=== PATIENT | female | born 1995 | race Caucasian/White ===

== ENCOUNTER 2017-01-09 19:35 | Emergency (ER) | payer OTHER ==
[~2017-01-09] VITALS: Ht 157.5 cm; Wt 52.3 kg
[2017-01-09] MEDS ORDERED: KETOROLAC 30 MG/ML VIAL (J1885) IV ONE (21:15)
[2017-01-09] MEDS ORDERED: NS 1,000 ML IV ONE (21:15)
[2017-01-09] MEDS ORDERED: ONDANSETRON 4MG/2ML VIAL (J2405) IV ONE (21:15)
[2017-01-09] MEDS ORDERED: PANTOPRAZOLE 40MG INJ (PROTONIX) (C9113) IV ONE (21:15)
[2017-01-09 21:48] LABS: BASO % 0.1 % (0.0-1.0); EOS # 0.1 K/mm3 (0.0-0.50); EOS % 0.4 % (0.0-3.0); LARGE UNSTAINED CELL # 0.1 K/mm3 (0.0-0.4); LARGE UNSTAINED CELL % 0.7 % (0.0-4.0); LYMPH # 1.1 K/mm3 (1.5-6.5); LYMPH % 5.5 % (24.0-44.0); MEAN CORPUSCULAR HEMOGLOBIN 31.4 pg (27.0-33.0); MEAN CORPUSCULAR HGB CONC 34.8 g/dl (32.0-36.5); MEAN CORPUSCULAR VOLUME 90.1 fl (80.0-96.0); MONO # 0.9 K/mm3 (0.0-0.8); NEUTROPHILS # 15.7 K/mm3 (1.8-7.7); NEUTROPHILS % 88.3 % (36.0-66.0); PLATELET COUNT, AUTOMATED 314 k/mm3 (150-450); RED CELL DISTRIBUTION WIDTH 12.6 % (11.5-14.5); WHITE BLOOD COUNT 17.8 K/mm3 (4.0-10.0)
[2017-01-09 21:55] LABS: CONTROL LINE HCG INT CTR LINE PRESENT
[2017-01-09 22:03] LABS: ALBUMIN 5.3 GM/DL (3.2-5.2); ALBUMIN/GLOBULIN RATIO 1.36 (1.00-1.93); ALKALINE PHOSPHATASE 74 U/L (45-117); ALT/SGPT 35 U/L (12-78); AMYLASE 102 U/L (25-115); ANION GAP 22 MEQ/L (8-16); AST/SGOT 27 U/L (15-37); BILIRUBIN,DIRECT 0.4 MG/DL (0.0-0.2); BILIRUBIN,TOTAL 1.5 MG/DL (0.2-1.0); BLOOD UREA NITROGEN 31 MG/DL (7-18); CALCIUM LEVEL 9.9 MG/DL (8.5-10.1); CARBON DIOXIDE LEVEL 21 MEQ/L (21-32); CHLORIDE LEVEL 96 MEQ/L (98-107); CREATININE FOR GFR 1.45 MG/DL (0.55-1.02); GLOMERULAR FILTRATION RATE 48.5 (>60); GLUCOSE, FASTING 119 MG/DL (70-105); POTASSIUM SERUM 4.1 MEQ/L (3.5-5.1); SODIUM LEVEL 139 MEQ/L (136-145); TOTAL PROTEIN 9.2 GM/DL (6.4-8.2)
[2017-01-09 23:22] LABS: METHADONE URINE NEGATIVE (NEGATIVE)
[2017-01-09] MEDS ORDERED: ZOFR4TAB3 PO (23:25)
[2017-01-09 23:29] VITALS: BP 122/68
--- NOTE | 2017-01-10 08:08 | REP ---
ABDOMEN, FLAT AND UPRIGHT; PA CHEST, TWO VIEWS: HISTORY: Abdominal pain. A small amount of air is present in small and large intestine. There are no air fluid levels or dilated loops of intestine. There is no pneumoperitoneum. The lungs are clear. IMPRESSION: Nonspecific bowel gas pattern. Signed by Gianni Looney MD 01/10/2017 08:23 A
[2017-01-10] MEDS ORDERED: ONDA4TAB6 PO (15:55)
[2017-01-10] MEDS ORDERED: ALEV220T26 PO (15:55)
== END 2017-01-09 23:31 | disposition home or self-care (01) ==
LOC: M ED 19:35
DX: K29.70 Gastritis, unspecified, without bleeding (principal); E86.0 Dehydration; R11.2 Nausea with vomiting, unspecified; E73.9 Lactose intolerance, unspecified
CPT/HCPCS: 74022; 80048; 80076; 80307; 80320; 81001; 82150; 83690; 84703; 85025; 87088; 96361; 96374; 96375; 99283; C9113; J1885; J2405

== ENCOUNTER 2017-01-10 12:24 | Observation (INO) | payer OTHER ==
[~2017-01-10] VITALS: Ht 157.5 cm; Wt 54.1 kg
[~2017-01-10 12:24] MED LIST: ZOFR4TAB3 PO
[2017-01-10] MEDS ORDERED: NS 1,000 ML IV ONE ×3 (13:45→17:45)
[2017-01-10] MEDS ORDERED: ONDANSETRON 4MG/2ML VIAL (J2405) IV ONE (13:45)
[2017-01-10] MEDS ORDERED: KETOROLAC 30 MG/ML VIAL (J1885) IV ONE (14:00)
[2017-01-10 14:11] LABS: BASO % 0.2 % (0.0-1.0); EOS % 0.2 % (0.0-3.0); LARGE UNSTAINED CELL # 0.2 K/mm3 (0.0-0.4); LARGE UNSTAINED CELL % 0.9 % (0.0-4.0); LYMPH # 1.3 K/mm3 (1.5-6.5); LYMPH % 6.1 % (24.0-44.0); MEAN CORPUSCULAR HEMOGLOBIN 31.3 pg (27.0-33.0); MEAN CORPUSCULAR HGB CONC 34.7 g/dl (32.0-36.5); MEAN CORPUSCULAR VOLUME 90.2 fl (80.0-96.0); MONO # 0.9 K/mm3 (0.0-0.8); MONO % 4.6 % (0.0-5.0); NEUTROPHILS # 16.3 K/mm3 (1.8-7.7); PLATELET COUNT, AUTOMATED 287 k/mm3 (150-450); RED CELL DISTRIBUTION WIDTH 12.6 % (11.5-14.5); WHITE BLOOD COUNT 18.5 K/mm3 (4.0-10.0)
[2017-01-10 14:58] LABS: ALBUMIN 4.8 GM/DL (3.2-5.2); ALBUMIN/GLOBULIN RATIO 1.26 (1.00-1.93); ALKALINE PHOSPHATASE 63 U/L (45-117); ALT/SGPT 34 U/L (12-78); AMYLASE 67 U/L (25-115); ANION GAP 20 MEQ/L (8-16); AST/SGOT 28 U/L (15-37); BILIRUBIN,DIRECT 0.4 MG/DL (0.0-0.2); BILIRUBIN,TOTAL 1.7 MG/DL (0.2-1.0); BLOOD UREA NITROGEN 22 MG/DL (7-18); CALCIUM LEVEL 9.5 MG/DL (8.5-10.1); CARBON DIOXIDE LEVEL 18 MEQ/L (21-32); CHLORIDE LEVEL 104 MEQ/L (98-107); GLOMERULAR FILTRATION RATE > 60.0 (>60); GLUCOSE, FASTING 86 MG/DL (70-105); POTASSIUM SERUM 3.5 MEQ/L (3.5-5.1); SODIUM LEVEL 142 MEQ/L (136-145); TOTAL PROTEIN 8.6 GM/DL (6.4-8.2)
[2017-01-10] MEDS ORDERED: ONDA4TAB6 PO (15:55)
[2017-01-10] MEDS ORDERED: ALEV220T26 PO (15:55)
[2017-01-10] MEDS ORDERED: PERCOCET 5MG/325MG TAB PO PRN (17:15)
[2017-01-10] MEDS ORDERED: GI COCKTAIL 50ML BTL(HYOSCYAMINE/MAALOX/LIDOCAINE VISCOUS)(1:3:1) PO ONE (17:45)
[2017-01-10] MEDS ORDERED: SUCRALFATE 1 GM TAB PO ONE (17:45)
[2017-01-10] MEDS ORDERED: NS 1,000 ML IV SCH (19:00)
[2017-01-10 19:06] VITALS: BP 121/76
[2017-01-10 20:00] VITALS: BP 127/77
[2017-01-10] MEDS ORDERED: MULTIVITAMIN -ADULT INJECTION 10 ML, THIAMINE INJection 100 MG, FOLIC ACID 1 MG in NS 1... IV ONE (20:00)
--- NOTE | 2017-01-10 20:01 | HPEPDOC ---
General Date of Admission Jan 10, 2017 at 17:42 Other Providers PCP: Unknown Attending Physician: ALEJANDRO MCGINNIS Chief Complaint The patient is a 21-year-old female admitted with a reason for visit of Increased Anion Gap Metabolic Acidosis. History of Present Illness Patient is a 21-year-old female with past medical history significant for lactose intolerance presents to the ER today with nausea vomiting and abdominal pain. Patient's symptoms all started on in the morning approximate 10 AM. Patient states she denied eating any unusual or do anything unusual at that time. She started vomiting with oral intake. Patient tried sipping liquids or even ice chips and nothing was able to stay down. Patient stated that the doubt patient also started occurring around same time. Pain is all over and feels pokey. It makes her want to cry. Patient describes that with vomiting she has burning from her abdomen up to the chest. Denies any pleuritic chest pain. Patient visited to seeing blood in her vomit once when she was in the ER last night. Stated only happened that one time. Did not happen since leaving the ER yesterday. Patient was given IV fluids and Zofran while in the emergency room. She was sent home on Zofran. Today patient stated that she vomited 8 times at home. Still can't keep anything down. Feels that burning in her chest and is hard to swallow. Hard to keep anything down due to the vomiting. The Zofran did not help. Patient reports also not having pooped in 3 days. Patient denies diarrhea. Patient is a tried anything for the abdominal pain. Patient only takes Aleve with monthly, for cramps. Home Medications Scheduled Pantoprazole Sodium Sesquihydr (Protonix) 40 Mg Tab, 40 MG PO DAILY Scheduled PRN (Naproxen Sodium) 220 Mg Cap, 220 MG PO Q12HP PRN for pain Ondansetron (Ondansetron Odt) 4 Mg Tab, 4 MG PO Q4H PRN for NAUSEA, (Reported) Allergies Coded Allergies: No Known Drug Allergy (Verified Allergy, Unknown, 01/09/17) Lactose Intolerance (GI) (Verified Adverse Reaction, Intermediate, 01/10/17 ) Past Medical History Medical History lactose intolerance Surgical History Tympanostomy Tubes Adenoidectomy Family History Mother: Alive Father: Alive Social History * Smoker: Denies Alcohol: occationally (patient is to drinking 5-6 beers on Thursday. Admits to drinking every couple weeks. Denies drinking more than that.) Drugs: denies (denies illicit drugs. Denies marijuana use. (parents are in the room)) Recent Travel/Sick Contacts: Denies: Recent travel, Recent sick contacts No other food allergies. No travel outside and states. Review of Symptoms Constitutional: Denies: Chills, Fever Eyes: Denies: Vision change ENT: Denies: Head Aches, Ear Pain Skin: Denies: Lesions, Jaundice Pulmonary: Denies: Dyspnea, Cough, Pleuritic Chest Pain Cardiovascular: Reports: Other Symptoms (burning pain from the abdomen through chest.) Gastrointestinal: Reports: Nausea, Vomiting, Abdominal Pain (diffuse all over. Per HPI.), Constipation (constipated for 3 days.), Denies: Diarrhea Genitourinary: Denies: Dysuria, Frequency Hematologic: Denies: Bruising, Bleeding Excessively Musculoskeletal: Denies: Neck Pain, Back Pain Neurological: Denies: Weakness, Numbness Psych: Reports: Mood Normal Physical Examination General Exam: Positive: Alert, Cooperative, Mild Distress Eye Exam: Positive: PERRLA, Conjunctiva & lids normal, EOMI, Negative: Sclera icteric, Ptosis ENT Exam: Positive: Atraumatic, Pharynx Normal, Tongue Midline, Nares Patent, Other ENT (No tonsilar exudates, some erythema. ) Neck Exam: Positive: Supple, Negative: JVD, thyromegaly Chest Exam: Positive: Clear to auscultation, Normal air movement Heart Exam: Positive: Rate Normal, Normal S1, Normal S2, Negative: Murmurs, Rubs Telemetry: Positive: No significant arrhythmia Abdomen Exam: Positive: Normal bowel sounds, Soft, Negative: Tenderness, Hepatospenomegaly Extremity Exam: Positive: Normal pulses (Radial pulse 2/4 bilaterally. ), Negative: Clubbing, Cyanosis, Edema Skin Exam: Positive: Nl turgor and temperature, Negative: Rash, Breakdown Neuro Exam: Positive: Normal Gait, Normal Speech Psych Exam: Positive: Mental status NL, Mood NL, Oriented x 3 Vital Signs Vital Signs Date Time Temp Pulse Resp B/P (MAP) Pulse Ox O2 Delivery O2 Flow Rate FiO2 01/10/17 19:06 99.0 53 16 121/76 (91) 100 Room Air Height (in): 62 Weight (kg): 52.73 BMI (kg): 21.3 Laboratory Data Labs 24H Laboratory Tests 2 01/10/17 13:38: White Blood Count 18.5H, Red Blood Count 5.08, Hemoglobin 15.9, Hematocrit 45.8 , Mean Corpuscular Volume 90.2, Mean Corpuscular Hemoglobin 31.3, Mean Corpuscular Hemoglobin Concent 34.7, Red Cell Distribution Width 12.6, Platelet Count 287, Neutrophils (%) (Auto) 88.0H, Lymphocytes (%) (Auto) 6.1L, Monocytes (%) (Auto) 4.6, Eosinophils (%) (Auto) 0.2, Basophils (%) (Auto) 0.2, Neutrophils # (Auto) 16.3H, Lymphocytes # (Auto) 1.3L, Monocytes # (Auto) 0.9H, Eosinophils # (Auto) 0.0, Basophils # (Auto) 0.0, Large Unclassified Cells % 0.9 , Large Unclassified Cells # 0.2, Anion Gap 20H, Glomerular Filtration Rate > 60.0, Calcium Level 9.5, Aspartate Amino Transf (AST/SGOT) 28, Alanine Aminotransferase (ALT/SGPT) 34, Alkaline Phosphatase 63, Total Bilirubin 1.7H, Direct Bilirubin 0.4H, Total Protein 8.6H, Albumin 4.8, Albumin/Globulin Ratio 1.26, Amylase Level 67, Lipase 210, Salicylates Level < 1.7L 01/10/17 14:07: Urine Appearance HAZY, Urine Color YELLOW, Urine pH 5.0, Urine Specific Sup[place] 1.031, Urine Protein 1+H, Urine Glucose (UA) NEGATIVE, Urine Ketones 2+H, Urine Urobilinogen 0.2, Urine Bilirubin NEGATIVE, Urine Leukocyte Esterase NEGATIVE, Urine Blood 1+H, Urine Nitrite NEGATIVE, Urine WBC (Auto) 3, Urine RBC (Auto) 1 , Urine Hyaline Casts (Auto) 0, Urine Bacteria (Auto) NEGATIVE, Urine Squamous Epithelial Cells 6, Urine Mucus (Auto) SMALL, Urine Sperm (Auto) 01/10/17 15:47: Lactic Acid Level 0.9 CBC/BMP Laboratory Tests 01/10/17 13:38 Red Blood Count 5.08, Mean Corpuscular Volume 90.2, Mean Corpuscular Hemoglobin 31.3, Mean Corpuscular Hemoglobin Concent 34.7, Red Cell Distribution Width 12.6 , Neutrophils (%) (Auto) 88.0 H, Lymphocytes (%) (Auto) 6.1 L, Monocytes (%) ( Auto) 4.6, Eosinophils (%) (Auto) 0.2, Basophils (%) (Auto) 0.2, Neutrophils # ( Auto) 16.3 H, Lymphocytes # (Auto) 1.3 L, Monocytes # (Auto) 0.9 H, Eosinophils # (Auto) 0.0, Basophils # (Auto) 0.0 Microbiology Microbiology 01/10/17 Group A Streptococcus Screen (MOHAMUD), Received Pending 01/10/17 Urine Culture, Received Pending Assessment/Plan 1. Abdominal pain/ nausea/ vomiting: Patient has normal lactic acid level. Unable to maintain oral intake at home. CT scan abdomen NAD. Starting patient on IV Zofran, Carafate and one time GI cocktail, to help with nausea, burning with vomiting. Starting patient on clear liquid diet. Starting patient on Percocet q6h for pain. Possible causes include gastritis, binge drinking, marijuana use, liver/GB pathology. 2. Metabolic acidosis with high anion gap Patient has elevated anion gap with ketones in her urine. BUN elevated. May be secondary to patient hypovolemia due to vomiting and decrease oral intake causing elevated BUN. Patient on IV NS at this time. Rechecking CMP in the morning. Monitor patient's volume status. May also be due to aspirin toxicity, checking patient's salicylate level. 3. Binge drinking Patient admitted to drinking 5-6 beers on Thursday evening. Administering patient banana bag for patient to receive some thiamine. 4. Elevated bilirubin Patient has elevated total bilirubin on labs. Ordering right upper quadrant ultrasound to rule out potential causes of her abdominal pain. 5. Leukocytosis Elevated WBC on labs. May be secondary to nausea and vomiting. Patient is afebrile. Repeat CBC in morning. Monitor clinically. 6. Marijuanna positive drug screen Cannabinoids positive on urine drug screen from previous ER visit. Patient denies use. May be contributing to patient's nausea and vomiting. Potential cyclic vomiting. May consider obtaining history of marijuana use without parents in room. Plan / VTE VTE Prophylaxis Ordered?: Yes (sequentials) GME ATTESTATION GME ATTESTATION My preceptor for this patient encounter was physically present in the building during the encounter and was fully available. As needed, all aspects of the patient interview, examination, medical decision making process, and medical care plan development were reviewed and approved by the preceptor. Preceptor is aware and concurs with the plan as stated in the body of this note and will attest to such by his/her co-signature. ATTENDING NOTE I have seen and examined the above patient and agree with the assessment and plan as documented above. LORE KING DO Jan 10, 2017 19:41 ALEJANDRO MCGINNIS Jan 23, 2017 10:52
[2017-01-10] MEDS: ONDANSETRON 4MG/2ML VIAL (J2405) IV PRN ×2 (20:10→23:59)
[2017-01-10 23:45] VITALS: BP 156/79
[2017-01-11] VITALS: BP 132/72
[2017-01-11] MEDS: SUCRALFATE 1 GM TAB PO SCH ×5 (01:34→23:23)
[2017-01-11] MEDS ORDERED: METOCLOPRAMIDE INJ 10MG/2ML VIAL (J2765) IV ONE (01:45)
[2017-01-11 04:00] VITALS: BP 149/84
[2017-01-11] MEDS: ONDANSETRON 4MG/2ML VIAL (J2405) IV PRN (04:06)
[2017-01-11] MEDS ORDERED: NS 1,000 ML IV SCH (06:00)
--- NOTE | 2017-01-11 07:41 | REP ---
CT ABDOMEN AND PELVIS WITHOUT CONTRAST: HISTORY: Abdominal pain. The liver, gallbladder, pancreas, spleen, adrenal glands and kidneys are normal in appearance. There is no mass, adenopathy or free fluid. The visualized lungs are clear. The urinary bladder and uterus are normal in appearance. There is no free fluid in the pelvis. IMPRESSION: Normal CT abdomen and pelvis. Signed by Gianni Looney MD 01/11/2017 08:11 A
[2017-01-11 08:00] VITALS: BP 134/86
[2017-01-11 08:34] LABS: MEAN CORPUSCULAR HEMOGLOBIN 32.3 pg (27.0-33.0); MEAN CORPUSCULAR HGB CONC 34.5 g/dl (32.0-36.5); MEAN CORPUSCULAR VOLUME 93.6 fl (80.0-96.0); RED CELL DISTRIBUTION WIDTH 12.6 % (11.5-14.5); WHITE BLOOD COUNT 9.6 K/mm3 (4.0-10.0)
--- NOTE | 2017-01-11 08:50 | REP ---
Chest one-view HISTORY: Infiltrate Comparison: 01/09/2017 The lungs are clear. The heart is normal in size. The pulmonary vasculature is normal in appearance. Impression: No acute disease. Signed by Gianni Looney MD 01/11/2017 08:41 A
[2017-01-11 08:52] LABS: ALBUMIN 3.4 GM/DL (3.2-5.2); ALBUMIN/GLOBULIN RATIO 1.21 (1.00-1.93); ALKALINE PHOSPHATASE 42 U/L (45-117); ALT/SGPT 25 U/L (12-78); ANION GAP 13 MEQ/L (8-16); AST/SGOT 17 U/L (15-37); BILIRUBIN,TOTAL 1.1 MG/DL (0.2-1.0); BLOOD UREA NITROGEN 12 MG/DL (7-18); CARBON DIOXIDE LEVEL 22 MEQ/L (21-32); CHLORIDE LEVEL 113 MEQ/L (98-107); CREATININE FOR GFR 0.48 MG/DL (0.55-1.02); GLOMERULAR FILTRATION RATE > 60.0 (>60); GLUCOSE, FASTING 76 MG/DL (70-105); MAGNESIUM LEVEL 2.2 MG/DL (1.8-2.4); SODIUM LEVEL 148 MEQ/L (136-145); TOTAL PROTEIN 6.2 GM/DL (6.4-8.2)
[2017-01-11 09:13] LABS: CALCIUM LEVEL 7.7 MG/DL (8.5-10.1)
--- NOTE | 2017-01-11 09:18 | REP ---
LIMITED ABDOMEN ULTRASOUND: HISTORY: Abdominal pain. There are no filling defects in the gallbladder. The gallbladder wall measures 2.7 mm. The common bile duct measures 2.3 mm. The liver and pancreas are normal in echogenicity. The right kidney measures 5.8 cm in transverse by 3.8 cm in AP by 10.3 cm in cephalocaudal dimensions. There is no hydronephrosis or mass. IMPRESSION: Normal abdominal ultrasound. Signed by Gianni Looney MD 01/11/2017 09:30 A
[2017-01-11] MEDS ORDERED: D5W/0.45% SODIUM CHLORIDE 1,000 ML IV SCH (11:00)
[2017-01-11] MEDS ORDERED: POTASSIUM CHLORIDE 10 MEQ SR TABLET PO ONE ×2 (11:00→12:30)
[2017-01-11] MEDS ORDERED: CALCIUM GLUCONATE 1,000 MG in D5W MINI-BAG PLUS 100 ML IV ONE (12:00)
--- NOTE | 2017-01-11 14:12 | IPNPDOC ---
Text Note Date of Service The patient was seen on 01/11/17. NOTE Subjective: Patient states nausea/vomiting/abdominal pain has resolved. Objective: Vitals: (see below) General: No acute distress, laying comfortably in bed. HEENT: Moist mucous membranes. Neck: No JVD or lymphadenopathy Cardiac: RRR, No murmurs Pulm: Clear to auscultation b/l. No wheezing, rhonchi Abd: NT/ND + BS Ext: No edema or cyanosis Labs (see below) Images: CT Abd/pelvis 01/11/17 IMPRESSION:Normal CT abdomen and pelvis. Abdominal ultrasound 01/11/17 IMPRESSION: Normal abdominal ultrasound. Chest x-ray 01/11/17 Impression: No acute disease. Assessment/Plan 1. Intractable abdominal pain/nausea/vomiting- likely secondary to alcohol use as well as marijuana use. Resolved. Patient tolerating clears and will advance diet as tolerated. If abdominal pain persists or recurs, we will need to address possible endoscopy. 2. Metabolic acidosis with anion gap - resolved. Likely secondary to alcohol intake. Continue IV fluids. 3. Leukocytosis- resolved. Likely secondary to the above. 4. Elevated bilirubin- resolved likely secondary to the above. Abdominal ultrasound negative for acute findings. 5. Marijuana/alcohol intake- cessation counseling 6. Electrolyte abnormalities- replaced. We'll continue to monitor. Continue IV fluids. DVT prophy: Out of bed and ambulate Plan to discharge in the next 24 hours if continues to improve and tolerate a regular diet. VS,Fishbone, I+O VS, Fishbone, I+O Laboratory Tests 01/11/17 06:38 Red Blood Count 3.96 L, Mean Corpuscular Volume 93.6, Mean Corpuscular Hemoglobin 32.3, Mean Corpuscular Hemoglobin Concent 34.5, Red Cell Distribution Width 12.6, Calcium Level 7.7 #L, Aspartate Amino Transf (AST/SGOT ) 17, Alanine Aminotransferase (ALT/SGPT) 25, Alkaline Phosphatase 42 L, Total Bilirubin 1.1 H, Total Protein 6.2 #L, Albumin 3.4 # Vital Signs Date Time Temp Pulse Resp B/P (MAP) Pulse Ox O2 Delivery O2 Flow Rate FiO2 01/11/17 08:00 99.4 64 18 134/86 (102) 100 Room Air I&O- Last 24 Hours up to 6 AM 01/11/17 05:59 Intake Total 3210 ml Output Total 350 ml Balance 2860 ml WILBUR OSPINA MD Jan 11, 2017 14:12
[2017-01-11 16:00] VITALS: BP 144/85
[2017-01-11 20:15] VITALS: BP 149/86
[2017-01-12 00:14] VITALS: BP 129/75
[2017-01-12] MEDS: ONDANSETRON 4MG/2ML VIAL (J2405) IV PRN (01:59)
[2017-01-12 06:53] LABS: MEAN CORPUSCULAR HEMOGLOBIN 31.6 pg (27.0-33.0); MEAN CORPUSCULAR HGB CONC 35.2 g/dl (32.0-36.5); MEAN CORPUSCULAR VOLUME 89.6 fl (80.0-96.0); RED CELL DISTRIBUTION WIDTH 11.9 % (11.5-14.5); WHITE BLOOD COUNT 7.3 K/mm3 (4.0-10.0)
[2017-01-12] MEDS: SUCRALFATE 1 GM TAB PO SCH (06:54)
[2017-01-12 07:11] LABS: ALBUMIN 3.4 GM/DL (3.2-5.2); ALBUMIN/GLOBULIN RATIO 1.13 (1.00-1.93); ALKALINE PHOSPHATASE 48 U/L (45-117); ALT/SGPT 114 U/L (12-78); ANION GAP 7 MEQ/L (8-16); AST/SGOT 80 U/L (15-37); BILIRUBIN,TOTAL 1.4 MG/DL (0.2-1.0); BLOOD UREA NITROGEN 6 MG/DL (7-18); CALCIUM LEVEL 8.4 MG/DL (8.5-10.1); CARBON DIOXIDE LEVEL 26 MEQ/L (21-32); CHLORIDE LEVEL 106 MEQ/L (98-107); CREATININE FOR GFR 0.43 MG/DL (0.55-1.02); GLOMERULAR FILTRATION RATE > 60.0 (>60); GLUCOSE, FASTING 87 MG/DL (70-105); MAGNESIUM LEVEL 1.8 MG/DL (1.8-2.4); POTASSIUM SERUM 3.2 MEQ/L (3.5-5.1); SODIUM LEVEL 139 MEQ/L (136-145); TOTAL PROTEIN 6.4 GM/DL (6.4-8.2)
[2017-01-12] MEDS ORDERED: POTASSIUM CHLORIDE 10 MEQ SR TABLET PO ONE (07:30)
[2017-01-12 08:00] VITALS: BP 112/71
[2017-01-12] MEDS ORDERED: PROT1TAB2 PO (09:05)
[2017-01-12 09:33] LABS: INR 1.06
[2017-01-12 12:04] LABS: HEPATITIS B SURFACE ANTIBODY NEGATIVE (POSITIVE)
--- NOTE | 2017-01-12 15:52 | DS.PDOC ---
Discharge Summary General Date of Admission Jan 10, 2017 at 17:42 Date of Discharge 01/12/17 Attending Physician: WILBUR OSPINA MD Discharge Summary PROCEDURES PERFORMED DURING STAY: None. ADMITTING/DISCHARGE DIAGNOSES: 1. Intractable nausea and vomiting/abdominal pain 2. Metabolic acidosis with anion gap resolved 3. leukocytosis resolved 4. Elevated LFT/bilirubin 5. Marijuana/alcohol intake 6. Electrolyte abnormalities COMPLICATIONS/CHIEF COMPLAINT: Nausea/vomiting/abdominal pain HISTORY OF PRESENT ILLNESS/HOSPITAL COURSE: This is a 21-year-old female past medical history of marijuana/alcohol use who presents complaining of nausea/vomiting/abdominal pain. Patient had recently used marijuana as well as drank more alcohol than she used to, 6 beers, after which she started to have intractable nausea/vomiting/ abdominal pain. The patient was also severely dehydrated with metabolic acidosis, leukocytosis, which have resolved with hydration. Patient's symptoms have completely resolved. She is ready to be discharged home. It was noted that she patient also had elevations of her LFTs/bilirubin with a normal ultrasound of the abdomen/CAT scan of the abdomen and pelvis. Patient was given a prescription for follow-up of these levels with results to be sent to PCP. Patient was also advised to avoid alcohol and marijuana. . DISCHARGE MEDICATIONS: Please see below. ALLERGIES: Please see below. PHYSICAL EXAMINATION ON DISCHARGE: Vitals: (see below) General: No acute distress, laying comfortably in bed. HEENT: Moist mucous membranes. Neck: No JVD or lymphadenopathy Cardiac: RRR, No murmurs Pulm: Clear to auscultation b/l. No wheezing, rhonchi Abd: NT/ND + BS Ext: No edema or cyanosis LABORATORY DATA: Please see below. IMAGING: CT Abd/pelvis 01/11/17 IMPRESSION:Normal CT abdomen and pelvis. Abdominal ultrasound 01/11/17 IMPRESSION: Normal abdominal ultrasound. Chest x-ray 01/11/17 Impression: No acute disease. PROGNOSIS: Good ACTIVITY: As tolerated. DIET: As tolerated DISCHARGE PLAN/DISPOSITION: Home DISCHARGE INSTRUCTIONS: 1. Follow-up with PCP in 1-2 weeks. CMP/PTT/INR/PTT prescription given to patient with results to be sent to PCP. Return to ED if symptoms worsen. DISCHARGE CONDITION: Stable. TIME SPENT ON DISCHARGE: Greater than 30 minutes. Vital Signs/I&Os Vital Signs Date Time Temp Pulse Resp B/P (MAP) Pulse Ox O2 Delivery O2 Flow Rate FiO2 01/12/17 08:00 97.7 68 18 112/71 (85) 100 Room Air I&O- Last 24 Hours up to 6 AM 01/12/17 06:00 Intake Total 2020 ml Output Total 450 ml Balance 1570 ml Laboratory Data Labs 24H Laboratory Tests 2 01/12/17 06:23: Anion Gap 7L, Glomerular Filtration Rate > 60.0, Blood Urea Nitrogen 6L, Creatinine 0.43L, Sodium Level 139#, Potassium Level 3.2L, Chloride Level 106, Carbon Dioxide Level 26, Calcium Level 8.4L, Aspartate Amino Transf (AST/SGOT) 80H, Alanine Aminotransferase (ALT/SGPT) 114H, Alkaline Phosphatase 48, Total Bilirubin 1.4H, Total Protein 6.4, Albumin 3.4, Magnesium Level 1.8, Albumin/ Globulin Ratio 1.13 01/12/17 08:12: Prothrombin Time 13.9, Prothromb Time International Ratio 1.06, Activated Partial Thromboplast Time 26.6L, Hepatitis A IgM Antibody NEGATIVE, Hepatitis B Surface Antigen NEGATIVE, Hepatitis B Surface Antibody NEGATIVE, Hepatitis B Core IgM Antibody NEGATIVE CBC/BMP Laboratory Tests 01/12/17 06:23 Red Blood Count 4.25, Mean Corpuscular Volume 89.6, Mean Corpuscular Hemoglobin 31.6, Mean Corpuscular Hemoglobin Concent 35.2, Red Cell Distribution Width 11.9 , Calcium Level 8.4 L, Aspartate Amino Transf (AST/SGOT) 80 H, Alanine Aminotransferase (ALT/SGPT) 114 H, Alkaline Phosphatase 48, Total Bilirubin 1.4 H, Total Protein 6.4, Albumin 3.4 Microbiology Microbiology 01/10/17 Group A Streptococcus Screen (MOHAMUD) - Final, Complete 01/10/17 Urine Culture - Final, Complete Discharge Medications Scheduled Pantoprazole Sodium Sesquihydr (Protonix) 40 Mg Tab, 40 MG PO DAILY Scheduled PRN Naproxen Sodium (Aleve) 220 Mg Tab, 220 MG PO for PAIN, (Reported) Ondansetron (Ondansetron Odt) 4 Mg Tab, 4 MG PO Q4H PRN for NAUSEA, (Reported) Allergies Coded Allergies: No Known Drug Allergy (Verified Allergy, Unknown, 01/09/17) Lactose Intolerance (GI) (Verified Adverse Reaction, Intermediate, 01/10/17 ) WILBUR OSPINA MD Jan 12, 2017 15:52
[2017-01-12] MEDS ORDERED: NAPR220C PO (18:33)
[2017-01-14 10:12] LABS: HEPATITIS C QUANTITATION HCV Not Detected IU/mL (.)
== END 2017-01-12 13:00 | disposition home or self-care (01) ==
LOC: M ED 12:24 → M ED INP 17:42 → M PED 19:19
PROVIDERS: ADMIT Hospitalist; ATTEND Internal Medicine
DX: E87.2 Acidosis (principal); D72.829 Elevated white blood cell count, unspecified; E80.7 Disorder of bilirubin metabolism, unspecified; R11.2 Nausea with vomiting, unspecified; R10.9 Unspecified abdominal pain; F12.90 Cannabis use, unspecified, uncomplicated; Z72.89 Other problems related to lifestyle; E87.8 Other disorders of electrolyte and fluid balance, not elsewhere classified; E86.0 Dehydration; Z91.011 Allergy to milk products; Z79.899 Other long term (current) drug therapy
CPT/HCPCS: 36415; 71010; 74176; 76705; 80048; 80053; 80076; 80329; 81001; 82150; 83605; 83690; 83735; 83930; 83935; 85025; 85027; 85610; 85730; 86704; 86705; 86706; 86709; 87086; 87340; 87522; 87880; 96361; 96374; 96375; 96376; 99284; J0610; J1885; J2405; J2765; J3411

== ENCOUNTER 2017-12-26 21:29 | Emergency (ER) | payer OTHER ==
[2017-12-26] MEDS: NS 1,000 ML IV (22:45)
[2017-12-26 22:52] LABS: BASO % 0.2 % (0.0-1.0); HEMATOCRIT 46.6 % (36.0-47.0); HEMOGLOBIN 15.9 g/dl (12.0-15.5); IMMATURE GRANULOCYTE % 0.6 % (0-3.0); LYMPH # 0.9 10^3/uL (1.5-6.5); LYMPH % 5.1 % (24.0-44.0); MEAN CORPUSCULAR HEMOGLOBIN 31.2 pg (27.0-33.0); MEAN CORPUSCULAR HGB CONC 34.1 g/dl (32.0-36.5); MEAN CORPUSCULAR VOLUME 91.6 fl (80.0-96.0); MONO # 0.5 10^3/uL (0.0-0.8); MONO % 2.5 % (0.0-5.0); NEUTROPHILS # 16.8 10^3/uL (1.8-7.7); NEUTROPHILS % 91.6 % (36.0-66.0); PLATELET COUNT, AUTOMATED 317 10^3/uL (150-450); RED BLOOD COUNT 5.09 10^6/uL (4.00-5.40); RED CELL DISTRIBUTION WIDTH 12.5 % (11.5-14.5); WHITE BLOOD COUNT 18.3 10^3/uL (4.0-10.0)
[2017-12-26] MEDS: ONDANSETRON 4MG/2ML VIAL (J2405) IV (23:00)
[2017-12-26 23:07] LABS: CONTROL LINE HCG INT CTR LINE PRESENT; HCG, SERUM QUALITATIVE NEGATIVE (NEGATIVE)
[2017-12-26 23:13] LABS: AMPHETAMINES LEVEL URINE NEGATIVE (NEGATIVE); BARBITURATES URINE NEGATIVE (NEGATIVE); BENZODIAZEPINES URINE NEGATIVE (NEGATIVE); CANNABINOIDS URINE POSITIVE (NEGATIVE); COCAINE METABOLITE URINE NEGATIVE (NEGATIVE); METHADONE URINE NEGATIVE (NEGATIVE); OPIATES URINE NEGATIVE (NEGATIVE); PHENCYCLIDINE URINE NEGATIVE (NEGATIVE)
[2017-12-26 23:15] LABS: ALBUMIN 4.9 GM/DL (3.2-5.2); ALBUMIN/GLOBULIN RATIO 1.26 (1.00-1.93); ALKALINE PHOSPHATASE 88 U/L (45-117); ALT/SGPT 55 U/L (12-78); AMYLASE 49 U/L (25-115); ANION GAP 17 MEQ/L (8-16); AST/SGOT 31 U/L (7-37); BILIRUBIN,DIRECT 0.3 MG/DL (0.0-0.2); BILIRUBIN,TOTAL 1.4 MG/DL (0.2-1.0); BLOOD UREA NITROGEN 20 MG/DL (7-18); CALCIUM LEVEL 9.7 MG/DL (8.5-10.1); CARBON DIOXIDE LEVEL 23 MEQ/L (21-32); CHLORIDE LEVEL 102 MEQ/L (98-107); CREATININE FOR GFR 1.28 MG/DL (0.55-1.30); GLOMERULAR FILTRATION RATE 55.5 (>60); GLUCOSE, FASTING 134 MG/DL (70-100); LIPASE 45 U/L (73-393); POTASSIUM SERUM 3.6 MEQ/L (3.5-5.1); SODIUM LEVEL 142 MEQ/L (136-145); TOTAL PROTEIN 8.8 GM/DL (6.4-8.2)
[2017-12-26] MEDS: METOCLOPRAMIDE INJ 10MG/2ML VIAL (J2765) IV (23:40)
[2017-12-27] MEDS ORDERED: ISOVUE-370 76% 100ML VIAL (Q9967) As Ordered (00:04)
[2017-12-27 00:50] LABS: KETONE, URINE AUTO RFX 2+ mg/dL (NEGATIVE); LEUKOCYTE ESTERASE UR AUTO RFX NEGATIVE (NEGATIVE); MUCUS, URINE RFX SMALL (NEGATIVE); NITRITE, URINE AUTO RFX NEGATIVE (NEGATIVE); RBC, URINE AUTO RFX 2 /HPF (0-3); SQUAM EPITHELIAL CELL UR AURFX 3 /HPF (0-6); TRANSITIONAL EPITHELIAL AU RFX <1 /HPF; WBC, URINE AUTO RFX 2 /HPF (0-3)
== END 2017-12-27 01:32 | disposition home or self-care (01) ==
LOC: M ED 12-27 01:32
DX: R11.2 Nausea with vomiting, unspecified (principal); R10.9 Unspecified abdominal pain; K21.9 Gastro-esophageal reflux disease without esophagitis; E87.2 Acidosis; Z87.19 Personal history of other diseases of the digestive system; Z87.440 Personal history of urinary (tract) infections; E73.9 Lactose intolerance, unspecified
CPT/HCPCS: J2405

== ENCOUNTER 2018-10-30 23:29 | Emergency (ER) | payer OTHER ==
[~2018-10-30] VITALS: Ht 157.5 cm; Wt 59.1 kg
[~2018-10-30 23:29] MED LIST changes: +ALEV220T26 PO; +NAPR220C PO; +ONDA4TAB6 PO; +PROT1TAB2 PO; +ZOFR4TAB14 PO; -ZOFR4TAB3 PO
[2018-10-31] MEDS ORDERED: NS 1,000 ML IV ONE (01:00)
[2018-10-31] MEDS ORDERED: KETOROLAC 30 MG/ML VIAL (J1885) IV ONE (01:00)
[2018-10-31] MEDS ORDERED: ONDANSETRON 4MG/2ML VIAL (J2405) IV ONE (01:00)
[2018-10-31 01:28] LABS: BASO % 0.2 % (0.0-1.0); HEMATOCRIT 44.4 % (36.0-47.0); HEMOGLOBIN 15.2 g/dl (12.0-15.5); LYMPH # 1.1 10^3/uL (1.5-6.5); LYMPH % 8.6 % (24.0-44.0); MEAN CORPUSCULAR HEMOGLOBIN 31.6 pg (27.0-33.0); MEAN CORPUSCULAR HGB CONC 34.2 g/dl (32.0-36.5); MEAN CORPUSCULAR VOLUME 92.3 fl (80.0-96.0); MONO # 0.4 10^3/uL (0.0-0.8); MONO % 3.2 % (0.0-5.0); NEUTROPHILS # 10.7 10^3/uL (1.8-7.7); NEUTROPHILS % 87.8 % (36.0-66.0); PLATELET COUNT, AUTOMATED 277 10^3/uL (150-450); RED BLOOD COUNT 4.81 10^6/uL (4.00-5.40); WHITE BLOOD COUNT 12.2 10^3/uL (4.0-10.0)
[2018-10-31 01:52] LABS: ALBUMIN 4.3 GM/DL (3.2-5.2); ALT/SGPT 33 U/L (12-78); BILIRUBIN,DIRECT 0.3 MG/DL (0.0-0.2); BILIRUBIN,TOTAL 1.1 MG/DL (0.2-1.0); BLOOD UREA NITROGEN 15 MG/DL (7-18); CALCIUM LEVEL 9.1 MG/DL (8.5-10.1); CARBON DIOXIDE LEVEL 25 MEQ/L (21-32); CHLORIDE LEVEL 106 MEQ/L (98-107); CREATININE FOR GFR 0.84 MG/DL (0.55-1.30); GLOMERULAR FILTRATION RATE > 60.0 (>60); GLUCOSE, FASTING 117 MG/DL (70-100); LIPASE 54 U/L (73-393); POTASSIUM SERUM 3.5 MEQ/L (3.5-5.1); SODIUM LEVEL 142 MEQ/L (136-145)
[2018-10-31] MEDS ORDERED: METAL LOCK LOOP XX ONE (02:01)
[2018-10-31] MEDS ORDERED: ZOFR4TAB16 PO (02:53)
[2018-10-31] MEDS ORDERED: ONDANSETRON 4 MG ORAL DISINTEGRATING TAB (Q0162 PER 1MG) PO ONE (03:00)
[2018-10-31 03:02] VITALS: BP 116/60
--- NOTE | 2018-10-31 03:46 | REPVR ---
EXAM: US Abdomen Limited, Right Upper Quadrant EXAM DATE/TIME: 10/31/2018 2:31 AM CLINICAL HISTORY: 23 years old, female; Signs and symptoms; Vomiting; Additional info: Vomiting/elevtaed bilirubin TECHNIQUE: Imaging protocol: Real-time ultrasound of the abdomen with image documentation. Examination was focused on the right upper quadrant. COMPARISON: Abdomen, limited US 01/10/2017 5:49 PM FINDINGS: Liver: Normal. No masses. Gallbladder: Normal. No gallstones. There is no gallbladder wall thickening. Common bile duct: Normal. No stones. No dilation. Pancreas: Visualized pancreas is unremarkable. Right kidney: Normal. No mass. No hydronephrosis. IMPRESSION: No acute findings. Electronically signed by: Tracy Jonas On 10/31/2018 03:45:58 AM
[2018-11-01] MEDS ORDERED: ZOFR4TAB16 PO (11:53)
== END 2018-10-31 03:00 | disposition home or self-care (01) ==
LOC: M ED 23:29
DX: R11.2 Nausea with vomiting, unspecified (principal); K21.9 Gastro-esophageal reflux disease without esophagitis; Z87.19 Personal history of other diseases of the digestive system
CPT/HCPCS: 36415; 76705; 80048; 80076; 81001; 83690; 84702; 85025; 96361; 96374; 96375; 99284; J1885; J2405; Q0162

== ENCOUNTER 2018-11-01 06:46 | Observation (INO) | payer OTHER ==
[~2018-11-01] VITALS: Ht 157.5 cm; Wt 61.9 kg
[~2018-11-01 06:46] MED LIST changes: +ZOFR4TAB16 PO
[2018-11-01 07:20] LABS: BASO # 0.1 10^3/uL (0.0-0.2); BASO % 0.5 % (0.0-1.0); EOS # 0.1 10^3/uL (0.0-0.50); EOS % 0.5 % (0.0-3.0); HEMATOCRIT 43.3 % (36.0-47.0); HEMOGLOBIN 14.9 g/dl (12.0-15.5); LYMPH # 2.6 10^3/uL (1.5-6.5); LYMPH % 20.3 % (24.0-44.0); MEAN CORPUSCULAR HEMOGLOBIN 31.8 pg (27.0-33.0); MEAN CORPUSCULAR HGB CONC 34.4 g/dl (32.0-36.5); MEAN CORPUSCULAR VOLUME 92.5 fl (80.0-96.0); MONO # 0.9 10^3/uL (0.0-0.8); MONO % 6.9 % (0.0-5.0); NEUTROPHILS % 71.4 % (36.0-66.0); PLATELET COUNT, AUTOMATED 235 10^3/uL (150-450); RED BLOOD COUNT 4.68 10^6/uL (4.00-5.40); WHITE BLOOD COUNT 12.6 10^3/uL (4.0-10.0)
[2018-11-01 07:53] LABS: HCG, SERUM QUALITATIVE NEGATIVE (NEGATIVE)
[2018-11-01 08:23] LABS: ALBUMIN 4.2 GM/DL (3.2-5.2); ALT/SGPT 34 U/L (12-78); BILIRUBIN,DIRECT 0.4 MG/DL (0.0-0.2); BILIRUBIN,TOTAL 1.4 MG/DL (0.2-1.0); BLOOD UREA NITROGEN 11 MG/DL (7-18); CALCIUM LEVEL 9.5 MG/DL (8.5-10.1); CARBON DIOXIDE LEVEL 28 MEQ/L (21-32); CHLORIDE LEVEL 105 MEQ/L (98-107); CREATININE FOR GFR 0.76 MG/DL (0.55-1.30); GLOMERULAR FILTRATION RATE > 60.0 (>60); GLUCOSE, FASTING 102 MG/DL (70-100); LIPASE 59 U/L (73-393); POTASSIUM SERUM 2.9 MEQ/L (3.5-5.1); SODIUM LEVEL 141 MEQ/L (136-145); TOTAL PROTEIN 7.5 GM/DL (6.4-8.2)
[2018-11-01] MEDS ORDERED: POTASSIUM CHLORIDE 10 MEQ SR TABLET PO ONE (08:45)
[2018-11-01] MEDS ORDERED: ONDANSETRON 4MG/2ML VIAL (J2405) IV ONE (08:45)
[2018-11-01] MEDS ORDERED: NS 1,000 ML IV ONE (08:45)
[2018-11-01] MEDS ORDERED: METOCLOPRAMIDE INJ 10MG/2ML VIAL (J2765) IV ONE (11:45)
[2018-11-01] MEDS ORDERED: ZOFR4TAB16 PO (11:53)
[2018-11-01] MEDS ORDERED: ACETAMINOPHEN TAB 650MG DOSE (2X325MG) PO PRN (13:00)
--- NOTE | 2018-11-01 13:04 | HPEPDOC ---
[facility] Medical History & Physical Date of Admission Nov 01, 2018 Date of Service: Nov 01, 2018 History and Physical CHIEF COMPLAINT: Nausea HISTORY OF PRESENT ILLNESS: Patient is a 23-year-old female with no significant past medical history presented to ER with complaints of nausea and vomiting for the past several days. Patient stated that she started feeling sick on Thursday and vomited all day leading her to go into the ER. Her symptoms improved with Zofran initially and was doing fine after discharge until she started having nausea again. In ER, she was found to be hypokalemic. She was resuscitate with IVF and IV Zofran with improvement. Denies any fever, chills, diarrhea, or any other complaints apart from abdomen being sore from vomiting. She ate slovenian food thursday night, unsure if that is a contributing factor. No sick contacts. PAST MEDICAL HISTORY: Refer to [facility] PAST SURGICAL HISTORY: ENT surgery for b/l ear as a child SOCIAL HISTORY: Denies tobacco, alcohol or illicit drug use. FAMILY HISTORY: None she knows about ALLERGIES: Please see below. REVIEW OF SYSTEMS: 10 point review of system negative except as stated in [facility] HOME MEDICATIONS: Please see below. PHYSICAL EXAMINATION: General: No acute distress, Alert Eyes: Normal sclera, EOMI, RIKKI HENT: Atraumatic, neck supple, moist mucous membranes Cardiovascular: Normal rate, normal rhythm. No murmurs appreciated. Pulmonary: Clear to auscultation b/l, no wheezing GI: Soft, nontender (mildly sore but not worse with palpation), nondistended Skin: Warm and dry Neuro: CN grossly intact. No focal deficits. Strengths equal b/l. Psych: oriented x 3 LABORATORY DATA: See below. MICROBIOLOGY: Please see below. ASSESSMENT AND PLAN: 1. Gastritis - Likely viral, possibly from sl[place]ian fast food? - No diarrhea however. Normal BM, no blood in stool. - IVF support. IV Zofran. DVT ppx: SCD Code status: Full code Vital Signs Vital Signs Date Time Temp Pulse Resp B/P (MAP) Pulse Ox O2 Delivery O2 Flow Rate FiO2 11/01/18 11:51 11/01/18 11:46 48 99 11/01/18 06:46 97.6 16 Room Air Laboratory Data Labs 24H Laboratory Tests 2 11/01/18 06:57: Immature Granulocyte % (Auto) 0.4, White Blood Count 12.6H, Red Blood Count 4.68, Hemoglobin 14.9, Hematocrit 43.3, Mean Corpuscular Volume 92.5, Mean Corpuscular Hemoglobin 31.8, Mean Corpuscular Hemoglobin Concent 34.4, Red Cell Distribution Width 12.9, Platelet Count 235, Neutrophils (%) (Auto) 71.4H, Lymphocytes (%) (Auto) 20.3L, Monocytes (%) (Auto) 6.9H, Eosinophils (%) (Auto) 0.5, Basophils (%) (Auto) 0.5, Neutrophils # (Auto) 9.0H, Lymphocytes # (Auto) 2.6, Monocytes # (Auto) 0.9H, Eosinophils # (Auto) 0.1, Basophils # (Auto) 0.1, Nucleated Red Blood Cells % (auto) 0.0, Anion Gap 8, Glomerular Filtration Rate > 60.0, Calcium Level 9.5, Aspartate Amino Transf (AST/SGOT) 26, Alanine Aminotransferase (ALT/SGPT) 34, Alkaline Phosphatase 71, Total Bilirubin 1.4H, Direct Bilirubin 0.4H, Total Protein 7.5, Albumin 4.2, Albumin/Globulin Ratio 1.27, Lipase 59L, Human Chorionic Gonadotropin, Qual NEGATIVE 11/01/18 07:18: Urine Color VIKTORIYA, Urine Appearance HAZY, Urine pH 5.0, Urine Specific Many 1.033, Urine Protein 1+H, Urine Glucose (UA) NEGATIVE, Urine Ketones 2+H, Urine Blood NEGATIVE, Urine Nitrite NEGATIVE, Urine Bilirubin NEGATIVE, Urine Urobilinogen 2.0H, Urine Leukocyte Esterase NEGATIVE, Urine WBC (Auto) 4H, Urine RBC (Auto) 3, Urine Hyaline Casts (Auto) 0, Urine Bacteria (Auto) NEGATIVE, Urine Squamous Epithelial Cells 8, Urine Mucus (Auto) SMALL, Urine Sperm (Auto) CBC/BMP Laboratory Tests 11/01/18 06:57 Red Blood Count 4.68, Mean Corpuscular Volume 92.5, Mean Corpuscular Hemoglobin 31.8, Mean Corpuscular Hemoglobin Concent 34.4, Red Cell Distribution Width 12.9, Neutrophils (%) (Auto) 71.4 H, Lymphocytes (%) (Auto) 20.3 L, Monocytes (%) (Auto) 6.9 H, Eosinophils (%) (Auto) 0.5, Basophils (%) (Auto) 0.5, Neutrophils # (Auto) 9.0 H, Lymphocytes # (Auto) 2.6, Monocytes # (Auto) 0.9 H, Eosinophils # (Auto) 0.1, Basophils # (Auto) 0.1 11/01/18 10:23 Home Medications Scheduled PRN Ondansetron HCl (Zofran) 4 Mg Tablet, 4 MG PO Q6H PRN for NAUSEA OR VOMITING Allergies Coded Allergies: lactose (Verified Allergy, Unknown, 11/01/18) A-FIB/CHADSVASC A-FIB History Current/History of A-Fib/PAF?: No FARIDA MANNING MD Nov 01, 2018 13:04
[2018-11-01 14:50] VITALS: BP 153/83
[2018-11-01] MEDS: ONDANSETRON 4MG/2ML VIAL (J2405) IV PRN (15:27)
[2018-11-01 16:00] VITALS: BP 131/71
[2018-11-01] MEDS: NS 1,000 ML IV SCH (16:19)
[2018-11-01 20:00] VITALS: BP 130/88
[2018-11-01] MEDS ORDERED: PROMETHAZINE INJ 25 MG/ML VIAL (J2550) IV ONE (20:30)
[2018-11-02] VITALS: BP 124/80
[2018-11-02] MEDS: NS 1,000 ML IV SCH ×3 (01:30→20:00)
[2018-11-02] MEDS: ONDANSETRON 4MG/2ML VIAL (J2405) IV PRN ×4 (01:31→20:00)
--- NOTE | 2018-11-02 05:44 | ECGEPIP ---
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
[2018-11-02 07:01] LABS: HEMATOCRIT 36.6 % (36.0-47.0); MEAN CORPUSCULAR HEMOGLOBIN 31.8 pg (27.0-33.0); MEAN CORPUSCULAR HGB CONC 33.6 g/dl (32.0-36.5); MEAN CORPUSCULAR VOLUME 94.6 fl (80.0-96.0); PLATELET COUNT, AUTOMATED 159 10^3/uL (150-450); RED BLOOD COUNT 3.87 10^6/uL (4.00-5.40); WHITE BLOOD COUNT 7.4 10^3/uL (4.0-10.0)
[2018-11-02 07:03] LABS: HEMOGLOBIN 12.3 g/dl (12.0-15.5)
[2018-11-02 07:31] LABS: BLOOD UREA NITROGEN 10 MG/DL (7-18); CALCIUM LEVEL 8.1 MG/DL (8.5-10.1); CARBON DIOXIDE LEVEL 25 MEQ/L (21-32); CHLORIDE LEVEL 112 MEQ/L (98-107); GLOMERULAR FILTRATION RATE > 60.0 (>60); GLUCOSE, FASTING 80 MG/DL (70-100); POTASSIUM SERUM 2.9 MEQ/L (3.5-5.1); SODIUM LEVEL 145 MEQ/L (136-145)
[2018-11-02 08:00] VITALS: BP 139/83
[2018-11-02] MEDS: POTASSIUM CHLORIDE 10 MEQ SR TABLET PO SCH (09:21)
[2018-11-02 12:00] VITALS: BP 139/83
[2018-11-02] MEDS ORDERED: POTASSIUM CHLORIDE 10 MEQ SR TABLET PO ONE (12:00)
[2018-11-02 16:00] VITALS: BP 141/86
--- NOTE | 2018-11-02 17:30 | IPNPDOC ---
Date Seen The patient was seen on 11/02/18. Progress Note SUBJECTIVE: Patient reported feeling better today but still weak. Has been tolerating diet. Patient was caught pouring water into her emesis bag overnight? Unsure why patient may be feigning symptoms but did not mention that this morning. Hx of Bulemia noted from staff. OBJECTIVE PHYSICAL EXAMINATION: VITAL SIGNS: Please see below. General: No acute distress, Alert Eyes: Normal sclera, EOMI, RIKKI HENT: Atraumatic, neck supple, moist mucous membranes Cardiovascular: Normal rate, normal rhythm. No murmurs appreciated. Pulmonary: Clear to auscultation b/l, no wheezing GI: Soft, nontender (mildly sore but not worse with palpation), nondistended Skin: Warm and dry Neuro: CN grossly intact. No focal deficits. Strengths equal b/l. Psych: oriented x 3 LABORATORY DATA, IMAGING STUDIES, MICROBIOLOGY: Please see below. ASSESSMENT AND PLAN: 1. Gastritis vs induce vomiting - Likely viral, possibly from [place] fast food? vs. Induced vomiting. - Noted to have history of bulimia? - No diarrhea however. Normal BM, no blood in stool. - IVF support. IV Zofran. - Advance diet with plan to d/c tomorrow. 2. Hypokalemia - From vomiting. - Monitor daily and replete. DVT ppx: SCD Code status: Full code VS, I&O, 24H, Fishbone Vital Signs/I&O Vital Signs Date Time Temp Pulse Resp B/P (MAP) Pulse Ox O2 Delivery O2 Flow Rate FiO2 11/02/18 16:00 98.2 67 18 141/86 (104) 100 11/01/18 06:46 Room Air I&O- Last 24 Hours up to 6 AM 11/02/18 06:00 Intake Total 3320 ml Output Total 2700 ml Balance 620 ml Laboratory Data 24H LABS Laboratory Tests 2 11/02/18 06:36: Nucleated Red Blood Cells % (auto) 0.0, Anion Gap 8, Glomerular Filtration Rate > 60.0, Blood Urea Nitrogen 10, Creatinine 0.50L, Sodium Level 145, Potassium Level 2.9*L, Chloride Level 112H, Carbon Dioxide Level 25, Calcium Level 8.1L CBC/BMP Laboratory Tests 11/02/18 06:36 Red Blood Count 3.87 L, Mean Corpuscular Volume 94.6, Mean Corpuscular Hemoglobin 31.8, Mean Corpuscular Hemoglobin Concent 33.6, Red Cell Distribution Width 12.6, Calcium Level 8.1 L FARIDA MANNING MD Nov 02, 2018 17:30
[2018-11-03] MEDS: ONDANSETRON 4MG/2ML VIAL (J2405) IV PRN ×2 (01:08→08:15)
[2018-11-03] MEDS: NS 1,000 ML IV SCH ×2 (01:22→09:02)
[2018-11-03 07:50] VITALS: BP 148/84
[2018-11-03 07:57] LABS: HEMATOCRIT 35.7 % (36.0-47.0); MEAN CORPUSCULAR HEMOGLOBIN 31.1 pg (27.0-33.0); MEAN CORPUSCULAR HGB CONC 33.6 g/dl (32.0-36.5); MEAN CORPUSCULAR VOLUME 92.5 fl (80.0-96.0); PLATELET COUNT, AUTOMATED 155 10^3/uL (150-450); RED BLOOD COUNT 3.86 10^6/uL (4.00-5.40); WHITE BLOOD COUNT 8.3 10^3/uL (4.0-10.0)
[2018-11-03 08:20] LABS: BLOOD UREA NITROGEN 9 MG/DL (7-18); CARBON DIOXIDE LEVEL 24 MEQ/L (21-32); CHLORIDE LEVEL 110 MEQ/L (98-107); CREATININE FOR GFR 0.46 MG/DL (0.55-1.30); GLOMERULAR FILTRATION RATE > 60.0 (>60); GLUCOSE, FASTING 72 MG/DL (70-100); POTASSIUM SERUM 3.5 MEQ/L (3.5-5.1); SODIUM LEVEL 142 MEQ/L (136-145)
[2018-11-03] MEDS: POTASSIUM CHLORIDE 10 MEQ SR TABLET PO SCH (09:02)
[2018-11-03 12:15] VITALS: BP 141/74
--- NOTE | 2018-11-03 13:41 | DS.PDOC ---
Discharge Summary General Date of Admission Nov 01, 2018 at 12:58 Date of Discharge 11/03/18 Discharge Summary PROCEDURES PERFORMED DURING STAY: [None]. ADMITTING DIAGNOSES: 1. Intractable N/V. 2. Suspected gastritis DISCHARGE DIAGNOSES: 1. Intractable N/V 2/2 gastritis vs. self induced 2. Suspected gastritis COMPLICATIONS/CHIEF COMPLAINT: Hypokalemia Nausea Vomiting. HISTORY OF PRESENT ILLNESS: "Patient is a 23-year-old female with no significant past medical history presented to ER with complaints of nausea and vomiting for the past several days. Patient stated that she started feeling sick on Thursday and vomited all day leading her to go into the ER. Her symptoms improved with Zofran initially and was doing fine after discharge until she started having nausea again. In ER, she was found to be hypokalemic. She was resuscitate with IVF and IV Zofran with improvement. Denies any fever, chills, diarrhea, or any other complaints apart from abdomen being sore from vomiting. She ate [place] food thursday night, unsure if that is a contributing factor. No sick contacts. " HOSPITAL COURSE: Patient admitted for IVF and supportive care. Hypokalemia from vomiting and K was repleted. Symptoms improve with IV Zofran and reported eating well this morning and nausea had resolved. There was concern for self induced symptoms by nursing staff as patient was found to be pouring water into emesis bag. Regardless, she reportedly feeling better now and feel that she is ready to go home. Will discharge patient home to f/u with PMD. DISCHARGE MEDICATIONS: Please see below. ALLERGIES: Please see below. PHYSICAL EXAMINATION ON DISCHARGE: VITAL SIGNS: Please see below. General: No acute distress, Alert Eyes: Normal sclera, EOMI, RIKKI HENT: Atraumatic, neck supple, moist mucous membranes Cardiovascular: Normal rate, normal rhythm. No murmurs appreciated. Pulmonary: Clear to auscultation b/l, no wheezing GI: Soft, nontender, nondistended Skin: Warm and dry Neuro: CN grossly intact. No focal deficits. Strengths equal b/l. Psych: oriented x 3 LABORATORY DATA: Please see below. IMAGING: None PROGNOSIS: Good ACTIVITY: [As tolerated]. DIET: Regular diet DISCHARGE PLAN: f/u PMD within 1 week DISPOSITION: Home. DISCHARGE INSTRUCTIONS: f/u with PMD within 1 week ITEMS TO FOLLOWUP ON ON OUTPATIENT: None DISCHARGE CONDITION: [Stable]. TIME SPENT ON DISCHARGE: 30 minutes. Vital Signs/I&Os Vital Signs Date Time Temp Pulse Resp B/P (MAP) Pulse Ox O2 Delivery O2 Flow Rate FiO2 11/03/18 12:15 98.1 57 16 141/74 (96) 100 11/01/18 06:46 Room Air I&O- Last 24 Hours up to 6 AM 11/03/18 06:00 Intake Total 3360 ml Output Total 1900 ml Balance 1460 ml Laboratory Data Labs 24H Laboratory Tests 2 11/03/18 07:17: Nucleated Red Blood Cells % (auto) 0.0, Anion Gap 8, Glomerular Filtration Rate > 60.0, Blood Urea Nitrogen 9, Creatinine 0.46L, Sodium Level 142, Potassium Level 3.5#, Chloride Level 110H, Carbon Dioxide Level 24, Calcium Level 8.0L CBC/BMP Laboratory Tests 11/03/18 07:17 Red Blood Count 3.86 L, Mean Corpuscular Volume 92.5, Mean Corpuscular Hemoglobin 31.1, Mean Corpuscular Hemoglobin Concent 33.6, Red Cell Distribution Width 12.6, Calcium Level 8.0 L Discharge Medications Scheduled PRN Ondansetron HCl (Zofran) 4 Mg Tablet, 4 MG PO Q6H PRN for NAUSEA OR VOMITING, (Reported) Allergies Coded Allergies: lactose (Verified Allergy, Unknown, 11/01/18) FARIAD MANNING MD Nov 03, 2018 13:41
== END 2018-11-03 14:32 | disposition home or self-care (01) ==
LOC: M ED 06:46 → M ED INP 12:58 → M PED 14:48
PROVIDERS: ADMIT Student in an Organized Health Care Education/Training Program; ATTEND Student in an Organized Health Care Education/Training Program
DX: R11.2 Nausea with vomiting, unspecified (principal); E87.6 Hypokalemia; Z91.011 Allergy to milk products
CPT/HCPCS: 36415; 80048; 80076; 81001; 83690; 84703; 85025; 85027; 93005; 96361; 96374; 96375; 96376; 99285; J2405; J2765

== ENCOUNTER 2019-05-08 19:47 | Emergency (ER) | payer OTHER ==
[~2019-05-08] VITALS: Ht 157.5 cm; Wt 59.1 kg
[2019-05-08] MEDS ORDERED: ONDANSETRON 4 MG ORAL DISINTEGRATING TAB (Q0162 PER 1MG) PO ONE (20:15)
[2019-05-08] MEDS ORDERED: SUCRALFATE 1 GM TAB PO ONE (20:30)
[2019-05-08] MEDS ORDERED: PANTOPRAZOLE 40MG TAB (PROTONIX) PO ONE (20:30)
[2019-05-08 20:57] LABS: BASO % 0.2 % (0.0-1.0); HEMATOCRIT 46.7 % (36.0-47.0); HEMOGLOBIN 15.7 g/dl (12.0-15.5); LYMPH # 0.8 10^3/uL (1.5-5.0); LYMPH % 4.8 % (24.0-44.0); MEAN CORPUSCULAR HEMOGLOBIN 31.3 pg (27.0-33.0); MEAN CORPUSCULAR HGB CONC 33.6 g/dl (32.0-36.5); MONO # 0.3 10^3/uL (0.0-0.8); MONO % 1.7 % (0.0-5.0); NEUTROPHILS # 16.4 10^3/uL (1.5-8.5); PLATELET COUNT, AUTOMATED 286 10^3/uL (150-450); RED BLOOD COUNT 5.02 10^6/uL (4.00-5.40); WHITE BLOOD COUNT 17.6 10^3/uL (4.0-10.0)
[2019-05-08 21:16] LABS: ALBUMIN 4.9 GM/DL (3.2-5.2); BILIRUBIN,DIRECT 0.3 MG/DL (0.0-0.2); BILIRUBIN,TOTAL 1.1 MG/DL (0.2-1.0); TOTAL PROTEIN 8.6 GM/DL (6.4-8.2)
[2019-05-08] MEDS ORDERED: ONDA4TAB6 PO (21:30)
[2019-05-08 21:37] VITALS: BP 126/70
[2019-05-08] MEDS ORDERED: METOCLOPRAMIDE 10 MG TAB PO ONE (21:45)
[2019-05-09] MEDS ORDERED: OMEP40CA97 PO (23:15)
== END 2019-05-08 22:39 | disposition home or self-care (01) ==
LOC: M ED 19:47
DX: R10.13 Epigastric pain (principal); R11.2 Nausea with vomiting, unspecified; R51 Headache; K21.9 Gastro-esophageal reflux disease without esophagitis; Z91.011 Allergy to milk products; Z79.899 Other long term (current) drug therapy
CPT/HCPCS: 36415; 80047; 80076; 83690; 84702; 85025; 99283; Q0162

== ENCOUNTER 2019-05-09 18:04 | Emergency (ER) | payer OTHER ==
[~2019-05-09] VITALS: Ht 157.5 cm; Wt 57.2 kg
[2019-05-09] MEDS ORDERED: NS 1,000 ML IV ONE (18:45)
[2019-05-09 19:02] LABS: BASO % 0.2 % (0.0-1.0); HEMOGLOBIN 15.6 g/dl (12.0-15.5); LYMPH # 2.3 10^3/uL (1.5-5.0); MEAN CORPUSCULAR HEMOGLOBIN 31.1 pg (27.0-33.0); MEAN CORPUSCULAR HGB CONC 34.7 g/dl (32.0-36.5); MEAN CORPUSCULAR VOLUME 89.8 fl (80.0-96.0); MONO # 1.4 10^3/uL (0.0-0.8); MONO % 7.8 % (0.0-5.0); NEUTROPHILS # 13.7 10^3/uL (1.5-8.5); NEUTROPHILS % 78.5 % (36.0-66.0); PLATELET COUNT, AUTOMATED 322 10^3/uL (150-450); RED BLOOD COUNT 5.01 10^6/uL (4.00-5.40); WHITE BLOOD COUNT 17.4 10^3/uL (4.0-10.0)
[2019-05-09 19:11] LABS: ALBUMIN 5.1 GM/DL (3.2-5.2); ALT/SGPT 44 U/L (12-78); BILIRUBIN,DIRECT 0.3 MG/DL (0.0-0.2); BILIRUBIN,TOTAL 1.4 MG/DL (0.2-1.0); CK-MB VALUE MASS 2.2 NG/ML (<3.6); CPK CREATINE PHOSPHOKINASE 331 U/L (26-192); LIPASE 54 U/L (73-393); MB/CK RELATIVE INDEX 0.66 (< OR =4); TOTAL PROTEIN 8.5 GM/DL (6.4-8.2); TROPONIN I < 0.02 NG/ML (< 0.10)
--- NOTE | 2019-05-09 20:12 | ECGEPIP ---
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
[2019-05-09 20:53] LABS: HCG, SERUM QUANTITATIVE < 1.0 MIU/ML
[2019-05-09 21:06] LABS: MAGNESIUM LEVEL 1.9 MG/DL (1.8-2.4)
[2019-05-09] MEDS ORDERED: NS 500 ML IV ONE (21:30)
--- NOTE | 2019-05-09 21:32 | REPVR ---
PROCEDURE INFORMATION: Exam: US Abdomen Limited, Right Upper Quadrant Exam date and time: 05/09/19 (8:27pm) Age: 23 years old Clinical indication: Acute abdominal pain. Epigastric tenderness. Elevated bilirubin. TECHNIQUE: Imaging protocol: Real-time ultrasound of the abdomen with image documentation. Examination was focused on the right upper quadrant. COMPARISON: US GALLBLADDER of 10/31/18 FINDINGS: The liver is visually normal in size and texture. The gallbladder has normal wall thickness (1.9 mm), with no stones nor sludge seen. No pericholecystic fluid is appreciated. The CBD is not dilated (4.2 mm diameter). The pancreas appears unremarkable. The right kidney measures 10.8 cm in length, with no hydronephrosis appreciated. No ascites is seen. IMPRESSION: Essentially unremarkable sonography of the RUQ area. No gallstones are appreciated. No biliary dilatation is evident. No abnormal fluid collections are evident. An unremarkable RUQ ultrasound was also obtained in October 2018. Electronically signed by: Crys Osborn On 05/09/2019 21:32:06 PM
[2019-05-09 22:13] LABS: AMPHETAMINES LEVEL URINE NEGATIVE (NEGATIVE); BARBITURATES URINE NEGATIVE (NEGATIVE); BENZODIAZEPINES URINE NEGATIVE (NEGATIVE); CANNABINOIDS URINE POSITIVE (NEGATIVE); COCAINE METABOLITE URINE NEGATIVE (NEGATIVE); METHADONE URINE NEGATIVE (NEGATIVE); OPIATES URINE NEGATIVE (NEGATIVE); PHENCYCLIDINE URINE NEGATIVE (NEGATIVE)
[2019-05-09] MEDS ORDERED: GI COCKTAIL 50ML BTL(HYOSCYAMINE/MAALOX/LIDOCAINE VISCOUS)(1:3:1) PO ONE (22:45)
[2019-05-09] MEDS ORDERED: OMEP40CA97 PO (23:15)
[2019-05-09] MEDS ORDERED: PROMETHAZINE INJ 25 MG/ML VIAL (J2550) IV ONE (23:30)
[2019-05-10 00:34] VITALS: BP 113/69
--- NOTE | 2019-05-10 08:06 | REP ---
Clinical: Chest and abdominal pain . Comparison: 01/11/2017 . Technique: PA and lateral. Findings: The mediastinum and cardiac silhouette are normal. The lung lacey are clear and without acute consolidation, effusion, or pneumothorax. The skeletal structures are intact and normal. Impression: 1. No acute cardiopulmonary process. Electronically Signed by Bill Tyson MD 05/10/2019 07:57 A
== END 2019-05-10 00:35 | disposition home or self-care (01) ==
LOC: M ED 18:04
DX: K29.70 Gastritis, unspecified, without bleeding (principal); D72.829 Elevated white blood cell count, unspecified; I45.10 Unspecified right bundle-branch block; F43.0 Acute stress reaction; F10.10 Alcohol abuse, uncomplicated; R94.31 Abnormal electrocardiogram [ECG] [EKG]; Z79.899 Other long term (current) drug therapy; Z91.011 Allergy to milk products

== ENCOUNTER 2019-09-04 15:13 | Emergency (ER) | payer OTHER ==
[~2019-09-04] VITALS: Ht 157.5 cm; Wt 96.6 kg
[~2019-09-04 15:13] MED LIST changes: +OMEP40CA97 PO
[2019-09-04] MEDS ORDERED: ONDANSETRON 4MG/2ML VIAL IV ONE (15:45)
[2019-09-04] MEDS ORDERED: NS 1,000 ML IV ONE (15:45)
[2019-09-04 16:18] LABS: BASO # 0.1 10^3/uL (0.0-0.2); BASO % 0.4 % (0.0-1.0); HEMATOCRIT 47.4 % (36.0-47.0); HEMOGLOBIN 16.3 g/dl (12.0-15.5); LYMPH # 0.7 10^3/uL (1.5-5.0); LYMPH % 6.1 % (24.0-44.0); MEAN CORPUSCULAR HEMOGLOBIN 31.7 pg (27.0-33.0); MEAN CORPUSCULAR HGB CONC 34.4 g/dl (32.0-36.5); MEAN CORPUSCULAR VOLUME 92.2 fl (80.0-96.0); MONO # 0.5 10^3/uL (0.0-0.8); MONO % 4.2 % (0.0-5.0); NEUTROPHILS # 10.5 10^3/uL (1.5-8.5); PLATELET COUNT, AUTOMATED 256 10^3/uL (150-450); RED BLOOD COUNT 5.14 10^6/uL (4.00-5.40); WHITE BLOOD COUNT 11.8 10^3/uL (4.0-10.0)
[2019-09-04 16:34] LABS: HCG, SERUM QUALITATIVE NEGATIVE (NEGATIVE)
[2019-09-04 16:37] LABS: ALBUMIN 4.8 GM/DL (3.2-5.2); ALT/SGPT 49 U/L (12-78); AMYLASE 39 U/L (25-115); BILIRUBIN,DIRECT 0.6 MG/DL (0.0-0.2); BILIRUBIN,TOTAL 2.6 MG/DL (0.2-1.0); BLOOD UREA NITROGEN 16 MG/DL (7-18); CALCIUM LEVEL 10.7 MG/DL (8.5-10.1); CARBON DIOXIDE LEVEL 19 MEQ/L (21-32); CHLORIDE LEVEL 102 MEQ/L (98-107); CREATININE FOR GFR 0.89 MG/DL (0.55-1.30); GLOMERULAR FILTRATION RATE > 60.0 (>60); GLUCOSE, FASTING 145 MG/DL (70-100); LIPASE 41 U/L (73-393); POTASSIUM SERUM 3.6 MEQ/L (3.5-5.1); SODIUM LEVEL 138 MEQ/L (136-145); TOTAL PROTEIN 8.6 GM/DL (6.4-8.2)
[2019-09-04] MEDS ORDERED: METOCLOPRAMIDE INJ 10MG/2ML VIAL (J2765 PER 1) IV ONE (16:45)
[2019-09-04 16:46] LABS: AMPHETAMINES LEVEL URINE NEGATIVE (NEGATIVE); BARBITURATES URINE NEGATIVE (NEGATIVE); BENZODIAZEPINES URINE NEGATIVE (NEGATIVE); CANNABINOIDS URINE POSITIVE (NEGATIVE); COCAINE METABOLITE URINE POSITIVE (NEGATIVE); METHADONE URINE NEGATIVE (NEGATIVE); OPIATES URINE NEGATIVE (NEGATIVE); PHENCYCLIDINE URINE NEGATIVE (NEGATIVE)
--- NOTE | 2019-09-04 17:16 | REP ---
KUB: Single view. History: Abdomen pain, nausea and vomiting. Comparison study: January 09, 2017. Findings: Umbilical jewelry is again noted. The bowel gas pattern is normal. There are phleboliths in the pelvis bilaterally. There is partial sacralization of the transverse process on the right at L5. Psoas margins and flank stripes are intact. No mass, organomegaly, or pathologic calcification is seen. Impression: Unremarkable KUB. Electronically Signed by Collin Morel MD 09/04/2019 05:09 P
[2019-09-04] MEDS ORDERED: KETOROLAC 30 MG/ML 1ML VIAL IV ONE (17:30)
--- NOTE | 2019-09-04 17:32 | REPVR ---
PROCEDURE INFORMATION: Exam: US Abdomen Limited, Right Upper Quadrant Exam date and time: 09/04/2019 5:22 PM Age: 24 years old Clinical indication: Pain and abnormal findings; Abnormal lab test; Other: Elevated bilirubin; Abdominal pain; Additional info: Elevated bilirubin, diffuse abd pain, n/v TECHNIQUE: Imaging protocol: Real-time ultrasound of the abdomen with image documentation. Examination was focused on the right upper quadrant. COMPARISON: GALLBLADDER US 05/09/2019 8:26 PM FINDINGS: Liver: Unremarkable. Gallbladder: No gallstones. No gallbladder wall thickening or pericholecystic fluid. Common bile duct: No stones. No ductal dilatation. Pancreas: Unremarkable as visualized. Right kidney: No mass. No definite stones. No hydronephrosis. IMPRESSION: No acute sonographic findings. Electronically signed by: Humberto Mcdonough On 09/04/2019 17:32:02 PM
[2019-09-04] MEDS ORDERED: ISOVUE-370 76% 100ML VIAL As Ordered ONE (17:48)
--- NOTE | 2019-09-04 18:10 | REPVR ---
PROCEDURE INFORMATION: Exam: CT Abdomen And Pelvis With Contrast Exam date and time: 09/04/2019 5:45 PM Age: 24 years old Clinical indication: Pain and abnormal findings; Abnormal lab test; Elevated liver enzymes; Abdominal pain; Additional info: Abd pain, elevated bilirubin, nausea/vomiting, leukocytosis TECHNIQUE: Imaging protocol: Computed tomography of the abdomen and pelvis with intravenous contrast. Axial, coronal and sagittal reformatted images were created and reviewed. Radiation optimization: All CT scans at this facility use at least one of these dose optimization techniques: automated exposure control; mA and/or kV adjustment per patient size (includes targeted exams where dose is matched to clinical indication); or iterative reconstruction. Contrast material: ISOVUE 370; Contrast volume: 100 ml; Contrast route: IV; COMPARISON: CT ABD/PEL W/IV CONTRAST ONLY 12/27/2017 12:22 AM FINDINGS: Liver: Diffuse hepatic steatosis. Gallbladder and bile ducts: No radiodense gallstones. No biliary ductal dilatation. Pancreas: Unremarkable. Spleen: Unremarkable. Adrenals: Unremarkable. Kidneys and ureters: No mass. No radiodense calculi. No hydronephrosis. Stomach and bowel: No bowel wall thickening. No obstruction. No pneumatosis. Appendix: Normal. Intraperitoneal space: No free fluid. No organized fluid collection. No free air. Vasculature: Unremarkable. No aneurysm. Lymph nodes: No pathologically enlarged lymph nodes. Bladder: Unremarkable. Reproductive: Probable involuting right ovarian corpus luteal cyst. Bones/joints: No acute osseous abnormality. Soft tissues: Unremarkable. IMPRESSION: 1. No CT evidence of acute intra-abdominal or pelvic pathology. 2. Additional findings, as above. Electronically signed by: Humberto Mcdonough On 09/04/2019 18:09:13 PM
[2019-09-04] MEDS ORDERED: ONDA4TAB6 PO (18:21)
[2019-09-04 18:31] VITALS: BP 129/76
== END 2019-09-04 18:34 | disposition home or self-care (01) ==
LOC: M ED 15:13
DX: N83.291 Other ovarian cyst, right side (principal); F12.188 Cannabis abuse with other cannabis-induced disorder; F14.90 Cocaine use, unspecified, uncomplicated; K76.0 Fatty (change of) liver, not elsewhere classified; E80.7 Disorder of bilirubin metabolism, unspecified; R11.2 Nausea with vomiting, unspecified; E73.9 Lactose intolerance, unspecified
CPT/HCPCS: 74018; 74177; 76705; 80048; 80076; 80307; 81001; 82150; 83690; 84703; 85025; 96361; 96374; 96375; 99284; J1885; J2405; J2765; Q9967

== ENCOUNTER 2019-09-06 01:22 | Emergency (ER) | payer OTHER ==
[~2019-09-06] VITALS: Ht 157.5 cm; Wt 55.4 kg
[2019-09-06] MEDS ORDERED: METOCLOPRAMIDE INJ 10MG/2ML VIAL (J2765 PER 1) IV ONE (01:45)
[2019-09-06] MEDS ORDERED: NS 1,000 ML IV ONE (01:45)
[2019-09-06 01:58] LABS: BASO % 0.1 % (0.0-1.0); HEMATOCRIT 44.8 % (36.0-47.0); HEMOGLOBIN 15.5 g/dl (12.0-15.5); LYMPH # 1.5 10^3/uL (1.5-5.0); LYMPH % 10.7 % (24.0-44.0); MEAN CORPUSCULAR HEMOGLOBIN 31.2 pg (27.0-33.0); MEAN CORPUSCULAR HGB CONC 34.6 g/dl (32.0-36.5); MEAN CORPUSCULAR VOLUME 90.1 fl (80.0-96.0); MONO # 1.2 10^3/uL (0.0-0.8); MONO % 8.1 % (0.0-5.0); NEUTROPHILS # 11.6 10^3/uL (1.5-8.5); NEUTROPHILS % 80.7 % (36.0-66.0); PLATELET COUNT, AUTOMATED 306 10^3/uL (150-450); RED BLOOD COUNT 4.97 10^6/uL (4.00-5.40); WHITE BLOOD COUNT 14.4 10^3/uL (4.0-10.0)
[2019-09-06] MEDS ORDERED: CAPSAICIN 0.025% CR 60 GM TOP ONE (02:00)
[2019-09-06 02:26] LABS: ALT/SGPT 43 U/L (12-78); BILIRUBIN,DIRECT 0.6 MG/DL (0.0-0.2); BILIRUBIN,TOTAL 2.1 MG/DL (0.2-1.0); BLOOD UREA NITROGEN 16 MG/DL (7-18); CALCIUM LEVEL 10.2 MG/DL (8.5-10.1); CARBON DIOXIDE LEVEL 25 MEQ/L (21-32); CHLORIDE LEVEL 98 MEQ/L (98-107); CREATININE FOR GFR 0.85 MG/DL (0.55-1.30); GLOMERULAR FILTRATION RATE > 60.0 (>60); GLUCOSE, FASTING 102 MG/DL (70-100); LIPASE 47 U/L (73-393); POTASSIUM SERUM 3.1 MEQ/L (3.5-5.1); SODIUM LEVEL 137 MEQ/L (136-145); TOTAL PROTEIN 8.7 GM/DL (6.4-8.2)
[2019-09-06 02:45] VITALS: BP 133/79
[2019-09-06] MEDS ORDERED: POTASSIUM CHLORIDE 10 MEQ SR TABLET PO ONE (02:45)
[2019-09-07] MEDS ORDERED: ZOFR4TAB16 PO (08:54)
== END 2019-09-06 02:47 | disposition home or self-care (01) ==
LOC: M ED 01:22
DX: F12.188 Cannabis abuse with other cannabis-induced disorder (principal); E87.6 Hypokalemia; E73.9 Lactose intolerance, unspecified
CPT/HCPCS: 80048; 80076; 83690; 85025; 96361; 96374; 99284; J2765

== ENCOUNTER 2019-09-06 17:51 | Observation (INO) | payer OTHER ==
[~2019-09-06] VITALS: Ht 157.5 cm; Wt 59.1 kg
[2019-09-06] MEDS ORDERED: KETOROLAC 30 MG/ML 1ML VIAL IV ONE (18:15)
[2019-09-06] MEDS ORDERED: PANTOPRAZOLE 40MG VIAL (C9113 PER 1) IV ONE (18:15)
[2019-09-06] MEDS ORDERED: ONDANSETRON 4MG/2ML VIAL IV ONE (18:15)
[2019-09-06] MEDS ORDERED: NS 1,000 ML IV ONE ×2 (18:15→19:30)
[2019-09-06 18:37] LABS: BASO % 0.2 % (0.0-1.0); HEMATOCRIT 45.3 % (36.0-47.0); HEMOGLOBIN 15.4 g/dl (12.0-15.5); LYMPH # 1.6 10^3/uL (1.5-5.0); LYMPH % 12.4 % (24.0-44.0); MEAN CORPUSCULAR HEMOGLOBIN 30.8 pg (27.0-33.0); MEAN CORPUSCULAR VOLUME 90.6 fl (80.0-96.0); NEUTROPHILS % 79.2 % (36.0-66.0); PLATELET COUNT, AUTOMATED 284 10^3/uL (150-450); WHITE BLOOD COUNT 12.6 10^3/uL (4.0-10.0)
[2019-09-06 19:15] LABS: ALBUMIN 4.7 GM/DL (3.2-5.2); ALT/SGPT 41 U/L (12-78); BILIRUBIN,DIRECT 0.7 MG/DL (0.0-0.2); BILIRUBIN,TOTAL 2.3 MG/DL (0.2-1.0); BLOOD UREA NITROGEN 13 MG/DL (7-18); CALCIUM LEVEL 10.2 MG/DL (8.5-10.1); CARBON DIOXIDE LEVEL 29 MEQ/L (21-32); CHLORIDE LEVEL 94 MEQ/L (98-107); CREATININE FOR GFR 0.82 MG/DL (0.55-1.30); GLOMERULAR FILTRATION RATE > 60.0 (>60); GLUCOSE, FASTING 88 MG/DL (70-100); LIPASE 62 U/L (73-393); POTASSIUM SERUM 2.6 MEQ/L (3.5-5.1); SODIUM LEVEL 134 MEQ/L (136-145); TOTAL PROTEIN 8.4 GM/DL (6.4-8.2)
[2019-09-06 19:21] LABS: HCG, SERUM QUALITATIVE NEGATIVE (NEGATIVE)
[2019-09-06] MEDS ORDERED: KCL 10MEQ/100ML SWI (KRUN) 10 MEQ in IV 1 EA IV ONE ×5 (19:30→20:30)
[2019-09-06] MEDS ORDERED: ONDANSETRON 4MG/2ML VIAL IV PRN (20:30)
[2019-09-06] MEDS ORDERED: ACETAMINOPHEN TAB 650MG DOSE (2X325MG) PO PRN (20:30)
--- NOTE | 2019-09-06 20:59 | HPEPDOC ---
General Date of Admission Sep 06, 2019 at 20:17 Date of Service: Sep 06, 2019 Chief Complaint The patient is a 24-year-old female who presented to the hospital with complaints of vomiting for 4 days History of Present Illness Patient is a 24-year-old female with no significant past medical history who presented to the hospital with complaints of vomiting for 4 days duration. Patient reported that over the last 4 days shes been vomiting at least 5-10 times per day without any evidence of blood. Patient described the vomitus as yellow and watery. Patient has noted that her nausea and vomiting awakens her from her sleep. She is unable to keep down any food. Patient presented to the hospital on 09/04/2019 with similar symptoms that have failed to resolve. During that ER visit, patient had a CT scan of her abdomen/pelvis and ultrasound of her abdomen completed which were unrevealing. Patient denies any abdominal pain, and reports her last bowel movement was 4 days ago. Patient reports associated chills without any fevers. She denies any diarrhea. Patient denies any prior history of his type of abdominal discomfort. Patient denies any urinary discomfort. Patient has not reported any significant changes in her weight, but does report a poor appetite over the last 4 days. Patient denies any chest pain, shortness of breath, palpitations or cough. 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 Review of Systems Other systems 10 point review of systems complete, all negative otherwise stated in HPI Vital Signs - Vitals: BP 136/82, HR 60, RR 17, Sat 100%RA, Temp 98.5F - General: Lying in bed, Speaking in full sentences, AAOx3 - HEENT: NC, AT, PERRLA, EOMI - CVS: RRR, +S1S2 - Lungs: Fair air entry bilaterally, No appreciable wheezing / rales / rhonchi - Abdomen: Soft, Non-distended, Non-tender - Extremities: No lower extremity edema, No calf tenderness - Neuro: No focal motor or sensory deficit - Skin: No visible rashes Laboratory Data Labs 24H Laboratory Tests 2 09/06/19 18:22: Urine Color VIKTORIYA, Urine Appearance HAZY, Urine pH 7.0, Urine Specific [place] 1.032, Urine Protein 2+H, Urine Glucose (UA) 1+H, Urine Ketones 2+H, Urine Blood NEGATIVE, Urine Nitrite NEGATIVE, Urine Bilirubin 1+H, Urine Urobilinogen 4.0H, Urine Leukocyte Esterase NEGATIVE, Urine WBC (Auto) 2, Urine RBC (Auto) 1, Urine Hyaline Casts (Auto) 0, Urine Bacteria (Auto) NEGATIVE, Urine Squamous Epithelial Cells 14, Urine Mucus (Auto) SMALL, Urine Sperm (Auto) 09/06/19 18:27: Immature Granulocyte % (Auto) 0.2, Neutrophils (%) (Auto) 79.2H, Lymphocytes (%) (Auto) 12.4L, Monocytes (%) (Auto) 8.0H, Eosinophils (%) (Auto) 0.0, Basophils (%) (Auto) 0.2, Neutrophils # (Auto) 10.0H, Lymphocytes # (Auto) 1.6, Monocytes # (Auto) 1.0H, Eosinophils # (Auto) 0.0, Basophils # (Auto) 0.0, Nucleated Red Blood Cells % (auto) 0.0, Anion Gap 11, Glomerular Filtration Rate > 60.0, Calcium Level 10.2H, Total Bilirubin 2.3H, Direct Bilirubin 0.7H, Aspartate Amino Transf (AST/SGOT) 30, Alanine Aminotransferase (ALT/SGPT) 41, Alkaline Phosphatase 76, Total Protein 8.4H, Albumin 4.7, Albumin/Globulin Ratio 1.27, Lipase 62L, Human Chorionic Gonadotropin, Qual NEGATIVE CBC/BMP Laboratory Tests 09/06/19 18:27 Plan / VTE VTE Prophylaxis Ordered?: Yes Plan Plan Intractable nausea and vomiting - Presented to the hospital with complaint of vomiting for 4 days duration - Physical without any abdominal tenderness noted - Hemodynamically stable and afebrile - Mild leukocytosis - UDS positive for Marijuana and Cocaine - Lipase negative - XR Abdomen 09/03: Unremarkable KUB. - US abdomen 09/03: No acute sonographic findings. - CT abdomen / pelvis 4/19: 1. No CT evidence of acute intra-abdominal or pelvic pathology. 2. Additional findings, as above. - Has received 2 liters of IV fluid hydration in the ER - Will check H. pylori antibodies - Will continue with symptomatic control with Zofran Hypokalemia - possibly 2/2 vomiting - Has been supplemented by K run 2 IV - Will provide potassium supplementation through oral routes - Will continue with telemetry monitoring Hyponatremia - Mild - s/p IV fluid hydration Hypercalcemia - s/p IV fluid hydration Gastrointestinal prophylaxis - Will start Protonix DVT prophylaxis - Will start Heparin / TEDs and Sequentials YAEL MULLER MD Sep 06, 2019 20:59
[2019-09-06] MEDS ORDERED: POTASSIUM CHLORIDE 10 MEQ SR TABLET PO ONE (21:00)
[2019-09-06 21:03] LABS: H PYLORI QUALITATIVE IgG DETECTED (NEGATIVE)
[2019-09-06 21:06] VITALS: BP 130/77
--- NOTE | 2019-09-06 22:46 | REP ---
REASON: Abdominal pain. ABDOMINAL SERIES WITH FRONTAL VIEW OF THE CHEST: FINDINGS: Supine and upright views of the abdomen show the intestinal gas pattern to be nonspecific. Gas and stool is seen throughout the colon within the rectosigmoid region. The organ silhouettes insofar as delineated appear unremarkable. No abdominal calcific densities are seen within the abdomen or pelvis. The accompanying single frontal view of the chest shows no free subdiaphragmatic air, cardiomegaly, infiltrates, or effusions. IMPRESSION: Nonspecific intestinal gas pattern. Electronically Signed by Raji Sanders DO 09/07/2019 08:35 A
[2019-09-06] MEDS: METOCLOPRAMIDE INJ 10MG/2ML VIAL (J2765 PER 1) IV PRN (23:37)
[2019-09-07 03:18] LABS: BASO % 0.2 % (0.0-1.0); EOS % 0.3 % (0.0-3.0); HEMATOCRIT 35.7 % (36.0-47.0); LYMPH # 2.6 10^3/uL (1.5-5.0); LYMPH % 28.5 % (24.0-44.0); MEAN CORPUSCULAR HEMOGLOBIN 31.3 pg (27.0-33.0); MEAN CORPUSCULAR HGB CONC 34.2 g/dl (32.0-36.5); MEAN CORPUSCULAR VOLUME 91.5 fl (80.0-96.0); MONO # 0.8 10^3/uL (0.0-0.8); MONO % 8.9 % (0.0-5.0); NEUTROPHILS # 5.6 10^3/uL (1.5-8.5); NEUTROPHILS % 61.8 % (36.0-66.0)
[2019-09-07 03:30] LABS: HEMOGLOBIN 12.2 g/dl (12.0-15.5)
[2019-09-07 03:31] LABS: PLATELET COUNT, AUTOMATED 177 10^3/uL (150-450)
--- NOTE | 2019-09-07 03:48 | ECGEPIP ---
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
[2019-09-07 04:08] LABS: BLOOD UREA NITROGEN 12 MG/DL (7-18); CALCIUM LEVEL 8.2 MG/DL (8.5-10.1); CARBON DIOXIDE LEVEL 25 MEQ/L (21-32); CHLORIDE LEVEL 106 MEQ/L (98-107); CREATININE FOR GFR 0.55 MG/DL (0.55-1.30); GLOMERULAR FILTRATION RATE > 60.0 (>60); GLUCOSE, FASTING 81 MG/DL (70-100); POTASSIUM SERUM 2.9 MEQ/L (3.5-5.1); SODIUM LEVEL 139 MEQ/L (136-145)
[2019-09-07] MEDS: KCL 10MEQ/100ML SWI (KRUN) 10 MEQ in IV 1 EA IV SCH ×3 (04:51→07:49)
[2019-09-07 06:00] VITALS: BP 132/88
[2019-09-07] MEDS ORDERED: HEPARIN SOD (PORCINE) 5000UNITS/ML VIAL (J1644 PER 1000UNITS) SC SCH (06:00)
[2019-09-07 06:35] LABS: BLOOD UREA NITROGEN 11 MG/DL (7-18); CALCIUM LEVEL 8.9 MG/DL (8.5-10.1); CARBON DIOXIDE LEVEL 26 MEQ/L (21-32); CHLORIDE LEVEL 104 MEQ/L (98-107); CREATININE FOR GFR 0.66 MG/DL (0.55-1.30); GLOMERULAR FILTRATION RATE > 60.0 (>60); GLUCOSE, FASTING 71 MG/DL (70-100); MAGNESIUM LEVEL 1.7 MG/DL (1.8-2.4); POTASSIUM SERUM 3.2 MEQ/L (3.5-5.1); SODIUM LEVEL 139 MEQ/L (136-145)
[2019-09-07] MEDS: METOCLOPRAMIDE INJ 10MG/2ML VIAL (J2765 PER 1) IV PRN (06:38)
[2019-09-07] MEDS ORDERED: ZOFR4TAB16 PO (08:54)
--- NOTE | 2019-09-07 08:55 | DS.PDOC ---
Discharge Summary General Date of Admission Sep 06, 2019 at 20:17 Date of Discharge 09/07/2019 Discharge Summary PROCEDURES PERFORMED DURING STAY: None. ADMITTING DIAGNOSES: 1. Intractable nausea and vomiting. DISCHARGE DIAGNOSES: 1. Intractable nausea and vomiting. COMPLICATIONS/CHIEF COMPLAINT: Hypokalemia,Nausea And Vomiting. HISTORY OF PRESENT ILLNESS: Patient is a 24-year-old female with no significant past medical history who presented to the hospital with complaints of vomiting for 4 days duration. Patient reported that over the last 4 days shes been vomiting at least 5-10 times per day without any evidence of blood. Patient described the vomitus as yellow and watery. Patient has noted that her nausea and vomiting awakens her from her sleep. She is unable to keep down any food. Patient presented to the hospital on 09/04/2019 with similar symptoms that have failed to resolve. During that ER visit, patient had a CT scan of her abdomen/pelvis and ultrasound of her abdomen completed which were unrevealing. Patient denies any abdominal pain, and reports her last bowel movement was 4 days ago. Patient reports associated chills without any fevers. She denies any diarrhea. Patient denies any prior history of his type of abdominal discomfort. Patient denies any urinary discomfort. Patient has not reported any significant changes in her weight, but does report a poor appetite over the last 4 days. Patient denies any chest pain, shortness of breath, palpitations or cough. HOSPITAL COURSE: Patient was admitted to the medical floor for further observation. She was found to be hypokalemic and was repleted area her symptoms are well controlled with Zofran and Reglan. She was able to tolerate a by mouth diet this morning and is now requesting to go home. Given her normal laboratory work as well as improvement in symptoms, she is mentally stable for discharge at this time. Patient was instructed to stop smoking marijuana given there could be a component of cannabis induced vomiting syndrome that may be causing her symptoms. DISCHARGE MEDICATIONS: Please see below. ALLERGIES: Please see below. PHYSICAL EXAMINATION ON DISCHARGE: VITAL SIGNS: Please see below. GENERAL: Well-appearing, no acute distress. HEENT: Normocephalic, atraumatic. Oral mucosa appears to be moist. No palpable lymphadenopathy appreciated. NECK: No JVD. Neck is supple CARDIOVASCULAR EXAMINATION: Regular rate and regular rhythm. No audible murmurs, rubs, gallops RESPIRATORY EXAMINATION: Clear to auscultation bilaterally ABDOMINAL EXAMINATION: Soft, nontender, nondistended, normal bowel sounds EXTREMITIES: No gross deformities, within normal limits SKIN: No jaundice, rashes, breakdowns NEUROLOGICAL EXAMINATION: Cranial nerves II through XII grossly intact PSYCHIATRIC EXAMINATION: Mood appears to be normal LABORATORY DATA: Please see below. IMAGING: Negative PROGNOSIS: Good ACTIVITY: As tolerated. DIET: And advance as tolerated with no restrictions DISPOSITION: Home services needed DISCHARGE INSTRUCTIONS: 1. Please follow up with her PCP within 5-7 days of discharge. ITEMS TO FOLLOWUP ON ON OUTPATIENT: 1. Hypokalemia. DISCHARGE CONDITION: Medically stable for discharge. TIME SPENT ON DISCHARGE: 20 minutes Vital Signs/I&Os Vital Signs Date Time Temp Pulse Resp B/P (MAP) Pulse Ox O2 Delivery O2 Flow Rate FiO2 09/07/19 06:00 98.3 60 18 132/88 (103) 98 Room Air I&O- Last 24 Hours up to 6 AM 09/07/19 06:00 Intake Total 1490 ml Output Total 425 ml Balance 1065 ml Laboratory Data Labs 24H Laboratory Tests 2 09/06/19 18:22: Urine Color VIKTORIYA, Urine Appearance HAZY, Urine pH 7.0, Urine Specific [place] 1.032, Urine Protein 2+H, Urine Glucose (UA) 1+H, Urine Ketones 2+H, Urine Blood NEGATIVE, Urine Nitrite NEGATIVE, Urine Bilirubin 1+H, Urine Urobilinogen 4.0H, Urine Leukocyte Esterase NEGATIVE, Urine WBC (Auto) 2, Urine RBC (Auto) 1, Urine Hyaline Casts (Auto) 0, Urine Bacteria (Auto) NEGATIVE, Urine Squamous Epithelial Cells 14, Urine Mucus (Auto) SMALL, Urine Sperm (Auto) 09/06/19 18:27: Immature Granulocyte % (Auto) 0.2, Neutrophils (%) (Auto) 79.2H, Lymphocytes (%) (Auto) 12.4L, Monocytes (%) (Auto) 8.0H, Eosinophils (%) (Auto) 0.0, Basophils (%) (Auto) 0.2, Neutrophils # (Auto) 10.0H, Lymphocytes # (Auto) 1.6, Monocytes # (Auto) 1.0H, Eosinophils # (Auto) 0.0, Basophils # (Auto) 0.0, Nucleated Red Blood Cells % (auto) 0.0, Anion Gap 11, Glomerular Filtration Rate > 60.0, Calcium Level 10.2H, Total Bilirubin 2.3H, Direct Bilirubin 0.7H, Aspartate Amino Transf (AST/SGOT) 30, Alanine Aminotransferase (ALT/SGPT) 41, Alkaline Phosphatase 76, Total Protein 8.4H, Albumin 4.7, Albumin/Globulin Ratio 1.27, Lipase 62L, Human Chorionic Gonadotropin, Qual NEGATIVE, Helicobacter pylori IgG Antibody DETECTEDA 09/07/19 03:02: Immature Granulocyte % (Auto) 0.3, Neutrophils (%) (Auto) 61.8, Lymphocytes (%) (Auto) 28.5, Monocytes (%) (Auto) 8.9H, Eosinophils (%) (Auto) 0.3, Basophils (%) (Auto) 0.2, Neutrophils # (Auto) 5.6, Lymphocytes # (Auto) 2.6, Monocytes # (Auto) 0.8, Eosinophils # (Auto) 0.0, Basophils # (Auto) 0.0, Nucleated Red Blood Cells % (auto) 0.0, Anion Gap 8, Glomerular Filtration Rate > 60.0, Calcium Level 8.2#L 09/07/19 05:26: Anion Gap 9, Glomerular Filtration Rate > 60.0, Calcium Level 8.9, Magnesium Level 1.7L CBC/BMP Laboratory Tests 09/06/19 18:27 09/07/19 03:02 09/07/19 05:26 Discharge Medications Scheduled Ondansetron HCl (Zofran) 4 Mg Tablet, 4 MG PO TID Allergies Coded Allergies: lactose (Verified Allergy, Unknown, 05/08/19) MADINA MCARTHUR MD Sep 07, 2019 08:55
[2019-09-07] MEDS ORDERED: POTASSIUM CHLORIDE 10 MEQ SR TABLET PO SCH (09:00)
[2019-09-07] MEDS ORDERED: PANTOPRAZOLE 40MG VIAL (C9113 PER 1) IV SCH (09:00)
== END 2019-09-07 12:15 | disposition home or self-care (01) ==
LOC: M ED 17:51 → M ED INP 20:17 → ENRESERVDT 20:36 → ENRESERVTM 20:36 → M MSPAV 21:06
PROVIDERS: ADMIT Internal Medicine; ATTEND Internal Medicine
DX: R11.2 Nausea with vomiting, unspecified (principal); E87.6 Hypokalemia; E87.1 Hypo-osmolality and hyponatremia; E83.51 Hypocalcemia; E86.0 Dehydration; Z79.899 Other long term (current) drug therapy; Z91.011 Allergy to milk products; F12.10 Cannabis abuse, uncomplicated
CPT/HCPCS: 36415; 74021; 80048; 80076; 81001; 83690; 83735; 84703; 85025; 86677; 93005; 96365; 96372; 96375; 96376; 99285; C9113; J1644; J1885; J2405; J2765

== ENCOUNTER 2019-09-28 00:30 | Emergency (ER) | payer OTHER ==
[~2019-09-28] VITALS: Ht 157.5 cm; Wt 57.6 kg
[2019-09-28] MEDS ORDERED: HALOPERIDOL 5MG/ML VIAL (J1630 PER 1) IV ONE (01:00)
[2019-09-28] MEDS ORDERED: CAPSAICIN 0.025% CR 60 GM TOP ONE (01:00)
[2019-09-28] MEDS ORDERED: ONDANSETRON 4MG/2ML VIAL IV ONE (01:00)
[2019-09-28] MEDS ORDERED: ISOVUE-370 76% 100ML VIAL As Ordered ONE (01:05)
[2019-09-28 01:14] LABS: BASO % 0.3 % (0.0-1.0); HEMOGLOBIN 15.9 g/dl (12.0-15.5); LYMPH # 0.9 10^3/uL (1.5-5.0); LYMPH % 6.5 % (24.0-44.0); MEAN CORPUSCULAR HEMOGLOBIN 31.1 pg (27.0-33.0); MEAN CORPUSCULAR HGB CONC 33.8 g/dl (32.0-36.5); MONO # 0.3 10^3/uL (0.0-0.8); MONO % 2.2 % (0.0-5.0); NEUTROPHILS # 12.8 10^3/uL (1.5-8.5); NEUTROPHILS % 90.6 % (36.0-66.0); PLATELET COUNT, AUTOMATED 313 10^3/uL (150-450); RED BLOOD COUNT 5.11 10^6/uL (4.00-5.40); WHITE BLOOD COUNT 14.1 10^3/uL (4.0-10.0)
[2019-09-28] MEDS ORDERED: NS 1,000 ML IV ONE (01:30)
--- NOTE | 2019-09-28 01:50 | REPVR ---
PROCEDURE INFORMATION: Exam: CT Abdomen And Pelvis With Contrast Exam date and time: 09/28/2019 12:58 AM Age: 24 years old Clinical indication: Abdominal pain; Generalized; Additional info: Abd pain with n/v R/O infectious process TECHNIQUE: Imaging protocol: Computed tomography of the abdomen and pelvis with intravenous contrast. Axial, coronal and sagittal reformatted images were created and reviewed. Radiation optimization: All CT scans at this facility use at least one of these dose optimization techniques: automated exposure control; mA and/or kV adjustment per patient size (includes targeted exams where dose is matched to clinical indication); or iterative reconstruction. Contrast material: ISO; Contrast volume: 100 ml; Contrast route: AC; COMPARISON: CT ABD/PEL W/IV CONTRAST ONLY 09/04/2019 5:50 PM FINDINGS: Liver: Unremarkable. Gallbladder and bile ducts: No radiodense gallstones. No biliary ductal dilatation. Pancreas: Unremarkable. Spleen: Unremarkable. Adrenals: Unremarkable. Kidneys and ureters: No mass. No radiodense calculi. No hydronephrosis. Stomach and bowel: No bowel wall thickening. No obstruction. No pneumatosis. Appendix: Normal. Intraperitoneal space: No free fluid. No organized fluid collection. No free air. Vasculature: Unremarkable. No aneurysm. Lymph nodes: No pathologically enlarged lymph nodes. Bladder: Unremarkable. Reproductive: Small involuting right ovarian corpus luteal cyst with an adjacent follicle. Bones/joints: No acute osseous abnormality. Soft tissues: Unremarkable. IMPRESSION: 1. No CT evidence of acute intra-abdominal or pelvic pathology. 2. Additional findings, as above. Electronically signed by: Humberto Mcdonough On 09/28/2019 01:50:07 AM
[2019-09-28 01:56] LABS: ALBUMIN 4.6 GM/DL (3.2-5.2); BILIRUBIN,DIRECT 0.3 MG/DL (0.0-0.2); BILIRUBIN,TOTAL 1.2 MG/DL (0.2-1.0); TOTAL PROTEIN 8.5 GM/DL (6.4-8.2)
[2019-09-28] MEDS ORDERED: ONDA4TAB6 PO (01:56)
[2019-09-28 02:06] LABS: AMPHETAMINES LEVEL URINE NEGATIVE (NEGATIVE); BARBITURATES URINE NEGATIVE (NEGATIVE); BENZODIAZEPINES URINE NEGATIVE (NEGATIVE); CANNABINOIDS URINE POSITIVE (NEGATIVE); COCAINE METABOLITE URINE NEGATIVE (NEGATIVE); METHADONE URINE NEGATIVE (NEGATIVE); OPIATES URINE NEGATIVE (NEGATIVE); PHENCYCLIDINE URINE NEGATIVE (NEGATIVE)
[2019-09-28 02:40] VITALS: BP 123/77
== END 2019-09-28 02:41 | disposition home or self-care (01) ==
LOC: M ED 00:30
DX: F12.288 Cannabis dependence with other cannabis-induced disorder (principal)
CPT/HCPCS: 74177; 80047; 80076; 80307; 81001; 83690; 84702; 85025; 96374; 99284; J1630; J2405; Q9967

== ENCOUNTER 2019-10-14 01:39 | Emergency (ER) | payer OTHER ==
[~2019-10-14] VITALS: Ht 157.5 cm; Wt 59.1 kg
[2019-10-14] MEDS ORDERED: KETOROLAC 30 MG/ML 1ML VIAL IV ONE (02:00)
[2019-10-14] MEDS ORDERED: HALOPERIDOL 5MG/ML VIAL (J1630 PER 1) IV ONE (02:00)
[2019-10-14] MEDS ORDERED: NS 1,000 ML IV ONE (02:15)
[2019-10-14] MEDS ORDERED: PROC25SU24 PR (03:56)
[2019-10-14 04:00] VITALS: BP 112/65
== END 2019-10-14 04:01 | disposition home or self-care (01) ==
LOC: M ED 01:39
DX: F12.188 Cannabis abuse with other cannabis-induced disorder (principal); E73.9 Lactose intolerance, unspecified; F17.210 Nicotine dependence, cigarettes, uncomplicated
CPT/HCPCS: 80047; 84702; 96361; 96374; 96375; 99284; J1630; J1885

== ENCOUNTER 2019-10-15 06:06 | Emergency (ER) | payer OTHER ==
[~2019-10-15] VITALS: Ht 157.5 cm; Wt 58.8 kg
[~2019-10-15 06:06] MED LIST changes: +PROC25SU24 PR
[2019-10-15] MEDS ORDERED: NS 1,000 ML IV ONE (06:45)
[2019-10-15] MEDS ORDERED: ONDANSETRON 4MG/2ML VIAL IV ONE (06:45)
[2019-10-15 07:10] LABS: BASO % 0.3 % (0.0-1.0); EOS % 0.1 % (0.0-3.0); HEMATOCRIT 43.4 % (36.0-47.0); HEMOGLOBIN 14.7 g/dl (12.0-15.5); LYMPH # 1.7 10^3/uL (1.5-5.0); LYMPH % 19.2 % (24.0-44.0); MEAN CORPUSCULAR HEMOGLOBIN 31.1 pg (27.0-33.0); MEAN CORPUSCULAR HGB CONC 33.9 g/dl (32.0-36.5); MEAN CORPUSCULAR VOLUME 91.9 fl (80.0-96.0); MONO # 0.6 10^3/uL (0.0-0.8); MONO % 6.6 % (0.0-5.0); NEUTROPHILS # 6.4 10^3/uL (1.5-8.5); NEUTROPHILS % 73.3 % (36.0-66.0); PLATELET COUNT, AUTOMATED 262 10^3/uL (150-450); RED BLOOD COUNT 4.72 10^6/uL (4.00-5.40); WHITE BLOOD COUNT 8.8 10^3/uL (4.0-10.0)
[2019-10-15 07:31] LABS: ALT/SGPT 33 U/L (12-78); BILIRUBIN,DIRECT 0.3 MG/DL (0.0-0.2); BILIRUBIN,TOTAL 1.2 MG/DL (0.2-1.0); BLOOD UREA NITROGEN 10 MG/DL (7-18); CALCIUM LEVEL 9.4 MG/DL (8.5-10.1); CARBON DIOXIDE LEVEL 29 MEQ/L (21-32); CHLORIDE LEVEL 102 MEQ/L (98-107); CREATININE FOR GFR 0.68 MG/DL (0.55-1.30); GLOMERULAR FILTRATION RATE > 60.0 (>60); GLUCOSE, FASTING 97 MG/DL (70-100); LIPASE 38 U/L (73-393); POTASSIUM SERUM 3.1 MEQ/L (3.5-5.1); SODIUM LEVEL 140 MEQ/L (136-145); TOTAL PROTEIN 7.5 GM/DL (6.4-8.2)
[2019-10-15] MEDS ORDERED: METOCLOPRAMIDE INJ 10MG/2ML VIAL (J2765 PER 1) IV ONE (07:45)
[2019-10-15] MEDS ORDERED: POTASSIUM CHLORIDE 10 MEQ SR TABLET PO ONE (07:45)
[2019-10-15] MEDS ORDERED: KETOROLAC 30 MG/ML 1ML VIAL IV ONE (09:15)
[2019-10-15] MEDS ORDERED: HALOPERIDOL 5MG/ML VIAL (J1630 PER 1) IV ONE (09:15)
[2019-10-15 10:00] VITALS: BP 116/71
== END 2019-10-15 10:04 | disposition home or self-care (01) ==
LOC: M ED 06:06
DX: F12.188 Cannabis abuse with other cannabis-induced disorder (principal); R11.2 Nausea with vomiting, unspecified; E87.6 Hypokalemia; E80.6 Other disorders of bilirubin metabolism; Z91.011 Allergy to milk products
CPT/HCPCS: 80048; 80076; 83690; 85025; 96361; 96374; 96375; 99284; J1630; J1885; J2405; J2765

== ENCOUNTER 2019-10-22 08:18 | Emergency (ER) | payer OTHER ==
[~2019-10-22] VITALS: Ht 157.5 cm; Wt 59.0 kg
[2019-10-22] MEDS ORDERED: NS 1,000 ML IV ONE (08:45)
[2019-10-22 09:03] LABS: BASO % 0.2 % (0.0-1.0); HEMATOCRIT 44.6 % (36.0-47.0); HEMOGLOBIN 15.4 g/dl (12.0-15.5); LYMPH # 1.5 10^3/uL (1.5-5.0); LYMPH % 10.9 % (24.0-44.0); MEAN CORPUSCULAR HEMOGLOBIN 31.6 pg (27.0-33.0); MEAN CORPUSCULAR HGB CONC 34.5 g/dl (32.0-36.5); MEAN CORPUSCULAR VOLUME 91.4 fl (80.0-96.0); MONO # 0.7 10^3/uL (0.0-0.8); MONO % 5.4 % (0.0-5.0); NEUTROPHILS # 11.1 10^3/uL (1.5-8.5); PLATELET COUNT, AUTOMATED 319 10^3/uL (150-450); RED BLOOD COUNT 4.88 10^6/uL (4.00-5.40); WHITE BLOOD COUNT 13.4 10^3/uL (4.0-10.0)
[2019-10-22 09:34] LABS: AMPHETAMINES LEVEL URINE NEGATIVE (NEGATIVE); BARBITURATES URINE NEGATIVE (NEGATIVE); BENZODIAZEPINES URINE NEGATIVE (NEGATIVE); CANNABINOIDS URINE POSITIVE (NEGATIVE); COCAINE METABOLITE URINE NEGATIVE (NEGATIVE); METHADONE URINE NEGATIVE (NEGATIVE); OPIATES URINE NEGATIVE (NEGATIVE); PHENCYCLIDINE URINE NEGATIVE (NEGATIVE)
[2019-10-22 09:36] LABS: ALBUMIN 4.4 GM/DL (3.2-5.2); BILIRUBIN,DIRECT 0.4 MG/DL (0.0-0.2); BILIRUBIN,TOTAL 1.2 MG/DL (0.2-1.0); ETHYL ALCOHOL (ETHANOL) 0.004 % (0.000-0.010); MAGNESIUM LEVEL 1.3 MG/DL (1.8-2.4); TOTAL PROTEIN 7.8 GM/DL (6.4-8.2)
[2019-10-22] MEDS ORDERED: ISOVUE-370 76% 100ML VIAL As Ordered ONE (10:00)
[2019-10-22] MEDS ORDERED: HALOPERIDOL 5MG/ML VIAL (J1630 PER 1) IV ONE (10:00)
[2019-10-22 10:29] VITALS: BP 129/76
[2019-10-22] MEDS ORDERED: REGL10TA6 PO (11:01)
--- NOTE | 2019-10-24 14:21 | REP ---
REASON FOR EXAM: Abdominal pain. Preliminary report given by Dr. Tyson. Latest prior for comparison, 09/28/2019. CONTRAST: 100 mL Isovue-370. The lung bases are clear and unchanged. The liver, gallbladder, spleen, pancreas, adrenal glands, and kidneys are within normal limits. The abdominal aorta and para-aortic regions are within normal limits. The bowel loops and their mesenteries are within normal limits. There is no free fluid or free air. There is no intra-abdominal mass or adenopathy. CT PELVIS: The bowel loops and their mesenteries are within normal limits. There is no mass or adenopathy. There is no free fluid or free air. Bone window technique throughout the examination shows the osseous structures to be within normal limits. IMPRESSION: CT findings are within normal limits. There is a stable incidental left renal cyst. Electronically Signed by Raji Sanders DO 10/24/2019 03:19 P
== END 2019-10-22 11:05 | disposition home or self-care (01) ==
LOC: M ED 08:18
DX: R11.15 Cyclical vomiting syndrome unrelated to migraine (principal); F12.188 Cannabis abuse with other cannabis-induced disorder; N28.1 Cyst of kidney, acquired; F10.10 Alcohol abuse, uncomplicated; Z91.011 Allergy to milk products
CPT/HCPCS: 36415; 74177; 80047; 80076; 80307; 81001; 83690; 83735; 84702; 85025; 96361; 96374; 99284; G0480; J1630; Q9967

== ENCOUNTER 2019-11-06 09:35 | Emergency (ER) | payer OTHER ==
[~2019-11-06] VITALS: Ht 157.5 cm; Wt 60.4 kg
[~2019-11-06 09:35] MED LIST changes: +REGL10TA6 PO
[2019-11-06 09:36] VITALS: BP 124/84
[2019-11-06] MEDS ORDERED: HALOPERIDOL 5MG/ML VIAL (J1630 PER 1) IM STA (09:55)
[2019-11-06 10:22] LABS: BASO % 0.1 % (0.0-1.0); EOS % 0.1 % (0.0-3.0); HEMATOCRIT 44.6 % (36.0-47.0); HEMOGLOBIN 15.6 g/dl (12.0-15.5); LYMPH # 1.5 10^3/uL (1.5-5.0); LYMPH % 10.2 % (24.0-44.0); MEAN CORPUSCULAR HEMOGLOBIN 32.2 pg (27.0-33.0); MONO # 0.7 10^3/uL (0.0-0.8); MONO % 4.5 % (0.0-5.0); NEUTROPHILS # 12.6 10^3/uL (1.5-8.5); NEUTROPHILS % 84.7 % (36.0-66.0); PLATELET COUNT, AUTOMATED 341 10^3/uL (150-450); RED BLOOD COUNT 4.85 10^6/uL (4.00-5.40); WHITE BLOOD COUNT 14.9 10^3/uL (4.0-10.0)
[2019-11-06] MEDS ORDERED: NS 1,000 ML IV ONE (10:30)
[2019-11-06 10:50] LABS: ALBUMIN 4.4 GM/DL (3.2-5.2); ALT/SGPT 40 U/L (12-78); BILIRUBIN,DIRECT 0.4 MG/DL (0.0-0.2); BILIRUBIN,TOTAL 1.4 MG/DL (0.2-1.0); BLOOD UREA NITROGEN 10 MG/DL (7-18); CALCIUM LEVEL 9.6 MG/DL (8.5-10.1); CARBON DIOXIDE LEVEL 23 MEQ/L (21-32); CHLORIDE LEVEL 100 MEQ/L (98-107); CREATININE FOR GFR 0.93 MG/DL (0.55-1.30); GLOMERULAR FILTRATION RATE > 60.0 (>60); GLUCOSE, FASTING 115 MG/DL (70-100); LIPASE 51 U/L (73-393); POTASSIUM SERUM 3.3 MEQ/L (3.5-5.1); SODIUM LEVEL 138 MEQ/L (136-145); TOTAL PROTEIN 8.1 GM/DL (6.4-8.2)
== END 2019-11-06 12:10 | disposition home or self-care (01) ==
LOC: M ED 09:35
DX: R11.15 Cyclical vomiting syndrome unrelated to migraine (principal)
CPT/HCPCS: 80048; 80076; 83690; 85025; 96360; 96372; 99283; J1630

== ENCOUNTER 2019-11-21 01:44 | Emergency (ER) | payer OTHER ==
[~2019-11-21] VITALS: Ht 157.5 cm; Wt 59.1 kg
[2019-11-21] MEDS ORDERED: METOCLOPRAMIDE INJ 10MG/2ML VIAL (J2765 PER 1) IV ONE (02:00)
[2019-11-21] MEDS ORDERED: NS 1,000 ML IV ONE (02:00)
[2019-11-21 02:52] LABS: ALBUMIN 4.7 GM/DL (3.2-5.2); ALT/SGPT 47 U/L (12-78); BILIRUBIN,DIRECT 0.4 MG/DL (0.0-0.2); BILIRUBIN,TOTAL 1.6 MG/DL (0.2-1.0); BLOOD UREA NITROGEN 18 MG/DL (7-18); CALCIUM LEVEL 10.1 MG/DL (8.5-10.1); CARBON DIOXIDE LEVEL 27 MEQ/L (21-32); CHLORIDE LEVEL 91 MEQ/L (98-107); CREATININE FOR GFR 1.36 MG/DL (0.55-1.30); GLOMERULAR FILTRATION RATE 50.9 (>60); GLUCOSE, FASTING 114 MG/DL (70-100); LIPASE 51 U/L (73-393); POTASSIUM SERUM 3.1 MEQ/L (3.5-5.1); SODIUM LEVEL 131 MEQ/L (136-145); TOTAL PROTEIN 8.9 GM/DL (6.4-8.2)
[2019-11-21 03:03] LABS: HCG, SERUM QUALITATIVE NEGATIVE (NEGATIVE)
[2019-11-21] MEDS ORDERED: POTASSIUM CHLORIDE 10 MEQ SR TABLET PO ONE (03:15)
[2019-11-21 03:35] VITALS: BP 134/78
== END 2019-11-21 03:48 | disposition home or self-care (01) ==
LOC: M ED 01:44
DX: F12.988 Cannabis use, unspecified with other cannabis-induced disorder (principal); E87.6 Hypokalemia; R11.10 Vomiting, unspecified; R19.7 Diarrhea, unspecified; Z91.011 Allergy to milk products
CPT/HCPCS: 80048; 80076; 83690; 84703; 99284; J2765

== ENCOUNTER 2020-01-17 07:31 | Observation (INO) | payer OTHER ==
[~2020-01-17] VITALS: Ht 157.5 cm; Wt 63.8 kg
[2020-01-17] VITALS (9 sets, daily range): BP systolic 104–150; BP diastolic 63–78
[2020-01-17] MEDS ORDERED: NS 1,000 ML IV ONE ×3 (08:00→16:00)
[2020-01-17] MEDS ORDERED: ONDANSETRON 4MG/2ML VIAL IV ONE (08:00)
[2020-01-17 08:59] LABS: BASO % 0.2 % (0.0-1.0); HEMATOCRIT 40.3 % (36.0-47.0); LYMPH # 1.3 10^3/uL (1.5-5.0); LYMPH % 12.6 % (24.0-44.0); MEAN CORPUSCULAR HEMOGLOBIN 31.7 pg (27.0-33.0); MEAN CORPUSCULAR HGB CONC 34.7 g/dl (32.0-36.5); MEAN CORPUSCULAR VOLUME 91.4 fl (80.0-96.0); MONO # 0.5 10^3/uL (0.0-0.8); MONO % 5.1 % (0.0-5.0); NEUTROPHILS # 8.1 10^3/uL (1.5-8.5); NEUTROPHILS % 81.7 % (36.0-66.0); PLATELET COUNT, AUTOMATED 302 10^3/uL (150-450); RED BLOOD COUNT 4.41 10^6/uL (4.00-5.40); WHITE BLOOD COUNT 9.9 10^3/uL (4.0-10.0)
[2020-01-17] MEDS ORDERED: PANTOPRAZOLE 40MG VIAL (C9113 PER 1) IV ONE ×2 (09:00→16:15)
[2020-01-17 09:29] LABS: ALBUMIN 4.4 GM/DL (3.2-5.2); ALT/SGPT 23 U/L (12-78); BILIRUBIN,DIRECT 0.3 MG/DL (0.0-0.2); BILIRUBIN,TOTAL 1.2 MG/DL (0.2-1.0); BLOOD UREA NITROGEN 11 MG/DL (7-18); CALCIUM LEVEL 10.2 MG/DL (8.5-10.1); CARBON DIOXIDE LEVEL 26 MEQ/L (21-32); CHLORIDE LEVEL 104 MEQ/L (98-107); GLOMERULAR FILTRATION RATE > 60.0 (>60); GLUCOSE, FASTING 111 MG/DL (70-100); LIPASE 42 U/L (73-393); POTASSIUM SERUM 3.3 MEQ/L (3.5-5.1); SODIUM LEVEL 141 MEQ/L (136-145); TOTAL PROTEIN 7.4 GM/DL (6.4-8.2)
[2020-01-17 09:43] LABS: HCG, SERUM QUALITATIVE NEGATIVE (NEGATIVE)
[2020-01-17] MEDS ORDERED: ISOVUE-370 76% 100ML VIAL As Ordered ONE (09:47)
[2020-01-17] MEDS ORDERED: METOCLOPRAMIDE INJ 10MG/2ML VIAL (J2765 PER 1) IV ONE (10:00)
[2020-01-17 11:03] LABS: INR 1.02; PROTHROMBIN TIME 13.6 SECONDS (11.8-14.0)
[2020-01-17 11:04] LABS: PARTIAL THROMBOPLASTIN TIME 25.7 SECONDS (25.0-38.4)
[2020-01-17] MEDS ORDERED: ACETAMINOPHEN TAB 650MG DOSE (2X325MG) PO PRN (12:00)
[2020-01-17] MEDS: ONDANSETRON 4MG/2ML VIAL IV PRN ×2 (12:40→22:22)
[2020-01-17] MEDS ORDERED: fentaNYL 100 MCG/2 ML INJECTION (J3010) As Ordered ONE (16:33)
[2020-01-17] MEDS ORDERED: MIDAZOLAM INJ 2MG/2ML VIAL (J2250 PER 1MG) As Ordered ONE ×2 (16:33→17:06)
[2020-01-17] MEDS ORDERED: ONDANSETRON 4MG/2ML VIAL As Ordered ONE ×2 (16:33→17:39)
[2020-01-17] MEDS ORDERED: SUCCINYLCHOLINE 100 MG/5 ML SYRINGE (J0330) As Ordered ONE (16:33)
[2020-01-17] MEDS ORDERED: propofoL 200 MG/20 ML VIAL As Ordered ONE (16:33)
[2020-01-17] MEDS ORDERED: LIDOCAINE 2% 100MG/5ML SDV (FOR ANES.) As Ordered ONE (16:33)
[2020-01-17] MEDS ORDERED: ROCURONIUM BROMIDE 50 MG/5 ML VIAL As Ordered ONE (16:33)
[2020-01-17] MEDS ORDERED: dexameTHASONE 4 MG/ML 1ML VIAL (J1100 PER 1MG) As Ordered ONE (16:33)
[2020-01-17] MEDS ORDERED: PIPERACILLIN/TAZOBACTAM SOD 3.375 GM in D5W MINI-BAG PLUS 50 ML IV SCH (17:00)
[2020-01-17] MEDS ORDERED: SUGAMMADEX SODIUM 500 MG/5 ML VIAL (BRIDION) As Ordered ONE (17:04)
[2020-01-17] MEDS ORDERED: PHENYLephrine HCL 500 MCG/5 ML (100MCG/ML) SYRINGE (J2370) As Ordered ONE (17:07)
--- NOTE | 2020-01-17 17:12 | HPEPDOC ---
General Date of Admission Jan 17, 2020 at 07:32 Date of Service: Jan 17, 2020 Attending Physician: KAT RUSHING MD Chief Complaint The patient is a 24-year-old female admitted with a reason for visit of Cannabinoid Hyperemesis Syndrome Upper Gi Bleed. Source: Patient Exam Limitations: No limitations Timing/Duration: 4-6 hours Severity: Severe Associated Symptoms: Nausea, Vomiting History of Present Illness 24-year-old W with a history of marijuana associated cyclic vomiting and hyperemesis precipitatiing prior admissions, who continues to use marijuana daily for appetite stimualation who presented copious hyperemesis at least 5-10 times per day that turned blood tinged precipitating her presentation. In the ED, she was otherwise initially HDS, afebrile, breathing comfortably on room air, but was noted to drink massive amounts of water that would precipitate emesis and was encouraged to strop drinking the water and was given zofran, reglan and a dose of haldol per ED provider and was recommended for observation admission. A few hours into the admission, while in the ED, she had continued consumption of water and hyperemesis with wretching and was found down by nursing with pool of bloody watery emesis with fresh clots c/f Hellen Pagan tear, was notably briefly unresponsive and may have possibly seized per nursing observation, and r egained consciousness on their attempt to perform CPR. She was placed on 100% NRB, was tachycardic to 150s, otherwise SBP in 100s and was given rapid 2u of pRBCs for estimated loss of a few 100s cc blood mixed in with the water. Of note, initial Hgb was 14. On my evaluation, she was now responsive, was able to give her mother's phone number from memory, consented for blood transfusion and HR had improved to low 100s and BP 110s while still on NRB. Surgery was consulted and Dr. Taveras just informed me that he is taking her to the OR with suspicion of a Hellen Pagan tear. Of note, on initial evaluation prior to her decompensation, she had a CTA abdomen that was unrevealing, BMP that showed K 3.3 but otherwise wnl, WBC9.9, hgb 14, platelets 302, Cr 0.7, negative beta HGB, normal LFTs and lipase. She will be admitted to the ICU for close observation. Home Medications No Active Prescriptions or Reported Meds Allergies Coded Allergies: lactose (Verified Allergy, Unknown, 05/08/19) Past Medical History Medical History -Daily marijuana use with associated cyclic vomiting syndrome Surgical History Bilateral ear tube placement as a child Family History - Mother with no significant past medical history - Father with a history of scoliosis - No history of malignancies Social History * Smoker: Denies Alcohol: occationally Drugs: marijuana Recent Travel/Sick Contacts: Denies: Recent travel, Recent sick contacts Psychosocial History: No pertinent psych hx - Denies the use of tobacco; patient reports social alcohol use. Uses marijuana daily, most recent use was a few hours prior to arrival - Denies recent travel or sick contacts - Lives with fianc A-FIB/CHADSVASC A-FIB History Current/History of A-Fib/PAF?: No Current PO Anticoag Therapy: No Age/Risk Factor Scoring CHADSVASC: CHADSVASC Response (Comments) Value Age Risk Factor Age < 65 years old 0 Gender Risk Factor Female 1 Hx of CHF No 0 Hx of HTN No 0 Hx of Stroke/TIA/or VTE No 0 Hx of Diabetes No 0 Hx of Vascular Disease No 0 Total 1 Treatment Treatment ordered: NONE Reason Anticoagulant not given: Not indicated/[id number] Review of Systems Constitutional: Denies: Chills, Fever, Night Sweats Eyes: Denies: Pain, Vision change ENT: Denies: Head Aches, Ear Pain, Dysphagia Skin: Denies: Rash, Lesions, Breakdown Pulmonary: Denies: Dyspnea, Cough Cardiovascular: Denies: Chest Pain, Palpitations, Orthopnea, Paroxysmal Noc. Dyspnea, Lt Headedness Gastrointestinal: Reports: Nausea, Vomiting, Other Symptoms (hematemesis); Denies: Abdominal Pain, Diarrhea, Constipation, Melena, Hematochezia Genitourinary: Denies: Dysuria, Frequency, Incontinence, Retention Hematologic: Denies: Bruising, Bleeding Excessively Endocrine: Denies: Polydipsia, Polyphagia, Polyuria, Heat Intolerance, Cold Intolerance, Other Endocrine Sx Musculoskeletal: Denies: Neck Pain, Back Pain, Joint Pain, Muscle Pain, Spasms Neurological: Denies: Weakness, Numbness, Change in speech, Confusion Psych: Reports: Mood Normal; Denies: Depression, Memory Issues Physical Examination General Exam: Positive: Alert, No Acute Distress Eye Exam: Positive: PERRLA, Conjunctiva & lids normal, EOMI; Negative: Sclera icteric ENT Exam: Positive: Atraumatic, Mucous membr. moist/pink, Pharynx Normal, Tongue Midline, Other ENT (dry blood in mouth); Negative: Pharyngeal Edema Neck Exam: Positive: Supple; Negative: JVD, thyromegaly Chest Exam: Positive: Clear to auscultation, Normal air movement Heart Exam: Positive: Tachycardic, Regular Rhythm, Normal S1, Normal S2; Negative: Gallops, Murmurs, Rubs Telemetry: Positive: Sinus, Tachycardia Abdomen Exam: Positive: Normal bowel sounds, Soft; Negative: Tenderness, Hepatospenomegaly Extremity Exam: Positive: Normal pulses; Negative: Clubbing, Cyanosis, Edema Skin Exam: Positive: Nl turgor and temperature; Negative: Breakdown, Lesion Neuro Exam: Positive: Normal Gait, Normal Speech, Cranial Nerves 3-12 NL, Reflexes 2+ Psych Exam: Positive: Mental status NL, Mood NL, Oriented x 3 Vital Signs Vital Signs Date Time Temp Pulse Resp B/P (MAP) Pulse Ox O2 Delivery O2 Flow Rate FiO2 01/17/20 15:46 124 18 124/85 (98) 100 Room Air 01/17/20 12:34 96.4 Laboratory Data Labs 24H Laboratory Tests 2 01/17/20 08:20: Immature Granulocyte % (Auto) 0.4, Neutrophils (%) (Auto) 81.7H, Lymphocytes (%) (Auto) 12.6L, Monocytes (%) (Auto) 5.1H, Eosinophils (%) (Auto) 0.0, Basophils (%) (Auto) 0.2, Neutrophils # (Auto) 8.1, Lymphocytes # (Auto) 1.3L, Monocytes # (Auto) 0.5, Eosinophils # (Auto) 0.0, Basophils # (Auto) 0.0, Nucleated Red Blood Cells % (auto) 0.0, Anion Gap 11, Glomerular Filtration Rate > 60.0, Calcium Level 10.2H, Total Bilirubin 1.2H, Direct Bilirubin 0.3H, Aspartate Amino Transf (AST/SGOT) 16, Alanine Aminotransferase (ALT/SGPT) 23, Alkaline Phosphatase 72, Total Protein 7.4, Albumin 4.4, Albumin/Globulin Ratio 1.5, Lipase 42L, Human Chorionic Gonadotropin, Qual NEGATIVE 01/17/20 10:34: Prothrombin Time 13.6, Prothromb Time International Ratio 1.02, Activated Partial Thromboplast Time 25.7 CBC/BMP Laboratory Tests 01/17/20 08:20 Assessment/Plan 24 yo W with daily marijuana use with a history of cyclic vomiting associated with her marijuana use who presented with hyperemesis with blood tinged emesis that became shannon hematemesis in the ED c/f Ehllen Pagan tear now going to the OR. UGIB: Most likely 2/2 repeated shearing from hyperemesis -consulted surgery, going to OR -protonix BID IV -NPO -IVF -s/p 2u pRBC -repeat CBC at 6PM -AM CBC Intractable nausea and vomiting 2/2 marijuana use -No abdominal complaints with unrevealing imaging - Hemodynamically stable and afebrile - f/u urine tox screen - Lipase and LFTs wnl - continue IV fluid hydration - Will continue with symptomatic control with Zofran and reglan PRN Hypokalemia - possibly 2/2 vomiting - will give K run 4 IV - Will continue with telemetry monitoring Gastrointestinal prophylaxis - Will start Protonix DVT prophylaxis - TEDs and Sequentials Dispo: ICU for close monitoring, likely med/surg by tomorrow morning if stable and will maintain as obs status for now. Plan / VTE VTE Prophylaxis Ordered?: Yes KAT RUSHING MD Jan 17, 2020 17:12
[2020-01-17] MEDS: LR 1,000 ML IV SCH ×2 (17:24→18:40)
[2020-01-17] MEDS ORDERED: ONDANSETRON 4MG/2ML VIAL IV PRN (17:45)
[2020-01-17] MEDS ORDERED: fentaNYL 100 MCG/2 ML INJECTION (J3010) IV PRN (17:45)
[2020-01-17] MEDS: NS 1,000 ML IV SCH ×2 (18:36→22:09)
[2020-01-17] MEDS: KCL 10MEQ/100ML SWI (KRUN) 10 MEQ in IV 1 EA IV SCH ×4 (18:42→22:27)
[2020-01-17 19:48] LABS: HEMATOCRIT 30.8 % (36.0-47.0); MEAN CORPUSCULAR HEMOGLOBIN 31.6 pg (27.0-33.0); MEAN CORPUSCULAR HGB CONC 33.8 g/dl (32.0-36.5); MEAN CORPUSCULAR VOLUME 93.6 fl (80.0-96.0); PLATELET COUNT, AUTOMATED 176 10^3/uL (150-450); RED BLOOD COUNT 3.29 10^6/uL (4.00-5.40); WHITE BLOOD COUNT 10.7 10^3/uL (4.0-10.0)
[2020-01-17 20:02] LABS: HEMOGLOBIN 10.4 g/dl (12.0-15.5)
[2020-01-17 20:48] LABS: BLOOD UREA NITROGEN 19 MG/DL (7-18); CARBON DIOXIDE LEVEL 26 MEQ/L (21-32); CHLORIDE LEVEL 114 MEQ/L (98-107); CREATININE FOR GFR 0.48 MG/DL (0.55-1.30); GLOMERULAR FILTRATION RATE > 60.0 (>60); GLUCOSE, FASTING 109 MG/DL (70-100); MAGNESIUM LEVEL 1.5 MG/DL (1.8-2.4); POTASSIUM SERUM 3.8 MEQ/L (3.5-5.1); SODIUM LEVEL 143 MEQ/L (136-145)
[2020-01-17] MEDS ORDERED: MAG SULF 1GM/100ML (MAG RUN) 1 GM in IV 1 EA IV ONE (22:00)
[2020-01-17 22:41] LABS: NT-PRO BNP 123 PG/ML (<125); TROPONIN I < 0.02 NG/ML (< 0.10)
[2020-01-18] VITALS (11 sets, daily range): BP systolic 101–141; BP diastolic 55–91
--- NOTE | 2020-01-18 00:22 | REPVR ---
PROCEDURE INFORMATION: Exam: CT Head Without Contrast Exam date and time: 01/17/2020 4:15 PM Age: 24 years old Clinical indication: Possible seizure, altered mental status, unresponsive period TECHNIQUE: Imaging protocol: Computed tomography of the head without contrast. Radiation optimization: All CT scans at this facility use at least one of these dose optimization techniques: automated exposure control; mA and/or kV adjustment per patient size (includes targeted exams where dose is matched to clinical indication); or iterative reconstruction. COMPARISON: No relevant prior studies available. FINDINGS: Brain: There is no evidence for an acute large vessel territorial infarct, intracranial hemorrhage, mass, mass effect, midline shift, or herniation. The cortical gyration pattern, basal ganglia, thalami, and cerebellum are normal in appearance. Ventricles: Normal. No hydrocephalus. Bones/joints: The skull is intact. No suspicious osteolytic or osteoblastic lesion. Sinuses: The imaged portions of the sinuses are well-aerated. No air-fluid levels are noted in the sinuses. Mastoid air cells: Clear. Soft tissues: Unremarkable. No soft tissue fluid collection. IMPRESSION: No acute intracranial abnormality. Electronically signed by: Aguilar Friedman On 01/18/2020 00:22:13 AM
[2020-01-18] MEDS: ONDANSETRON 4MG/2ML VIAL IV PRN (02:47)
[2020-01-18 05:00] LABS: HEMATOCRIT 27.4 % (36.0-47.0); HEMOGLOBIN 9.2 g/dl (12.0-15.5); MEAN CORPUSCULAR HEMOGLOBIN 31.4 pg (27.0-33.0); MEAN CORPUSCULAR HGB CONC 33.6 g/dl (32.0-36.5); MEAN CORPUSCULAR VOLUME 93.5 fl (80.0-96.0); PLATELET COUNT, AUTOMATED 183 10^3/uL (150-450); RED BLOOD COUNT 2.93 10^6/uL (4.00-5.40); WHITE BLOOD COUNT 9.8 10^3/uL (4.0-10.0)
[2020-01-18 05:23] LABS: BLOOD UREA NITROGEN 11 MG/DL (7-18); CALCIUM LEVEL 7.3 MG/DL (8.5-10.1); CARBON DIOXIDE LEVEL 25 MEQ/L (21-32); CHLORIDE LEVEL 115 MEQ/L (98-107); CREATININE FOR GFR 0.43 MG/DL (0.55-1.30); GLOMERULAR FILTRATION RATE > 60.0 (>60); GLUCOSE, FASTING 98 MG/DL (70-100); MAGNESIUM LEVEL 1.9 MG/DL (1.8-2.4); POTASSIUM SERUM 3.4 MEQ/L (3.5-5.1); SODIUM LEVEL 146 MEQ/L (136-145)
[2020-01-18 06:56] LABS: AMPHETAMINES LEVEL URINE NEGATIVE (NEGATIVE); BARBITURATES URINE NEGATIVE (NEGATIVE); BENZODIAZEPINES URINE POSITIVE (NEGATIVE); CANNABINOIDS URINE POSITIVE (NEGATIVE); COCAINE METABOLITE URINE NEGATIVE (NEGATIVE); METHADONE URINE NEGATIVE (NEGATIVE); OPIATES URINE NEGATIVE (NEGATIVE); PHENCYCLIDINE URINE NEGATIVE (NEGATIVE)
[2020-01-18] MEDS ORDERED: METOCLOPRAMIDE INJ 10MG/2ML VIAL (J2765 PER 1) IV PRN (07:15)
[2020-01-18] MEDS: NS 1,000 ML IV SCH ×3 (08:00→20:23)
[2020-01-18] MEDS ORDERED: KCL 10MEQ/100ML SWI (KRUN) 10 MEQ in IV 1 EA IV SCH (08:00)
[2020-01-18] MEDS: PANTOPRAZOLE 40MG VIAL (C9113 PER 1) IV SCH ×2 (09:00→20:21)
--- NOTE | 2020-01-18 09:36 | IPNPDOC ---
Text Note Date of Service The patient was seen on 01/18/20. NOTE Patient with chronic intermittent hyperemesis presents yesterday with bloody v omiting and taken emergently to the OR when she was found hypotensive, passed out. She was found to have monik-clemente tear which was clipped. Stable post procedure VS still tachycardic Awake, alert, oriented abdomen, soft nontender, nondistended impression chronic intermittent hyperemesis postulated to be secondary to marijuana use spoke to patient about stopping this habit, not really that hopeful she will comply monik clemente tear s/p clipping advance to regular diet try round the clock zofran for the nausea. VS,Fishbone, I+O VS, Fishbone, I+O Laboratory Tests 01/17/20 19:33 01/18/20 04:42 Vital Signs Date Time Temp Pulse Resp B/P (MAP) Pulse Ox O2 Delivery O2 Flow Rate FiO2 01/18/20 08:00 97.7 77 18 107/80 (89) 99 Room Air 01/17/20 17:30 10 I&O- Last 24 Hours up to 6 AM 01/18/20 06:00 Intake Total 3740 ml Output Total 5450 ml Balance -1710 ml ARI AHN MD Jan 18, 2020 09:36
[2020-01-18] MEDS: ONDANSETRON 4MG/2ML VIAL IV SCH ×3 (11:48→23:43)
--- NOTE | 2020-01-18 12:34 | IPNPDOC ---
Text Note Date of Service The patient was seen on 01/18/20. NOTE Subjective: -Reportedly had episode of SVT with rate 160s overnight per nursing reports. Asymptomatic. EKG with sinus tachycardia, troponin negative, no report of chest pain -had Hellen Pagan tear repair by Dr. Taveras yesterday after copious marijuana associated hyperemesis with retching with eventual shannon hematemesis. -had 2u pRBCs yesterday -Mild nausea Objective: Vitals: HDS, afebrile, on room air General: NAD HEENT: NCAT, anicteric, PERRLA, EOMI, dry MM Neck: No adenopathy, thyromegaly, swelling or reported pain Pulm: CTAB, breathing comfortably on room air Cardiac: RRR, no mrg Abd: Normoactive sounds, soft, NTND Ext: WWP, no LE edema Neuro: AOx3, CN2-12 intact, 5/5 strength throughout Psych: Alert, awake, cooperative, normal affect Labs: WBC 9.8 hgb 9.2 platelets 183 na 146 K 3.4 Cr 0.43 mag 1.9 Ca 7.3 Imaging: CT head no contast - no acute intracranial abnormalities Assessment: 24 yo W with daily marijuana use with a history of cyclic vomiting associated with her marijuana use who presented with hyperemesis with blood tinged emesis that became shannon hematemesis in the ED now s/p Hellen Pagan tear repair. UGIB: 2/2 repeated shearing from hyperemesis now s/p Hellen Pagan tear repair -consulted surgery, s/p Hellen Pagan tear repair by Dr. Taveras -protonix BID -advanced to regular diet by Dr. Taveras -IVF, NS at 100cc/hr -s/p 2u pRBC Reported episodes of brief VT and sinus tachycardia: likely secondary to drug use with pending tox screen and/or electrolyte abnormalities -replete K and mag aggressively -telemetry -f/u tox screen -EKG was unrevealing with sinus tachycardia -troponin was negative -has no cardiac history and will defer echo etc for now in this young otherwise healthy young woman. Will monitor closely Intractable nausea and vomiting 2/2 marijuana use -No abdominal complaints with unrevealing imaging - Hemodynamically stable and afebrile - f/u urine tox screen, still pending - Lipase and LFTs wnl - continue IV fluid hydration - Will continue with symptomatic control with Zofran standing and reglan PRN Hypokalemia - 2/2 GI losses - will give K 40 PO - Will continue with telemetry monitoring Gastrointestinal prophylaxis - continue Protonix DVT prophylaxis - TEDs and Sequentials Dispo: transfer to med/surg with tele with likely discharge home tomorrow VS,Fishbone, I+O VS, Fishbone, I+O Laboratory Tests 01/17/20 08:20 01/17/20 19:33 01/18/20 04:42 Vital Signs Date Time Temp Pulse Resp B/P (MAP) Pulse Ox O2 Delivery O2 Flow Rate FiO2 01/18/20 06:00 102 16 118/74 (89) 98 Room Air 01/18/20 04:00 97.9 01/17/20 17:30 10 I&O- Last 24 Hours up to 6 AM 01/18/20 06:00 Intake Total 3740 ml Output Total 5450 ml Balance -1710 ml KAT RUSHING MD Jan 18, 2020 07:20
[2020-01-18] MEDS ORDERED: POTASSIUM CHLORIDE 10 MEQ SR TABLET PO ONE (12:45)
[2020-01-19] VITALS: BP 103/57
[2020-01-19] MEDS: ONDANSETRON 4MG/2ML VIAL IV SCH (05:12)
[2020-01-19] MEDS: NS 1,000 ML IV SCH (05:12)
[2020-01-19 08:00] VITALS: BP 108/72
[2020-01-19] MEDS ORDERED: PANT40TA29 PO (08:06)
[2020-01-19] MEDS ORDERED: ONDA-83 PO (08:09)
[2020-01-19] MEDS ORDERED: POTASSIUM CHLORIDE 10 MEQ SR TABLET PO ONE (08:15)
[2020-01-19] MEDS ORDERED: ONDANSETRON 4 MG TAB PO PRN (08:15)
[2020-01-19] MEDS ORDERED: PANTOPRAZOLE 40MG TAB (PROTONIX) PO SCH (09:00)
[2020-01-19 09:22] LABS: HEMATOCRIT 28.4 % (36.0-47.0); HEMOGLOBIN 9.3 g/dl (12.0-15.5); MEAN CORPUSCULAR HEMOGLOBIN 31.1 pg (27.0-33.0); MEAN CORPUSCULAR HGB CONC 32.7 g/dl (32.0-36.5); PLATELET COUNT, AUTOMATED 164 10^3/uL (150-450); RED BLOOD COUNT 2.99 10^6/uL (4.00-5.40); WHITE BLOOD COUNT 7.3 10^3/uL (4.0-10.0)
[2020-01-19 09:43] LABS: BLOOD UREA NITROGEN 2 MG/DL (7-18); CALCIUM LEVEL 8.1 MG/DL (8.5-10.1); CARBON DIOXIDE LEVEL 25 MEQ/L (21-32); CHLORIDE LEVEL 109 MEQ/L (98-107); GLOMERULAR FILTRATION RATE > 60.0 (>60); GLUCOSE, FASTING 108 MG/DL (70-100); POTASSIUM SERUM 3.4 MEQ/L (3.5-5.1); SODIUM LEVEL 141 MEQ/L (136-145)
--- NOTE | 2020-01-19 11:08 | DS.PDOC ---
Discharge Summary General Date of Admission Jan 17, 2020 at 07:32 Date of Discharge 01/19/2020 Attending Physician: KAT RUSHING MD Discharge Summary PROCEDURES PERFORMED DURING STAY: Monik Pagan tear repair on 01/17/2020 ADMITTING DIAGNOSES: 1. Cannabinoid Hyperemesis Syndrome 2. Upper Gi Bleed. DISCHARGE DIAGNOSES: 1. Cannabinoid Hyperemesis Syndrome 2. Upper Gi Bleed 2/2 monik pagan tear COMPLICATIONS/CHIEF COMPLAINT: Cannabinoid Hyperemesis Syndrome Upper Gi Bleed. HISTORY OF PRESENT ILLNESS: 24-year-old W with a history of marijuana associated cyclic vomiting and hyperemesis precipitating prior admissions, who continues to use marijuana daily for appetite stimulation who presented w/ copious hyperemesis at least 5-10 times per day that turned blood tinged precipitating her presentation. HOSPITAL COURSE: In the ED, she was otherwise initially HDS, afebrile, breathing comfortably on room air, but was noted to drink massive amounts of water that would precipitate emesis and was encouraged to strop drinking the water and was given zofran, reglan and a dose of haldol per ED provider and was recommended for observation admission. A few hours into the admission, while in the ED, she had continued consumption of large volumes of water and hyperemesis with retching and was found down by nursing with pool of bloody watery emesis with fresh clots c/f Monik Pagan tear, was notably briefly unresponsive and may have possibly seized per nursing observation, and regained consciousness on their attempt to perform CPR. She was briefly placed on 100% NRB, was tachycardic to 150s, otherwise SBP in 100s and was given rapid 2u of pRBCs for estimated loss of a few 100s cc blood mixed in with the water. Of note, initial Hgb was 14 (given she was dehydrated and likely hemoconcentrated). On my evaluation, she was now responsive, was able to give her mother's phone number from memory, consented for blood transfusion and HR had improved to low 100s and BP 110s while still on NRB. Surgery was consulted and Dr. Taveras performed Monik Pagan tear repair. Of note, on initial evaluation prior to her decompensation, she had a CTA abdomen that was unrevealing, BMP that showed K 3.3 but otherwise wnl, WBC9.9, hgb 14, platelets 302, Cr 0.7, negative beta HGB, normal LFTs and lipase. She was admitted to the ICU for close observation post Mallowry Pagan tear repair where she did well except for one episode of non-sustained supraventricular tachycardia and was later transferred to [facility]. She is now being discharged home on a regular diet, with PRN zofran and protonix 4mg PO daily. I have strongly urged her to please stop using marijuana and discuss other appetite stimulation strategies with her PCP as marijuana has been detrimental to her overall health. She expressed understanding. She will have a post surgical follow up visit with Dr. Taveras in 2 weeks and PCP follow up within 1 week. DISCHARGE MEDICATIONS: Please see below. ALLERGIES: Please see below. PHYSICAL EXAMINATION ON DISCHARGE: VITAL SIGNS: Please see below. General: NAD HEENT: NCAT, anicteric, PERRLA, EOMI, dry MM Neck: No adenopathy, thyromegaly, swelling or reported pain Pulm: CTAB, breathing comfortably on room air Cardiac: RRR, no mrg Abd: Normoactive sounds, soft, NTND Ext: WWP, no LE edema Neuro: AOx3, CN2-12 intact, 5/5 strength throughout Psych: Alert, awake, cooperative, normal affect LABORATORY DATA: Please see below. IMAGING: CT head no contast - no acute intracranial abnormalities PROGNOSIS: Good if she refrains from marijuana use ACTIVITY: As tolerated DIET: Regular DISCHARGE PLAN: Home with PRN zofran and daily protonix DISPOSITION: Home DISCHARGE INSTRUCTIONS: 1. Please refrain from consuming marijuana ITEMS TO FOLLOWUP ON ON OUTPATIENT: 1. Monik pagan tear repair follow up DISCHARGE CONDITION: Stable TIME SPENT ON DISCHARGE: 52 minutes. Vital Signs/I&Os Vital Signs Date Time Temp Pulse Resp B/P (MAP) Pulse Ox O2 Delivery O2 Flow Rate FiO2 01/19/20 00:00 98.5 69 16 103/57 (72) 100 Room Air 01/17/20 17:30 10 I&O- Last 24 Hours up to 6 AM 01/19/20 06:00 Intake Total 3880 ml Output Total 2320 ml Balance 1560 ml Discharge Medications Scheduled Pantoprazole Sodium (Pantoprazole Sodium) 40 Mg Tablet., 40 MG PO DAILY Scheduled PRN Ondansetron HCl (Ondansetron HCl) 4 Mg Tablet, 4 MG PO Q6HP PRN for NAUSEA OR VOMITING Allergies Coded Allergies: lactose (Verified Allergy, Unknown, 05/08/19) KAT RUSHING MD Jan 19, 2020 08:20
--- NOTE | 2020-01-25 11:26 | ROOR ---
Patient Name: Meagan Winston Procedure Date: 01/17/2020 5:12 PM Date of : 1995 Age: 24 Gender: Female Note Status: Finalized Procedure: Upper GI endoscopy Indications: Hematemesis, Active gastrointestinal bleeding Providers: Aren Taveras MD Referring MD: 2. Inpatient 2. Inpatient Requesting Provider: Medicines: General Anesthesia Complications: No immediate complications. Procedure: Pre-Anesthesia Assessment: - Prior to the procedure, a History and Physical was performed, and patient medications and allergies were reviewed. The patient is competent. The risks and benefits of the procedure and the sedation options and risks were discussed with the patient. All questions were answered and informed consent was obtained. Patient identification and proposed procedure were verified by the physician, the nurse and the anesthesiologist in the procedure room. Mental Status Examination: alert and oriented. Airway Examination: normal oropharyngeal airway and neck mobility. Respiratory Examination: clear to auscultation. CV Examination: tachycardia noted. Prophylactic Antibiotics: The patient does not require prophylactic antibiotics. Prior Anticoagulants: The patient has taken no previous anticoagulant or antiplatelet agents. ASA Grade Assessment: III - A patient with severe systemic disease. After reviewing the risks and benefits, the patient was deemed in satisfactory condition to undergo the procedure. The anesthesia plan was to use general anesthesia. Immediately prior to administration of medications, the patient was re-assessed for adequacy to receive sedatives. The heart rate, respiratory rate, oxygen saturations, blood pressure, adequacy of pulmonary ventilation, and response to care were monitored throughout the procedure. The physical status of the patient was re-assessed after the procedure. The Endoscope was introduced through the mouth, and advanced to the second part of duodenum. The upper GI endoscopy was technically difficult and complex due to excessive bleeding. The patient tolerated the procedure fairly well. Findings: LA Grade A (one or more mucosal breaks less than 5 mm, not extending between tops of 2 mucosal folds) esophagitis with no bleeding was found. ,clotted blood, exposed blood vessel, associated with monik clemente tear was found at the gastroesophageal junction. The entire examined stomach was normal. The ampulla, first portion of the duodenum and second portion of the duodenum were normal. A 5 mm non-bleeding Monik-Clemente tear with stigmata of recent bleeding was found. For hemostasis, three hemostatic clips were successfully placed (MR conditional). There was no bleeding at the end of the procedure. Impression: - LA Grade A erosive esophagitis. - ,clotted blood, exposed blood vessel, associated with monik clemente tear in the gastroesophageal junction. Clips (MR conditional) were placed. - Normal stomach. - Normal ampulla, first portion of the duodenum and second portion of the duodenum. - No specimens collected. Recommendation: - Admit the patient to hospital [facility] for observation. - NPO today. Aren Taveras MD Aren Taveras MD 01/17/2020 5:38:41 PM Electronically signed by Aren Taveras MD Number of Addenda: 0 Note Initiated On: 01/17/2020 5:12 PM Estimated Blood Loss: Estimated blood loss was minimal.
--- NOTE | 2020-01-30 11:07 | ECGEPIP ---
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
--- NOTE | 2020-02-07 12:08 | ECGEPIP ---
[facility] Test Date: 2020-01-17 Pat Name: NATALIYA BEASLEY Department: Room: [place] [address] Gender: Female Rn Dermatology: : 1995 Requested By: HUMBERTO ESPITIA Order Number: [id number] Reading MD: Osman Vázquez Measurements Intervals [place] Rate: 110 P: 50 KS: 99 QRS: 70 QRSD: 73 T: 0 QT: 329 QTc: 445 Interpretive Statements SINUS TACHYCARDIA WITH SHORT [place] INTERVAL NONSPECIFIC ST & T-WAVE ABNORMALITY ABNORMAL RHYTHM ECG SEE SCANNED DOWNTIME REPORT
--- NOTE | 2020-02-13 10:18 | REP ---
CONTRAST ENHANCED CT OF THE ABDOMEN CLINICAL: Pain and hematemesis. TECHNIQUE: Axial contrast enhanced images of the abdomen using angiographic technique with multiplanar reformations. 100 cc Isovue-370 intravenous contrast material administered without complication. FINDINGS: The aorta and branch vessels are normal. There is no evidence for aneurysm or dissection. Liver, spleen, pancreas, gallbladder, bilateral adrenal glands, and kidneys are normal. No ascites. Visualized small and large bowel is unremarkable. No free air. No adenopathy. No free fluid. Musculoskeletal structures are intact. IMPRESSION: * Normal aorta and vasculature without aneurysm or dissection. * No acute abdominal pathology appreciated. MTDD
--- NOTE | 2020-02-13 10:18 | REP ---
CONTRAST ENHANCED CHEST CT USING ANGIOGRAPHIC TECHNIQUE CLINICAL: Chest pain and hematemesis. TECHNIQUE: Axial contrast enhanced images from the thoracic inlet to the upper abdomen with multiplanar reformations using angiographic technique and 100 cc Isovue-370 intravenous contrast material. FINDINGS: Thoracic aorta is normal and without aneurysm or dissection. Pulmonary vasculature is normal and without evidence for filling defect to suggest thrombus. Heart and pericardium are normal. The bilateral lung lacey are well aerated, symmetric, and clear. No consolidation, effusion, or pneumothorax. No adenopathy. Skeletal structures are intact. IMPRESSION: Normal angiographic evaluation of the chest. Normal thoracic aorta and pulmonary vasculature. No acute mediastinal or pleuroparenchymal process. MTDD
--- NOTE | 2020-02-13 10:19 | REP ---
CHEST X-RAY: CLINICAL: Chest pain and hematemesis. TECHNIQUE: PA and lateral FINDINGS: Mediastinum and cardiac silhouette are normal. Lung lacey are clear. No focal consolidation, effusion or pneumothorax. Skeletal structures are intact. IMPRESSION: Normal chest x-ray. No acute cardiopulmonary process. MTDD
== END 2020-01-19 11:55 | disposition home health service (06) ==
LOC: M ED 07:31 → M ED INP 07:32 → ENRESERV 15:09 → M ICU 18:30
PROVIDERS: ADMIT Internal Medicine; ATTEND Internal Medicine
DX: K20.8 Other esophagitis (principal); K22.6 Gastro-esophageal laceration-hemorrhage syndrome; K92.2 Gastrointestinal hemorrhage, unspecified; T40.7X1A Poisoning by cannabis (derivatives), accidental (unintentional), initial encounter; X58.XXXA Exposure to other specified factors, initial encounter; Y92.89 Other specified places as the place of occurrence of the external cause; R55 Syncope and collapse; R56.9 Unspecified convulsions; I47.1 Supraventricular tachycardia; E87.6 Hypokalemia; Z91.011 Allergy to milk products
CPT/HCPCS: 36415; 36430; 43255; 70450; 71046; 71275; 74175; 80048; 80076; 80307; 82330; 82947; 83690; 83735; 83880; 84132; 84295; 84703; 85014; 85025; 85027; 85610; 85730; 86850; 86900; 86901; 86920; 93005; 93041; 96361; 96365; 96366; 96367; 96375; 96376; 99285; C9113; J0330; J1100; J2250; J2370; J2405; J2765; J3010; J3475; P9016; Q9967

== ENCOUNTER 2020-03-06 08:36 | Observation (INO) | payer OTHER ==
[~2020-03-06] VITALS: Ht 157.5 cm; Wt 63.3 kg
[~2020-03-06 08:36] MED LIST changes: +ONDA-83 PO; +PANT40TA29 PO
[2020-03-06 09:17] LABS: BASO % 0.3 % (0.0-1.0); HEMOGLOBIN 12.4 g/dl (12.0-15.5); LYMPH # 1.5 10^3/uL (1.5-5.0); LYMPH % 14.4 % (24.0-44.0); MEAN CORPUSCULAR HEMOGLOBIN 25.5 pg (27.0-33.0); MEAN CORPUSCULAR VOLUME 82.1 fl (80.0-96.0); MONO # 0.5 10^3/uL (0.0-0.8); MONO % 4.7 % (0.0-5.0); NEUTROPHILS # 8.3 10^3/uL (1.5-8.5); NEUTROPHILS % 80.3 % (36.0-66.0); PLATELET COUNT, AUTOMATED 438 10^3/uL (150-450); RED BLOOD COUNT 4.87 10^6/uL (4.00-5.40); WHITE BLOOD COUNT 10.3 10^3/uL (4.0-10.0)
[2020-03-06 09:42] LABS: ALBUMIN 4.3 GM/DL (3.2-5.2); ALT/SGPT 20 U/L (12-78); BILIRUBIN,DIRECT 0.2 MG/DL (0.0-0.2); BILIRUBIN,TOTAL 0.7 MG/DL (0.2-1.0); BLOOD UREA NITROGEN 15 MG/DL (7-18); CALCIUM LEVEL 10.4 MG/DL (8.5-10.1); CARBON DIOXIDE LEVEL 24 MEQ/L (21-32); CHLORIDE LEVEL 104 MEQ/L (98-107); CREATININE FOR GFR 0.87 MG/DL (0.55-1.30); GLOMERULAR FILTRATION RATE > 60.0 (>60); GLUCOSE, FASTING 113 MG/DL (70-100); LIPASE 54 U/L (73-393); POTASSIUM SERUM 3.7 MEQ/L (3.5-5.1); SODIUM LEVEL 140 MEQ/L (136-145); TOTAL PROTEIN 8.1 GM/DL (6.4-8.2)
[2020-03-06 09:48] LABS: HCG, SERUM QUALITATIVE NEGATIVE (NEGATIVE)
[2020-03-06] MEDS ORDERED: ISOVUE-370 76% 100ML VIAL As Ordered ONE (10:23)
[2020-03-06] MEDS ORDERED: ONDANSETRON 4MG/2ML VIAL IV ONE ×2 (10:30→12:00)
[2020-03-06] MEDS ORDERED: NS 1,000 ML IV ONE (10:30)
--- NOTE | 2020-03-06 11:10 | REPVR ---
PROCEDURE INFORMATION: Exam: CT Abdomen And Pelvis With Contrast Exam date and time: 03/06/2020 10:48 AM Age: 24 years old Clinical indication: Abdominal pain; Additional info: Abdominal pain, vomiting TECHNIQUE: Imaging protocol: Computed tomography of the abdomen and pelvis with intravenous contrast. Radiation optimization: All CT scans at this facility use at least one of these dose optimization techniques: automated exposure control; mA and/or kV adjustment per patient size (includes targeted exams where dose is matched to clinical indication); or iterative reconstruction. Contrast material: ISOVUE 370; Contrast volume: 100 ml; Contrast route: INTRAVENOUS (IV); COMPARISON: CT ABD/PEL W/IV CONTRAST ONLY 10/22/2019 10:00 AM FINDINGS: Liver: Normal. No mass. Gallbladder and bile ducts: Normal. No calcified stones. No ductal dilation. Pancreas: Normal. No ductal dilation. Spleen: Normal. No splenomegaly. Adrenals: Normal. No mass. Kidneys and ureters: 6.2 mm benign left renal cyst. No specific followup required/recommended. Stomach and bowel: Unremarkable. No obstruction. No mucosal thickening. Appendix: The vermiform appendix is not identified on this examination. There is, however, no pericecal abnormality to suggest appendicitis. Intraperitoneal space: Unremarkable. No free air. No significant fluid collection. Vasculature: Calcified phleboliths are present in the lower pelvis bilaterally. Lymph nodes: No enlarged lymph nodes. Urinary bladder: The urinary bladder is partially decompressed and somewhat difficult to assess. Reproductive: Unremarkable as visualized. Bones/joints: Unremarkable. No acute fracture. Soft tissues: Unremarkable. IMPRESSION: No acute abdominal or pelvic abnormality identified. COMMENTS: Consistent with the [employer]'s Incidental Findings Committee white paper (J Am Ana Radiol 2018): Any incidental renal lesion less than 1.0 cm or classified as too small to characterize, or any incidental cystic renal lesion characterized as simple-appearing, is likely benign. No follow-up imaging is recommended for these lesions per consensus recommendations based on imaging criteria. Electronically signed by: Imtiaz Aguero On 03/06/2020 11:10:32 AM
[2020-03-06] MEDS ORDERED: MOM 30ML SUSPENSION UDC PO PRN (12:00)
[2020-03-06] MEDS ORDERED: ACETAMINOPHEN TAB 650MG DOSE (2X325MG) PO PRN (12:00)
[2020-03-06] MEDS ORDERED: MAALOX 30 ML SUSP *UDC PO PRN (12:00)
[2020-03-06] MEDS ORDERED: ONDANSETRON 4MG/2ML VIAL IV PRN (12:00)
--- NOTE | 2020-03-06 12:27 | HPEPDOC ---
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 Tells me that starting on Thu day she had started to feel nauseous and was throwing up this worsened yesterday on Thursday and she was throwing up to 10 times daily with no blood. Today she was just feeling tired from all the nausea and vomiting and decided to come to the emergency department. She says this feels just like the previous episodes triggered by cannabis use. This episode was also triggered by cannabis use in conjunction with drinking alcohol this weekend. States her appetite has been decreased with all the nausea and vomiting and she can't keep any food down. She says she has a similar episode in January except that time she was also throwing up blood. She denies any blood in her vomit this time. 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 admitted for observation for an episode of cannabis hyperemesis. PAST MEDICAL HISTORY: Hellen-Pagan tear 01/2020 PAST SURGICAL HISTORY: Denies any SOCIAL HISTORY: Endorses alcohol use every 1-2 weeks with friends Denies tobacco use Denies illicit drug use other than daily cannabis use FAMILY HISTORY: Noncontributory ALLERGIES: Please see below. REVIEW OF SYSTEMS: Constitutional: No sweating or weight loss Eyes: No eye pain or acute blurred vision HENT: No complaints of headache or sore throat Cadiovascular: No Chest pain or palpitations Pulm: No SOB or cough Gastrointestinal: Per HPI Genitourinary: No dysuria or hematuria Musculoskeletal: No back pain or joint pain Skin: No rash or jaundice HOME MEDICATIONS: Please see below. PHYSICAL EXAMINATION: Constitutional: Awake and alert, in mild apparent distress ENT: Sclera are clear. Mucosa is moist. Respiratory: Lungs CTA bilaterally. No respiratory distress. No use of acces tamiko muscles. Cardiovascular: RRR S1 and S2 are normal, no murmur Gastrointestinal: Abdomen is soft, non distended, non tender, BS present. Musculoskeletal: No edema. No joint deformities. RUE 5/5, LUE 5/5, BLE 5/5 Neurologic: No focal neurological deficit. Mental Status: A&O x3, normal affect Skin: Warm, dry LABORATORY DATA: See below. IMAGING: MICROBIOLOGY: Please see below. ASSESSMENT/PLAN 24-year-old female with past medical history of Hellen-Pagan tears and recurrent cannabis hyperemesis syndrome episodes admitted for observation for an episode of cannabis hyperemesis. # Cannabis hyperemesis syndrome: Discussed at length with patient need to quit cannabis use. QTC 450 IV protoZofran when necessary and Reglan IV. Regular diet when tolerating by mouth. IV PPI. IVFs. # History of Hellen-Pagan tear: Monitor HH and any hematemesis. No bleeding this episode hemoglobin ok A Yousef Hospitalist Vital Signs Vital Signs Date Time Temp Pulse Resp B/P (MAP) Pulse Ox O2 Delivery O2 Flow Rate FiO2 03/06/20 10:06 03/06/20 08:36 97.2 91 18 99 Room Air Laboratory Data Labs 24H Laboratory Tests 2 03/06/20 08:50: Urine Color YELLOW, Urine Appearance CLOUDYH, Urine pH 5.0, Urine Specific [place] 1.033, Urine Protein 2+H, Urine Glucose (UA) 1+H, Urine Ketones 2+H, Urine Blood NEGATIVE, Urine Nitrite NEGATIVE, Urine Bilirubin NEGATIVE, Urine Urobilinogen 2.0H, Urine Leukocyte Esterase NEGATIVE, Urine WBC (Auto) 4H, Urine RBC (Auto) 1, Urine Hyaline Casts (Auto) 0, Urine Bacteria (Auto) NEGATIVE, Urine Squamous Epithelial Cells 11, Urine Mucus (Auto) LARGE, Urine Sperm (Auto) , Anion Gap 12, Glomerular Filtration Rate > 60.0, Calcium Level 10.4H, Total Bilirubin 0.7, Direct Bilirubin 0.2, Aspartate Amino Transf (AST/SGOT) 15, Alanine Aminotransferase (ALT/SGPT) 20, Alkaline Phosphatase 76, Total Protein 8.1, Albumin 4.3, Albumin/Globulin Ratio 1.1L, Lipase 54L, Human Chorionic Gonadotropin, Qual NEGATIVE 03/06/20 08:56: Immature Granulocyte % (Auto) 0.3, Neutrophils (%) (Auto) 80.3H, Lymphocytes (%) (Auto) 14.4L, Monocytes (%) (Auto) 4.7, Eosinophils (%) (Auto) 0.0, Basophils (%) (Auto) 0.3, Neutrophils # (Auto) 8.3, Lymphocytes # (Auto) 1.5, Monocytes # (Auto) 0.5, Eosinophils # (Auto) 0.0, Basophils # (Auto) 0.0, Nucleated Red Blood Cells % (auto) 0.0 CBC/BMP Laboratory Tests 03/06/20 08:50 03/06/20 08:56 Home Medications No Active Prescriptions or Reported Meds Allergies Coded Allergies: lactose (Verified Allergy, Unknown, 05/08/19) A-FIB/CHADSVASC A-FIB History Current/History of A-Fib/PAF?: No CISCO LAMBERT MD Mar 06, 2020 12:27
[2020-03-06] MEDS: PANTOPRAZOLE 40MG VIAL (C9113 PER 1) IV SCH (14:18)
[2020-03-06] MEDS: METOCLOPRAMIDE INJ 10MG/2ML VIAL (J2765 PER 1) IV SCH ×2 (14:18→19:35)
[2020-03-06] MEDS: D5W/0.9% SODIUM CHLORIDE 1,000 ML IV SCH ×2 (14:19→21:39)
[2020-03-06 18:00] VITALS: BP 120/69
[2020-03-06] MEDS: HEPARIN SOD (PORCINE) 5000UNITS/ML 1ML VIAL/SYRINGE SC SCH (21:39)
[2020-03-06 22:00] VITALS: BP 123/66
[2020-03-07] MEDS: METOCLOPRAMIDE INJ 10MG/2ML VIAL (J2765 PER 1) IV SCH ×2 (02:24→08:31)
--- NOTE | 2020-03-07 05:40 | ECGEPIP ---
[facility] - ED Test Date: 2020-03-06 Pat Name: NATALIYA BEASLEY Department: Room: [place] [address] Gender: Female Head Orthopedic Team Physician: crow : 1995 Requested By: Asim Castillo Order Number: [id number] Reading MD: Mike Rodriguez Measurements Intervals [place] Rate: 61 P: 34 ND: 92 QRS: 56 QRSD: 93 T: 36 QT: 450 QTc: 456 Interpretive Statements SINUS RHYTHM WITH SHORT ND INTERVAL SIMILAR TO 01/17/20 Electronically Signed on 03-07-2020 5:39:39 EDT by Mike Rodriguez
[2020-03-07 06:00] VITALS: BP 97/69
[2020-03-07 06:29] LABS: MAGNESIUM LEVEL 1.7 MG/DL (1.8-2.4)
[2020-03-07] MEDS ORDERED: MAG SULF 1GM/100ML (MAG RUN) 1 GM in IV 1 EA IV ONE (08:00)
[2020-03-07 08:14] LABS: BLOOD UREA NITROGEN 8 MG/DL (7-18); CALCIUM LEVEL 8.4 MG/DL (8.5-10.1); CARBON DIOXIDE LEVEL 26 MEQ/L (21-32); CHLORIDE LEVEL 111 MEQ/L (98-107); CREATININE FOR GFR 0.56 MG/DL (0.55-1.30); GLOMERULAR FILTRATION RATE > 60.0 (>60); GLUCOSE, FASTING 93 MG/DL (70-100); POTASSIUM SERUM 3.1 MEQ/L (3.5-5.1); SODIUM LEVEL 144 MEQ/L (136-145)
[2020-03-07] MEDS: HEPARIN SOD (PORCINE) 5000UNITS/ML 1ML VIAL/SYRINGE SC SCH (08:31)
[2020-03-07] MEDS: PANTOPRAZOLE 40MG VIAL (C9113 PER 1) IV SCH (08:31)
[2020-03-07] MEDS ORDERED: ZOFR4TAB16 PO (10:33)
--- NOTE | 2020-03-07 10:38 | IPNPDOC ---
Text Note Date of Service The patient was seen on 03/07/20. NOTE Subjective: Patient was seen and examined this morning at bedside. Patient tells me her nausea and vomiting has almost completely resolved now and she is able to tolerate her diet well. No overnight events. She feels well enough to go home now. Denies throwing up any blood since she's been admitted. Objective: Constitutional: Awake and alert, in no apparent distress ENT: Sclera are clear. Mucosa is moist. Respiratory: Lungs CTA bilaterally. No respiratory distress. No use of accessory muscles. Cardiovascular: RRR S1 and S2 are normal, no murmur Gastrointestinal: Abdomen is soft, non distended, non tender, BS present. Musculoskeletal: No edema. No joint deformities. RUE 5/5, LUE 5/5, BLE 5/5 Neurologic: No focal neurological deficit. Mental Status: A&O x3, normal affect Skin: Warm, dry 24-year-old female with past medical history of Hellen-Pagan tears and recurrent cannabis hyperemesis syndrome episodes admitted for observation for an episode of cannabis hyperemesis. # Cannabis hyperemesis syndrome: Discussed at length with patient need to quit cannabis use. QTC 450 IV Zofran when necessary and Reglan IV. Regular diet when tolerating by mouth. IV PPI. IVFs. Zofran by mouth when necessary upon discharge. # History of Hellen-Pagan tear:denies any hematemesis. No bleeding this episode hemoglobin ok # Hypokalemia: replace po liquid K A Lisa Hospitalist VS,Doc, I+O VS, Doc, I+O Laboratory Tests 03/07/20 05:42 Vital Signs Date Time Temp Pulse Resp B/P (MAP) Pulse Ox O2 Delivery O2 Flow Rate FiO2 03/07/20 06:00 97.8 63 18 97/69 (78) 98 Room Air I&O- Last 24 Hours up to 6 AM 03/07/20 06:00 Intake Total 500 ml Output Total 0 ml Balance 500 ml CISCO LAMBERT MD Mar 07, 2020 10:38
[2020-03-07] MEDS ORDERED: PROT20TA11 PO (10:39)
[2020-03-07] MEDS ORDERED: POTASSIUM CHLORIDE 10% LIQ 20 MEQ/15 ML UDC PO ONE (10:45)
== END 2020-03-07 12:47 | disposition home or self-care (01) ==
LOC: M ED 08:36 → M ED INP 11:55 → ENRESERV 16:58 → M MS5PR 17:45
PROVIDERS: ADMIT Family Medicine; ATTEND Family Medicine
DX: F12.288 Cannabis dependence with other cannabis-induced disorder (principal); T40.7X5A Adverse effect of cannabis (derivatives), initial encounter; E87.6 Hypokalemia; E73.9 Lactose intolerance, unspecified
CPT/HCPCS: 36415; 74177; 80048; 80076; 81001; 83690; 83735; 84703; 85025; 93005; 96361; 96372; 96374; 96375; 96376; 97161; 99285; C9113; J1644; J2405; J2765; J3475; Q9967

== ENCOUNTER 2020-04-02 23:01 | Emergency (ER) | payer OTHER ==
[~2020-04-02] VITALS: Ht 157.5 cm; Wt 60.8 kg
[~2020-04-02 23:01] MED LIST changes: +PROT20TA11 PO
[2020-04-03] MEDS ORDERED: HALOPERIDOL 5MG/ML VIAL (J1630 PER 1) IV ONE (00:15)
[2020-04-03] MEDS ORDERED: KETOROLAC 30 MG/ML 1ML VIAL IV ONE (00:15)
[2020-04-03 00:18] LABS: BASO % 0.2 % (0.0-1.0); HEMATOCRIT 39.3 % (36.0-47.0); LYMPH # 0.8 10^3/uL (1.5-5.0); MEAN CORPUSCULAR HEMOGLOBIN 23.8 pg (27.0-33.0); MEAN CORPUSCULAR HGB CONC 30.5 g/dl (32.0-36.5); MONO # 0.3 10^3/uL (0.0-0.8); MONO % 3.1 % (0.0-5.0); NEUTROPHILS # 8.4 10^3/uL (1.5-8.5); NEUTROPHILS % 88.3 % (36.0-66.0); PLATELET COUNT, AUTOMATED 330 10^3/uL (150-450); RED BLOOD COUNT 5.04 10^6/uL (4.00-5.40); WHITE BLOOD COUNT 9.6 10^3/uL (4.0-10.0)
[2020-04-03 00:34] LABS: ALBUMIN 4.4 GM/DL (3.2-5.2); BILIRUBIN,DIRECT 0.3 MG/DL (0.0-0.2); BILIRUBIN,TOTAL 0.9 MG/DL (0.2-1.0); TOTAL PROTEIN 8.2 GM/DL (6.4-8.2)
[2020-04-03] MEDS ORDERED: ISOVUE-370 76% 100ML VIAL As Ordered ONE (01:31)
[2020-04-03] MEDS ORDERED: NS 1,000 ML IV ONE (02:15)
--- NOTE | 2020-04-03 02:15 | REPVR ---
PROCEDURE INFORMATION: Exam: CT Abdomen and Pelvis with Contrast Exam date and time: 04/03/20 (1:34am) Age: 24 years old Clinical indication: Generalized abd pain, nausea and vomiting TECHNIQUE: Imaging protocol: Computed tomography of the abdomen and pelvis with intravenous contrast. Radiation optimization: All CT scans at this facility use at least one of these dose optimization techniques: automated exposure control; mA and/or kV adjustment per patient size (includes targeted exams where dose is matched to clinical indication); or iterative reconstruction. Contrast material: Isovue 370 Contrast volume: 100 ml Contrast route: IV COMPARISON: CT ABDOMEN PELVIS of 03/06/20 FINDINGS: Liver: Normal. No solid mass. Gallbladder and bile ducts: Normal. No calcified stones. No ductal dilatation. Pancreas: Normal. No ductal dilatation. Spleen: Prominent spleen (unchanged). Adrenal glands: Normal. No mass. Kidneys and ureters: Normal. No hydronephrosis. 2 small left renal cysts (each 5-6 mm size). Stomach and bowel: Unremarkable. No bowel obstruction. No mucosal thickening. Appendix: No evidence of appendicitis. Intraperitoneal space: Unremarkable. No free air. No significant fluid collection. Vasculature: Unremarkable. No abdominal aortic aneurysm. Lymph nodes: Unremarkable. No enlarged lymph nodes. Urinary bladder: Unremarkable as visualized. Reproductive: Unremarkable as visualized. Bones/joints: Unremarkable. No acute fracture. Soft tissues: Unremarkable. IMPRESSION: No acute findings. Prominent spleen (unchanged appearance). Electronically signed by: Crys Osborn On 04/03/2020 02:14:54 AM
[2020-04-03 02:45] VITALS: BP 107/59
[2020-04-03] MEDS ORDERED: ZOFR4TAB16 PO (02:47)
== END 2020-04-03 02:55 | disposition home or self-care (01) ==
LOC: M ED 23:01
DX: R11.15 Cyclical vomiting syndrome unrelated to migraine (principal); Z79.899 Other long term (current) drug therapy
CPT/HCPCS: 74177; 80047; 80076; 83690; 84702; 85025; 93041; 96361; 96374; 96375; 99284; J1630; J1885; Q9967

== ENCOUNTER 2020-05-13 05:32 | Emergency (ER) | payer OTHER ==
[~2020-05-13] VITALS: Ht 160 cm; Wt 59.1 kg
[2020-05-13] MEDS ORDERED: NS 1,000 ML IV ONE (06:30)
[2020-05-13] MEDS ORDERED: HALOPERIDOL 5MG/ML VIAL (J1630 PER 1) IV ONE (06:30)
[2020-05-13 07:20] LABS: BASO % 0.2 % (0.0-1.0); HEMATOCRIT 41.7 % (36.0-47.0); LYMPH # 1.3 10^3/uL (1.5-5.0); LYMPH % 11.1 % (24.0-44.0); MEAN CORPUSCULAR HEMOGLOBIN 23.6 pg (27.0-33.0); MEAN CORPUSCULAR HGB CONC 31.2 g/dl (32.0-36.5); MEAN CORPUSCULAR VOLUME 75.5 fl (80.0-96.0); MONO # 0.7 10^3/uL (0.0-0.8); MONO % 5.7 % (0.0-5.0); NEUTROPHILS % 82.8 % (36.0-66.0); PLATELET COUNT, AUTOMATED 322 10^3/uL (150-450); RED BLOOD COUNT 5.52 10^6/uL (4.00-5.40)
[2020-05-13 07:41] LABS: ALBUMIN 4.7 GM/DL (3.2-5.2); ALT/SGPT 36 U/L (12-78); BILIRUBIN,DIRECT 0.3 MG/DL (0.0-0.2); BILIRUBIN,TOTAL 1.1 MG/DL (0.2-1.0); BLOOD UREA NITROGEN 16 MG/DL (7-18); CALCIUM LEVEL 10.4 MG/DL (8.5-10.1); CARBON DIOXIDE LEVEL 23 MEQ/L (21-32); CHLORIDE LEVEL 105 MEQ/L (98-107); CREATININE FOR GFR 0.86 MG/DL (0.55-1.30); GLOMERULAR FILTRATION RATE > 60.0 (>60); GLUCOSE, FASTING 94 MG/DL (70-100); POTASSIUM SERUM 3.4 MEQ/L (3.5-5.1); SODIUM LEVEL 142 MEQ/L (136-145); TOTAL PROTEIN 8.5 GM/DL (6.4-8.2)
[2020-05-13] MEDS ORDERED: ZOFR4TAB16 PO (07:53)
[2020-05-13] MEDS ORDERED: CAPSAICIN 0.025% CR 60 GM TOP ONE (08:00)
[2020-05-13] MEDS ORDERED: CAPS42.54 TOP (08:02)
[2020-05-13 08:08] VITALS: BP 137/89
--- NOTE | 2020-05-13 08:28 | ECGEPIP ---
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
== END 2020-05-13 08:13 | disposition home or self-care (01) ==
LOC: M ED 05:32
DX: F12.188 Cannabis abuse with other cannabis-induced disorder (principal); K59.00 Constipation, unspecified; K22.6 Gastro-esophageal laceration-hemorrhage syndrome
CPT/HCPCS: 80048; 80076; 84702; 85025; 93005; 96361; 96374; 99284; J1630

== ENCOUNTER 2020-06-15 18:03 | Inpatient (IN) | payer OTHER ==
[~2020-06-15] VITALS: Ht 157.5 cm; Wt 65.6 kg
[~2020-06-15 18:03] MED LIST changes: +CAPS42.54 TOP
[2020-06-15 18:45] LABS: BASO % 0.1 % (0.0-1.0); HEMATOCRIT 49.5 % (36.0-47.0); LYMPH % 9.1 % (24.0-44.0); MEAN CORPUSCULAR HEMOGLOBIN 24.7 pg (27.0-33.0); MEAN CORPUSCULAR HGB CONC 32.3 g/dl (32.0-36.5); MEAN CORPUSCULAR VOLUME 76.5 fl (80.0-96.0); MONO # 1.3 10^3/uL (0.0-0.8); NEUTROPHILS # 18.3 10^3/uL (1.5-8.5); NEUTROPHILS % 84.1 % (36.0-66.0); PLATELET COUNT, AUTOMATED 366 10^3/uL (150-450); RED BLOOD COUNT 6.47 10^6/uL (4.00-5.40); WHITE BLOOD COUNT 21.8 10^3/uL (4.0-10.0)
--- OUTSIDE RECORDS SUMMARY | 2020-06-15 18:47 | CCD ---
Author Author [facility] Organization [facility] Address Unknown Phone Unavailable Care Team Providers Care Youth Development Professional Name Role Phone TURRIN, LEENA Unavailable Unavailable TURRIN, LEENA Unavailable Unavailable TURRIN, LEENA Unavailable Unavailable TURRIN, LEENA Unavailable Unavailable ParvinJuan A PA-C Unavailable Unavailable ParvinJuan A PA-C Unavailable Unavailable ParvinuJan A PA-C Unavailable Unavailable ParvinJuan A PA-C Unavailable Unavailable ParvinJuan A PA-C Unavailable Unavailable ParvinJuan A PA-C Unavailable Unavailable ParvinJuan A PA-C Unavailable Unavailable ParvinJuan A PA-C Unavailable Unavailable ParvinJuan A PA-C Unavailable Unavailable Parvin, Juan A Soria PA-C Unavailable Unavailable ParvinJuan A Yang PA-C Unavailable Unavailable Anton Falanga, A Sarah SWATCH CLERK Unavailable Unavailable Anton Falanga, A Sarah SWATCH CLERK Unavailable Unavailable Aurora Falanga, A Sarah SWATCH CLERK Unavailable Unavailable Anton Falanga, A Sarah SWATCH CLERK Unavailable Unavailable Aurora Falanga, A Sarah SWATCH CLERK Unavailable Unavailable Anton Falanga, A Sarah SWATCH CLERK Unavailable Unavailable Anton Falanga, A Sarah SWATCH CLERK Unavailable Unavailable Anton Falanga, A Sarah SWATCH CLERK Unavailable Unavailable Anton Falanga, A Sarah SWATCH CLERK Unavailable Unavailable Anton Falanga, A Sarah SWATCH CLERK Unavailable Unavailable Anton Falanga, A Sarah SWATCH CLERK Unavailable Unavailable Aurora Falanga, A Sarah SWATCH CLERK Unavailable Unavailable Aurora Falanga, A Sarah SWATCH CLERK Unavailable Unavailable Aurora Falanga, A Sarah SWATCH CLERK Unavailable Unavailable Aurora Falanga, A Sarah SWATCH CLERK Unavailable Unavailable Anton Falanga, A Sarah SWATCH CLERK Unavailable Unavailable Aurora Falanga, A Sarah SWATCH CLERK Unavailable Unavailable Anton Falanga, A Sarah SWATCH CLERK Unavailable Unavailable Anton Falanga, A Sarah SWATCH CLERK Unavailable Unavailable Anton Falanga, A Sarah SWATCH CLERK Unavailable Unavailable Aurora Falanga, A Sarah SWATCH CLERK Unavailable Unavailable Anton Falanga, A Sarah SWATCH CLERK Unavailable Unavailable Aurora Falanga, A Sarah SWATCH CLERK Unavailable Unavailable Anton Falanga, A Sarah SWATCH CLERK Unavailable Unavailable Anton Falanga, A Sarah SWATCH CLERK Unavailable Unavailable Aurora Falanga, A Sarah SWATCH CLERK Unavailable Unavailable Anton Falanga, A Sarah SWATCH CLERK Unavailable Unavailable Aurora Falanga, A Sarah SWATCH CLERK Unavailable Unavailable Aurora Falanga, A Sarah SWATCH CLERK Unavailable Unavailable Anton Falanga, A Sarah SWATCH CLERK Unavailable Unavailable ARIEL MILLER MD Unavailable Unavailable ARIEL MILLER MD Unavailable Unavailable ARIEL MILLER MD Unavailable Unavailable ARIEL MILLER MD Unavailable Unavailable ARIEL MILLER MD Unavailable Unavailable ARIEL MILLER MD Unavailable Unavailable ARIEL MILLER MD Unavailable Unavailable ARIEL MILLER MD Unavailable Unavailable ARIEL MILLER MD Unavailable Unavailable ARIEL MILLER MD Unavailable Unavailable ARIEL MILLER MD Unavailable Unavailable ARIEL MILLER MD Unavailable Unavailable Donna Collazo MD Unavailable Unavailable Donna Collazo MD Unavailable Unavailable Donna Collazo MD Unavailable Unavailable Donna Collazo MD Unavailable Unavailable Donna Collazo MD Unavailable Unavailable Donna Collazo MD Unavailable Unavailable Donna Collazo MD Unavailable Unavailable Donna Collazo MD Unavailable Unavailable Donna Collazo MD Unavailable Unavailable Donna Collazo MD Unavailable Unavailable Donna Collazo MD Unavailable Unavailable Donna Collazo MD Unavailable Unavailable Donna Collazo MD Unavailable Unavailable Donna Collazo MD Unavailable Unavailable Donna Collazo MD Unavailable Unavailable Donna Collazo MD Unavailable Unavailable Donna Collazo MD Unavailable Unavailable Donna Collazo MD Unavailable Unavailable Donna Collazo MD Unavailable Unavailable Donna Collazo MD Unavailable Unavailable Donna Collazo MD Unavailable Unavailable Donna Collazo MD Unavailable Unavailable Donna Collazo MD Unavailable Unavailable Donna Collazo MD Unavailable Unavailable Donna Collazo MD Unavailable Unavailable Donna Collazo MD Unavailable Unavailable Donna Collazo MD Unavailable Unavailable Donna Collazo MD Unavailable Unavailable Donna Collazo MD Unavailable Unavailable Donna Collazo MD Unavailable Unavailable Donna Collazo MD Unavailable Unavailable Donna Collazo MD Unavailable Unavailable Donna Collazo MD Unavailable Unavailable Donna Collazo MD Unavailable Unavailable Donna Collazo MD Unavailable Unavailable Donna Collazo MD Unavailable Unavailable Donna Collazo MD Unavailable Unavailable Donna Collazo MD Unavailable Unavailable Donna Collazo MD Unavailable Unavailable Donna Collazo MD Unavailable Unavailable Donna Collazo MD Unavailable Unavailable Donna Collazo MD Unavailable Unavailable Donna Collazo MD Unavailable Unavailable Donna Collazo MD Unavailable Unavailable Donna Collazo MD Unavailable Unavailable Donna Collazo MD Unavailable Unavailable Donna Collazo MD Unavailable Unavailable Donna Collazo MD Unavailable Unavailable Donna Collazo MD Unavailable Unavailable Donna Collazo MD Unavailable Unavailable Donna Collazo MD Unavailable Unavailable Donna Collazo MD Unavailable Unavailable Donna Collazo MD Unavailable Unavailable Donna Collazo MD Unavailable Unavailable Donna Collazo MD Unavailable Unavailable Donna Collazo MD Unavailable Unavailable Donna Collazo MD Unavailable Unavailable Donna Collazo MD Unavailable Unavailable Donna Collazo MD Unavailable Unavailable Donna Collazo MD Unavailable Unavailable Donna Collazo MD Unavailable Unavailable Donna Collazo MD Unavailable Unavailable Donna Collazo MD Unavailable Unavailable Donna Collazo MD Unavailable Unavailable Donna Collazo MD Unavailable Unavailable Donna Collazo MD Unavailable Unavailable Donna Collaoz MD Unavailable Unavailable Donna Collazo MD Unavailable Unavailable Donna Collazo MD Unavailable Unavailable Donna Collazo MD Unavailable Unavailable Donna Collazo MD Unavailable Unavailable Donna Collazo MD Unavailable Unavailable Donna Collazo MD Unavailable Unavailable Donna Collazo MD Unavailable Unavailable Donna Collazo MD Unavailable Unavailable Donna Collazo MD Unavailable Unavailable Donna Collazo MD Unavailable Unavailable Donna Collazo MD Unavailable Unavailable Donna Collazo MD Unavailable Unavailable Donna Collazo MD Unavailable Unavailable Donna Collazo MD Unavailable Unavailable Donna Collazo MD Unavailable Unavailable Donna Collazo MD Unavailable Unavailable Donna Collazo MD Unavailable Unavailable Donna Collazo MD Unavailable Unavailable Donna Collazo MD Unavailable Unavailable Donna Collazo MD Unavailable Unavailable CollazoDonna MD Unavailable Unavailable CollazoDonna MD Unavailable Unavailable MULLERSIMIN MD Unavailable Unavailable MULLERSIMIN MD Unavailable Unavailable MULLERSIMIN MD Unavailable Unavailable MULLERSIMIN MD Unavailable Unavailable MULLERSIMIN MD Unavailable Unavailable MULLERSIMIN MD Unavailable Unavailable MULLERSIMIN MD Unavailable Unavailable MULLERSIMIN VALDEZ MD Unavailable Unavailable MULLERSIMIN VALDEZ MD Unavailable Unavailable MULLERSIMIN MD Unavailable Unavailable MULLERSIMIN MD Unavailable Unavailable MULLERSIMIN MD Unavailable Unavailable MULLERSIMIN VALDEZ MD Unavailable Unavailable MULLERSIMIN VALDEZ MD Unavailable Unavailable MULLERSIMIN VALDEZ MD Unavailable Unavailable MULLERSIMIN VALDEZ MD Unavailable Unavailable MULLERSIMIN MD Unavailable Unavailable MULLERSIMIN MD Unavailable Unavailable MULLERSIMIN MD Unavailable Unavailable MULLERSIMIN MD Unavailable Unavailable MULLERSIMIN VALDEZ MD Unavailable Unavailable MULLERSIMIN VALDEZ MD Unavailable Unavailable MULLERSIMIN VALDEZ MD Unavailable Unavailable MULLERSIMIN VALDEZ MD Unavailable Unavailable MULLERSIMIN VALDEZ MD Unavailable Unavailable MULLERSIMIN VALDEZ MD Unavailable Unavailable MULLERSIMIN MD Unavailable Unavailable MULLERSIMIN MD Unavailable Unavailable MULLERSIMIN VALDEZ MD Unavailable Unavailable MULLERSIMIN VALDEZ MD Unavailable Unavailable MULLERSIMIN VALDEZ MD Unavailable Unavailable MULLERSIMIN VALDEZ MD Unavailable Unavailable MULLER SIMIN MD Unavailable Unavailable MULLERSIMIN MD Unavailable Unavailable MULLERSIMIN MD Unavailable Unavailable MULLERSIMIN MD Unavailable Unavailable MULLERSIMIN MD Unavailable Unavailable MULLER SIMIN MD Unavailable Unavailable MULLERSIMIN MD Unavailable Unavailable MULLERSIMIN VALDEZ MD Unavailable Unavailable MULLERSIMIN MD Unavailable Unavailable MULLER SIMIN MD Unavailable Unavailable MULLERSIMIN MD Unavailable Unavailable MULLER SIMIN MD Unavailable Unavailable MULLERSIMIN MD Unavailable Unavailable MULLERSIMIN MD Unavailable Unavailable MULLER SIMIN MD Unavailable Unavailable MULLERSIMIN MD Unavailable Unavailable MULLER SIMIN MD Unavailable Unavailable MULLER SIMIN MD Unavailable Unavailable MULLER SIMIN MD Unavailable Unavailable MULLER, SIMIN MD Unavailable Unavailable SIMIN MULLER MD Unavailable Unavailable SIMIN MULLER MD Unavailable Unavailable SIMIN MULLER MD Unavailable Unavailable SIMIN MULLER MD Unavailable Unavailable SIMIN MULLER MD Unavailable Unavailable SIMIN MULLER MD Unavailable Unavailable SIMIN MULLER MD Unavailable Unavailable SIMIN MULLER MD Unavailable Unavailable SIMIN MULLER MD Unavailable Unavailable SIMIN MULLER MD Unavailable Unavailable SIMIN MULLER MD Unavailable Unavailable SIMIN MULLER MD Unavailable Unavailable SIMIN MULLER MD Unavailable Unavailable SIMIN MULLER MD Unavailable Unavailable SIMIN MULLER MD Unavailable Unavailable SIMIN MULLER MD Unavailable Unavailable SIMIN MULLER MD Unavailable Unavailable YAQUELINGeorge HUTCHISON MD Unavailable Unavailable YAQUELINGeorge HUTCHISON MD Unavailable Unavailable YAQUELINGeorge HUTCHISON MD Unavailable Unavailable YAQUELINGeorge HUTCHISON MD Unavailable Unavailable YAQUELINGeorge HUTCHISON MD Unavailable Unavailable YAQUELINGeorge HUTCHISON MD Unavailable Unavailable YAQUELINGeorge HUTCHISON MD Unavailable Unavailable YAQUELINGeorge HUTCHISON MD Unavailable Unavailable YAQUELINGeorge HUTCHISON MD Unavailable Unavailable YAQUELINGeorge HUTCHISON MD Unavailable Unavailable YAQUELINGeorge HUTCHISON MD Unavailable Unavailable YAQUELINGeorge HUTCHISON MD Unavailable Unavailable YAQUELINGeorge HUTCHISON MD Unavailable Unavailable YAQUELINGeorge HUTCHISON MD Unavailable Unavailable YAQUELINGeorge HUTCHISON MD Unavailable Unavailable YAQUELINGeorge HUTCHISON MD Unavailable Unavailable YAQUELINGeorge HUTCHISNO MD Unavailable Unavailable YAQUELINGeorge HUTCHISON MD Unavailable Unavailable YAQUELINGeorge HUTCHISON MD Unavailable Unavailable YAQUELINGeorge HUTCHISON MD Unavailable Unavailable YAQUELINGeorge HUTCHISON MD Unavailable Unavailable YAQUELINGeorge HUTCHISON MD Unavailable Unavailable YAQUELINGeorge HUTCHISON MD Unavailable Unavailable Flori Dumontandra SWATCH CLERK SWATCH CLERK Unavailable Unavailable Juan A MCKEON MD Unavailable Unavailable Juan A MCKEON MD Unavailable Unavailable Juan A MCKEON MD Unavailable Unavailable Juan A MCKEON MD Unavailable Unavailable Juan A MCKEON MD Unavailable Unavailable Juan A MCKEON MD Unavailable Unavailable Juan A MCKEON MD Unavailable Unavailable Juan A MCKEON MD Unavailable Unavailable Juan A MCKEON MD Unavailable Unavailable Tim, A Ranjana SWATCH CLERK Unavailable Unavailable Tim, A Ranjana SWATCH CLERK Unavailable Unavailable Tim, A Ranjana SWATCH CLERK Unavailable Unavailable Tim, A Ranjana SWATCH CLERK Unavailable Unavailable Tim, A Ranjana SWATCH CLERK Unavailable Unavailable Tim, A Ranjana SWATCH CLERK Unavailable Unavailable Tim, A Ranjana SWATCH CLERK Unavailable Unavailable Tim, A Ranjana SWATCH CLERK Unavailable Unavailable Tim, A Ranjana SWATCH CLERK Unavailable Unavailable Tim, A Ranjana SWATCH CLERK Unavailable Unavailable Tim, A Ranjana SWATCH CLERK Unavailable Unavailable Tim, A Ranjana SWATCH CLERK Unavailable Unavailable Tim, A Ranjana SWATCH CLERK Unavailable Unavailable Tim, A Ranjana SWATCH CLERK Unavailable Unavailable Tim, A Ranjana SWATCH CLERK Unavailable Unavailable Tim, A Ranjana SWATCH CLERK Unavailable Unavailable Tim, A Ranjana SWATCH CLERK Unavailable Unavailable Tim, A Ranjana SWATCH CLERK Unavailable Unavailable Tim, A Ranjana SWATCH CLERK Unavailable Unavailable Tim, A Ranjana SWATCH CLERK Unavailable Unavailable Tim, A Ranjana SWATCH CLERK Unavailable Unavailable Tim, A Ranjana SWATCH CLERK Unavailable Unavailable Tim, A Ranjana SWATCH CLERK Unavailable Unavailable Tim, A Ranjana SWATCH CLERK Unavailable Unavailable Tim, A Ranjana SWATCH CLERK Unavailable Unavailable Tim, A Ranjana SWATCH CLERK Unavailable Unavailable Tim, A Ranjana SWATCH CLERK Unavailable Unavailable Tim, A Ranjana SWATCH CLERK Unavailable Unavailable Re-disclosure Warning The records that you are about to access may contain information from federally-assisted alcohol or drug abuse programs. If such information is present, then the following federally mandated warning applies: This information has been disclosed to you from records protected by federal confidentiality rules (42 CFR part 2). The federal rules prohibit you from making any further disclosure of this information unless further disclosure is expressly permitted by the written consent of the person to whom it pertains or as otherwise permitted by 42 CFR part 2. A general authorization for the release of medical or other information is NOT sufficient for this purpose. The Federal rules restrict any use of the information to criminally investigate or prosecute any alcohol or drug abuse patient.The records that you are about to access may contain highly sensitive health information, the redisclosure of which is protected by Article 27-F of the [facility] Public Health law. If you continue you may have access to information: Regarding HIV / AIDS; Provided by facilities licensed or operated by the [facility] Office of Mental Health; or Provided by the [facility] Office for People With Developmental Disabilities. If such information is present, then the following [facility] mandated warning applies: This information has been disclosed to you from confidential records which are protected by state law. State law prohibits you from making any further disclosure of this information without the specific written consent of the person to whom it pertains, or as otherwise permitted by law. Any unauthorized further disclosure in violation of state law may result in a fine or care home sentence or both. A general authorization for the release of medical or other information is NOT sufficient authorization for further disc losure. Allergies and Adverse Reactions Type Description Substance Reaction Status Data Source(s ) Food allergy LACTOSE LACTOSE [facility] CLASS SULFA (sulfonamide) SULFA (sulfonamide) HIVES [facility] No Known Drug Allergies No Known Drug Allergies [facility] Encounters Encounter Providers Location Date Indications Data Source(s ) Emergency Attender: Yang Melendrez PA-CConsultant: Miles Walls MD 04/03/2020 04:26:00 PM EST - 04/03/2020 09:15:00 PM [facility] Patient discharged. Outpatient Attender: JADEN Dumont [facility] 02/27/2020 12:19:00 P M EDT [facility] Outpatient Attender: Sarah moran FNPAttender: DAYLIN JAMISON MDConsultant: Miles Collazo MD 02/16/2020 04:43:00 PM ED T - 02/17/2020 12:40:00 PM T [facility] Patient discharged. Outpatient Attender: Ranjana Dumont [facility] 01/26/2020 02:5 0:00 PM EDT [facility] Outpatient Attender: JADEN Dumont [facility] 01/26/2020 02:46:01 P M EDT [facility] Outpatient Attender: JADEN [facility] 01/24/2020 05:19:01 P M EDT [facility] Outpatient Attender: Ranjana Dumont [facility] 01/22/2020 03:1 0:01 PM EDT [facility] Outpatient Attender: JADEN [facility] 01/22/2020 03:10:00 P M EDT [facility] Outpatient Attender: Ranjana Dumont [facility] 01/22/2020 03:0 9:02 PM EDT [facility] Outpatient Attender: JADEN [facility] 01/22/2020 03:09:01 P M EDT [facility] Outpatient Attender: JADEN [facility] 01/19/2020 09:13:00 A M EDT [facility] Outpatient Attender: JADEN [facility] 01/19/2020 09:07:00 A M EDT [facility] Outpatient Attender: Sarah moran FNPAttender: LEENA MARTÍNEZConsultant: Miles Collazo MD 12/26/2019 10:59:00 A M EDT - 12/27/2019 04:25:00 PM EDT [facility] Patient discharged. Outpatient Attender: SIMIN MULLER MDAtt akosua: FER MCKEON MDConsultant: Miles Collazo MD 12/09/2019 12:55:00 PM EDT - 12/11/2019 03:40:00 PM EDT [facility] Patient discharged. Emergency Attender: LEENA Poncesultant: Miles Collazo MD 12/07/2019 06:58:00 PM EDT - 12/07/2019 09:23:00 PM EDT [facility] Patient discharged. Outpatient Attender: Sarah moran FNPAttender: ARIEL MILLER MDConsultant: Miles Collazo MD 11/24/2019 05:12:00 PM ED T - 11/26/2019 01:05:00 PM EDT [facility] Patient discharged. Outpatient 11/04/2019 05:40:00 AM EDT [facility] Outpatient Attender: JADEN STAN[facility] 10/15/2019 12:14:17 A M EDT [facility] Outpatient 10/12/2019 05:16:00 AM EDT [facility] Outpatient 09/14/2019 05:58:00 AM EDT [facility] Outpatient Attender: JADEN STANLEY FP 09/09/2019 11:10:00 A M EDT [facility] Outpatient Attender: JADEN STANLEY [facility] 09/07/2019 09:02:00 A M EDT [facility] Outpatient 05/27/2019 06:22:00 AM EST [facility] Outpatient Attender: JADEN PRITCHETT 05/23/2019 09:01:06 P M EST [facility] Outpatient Attender: JADEN PRITCHETT 05/23/2019 12:54:00 P M EST [facility] Medications Medication Brand Name Start Date Product Form Dose Route Admi nistrative Instructions Pharmacy Instructions Status Indications Reaction Description Data Source(s) 4 mg 05/13/2020 12:00:00 AM EST tablet 5 TAKE ONE TABLET BY MOUTH EVERY 6-8 HOURS NEEDED FOR NAUSEA/VOMITING TAKE ONE TABLET BY MOUTH EVERY 6-8 HOURS NEEDED FOR NAUSEA/VOMITING SOLD: 05/13/2020 [facility] 100 mg 04/04/2020 12:00:00 AM EST capsule 14 TAKE ONE CAPSULE BY MOUTH TWICE A DAY TAKE ONE CAPSULE BY MOUTH TWICE A DAY SOLD: 04/04/2020 [facility] 4 mg 04/03/2020 12:00:00 AM EST tablet 5 TAKE ONE TABLET BY MOUTH EVERY 6-8 HOURS NEEDED FOR NAUSEA/VOMITING TAKE ONE TABLET BY MOUTH EVERY 6-8 HOURS NEEDED FOR NAUSEA/VOMITING SOLD: 04/04/2020 [facility] 20 mg 03/07/2020 12:00:00 AM EDT tablet,delayed release (DR/EC) 30 TAKE ONE TABLET BY MOUTH EVERY DAY TAKE ONE TABLET BY MOUTH EVERY DAY SOLD: 03/08/2020 [facility] 4 mg 03/07/2020 12:00:00 AM EDT tablet 5 TAKE 1 TABLET BY MOUTH EVERY 6-8 HOUR NEEDED FOR NAUSEA AND VOMITING TAKE 1 TABLET BY MOUTH EVERY 6-8 HOUR NEEDED FOR NAUSEA AND VOMITING SOLD: 03/08/2020 [facility] pantoprazole 40 MG Delayed Release Oral Tablet PANTOPRAZOLE SODIUM 01/19/2020 12:00:00 AM EDT tablet,delayed release (DR/EC) 30 T KELI ONE TABLET BY MOUTH EVERY DAY TAKE ONE TABLET BY MOUTH EVERY DAY SOLD: 01/22/2020 [facility] 4 mg 01/19/2020 12:00:00 AM EDT tablet 15 TAKE ONE TABLET BY MOUTH EVERY 6 HOURS NEEDED FOR NAUSEA AND VOMITING TAKE ONE TABLET BY MOUTH EVERY 6 HOURS NEEDED FOR NAUSEA AND VOMITING SOLD: 01/22/2020 [facility] 1 mg 12/27/2019 12:00:00 AM EDT tablet 90 TAKE ONE TABLET BY MOUTH EVERY DAY TAKE ONE TABLET BY MOUTH EVERY DAY SOLD: 12/29/2019 [facility] 400 mg (241.3 mg magnesium) 12/12/2019 12:00:00 AM EDT table t 30 TAKE ONE TABLET BY MOUTH EVERY DAY TAKE ONE TABLET BY MOUTH EVERY DAY SOLD: 12/14/2019 [facility] 20 mEq 12/12/2019 12:00:00 AM EDT tablet,ER particles/cry stals 30 TAKE ONE TABLET BY MOUTH EVERY DAY TAKE ONE TABLET BY MOUTH EVERY DAY SOLD: 12/14/2019 [facility] 4 mg 12/12/2019 12:00:00 AM EDT tablet 20 TAKE ONE TABLET BY MOUTH EVERY 6 HOURS NEEDED FOR NAUSEA TAKE ONE TABLET BY MOUTH EVERY 6 HOURS A S NEEDED FOR NAUSEA SOLD: 12/14/2019 [facility] 20 mg 12/08/2019 12:00:00 AM EDT tablet 14 TAKE ONE TABLET BY MOUTH TWICE A DAY TAKE ONE TABLET BY MOUTH TWICE A DAY SOLD: 12/08/2019 [facility] 12.5 mg 12/08/2019 12:00:00 AM EDT tablet 20 TAKE ONE TABLET BY MOUTH FOUR TIMES A DAY NEEDED TAKE ONE TABLET BY MOUTH FOUR TIMES A DAY NEEDED SO LD: 12/08/2019 [facility] 10 mEq 11/26/2019 12:00:00 AM EDT capsule, extended relea se 7 TAKE ONE CAPSULE BY MOUTH EVERY DAY TAKE ONE CAPSULE BY MOUTH EVERY DAY SOLD: 11/27/2019 [facility] 10 mg 10/22/2019 12:00:00 AM EDT tablet 28 TAKE ONE TABLET BY MOUTH FOUR TIMES A DAY BEFORE FOOD AND AT BEDTIME TAKE ONE TABLET BY MOUTH FOUR TIMES A DA Y BEFORE FOOD AND AT BEDTIME SOLD: 10/22/2019 [facility] 25 mg 10/14/2019 12:00:00 AM EDT suppository 6 INSERT ONE SUPPOSITORY RECTALLY EVERY 8 HOURS INSERT ONE SUPPOSITORY RECTALLY EVERY 8 HOURS SOLD: 10/14/2019 [facility] 4 mg 09/28/2019 12:00:00 AM EDT tablet,disintegrating 1 6 DISSOLVE ONE TABLET ON TONGUE EVERY 6 TO 8 HOURS NEEDED FOR NAUSEA AND VOMITING DISSOLVE ONE TABLET ON TONGUE EVERY 6 TO 8 HOURS NEEDED FOR NAUSEA AND VOMITING SOLD: 09/28/2019 [facility] 4 mg 09/07/2019 12:00:00 AM EDT tablet 10 TAKE ONE TABLET BY MOUTH THREE TIMES A DAY TAKE ONE TABLET BY MOUTH THREE TIMES A DAY SOLD: 09/07/2019 [facility] 4 mg 09/05/2019 12:00:00 AM EDT tablet,disintegrating 8 TAKE ONE TABLET BY MOUTH EVERY 6 TO 8 HOURS NEEDED FOR NAUSEA OR VOMITING TAKE ONE TABLET BY MOUTH EVERY 6 TO 8 HOURS NEEDED FOR NAUSEA OR VOMITING SOLD: 09/05/2019 [facility] 4 mg 05/09/2019 12:00:00 AM EST tablet,disintegrating 8 DISSOLVE ONE TABLET ON THE TONGUE EVERY 6-8 HOURS NEEDED FOR NAUSEA/VOMITING DISSOLVE ONE TABLET ON THE TONGUE EVERY 6-8 HOURS NEEDED FOR NAUSEA/VOMITING SOLD: 05/09/2019 [facility] Insurance Providers Payer name Policy type / Coverage type Policy ID Covered constitution party ID Covered constitution party's relationship to simons Policy Simons Plan Information [facility] [id number] SP [id number] [facility] O [id number] S [id number] [facility] XIX [id number] Medicaid S [id number] S [id number] Managed Care [facility] Community Plan P [id number] S [id number] Medicaid S [id number] S [id number] [facility] XIX [id number] UN AMERIC[employer] XIX HMO [id number] Managed Care [facility] Community Plan P [id number] S [id number] Self Pay P UNAVAILABLE S UNAVAILA BLE [facility] [id number] SP [id number] [facility]) O [id number] S [id number] Managed Care - Community Plan [facility] P [id number] S [id number] Medicaid S [id number] S [id number] [facility] [id number] SP [id number] [facility] [id number] 18 [id number] MEDICAID - CLINIC [id number] Problems, Conditions, and Diagnoses Code Display Name Description Problem Type Effective Dates Data Source(s) N3001 Acute cystitis with hematuria Acute cystitis with armani turia Diagnosis 04/03/2020 04:26:00 PM [facility] [id number] Generalized abdominal pain Generalized abdominal pain Diagnosis 04/03/2020 04:26:00 PM [facility] F1010 Alcohol abuse, uncomplicated Alcohol abuse, uncomplica parminder Diagnosis 02/16/2020 04:43:00 PM EDT [facility] [id number] Nicotine dependence, cigarettes, uncompl icated Nicotine dependence, cigarettes, uncomplicated Diagnosis 02/16/2020 04:43:00 PM EDT [facility] [id number] Cannabis dependence, uncomplicated Cannabis depe ndence, uncomplicated Diagnosis 02/16/2020 04:43:00 PM EDT [facility] E860 Dehydration Dehydration Diagnosis 02/16/2020 04:43:00 PM EDT [facility] R1110 Vomiting, unspecified Vomiting, unspecified Diagnosis 02/16/2020 04:43:00 PM EDT [facility] E876 Hypokalemia Hypokalemia Diagnosis 02/16/2020 04:43:00 PM EDT [facility] [id number] Hypomagnesemia Hypomagnesemia Diagnosis 02/16/2020 04:43: 00 PM EDT [facility] E871 Hypo-osmolality and hyponatremia Hypo-osmolality and hyponatremia Diagnosis 12/26/2019 10:59:00 AM EDT [facility] 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 : RITTER NATALIYA Martinez Acct Number.................. : [id number] ROOM. ................. : TR-03 Number ................... : [id number] Stay type ............. : E/R Discharge Date......... ... : Admit Date ......... : 1 06/03/19 Admit Phys .................... : PARVIN CHANTEL Date of ....... : 1995 Family Phys ................... : ZAY LÓPEZ Phone .................. : [phone] Age ................................ : 24 Film# .................. .:[id number] Sex ................................. : F Unsigned transcriptions are preliminary reports and do not represent a medical or legal document CT ABD & PELVIS W/ IV ONLY [id number] COMPLETE:04/03/20 17:49 43717 Reason(s): Abdominal Pain CT OF THE ABDOMEN AND PELVIS WITH CONTRAST: INDICATION: Abdominal pain. COMPARISON: 02/16/20 FINDINGS: The visualized lower lungs are clear. No enhancing liver lesion. The gallbladder, pancreas and spleen are unremarkable. The bilateral adrenal glands and kidneys are within normal limits. No renal stones or hydronephrosis. The ureters are unremarkable. No aneurysmal dilatation of the aorta. No retroperitoneal adenopathy. No bowel obstruction. Stool scattered in the colon. The appendix is not visualized. The uterus is unremarkable. No adnexal mass. The urinary bladder is within normal limits. No free air or free fluid. The osseous structures are unremarkable. IMPRESSION: No acute abdominal or pelvic findings. Bowels are unremarkable. Appendix not visualized. No free air or free fluid. While performing the above CT examination, radiation dose reduction was accomplished utilizing automated exposure control, adjusting of the mA and kV based on the patient's body size and/or the use of imperative reconstructive techniques. Page 1 of 2 [facility] [address] [place] [address] PHONE: [phone] FAX: [phone] Name .................. : RITTER NATALIYA Martinez Acct Number.................. : [id number] ROOM. ................. : TR-03 MR Number ................... : [id number] Stay type ............. : E/R Discharge Date......... ... : Admit Date ......... : 04/03/20 Admit Phys ... ................. : PARVIN CHANTEL Date of ....... : 1995 Family Phys ................... : [employer] Phone .................. : [phone] Age ................................ : 24 Film# .................. .:[id number] Sex ................................. : F Unsigned transcriptions are preliminary reports and do not represent a medical or legal document CT ABD & PELVIS W/ IV ONLY [id number] COMPLETE:04/03/20 17:49 53747 Reason(s): Abdominal Pain CT dose: 533 mGycm Contrast agent in mL: 75 Isovue 370 Method of administration: Intravenous Electronically Reviewed and Signed By Geraldo Rodriguez MD , 04/04/20 13:12, BUCK Transcribe Initials: DZ , Transcribe Date: 04/03/20 21:12, Dictation Date: Copy for: LADI PARDO via fax Copy for: PARVIN Velazco via fax Copy for: EMERGENCY DEPT via modem Copy for: 710 MED REC DISCHARGED Page 2 of 2 Name Value Range Interpretation Code Description Data Michelle rce(s) Supporting Document(s) ID Date Data Source [id number] 04/03/2020 04:26:00 PM EST [facility] 1 OrderSheet [facility] Emergency Department [address] [place] [address] Phone #: ext- [phone] 04/03/2020 16:19 [id number] Sex: F : 1995 Age: 24yWEIGHT:58.9 kg (S) HEIGHT:62 inches (S) BMI:23.8ALLERGIES: Lactose Intolerance (GI), No Known Drug AllergyCHIEF COMPLAINT: abdominal pain, vomiting, nausea, crampsDIAGNOSIS: Abdominal pain, CystitisLAB ORDERSOrder Description Priority Entered Acknowledged InitialedCBC w Diff STAT 16:59 04/03/2020 17:05 Imtiaz SheetsN. P.A.-C;CMP STAT 16:59 04/03/2020 17:05 Imtiaz SheetsN. P.A.-C;Lipase STAT 16:59 04/03/2020 17:05 Imtiaz SheetsN. P.A.-C;Urinalysis (Clean STAT 16:59 04/03/2020 17:08 Nakia Sheets) Imtiaz GallegosN. P.A.-C;Lactic Acid STAT 16:59 04/03/2020 17:05 Imtiaz SheetsN. P.A.-C;Beta-HCG, Qual STAT 16:59 04/03/2020 17:05 Sudeep,Serum Imtiaz Wiseman R.N. P.A.-C;Magnesium STAT 16:59 04/03/2020 17:05 Imtiaz Sheets R.N. P.A.-C;Culture, Urine STAT 17:48 04/03/2020 17:59 Sudeep,(Urine, Clean Imtiaz Wiseman R.N.Catch) P.A.-C;DIAGNOSTIC STUDY ORDERSOrder Description Priority Entered Acknowledged InitialedCT Abd PEL W/ IV STAT 17:49 04/03/2020 19:48 Sudeep,Contrast Only Imtiaz Wiseman R.N.(Oxygen?(No)) P.A.-C;(IV?(Yes)) 2 OrderSheet [facility] Emergency Department [address] [place] [address] Phone #: ext- [phone] 04/03/2020 16:19 Patient: NATALIYA BEASLEY Sex: F : 1995 Age: 24y Reason for Study: Abdominal Pain, Nausea, VomitingMEDICATION/IV/DRIP/FLUID ORDERSOrder Description Priority Entered Acknowledged InitialedNS IV : Bolus 1000 16:59 04/03/2020 17:15 Sudeep,mL, then 75 mL/hr Imtiaz Wiseman R.N. P.A.-C;Zofran IVP 8 mg 16:59 04/03/2020 17:15 Imtiaz Sheets R.N. P.A.-C;Protonix IVPB 40 16:59 04/03/2020 17:15 Sudeepmg with Dextrose Imtiaz GallegosNSveta100 ml spike bag P.A.-C;(D5W)Benadryl IVP 25 mg 16:59 04/03/2020 17:16 Imtiaz Sheets R.N. P.A.-C;Pepcid IVPB 20 16:59 04/03/2020 17:16 Sudeepmg/50mL (NOW x1, Imtiaz Wiseman R.N.Infuse over 30 P.A.-C;minutes.)Rocephin 20:23 04/03/2020 20:37 Melaragno,(1gm/50mL) IVPB Imtiaz Sigala R.N.1000 mg with P.A.-C;Dextrose 50 mlspike bag (D5W)GENERAL ORDERSOrder Description Priority Entered Acknowledged InitialedNPO 16:59 04/03/2020 17:05 Imtiaz Sheets R.N. P.A.-C;Saline Lock 16:59 04/03/2020 17:05 Imtiaz Sheets R.N. P.A.-C;[Electronically signed by Ivone Sheets R.N. (21:04 04/03/2020)][Electronically signed by Imtiaz España.A.-C (21:42 04/03/2020)][Electronically locked by Ivone Sheets R.N. (21:04 04/03/2020)] Name Value Range Interpretation Code Description Data Michelle rce(s) Supporting Document(s) ID Date Data Source [id number] 04/03/2020 04:26:00 PM EST [facility] 1 Medication Reconciliation Report [facility] Emergency Department [address] [place] [address] Phone #: ext- [phone] 04/03/2020 16:19 Patient: NATALIYA BEASLEY Sex: F : 1995 Age: 24yWeight: 58.9 kgHeight/Length: 62 in.BMI: 23.8ALLERGIES: Lactose Intolerance (GI), No Known Drug AllergyThe patient's Home Medications are listed below:NONE.The source(s) of the original Home Medication information:patientThe following Medications were given to the patient in the Emergency Department:NS [IV] IV Fluids bolus 1000 mL over 1 hour(s), administered: 04/03/2020 5:15:00 PMZofran [IVP] IVP 8 mg, administered: 04/03/2020 5:15:00 PMProtonix [IVPB] IVPB bolus 0, then 40 mg 200 mL/hr, administered: 04/03/2020 5:15:00 PMBenadryl [IVP] IVP 25 mg, administered: 04/03/2020 5:16:00 PMPepcid [IVP] IVP 20 mg, administered: 04/03/2020 5:16:00 PMNS [IV] IV Fluids bolus 0, then 75 mL/hr, administered: 04/03/2020 7:56:00 PMROCEPHIN (1GM/50ML) [IVPB] IVPB bolus 1 gm wide open, then 1 gm 100 mL/hr, administered:04/03/2020 8:36:00 PMThe following Medications were prescribed to the patient:Macrobid 100 mg capsule Take 1 capsule twice a day for 7 days -- Dispense 14 capsule. Refills: 0.Substitution permitted.Pharmacy - [address] [place] [address]. .Zofran 4 mg tablet Take 1 tablet three times a day for 4 days -- Dispense 12 tablet. Refills: 0.Substitution permitted. 2 Medication Reconciliation Report [facility] Emergency Department [address] [place] [address] Phone #: ext- [phone] 04/03/2020 16:19 Patient: NATALIYA BEASLEY Sex: F : 1995 Age: 24[address] [place] [address]. . -- Imtiaz España P.A.-C Name Value Range Interpretation Code Description Data Michelle rce(s) Supporting Document(s) ID Date Data Source [id number] 04/03/2020 04:26:00 PM EST [facility] 1 Medication Administration Record [facility] Emergency Department [address] [place] [address] Phone #: ext- [phone] 04/03/2020 16:19 Patient: NATALIYA BEASLEY Sex: F : 1995 Age: 24yWeight: 58.9 kgHeight/Length: 62 inBMI: 23.8ALLERGIES: Lactose Intolerance (GI), No Known Drug Allergy Date/Time Medication Administered Medication OrderedStart NS [IV] NS IV : Bolus 1000 mL, then 7517:15 04/03/2020 Dose: IV Fluids mL/Ivone Billy, R.NSveta Bolus: 1000 mL over 1 hour(s)---- Dispensed: 1000 mL bagStop Site: #1 left AC19:38 04/03/2020Ivone Sheets RSvetaNSvetaStart NS [IV] NS IV : Bolus 1000 mL, then 7519:56 04/03/2020 Dose: IV Fluids mL/hrZakiya Quiles, R.NSveta Rate: 75 mL/hr---- Dispensed: 1000 mL bagStop Site: #1 left AC20:54 04/03/2020Zakiya Quiles, R.NSvetaGiven ZOFRAN [IVP] (ONDANSETRON HCL) Zofran IVP 8 mg17:15 04/03/2020 Dose: 8 mg IVPIvone Sheets, R.N. Site: #1 left ACStart PROTONIX [IVPB] (PANTOPRAZOLE Protonix IVPB 40 mg with17:15 04/03/2020 SODIUM) Dextrose 100 ml spike bag (D5W)Ivone Sheets RPura Dose: 40 mg IVPB---- Rate: 200 mL/hr over 30 minute(s)Stop Dispensed: 100 mL bag19:38 04/03/2020 Site: #1 left AC Ivone Sheets R.N.Given BENADRYL [IVP] (DIPHENHYDRAMINE Benadryl IVP 25 mg17:16 04/03/2020 HCL)Ivone Sheets R.N. Dose: 25 mg IVP Site: #1 left ACGiven PEPCID [IVP] Pepcid IVPB 20 mg/50mL (NOW17:16 04/03/2020 Dose: 20 mg IVP x1, Infuse over 30 minutes.)Ivone Sheets R.N. Site: #1 left ACStart ROCEPHIN (1GM/50ML) [IVPB] Rocephin (1gm/50mL) IVPB 503842:36 04/03/2020 (CEFTRIAXONE SODIUM) mg with Dextrose 50 ml spike Zakiya Dougherty R.N. Dose: 1 gm IVPB (D5W)---- Rate: 100 mL/hr over 30 minute(s)Stop Bolus: 1 gm wide open20:54 04/03/2020 Dispensed: 50 mL Zakiya Dougherty RPura Site: #1 left AC Name Value Range Interpretation Code Description Data Michelle rce(s) Supporting Document(s) ID Date Data Source [id number] 04/03/2020 04:26:00 PM EST [facility] 1 General Instructions [facility] Emergency Department [address] [place] [address] Phone #: ext- [phone] 04/03/2020 16:19 Patient: NATALIYA BEASLEY Sex: F : 1995 Age: 24yAcute generalized abdominal pain of unknown cause.Acute cystitis with hematuria.INSTRUCTIONSTake Tylenol (Acetaminophen) or Motrin (Ibuprofen) as needed for fever control. Take medicationaccording to label instructions. Do not work for three days.Drink plenty of fluids. No dietary rest rictions.(Discussed of OTC Motrin and Tylenol to control inflammation and pain management. Informed to followdirections on bottle that are appropriate for age and/or weight.I have provided infomration on 2 seperate surgeons for you to choose whom you would like. [facility] and is aware of your conditions.).Warnings: Further evaluation is necessary.GENERAL WARNINGS: Return or contact your physician immediately if your condition worsens orchanges unexpectedly, if not improving as expected, or if other problems arise.Your Current Medications: .No home medication.Prescription Medications:Macrobid 100 mg capsule Take 1 capsule twice a day for 7 days -- Dispense 14 capsule. Refills: 0.Substitution permitted.[facility] [address] [place] [address]. .Zofran 4 mg tablet Take 1 tablet three times a day for 4 days -- Dispense 12 tablet. Refills: 0.Substitution permitted.[facility] [address] [place] [address]. .Follow-up:Return to the emergency department as needed. Follow up with your healthcare provider in about twodays if not better. Call for an appointment.Understanding of the discharge instructions verbalized by patient. 2 General Instructions [facility] Emergency Department [address] [place] [address] Phone #: ext- [phone] 04/03/2020 16:19 - Patient: NATALIYA BEASLEY Sex: F : 1995 Age: 24yFollow-up with: Shabbir Addison MD, Gastroenterology, [id number], [facility],[address], [address], [address] Follow up. Call for the next available appointment. Reason for referral: evaluation and treatment.Follow-up with: [facility], , , [address] [place] [address], [address] Follow up. Call for the next available appointment. Reason for referral: evaluation and treatment. ADDITIONAL INFORMATIONUnknown Causes of Abdominal Pain (Female)The exact cause of your belly (abdominal) pain is not clear. This does not mean that this is somethingto worry about. Everyone likes to know the exact cause of the problem. But sometimes with bellypain, there is no clear-cut cause, and this could be a good thing. The good news is that yoursymptoms can be treated, and you will feel better.Your condition does not seem serious now. But sometimes the signs of a serious problem may takemore time to appear. For this reason, it is important for you to watch for any new symptoms,problems, or worsening of your condition.Over the next few days, the abdominal pain may come and go. Or it may be constant. Other common 3 General Instructions [facility] Emergency Department [address] [place] [address] Phone #: ext- [phone] 04/03/2020 16:19 [facility]: [id number] Sex: F : 1995 Age: 24ysymptoms can include nausea and vomiting. Sometimes it can be difficult to tell if you feel nauseous.You may just feel bad and not connect that feeling to nausea. Constipation, diarrhea, and a fever maygo along with the pain.The pain may continue even if treated correctly over the following days. Depending on how things go,sometimes the cause can become clear and may need more or different treatment. Additionalevaluations, medicines, or tests may also be needed.Home careYour healthcare provider may prescribe medicine for pain, symptoms, or an infection. Follow thehealthcare provider's instructions for taking these medicines.General care Rest as much as you can until your next exam. No strenuous activities. Try to find positions that ease discomfort. A small pillow placed on the abdomen may help relieve pain. Something warm on your abdomen (such as a heating pad) may help, but be careful not to burn yourself.Diet Don't force yourself to eat, especially if having cramps, vomiting, or diarrhea. Water is important so you don't get dehydrated. Soup may also be good. Sports drinks may also help, especially if they are not too acidic. Don't drink sugary drinks as this can make things worse. Take liquids in small amounts. Don't guzzle them. Caffeine sometimes makes the pain and cramping worse. Don't take dairy products if you have vomiting or diarrhea. Don't eat large amounts at a time. Wait a few minutes between bites. Eat a diet low in fiber (called a low-residue diet). Foods allowed include refined breads, white rice, fruit and vegetable juices without pulp, tender meats. These foods will pass more easily through the intestine. Don't have whole-grain foods, whole fruits and vegetables, meats, seeds and nuts, fried or fatty foods, dairy, alcohol and spicy foods until your symptoms go away.Follow-up careFollow up with your healthcare provider, or as advised, if your pain does not begin to improve in the 4 General Instructions [facility] Emergency Department [address] [place] [address] Phone #: ext- [phone] 04/03/2020 16:19 Patient: NATALIYA BEASLEY Sex: F : 1995 Age: 24ynext 24 hours.Call [phone] if any of these occur: Trouble breathing Confusion Fainting or loss of consciousness Rapid heart rate SeizureWhen to seek medical adviceCall your healthcare provider right away if any of these occur: Pain gets worse or moves to the right lower abdomen New or worsening vomiting or diarrhea Swelling of the abdomen Unable to pass stool for more than 3 days Fever of 100.4F (38C) or higher, or as directed by your healthcare provider. Blood in vomit or bowel movements (dark red or black color) Yellow color of eyes and skin (jaundice) Weakness, dizziness Chest, arm, back, neck, or jaw pain Unexpected vaginal bleeding or missed period Can't keep down liquids or water and you are getting dehydrated [id number] [employer]. [address] [place] [address]. All rights reserved. This information is not intended as asubstitute for professional medical care. Always follow your healthcare professional's instructions.Bladder Infection, Female (Adult) 5 General Instructions [facility] Emergency Department [address] [place] [address] Phone #: ext- [phone] 04/03/2020 16:19 Patient: NATALIYA BEASLEY Sex: F : 1995 Age: 24yUrine is normally doesn't have any bacteria in it. But bacteria can get into the urinary tract from theskin around the rectum. Or they can travel in the blood from elsewhere in the body. Once they are inyour urinary tract, they can cause infection in the urethra (urethritis), the bladder (cystitis), or thekidneys (pyelonephritis).The most common place for an infection is in the bladder. This is called a bladder infection. This isone of the most common infections in women. Most bladder infections are easily treated. They arenot serious unless the infection spreads to the kidney.The phrases "bladder infection," "UTI," and "cystitis" are often used to describe the same thing. Butthey are not always the same. Cystitis is an inflammation of the bladder. The most common cause ofcystitis is an infection.SymptomsThe infection causes infl ammation in the urethra and bladder. This causes many of the symptoms.The most common symptoms of a bladder infection are: Pain or burning when urinating Having to urinate more often than usual Urgent need to urinate Only a small amount of urine comes out Blood in urine Abdominal discomfort. This is usually in the lower abdomen above the pubic bone. 6 General Instructions [facility] Emergency Department [address] [place] [address] Phone #: ext- [phone] 04/03/2020 16:19 Patient: NATALIYA BEASLEY Sex: F : 1995 Age: 24y Cloudy urine Strong- or bad-smelling urine Unable to urinate (urinary retention) Unable to hold urine in (urinary incontinence) Fever Loss of appetite Confusion (in older adults)CausesBladder infections are not contagious. You can't get one from someone else, from a toilet seat, orfrom sharing a bath.The most common cause of bladder infections is bacteria from the bowels. The bacteria get onto theskin around the opening of the urethra. From there, they can get into the urine and travel up to thebladder, causing inflammation and infection. This usually happens because of: Wiping improperly after urinating. Always wipe from front to back. Bowel incontinence Procedures such as having a catheter inserted Older age Not emptying your bladder. This can allow bacteria a chance to grow in your urine. Dehydration Constipation Sex Use of a diaphragm for controlTreatmentBladder infections are diagnosed by a urine test. They are treated with antibiotics and usually clear upquickly without complications. Treatment helps prevent a more serious kidney infection.Medicines 7 General Instructions [facility] Emergency Department [address] [place] [address] Phone #: ext- [phone] 04/03/2020 16:19 Patient: NATALIYA BEASLEY Sex: F : 1995 Age: 24yMedicines can help in the treatment of a bladder infection: Take antibiotics until they are used up, even if you feel better. It is important to finish them to make sure the infection has cleared. You can use acetaminophen or ibuprofen for pain, fever, or discomfort, unless another medicine was prescribed. If you have chronic liver or kidney disease, talk with your healthcare provider before using these medicines. Also talk with your provider if you've ever had a stomach ulcer or gastrointestinal bleeding, or are taking blood-thinner medicines. If you are given phenazopydridine to reduce burning with urination, it will cause your urine to become a bright orange color. This can stain clothing.Care and preventionThese self-care steps can help prevent future infections: Drink plenty of fluids to prevent dehydration and flush out your bladder. Do this unless you must restrict fluids for other health reasons, or your doctor told you not to. Proper cleaning after going to the bathroom is important. Wipe from front to back after using the toilet to prevent the spread of bacteria. Urinate more often. Don't try to hold urine in for a long time. Wear loose-fitting clothes and cotton underwear. Avoid tight-fitting pants. Improve your diet and prevent constipation. Eat more fresh fruit and vegetables, and fiber, and less junk and fatty foods. Avoid sex until your symptoms are gone. Avoid caffeine, alcohol, and spicy foods. These can irritate your bladder. Urinate right after intercourse to flush out your bladder. If you use control pills and have frequent bladder infections, discuss it with your doctor.Follow-up careCall your healthcare provider if all symptoms are not gone after 3 days of treatment. This is especiallyimportant if you have repeat infections.If a culture was done, you will be told if your treatment needs to be changed. If directed, you cancall to find out the results.If X-rays were done, you will be told if the results will affect your treatment. 8 General Instructions [facility] Emergency Department [address] [place] [address] Phone #: ext- [phone] 04/03/2020 16:19 Patient: NATALIYA BEASLEY Sex: F : 1995 Age: 24yCall 911Call 911 if any of the following occur: Trouble breathing Hard to wake up or confusion Fainting or loss of consciousness Rapid heart rateWhen to seek medical adviceCall your healt hcare provider right away if any of these occur: Fever of 100.4F (38.0C) or higher, or as directed by your healthcare provider Symptoms are not better by the third day of treatment Back or belly (abdominal) pain that gets worse Repeated vomiting, or unable to keep medicine down Weakness or dizziness Vaginal discharge Pain, redness, or swelling in the outer vaginal area (labia) [phone] [employer]. [address] [place] [address]. All rights reserved. This information is not intended as asubstitute for professional medical care. Always follow your healthcare professional's instructions.Blood in the Urine 9 General Instructions [facility] Emergency Department [address] [place] [address] Phone #: ext- [phone] 04/03/2020 16:19 Patient: NATALIYA BEASLEY Sex: F : 1995 Age: 24yBlood in the urine (hematuria) has many possible causes. If it occurs after an injury (such as a caraccident or fall), it is most often a sign of bruising to the kidney or bladder. Common causes of bloodin the urine include urinary tract infections, kidney stones, inflammation, tumors, or certain otherdiseases of the kidney or bladder. Menstruation can cause blood to appear in the urine sample,although it is not coming from the urinary tract.If only a trace amount of blood is present, it will show up on the urine test, even though the urine maybe yellow and not pink or red. This may occur with any of the above condition s, as well as heavyexercise or high fever. In this case, your doctor may want to repeat the urine test on another day. Thiswill show if the blood is still present. If it is, then other tests can be done to find out the cause.Home careFollow these home care guidelines: If your urine does not appear bloody (pink, brown or red) then you do not need to restrict your activity in any way. If you can see blood in your urine, rest and avoid heavy exertion until your next exam. Do not use aspirin, blood thinners, or anti-platelet or anti- inflammatory medicines. These include ibuprofen and naproxen. These thin the blood and may increase bleeding.Follow-up careFollow up with your healthcare provider, or as advised. If you were injured and had blood in your 10 General Instructions [facility] Emergency Department [address] [place] [address] Phone #: [phone]- [phone] 04/03/2020 16:19 Patient: NATALIYA BEASLEY Sex: F : 1995 Age: 24yurine, you should have a repeat urine test in 1 to 2 days. Contact your doctor for this test.A radiologist will review any X-rays that were taken. You will be told of any new findings that mayaffect your care.When to seek medical adviceCall your healthcare provider right away if any of these occur: Bright red blood or blood clots in the urine (if you did not have this before) Weakness, dizziness or fainting New groin, abdominal, or back pain Fever of 100.4F (38C) or higher, or as directed by your healthcare provider Repeated vomiting Bleeding from the nose or gums or easy bruising [id number] [employer]. [address] [place] [address], [place] [address]. All rights reserved. This information is not intended as asubstitute for professional medical care. Always follow your healthcare professional's instructions. You have been given the following additional information: Abdominal Pain, Unknown Cause, (Female) Bladder Infection, Female (Adult) Hematuria Do not work for three days.(Electronically signed by Imtiaz España P.A.-C 04/03/2020 21:42) Name Value Range Interpretation Code Description Data Michelle rce(s) Supporting Document(s) ID Date Data Source [id number] 04/03/2020 04:26:00 PM EST [facility] 1 Clinical Report - Nurses [facility] Emergency Department [address] [place] [address] Phone #: pyr- [phone] 04/03/2020 16:19 Patient: NATALIYA BEASLEY Sex: F : 1995 Age: 24yTRIAGEHistorian: patient. Unaccompanied.Triage time: 16:21 04/03/2020. Acuity: LEVEL 3.Chief Complaint: ABDOMINAL PAIN, NAUSEA and VOMITING.Alert. No acute distress.( Pt states non-stop vomiting x2 days. Reports diffuse abd pain and heartburn. Last BM yesterday.).--16:27 04/03/20 Misa Mariee6:21 04/03/20. BP: 124/74. MAP: 90. HR: 60. RR: 16. O2 saturation: 99% on room air. Temp: 99 F(oral). Pain level now: 01/25. --16:27 04/03/20 Chencho Mariee.Weight: 58.9 kg stated. Height/Length: 62 inches Per Patient. BMI: 23.8. --16:21 04/03/20 Chencho Mariee.MedicationsNone. --16:27 04/03/20 Chencho Mariee.AllergiesNo Known Drug Allergy. --16:27 04/03/20 Chencho MarieeLactose Intolerance (GI). --16:27 04/03/20 Chencho Mariee.Medication/allergy information source: the patient. --16:04/03/20 Chencho Mariee.HistoryPAST MEDICAL HX: Last normal menstrual period- Mar 27. Denies current .SOCIAL HX: Never smoker. History of drug use: marijuana. No alcohol use. The patient was offeredHIV testing but declined. Patient education was provided. The patient was offered hepatitis C testing butdeclined. Patient education was provided. The patient has not traveled outside the [place]Infectious disease exposure: No infectious disease exposure. The patient was not exposed to Coronavirus.Patient is not a known carrier of tuberculosis, hepatitis, HIV, MRSA or VRE. Patient is not a known carrierof CRE.SELF HARM ASSESSMENT: Self harm assessment was performed. The patient answered "no" to thequestion(s) "Do you have thoughts of harming or killing yourself?", "Do you have a plan for harming orkilling yourself?" and "Have you recently had thoughts about harming or killing others?".ABUSE ASSESSMENT: Abuse assessment. The patient had positive responses to the question(s) "Do youfeel safe in your home?". Abuse denied. No suspicion of abuse. No report of abuse.NUTRITIONAL RISK ASSESSMENT: The nutritional risk assessment revealed no deficiencies. 2 Clinical Report - Nurses [facility] Emergency Department [address] [place] [address] Phone #: ext- [phone] 04/03/2020 16:19 ----- Patient: NATALIYA BEASLEY Sex: F : 1995 Age: 24y FUNCTIONAL ASSESSMENT: Functional assessment: no impairments noted. LEARNING NEEDS ASSESSMENT: The learning needs assessment revealed no barriers. FALL RISK ASSESSMENT: Fall risk assessment completed. No risk factors identified. SKIN INTEGRITY ASSESSMENT: Skin integrity risk assessment completed. No skin integrity risk identified. --16:27 04/03/20 Chencho Mariee SOCIAL HX: Occasional alcohol use; consumes six beers occasionally. (states just drinks on the weekends.). --16:29 04/03/20 Chencho Mariee. Interventions Identification band on patient. To treatment room. Advanced care plan (full code). --16:27 04/03/20 Chencho Mariee.PHYSICAL ASSESSMENTAmbulatory to room.GENERAL / NEURO / PSYCH: Alert. Oriented X 4. Appears in pain.HEENT: Mucous membranes are pink.RESPIRAT ORY: Respirations not labored. Breath sounds within normal limits.CVS: Capillary refill less than 2 seconds.GI / : The patient has had nausea. Emesis noted. Has vomited numerous times. Abdominaltenderness diffusely. Bowel sounds within normal limits.SKIN: Skin is warm and dry. --16:33 04/03/20 Ivone Sheets R.N.NURSING PROGRESS NOTES16:50 04/03/2020 Site #1 started via IV in the left antecubital space with an 20g angiocath, with aseptictechnique and good blood return; one attempt. Blood drawn: rainbow set. Saline lock flushed with 10 mLsaline (Given to primary RN.). --16:50 04/03/20 Jaylene Chencho 17:15 04/03/2020 Started bag #1 1000 mL IV Fluids NS; bolus of 1000 mL over 1 hour(s) via site #1 via IV pump. Allergies verified and confirmed 5 rights. IV patency established. IV site checked: no pain, redness, or swelling. IV flushed thoroughly pre- and post-medication administration. Information reviewed with patient including reason for taking this medication. Verbalizes understanding. --17:15 04/03/20 Ivone Sheets R.N. 17:15 04/03/2020 Zofran (Ondansetron HCl) IVP 8 mg given over 3 minute(s) via site #1. Allergies verified and confirmed 5 rights. IV patency established. IV site checked: no pain, redness, or swelling. IV flushed thoroughly pre- and post-medication administration. IVP given by RN. Information reviewed with patient including reason for taking this medication. Verbalizes understanding. --17:15 04/03/20 Ivone Sheets R.N. 3 Clinical Report - Nurses [facility] Emergency Department [address] [place] [address] Phone #: ext- [phone] 04/03/2020 16:19 Patient: NATALIYA BEASLEY Sex: F : 1995 Age: 24y17:15 04/03/2020 Started 40 mg of Protonix (Pantoprazole Sodium) IVPB in bag #1 100 mL; at 200 mL/hrover 30 minute(s) via site #1. via IV pump. Allergies verified and confirmed 5 rights. IV patency established.IV site checked: no pain, redn ess, or swelling. IV flushed thoroughly pre- and post-medicationadministration. Information reviewed with patient including reason for taking this medication. Verbalizesunderstanding. --17:16 04/03/20 Ivone Sheets R.N.17:16 04/03/2020 Benadryl (diphenhydrAMINE HCl) IVP 25 mg given over 3 minute(s) via site #1. Allergiesverified and confirmed 5 rights. IV patency established. IV site checked: no pain, redness, or swelling. IVflushed thoroughly pre- and post- medication administration. IVP given by RN. Information reviewed withpatient including reason for taking this medication and sedative warning. Verbalizes understanding.--17:16 04/03/20 Ivone Sheets R.N.17:16 04/03/2020 Pepcid IVP 20 mg given over 30 minute(s) via site #1. Allergies verified and confirmed 5rights. IV patency established. IV site checked: no pain, redness, or swelling. IV flushed thoroughly pre-and post-medication administration. IVP given by RN. Information reviewed with patient including reasonfor taking this medication. Verbalizes understanding. --17:16 04/03/20 Ivone Sheets R.N.17:23 11/17/20. BP: 150/88. MAP: 108. HR: 58. RR: 18. O2 saturation: 100%. --17:24 04/03/20 Ivone Sheets R.N.Patient gowned. Reassurance given. Reassessment after medication administered. Nausea still presentbut improving. She is sleeping. --17:24 04/03/20 Ivone Sheets R.N.The patient is sleeping. Overall patient status- she states feels better. Patient waiting for CT results.--18:00 04/03/20 Ivone Sheets R.N.Reassessment after medication administered. Nausea still present but improving. Vomiting gone now.She is resting quietly. Overall patient status- she states feels better. --19:03 04/03/20 Ivone Sheets R.N.19:38 04/03/2020 Protonix IVPB via IV site #1 Discontinued: bag #1 completed upon arrival. Total amountinfused: 50 mL. IV patency established. IV site checked: no pain, redness, or swelling. IV flushedthoroughly. --19:38 04/03/20 Ivone Sheets R.N.19:38 04/03/2020 IV Fluids NS via IV site #1 Discontinued: bag #1 co mpleted upon arrival. Total amountinfused: 1000 mL. IV patency established. IV site checked: no pain, redness, or swelling. IV flushedthoroughly. --19:38 04/03/20 Ivone Sheets R.N.19:43 04/03/20. Patient transported to CT by wheelchair with mask and tech. --19:48 04/03/20 Ivone Sheets R.N.19:56 04/03/2020 Started bag #1 1000 mL IV Fluids NS; at 75 mL/hr via site #1 via IV pump. Allergiesverified and confirmed 5 rights. IV patency established. IV site checked: no pain, redness, or swelling. IVflushed thoroughly pre- and post- medication administration. Information reviewed with patient. Verbalizes 4 Clinical Report - Nurses [facility] Emergency Department [address] [place] [address] Phone #: ext- [phone] 04/03/2020 16:19 Patient: NATALIYA BEASLEY Sex: F : 1995 Age: 24y understanding. --19:56 04/03/20 Zakiya Quiles R.N. 19:56 04/03/20. BP: 137/72. MAP: 93. HR: 70. RR: 18. O2 saturation: 99% on room air. --19:57 04/03/20 Zakiya Quiles R.N. The patient is calm and resting quietly. Patient returned from CT by wheelchair with mask and veterinary laboratory technician. --19:57 04/03/20 Zakiya Quiles R.N. 20:36 04/03/2020 Started 1 gm of ROCEPHIN (1GM/50ML) (cefTRIAXone Sodium) IVPB in bag #1 50 mL; bolus of 1 gm wide open then at 100 mL/hr over 30 minute(s) via site #1. via IV pump. Allergies verified and confirmed 5 rights. IV patency established. IV site checked: no pain, redness, or swelling. IV flushed thoroughly pre- and post-medication administration. Information reviewed with patient. Verbalizes understanding. --20:37 04/03/20 Zakiya Quiles R.N. 20:54 04/03/2020 ROCEPHIN (1GM/50ML) IVPB via IV site #1 Discontinued: bag #1 completed. Total amount infused: 50 mL. IV patency established. IV site checked: no pain, redness, or swelling. IV flushed thoroughly. --20:54 04/03/20 Zakiya Quiles R.N. 20:54 04/03/2020 IV Fluids NS via IV site #1 Discontinued: bag #2 discontinued upon discharge. Total amount infused: 100 mL. IV patency established. IV site checked: no pain, redness, or swelling. IV flushed thoroughly. --20:54 04/03/20 Zakiya Quiles R.N.DISPOSITION / DISCHARGE 21:03 04/03/2020 Site #1 removed upon discharge. Catheter intact. Manual pressure and bandage applied. --21:03 04/03/20 Ivone Sheets R.N. Condition at departure: improved and stable. No learning barriers present. Discharge instructions provided and reviewed with the patient. Reviewed medication(s). Prescription(s) sent electronically to pharmacy. Reviewed referral to a surgeon and lead carpenter. Work note given. Patient verbalized understanding. Written instructions provided in American. The patient was discharged by the physician glass ribbon machine operator assistant. She was discharged home and accompanied by parent. She left ambulatory and via private vehicle. Parent driving. --21:04 04/03/20 Ivone Sheets R.N. 21:03 04/03/20. BP: 133/79. MAP: 97. HR: 66. RR: 18. O2 saturation: 100%. Temp: 98.1 F. Pain level now: 09/24. --21:04 04/03/20 Ivone Sheets R.N.Locked/Released at 04/03/2020 21:04 by Ivone Sheets R.N. Name Value Range Interpretation Code Description Data Michelle rce(s) Supporting Document(s) ID Date Data Source [id number] 04/03/2020 04:26:00 PM [facility] 1 Clinical Report - Physicians/Mid Levels [facility] Emergency Department [address] [place] [address] Phone #: ext- [phone] 04/03/2020 16:19 Patient: NATALIYA BEASLEY Sex: F : 1995 Age: 24y Time Seen: 16:35 04/03/2020; initial patient contact, initial documentation. Arrived- By private vehicle. Historian- patient. Note: Previous visits to this facility for similar complaints. Patient has a primary care physician. Disposition decision: 20:51 04/03/2020.HISTORY OF PRESENT ILLNESS Chief Complaint: ABDOMINAL PAIN and VOMITING, NAUSEA and CRAMPS. This started 2 days ago and is still present. It is described as well localized and it is described as generalized in location. At its maximum, severity described as moderate. When seen in the E.D., severity described as moderate. The patient has had nausea and vomiting. (Pt presents with c/o N/V and abd pain x 2 days. Pt has been seen for this similar s/s multiple times in this ER. Potassium is low and requires admission for eval. Pt sts s/s started like previous episodes and presented to ER. No othe rcomplaints. Unsure if potassium is off again.). Similar symptoms previously. Patient has had similar symptoms frequently. Recent medical care: Not recently seen/assessed.REVIEW OF SYSTEMSLast normal menstrual period was 1 week ago. No constipation, black stools, hematemesis, difficulty withurination or pain with urination. No urinary frequency, bloody stools, fever, headache or sore throat. Noblurred vision, chest pain, difficulty breathing, cough or joint pain. No skin rash, chills or back pain. Thepatient has not had weight loss. All other systems reviewed and are negative.PAST HISTORYSee nurses notes. Problems: Gastritis. Ear infection with tubes. Abnormal Test. Vomiting. Hyponatremia. Hypokalemia. Hypomagnesemia. Alcoholism. Lactose Intolerance. Additional Surgeries: Tube in ears. Tubes in ears. 2 Clinical Report - Physicians/Martha Messina [facility] Emergency Department [address] [place] [address] Phone #: ext- [phone] 04/03/2020 16:19 Patient: NATALIYA BEASLEY Sex: F : 1995 Age: 24y Tympanostomy Tubes. Medications: None. Allergies: Lactose Intolerance (GI). No Known Drug Allergy.SOCIAL HISTORYNever smoker. History of drug use: last use was about 2 days ago: marijuana. No alcohol use.ADDITIONAL NOTESThe nursing notes have been reviewed.PHYSICAL EXAMVital Signs: 04/03/2020 16:21 BP: 124/74. MAP: 90. HR: 60. RR: 16. O2 saturation: 99% on room air.Temp: 99 F. Pain level now: 01/25. Have been reviewed. Oxygen sat uration normal.Appearance: Alert. Oriented X3. No acute distress.Eyes: Eyelids appear normal to inspection. Conjunctivae and sclerae appear normal to inspection.Corneas appear normal to inspection. Pupils equal, round and reactive to light and light.Accommodation normal. EOMs intact. Periorbital areas appear normal to inspection. Anteriorchambers clear.ENT: Normal ENT inspection. Airway intact. TM's normal. Ears normal. Nose normal. Nares normal.Dry mucous membranes present. Voice normal.Neck: Normal inspection. Neck supple.CVS: Normal heart rate and rhythm. No JVD present. Pulses normal. Capillary refill normal. Strongperipheral pulses. Heart sounds normal. Pulses: right radial 2+; left radial 2+; right dorsalis pedis 2+; leftdorsalis pedis 2+; right posterior tibial 2+; left posterior tibial 2+.Respiratory: Chest normal on inspection. No respiratory distress. Unlabored respirations. Lungs clear.Good chest movement. Breath sounds normal and equal. Chest nontender.Abdomen: Soft. Moderate tendern ess diffusely. Bowel sounds normal. No distention.Skin: Skin warm and dry.Extremities: Extremities exhibit normal ROM. No lower extremity edema. No calf tenderness. No lowerextremity edema.Neuro: Awake. Alert. Mood/affect normal. Cranial nerves II through XII intact and normal (as tested).No motor deficit. Moves all extremities. No sensory deficit. Reflexes normal. Reflex exam: right triceps2+, left triceps 2+, right biceps 3+, left biceps 3+, right brachioradialis 3+ and left brachioradialis 3+.Psych: Cognition normal. Thought process and content normal. Insight and judgement normal.LABS, X-RAYS, AND EKGCT Abdomen - Pelvis: Michael brown Brian - 04/03/2020 8:13:24 PMNo acute abdominal or pelvic findings. Bowels unremarkable. Appendix not visualized. No free air or freefluid. The study was interpreted by the radiologist.Laboratory Tests: 3 Clinical Report - Physicia ns/Mid Levels [facility] Emergency Department [address] [place] [address] Phone #: ext- [phone] 04/03/2020 16:19 Patient: NATALIYA BEASLEY Sex: F : 1995 Age: 24yCBC w Diff: (ANGELY: 04/03/2020 16:45) ( MsgRcvd 04/03/2020 17:23) Final results Test Result Flag Units (Reference) CBC W/AUTOMATED DIFF COMPLETE BLOOD COUNT WBC 10.2 10/uL (4.2 - 11.0) RBC 4.79 10/uL (4.20 - 5.40) HEMOGLOBIN 11.7 L g/dL (12.0 - 16.0) HEMATOCRIT 36.9 L % (37.0 - 47.0) MCV 77.0 L fL (81.0 - 101) MCH 24.4 L pg (27.0 - 34.0) MCHC 31.7 g/dL (31.0 - 36.0) RDW 16.5 H % (11.5 - 14.5) PLATELETS 365 10/uL (150 - 450) MPV 11.2 H fL (7.4 - 10.4) NEUT 83.4 H % (37.0 - 80.0) LYMPH 10.4 L % (25.0 - 40.0) MONO 5.6 % (3.0 - 8.0) EOS 0.0 % (0.0 - 7.0) BASO 0.2 % (0.0 - 2.5) %IG 0.4 H % (0.0 - 0.0) %NRBC 0.0 % (0.0 - 0.0) #NEUT 8.50 H 10/uL (2.00 - 6.90) #LYMPH 1.06 10/uL (0.60 - 3.40) #MONO 0.57 10/uL (0.00 - 0.90) #EOS 0.00 10/uL (0.00 - 0.70) #BASO 0.02 10/uL (0.00 - 0.20) #IG 0.04 10/uL (0.00 - 0.10) #NRBC 0.00 10/uL (0.00 - 0.00) MANUAL DIFF NOT INDICATED RBC MORPH NOT INDICATEDCMP: (ANGELY: 04/03/2020 16:45) ( MsgRcvd 04/03/2020 17:36) Final results Test Result Flag Units (Reference) COMPREHENSIVE METABOLIC PANEL COMPREHENSIVE METABOLIC PANEL SODIUM 139 mEq/L (134 - 153) POTASSIUM 3.5 L mEq/L (3.6 - 5.0) CHLORIDE 100 mEq/L (98 - 107) CO2 29 MEQ/L (22 - 30) GLUCOSE 139 H MG/DL (65 - 110) BUN 11 MG/DL (7 - 21) CREATININE 0.5 L MG/DL (0.7 - 1.5) BUN/CREAT 22 (8 - 27) TOTAL PROTEIN 7.7 G/DL (6.3 - 8.2) ALBUMIN 4.9 G/DL (3.9 - 5.0) GLOBULIN 2.8 GM/DL (2.4 - 3.2) A/G RATIO 1.8 (0.8 - 2.0) CALCIUM 10.1 MG/DL (8.4 - 10.2) TOTAL BILI <0.7 MG/DL (0.2 - 1.3) ALKALINE PHOS 74 U/L (38 - 126) SGOT/AST 15 U/L (5 - 40) SGPT/ALT 15 U/L (7 - 56) ANION GAP 10.0 mmol/L (8.0 - 16.0) AGE 24 yrs NON-AA GFR >60 mL/min AFR AMER GFR >60 mL/min Male GFR Interprentation 20-49 yrs >60 mL/min Dngpqm11-53 yrs >56 mL/min Normal 60-69 yrs >49 mL/min Normal 70-79yrs 4 Clinical Report - Physicians/Mid Levels [facility] Emergency Department [address] [place] [address] Phone #: ext- [phone] 04/03/2020 16:19 Patient: NATALIYA BEASLEY Sex: F : 0 1995 Age: 24y >42 mL/min Normal 80 and above >35 mL/min Normal Female GFR Interpretation 20-39 yrs >60 mL/min Normal 40-49 yrs >58 mL/min Normal 50-59 yrs >51 mL/min Normal 60-69 yrs >45 mL/min Normal 70-79 yrs >39 mL/min Normal 80 and above >32 mL/min Normal Lipase: (ANGELY: 04/03/2020 16:45) ( MsgRcvd 04/03/2020 17:33) Final results Test Result Flag Units (Reference) LIPASE 15 U/L (13 - 60) Urinalysis: (ANGELY: 04/03/2020 17:20) ( MsgRcvd 04/03/2020 17:43) Final results Test Result Flag Units (Reference) URINALYSIS URINALYSIS SOURCE R COLOR yellow (NORMAL: Yello CLARITY hazy (NORMAL: Clear SPEC GRAVITY 1.020 (1.001 - 1.030 pH 6 (5 - 9) GLUCOSE NORM (NORMAL: Negat BILIRUBIN NEG (NORMAL: Negat KETONE 50 A (NORMAL: Negat PROTEIN 30 (NORMAL: Negat NITRITE NEG (NORMAL: Negat BLOOD 10 A (NORMAL: Negat LEUK EST NEG (NORMAL: Negat UROBILINOGEN 1 (less than 1.0 MICROSCOPIC See Below WBC 3 - 5 (NORMAL: NONE RBC 1 - 3 (NORMAL: NONE EPITHELIAL MODERATE A (NORMAL: NONE BACTERIA Trace (NORMAL: NONE MUCOUS 2+ A (NORMAL: NONE AMORPH SED 2+ (NORMAL: NONE Lactic Acid: (ANGELY: 04/03/2020 16:45) ( MsgRcvd 04/03/2020 17:23) Final results Test Result Flag Units (Reference) LACTIC ACID 1.6 MMOL/L (0.2 - 2.2) Beta-HCG, Qual Serum: (ANGELY: 04/03/2020 16:45) ( MsgRcvd 04/03/2020 17:27) Final results Test Result Flag Units (Reference) HCG SERUM QUAL NEGATIVE (NORMAL: NEGAT HCG SERUM QL REENTER NEGATIVE (NORMAL: NEGAT { KIT LOT # [id number] ){ KIT EXP DATE 02.20.21 ){ PROCEDURAL CONTROL VALID ) Magnesium: (ANGELY: 04/03/2020 16:45) ( MsgRcvd 04/03/2020 17:33) Final results Test Result Flag Units (Reference) MAGNESIUM 1.8 MG/DL (1.7 - 2.2). 5 Clinical Report - Physicians/Mid Levels [facility] Emergency Department [address] [place] [address] Phone #: ext- [phone] 04/03/2020 16:19 Patient: NATALIYA BEASLEY Sex: F : 1995 Age: 24yPROGRESS AND PROCEDURESCourse of Care: NAD, AOx3, interacting well and appropriately, no use of accessory muscle, able tospeak full sentences, stable, non-toxic looking. Enter room and pt lying peacefully in bed in NAD. Patient stable. Denies any new issues, concerns, or complaints. Pt seen in this ER for same s/s multiple times. Pt deneis any f/u with GI or her PCP when discharged; either from ER or admission. Pt has had significanlty low potassiums that resulted Pt immediatly inquires about admission. Inform will need results prior to anyting and pt exresses she understands and agrees. pending resutls. Reviewed results and noted slighlty decreased potassium, no elevated WBC, but PE demos generalized TTP of abd. Pt has had no appropriatle f/u as outpt. Will image for yuki lacey. pending results. Enter room and pt lying peacefully in bed in NAD. Explain results and request for imaigng and pt expresses she understands and agrees. Pending results. Reviewed results. Due to continued s/s, will consult surgeon. Enter room and patient lying peacefully in bed in NAD. Patient stable. Denies any new issues, concerns, or complaints. Will start abx. Penidng call back. Consulted with surgeon (Dr. Hannno). Sts that he can see pt as outpt. Fully agree based on todays resutls. Pendng completion of abx. Reviewed results. Discussed wiht attending. Pt has been here for approx 4 hrs and has not vomited here. Improved. Enter room and patient lying peacefully in bed in NAD. Patient stable. Denies any new issues, concerns, or complaints. Discussed results with pt. Discussed tx plan with pt. Discussed and counseled on stable condition. Discussed importance of a f/u with PCP. Discussed return to ER criteria. Answered their questions. Indicates and verbalizes that they understand, agree, and will comply with above. Denies any new questions or concerns. Patient has capacity to understand. Discharge decision based on the following: patient's condition is stable; patient's exam is stable; social support is adequate; transportation is available; follow-up is available. Discussed of OTC Motrin and Tylenol to control inflammation and pain management. Informed to follow directions on bottle that are appropriate for age and/or weight. 6 Clinical Report - Physicians/Mid Levels [facility] Emergency Department [address] [place] [address] Phone #: ext- [phone] 04/03/2020 16:19 Patient: NATALIYA BEASLEY Sex: F : 1995 Age: 24y Disposition: Discharged home in good and improved condition. Condition: good and stable.CLINICAL IMPRESSION Acute generalized abdominal pain of unknown cause. Acute cystitis with hematuria.INSTRUCTIONS Take Tylenol (Acetaminophen) or Motrin (Ibuprofen) as needed for fever control. Take medication according to label instructions. Do not work for three days. Drink plenty of fluids. No dietary restrictions. (Discussed of OTC Motrin and Tylenol to control inflammation and pain management. Informed to follow directions on bottle that are appropriate for age and/or weight. I have provided infomration on 2 [facility] surgeons for you to choose whom you would like. I did consult the surgeon at [facility] though and is aware of your conditions.). Warnings: Further evaluation is necessary. GENERAL WARNINGS: Return or contact your physician immediately if your condition worsens or changes unexpectedly, if not improving as expected, or if other problems arise. Your Current Medications: . No home medication. Prescription Medications: Macrobid 100 mg capsule Take 1 capsule twice a day for 7 days -- Dispense 14 capsule. Refills: 0. Substitution permitted. [facility] #83 - [address] [place] [address]. . Zofran 4 mg tablet Take 1 tablet three times a day for 4 days -- Dispense 12 tablet. Refills: 0. Substitution permitted. [facility] #61 - [address] [place] [address]. . Follow-up: Return to the emergency department as needed. Follow up with your healthcare provider in about two days if not better. Call for an appointment. Understanding of the discharge instructions verbalized by patient. 7 Clinical Report - Physicians/Mid Levels [facility] Emergency Department [address] [place] [address] Phone #: ext- [phone] 04/03/2020 16:19 Patient: NATALIYA BEASLEY [facility]#: [id number] Sex: F : 1995 Age: 24y Follow-up with: Shabbir Addison MD, Gastroenterology, [id number], [facility], [address] [place] [address], [address], [place], [address] Follow up. Call for the next available appointment. Reason for referral: evaluation and treatment. Follow-up with: [facility], , , [address] [place] [address], [id number] Follow up. Call for the next available appointment. Reason for referral: evaluation and treatment.(Electronically signed by Imtiaz España P.A.-C 04/03/2020 21:42) Name Value Range Interpretation Code Description Data Michelle rce(s) Supporting Document(s) ID Date Data Source [id number] 04/03/2020 05:43:00 PM EST [facility] Name Value Range Interpretation Code Description Data [facility] rce(s) Supporting Document(s) [facility] COL[facility] yellow NORMAL: Yellow [facility] CLARITY hazy NORMAL: Clear [facility] Specific gravity of Urine by Test strip 1.020 1.001 - 1.030 [facility] pH 6 5 - 9 [facility] Glucose [Mass/volume] in Urine by Test strip NORM NORMAL: Negat [facility] Bilirubin.total [Presence] in Urine by Test strip NEG NORMAL: Negative [facility] Ketones [Presence] in Urine by Test strip 50 NORMAL: Negative [facility] Protein [Mass/volume] in Urine by Test strip 30 NORMAL: Negat judy [facility] Nitrite [Presence] in Urine by Test strip NEG NORMAL: Negative [facility] BLOOD 10 NORMAL: Negative [facility] Leukocyte esterase [Presence] in Urine by Test strip NEG DAYLIN L: Negative [facility] Urobilinogen [Mass/volume] in Urine by Test strip 1 less tito n 1.0 mg/dL [facility] MICROSCOPIC See Below [facility] WBC 3 - 5 NORMAL: NONE SEEN [facility] Erythrocytes [#/volume] in Urine by Test strip 1 - 3 NORMAL: NON E SEEN [facility] EPITHELIAL MODERATE NORMAL: NONE SEEN A [facility] Bacteria [Presence] in Urine sediment by Light microscopy Tr laura NORMAL: NONE SEEN [facility] Mucus [Presence] in Urine sediment by Light microscopy 2+ NOR MAL: NONE SEEN A [facility] Amorphous sediment [Presence] in Urine sediment by Light chelsey roscopy 2+ NORMAL: NONE SEEN [facility] ID Date Data Source [id number] 04/07/2020 09:15:00 PM EST [facility] Name Value Range Interpretation Code Description Data Michelle rce(s) Supporting Document(s) CULTURE URINE [facility] _CULTURE URINE_$$[id number]$$[id number]$$[id number]$$[id number]$$[id number]$$[id number]$$[id number]$$666015$$[id number]$$ 820067$$405577$$030387$$324780$$532250$$335568$$114158$$172403$$422521$$618664$$ 743983$$056735$$908886$$421743$$871137$$215583$$[id number]$$[id number] -- Continued on next page --Patient: RITTER NATALIYA Martinez Order: Page 2Culture: CULTURE URINE Status: Final ==== -- Continued on next page --Patient: RITTER NATALIYA Martinez Order: Page 2Culture: CULTURE URINE Status: Prelim =====$$[id number]$$[id number] DATE/TIME: 04/07/2020 13:06Culture: CULTURE URINE Status: FinalUrine Culture,Comprehensive: P1No growth in 36 - 48 hours. Previous result entered on 04/06/2020 03:16 ET No growth after 18-24 hours.P1 Test performed by: [facility] CLIA #: [id number] [address] [id number] [facility] [address]Medical Director : Abhilash Hilario MD NPI #:Lab Di louis : 04/06/20.0654.XMT.SENT REF 04/07/20.2115.XMT.SENT REF ID Date Data Source [id number] 04/03/2020 05:36:00 PM EST [facility] Name Value Range Interpretation Code Description Data Michelle rce(s) Supporting Document(s) COMPREHENSIVE METABOLIC PANEL [facility] COMPREHENSIVE METABOLIC PANEL Sodium [Moles/volume] in Serum or Plasma 139 mEq/L 134 - 153 [facility] Potassium [Moles/volume] in Serum or Plasma 3.5 mEq/L 3.6 - 5.0 L [facility] Chloride [Moles/volume] in Serum or Plasma 100 mEq/L 98 - 107 [facility] Carbon dioxide, total [Moles/volume] in Serum or Plasma 29 MEQ/L 22 - 30 [facility] Glucose [Mass/volume] in Serum or Plasma 139 MG/DL 65 - 110 H [facility] BUN 11 MG/DL 7 - 21 [facility] Creatinine [Mass/volume] in Serum or Plasma 0.5 MG/DL 0.7 - 1.5 L [facility] BUN/CREAT 22 8 - 27 [facility] Protein [Mass/volume] in Serum or Plasma 7.7 G/DL 6.3 - 8.2 [facility] Albumin [Mass/volume] in Serum or Plasma 4.9 G/DL 3.9 - 5.0 [facility] Globulin [Mass/volume] in Serum by calculation 2.8 GM/DL 2.4 - 3.2 [facility] A/G RATIO 1.8 0.8 - 2.0 [facility] Calcium [Mass/volume] in Serum or Plasma 10.1 MG/DL 8.4 - 10.2 [facility] Bilirubin.total [Mass/volume] in Serum or Plasma <0.7 MG/DL 0.2 - 1.3 [facility] Alkaline phosphatase [Enzymatic activity/volume] in Serum or Plasma 74 U/L 38 - 126 [facility] Aspartate aminotransferase [Enzymatic activity/volume] in Serum or Plasma 15 U/L 5 - 40 [facility] Alanine aminotransferase [Enzymatic activity/volume] in Seru m or Plasma 15 U/L 7 - 56 [facility] Anion gap 3 in Serum or Plasma 10.0 mmol/L 8.0 - 16.0 [facility] AGE 24 yrs [facility] al NON-AA GFR >60 mL/min [facility] ital AFR AMER GFR >60 mL/min [facility] Male GFR In terprentation 20-49 yrs >60 mL/min Normal 50-59 yrs >56 mL/min Normal 60-69 yrs >49 mL/min Normal 70-79yrs >42 mL/min Normal 80 and above >35 mL/min Normal Female GFR Interpretation 20-39 yrs >60 mL/min Normal 40-49 yrs >58 mL/min Normal 50-59 yrs >51 mL/min Normal 60-69 yrs >45 mL/min Normal 70-79 yrs >39 mL/min Normal 80 and above >32 mL/min Normal ID Date Data Source [id number] 04/03/2020 05:33:00 PM [facility] Name Value Range Interpretation Code Description Data Michelle rce(s) Supporting Document(s) Magnesium [Mass/volume] in Serum or Plasma 1.8 MG/DL 1.7 - 2.2 [facility] ID Date Data Source [id number] 04/03/2020 05:33:00 PM [facility] Name Value Range Interpretation Code Description Data Michelle rce(s) Supporting Document(s) Lipase [Enzymatic activity/volume] in Serum or Plasma 15 U/L 13 - 60 [facility] ID Date Data Source [id number] 04/03/2020 05:27:00 PM EST [facility] Name Value Range Interpretation Code Description Data Michelle rce(s) Supporting Document(s) HCG SERUM QUAL NEGATIVE NORMAL: NEGATIVE [facility] HCG SERUM QL REENTER NEGATIVE NORMAL: NEGATIVE [facility] { KIT LOT # [id number] ){ KIT EXP DATE 02.20.21 ){ PROCEDURAL CONTROL VALID ) ID Date Data Source [id number] 04/03/2020 05:23:00 PM EST [facility] Name Value Range Interpretation Code Description Data Michelle rce(s) Supporting Document(s) CBC W/AUTOMATED DIFF [facility] COMPLETE BLOOD COUNT Leukocytes [#/volume] in Blood by Automated count 10.2 10^3/uL 4.2 - 11.0 [facility] Erythrocytes [#/volume] in Blood by Automated count 4.79 10^6/uL 4. 20 - 5.40 [facility] Hemoglobin [Mass/volume] in Blood 11.7 g/dL 12.0 - 16.0 L [facility] Hematocrit [Volume Fraction] of Blood by Automated count 36.9 % 3 7.0 - 47.0 L [facility] Erythrocyte mean corpuscular volume [Entitic volume] by Auto mated count 77.0 fL 81.0 - 101 L [facility] Erythrocyte mean corpuscular hemoglobin [Entitic mass] by Automated count 24.4 pg 27.0 - 34.0 L [facility] Erythrocyte mean corpuscular hemoglobin concentration [Mass/volume] by Automated count 31.7 g/dL 31.0 - 36.0 [facility] Erythrocyte distribution width [Ratio] by Automated count 16.5 % 11.5 - 14.5 H [facility] Platelets [#/volume] in Blood by Automated count 365 10^3/uL 150 - 45 0 [facility] Platelet mean volume [Entitic volume] in Blood by Automated count 11.2 fL 7.4 - 10.4 H [facility] Neutrophils/100 leukocytes in Blood by Automated count 83.4 % 37. 0 - 80.0 H [facility] Lymphocytes/100 leukocytes in Blood by Manual count 10.4 % 25.0 - 40.0 L [facility] Monocytes/100 leukocytes in Blood by Automated count 5.6 % 3.0 - 8.0 [facility] Eosinophils/100 leukocytes in Blood by Automated count 0.0 % 0.0 - 7.0 [facility] Basophils/100 leukocytes in Blood by Automated count 0.2 % 0.0 - 2.5 [facility] %IG 0.4 % 0.0 - 0.0 H [facility] %NRBC 0.0 % 0.0 - 0.0 [facility] Neutrophils [#/volume] in Blood by Automated count 8.50 10^3/uL 2.00 - 6.90 H [facility] Lymphocytes [#/volume] in Blood by Automated count 1.06 10^3/uL 0.60 - 3.40 [facility] Monocytes [#/volume] in Blood by Automated count 0.57 10^3/uL 0.00 - 0.90 [facility] Eosinophils [#/volume] in Blood by Automated count 0.00 10^3/uL 0.00 - 0.70 [facility] Basophils [#/volume] in Blood by Automated count 0.02 10^3/uL 0.00 - 0.20 [facility] #IG 0.04 10^3/uL 0.00 - 0.10 [facility] #NRBC 0.00 10^3/uL 0.00 - 0.00 [facility] MANUAL DIFF NOT INDICATED [facility] RBC MORPH NOT INDICATED [facility] ID Date Data Source [id number] 04/03/2020 05:23:00 PM EST [facility] Name Value Range Interpretation Code Description Data Michelle rce(s) Supporting Document(s) Lactate [Moles/volume] in Serum or Plasma 1.6 MMOL/L 0.2 - 2.2 [facility] ID Date Data Source [id number] 02/17/2020 01:07:00 PM EDT [facility] [address] [place] [address] PHONE: [phone] FAX: [phone] Name .................. : RITTER NATALIYA Martinez Acct Number.................. : [id number] ROOM. ................. : 117-1 MR Number ................... : [id number] Stay type ............. : O/P Discharge Date......... ... : Admit Date ......... : 02/16/20 Admit Phys .................... : ANTON-FALAN Date of ....... : 1995 Family Phys ................... : COLLAZO Sendmebox Phone .................. : [phone] Age ................................ : 24 Film# .................. .:[id number] Sex ................................. : F Unsigned transcriptions are preliminary reports and do not represent a medical or legal document CT ABD & PELVIS W/ IV ONLY [id number] COMPLETE:02/16/20 21:34 [id number] (REASON FOR ABDOMEN: ABDOMINAL PAIN CT OF THE ABDOMEN AND PELVIS WITH CONTRAST: INDICATION: Abdominal pain. FINDINGS: The chest space is clear. There is normal contrast-enhanced CT appearance of the liver, spleen, pancreas, adrenal glands and kidneys. No gallbladder wall thickening or biliary duct dilatation. The visualized bowel is normal in caliber. No bowel wall thickening. The appendix is not definitively visualized, but there are no right lower quadrant inflammatory changes. The bladder is minimally distended which limits evaluation. The pelvic organs appear normal. No acute osseous abnormality. No lymphadenopathy. IMPRESSION: No acute intra- abdominal process. While performing the above CT examination, radiation dose reduction was accomplished utilizing automated exposure control, adjusting of the mA and kV based on the patient's body size and/or the use of imperative reconstructive techniques. CT dose: 507.0 mGycm Page 1 of 2 [facility] [address] [facility] [place] [address] PHONE: [phone] FAX: [phone] Name .................. : RITTER NATALIYA Martinez Acct Number.................. : [id number] ROOM. ................. : 117-1 MR Number ................... : [id number] Stay type ............. : O/P Discharge Date......... ... : Admit Date ......... : 02/16/20 Admit Phys .................... : ANTON-JOCELYNN Date of ....... : 1995 Family Phys ................... : COLLAZO Send[employer] Phone .................. : [phone] Age ................................ : 24 Film# .................. .:[id number] Sex ................................. : F Unsigned transcriptions are preliminary reports and do not represent a medical or legal document CT ABD & PELVIS W/ IV ONLY [id number] COMPLETE:02/16/20 21:34 [id number] (REASON FOR ABDOMEN: ABDOMINAL PAIN Contrast agent in mL: 75 Isovue 370 Method of administration: Intravenous Electronically Reviewed and Signed By Genaro Lozoya M.D. , 02/17/20 13:07, COY Transcribe Initials: FAHAD , Transcribe Date: 02/17/20 02:00, Dictation Date: Copy for: DAVID ALCALA Niki via fax Copy for: EMERGENCY DEPT via modem Copy for: 710 MED REC Page 2 of 2 Name Value Range Interpretation Code Description Data Michelle rce(s) Supporting Document(s) ID Date Data Source [id number] 02/17/2020 07:03:00 AM EDT [facility] Name Value Range Interpretation Code Description Data Michelle rce(s) Supporting Document(s) Magnesium [Mass/volume] in Serum or Plasma 2.5 MG/DL 1.7 - 2.2 H [facility] ID Date Data Source [id number] 02/17/2020 07:03:00 AM EDT [facility] Name Value Range Interpretation Code Description Data Michelle rce(s) Supporting Document(s) COMPREHENSIVE METABOLIC PANEL [facility] COMPREHENSIVE METABOLIC PANEL Sodium [Moles/volume] in Serum or Plasma 146 mEq/L 134 - 153 [facility] Potassium [Moles/volume] in Serum or Plasma 3.4 mEq/L 3.6 - 5.0 L [facility] Chloride [Moles/volume] in Serum or Plasma 107 mEq/L 98 - 107 [facility] Carbon dioxide, total [Moles/volume] in Serum or Plasma 29 MEQ/L 22 - 30 [facility] Glucose [Mass/volume] in Serum or Plasma 89 MG/DL 65 - 110 [facility] BUN 12 MG/DL 7 - 21 [facility] Creatinine [Mass/volume] in Serum or Plasma 0.6 MG/DL 0.7 - 1.5 L [facility] BUN/CREAT 20 8 - 27 [facility] Protein [Mass/volume] in Serum or Plasma 6.1 G/DL 6.3 - 8.2 L [facility] Albumin [Mass/volume] in Serum or Plasma 4.1 G/DL 3.9 - 5.0 [facility] Globulin [Mass/volume] in Serum by calculation 2.0 GM/DL 2.4 - 3.2 L [facility] A/G RATIO 2.1 0.8 - 2.0 H [facility] Calcium [Mass/volume] in Serum or Plasma 9.0 MG/DL 8.4 - 10.2 [facility] Bilirubin.total [Mass/volume] in Serum or Plasma <0.7 MG/DL 0.2 - 1.3 [facility] Alkaline phosphatase [Enzymatic activity/volume] in Serum or Plasma 52 U/L 38 - 126 [facility] Aspartate aminotransferase [Enzymatic activity/volume] in Serum or Plasma 21 U/L 5 - 40 [facility] Alanine aminotransferase [Enzymatic activity/volume] in Seru m or Plasma 44 U/L 7 - 56 [facility] Anion gap 3 in Serum or Plasma 10.0 mmol/L 8.0 - 16.0 [facility] AGE 24 yrs [facility] al NON-AA GFR >60 mL/min [facility] ital AFR AMER GFR >60 mL/min [facility] Male GFR In terprentation 20-49 yrs >60 mL/min Normal 50-59 yrs >56 mL/min Normal 60-69 yrs >49 mL/min Normal 70-79yrs >42 mL/min Normal 80 and above >35 mL/min Normal Female GFR Interpretation 20-39 yrs >60 mL/min Normal 40-49 yrs >58 mL/min Normal 50-59 yrs >51 mL/min Normal 60-69 yrs >45 mL/min Normal 70-79 yrs >39 mL/min Normal 80 and above >32 mL/min Normal ID Date Data Source [id number] 02/17/2020 07:02:00 AM EDT [facility] Name Value Range Interpretation Code Description Data Michelle rce(s) Supporting Document(s) CBC W/AUTOMATED DIFF [facility] COMPLETE BLOOD COUNT Leukocytes [#/volume] in Blood by Automated count 8.4 10^3/uL 4.2 - 1 1.0 [facility] Erythrocytes [#/volume] in Blood by Automated count 3.93 10^6/uL 4. 20 - 5.40 L [facility] Hemoglobin [Mass/volume] in Blood 10.7 g/dL 12.0 - 16.0 L [facility] Hematocrit [Volume Fraction] of Blood by Automated count 33.8 % 3 7.0 - 47.0 L [facility] Erythrocyte mean corpuscular volume [Entitic volume] by Auto mated count 86.0 fL 81.0 - 101 [facility] Erythrocyte mean corpuscular hemoglobin [Entitic mass] by Automated count 27.2 pg 27.0 - 34.0 [facility] Erythrocyte mean corpuscular hemoglobin concentration [Mass/volume] by Automated count 31.7 g/dL 31.0 - 36.0 [facility] Erythrocyte distribution width [Ratio] by Automated count 14.2 % 11.5 - 14.5 [facility] Platelets [#/volume] in Blood by Automated count 267 10^3/uL 150 - 45 0 [facility] Platelet mean volume [Entitic volume] in Blood by Automated count 10.9 fL 7.4 - 10.4 H [facility] Neutrophils/100 leukocytes in Blood by Automated count 64.9 % 37. 0 - 80.0 [facility] Lymphocytes/100 leukocytes in Blood by Manual count 26.3 % 25.0 - 40.0 [facility] Monocytes/100 leukocytes in Blood by Automated count 7.8 % 3.0 - 8.0 [facility] Eosinophils/100 leukocytes in Blood by Automated count 0.2 % 0.0 - 7.0 [facility] Basophils/100 leukocytes in Blood by Automated count 0.4 % 0.0 - 2.5 [facility] %IG 0.4 % 0.0 - 0.0 [facility] %NRBC 0.0 % 0.0 - 0.0 [facility] al Neutrophils [#/volume] in Blood by Automated count 5.42 10^3/uL 2.00 - 6.90 [facility] Lymphocytes [#/volume] in Blood by Automated count 2.20 10^3/uL 0.60 - 3.40 [facility] Monocytes [#/volume] in Blood by Automated count 0.65 10^3/uL 0.00 - 0.90 [facility] Eosinophils [#/volume] in Blood by Automated count 0.02 10^3/uL 0.00 - 0.70 [facility] Basophils [#/volume] in Blood by Automated count 0.03 10^3/uL 0.00 - 0.20 [facility] #IG 0.03 10^3/uL 0.00 - 0.10 [facility] #NRBC 0.00 10^3/uL 0.00 - 0.00 [facility] MANUAL DIFF NOT INDICATED [facility] RBC MORPH NOT INDICATED [facility] spital ID Date Data Source [id number] 02/16/2020 04:43:00 PM EDT [facility] 1 OrderSheet [facility] Emergency Department [address] [place] [address] Phone #: ext- [phone] 02/16/2020 16:35 Patient: NATALIYA BEASLEY Sex: F : 1995 Age: 24yWEIGHT:61.2 kg HEIGHT:62 inches BMI:24.7ALLERGIES: No Known Drug AllergyCHIEF COMPLAINT: abdominal pain, vomiting, nausea, constipationDIAGNOSIS: ProblemLAB ORDERSOrder Description Priority Entered Acknowledged InitialedCBC w Diff STAT 17:02/16/2020 17:17 [facility] TechJc; [id number] STAT 17:05 02/16/2020 17:17 [facility] TechJc; [id number] STAT 17:02/16/2020 17:17 [facility] TechJc; [id number] (Clean STAT 17:05 02/16/2020 Ack'd: 17:26Catch) Nik [facility] TechEDUARDO; Jc KC [id number] STAT 17:05 02/16/2020 17:17 [facility] Tech, Jc ER PA; [id number] STAT 17:05 02/16/2020 17:17 [facility], Jc ER PA; [id number] (Clean STAT 20:52 02/16/2020 Ack'd: 21:11Catch) Mariano Starks R.N.;Beta- HCG, Qual STAT 20:52 02/16/2020 Ack'd: 21:12Urine Mariano Starks R.N. PA;DIAGNOSTIC STUDY ORDERSOrder Description Priority Entered Acknowledged InitialedMEDICATION/IV/DRIP/FLUID ORDERSOrder Description Priority Entered Acknowledged Initialed 2 OrderSheet [facility] Emergency Department [address] [place] [address] Phone #: ext- [phone] 02/16/2020 16:35 Patient: NATALIYA BEASLEY Sex: F : 1995 Age: 24yNS IV 1000 mL 17:05 02/16/2020 17:41 Jhaveri, TheaBolus: : Bolus 1000 Nik Swatsworth R.N.mL (X1) PA;Zofran IVP 8 mg 17:05 02/16/2020 17:42 Jhaveri, Maria De Jesus Nik Swatsworth R.N. PA;KCl IVPB 10 18:19 02/16/2020 20:01 Jhaveri, Theameq/100mL (NOW Nik Swatsworth R.N.x1) PA;KCl Liquid PO 40 18:19 02/16/2020 18:50 Jhaveri, Theameq Nik Swatsworth R.N. PA;Magnesium Sulfate 18:19 02/16/2020 18:49 Shakila, Thea2 g IVPB X1 dose: 2 Nik Swatsworth R.N.gm (HIGH ALERT PA;MEDICATION, X1)Protonix IVPB 40 20:55 02/16/2020 21:17 Jhaveri, Theamg with Dextrose Nik Swatsworth R.N.100 ml spike bag PA;(D5W)Zofran IVP 8 mg 20:55 02/16/2020 21:17 Maria De Jesus Jhaveri R.N.;GENERAL ORDERSOrder Description Priority Entered Acknowledged InitialedNPO 17:05 02/16/2020 17:06 Maria De Jesus Jhaveri R.N.;Saline Lock 17:05 02/16/2020 17:41 Maria De Jesus Jhaveri R.N.;[Electronically signed by Nik Paul (21:08 02/16/2020)][Electronically signed by Maria De Jesus Jhaveri R.N. (22:22 02/16/2020)][E lectronically locked by Maria De Jesus Jhaveri R.N. (:02/16/2020)] Name Value Range Interpretation Code Description Data Michelle rce(s) Supporting Document(s) ID Date Data Source [id number] 02/16/2020 04:43:00 PM EDT [facility] 1 Medication Reconciliation Report [facility] Emergency Department [address] [place] [address] Phone #: ext- [phone] 02/16/2020 16:35 Patient: NATALIYA BEASLEY Sex: F : 1995 Age: 24yWeight: 61.2 kgHeight/Length: 62 in.BMI: 24.7ALLERGIES: No Known Drug AllergyThe patient's Home Medications are listed below:NONE.The source(s) of the original Home Medication information:patientThe following Medications were given to the patient in the Emergency Department:IV NS w/ bolus IV Fluids bolus 0, then 1000 mL/hr, administered: 02/16/2020 5:41:00 PMZofran [IVP] IVP 8 mg, administered: 02/16/2020 5:42:00 PMMagnesium Sulfate [IVPB] IVPB bolus 0, then 2 gm 2 gm/hr, administered: 02/16/2020 6:49:00 PMKCL LIQUID PO PO 40 meq, administered: 02/16/2020 6:50:00 PMKCL [IVPB] IVPB bolus 0, then 10 meq 100 mL/hr, administered: 02/16/2020 7:56:00 PMProtonix [IVPB] IVPB bolus 0, then 40 mg 8 mg/hr, administered: 02/16/2020 9:12:00 PMZofran [IVP] IVP 8 mg, administered: 02/16/2020 9:12:00 PMThe following Medications were prescribed to the patient:None. Name Value Range Interpretation Code Description Data Michelle rce(s) Supporting Document(s) ID Date Data Source [id number] 02/16/2020 04:43:00 PM EDT [facility] 1 Medication Administration Record [facility] Emergency Department [address] [place] [address] Phone #: ext- [phone] 02/16/2020 16:35 Patient: NATALIYA BEASLEY Sex: F : 1995 Age: 24yWeight: 61.2 kgHeight/Length: 62 inBMI: 24.7ALLERGIES: No Known Drug Allergy Date/Time Medication Administered Medication OrderedStart IV NS W/ BOLUS NS IV 1000 mL Bolus: : Bolus [id number] 02/16/2020 Dose: IV Fluids mL (X1)Maria De Jesus Jhaveri, R.NSveta Rate: 1000 mL/hr over 1 hour(s)---- Dispensed: 1000 mL bagStop Site: #1 right :49 02/16/2020Maria De Jesus Jhaveri R.N.Given ZOFRAN [IVP] (ONDANSETRON HCL) Zofran IVP 8 mg17:42 02/16/2020 Dose: 8 mg IVMaria De Jesus Rodriguez, R.N. Site: #1 right forearmStart KCL [IVPB] KCl IVPB 10 meq/100mL (NOW x1)19:56 02/16/2020 Dose: 10 meq IVPBShakila Maria De Jesus, R.N. Rate: 100 mL/hr over 1 hour(s)---- Dispensed: 100 mL bagStop Site: #1 right asqcuaw58:56 02/16/2020Shakila Maria De Jesus, R.N.Given KCL LIQUID PO KCl Liquid PO 40 meq18:50 02/16/2020 Dose: 40 meq Syrup/Liquid POHale Maria De Jesus, R.N.Start MAGNESIUM SULFATE [IVPB] Magnesium Sulfate 2 g IVPB X118:49 02/16/2020 Dose: 2 gm IVPB dose: 2 gm (HIGH ALERTHale, Maria De Jesus, R.N. Rate: 2 gm/hr over 1 hour(s) MEDICATION, X1)---- Dispensed: 50 mL bagStop Site: #1 right pzmirzp42:51 02/16/2020Shakila Maria De Jesus, R.N.Start PROTONIX [IVPB] (PANTOPRAZOLE Protonix IVPB 40 mg with21:12 02/16/2020 SODIUM) Dextrose 100 ml spike bag (D5W)Maria De Jesus Jhaveri, R.N. Dose: 40 mg IVPB---- Rate: 8 mg/hr over 1 hour(s)Stop Dispensed: 100 mL bag21:45 02/16/2020 Site: #1 right forearmMaria De Jesus Jhaveri, R.N.Given ZOFRAN [IVP] (ONDANSETRON HCL) Zofran IVP 8 mg21:12 02/16/2020 Dose: 8 mg IVPHaljuan Maria De Jesus, R.N. Site: #1 right forearm Name Value Range Interpretation Code Description Data Michelle rce(s) Supporting Document(s) ID Date Data Source [id number] 02/16/2020 04:43:00 PM EDT [facility] 1 General Instructions [facility] Emergency Department [address] [place] [address] Phone #: ext- [phone] 02/16/2020 16:35 Patient: NATALIYA BEASLEY Sex: F : 1995 Age: 24yHypokalemia; hypomagnesemia.(Electronically signed by EDUARDO Moses 02/16/2020 21:08) Name Value Range Interpretation Code Description Data Michelle rce(s) Supporting Document(s) ID Date Data Source [id number] 02/16/2020 04:43:00 PM EDT [facility] 1 Clinical Report - Nurses [facility] Emergency Department [address] [place] [address] Phone #: ext- [phone] 02/16/2020 16:35 Patient: NATALIYA BEASLEY Sex: F : 1995 Age: 24yTRIAGEArrived by private vehicle. ( pt arrived to ED with her mother. pt reports she woke up Thursday and didnt"feel well" pt reports her generalized upset stomach has continued and gotten worse and she cant keepanything down. Pt reports she has felt shaky. Pt started to shake after making this statement to justowriter operator. ptmucous membranes do appear dry.).Triage time: 16:41 02/16/2020. Acuity: LEVEL 3.Chief Complaint: ABDOMINAL PAIN.Alert.Onset. (four days ago). ( pt states "i am a ten, i don't feel well" for her pain scale.). The patient has hadnausea and vomiting. 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 --16:46 02/16/20 Natividad Felix R.N.16:41 02/16/20. BP: 138/101. HR: 73. RR: 17. O2 saturation: 100%. Temp: 97.2 F. Pain level now 02/24.--16:46 02/16/20 Lessley, Natividad, R.N.Weight: 61.2 kg. Height/Length: 62 inches. BMI: 24.7. --16:39 02/16/20 Natividad Felix R.N.MedicationsNone. --16:43 02/16/20 Natividad Felix R.N.AllergiesNo Known Drug Allergy. --16:43 02/16/20 Natividad Felix R.N.Medication/allergy information source: the patient. --16:46 02/16/20 Natividad Felix R.N.ADDITIONAL SURGERIES:Tubes in ears. --16:44 02/16/20 Natividad Felix R.N.HistoryPAST MEDICAL HX: Last normal menstrual period- 1 weeks ago.SOCIAL HX: Never smoker. Occasional alcohol use. History of drug use: marijuana. (yesterday). Norecent travel. No known contact with a sick individual. The patient was offered HIV testing but declinedand hepatitis C testing but declined. The patient has not traveled outside the [place]Infectious disease exposure: No infectious disease exposure.SELF HARM ASSESSMENT: Self harm assessment was performed. The patient answered "no" to thequestion(s) "Have you recently felt down, depressed, or hopeless?", "Do you have thoughts of harming or 2 Clinical Report - Nurses [facility] Emergency Department [address] [place] [address] Phone #: ext- [phone] 02/16/2020 16:35 Patient: NATALIYA BEASLEY Sex: F : 1995 Age: 24y killing yourself?", "Do you have a plan for harming or killing yourself?", "Have you recently had thoughts about harming or killing others?", "Do you have any dangerous items in your possession?", "Have you noticed less interest or pleasure in doing things?", "Are you here because you tried to hurt yourself?" and "Have you ever tried to hurt yourself before today?". ABUSE ASSESSMENT: Abuse assessment. No suspicion of abuse. No report of abuse. NUTRITIONAL RISK ASSESSMENT: The nutritional risk assessment revealed no deficiencies. FUNCTIONAL ASSESSMENT: Functional assessment: no impairments noted. LEARNING NEEDS ASSESS MENT: The learning needs assessment revealed no barriers. FALL RISK ASSESSMENT: Fall risk assessment completed per protocol. SKIN INTEGRITY ASSESSMENT: Skin integrity risk assessment completed. No skin integrity risk identified. --16:46 02/16/20 Natividad Felix R.N.NURSING PROGRESS NOTESThe plan of care for this patient has been created. Patient gowned. Head of bed elevated.Reassurance given. Bed placed in lowest position. Brakes of bed on. Patient ready for evaluation.--16:47 02/16/20 Natividad Felix R.N. 17:35 02/16/2020 Site #1 started via IV in the right forearm with an 20g angiocath, with aseptic technique and good blood return; one attempt. Saline lock flushed with 10 mL saline. --17:39 02/16/20 Mandy Alvarez R.N. 17:41 02/16/2020 Started bag #1 1000 mL IV Fluids IV NS w/ bolus; at 1000 mL/hr over 1 hour(s) via site #1 via IV pump. Allergies verified and confirmed 5 rights. IV patency established. IV site checked: no pain, redness, or swelling. IV flushed thoroughly pre- and post-medication administration. Information reviewed with patient including reason for taking this medication and precautions. Verbalizes understanding. --17:41 02/16/20 Maria De Jesus Jhaveri R.N. 17:42 02/16/2020 Zofran (Ondansetron HCl) IVP 8 mg given over 2 minute(s) via site #1. Allergies verified and confirmed 5 rights. IV patency established. IV site checked: no pain, redness, or swelling. IV flushed thoroughly pre- and post-medication administration. IVP given by RN. Information reviewed with patient including reason for taking this medication, signs of allergic reaction and precautions. Verbalizes understanding. --17:42 02/16/20 Maria De Jesus Jhaveri R.N. Critical value relayed by Qi (18:03 02/16/2020). Critical value received by Lambert. K: 2.6. Critical value read back. Verified patient ID. ED physician notifed of critical value. --18:04 02/16/20 Natividad Felix R.N. Reassurance given. Call light placed in reach. Bed placed in lowest position. Brakes of bed on. ( Pt 3 Clinical Report - Nurses [facility] Emergency Department [address] [place] [address] Phone #: ext- [phone] 02/16/2020 16:35 Patient: NATALIYA BEASLEY Sex: F : 1995 Age: 24yresting, NAD, states nausea now improved. No active vomiting. Will continue to monitor.). --18:13 02/16/20Maria De Jesus Jhaveri R.N.18:49 02/16/2020 Started 2 gm of Magnesium Sulfate IVPB in bag #1 50 mL; at 2 gm/hr over 1 hour(s) viasite #1. via IV pump. Allergies verified and confirmed 5 rights. IV patency established. IV site checked: nopain, redness, or swelling. IV flushed thoroughly pre- and post-medication administration. Informationreviewed with patient including reason for taking this medication and precautions. Verbalizesunderstanding. --18:49 02/16/20 Maria De Jesus Jhaveri R.N.18:49 02/16/2020 IV Fluids IV NS w/ bolus via IV site #1 Discontinued: bag #1 completed. Total amountinfused: 1000 mL. IV patency established. IV site checked: no pain, redness, or swelling. IV flushedthoroughly. --18:49 02/16/20 Maria De Jesus Jhaveri R.N.18:50 02/16/2020 KCL LIQUID PO PO Syrup/Liquid 40 meq given. Allergies verified and confirmed 5rights. Information reviewed with patient including reason for taking this medication and precautions.Verbalizes understanding. --18:50 02/16/20 Maria De Jesus Jhaveri R.N.18:45 02/16/20. BP: 124/84. MAP: 97. HR: 68. RR: 18. O2 saturation: 99%. --19:13 02/16/20 Maria De Jesus Jhaveri R.N.19:51 02/16/2020 Magnesium Sulfate IVPB via IV site #1 Discontinued: bag #1 completed. Total amountinfused: 50 mL. IV patency established. IV site checked: no pain, redness, or swelling. IV flushedthoroughly. --20:01 02/16/20 Maria De Jesus Jhaveri R.N.19:56 02/16/2020 Started 10 meq of KCL IVPB in bag #1 100 mL; at 100 mL/hr over 1 hour(s) via site #1.via IV pump. Allergies verified and confirmed 5 rights. IV patency established. IV site checked: no pain,redness, or swelling. IV flushed thoroughly pre- and post- medication administration. Information reviewedwith patient including reason for taking this medication and precautions. Verbalizes understanding.--20:01 02/16/20 Maria De Jesus Jhaveri R.N.20:56 02/16/2020 KCL IVPB via IV site #1 Discontinued: bag #1 completed. Total amount infused: 100 mL.IV patency established. IV site checked: no pain, redness, or swelling. IV flushed thoroughly. --22: Maria De Jesus Jhaveri R.N.21:12 02/16/2020 Started 40 mg of Protonix (Pantoprazole Sodium) IVPB in bag #1 100 mL; at 8 mg/hrover 1 hour(s) via site #1. via IV pump. Allergies verified and confirmed 5 rights. IV patency established. IVsite checked: no pain, redness, or swelling. IV flushed thoroughly pre- and post- medication administration.Information reviewed with patient including reason for taking this medication, signs of allergic reaction andprecautions. Verbalizes understanding. --21:17 02/16/20 Maria De Jesus Jhaveri R.N.21:12 02/16/2020 Zofran (Ondansetron HCl) IVP 8 mg given over 2 minute(s) via site #1. Allergies verifiedand confirmed 5 rights. IV patency established. IV site checked: no pain, redness, or swelling. IV flushedthoroughly pre- and post-medication administration. IVP given by RN. Information reviewed with patientincluding reason for taking this medication, signs of allergic reaction and precautions. Verbalizes 4 Clinical Report - Nurses [facility] Emergency Department [address] [place] [address] Phone #: ext- [phone] 02/16/2020 16:35 Patient: NATALIYA BEASLEY Sex: F : 1995 Age: 24y understanding. --21:17 02/16/20 Maria De Jesus Jhaveri R.N. 21:21 02/16/20. Patient transported to CT by wheelchair with mask and veterinary laboratory technician. --21:26 02/16/20 Maria De Jesus Jhaveri R.N. Patient returned from CT by wheelchair with mask and veterinary laboratory technician. --21:34 02/16/20 Maria De Jesus Jhaveri R.N. 21:00 02/16/20. BP: 121/80. MAP: 93. HR: 74. RR: 16. O2 saturation: 99%. --21:50 02/16/20 Maria De Jesus Jhaveri R.N. The patient reports no complaints and she is calm and resting quietly. Care transferred and report given (Bambi MCCORMACK 2200). --22:00 02/16/20 Maria De Jesus Jhaveri R.N. 21:45 02/16/2020 Protonix IVPB via IV site #1 Discontinued: bag #1 completed. Total amount infused: 100 mL. IV patency established. IV site checked: no pain, redness, or swelling. IV flushed thoroughly. --22:19 02/16/20 Maria De Jesus Jhaveri R.N.DISPOSITION / DISCHARGE 22:11 02/16/20. Disposition: observation in the Acute Inpatient Unit. Transported via stretcher by nurse with monitor and mask. Patient's personal items include, personal items, shirt; items were placed in belongings bag and transported with the patient. --22:18 02/16/20 Maria De Jesus Jhaveri R.N. 22:11 02/16/20. BP: 121/80. MAP: 93. HR: 74. RR: 16. O2 saturation: 99%. Temp: deferred. Pain level now: 07/25. --22:18 02/16/20 Maria De Jesus Jhaveri R.N. Departure time: 22:11 02/16/2020. --22:22 02/16/20 Maria De Jesus Jhaveri R.N.Locked/Released at 02/16/2020 22:22 by Maria De Jesus Jhaveri R.N. Name Value Range Interpretation Code Description Data Michelle rce(s) Supporting Document(s) ID Date Data Source [id number] 02/16/2020 04:43:00 PM EDT [facility] 1 Clinical Report - Physicians/Mid Levels [facility] Emergency Department [address] [place] [address] Phone #: ext- [phone] 02/16/2020 16:35 Patient: NATALIYA BEASLEY Sex: F : 1995 Age: 24y Time Seen: 17:02 02/16/2020. Arrived- By private vehicle. Historian- patient.HISTORY OF PRESENT ILLNESS Chief Complaint: ABDOMINAL PAIN and VOMITING, CONSTIPATION and NAUSEA. This started 3 days ago; pt arrived to ED with her mother. pt reports she woke up Thursday and didnt "feel well" pt reports her generalized upset stomach has continued and gotten worse and she cant keep anything down. Pt reports she has felt shaky. Pt started to shake after making this statement to justowriter operator. pt mucous membranes do appear dry and is still present. It was abrupt in onset and has been constant. It is described as "pain" and it is described as generalized in location. At its maximum, severity described as severe. When seen in the E.D., severity described as severe. The patient has had nausea, loss of appetite and vomiting. No diarrhea. Similar symptoms previously. Patient has had similar symptoms several times. Recent medical care: The patient was seen recently at this facility in a clinic.REVIEW OF SYSTEMSLast normal menstrual period- 2 weeks ago. She has had constipation but not had weight loss. No blackstools, hematemesis, difficulty with urination, pain with urination or urinary frequency. No missed periods,abnormal bleeding, bloody stools, irregular periods or fever. No headache, sore throat, blurred vision,chest pain or difficulty breathing. No cough, joint pain, skin rash, chills or back pain.PAST HISTORYAdditional Surgeries:Tubes in ears. Medications: None. Allergies: No Known Drug Allergy.SOCIAL HISTORYNever smoker. Heavy alcohol use. History of occasional drug use: marijuana.PHYSICAL EXAMVital Signs: 02/16/2020 16:41 BP: 138/101. MAP: 113. HR: 73. RR: 17. O2 saturation: 100%. Temp: 97.2F. Have been reviewed as abnormal. Hypertensive. Oxygen saturation normal.Appearance: Alert. Oriented X3. No acute distress.Eyes: Pupils equal, rou nd and reactive to light. Eyes normal inspection.ENT: Ears normal. Nose normal. Pharynx normal. 2 Clinical Report - Physicians/Mid Levels [facility] Emergency Department [address] [place] [address] Phone #: ext- [phone] 02/16/2020 16:35 Patient: NATALIYA BEASLEY Sex: F : 1995 Age: 24y Neck: Normal inspection. Neck supple. CVS: Normal heart rate. Heart sounds normal. Respiratory: No respiratory distress. Breath sounds normal. Abdomen: Soft. Mild tenderness diffusely. Bowel sounds normal. No organomegaly. No mass. Back: No CVA tenderness. Skin: Skin warm and dry. Normal skin color. No rash. Normal skin turgor. Extremities: Extremities exhibit normal ROM. No lower extremity edema. Neuro: Oriented X 3.LABS, X-RAYS, AND EKGLaboratory Tests: Laboratory tests have been ordered, with results reviewed and considered in themedical decision making process. CBC w Diff: (ANGELY: 02/16/2020 17:22) ( MsgRcvd 02/16/2020 17:39) Final results Test Result Flag Units (Reference) CBC W/AUTOMATED DIFF COMPLETE BLOOD COUNT WBC 10.4 10/uL (4.2 - 11.0) RBC 4.60 10/uL (4.20 - 5.40) HEMOGLOBIN 12.6 g/dL (12.0 - 16.0) HEMATOCRIT 37.9 % (37.0 - 47.0) MCV 82.4 fL (81.0 - 101) MCH 27.4 pg (27.0 - 34.0) MCHC 33.2 g/dL (31.0 - 36.0) RDW 13.8 % (11.5 - 14.5) PLATELETS 360 10/uL (150 - 450) MPV 10.7 H fL (7.4 - 10.4) NEUT 77.0 % (37.0 - 80.0) LYMPH 14.3 L % (25.0 - 40.0) MONO 8.0 % (3.0 - 8.0) EOS 0.0 % (0.0 - 7.0) BASO 0.2 % (0.0 - 2.5) %IG 0.5 H % (0.0 - 0.0) %NRBC 0.0 % (0.0 - 0.0) #NEUT 7.98 H 10/uL (2.00 - 6.90) #LYMPH 1.48 10/uL (0.60 - 3.40) #MONO 0.83 10/uL (0.00 - 0.90) #EOS 0.00 10/uL (0.00 - 0.70) #BASO 0.02 10/uL (0.00 - 0.20) #IG 0.05 10/uL (0.00 - 0.10) #NRBC 0.00 10/uL (0.00 - 0.00) MANUAL DIFF NOT INDICATED RBC MORPH NOT INDICATED CMP: (AGNELY: 02/16/2020 17:22) ( MsgRcvd 02/16/2020 18:03) Final results Test Result Flag Units (Reference) COMPREHENSIVE METABOLIC PANEL COMPREHENSIVE METABOLIC PANEL SODIUM 141 mEq/L (134 - 153) POTASSIUM 2.6 LL mEq/L (3.6 - 5.0) CALL/ READ BACK BEN IN ER BY: CD DATE/TIME 02.16.201801 CHLORIDE 95 L mEq/L (98 - 107) 3 Clinical Report - Physicians/Mid Levels [facility] Emergency Department [address] [place] [address] Phone #: ext- [phone] 02/16/2020 16:35 Patient: NATALIYA BEASLEY Sex: F : 1995 Age: 24y CO2 28 MEQ/L (22 - 30) GLUCOSE 108 MG/DL (65 - 110) BUN 17 MG/DL (7 - 21) CREATININE 0.6 L MG/DL (0.7 - 1.5) BUN/CREAT 28 H (8 - 27) TOTAL PROTEIN 8.3 H G/DL (6.3 - 8.2) ALBUMIN 5.3 H G/DL (3.9 - 5.0) GLOBULIN 3.0 GM/DL (2.4 - 3.2) A/G RATIO 1.8 (0.8 - 2.0) CALCIUM 10.3 H MG/DL (8.4 - 10.2) TOTAL BILI 0.9 MG/DL (0.2 - 1.3) ALKALINE PHOS 71 U/L (38 - 126) SGOT/AST 36 U/L (5 - 40) SGPT/ALT 63 H U/L (7 - 56) ANION GAP 18.0 H mmol/L (8.0 - 16.0) AGE 24 yrs NON-AA GFR >60 mL/min AFR AMER GFR >60 mL/min Male GFR Interprentation 20-49 yrs >60 mL/min Normal 50-59 yrs >56 mL/min Normal 60- 69 yrs >49 mL/min Normal 70-79yrs >42 mL/min Normal 80 and above >35 mL/min Normal Female GFR Interpretation 20-39 yrs >60 mL/min Normal 40-49 yrs >58 mL/min Normal 50-59 yrs >51 mL/min Normal 60-69 yrs >45 mL/min Normal 70-79 yrs >39 mL/min Normal 80 and above >32 mL/min Normal Lipase: (ANGELY: 02/16/2020 17:22) ( [facility] 02/16/2020 18:04) Final results Test Result Flag Units (Reference) LIPASE 15 U/L (13 - 60) Magnesium: (ANGELY: 02/16/2020 17:22) ( [facility] 02/16/2020 18:04) Final results Test Result Flag Units (Reference) MAGNESIUM 1.6 L MG/DL (1.7 - 2.2) ETOH: (ANGELY: 02/16/2020 17:22) ( [facility] 02/16/2020 18:04) Final results Test Result Flag Units (Reference) ALCOHOL <10.0 MG/DL ALCOHOL % 0.00 % (0.00 - 0.01) *FOR MEDICAL PURPOSES ONLY*.PROGRESS AND PROCEDURESCourse of Care: 18:37 Feb. Evaluation after observation. (Discussed mag and potassium levelswith Sarah CASIANO RADIO ENGINEER and she will obs pt. Pt is agreeable with staying.). Critical care performed (30 minutes). Time is exclusive of separately billable procedures. Time includes: direct patient care, patient reassessment, coordination of patient care, interpretation of data (laboratory data and pulse oximetry), review of patient's medical records, medical consultation, family consultation regarding treatment decisions and documentation of patient care. Patient and mother counseled in person regarding the patient's stable condition, test results, diagnosis and 4 Clinical Report - Physicians/Mid Levels [facility] Emergency Department [address] [place] [address] Phone #: ext- [phone] 02/16/2020 16:35 Patient: NATALIYA BEASLEY Sex: F : 1995 Age: 24y need for admission. Patient and mother agrees with plan of care. 18:38 Feb 16 2020. Disposition: Observation in the Acute Inpatient Unit, Monitored. 18:38 Feb 16 2020 Sarah CASIANO RADIO ENGINEER. UTI (catheter associated) was not present prior to being placed in observation. Pressure ulcer was not present prior to being placed in observation. Vascular infection (catheter associated)n was not present prior to being placed in observation. Surgical site infection was not present prior to being placed in observation. An object left in surgery was not present prior to being placed in observation. Blood incompatibility was not present prior to being placed in observation. Air embolism was not present prior to being placed in observation.CLINICAL IMPRESSION Hypokalemia; hypomagnesemia.(Electronically signed by EDUARDO Moses 02/16/2020 21:08) Name Value Range Interpretation Code Description Data Michelle rce(s) Supporting Document(s) ID Date Data Source [id number] 02/20/2020 03:47:00 PM EDT [facility] Name Value Range Interpretation Code Description Data Michelle rce(s) Supporting Document(s) CULTURE URINE [facility] _CULTURE URINE_$$[id number]$$[id number]$$[id number]$$[id number]$$[id number]$$[id number]$$[id number]$$[id number]$$[id number]$$ [id number]$$288188$$[id number]$$[id number]$$154462$$184954$$501572$$697990$$964550$$906912$$ 730139$$757071$$[id number]$$480761$$448554$$[id number]$$[id number]$$[id number] -- Continued on next page --Patient: RITTER NATALIYA Martinez Order: [id number] Page 2Culture: CULTURE URINE Status: Final ==== -- Continued on next page --Patient: RITTER NATALIYA Martinez Order: [id number] Page 2Culture: CULTURE URINE Status: Prelim =====$$[id number] DATE/TIME: 02/20/2020 15:06Culture: CULTURE URINE Status: FinalUrine Culture,Comprehensive: [id number] urogenital flora10,000-25,000 colony forming units per mL Previous result entered on 02/19/2020 03:15 ET Specimen has been received and testing has been initiated.P1 Test performed by: [facility] #: [id number] [address] [place] [address] [id number] [facility] [id number] Director : Abhilash Hilario MD NPI #:Business Analysis Consultant : 02/20/20.0635.XMT.SENT REF 02/20/20.1548.XMT.SENT REF 02/20/20.1548.CM .to [facility] via fax ID Date Data Source [id number] 02/16/2020 09:26:00 PM EDT [facility] Name Value Range Interpretation Code Description Data Michelle rce(s) Supporting Document(s) [facility] UR[facility] SOURCE R [facility] COLOR yellow NORMAL: Yellow [facility] CLARITY clear NORMAL: Clear [facility] Specific gravity of Urine by Test strip 1.010 1.001 - 1.030 [facility] 7 5 - [facility] Gl[facility] [Mass/volume] in Urine by Test strip NORM NORMAL: Negat [facility] Bilirubin.total [Presence] in Urine by Test strip NEG NORMAL: Negative [facility] Ketones [Presence] in Urine by Test strip 150 NORMAL: Negative A [facility] Protein [Mass/volume] in Urine by Test strip 30 NORMAL: Negat [facility] Nitrite [Presence] in Urine by Test strip NEG NORMAL: Negative [facility] BLOOD NEG NORMAL: Negative [facility] Leukocyte esterase [Presence] in Urine by Test strip 25 DAYLIN L: Negative [facility] Urobilinogen [Mass/volume] in Urine by Test strip 4 less tito n 1.0 mg/dL [facility] MICROSCOPIC See Below [facility] ital WBC 0 - 1 NORMAL: NONE SEEN [facility] Erythrocytes [#/volume] in Urine by Test strip 0 - 1 NORMAL: NON E SEEN [facility] EPITHELIAL MANY NORMAL: NONE SEEN A [facility] Bacteria [Presence] in Urine sediment by Light microscopy 2+ MOD NORMAL: NONE SEEN A [facility] ID Date Data Source [id number] 02/16/2020 09:24:00 PM EDT [facility] Name Value Range Interpretation Code Description Data Michelle rce(s) Supporting Document(s) HCG URINE QUAL NEGATIVE NORMAL: NEGATIVE [facility] HCG URINE QL REENTER NEGATIVE NORMAL: NEGATIVE [facility] { KIT LOT # [id number] ){ KIT EXP DATE 02/20/21 ){ PROCEDURAL CONTROL VALID ) ID Date Data Source [id number] 02/16/2020 09:22:00 PM EDT [facility] Name Value Range Interpretation Code Description Data Michelle rce(s) Supporting Document(s) HCG SERUM QUAL NEGATIVE NORMAL: NEGATIVE [facility] HCG SERUM QL REENTER NEGATIVE NORMAL: NEGATIVE [facility] { KIT LOT # [id number] ){ KIT EXP DATE 02.20.21 ){ PROCEDURAL CONTROL VALID ) ID Date Data Source [id number] 02/16/2020 06:04:00 PM EDT [facility] Name Value Range Interpretation Code Description Data Michelle rce(s) Supporting Document(s) Ethanol [Moles/volume] in Blood <10.0 MG/DL [facility] ALCOHOL % 0.00 % 0.00 - 0.01 [facility] ital *FOR MEDICAL PURPOSES ONLY * ID Date Data Source [id number] 02/16/2020 06:04:00 PM EDT [facility] Name Value Range Interpretation Code Description Data Michelle rce(s) Supporting Document(s) Magnesium [Mass/volume] in Serum or Plasma 1.6 MG/DL 1.7 - 2.2 L [facility] ID Date Data Source [id number] 02/16/2020 06:04:00 PM T [facility] Name Value Range Interpretation Code Description Data Michelle rce(s) Supporting Document(s) Lipase [Enzymatic activity/volume] in Serum or Plasma 15 U/L 13 - 60 [facility] ID Date Data Source [id number] 02/16/2020 06:00:00 PM EDT [facility] Name Value Range Interpretation Code Description Data Michelle rce(s) Supporting Document(s) COMPREHENSIVE METABOLIC PANEL [facility] COMPREHENSIVE METABOLIC PANEL Sodium [Moles/volume] in Serum or Plasma 141 mEq/L 134 - 153 [facility] Potassium [Moles/volume] in Serum or Plasma 2.6 mEq/L 3.6 - 5.0 [facility] CALL/ READ BACK EBN IN ER [facility] BY: CD [facility] Hospit al DATE/TIME 02.16.201801 [facility] spital Chloride [Moles/volume] in Serum or Plasma 95 mEq/L 98 - 107 L [facility] Carbon dioxide, total [Moles/volume] in Serum or Plasma 28 MEQ/L 22 - 30 [facility] Glucose [Mass/volume] in Serum or Plasma 108 MG/DL 65 - 110 [facility] BUN 17 MG/DL 7 - [facility] Creatinine [Mass/volume] in Serum or Plasma 0.6 MG/DL 0.7 - 1.5 L [facility] BUN/CREAT 28 8 - 27 H [facility] al Protein [Mass/volume] in Serum or Plasma 8.3 G/DL 6.3 - 8.2 H [facility] Albumin [Mass/volume] in Serum or Plasma 5.3 G/DL 3.9 - 5.0 H [facility] Globulin [Mass/volume] in Serum by calculation 3.0 GM/DL 2.4 - 3.2 [facility] A/G RATIO 1.8 0.8 - 2.0 [facility] al Calcium [Mass/volume] in Serum or Plasma 10.3 MG/DL 8.4 - 10.2 H [facility] Bilirubin.total [Mass/volume] in Serum or Plasma 0.9 MG/DL 0.2 - 1.3 [facility] Alkaline phosphatase [Enzymatic activity/volume] in Serum or Plasma 71 U/L 38 - 126 [facility] Aspartate aminotransferase [Enzymatic activity/volume] in Serum or Plasma 36 U/L 5 - 40 [facility] Alanine aminotransferase [Enzymatic activity/volume] in Seru m or Plasma 63 U/L 7 - 56 H [facility] Anion gap 3 in Serum or Plasma 18.0 mmol/L 8.0 - 16.0 H [facility] AGE 24 yrs [facility] al NON-AA GFR >60 mL/min [facility] ital AFR AMER GFR >60 mL/min [facility] Ho spital Male GFR In terprentation 20-49 yrs >60 mL/min Normal 50-59 yrs >56 mL/min Normal 60-69 yrs >49 mL/min Normal 70-79yrs >42 mL/min Normal 80 and above >35 mL/min Normal Female GFR Interpretation 20-39 yrs >60 mL/min Normal 40-49 yrs >58 mL/min Normal 50-59 yrs >51 mL/min Normal 60-69 yrs >45 mL/min Normal 70-79 yrs >39 mL/min Normal 80 and above >32 mL/min Normal ID Date Data Source [id number] 02/16/2020 05:38:00 PM EDT [facility] Name Value Range Interpretation Code Description Data Michelle rce(s) Supporting Document(s) CBC W/AUTOMATED DIFF [facility] COMPLETE BLOOD COUNT Leukocytes [#/volume] in Blood by Automated count 10.4 10^3/uL 4.2 - 11.0 [facility] Erythrocytes [#/volume] in Blood by Automated count 4.60 10^6/uL 4. 20 - 5.40 [facility] Hemoglobin [Mass/volume] in Blood 12.6 g/dL 12.0 - 16.0 [facility] Hematocrit [Volume Fraction] of Blood by Automated count 37.9 % 3 7.0 - 47.0 [facility] Erythrocyte mean corpuscular volume [Entitic volume] by Auto mated count 82.4 fL 81.0 - 101 [facility] Erythrocyte mean corpuscular hemoglobin [Entitic mass] by Automated count 27.4 pg 27.0 - 34.0 [facility] Erythrocyte mean corpuscular hemoglobin concentration [Mass/volume] by Automated count 33.2 g/dL 31.0 - 36.0 [facility] Erythrocyte distribution width [Ratio] by Automated count 13.8 % 11.5 - 14.5 [facility] Platelets [#/volume] in Blood by Automated count 360 10^3/uL 150 - 45 0 [facility] Platelet mean volume [Entitic volume] in Blood by Automated count 10.7 fL 7.4 - 10.4 H [facility] Neutrophils/100 leukocytes in Blood by Automated count 77.0 % 37. 0 - 80.0 [facility] Lymphocytes/100 leukocytes in Blood by Manual count 14.3 % 25.0 - 40.0 L [facility] Monocytes/100 leukocytes in Blood by Automated count 8.0 % 3.0 - 8.0 [facility] Eosinophils/100 leukocytes in Blood by Automated count 0.0 % 0.0 - 7.0 [facility] Basophils/100 leukocytes in Blood by Automated count 0.2 % 0.0 - 2.5 [facility] %IG 0.5 % 0.0 - 0.0 [facility] %NRBC 0.0 % 0.0 - 0.0 [facility] al Neutrophils [#/volume] in Blood by Automated count 7.98 10^3/uL 2.00 - 6.90 H [facility] Lymphocytes [#/volume] in Blood by Automated count 1.48 10^3/uL 0.60 - 3.40 [facility] Monocytes [#/volume] in Blood by Automated count 0.83 10^3/uL 0.00 - 0.90 [facility] Eosinophils [#/volume] in Blood by Automated count 0.00 10^3/uL 0.00 - 0.70 [facility] Basophils [#/volume] in Blood by Automated count 0.02 10^3/uL 0.00 - 0.20 [facility] #IG 0.05 10^3/uL 0.00 - 0.10 [facility]spital #NRBC 0.00 10^3/uL 0.00 - 0.00 [facility] MANUAL DIFF NOT INDICATED [facility] RBC MORPH NOT INDICATED [facility] spital ID Date Data Source [id number] 01/19/2020 08:44:00 AM EDT [facility] Name Value Range Interpretation Code Description Data Michelle rce(s) Supporting Document(s) HCT 28.4 % 36.0-47.0 L [facility] HGB 9.3 g/dL 12.0-15.5 L [facility] MCH 32.7 G/DL pg 32.0-36.5 N [facility] MCHC 31.1 PG % 27.0-33.0 N [facility] PLATELETS 164 10 10*3/mm3 150-450 N [facility] RBC 2.99 10 10*6/mm3 4.00-5.40 L [facility] RDW 13.2 % 11.5-14.5 N [facility] WBC TOTAL 7.3 4.0-10.0 N [facility] ID Date Data Source [id number] 01/19/2020 08:44:00 AM EDT [facility] Name Value Range Interpretation Code Description Data Michelle rce(s) Supporting Document(s) BG FASTING 108 mg/dL 70-100 H [facility] ID Date Data Source [id number] 01/18/2020 04:42:00 AM EDT [facility] 27.49.233.6 G/DL31.4 PG183 102.93 1013.9 9.8 98 30.810.433.8 G/DL31.6 PG176 103.29 1013. 410.7 109 Name Value Range Interpretation Code Description Data Michelle rce(s) Supporting Document(s) ID Date Data Source [id number] 01/18/2020 04:42:00 AM EDT [facility] 27.49.233.6 G/DL31.4 PG183 102.93 1013.9 9.8 98 30.810.433.8 G/DL31.6 PG176 103.29 1013. 410.7 109 Name Value Range Interpretation Code Description Data Michelle rce(s) Supporting Document(s) ID Date Data Source [id number] 01/17/2020 07:33:00 PM EDT [facility] 27.49.233.6 G/DL31.4 PG183 102.93 1013.9 9.8 98 30.810.433.8 G/DL31.6 PG176 103.29 1013. 410.7 109 Name Value Range Interpretation Code Description Data Michelle rce(s) Supporting Document(s) ID Date Data Source [id number] 01/17/2020 07:33:00 PM EDT [facility] 27.49.233.6 G/DL31.4 PG183 102.93 1013.9 9.8 98 30.810.433.8 G/DL31.6 PG176 103.29 1013. 410.7 109 Name Value Range Interpretation Code Description Data Michelle rce(s) Supporting Document(s) ID Date Data Source [id number] 12/27/2019 03:38:00 PM EDT [facility] Name Value Range Interpretation Code Description Data Michelle rce(s) Supporting Document(s) Potassium [Moles/volume] in Serum or Plasma 3.6 mEq/L 3.6 - 5.0 [facility] ID Date Data Source [id number] 12/27/2019 07:03:00 AM EDT [facility] Name Value Range Interpretation Code Description Data [facility](s) Supporting Document(s) COMPREHENSIVE METABOLIC PANEL [facility] COMPREHENSIVE METABOLIC PANEL Sodium [Moles/volume] in Serum or Plasma 137 mEq/L 134 - 153 [facility] Potassium [Moles/volume] in Serum or Plasma 3.2 mEq/L 3.6 - 5.0 L [facility] Chloride [Moles/volume] in Serum or Plasma 101 mEq/L 98 - 107 [facility] Carbon dioxide, total [Moles/volume] in Serum or Plasma 27 MEQ/L 22 - 30 [facility] Glucose [Mass/volume] in Serum or Plasma 91 MG/DL 65 - 110 [facility] BUN 9 MG/DL 7 - 21 [facility] Creatinine [Mass/volume] in Serum or Plasma 0.5 MG/DL 0.7 - 1.5 L [facility] BUN/CREAT 18 8 - 27 [facility] al Protein [Mass/volume] in Serum or Plasma 6.0 G/DL 6.3 - 8.2 L [facility] Albumin [Mass/volume] in Serum or Plasma 3.9 G/DL 3.9 - 5.0 [facility] Globulin [Mass/volume] in Serum by calculation 2.1 GM/DL 2.4 - 3.2 L [facility] A/G RATIO 1.9 0.8 - 2.0 [facility] Calcium [Mass/volume] in Serum or Plasma 8.8 MG/DL 8.4 - 10.2 [facility] Bilirubin.total [Mass/volume] in Serum or Plasma 1.4 MG/DL 0.2 - 1.3 H [facility] Alkaline phosphatase [Enzymatic activity/volume] in Serum or Plasma 49 U/L 38 - 126 [facility] Aspartate aminotransferase [Enzymatic activity/volume] in Serum or Plasma 32 U/L 5 - 40 [facility] Alanine aminotransferase [Enzymatic activity/volume] in Seru m or Plasma 33 U/L 7 - 56 [facility] Anion gap 3 in Serum or Plasma 9.0 mmol/L 8.0 - 16.0 [facility] AGE 24 yrs [facility] al NON-AA GFR >60 mL/min [facility] ital AFR AMER GFR >60 mL/min [facility] Ho spital Male GFR In terprentation 20-49 yrs >60 mL/min Normal 50-59 yrs >56 mL/min Normal 60-69 yrs >49 mL/min Normal 70-79yrs >42 mL/min Normal 80 and above >35 mL/min Normal Female GFR Interpretation 20-39 yrs >60 mL/min Normal 40-49 yrs >58 mL/min Normal 50-59 yrs >51 mL/min Normal 60-69 yrs >45 mL/min Normal 70-79 yrs >39 mL/min Normal 80 and above >32 mL/min Normal ID Date Data Source [id number] 12/27/2019 06:51:00 AM EDT [facility] Name Value Range Interpretation Code Description Data Michelle rce(s) Supporting Document(s) Magnesium [Mass/volume] in Serum or Plasma 2.1 MG/DL 1.7 - 2.2 [facility] ID Date Data Source [id number] 12/27/2019 06:43:00 AM T [facility] Name Value Range Interpretation Code Description Data Michelle rce(s) Supporting Document(s) CBC W/AUTOMATED DIFF [facility] COMPLETE BLOOD COUNT Leukocytes [#/volume] in Blood by Automated count 8.3 10^3/uL 4.2 - 1 1.0 [facility] Erythrocytes [#/volume] in Blood by Automated count 4.06 10^6/uL 4. 20 - 5.40 L [facility] Hemoglobin [Mass/volume] in Blood 12.7 g/dL 12.0 - 16.0 [facility] Hematocrit [Volume Fraction] of Blood by Automated count 37.3 % 3 7.0 - 47.0 [facility] Erythrocyte mean corpuscular volume [Entitic volume] by Auto mated count 91.9 fL 81.0 - 101 [facility] Erythrocyte mean corpuscular hemoglobin [Entitic mass] by Automated count 31.3 pg 27.0 - 34.0 [facility] Erythrocyte mean corpuscular hemoglobin concentration [Mass/volume] by Automated count 34.0 g/dL 31.0 - 36.0 [facility] Erythrocyte distribution width [Ratio] by Automated count 12.5 % 11.5 - 14.5 [facility] Platelets [#/volume] in Blood by Automated count 231 10^3/uL 150 - 45 0 [facility] Platelet mean volume [Entitic volume] in Blood by Automated count 10.2 fL 7.4 - 10.4 [facility] Neutrophils/100 leukocytes in Blood by Automated count 65.2 % 37. 0 - 80.0 [facility] Lymphocytes/100 leukocytes in Blood by Manual count 25.2 % 25.0 - 40.0 [facility] Monocytes/100 leukocytes in Blood by Automated count 8.8 % 3.0 - 8.0 H [facility] Eosinophils/100 leukocytes in Blood by Automated count 0.2 % 0.0 - 7.0 [facility] Basophils/100 leukocytes in Blood by Automated count 0.2 % 0.0 - 2.5 [facility] %IG 0.4 % 0.0 - 0.0 H [facility] al %NRBC 0.0 % 0.0 - 0.0 [facility] al Neutrophils [#/volume] in Blood by Automated count 5.41 10^3/uL 2.00 - 6.90 [facility] Lymphocytes [#/volume] in Blood by Automated count 2.09 10^3/uL 0.60 - 3.40 [facility] Monocytes [#/volume] in Blood by Automated count 0.73 10^3/uL 0.00 - 0.90 [facility] Eosinophils [#/volume] in Blood by Automated count 0.02 10^3/uL 0.00 - 0.70 [facility] Basophils [#/volume] in Blood by Automated count 0.02 10^3/uL 0.00 - 0.20 [facility] #IG 0.03 10^3/uL 0.00 - 0.10 [facility]sp[facility] #NRBC 0.00 10^3/uL 0.00 - 0.00 [facility] MANUAL DIFF NOT INDICATED [facility] RBC MORPH NOT INDICATED [facility] spital ID Date Data Source [id number] 12/26/2019 10:41:00 [place] [address] RESPIRATORY CARE REPORT ==== ---------NAME------- NUMBER SEX AGE ADMIT DISC. XRAY# F/C TYPERITTER NATALIYA Martinez [id number] F 24 12/26/19 [id number] X6B O/P DATE OF : 1995 M/R# [id number] #: [phone] LOCATION: EMERGENCY DEPT EKG 18753 COMP LETE:12/26/19 14:18 EWW [id number] PHYSICIAN: CLAUDIO PAUL Name Value Range Interpretation Code Description Data Michelle rce(s) Supporting Document(s) ID Date Data Source [id number] 12/26/2019 10:59:00 AM EDT [facility] 1 OrderSheet [facility] Emergency Department [address] [place] [address] Phone #: ext- [phone] 12/26/2019 10:40 Patient: NATALIYA BEASLEY Sex: F : 1995 Age: 24yWEIGHT:58.9 kg (S) HEIGHT:64 inches (S) BMI:22.3ALLERGIES: Sulfa AntibioticsCHIEF COMPLAINT: abdominal painDIAGNOSIS: ProblemLAB ORDERSOrder Description Priority Entered Acknowledged InitialedCBC w Diff STAT 11:03 12/26/2019 11:22 Nik Quiles R.N.;CMP STAT 11:03 12/26/2019 11:22 Nik Quiles R.N. PA;Urinalysis (Clean STAT 11:03 12/26/2019 Ack'd: 11:22 13:38 Etta,Catch) Zakiya Campa R.N.; R.N.Beta-HCG, Qual STAT 11:03 12/26/2019 11:22 Etta,Urine Nik CLARK;Troponin-T STAT 11:03 12/26/2019 11:22 Nik Quiles R.N.;Magnesium STAT 11:03 12/26/2019 11:22 Nik Quiles R.N.;CMP STAT 13:29 12/26/2019 Ack'd: 13:30 13:35 Nik Quiles Laura Laura R.N. PA; R.N. NOTES: re-draw and repeat pleaseDIAGNOSTIC STUDY ORDERSOrder Description Priority Entered Acknowledged InitialedMEDICATION/IV/DRIP/FLUID ORDERSOrder Description Priority Entered Acknowledged InitialedLR IV : Bolus 1000 11:03 12/26/2019 11:22 Etta, 2 OrderSheet [facility] Emergency Department [address] [place] [address] Phone #: ext- [phone] 12/26/2019 10:40 Patient: NATALIYA BEASLEY Sex: F : 1995 Age: 24ymL, then 150 mL/hr Nik CLARK;KCl Liquid PO 40 12:06 12/26/2019 12:18 Melaragno,meq Nik CLARK;KCl IVPB 10 12:06 12/26/2019 12:18 Melaragno,meq/100mL Nik CLARK;Zofran ODT PO 8 12:09 12/26/2019 12:15 Kaylynno,mg Nik CLARK;Magnesium Sulfate 12:18 12/26/2019 12:29 Etta,2 g IVPB X1 dose: 2 Nik Sigala R.N.gm (HIGH ALERT PA;MEDICATION, X1)KCl Liquid PO 40 14:54 12/26/2019 15:05 Jenifferaragno,meq Nik CLARK;KCl IVPB 10 14:54 12/26/2019 15:06 Melaragno,meq/100mL Nik CLARK;Zofran IVP 8 mg 15:27 12/26/2019 15:36 Alexia Kemp R.N.;GENERAL ORDERSOrder Description Priority Entered Acknowledged InitialedEKG 11:03 12/26/2019 11:22 Nik Quiles R.N.;Saline Lock 11:03 12/26/2019 11:22 Nik Quiles R.N.;[Electronically signed by Zakiya Quiles R.N. (16:39 12/26/2019)][Electronically signed by Nik Paul (21:44 12/26/2019)][Electronically locked by Zakiya Quiles R.N. (16:39 12/26/2019)] Name Value Range Interpretation Code Description Data Michelle rce(s) Supporting Document(s) ID Date Data Source [id number] 12/26/2019 10:59:00 AM EDT [facility] 1 Medication Reconciliation Report [facility] Emergency Department [address] [place] [address] Phone #: ext- [phone] 12/26/2019 10:40 Patient: NATALIYA BEASLEY Sex: F : 1995 Age: 24yWeight: 58.9 kgHeight/Length: 64 in.BMI: 22.3ALLERGIES: Sulfa AntibioticsThe patient's Home Medications are listed below:THE FOLLOWING MEDICATIONS NEED TO BE RECONCILED: Pepcid Oral Promethazine HCl Oral (12.5 mg), prnThe source(s) of the original Home Medication information:Not obtained.The following Medications were given to the patient in the Emergency Department:LR [IV] IV Fluids bolus 1000 mL wide open, administered: 12/26/2019 11:22:00 AMZofran ODT [PO] PO 8 mg, administered: 12/26/2019 12:15:00 PMKCL [IVPB] IVPB bolus 0, then 10 meq 100 mL/hr, administered: 12/26/2019 12:15:00 PMKCL LIQUID PO PO 40 meq, administered: 12/26/2019 12:18:00 PMMagnesium Sulfate [IVPB] IVPB bolus 0, then 2 gm 50 mL/hr, administered: 12/26/2019 12:29:00 PMKCL LIQUID PO PO 40 meq, administered: 12/26/2019 3:05:00 PMKCL [IVPB] IVPB bolus 0, then 10 meq 100 mL/hr, administered: 12/26/2019 3:06:00 PMZofran [IVP] IVP 8 mg, administered: 12/26/2019 3:36:00 PMThe following Medications were prescribed to the patient:None. Name Value Range Interpretation Code Description Data Michelle rce(s) Supporting Document(s) ID Date Data Source [id number] 12/26/2019 10:59:00 AM EDT [facility] 1 Medication Administration Record [facility] Emergency Department [address] [place] [address] Phone #: ext- [phone] 12/26/2019 10:40 Patient: NATALIYA BEASLEY Sex: F : 1995 Age: 24yWeight: 58.9 kgHeight/Length: 64 inBMI: 22.3ALLERGIES: Sulfa Antibiotics Date/Time Medication Administered Medication OrderedStart LR [IV] LR IV : Bolus 1000 mL, then 09085:22 12/26/2019 Dose: IV Fluids mL/hrZakiya Quiles, R.NSveta Bolus: 1000 mL wide open---- Dispensed: 1000 mL bagStop Site: #1 left AC16:30 12/26/2019Zakiya Quiles R.NSvetaGiven KCL LIQUID PO KCl Liquid PO 40 meq12:18 12/26/2019 Dose: 40 meq Zakiya Mary R.NSvetaStart KCL [IVPB] KCl IVPB 10 meq/741aO45:15 12/26/2019 Dose: 10 meq IVPBZakiya Quiles, R.N. Rate: 100 mL/hr over 60 minute(s)---- Dispensed: 100 mL bagStop Site: #1 left AC13:54 12/26/2019Alexia Kemp RPuraGiven ZOFRAN ODT [PO] (ONDANSETRON Zofran ODT PO 8 mg12:15 12/26/2019 HCL)Zakiya Quiles RSvetaNSveta Dose: 8 mg POStart MAGNESIUM SULFATE [IVPB] Magnesium Sulfate 2 g IVPB X112:29 12/26/2019 Dose: 2 gm IVPB dose: 2 gm (HIGH ALERTZakiya Quiles, R.NSveta Rate: 50 mL/hr over 1 hour(s) MEDICATION, X1)---- Dispensed: 50 mL bagStop Site: #1 left AC13:54 12/26/2019Alexia Kemp R.N.Given KCL LIQUID PO KCl Liquid PO 40 meq15:05 12/26/2019 Dose: 40 meq Zakiya Mary R.N.Start KCL [IVPB] KCl IVPB 10 meq/598kT94:06 12/26/2019 Dose: 10 meq IVPBZakiya Quiles R.N. Rate: 100 mL/hr over 1 hour(s)---- Dispensed: 100 mL bagStop Site: #1 left AC16:11 12/26/2019Zakiya Quiles R.N.Given ZOFRAN [IVP] (ONDANSETRON HCL) Zofran IVP 8 mg15:36 12/26/2019 Dose: 8 mg Alexia Kelly R.N. Site: #1 left AC Name Value Range Interpretation Code Description Data Michelle rce(s) Supporting Document(s) ID Date Data Source [id number] 12/26/2019 10:59:00 AM EDT [facility] 1 General Instructions [facility] Emergency Department [address] [place] [address] Phone #: ext- [phone] 12/26/2019 10:40 Patient: NATALIYA BEASLEY Sex: F : 1995 Age: 24yHypokalemia.(Electronically signed by EDUARDO Moses 12/26/2019 21:44) Name Value Range Interpretation Code Description Data Michelle rce(s) Supporting Document(s) ID Date Data Source [id number] 12/26/2019 10:59:00 AM EDT [facility] 1 Clinical Report - Nurses [facility] Emergency Department [address] [place] [address] Phone #: ext- [phone] 12/26/2019 10:40 Patient: NATALIYA BEASLEY Sex: F : 1995 Age: 24yTRIAGEArrived by private vehicle. Historian: patient.Acuity: LEVEL 3.Chief Complaint: ABDOMINAL PAIN, NAUSEA and VOMITING.Onset. (3 days ago). ( Pt states she was seen here for the same thing about 2 weeks ago, abdominal painalong with n/v, she has had the same issues continue and voices much abdominal pain, pt also voicescramps in her hands).Treatment [employer]:None.SEPSIS SCREEN: SIRS Screen negative. Sepsis Screen negative. No suspected or confirmed signs ofinfection present.CONY COMA SCORE: 15- eyes open- spontaneous (4); best verbal response- oriented (5); bestmotor response- obeys commands (6). --10:53 12/26/19 Bernard Patel RN10:42 12/26/19. BP: 128/92. MAP: 104. HR: 73. RR: 16. O2 saturati on: 99% on room air. Temp: 97 F(oral). Pain level now: 01/25. --10:53 12/26/19 Bernard Patel RN.Weight: 58.9 kg stated. Height/Length: 64 inches Per Patient. BMI: 22.3. --10:41 12/26/19 Bernard Patel RN.MedicationsPepcid Oral. Promethazine HCl Oral (Tablet 12.5 mg), as needed. --11:30 12/26/19 Bernard Patel RN.AllergiesSulfa Antibiotics. --10:48 12/26/19 Bernard Patel RN.ADDITIONAL SURGERIES:Tympanostomy Tubes. --10:48 12/26/19 Bernard Patel RN.HistoryPAST MEDICAL HX: Immunizations: up-to-date. Last normal menstrual period- 2 weeks ago.SOCIAL HX: Never smoker. Occasional alcohol use; consumes liquor drinks. His tory of occasional druguse: marijuana. No recent travel. No known contact with a sick individual. She was offered HIV testingbut declined and hepatitis C testing but declined. She has not traveled outside the [place]Infectious disease exposure: No infectious disease exposure. The patient was not exposed to Coronavirus. 2 Clinical Report - Nurses [facility] Emergency Department [address] [place] [address] Phone #: ext- [phone] 12/26/2019 10:40 Patient: NATALIYA BEASLEY Sex: F : 1995 Age: 24y SELF HARM ASSESSMENT: Self harm assessment was performed. The patient answered "no" to the question(s) "Have you recently felt down, depressed, or hopeless?", "Do you have thoughts of harming or killing yourself?", "Do you have a plan for harming or killing yourself?", "Have you recently had thoughts about harming or killing others?", "Do you have any dangerous items in your possession?", "Have you noticed less interest or pleasure in doing things?", "Are you here because you tried to hurt yourself?" and "Have you ever tried to hurt yourself before today?". ABUSE ASSESSMENT: No report of abuse. NUTRITIONAL RISK ASSESSMENT: The nutritional risk assessment revealed no deficiencies. FUNCTIONAL ASSESSMENT: Functional assessment: no impairments noted. LEARNING NEEDS ASSESSMENT: The learning needs assessment revealed no barriers. FALL RISK ASSESSMENT: Fall risk assessment completed. No risk factors identified. SKIN INTEGRITY ASSESSMENT: Skin integrity risk assessment completed. No skin integrity risk identified. --10:53 12/26/19 Bernard Patel RN. Interventions To treatment room. --10:53 12/26/19 Bernard Patel RN.PHYSICAL ASSESSMENTAmbulatory to room. Patient gowned.GENERAL / NEURO / PSYCH: Alert. Oriented X 4. Appears in no acute distress. Appears anxious.HEENT: Mucous membranes are pink.RESPIRATORY: Respirations not labored. Breath sounds within normal limits.CVS: Normal sinus rhythm noted. Capillary refill less than 2 seconds.GI / : The patient has had nausea. Emesis noted. Abdomen soft and nontender. Bowel soundswithin normal limits. No abdominal distention.EXTREMITIES: ( cramping to bilateral hands).SKIN: Skin is warm and dry. --11:25 12/26/19 Zakiya Quiles R.N.NURSING PROGRESS NOTES11:12/26/2019 Site #1 started via IV in the left antecubital space with an 20g angiocath, with aseptictechnique; one attempt. Saline lock flushed with 10 mL saline. --11:12/26/19 Zakiya Quiles R.N. 11:12/26/2019 Started bag #1 1000 mL IV Fluids LR; bolus of 1000 mL wide open then at via site #1 via IV pump. Allergies verified and confirmed 5 rights. IV patency established. IV site checked: no pain, redness, or swelling. IV flushed thoroughly pre- and post-medication administration. Information reviewed with patient. Verbalizes understanding. --11:12/26/19 Zakiya Quiles R.N. 3 Clinical Report - Nurses [facility] Emergency Department [address] [place] [address] Phone #: ext- [phone] 12/26/2019 10:40 Patient: NATALIYA BEASLEY Sex: F : 1995 Age: 24yPatient gowned. Two patient identifiers checked. Call light placed in reach. Side rails up x 2. Bedplaced in lowest position. Brakes of bed on. --11:23 12/26/19 Zakiya Quiles R.N.The patient is calm and resting quietly. Overall patient status is the same- she states feels the same.--11:48 12/26/19 Zakiya Quiles R.N.Critical value relayed by Davida Velez (late entry - 12:03 12/26/2019). Critical value received by Farzad Branham (late entry - 12:03 12/26/2019). K: 2.9. Critical value read back. Verified lab result and patient ID.PA notifed of critical value (Amy CLARK). --12:05 12/26/19 Mandy Alvarez R.N.12:12/26/2019 Zofran ODT (Ondansetron HCl) PO 8 mg given. Allergies verified and confirmed 5 rights.Information reviewed with patient. Verbalizes understanding. --12:12/26/19 Zakiya Quiles R.N.12:12/26/2019 Started 10 meq of KCL IVPB in bag #1 100 mL; at 100 mL/hr over 60 minute(s) via site#1. via IV pump. Allergies verified and confirmed 5 rights. IV patency established. IV site checked: no pain,redness, or swelling. IV flushed thoroug hly pre- and post-medication administration. Information reviewedwith patient. Verbalizes understanding. --12:12/26/19 Zakiya Quiles R.N.12:12/26/2019 KCL LIQUID PO PO 40 meq given. Allergies verified and confirmed 5 rights. Informationreviewed with patient. Verbalizes understanding. --12:12/26/19 Zakiya Quiles R.N.The patient is calm and resting quietly. Overall patient status is the same- she states feels the same.--12:12/26/19 Zakiya Quiles R.N.12:19 12/26/19. BP: 116/80. MAP: 92. HR: 79. RR: 18. O2 saturation: 99% on room air. Temp: 97.9 F.--12:12/26/19 Zakiya Quiles R.N.12:12/26/2019 Started 2 gm of Magnesium Sulfate IVPB in bag #1 50 mL; at 50 mL/hr over 1 hour(s) viasite #1. via IV pump. Allergies verified and confirmed 5 rights. IV patency established. IV site checked: nopain, redness, or swelling. IV flushed thoroughly pre- and post-medication administration. Informationreviewed with patient. Verbalizes understanding. --12:29 12/26/19 Zakiya Quiles R.N.Patient ID band checked for patient name and birthdate: patient confirmed. Instructions provided to collectclean catch urine and patient verbalized understanding. Clean catch urine collected; sample sent to lab forurinalysis. Specimen labeled in the presence of the patient. --13:39 12/26/19 Zakiya Quiles R.N.13:54 12/26/2019 KCL IVPB via IV site #1 Discontinued: completed. Total amount infused: 100 mL. IVpatency established. IV site checked: no pain, redness, or swelling. IV flushed thoroughly. --13:54 12/26/19Alexia Kemp R.N.13:54 12/26/2019 Magnesium Sulfate IVPB via IV site #1 Discontinued: completed. Total amount infused:100 mL. --13:54 12/26/19 Alexia Kemp R.N.14:57 12/26/2019 IV Fluids LR via IV site #1 Bag Change: bag #1 infused. Total amount infused: 1000. 4 Clinical Report - Nurses [facility] Emergency Department [address] [place] [address] Phone #: ext- [phone] 12/26/2019 10:40 Patient: NATALIYA BEASLEY Sex: F : 1995 Age: 24y STARTED bag #2 (1000 mL) at 150 mL/hr via IV pump. Confirmed 5 rights. IV patency established. IV site checked: no pain, redness, or swelling. IV flushed thoroughly. --14:57 12/26/19 Alexia Kemp R.N. 15:05 12/26/2019 KCL LIQUID PO PO 40 meq given. Allergies verified and confirmed 5 rights. Information reviewed with patient. Verbalizes understanding. --15:05 12/26/19 Zakiya Quiles R.N. 15:06 12/26/2019 Started 10 meq of KCL IVPB in bag #1 100 mL; at 100 mL/hr over 1 hour(s) via site #1. via IV pump. Allergies verified and confirmed 5 rights. IV patency established. IV site checked: no pain, redness, or swelling. IV flushed thoroughly pre- and post-medication administration. Information reviewed with patient. Verbalizes understanding. --15:06 12/26/19 Zakiya Quiles R.N. The patient is calm and resting quietly. Overall patient status is the same- she states feels better. --15:07 12/26/19 Zakiya Quiles R.N. 15:06 12/26/19. BP: 124/92. MAP: 102. HR: 84. RR: 18. O2 saturation: 99%. Temp: 98.3 F. --15:07 12/26/19 Zakiya Quiles R.N. 15:36 12/26/2019 Zofran (Ondansetron HCl) IVP 8 mg given over 2 minute(s) via site #1. Allergies verified and confirmed 5 rights. IV patency established. IV site checked: no pain, redness, or swelling. IV flushed thoroughly pre- and post-medication administration. IVP given by RN. Information reviewed with patient including reason for taking this medication, signs of allergic reaction and precautions. Verbalizes understanding. --15:36 12/26/19 Alexia Kemp R.N. 16:11 12/26/2019 KCL IVPB via IV site #1 Discontinued: completed. Total amount infused: 100 mL. IV patency established. IV site checked: no pain, redness, or swelling. IV flushed thoroughly. --16:11 12/26/19 Zakiya Quiles R.N. 16:30 12/26/2019 IV Fluids LR via IV site #1 Discontinued: bag #2 upon admission. Total amount infused: 400 mL. IV patency established. IV site checked: no pain, redness, or swelling. IV flushed thoroughly. --16:39 12/26/19 Zakyia Quiles R.N.DISPOSITION / DISCHARGE Departure time: 16:31 12/26/2019. Admitted to the Acute Inpatient Unit, Monitored. Report was given to a nurse in person. Report included information regarding patient's care, treatment, allergies and condition including: recent changes, current vital signs and critical labs. Report included treatment information regarding medications given or pending; type and amount of IV fluids and medications infusing and total volume infused. No questions were asked. Report was acknowledged and care was transferred. Bed obtained and ready. --16:38 12/26/19 Zakiya Quiles R.N. 16:37 12/26/19. BP: 142/93. MAP: 109. HR: 75. RR: 17. O2 saturation: 100% on room air. Temp: 98.3 F. Pain level now: 07/25. --16:38 12/26/19 Zakiya Quiles R.N. 5 Clinical Report - Nurses [facility] Emergency Department [address] [place] [address] Phone #: ext- [phone] 12/26/2019 10:40 Patient: NATALIYA BEASLEY Sex: F : 1995 Age: 24yLocked/Released at 12/26/2019 16:39 by Zakiya Quiles R.N. Name Value Range Interpretation Code Description Data Michelle rce(s) Supporting Document(s) ID Date Data Source [id number] 12/26/2019 10:59:00 AM EDT [facility] 1 Clinical Report - Physicians/Mid Levels [facility] Emergency Department [address] [place] [address] Phone #: ext- [phone] 12/26/2019 10:40 Patient: NATALIYA BEASLEY Sex: F : 1995 Age: 24y Time Seen: 11:00 12/26/2019. Arrived- By private vehicle. Historian- patient.HISTORY OF PRESENT ILLNESS Chief Complaint: ABDOMINAL PAIN. This started 3 days ago; 24 year old female here with vomiting and stomach pain that has been occurring for the past 3 days. This occurred about 2 weeks ago and she was hypokalemic. Patient was admitted at this time. Patient currently thinks her potassium is low. Patient is having difficulty opening her hands. and is still present and worsening. It was gradual in onset and has been intermittent. It is described as "pain", sharp, stabbing and cramping. No radiation. It is described as located in the right lower quadrant and left lower quadrant and in the lower abdomen. The patient has had nausea, loss of appetite and vomiting. No diarrhea. No recent travel. Similar symptoms previously. Patient has had similar symptoms frequently. Recent medical care: Not recently seen/assessed.REVIEW OF SYSTEMSNo constipation, black stools, hematemesis, difficulty with urination or pain with urination. No urinaryfrequency, bloody stools, fever, headache or chills. She has not had weight loss. All other systemsreviewed and are negative.PAST HISTORYSee nurses notes. Problems: Ear infection with tubes. Gastritis. Alcoholism. Hypokalemia. Lactose Intolerance. Vomiting. Hypomagnesemia. Hyponatremia. Additional Surgeries: Tube in ears. Tympanostomy Tubes. Allergies: Sulfa Antibiotics. 2 Clinical Report - Physicians/Mid Levels [facility] Emergency Department [address] [place] [address] Phone #: ext- [phone] 12/26/2019 10:40 Patient: NATALIYA BEASLEY Sex: F : 1995 Age: 24ySOCIAL HISTORYNever smoker. Occasional alcohol use. History of drug use: marijuana. Recently used drugs yesterday.ADDITIONAL NOTESThe nursing notes have been reviewed.PHYSICAL EXAMVital Signs: 12/26/2019 10:42 BP: 128/92. MAP: 104. HR: 73. RR: 16. O2 saturation: 99% on room air.Temp: 97 F. Pain level now: 01/25. Have been reviewed and appear to be correct. Oxygen saturationnormal.Appearance: Alert. Oriented X3. No acute distress.Eyes: Pupils equal, round and reactive to light. Eyes normal inspection.ENT: Ears normal. Nose normal. Dry mucous membranes present.Neck: Normal inspection. Neck supple.CVS: Normal heart rate and rhythm. Heart sounds normal. Pulses normal.Respiratory: No respiratory distress. Painless inspiration. Breath sounds normal. Chest nontender.Abdomen: Soft. Mild tenderness diffusely. Bowel sounds normal. No organomegaly.Back: Normal inspection.Skin: Skin warm and dry.Extremities: Extremities exhibit normal ROM. No lower extremity edema. (contractures in bilateralhands.).Neuro: Oriented X 3. No motor deficit. No sensory deficit. Reflexes normal. Reflex exam: rightpatellar 2+, left patellar 2+, right Achilles 2+ and left Achilles 2+.LABS, X-RAYS, AND EKGLaboratory Tests: Laboratory tests have been ordered, with results reviewed and considered in themedical decision making process. CMP: (ANGELY: 12/26/2019 13:14) ( MsgRcvd 12/26/2019 14:26) Final results Test Result Flag Units (Reference) COMPREHENSIVE METABOLIC PANEL COMPREHENSIVE METABOLIC PANEL SODIUM 132 L mEq/L (134 - 153) POTASSIUM 2.9 LL mEq/L (3.6 - 5.0) CALL/ READ BACK NIK MCCORMACK ER BY: LINDA DATE/TIME [id number] CHLORIDE 86 L mEq/L (98 - 107) CO2 27 MEQ/L (22 - 30) GLUCOSE 118 H MG/DL (65 - 110) BUN 15 MG/DL (7 - 21) CREATININE 0.7 MG/DL (0.7 - 1.5) BUN/CREAT 21 (8 - 27) TOTAL PROTEIN 7.7 G/DL (6.3 - 8.2) ALBUMIN 5.0 G/DL (3.9 - 5.0) GLOBULIN 2.7 GM/DL (2.4 - 3.2) A/G RATIO 1.9 (0.8 - 2.0) CALCIUM 10.2 MG/DL (8.4 - 10.2) TOTAL BILI 1.4 H MG/DL (0.2 - 1.3) 3 Clinical Report - Physicians/Mid Levels [facility] Emergency Department [address] [place] [address] Phone #: ext- [phone] 12/26/2019 10:40 Patient: NATALIYA BEASLEY Sex: F : 1995 Age: 24y ALKALINE PHOS 63 U/L (38 - 126) SGOT/AST 16 U/L (5 - 40) SGPT/ALT 16 U/L (7 - 56) ANION GAP 19.0 H mmol/L (8.0 - 16.0) AGE 24 yrs NON- AA GFR >60 mL/min AFR AMER GFR >60 mL/min Male GFR Interprentation 20-49 yrs >60 mL/min Kedmce99-63 yrs >56 mL/min Normal 60-69 yrs >49 mL/min Normal 70-79yrs>42 mL/min Normal 80 and above >35 mL/min Normal Female GFRInterpretation 20-39 yrs >60 mL/min Normal 40-49 yrs >58 mL/minNormal 50-59 yrs >51 mL/min Normal 60-69 yrs >45 mL/min Qhlfdv00-52 yrs >39 mL/min Normal 80 and above >32 mL/min NormalCBC w Diff: (ANGELY: 12/26/2019 11:10) ( MsgRcvd 12/26/2019 11:52) Final results Test Result Flag Units (Reference) CBC W/AUTOMATED DIFF COMPLETE BLOOD COUNT WBC 14.9 H 10/uL (4.2 - 11.0) RBC 5.08 10/uL (4.20 - 5.40) HEMOGLOBIN 15.8 g/dL (12.0 - 16.0) HEMATOCRIT 45.4 % (37.0 - 47.0) MCV 89.4 fL (81.0 - 101) MCH 31.1 pg (27.0 - 34.0) MCHC 34.8 g/dL (31.0 - 36.0) RDW 12.2 % (11.5 - 14.5) PLATELETS 392 10/uL (150 - 450) MPV 9.8 fL (7.4 - 10.4) NEUT 81.1 H % (37.0 - 80.0) LYMPH 10.7 L % (25.0 - 40.0) MONO 7.6 % (3.0 - 8.0) EOS 0.1 % (0.0 - 7.0) BASO 0.1 % (0.0 - 2.5) %IG 0.4 H % (0.0 - 0.0) %NRBC 0.0 % (0.0 - 0.0) #NEUT 12.10 H 10/uL (2.00 - 6.90) #LYMPH 1.59 10/uL (0.60 - 3.40) #MONO 1.13 H 10/uL (0.00 - 0.90) #EOS 0.01 10/uL (0.00 - 0.70) #BASO 0.02 10/uL (0.00 - 0.20) #IG 0.06 10/uL (0.00 - 0.10) #NRBC 0.00 10/uL (0.00 - 0.00) MANUAL DIFF SEE BELOW SEGS 76 % (37 - 80) %LYMPH 16 L % (25 - 40) %MONO 8 % (3 - 8) RBC MORPH MORPH IS NORMALCMP: (ANGELY: 12/26/2019 11:10) ( MsgRcvd 12/26/2019 12:03) Final results Test Result Flag Units (Reference) COMPREHENSIVE METABOLIC PANEL COMPREHENSIVE METABOLIC PANEL SODIUM 134 mEq/L (134 - 153) POTASSIUM 2.9 LL mEq/L (3.6 - 5.0) CALL/ READ BACK CALLED TO RUSTY BY: OSMANI DATE/TIME 12/26/19 @ [id number] Clinic al Report - Physicians/Mid Levels [facility] Emergency Department [address] [place] [address] Phone #: ext- [phone] 12/26/2019 10:40 Patient: NATALIYA BEASLEY Sex: F : 1995 Age: 24y CHLORIDE 82 L mEq/L (98 - 107) CO2 28 MEQ/L (22 - 30) GLUCOSE 120 H MG/DL (65 - 110) BUN 19 MG/DL (7 - 21) CREATININE 0.9 MG/DL (0.7 - 1.5) BUN/CREAT 21 (8 - 27) TOTAL PROTEIN 8.1 G/DL (6.3 - 8.2) ALBUMIN 5.5 H G/DL (3.9 - 5.0) GLOBULIN 2.6 GM/DL (2.4 - 3.2) A/G RATIO 2.1 H (0.8 - 2.0) CALCIUM 10.6 H MG/DL (8.4 - 10.2) TOTAL BILI 1.6 H MG/DL (0.2 - 1.3) ALKALINE PHOS 68 U/L (38 - 126) SGOT/AST 19 U/L (5 - 40) SGPT/ALT 19 U/L (7 - 56) ANION GAP 24.0 H mmol/L (8.0 - 16.0) AGE 24 yrs NON-AA GFR >60 mL/min AFR AMER GFR >60 mL/min Male GFR Interprentation 20-49 yrs >60 mL/min Ezmzjt20-56 yrs >56 mL/min Normal 60-69 yrs >49 mL/min Normal 70-79yrs>42 mL/min Normal 80 and above >35 mL/min Normal Female GFRInterpretation 20-39 yrs >60 mL/min Normal 40-49 yrs >58 mL/minNormal 50-59 yrs >51 mL/min Normal 60-69 yrs >45 mL/min Xgeclb45- 79 yrs >39 mL/min Normal 80 and above >32 mL/min NormalUrinalysis: (ANGELY: 12/26/2019 13:00) ( [facility] 12/26/2019 14:21) Final results Test Result Flag Units (Reference) URINALYSIS URINALYSIS SOURCE R COLOR yellow (NORMAL: Yello SPEC GRAVITY 1.010 (1.001 - 1.030 pH 8 (5 - 9) GLUCOSE NORM (NORMAL: Negat BILIRUBIN NEG (NORMAL: Negat KETONE 15 A (NORMAL: Negat PROTEIN 15 (NORMAL: Negat NITRITE NEG (NORMAL: Negat BLOOD NEG (NORMAL: Negat LEUK EST 25 (NORMAL: Negat UROBILINOGEN 1 (less than 1.0 MICROSCOPIC See Below WBC 3 - 5 (NORMAL: NONE RBC 0 - 1 (NORMAL: NONE EPITHELIAL MANY A (NORMAL: NONE BACTERIA Trace (NORMAL: NONE MUCOUS 2+ A (NORMAL: NONE CASTS See Below HYALINE CAST 1-3 A (NORMAL: NoneBeta-HCG, Qual Urine: (ANGELY: 12/26/2019 13:00) ( [facility] 12/26/2019 14:22) Final results Test Result Flag Units (Reference) HCG URINE QUAL NEGATIVE (NORMAL: NEGAT HCG URINE QL REENTER NEGATIVE (NORMAL: NEGAT { KIT LOT # [id number] ){ KIT EXP DATE02.27.21 ){ PROCEDURAL CONTROL VALID) 5 Clinical Report - Physicians/Mid Levels [facility] Emergency Department [address] [place] [address] Phone #: ext- [phone] 12/26/2019 10:40 Patient: NATALIYA BEASLEY Sex: F : 1995 Age: 24y Troponin-T: (ANGELY: 12/26/2019 11:10) ( [facility] 12/26/2019 11:48) Final results Test Result Flag Units (Reference) TROPONIN T <0.01 NG/ML (0.00 - 0.10) TROPONIN T0.1 ng/ml Recommended as the clinical threshold value forTroponin T. Magnesium: (ANGELY: 12/26/2019 11:10) ( AkgRcvd 12/26/2019 12:04) Final results Test Result Flag Units (Reference) MAGNESIUM 1.5 L MG/DL (1.7 - 2.2) EKG: (ANGELY: 12/26/2019 11:03) ( AkgRcvd 12/26/2019 14:34) In Progress.PROGRESS AND PROCEDURESCourse of Care: 15:Dec 26 2019. Evaluation after observation and results of tests back. (Sherrie CASIANO RADIO ENGINEER and she will admit pt to obs to correct K. Pt is agreeable with dx and tx plan.). Patient counseled in person regarding the patient's stable but serious condition, test results, diagnosis and need for admission. Patient agrees with plan of care. 15:Dec 26 2019. Disposition: Observation in the Acute Inpatient Unit, Monitored. 15:Dec 26 2019 Sarah CASIANO RADIO ENGINEER. UTI (catheter associated) was not present prior to being placed in observation. Pressure ulcer was not present prior to being placed in observation. Vascular infection (catheter associated)n was not present prior to being placed in observation. Surgical site infection was not present prior to being placed in observation. An object left in surgery was not present prior to being placed in observation. Blood incompatibility was not present prior to being placed in observation. Air embolism was not present prior to being placed in observation.CLINICAL IMPRESSION Hypokalemia.(Electronically signed by EDUARDO Moses 12/26/2019 21:44) Name Value Range Interpretation Code Description Data Michelle rce(s) Supporting Document(s) ID Date Data Source [id number] 12/26/2019 04:05:00 PM EDT [facility] Name Value Range Interpretation Code Description Data Michelle rce(s) Supporting Document(s) BASIC METABOLIC PANEL [facility] BASIC METABOLIC PANEL Sodium [Moles/volume] in Serum or Plasma 134 mEq/L 134 - 153 [facility] Potassium [Moles/volume] in Serum or Plasma 3.0 mEq/L 3.6 - 5.0 L [facility] Chloride [Moles/volume] in Serum or Plasma 88 mEq/L 98 - 107 L [facility] Carbon dioxide, total [Moles/volume] in Serum or Plasma 29 MEQ/L 22 - 30 [facility] Glucose [Mass/volume] in Serum or Plasma 106 MG/DL 65 - 110 [facility] BUN 14 MG/DL 7 - 21 [facility] al Creatinine [Mass/volume] in Serum or Plasma 0.8 MG/DL 0.7 - 1.5 [facility] BUN/CREAT 18 8 - 27 [facility] Calcium [Mass/volume] in Serum or Plasma 9.7 MG/DL 8.4 - 10.2 [facility] Anion gap 3 in Serum or Plasma 17.0 mmol/L 8.0 - 16.0 H [facility] AGE 24 yrs [facility] al AFR AMER GFR >60 mL/min [facility] Ho spital NON-AA GFR >60 mL/min [facility] ital Male GFR Inter prentation 20-49 yrs >60 mL/min Normal 50-59 yrs >56 mL/min Normal 60-69 yrs >49 mL/min Normal 70-79yrs >42 mL/min Normal 80 and above >35 mL/min Normal Female GFR Interpretation 20-39 yrs >60 mL/min Normal 40-49 yrs >58 mL/min Normal 50-59 yrs >51 mL/min Normal 60-69 yrs >45 mL/min Normal 70-79 yrs >39 mL/min Normal 80 and above >32 mL/min Normal ID Date Data Source [id number] 12/26/2019 02:24:00 PM EDT [facility] Name Value Range Interpretation Code Description Data Michelle rce(s) Supporting Document(s) COMPREHENSIVE METABOLIC PANEL [facility] COMPREHENSIVE METABOLIC PANEL Sodium [Moles/volume] in Serum or Plasma 132 mEq/L 134 - 153 L [facility] Potassium [Moles/volume] in Serum or Plasma 2.9 mEq/L 3.6 - 5.0 LL [facility] CALL/ READ BACK NIK [employer]PERATIONS SUPERVISOR [facility] BY: LINDA [facility] al DATE/TIME [id number] [facility] Chloride [Moles/volume] in Serum or Plasma 86 mEq/L 98 - 107 L [facility] Carbon dioxide, total [Moles/volume] in Serum or Plasma 27 MEQ/L 22 - 30 [facility] Glucose [Mass/volume] in Serum or Plasma 118 MG/DL 65 - 110 H [facility] BUN 15 MG/DL 7 - 21 [facility] al Creatinine [Mass/volume] in Serum or Plasma 0.7 MG/DL 0.7 - 1.5 [facility] BUN/CREAT 21 8 - 27 [facility] al Protein [Mass/volume] in Serum or Plasma 7.7 G/DL 6.3 - 8.2 [facility] Albumin [Mass/volume] in Serum or Plasma 5.0 G/DL 3.9 - 5.0 [facility] Globulin [Mass/volume] in Serum by calculation 2.7 GM/DL 2.4 - 3.2 [facility] A/G RATIO 1.9 0.8 - 2.0 [facility] Calcium [Mass/volume] in Serum or Plasma 10.2 MG/DL 8.4 - 10.2 [facility] Bilirubin.total [Mass/volume] in Serum or Plasma 1.4 MG/DL 0.2 - 1.3 H [facility] Alkaline phosphatase [Enzymatic activity/volume] in Serum or Plasma 63 U/L 38 - 126 [facility] Aspartate aminotransferase [Enzymatic activity/volume] in Serum or Plasma 16 U/L 5 - 40 [facility] Alanine aminotransferase [Enzymatic activity/volume] in Seru m or Plasma 16 U/L 7 - 56 [facility] Anion gap 3 in Serum or Plasma 19.0 mmol/L 8.0 - 16.0 H [facility] 24 [facility] >60 mL/min [facility] ital AFR AMER GFR >60 mL/min [facility] spital Male GFR In terprentation 20-49 yrs >60 mL/min Normal 50-59 yrs >56 mL/min Normal 60-69 yrs >49 mL/min Normal 70-79yrs >42 mL/min Normal 80 and above >35 mL/min Normal Female GFR Interpretation 20-39 yrs >60 mL/min Normal 40-49 yrs >58 mL/min Normal 50-59 yrs >51 mL/min Normal 60-69 yrs >45 mL/min Normal 70-79 yrs >39 mL/min Normal 80 and above >32 mL/min Normal ID Date Data Source [id number] 12/26/2019 03:36:00 PM EDT [facility] Name Value Range Interpretation Code Description Data Michelle rce(s) Supporting Document(s) [facility] S[facility] R [facility] COLOR yellow NORMAL: Yellow [facility] CLARITY Clear NORMAL: Clear [facility] sp[facility] Specific gravity of Urine by Test strip 1.010 1.001 - 1.030 [facility] pH 8 5 - 9 [facility] al Glucose [Mass/volume] in Urine by Test strip NORM NORMAL: Negat [facility] Bilirubin.total [Presence] in Urine by Test strip NEG NORMAL: Negative [facility] Ketones [Presence] in Urine by Test strip 15 NORMAL: Negative [facility] Protein [Mass/volume] in Urine by Test strip 15 NORMAL: Negat [facility] Nitrite [Presence] in Urine by Test strip NEG NORMAL: Negative [facility] BLOOD NEG NORMAL: Negative [facility] Leukocyte esterase [Presence] in Urine by Test strip 25 DAYLIN L: Negative [facility] Urobilinogen [Mass/volume] in Urine by Test strip 1 less tito n 1.0 mg/dL [facility] MICROSCOPIC See Below [facility] ital WBC 3 - 5 NORMAL: NONE SEEN [facility] Erythrocytes [#/volume] in Urine by Test strip 0 - 1 NORMAL: NON E SEEN [facility] EPITHELIAL MANY NORMAL: NONE SEEN A [facility] Bacteria [Presence] in Urine sediment by Light microscopy Tr laura NORMAL: NONE SEEN [facility] Mucus [Presence] in Urine sediment by Light microscopy 2+ NOR MAL: NONE SEEN A [facility] Casts [#/area] in Urine sediment by Microscopy low power field See Be low [facility] Hyaline casts [#/area] in Urine sediment by Microscopy low p ower field 1-3 NORMAL: None Seen A [facility] ID Date Data Source [id number] 12/26/2019 02:21:00 PM EDT [facility] Name Value Range Interpretation Code Description Data Michelle rce(s) Supporting Document(s) HCG URINE QUAL NEGATIVE NORMAL: NEGATIVE [facility] HCG URINE QL REENTER NEGATIVE NORMAL: NEGATIVE [facility] { KIT LOT # [id number] ){ KIT EXP DATE 02.27.21 ){ PROCEDURAL CONTROL VALID ) ID Date Data Source [id number] 12/26/2019 05:19:00 PM EDT [facility] Name Value Range Interpretation Code Description Data Michelle rce(s) Supporting Document(s) Folate [Mass/volume] in Serum or Plasma 14.6 NG/ML 5.0 - 27.2 [facility] ID Date Data Source [id number] 12/26/2019 12:03:00 PM EDT [facility] Name Value Range Interpretation Code Description Data Michelle rce(s) Supporting Document(s) Magnesium [Mass/volume] in Serum or Plasma 1.5 MG/DL 1.7 - 2.2 L [facility] ID Date Data Source [id number] 12/26/2019 12:01:00 PM EDT [facility] Name Value Range Interpretation Code Description Data Michelle rce(s) Supporting Document(s) COMPREHENSIVE METABOLIC PANEL [facility] COMPREHENSIVE METABOLIC PANEL Sodium [Moles/volume] in Serum or Plasma 134 mEq/L 134 - 153 [facility] Potassium [Moles/volume] in Serum or Plasma 2.9 mEq/L 3.6 - 5.0 LL [facility] CALL/ READ BACK CALLED TO [employer] BY: OSMANI [facility] al DATE/TIME 12/26/19 @ 54567 [facility] Chloride [Moles/volume] in Serum or Plasma 82 mEq/L 98 - 107 L [facility] Carbon dioxide, total [Moles/volume] in Serum or Plasma 28 MEQ/L 22 - 30 [facility] Glucose [Mass/volume] in Serum or Plasma 120 MG/DL 65 - 110 H [facility] BUN 19 MG/DL 7 - 21 [facility] Creatinine [Mass/volume] in Serum or Plasma 0.9 MG/DL 0.7 - 1.5 [facility] BUN/CREAT 21 8 - 27 [facility] al Protein [Mass/volume] in Serum or Plasma 8.1 G/DL 6.3 - 8.2 [facility] Albumin [Mass/volume] in Serum or Plasma 5.5 G/DL 3.9 - 5.0 H [facility] Globulin [Mass/volume] in Serum by calculation 2.6 GM/DL 2.4 - 3.2 [facility] A/G RATIO 2.1 0.8 - 2.0 H [facility] Calcium [Mass/volume] in Serum or Plasma 10.6 MG/DL 8.4 - 10.2 H [facility] Bilirubin.total [Mass/volume] in Serum or Plasma 1.6 MG/DL 0.2 - 1.3 H [facility] Alkaline phosphatase [Enzymatic activity/volume] in Serum or Plasma 68 U/L 38 - 126 [facility] Aspartate aminotransferase [Enzymatic activity/volume] in Serum or Plasma 19 U/L 5 - 40 [facility] Alanine aminotransferase [Enzymatic activity/volume] in Seru m or Plasma 19 U/L 7 - 56 [facility] Anion gap 3 in Serum or Plasma 24.0 mmol/L 8.0 - 16.0 H [facility] AGE 24 yrs [facility] al NON-AA GFR >60 mL/min [facility] ital AFR AMER GFR >60 mL/min [facility] Ho spital Male GFR In terprentation 20-49 yrs >60 mL/min Normal 50-59 yrs >56 mL/min Normal 60-69 yrs >49 mL/min Normal 70-79yrs >42 mL/min Normal 80 and above >35 mL/min Normal Female GFR Interpretation 20-39 yrs >60 mL/min Normal 40-49 yrs >58 mL/min Normal 50-59 yrs >51 mL/min Normal 60-69 yrs >45 mL/min Normal 70-79 yrs >39 mL/min Normal 80 and above >32 mL/min Normal ID Date Data Source [id number] 12/26/2019 11:49:00 AM EDT [facility] Name Value Range Interpretation Code Description Data Michelle rce(s) Supporting Document(s) CBC W/AUTOMATED DIFF [facility] COMPLETE BLOOD COUNT Leukocytes [#/volume] in Blood by Automated count 14.9 10^3/uL 4.2 - 11.0 H [facility] Erythrocytes [#/volume] in Blood by Automated count 5.08 10^6/uL 4. 20 - 5.40 [facility] Hemoglobin [Mass/volume] in Blood 15.8 g/dL 12.0 - 16.0 [facility] Hematocrit [Volume Fraction] of Blood by Automated count 45.4 % 3 7.0 - 47.0 [facility] Erythrocyte mean corpuscular volume [Entitic volume] by Auto mated count 89.4 fL 81.0 - 101 [facility] Erythrocyte mean corpuscular hemoglobin [Entitic mass] by Automated count 31.1 pg 27.0 - 34.0 [facility] Erythrocyte mean corpuscular hemoglobin concentration [Mass/volume] by Automated count 34.8 g/dL 31.0 - 36.0 [facility] Erythrocyte distribution width [Ratio] by Automated count 12.2 % 11.5 - 14.5 [facility] Platelets [#/volume] in Blood by Automated count 392 10^3/uL 150 - 45 0 [facility] Platelet mean volume [Entitic volume] in Blood by Automated count 9.8 fL 7.4 - 10.4 [facility] Neutrophils/100 leukocytes in Blood by Automated count 81.1 % 37. 0 - 80.0 H [facility] Lymphocytes/100 leukocytes in Blood by Manual count 10.7 % 25.0 - 40.0 L [facility] Monocytes/100 leukocytes in Blood by Automated count 7.6 % 3.0 - 8.0 [facility] Eosinophils/100 leukocytes in Blood by Automated count 0.1 % 0.0 - 7.0 [facility] Basophils/100 leukocytes in Blood by Automated count 0.1 % 0.0 - 2.5 [facility] %IG 0.4 % 0.0 - 0.0 [facility] 0.[facility] % 0.0 - 0.0 [facility] al Neutrophils [#/volume] in Blood by Automated count 12.10 10^3/uL 2. 00 - 6.90 H [facility] Lymphocytes [#/volume] in Blood by Automated count 1.59 10^3/uL 0.60 - 3.40 [facility] Monocytes [#/volume] in Blood by Automated count 1.13 10^3/uL 0.00 - 0.90 H [facility] Eosinophils [#/volume] in Blood by Automated count 0.01 10^3/uL 0.00 - 0.70 [facility] Basophils [#/volume] in Blood by Automated count 0.02 10^3/uL 0.00 - 0.20 [facility] #IG 0.06 10^3/uL 0.00 - 0.10 [facility] H ospital #NRBC 0.00 10^3/uL 0.00 - 0.00 [facility] ospital MANUAL DIFF SEE BELOW [facility] ital Segmented neutrophils/100 leukocytes in Blood by Manual count 76 % 37 - 80 [facility] %LYMPH 16 % 25 - 40 L [facility] %MONO 8 % 3 - 8 [facility] RBC MORPH MORPH IS NORMAL [facility] ID Date Data Source [id number] 12/26/2019 11:48:00 AM EDT [facility] Name Value Range Interpretation Code Description Data Michelle rce(s) Supporting Document(s) TROPONIN T <0.01 NG/ML 0.00 - 0.10 [facility] ospital TROPONIN T0.1 ng/ml Recommended as the c linical threshold value forTroponin T. ID Date Data Source [id number] 12/12/2019 12:03:00 PM EDT [facility] [address] [place] [address] PHONE: [phone] FAX: [phone] Name .................. : RITTER NATALIYA Martinez Acct Number.................. : [id number] ROOM. ................. : 100-1 Number ................... : [id number] Stay type ............. : O/P Discharge Date......... ... : Admit Date ......... : 12/09/19 Admit Phys .................... : MULLER HARD Date of ....... : 1995 Family Phys ................... : COLLAZO SCOT Phone .......... ........ : [phone] Age ................................ : 24 Film# .................. .:[id number] Sex ................................. : F Unsigned transcriptions are preliminary reports and do not represent a medical or legal document HEPATIC [id number] COMPLETE:12/09/19 14:38 [facility] [id number] Reason(s): Nausea w Vomiting HEPATIC ULTRASOUND: COMPARISON: CT scan from 11/24/19. FINDINGS: The liver has a normal-appearing echotexture without focal lesion. There is no biliary ductal dilatation. The common bile duct is within normal limits in size measuring 0.3 cm. The gallbladder has no calculi, wall thickening or pericholecystic fluid. The pancreatic tail is not well- visualized due to bowel gas shadowing, but the remainder appears unremarkable. The right kidney measures about 11.4 cm and appears unremarkable. IMPRESSION: Pancreatic tail not well visualized, but otherwise unremarkable right upper kathy drant ultrasound. Electronically Reviewed and Signed By Rafiq Sparrow MD , 12/12/19 12:03, TDS Transcribe Initials: FAHAD , Transcribe Date: 12/09/19 23:21, Dictation Date: Copy for: LADI SHIELDSNAMDE via fax Copy for: EMERGENCY DEPT via modem Copy for: 710 MED REC DISCHARGED Page 1 of 1 Name Value Range Interpretation Code Description Data Michelle rce(s) Supporting Document(s) ID Date Data Source [id number] 12/12/2019 10:57:00 AM EDT [facility] [address] [place] [address] PHONE: [phone] FAX: [phone] Name .................. : RITTER NATALIYA Martinez Acct Number.................. : [id number] ROOM. ................. : 100-1 MR Number ................... : [id number] Stay type ............. : O/P Discharge Date......... ... : Admit Date ......... : 12/09/19 Admit Phys .................... : MULLER HARD Date of ....... : 1995 Family Phys ................... : [employer] Phone .................. : [phone] Age ................................ : 24 Film# .................. .:[id number] Sex ................................. : F Unsigned transcriptions are preliminary reports and do not represent a medical or legal document CT ABD & PELVIS W/ IV ONLY [id number] COMPLETE:12/09/19 16:05 RLB [id number] Reason(s): Abdominal Pain CT OF THE ABDOMEN AND PELVIS WITH CONTRAST: HISTORY: Abdominal pain COMPARISON: 11/24/19 FINDINGS: Lung bases: Clear. Liver: Normal contour and attenuation without focal lesion. Patent portal and hepatic veins. Biliary system: Normal gallbladder. No biliary dilatation. Pancreas: Normal. Spleen: Normal. Adrenal glands: Normal. Kidneys: Symmetric enhancement with normal contour. No mass, stone or hydronephrosis. Urinary bladder: Normal. Pelvic organs: Normal. Bowel: No evidence of obstruction. Normal caliber. No wall thickening or edema. Mild uncomplicated sigmoid diverticulosis. Peritoneum: No free air. No ascites. Lung lacey: No adenopathy. Page 1 of 2 [facility] [address] [place] [address] PHONE: [phone] FAX: [phone] Name .................. : RITTER AN Juan Acct Number.................. : [id number] ROOM. ................. : 100 MR Number ................... : [id number] Stay type ............. : O/P Discharge Date......... ... : Admit Date ......... : 12/09/19 Admit Phys .................... : MULLER HARD Date of ....... : 1995 Family Phys ................... : [employer] Phone .................. : [phone] Age ................................ : 24 Film# .................. .:[id number] Sex ................................. : F Unsigned transcriptions are preliminary reports and do not represent a medical or legal document CT ABD & PELVIS W/ IV ONLY [id number] COMPLETE:12/09/19 16:05 RLB 80609 Reason(s): Abdominal Pain Vessels: Normal abdominal aorta and inferior vena cava. Abdominal wall: No hernia. Bones: No acute or suspicious osseous abnormality. IMPRESSION: Negative examination. No acute findings in the abdomen or pelvis. While performing the above CT examination, radiation dose reduction was accomplished utilizing automated exposure control, adjusting of the mA and kV based on the patient's body size and/or the use of imperative reconstructive techniques. CT dose: 498.7 mGycm Contrast agent in mL: 75 Isovue 370 Method of administration: Intravenous Electronically Reviewed and Signed By Norbert Al MD , 12/12/19 10:57, APM Transcribe Initials: FAHAD , Transcribe Date: 12/10/19 02:48, Dictation Date: Copy for: LADI PARDO via fax Copy for: EMERGENCY DEPT via modem Copy for: 710 MED REC DISCHARGED Page 2 of 2 Name Value Range Interpretation Code Description Data Michelle rce(s) Supporting Document(s) ID Date Data Source [id number] 12/12/2019 10:55:00 [place] [address] PHONE: [phone] FAX: [phone] Name .................. : RITTER NATALIYA Martinez Acct Number.................. : [id number] ROOM. ................. : 100-1 Number ................... : [id number] Stay type ............. : O/P Discharge Date......... ... : Admit Date ......... : 12/09/19 Admit Phys .................... : RENZO HARD Date of ....... : 1995 Family Phys ................... : COLLAZO SCOT Phone .......... ........ : [phone] Age ................................ : 24 Film# .................. .:[id number] Sex ................................. : F Unsigned transcriptions are preliminary reports and do not represent a medical or legal document CHEST 2 VIEWS [id number] COMPLETE:12/09/19 16:01 ARS 34724 Reason(s): upper abd pain CHEST X-RAY: PA AND LATERAL VIEWS HISTORY: Upper abdominal pain. COMPARISON: None. FINDINGS: Normal cardiomediastinal silhouette and pulmonary vessels. Clear lungs without pleural effusion. No acute osseous abnormality. S-shaped thoracolumbar scoliosis. IMPRESSION: No active disease is seen in the chest. Electronically Reviewed and Signed By Norbert Al MD , 12/12/19 10:55, APM Transcribe Initials: FAHAD , Transcribe Date: 12/09/19 21:25, Dictation Date: Copy for: LADI PARDO via fax Copy for: EMERGENCY DEPT via modem Copy for: 710 MED REC DISCHARGED Page 1 of 1 Name Value Range Interpretation Code Description Data Michelle rce(s) Supporting Document(s) ID Date Data Source [id number] 12/11/2019 03:11:00 PM EDT [facility] Name Value Range Interpretation Code Description Data Michelle rce(s) Supporting Document(s) Potassium [Moles/volume] in Serum or Plasma 3.5 mEq/L 3.6 - 5.0 L [facility] ID Date Data Source [id number] 12/11/2019 11:52:00 AM EDT [facility] Name Value Range Interpretation Code Description Data Michelle rce(s) Supporting Document(s) Potassium [Moles/volume] in Serum or Plasma 3.3 mEq/L 3.6 - 5.0 L [facility] ID Date Data Source [id number] 12/11/2019 10:11:00 AM EDT [facility] Name Value Range Interpretation Code Description Data Michelle rce(s) Supporting Document(s) Folate [Mass/volume] in Serum or Plasma 11.2 NG/ML 5.0 - 27.2 [facility] ID Date Data Source [id number] 12/11/2019 08:22:00 AM T [facility] Name Value Range Interpretation Code Description Data Michelle rce(s) Supporting Document(s) Magnesium [Mass/volume] in Serum or Plasma 1.7 MG/DL 1.7 - 2.2 [facility] ID Date Data Source [id number] 12/11/2019 07:46:00 AM EDT [facility] Name Value Range Interpretation Code Description Data Michelle rce(s) Supporting Document(s) CBC W/AUTOMATED DIFF [facility] COMPLETE BLOOD COUNT Leukocytes [#/volume] in Blood by Automated count 6.2 10^3/uL 4.2 - 1 1.0 [facility] Erythrocytes [#/volume] in Blood by Automated count 3.94 10^6/uL 4. 20 - 5.40 L [facility] Hemoglobin [Mass/volume] in Blood 12.3 g/dL 12.0 - 16.0 [facility] Hematocrit [Volume Fraction] of Blood by Automated count 36.9 % 3 7.0 - 47.0 L [facility] Erythrocyte mean corpuscular volume [Entitic volume] by Auto mated count 93.7 fL 81.0 - 101 [facility] Erythrocyte mean corpuscular hemoglobin [Entitic mass] by Automated count 31.2 pg 27.0 - 34.0 [facility] Erythrocyte mean corpuscular hemoglobin concentration [Mass/volume] by Automated count 33.3 g/dL 31.0 - 36.0 [facility] Erythrocyte distribution width [Ratio] by Automated count 12.4 % 11.5 - 14.5 [facility] Platelets [#/volume] in Blood by Automated count 178 10^3/uL 150 - 45 0 [facility] Platelet mean volume [Entitic volume] in Blood by Automated count 10.0 fL 7.4 - 10.4 [facility] Neutrophils/100 leukocytes in Blood by Automated count 54.4 % 37. 0 - 80.0 [facility] Lymphocytes/100 leukocytes in Blood by Manual count 38.0 % 25.0 - 40.0 [facility] Monocytes/100 leukocytes in Blood by Automated count 6.0 % 3.0 - 8.0 [facility] Eosinophils/100 leukocytes in Blood by Automated count 1.0 % 0.0 - 7.0 [facility] Basophils/100 leukocytes in Blood by Automated count 0.3 % 0.0 - 2.5 [facility] %IG 0.3 % 0.0 - 0.0 [facility] %[facility] 0.0 % 0.0 - 0.0 [facility] al Neutrophils [#/volume] in Blood by Automated count 3.36 10^3/uL 2.00 - 6.90 [facility] Lymphocytes [#/volume] in Blood by Automated count 2.35 10^3/uL 0.60 - 3.40 [facility] Monocytes [#/volume] in Blood by Automated count 0.37 10^3/uL 0.00 - 0.90 [facility] Eosinophils [#/volume] in Blood by Automated count 0.06 10^3/uL 0.00 - 0.70 [facility] Basophils [#/volume] in Blood by Automated count 0.02 10^3/uL 0.00 - 0.20 [facility] #IG 0.02 10^3/uL 0.00 - 0.10 [facility] H ospital #NRBC 0.00 10^3/uL 0.00 - 0.00 [facility] MANUAL DIFF NOT INDICATED [facility] RBC MORPH NOT INDICATED [facility] spital ID Date Data Source [id number] 12/11/2019 07:44:00 AM EDT [facility] Name Value Range Interpretation Code Description Data Michelle rce(s) Supporting Document(s) COMPREHENSIVE METABOLIC PANEL [facility] COMPREHENSIVE METABOLIC PANEL Sodium [Moles/volume] in Serum or Plasma 140 mEq/L 134 - 153 [facility] Potassium [Moles/volume] in Serum or Plasma 3.0 mEq/L 3.6 - 5.0 L [facility] Chloride [Moles/volume] in Serum or Plasma 105 mEq/L 98 - 107 [facility] Carbon dioxide, total [Moles/volume] in Serum or Plasma 26 MEQ/L 22 - 30 [facility] Glucose [Mass/volume] in Serum or Plasma 89 MG/DL 65 - 110 [facility] BUN 6 MG/DL 7 - 21 L [facility] al Creatinine [Mass/volume] in Serum or Plasma 0.4 MG/DL 0.7 - 1.5 L [facility] BUN/CREAT 15 8 - 27 [facility] Protein [Mass/volume] in Serum or Plasma 5.9 G/DL 6.3 - 8.2 L [facility] Albumin [Mass/volume] in Serum or Plasma 4.0 G/DL 3.9 - 5.0 [facility] Globulin [Mass/volume] in Serum by calculation 1.9 GM/DL 2.4 - 3.2 L [facility] A/G RATIO 2.1 0.8 - 2.0 H [facility] Calcium [Mass/volume] in Serum or Plasma 8.8 MG/DL 8.4 - 10.2 [facility] Bilirubin.total [Mass/volume] in Serum or Plasma 1.1 MG/DL 0.2 - 1.3 [facility] Alkaline phosphatase [Enzymatic activity/volume] in Serum or Plasma 52 U/L 38 - 126 [facility] Aspartate aminotransferase [Enzymatic activity/volume] in Serum or Plasma 31 U/L 5 - 40 [facility] Alanine aminotransferase [Enzymatic activity/volume] in Seru m or Plasma 48 U/L 7 - 56 [facility] Anion gap 3 in Serum or Plasma 9.0 mmol/L 8.0 - 16.0 [facility] AGE 24 yrs [facility] NON-AA GFR >60 mL/min [facility] ital AFR AMER GFR >60 mL/min [facility] spital Male GFR In terprentation 20-49 yrs >60 mL/min Normal 50-59 yrs >56 mL/min Normal 60-69 yrs >49 mL/min Normal 70-79yrs >42 mL/min Normal 80 and above >35 mL/min Normal Female GFR Interpretation 20-39 yrs >60 mL/min Normal 40-49 yrs >58 mL/min Normal 50-59 yrs >51 mL/min Normal 60-69 yrs >45 mL/min Normal 70-79 yrs >39 mL/min Normal 80 and above >32 mL/min Normal ID Date Data Source [id number] 12/09/2019 12:55:00 PM EDT [facility] 1 OrderSheet [facility] Emergency Department [address] [place] [address] Phone #: ext- [phone] 12/09/2019 12:30 Patient: NATALIYA BEASLEY Sex: F : 1995 Age: 24yWEIGHT:58.9 kg (S) HEIGHT:62 inches (S) BMI:23.8ALLERGIES: None, Sulfa AntibioticsCHIEF COMPLAINT: vomitingDIAGNOSIS: HypokalemiaLAB ORDERSOrder Description Priority Entered Acknowledged InitialedUrinalysis (Clean STAT 13:12/09/2019 13:06 Sia Kemp) Alexia Kemp R.N.; R.N. Verbal order per; Imtiaz FRANCO w Diff STAT 13:12/09/2019 14:04 Bernard Patel RN P.A.-C;CMP STAT 13:12/09/2019 14:04 Bernard Patel RN P.A.-C;Lipase STAT 13:12/09/2019 14:04 Bernard Patel RN P.A.-C;PT/INR STAT 13:12/09/2019 14:04 Bernard Patel RN P.A.- C;Magnesium STAT 13:12/09/2019 14:04 Bernard Patel RN P.A.-C;HCG Serum Qual STAT 13:12/09/2019 14:04 Bernadr Patel RN P.A.-C;Troponin-T STAT 13:12/09/2019 14:04 Bernard Patel RN P.A.-C;Urine Drug Screen STAT 13:12/09/2019 13:42 Imtiaz Alvarez R.N. P.A.- C;Monospot STAT 13:12/09/2019 14:04 Bernard Patel RN 2 OrderSheet [facility] Emergency Department [address] [place] [address] Phone #: ext- [phone] 12/09/2019 12:30 -------- Patient: NATALIYA BEASLEY Sex: F : 1995 Age: 24y P.A.-C;DIAGNOSTIC STUDY ORDERSOrder Description Priority Entered Acknowledged InitialedUS Liver STAT 13:12/09/2019 14:04 Bernard(Oxygen?(No)) Imtiaz Patel RN P.A.-C; Reason for Study: Nausea w Vomiting, RUQ PainCT Abd PEL W/ IV STAT 15:12/09/2019 15:46 BernardContrast Only Imtiaz Patel RN(Oxygen?(No)) P.A.-C;(IV?(Yes)) Reason for Study: Abdominal Pain, Nausea, VomitingChest 2 View STAT 15:12/09/2019 15:46 Bernard(Oxygen?(No)) Imtiaz Patel RN P.A.-C; Reason for Study: upper abd painMEDICATION/IV/DRIP/FLUID ORDERSOrder Description Priority Entered Acknowledged InitialedIV NS : Bolus 500 13:26 12/09/2019 14:06 PetermL, then 100 mL/hr Imtiaz Patel RN P.A.-C;Phenergan 25 mg 13:26 12/09/2019 14:07 Peterin 50 mL NS, give Imtiaz Patel RNwide open: 25 mg P.A.-C;(NOW x1, HIGHALERTMEDICATION)Protonix IVPB 40 13:26 12/09/2019 14:24 Petermg with Dextrose Imtiaz Patel RN100 ml spike bag P.A.-C;(D5W)Pepcid IVPB 20 13:26 12/09/2019 14:58 Petermg/50mL (NOW x1, Imtiaz Patel RNInfuse over 30 P.A.-C;minutes.)KCl Liquid PO 40 14:58 12/09/2019 15:01 Petermeq Imtiaz Patel RN P.A.-C;KCl IVPB 10 15:01 12/09/2019 16:02 Petermeq/100mL Imtiaz Patel RN P.A.-C; 3 OrderSheet [facility] Emergency Department [address] [place] [address] Phone #: ext- [phone] 12/09/2019 12:30 Patient: NATALIYA BEASLEY Sex: F : 1995 Age: 24yBenadryl 25 mg IVP 15:33 12/09/2019 15:39 Antonio,X1 dose: 25 mg Imtiaz Galvan R.N.(NOW x1) P.A.-C;GENERAL ORDERSOrder Description Priority Entered Acknowledged InitialedAccucheck 13:12/09/2019 14:22 Bernard Patel RN P.A.-C;NPO 13:12/09/2019 14:04 Bernard Patel RN P.A.-C;Saline Lock 13:12/09/2019 14:04 Bernard Patel RN P.A.-C;EKG 13:12/09/2019 14:04 Bernard Patel RN P.A.-C;Title Investigator 13:12/09/2019 14:04 Bernard(continuous) Imtiaz Patel RN P.A.-C;Pulse oximeter 13:12/09/2019 14:04 Bernard(Continuous) Imtiaz Patel RN P.A.-C;[Electronically signed by Bernard Patel RN (17:12/09/2019)][Electronically signed by Imtiaz España P.A.-C (11:00 12/10/2019)][Electronically locked by Bernard Patel RN (:12/09/2019)] Name Value Range Interpretation Code Description Data Michelle rce(s) Supporting Document(s) ID Date Data Source [id number] 12/09/2019 12:55:00 PM EDT [facility] 1 Medication Reconciliation Report [facility] Emergency Department [address] [place] [address] Phone #: ext- [phone] 12/09/2019 12:30 Patient: NATALIYA BEASLEY Sex: F : 1995 Age: 24yWeight: 58.9 kgHeight/Length: 62 in.BMI: 23.8ALLERGIES: None, Sulfa AntibioticsThe patient's Home Medications are listed below:THE FOLLOWING MEDICATIONS NEED TO BE RECONCILED: Pepcid Oral Promethazine HCl Oral (12.5 mg), prnThe source(s) of the original Home Medication information:Not obtained.The following Medications were given to the patient in the Emergency Department:IV NS IV Fluids bolus 500 mL over 20 minute(s), then 100 mL/hr, administered: 12/09/2019 2:06:00 PMPhenergan [IVPB] IVPB bolus 0, then 25 mg 400 mL/hr, administered: 12/09/2019 2:07:00 PMProtonix [IVPB] IVPB bolus 0, then 40 mg 200 mL/hr, administered: 12/09/2019 2:24:00 PMPepcid [IVPB] IVPB bolus 0, then 20 mg 100 mL/hr, administered: 12/09/2019 2:58:00 PMKCL LIQUID PO PO 40 meq, administered: 12/09/2019 3:01:00 PMBenadryl [IVP] IVP 25 mg diluted in NS 10 mL, administered: 12/09/2019 3:25:00 PMKCL [IVPB] IVPB bolus 0, then 10 meq 100 mL/hr, administered: 12/09/2019 4:02:00 PMThe following Medications were prescribed to the patient:None. Name Value Range Interpretation Code Description Data Michelle rce(s) Supporting Document(s) ID Date Data Source [id number] 12/09/2019 12:55:00 PM EDT [facility] 1 Medication Administration Record [facility] Emergency Department [address] [place] [address] Phone #: ext- [phone] 12/09/2019 12:30 Patient: NATALIYA BEASLEY Sex: F : 1995 Age: 24yWeight: 58.9 kgHeight/Length: 62 inBMI: 23.8ALLERGIES: None, Sulfa Antibiotics Date/Time Medication Administered Medication OrderedStart IV NS IV NS : Bolus 500 mL, then 85995:06 12/09/2019 Dose: IV Fluids mL/hrPeter EASTON Patel Rate: 100 mL/hr over 5 hour(s)---- Bolus: 500 mL over 20 minute(s)Stop Dispensed: 1000 mL bag17:02 12/09/2019 Site: #1 right upper armPeter Dylon Patel PHENERGAN [IVPB] Phenergan 25 mg in 50 mL NS,14:07 12/09/2019 Dose: 25 mg IVPB give wide open: 25 mg (NOW x1,Bernard Patel RN Rate: 400 mL/hr over 15 minute(s) HIGH ALERT MEDICATION)---- Dispensed: 50 mL bagStop Site: #1 right upper arm15:10 12/09/2019Dylon Martinez PROTONIX [IVPB] (PANTOPRAZOLE Protonix IVPB 40 mg with14:24 12/09/2019 SODIUM) Dextrose 100 ml spike bag (D5W)Bernard Patel RN Dose: 40 mg IVPB---- Rate: 200 mL/hr over 30 minute(s)Stop Dispensed: 100 mL bag14:56 12/09/2019 Site: #1 right upper armPeDylon Parsons PEPCID [IVPB] Pepcid IVPB 20 mg/50mL (NOW14:58 12/09/2019 Dose: 20 mg IVPB x1, Infuse over 30 minutes.)Bernard Patel RN Rate: 100 mL/hr over 30 minute(s)---- Dispensed: 50 mL bagStop Site: #1 right upper arm15:41 12/09/2019Jorgito Martinez KCL LIQUID PO KCl Liquid PO 40 meq15:01 12/09/2019 Dose: 40 meq Syrup/Liquid ANDREINAeter Dylon Patel KCL [IVPB] KCl IVPB 10 meq/032sI78:02 12/09/2019 Dose: 10 meq Luigi Patel RN Rate: 100 mL/hr over 1 hour(s)---- Dispensed: 100 mL bagStop Site: #1 right upper arm17:02 12/09/2019Jorgito Martinez BENADRYL [IVP] (DIPHENHYDRAMINE Benadryl 25 mg IVP X1 dose: 2515:25 12/09/2019 HCL) mg (NOW x1)Mandy Alvarez R.N. Dose: 25 mg IVP In: NS 10 mL Site: #1 right upper arm 2 Medication Administration Record [facility] Emergency Department [address] [place] [address] Phone #: ext- [phone] 12/09/2019 12:30 Patient: NATALIYA BEASLEY Sex: F : 1995 Age: 24y Name Value Range Interpretation Code Description Data Michelle rce(s) Supporting Document(s) ID Date Data Source [id number] 12/09/2019 12:55:00 PM EDT [facility] 1 General Instructions [facility] Emergency Department [address] [place] [address] Phone #: ext- [phone] 12/09/2019 12:30 Patient: NATALIYA BEASLEY Sex: F : 1995 Age: 24yHypokalemia ADDITIONAL INFORMATIONHypokalemiaHypokalemia means a low level of potassium in the blood. This most often occurs in people who takewater pills (diuretics). It can also occur because of severe vomiting or diarrhea. You may also have itif you take laxatives for long periods of time. It sometimes happens if you have low magnesium(hypomagnesemia). If you have this, your healthcare provider will treat the low magnesium first.A mild case of hypokalemia usually causes no symptoms. It is only found with blood testing. Moresevere potassium loss causes overall weakness, muscle or abdominal cramps, rapid or irregularheartbeats (heart palpitations), low blood pressure, and muscle weakness.Home care Take any potassium supplements as prescribed. Eat foods rich in potassium. The highest amount is found in avocado, baked potatoes, spinach, cantaloupe, cod, mami but, salmon, and scallops. White, red, or crenshaw beans are also very good sources. A modest amount of potassium is found in orange juice, bananas, carrots, and tomato juice. If you take certain types of diuretics, you will also need to take potassium supplements. If you take a diuretic, discuss potassium supplements with your doctor.Follow-up careFollow up with your healthcare provider for a repeat blood test within the next week, or as advised byour staff.When to seek medical adviceCall your healthcare provider right away if any of the following occur: Increased weakness, fatigue, or muscle cramps Dizziness 2 General Instructions [facility] Emergency Department [address] [place] [address] Phone #: ext- [phone] 12/09/2019 12:30 Patient: NATALIYA BEASLEY Sex: F : 1995 Age: 24yCall 911Call 911 if any of the following occur: Irregular heartbeat, extra beats, or very fast heart rate Loss of con sciousness [id number] [employer] [place] [address]. All rights reserved. This information is not intended as asubstitute for professional medical care. Always follow your healthcare professional's instructions. You have been given the following additional information: Hypokalemia(Electronically signed by Imtiaz España P.A.-C 12/10/2019 11:00) Name Value Range Interpretation Code Description Data Michelle rce(s) Supporting Document(s) ID Date Data Source [id number] 12/09/2019 12:55:00 PM EDT [facility] 1 Clinical Report - Nurses [facility] Emergency Department [address] [place] [address] Phone #: ext- [phone] 12/09/2019 12:30 Patient: NATALIYA BEASLEY Sex: F : 1995 Age: 24yTRIAGEArrived by private vehicle. Historian: patient. Accompanied by family. ( here on Thursday for vomitand it continues today).Acuity: LEVEL 3.Chief Complaint: ABDOMINAL PAIN, NAUSEA and VOMITING.Alert.Onset. (thursday). The patient has had nausea, vomiting and abdominal pain. 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 Sepsis Screen negative. No suspected or confirmed signs ofinfection present. --12:45 12/09/19 Alexia Kemp R.N.12:38 12/09/19. BP: 122/80. MAP: 94. HR: 93. RR: 18. O2 saturation: 100%. Temp: 98.1 F. Pain levelnow: 01/25. --12:45 12/09/19 Alexia Kemp R.N.Weight: 58.9 kg stated. Height/Length: 62 inches Per Patient. BMI: 23.8. --12:38 12/09/19 Alexia Kemp R.N.MedicationsPepcid Oral. --12:40 12/09/19 Alexia Kemp R.N. Promethazine HCl Oral (Tablet 12.5 mg), as needed. --12:41 12/09/19 Alexia Kemp R.N.AllergiesNone. --12:40 12/09/19 Alexia Kemp R.N.Sulfa Antibiotics.(diarrhea) --14:21 12/09/19 Bernard Patel RN.PROBLEMS:Lactose Intolerance. --12:41 12/09/19 Alexia Kemp R.N.Hypomagnesemia. --12:43 12/09/19 Alexia Kemp R.N.Hypokalemia. --13:54 12/09/19 Horace Reed.-CThe following entry was modified by Horace Reed.-C, 13:54 12/09/19Hypokalemia. --12:43 12/09/19 Alexia Kemp R.N..ADDITIONAL SURGERIES:Tube in ears. --12:41 12/09/19 Justo, Alexia, R.N. 2 Clinical Report - Nurses [facility] Emergency Department [address] [place] [address] Phone #: ext- [phone] 12/09/2019 12:30 Patient: NATALIYA BEASLEY Sex: F : 1995 Age: 24y History SOCIAL HX: Never smoker. Regular alcohol use. History of heavy drug use: marijuana. No recent travel. No known contact with a sick individual. The patient was offered HIV testing but declined and hepatitis C testing but declined. The patient has not traveled outside the [place] Infectious disease exposure: No infectious disease exposure. Patient is not a known carrier of tuberculosis, hepatitis, HIV, MRSA or VRE. Patient is not a known carrier of CRE. SELF HARM ASSESSMENT: Self harm assessment was performed. The patient answered "no" to the question(s) "Have you recently felt down, depressed, or hopeless?", "Do you have thoughts of harming or killing yourself?", "Do you have a plan for harming or killing yourself?", "Have you recently had thoughts about harming or killing others?", "Do you have any dangerous items in your possession?", "Have you noticed less interest or pleasure in doing things?", "Are you here because you tried to hurt yourself?" and "Have you ever tried to hurt yourself before today?". ABUSE ASSESSMENT: Abuse assessment. Abuse denied. No suspicion of abuse. No report of abuse. NUTRITIONAL RISK ASSESSMENT: The nutritional risk assessment revealed no deficiencies. FUNCTIONAL ASSESSMENT: Functional assessment: no impairments noted. LEARNING NEEDS ASSESSMENT: The learning needs assessment revealed no barriers. FALL RISK ASSESSMENT: Fall risk assessment completed. No risk factors identified. SKIN INTEGRITY ASSESSMENT: Skin integrity risk assessment completed. No skin integrity risk identified. --12:45 12/09/19 Alexia Kemp R.N. Interventions Identification band on patient. To treatment room. --12:45 12/09/19 Alexia Kemp R.N.PHYSICAL ASSESSMENTAmbulatory to room.GENERAL / NEURO / PSYCH: Alert. Oriented X 4. Appears in pain and in distress.HEENT: Mucous membranes are pink.RESPIRATORY: Respirations not labored. Breath sounds within normal limits.CVS: Normal sinus rhythm noted. Capillary refill less than 2 seconds.GI / : The patient has had nausea. Emesis noted. Abdomen soft. Abdominal tenderness in the rightupper quadrant, epigastric area and left upper quadrant. Bowel sounds within normal limits.SKIN: Skin is warm and dry. --13:06 12/09/19 Bernard Patel RN.NURSING PROGRESS NOTESPatient gowned. Reassurance given. Two patient identifiers checked. Call light placed in reach. Siderails up x 2. Bed placed in lowest position. Brakes of bed on. Patient ready for evaluation- ED physicianhumberto CLARK notified. --13:12/09/19 Alexia Kemp R.N. 3 Clinical Report - Nurses [facility] Emergency Department [address] [place] [address] Phone #: ext- [phone] 12/09/2019 12:30 Patient: NATALIYA BEASLEY Sex: F : 1995 Age: 24y13:13 12/09/2019 Site #1 started via IV in the right upper arm with an 20g angiocath, with aseptictechnique and good blood return; one attempt. Saline lock flushed with 10 mL saline. --13:13 12/09/19Wai Martinez transported to sonogram by wheelchair with veterinary laboratory technician. --13:38 12/09/19 Wai Martinez returned from sonogram by wheelchair with veterinary laboratory technician. --13:58 12/09/19 Bernard Patel RN14:06 12/09/2019 Started bag #1 1000 mL IV Fluids IV NS; bolus of 500 mL over 20 minute(s) then at 100mL/hr over 5 hour(s) via site #1 via IV pump. Allergies verified and confirmed 5 rights. IV patencyestablished. IV site checked: no pain, redness, or swelling. IV flushed thoroughly pre- and post- medicationadministration. Information reviewed with patient including reason for taking this medication. Verbalizesunderstanding. --14:12/09/19 Bernard Patel RN14:12/09/2019 Started 25 mg of Phenergan IVPB in bag #1 50 mL; at 400 mL/hr over 15 minute(s) viasite #1. via IV pump. Allergies verified and confirmed 5 rights. IV patency established. IV site checked: nopain, redness, or swelling. IV flushed thoroughly pre- and post-medication administration. Informationreviewed with patient including reason for taking this medication. Verbalizes understanding. --14: Bernard Patel RN14:12/09/19. BP: 130/89. MAP: 102. HR: 67. RR: 16. O2 saturation: 100%. Pain level now: 12/25.--14:10 12/09/19 Bernard Patel RNEKG time: (14:11 12/09/2019). EKG was performed by a tech and shown to the PA. --14:13 12/09/19Mando ibrahim ER Merchandising Execution Associate( FSBS 107). --14:12/09/19 Bernard Patel RN14:12/09/2019 Started 40 mg of Protonix (Pantoprazole Sodium) IVPB in bag #1 100 mL; at 200 mL/hrover 30 minute(s) via site #1. via IV pump. Allergies verified and confirmed 5 rights. IV patency established.IV site checked: no pain, redness, or swelling. IV flushed thoroughly pre- and post-medicationadministration. Information reviewed with patient including reason for taking this medication. Verbalizesunderstanding. --14:12/09/19 TRACY Martinez:43 12/09/19. BP: 111/74. MAP: 86. HR: 65. RR: 16. O2 saturation: 100%. Pain level now: 510.--14:43 12/09/19 Bernard Patel RNCritical value relayed by [facility] (late entry - 14:50 12/09/2019). Critical value received by Farzad Branham (late entry - 14:50 12/09/2019). K: 2.7. Critical value read back. Verified lab result and patient ID.PA notifed of critical value (Saundra CLARK). --14:52 12/09/19 Mandy Alvarez R.N.14:56 12/09/2019 Protonix IVPB via IV site #1 Discontinued: infused. Total amount infused: 100 mL. IVpatency established. IV site checked: no pain, redness, or swelling. IV flushed thoroughly. --14:56 12/09/19 4 Clinical Report - Nurses [facility] Emergency Department [address] [place] [address] Phone #: ext- [phone] 12/09/2019 12:30 Patient: NATALIYA BEASLEY Sex: F : 1995 Age: 24yPeter TRACY Patel:58 12/09/2019 Started 20 mg of Pepcid IVPB in bag #1 50 mL; at 100 mL/hr over 30 minute(s) via site#1. via IV pump. Allergies verified and confirmed 5 rights. IV patency established. IV site checked: no pain,redness, or swelling. IV flushed thoroughly pre- and post-medication administration. Information reviewedwith patient including reason for taking this medication. Verbalizes understanding. --14:58 12/09/19 EASTON Thomas15:12/09/2019 KCL LIQUID PO PO Syrup/Liquid 40 meq given. Allergies verified and confirmed 5rights. Information reviewed with patient including reason for taking this medication. Verbalizesunderstanding. --15:01 12/09/19 Bernard Patel RN15:10 12/09/2019 Phenergan IVPB via IV site #1 Discontinued: infused. Total amount infused: 50 mL. IVpatency established. IV site checked: no pain, redness, or swelling. IV flushed thoroughly. --14:56 12/09/19Bernard Patel RN( pt resting comfortable at this time, states her pain level has decreased). --15:15 12/09/19 Bernard Patel RN15:15 12/09/19. BP: 110/83. MAP: 92. HR: 72. RR: 16. O2 saturation: 100%. Pain level now: 5/10.--15:15 12/09/19 Bernard Patel RN15:25 12/09/2019 Benadryl (diphenhydrAMINE HCl) IVP 25 mg given diluted in NS 10mL over 4 minute(s)via site #1. Allergies verified and confirmed 5 rights. IV patency established. IV site checked: no pain,redness, or swelling. IV flushed thoroughly pre- and post-medication administration. IVP given by RN.Information reviewed with patient including reason for taking this medication, signs of allergic reaction,precautions and sedative warning. Verbalizes understanding. -- 15:39 12/09/19 Mandy Alvarez RSvetaN.( Pt vomited at bedside, was previously medicated for nausea/vomiting; PA made aware and ptmedicated. Pt left hand cramping, mother rubbing her hand in room). --15:40 12/09/19 Mandy Alvarez R.N.15:41 12/09/2019 Pepcid IVPB via IV site #1 Discontinued: infused. Total amount infused: 50 mL. IVpatency established. IV site checked: no pain, redness, or swelling. IV flushed thoroughly. --15:46 12/09/19DAISY Martinezatiscott transported to radiology and CT by wheelchair with veterinary laboratory technician. --15:47 12/09/19 Bernard Patel RN16:02 12/09/2019 Started 10 meq of KCL IVPB in bag #1 100 mL; at 100 mL/hr over 1 hour(s) via site #1.via IV pump. Allergies verified and confirmed 5 rights. IV patency established. IV site checked: no pain,redness, or swelling. IV flushed thoroughly pre- and post-medication administration. Information reviewedwith patient including reason for taking this medication. Verbalizes understanding. --16:02 12/09/19 EASTON Thomas 5 Clinical Report - Nurses [facility] Emergency Department [address] [place] [address] Phone #: ext- [phone] 12/09/2019 12:30 Patient: [id number] Sex: F : 1995 Age: 24y Patient returned from radiology and CT by wheelchair with veterinary laboratory technician. --16:02 12/09/19 Bernard Patel RN 16:05 12/09/19. BP: 119/65. MAP: 83. HR: 64. RR: 16. O2 saturation: 99%. Pain level now: 09/24. --16:06 12/09/19 Bernard Patel RN 17:02 12/09/2019 IV Fluids IV NS via IV site #1 Discontinued: STOPPED upon admission. Total amount infused: 650 mL. IV patency established. IV site checked: no pain, redness, or swelling. IV flushed thoroughly. --17:02 12/09/19 Bernard Patel RN 17:02 12/09/2019 KCL IVPB via IV site #1 Discontinued: infused. Total amount infused: 100 mL. IV patency established. IV site checked: no pain, redness, or swelling. IV flushed thoroughly. --17:02 12/09/19 Bernard Patel RN.DISPOSITION / DISCHARGE Disposition: observation for further evaluation, cardiac monitoring and IV fluids. Report was given to a nurse via a phone call and visit overview. Report included information regarding patient's care, treatment and condition including: recent changes, current vital signs and critical or abnormal labs. Report included treatment information regarding medications given or pending; type and amount of IV fluids and medications infusing and total volume infused. All questions were answered. Report was acknowledged and care was transferred. (Viky MCCORMACK). Bed obtained and ready (rm 100). --16:51 12/09/19 Bernard Patel RN 16:49 12/09/19. BP: 126/80. MAP: 95. HR: 70. RR: 16. O2 saturation: 100% on room air. Temp: 98.7 F (oral). Pain level now: 09/24. --16:51 12/09/19 Bernard Patel RN Departure time: 17:02 12/09/2019. --17:02 12/09/19 Bernard Patel RN.Locked/Released at 12/09/2019 17:07 by Bernard Patel RN Name Value Range Interpretation Code Description Data Michelle rce(s) Supporting Document(s) ID Date Data Source [id number] 12/09/2019 12:55:00 PM EDT [facility] 1 Clinical Report - Physicians/Mid Levels [facility] Emergency Department [address] [place] [address] Phone #: ext- [phone] 12/09/2019 12:30 Patient: NATALIYA BEASLEY Sex: F : 1995 Age: 24y Time Seen: 13:18 12/09/2019; initial patient contact, initial documentation. Arrived- By private vehicle. Historian- patient.HISTORY OF PRESENT ILLNESS Chief Complaint: VOMITING. This started about 2 days ago and is still present. No recent travel. She has had nausea, vomiting and abdominal pain. No constipation or flank pain. The illness is described as moderate. (Pt presents to e ER with no improvement of N/V. Seen here in [facility] ER 2 days ago w ith same s/s. sts now has upper abd pain/discomfort. Previous workup demos slightly low mag, pt tx'ed and pt had improved. Pt has previously been admited for low potassium.). Similar symptoms previously. Patient has had similar symptoms frequently. Recent medical care: The patient was seen recently at this facility in the emergency department.REVIEW OF SYSTEMSNo fever, muscle aches, difficulty with urination, dark urine or headache. No dizziness, sore throat, cough,difficulty breathing or excessive urination. No skin rash, jaundice, back pain, fainting episodes or blurredvision. Denies current . All other systems reviewed and are negative.PAST HISTORYSee nurses notes. Problems: Gastritis. Ear infection with tubes. Alcoholism. Hypokalemia. Vomiting. Hyponatremia. Hypomagnesemia. Lactose Intolerance. Additional Surgeries: Tube in ears. Medications: Promethazine HCl Oral (Tablet 12.5 mg), as needed. Pepcid Oral. 2 Clinical Report - Physicians/Mid Levels [facility] Emergency Department [address] [place] [address] Phone #: ext- [phone] 12/09/2019 12:30 Patient: NATALIYA BEASLEY Sex: F : 1995 Age: 24y Allergies: None.SOCIAL HISTORYNever smoker. Occasional alcohol use. History of drug use: marijuana.ADDITIONAL NOTESThe nursing notes have been reviewed.PHYSICAL EXAMVital Signs: 12/09/2019 12:38 BP: 122/80. MAP: 94. HR: 93. RR: 18. O2 saturation: 100%. Temp: 98.1 F.Pain level now: 9/10. Have been reviewed. Oxygen saturation normal.Appearance: Alert. Oriented X3. No acute distress. She appears uncomfortable.Eyes: Eyelids appear normal to inspection. Conjunctivae and sclerae appear normal to inspection.Corneas appear normal to in spection. Pupils equal, round and reactive to light. EOMs intact. Periorbitalareas appear normal to inspection. Anterior chambers clear.ENT: Normal ENT inspection. Airway intact. TM's normal. Ears normal. Nose normal. Nares normal.Pharynx normal. Moist mucous membranes. Uvula midline. Voice normal.Neck: Normal inspection. Neck supple.CVS: Normal heart rate and rhythm. No JVD present. Pulses normal. Capillary refill normal. Heartsounds normal. Pulses: right radial 2+; left radial 2+; right dorsalis pedis 2+; left dorsalis pedis 2+; rightposterior tibial 2+; left posterior tibial 2+.Respiratory: Chest normal on inspection. No respiratory distress. Unlabored respirations. Lungs clear.Good chest movement. Breath sounds normal and equal. Chest nontender.Abdomen: Soft. Moderate tenderness in the right upper quadrant, epigastric area and left upper quadrantwith guarding present. Positive Oconnor's sign. No rebound tenderness. Bowel sounds normal. Nodistention.Skin: Skin warm and dry.Extremities: Extremities exhibit normal ROM. No lower extremity edema. No calf tenderness. No lowerextremity edema.Neuro: Awake. Alert. Mood/affect normal. No motor deficit. No sensory deficit.Psych: Cognition normal. Thought process and content normal. Insight and judgement normal.LABS, X-RAYS, AND EKGEKG: Sinus rhythem w/ short IN; nonspecific ST abnormality; prolonged QT; abnormal ECG. Discussed and reviewed with/by attending. Compared previous on . Chest X-ray: (Mikaela hampton Alan - 12/09/2019 3:51:33 PM nad). The X- rays were interpreted by the radiologist. CT Abdomen - Pelvis: Mikaela hampton Alan - 12/09/2019 4:05:21 PM No acute disease. The study was interpreted by the radiologist. 3 Clinical Report - Physicians/Mid Levels [facility] Emergency Department [address] [place] [address] Phone #: ext- [phone] 12/09/2019 12:30 Patient: NATALIYA BEASLEY Sex: F : 1995 Age: 24yAbdominal Sonogram: (Kyara garcía Terence - 12/09/2019 2:08:18 PMpancreatic tail not well seen but o/w neg). The study was interpreted by the radiologist.Laboratory Tests:CT Abd PEL W/ IV Contrast Only: (ANGELY: 12/09/2019 15:02) ( MsgRcvd 12/09/2019 16:05) In ProgressCT ABDReason(s): Abdominal PainTRANSPORTATION: WC IV? IV?(Yes) O2? Oxygen?(No) RoChest 2 View: (ANGELY: 12/09/2019 15:02) ( MsgRcvd 12/09/2019 16:01) In ProgressCHEST 2 VIEWSReason(s): upper abd painTRANSPORTATION: WC IV? O2? Oxygen?(No) Room: [facility] w Diff: (ANGELY: 12/09/2019 14:15) ( MsgRcvd 12/09/2019 14:26) Final results Test Result Flag Units (Reference) CBC W/AUTOMATED DIFF COMPLETE BLOOD COUNT WBC 9.9 10/uL (4.2 - 11.0) RBC 4.28 10/uL (4.20 - 5.40) HEMOGLOBIN 13.3 g/dL (12.0 - 16.0) HEMATOCRIT 38.8 % (37.0 - 47.0) MCV 90.7 fL (81.0 - 101) MCH 31.1 pg (27.0 - 34.0) MCHC 34.3 g/dL (31.0 - 36.0) RDW 12.7 % (11.5 - 14.5) PLATELETS 282 10/uL (150 - 450) MPV 9.3 fL (7.4 - 10.4) NEUT 77.7 % (37.0 - 80.0) LYMPH 15.6 L % (25.0 - 40.0) MONO 6.2 % (3.0 - 8.0) EOS 0.0 % (0.0 - 7.0) BASO 0.2 % (0.0 - 2.5) %IG 0.3 H % (0.0 - 0.0) %NRBC 0.0 % (0.0 - 0.0) #NEUT 7.68 H 10/uL (2.00 - 6.90) #LYMPH 1.54 10/uL (0.60 - 3.40) #MONO 0.61 10/uL (0.00 - 0.90) #EOS 0.00 10/uL (0.00 - 0.70) #BASO 0.02 10/uL (0.00 - 0.20) #IG 0.03 10/uL (0.00 - 0.10) #NRBC 0.00 10/uL (0.00 - 0.00) MANUAL DIFF NOT INDICATED RBC MORPH NOT INDICATEDCMP: (ANGELY: 12/09/2019 14:15) ( MsgRcvd 12/09/2019 14:57) Correction to results Test Result Flag Units (Reference) COMPREHENSIVE METABOLIC PANEL COMPREHENSIVE METABOLIC PANEL SODIUM 139 mEq/L (134 - 153) POTASSIUM 2.7 LL mEq/L (3.6 - 5.0) CALL/ READ BACK [employer]AY[employer] SUPERVISOR BY: LINDA DATE/TIME [id number] Clinical Report - Physicians/Mid Levels [facility] Emergency Department [address] [place] [address] Phone #: ext- [phone] 12/09/2019 12:30 Patient: NATALIYA BEASLEY Sex: F : 1995 Age: 24y CHLORIDE 100 mEq/L (98 - 107) CO2 24 MEQ/L (22 - 30) GLUCOSE 102 MG/DL (65 - 110) BUN 11 MG/DL (7 - 21) CREATININE 0.6 L MG/DL (0.7 - 1.5) BUN/CREAT 18 (8 - 27) TOTAL PROTEIN 7.1 G/DL (6.3 - 8.2) ALBUMIN 4.7 G/DL (3.9 - 5.0) GLOBULIN 2.4 GM/DL (2.4 - 3.2) A/G RATIO 2.0 (0.8 - 2.0) CALCIUM 9.5 MG/DL (8.4 - 10.2) TOTAL BILI 1.0 MG/DL (0.2 - 1.3) ALKALINE PHOS 64 U/L (38 - 126) SGOT/AST 23 U/L (5 - 40) SGPT/ALT 37 U/L (7 - 56) ANION GAP 15.0 mmol/L (8.0 - 16.0) AGE 24 yrs NON-AA GFR >60 mL/min AFR AMER GFR >60 mL/min Male GFR Interprentation 20-49 yrs >60 mL/min Eugzfu05-00 yrs >56 mL/min Normal 60-69 yrs >49 mL/min Normal 70-79yrs>42 mL/min Normal 80 and above >35 mL/min Normal Female GFRInterpretation 20-39 yrs >60 mL/min Normal 40-49 yrs >58 mL/minNormal 50-59 yrs >51 mL/min Normal 60-69 yrs >45 mL/min Txcvpa52- 79 yrs >39 mL/min Normal 80 and above >32 mL/min NormalLipase: (ANGELY: 12/09/2019 14:15) ( [facility] 12/09/2019 14:51) Final results Test Result Flag Units (Reference) LIPASE 12 L U/L (13 - 60)PT/INR: (ANGELY: 12/09/2019 14:15) ( [facility] 12/09/2019 14:38) Final results Test Result Flag Units (Reference) PROTIME 12.4 SECONDS (11.0 - 15.5) INR 0.91 L (0.93 - 1.23) \\BLDo\\INR INTERPRETATION\\BLDx\\ Therapeutic range for Coumadin andrelated oral anticoagulants. -International Normalized Ratio (INR): 2.0 - 3.0 for VenousThrombosis, Pulmonary Embolus, Tissue heart valves, Acute PR, Atrial Fibrillation, Valvular heartdisease and recurrent Systemic Embolism. - International Normalized Ratio (INR): 2.5 - 3.5for Mechanical Prosthetic valve.Magnesium: (ANGELY: 12/09/2019 14:15) ( [facility] [place] 12/09/2019 14:51) Final results Test Result Flag Units (Reference) MAGNESIUM 1.6 L MG/DL (1.7 - 2.2)Beta-HCG, Qual Serum: (ANGELY: 12/09/2019 14:15) ( [facility] 12/09/2019 14:43) Final results Test Result Flag Units (Reference) HCG SERUM QUAL NEGATIVE (NORMAL: NEGAT HCG SERUM QL REENTER NEGATIVE (NORMAL: NEGAT { KIT LOT # [id number] ){ KIT EXP DATE02.27.21 ){ PROCEDURAL CONTROL VALID)Troponin-T: (ANGELY: 12/09/2019 14:15) ( [facility] 12/09/2019 14:51) Final results Test Result Flag Units (Reference) 5 Clinical Report - Physicians/Mid Levels [facility] Emergency Department [address] [place] [address] Phone #: ext- [phone] 12/09/2019 12:30 Patient: NATALIYA BEASLEY Sex: F : 1995 Age: 24y TROPONIN T <0.01 NG/ML (0.00 - 0.10) TROPONIN T0.1 ng/ml Recommended as the clinical threshold value Moi Kam US Liver: (ANGELY: 12/09/2019 13:26) ( [facility] 12/09/2019 14:38) In Progress HEPATIC Reason(s): Nausea w Vomiting TRANSPORTATION: IV? O2? Oxygen?(No) Room: ED Urinalysis: (ANGELY: 12/09/2019 13:05) ( [facility] 12/09/2019 13:35) Final results Test Result Flag Units (Reference) URINALYSIS URINALYSIS SOURCE R COLOR yellow (NORMAL: Yello CLARITY hazy (NORMAL: Clear SPEC GRAVITY 1.020 (1.001 - 1.030 pH 6 (5 - 9) GLUCOSE NORM (NORMAL: Negat BILIRUBIN NEG (NORMAL: Negat KETONE 15 A (NORMAL: Negat PROTEIN 30 (NORMAL: Negat NITRITE NEG (NORMAL: Negat BLOOD 150 A (NORMAL: Negat LEUK EST 25 (NORMAL: Negat UROBILINOGEN 4 (less than 1.0 MICROSCOPIC See Below WBC 0 - 1 (NORMAL: NONE RBC 0 - 1 (NORMAL: NONE EPITHELIAL MANY A (NORMAL: NONE BACTERIA 1+ SMALL (NORMAL: NONE AMORPH SED 3+ (NORMAL: NONE.PROGRESS AND PROCEDURESCourse of Care: VSS, NAD, AOx3, interacting well and appropriately, no use of accessory muscle, able tospeak full sentences, stable, non-toxic looking. Enter room and pt lying peacefully in bed in NAD. Patient stable. Denies any new issues, concerns, or complaints. PE demos NV intact b/l UE and LE. Noted TTP of the upper abd. Will obtain labs and imaigng for furhter eval. Pendng results. 15:21 12/09/19. Reviewed and noted labs. Enter room and patient lying peacefully in bed in NAD. Patient stable. Denies any new issues, concerns, or complaints. Sts she feels better. 6 Clinical Report - Physicians/Mid Levels [facility] Emergency Department [address] [place] [address] Phone #: ext- [phone] 12/09/2019 12:30 Patient: NATALIYA BEASLEY Sex: F : 1995 Age: 24y Will call hosptialist to discuss admission. ? imaigng. Last image 3 wks ago. Pain. Low pottassium. Will image for furhter eval. Discuss with hosptialist. Agrees. Indicates to inform when imaigng has returned. Agree. Pending resutls. REviewed results. Contacted Hospitalist and agrees. Will place orders. Critical care performed (60 minutes). Time includes: direct patient care, patient reassessment, coordination of patient care, interpretation of data (laboratory data and chest xrays), review of patient's medical records, medical consultation, family consultation regarding treatment decisions and documentation of patient care- see progress notes. Discussed case with health care provider (An). Disposition: Admitted to the Acute Inpatient Unit, Monitored. UTI (catheter associated) was not present prior to admission. Pressure ulcer was not present prior to admission. Vascular infection (catheter associated) was not present prior to admission.CLINICAL IMPRESSION Hypokalemia(Electronically signed by Imtiaz España P.A.-C 12/10/2019 11:00) Name Value Range Interpretation Code Description [facility] Supporting Document(s) ID Date Data Source [id number] 12/10/2019 08:37:00 AM EDT [facility] Name Value Range Interpretation Code Description Data [facility](s) Supporting Document(s) CBC W/AUTOMATED DIFF [facility] COMPLETE BLOOD COUNT Leukocytes [#/volume] in Blood by Automated count 6.9 10^3/uL 4.2 - 1 1.0 [facility] Erythrocytes [#/volume] in Blood by Automated count 4.03 10^6/uL 4. 20 - 5.40 L [facility] Hemoglobin [Mass/volume] in Blood 12.5 g/dL 12.0 - 16.0 [facility] Hematocrit [Volume Fraction] of Blood by Automated count 37.7 % 3 7.0 - 47.0 [facility] Erythrocyte mean corpuscular volume [Entitic volume] by Auto mated count 93.5 fL 81.0 - 101 [facility] Erythrocyte mean corpuscular hemoglobin [Entitic mass] by Automated count 31.0 pg 27.0 - 34.0 [facility] Erythrocyte mean corpuscular hemoglobin concentration [Mass/volume] by Automated count 33.2 g/dL 31.0 - 36.0 [facility] Erythrocyte distribution width [Ratio] by Automated count 12.9 % 11.5 - 14.5 [facility] Platelets [#/volume] in Blood by Automated count 185 10^3/uL 150 - 45 0 [facility] Platelet mean volume [Entitic volume] in Blood by Automated count 10.1 fL 7.4 - 10.4 [facility] Neutrophils/100 leukocytes in Blood by Automated count 66.1 % 37. 0 - 80.0 [facility] Lymphocytes/100 leukocytes in Blood by Manual count 25.3 % 25.0 - 40.0 [facility] Monocytes/100 leukocytes in Blood by Automated count 7.4 % 3.0 - 8.0 [facility] Eosinophils/100 leukocytes in Blood by Automated count 0.3 % 0.0 - 7.0 [facility] Basophils/100 leukocytes in Blood by Automated count 0.6 % 0.0 - 2.5 [facility] %IG 0.3 % 0.0 - 0.0 [facility] %[facility] 0.0 % 0.0 - 0.0 [facility] al Neutrophils [#/volume] in Blood by Automated count 4.55 10^3/uL 2.00 - 6.90 [facility] Lymphocytes [#/volume] in Blood by Automated count 1.74 10^3/uL 0.60 - 3.40 [facility] Monocytes [#/volume] in Blood by Automated count 0.51 10^3/uL 0.00 - 0.90 [facility] Eosinophils [#/volume] in Blood by Automated count 0.02 10^3/uL 0.00 - 0.70 [facility] Basophils [#/volume] in Blood by Automated count 0.04 10^3/uL 0.00 - 0.20 [facility] #IG 0.02 10^3/uL 0.00 - 0.10 [facility] H ospital #NRBC 0.00 10^3/uL 0.00 - 0.00 [facility] ospital MANUAL DIFF NOT INDICATED [facility] RBC MORPH NOT INDICATED [facility] Ho spital ID Date Data Source [id number] 12/10/2019 08:35:00 AM EDT [facility] Name Value Range Interpretation Code Description Data Michelle rce(s) Supporting Document(s) COMPREHENSIVE METABOLIC PANEL [facility] COMPREHENSIVE METABOLIC PANEL Sodium [Moles/volume] in Serum or Plasma 141 mEq/L 134 - 153 [facility] Potassium [Moles/volume] in Serum or Plasma 3.6 mEq/L 3.6 - 5.0 [facility] Chloride [Moles/volume] in Serum or Plasma 107 mEq/L 98 - 107 [facility] Carbon dioxide, total [Moles/volume] in Serum or Plasma 27 MEQ/L 22 - 30 [facility] Glucose [Mass/volume] in Serum or Plasma 89 MG/DL 65 - 110 [facility] BUN 10 MG/DL 7 - 21 [facility] al Creatinine [Mass/volume] in Serum or Plasma 0.4 MG/DL 0.7 - 1.5 L [facility] BUN/CREAT 25 8 - 27 [facility] Protein [Mass/volume] in Serum or Plasma 6.2 G/DL 6.3 - 8.2 L [facility] Albumin [Mass/volume] in Serum or Plasma 4.3 G/DL 3.9 - 5.0 [facility] Globulin [Mass/volume] in Serum by calculation 1.9 GM/DL 2.4 - 3.2 L [facility] A/G RATIO 2.3 0.8 - 2.0 H [facility] Calcium [Mass/volume] in Serum or Plasma 9.0 MG/DL 8.4 - 10.2 [facility] Bilirubin.total [Mass/volume] in Serum or Plasma 0.9 MG/DL 0.2 - 1.3 [facility] Alkaline phosphatase [Enzymatic activity/volume] in Serum or Plasma 52 U/L 38 - 126 [facility] Aspartate aminotransferase [Enzymatic activity/volume] in Serum or Plasma 27 U/L 5 - 40 [facility] Alanine aminotransferase [Enzymatic activity/volume] in Seru m or Plasma 38 U/L 7 - 56 [facility] Anion gap 3 in Serum or Plasma 7.0 mmol/L 8.0 - 16.0 L [facility] AGE 24 yrs [facility] al NON-AA GFR >60 mL/min [facility] ital AFR AMER GFR >60 mL/min [facility] Ho spital Male GFR In terprentation 20-49 yrs >60 mL/min Normal 50-59 yrs >56 mL/min Normal 60-69 yrs >49 mL/min Normal 70-79yrs >42 mL/min Normal 80 and above >35 mL/min Normal Female GFR Interpretation 20-39 yrs >60 mL/min Normal 40-49 yrs >58 mL/min Normal 50-59 yrs >51 mL/min Normal 60-69 yrs >45 mL/min Normal 70-79 yrs >39 mL/min Normal 80 and above >32 mL/min Normal ID Date Data Source [id number] 12/10/2019 11:51:00 AM EDT [facility] Name Value Range Interpretation Code Description Data Michelle rce(s) Supporting Document(s) Magnesium [Mass/volume] in Serum or Plasma 1.9 MG/DL 1.7 - 2.2 [facility] ID Date Data Source [id number] 12/09/2019 10:55:00 PM EDT [facility] [address] [place] [address] PHONE: [phone] FAX: [phone] Name ..............: RITTER NATALIYA Martinez Acct Number ...........................: [id number] ROOM. ............: [facility][note 3] MR Number ............................: [id number] Stay type.........: O/P Discharge Date...............: Admit Date .....: 12/09/19 Admit Phys .............................: MULLER HARD Date of ..: 1995 Family Phys ...........................: COLLAZO SCOT Phone..............: [phone] Age .................................:24 Film# ...............:[id number] Sex.................................:F Unsigned transcriptions are preliminary reports and do not represent a medical or legal document EKG [id number] COMPLETE:12/09/19 16:25 [facility] [id number] Please See Scanned Results. Name Value Range Interpretation Code Description Data Michelle rce(s) Supporting Document(s) ID Date Data Source [id number] 12/09/2019 06:23:00 PM EDT [facility] Name Value Range Interpretation Code Description Data Michelle rce(s) Supporting Document(s) BASIC METABOLIC PANEL [facility] BASIC METABOLIC PANEL Sodium [Moles/volume] in Serum or Plasma 137 mEq/L 134 - 153 [facility] Potassium [Moles/volume] in Serum or Plasma 2.7 mEq/L 3.6 - 5.0 LL [facility] CALL/ READ BACK VENEROUS DE [facility] BY: LINDA [facility] DATE/TIME [id number] [facility] Chloride [Moles/volume] in Serum or Plasma 99 mEq/L 98 - 107 [facility] Carbon dioxide, total [Moles/volume] in Serum or Plasma 24 MEQ/L 22 - 30 [facility] Glucose [Mass/volume] in Serum or Plasma 96 MG/DL 65 - 110 [facility] BUN 9 MG/DL 7 - 21 [facility] Creatinine [Mass/volume] in Serum or Plasma 0.5 MG/DL 0.7 - 1.5 L [facility] BUN/CREAT 18 8 - 27 [facility] Calcium [Mass/volume] in Serum or Plasma 9.0 MG/DL 8.4 - 10.2 [facility] Anion gap 3 in Serum or Plasma 14.0 mmol/L 8.0 - 16.0 [facility] AGE 24 yrs [facility] al AFR AMER GFR >60 mL/min [facility] Ho spital NON-AA GFR >60 mL/min [facility] ital Male GFR Inter prentation 20-49 yrs >60 mL/min Normal 50-59 yrs >56 mL/min Normal 60-69 yrs >49 mL/min Normal 70-79yrs >42 mL/min Normal 80 and above >35 mL/min Normal Female GFR Interpretation 20-39 yrs >60 mL/min Normal 40-49 yrs >58 mL/min Normal 50-59 yrs >51 mL/min Normal 60-69 yrs >45 mL/min Normal 70-79 yrs >39 mL/min Normal 80 and above >32 mL/min Normal ID Date Data Source [id number] 12/09/2019 06:23:00 PM EDT [facility] Name Value Range Interpretation Code Description Data Michelle rce(s) Supporting Document(s) BNP 147 PG/ML 0 - 125 H [facility] al ID Date Data Source [id number] 12/09/2019 05:22:00 PM EDT [facility] Name Value Range Interpretation Code Description Data Michelle rce(s) Supporting Document(s) MONO TEST NEGATIVE NORMAL: NEGATIVE [facility] MONO REENTER NEGATIVE NORMAL: NEGATIVE [facility] { KIT LOT # [id number] ){ KIT EXP DATE 04.16.21 ){ PROCEDURAL CONTROL VALID ) ID Date Data Source [id number] 12/09/2019 02:56:00 PM EDT [facility] Name Value Range Interpretation Code Description Data Michelle rce(s) Supporting Document(s) COMPREHENSIVE METABOLIC PANEL [facility] COMPREHENSIVE METABOLIC PANEL Sodium [Moles/volume] in Serum or Plasma 139 mEq/L 134 - 153 [facility] Potassium [Moles/volume] in Serum or Plasma 2.7 mEq/L 3.6 - 5.0 LL [facility] CALL/ READ BACK CHAYA MCCORMACK ER [facility] BY: LINDA [facility] al DATE/TIME [id number] [facility] Chloride [Moles/volume] in Serum or Plasma 100 mEq/L 98 - 107 [facility] Carbon dioxide, total [Moles/volume] in Serum or Plasma 24 MEQ/L 22 - 30 [facility] Glucose [Mass/volume] in Serum or Plasma 102 MG/DL 65 - 110 [facility] BUN 11 MG/DL 7 - 21 [facility] Creatinine [Mass/volume] in Serum or Plasma 0.6 MG/DL 0.7 - 1.5 L [facility] BUN/CREAT 18 8 - 27 [facility] Protein [Mass/volume] in Serum or Plasma 7.1 G/DL 6.3 - 8.2 [facility] Albumin [Mass/volume] in Serum or Plasma 4.7 G/DL 3.9 - 5.0 [facility] Globulin [Mass/volume] in Serum by calculation 2.4 GM/DL 2.4 - 3.2 [facility] A/G RATIO 2.0 0.8 - 2.0 [facility] Calcium [Mass/volume] in Serum or Plasma 9.5 MG/DL 8.4 - 10.2 [facility] Bilirubin.total [Mass/volume] in Serum or Plasma 1.0 MG/DL 0.2 - 1.3 [facility] Alkaline phosphatase [Enzymatic activity/volume] in Serum or Plasma 64 U/L 38 - 126 [facility] Aspartate aminotransferase [Enzymatic activity/volume] in Serum or Plasma 23 U/L 5 - 40 [facility] Alanine aminotransferase [Enzymatic activity/volume] in Seru m or Plasma 37 U/L 7 - 56 [facility] Anion gap 3 in Serum or Plasma 15.0 mmol/L 8.0 - 16.0 [facility] AGE 24 yrs [facility] al NON-AA GFR >60 mL/min [facility] ital AFR AMER GFR >60 mL/min [facility] Ho spital Male GFR In terprentation 20-49 yrs >60 mL/min Normal 50-59 yrs >56 mL/min Normal 60-69 yrs >49 mL/min Normal 70-79yrs >42 mL/min Normal 80 and above >35 mL/min Normal Female GFR Interpretation 20-39 yrs >60 mL/min Normal 40-49 yrs >58 mL/min Normal 50-59 yrs >51 mL/min Normal 60-69 yrs >45 mL/min Normal 70-79 yrs >39 mL/min Normal 80 and above >32 mL/min Normal ID Date Data Source [id number] 12/09/2019 02:51:00 PM EDT [facility] Name Value Range Interpretation Code Description Data Michelle rce(s) Supporting Document(s) TROPONIN T <0.01 NG/ML 0.00 - 0.10 [facility] ospital TROPONIN T0.1 ng/ml Recommended as the c linical threshold value forTroponin T. ID Date Data Source [id number] 12/09/2019 02:51:00 PM EDT [facility] Name Value Range Interpretation Code Description Data Michelle rce(s) Supporting Document(s) Magnesium [Mass/volume] in Serum or Plasma 1.6 MG/DL 1.7 - 2.2 L [facility] ID Date Data Source [id number] 12/09/2019 02:51:00 PM [facility] Name Value Range Interpretation Code Description Data Michelle rce(s) Supporting Document(s) Lipase [Enzymatic activity/volume] in Serum or Plasma 12 U/L 13 - 60 L [facility] ID Date Data Source [id number] 12/09/2019 02:42:00 PM T [facility] Name Value Range Interpretation Code Description Data Michelle rce(s) Supporting Document(s) HCG SERUM QUAL NEGATIVE NORMAL: NEGATIVE [facility] HCG SERUM QL REENTER NEGATIVE NORMAL: NEGATIVE [facility] { KIT LOT # [id number] ){ KIT EXP DATE 02.27.21 ){ PROCEDURAL CONTROL VALID ) ID Date Data Source [id number] 12/09/2019 02:38:00 PM [facility] Name Value Range Interpretation Code Description Data Michelle rce(s) Supporting Document(s) Prothrombin time (PT) 12.4 SECONDS 11.0 - 15.5 [facility] INR in Platelet poor plasma by Coagulation assay 0.91 0.93 - 1. 23 [facility] \\BLDo\\INR INTERPRETATION\\BLDx\\ Therapeutic range for Coumadin and related oral anticoagulants. - International Normalized Ratio (INR): 2.0 - 3.0 for Venous Thrombosis, Pulmonary Embolus, Tissue heart valves, Acute PR, Atrial Fibrillation, Valvular heart disease and recurrent Systemic Embolism. -International Normalized Ratio (INR): 2.5 - 3.5 for Mechanical Prosthetic valve. ID Date Data Source [id number] 12/09/2019 02:25:00 PM [facility] Name Value Range Interpretation Code Description Data Michelle rce(s) Supporting Document(s) CBC W/AUTOMATED DIFF [facility] COMPLETE BLOOD COUNT Leukocytes [#/volume] in Blood by Automated count 9.9 10^3/uL 4.2 - 1 1.0 [facility] Erythrocytes [#/volume] in Blood by Automated count 4.28 10^6/uL 4. 20 - 5.40 [facility] Hemoglobin [Mass/volume] in Blood 13.3 g/dL 12.0 - 16.0 [facility] Hematocrit [Volume Fraction] of Blood by Automated count 38.8 % 3 7.0 - 47.0 [facility] Erythrocyte mean corpuscular volume [Entitic volume] by Auto mated count 90.7 fL 81.0 - 101 [facility] Erythrocyte mean corpuscular hemoglobin [Entitic mass] by Automated count 31.1 pg 27.0 - 34.0 [facility] Erythrocyte mean corpuscular hemoglobin concentration [Mass/volume] by Automated count 34.3 g/dL 31.0 - 36.0 [facility] Erythrocyte distribution width [Ratio] by Automated count 12.7 % 11.5 - 14.5 [facility] Platelets [#/volume] in Blood by Automated count 282 10^3/uL 150 - 45 0 [facility] Platelet mean volume [Entitic volume] in Blood by Automated count 9.3 fL 7.4 - 10.4 [facility] Neutrophils/100 leukocytes in Blood by Automated count 77.7 % 37. 0 - 80.0 [facility] Lymphocytes/100 leukocytes in Blood by Manual count 15.6 % 25.0 - 40.0 L [facility] Monocytes/100 leukocytes in Blood by Automated count 6.2 % 3.0 - 8.0 [facility] Eosinophils/100 leukocytes in Blood by Automated count 0.0 % 0.0 - 7.0 [facility] Basophils/100 leukocytes in Blood by Automated count 0.2 % 0.0 - 2.5 [facility] %IG 0.3 % 0.0 - 0.0 [facility] %NRBC 0.0 % 0.0 - 0.0 [facility] al Neutrophils [#/volume] in Blood by Automated count 7.68 10^3/uL 2.00 - 6.90 H [facility] Lymphocytes [#/volume] in Blood by Automated count 1.54 10^3/uL 0.60 - 3.40 [facility] Monocytes [#/volume] in Blood by Automated count 0.61 10^3/uL 0.00 - 0.90 [facility] Eosinophils [#/volume] in Blood by Automated count 0.00 10^3/uL 0.00 - 0.70 [facility] Basophils [#/volume] in Blood by Automated count 0.02 10^3/uL 0.00 - 0.20 [facility] #IG 0.03 10^3/uL 0.00 - 0.10 [facility] H [facility]spital #NRBC 0.00 10^3/uL 0.00 - 0.00 [facility] ospital MANUAL DIFF NOT INDICATED [facility] RBC MORPH NOT INDICATED [facility] spital ID Date Data Source [id number] 12/09/2019 04:25:00 PM EDT [facility] Name Value Range Interpretation Code Description Data Michelle rce(s) Supporting Document(s) DRUG SCREEN URINE [facility] URINE DRUG SCREEN Amphetamine [Presence] in Urine by Screen method NEGATIVE NORMAL: N EGATIVE [facility] BARBITURATES NEGATIVE NORMAL: NEGATIVE [facility] BENZO NEGATIVE NORMAL: NEGATIVE [facility] COCAINE NEGATIVE NORMAL: NEGATIVE [facility] Tetrahydrocannabinol [Presence] in Urine PRESUMP POS NORMAL: NEGATIVE [facility] OPIATES NEGATIVE NORMAL: NEGATIVE [facility] Phencyclidine [Presence] in Urine by Screen method NEGATIVE NOR MAL: NEGATIVE [facility] \\BLDo\\URINE DRUG SCR EEN INTERPRETATION\\BLDx\\ THE CUTOFFF LEVELS FOR DETECTION ARE FOLLOWS: AMPHETAMINES 1000 ng/ml BARBITUARATES 200 ng/ml BENZODIAZEPINES 100 ng/ml THC 50 ng/ml PHENCYCLIDINE 25 ng/ml OPIATES 300 ng/ml COCAINE 300 ng/ml ALL POSITIVES ARE CONSIDERED PRESUMPTIVE POSITIVE CONFIRMATION WILL BE PERFORMED AT PHYSICIAN REQUEST. ID Date Data Source [id number] 12/09/2019 01:34:00 PM EDT [facility] Name Value Range Interpretation Code Description Data Michelle rce(s) Supporting Document(s) URINALYSIS [facility] yellow NORMAL: Yellow [facility] ospital CLARITY hazy NORMAL: Clear [facility] Ho sp[facility] Specific gravity of Urine by Test strip 1.020 1.001 - 1.030 [facility] pH 6 5 - 9 [facility] Glucose [Mass/volume] in Urine by Test strip NORM NORMAL: Negat [facility] Bilirubin.total [Presence] in Urine by Test strip NEG NORMAL: Negative [facility] Ketones [Presence] in Urine by Test strip 15 NORMAL: Negative [facility] Protein [Mass/volume] in Urine by Test strip 30 NORMAL: Negat [facility] Nitrite [Presence] in Urine by Test strip NEG NORMAL: Negative [facility] BLOOD 150 NORMAL: Negative [facility] Leukocyte esterase [Presence] in Urine by Test strip 25 DAYLIN L: Negative [facility] Urobilinogen [Mass/volume] in Urine by Test strip 4 less tito n 1.0 mg/dL [facility] MICROSCOPIC See Below [facility] ital WBC 0 - 1 NORMAL: NONE SEEN [facility] Erythrocytes [#/volume] in Urine by Test strip 0 - 1 NORMAL: NON E SEEN [facility] EPITHELIAL MANY NORMAL: NONE SEEN [facility] Bacteria [Presence] in Urine sediment by Light microscopy 1+ SMALL NORMAL: NONE SEEN [facility] Amorphous sediment [Presence] in Urine sediment by Light chelsey roscopy 3+ NORMAL: NONE SEEN [facility] ID Date Data Source [id number] 12/09/2019 03:59:00 AM EDT [facility] [address] [place] [address] RESPIRATORY CARE REPORT ==== ---------NAME------- NUMBER SEX AGE ADMIT DISC. XRAY# F/C ANDREIAARIN Martinez [id number] F 24 12/07/19 12/07/19 [id number] [id number] E/R DATE OF : 1995 M/R# [id number] #: [id number] [facility] LOCATION: EMERGENCY DEPT EKG [id number] COMP LETE:12/08/19 07:50 EWW [id number] PHYSICIAN: TANYA JACOBS Name Value Range Interpretation Code Description Data Michelle rce(s) Supporting Document(s) ID Date Data Source [id number] 12/07/2019 06:58:00 PM EDT [facility] 1 OrderSheet [facility] Emergency Department [address] [place] [address] Phone #: ext- [phone] 12/07/2019 18:51 Patient: NATALIYA BEASLEY Sex: F : 1995 Age: 24yWEIGHT:58.9 kg (S) HEIGHT:63 inches (S) BMI:23.0ALLERGIES: No Known Drug AllergyCHIEF COMPLAINT: vomitingDIAGNOSIS: VomitingLAB ORDERSOrder Description Priority Entered Acknowledged InitialedCBC w Diff STAT 19:12/07/2019 19:13 Alexia Kemp Riccardo R.N. M.D.;CMP STAT 19:12/07/2019 19:13 Alexia Kemp Riccardo R.N. M.D.;Lipase STAT 19:12/07/2019 19:13 Alexia Kemp Riccardo R.N. M.D.;Urinalysis (Clean STAT 19:12/07/2019CatchLeena Root M.D.;Beta-HCG, Qual STAT 19:12/07/2019 19:13 Morgan Kemp Riccardo R.N. M.D.;Magnesium STAT 19:12/07/2019 19:13 Alexia Kemp Riccardo R.N. M.D.;Troponin-T STAT 19:12/07/2019 19:13 Alexia Kemp Riccardo R.N. M.D.;Urine Drug Screen STAT 19:11 12/07/2019 19:13 Alexia Kemp Riccardo R.N. M.D.;ETOH STAT 19:14 12/07/2019 19:21 Tanya Melton Riccardo Robert R.N. M.D.;DIAGNOSTIC STUDY ORDERSOrder Description Priority Entered Acknowledged Initialed 2 OrderSheet [facility] Emergency Department [address] [place] [address] Phone #: ext- [phone] 12/07/2019 18:51 Patient: NATALIYA BEASLEY Sex: F : 1995 Age: 24 yMEDICATION/IV/DRIP/FLUID ORDERSOrder Description Priority Entered Acknowledged InitialedPhenergan 25 mg 19:10 12/07/2019 19:14 Abigail Kemp 50 mL NS, give Leena Martínez R.NSvetawide open: 25 mg M.D.;(NOW x1, HIGHALERTMEDICATION)NS IV 1000 mL 19:10 12/07/2019 19:15 Hiro Kemps: : Bolus 1000 Leahrin, Leena R.N.mL (X1) M.D.;Magnesium Sulfate 19:55 12/07/2019 20:18 Geronimo,2 g IVPB X1 dose: 2 Tanya, Leena Quintana R.NSvetagm (HIGH ALERT M.D.;MEDICATION, X1)Pepcid IVPB 20 19:55 12/07/2019 20:17 Geronimo,mg/50mL (NOW x1, Leena Martínez R.NSvetaInfuse over 30 M.D.;minutes.)Protonix IVPB 40 19:55 12/07/2019 20:13 Geronimo,mg with Dextrose Leena Martínez RSvetaNSveta100 ml spike bag M.D.;(D5W)GENERAL ORDERSOrder Description Priority Entered Acknowledged InitialedNPO 19:10 12/07/2019 19:13 Alexia Kemp Riccardo R.N. M.D.;Saline Lock 19:10 12/07/2019 19:13 Alexia Kemp Riccardo R.N. M.D.;EKG 19:12/07/2019 19:13 Alexia Kemp Riccardo R.N. M.D.;Title Investigator 19:12/07/2019 19:13 Alexia Kemp(continuous) Leena Martínez R.N., M.D.;[Electronically signed by Mariano Melton R.N. (21:18 12/07/2019)][Electronically signed by Leena Martínez M.D. (22:34 12/07/2019)][Electronically locked by Mariano Melton R.N. (:12/07/2019)] Name Value Range Interpretation Code Description Data Michelle rce(s) Supporting Document(s) ID Date Data Source [id number] 12/07/2019 06:58:00 PM EDT [facility] 1 Medication Reconciliation Report [facility] Emergency Department [address] [place] [address] Phone #: [phone] ogs- [phone] 12/07/2019 18:51 Patient: NATALIYA BEASLEY Sex: F : 1995 Age: 24yWeight: 58.9 kgHeight/Length: 63 in.BMI: 23.0ALLERGIES: No Known Drug AllergyThe patient's Home Medications are listed below:NONE.The source(s) of the original Home Medication information:Not obtained.The following Medications were given to the patient in the Emergency Department:Phenergan [IVPB] IVPB bolus 0, then 25 mg 200 mL/hr, administered: 12/07/2019 7:14:00 PMIV NS IV Fluids bolus 1000 mL over 1 hour(s), administered: 12/07/2019 7:15:00 PMProtonix [IVPB] IVPB bolus 0, then 40 mg 400 mL/hr, administered: 12/07/2019 8:13:00 PMPepcid [IVPB] IVPB bolus 0, then 20 mg 200 mL/hr, administered: 12/07/2019 8:17:00 PMMagnesium Sulfate [IV Drip] Drip IV bolus 0, then 2 gm 50 mL/hr, administered: 12/07/2019 8:18:00 PMThe following Medications were prescribed to the patient:promethazine 12.5 mg tablet Take 1 tablet four times a day as needed for 5 days -- Dispense 20 tablet.Refills: 0. Substitution permitted.[address] [place] [address]. .Pepcid 20 mg tablet Take 1 tablet twice a day for 7 days -- Dispense 14 tablet. Refills: 0. Substitutionpermitted.[facility] [address] [place] [address]. . -- Leena Martínez M.D. Name Value Range Interpretation Code Description Data Michelle rce(s) Supporting Document(s) ID Date Data Source [id number] 12/07/2019 06:58:00 PM EDT [facility] 1 Medication Administration Record [facility] Emergency Department [address] [place] [address] Phone #: ext- [phone] 12/07/2019 18:51 Patient: [facility]AS[id number] Sex: F : 1995 Age: 24yWeight: 58.9 kgHeight/Length: 63 inBMI: 23ALLERGIES: No Known Drug Allergy Date/Time Medication Administered Medication OrderedStart PHENERGAN [IVPB] Phenergan 25 mg in 50 mL NS,19:14 12/07/2019 Dose: 25 mg IVPB give wide open: 25 mg (NOW x1,Alexia Kepm R.N. Rate: 200 mL/hr over 15 minute(s) HIGH ALERT MEDICATION)---- Dispensed: 50 mL bagStop Site: #1 right hand21:01 12/07/2019Mariano Melton R.N.Start IV NS NS IV 1000 mL Bolus: : Bolus [id number] 12/07/2019 Dose: IV Fluids mL (X1)Alexia Kemp R.N. Bolus: 1000 mL over 1 hour(s)---- Dispensed: 1000 mL bagStop Site: #1 right hand20:00 12/07/2019Mariano Melton R.N.Start MAGNESIUM SULFATE [IV DRIP] Magnesium Sulfate 2 g IVPB X120:18 12/07/2019 Dose: 2 gm Drip IV dose: 2 gm (HIGH ALERTMariano Melton R.N. Rate: 50 mL/hr over 1 hour(s) MEDICATION, X1)---- Dispensed: 50 mL bagStop Site: #2 left AC21:00 12/07/2019Mariano Melton R.N.Start PEPCID [IVPB] Pepcid IVPB 20 mg/50mL (NOW20:17 12/07/2019 Dose: 20 mg IVPB x1, Infuse over 30 minutes.)Mariano Melton R.N. Rate: 200 mL/hr over 15 minute(s)---- Dispensed: 50 mL bagStop Site: #1 right hand21:01 12/07/2019Mariano Melton R.N.Start PROTONIX [IVPB] (PANTOPRAZOLE Protonix IVPB 40 mg with20:13 12/07/2019 SODIUM) Dextrose 100 ml spike bag (D5W)Mariano Melton R.N. Dose: 40 mg IVPB---- Rate: 400 mL/hr over 15 minute(s)Stop Dispensed: 100 mL bag21:01 12/07/2019 Site: #1 right handSMariano tang R.N. Name Value Range Interpretation Code Description Data Michelle rce(s) Supporting Document(s) ID Date Data Source [id number] 12/07/2019 06:58:00 PM EDT [facility] 1 General Instructions [facility] Emergency Department [address] [place] [address] Phone #: ext- [phone] 12/07/2019 18:51 Patient: NATALIYA BEASLEY Sex: F : 1995 Age: 24yIntractable vomiting with nausea.Cannabis Hyperemesis Syndrome.INSTRUCTIONSDrink plenty of fluids. Avoid alcohol and NSAIDS. NSAIDS include aspirin, ibuprofen (Advil) and naproxen(Aleve). Avoid fatty, fried/greasy, lactose-containing (such as milk, cheese and ice cream), salty and spicyfoods. No alcohol. Do not smoke.(PLEASE STOP CANNABIS USE).Warnings: Further evaluation is necessary. It is very important to follow up with a healthcare provider.GENERAL WARNINGS: Return or contact your physician immediately if your condition worsens orchanges unexpectedly, if not improving as expected, or if other problems arise. SPECIFICALLY, return ifyou develop pain in the abdomen, pelvis or back, fever, vomiting, the inability to keep fluids down, blood invomitus, blood in diarrhea, fainting or lightheadedness.Your Current Medications: .No home medication.Prescription Medications:promethazine 12.5 mg tablet Take 1 tablet four times a day as needed for 5 days -- Dispense 20 tablet.Refills: 0. Substitution permitted.[facility] [address] [place] [address]. .Pepcid 20 mg tablet Take 1 tablet twice a day for 7 days -- Dispense 14 tablet. Refills: 0. Substitutionpermitted.[facility] [address] [place] [address]. .Follow-up:Return to the emergency department as needed. Follow up with your healthcare provider in two dayseven if well. Call for an appointment. Reason for referral: evaluation and treatment. Summary of careprovided to patient via paper.Understanding of the discharge instructions verbalized by patient. Expected course of illness, dischargeinstructions, activity level, prescriptions x2, follow-up appointment and risks and benefits of treatmentreviewed with patient and understanding verbalized. Agrees to plan of care. 2 General Instructions [facility] Emergency Department [address] [place] [address] Phone #: ext- [phone] 12/07/2019 18:51 Patient: NATALIYA BEASLEY Sex: F : 1995 Age: 24y ADDITIONAL INFORMATIONVomiting (Adult)Vomiting is a common symptom that may be due to different causes. These include gastroenteritis("stomach flu"), food poisoning and gastritis. There are other more serious causes of vomiting whichmay be hard to diagnose early in the illness. Therefore, it is important to watch for the warning signslisted below.The main danger from repeated vomiting is dehydration. This is due to excess loss of water andminerals from the body. When this occurs, your body fluids must be replaced.Home care If symptoms are severe, rest at home for the next 24 hours. Because your symptoms may be from an infection, wash your hands often and well. If soap and water are not available, use alcohol-based dip dyer to keep from spreading the infection to others. Wash your hands for at least 20 seconds. Humming the happy birthday song twice while you wash is an easy way to make sure you've washed for 20 seconds. Wash your hands after using the toilet, before and after preparing food, before eating food, after changing a diaper, cleaning a wound, caring for a sick person, and blowing your nose, coughing, or sneezing. You should also wash your hands after caring for someone who is sick, touching pet food, or treats, and touching an animal, or animal waste. You may use acetaminophen or NSAID medicines like ibuprofen or naproxen to control fever, unless another medicine was prescribed. If you have chronic liver or kidney disease or ever had a stomach ulcer or gastrointestinal bleeding, talk with your doctor before using these medicines. Aspirin should never be used in anyone under 18 years of age who is ill with a fever. It may cause severe liver damage. Don't use NSAID medicines if you are already taking one for another condition (like arthritis) or are on aspirin (such as for heart disease, or after a stroke) Don't use tobacco and or drink alcohol, which may worsen your symptoms. If medicines for vomiting were prescribed, take as directed. Once vomiting stops, then follow these guidelines:During the first 12 to 24 hours follow the diet below: 3 General Instructions [facility] Emergency Department [address] [place] [address] Phone #: ext- [phone] 12/07/2019 18:51 Patient: NATALIYA BEASLEY Sex: F : 1995 Age: 24y Fruit juices. Apple, grape juice, clear fruit drinks, and electrolyte replacement drinks. Beverages. Soft drinks without caffeine; mineral water (plain or flavored), decaffeinated tea and coffee. Soups. Clear broth and bouillon Desserts. Plain gelatin, ice pops, and fruit juice bars. As you feel better, you may add 6 to 8 ounces of yogurt per day.During the next 24 hours you may add the following to the above: Hot cereal, plain toast, bread, rolls, crackers Plain noodles, rice, mashed potatoes, chicken noodle or rice soup Unsweetened canned fruit such as applesauce, bananas (avoid pineapple and citrus) Limit caffeine and chocolate. No spices or seasonings except salt.During the next 24 hours:Gradually resume a normal diet, as you feel better and your symptoms les sen.Follow-up careFollow up with your healthcare provider, or as advised.When to seek medical adviceCall your healthcare provider right away if any of these occur: Constant right-sided lower belly pain or increasing general belly pain Continued vomiting (unable to keep liquids down) for 24 hours Vomiting blood or coffee grounds Swollen belly Frequent diarrhea (more than 5 times a day); blood (red or black color) or mucus in diarrhea Reduced urine output or extreme thirst Weakness, dizziness or fainting Unusually drowsy or confused Fever of 100.4F (38C) oral or higher, or as directed 4 General Instructions [facility] Emergency Department [address] [place] [address] Phone #: ext- [phone] 12/07/2019 18:51 Patient: NATALIYA BEASLEY Sex: F : 1995 Age: 24y Yellow color of the eyes or skin [phone] [employer] [place] [address]. All rights reserved. This information is not intended as asubstitute for professional medical care. Always follow your healthcare professional's instructions. You have been given the following additional information: Vomiting (Adult)(Electronically signed by Leena Martínez M.D. 12/07/2019 22:34) Name Value Range Interpretation Code Description Data Michelle rce(s) Supporting Document(s) ID Date Data Source [id number] 12/07/2019 06:58:00 PM EDT [facility] 1 Clinical Report - Nurses [facility] Emergency Department [address] [place] [address] Phone #: ext- [phone] 12/07/2019 18:51 Patient: NATALIYA BEASLEY Sex: F : 1995 Age: 24yTRIAGEArrived by private vehicle. Historian: patient and family. Accompanied by family. ( presents with momwith c/o vomiting and low K, states she was recently here with K 2.0, states she drank 1/2 bottle wine andsmoked pot and started vomiting around midnight).Triage time: 18:52 0 12/07/2019. Acuity: LEVEL 3.Chief Complaint: NAUSEA and VOMITING and (low K).Alert. No acute distress.This started last night. She has had nausea. 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 Sepsis Screen negative. No suspected or confirmed signs ofinfection present. --18:57 12/07/19 Carmela Ocampo RN18:52 12/07/19. BP: 137/89. MAP: 105. HR: 100. RR: 14. O2 saturation: 100%. Temp: 98 F. Pain levelnow: 9/10. --18:57 12/07/19 Carmela Ocampo RN.Weight: 58.9 kg stated. Height/Length: 63 inches Per Patient. BMI: 23. --18:54 12/07/19 Carmela Ocampo RN.MedicationsNone. --19:24 12/07/19 Leena Martínez M.D.AllergiesNo Known Drug Allergy. --19:24 12/07/19 Leena Martínez M.D.HistoryPAST MEDICAL HX: Last normal menstrual period- 11/25.SOCIAL HX: Occasional alcohol use. History of drug use: marijuana. (daily). No recent travel. Noknown contact with a sick individual. She was offered HIV testing but declined and hepatitis C testing butdeclined.SELF HARM ASSESSMENT: S elf harm assessment was performed. The patient answered "no" to thequestion(s) "Have you recently felt down, depressed, or hopeless?".ABUSE ASSESSMENT: No report of abuse.NUTRITIONAL RISK ASSESSMENT: The nutritional risk assessment revealed no deficiencies. 2 Clinical Report - Nurses [facility] Emergency Department [address] [place] [address] Phone #: ext- [phone] 12/07/2019 18:51 Patient: NATALIYA BEASLEY Sex: F : 1995 Age: 24y FUNCTIONAL ASSESSMENT: Functional assessment: no impairments noted. LEARNING NEEDS ASSESSMENT: The learning needs assessment revealed no barriers. FALL RISK ASSESSMENT: Fall risk assessment completed. No risk factors identified. SKIN INTEGRITY ASSESSMENT: Skin integrity risk assessment completed. No skin integrity risk identified. --18:57 12/07/19 Carmela Ocampo RN SOCIAL HX: History of heavy drug use: marijuana. (several times a day 1every day). She has not traveled outside the [place] Infectious disease exposure: The patient was not exposed to chicken pox, measles, mumps, meningitis, staph, strep, mono, C-diff, MRSA, VRE, CRE, influenza, Brian flu, H1N1 flu, Hepatitis A, B and C, Coronavirus, MERS, SARS, tuberculosis, Ebola, HIV, Typhoid or Zika. --21:16 12/07/19 Mariano Melton R.N. SOCIAL HX: Never smoker. Smoker- current status unknown. Alcohol use; consumes wine occasionally. Last drink was less than 24 hours ago. --21:18 12/07/19 Mariano Melton R.N.PHYSICAL ASSESSMENTAmbulatory to room.GENERAL / NEURO / PSYCH: Alert. Oriented X 4. Appears in no acute distress.RESPIRATORY: Respirations not labored.CVS: Normal sinus rhythm noted. Cardiac rhythm: sinus tachycardia. Capillary refill less than 2 seconds.GI / : Abdomen soft. --19:00 12/07/19 Carmela Ocampo RN GENERAL / NEURO / PSYCH: Alert. Oriented X 4. ( anxious). HEENT: Mucous membranes are pink. RESPIRATORY: Respirations not labored. Breath sounds within normal limits. CVS: Normal sinus rhythm noted. Cardiac rhythm: sinus tachycardia. GI / : The patient has had nausea. Emesis noted. Abdomen soft. Abdominal tenderness in the lower abdomen. Bowel sounds within normal limits. SKIN: Skin is warm and dry. --19:12/07/19 Alexia Kemp R.N.NURSING PROGRESS NOTESMonitoring of patient in place. Patient gowned. Head of bed elevated. Reassurance given. Twopatient identifiers checked. Side rails up x 2. Bed placed in lowest position. Brakes of bed on. Patientready for evaluation. --18:57 12/07/19 Carmela Ocampo RN 18:57 12/07/2019 Site #1 started via IV in the right hand with an 20g angiocath; one attempt. Blood drawn. --18:57 12/07/19 Carmela Ocampo RN 19:06 12/07/2019 Site #2 started via IV in the left antecubital space with an 20g angiocath, with aseptic technique and good blood return; one attempt. Saline lock flushed. --19:12/07/19 Alexia Kemp R.N. 3 Clinical Report - Nurses [facility] Emergency Department [address] [place] [address] Phone #: ext- [phone] 12/07/2019 18:51 --------- Patient: NATALIYA BEASLEY Sex: F : 1995 Age: 24y19:14 12/07/2019 Started 25 mg of Phenergan IVPB in bag #1 50 mL; at 200 mL/hr over 15 minute(s) viasite #1. via IV pump. Allergies verified and confirmed 5 rights. IV patency established. IV site checked: nopain, redness, or swelling. IV flushed thoroughly pre- and post-medication administration. Informationreviewed with patient including reason for taking this medication, signs of allergic reaction and precautions.Verbalizes understanding. --19:12/07/19 Alexia Kemp R.N.19:15 12/07/2019 Started bag #1 1000 mL IV Fluids IV NS; bolus of 1000 mL over 1 hour(s) via site #1 viaIV pump. Allergies verified and confirmed 5 rights. IV patency established. IV site checked: no pain,redness, or swelling. IV flushed thoroughly pre- and post-medication administration. Information revi ewedwith patient including reason for taking this medication, signs of allergic reaction and precautions.Verbalizes understanding. --19:12/07/19 Alexia Kemp R.N.( pt aware of need for urine sample pt cannot void at present mother at bedside). --19:12/07/19 Alexia Kemp R.N.Care transferred and report given (Dino). --19:12/07/19 Aleixa Kemp R.N.Reassessment acuity: LEVEL 3.Rounding: Pain: assessed pain level. Position: states comfortable and repositioned. Personal care /toileting: denies toileting needs and mouth care. Proximity of possessions / care items: call light within easyreach. Plug ins: assured IV pump plugged in; checked status of equipment in use; located all cords, tubes,and lines to prevent fall hazard. Set expectations: advised patient of rounding protocol timing and asked ifthey needed anything else at this time. The patient is calm and resting quietly and has had no adversereaction.GI / : The patient reports abdominal pain. Abdomen soft and nontender. Bowel sounds within normal limits.SKIN: Skin is warm and dry. Skin color within normal limits. Two patient identifiers checked. Call lightplaced in reach. Side rails up x 2. Bed placed in lowest position. Brakes of bed on. --19:12/07/19Mariano tang R.N.19:12/07/19. BP: 129/82. MAP: 97. HR: 74. RR: 18. O2 saturation: 97%. Pain level now: 12/25.--:12/07/19 Mariano Melton R.N.19:12/07/2019 Phenergan IVPB via IV site #1 Response: no adverse reaction pain is improving.Symptoms have improved the patient feels better. --19:12/07/19 Mariano Melton R.N.19:16 12/07/19. BP: 128/82. MAP: 97. HR: 77. RR: 25. O2 saturation: 96%. --19:26 12/07/19 Graciela Shields ER Hewq895:00 12/07/2019 IV Fluids IV NS via IV site #1 Discontinued: bag #1 completed. Total amount infused:1000 mL. IV patency established. IV site checked: no pain, redness, or swelling. IV flushed thoroughly.--20:19 12/07/19 Mariano Melton R.N. 4 Clinical Report - Nurses [facility] Emergency Department [address] [place] [address] Phone #: ext- [phone] 12/07/2019 18:51 Patient: NATALIYA BEASLEY Sex: F : 1995 Age: 24y20:13 12/07/2019 Started 40 mg of Protonix (Pantoprazole Sodium) IVPB in bag #1 100 mL; at 400 mL/hrover 15 minute(s) via site #1. via IV pump. Allergies verified and confirmed 5 rights. IV patency established.IV site checked: no pain, redness, or swelling. IV flushed thoroughly pre- and post- medicationadministration. Information reviewed with patient including reason for taking this medication, signs ofallergic reaction and precautions. Verbalizes understanding. --20:13 12/07/19 Mariano Melton R.N.20:14 12/07/2019 Started 40 mg of Protonix (Pantoprazole Sodium) IVPB in bag #1 100 mL; at 500 mL/hrover 15 minute(s) via site #1. via IV pump. Allergies verified and confirmed 5 rights. IV patency established.IV site checked: no pain, redness, or swelling. IV flushed thoroughly pre- and post-medicationadministration. Information reviewed with patient including reason for taking this medication, signs ofallergic reaction and precautions. Verbalizes understanding. --20:14 12/07/19 Mariano Melton R.N.Correction. --20:15 12/07/19 Mariano Melton R.N.20:17 12/07/2019 Started 20 mg of Pepcid IVPB in bag #1 50 mL; at 200 mL/hr over 15 minute(s) via site#1. via IV pump. Allergies verified and confirmed 5 rights. IV patency established. IV site checked: no pain,redness, or swelling. IV flushed thoroughly pre- and post-medication administration. Information reviewedwith patient including reason for taking this medication, signs of allergic reaction and precautions.Verbalizes understanding. --20:17 12/07/19 Mariano Melton R.N.20:18 12/07/2019 Started 2 gm of Magnesium Sulfate Drip IV in bag #1 50 mL; at 50 mL/hr over 1 hour(s)via site #2. via IV pump. Allergies verified and confirmed 5 rights. IV patency established. IV site checked:no pain, redness, or swelling. IV flushed thoroughly pre- and post-medication administration. Informationreviewed with patient including reason for taking this medication, signs of allergic reaction and precautions.Verbalizes understanding. --20:18 12/07/19 Mariano Melton R.N.21:00 12/07/2019 Magnesium Sulfate Drip IV via IV site #2 Discontinued: bag #1 completed. Total amountinfused: 50 mL. IV patency established. IV site checked: no pain, redness, or swelling. IV flushedthorou ghly. --21:00 12/07/19 Mariano Melton R.N.21:00 12/07/2019 Magnesium Sulfate Drip IV via IV site #2 Response: no adverse reaction pain isimproving. Symptoms have improved the patient feels better. --21:00 12/07/19 Mariano Melton R.N.21:01 12/07/2019 Pepcid IVPB via IV site #1 Discontinued: bag #1 completed. Total amount infused: 50mL. IV patency established. IV site checked: no pain, redness, or swelling. IV flushed thoroughly. --21: Mariano Melton R.N.21:12/07/2019 Protonix IVPB via IV site #1 Discontinued: completed. Total amount infused: 100 mL. IVpatency established. IV site checked: no pain, redness, or swelling. IV flushed thoroughly. --21:12/07/19Mariano tang R.N.21:12/07/2019 Phenergan IVPB via IV site #1 Discontinued: completed. Total amount infused: 50 mL.IV patency established. IV site checked: no pain, redness, or swelling. IV flushed thoroughly. --21: Mariano Melton R.N. 5 Clinical Report - Nurses [facility] Emergency Department [address] [place] [address] Phone #: ext- [phone] 12/07/2019 18:51 Patient: NATALIYA BEASLEY Sex: F : 1995 Age: 24yDISPOSITION / DISCHARGE 21:12 12/07/2019 Site #2 removed upon discharge. Pressure dressing and bandaid applied. --21:12/07/19 Mariano Melton R.N. 21:12/07/2019 Site #1 removed upon discharge. Pressure dressing and bandaid applied. --21:12/07/19 Mariano Melton R.N. No learning barriers present. Discharge instructions provided and reviewed with the patient and parent. Reviewed warnings. Reviewed medication(s). Treatments reviewed. Reviewed referrals. Patient and parent verbalized understanding. Written instructions provided in American. The patient was discharged by the physician. She was discharged home and accompanied by parent. She left ambulatory and via private vehicle. Parent driving. Patient has no belongings. --21:12/07/19 Mariano Melton R.N. 21:12/07/19. BP: 108/71. MAP: 83. HR: 58. RR: 16. O2 saturation: 97%. Temp: 98.1 F. Pain level now: 07/25. --21:12/07/19 Mariano Melton R.N. Departure time: 21:13 12/07/2019. --21:13 12/07/19 Mariano Melton R.N .Locked/Released at 12/07/2019 21:18 by Mariano Melton R.N. Name Value Range Interpretation Code Description Data Michelle rce(s) Supporting Document(s) ID Date Data Source [id number] 12/07/2019 06:58:00 PM EDT [facility] 1 Clinical Report - Physicians/Mid Levels [facility] Emergency Department [address] [place] [address] Phone #: ext- [phone] 12/07/2019 18:51 Patient: NATALIYA BEASLEY Sex: F : 1995 Age: 24y Time Seen: 19:00 12/07/2019; initial patient contact. Arrived- By private vehicle. Historian- patient. Disposition decision: 20:29 12/07/2019.HISTORY OF PRESENT ILLNESS Chief Complaint: VOMITING. No recent travel. She has had severe nausea and vomiting. The vomiting has occurred several times. No diarrhea, black stools, bloody stools, abdominal pain or constipation. No flank pain, history of possible bad food exposure, known contact with a sick individual or change in routine. Has not recently been camping or on antibiotics. This started last night after drinking bottle of wine and smoking marijuana and is still present. The illness is described as severe. Similar symptoms previously. Patient has had similar symptoms many times. ( when she drinks alcohol and smokes marijuana). Recent medical care: The patient was seen recently at this facility. ( 11-24-19, admitted for hypoK).REVIEW OF SYSTEMSNo fever, muscle aches, difficulty with urination, dark urine or headache. No sore throat, cough, chestpain, difficulty breathing or excessive urination. No skin rash, jaundice, back pain, fainting episodes orblurred vision. The patient has had dizziness. All other systems reviewed and are negative.PAST HISTORYSee nurses notes. Problems: Alcoholism. Hypokalemia. Hyponatremia. Medications: None. Allergies: No Known Drug Allergy.SOCIAL HISTORYLight tobacco smoker. Regular alcohol use. History of heavy drug use: marijuana.ADDITIONAL NOTESThe nursing notes have been reviewed with agreement regarding the chief complaint, HPI, ROS, PMH andpatient medications and allergies. 2 Clinical Report - Physicians/Mid Levels [facility] Emergency Depa rtment [address] [place] [address] Phone #: ext- [phone] 12/07/2019 18:51 Patient: NATALIYA BEASLEY Sex: F : 1995 Age: 24yPHYSICAL EXAMVital Signs: 12/07/2019 19:19 BP: 129/82. MAP: 97. HR: 74. RR: 18. O2 saturation: 97%. Pain level now:8.12/07/2019 18:52 BP: 137/89. MAP: 105. HR: 100. RR: 14. O2 saturation: 100%. Temp: 98 F. Pain levelnow: 9/10. Have been reviewed. Oxygen saturation normal.Appearance: Alert. Oriented X3. Anxious. Patient in mild distress.Eyes: Pupils equal, round and reactive to light. Eyes normal inspection.ENT: Ears normal. Nose normal. Mildly dry mucous membranes present.Neck: Normal inspection. Neck supple.CVS: Tachycardia. Normal heart rhythm. Heart sounds normal. Pulses normal.Respiratory: No respiratory distress. Painless inspiration. Breath sounds normal.Abdomen: Soft and nontender. Bowel sounds normal. No organomegaly. No mass. Femoral pulsesequal.Back: Normal inspection.Skin: Skin warm and dry. Normal skin color. No rash. Normal skin turgor.Extremities: Extremities exhibit normal ROM. No lower extremity edema.Neuro: Oriented X 3. No motor deficit. No sensory deficit. Reflexes normal.LABS, X-RAYS, AND EKGEKG: No acute process. Tachycardia (126/min). Normal ST and T waves. NAD. EKG unchangedwhen compared with prior EK G. (November 24 2019). The study has been interpreted contemporaneously byme. Artifact present. Interpretation time: 19:11 12/07/2019.Laboratory Tests: Laboratory tests have been ordered, with results reviewed and considered in themedical decision making process. ETOH: (ANGELY: 12/07/2019 19:00) ( [facility] 12/07/[place] 19:44) Final results Test Result Flag Units (Reference) ALCOHOL ETHYL BLOOD CORRECTED REPORT ALCOHOL <10.0 MG/DL ALCOHOL % 0.00 % (0.00 - 0.01) *FOR MEDICAL PURPOSES ONLY* FOLLOWING RESULTS REPORTED IN ERROR ALCOHOL % { CORRECT CBC w Diff: (ANGELY: 12/07/2019 19:00) ( [facility] 12/07/2019 19:23) Final results Test Result Flag Units (Reference) CBC W/AUTOMATED DIFF COMPLETE BLOOD COUNT WBC 14.8 H 10/uL (4.2 - 11.0) RBC 4.77 10/uL (4.20 - 5.40) HEMOGLOBIN 15.0 g/dL (12.0 - 16.0) HEMATOCRIT 43.9 % (37.0 - 47.0) MCV 92.0 fL (81.0 - 101) MCH 31.4 pg (27.0 - 34.0) MCHC 34.2 g/dL (31.0 - 36.0) RDW 13.1 % (11.5 - 14.5) PLATELETS 387 10/uL (150 - 450) 3 Clinical Report - Physicians/Mid Levels [facility] Emergency Department [address] [place] [address] Phone #: ext- [phone] 12/07/2019 18:51 Patient: NATALIYA BEASLEY Sex: F : 1995 Age: 24y MPV 10.0 fL (7.4 - 10.4) NEUT 88.4 H % (37.0 - 80.0) LYMPH 8.9 L % (25.0 - 40.0) MONO 2.3 L % (3.0 - 8.0) EOS 0.0 % (0.0 - 7.0) BASO 0.1 % (0.0 - 2.5) %IG 0.3 H % (0.0 - 0.0) %NRBC 0.0 % (0.0 - 0.0) #NEUT 13.06 H 10/uL (2.00 - 6.90) #LYMPH 1.32 10/uL (0.60 - 3.40) #MONO 0.34 10/uL (0.00 - 0.90) #EOS 0.00 10/uL (0.00 - 0.70) #BASO 0.02 10/uL (0.00 - 0.20) #IG 0.04 10/uL (0.00 - 0.10) #NRBC 0.00 10/uL (0.00 - 0.00) MANUAL DIFF NOT INDICATED RBC MORPH NOT INDICATEDCMP: (ANGELY: 12/07/2019 19:00) ( MsgRcvd 12/07/2019 19:43) Final results Test Result Flag Units (Reference) COMPREHENSIVE METABOLIC PANEL COMPREHENSIVE METABOLIC PANEL SODIUM 140 mEq/L (134 - 153) POTASSIUM 4.4 mEq/L (3.6 - 5.0) CHLORIDE 94 L mEq/L (98 - 107) CO2 23 MEQ/L (22 - 30) GLUCOSE 127 H MG/DL (65 - 110) BUN 12 MG/DL (7 - 21) CREATININE 0.6 L MG/DL (0.7 - 1.5) BUN/CREAT 20 (8 - 27) TOTAL PROTEIN 8.1 G/DL (6.3 - 8.2) ALBUMIN 5.1 H G/DL (3.9 - 5.0) GLOBULIN 3.0 GM/DL (2.4 - 3.2) A/G RATIO 1.7 (0.8 - 2.0) CALCIUM 10.8 H MG/DL (8.4 - 10.2) TOTAL BILI 0.8 MG/DL (0.2 - 1.3) ALKALINE PHOS 82 U/L (38 - 126) SGOT/AST 22 U/L (5 - 40) SGPT/ALT 26 U/L (7 - 56) ANION GAP 23.0 H mmol/L (8.0 - 16.0) AGE 24 yrs NON-AA GFR >60 mL/min AFR AMER GFR > 60 mL/min Male GFR Interprentation 20-49 yrs >60 mL/min [id number] yrs >56 mL/min Normal 60-69 yrs >49 mL/min Normal 70-79yrs>42 mL/min Normal 80 and above >35 mL/min Normal Female GFRInterpretation 20-39 yrs >60 mL/min Normal 40-49 yrs >58 mL/minNormal 50-59 yrs >51 mL/min Normal 60-69 yrs >45 mL/min Niaqkb76-02 yrs >39 mL/min Normal 80 and above >32 mL/min NormalLipase: (ANGELY: 12/07/2019 19:00) ( MsgRcvd 12/07/2019 19:44) Final results Test Result Flag Units (Reference) LIPASE 12 L U/L (13 - 60)Beta-HCG, Qual Serum: (ANGELY: 12/07/2019 19:00) ( MsgRcvd 12/07/2019 19:39) Final results Test Result Flag Units (Reference) HCG SERUM QUAL NEGATIVE (NORMAL: NEGAT 4 Clinical Report - Physicians/Mid Levels [facility] Emergency Department [address] [place] [address] Phone #: ext- [phone] 12/07/2019 18:51 Patient: NATALIYA BEASLEY Sex: F : 1995 Age: 24y HCG SERUM QL REENTER NEGATIVE (NORMAL: NEGAT { KIT LOT # [id number] ){ KIT EXP DATE 02.27.21 ){ PROCEDURAL CONTROL VALID ) Magnesium: (ANGELY: 12/07/2019 19:00) ( Mscvd 12/07/2019 19:44) Final results Test Result Flag Units (Reference) MAGNESIUM 1.3 L MG/DL (1.7 - 2.2) Troponin-T: (ANGELY: 12/07/2019 19:00) ( MsgRcvd 12/07/2019 19:42) Final results Test Result Flag Units (Reference) TROPONIN T <0.01 NG/ML (0.00 - 0.10) TROPONIN T0.1 ng/ml Recommended as the clinical threshold value forTroponin T..PROGRESS AND PROCEDURESCourse of Care: workup all in and reviewed; K is nml, but Mg is slightly low; will add some magnesium 20:28 12/07/19. pt doing markedly better, no vomiting, ready to go home; advised to stop ETOH and Cannabis use; d/c instructions given. Patient counseled in person regarding the patient's stable condition, test results, diagnosis and need for follow-up. Patient agrees with plan of care. Disposition: Condition: good and stable. Discharge decision based on the following: patient's condition is stable; patient's condition is improved; patient is ambulatory; patient is active; patient drinking fluids; patient's pain is controlled; patient's exam is improved; no seriously abnormal test results; improving condition on repeat evaluation; social support is good; transportation is available; follow-up is available; clinical impression is consistent with outpatient treatment.CLINICAL IMPRESSION Intractable vomiting with nausea. Cannabis Hyperemesis Syndrome.INS TRUCTIONS Drink plenty of fluids. Avoid alcohol and NSAIDS. NSAIDS include aspirin, ibuprofen (Advil) and naproxen (Aleve). Avoid fatty, fried/greasy, lactose-containing (such as milk, cheese and ice cream), salty and spicy foods. No alcohol. Do not smoke. (PLEASE STOP CANNABIS USE). 5 Clinical Report - Physicians/Mid Levels [facility] Emergency Department [address] [place] [address] Phone #: ext- [phone] 12/07/2019 18:51 Patient: NATALIYA BEASLEY Sex: F : 1995 Age: 24y Warnings: Further evaluation is necessary. It is very important to follow up with a healthcare provider. GENERAL WARNINGS: Return or contact your physician immediately if your condition worsens or changes unexpectedly, if not improving as expected, or if other problems arise. SPECIFICALLY, return if you develop pain in the abdomen, pelvis or back, fever, vomiting, the inability to keep fluids down, blood in vomitus, blood in diarrhea, fainting or lightheadedness. Your Current Medications: . No home medication. Prescription Medications: promethazine 12.5 mg tablet Take 1 tablet four times a day as needed for 5 days -- Dispense 20 tablet. Refills: 0. Substitution permitted. [id number] - [address] [place] [address]. . Pepcid 20 mg tablet Take 1 tablet twice a day for 7 days -- Dispense 14 tablet. Refills: 0. Substitution permitted. [facility] [address] [place] [address]. . Follow- up: Return to the emergency department as needed. Follow up with your healthcare provider in two days even if well. Call for an appointment. Reason for referral: evaluation and treatment. Summary of care provided to patient via paper. Understanding of the discharge instructions verbalized by patient. Expected course of illness, discharge instructions, activity level, prescriptions x2, follow-up appointment and risks and benefits of treatment reviewed with patient and understanding verbalized. Agrees to plan of care.(Electronically signed by Leena Martínez M.D. 12/07/2019 22:34) Name Value Range Interpretation Code Description Data Michelle rce(s) Supporting Document(s) ID Date Data Source [id number] 12/07/2019 07:44:00 PM EDT [facility] Name Value Range Interpretation Code Description Data Michelle rce(s) Supporting Document(s) Magnesium [Mass/volume] in Serum or Plasma 1.3 MG/DL 1.7 - 2.2 L [facility] ID Date Data Source [id number] [facility]/07[facility]:44[facility] [facility] Value Range Interpretation Code Description Data Michelle rce(s) Supporting Document(s) Lipase [Enzymatic activity/volume] in Serum or Plasma 12 U/L 13 - 60 L [facility] ID Date Data Source [id number] 12/07/2019 07:43:00 PM [facility] Name Value Range Interpretation Code Description Data Michelle rce(s) Supporting Document(s) ALCOHOL ETHYL BLOOD [facility] CORRECTE D REPORT Ethanol [Moles/volume] in Blood <10.0 MG/DL [facility] ALCOHOL % 0.00 % 0.00 - 0.01 [facility] *FOR MEDICAL PURPOSES ONLY * FOLLOWING RESULTS REPORTED IN ERROR ALCOHOL % { CORRECT ID Date Data Source [id number] 12/07/2019 07:43:00 PM EDT [facility] Name Value Range Interpretation Code Description Data Michelle rce(s) Supporting Document(s) COMPREHENSIVE METABOLIC PANEL [facility] COMPREHENSIVE METABOLIC PANEL Sodium [Moles/volume] in Serum or Plasma 140 mEq/L 134 - 153 [facility] Potassium [Moles/volume] in Serum or Plasma 4.4 mEq/L 3.6 - 5.0 [facility] Chloride [Moles/volume] in Serum or Plasma 94 mEq/L 98 - 107 L [facility] Carbon dioxide, total [Moles/volume] in Serum or Plasma 23 MEQ/L 22 - 30 [facility] Glucose [Mass/volume] in Serum or Plasma 127 MG/DL 65 - 110 H [facility] BUN 12 MG/DL 7 - 21 [facility] Creatinine [Mass/volume] in Serum or Plasma 0.6 MG/DL 0.7 - 1.5 L [facility] BUN/CREAT 20 8 - 27 [facility] Protein [Mass/volume] in Serum or Plasma 8.1 G/DL 6.3 - 8.2 [facility] Albumin [Mass/volume] in Serum or Plasma 5.1 G/DL 3.9 - 5.0 H [facility] Globulin [Mass/volume] in Serum by calculation 3.0 GM/DL 2.4 - 3.2 [facility] A/G RATIO 1.7 0.8 - 2.0 [facility] Calcium [Mass/volume] in Serum or Plasma 10.8 MG/DL 8.4 - 10.2 H [facility] Bilirubin.total [Mass/volume] in Serum or Plasma 0.8 MG/DL 0.2 - 1.3 [facility] Alkaline phosphatase [Enzymatic activity/volume] in Serum or Plasma 82 U/L 38 - 126 [facility] Aspartate aminotransferase [Enzymatic activity/volume] in Serum or Plasma 22 U/L 5 - 40 [facility] Alanine aminotransferase [Enzymatic activity/volume] in Seru m or Plasma 26 U/L 7 - 56 [facility] Anion gap 3 in Serum or Plasma 23.0 mmol/L 8.0 - 16.0 H [facility] AGE 24 yrs [facility] NON-AA GFR >60 mL/min [facility] AFR AMER GFR >60 mL/min [facility] Male GFR In terprentation 20-49 yrs >60 mL/min Normal 50-59 yrs >56 mL/min Normal 60-69 yrs >49 mL/min Normal 70-79yrs >42 mL/min Normal 80 and above >35 mL/min Normal Female GFR Interpretation 20-39 yrs >60 mL/min Normal 40-49 yrs >58 mL/min Normal 50-59 yrs >51 mL/min Normal 60-69 yrs >45 mL/min Normal 70-79 yrs >39 mL/min Normal 80 and above >32 mL/min Normal ID Date Data Source [id number] 12/07/2019 07:42:00 PM EDT [facility] Name Value Range Interpretation Code Description Data Michelle rce(s) Supporting Document(s) TROPONIN T <0.01 NG/ML 0.00 - 0.10 [facility] o[facility]ital TROPONIN T0.1 ng/ml Recommended as the c linical threshold value forTroponin T. ID Date Data Source [id number] 12/07/2019 07:38:00 PM EDT [facility] Name Value Range Interpretation Code Description Data Michelle rce(s) Supporting Document(s) HCG SERUM QUAL NEGATIVE NORMAL: NEGATIVE [facility] HCG SERUM QL REENTER NEGATIVE NORMAL: NEGATIVE [facility] { KIT LOT # [id number] ){ KIT EXP DATE 02.27.21 ){ PROCEDURAL CONTROL VALID ) ID Date Data Source [id number] 12/07/2019 07:23:00 PM EDT [facility] Name Value Range Interpretation Code Description Data Michelle rce(s) Supporting Document(s) CBC W/AUTOMATED DIFF [facility] COMPLETE BLOOD COUNT Leukocytes [#/volume] in Blood by Automated count 14.8 10^3/uL 4.2 - 11.0 H [facility] Erythrocytes [#/volume] in Blood by Automated count 4.77 10^6/uL 4. 20 - 5.40 [facility] Hemoglobin [Mass/volume] in Blood 15.0 g/dL 12.0 - 16.0 [facility] Hematocrit [Volume Fraction] of Blood by Automated count 43.9 % 3 7.0 - 47.0 [facility] Erythrocyte mean corpuscular volume [Entitic volume] by Auto mated count 92.0 fL 81.0 - 101 [facility] Erythrocyte mean corpuscular hemoglobin [Entitic mass] by Automated count 31.4 pg 27.0 - 34.0 [facility] Erythrocyte mean corpuscular hemoglobin concentration [Mass/volume] by Automated count 34.2 g/dL 31.0 - 36.0 [facility] Erythrocyte distribution width [Ratio] by Automated count 13.1 % 11.5 - 14.5 [facility] Platelets [#/volume] in Blood by Automated count 387 10^3/uL 150 - 45 0 [facility] Platelet mean volume [Entitic volume] in Blood by Automated count 10.0 fL 7.4 - 10.4 [facility] Neutrophils/100 leukocytes in Blood by Automated count 88.4 % 37. 0 - 80.0 H [facility] Lymphocytes/100 leukocytes in Blood by Manual count 8.9 % 25.0 - 40.0 L [facility] Monocytes/100 leukocytes in Blood by Automated count 2.3 % 3.0 - 8.0 L [facility] Eosinophils/100 leukocytes in Blood by Automated count 0.0 % 0.0 - 7.0 [facility] Basophils/100 leukocytes in Blood by Automated count 0.1 % 0.0 - 2.5 [facility] %IG 0.3 % 0.0 - 0.0 H [facility] al %NRBC 0.0 % 0.0 - 0.0 [facility] al Neutrophils [#/volume] in Blood by Automated count 13.06 10^3/uL 2. 00 - 6.90 H [facility] Lymphocytes [#/volume] in Blood by Automated count 1.32 10^3/uL 0.60 - 3.40 [facility] Monocytes [#/volume] in Blood by Automated count 0.34 10^3/uL 0.00 - 0.90 [facility] Eosinophils [#/volume] in Blood by Automated count 0.00 10^3/uL 0.00 - 0.70 [facility] Basophils [#/volume] in Blood by Automated count 0.02 10^3/uL 0.00 - 0.20 [facility] #IG 0.04 10^3/uL 0.00 - 0.10 [facility] #NRBC 0.00 10^3/uL 0.00 - 0.00 [facility] MANUAL DIFF NOT INDICATED [facility] RBC MORPH NOT INDICATED [facility] ID Date Data Source [id number] 11/26/2019 12:29:00 PM EDT [facility] [address] [place] [address] RESPIRATORY CARE REPORT ==== ---------NAME------- NUMBER SEX AGE ADMIT DISC. XRAY# F/C TYPERITTDE Martinez [id number] F [id number] 11/24/19 [id number] O/P DATE OF : 1995 M/R# [id number] #: [id number] LOCATION: EMERGENCY DEPT EKG [id number] COMP LETE:11/26/19 07:34 [place] [id number] PHYSICIAN: CLAUDIO Name Value Range Interpretation Code Description Data Michelle rce(s) Supporting Document(s) ID Date Data Source [id number] 11/26/2019 07:54:00 AM EDT [facility] Name Value Range Interpretation Code Description Data Michelle rce(s) Supporting Document(s) BASIC METABOLIC PANEL [facility] BASIC METABOLIC PANEL Sodium [Moles/volume] in Serum or Plasma 135 mEq/L 134 - 153 [facility] Potassium [Moles/volume] in Serum or Plasma 4.0 mEq/L 3.6 - 5.0 [facility] Chloride [Moles/volume] in Serum or Plasma 102 mEq/L 98 - 107 [facility] Carbon dioxide, total [Moles/volume] in Serum or Plasma 26 MEQ/L 22 - 30 [facility] Glucose [Mass/volume] in Serum or Plasma 89 MG/DL 65 - 110 [facility] BUN 5 MG/DL 7 - 21 L [facility] al Creatinine [Mass/volume] in Serum or Plasma 0.5 MG/DL 0.7 - 1.5 L [facility] BUN/CREAT 10 8 - 27 [facility] al Calcium [Mass/volume] in Serum or Plasma 8.7 MG/DL 8.4 - 10.2 [facility] Anion gap 3 in Serum or Plasma 7.0 mmol/L 8.0 - 16.0 L [facility] AGE 24 yrs [facility] al AFR AMER GFR >60 mL/min [facility] NON-AA GFR >60 mL/min [facility] ital Male GFR Inter prentation 20-49 yrs >60 mL/min Normal 50-59 yrs >56 mL/min Normal 60-69 yrs >49 mL/min Normal 70-79yrs >42 mL/min Normal 80 and above >35 mL/min Normal Female GFR Interpretation 20-39 yrs >60 mL/min Normal 40-49 yrs >58 mL/min Normal 50-59 yrs >51 mL/min Normal 60-69 yrs >45 mL/min Normal 70-79 yrs >39 mL/min Normal 80 and above >32 mL/min Normal ID Date Data Source [id number] 11/26/2019 07:28:00 AM EDT [facility] Name Value Range Interpretation Code Description Data Michelle rce(s) Supporting Document(s) CBC NO DIFF [facility] ital COMPLETE BLOOD COUNT Leukocytes [#/volume] in Blood by Automated count 9.9 10^3/uL 4.2 - 1 1.0 [facility] Erythrocytes [#/volume] in Blood by Automated count 4.08 10^6/uL 4. 20 - 5.40 L [facility] Hemoglobin [Mass/volume] in Blood 12.7 g/dL 12.0 - 16.0 [facility] Hematocrit [Volume Fraction] of Blood by Automated count 38.0 % 3 7.0 - 47.0 [facility] Erythrocyte mean corpuscular volume [Entitic volume] by Auto mated count 93.1 fL 81.0 - 101 [facility] Erythrocyte mean corpuscular hemoglobin [Entitic mass] by Automated count 31.1 pg 27.0 - 34.0 [facility] Erythrocyte mean corpuscular hemoglobin concentration [Mass/volume] by Automated count 33.4 g/dL 31.0 - 36.0 [facility] Erythrocyte distribution width [Ratio] by Automated count 12.2 % 11.5 - 14.5 [facility] Platelets [#/volume] in Blood by Automated count 196 10^3/uL 150 - 45 0 [facility] Platelet mean volume [Entitic volume] in Blood by Automated count 10.3 fL 7.4 - 10.4 [facility] ID Date Data Source [id number] 11/26/2019 02:54:00 AM EDT [facility] Name Value Range Interpretation Code Description Data Michelle rce(s) Supporting Document(s) BASIC METABOLIC PANEL [facility] BASIC METABOLIC PANEL Sodium [Moles/volume] in Serum or Plasma 134 mEq/L 134 - 153 [facility] Potassium [Moles/volume] in Serum or Plasma 3.8 mEq/L 3.6 - 5.0 [facility] Chloride [Moles/volume] in Serum or Plasma 100 mEq/L 98 - 107 [facility] Carbon dioxide, total [Moles/volume] in Serum or Plasma 27 MEQ/L 22 - 30 [facility] Glucose [Mass/volume] in Serum or Plasma 82 MG/DL 65 - 110 [facility] BUN 7 MG/DL 7 - 21 [facility] Creatinine [Mass/volume] in Serum or Plasma 0.5 MG/DL 0.7 - 1.5 L [facility] BUN/CREAT 14 8 - 27 [facility] Calcium [Mass/volume] in Serum or Plasma 8.6 MG/DL 8.4 - 10.2 [facility] Anion gap 3 in Serum or Plasma 7.0 mmol/L 8.0 - 16.0 L [facility] AGE 24 yrs [facility] al AFR AMER GFR >60 mL/min [facility] Ho spital NON-AA GFR >60 mL/min [facility] ital Male GFR Inter prentation 20-49 yrs >60 mL/min Normal 50-59 yrs >56 mL/min Normal 60-69 yrs >49 mL/min Normal 70-79yrs >42 mL/min Normal 80 and above >35 mL/min Normal Female GFR Interpretation 20-39 yrs >60 mL/min Normal 40-49 yrs >58 mL/min Normal 50-59 yrs >51 mL/min Normal 60-69 yrs >45 mL/min Normal 70-79 yrs >39 mL/min Normal 80 and above >32 mL/min Normal ID Date Data Source [id number] 11/25/2019 10:11:00 PM EDT [facility] Name Value Range Interpretation Code Description Data Michelle rce(s) Supporting Document(s) BASIC METABOLIC PANEL [facility] BASIC METABOLIC PANEL Sodium [Moles/volume] in Serum or Plasma 136 mEq/L 134 - 153 [facility] Potassium [Moles/volume] in Serum or Plasma 3.5 mEq/L 3.6 - 5.0 L [facility] Chloride [Moles/volume] in Serum or Plasma 99 mEq/L 98 - 107 [facility] Carbon dioxide, total [Moles/volume] in Serum or Plasma 27 MEQ/L 22 - 30 [facility] Glucose [Mass/volume] in Serum or Plasma 75 MG/DL 65 - 110 [facility] BUN 9 MG/DL 7 - 21 [facility] al Creatinine [Mass/volume] in Serum or Plasma 0.5 MG/DL 0.7 - 1.5 L [facility] BUN/CREAT 18 8 - 27 [facility] Calcium [Mass/volume] in Serum or Plasma 8.8 MG/DL 8.4 - 10.2 [facility] Anion gap 3 in Serum or Plasma 10.0 mmol/L 8.0 - 16.0 [facility] AGE 24 yrs [facility] al AFR AMER GFR >60 mL/min [facility] Ho spital NON-AA GFR >60 mL/min [facility] ital Male GFR Inter prentation 20-49 yrs >60 mL/min Normal 50-59 yrs >56 mL/min Normal 60-69 yrs >49 mL/min Normal 70-79yrs >42 mL/min Normal 80 and above >35 mL/min Normal Female GFR Interpretation 20-39 yrs >60 mL/min Normal 40-49 yrs >58 mL/min Normal 50-59 yrs >51 mL/min Normal 60-69 yrs >45 mL/min Normal 70-79 yrs >39 mL/min Normal 80 and above >32 mL/min Normal ID Date Data Source [id number] 11/25/2019 06:07:00 PM EDT [facility] Name Value Range Interpretation Code Description Data Michelle rce(s) Supporting Document(s) BASIC METABOLIC PANEL [facility] BASIC METABOLIC PANEL Sodium [Moles/volume] in Serum or Plasma 132 mEq/L 134 - 153 L [facility] Potassium [Moles/volume] in Serum or Plasma 3.2 mEq/L 3.6 - 5.0 L [facility] Chloride [Moles/volume] in Serum or Plasma 94 mEq/L 98 - 107 L [facility] Carbon dioxide, total [Moles/volume] in Serum or Plasma 28 MEQ/L 22 - 30 [facility] Glucose [Mass/volume] in Serum or Plasma 86 MG/DL 65 - 110 [facility] BUN 11 MG/DL 7 - 21 [facility] al Creatinine [Mass/volume] in Serum or Plasma 0.6 MG/DL 0.7 - 1.5 L [facility] BUN/CREAT 18 8 - 27 [facility] al Calcium [Mass/volume] in Serum or Plasma 8.7 MG/DL 8.4 - 10.2 [facility] Anion gap 3 in Serum or Plasma 10.0 mmol/L 8.0 - 16.0 [facility] 24 [facility] GFR >60 mL/min [facility] spital NON-AA GFR >60 mL/min [facility] Hosp ital Male GFR Inter prentation 20-49 yrs >60 mL/min Normal 50-59 yrs >56 mL/min Normal 60-69 yrs >49 mL/min Normal 70-79yrs >42 mL/min Normal 80 and above >35 mL/min Normal Female GFR Interpretation 20-39 yrs >60 mL/min Normal 40-49 yrs >58 mL/min Normal 50-59 yrs >51 mL/min Normal 60-69 yrs >45 mL/min Normal 70-79 yrs >39 mL/min Normal 80 and above >32 mL/min Normal ID Date Data Source [id number] 11/25/2019 01:04:00 PM EDT [facility] [address] [address] RESPIRATORY CARE REPORT ==== ---------NAME------- NUMBER SEX AGE ADMIT DISC. XRAY# F/C TYPERIARIN Martinez [id number] F [id number] 11/24/19 [id number] O/P DATE OF : 1995 M/R# [id number] #: [phone] [id number] LOCATION: EMERGENCY DEPT EKG [id number] COMP LETE:11/25/19 06:00 PAD [id number] PHYSICIAN: CLAUDIO Name Value Range Interpretation Code Description Data Michelle rce(s) Supporting Document(s) ID Date Data Source [id number] 11/25/2019 01:35:00 PM EDT [facility] Name Value Range Interpretation Code Description Data Michelle rce(s) Supporting Document(s) BASIC METABOLIC PANEL [facility] BASIC METABOLIC PANEL Sodium [Moles/volume] in Serum or Plasma 133 mEq/L 134 - 153 L [facility] Potassium [Moles/volume] in Serum or Plasma 3.3 mEq/L 3.6 - 5.0 L [facility] Chloride [Moles/volume] in Serum or Plasma 93 mEq/L 98 - 107 L [facility] Carbon dioxide, total [Moles/volume] in Serum or Plasma 32 MEQ/L 22 - 30 H [facility] Glucose [Mass/volume] in Serum or Plasma 84 MG/DL 65 - 110 [facility] BUN 12 MG/DL 7 - 21 [facility] al Creatinine [Mass/volume] in Serum or Plasma 0.6 MG/DL 0.7 - 1.5 L [facility] BUN/CREAT 20 8 - 27 [facility] Calcium [Mass/volume] in Serum or Plasma 8.9 MG/DL 8.4 - 10.2 [facility] Anion gap 3 in Serum or Plasma 8.0 mmol/L 8.0 - 16.0 [facility] AGE 24 yrs [facility] al AFR AMER GFR >60 mL/min [facility] Ho spital NON-AA GFR >60 mL/min [facility] Hosp ital Male GFR Inter prentation 20-49 yrs >60 mL/min Normal 50-59 yrs >56 mL/min Normal 60-69 yrs >49 mL/min Normal 70-79yrs >42 mL/min Normal 80 and above >35 mL/min Normal Female GFR Interpretation 20-39 yrs >60 mL/min Normal 40-49 yrs >58 mL/min Normal 50-59 yrs >51 mL/min Normal 60-69 yrs >45 mL/min Normal 70-79 yrs >39 mL/min Normal 80 and above >32 mL/min Normal ID Date Data Source [id number] 11/25/2019 10:02:00 AM EDT [facility] [address] [place] [address] PHONE: [phone] FAX: [phone] Name .................. : RITTER NATALIYA Martinez Acct Number.................. : [id number] ROOM. ................. : TR-04 Number ................... : [id number] Stay type ............. : E/R Discharge Date......... ... : Admit Date ......... : 11/24/19 Admit Phys .................... : PAUL Vazquez Date of ....... : 1995 Family Phys ................... : ZAY LÓPEZ Phone .................. : [phone] Age ................................ : 24 Film# .................. .:[id number] Sex ................................. : F Unsigned transcriptions are preliminary reports and do not represent a medical or legal document CT ABD & PELVIS W/ IV ONLY [id number] COMPLETE:11/24/19 18:06 RLB [id number] Reason(s): Abdominal Pain CT OF THE ABDOMEN AND PELVIS WITH CONTRAST: INDICATION: Abdominal pain. FINDINGS: The chest space is clear. There is normal contrast-enhanced CT appearance of the liver, spleen, pancreas, adrenal glands and kidneys. No gallbladder wall thickening or biliary duct dilatation. The visualized bowel is normal in caliber. The appendix is normal. No bowel wall thickening. The bladder and pelvis organs appear normal. No acute osseous abnormality. No lymphadenopathy. IMPRESSION: No acute intra-abdominal process. While performing the above CT examination, radiation dose reduction was accomplished utilizing automated exposure control, adjusting of the mA and kV based on the patient's body size and/or the use of imperative reconstructive techniques. CT dose: 486.7 mGycm Contrast agent in mL: 75 Isovue 370 Method of administration: Intravenous Electronically Reviewed and Signed By Page 1 of 2 [facility] [address] [place] [address] PHONE: [phone] FAX: [phone] Name .................. : RITTER NATALIYA Martinez Acct Number.................. : [id number] ROOM. ................. : TR-04 MR Number ................... : [id number] Stay type ............. : E/R Discharge Date......... ... : Admit Date ......... : 11/24/19 Admit Phys .................... : AMERNATH L Date of ....... : 1995 Family Phys ................... : COLLAZO [employer] Phone .................. : [phone] Age ................................ : 24 Film# .................. .:[id number] Sex ................................. : F Unsigned transcriptions are preliminary reports and do not represent a medical or legal document CT ABD & PELVIS W/ IV ONLY [id number] COMPLETE:11/24/19 18:06 RLB [id number] Reason(s): Abdominal Pain Genaro Lozoya M.D. , 11/25/19 10:02, [place] Transcribe Initials: FAHAD , Transcribe Date: 11/24/19 20:06, Dictation Date: Copy for: EMERGENCY DEPT via mode Copy for: 710 MED REC Page 2 of 2 Name Value Range Interpretation Code Description Data Michelle rce(s) Supporting Document(s) ID Date Data Source [id number] 11/25/2019 06:53:00 AM EDT [facility] Name Value Range Interpretation Code Description Data Michelle rce(s) Supporting Document(s) Magnesium [Mass/volume] in Serum or Plasma 2.5 MG/DL 1.7 - 2.2 H [facility] ID Date Data Source [id number] 11/25/2019 06:53:00 AM EDT [facility] Name Value Range Interpretation Code Description Data Michelle rce(s) Supporting Document(s) COMPREHENSIVE METABOLIC PANEL [facility] COMPREHENSIVE METABOLIC PANEL Sodium [Moles/volume] in Serum or Plasma 131 mEq/L 134 - 153 L [facility] Potassium [Moles/volume] in Serum or Plasma 3.5 mEq/L 3.6 - 5.0 L [facility] Chloride [Moles/volume] in Serum or Plasma 86 mEq/L 98 - 107 L [facility] Carbon dioxide, total [Moles/volume] in Serum or Plasma 35 MEQ/L 22 - 30 H [facility] Glucose [Mass/volume] in Serum or Plasma 85 MG/DL 65 - 110 [facility] BUN 16 MG/DL 7 - 21 [facility] Creatinine [Mass/volume] in Serum or Plasma 0.6 MG/DL 0.7 - 1.5 L [facility] BUN/CREAT 27 8 - 27 [facility] Protein [Mass/volume] in Serum or Plasma 6.4 G/DL 6.3 - 8.2 [facility] Albumin [Mass/volume] in Serum or Plasma 4.3 G/DL 3.9 - 5.0 [facility] Globulin [Mass/volume] in Serum by calculation 2.1 GM/DL 2.4 - 3.2 L [facility] A/G RATIO 2.0 0.8 - 2.0 [facility] Calcium [Mass/volume] in Serum or Plasma 9.2 MG/DL 8.4 - 10.2 [facility] Bilirubin.total [Mass/volume] in Serum or Plasma 1.1 MG/DL 0.2 - 1.3 [facility] Alkaline phosphatase [Enzymatic activity/volume] in Serum or Plasma 70 U/L 38 - 126 [facility] Aspartate aminotransferase [Enzymatic activity/volume] in Serum or Plasma 26 U/L 5 - 40 [facility] Alanine aminotransferase [Enzymatic activity/volume] in Seru m or Plasma 29 U/L 7 - 56 [facility] Anion gap 3 in Serum or Plasma 10.0 mmol/L 8.0 - 16.0 [facility] AGE 24 yrs [facility] al NON-AA GFR >60 mL/min [facility] ital AFR AMER GFR >60 mL/min [facility] Ho spital Male GFR In terprentation 20-49 yrs >60 mL/min Normal 50-59 yrs >56 mL/min Normal 60-69 yrs >49 mL/min Normal 70-79yrs >42 mL/min Normal 80 and above >35 mL/min Normal Female GFR Interpretation 20-39 yrs >60 mL/min Normal 40-49 yrs >58 mL/min Normal 50-59 yrs >51 mL/min Normal 60-69 yrs >45 mL/min Normal 70-79 yrs >39 mL/min Normal 80 and above >32 mL/min Normal ID Date Data Source [id number] 11/25/2019 06:24:00 AM EDT [facility] Name Value Range Interpretation Code Description Data Michelle rce(s) Supporting Document(s) CBC W/AUTOMATED DIFF [facility] COMPLETE BLOOD COUNT Leukocytes [#/volume] in Blood by Automated count 10.0 10^3/uL 4.2 - 11.0 [facility] Erythrocytes [#/volume] in Blood by Automated count 4.70 10^6/uL 4. 20 - 5.40 [facility] Hemoglobin [Mass/volume] in Blood 14.7 g/dL 12.0 - 16.0 [facility] Hematocrit [Volume Fraction] of Blood by Automated count 41.5 % 3 7.0 - 47.0 [facility] Erythrocyte mean corpuscular volume [Entitic volume] by Auto mated count 88.3 fL 81.0 - 101 [facility] Erythrocyte mean corpuscular hemoglobin [Entitic mass] by Automated count 31.3 pg 27.0 - 34.0 [facility] Erythrocyte mean corpuscular hemoglobin concentration [Mass/volume] by Automated count 35.4 g/dL 31.0 - 36.0 [facility] Erythrocyte distribution width [Ratio] by Automated count 12.0 % 11.5 - 14.5 [facility] Platelets [#/volume] in Blood by Automated count 241 10^3/uL 150 - 45 0 [facility] Platelet mean volume [Entitic volume] in Blood by Automated count 10.6 fL 7.4 - 10.4 H [facility] Neutrophils/100 leukocytes in Blood by Automated count 65.5 % 37. 0 - 80.0 [facility] Lymphocytes/100 leukocytes in Blood by Manual count 23.7 % 25.0 - 40.0 L [facility] Monocytes/100 leukocytes in Blood by Automated count 9.3 % 3.0 - 8.0 H [facility] Eosinophils/100 leukocytes in Blood by Automated count 0.7 % 0.0 - 7.0 [facility] Basophils/100 leukocytes in Blood by Automated count 0.2 % 0.0 - 2.5 [facility] %IG 0.6 % 0.0 - 0.0 H [facility] al %NRBC 0.0 % 0.0 - 0.0 [facility] al Neutrophils [#/volume] in Blood by Automated count 6.51 10^3/uL 2.00 - 6.90 [facility] Lymphocytes [#/volume] in Blood by Automated count 2.36 10^3/uL 0.60 - 3.40 [facility] Monocytes [#/volume] in Blood by Automated count 0.93 10^3/uL 0.00 - 0.90 H [facility] Eosinophils [#/volume] in Blood by Automated count 0.07 10^3/uL 0.00 - 0.70 [facility] Basophils [#/volume] in Blood by Automated count 0.02 10^3/uL 0.00 - 0.20 [facility] #IG 0.06 10^3/uL 0.00 - 0.10 [facility] ospital #NRBC 0.00 10^3/uL 0.00 - 0.00 [facility] ospital MANUAL DIFF NOT INDICATED [facility] RBC MORPH NOT INDICATED [facility] spital ID Date Data Source [id number] 11/25/2019 01:45:00 AM EDT [facility] Name Value Range Interpretation Code Description Data Michelle rce(s) Supporting Document(s) BASIC METABOLIC PANEL [facility] BASIC METABOLIC PANEL Sodium [Moles/volume] in Serum or Plasma 127 mEq/L 134 - 153 L [facility] Potassium [Moles/volume] in Serum or Plasma 2.4 mEq/L 3.6 - 5.0 LL [facility] CALL/ READ BACK JASON [facility] BY: LSA [facility] DATE/TIME 11/25/2019 0145 AM [facility] Chloride [Moles/volume] in Serum or Plasma 80 mEq/L 98 - 107 L [facility] Carbon dioxide, total [Moles/volume] in Serum or Plasma 36 MEQ/L 22 - 30 H [facility] Glucose [Mass/volume] in Serum or Plasma 105 MG/DL 65 - 110 [facility] BUN 18 MG/DL 7 - 21 [facility] Creatinine [Mass/volume] in Serum or Plasma 0.7 MG/DL 0.7 - 1.5 [facility] BUN/CREAT 26 8 - 27 [facility] Calcium [Mass/volume] in Serum or Plasma 9.2 MG/DL 8.4 - 10.2 [facility] Anion gap 3 in Serum or Plasma 11.0 mmol/L 8.0 - 16.0 [facility] AGE 24 yrs [facility] AFR AMER GFR >60 mL/min [facility] Ho spital NON-AA GFR >60 mL/min [facility] ital Male GFR Inter prentation 20-49 yrs >60 mL/min Normal 50-59 yrs >56 mL/min Normal 60-69 yrs >49 mL/min Normal 70-79yrs >42 mL/min Normal 80 and above >35 mL/min Normal Female GFR Interpretation 20-39 yrs >60 mL/min Normal 40-49 yrs >58 mL/min Normal 50-59 yrs >51 mL/min Normal 60-69 yrs >45 mL/min Normal 70-79 yrs >39 mL/min Normal 80 and above >32 mL/min Normal ID Date Data Source [id number] 11/24/2019 05:12:00 PM EDT [facility] 1 OrderSheet [facility] Emergency Department [address] [place] [address] Phone #: ext- [phone] 11/24/2019 16:57 Patient: NATALIYA BEASLEY [facility]#: [id number] Sex: F : 1995 Age: 24yWEIGHT:58.9 kg (S) HEIGHT:63 inches (S) BMI:23.0ALLERGIES: NoneCHIEF COMPLAINT: vomitingDIAGNOSIS: Vomiting, Gastritis, Hyponatremia, HypokalemiaLAB ORDERSOrder Description Priority Entered Acknowledged InitialedBeta-HCG, Qual STAT 17:14 11/24/2019 17:17 Sorbmary ellen,Serum Ariel Miller R.N., M.D.;CBC w Diff STAT 17:14 11/24/2019 17:17 Paul Fortune Lingappa Frank R.N. M.D.;CMP STAT 17:14 11/24/2019 17:17 Paul Fortune Lingappa Frank R.N. M.D.;Lipase STAT 17:14 11/24/2019 17:17 Paul Fortune Lingappa Frank R.N. M.D.;Urinalysis (Clean STAT 17:14 11/24/2019 19:09 Devika,Catch) Ariel Miller R.N., M.D.;CPK STAT 17:24 11/24/2019 17:35 Ariel Mahmood RN, M.D.;BMP STAT 18:16 11/24/2019 18:28 Paul Fortune Lingappa Frank R.N. M.D.;Magnesium STAT 18:16 11/24/2019 18:28 Paul Fortune Lingappa Frank R.N. M.D.;Magnesium STAT 18:16 11/24/2019 Initialed: 18:16 Ariel Miller M.D., Lingappa Cancelled: Duplicate Order 18:17 Yudelka; Ariel Miller M.D.DIAGNOSTIC STUDY ORDERSOrder Description Priority Entered Acknowledged InitialedCT Abd PEL W/ IV STAT 17:15 11/24/2019 17:17 Devika, 2 OrderSheet [facility] Emergency Department [address] [place] [address] Phone #: ext- [phone] 11/24/2019 16:57 Patient: NATALIYA BEASLEY Sex: F : 1995 Age: 24yContrast Only Ariel Miller R.N.(Oxygen?(No)) M.DSveta;(IV?(Yes)) Reason for Study: Abdominal PainMEDICATION/IV/DRIP/FLUID ORDERSOrder D escription Priority Entered Acknowledged InitialedNS IV : Bolus 1000 STAT 17:14 11/24/2019 17:34 DorismL, then 250 mL/hr Ariel Miller RN(NOW x1) M.DSveta;Zofran IVP 4 mg 17:14 11/24/2019 17:34 Edilma Ariel Miller RN MNakul;Protonix IVPB 40 17:14 11/24/2019 17:35 Dorismg with Dextrose Ariel Miller RN100 ml spike bag M.DSveta;(D5W)KCl Liquid PO 40 18:17 11/24/2019 18:29 Sorbero,meq (NOW x1) Ariel Miller R.N. MSvetaDSveta;KCl IVPB 10 18:17 11/24/2019 18:29 Sorbero,meq/100mL Ariel Miller R.N. MSvetaDSveta;IV NS with with 40 STAT 18:20 11/24/2019 19:41 Sorbero,meq kcl in 1 liter Ariel Miller R.N.at 200/hour: Bolus M.D.;200 mL, then 200mL/hr (NOW x1)GENERAL ORDERSOrder Description Priority Entered Acknowledged Initialed[Electronically signed by Aureliano Fortune R.N. (21:06 11/24/2019)][Electronically signed by Ariel Miller M.D. (00:42 11/25/2019)][Electronically locked by Aureliano Fortune R.N. (21:06 11/24/2019)] Name Value Range Interpretation Code Description Data Michelle rce(s) Supporting Document(s) ID Date Data Source [id number] 11/24/2019 05:12:00 PM EDT [facility] 1 Medication Reconciliation Report [facility] Emergency Department [address] [place] [address] Phone #: ext- [phone] 11/24/2019 16:57 Patient: NATALIYA BEASLEY Sex: F : 1995 Age: 24yWeight: 58.9 kgHeight/Length: 63 in.BMI: 23.0ALLERGIES: NoneThe patient's Home Medications are listed below:NONE.The source(s) of the original Home Medication information:Not obtained.The following Medications were given to the patient in the Emergency Department:NS [IV] IV Fluids bolus 1000 mL over 1000 hour(s), then 1000 mL/hr, administered: 11/24/2019 5:29:00 PMZofran [IVP] IVP 4 mg, administered: 11/24/2019 5:29:00 PMProtonix [IVPB] IVPB bolus 0, then 40 mg 200 mL/hr, administered: 11/24/2019 5:31:00 PMKCL LIQUID PO PO 40 meq, administered: 11/24/2019 6:29:00 PMKCL [IVPB] IVPB bolus 0, then 10 meq 100 mL/hr, administered: 11/24/2019 6:29:00 PMIV NS IV Fluids bolus 0, then 200 mL/hr, administered: 11/24/2019 7:41:00 PMThe following Medications were prescribed to the patient:None. Name Value Range Interpretation Code Description Data Michelle rce(s) Supporting Document(s) ID Date Data Source [id number] 11/24/2019 05:12:00 PM EDT [facility] 1 Medication Administration Record [facility] Emergency Department [address] [place] [address] Phone #: ext- [phone] 11/24/2019 16:57 Patient: NATALIYA BEASLEY Sex: F : 1995 Age: 24yWeight: 58.9 kgHeight/Length: 63 inBMI: 23ALLERGIES: None Date/Time Medication Administered Medication OrderedStart NS [IV] NS IV : Bolus 1000 mL, then 85377:29 11/24/2019 Dose: IV Fluids mL/hr (NOW x1); StatDoaminah La RN Rate: 1000 mL/hr over 1 hour(s)---- Bolus: 1000 mL over 1000 hour(s)Stop Dispensed: 1000 mL bag19:22 11/24/2019 Site: #1 right Aureliano Resendiz R.N.Given ZOFRAN [IVP] (ONDANSETRON HCL) Zofran IVP 4 mg17:29 11/24/2019 Dose: 4 mg IVPDaurelia La RN Site: #1 right ACStart PROTONIX [IVPB] (PANTOPRAZOLE Protonix IVPB 40 mg with17:31 11/24/2019 SODIUM) Dextrose 100 ml spike bag (D5W)Edilma La RN Dose: 40 mg IVPB---- Rate: 200 mL/hr over 30 minute(s)Stop Dis pensed: 100 mL bag18:57 11/24/2019 Site: #1 right Aureliano Resendiz R.N.Given KCL LIQUID PO KCl Liquid PO 40 meq (NOW x1)18:29 11/24/2019 Dose: 40 meq Syrup/Liquid POSAureliano de la cruz R.N.Start KCL [IVPB] KCl IVPB 10 meq/457mI15:29 11/24/2019 Dose: 10 meq IVPBSorbAureliano hyde R.N. Rate: 100 mL/hr---- Dispensed: 100 mL bagStop Site: #1 right AC19:38 11/24/2019Aureliano Fortune R.N.Start IV NS IV NS with with 40 meq kcl in 119:41 11/24/2019 Dose: IV Fluids liter at 200/hour: Bolus 200 mL,Aureliano Fortune R.N. Rate: 200 mL/hr over 5 hour(s) then 200 mL/hr (NOW x1); Stat---- Dispensed: 1000 mL bagContinued Upon Disposition Site: #1 right AC20:47 11/24/2019Aureliano Fortune R.N. Name Value Range Interpretation Code Description Data Michelle rce(s) Supporting Document(s) ID Date Data Source [id number] 11/24/2019 05:12:00 PM EDT [facility] 1 General Instructions [facility] Emergency Department [address] [place] [address] Phone #: ext- [phone] 11/24/2019 16:57 Patient: NATALIYA BEASLEY Sex: F : 1995 Age: 24yIntractable vomiting with nausea, dehydration and volume depletion.Acute gastritisHypokalemiaSevere hyponatremia ADDITIONAL INFORMATIONVomiting (Adult)Vomiting is a common symptom that may be due to different causes. These include gastroenteritis("stomach flu"), food poisoning and gastritis. There are other more serious causes of vomiting whichmay be hard to diagnose early in the illness. Therefore, it is important to watch for the warning signslisted below.The main danger from repeated vomiting is dehydration. This is due to excess loss of water andminerals from the body. When this occurs, your body fluids must be replaced.Home care If symptoms are severe, rest at home for the next 24 hours. Because your symptoms may be from an infection, wash your hands often and well. If soap and water are not available, use alcohol-based dip dyer to keep from spreading the infection to others. Wash your hands for at least 20 seconds. Humming the happy birthday song twice while you wash is an easy way to make sure you've washed for 20 seconds. Wash your hands after using the toilet, before and after preparing food, before eating food, after changing a diaper, cleaning a wound, caring for a sick person, and blowing your nose, coughing, or sneezing. You should also wash your hands after caring for someone who is sick, touching pet food, or treats, and touching an animal, or animal waste. You may use acetaminophen or NSAID medicines like ibuprofen or naproxen to control fever, unless another medicine was prescribed. If you have chronic liver or kidney disease or ever had a stomach ulcer or gastrointestinal bleeding, talk with your doctor before using these medicines. Aspirin should never be used in anyone under 18 years of age who is ill with a fever. It may cause severe liver damage. Don't use NSAID medicines if you are already taking one for another condition (like arthritis) or are on aspirin (such as for heart disease, or after a 2 General Instructions [facility] Emergency Department [address] [place] [address] Phone #: ext- [phone] 11/24/2019 16:57 Patient: NATALIYA BEASLEY Sex: F : 1995 Age: 24y stroke) Don't use tobacco and or drink alcohol, which may worsen your symptoms. If medicines for vomiting were prescribed, take as directed. Once vomiting stops, then follow these guidelines:During the first 12 to 24 hours follow the diet below: Fruit juices. Apple, grape juice, clear fruit drinks, and electrolyte replacement drinks. Beverages. Soft drinks without caffeine; mineral water (plain or flavored), decaffeinated tea and coffee. Soups. Clear broth and bouillon Desserts. Plain gelatin, ice pops, and fruit juice bars. As you feel better, you may add 6 to 8 ounces of yogurt per day.During the next 24 hours you may add the following to the above: Hot cereal, plain toast, bread, rolls, crackers Plain noodles, rice, mashed potatoes, chicken noodle or rice soup Unsweetened canned fruit such as applesauce, bananas (avoid pineapple and citrus) Limit caffeine and chocolate. No spices or seasonings except salt.During the next 24 hours:Gradually resume a normal diet, as you feel better and your symptoms lessen.Follow-up careFollow up with your healthcare provider, or as advised.When to seek medical adviceCall your healthcare provider right away if any of these occur: Constant right-sided lower belly pain or increasing general belly pain Continued vomiting (unable to keep liquids down) for 24 hours Vomiting blood or coffee grounds Swollen belly 3 General Instructions [facility] Emergency Department [address] [place] [address] Phone #: ext- [phone] 11/24/2019 16:57 Patient: NATALIYA BEASLEY Sex: F : 1995 Age: 24y Frequent diarrhea (more than 5 times a day); blood (red or black color) or mucus in diarrhea Reduced urine output or extreme thirst Weakness, dizziness or fainting Unusually drowsy or confused Fever of 100.4F (38C) oral or higher, or as directed Yellow color of the eyes or skin [employer]. [address] [place] [address], [place] [address]. All rights reserved. This information is not intended as asubstitute for professional medical care. Always follow your healthcare professional's instructions.Gastritis (Adult)Gastritis is inflammation and irritation of the stomach lining. You can have it for a short time (acute) julieta long lasting (chronic). Infection with bacteria called H pylori most often causes gastritis. More thana third of people in the [place] have these bacteria in their bodies. In many cases, H pylori causes noproblems or sym ptoms. In some people, though, the infection irritates the stomach lining and causesgastritis. H. pylori may be diagnosed through blood, stool, or breath tests, we well as through biopsyduring an endoscopy. Other causes of stomach irritation include drinking alcohol, smoking or chewingtobacco, or taking pain- relieving medicines called NSAIDs (such as aspirin or ibuprofen). Certaindrugs (such as cocaine) and immune conditions can also cause gastritis. 4 General Instructions [facility] Emergency Department [address] [place] [address] Phone #: ext- [phone] 11/24/2019 16:57 Patient: NATALIYA BEASLEY Sex: F : 1995 Age: 24ySymptoms of gastritis can include: Belly pain or bloating Feeling full quickly Loss of appetite Nausea or vomiting Vomiting blood or having black stools Feeling more tired than usualAn inflamed and i rritated stomach lining is more likely to develop a sore called an ulcer. To helpprevent this, gastritis should be treated.Home careIf needed, our healthcare provider may prescribe medicines. If you have H pylori infection, treating itwill likely relieve your symptoms. Other changes can help reduce stomach irritation and help it heal. If you have been prescribed medicines for H pylori infection, take them as directed. Take all of the medicine until it is finished or your healthcare provider tells you to stop, even if you feel better. Your healthcare provider may advise you not to take NSAIDs. If you take daily aspirin for your heart or other medical reasons, do not stop without talking to your healthcare provider first. Don't drink alcohol. Stop smoking. Smoking can irritate the stomach and delay healing. As much as possible, stay away from second hand smoke.Follow-up careFollow up with your healthcare provider, or as advised by our staff. You may need testing to check forinflammation or an ulcer.When to seek medical adviceCall your healthcare provider for any of the following: Stomach pain that gets worse or moves to the lower right belly (appendix area) Chest pain that appears or gets worse, or spreads to the back, neck, shoulder, or arm Frequent vomiting (can't keep down liquids) 5 General Instructions [facility] Emergency Department [address] [place] [address] Phone #: ext- [phone] 11/24/2019 16:57 Patient: NATALIYA BEASLEY Sex: F : 1995 Age: 24y Blood in the stool or vomit (red or black in color) Feeling weak or dizzy Shortness of breath Unexplained weight loss Fever of 100.4F (38C) or higher, or as directed by your healthcare provider [id number] [employer]. [address] [place] [address]. All rights reserved. This information is not intended as asubstitute for professional medical care. Always follow your healthcare professional's instructions.HypokalemiaHypokalemia means a low level of potassium in the blood. This most often occurs in people who takewater pills (diuretics). It can also occur because of severe vomiting or diarrhea. You may also have itif you take laxatives for long periods of time. It sometimes happens if you have low magnesium(hypomagnesemia). If you have this, your healthcare provider will treat the low magnesium first.A mild case of hypokalemia usually causes no symptoms. It is only found with blood testing. Moresevere potassium loss causes overall weakness, muscle or abdominal cramps, rapid or irregularheartbeats (heart palpitations), low blood pressure, and muscle weakness.Home care Take any potassium supplements as prescribed. Eat foods rich in potassium. The highest amount is found in avocado, baked potatoes, spinach, cantaloupe, cod, halibut, salmon, and scallops. White, red, or crenshaw beans are also very good sources. A modest amount of potassium is found in orange juice, bananas, carrots, and tomato juice. If you take certain types of diuretics, you will also need to take potassium supplements. If you take a diuretic, discuss potassium supplements with your doctor.Follow-up careFollow up with your healthcare provider for a repeat blood test within the next week, or as advised byour staff.When to seek medical adviceCall your healthcare provider right away if any of the following occur: Increased weakness, fatigue, or muscle cramps 6 General Instructions [facility] Emergency Department [address] [place] [address] Phone #: ext- [phone] 11/24/2019 16:57 Patient: NATALIYA BEASLEY Sex: F : 1995 Age: 24y DizzinessCall 911Call 911 if any of the following occur: Irregular heartbeat, extra beats, or very fast heart rate Loss of consciousness [phone] [employer] [place] [address]. All rights reserved. This information is not intended as asubstitute for professional medical care. Always follow your healthcare professional's instructions.HyponatremiaHyponatremia means low sodium levels in the blood. This condition most often occurs after prolongedvomiting or diarrhea, which causes your body to lose too much water and sodium. It can also resultfrom drinking excess amounts of water or the use of diuretics (water pills). Rarely, it can beassociated with disorders of your endocrine system, as side effects of illicit drug use (ecstasy), as acomplication of some cancers especially small cell lung cancer, or as a complication of renal and liverdisease or heart failure.Mild hyponatremia causes no symptoms. It is only discovered with a blood test. As sodium levels inthe blood decreases, symptoms begin to appear. This includes weakness, confusion, musclecramping and seizures.Home care Reduce your daily water intake until the problem is corrected. If you have been taking diuretics, you may be asked to stop taking them for a short time. If you are having symptoms of weakness or confusion, do not drive or operate dangerous machinery until symptoms resolve. If your sodium levels are too low to be managed at home with the above recommendations, you will be asked to go to the hospital to have your sodium replaced through your vein.Follow-up careFollow up with your healthcare provider for a repeat blood test within the next week, or as advised.When to seek medical adviceCall your healthcare provider if any of the following occur: 7 General Instructions [facility] Emergency Department [address] [place] [address] Phone #: ext- [phone] 11/24/2019 16:57 Patient: NATALIYA BEASLEY Sex: F : 1995 Age: 24y Increasing weakness Dizziness Irregular heartbeat, extra beats or very fast heart rate Increasing confusion Fainting or loss of consciousness Seizure [id number] [employer]. [address] [place] [address]. All rights reserved. This information is not intended as asubstitute for professional medical care. Always follow your healthcare professional's instructions. You have been given the following additional information: Vomiting (Adult) Gastritis (Adult) Hypokalemia Hyponatremia(Electronically signed by Ariel Miller M.D. 11/25/2019 00:42) Name Value Range Interpretation Code Description Data Michelle rce(s) Supporting Document(s) ID Date Data Source [id number] 11/24/2019 05:12:00 PM EDT [facility] 1 Clinical Report - Nurses [facility] Emergency Department [address] [place] [address] Phone #: ext- [phone] 11/24/2019 16:57 Patient: NATALIYA BEASLEY Sex: F : 1995 Age: 24yTRIAGEArrived by private vehicle. Historian: family. Accompanied by family. ( went to [employer] thursdaywas drinking alcohol and started vomit with lower abd pain).Acuity: LEVEL 3.Chief Complaint: ABDOMINAL PAIN, NAUSEA and VOMITING.Alert. No acute distress.Onset. (last ). The patient has had constipation and abdominal pain. 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 --17:05 11/24/19 Alexia Kemp R.N.16:59 11/24/19. BP: 123/85. MAP: 97. HR: 95. RR: 18. O2 saturation: 100%. Temp: 98.4 F. Pain levelnow: 8/10. --17:05 11/24/19 Alexia Kemp R.N.Weight: 58.9 kg stated. Height/Length: 63 inches Per Patient. BMI: 23. --16:59 11/24/19 Alxeia Kemp R.N.MedicationsNone. --17:01 11/24/19 Alexia Kemp R.N.AllergiesNone. --17:01 11/24/19 Alexia Kemp R.N.PROBLEMS:Ear infection with tubes. --17:01 11/24/19 Alexia Kemp R.N.ADDITIONAL SURGERIES:no known surgeries.HistoryPAST MEDICAL HX: Immunizations: up-to-date. Last normal menstrual period- October.SOCIAL HX: Never smoker. Occasional alcohol use. History of heavy drug use. No recent travel. Noknown contact with a sick individual. The patient was offered HIV testing but declined and hepatitis Ctesting but declined. The patient has not traveled outside the [place]Infectious disease exposure: No infectious disease exposure. Patient is not a known carrier of tuberculosis,hepatitis, HIV, MRSA or VRE. Patient is not a known carrier of CRE. 2 Clinical Report - Nurses [facility] Emergency Department [address] [place] [address] Phone #: ext- [phone] 11/24/2019 16:57 Patient: NATALIYA BEASLEY Sex: F : 1995 Age: 24y SELF HARM ASSESSMENT: Self harm assessment was performed. The patient answered "no" to the question(s) "Have you recently felt down, depressed, or hopeless?", "Do you have thoughts of harming or killing yourself?", "Do you have a plan for harming or killing yourself?", "Have you recently had thoughts about harming or killing others?", "Do you have any dangerous items in your possession?", "Have you noticed less interest or pleasure in doing things?", "Are you here because you tried to hurt yourself?" and "Have you ever tried to hurt yourself before today?". ABUSE ASSESSMENT: Abuse assessment. Abuse denied. No suspicion of abuse. No report of abuse. NUTRITIONAL RISK ASSESSMENT: The nutritional risk assessment revealed no deficiencies. FUNCTIONAL ASSESSMENT: Functional assessment: no impairments noted. LEARNING NEEDS ASSESSMENT: The learning needs assessment revealed no barriers. FALL RISK ASSESSMENT: Fall risk assessment completed. No risk factors identified. SKIN INTEGRITY ASSESSMENT: Skin integrity risk assessment completed. No skin integrity risk identified. --17:05 11/24/19 Alexia Kemp R.N. Interventions Identification band on patient. To treatment room. --17:05 11/24/19 Alexia Kemp R.N.PHYSICAL [id number]:18 11/24/19. Ambulatory to room.GENERAL / NEURO / PSYCH: Alert. Oriented X 4. Appears in no acute distress.HEENT: Mucous membranes are pink.RESPIRATORY: Respirations not labored. Breath sounds within normal limits.CVS: Capillary refill less than 2 seconds.GI / : Abdomen soft and nontender. Bowel sounds within normal limits.SKIN: Skin is warm and dry. --17:18 11/24/19 Aureliano Fortune R.N.NURSING PROGRESS NOTESPatient gowned. Reassurance given. Two patient identifiers checked. Call light placed in reach. Siderails up x 2. Bed placed in lowest position. Brakes of bed on. Patient ready for evaluation- ED greg CLARK notified. --17:05 11/24/19 Alexia Kemp R.N. 17:18 11/24/2019 Site #1 started via IV in the right antecubital space with an 20g angiocath, with aseptic technique and good blood return; one attempt. Blood drawn: rainbow set. Labeled in the presence of the patient and sent to the lab. Saline lock flushed with 10 mL saline. --17:18 11/24/19 Aureliano Fortune R.N. 17:29 11/24/2019 Started bag #1 1000 mL IV Fluids NS; bolus of 1000 mL over 1000 hour(s) then at 1000 mL/hr over 1 hour(s) via site #1 via IV pump. Allergies verified and confirmed 5 rights. IV patency established. IV site checked: no pain, redness, or swelling. IV flushed thoroughly pre- and post-medication 3 Clinical Report - Nurses [facility] Emergency Department [address] [place] [address] Phone #: ext- [phone] 11/24/2019 16:57 Patient: NATALIYA BEASLEY Sex: F : 1995 Age: 24yadministration. Information reviewed with patient including reason for taking this medication, signs ofallergic reaction and precautions. Verbalizes understanding. Completed per protocol. --17:34 11/24/19 EASTON Hackett17:29 11/24/2019 Zofran (Ondansetron HCl) IVP 4 mg given over 1 hour(s) via site #1. Allergies verifiedand confirmed 5 rights. IV patency established. IV site checked: no pain, redness, or swelling. IV flushedthoroughly pre- and post-medication administration. IVP given by RN. Information reviewed with patientincluding reason for taking this medication, signs of allergic reaction and precautions. Verbalizesunderstanding. --17:34 11/24/19 Edilma La RN17:31 11/24/2019 Started 40 mg of Protonix (Pantoprazole Sodium) IVPB in bag #1 100 mL; at 200 mL/hrover 30 minute(s) via site #1. via IV pump. Allergies verified and confirmed 5 rights. IV patency established.IV site checked: no pain, redness, or swelling. IV flushed thoroughly pre- and post-medicationadministration. Information reviewed with patient including reason for taking this medication, signs ofallergic reaction and precautions. Verbalizes understanding. Completed per protocol. --17:35 11/24/19 EASTON Hackett17:53 11/24/19. Patient transported to CT by wheelchair with veterinary laboratory technician. --17:58 11/24/19 Aureliano Fortune, R.NSveta18:07 11/24/19. Patient returned from CT by wheelchair with veterinary laboratory technician. --18:12 11/24/19 Aureliano Fortune R.N.18:14 11/24/19. Critical value relayed by Prema Cevallos RN (18:14 11/24/2019). Critical value receivedby Edilma La RN (18:14 11/24/2019). Chloride <68. K: 2.2. Critical value read back. Verified labresult and patient ID. ED physician notifed of critical value (Dr Miller). Orders were received.--18:16 11/24/19 Edilma La RN18:29 11/24/2019 KCL LIQUID PO PO Syrup/Liquid 40 meq given. Allergies verified and confirmed 5rights. Information reviewed with patient including reason for taking this medication, signs of allergicreaction and precautions. Verbalizes understanding. --18:29 11/24/19 Aureliano Fortune R.NSveta18:29 11/24/2019 Started 10 meq of KCL IVPB in bag #1 100 mL; at 100 mL/hr via site #1. via IV pump.Allergies verified and confirmed 5 rights. IV patency established. IV site checked: no pain, redness, orswelling. IV flushed thoroughly pre- and post-medication administration. Information reviewed with patientincluding reason for taking this medication, signs of allergic reaction and precautions. Verbalizesunderstanding. --18:29 11/24/19 Aureliano Fortune R.N.18:57 11/24/2019 Protonix IVPB via IV site #1 Discontinued: bag #1 completed. Total amount infused: 100mL. IV patency established. IV site checked: no pain, redness, or swelling. IV flushed thoroughly. --: Aureliano Fortune R.N.19:15 11/24/19. Critical value relayed by Prema Cevallos Lab (19:15 11/24/2019). Critical value receivedby Edilma La RN (19:15 11/24/2019). Chloride 69. K: 2.4. Critical value read back. Verified lab 4 Clinical Report - Nurses [facility] Emergency Department [address] [place] [address] Phone #: ext- [phone] 11/24/2019 16:57 Patient: NATALIYA BEASLEY Sex: F : 1995 Age: 24y result and patient ID. ED physician notifed of critical value (Dr Miller). Orders were received. --19:17 11/24/19 Edilma La RN 19:22 11/24/2019 IV Fluids NS via IV site #1 Discontinued: bag #1 infused. Total amount infused: 100 mL. IV patency established. IV site checked: no pain, redness, or swelling. IV flushed thoroughly. --19:22 11/24/19 Aureliano Fortune R.N. 19:38 11/24/2019 KCL IVPB via IV site #1 Discontinued: bag #1 completed. Total amount infused: 100 mL. IV patency established. IV site checked: no pain, redness, or swelling. IV flushed thoroughly. --19:38 11/24/19 Aureliano Fortune R.N. 19:41 11/24/2019 Started bag #1 1000 mL IV Fluids IV NS; at 200 mL/hr over 5 hour(s) via site #1 via IV pump. Allergies verified and confirmed 5 rights. IV patency established. IV site checked: no pain, redness, or swelling. IV flushed thoroughly pre- and post-medication administration. Information reviewed with patient including reason for taking this medication, signs of allergic reaction and precautions. Verbalizes understanding (40 meq kcl per liter). --19:41 11/24/19 Aureliano Fortune R.N. 19:46 11/24/19. Reassurance given. Reassessment acuity: LEVEL 3. The patient reports no complaints and she is sleeping. Overall patient status is improved- she states feels better. SKIN: Skin is warm and dry. Skin color within normal limits. Two patient identifiers checked. Call light placed in reach. Bed placed in lowest position. Brakes of bed on. --19:46 11/24/19 Aureliano Fortune R.N. 20:13 11/24/2019 Site #[address] upon admission; patent, no pain and no signs of infection or infiltration. Good blood return present. Flushed with 10 mL saline; flushes easily. --20:13 11/24/19 Aureliano Fortune R.N. 20:47 11/24/2019 IV Fluids IV NS via IV site #1 Continued: at the rate of 125 mL/hr. 600 mL remaining bag #2. IV patency established. IV site checked: no pain, redness, or swelling. IV flushed thoroughly. --21:02 11/24/19 Aureliano Fortune R.N.DISPOSITION / DISCHARGE 20:17 11/24/19. Condition at departure: improved and stable. The goals identified in the patient's plan of care were met. Fall risk assessment completed. No risk factors identified. Admitted to the Acute Inpatient Unit. Transported via stretcher by nurse with IV. Bed obtained and ready (112). Patient's personal items; items were transported with the patient. --20:17 11/24/19 Aureliano Fortune R.N. 20:36 11/24/19. Departure time: 20:50 11/24/2019. Condition at departure: improved and stable. The goals identified in the patient's plan of care were met. Fall risk assessment completed. No risk factors identified. No learning barriers present. Report was given to a nurse in person, at bedside and via visit overview. Report included information regarding patient's treatment, allergies and condition including: recent changes, current and abnormal vital signs and critical or abnormal labs. Report included treatment information regarding medications given or pending; type and amount of IV fluids and medications infusing and total volume infused. All questions were answered. Report was acknowledged and care was transferred. --21:03 11/24/19 Aureliano Fortune R.N. 5 Clinical Report - Nurses [facility] Emergency Department [address] [place] [address] Phone #: ext- [phone] 11/24/2019 16:57 [id number] Sex: F : 1995 Age: 24y 20:41 11/24/19. BP: 114/85. MAP: 94. HR: 85. RR: 16. O2 saturation: 95% on room air. Temp: 95.2 F. Pain level now: 0/10. --21:03 11/24/19 Aureliano Fortune R.N.Locked/Released at 11/24/2019 21:06 by Aureliano Fortune R.N. Name Value Range Interpretation Code Description Data Michelle rce(s) Supporting Document(s) ID Date Data Source [id number] 11/24/2019 05:12:00 PM EDT [facility] 1 Clinical Report - Physicians/Mid Levels [facility] Emergency Department [address] [place] [address] Phone #: ext- [phone] 11/24/2019 16:57 Patient: NATALIYA BEASLEY Sex: F : 1995 Age: 24y Time Seen: 17:01 11/24/2019. Arrived- By private vehicle. Historian- patient and family. Disposition decision: 19:18 11/24/2019.HISTORY OF PRESENT ILLNESS Chief Complaint: VOMITING. No recent travel. She has had nausea, vomiting and abdominal pain. No diarrhea, black stools, bloody stools, flank pain or known contact with a sick individual. No change in routine. Has not recently been camping or on antibiotics. Possible bad food exposure. This started 6 days; 24 year old with vomiting and abdominal pain since last . no fever. was partying and had lot of alcohol. uses marihuana almost daily. no fall. multiple vomiting. hence here and is still present. (6 days). The illness is described as moderate. ([place] and drank quite a bit.been vomiting since then.). Similar symptoms previously. Patient has had similar symptoms occasionally. Recent medical care: Not recently seen/assessed.REVIEW OF SYSTEMSLast normal menstrual period- 10 days ago. No fever, difficulty with urination, dark urine, missed periodsor headache. No dizziness, sore throat, cough, chest pain or difficulty breathing. No excessive urination,skin rash, jaundice, back pain or fainting episodes. No blurred vision. The patient has had muscle aches.All other systems reviewed and are negative.PAST HISTORYSee nurses notes. Problems: Ear infection with tubes. Additional Surgeries: no known surgeries. Medications: None. Allergies: None.SOCIAL HISTORYSmoker- current status unknown. Alcohol use; consumes beer weekly, liquor weekly and wine weekly. 2 Clinical Report - Physicians/Mid Levels [facility] Emergency Department [address] [place] [address] Phone #: ext- [phone] 11/24/2019 16:57 Patient: NATALIYA BEASLEY Sex: F : 1995 Age: 24y Last drink was 6 days ago. History of drug use: marijuana. No recent travel. Is a local resident. Resides in a house. She lives with a family member.ADDITIONAL NOTESThe nursing notes have been reviewed with agreement regarding the chief complaint, HPI, ROS, PMH andpatient medications and allergies.PHYSICAL EXAMVital Signs: 11/24/2019 16:59 BP: 123/85. MAP: 97. HR: 95. RR: 18. O2 saturation: 100%. Temp: 98.4 F.Pain level now: 8/10. Have been reviewed as normal.Appearance: Alert. No acute distress. Anxious. No apparent distress.Eyes: Pupils equal, round and reactive to light. Eyes normal inspection.ENT: Nose normal. Pharynx normal. No nasal discharge, pharyngeal erythema or tonsillar exudate.The mucous membranes are not dry.Neck: Normal inspection. Neck supple. No JVD, carotid bruit, lymphadenopathy or thyromegaly.CVS: Normal heart rate. Heart sounds normal. Pulses normal. Rhythm normal. No cardiac murmur orextra heart sounds.Respiratory: No respiratory distress. Painless inspiration. Breath sounds normal. No accessorymuscle use, decreased air movement, crackles or rhonchi.Abdomen: Moderate tenderness diffusely. No organomegaly. No mass. The bowel sounds are notabnormal. No distention, mass present or organomegaly.Back: Normal inspection. No CVA tenderness.Skin: No cyanosis. Skin warm. Normal skin color. No rash.Extremities: No lower extremity edema. No lower extremity edema.Neuro: Oriented X 3. No alteration in mental status. No motor deficit.LABS, X-RAYS, AND EKGAbdominal CT: No acute disease.Pelvic CT: No acute disease.Laboratory Tests: Laboratory tests have been ordered, with results reviewed and considered in themedical decision making process. BMP: (ANGELY: 11/24/2019 18:47) ( MsgRcvd 11/24/2019 19:15) Final results Test Result Flag Units (Reference) BASIC METABOLIC PANEL BASIC METABOLIC PANEL SODIUM 120 L mEq/L (134 - 153) POTASSIUM 2.4 LL mEq/L (3.6 - 5.0) CALL/ READ BACK EDILMA IN ED BY: ROCK DATE/TIME CHLORIDE 69 L mEq/L (98 - 107) CALLED CHLORIDE CO2 35 H MEQ/L (22 - 30) GLUCOSE 113 H MG/DL (65 - 110) BUN 23 H MG/DL (7 - 21) CREATININE 0.8 MG/DL (0.7 - 1.5) 3 Clinical Report - Physicians/Mid Levels [facility] Emergency Department [address] [place] [address] Phone #: ext- [phone] 11/24/2019 16:57 Patient: NATALIYA BEASLEY Sex: F : 1995 Age: 24y BUN/CREAT 29 H (8 - 27) CALCIUM 10.0 MG/DL (8.4 - 10.2) ANION GAP 16.0 mmol/L (8.0 - 16.0) AGE 24 yrs AFR AMER GFR >60 mL/min NON-AA GFR >60 mL/min Male GFR Interprentation 20-49 yrs >60 mL/min Asfeht35-10 yrs >56 mL/min Normal 60-69 yrs >49 mL/min Normal 70-79yrs>42 mL/min Normal 80 and above >35 mL/min Normal Female GFRInterpretation 20-39 yrs >60 mL/min Normal 40-49 yrs >58 mL/minNormal 50-59 yrs >51 mL/min Normal 60-69 yrs >45 mL/min Ymakll86-25 yrs >39 mL/min Normal 80 and above >32 mL/min NormalMagnesium: (ANGELY: 11/24/2019 17:15) ( MsgRcvd 11/24/2019 18:59) Final results Test Result Flag Units (Reference) MAGNESIUM 2.5 H MG/DL (1.7 - 2.2)Magnesium: (ANGELY: 11/24/2019 18:16) ( MsgRcvd 11/24/2019 18:32) CanceledCPK: (ANGELY: 11/24/2019 17:15) ( AkgRcvd 11/24/2019 18:04) Final results Test Result Flag Units (Reference) CPK 321 H U/L (30 - 170)CT Abd PEL W/ IV Contrast Only: (ANGELY: 0 11/24/2019 17:15) ( gRcvd 11/24/2019 18:06) In ProgressCT ABDReason(s): Abdominal PainTRANSPORTATION: WC IV? IV?(Yes) O2? Oxygen?(No) RoBeta-HCG, Qual Serum: (ANGELY: 11/24/2019 17:15) ( [facility] 11/24/2019 17:49) Final results Test Result Flag Units (Reference) HCG SERUM QUAL NEGATIVE (NORMAL: NEGAT HCG SERUM QL REENTER NEGATIVE (NORMAL: NEGAT { KIT LOT # [id number] ){ KIT EXP DATE02.27.21 ){ PROCEDURAL CONTROL VALID)CBC w Diff: (ANGELY: 11/24/2019 17:15) ( AkgRcvd 11/24/2019 18:06) Final results Test Result Flag Units (Reference) CBC W/AUTOMATED DIFF COMPLETE BLOOD COUNT WBC 17.0 H 10/uL (4.2 - 11.0) RBC 5.64 H 10/uL (4.20 - 5.40) HEMOGLOBIN 17.8 H g/dL (12.0 - 16.0) HEMATOCRIT 47.8 H % (37.0 - 47.0) MCV 84.8 fL (81.0 - 101) MCH 31.6 pg (27.0 - 34.0) MCHC 37.2 H g/dL (31.0 - 36.0) RDW 11.8 % (11.5 - 14.5) PLATELETS 324 10/uL (150 - 450) MPV 10.2 fL (7.4 - 10.4) NEUT 79.6 % (37.0 - 80.0) LYMPH 11.8 L % (25.0 - 40.0) 4 Clinical Report - Physicians/Mid Levels [facility] Emergency Department [address] [place] [address] Phone #: ext- [phone] 11/24/2019 16:57 Patient: NATALIYA BEASLEY Sex: F : 1995 Age: 24y MONO 7.4 % (3.0 - 8.0) EOS 0.1 % (0.0 - 7.0) BASO 0.2 % (0.0 - 2.5) %IG 0.9 H % (0.0 - 0.0) %NRBC 0.0 % (0.0 - 0.0) #NEUT 13.56 H 10/uL (2.00 - 6.90) #LYMPH 2.01 10/uL (0.60 - 3.40) #MONO 1.26 H 10/uL (0.00 - 0.90) #EOS 0.01 10/uL (0.00 - 0.70) #BASO 0.04 10/uL (0.00 - 0.20) #IG 0.15 H 10/uL (0.00 - 0.10) #NRBC 0.00 10/uL (0.00 - 0.00) MANUAL DIFF SEE BELOW SEGS 77 % (37 - 80) %LYMPH 12 L % (25 - 40) %MONO 11 H % (3 - 8) RBC MORPH MORPH IS NORMALCMP: (ANGELY: 11/24/2019 17:15) ( MsgRcvd 11/24/2019 18:14) Final results Test Result Flag Units (Reference) COMPREHENSIVE METABOLIC PANEL COMPREHENSIVE METABOLIC PANEL SODIUM 122 L mEq/L (134 - 153) POTASSIUM 2.2 LL mEq/L (3.6 - 5.0) CALL/ READ BACK EDILMA IN ED BY: ROCK DATE/TIME CHLORIDE <68 L mEq/L (98 - 107) CHLORIDE RESULT CALLED DW CO2 35 H MEQ/L (22 - 30) GLUCOSE 132 H MG/DL (65 - 110) BUN 26 H MG/DL (7 - 21) CREATININE 0.8 MG/DL (0.7 - 1.5) BUN/CREAT 33 H (8 - 27) TOTAL PROTEIN 8.7 H G/DL (6.3 - 8.2) ALBUMIN 5.4 H G/DL (3.9 - 5.0) GLOBULIN 3.3 H GM/DL (2.4 - 3.2) A/G RATIO 1.6 (0.8 - 2.0) CALCIUM 10.5 H MG/DL (8.4 - 10.2) TOTAL BILI 2.1 H MG/DL (0.2 - 1.3) ALKALINE PHOS 93 U/L (38 - 126) SGOT/AST 37 U/L (5 - 40) SGPT/ALT 36 U/L (7 - 56) ANION GAP 19.0 H mmol/L (8.0 - 16.0) AGE 24 yrs NON-AA GFR >60 mL/min AFR AMER GFR >60 mL/min Male GFR Interprentation 20-49 yrs >60 mL/min Ibnfzr93-22 yrs >56 mL/min Normal 60-69 yrs >49 mL/min Normal 70-79yrs>42 mL/min Normal 80 and above >35 mL/min Normal Female GFRInterpretation 20-39 yrs >60 mL/min Normal 40-49 yrs >58 mL/minNormal 50-59 yrs >51 mL/min Normal 60-69 yrs >45 mL/min Kmbtai10-59 yrs >39 mL/min Normal 80 and above >32 mL/min NormalLipase: (ANGELY: 11/24/2019 17:15) ( MsgRcvd 11/24/2019 18:04) Final results Test Result Flag Units (Reference) LIPASE 15 U/L (13 - 60) 5 Clinical Report - Physicians/Mid Levels [facility] Emergency Department [address] [place] [address] Phone #: ext- [phone] 11/24/2019 16:57 Patient: NATALIYA BEASLEY Sex: F : 1995 Age: 24y.PROGRESS AND PROCEDURESCourse of Care: 18:17 11/24/19. Patient is stable. 18:18 11/24/19. due to K and sodium being low, mag was ordered. repeat BMP was ordered. po kcl, and iv kcl ordered. 19:14 11/24/19. CT abd/pelvis NAD per radiologist. repeat K is 2.4. hence will admit the patient for further care. needs admission for further care 19:19 11/24/19. Discussed with sarah , hospitalist and admitted . updated patient on repeat labs also. d/w patient and mother and admitted for further care. Discussed case with on-call health care provider, (19:Nov 24 2019 Sarah). Reviewed test results and need for additional work-up. Agreed upon treatment plan, need for patient follow-up and decision to admit. Health care provider will see patient in ED. Patient/family counseled. Disposition: Admitted. 19:Nov 24 2019.CLINICAL IMPRESSION Intractable vomiting with nausea, dehydration and volume depletion. Acute gastritis Hypokalemia Severe hyponatremia(Electronically signed by Ariel Miller M.D. 11/25/2019 00:42) Name Value Range Interpretation Code Description Data Michelle rce(s) Supporting Document(s) ID Date Data Source [id number] 11/24/2019 08:16:00 PM EDT [facility] Name Value Range Interpretation Code Description Data Michelle rce(s) Supporting Document(s) URINALYSIS [facility] URINALYSIS SOURCE R [facility] COLOR yellow NORMAL: Yellow [facility] CLARITY hazy NORMAL: Clear [facility] Specific gravity of Urine by Test strip 1.010 1.001 - 1.030 [facility] 8 5 - [facility] Gl[facility] [Mass/volume] in Urine by Test strip NORM NORMAL: Negat [facility] Bilirubin.total [Presence] in Urine by Test strip NEG NORMAL: Negative [facility] Ketones [Presence] in Urine by Test strip 5 NORMAL: Negative [facility] Protein [Mass/volume] in Urine by Test strip 15 NORMAL: Negat [facility] Nitrite [Presence] in Urine by Test strip NEG NORMAL: Negative [facility] BLOOD NEG NORMAL: Negative [facility] Leukocyte esterase [Presence] in Urine by Test strip NEG DAYLIN L: Negative [facility] Urobilinogen [Mass/volume] in Urine by Test strip 1 less tito n 1.0 mg/dL [facility] MICROSCOPIC See Below [facility] ital WBC 3 - 5 NORMAL: NONE SEEN [facility] Erythrocytes [#/volume] in Urine by Test strip 3 - 5 NORMAL: NON E SEEN [facility] EPITHELIAL MODERATE NORMAL: NONE SEEN [facility] Bacteria [Presence] in Urine sediment by Light microscopy 2+ MOD NORMAL: NONE SEEN [facility] Mucus [Presence] in Urine sediment by Light microscopy Trace NORMAL: NONE SEEN [facility] ID Date Data Source [id number] 11/24/2019 07:13:00 PM EDT [facility] Name Value Range Interpretation Code Description Data Michelle rce(s) Supporting Document(s) BASIC METABOLIC PANEL [facility] BASIC METABOLIC PANEL Sodium [Moles/volume] in Serum or Plasma 120 mEq/L 134 - 153 L [facility] Potassium [Moles/volume] in Serum or Plasma 2.4 mEq/L 3.6 - 5.0 LL [facility] CALL/ READ BACK EDILMA IN ED [facility] BY: [facility] Chloride [Moles/volume] in Serum or Plasma 69 mEq/L 98 - 107 L [facility] CALLED CHLORIDE Carbon dioxide, total [Moles/volume] in Serum or Plasma 35 MEQ/L 22 - 30 H [facility] Glucose [Mass/volume] in Serum or Plasma 113 MG/DL 65 - 110 H [facility] BUN 23 MG/DL 7 - 21 H [facility] al Creatinine [Mass/volume] in Serum or Plasma 0.8 MG/DL 0.7 - 1.5 [facility] BUN/CREAT 29 8 - 27 H [facility] al Calcium [Mass/volume] in Serum or Plasma 10.0 MG/DL 8.4 - 10.2 [facility] Anion gap 3 in Serum or Plasma 16.0 mmol/L 8.0 - 16.0 [facility] AGE 24 yrs [facility] al AFR AMER GFR >60 mL/min [facility] NON-AA GFR >60 mL/min [facility] ital Male GFR Inter prentation 20-49 yrs >60 mL/min Normal 50-59 yrs >56 mL/min Normal 60-69 yrs >49 mL/min Normal 70-79yrs >42 mL/min Normal 80 and above >35 mL/min Normal Female GFR Interpretation 20-39 yrs >60 mL/min Normal 40-49 yrs >58 mL/min Normal 50-59 yrs >51 mL/min Normal 60-69 yrs >45 mL/min Normal 70-79 yrs >39 mL/min Normal 80 and above >32 mL/min Normal ID Date Data Source [id number] 11/24/2019 06:59:00 PM EDT [facility] Name Value Range Interpretation Code Description Data Michelle rce(s) Supporting Document(s) Magnesium [Mass/volume] in Serum or Plasma 2.5 MG/DL 1.7 - 2.2 H [facility] ID Date Data Source [id number] 11/24/2019 06:14:00 PM T [facility] Name Value Range Interpretation Code Description Data Michelle rce(s) Supporting Document(s) COMPREHENSIVE METABOLIC PANEL [facility] COMPREHENSIVE METABOLIC PANEL Sodium [Moles/volume] in Serum or Plasma 122 mEq/L 134 - 153 L [facility] Potassium [Moles/volume] in Serum or Plasma 2.2 mEq/L 3.6 - 5.0 LL [facility] CALL/ READ BACK EDILMA IN ED [facility]: [facility] Chloride [Moles/volume] in Serum or Plasma <68 mEq/L 98 - 107 L [facility] CHLORIDE RESULT CALLED DW Carbon dioxide, total [Moles/volume] in Serum or Plasma 35 MEQ/L 22 - 30 H [facility] Glucose [Mass/volume] in Serum or Plasma 132 MG/DL 65 - 110 H [facility] BUN 26 MG/DL 7 - 21 H [facility] al Creatinine [Mass/volume] in Serum or Plasma 0.8 MG/DL 0.7 - 1.5 [facility] BUN/CREAT 33 8 - 27 H [facility] Protein [Mass/volume] in Serum or Plasma 8.7 G/DL 6.3 - 8.2 H [facility] Albumin [Mass/volume] in Serum or Plasma 5.4 G/DL 3.9 - 5.0 H [facility] Globulin [Mass/volume] in Serum by calculation 3.3 GM/DL 2.4 - 3.2 H [facility] A/G RATIO 1.6 0.8 - 2.0 [facility] Calcium [Mass/volume] in Serum or Plasma 10.5 MG/DL 8.4 - 10.2 H [facility] Bilirubin.total [Mass/volume] in Serum or Plasma 2.1 MG/DL 0.2 - 1.3 H [facility] Alkaline phosphatase [Enzymatic activity/volume] in Serum or Plasma 93 U/L 38 - 126 [facility] Aspartate aminotransferase [Enzymatic activity/volume] in Serum or Plasma 37 U/L 5 - 40 [facility] Alanine aminotransferase [Enzymatic activity/volume] in Seru m or Plasma 36 U/L 7 - 56 [facility] Anion gap 3 in Serum or Plasma 19.0 mmol/L 8.0 - 16.0 H [facility]GE 24 [facility] >60 mL/min [facility] ital AFR AMER GFR >60 mL/min [facility] Male GFR In terprentation 20-49 yrs >60 mL/min Normal 50-59 yrs >56 mL/min Normal 60-69 yrs >49 mL/min Normal 70-79yrs >42 mL/min Normal 80 and above >35 mL/min Normal Female GFR Interpretation 20-39 yrs >60 mL/min Normal 40-49 yrs >58 mL/min Normal 50-59 yrs >51 mL/min Normal 60-69 yrs >45 mL/min Normal 70-79 yrs >39 mL/min Normal 80 and above >32 mL/min Normal ID Date Data Source [id number] 11/24/2019 06:06:00 PM EDT [facility] Name Value Range Interpretation Code Description Data Michelle rce(s) Supporting Document(s) CBC W/AUTOMATED DIFF [facility] COMPLETE BLOOD COUNT Leukocytes [#/volume] in Blood by Automated count 17.0 10^3/uL 4.2 - 11.0 H [facility] Erythrocytes [#/volume] in Blood by Automated count 5.64 10^6/uL 4. 20 - 5.40 H [facility] Hemoglobin [Mass/volume] in Blood 17.8 g/dL 12.0 - 16.0 H [facility] Hematocrit [Volume Fraction] of Blood by Automated count 47.8 % 3 7.0 - 47.0 H [facility] Erythrocyte mean corpuscular volume [Entitic volume] by Auto mated count 84.8 fL 81.0 - 101 [facility] Erythrocyte mean corpuscular hemoglobin [Entitic mass] by Automated count 31.6 pg 27.0 - 34.0 [facility] Erythrocyte mean corpuscular hemoglobin concentration [Mass/volume] by Automated count 37.2 g/dL 31.0 - 36.0 H [facility] Erythrocyte distribution width [Ratio] by Automated count 11.8 % 11.5 - 14.5 [facility] Platelets [#/volume] in Blood by Automated count 324 10^3/uL 150 - 45 0 [facility] Platelet mean volume [Entitic volume] in Blood by Automated count 10.2 fL 7.4 - 10.4 [facility] Neutrophils/100 leukocytes in Blood by Automated count 79.6 % 37. 0 - 80.0 [facility] Lymphocytes/100 leukocytes in Blood by Manual count 11.8 % 25.0 - 40.0 L [facility] Monocytes/100 leukocytes in Blood by Automated count 7.4 % 3.0 - 8.0 [facility] Eosinophils/100 leukocytes in Blood by Automated count 0.1 % 0.0 - 7.0 [facility] Basophils/100 leukocytes in Blood by Automated count 0.2 % 0.0 - 2.5 [facility] %IG 0.9 % 0.0 - 0.0 H [facility] %NRBC 0.0 % 0.0 - 0.0 [facility] al Neutrophils [#/volume] in Blood by Automated count 13.56 10^3/uL 2. 00 - 6.90 H [facility] Lymphocytes [#/volume] in Blood by Automated count 2.01 10^3/uL 0.60 - 3.40 [facility] Monocytes [#/volume] in Blood by Automated count 1.26 10^3/uL 0.00 - 0.90 H [facility] Eosinophils [#/volume] in Blood by Automated count 0.01 10^3/uL 0.00 - 0.70 [facility] Basophils [#/volume] in Blood by Automated count 0.04 10^3/uL 0.00 - 0.20 [facility] #IG 0.15 10^3/uL 0.00 - 0.10 H [facility] #NRBC 0.00 10^3/uL 0.00 - 0.00 [facility] MANUAL DIFF SEE BELOW [facility] ital Segmented neutrophils/100 leukocytes in Blood by Manual count 77 % 37 - 80 [facility] %LYMPH 12 % 25 - 40 L [facility] al %MONO 11 % 3 - 8 H [facility] al RBC MORPH MORPH IS NORMAL [facility] ID Date Data Source [id number] 11/24/2019 06:04:00 PM EDT [facility] Name Value Range Interpretation Code Description Data Michelle rce(s) Supporting Document(s) Creatine kinase [Enzymatic activity/volume] in Serum or Plasma 3 21 U/L 30 - 170 H [facility] ID Date Data Source [id number] 11/24/2019 06:04:00 PM EDT [facility] Name Value Range Interpretation Code Description Data Michelle rce(s) Supporting Document(s) Lipase [Enzymatic activity/volume] in Serum or Plasma 15 U/L 13 - 60 [facility] ID Date Data Source [id number] 11/24/2019 05:49:00 PM EDT [facility] Value Range Interpretation Code Description Data Michelle rce(s) Supporting Document(s) HCG SERUM QUAL NEGATIVE NORMAL: NEGATIVE [facility] HCG SERUM QL REENTER NEGATIVE NORMAL: NEGATIVE [facility] { KIT LOT # [id number] ){ KIT EXP DATE 02.27.21 ){ PROCEDURAL CONTROL VALID ) Procedure Vital Signs ID Date Data Source [id number] 12/30/2019 12:40:05 PM EDT [facility] Value Range Interpretation Code Description Data Source(s) WEIGHT RECORDED 138.00 pounds 138.00 pounds [facility] Height 63 Inches 063 Inches [facility] ID Date Data Source [id number] 12/26/2019 05:03:00 PM EDT [facility] Value Range Interpretation Code Description Data Source(s) WEIGHT RECORDED 136.90 pounds 136.90 pounds [facility] Height 62 Inches 062 Inches [facility] ID Date Data Source [id number] 12/26/2019 05:02:58 PM EDT [facility] Value Range Interpretation Code Description Data Source(s) WEIGHT RECORDED 133.90 pounds 133.90 pounds [facility] Height 62 Inches 062 Inches [facility]
[2020-06-15] MEDS ORDERED: NS 1,000 ML IV ONE ×2 (19:30→22:15)
[2020-06-15] MEDS ORDERED: HALOPERIDOL 5MG/ML VIAL (J1630 PER 1) IV ONE (19:30)
--- OUTSIDE RECORDS SUMMARY | 2020-06-15 19:45 | CCD ---
Author Author [facility] Organization [facility] Address Unknown Phone Unavailable Care Team Providers Care Lace Inspector Name Role Phone TURRIN, LEENA Unavailable Unavailable [...] PA-C Unavailable Unavailable Anton Falanga, A Sarah APARTMENT LEASING SPECIALIST Unavailable Unavailable Anton Falanga, A Sarah APARTMENT LEASING SPECIALIST Unavailable Unavailable Brooklyn Falanga, A Sarah APARTMENT LEASING SPECIALIST Unavailable Unavailable Anton Falanga, A Sarah APARTMENT LEASING SPECIALIST Unavailable Unavailable Brooklyn Falanga, A Sarah APARTMENT LEASING SPECIALIST Unavailable Unavailable Anton Falanga, A Sarah APARTMENT LEASING SPECIALIST Unavailable Unavailable Anton Falanga, A Sarah APARTMENT LEASING SPECIALIST Unavailable Unavailable Anton Falanga, A Sarah APARTMENT LEASING SPECIALIST Unavailable Unavailable Anton Falanga, A Sarah APARTMENT LEASING SPECIALIST Unavailable Unavailable Anton Falanga, A Sarah APARTMENT LEASING SPECIALIST Unavailable Unavailable Anton Falanga, A Sarah APARTMENT LEASING SPECIALIST Unavailable Unavailable Brooklyn Falanga, A Sarah APARTMENT LEASING SPECIALIST Unavailable Unavailable Brooklyn Falanga, A Sarah APARTMENT LEASING SPECIALIST Unavailable Unavailable Brooklyn Falanga, A Sarah APARTMENT LEASING SPECIALIST Unavailable Unavailable Brooklyn Falanga, A Sarah APARTMENT LEASING SPECIALIST Unavailable Unavailable Anton Falanga, A Sarah APARTMENT LEASING SPECIALIST Unavailable Unavailable Brooklyn Falanga, A Sarah APARTMENT LEASING SPECIALIST Unavailable Unavailable Anton Falanga, A Sarah APARTMENT LEASING SPECIALIST Unavailable Unavailable Anton Falanga, A Sarah APARTMENT LEASING SPECIALIST Unavailable Unavailable Anton Falanga, A Sarah APARTMENT LEASING SPECIALIST Unavailable Unavailable Brooklyn Falanga, A Sarah APARTMENT LEASING SPECIALIST Unavailable Unavailable Anton Falanga, A Sarah APARTMENT LEASING SPECIALIST Unavailable Unavailable Brooklyn Falanga, A Sarah APARTMENT LEASING SPECIALIST Unavailable Unavailable Anton Falanga, A Sarah APARTMENT LEASING SPECIALIST Unavailable Unavailable Anton Falanga, A Sarah APARTMENT LEASING SPECIALIST Unavailable Unavailable Brooklyn Falanga, A Sarah APARTMENT LEASING SPECIALIST Unavailable Unavailable Anton Falanga, A Sarah APARTMENT LEASING SPECIALIST Unavailable Unavailable Brooklyn Falanga, A Sarah APARTMENT LEASING SPECIALIST Unavailable Unavailable Brooklyn Falanga, A Sarah APARTMENT LEASING SPECIALIST Unavailable Unavailable Anton Falanga, A Sarah APARTMENT LEASING SPECIALIST Unavailable Unavailable ARIEL MILLER MD Unavailable Unavailable [...] Unavailable YAQUELINGeorge HUTCHISON MD Unavailable Unavailable YAQUELINGeorge UHTCHISON MD Unavailable Unavailable YAQUELINGeorge HUTCHISON MD Unavailable Unavailable YAQUELINGeorge HUTCHISON MD Unavailable Unavailable YAQUELINGeorge HUTCHISON MD Unavailable Unavailable YAQUELINGeorge HUTCHISON MD Unavailable Unavailable YAQUELINGeorge HUTCHISON MD Unavailable Unavailable YAQUELINGeorge HUTCHISON MD Unavailable Unavailable YAQUELINGeorge HUTCHISON MD Unavailable Unavailable YAQUELINGeorge HUTCHISON MD Unavailable Unavailable Flori Dumontandra APARTMENT LEASING SPECIALIST APARTMENT LEASING SPECIALIST Unavailable Unavailable Juan A MCKEON MD Unavailable Unavailable Juan A MCKEON MD Unavailable Unavailable Juan A MCKEON MD Unavailable Unavailable Juan A MCKEON MD Unavailable Unavailable Juan A MCKEON MD Unavailable Unavailable Juan A MCKEON MD Unavailable Unavailable Juan A MCKEON MD Unavailable Unavailable Juan A MCKEON MD Unavailable Unavailable Juan A MCKEON MD Unavailable Unavailable Tim, A Ranjana APARTMENT LEASING SPECIALIST Unavailable Unavailable Tim, A Ranjana APARTMENT LEASING SPECIALIST Unavailable Unavailable Tim, A Ranjana APARTMENT LEASING SPECIALIST Unavailable Unavailable Tim, A Ranjana APARTMENT LEASING SPECIALIST Unavailable Unavailable Tim, A Ranjana APARTMENT LEASING SPECIALIST Unavailable Unavailable Tim, A Ranjana APARTMENT LEASING SPECIALIST Unavailable Unavailable Tim, A Ranjana APARTMENT LEASING SPECIALIST Unavailable Unavailable Tim, A Ranjana APARTMENT LEASING SPECIALIST Unavailable Unavailable Tim, A Ranjana APARTMENT LEASING SPECIALIST Unavailable Unavailable Tim, A Ranjana APARTMENT LEASING SPECIALIST Unavailable Unavailable Tim, A Ranjana APARTMENT LEASING SPECIALIST Unavailable Unavailable Tim, A Ranjana APARTMENT LEASING SPECIALIST Unavailable Unavailable Tim, A Ranjana APARTMENT LEASING SPECIALIST Unavailable Unavailable Tim, A Ranjana APARTMENT LEASING SPECIALIST Unavailable Unavailable Tim, A Ranjana APARTMENT LEASING SPECIALIST Unavailable Unavailable Tim, A Ranjana APARTMENT LEASING SPECIALIST Unavailable Unavailable Tim, A Ranjana APARTMENT LEASING SPECIALIST Unavailable Unavailable Tim, A Ranjana APARTMENT LEASING SPECIALIST Unavailable Unavailable Tim, A Ranjana APARTMENT LEASING SPECIALIST Unavailable Unavailable Tim, A Ranjana APARTMENT LEASING SPECIALIST Unavailable Unavailable Tim, A Ranjana APARTMENT LEASING SPECIALIST Unavailable Unavailable Tim, A Ranjana APARTMENT LEASING SPECIALIST Unavailable Unavailable Tim, A Ranjana APARTMENT LEASING SPECIALIST Unavailable Unavailable Tim, A Ranjana APARTMENT LEASING SPECIALIST Unavailable Unavailable Tim, A Ranjana APARTMENT LEASING SPECIALIST Unavailable Unavailable Tim, A Ranjana APARTMENT LEASING SPECIALIST Unavailable Unavailable Tim, A Ranjana APARTMENT LEASING SPECIALIST Unavailable Unavailable Tim, A Ranjana APARTMENT LEASING SPECIALIST Unavailable Unavailable Re-disclosure Warning The records that [...] is protected by Article 27-F of the [facility] Public Health law. If you continue you may have access to information: Regarding HIV / AIDS; Provided by facilities licensed or operated by the [facility] Office of Mental Health; or Provided by the [facility] Office for People With Developmental Disabilities. If such information is present, then the following [facility] mandated warning applies: This information has been [...] law may result in a fine or senior living sentence or both. A general authorization for the release of medical or other information is NOT sufficient authorization for further disc losure. Allergies and Adverse Reactions Type Description Substance Reaction Status Data Source(s ) Food allergy LACTOSE LACTOSE [facility] CLASS SULFA (sulfonamide) SULFA (sulfonamide) HIVES [facility] No Known Drug Allergies No Known Drug Allergies [facility] Encounters Encounter Providers Location Date Indications Data Source(s ) Emergency Attender: Yang Melendrez PA-CConsultant: Miles Walls MD 04/03/2020 04:26:00 PM EST - 04/03/2020 09:15:00 PM [facility] Patient discharged. Outpatient Attender: JADEN Dumont [facility] 02/27/2020 12:19:[address] [facility] Outpatient Attender: Sarah moran FNPAttender: DAYLIN JAMISON MDConsultant: Miles Collazo MD 02/16/2020 04:43:00 PM ED T - 02/17/2020 12:40:00 PM T [facility] Patient discharged. Outpatient Attender: Ranjana Dumont [facility] 01/26/2020 02:5 0:[address] [facility] Outpatient Attender: JADEN Dumont [facility] 01/26/2020 02:46:[address] [facility] 05:19:[address] [facility] Outpatient Attender: Ranjana Dumont [facility] 01/22/2020 03:1 0:[address] [facility] 03:10:[address] [facility] Outpatient Attender: Ranjana Dumont [facility] 01/22/2020 03:0 9:[address] [facility] 03:09:[address] [facility] Outpatient Attender: JADEN PRITCHETT 01/19/2020 09:13:[address] [facility] Outpatient Attender: JADEN PRITCHETT 01/19/2020 09:07:[address] [facility] Outpatient Attender: Sarah moran FNPAttender: LEENA MARTÍNEZConsultant: Miles Collazo MD 12/26/2019 10:59:00 A M EDT - 12/27/2019 04:25:00 PM EDT [facility] Patient discharged. Outpatient Attender: SIMIN MULLER MDAtt akosua: FER MCKEON MDConsultant: Miles Collazo MD 12/09/2019 12:55:00 PM EDT - 12/11/2019 03:40:00 PM EDT [facility] Patient discharged. Emergency Attender: LEENA Poncesultant: Miles Collazo MD 12/07/2019 06:58:00 PM EDT - 12/07/2019 09:23:00 PM EDT [facility] Patient discharged. Outpatient Attender: Sarah moran FNPAttender: ARIEL MILLER MDConsultant: Miles Collazo MD 11/24/2019 05:12:00 PM ED T - 11/26/2019 01:05:00 PM EDT [facility] Patient discharged. Outpatient 11/04/2019 05:40:00 AM EDT [facility] Outpatient Attender: JADEN STANLEY FP 10/15/2019 12:14:[address] [facility] Outpatient 10/12/2019 05:16:00 AM EDT [facility] Outpatient 09/14/2019 05:58:00 AM EDT [facility] Outpatient Attender: JADEN STANLEY FP 09/09/2019 11:10:[address] [facility] Outpatient Attender: JADEN STANLEY FP 09/07/2019 09:02:[address] [facility] Outpatient 05/27/2019 06:22:00 AM EST [facility] Outpatient Attender: JADEN PRITCHETT 05/23/2019 09:01:[address] [facility] Outpatient Attender: JADEN PRITCHETT 05/23/2019 12:54:[address] [facility] Medications Medication Brand Name Start Date [...] type / Coverage type Policy ID Covered republican ID Covered republican's relationship to simons Policy Simons Plan Information [facility] COMM[facility] PLAN [facility] [id number] SP [id number] [facility] O [id number] S [id number] [facility] COMMUNITY PLAN XIX [id number] 18 [id number] Medicaid S [id number] S [id number] Managed Care [facility] Community Plan P [id number] S [id number] Medicaid S [id number] S [id number] [facility] COMMUNITY PLAN XIX [id number] 18 [id number] [place] [employer] XIX HMO [id number] Managed Care [facility] Community Plan P [id number] S [id number] Self Pay P UNAVAILABLE S UNAVAILA BLE [facility] COMMUNITY PLAN [facility] [id number] SP [id number] [facility] O [id number] S [id number] Managed Care - Community Plan [facility] P [id number] S [id number] Medicaid S [id number] S [id number] [facility] PLAN [facility] [id number] SP [id number] [facility] [id number] 18 [id number] MEDICAID - CLINIC [id number] Problems, Conditions, and Diagnoses Code Display Name Description Problem Type Effective Dates Data Source(s) N3001 Acute cystitis with hematuria Acute cystitis with armani turia Diagnosis 04/03/2020 04:26:00 PM [facility] R1084 Generalized abdominal pain Generalized abdominal pain Diagnosis 04/03/2020 04:26:00 PM [facility] F1010 Alcohol abuse, uncomplicated Alcohol abuse, uncomplica parminder Diagnosis 02/16/2020 04:43:00 PM EDT [facility] K37186 Nicotine dependence, cigarettes, uncompl icated Nicotine dependence, cigarettes, uncomplicated Diagnosis 02/16/2020 04:43:00 PM EDT [facility] F1220 Cannabis dependence, uncomplicated Cannabis depe ndence, uncomplicated Diagnosis 02/16/2020 04:43:00 PM EDT [facility] E860 Dehydration Dehydration Diagnosis 02/16/2020 04:43:00 PM EDT [facility] R1110 Vomiting, unspecified Vomiting, unspecified Diagnosis 02/16/2020 04:43:00 PM EDT [facility] E876 Hypokalemia Hypokalemia Diagnosis 02/16/2020 04:43:00 PM EDT [facility] E8342 Hypomagnesemia Hypomagnesemia Diagnosis 02/16/2020 04:43: 00 PM EDT [facility] E871 Hypo-osmolality and hyponatremia Hypo-osmolality and hyponatremia Diagnosis 12/26/2019 10:59:00 AM EDT [facility] 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 : RITTER NATALIYA Martinez Acct Number.................. : [id number] ROOM. ................. : TR-03 Number ................... : [id number] Stay type ............. : E/R Discharge Date......... ... : Admit Date ......... : 1 06/03/19 Admit Phys .................... : PARVIN CHANTEL Date of ....... : 1995 Family Phys ................... : ZAY LÓPEZ Phone .................. : [phone] Age ................................ : 24 Film# .................. .:[id number] Sex ................................. : F Unsigned transcriptions are preliminary reports and do not represent a medical or legal document CT ABD & PELVIS W/ IV ONLY [id number] COMPLETE:04/03/20 17:49 45512 Reason(s): Abdominal Pain CT OF THE ABDOMEN [...] imperative reconstructive techniques. Page 1 of 2 [facility] [address] [place] [address] PHONE: [phone] FAX: [phone] Name .................. : RITTER NATALIYA Martinez Acct Number.................. : [id number] ROOM. ................. : TR-03 MR Number ................... : [id number] Stay type ............. : E/R Discharge Date......... ... : Admit Date ......... : 04/03/20 Admit Phys ... ................. : PARVIN CHANTEL Date of ....... : 1995 Family Phys ................... : [employer] Phone .................. : [phone] Age ................................ : 24 Film# .................. .:[id number] Sex ................................. : F Unsigned transcriptions are preliminary reports and do not represent a medical or legal document CT ABD & PELVIS W/ IV ONLY [id number] COMPLETE:04/03/20 17:49 33905 Reason(s): Abdominal Pain CT dose: 533 mGycm [...] rce(s) Supporting Document(s) ID Date Data Source [id number] 04/03/2020 04:26:00 PM EST [facility] 1 OrderSheet [facility] Emergency Department [address] [place] [address] Phone #: ext- [phone] 04/03/2020 16:19 [id number] Sex: F : 1995 Age: 24yWEIGHT:58.9 kg [...] Only Imtiaz Wiseman R.N.(Oxygen?(No)) P.A.-C;(IV?(Yes)) 2 OrderSheet [facility] Emergency Department [address] [place] [address] Phone #: ext- [phone] 04/03/2020 16:19 Patient: [...] rce(s) Supporting Document(s) ID Date Data Source [id number] 04/03/2020 04:26:00 PM EST [facility] 1 Medication Reconciliation Report [facility] Emergency Department [address] [place] [address] Phone #: ext- [phone] 04/03/2020 16:19 Patient: [...] Dispense 14 capsule. Refills: 0.Substitution permitted.Pharmacy - [facility] [place] [address]. .Zofran 4 mg tablet Take 1 tablet three times a day for 4 days -- Dispense 12 tablet. Refills: 0.Substitution permitted. 2 Medication Reconciliation Report [facility] Emergency Department [address] [place] [address] Phone #: ext- [phone] 04/03/2020 16:19 Patient: NATALIYA BEASLEY Sex: F : 1995 Age: 24yPharmacy - [facility] - [address] [place] [address]. . -- Imtiaz España P.A.-C Name Value Range Interpretation Code Description Data Michelle rce(s) Supporting Document(s) ID Date Data Source [id number] 04/03/2020 04:26:00 PM EST [facility] 1 Medication Administration Record [facility] Emergency Department [address] [place] [address] Phone #: ext- [phone] 04/03/2020 16:19 Patient: [...] ACStart ROCEPHIN (1GM/50ML) [IVPB] Rocephin (1gm/50mL) IVPB [id number] 04/03/2020 (CEFTRIAXONE SODIUM) mg with Dextrose 50 ml spike Zakiya Dougherty R.N. Dose: 1 gm IVPB (D5W)---- Rate: 100 mL/hr over 30 minute(s)Stop Bolus: 1 gm wide open20:54 04/03/2020 Dispensed: 50 mL Zakiya Dougherty RPura Site: #1 left AC Name Value Range Interpretation Code Description Data Michelle rce(s) Supporting Document(s) ID Date Data Source [id number] 04/03/2020 04:26:00 PM EST [facility] 1 General Instructions [facility] Emergency Department [address] [place] [address] Phone #: ext- [phone] 04/03/2020 16:19 Patient: [...] would like. [facility] and is aware of your conditions.).Warnings: Further evaluation is necessary.GENERAL WARNINGS: Return or contact your physician immediately if your condition worsens orchanges unexpectedly, if not improving as expected, or if other problems arise.Your Current Medications: .No home medication.Prescription Medications:Macrobid 100 mg capsule Take 1 capsule twice a day for 7 days -- Dispense 14 capsule. Refills: 0.Substitution permitted.[facility] [address] [place] [address]. .Zofran 4 mg tablet Take 1 tablet three times a day for 4 days -- Dispense 12 tablet. Refills: 0.Substitution permitted.[facility] [address] [place] [address]. .Follow-up:Return to the emergency department as needed. Follow up with your healthcare provider in about twodays if not better. Call for an appointment.Understanding of the discharge instructions verbalized by patient. 2 General Instructions [facility] Emergency Department [address] [place] [address] Phone #: ext- [phone] 04/03/2020 16:19 - Patient: NATALIYA BEASLEY Sex: F : 1995 Age: 24yFollow-up with: Shabbir Addison MD, Gastroenterology, [id number], [facility],[address], [address], [address] Follow up. Call for the next available appointment. Reason for referral: evaluation and treatment.Follow-up with: [facility], , , [address] [place] [address], [address] Follow up. Call for the next available [...] be constant. Other common 3 General Instructions [facility] Emergency Department [address] [place] [address] Phone #: ext- [phone] 04/03/2020 16:19 [id number] Sex: F : 1995 Age: 24ysymptoms can [...] to improve in the 4 General Instructions [facility] Emergency Department [address] [place] [address] Phone #: ext- [phone] 04/03/2020 16:19 Patient: NATALIYA BEASLEY Sex: F : 1995 Age: 24ynext 24 hours.Call [phone] if any of these occur: Trouble breathing [...] or water and you are getting dehydrated [phone] [employer]. [address] [place] [address]. All rights reserved. This information is not intended as asubstitute for professional medical care. Always follow your healthcare professional's instructions.Bladder Infection, Female (Adult) 5 General Instructions [facility] Emergency Department [address] [place] [address] Phone #: ext- [phone] 04/03/2020 16:19 Patient: [...] above the pubic bone. 6 General Instructions [facility] Emergency Department [address] [place] [address] Phone #: ext- [phone] 04/03/2020 16:19 Patient: [...] more serious kidney infection.Medicines 7 General Instructions [facility] Emergency Department [address] [place] [address] Phone #: ext- [phone] 04/03/2020 16:19 Patient: [...] will affect your treatment. 8 General Instructions [facility] Emergency Department [address] [place] [address] Phone #: ext- [phone] 04/03/2020 16:19 Patient: [...] swelling in the outer vaginal area (labia) [phone] [employer]. [address] [place] [address]. All rights reserved. This information is not intended as asubstitute for professional medical care. Always follow your healthcare professional's instructions.Blood in the Urine 9 General Instructions [facility] Emergency Department [address] [place] [address] Phone #: ext- [phone] 04/03/2020 16:19 Patient: [...] had blood in your 10 General Instructions [facility] Emergency Department [address] [place] [address] Phone #: [phone] olo- [phone] 04/03/2020 16:19 Patient: NATALIYA BEASLEY Sex: F [...] the nose or gums or easy bruising [phone] [employer]. [address] [place] [address], [place] [address]. All rights reserved. This information is not [...] rce(s) Supporting Document(s) ID Date Data Source [id number] 04/03/2020 04:26:00 PM EST [facility] 1 Clinical Report - Nurses [facility] Emergency Department [address] [place] [address] Phone #: [phone] rjn- [phone] 04/03/2020 16:19 Patient: NATALIYA BEASLEY Sex: F [...] no deficiencies. 2 Clinical Report - Nurses [facility] Emergency Department [address] [place] [address] Phone #: ext- [phone] 04/03/2020 16:19 ----- [...] Sheets R.N. 3 Clinical Report - Nurses [facility] Department [address] [place] [address] Phone #: ext- [phone] 04/03/2020 16:19 Patient: [...] patient. Verbalizes 4 Clinical Report - Nurses [facility] Department [address] [place] [address] Phone #: ext- [phone] 04/03/2020 16:19 Patient: NATALIYA BEASLEY Sex: F : 1995 Age: 24y understanding. --19:56 04/03/20 Zakiya Quiles R.N. 19:56 04/03/20. BP: 137/72. MAP: 93. HR: 70. RR: 18. O2 saturation: 99% on room air. --19:57 04/03/20 Zakiya Quiles R.N. The patient is calm and resting quietly. Patient returned from CT by wheelchair with mask and assistant professor of radiology. --19:57 04/03/20 Zakiya Quiles R.N. 20:36 04/03/2020 [...] pharmacy. Reviewed referral to a surgeon and boxing and pressing supervisor. Work note given. Patient verbalized understanding. Written instructions provided in Trinidadian. The patient was discharged by the physician assistant teaching professor. She was discharged home and accompanied by [...] rce(s) Supporting Document(s) ID Date Data Source [id number] 04/03/2020 04:26:00 PM [facility] 1 Clinical Report - Physicians/Mid Levels [facility] Emergency Department [address] [place] [address] Phone #: ext- [phone] 04/03/2020 16:19 Patient: NATALIYA BEASLEY Sex: F [...] ears. 2 Clinical Report - Physicians/Martha Messina [facility] Emergency Department [address] [place] [address] Phone #: ext- [phone] 04/03/2020 16:19 Patient: [...] 3 Clinical Report - Physicia ns/Mid Levels [facility] Emergency Department [address] [place] [address] Phone #: ext- [phone] 04/03/2020 16:19 Patient: [...] Male GFR Interprentation 20-49 yrs >60 mL/min Vrusmm59-61 yrs >56 mL/min Normal 60-69 yrs >49 mL/min Normal 70-79yrs 4 Clinical Report - Physicians/Mid Levels [facility] Emergency Department [address] [place] [address] Phone #: ext- [phone] 04/03/2020 16:19 Patient: [...] NEGATIVE (NORMAL: NEGAT { KIT LOT # [id number] ){ KIT EXP DATE 02.20.21 ){ PROCEDURAL CONTROL VALID ) Magnesium: (ANGELY: 04/03/2020 16:45) ( MsgRcvd 04/03/2020 17:33) Final results Test Result Flag Units (Reference) MAGNESIUM 1.8 MG/DL (1.7 - 2.2). 5 Clinical Report - Physicians/Mid Levels [facility] Emergency Department [address] [place] [address] Phone #: ext- [phone] 04/03/2020 16:19 Patient: NATALIYA BEASLEY Sex: F [...] f/u as outpt. Will image for yuki lcaey. pending results. Enter room and pt lying [...] Penidng call back. Consulted with surgeon (Dr. Hannon). Sts that he can see pt as [...] weight. 6 Clinical Report - Physicians/Mid Levels [facility] Emergency Department [address] [place] [address] Phone #: ext- [phone] 04/03/2020 16:19 Patient: NATALIYA BEASLEY Sex: F [...] weight. I have provided infomration on 2 [facility] surgeons for you to choose whom you would like. I did consult the surgeon at [facility] though and is aware of your conditions.). [...] Dispense 14 capsule. Refills: 0. Substitution permitted. [facility] [address] [place] [address]. . Zofran 4 mg tablet Take 1 tablet three times a day for 4 days -- Dispense 12 tablet. Refills: 0. Substitution permitted. [facility] [place] [address]. . Follow-up: Return to the emergency department as needed. Follow up with your healthcare provider in about two days if not better. Call for an appointment. Understanding of the discharge instructions verbalized by patient. 7 Clinical Report - Physicians/Mid Levels [facility] Emergency Department [address] [place] [address] Phone #: ext- [phone] 04/03/2020 16:19 Patient: NATALIYA BEASLEY [facility]#: [id number] Sex: F : 1995 Age: 24y Follow-up with: Shabbir Addison MD, Gastroenterology, [id number], [facility], [address] [place] [address], [address], [place], [address] Follow up. Call for the next available appointment. Reason for referral: evaluation and treatment. Follow-up with: [facility], , , [address] [place] [address], [address] Follow up. Call for the next available appointment. Reason for referral: evaluation and treatment.(Electronically signed by Imtiaz España P.A.-C 04/03/2020 21:42) Name Value Range Interpretation Code Description Data Michelle rce(s) Supporting Document(s) ID Date Data Source [id number] 04/03/2020 05:43:00 PM EST [facility] Name Value Range Interpretation Code Description Data [facility] rce(s) Supporting Document(s) [facility] SOURCE R [facility] COL[facility] yellow NORMAL: Yellow [facility] CLARITY hazy NORMAL: Clear [facility] Specific gravity of Urine by Test strip 1.020 1.001 - 1.030 [facility] pH 6 5 - 9 [facility] Glucose [Mass/volume] in Urine by Test strip NORM NORMAL: Negat [facility] Bilirubin.total [Presence] in Urine by Test strip NEG NORMAL: Negative [facility] Ketones [Presence] in Urine by Test strip 50 NORMAL: Negative [facility] Protein [Mass/volume] in Urine by Test strip 30 NORMAL: Negat judy [facility] Nitrite [Presence] in Urine by Test strip NEG NORMAL: Negative [facility] BLOOD 10 NORMAL: Negative [facility] Leukocyte esterase [Presence] in Urine by Test strip NEG DAYLIN L: Negative [facility] Urobilinogen [Mass/volume] in Urine by Test strip 1 less tito n 1.0 mg/dL [facility] MICROSCOPIC See Below [facility]osp ital WBC 3 - 5 NORMAL: NONE SEEN [facility] Erythrocytes [#/volume] in Urine by Test strip 1 - 3 NORMAL: NON E SEEN [facility] EPITHELIAL MODERATE NORMAL: NONE SEEN A [facility] Bacteria [Presence] in Urine sediment by Light microscopy Tr laura NORMAL: NONE SEEN [facility] Mucus [Presence] in Urine sediment by Light microscopy 2+ NOR MAL: NONE SEEN A [facility] Amorphous sediment [Presence] in Urine sediment by Light chelsey roscopy 2+ NORMAL: NONE SEEN [facility] ID Date Data Source [id number] 04/07/2020 09:15:00 PM EST [facility] Name Value Range Interpretation Code Description Data Michelle rce(s) Supporting Document(s) CULTURE URINE [facility] _CULTURE URINE_$$[id number]$$139051$$917683$$916374$$514312$$738746$$908521$$693576$$160251$$ 015926$$098595$$522713$$554719$$697361$$900521$$290260$$536900$$123231$$258198$$ 299374$$001100$$637835$$509742$$786301$$562255$$587849$$112796 -- Continued on next page --Patient: RITTER NATALIYA Martinez Order: Page 2Culture: CULTURE URINE Status: Final ==== -- Continued on next page --Patient: RITTER NATALIYA Martinez Order: Page 2Culture: CULTURE URINE Status: Prelim =====$$[id number]$$[id number] DATE/TIME: 04/07/2020 13:06Culture: CULTURE URINE Status: FinalUrine Culture,Comprehensive: P1No growth in 36 - 48 hours. Previous result entered on 04/06/2020 03:16 ET No growth after 18-24 hours.P1 Test performed by: [facility] CLIA #: [id number] [address] [id number] [facility] [address]Medical Director : Abhilash Hilaroi MD NPI #:Lab Di louis : 04/06/20.0654.XMT.SENT REF 04/07/20.2115.XMT.SENT REF ID Date Data Source [id number] 04/03/2020 05:36:00 PM EST [facility] Name Value Range Interpretation Code Description Data Michelle rce(s) Supporting Document(s) COMPREHENSIVE METABOLIC PANEL [facility] COMPREHENSIVE METABOLIC PANEL Sodium [Moles/volume] in Serum or Plasma 139 mEq/L 134 - 153 [facility] Potassium [Moles/volume] in Serum or Plasma 3.5 mEq/L 3.6 - 5.0 L [facility] Chloride [Moles/volume] in Serum or Plasma 100 mEq/L 98 - 107 [facility] Carbon dioxide, total [Moles/volume] in Serum or Plasma 29 MEQ/L 22 - 30 [facility] Glucose [Mass/volume] in Serum or Plasma 139 MG/DL 65 - 110 H [facility] BUN 11 MG/DL 7 - 21 [facility] al Creatinine [Mass/volume] in Serum or Plasma 0.5 MG/DL 0.7 - 1.5 L [facility] BUN/CREAT 22 8 - 27 [facility] Protein [Mass/volume] in Serum or Plasma 7.7 G/DL 6.3 - 8.2 [facility] Albumin [Mass/volume] in Serum or Plasma 4.9 G/DL 3.9 - 5.0 [facility] Globulin [Mass/volume] in Serum by calculation 2.8 GM/DL 2.4 - 3.2 [facility] A/G RATIO 1.8 0.8 - 2.0 [facility] Calcium [Mass/volume] in Serum or Plasma 10.1 MG/DL 8.4 - 10.2 [facility] Bilirubin.total [Mass/volume] in Serum or Plasma <0.7 MG/DL 0.2 - 1.3 [facility] Alkaline phosphatase [Enzymatic activity/volume] in Serum or Plasma 74 U/L 38 - 126 [facility] Aspartate aminotransferase [Enzymatic activity/volume] in Serum or Plasma 15 U/L 5 - 40 [facility] Alanine aminotransferase [Enzymatic activity/volume] in Seru m or Plasma 15 U/L 7 - 56 [facility] Anion gap 3 in Serum or Plasma 10.0 mmol/L 8.0 - 16.0 [facility] AGE 24 yrs [facility] al NON-AA GFR >60 mL/min [facility] ital AFR AMER GFR >60 mL/min [facility] Male GFR In terprentation 20-49 [...] >32 mL/min Normal ID Date Data Source [id number] 04/03/2020 05:33:00 PM [facility] Name Value Range Interpretation Code Description Data Michelle rce(s) Supporting Document(s) Magnesium [Mass/volume] in Serum or Plasma 1.8 MG/DL 1.7 - 2.2 [facility] ID Date Data Source [id number] 04/03/2020 05:33:00 PM [facility] Name Value Range Interpretation Code Description Data Michelle rce(s) Supporting Document(s) Lipase [Enzymatic activity/volume] in Serum or Plasma 15 U/L 13 - 60 [facility] ID Date Data Source [id number] 04/03/2020 05:27:00 PM EST [facility] Name Value Range Interpretation Code Description Data Michelle rce(s) Supporting Document(s) HCG SERUM QUAL NEGATIVE NORMAL: NEGATIVE [facility] HCG SERUM QL REENTER NEGATIVE NORMAL: NEGATIVE [facility] { KIT LOT # [id number] ){ KIT EXP DATE 02.20.21 ){ PROCEDURAL CONTROL VALID ) ID Date Data Source [id number] 04/03/2020 05:23:[address] [facility] Name Value Range Interpretation Code Description Data Michelle rce(s) Supporting Document(s) CBC W/AUTOMATED DIFF [facility] COMPLETE BLOOD COUNT Leukocytes [#/volume] in Blood by Automated count 10.2 10^3/uL 4.2 - 11.0 [facility] Erythrocytes [#/volume] in Blood by Automated count 4.79 10^6/uL 4. 20 - 5.40 [facility] Hemoglobin [Mass/volume] in Blood 11.7 g/dL 12.0 - 16.0 L [facility] Hematocrit [Volume Fraction] of Blood by Automated count 36.9 % 3 7.0 - 47.0 L [facility] Erythrocyte mean corpuscular volume [Entitic volume] by Auto mated count 77.0 fL 81.0 - 101 L [facility] Erythrocyte mean corpuscular hemoglobin [Entitic mass] by Automated count 24.4 pg 27.0 - 34.0 L [facility] Erythrocyte mean corpuscular hemoglobin concentration [Mass/volume] by Automated count 31.7 g/dL 31.0 - 36.0 [facility] Erythrocyte distribution width [Ratio] by Automated count 16.5 % 11.5 - 14.5 H [facility] Platelets [#/volume] in Blood by Automated count 365 10^3/uL 150 - 45 0 [facility] Platelet mean volume [Entitic volume] in Blood by Automated count 11.2 fL 7.4 - 10.4 H [facility] Neutrophils/100 leukocytes in Blood by Automated count 83.4 % 37. 0 - 80.0 H [facility] Lymphocytes/100 leukocytes in Blood by Manual count 10.4 % 25.0 - 40.0 L [facility] Monocytes/100 leukocytes in Blood by Automated count 5.6 % 3.0 - 8.0 [facility] Eosinophils/100 leukocytes in Blood by Automated count 0.0 % 0.0 - 7.0 [facility] Basophils/100 leukocytes in Blood by Automated count 0.2 % 0.0 - 2.5 [facility] %IG 0.4 % 0.0 - 0.[address] [facility] al %NRBC 0.0 % 0.0 - 0.0 [facility] Neutrophils [#/volume] in Blood by Automated count 8.50 10^3/uL 2.00 - 6.90 H [facility] Lymphocytes [#/volume] in Blood by Automated count 1.06 10^3/uL 0.60 - 3.40 [facility] Monocytes [#/volume] in Blood by Automated count 0.57 10^3/uL 0.00 - 0.90 [facility] Eosinophils [#/volume] in Blood by Automated count 0.00 10^3/uL 0.00 - 0.70 [facility] Basophils [#/volume] in Blood by Automated count 0.02 10^3/uL 0.00 - 0.20 [facility] #IG 0.04 10^3/uL 0.00 - 0.10 [facility] #NRBC 0.00 10^3/uL 0.00 - 0.00 [facility] MANUAL DIFF NOT INDICATED [facility] RBC MORPH NOT INDICATED [facility] ID Date Data Source [id number] 04/03/2020 05:23:00 PM EST [facility] Name Value Range Interpretation Code Description Data Michelle rce(s) Supporting Document(s) Lactate [Moles/volume] in Serum or Plasma 1.6 MMOL/L 0.2 - 2.2 [facility] ID Date Data Source [id number] 02/17/2020 01:07:00 PM EDT [facility] [address] [place] [address] PHONE: [phone] FAX: [phone] Name .................. : RITTER NATALIYA Martinez Acct Number.................. : [id number] ROOM. ................. : 117-1 MR Number ................... : [id number] Stay type ............. : O/P Discharge Date......... ... : Admit Date ......... : 02/16/20 Admit Phys .................... : ANTON-FALAN Date of ....... : 1995 Family Phys ................... : [employer] Phone .................. : [phone] Age ................................ : 24 Film# .................. .:[id number] Sex ................................. : F Unsigned transcriptions are preliminary reports and do not represent a medical or legal document CT ABD & PELVIS W/ IV ONLY [id number] COMPLETE:02/16/20 21:34 KJE [id number] (REASON FOR ABDOMEN: ABDOMINAL PAIN CT OF [...] dose: 507.0 mGycm Page 1 of 2 [facility] [address] [facility] [place] [address] PHONE: [phone] FAX: [phone] Name .................. : RITTER NATALIYA Martinez Acct Number.................. : [id number] ROOM. ................. : 117-1 MR Number ................... : [id number] Stay type ............. : O/P Discharge Date......... ... : Admit Date ......... : 02/16/20 Admit Phys .................... : ANTON-JOCELYNN Date of ....... : 1995 Family Phys ................... : [employer] Phone .................. : [phone] Age ................................ : 24 Film# .................. .:[id number] Sex ................................. : F Unsigned transcriptions are preliminary reports and do not represent a medical or legal document CT ABD & PELVIS W/ IV ONLY [id number] COMPLETE:02/16/20 21:34 KJE [id number] (REASON FOR ABDOMEN: ABDOMINAL PAIN Contrast agent in mL: 75 Isovue 370 Method of administration: Intravenous Electronically Reviewed and Signed By Genaro Lozoya M.D. , 02/17/20 13:07, MDY Transcribe Initials: FAHAD , Transcribe Date: 02/17/20 02:00, Dictation Date: Copy for: DAVID ALCALA Niki via fax Copy for: EMERGENCY DEPT via modem Copy for: 710 MED REC Page 2 of 2 Name Value Range Interpretation Code Description Data Michelle rce(s) Supporting Document(s) ID Date Data Source [id number] 02/17/2020 07:03:00 AM EDT [facility] Name Value Range Interpretation Code Description Data Michelle rce(s) Supporting Document(s) Magnesium [Mass/volume] in Serum or Plasma 2.5 MG/DL 1.7 - 2.2 H [facility] ID Date Data Source [id number] 02/17/2020 07:03:00 AM EDT [facility] Name Value Range Interpretation Code Description Data Michelle rce(s) Supporting Document(s) COMPREHENSIVE METABOLIC PANEL [facility] COMPREHENSIVE METABOLIC PANEL Sodium [Moles/volume] in Serum or Plasma 146 mEq/L 134 - 153 [facility] Potassium [Moles/volume] in Serum or Plasma 3.4 mEq/L 3.6 - 5.0 L [facility] Chloride [Moles/volume] in Serum or Plasma 107 mEq/L 98 - 107 [facility] Carbon dioxide, total [Moles/volume] in Serum or Plasma 29 MEQ/L 22 - 30 [facility] Glucose [Mass/volume] in Serum or Plasma 89 MG/DL 65 - 110 [facility] BUN 12 MG/DL 7 - 21 [facility] Creatinine [Mass/volume] in Serum or Plasma 0.6 MG/DL 0.7 - 1.5 L [facility] BUN/CREAT 20 8 - 27 [facility] Protein [Mass/volume] in Serum or Plasma 6.1 G/DL 6.3 - 8.2 L [facility] Albumin [Mass/volume] in Serum or Plasma 4.1 G/DL 3.9 - 5.0 [facility] Globulin [Mass/volume] in Serum by calculation 2.0 GM/DL 2.4 - 3.2 L [facility] A/G RATIO 2.1 0.8 - 2.0 H [facility] Calcium [Mass/volume] in Serum or Plasma 9.0 MG/DL 8.4 - 10.2 [facility] Bilirubin.total [Mass/volume] in Serum or Plasma <0.7 MG/DL 0.2 - 1.3 [facility] Alkaline phosphatase [Enzymatic activity/volume] in Serum or Plasma 52 U/L 38 - 126 [facility] Aspartate aminotransferase [Enzymatic activity/volume] in Serum or Plasma 21 U/L 5 - 40 [facility] Alanine aminotransferase [Enzymatic activity/volume] in Seru m or Plasma 44 U/L 7 - 56 [facility] Anion gap 3 in Serum or Plasma 10.0 mmol/L 8.0 - 16.0 [facility] AGE 24 yrs [facility] al NON-AA GFR >60 mL/min [facility] ital AFR AMER GFR >60 mL/min [facility] Male GFR In terprentation 20-49 [...] >32 mL/min Normal ID Date Data Source [id number] 02/17/2020 07:02:00 AM EDT [facility] Name Value Range Interpretation Code Description Data Michelle rce(s) Supporting Document(s) CBC W/AUTOMATED DIFF [facility] COMPLETE BLOOD COUNT Leukocytes [#/volume] in Blood by Automated count 8.4 10^3/uL 4.2 - 1 1.0 [facility] Erythrocytes [#/volume] in Blood by Automated count 3.93 10^6/uL 4. 20 - 5.40 L [facility] Hemoglobin [Mass/volume] in Blood 10.7 g/dL 12.0 - 16.0 L [facility] Hematocrit [Volume Fraction] of Blood by Automated count 33.8 % 3 7.0 - 47.0 L [facility] Erythrocyte mean corpuscular volume [Entitic volume] by Auto mated count 86.0 fL 81.0 - 101 [facility] Erythrocyte mean corpuscular hemoglobin [Entitic mass] by Automated count 27.2 pg 27.0 - 34.0 [facility] Erythrocyte mean corpuscular hemoglobin concentration [Mass/volume] by Automated count 31.7 g/dL 31.0 - 36.0 [facility] Erythrocyte distribution width [Ratio] by Automated count 14.2 % 11.5 - 14.5 [facility] Platelets [#/volume] in Blood by Automated count 267 10^3/uL 150 - 45 0 [facility] Platelet mean volume [Entitic volume] in Blood by Automated count 10.9 fL 7.4 - 10.4 H [facility] Neutrophils/100 leukocytes in Blood by Automated count 64.9 % 37. 0 - 80.0 [facility] Lymphocytes/100 leukocytes in Blood by Manual count 26.3 % 25.0 - 40.0 [facility] Monocytes/100 leukocytes in Blood by Automated count 7.8 % 3.0 - 8.0 [facility] Eosinophils/100 leukocytes in Blood by Automated count 0.2 % 0.0 - 7.0 [facility] Basophils/100 leukocytes in Blood by Automated count 0.4 % 0.0 - 2.5 [facility] %IG 0.4 % 0.0 - 0.0 H [facility] %NRBC 0.0 % 0.0 - 0.0 [facility] al Neutrophils [#/volume] in Blood by Automated count 5.42 10^3/uL 2.00 - 6.90 [facility] Lymphocytes [#/volume] in Blood by Automated count 2.20 10^3/uL 0.60 - 3.40 [facility] Monocytes [#/volume] in Blood by Automated count 0.65 10^3/uL 0.00 - 0.90 [facility] Eosinophils [#/volume] in Blood by Automated count 0.02 10^3/uL 0.00 - 0.70 [facility] Basophils [#/volume] in Blood by Automated count 0.03 10^3/uL 0.00 - 0.20 [facility] #IG 0.03 10^3/uL 0.00 - 0.10 [facility] #NRBC 0.00 10^3/uL 0.00 - 0.00 [facility] MANUAL DIFF NOT INDICATED [facility] RBC MORPH NOT INDICATED [facility] spital ID Date Data Source [id number] 02/16/2020 04:43:00 PM EDT [facility] 1 OrderSheet [facility] Emergency Department [address] [place] [address] Phone #: ext- [phone] 02/16/2020 16:35 Patient: NATALIYA BEASLEY Sex: F : 1995 Age: 24yWEIGHT:61.2 kg HEIGHT:62 inches BMI:24.7ALLERGIES: No Known Drug AllergyCHIEF COMPLAINT: abdominal pain, vomiting, nausea, constipationDIAGNOSIS: ProblemLAB ORDERSOrder Description Priority Entered Acknowledged InitialedCBC w Diff STAT 17:02/16/2020 17:17 [facility] TechJc; [id number] STAT 17:05 02/16/2020 17:17 [facility] TechJc; [id number] STAT 17:02/16/2020 17:17 [facility] TechJc; Rlfx2Wojjgkppnk (Clean STAT 17:05 02/16/2020 Ack'd: 17:26Catch) [facility] TechEDUARDO; Jc KC Wqjx4Kdfhritzm STAT 17:05 02/16/2020 17:17 [facility] Tech, Jc ER PA; [id number] STAT 17:05 02/16/2020 17:17 [facility] small business consultant, Jc ER PA; [id number] (Clean STAT 20:52 02/16/2020 Ack'd: 21:11Catch) Mariano Starks R.N.;Beta- HCG, Qual STAT 20:52 02/16/2020 Ack'd: 21:12Urine Mariano Starks R.N. PA;DIAGNOSTIC STUDY ORDERSOrder Description Priority Entered Acknowledged InitialedMEDICATION/IV/DRIP/FLUID ORDERSOrder Description Priority Entered Acknowledged Initialed 2 OrderSheet [facility] Emergency Department [address] [place] [address] Phone #: ext- [phone] 02/16/2020 16:35 Patient: [...] (21:08 02/16/2020)][Electronically signed by Maria De Jesus Jhavrei R.N. (22:22 02/16/2020)][E lectronically locked by Maria De Jesus Jhaveri R.N. (:02/16/2020)] Name Value Range Interpretation Code Description Data Michelle rce(s) Supporting Document(s) ID Date Data Source [id number] 02/16/2020 04:43:00 PM EDT [facility] 1 Medication Reconciliation Report [facility] Emergency Department [address] [place] [address] Phone #: ext- [phone] 02/16/2020 16:35 Patient: [...] rce(s) Supporting Document(s) ID Date Data Source [id number] 02/16/2020 04:43:00 PM EDT [facility] 1 Medication Administration Record [facility] Emergency Department [address] [place] [address] Phone #: ext- [phone] 02/16/2020 16:35 Patient: NATALIYA BEASLEY Sex: F : 1995 Age: 24yWeight: 61.2 kgHeight/Length: 62 inBMI: 24.7ALLERGIES: No Known Drug Allergy Date/Time Medication Administered Medication OrderedStart IV NS W/ BOLUS NS IV 1000 mL Bolus: : Bolus [id number]:[id number] 02/16/2020 Dose: IV Fluids mL (X1)Maria De [...] Dispensed: 100 mL bagStop Site: #1 right vutewmd35:56 02/16/2020Shakila Maria De Jesus, R.N.Given KCL LIQUID PO KCl Liquid PO 40 meq18:50 02/16/2020 Dose: 40 meq Syrup/Liquid POHale Maria De Jesus, R.N.Start MAGNESIUM SULFATE [IVPB] Magnesium Sulfate 2 g IVPB X118:49 02/16/2020 Dose: 2 gm IVPB dose: 2 gm (HIGH ALERTHale, Maria De Jesus, R.N. Rate: 2 gm/hr over 1 hour(s) MEDICATION, X1)---- Dispensed: 50 mL bagStop Site: #1 right nkfplaj18:51 02/16/2020Shakila Maria De Jesus, R.N.Start PROTONIX [IVPB] [...] rce(s) Supporting Document(s) ID Date Data Source [id number] 02/16/2020 04:43:00 PM EDT [facility] 1 General Instructions [facility] Emergency Department [address] [place] [address] Phone #: ext- [phone] 02/16/2020 16:35 Patient: NATALIYA BEASLEY Sex: F : 1995 Age: 24yHypokalemia; hypomagnesemia.(Electronically signed by EDUARDO Moses 02/16/2020 21:08) Name Value Range Interpretation Code Description Data Michelle rce(s) Supporting Document(s) ID Date Data Source [id number] 02/16/2020 04:43:00 PM EDT [facility] 1 Clinical Report - Nurses [facility] Emergency Department [address] [place] [address] Phone #: ext- [phone] 02/16/2020 16:35 Patient: [...] to shake after making this statement to bond writer. ptmucous membranes do appear dry.).Triage time: 16:41 02/16/2020. Acuity: LEVEL 3.Chief Complaint: ABDOMINAL PAIN.Alert.Onset. (four days ago). ( pt states "i am a ten, i don't feel well" for her pain scale.). The patient has hadnausea and vomiting. Last oral intake by patient was (this am-yogurt but reports emesis).Treatment [facility]:None. --16:46 02/16/20 Natividad Felix R.N.16:41 02/16/20. BP: [...] harming or 2 Clinical Report - Nurses [facility] Emergency Department [address] [place] [address] Phone #: ext- [phone] 02/16/2020 16:35 Patient: [...] ( Pt 3 Clinical Report - Nurses [facility] Emergency Department [address] [place] [address] Phone #: ext- [phone] 02/16/2020 16:35 Patient: NATALIYA BEASLEY Sex: F [...] precautions. Verbalizes 4 Clinical Report - Nurses [facility] Emergency Department [address] [place] [address] Phone #: ext- [phone] 02/16/2020 16:35 Patient: NATALIYA BEASLEY Sex: F : 1995 Age: 24y understanding. --21:17 02/16/20 Maria De Jesus Jhaveri R.N. 21:21 02/16/20. Patient transported to CT by wheelchair with mask and assistant professor of radiology. --21:26 02/16/20 Maria De Jesus Jhaveri R.N. Patient returned from CT by wheelchair with mask and assistant professor of radiology. --21:34 02/16/20 Maria De Jesus Jhaveri R.N. [...] rce(s) Supporting Document(s) ID Date Data Source [id number] 02/16/2020 04:43:00 PM EDT [facility] 1 Clinical Report - Physicians/Mid Levels [facility] Emergency Department [address] [place] [address] Phone #: ext- [phone] 02/16/2020 16:35 Patient: [...] to shake after making this statement to bond writer. pt mucous membranes do appear dry and [...] normal. 2 Clinical Report - Physicians/Mid Levels [facility] Emergency Department [address] [place] [address] Phone #: ext- [phone] 02/16/2020 16:35 Patient: NATALIYA BEASLEY Sex: F [...] NOT INDICATED RBC MORPH NOT INDICATED CMP: (ANGELY: 02/16/2020 17:22) ( MsgRcvd 02/16/2020 18:03) Final results Test Result Flag Units (Reference) COMPREHENSIVE METABOLIC PANEL COMPREHENSIVE METABOLIC PANEL SODIUM 141 mEq/L (134 - 153) POTASSIUM 2.6 LL mEq/L (3.6 - 5.0) CALL/ READ BACK BEN IN ER BY: CD DATE/TIME 02.16.201801 CHLORIDE 95 L mEq/L (98 - 107) 3 Clinical Report - Physicians/Mid Levels [facility] Emergency Department [address] [place] [address] Phone #: ext- [phone] 02/16/2020 16:35 Patient: [...] mL/min Normal Lipase: (ANGELY: 02/16/2020 17:22) ( [facility] 02/16/2020 18:04) Final results Test Result Flag Units (Reference) LIPASE 15 U/L (13 - 60) Magnesium: (ANGELY: 02/16/2020 17:22) ( [facility] 02/16/2020 18:04) Final results Test Result Flag Units (Reference) MAGNESIUM 1.6 L MG/DL (1.7 - 2.2) ETOH: (ANGELY: 02/16/2020 17:22) ( [facility] 02/16/2020 18:04) Final results Test Result Flag Units (Reference) ALCOHOL <10.0 MG/DL ALCOHOL % 0.00 % (0.00 - 0.01) *FOR MEDICAL PURPOSES ONLY*.PROGRESS AND PROCEDURESCourse of Care: 18:37 Feb. Evaluation after observation. (Discussed mag and potassium levelswith Sarah CASIANO WOOLEN TESTER and she will obs pt. Pt is [...] and 4 Clinical Report - Physicians/Mid Levels [facility] Emergency Department [address] [place] [address] Phone #: ext- [phone] 02/16/2020 16:35 Patient: NATALIYA BEASLEY Sex: F : 1995 Age: 24y need for admission. Patient and mother agrees with plan of care. 18:38 Feb 16 2020. Disposition: Observation in the Acute Inpatient Unit, Monitored. 18:38 Feb 16 2020 Sarah CASIANO WOOLEN TESTER. UTI (catheter associated) was not present prior [...] rce(s) Supporting Document(s) ID Date Data Source [id number] 02/20/2020 03:47:00 PM EDT [facility] Name Value Range Interpretation Code Description Data Michelle rce(s) Supporting Document(s) CULTURE URINE [facility] spital _CULTURE URINE_$$[id number]$$[id number]$$828406$$149783$$817745$$328799$$260362$$746904$$291102$$ 459043$$395616$$813014$$810563$$811550$$235429$$473777$$638914$$878464$$862816$$ 579809$$898288$$694942$$625768$$785586$$917980$$943260$$570409 -- Continued on next page --Patient: RITTER NATALIYA Martienz Order: [id number] Page 2Culture: CULTURE URINE Status: Final ==== -- Continued on next page --Patient: RITTER NATALIYA Martinez Order: [id number] Page 2Culture: CULTURE URINE Status: Prelim =====$$[id number]$$[id number] DATE/TIME: 02/20/2020 15:06Culture: CULTURE URINE Status: FinalUrine Culture,Comprehensive: U8Hkboq urogenital flora10,000-25,000 colony forming units per mL Previous result entered on 02/19/2020 03:15 ET Specimen has been received and testing has been initiated.P1 Test performed by: [facility] #: [id number] [address] [place] [address] [id number] [facility] [id number] Director : Abhilash Hilario MD NPI #:Guard Lieutenant : 02/20/20.0635.XMT.SENT REF 02/20/20.1548.XMT.SENT REF 02/20/20.1548.CM .to [facility] via fax ID Date Data Source [id number] 02/16/2020 09:26:[address] [facility] Name Value Range Interpretation Code Description Data Michelle rce(s) Supporting Document(s) [facility]IS [facility] URINALYS[facility] SOURCE R [facility] COLOR yellow NORMAL: Yellow [facility] CLARITY clear NORMAL: Clear [facility] Specific gravity of Urine by Test strip 1.010 1.001 - 1.030 [facility] pH 7 5 - 9 [facility] Glucose [Mass/volume] in Urine by Test strip NORM NORMAL: Negat [facility] Bilirubin.total [Presence] in Urine by Test strip NEG NORMAL: Negative [facility] Ketones [Presence] in Urine by Test strip 150 NORMAL: Negative A [facility] Protein [Mass/volume] in Urine by Test strip 30 NORMAL: Negat [facility] Nitrite [Presence] in Urine by Test strip NEG NORMAL: Negative [facility] BLOOD NEG NORMAL: Negative [facility] Leukocyte esterase [Presence] in Urine by Test strip 25 DAYLIN L: Negative [facility] Urobilinogen [Mass/volume] in Urine by Test strip 4 less tito n 1.0 mg/dL [facility] MICROSCOPIC See Below [facility] ital WBC 0 - 1 NORMAL: NONE SEEN [facility] Erythrocytes [#/volume] in Urine by Test strip 0 - 1 NORMAL: NON E SEEN [facility] EPITHELIAL MANY NORMAL: NONE SEEN A [facility] Bacteria [Presence] in Urine sediment by Light microscopy 2+ MOD NORMAL: NONE SEEN A [facility] ID Date Data Source [id number] 02/16/2020 09:24:00 PM EDT [facility] Name Value Range Interpretation Code Description Data Michelle rce(s) Supporting Document(s) HCG URINE QUAL NEGATIVE NORMAL: NEGATIVE [facility] HCG URINE QL REENTER NEGATIVE NORMAL: NEGATIVE [facility] { KIT LOT # [id number] ){ KIT EXP DATE 02/20/21 ){ PROCEDURAL CONTROL VALID ) ID Date Data Source [id number] 02/16/2020 09:22:00 PM EDT [facility] Name Value Range Interpretation Code Description Data Michelle rce(s) Supporting Document(s) HCG SERUM QUAL NEGATIVE NORMAL: NEGATIVE [facility] HCG SERUM QL REENTER NEGATIVE NORMAL: NEGATIVE [facility] { KIT LOT # [id number] ){ KIT EXP DATE 02.20.21 ){ PROCEDURAL CONTROL VALID ) ID Date Data Source [id number] 02/16/2020 06:04:00 PM EDT [facility] Name Value Range Interpretation Code Description Data Michelle rce(s) Supporting Document(s) Ethanol [Moles/volume] in Blood <10.0 MG/DL [facility] ALCOHOL % 0.00 % 0.00 - 0.01 [facility] ital *FOR MEDICAL PURPOSES ONLY * ID Date Data Source [id number] 02/16/2020 06:04:00 PM EDT [facility] Name Value Range Interpretation Code Description Data Michelle rce(s) Supporting Document(s) Magnesium [Mass/volume] in Serum or Plasma 1.6 MG/DL 1.7 - 2.2 L [facility] ID Date Data Source [id number] 02/16/2020 06:04:00 PM T [facility] Name Value Range Interpretation Code Description Data Michelle rce(s) Supporting Document(s) Lipase [Enzymatic activity/volume] in Serum or Plasma 15 U/L 13 - 60 [facility] ID Date Data Source [id number] 02/16/2020 06:00:00 PM EDT [facility] Name Value Range Interpretation Code Description Data Michelle rce(s) Supporting Document(s) COMPREHENSIVE METABOLIC PANEL [facility] COMPREHENSIVE METABOLIC PANEL Sodium [Moles/volume] in Serum or Plasma 141 mEq/L 134 - 153 [facility] Potassium [Moles/volume] in Serum or Plasma 2.6 mEq/L 3.6 - 5.0 [facility] CALL/ READ BACK BEN IN ER [facility] BY: CD [facility] al DATE/TIME 02.16.201801 [facility] spital Chloride [Moles/volume] in Serum or Plasma 95 mEq/L 98 - 107 L [facility] Carbon dioxide, total [Moles/volume] in Serum or Plasma 28 MEQ/L 22 - 30 [facility] Glucose [Mass/volume] in Serum or Plasma 108 MG/DL 65 - 110 [facility] BUN 17 MG/DL 7 - 21 [facility] Creatinine [Mass/volume] in Serum or Plasma 0.6 MG/DL 0.7 - 1.5 L [facility] BUN/CREAT 28 8 - 27 H [facility] al Protein [Mass/volume] in Serum or Plasma 8.3 G/DL 6.3 - 8.2 H [facility] Albumin [Mass/volume] in Serum or Plasma 5.3 G/DL 3.9 - 5.0 H [facility] Globulin [Mass/volume] in Serum by calculation 3.0 GM/DL 2.4 - 3.2 [facility] A/G RATIO 1.8 0.8 - 2.0 [facility] al Calcium [Mass/volume] in Serum or Plasma 10.3 MG/DL 8.4 - 10.2 H [facility] Bilirubin.total [Mass/volume] in Serum or Plasma 0.9 MG/DL 0.2 - 1.3 [facility] Alkaline phosphatase [Enzymatic activity/volume] in Serum or Plasma 71 U/L 38 - 126 [facility] Aspartate aminotransferase [Enzymatic activity/volume] in Serum or Plasma 36 U/L 5 - 40 [facility] Alanine aminotransferase [Enzymatic activity/volume] in Seru m or Plasma 63 U/L 7 - 56 H [facility] Anion gap 3 in Serum or Plasma 18.0 mmol/L 8.0 - 16.0 H [facility] AGE 24 yrs [facility] al NON-AA GFR >60 mL/min [facility] ital AFR AMER GFR >60 mL/min [facility] sp[facility] Male GFR In terprentation 20-49 [...] >32 mL/min Normal ID Date Data Source [id number] 02/16/2020 05:38:00 PM EDT [facility] Name Value Range Interpretation Code Description Data Michelle rce(s) Supporting Document(s) CBC W/AUTOMATED DIFF [facility] COMPLETE BLOOD COUNT Leukocytes [#/volume] in Blood by Automated count 10.4 10^3/uL 4.2 - 11.0 [facility] Erythrocytes [#/volume] in Blood by Automated count 4.60 10^6/uL 4. 20 - 5.40 [facility] Hemoglobin [Mass/volume] in Blood 12.6 g/dL 12.0 - 16.0 [facility] Hematocrit [Volume Fraction] of Blood by Automated count 37.9 % 3 7.0 - 47.0 [facility] Erythrocyte mean corpuscular volume [Entitic volume] by Auto mated count 82.4 fL 81.0 - 101 [facility] Erythrocyte mean corpuscular hemoglobin [Entitic mass] by Automated count 27.4 pg 27.0 - 34.0 [facility] Erythrocyte mean corpuscular hemoglobin concentration [Mass/volume] by Automated count 33.2 g/dL 31.0 - 36.0 [facility] Erythrocyte distribution width [Ratio] by Automated count 13.8 % 11.5 - 14.5 [facility] Platelets [#/volume] in Blood by Automated count 360 10^3/uL 150 - 45 0 [facility] Platelet mean volume [Entitic volume] in Blood by Automated count 10.7 fL 7.4 - 10.4 H [facility] Neutrophils/100 leukocytes in Blood by Automated count 77.0 % 37. 0 - 80.0 [facility] Lymphocytes/100 leukocytes in Blood by Manual count 14.3 % 25.0 - 40.0 L [facility] Monocytes/100 leukocytes in Blood by Automated count 8.0 % 3.0 - 8.0 [facility] Eosinophils/100 leukocytes in Blood by Automated count 0.0 % 0.0 - 7.0 [facility] Basophils/100 leukocytes in Blood by Automated count 0.2 % 0.0 - 2.5 [facility] %IG 0.5 % 0.0 - 0.0 H [facility] %NRBC 0.0 % 0.0 - 0.0 [facility] al Neutrophils [#/volume] in Blood by Automated count 7.98 10^3/uL 2.00 - 6.90 H [facility] Lymphocytes [#/volume] in Blood by Automated count 1.48 10^3/uL 0.60 - 3.40 [facility] Monocytes [#/volume] in Blood by Automated count 0.83 10^3/uL 0.00 - 0.90 [facility] Eosinophils [#/volume] in Blood by Automated count 0.00 10^3/uL 0.00 - 0.70 [facility] Basophils [#/volume] in Blood by Automated count 0.02 10^3/uL 0.00 - 0.20 [facility] #IG 0.05 10^3/uL 0.00 - 0.10 [facility] #NRBC 0.00 10^3/uL 0.00 - 0.00 [facility] MANUAL DIFF NOT INDICATED [facility] RBC MORPH NOT INDICATED [facility] spital ID Date Data Source [id number] 01/19/2020 08:44:[address] [facility] Name Value Range Interpretation Code Description Data Michelle rce(s) Supporting Document(s) HCT 28.4 % 36.0-47.[address] [facility] HGB 9.3 g/dL 12.0-15.[address] [facility] MCH 32.7 G/DL pg 32.0-36.5 N [facility] MCHC 31.1 PG % 27.0-33.[address] [facility] PLATELETS 164 10 10*3/mm3 150-[address] [facility] RBC 2.99 10 10*6/mm3 4.00-5.[address] [facility] RDW 13.2 % 11.5-14.[address] [facility] WBC TOTAL 7.3 4.0-10.[address] [facility] ID Date Data Source [id number] 01/19/2020 08:44:[address] [facility] Name Value Range Interpretation Code Description Data Michelle rce(s) Supporting Document(s) BG FASTING 108 mg/dL 70-100 H [facility] ID Date Data Source [id number] 01/18/2020 04:42:[address] [facility] 27.49.233.6 G/DL31.4 PG183 102.93 1013.9 9.8 98 30.810.433.8 G/DL31.6 PG176 103.29 1013. 410.7 109 Name Value Range Interpretation Code Description Data Michelle rce(s) Supporting Document(s) ID Date Data Source [id number] 01/18/2020 04:42:[address] [facility] 27.49.233.6 G/DL31.4 PG183 102.93 1013.9 9.8 98 30.810.433.8 G/DL31.6 PG176 103.29 1013. 410.7 109 Name Value Range Interpretation Code Description Data Michelle rce(s) Supporting Document(s) ID Date Data Source [id number] 01/17/2020 07:33:[address] [facility] 27.49.233.6 G/DL31.4 PG183 102.93 1013.9 9.8 98 30.810.433.8 G/DL31.6 PG176 103.29 1013. 410.7 109 Name Value Range Interpretation Code Description Data Michelle rce(s) Supporting Document(s) ID Date Data Source [id number] 01/17/2020 07:33:[address] [facility] 27.49.233.6 G/DL31.4 PG183 102.93 1013.9 9.8 98 30.810.433.8 G/DL31.6 PG176 103.29 1013. 410.7 109 Name Value Range Interpretation Code Description Data Michelle rce(s) Supporting Document(s) ID Date Data Source [id number] 12/27/2019 03:38:00 PM EDT [facility] Name Value Range Interpretation Code Description Data Michelle rce(s) Supporting Document(s) Potassium [Moles/volume] in Serum or Plasma 3.6 mEq/L 3.6 - 5.0 [facility] ID Date Data Source [id number] 12/27/2019 07:03:00 AM EDT [facility] Name Value Range Interpretation Code Description Data Michelle [facility](s) Supporting Document(s) COMPREHENSIVE METABOLIC PANEL [facility] COMPREHENSIVE METABOLIC PANEL Sodium [Moles/volume] in Serum or Plasma 137 mEq/L 134 - 153 [facility] Potassium [Moles/volume] in Serum or Plasma 3.2 mEq/L 3.6 - 5.0 L [facility] Chloride [Moles/volume] in Serum or Plasma 101 mEq/L 98 - 107 [facility] Carbon dioxide, total [Moles/volume] in Serum or Plasma 27 MEQ/L 22 - 30 [facility] Glucose [Mass/volume] in Serum or Plasma 91 MG/DL 65 - 110 [facility] BUN 9 MG/DL 7 - 21 [facility] Creatinine [Mass/volume] in Serum or Plasma 0.5 MG/DL 0.7 - 1.5 L [facility] BUN/CREAT 18 8 - 27 [facility] al Protein [Mass/volume] in Serum or Plasma 6.0 G/DL 6.3 - 8.2 L [facility] Albumin [Mass/volume] in Serum or Plasma 3.9 G/DL 3.9 - 5.0 [facility] Globulin [Mass/volume] in Serum by calculation 2.1 GM/DL 2.4 - 3.2 L [facility] A/G RATIO 1.9 0.8 - 2.0 [facility] Calcium [Mass/volume] in Serum or Plasma 8.8 MG/DL 8.4 - 10.2 [facility] Bilirubin.total [Mass/volume] in Serum or Plasma 1.4 MG/DL 0.2 - 1.3 H [facility] Alkaline phosphatase [Enzymatic activity/volume] in Serum or Plasma 49 U/L 38 - 126 [facility] Aspartate aminotransferase [Enzymatic activity/volume] in Serum or Plasma 32 U/L 5 - 40 [facility] Alanine aminotransferase [Enzymatic activity/volume] in Seru m or Plasma 33 U/L 7 - 56 [facility] Anion gap 3 in Serum or Plasma 9.0 mmol/L 8.0 - 16.0 [facility] AGE [address] [facility] al NON-AA GFR >60 mL/min [facility] ital AFR AMER GFR >60 mL/min [facility] sp[facility] Male GFR In terprentation 20-49 [...] >32 mL/min Normal ID Date Data Source [id number] 12/27/2019 06:51:00 AM EDT [facility] Name Value Range Interpretation Code Description Data Michelle rce(s) Supporting Document(s) Magnesium [Mass/volume] in Serum or Plasma 2.1 MG/DL 1.7 - 2.2 [facility] ID Date Data Source [id number] 12/27/2019 06:43:00 AM T [facility] Name Value Range Interpretation Code Description Data Michelle rce(s) Supporting Document(s) CBC W/AUTOMATED DIFF [facility] COMPLETE BLOOD COUNT Leukocytes [#/volume] in Blood by Automated count 8.3 10^3/uL 4.2 - 1 1.0 [facility] Erythrocytes [#/volume] in Blood by Automated count 4.06 10^6/uL 4. 20 - 5.40 L [facility] Hemoglobin [Mass/volume] in Blood 12.7 g/dL 12.0 - 16.0 [facility] Hematocrit [Volume Fraction] of Blood by Automated count 37.3 % 3 7.0 - 47.0 [facility] Erythrocyte mean corpuscular volume [Entitic volume] by Auto mated count 91.9 fL 81.0 - 101 [facility] Erythrocyte mean corpuscular hemoglobin [Entitic mass] by Automated count 31.3 pg 27.0 - 34.0 [facility] Erythrocyte mean corpuscular hemoglobin concentration [Mass/volume] by Automated count 34.0 g/dL 31.0 - 36.0 [facility] Erythrocyte distribution width [Ratio] by Automated count 12.5 % 11.5 - 14.5 [facility] Platelets [#/volume] in Blood by Automated count 231 10^3/uL 150 - 45 0 [facility] Platelet mean volume [Entitic volume] in Blood by Automated count 10.2 fL 7.4 - 10.4 [facility] Neutrophils/100 leukocytes in Blood by Automated count 65.2 % 37. 0 - 80.0 [facility] Lymphocytes/100 leukocytes in Blood by Manual count 25.2 % 25.0 - 40.0 [facility] Monocytes/100 leukocytes in Blood by Automated count 8.8 % 3.0 - 8.0 H [facility] Eosinophils/100 leukocytes in Blood by Automated count 0.2 % 0.0 - 7.0 [facility] Basophils/100 leukocytes in Blood by Automated count 0.2 % 0.0 - 2.5 [facility] %IG 0.4 % 0.0 - 0.0 H [facility] al %NRBC 0.0 % 0.0 - 0.0 [facility] al Neutrophils [#/volume] in Blood by Automated count 5.41 10^3/uL 2.00 - 6.90 [facility] Lymphocytes [#/volume] in Blood by Automated count 2.09 10^3/uL 0.60 - 3.40 [facility] Monocytes [#/volume] in Blood by Automated count 0.73 10^3/uL 0.00 - 0.90 [facility] Eosinophils [#/volume] in Blood by Automated count 0.02 10^3/uL 0.00 - 0.70 [facility] Basophils [#/volume] in Blood by Automated count 0.02 10^3/uL 0.00 - 0.20 [facility] #IG 0.03 10^3/uL 0.00 - 0.10 [facility] #NRBC 0.00 10^3/uL 0.00 - 0.00 [facility] MANUAL DIFF NOT INDICATED [facility] RBC MORPH NOT INDICATED [facility] ID Date Data Source [id number] 12/26/2019 10:41:00 [place] [address] RESPIRATORY CARE REPORT ==== ---------NAME------- NUMBER SEX AGE ADMIT DISC. XRAY# F/C TYPERITTER NATALIYA Martinez [id number] F 24 12/26/19 [id number] X6B O/P DATE OF : 1995 M/R# [id number] #: [id number] LOCATION: EMERGENCY DEPT EKG 23408 COMP LETE:12/26/19 14:18 EWW [id number] PHYSICIAN: CLAUDIO PAUL Name Value Range Interpretation Code Description Data Michelle rce(s) Supporting Document(s) ID Date Data Source [id number] 12/26/2019 10:59:00 AM EDT [facility] 1 OrderSheet [facility] Emergency Department [address] [place] [address] Phone #: ext- [phone] 12/26/2019 10:40 Patient: [...] 1000 11:03 12/26/2019 11:22 Etta, 2 OrderSheet [facility] Emergency Department [address] [place] [address] Phone #: ext- [phone] 12/26/2019 10:40 Patient: NATALIYA BEASLEY Sex: F [...] rce(s) Supporting Document(s) ID Date Data Source [id number] 12/26/2019 10:59:00 AM EDT [facility] 1 Medication Reconciliation Report [facility] Emergency Department [address] [place] [address] Phone #: ext- [phone] 12/26/2019 10:40 Patient: [...] rce(s) Supporting Document(s) ID Date Data Source [id number] 12/26/2019 10:59:00 AM EDT [facility] 1 Medication Administration Record [facility] Emergency Department [address] [place] [address] Phone #: ext- [phone] 12/26/2019 10:40 Patient: NATALIYA BEASLEY Sex: F : 1995 Age: 24yWeight: 58.9 kgHeight/Length: 64 inBMI: 22.3ALLERGIES: Sulfa Antibiotics Date/Time Medication Administered Medication OrderedStart LR [IV] LR IV : Bolus 1000 mL, then 96910:22 12/26/2019 Dose: IV Fluids mL/hrZakiya Quiles, R.NSveta Bolus: 1000 mL wide open---- Dispensed: 1000 mL bagStop Site: #1 left AC16:30 12/26/2019Zakiya Quiles R.NSvetaGiven KCL LIQUID PO KCl Liquid PO 40 meq12:18 12/26/2019 Dose: 40 meq Zakiya Mary R.NSvetaStart KCL [IVPB] KCl IVPB 10 meq/333aB32:15 12/26/2019 Dose: 10 meq IVPBZakiya Quiles, R.N. [...] Mary R.N.Start KCL [IVPB] KCl IVPB 10 meq/061vP01:06 12/26/2019 Dose: 10 meq IVPBZakiya Quiles R.N. Rate: 100 mL/hr over 1 hour(s)---- Dispensed: 100 mL bagStop Site: #1 left AC16:11 12/26/2019Zakiya Quiles R.N.Given ZOFRAN [IVP] (ONDANSETRON HCL) Zofran IVP 8 mg15:36 12/26/2019 Dose: 8 mg Alexia Kelly R.N. Site: #1 left AC Name Value Range Interpretation Code Description Data Michelle rce(s) Supporting Document(s) ID Date Data Source [id number] 12/26/2019 10:59:00 AM EDT [facility] 1 General Instructions [facility] Emergency Department [address] [place] [address] Phone #: ext- [phone] 12/26/2019 10:40 Patient: NATALIYA BEASLEY Sex: F : 1995 Age: 24yHypokalemia.(Electronically signed by EDUARDO Moses 12/26/2019 21:44) Name Value Range Interpretation Code Description Data Michelle rce(s) Supporting Document(s) ID Date Data Source [id number] 12/26/2019 10:59:00 AM EDT [facility] 1 Clinical Report - Nurses [facility] Emergency Department [address] [place] [address] Phone #: ext- [phone] 12/26/2019 10:40 Patient: [...] pain, pt also voicescramps in her hands).Treatment [facility]:None.SEPSIS SCREEN: SIRS Screen negative. Sepsis Screen negative. [...] to Coronavirus. 2 Clinical Report - Nurses [facility] Emergency Department [address] [place] [address] Phone #: ext- [phone] 12/26/2019 10:40 Patient: NATALIYA BEASLYE Sex: F : 1995 Age: 24y SELF [...] Quiles R.N. 3 Clinical Report - Nurses [facility] Emergency Department [address] [place] [address] Phone #: ext- [phone] 12/26/2019 10:40 Patient: [...] or swelling. IV flushed thoroughly. --13:54 12/26/19Alexia eKmp R.N.13:54 12/26/2019 Magnesium Sulfate IVPB via IV site #1 Discontinued: completed. Total amount infused:100 mL. --13:54 12/26/19 Alexia Kemp R.N.14:57 12/26/2019 IV Fluids LR via IV site #1 Bag Change: bag #1 infused. Total amount infused: 1000. 4 Clinical Report - Nurses [facility] Emergency Department [address] [place] [address] Phone #: ext- [phone] 12/26/2019 10:40 Patient: [...] or swelling. IV flushed thoroughly. --16:39 12/26/19 Zakiya Quiles R.N.DISPOSITION / DISCHARGE Departure time: 16:31 [...] Quiles R.N. 5 Clinical Report - Nurses [facility] Emergency Department [address] [place] [address] Phone #: ext- [phone] 12/26/2019 10:40 Patient: NATALIYA BEASLEY Sex: F : 1995 Age: 24yLocked/Released at 12/26/2019 16:39 by Zakiya Quiles R.N. Name Value Range Interpretation Code Description Data Michelle rce(s) Supporting Document(s) ID Date Data Source [id number] 12/26/2019 10:59:00 AM EDT [facility] 1 Clinical Report - Physicians/Mid Levels [facility] Emergency Department [address] [place] [address] Phone #: ext- [phone] 12/26/2019 10:40 Patient: [...] Antibiotics. 2 Clinical Report - Physicians/Mid Levels [facility] Emergency Department [address] [place] [address] Phone #: ext- [phone] 12/26/2019 10:40 Patient: NATALIYA BEASLEY Sex: F [...] BACK NIK MCCORMACK ER BY: LINDA DATE/TIME [id number] CHLORIDE 86 L mEq/L (98 - 107) [...] 1.3) 3 Clinical Report - Physicians/Mid Levels [facility] Emergency Department [address] [place] [address] Phone #: ext- [phone] 12/26/2019 10:40 Patient: NATALIYA BEASLEY Sex: F : 1995 Age: 24y ALKALINE PHOS 63 U/L (38 - 126) SGOT/AST 16 U/L (5 - 40) SGPT/ALT 16 U/L (7 - 56) ANION GAP 19.0 H mmol/L (8.0 - 16.0) AGE 24 yrs NON- AA GFR >60 mL/min AFR AMER GFR >60 mL/min Male GFR Interprentation 20-49 yrs >60 mL/min Jsyorb79-08 yrs >56 mL/min Normal 60-69 yrs >49 mL/min Normal 70-79yrs>42 mL/min Normal 80 and above >35 mL/min Normal Female GFRInterpretation 20-39 yrs >60 mL/min Normal 40-49 yrs >58 mL/minNormal 50-59 yrs >51 mL/min Normal 60-69 yrs >45 mL/min Ikvirn56-83 yrs >39 mL/min Normal 80 and above [...] TO RUSTY BY: OSMANI DATE/TIME 12/26/19 @ 43610 4 Clinic al Report - Physicians/Mid Levels [facility] Emergency Department [address] [place] [address] Phone #: ext- [phone] 12/26/2019 10:40 Patient: [...] Male GFR Interprentation 20-49 yrs >60 mL/min Gtvowb17-81 yrs >56 mL/min Normal 60-69 yrs >49 mL/min Normal 70-79yrs>42 mL/min Normal 80 and above >35 mL/min Normal Female GFRInterpretation 20-39 yrs >60 mL/min Normal 40-49 yrs >58 mL/minNormal 50-59 yrs >51 mL/min Normal 60-69 yrs >45 mL/min Gtlfpj38- 79 yrs >39 mL/min Normal 80 and above >32 mL/min NormalUrinalysis: (ANGELY: 12/26/2019 13:00) ( [facility] 12/26/2019 14:21) Final results Test Result Flag [...] NoneBeta-HCG, Qual Urine: (ANGELY: 12/26/2019 13:00) ( [facility] 12/26/2019 14:22) Final results Test Result Flag Units (Reference) HCG URINE QUAL NEGATIVE (NORMAL: NEGAT HCG URINE QL REENTER NEGATIVE (NORMAL: NEGAT { KIT LOT # [id number] ){ KIT EXP DATE02.27.21 ){ PROCEDURAL CONTROL VALID) 5 Clinical Report - Physicians/Mid Levels [facility] Emergency Department [address] [place] [address] Phone #: ext- [phone] 12/26/2019 10:40 Patient: NATALIYA BEASLEY Sex: F : 1995 Age: 24y Troponin-T: (ANGELY: 12/26/2019 11:10) ( [facility] 12/26/2019 11:48) Final results Test Result Flag Units (Reference) TROPONIN T <0.01 NG/ML (0.00 - 0.10) TROPONIN T0.1 ng/ml Recommended as the clinical threshold value forTroponin T. Magnesium: (ANGELY: 12/26/2019 11:10) ( [facility] 12/26/2019 12:04) Final results Test Result Flag Units (Reference) MAGNESIUM 1.5 L MG/DL (1.7 - 2.2) EKG: (ANGELY: 12/26/2019 11:03) ( CagRcvd 12/26/2019 14:34) In Progress.PROGRESS AND PROCEDURESCourse of Care: 15:Dec 26 2019. Evaluation after observation and results of tests back. (Sherrie CASIANO WOOLEN TESTER and she will admit pt to obs to correct K. Pt is agreeable with dx and tx plan.). Patient counseled in person regarding the patient's stable but serious condition, test results, diagnosis and need for admission. Patient agrees with plan of care. 15:Dec 26 2019. Disposition: Observation in the Acute Inpatient Unit, Monitored. 15:Dec 26 2019 Sarah CASIANO WOOLEN TESTER. UTI (catheter associated) was not present prior [...] rce(s) Supporting Document(s) ID Date Data Source [id number] 12/26/2019 04:05:00 PM EDT [facility] Name Value Range Interpretation Code Description Data Michelle rce(s) Supporting Document(s) BASIC METABOLIC PANEL [facility] BASIC METABOLIC PANEL Sodium [Moles/volume] in Serum or Plasma 134 mEq/L 134 - 153 [facility] Potassium [Moles/volume] in Serum or Plasma 3.0 mEq/L 3.6 - 5.0 L [facility] Chloride [Moles/volume] in Serum or Plasma 88 mEq/L 98 - 107 L [facility] Carbon dioxide, total [Moles/volume] in Serum or Plasma 29 MEQ/L 22 - 30 [facility] Glucose [Mass/volume] in Serum or Plasma 106 MG/DL 65 - 110 [facility] BUN 14 MG/DL 7 - 21 [facility] al Creatinine [Mass/volume] in Serum or Plasma 0.8 MG/DL 0.7 - 1.5 [facility] BUN/CREAT 18 8 - 27 [facility] Calcium [Mass/volume] in Serum or Plasma 9.7 MG/DL 8.4 - 10.2 [facility] Anion gap 3 in Serum or Plasma 17.0 mmol/L 8.0 - 16.0 H [facility] AGE 24 yrs [facility] al AFR AMER GFR >60 mL/min [facility] Ho spital NON-AA GFR >60 mL/min [facility] ital Male GFR Inter prentation 20-49 yrs [...] >32 mL/min Normal ID Date Data Source [id number] 12/26/2019 02:24:00 PM EDT [facility] Name Value Range Interpretation Code Description Data Michelle rce(s) Supporting Document(s) COMPREHENSIVE METABOLIC PANEL [facility] COMPREHENSIVE METABOLIC PANEL Sodium [Moles/volume] in Serum or Plasma 132 mEq/L 134 - 153 L [facility] Potassium [Moles/volume] in Serum or Plasma 2.9 mEq/L 3.6 - 5.0 LL [facility] CALL/ READ BACK [employer] DIRECTOR [facility] BY: LINDA [facility] al DATE/TIME [id number] [facility] Chloride [Moles/volume] in Serum or Plasma 86 mEq/L 98 - 107 L [facility] Carbon dioxide, total [Moles/volume] in Serum or Plasma 27 MEQ/L 22 - 30 [facility] Glucose [Mass/volume] in Serum or Plasma 118 MG/DL 65 - 110 H [facility] BUN 15 MG/DL 7 - 21 [facility] al Creatinine [Mass/volume] in Serum or Plasma 0.7 MG/DL 0.7 - 1.5 [facility] BUN/CREAT 21 8 - 27 [facility] al Protein [Mass/volume] in Serum or Plasma 7.7 G/DL 6.3 - 8.2 [facility] Albumin [Mass/volume] in Serum or Plasma 5.0 G/DL 3.9 - 5.0 [facility] Globulin [Mass/volume] in Serum by calculation 2.7 GM/DL 2.4 - 3.2 [facility] A/G RATIO 1.9 0.8 - 2.0 [facility] Calcium [Mass/volume] in Serum or Plasma 10.2 MG/DL 8.4 - 10.2 [facility] Bilirubin.total [Mass/volume] in Serum or Plasma 1.4 MG/DL 0.2 - 1.3 H [facility] Alkaline phosphatase [Enzymatic activity/volume] in Serum or Plasma 63 U/L 38 - 126 [facility] Aspartate aminotransferase [Enzymatic activity/volume] in Serum or Plasma 16 U/L 5 - 40 [facility] Alanine aminotransferase [Enzymatic activity/volume] in Seru m or Plasma 16 U/L 7 - 56 [facility] Anion gap 3 in Serum or Plasma 19.0 mmol/L 8.0 - 16.0 H [facility]GE 24 [facility] GFR >60 mL/min [facility] ital AFR AMER GFR >60 mL/min [facility] sp[facility] Male GFR In terprentation 20-49 [...] >32 mL/min Normal ID Date Data Source [id number] 12/26/2019 03:36:00 PM EDT [facility] Name Value Range Interpretation Code Description Data Michelle rce(s) Supporting Document(s) [facility] URINALYSIS SOURCE R [facility] al COLOR yellow NORMAL: Yellow [facility] CLARITY Clear NORMAL: Clear [facility] Specific gravity of Urine by Test strip 1.010 1.001 - 1.030 [facility] pH 8 5 - 9 [facility] al Glucose [Mass/volume] in Urine by Test strip NORM NORMAL: Negat [facility] Bilirubin.total [Presence] in Urine by Test strip NEG NORMAL: Negative [facility] Ketones [Presence] in Urine by Test strip 15 NORMAL: Negative [facility] Protein [Mass/volume] in Urine by Test strip 15 NORMAL: Negat [facility] Nitrite [Presence] in Urine by Test strip NEG NORMAL: Negative [facility] BLOOD NEG NORMAL: Negative [facility] Leukocyte esterase [Presence] in Urine by Test strip 25 DAYLIN L: Negative [facility] Urobilinogen [Mass/volume] in Urine by Test strip 1 less tito n 1.0 mg/dL [facility] MICROSCOPIC See Below [facility] ital WBC 3 - 5 NORMAL: NONE SEEN [facility] Erythrocytes [#/volume] in Urine by Test strip 0 - 1 NORMAL: NON E SEEN [facility] EPITHELIAL MANY NORMAL: NONE SEEN A [facility] Bacteria [Presence] in Urine sediment by Light microscopy Tr laura NORMAL: NONE SEEN [facility] Mucus [Presence] in Urine sediment by Light microscopy 2+ NOR MAL: NONE SEEN A [facility] Casts [#/area] in Urine sediment by Microscopy low power field See Be low [facility] Hyaline casts [#/area] in Urine sediment by Microscopy low p ower field 1-3 NORMAL: None Seen A [facility] ID Date Data Source [id number] 12/26/2019 02:21:00 PM EDT [facility] Name Value Range Interpretation Code Description Data Michelle rce(s) Supporting Document(s) HCG URINE QUAL NEGATIVE NORMAL: NEGATIVE [facility] HCG URINE QL REENTER NEGATIVE NORMAL: NEGATIVE [facility] { KIT LOT # [id number] ){ KIT EXP DATE 02.27.21 ){ PROCEDURAL CONTROL VALID ) ID Date Data Source [id number] 12/26/2019 05:19:00 PM EDT [facility] Name Value Range Interpretation Code Description Data Michelle rce(s) Supporting Document(s) Folate [Mass/volume] in Serum or Plasma 14.6 NG/ML 5.0 - 27.2 [facility] ID Date Data Source [id number] 12/26/2019 12:03:00 PM EDT [facility] Name Value Range Interpretation Code Description Data Michelle rce(s) Supporting Document(s) Magnesium [Mass/volume] in Serum or Plasma 1.5 MG/DL 1.7 - 2.2 L [facility] ID Date Data Source [id number] 12/26/2019 12:01:00 PM EDT [facility] Name Value Range Interpretation Code Description Data Michelle rce(s) Supporting Document(s) COMPREHENSIVE METABOLIC PANEL [facility] COMPREHENSIVE METABOLIC PANEL Sodium [Moles/volume] in Serum or Plasma 134 mEq/L 134 - 153 [facility] Potassium [Moles/volume] in Serum or Plasma 2.9 mEq/L 3.6 - 5.0 LL [facility] CALL/ READ BACK CALLED TO [facility] BY: OSMANI [facility] Hospit al DATE/TIME 12/26/19 @ [address]39 [facility] Chloride [Moles/volume] in Serum or Plasma 82 mEq/L 98 - 107 L [facility] Carbon dioxide, total [Moles/volume] in Serum or Plasma 28 MEQ/L 22 - 30 [facility] Glucose [Mass/volume] in Serum or Plasma 120 MG/DL 65 - 110 H [facility] BUN 19 MG/DL 7 - 21 [facility] al Creatinine [Mass/volume] in Serum or Plasma 0.9 MG/DL 0.7 - 1.5 [facility] BUN/CREAT 21 8 - 27 [facility] al Protein [Mass/volume] in Serum or Plasma 8.1 G/DL 6.3 - 8.2 [facility] Albumin [Mass/volume] in Serum or Plasma 5.5 G/DL 3.9 - 5.0 H [facility] Globulin [Mass/volume] in Serum by calculation 2.6 GM/DL 2.4 - 3.2 [facility] A/G RATIO 2.1 0.8 - 2.0 H [facility] Calcium [Mass/volume] in Serum or Plasma 10.6 MG/DL 8.4 - 10.2 H [facility] Bilirubin.total [Mass/volume] in Serum or Plasma 1.6 MG/DL 0.2 - 1.3 H [facility] Alkaline phosphatase [Enzymatic activity/volume] in Serum or Plasma 68 U/L 38 - 126 [facility] Aspartate aminotransferase [Enzymatic activity/volume] in Serum or Plasma 19 U/L 5 - 40 [facility] Alanine aminotransferase [Enzymatic activity/volume] in Seru m or Plasma 19 U/L 7 - 56 [facility] Anion gap 3 in Serum or Plasma 24.0 mmol/L 8.0 - 16.0 H [facility] AGE 24 yrs [facility] al NON-AA GFR >60 mL/min [facility] ital AFR AMER GFR >60 mL/min [facility] sp[facility] Male GFR In terprentation 20-49 [...] >32 mL/min Normal ID Date Data Source [id number] 12/26/2019 11:49:00 AM EDT [facility] Name Value Range Interpretation Code Description Data Michelle rce(s) Supporting Document(s) CBC W/AUTOMATED DIFF [facility] COMPLETE BLOOD COUNT Leukocytes [#/volume] in Blood by Automated count 14.9 10^3/uL 4.2 - 11.0 H [facility] Erythrocytes [#/volume] in Blood by Automated count 5.08 10^6/uL 4. 20 - 5.40 [facility] Hemoglobin [Mass/volume] in Blood 15.8 g/dL 12.0 - 16.0 [facility] Hematocrit [Volume Fraction] of Blood by Automated count 45.4 % 3 7.0 - 47.0 [facility] Erythrocyte mean corpuscular volume [Entitic volume] by Auto mated count 89.4 fL 81.0 - 101 [facility] Erythrocyte mean corpuscular hemoglobin [Entitic mass] by Automated count 31.1 pg 27.0 - 34.0 [facility] Erythrocyte mean corpuscular hemoglobin concentration [Mass/volume] by Automated count 34.8 g/dL 31.0 - 36.0 [facility] Erythrocyte distribution width [Ratio] by Automated count 12.2 % 11.5 - 14.5 [facility] Platelets [#/volume] in Blood by Automated count 392 10^3/uL 150 - 45 0 [facility] Platelet mean volume [Entitic volume] in Blood by Automated count 9.8 fL 7.4 - 10.4 [facility] Neutrophils/100 leukocytes in Blood by Automated count 81.1 % 37. 0 - 80.0 H [facility] Lymphocytes/100 leukocytes in Blood by Manual count 10.7 % 25.0 - 40.0 L [facility] Monocytes/100 leukocytes in Blood by Automated count 7.6 % 3.0 - 8.0 [facility] Eosinophils/100 leukocytes in Blood by Automated count 0.1 % 0.0 - 7.0 [facility] Basophils/100 leukocytes in Blood by Automated count 0.1 % 0.0 - 2.5 [facility] %IG 0.4 % 0.0 - 0.0 H [facility] %NRBC 0.0 % 0.0 - 0.0 [facility] al Neutrophils [#/volume] in Blood by Automated count 12.10 10^3/uL 2. 00 - 6.90 H [facility] Lymphocytes [#/volume] in Blood by Automated count 1.59 10^3/uL 0.60 - 3.40 [facility] Monocytes [#/volume] in Blood by Automated count 1.13 10^3/uL 0.00 - 0.90 H [facility] Eosinophils [#/volume] in Blood by Automated count 0.01 10^3/uL 0.00 - 0.70 [facility] Basophils [#/volume] in Blood by Automated count 0.02 10^3/uL 0.00 - 0.20 [facility] #IG 0.06 10^3/uL 0.00 - 0.10 [facility] #NRBC 0.00 10^3/uL 0.00 - 0.00 [facility] ospital MANUAL DIFF SEE BELOW [facility] ital Segmented neutrophils/100 leukocytes in Blood by Manual count 76 % 37 - 80 [facility] %LYMPH 16 % 25 - [address] [facility] al %MONO 8 % 3 - 8 [facility] al RBC MORPH MORPH IS NORMAL [facility] ID Date Data Source [id number] 12/26/2019 11:48:00 AM EDT [facility] Name Value Range Interpretation Code Description Data Michelle rce(s) Supporting Document(s) TROPONIN T <0.01 NG/ML 0.00 - 0.10 [facility] ospital TROPONIN T0.1 ng/ml Recommended as the c linical threshold value forTroponin T. ID Date Data Source [id number] 12/12/2019 12:03:00 PM EDT [facility] [address] [place] [address] PHONE: [phone] FAX: [phone] Name .................. : RITTER NATALIYA Martinez Acct Number.................. : [id number] ROOM. ................. : 100-1 Number ................... : [id number] Stay type ............. : O/P Discharge Date......... ... : Admit Date ......... : 12/09/19 Admit Phys .................... : MULLER HARD Date of ....... : 1995 Family Phys ................... : COLLAZO SCOT Phone .......... ........ : [phone] Age ................................ : 24 Film# .................. .:[id number] Sex ................................. : F Unsigned transcriptions are preliminary reports and do not represent a medical or legal document HEPATIC [id number] COMPLETE:12/09/19 14:38 [facility] [id number] Reason(s): Nausea w Vomiting HEPATIC ULTRASOUND: COMPARISON: [...] rce(s) Supporting Document(s) ID Date Data Source [id number] 12/12/2019 10:57:00 AM EDT [place] [address] [place] [address] PHONE: [phone] FAX: [phone] Name .................. : RITTER NATALIYA Martinez Acct Number.................. : [id number] ROOM. ................. : 100-1 MR Number ................... : [id number] Stay type ............. : O/P Discharge Date......... ... : Admit Date ......... : 12/09/19 Admit Phys .................... : MULLER HARD Date of ....... : 1995 Family Phys ................... : [employer] Phone .................. : [phone] Age ................................ : 24 Film# .................. .:[id number] Sex ................................. : F Unsigned transcriptions are preliminary reports and do not represent a medical or legal document CT ABD & PELVIS W/ IV ONLY [id number] COMPLETE:12/09/19 16:05 RLB [id number] Reason(s): Abdominal Pain CT OF THE ABDOMEN [...] lacey: No adenopathy. Page 1 of 2 [facility] [address] [place] [address] PHONE: [phone] FAX: [phone] Name .................. : RITTER AN Juan Acct Number.................. : [id number] ROOM. ................. : 100 MR Number ................... : [id number] Stay type ............. : O/P Discharge Date......... ... : Admit Date ......... : 12/09/19 Admit Phys .................... : MULLER HARD Date of ....... : 1995 Family Phys ................... : [employer] Phone .................. : [phone] Age ................................ : 24 Film# .................. .:[id number] Sex ................................. : F Unsigned transcriptions are preliminary reports and do not represent a medical or legal document CT ABD & PELVIS W/ IV ONLY [id number] COMPLETE:12/09/19 16:05 RLB [id number] Reason(s): Abdominal Pain Vessels: Normal abdominal aorta [...] rce(s) Supporting Document(s) ID Date Data Source [id number] 12/12/2019 10:55:00 [place] [address] PHONE: [phone] FAX: [phone] Name .................. : RITTER NATALIYA Martinez Acct Number.................. : [id number] ROOM. ................. : 100-1 Number ................... : [id number] Stay type ............. : O/P Discharge Date......... ... : Admit Date ......... : 12/09/19 Admit Phys .................... : RENZO HARD Date of ....... : 1995 Family Phys ................... : COLLAZO SCOT Phone .......... ........ : [phone] Age ................................ : 24 Film# .................. .:[id number] Sex ................................. : F Unsigned transcriptions are preliminary reports and do not represent a medical or legal document CHEST 2 VIEWS [id number] COMPLETE:12/09/19 16:01 ARS [id number] Reason(s): upper abd pain CHEST X-RAY: PA [...] rce(s) Supporting Document(s) ID Date Data Source [id number] 12/11/2019 03:11:00 PM EDT [facility] Name Value Range Interpretation Code Description Data Michelle rce(s) Supporting Document(s) Potassium [Moles/volume] in Serum or Plasma 3.5 mEq/L 3.6 - 5.0 L [facility] ID Date Data Source [id number] 12/11/2019 11:52:00 AM EDT [facility] Name Value Range Interpretation Code Description Data Michelle rce(s) Supporting Document(s) Potassium [Moles/volume] in Serum or Plasma 3.3 mEq/L 3.6 - 5.[address] [facility] Hospital ID Date Data Source [id number] 12/11/2019 10:11:00 AM EDT [facility] Name Value Range Interpretation Code Description Data Michelle rce(s) Supporting Document(s) Folate [Mass/volume] in Serum or Plasma 11.2 NG/ML 5.0 - 27.2 [facility] ID Date Data Source [id number] 12/11/2019 08:22:00 AM T [facility] Name Value Range Interpretation Code Description Data Michelle rce(s) Supporting Document(s) Magnesium [Mass/volume] in Serum or Plasma 1.7 MG/DL 1.7 - 2.2 [facility] ID Date Data Source [id number] 12/11/2019 07:46:00 AM EDT [facility] Name Value Range Interpretation Code Description Data Michelle rce(s) Supporting Document(s) CBC W/AUTOMATED DIFF [facility] COMPLETE BLOOD COUNT Leukocytes [#/volume] in Blood by Automated count 6.2 10^3/uL 4.2 - 1 1.0 [facility] Erythrocytes [#/volume] in Blood by Automated count 3.94 10^6/uL 4. 20 - 5.40 L [facility] Hemoglobin [Mass/volume] in Blood 12.3 g/dL 12.0 - 16.0 [facility] Hematocrit [Volume Fraction] of Blood by Automated count 36.9 % 3 7.0 - 47.0 L [facility] Erythrocyte mean corpuscular volume [Entitic volume] by Auto mated count 93.7 fL 81.0 - 101 [facility] Erythrocyte mean corpuscular hemoglobin [Entitic mass] by Automated count 31.2 pg 27.0 - 34.0 [facility] Erythrocyte mean corpuscular hemoglobin concentration [Mass/volume] by Automated count 33.3 g/dL 31.0 - 36.0 [facility] Erythrocyte distribution width [Ratio] by Automated count 12.4 % 11.5 - 14.5 [facility] Platelets [#/volume] in Blood by Automated count 178 10^3/uL 150 - 45 0 [facility] Platelet mean volume [Entitic volume] in Blood by Automated count 10.0 fL 7.4 - 10.4 [facility] Neutrophils/100 leukocytes in Blood by Automated count 54.4 % 37. 0 - 80.0 [facility] Lymphocytes/100 leukocytes in Blood by Manual count 38.0 % 25.0 - 40.0 [facility] Monocytes/100 leukocytes in Blood by Automated count 6.0 % 3.0 - 8.0 [facility] Eosinophils/100 leukocytes in Blood by Automated count 1.0 % 0.0 - 7.0 [facility] Basophils/100 leukocytes in Blood by Automated count 0.3 % 0.0 - 2.5 [facility] %IG 0.3 % 0.0 - 0.0 [facility] %NRBC 0.0 % 0.0 - 0.0 [facility] al Neutrophils [#/volume] in Blood by Automated count 3.36 10^3/uL 2.00 - 6.90 [facility] Lymphocytes [#/volume] in Blood by Automated count 2.35 10^3/uL 0.60 - 3.40 [facility] Monocytes [#/volume] in Blood by Automated count 0.37 10^3/uL 0.00 - 0.90 [facility] Eosinophils [#/volume] in Blood by Automated count 0.06 10^3/uL 0.00 - 0.70 [facility] Basophils [#/volume] in Blood by Automated count 0.02 10^3/uL 0.00 - 0.20 [facility] #IG 0.02 10^3/uL 0.00 - 0.10 [facility] o[facility] #NRBC 0.00 10^3/uL 0.00 - 0.00 [facility] MANUAL DIFF NOT INDICATED [facility] RBC MORPH NOT INDICATED [facility] spital ID Date Data Source [id number] 12/11/2019 07:44:00 AM EDT [facility] Name Value Range Interpretation Code Description Data Michelle rce(s) Supporting Document(s) COMPREHENSIVE METABOLIC PANEL [facility] COMPREHENSIVE METABOLIC PANEL Sodium [Moles/volume] in Serum or Plasma 140 mEq/L 134 - 153 [facility] Potassium [Moles/volume] in Serum or Plasma 3.0 mEq/L 3.6 - 5.0 L [facility] Chloride [Moles/volume] in Serum or Plasma 105 mEq/L 98 - 107 [facility] Carbon dioxide, total [Moles/volume] in Serum or Plasma 26 MEQ/L 22 - 30 [facility] Glucose [Mass/volume] in Serum or Plasma 89 MG/DL 65 - 110 [facility] BUN 6 MG/DL 7 - 21 L [facility] al Creatinine [Mass/volume] in Serum or Plasma 0.4 MG/DL 0.7 - 1.5 L [facility] BUN/CREAT 15 8 - 27 [facility] Protein [Mass/volume] in Serum or Plasma 5.9 G/DL 6.3 - 8.2 L [facility] Albumin [Mass/volume] in Serum or Plasma 4.0 G/DL 3.9 - 5.0 [facility] Globulin [Mass/volume] in Serum by calculation 1.9 GM/DL 2.4 - 3.2 L [facility] A/G RATIO 2.1 0.8 - 2.0 H [facility] Calcium [Mass/volume] in Serum or Plasma 8.8 MG/DL 8.4 - 10.2 [facility] Bilirubin.total [Mass/volume] in Serum or Plasma 1.1 MG/DL 0.2 - 1.3 [facility] Alkaline phosphatase [Enzymatic activity/volume] in Serum or Plasma 52 U/L 38 - 126 [facility] Aspartate aminotransferase [Enzymatic activity/volume] in Serum or Plasma 31 U/L 5 - 40 [facility] Alanine aminotransferase [Enzymatic activity/volume] in Seru m or Plasma 48 U/L 7 - 56 [facility] Anion gap 3 in Serum or Plasma 9.0 mmol/L 8.0 - 16.0 [facility] AGE [address] [facility] al NON-AA GFR >60 mL/min [facility]osp ital AFR AMER GFR >60 mL/min [facility] Ho spital Male GFR In terprentation 20-49 [...] >32 mL/min Normal ID Date Data Source [id number] 12/09/2019 12:55:00 PM EDT [facility] 1 OrderSheet [facility] Emergency Department [address] [place] [address] Phone #: ext- [phone] 12/09/2019 12:30 Patient: [...] RN P.A.-C;HCG Serum Qual STAT 13:12/09/2019 14:04 Bernard Patel RN P.A.-C;Troponin-T STAT 13:12/09/2019 14:04 Bernard Patel RN P.A.-C;Urine Drug Screen STAT 13:12/09/2019 13:42 Imtiaz Alvarez R.N. P.A.- C;Monospot STAT 13:12/09/2019 14:04 Bernard Patel RN 2 OrderSheet [facility] Emergency Department [address] [place] [address] Phone #: ext- [phone] 12/09/2019 12:30 -------- [...] Petermeq/100mL Imtiaz Patel RN P.A.-C; 3 OrderSheet [facility] Emergency Department [address] [place] [address] Phone #: ext- [phone] 12/09/2019 12:30 Patient: NATALIYA BEASLEY Sex: F : 1995 Age: 24yBenadryl 25 mg IVP 15:33 12/09/2019 15:39 Antonio,X1 dose: 25 mg Imtiaz Galvan R.N.(NOW x1) P.A.-C;GENERAL ORDERSOrder Description Priority Entered Acknowledged InitialedAccucheck 13:12/09/2019 14:22 Bernard Patel RN P.A.-C;NPO 13:12/09/2019 14:04 Bernard Patel RN P.A.-C;Saline Lock 13:12/09/2019 14:04 Bernard Patel RN P.A.-C;EKG 13:12/09/2019 14:04 Bernard Patel RN P.A.-C;Fruit And Vegetable Inspector 13:12/09/2019 14:04 Bernard(continuous) Imtiaz Patel RN P.A.-C;Pulse oximeter 13:12/09/2019 14:04 Bernard(Continuous) Imtiaz Patel RN P.A.-C;[Electronically signed by Bernard Patel RN (17:12/09/2019)][Electronically signed by Imtiaz España P.A.-C (11:00 12/10/2019)][Electronically locked by Bernard Patel RN (:12/09/2019)] Name Value Range Interpretation Code Description Data Michelle rce(s) Supporting Document(s) ID Date Data Source [id number] 12/09/2019 12:55:00 PM EDT [facility] 1 Medication Reconciliation Report [facility] Department [address] [place] [address] Phone #: ext- [phone] 12/09/2019 12:30 Patient: [...] rce(s) Supporting Document(s) ID Date Data Source [id number] 12/09/2019 12:55:00 PM EDT [facility] 1 Medication Administration Record [facility] Emergency Department [address] [place] [address] Phone #: ext- [phone] 12/09/2019 12:30 Patient: NATALIYA BEASLEY Sex: F : 1995 Age: 24yWeight: 58.9 kgHeight/Length: 62 inBMI: 23.8ALLERGIES: None, Sulfa Antibiotics Date/Time Medication Administered Medication OrderedStart IV NS IV NS : Bolus 500 mL, then 48078:06 12/09/2019 Dose: IV Fluids mL/hrPeter EASTON Patel [...] Dylon Patel KCL [IVPB] KCl IVPB 10 meq/247dA27:02 12/09/2019 Dose: 10 meq Luigi Patel RN Rate: 100 mL/hr over 1 hour(s)---- Dispensed: 100 mL bagStop Site: #1 right upper arm17:02 12/09/2019Jorgito Martinez BENADRYL [IVP] (DIPHENHYDRAMINE Benadryl 25 mg IVP X1 dose: 2515:25 12/09/2019 HCL) mg (NOW x1)Mandy Alvarez R.N. Dose: 25 mg IVP In: NS 10 mL Site: #1 right upper arm 2 Medication Administration Record [facility] Emergency Department [address] [place] [address] Phone #: ext- [phone] 12/09/2019 12:30 Patient: NATALIYA BEASLEY Sex: F : 1995 Age: 24y Name Value Range Interpretation Code Description Data Michelle rce(s) Supporting Document(s) ID Date Data Source [id number] 12/09/2019 12:55:00 PM EDT [facility] 1 General Instructions [facility] Emergency Department [address] [place] [address] Phone #: ext- [phone] 12/09/2019 12:30 Patient: [...] or muscle cramps Dizziness 2 General Instructions [facility] Emergency Department [address] [place] [address] Phone #: ext- [phone] 12/09/2019 12:30 Patient: NATALIYA BEASLEY Sex: F : 1995 Age: 24yCall 911Call 911 if any of the following occur: Irregular heartbeat, extra beats, or very fast heart rate Loss of con sciousness [id number] [employer] [place] [address]. All rights reserved. This information is not intended as asubstitute for professional medical care. Always follow your healthcare professional's instructions. You have been given the following additional information: Hypokalemia(Electronically signed by Imtiaz España P.A.-C 12/10/2019 11:00) Name Value Range Interpretation Code Description Data Michelle rce(s) Supporting Document(s) ID Date Data Source [id number] 12/09/2019 12:55:00 PM EDT [facility] 1 Clinical Report - Nurses [facility] Emergency Department [address] [place] [address] Phone #: ext- [phone] 12/09/2019 12:30 Patient: NATALIYA BEASLEY Sex: F : 1995 Age: 24yTRIAGEArrived by private vehicle. Historian: patient. Accompanied by family. ( here on Thursday for vomitand it continues today).Acuity: LEVEL 3.Chief Complaint: ABDOMINAL PAIN, NAUSEA and VOMITING.Alert.Onset. (thursday). The patient has had nausea, vomiting and abdominal pain. The pain is described aslocated in the upper abdomen.Treatment ST[facility]OC[facility] MERCHANDISER:None.SEPSIS SCREEN: SIRS Screen negative. Sepsis Screen negative. [...] Alexia, R.N. 2 Clinical Report - Nurses [facility] Emergency Department [address] [place] [address] Phone #: ext- [phone] 12/09/2019 12:30 Patient: [...] Kemp R.N. 3 Clinical Report - Nurses [facility] Emergency Department [address] [place] [address] Phone #: ext- [phone] 12/09/2019 12:30 Patient: NATALYIA BEASLEY Sex: F : 1995 Age: 24y13:13 12/09/2019 Site #1 started via IV in the right upper arm with an 20g angiocath, with aseptictechnique and good blood return; one attempt. Saline lock flushed with 10 mL saline. --13:13 12/09/19Wai Martinez transported to sonogram by wheelchair with assistant professor of radiology. --13:38 12/09/19 Wai Martinez returned from sonogram by wheelchair with assistant professor of radiology. --13:58 12/09/19 Bernard Patel RN14:06 12/09/2019 Started [...] to the PA. --14:13 12/09/19Mando ibrahim ER Pre Sales Network Engineer( FSBS 107). --14:12/09/19 Bernard Patel RN14:12/09/2019 Started [...] --14:56 12/09/19 4 Clinical Report - Nurses [facility] Emergency Department [address] [place] [address] Phone #: ext- [phone] 12/09/2019 12:30 Patient: [...] to radiology and CT by wheelchair with assistant professor of radiology. --15:47 12/09/19 Bernard Patel RN16:02 12/09/2019 Started [...] EASTON Thomas 5 Clinical Report - Nurses [facility] Emergency Department [address] [place] [address] Phone #: ext- [phone] 12/09/2019 12:30 [id number] Sex: F : 1995 Age: 24y Patient returned from radiology and CT by wheelchair with assistant professor of radiology. --16:02 12/09/19 Bernard Patel RN 16:05 12/09/19. [...] rce(s) Supporting Document(s) ID Date Data Source [id number] 12/09/2019 12:55:00 PM EDT [facility] 1 Clinical Report - Physicians/Mid Levels [facility] Emergency Department [address] [place] [address] Phone #: ext- [phone] 12/09/2019 12:30 Patient: [...] no improvement of N/V. Seen here in [facility] ER 2 days ago w ith [...] Oral. 2 Clinical Report - Physicians/Mid Levels [facility] Emergency Department [address] [place] [address] Phone #: ext- [phone] 12/09/2019 12:30 Patient: NATALIYA BEASLEY Sex: F [...] X-RAYS, AND EKGEKG: Sinus rhythem w/ short OR; nonspecific ST abnormality; prolonged QT; abnormal ECG. Discussed and reviewed with/by attending. Compared previous on . Chest X-ray: (Mikaela hampton Alan - 12/09/2019 3:51:33 PM nad). The X- rays were interpreted by the radiologist. CT Abdomen - Pelvis: Mikaela hampton Alan - 12/09/2019 4:05:21 PM No acute disease. The study was interpreted by the radiologist. 3 Clinical Report - Physicians/Mid Levels [facility] Emergency Department [address] [place] [address] Phone #: ext- [phone] 12/09/2019 12:30 Patient: [...] abd painTRANSPORTATION: WC IV? O2? Oxygen?(No) Room: [facility] w Diff: (ANGELY: 12/09/2019 14:15) ( MsgRcvd [...] (3.6 - 5.0) CALL/ READ BACK CHAYA AFTER [employer] PROGRAM DIRECTOR BY: LINDA DATE/TIME [id number] Clinical Report - Physicians/Mid Levels [facility] Emergency Department [address] [place] [address] Phone #: ext- [phone] 12/09/2019 12:30 Patient: [...] Male GFR Interprentation 20-49 yrs >60 mL/min Ijfkjg36-38 yrs >56 mL/min Normal 60-69 yrs >49 mL/min Normal 70-79yrs>42 mL/min Normal 80 and above >35 mL/min Normal Female GFRInterpretation 20-39 yrs >60 mL/min Normal 40-49 yrs >58 mL/minNormal 50-59 yrs >51 mL/min Normal 60-69 yrs >45 mL/min Alymyy06- 79 yrs >39 mL/min Normal 80 and above >32 mL/min NormalLipase: (ANGELY: 12/09/2019 14:15) ( [facility] 12/09/2019 14:51) Final results Test Result Flag Units (Reference) LIPASE 12 L U/L (13 - 60)PT/INR: (ANGELY: 12/09/2019 14:15) ( [facility] 12/09/2019 14:38) Final results Test Result Flag Units (Reference) PROTIME 12.4 SECONDS (11.0 - 15.5) INR 0.91 L (0.93 - 1.23) \\BLDo\\INR INTERPRETATION\\BLDx\\ Therapeutic range for Coumadin andrelated oral anticoagulants. -International Normalized Ratio (INR): 2.0 - 3.0 for VenousThrombosis, Pulmonary Embolus, Tissue heart valves, Acute FL, Atrial Fibrillation, Valvular heartdisease and recurrent Systemic Embolism. - International Normalized Ratio (INR): 2.5 - 3.5for Mechanical Prosthetic valve.Magnesium: (ANGELY: 12/09/2019 14:15) ( [facility] 12/09/2019 14:51) Final results Test Result Flag Units (Reference) MAGNESIUM 1.6 L MG/DL (1.7 - 2.2)Beta-HCG, Qual Serum: (ANGELY: 12/09/2019 14:15) ( [facility] 12/09/2019 14:43) Final results Test Result Flag Units (Reference) HCG SERUM QUAL NEGATIVE (NORMAL: NEGAT HCG SERUM QL REENTER NEGATIVE (NORMAL: NEGAT { KIT LOT # [id number] ){ KIT EXP DATE02.27.21 ){ PROCEDURAL CONTROL VALID)Troponin-T: (ANGELY: 12/09/2019 14:15) ( [facility] 12/09/2019 14:51) Final results Test Result Flag Units (Reference) 5 Clinical Report - Physicians/Mid Levels [facility] Emergency Department [address] [place] [address] Phone #: ext- [phone] 12/09/2019 12:30 Patient: NATALIYA BEASLEY Sex: F : 1995 Age: 24y TROPONIN T <0.01 NG/ML (0.00 - 0.10) TROPONIN T0.1 ng/ml Recommended as the clinical threshold value Moi Kam US Liver: (ANGELY: 12/09/2019 13:26) ( [facility] 12/09/2019 14:38) In Progress HEPATIC Reason(s): Nausea w Vomiting TRANSPORTATION: IV? O2? Oxygen?(No) Room: ED Urinalysis: (ANGELY: 12/09/2019 13:05) ( [facility] 12/09/2019 13:35) Final results Test Result Flag [...] better. 6 Clinical Report - Physicians/Mid Levels [facility] Emergency Department [address] [place] [address] Phone #: ext- [phone] 12/09/2019 12:30 Patient: [...] Name Value Range Interpretation Code Description [facility] Document(s) ID Date Data Source [id number] 12/10/2019 08:37:00 AM EDT [facility] Name Value Range Interpretation Code Description Data [facility](s) Supporting Document(s) CBC W/AUTOMATED DIFF [facility] COMPLETE BLOOD COUNT Leukocytes [#/volume] in Blood by Automated count 6.9 10^3/uL 4.2 - 1 1.0 [facility] Erythrocytes [#/volume] in Blood by Automated count 4.03 10^6/uL 4. 20 - 5.40 L [facility] Hemoglobin [Mass/volume] in Blood 12.5 g/dL 12.0 - 16.0 [facility] Hematocrit [Volume Fraction] of Blood by Automated count 37.7 % 3 7.0 - 47.0 [facility] Erythrocyte mean corpuscular volume [Entitic volume] by Auto mated count 93.5 fL 81.0 - 101 [facility] Erythrocyte mean corpuscular hemoglobin [Entitic mass] by Automated count 31.0 pg 27.0 - 34.0 [facility] Erythrocyte mean corpuscular hemoglobin concentration [Mass/volume] by Automated count 33.2 g/dL 31.0 - 36.0 [facility] Erythrocyte distribution width [Ratio] by Automated count 12.9 % 11.5 - 14.5 [facility] Platelets [#/volume] in Blood by Automated count 185 10^3/uL 150 - 45 0 [facility] Platelet mean volume [Entitic volume] in Blood by Automated count 10.1 fL 7.4 - 10.4 [facility] Neutrophils/100 leukocytes in Blood by Automated count 66.1 % 37. 0 - 80.0 [facility] Lymphocytes/100 leukocytes in Blood by Manual count 25.3 % 25.0 - 40.0 [facility] Monocytes/100 leukocytes in Blood by Automated count 7.4 % 3.0 - 8.0 [facility] Eosinophils/100 leukocytes in Blood by Automated count 0.3 % 0.0 - 7.0 [facility] Basophils/100 leukocytes in Blood by Automated count 0.6 % 0.0 - 2.5 [facility] %IG 0.3 % 0.0 - 0.0 [facility] %NRBC 0.0 % 0.0 - 0.0 [facility] al Neutrophils [#/volume] in Blood by Automated count 4.55 10^3/uL 2.00 - 6.90 [facility] Lymphocytes [#/volume] in Blood by Automated count 1.74 10^3/uL 0.60 - 3.40 [facility] Monocytes [#/volume] in Blood by Automated count 0.51 10^3/uL 0.00 - 0.90 [facility] Eosinophils [#/volume] in Blood by Automated count 0.02 10^3/uL 0.00 - 0.70 [facility] Basophils [#/volume] in Blood by Automated count 0.04 10^3/uL 0.00 - 0.20 [facility] #IG 0.02 10^3/uL 0.00 - 0.10 [facility] H ospital #NRBC 0.00 10^3/uL 0.00 - 0.00 [facility] ospital MANUAL DIFF NOT INDICATED [facility] RBC MORPH NOT INDICATED [facility] Ho spital ID Date Data Source [id number] 12/10/2019 08:35:00 AM EDT [facility] Name Value Range Interpretation Code Description Data Michelle rce(s) Supporting Document(s) COMPREHENSIVE METABOLIC PANEL [facility] COMPREHENSIVE METABOLIC PANEL Sodium [Moles/volume] in Serum or Plasma 141 mEq/L 134 - 153 [facility] Potassium [Moles/volume] in Serum or Plasma 3.6 mEq/L 3.6 - 5.0 [facility] Chloride [Moles/volume] in Serum or Plasma 107 mEq/L 98 - 107 [facility] Carbon dioxide, total [Moles/volume] in Serum or Plasma 27 MEQ/L 22 - 30 [facility] Glucose [Mass/volume] in Serum or Plasma 89 MG/DL 65 - 110 [facility] BUN 10 MG/DL 7 - 21 [facility] al Creatinine [Mass/volume] in Serum or Plasma 0.4 MG/DL 0.7 - 1.5 L [facility] BUN/CREAT 25 8 - 27 [facility] Protein [Mass/volume] in Serum or Plasma 6.2 G/DL 6.3 - 8.2 L [facility] Albumin [Mass/volume] in Serum or Plasma 4.3 G/DL 3.9 - 5.0 [facility] Globulin [Mass/volume] in Serum by calculation 1.9 GM/DL 2.4 - 3.2 L [facility] A/G RATIO 2.3 0.8 - 2.0 H [facility] Calcium [Mass/volume] in Serum or Plasma 9.0 MG/DL 8.4 - 10.2 [facility] Bilirubin.total [Mass/volume] in Serum or Plasma 0.9 MG/DL 0.2 - 1.3 [facility] Alkaline phosphatase [Enzymatic activity/volume] in Serum or Plasma 52 U/L 38 - 126 [facility] Aspartate aminotransferase [Enzymatic activity/volume] in Serum or Plasma 27 U/L 5 - 40 [facility] Alanine aminotransferase [Enzymatic activity/volume] in Seru m or Plasma 38 U/L 7 - 56 [facility] Anion gap 3 in Serum or Plasma 7.0 mmol/L 8.0 - 16.0 L [facility] AGE 24 yrs [facility] al NON-AA GFR >60 mL/min [facility] ital AFR AMER GFR >60 mL/min [facility] Ho spital Male GFR In terprentation 20-49 [...] >32 mL/min Normal ID Date Data Source [id number] 12/10/2019 11:51:00 AM EDT [facility] Name Value Range Interpretation Code Description Data Michelle rce(s) Supporting Document(s) Magnesium [Mass/volume] in Serum or Plasma 1.9 MG/DL 1.7 - 2.2 [facility] ID Date Data Source [id number] 12/09/2019 10:55:00 PM EDT [facility] [address] [place] [address] PHONE: [phone] FAX: [phone] Name ..............: RITTER NATALIYA Martinez Acct Number ...........................: [id number] ROOM. ............: [facility] MR Number ............................: [id number] Stay type.........: O/P Discharge Date...............: Admit Date .....: 12/09/19 Admit Phys .............................: MULLER HARD Date of ..: 1995 Family Phys ...........................: COLLAZO SCOT Phone..............: [phone] Age .................................:24 Film# ...............:[id number] Sex.................................:F Unsigned transcriptions are preliminary reports and do not represent a medical or legal document EKG [id number] COMPLETE:12/09/19 16:25 [facility] [id number] Please See Scanned Results. Name Value Range Interpretation Code Description Data Michelle rce(s) Supporting Document(s) ID Date Data Source [id number] 12/09/2019 06:23:00 PM EDT [facility] Name Value Range Interpretation Code Description Data Michelle rce(s) Supporting Document(s) BASIC METABOLIC PANEL [facility] BASIC METABOLIC PANEL Sodium [Moles/volume] in Serum or Plasma 137 mEq/L 134 - 153 [facility] Potassium [Moles/volume] in Serum or Plasma 2.7 mEq/L 3.6 - 5.0 LL [facility] CALL/ READ BACK VENEROUS DE [facility] BY: LINDA [facility] DATE/TIME [id number] 8438 [facility] Chloride [Moles/volume] in Serum or Plasma 99 mEq/L 98 - 107 [facility] Carbon dioxide, total [Moles/volume] in Serum or Plasma 24 MEQ/L 22 - 30 [facility] Glucose [Mass/volume] in Serum or Plasma 96 MG/DL 65 - 110 [facility] BUN 9 MG/DL 7 - 21 [facility] Creatinine [Mass/volume] in Serum or Plasma 0.5 MG/DL 0.7 - 1.5 L [facility] BUN/CREAT 18 8 - 27 [facility] Calcium [Mass/volume] in Serum or Plasma 9.0 MG/DL 8.4 - 10.2 [facility] Anion gap 3 in Serum or Plasma 14.0 mmol/L 8.0 - 16.0 [facility] AGE 24 yrs [facility] al AFR AMER GFR >60 mL/min [facility] Ho spital NON-AA GFR >60 mL/min [facility] ital Male GFR Inter prentation 20-49 yrs [...] >32 mL/min Normal ID Date Data Source [id number] 12/09/2019 06:23:00 PM EDT [facility] Name Value Range Interpretation Code Description Data Michelle rce(s) Supporting Document(s) BNP 147 PG/ML 0 - 125 H [facility] al ID Date Data Source [id number] 12/09/2019 05:22:00 PM EDT [facility] Name Value Range Interpretation Code Description Data Michelle rce(s) Supporting Document(s) MONO TEST NEGATIVE NORMAL: NEGATIVE [facility] MONO REENTER NEGATIVE NORMAL: NEGATIVE [facility] { KIT LOT # [id number] ){ KIT EXP DATE 04.16.21 ){ PROCEDURAL CONTROL VALID ) ID Date Data Source [id number] 12/09/2019 02:56:00 PM EDT [facility] Name Value Range Interpretation Code Description Data Michelle rce(s) Supporting Document(s) COMPREHENSIVE METABOLIC PANEL [facility] COMPREHENSIVE METABOLIC PANEL Sodium [Moles/volume] in Serum or Plasma 139 mEq/L 134 - 153 [facility] Potassium [Moles/volume] in Serum or Plasma 2.7 mEq/L 3.6 - 5.0 LL [facility] CALL/ READ BACK CHAYA MCCORMACK ER [facility] BY: LINDA [facility] al DATE/TIME [id number] [facility] Chloride [Moles/volume] in Serum or Plasma 100 mEq/L 98 - 107 [facility] Carbon dioxide, total [Moles/volume] in Serum or Plasma 24 MEQ/L 22 - 30 [facility] Glucose [Mass/volume] in Serum or Plasma 102 MG/DL 65 - 110 [facility] BUN 11 MG/DL 7 - 21 [facility] Creatinine [Mass/volume] in Serum or Plasma 0.6 MG/DL 0.7 - 1.5 L [facility] BUN/CREAT 18 8 - 27 [facility] Protein [Mass/volume] in Serum or Plasma 7.1 G/DL 6.3 - 8.2 [facility] Albumin [Mass/volume] in Serum or Plasma 4.7 G/DL 3.9 - 5.0 [facility] Globulin [Mass/volume] in Serum by calculation 2.4 GM/DL 2.4 - 3.2 [facility] A/G RATIO 2.0 0.8 - 2.0 [facility] Calcium [Mass/volume] in Serum or Plasma 9.5 MG/DL 8.4 - 10.2 [facility] Bilirubin.total [Mass/volume] in Serum or Plasma 1.0 MG/DL 0.2 - 1.3 [facility] Alkaline phosphatase [Enzymatic activity/volume] in Serum or Plasma 64 U/L 38 - 126 [facility] Aspartate aminotransferase [Enzymatic activity/volume] in Serum or Plasma 23 U/L 5 - 40 [facility] Alanine aminotransferase [Enzymatic activity/volume] in Seru m or Plasma 37 U/L 7 - 56 [facility] Anion gap 3 in Serum or Plasma 15.0 mmol/L 8.0 - 16.0 [facility] AGE 24 yrs [facility] al NON-AA GFR >60 mL/min [facility] ital AFR AMER GFR >60 mL/min [facility] Ho spital Male GFR In terprentation 20-49 [...] >32 mL/min Normal ID Date Data Source [id number] 12/09/2019 02:51:00 PM EDT [facility] Name Value Range Interpretation Code Description Data Michelle rce(s) Supporting Document(s) TROPONIN T <0.01 NG/ML 0.00 - 0.10 [facility] ospital TROPONIN T0.1 ng/ml Recommended as the c linical threshold value forTroponin T. ID Date Data Source [id number] 12/09/2019 02:51:00 PM EDT [facility] Name Value Range Interpretation Code Description Data Michelle rce(s) Supporting Document(s) Magnesium [Mass/volume] in Serum or Plasma 1.6 MG/DL 1.7 - 2.2 L [facility] ID Date Data Source [id number] 12/09/2019 02:51:00 PM [facility] Name Value Range Interpretation Code Description Data Michelle rce(s) Supporting Document(s) Lipase [Enzymatic activity/volume] in Serum or Plasma 12 U/L 13 - 60 L [facility] ID Date Data Source [id number] 12/09/2019 02:42:00 PM T [facility] Name Value Range Interpretation Code Description Data Michelle rce(s) Supporting Document(s) HCG SERUM QUAL NEGATIVE NORMAL: NEGATIVE [facility] HCG SERUM QL REENTER NEGATIVE NORMAL: NEGATIVE [facility] { KIT LOT # [id number] ){ KIT EXP DATE 02.27.21 ){ PROCEDURAL CONTROL VALID ) ID Date Data Source [id number] 12/09/2019 02:38:00 PM [facility] Name Value Range Interpretation Code Description Data Michelle rce(s) Supporting Document(s) Prothrombin time (PT) 12.4 SECONDS 11.0 - 15.5 [facility] INR in Platelet poor plasma by Coagulation assay 0.91 0.93 - 1. 23 [facility] \\BLDo\\INR INTERPRETATION\\BLDx\\ Therapeutic range for Coumadin and related oral anticoagulants. - International Normalized Ratio (INR): 2.0 - 3.0 for Venous Thrombosis, Pulmonary Embolus, Tissue heart valves, Acute FL, Atrial Fibrillation, Valvular heart disease and recurrent Systemic Embolism. -International Normalized Ratio (INR): 2.5 - 3.5 for Mechanical Prosthetic valve. ID Date Data Source [id number] 12/09/2019 02:25:00 PM [facility] Name Value Range Interpretation Code Description Data Michelle rce(s) Supporting Document(s) CBC W/AUTOMATED DIFF [facility] COMPLETE BLOOD COUNT Leukocytes [#/volume] in Blood by Automated count 9.9 10^3/uL 4.2 - 1 1.0 [facility] Erythrocytes [#/volume] in Blood by Automated count 4.28 10^6/uL 4. 20 - 5.40 [facility] Hemoglobin [Mass/volume] in Blood 13.3 g/dL 12.0 - 16.0 [facility] Hematocrit [Volume Fraction] of Blood by Automated count 38.8 % 3 7.0 - 47.0 [facility] Erythrocyte mean corpuscular volume [Entitic volume] by Auto mated count 90.7 fL 81.0 - 101 [facility] Erythrocyte mean corpuscular hemoglobin [Entitic mass] by Automated count 31.1 pg 27.0 - 34.0 [facility] Erythrocyte mean corpuscular hemoglobin concentration [Mass/volume] by Automated count 34.3 g/dL 31.0 - 36.0 [facility] Erythrocyte distribution width [Ratio] by Automated count 12.7 % 11.5 - 14.5 [facility] Platelets [#/volume] in Blood by Automated count 282 10^3/uL 150 - 45 0 [facility] Platelet mean volume [Entitic volume] in Blood by Automated count 9.3 fL 7.4 - 10.4 [facility] Neutrophils/100 leukocytes in Blood by Automated count 77.7 % 37. 0 - 80.0 [facility] Lymphocytes/100 leukocytes in Blood by Manual count 15.6 % 25.0 - 40.0 L [facility] Monocytes/100 leukocytes in Blood by Automated count 6.2 % 3.0 - 8.0 [facility] Eosinophils/100 leukocytes in Blood by Automated count 0.0 % 0.0 - 7.0 [facility] Basophils/100 leukocytes in Blood by Automated count 0.2 % 0.0 - 2.5 [facility] %IG 0.3 % 0.0 - 0.0 [facility] %NRBC 0.0 % 0.0 - 0.0 [facility] al Neutrophils [#/volume] in Blood by Automated count 7.68 10^3/uL 2.00 - 6.90 H [facility] Lymphocytes [#/volume] in Blood by Automated count 1.54 10^3/uL 0.60 - 3.40 [facility] Monocytes [#/volume] in Blood by Automated count 0.61 10^3/uL 0.00 - 0.90 [facility] Eosinophils [#/volume] in Blood by Automated count 0.00 10^3/uL 0.00 - 0.70 [facility] Basophils [#/volume] in Blood by Automated count 0.02 10^3/uL 0.00 - 0.20 [facility] #IG 0.03 10^3/uL 0.00 - 0.10 [facility] H ospital #NRBC 0.00 10^3/uL 0.00 - 0.00 [facility] ospital MANUAL DIFF NOT INDICATED [facility] RBC MORPH NOT INDICATED [facility] Ho spital ID Date Data Source [id number] 12/09/2019 04:25:00 PM EDT [facility] Name Value Range Interpretation Code Description Data Michelle rce(s) Supporting Document(s) DRUG SCREEN URINE [facility] URINE DRUG SCREEN Amphetamine [Presence] in Urine by Screen method NEGATIVE NORMAL: N EGATIVE [facility] BARBITURATES NEGATIVE NORMAL: NEGATIVE [facility] BENZO NEGATIVE NORMAL: NEGATIVE [facility] COCAINE NEGATIVE NORMAL: NEGATIVE [facility] Tetrahydrocannabinol [Presence] in Urine PRESUMP POS NORMAL: NEGATIVE [facility] OPIATES NEGATIVE NORMAL: NEGATIVE [facility] Phencyclidine [Presence] in Urine by Screen method NEGATIVE NOR MAL: NEGATIVE [facility] \\BLDo\\URINE DRUG SCR EEN INTERPRETATION\\BLDx\\ THE CUTOFFF LEVELS FOR DETECTION ARE FOLLOWS: AMPHETAMINES 1000 ng/ml BARBITUARATES 200 ng/ml BENZODIAZEPINES 100 ng/ml THC 50 ng/ml PHENCYCLIDINE 25 ng/ml OPIATES 300 ng/ml COCAINE 300 ng/ml ALL POSITIVES ARE CONSIDERED PRESUMPTIVE POSITIVE CONFIRMATION WILL BE PERFORMED AT PHYSICIAN REQUEST. ID Date Data Source [id number] 12/09/2019 01:34:00 PM EDT [facility] Name Value Range Interpretation Code Description Data Michelle rce(s) Supporting Document(s) URINALYSIS [facility] URINALYSIS SOURCE R [facility] COLOR yellow NORMAL: Yellow [facility] ospital CLARITY hazy NORMAL: Clear [facility] sp[facility] Specific gravity of Urine by Test strip 1.020 1.001 - 1.030 [facility] pH 6 5 - 9 [facility] Glucose [Mass/volume] in Urine by Test strip NORM NORMAL: Negat [facility] Bilirubin.total [Presence] in Urine by Test strip NEG NORMAL: Negative [facility] Ketones [Presence] in Urine by Test strip 15 NORMAL: Negative [facility] Protein [Mass/volume] in Urine by Test strip 30 NORMAL: Negat [facility] Nitrite [Presence] in Urine by Test strip NEG NORMAL: Negative [facility] BLOOD 150 NORMAL: Negative [facility] Leukocyte esterase [Presence] in Urine by Test strip 25 DAYLIN L: Negative [facility] Urobilinogen [Mass/volume] in Urine by Test strip 4 less tito n 1.0 mg/dL [facility] MICROSCOPIC See Below [facility] ital WBC 0 - 1 NORMAL: NONE SEEN [facility] Erythrocytes [#/volume] in Urine by Test strip 0 - 1 NORMAL: NON E SEEN [facility] EPITHELIAL MANY NORMAL: NONE SEEN [facility] Bacteria [Presence] in Urine sediment by Light microscopy 1+ SMALL NORMAL: NONE SEEN [facility] Amorphous sediment [Presence] in Urine sediment by Light chelsey roscopy 3+ NORMAL: NONE SEEN [facility] ID Date Data Source [id number] 12/09/2019 03:59:00 AM EDT [facility] [address] [place] [address] RESPIRATORY CARE REPORT ==== ---------NAME------- NUMBER SEX AGE ADMIT DISC. XRAY# F/C ANDREIAARIN Martinez [id number] F 24 12/07/19 12/07/19 [id number] [id number] E/R DATE OF : 1995 M/R# [id number] #: [id number] [facility] LOCATION: EMERGENCY DEPT EKG 46611 COMP LETE:12/08/19 07:50 EWW [id number] PHYSICIAN: TANYA JACOBS Name Value Range Interpretation Code Description Data Michelle rce(s) Supporting Document(s) ID Date Data Source [id number] 12/07/2019 06:58:00 PM EDT [facility] 1 OrderSheet [facility] Emergency Department [address] [place] [address] Phone #: ext- [phone] 12/07/2019 18:51 Patient: [...] Description Priority Entered Acknowledged Initialed 2 OrderSheet [facility] Emergency Department [address] [place] [address] Phone #: ext- [phone] 12/07/2019 18:51 Patient: NATALIYA BEASLEY Sex: F [...] M.D.;EKG 19:12/07/2019 19:13 Alexia Kemp Riccardo R.N. M.D.;Fruit And Vegetable Inspector 19:12/07/2019 19:13 Alexia Kemp(continuous) Leena Martínez R.N., M.D.;[Electronically signed by Mariano Melton R.N. (21:18 12/07/2019)][Electronically signed by Leena Martínez M.D. (22:34 12/07/2019)][Electronically locked by Mariano Melton R.N. (:12/07/2019)] Name Value Range Interpretation Code Description Data Michelle rce(s) Supporting Document(s) ID Date Data Source [id number] 12/07/2019 06:58:00 PM EDT [facility] 1 Medication Reconciliation Report [facility] Emergency Department [address] [place] [address] Phone #: [phone]- [phone] 12/07/2019 18:51 Patient: NATALIYA BEASLEY Sex: F [...] days -- Dispense 20 tablet.Refills: 0. Substitution permitted.[employer] # [address] [place] [address]. .Pepcid 20 mg tablet Take 1 tablet twice a day for 7 days -- Dispense 14 tablet. Refills: 0. Substitutionpermitted.[facility] [address] [place] [address]. . -- Leena Martínez M.D. Name Value Range Interpretation Code Description Data Michelle rce(s) Supporting Document(s) ID Date Data Source [id number] 12/07/2019 06:58:00 PM EDT [facility] 1 Medication Administration Record [facility] Emergency Department [address] [place] [address] Phone #: ext- [phone] 12/07/2019 18:51 [id number] Sex: F : 1995 Age: 24yWeight: 58.9 kgHeight/Length: 63 inBMI: 23ALLERGIES: No Known Drug Allergy Date/Time Medication Administered Medication OrderedStart PHENERGAN [IVPB] Phenergan 25 mg in 50 mL NS,19:14 12/07/2019 Dose: 25 mg IVPB give wide open: 25 mg (NOW x1,Alexia Kemp R.N. Rate: 200 mL/hr over 15 minute(s) HIGH ALERT MEDICATION)---- Dispensed: 50 mL bagStop Site: #1 right hand21:01 12/07/2019Mariano Melton R.N.Start IV NS NS IV 1000 mL Bolus: : Bolus [id number] 12/07/2019 Dose: IV Fluids mL (X1)Alexia Kemp [...] rce(s) Supporting Document(s) ID Date Data Source [id number] 12/07/2019 06:58:00 PM EDT [facility] 1 General Instructions [facility] Emergency Department [address] [place] [address] Phone #: ext- [phone] 12/07/2019 18:51 Patient: NATALIYA BEASLEY Sex: F [...] days -- Dispense 20 tablet.Refills: 0. Substitution permitted.[facility] [place] [address]. .Pepcid 20 mg tablet Take 1 tablet twice a day for 7 days -- Dispense 14 tablet. Refills: 0. Substitutionpermitted.[facility] [place] [address]. .Follow-up:Return to the emergency department as needed. [...] to plan of care. 2 General Instructions [facility] Emergency Department [address] [place] [address] Phone #: ext- [phone] 12/07/2019 18:51 Patient: [...] and water are not available, use alcohol-based medical staff coordinator to keep from spreading the infection to [...] follow the diet below: 3 General Instructions [facility] Emergency Department [address] [place] [address] Phone #: ext- [phone] 12/07/2019 18:51 Patient: [...] higher, or as directed 4 General Instructions [facility] Emergency Department [address] [place] [address] Phone #: ext- [phone] 12/07/2019 18:51 Patient: NATALIYA BEASLEY Sex: F : 1995 Age: 24y Yellow color of the eyes or skin [id number] [employer] [place] [address]. All rights reserved. This information is not intended as asubstitute for professional medical care. Always follow your healthcare professional's instructions. You have been given the following additional information: Vomiting (Adult)(Electronically signed by Leena Martínez M.D. 12/07/2019 22:34) Name Value Range Interpretation Code Description Data Michelle rce(s) Supporting Document(s) ID Date Data Source [id number] 12/07/2019 06:58:00 PM EDT [facility] 1 Clinical Report - Nurses [facility] Emergency Department [address] [place] [address] Phone #: ext- [phone] 12/07/2019 18:51 Patient: [...] Last oral intake by patient was (9pm).Treatment [facility]:None.SEPSIS SCREEN: SIRS Screen negative. Sepsis Screen negative. No suspected or confirmed signs ofinfection present. --18:57 12/07/19 Carmela Ocampo RN18:52 12/07/19. BP: 137/89. MAP: 105. HR: 100. RR: 14. O2 saturation: 100%. Temp: 98 F. Pain levelnow: 9/10. --18:57 12/07/19 Carmela Ocmapo RN.Weight: 58.9 kg stated. Height/Length: 63 inches [...] no deficiencies. 2 Clinical Report - Nurses [facility] Emergency Department [address] [place] [address] Phone #: ext- [phone] 12/07/2019 18:51 Patient: [...] Kemp R.N. 3 Clinical Report - Nurses [facility] Emergency Department [address] [place] [address] Phone #: ext- [phone] 12/07/2019 18:51 --------- [...] R.N.Care transferred and report given (Dino). --19:12/07/19 Alexia Kemp R.N.Reassessment acuity: LEVEL 3.Rounding: Pain: assessed [...] O2 saturation: 97%. Pain level now: 12/25.--:12/07/19 Maraino Melton R.N.19:12/07/2019 Phenergan IVPB via IV site #1 Response: no adverse reaction pain is improving.Symptoms have improved the patient feels better. --19:12/07/19 Mariano Melton R.N.19:16 12/07/19. BP: 128/82. MAP: 97. HR: 77. RR: 25. O2 saturation: 96%. --19:26 12/07/19 Graciela Shields ER Idwl056:00 12/07/2019 IV Fluids IV NS via IV site #1 Discontinued: bag #1 completed. Total amount infused:1000 mL. IV patency established. IV site checked: no pain, redness, or swelling. IV flushed thoroughly.--20:19 12/07/19 Mariano Melton R.N. 4 Clinical Report - Nurses [facility] Emergency Department [address] [place] [address] Phone #: ext- [phone] 12/07/2019 18:51 Patient: [...] Melton R.N. 5 Clinical Report - Nurses [facility] Emergency Department [address] [place] [address] Phone #: ext- [phone] 12/07/2019 18:51 Patient: [...] parent verbalized understanding. Written instructions provided in Trinidadian. The patient was discharged by the physician. [...] rce(s) Supporting Document(s) ID Date Data Source [id number] 12/07/2019 06:58:00 PM EDT [facility] 1 Clinical Report - Physicians/Mid Levels [facility] Emergency Department [address] [place] [address] Phone #: ext- [phone] 12/07/2019 18:51 Patient: [...] allergies. 2 Clinical Report - Physicians/Mid Levels [facility] Emergency Depa rtment [address] [place] [address] Phone #: ext- [phone] 12/07/2019 18:51 Patient: NATALIYA BEASLEY Sex: F [...] making process. ETOH: (ANGELY: 12/07/2019 19:00) ( [facility] 12/07/2019 19:44) Final results Test Result Flag Units (Reference) ALCOHOL ETHYL BLOOD CORRECTED REPORT ALCOHOL <10.0 MG/DL ALCOHOL % 0.00 % (0.00 - 0.01) *FOR MEDICAL PURPOSES ONLY* FOLLOWING RESULTS REPORTED IN ERROR ALCOHOL % { CORRECT CBC w Diff: (ANGELY: 12/07/2019 19:00) ( [facility] 12/07/2019 19:23) Final results Test Result Flag [...] 450) 3 Clinical Report - Physicians/Mid Levels [facility] Emergency Department [address] [place] [address] Phone #: ext- [phone] 12/07/2019 18:51 Patient: [...] Male GFR Interprentation 20-49 yrs >60 mL/min Hrmbyy84-62 yrs >56 mL/min Normal 60-69 yrs >49 mL/min Normal 70-79yrs>42 mL/min Normal 80 and above >35 mL/min Normal Female GFRInterpretation 20-39 yrs >60 mL/min Normal 40-49 yrs >58 mL/minNormal 50-59 yrs >51 mL/min Normal 60-69 yrs >45 mL/min Yloyco19-54 yrs >39 mL/min Normal 80 and above >32 mL/min NormalLipase: (ANGELY: 12/07/2019 19:00) ( MsgRcvd 12/07/2019 19:44) Final results Test Result Flag Units (Reference) LIPASE 12 L U/L (13 - 60)Beta-HCG, Qual Serum: (ANGELY: 12/07/2019 19:00) ( MsgRcvd 12/07/2019 19:39) Final results Test Result Flag Units (Reference) HCG SERUM QUAL NEGATIVE (NORMAL: NEGAT 4 Clinical Report - Physicians/Mid Levels [facility] Emergency Department [address] [place] [address] Phone #: ext- [phone] 12/07/2019 18:51 Patient: NATALIYA BEASLEY Sex: F : 1995 Age: 24y HCG SERUM QL REENTER NEGATIVE (NORMAL: NEGAT { KIT LOT # [id number] ){ KIT EXP DATE 02.27.21 ){ PROCEDURAL [...] USE). 5 Clinical Report - Physicians/Mid Levels [facility] Emergency Department [address] [place] [address] Phone #: ext- [phone] 12/07/2019 18:51 Patient: [...] Dispense 20 tablet. Refills: 0. Substitution permitted. [facility] [place] [address]. . Pepcid 20 mg tablet Take 1 tablet twice a day for 7 days -- Dispense 14 tablet. Refills: 0. Substitution permitted. [facility] [address] [place] [address]. . Follow- up: Return to the emergency [...] rce(s) Supporting Document(s) ID Date Data Source [id number] 12/07/2019 07:44:00 PM EDT [facility] Name Value Range Interpretation Code Description Data Michelle rce(s) Supporting Document(s) Magnesium [Mass/volume] in Serum or Plasma 1.3 MG/DL 1.7 - 2.2 L [facility] ID Date Data Source [id number] [facility] Name Value Range Interpretation Code Description Data Michelle rce(s) Supporting Document(s) Lipase [Enzymatic activity/volume] in Serum or Plasma 12 U/L 13 - 60 L [facility] ID Date Data Source [id number] 12/07/2019 07:43:00 PM [facility] Name Value Range Interpretation Code Description Data Michelle rce(s) Supporting Document(s) ALCOHOL ETHYL BLOOD [facility] CORRECTE D REPORT Ethanol [Moles/volume] in Blood <10.0 MG/DL [facility] ALCOHOL % 0.00 % 0.00 - 0.01 [facility] Hosp ital *FOR MEDICAL PURPOSES ONLY * FOLLOWING RESULTS REPORTED IN ERROR ALCOHOL % { CORRECT ID Date Data Source [id number] 12/07/2019 07:43:00 PM EDT [facility] Name Value Range Interpretation Code Description Data Michelle rce(s) Supporting Document(s) COMPREHENSIVE METABOLIC PANEL [facility] COMPREHENSIVE METABOLIC PANEL Sodium [Moles/volume] in Serum or Plasma 140 mEq/L 134 - 153 [facility] Potassium [Moles/volume] in Serum or Plasma 4.4 mEq/L 3.6 - 5.0 [facility] Chloride [Moles/volume] in Serum or Plasma 94 mEq/L 98 - 107 L [facility] Carbon dioxide, total [Moles/volume] in Serum or Plasma 23 MEQ/L 22 - 30 [facility] Glucose [Mass/volume] in Serum or Plasma 127 MG/DL 65 - 110 H [facility] BUN 12 MG/DL 7 - 21 [facility] Creatinine [Mass/volume] in Serum or Plasma 0.6 MG/DL 0.7 - 1.5 L [facility] BUN/CREAT 20 8 - 27 [facility] Protein [Mass/volume] in Serum or Plasma 8.1 G/DL 6.3 - 8.2 [facility] Albumin [Mass/volume] in Serum or Plasma 5.1 G/DL 3.9 - 5.0 H [facility] Globulin [Mass/volume] in Serum by calculation 3.0 GM/DL 2.4 - 3.2 [facility] A/G RATIO 1.7 0.8 - 2.0 [facility] Calcium [Mass/volume] in Serum or Plasma 10.8 MG/DL 8.4 - 10.2 H [facility] Bilirubin.total [Mass/volume] in Serum or Plasma 0.8 MG/DL 0.2 - 1.3 [facility] Alkaline phosphatase [Enzymatic activity/volume] in Serum or Plasma 82 U/L 38 - 126 [facility] Aspartate aminotransferase [Enzymatic activity/volume] in Serum or Plasma 22 U/L 5 - 40 [facility] Alanine aminotransferase [Enzymatic activity/volume] in Seru m or Plasma 26 U/L 7 - 56 [facility] Anion gap 3 in Serum or Plasma 23.0 mmol/L 8.0 - 16.0 H [facility] AGE 24 yrs [facility] NON-AA GFR >60 mL/min [facility] ital AFR AMER GFR >60 mL/min [facility] spital Male GFR In terprentation 20-49 [...] >32 mL/min Normal ID Date Data Source [id number] 12/07/2019 07:42:00 PM EDT [facility] Name Value Range Interpretation Code Description Data Michelle rce(s) Supporting Document(s) TROPONIN T <0.01 NG/ML 0.00 - 0.10 [facility] ospital TROPONIN T0.1 ng/ml Recommended as the c linical threshold value forTroponin T. ID Date Data Source [id number] 12/07/2019 07:38:00 PM EDT [facility] Name Value Range Interpretation Code Description Data Michelle rce(s) Supporting Document(s) HCG SERUM QUAL NEGATIVE NORMAL: NEGATIVE [facility] HCG SERUM QL REENTER NEGATIVE NORMAL: NEGATIVE [facility] { KIT LOT # [id number] ){ KIT EXP DATE 02.27.21 ){ PROCEDURAL CONTROL VALID ) ID Date Data Source [id number] 12/07/2019 07:23:00 PM EDT [facility] Name Value Range Interpretation Code Description Data Michelle rce(s) Supporting Document(s) CBC W/AUTOMATED DIFF [facility] COMPLETE BLOOD COUNT Leukocytes [#/volume] in Blood by Automated count 14.8 10^3/uL 4.2 - 11.0 H [facility] Erythrocytes [#/volume] in Blood by Automated count 4.77 10^6/uL 4. 20 - 5.40 [facility] Hemoglobin [Mass/volume] in Blood 15.0 g/dL 12.0 - 16.0 [facility] Hematocrit [Volume Fraction] of Blood by Automated count 43.9 % 3 7.0 - 47.0 [facility] Erythrocyte mean corpuscular volume [Entitic volume] by Auto mated count 92.0 fL 81.0 - 101 [facility] Erythrocyte mean corpuscular hemoglobin [Entitic mass] by Automated count 31.4 pg 27.0 - 34.0 [facility] Erythrocyte mean corpuscular hemoglobin concentration [Mass/volume] by Automated count 34.2 g/dL 31.0 - 36.0 [facility] Erythrocyte distribution width [Ratio] by Automated count 13.1 % 11.5 - 14.5 [facility] Platelets [#/volume] in Blood by Automated count 387 10^3/uL 150 - 45 0 [facility] Platelet mean volume [Entitic volume] in Blood by Automated count 10.0 fL 7.4 - 10.4 [facility] Neutrophils/100 leukocytes in Blood by Automated count 88.4 % 37. 0 - 80.0 H [facility] Lymphocytes/100 leukocytes in Blood by Manual count 8.9 % 25.0 - 40.0 L [facility] Monocytes/100 leukocytes in Blood by Automated count 2.3 % 3.0 - 8.0 L [facility] Eosinophils/100 leukocytes in Blood by Automated count 0.0 % 0.0 - 7.0 [facility] Basophils/100 leukocytes in Blood by Automated count 0.1 % 0.0 - 2.5 [facility] %IG 0.3 % 0.0 - 0.0 H [facility] al %NRBC 0.0 % 0.0 - 0.0 [facility] al Neutrophils [#/volume] in Blood by Automated count 13.06 10^3/uL 2. 00 - 6.90 H [facility] Lymphocytes [#/volume] in Blood by Automated count 1.32 10^3/uL 0.60 - 3.40 [facility] Monocytes [#/volume] in Blood by Automated count 0.34 10^3/uL 0.00 - 0.90 [facility] Eosinophils [#/volume] in Blood by Automated count 0.00 10^3/uL 0.00 - 0.70 [facility] Basophils [#/volume] in Blood by Automated count 0.02 10^3/uL 0.00 - 0.20 [facility] #IG 0.04 10^3/uL 0.00 - 0.10 [facility] H ospital #NRBC 0.00 10^3/uL 0.00 - 0.00 [facility] MANUAL DIFF NOT INDICATED [facility] RBC MORPH NOT INDICATED [facility] spital ID Date Data Source [id number] 11/26/2019 12:29:00 PM EDT [facility] [address] [place] [address] RESPIRATORY CARE REPORT ==== ---------NAME------- NUMBER SEX AGE ADMIT DISC. XRAY# F/C TYPERITTDE Martinez [id number] F 24 11/24/19 [id number] O/P DATE OF : 1995 M/R# [id number] #: [id number] [id number] LOCATION: EMERGENCY DEPT EKG 70666 COMP LETE:11/26/19 07:34 [place] [id number] PHYSICIAN: CLAUDIO Name Value Range Interpretation Code Description Data Michelle rce(s) Supporting Document(s) ID Date Data Source [id number] 11/26/2019 07:54:00 AM EDT [facility] Name Value Range Interpretation Code Description Data Michelle rce(s) Supporting Document(s) BASIC METABOLIC PANEL [facility] BASIC METABOLIC PANEL Sodium [Moles/volume] in Serum or Plasma 135 mEq/L 134 - 153 [facility] Potassium [Moles/volume] in Serum or Plasma 4.0 mEq/L 3.6 - 5.0 [facility] Chloride [Moles/volume] in Serum or Plasma 102 mEq/L 98 - 107 [facility] Carbon dioxide, total [Moles/volume] in Serum or Plasma 26 MEQ/L 22 - 30 [facility] Glucose [Mass/volume] in Serum or Plasma 89 MG/DL 65 - 110 [facility] BUN 5 MG/DL 7 - 21 L [facility] al Creatinine [Mass/volume] in Serum or Plasma 0.5 MG/DL 0.7 - 1.5 L [facility] BUN/CREAT 10 8 - 27 [facility] al Calcium [Mass/volume] in Serum or Plasma 8.7 MG/DL 8.4 - 10.2 [facility] Anion gap 3 in Serum or Plasma 7.0 mmol/L 8.0 - 16.0 L [facility] AGE 24 yrs [facility] al AFR AMER GFR >60 mL/min [facility] Ho spital NON-AA GFR >60 mL/min [facility] ital Male GFR Inter prentation 20-49 yrs [...] >32 mL/min Normal ID Date Data Source [id number] 11/26/2019 07:28:00 AM EDT [facility] Name Value Range Interpretation Code Description Data Michelle rce(s) Supporting Document(s) CBC NO DIFF [facility] ital COMPLETE BLOOD COUNT Leukocytes [#/volume] in Blood by Automated count 9.9 10^3/uL 4.2 - 1 1.0 [facility] Erythrocytes [#/volume] in Blood by Automated count 4.08 10^6/uL 4. 20 - 5.40 L [facility] Hemoglobin [Mass/volume] in Blood 12.7 g/dL 12.0 - 16.0 [facility] Hematocrit [Volume Fraction] of Blood by Automated count 38.0 % 3 7.0 - 47.0 [facility] Erythrocyte mean corpuscular volume [Entitic volume] by Auto mated count 93.1 fL 81.0 - 101 [facility] Erythrocyte mean corpuscular hemoglobin [Entitic mass] by Automated count 31.1 pg 27.0 - 34.0 [facility] Erythrocyte mean corpuscular hemoglobin concentration [Mass/volume] by Automated count 33.4 g/dL 31.0 - 36.0 [facility] Erythrocyte distribution width [Ratio] by Automated count 12.2 % 11.5 - 14.5 [facility] Platelets [#/volume] in Blood by Automated count 196 10^3/uL 150 - 45 0 [facility] Platelet mean volume [Entitic volume] in Blood by Automated count 10.3 fL 7.4 - 10.4 [facility] ID Date Data Source [id number] 11/26/2019 02:54:00 AM EDT [facility] Name Value Range Interpretation Code Description Data Michelle rce(s) Supporting Document(s) BASIC METABOLIC PANEL [facility] BASIC METABOLIC PANEL Sodium [Moles/volume] in Serum or Plasma 134 mEq/L 134 - 153 [facility] Potassium [Moles/volume] in Serum or Plasma 3.8 mEq/L 3.6 - 5.0 [facility] Chloride [Moles/volume] in Serum or Plasma 100 mEq/L 98 - 107 [facility] Carbon dioxide, total [Moles/volume] in Serum or Plasma 27 MEQ/L 22 - 30 [facility] Glucose [Mass/volume] in Serum or Plasma 82 MG/DL 65 - 110 [facility] BUN 7 MG/DL 7 - 21 [facility] Creatinine [Mass/volume] in Serum or Plasma 0.5 MG/DL 0.7 - 1.5 L [facility] BUN/CREAT 14 8 - 27 [facility] Calcium [Mass/volume] in Serum or Plasma 8.6 MG/DL 8.4 - 10.2 [facility] Anion gap 3 in Serum or Plasma 7.0 mmol/L 8.0 - 16.0 L [facility] AGE 24 yrs [facility] al AFR AMER GFR >60 mL/min [facility] Ho spital NON-AA GFR >60 mL/min [facility] ital Male GFR Inter prentation 20-49 yrs [...] >32 mL/min Normal ID Date Data Source [id number] 11/25/2019 10:11:00 PM EDT [facility] Name Value Range Interpretation Code Description Data Michelle rce(s) Supporting Document(s) BASIC METABOLIC PANEL [facility] BASIC METABOLIC PANEL Sodium [Moles/volume] in Serum or Plasma 136 mEq/L 134 - 153 [facility] Potassium [Moles/volume] in Serum or Plasma 3.5 mEq/L 3.6 - 5.0 L [facility] Chloride [Moles/volume] in Serum or Plasma 99 mEq/L 98 - 107 [facility] Carbon dioxide, total [Moles/volume] in Serum or Plasma 27 MEQ/L 22 - 30 [facility] Glucose [Mass/volume] in Serum or Plasma 75 MG/DL 65 - 110 [facility] BUN 9 MG/DL 7 - 21 [facility] al Creatinine [Mass/volume] in Serum or Plasma 0.5 MG/DL 0.7 - 1.5 L [facility] BUN/CREAT 18 8 - 27 [facility] Calcium [Mass/volume] in Serum or Plasma 8.8 MG/DL 8.4 - 10.2 [facility] Anion gap 3 in Serum or Plasma 10.0 mmol/L 8.0 - 16.0 [facility] AGE 24 yrs [facility] al AFR AMER GFR >60 mL/min [facility] Ho spital NON-AA GFR >60 mL/min [facility] ital Male GFR Inter prentation 20-49 yrs [...] >32 mL/min Normal ID Date Data Source [id number] 11/25/2019 06:07:00 PM EDT [facility] Name Value Range Interpretation Code Description Data Michelle rce(s) Supporting Document(s) BASIC METABOLIC PANEL [facility] BASIC METABOLIC PANEL Sodium [Moles/volume] in Serum or Plasma 132 mEq/L 134 - 153 L [facility] Potassium [Moles/volume] in Serum or Plasma 3.2 mEq/L 3.6 - 5.0 L [facility] Chloride [Moles/volume] in Serum or Plasma 94 mEq/L 98 - 107 L [facility] Carbon dioxide, total [Moles/volume] in Serum or Plasma 28 MEQ/L 22 - 30 [facility] Glucose [Mass/volume] in Serum or Plasma 86 MG/DL 65 - 110 [facility] BUN 11 MG/DL 7 - 21 [facility] al Creatinine [Mass/volume] in Serum or Plasma 0.6 MG/DL 0.7 - 1.5 L [facility] BUN/CREAT 18 8 - 27 [facility] al Calcium [Mass/volume] in Serum or Plasma 8.7 MG/DL 8.4 - 10.2 [facility] Anion gap 3 in Serum or Plasma 10.0 mmol/L 8.0 - 16.0 [facility]GE 24 [facility] GFR >60 mL/min [facility] Ho spital NON-AA GFR >60 mL/min [facility] ital Male GFR Inter prentation 20-49 [...] >32 mL/min Normal ID Date Data Source [id number] 11/25/2019 01:04:00 PM EDT [facility] [address] [place] [address] RESPIRATORY CARE REPORT ==== ---------NAME------- NUMBER SEX AGE ADMIT DISC. XRAY# F/C TYPERIARIN Martinez [id number] F 24 11/24/19 [id number] O/P DATE OF : 1995 M/R# [id number] #: [id number] [id number] LOCATION: EMERGENCY DEPT EKG 01969 COMP LETE:11/25/19 06:00 PAD [id number] PHYSICIAN: CLAUDIO Name Value Range Interpretation Code Description Data Michelle rce(s) Supporting Document(s) ID Date Data Source [id number] 11/25/2019 01:35:00 PM EDT [facility] Name Value Range Interpretation Code Description Data Michelle rce(s) Supporting Document(s) BASIC METABOLIC PANEL [facility] BASIC METABOLIC PANEL Sodium [Moles/volume] in Serum or Plasma 133 mEq/L 134 - 153 L [facility] Potassium [Moles/volume] in Serum or Plasma 3.3 mEq/L 3.6 - 5.0 L [facility] Chloride [Moles/volume] in Serum or Plasma 93 mEq/L 98 - 107 L [facility] Carbon dioxide, total [Moles/volume] in Serum or Plasma 32 MEQ/L 22 - 30 H [facility] Glucose [Mass/volume] in Serum or Plasma 84 MG/DL 65 - 110 [facility] BUN 12 MG/DL 7 - 21 [facility] [facility] Creatinine [Mass/volume] in Serum or Plasma 0.6 MG/DL 0.7 - 1.5 L [facility] BUN/CREAT 20 8 - 27 [facility] Calcium [Mass/volume] in Serum or Plasma 8.9 MG/DL 8.4 - 10.2 [facility] Anion gap 3 in Serum or Plasma 8.0 mmol/L 8.0 - 16.0 [facility] AGE [address] [facility] Hospit al AFR AMER GFR >60 mL/min [facility] Ho spital NON-AA GFR >60 mL/min [facility] Hosp ital Male GFR Inter prentation 20-49 [...] >32 mL/min Normal ID Date Data Source [id number] 11/25/2019 10:02:00 AM EDT [facility] [address] [place] [address] PHONE: [phone] FAX: [phone] Name .................. : RITTER NATALIYA Martinez Acct Number.................. : [id number] ROOM. ................. : TR-04 Number ................... : [id number] Stay type ............. : E/R Discharge Date......... ... : Admit Date ......... : 11/24/19 Admit Phys .................... : PAUL Vazquez Date of ....... : 1995 Family Phys ................... : ZAY LÓPEZ Phone .................. : [phone] Age ................................ : 24 Film# .................. .:[id number] Sex ................................. : F Unsigned transcriptions are preliminary reports and do not represent a medical or legal document CT ABD & PELVIS W/ IV ONLY [id number] COMPLETE:11/24/19 18:06 RLB [id number] Reason(s): Abdominal Pain CT OF THE ABDOMEN [...] and Signed By Page 1 of 2 [facility] [address] [place] [address] PHONE: [phone] FAX: [phone] Name .................. : RITTER NATALIYA Martinez Acct Number.................. : [id number] ROOM. ................. : TR-04 MR Number ................... : [id number] Stay type ............. : E/R Discharge Date......... ... : Admit Date ......... : 11/24/19 Admit Phys .................... : AMERNATH L Date of ....... : 1995 Family Phys ................... : COLLAZO [employer] Phone .................. : [phone] Age ................................ : 24 Film# .................. .:[id number] Sex ................................. : F Unsigned transcriptions are preliminary reports and do not represent a medical or legal document CT ABD & PELVIS W/ IV ONLY [id number] COMPLETE:11/24/19 18:06 RLB [id number] Reason(s): Abdominal Pain Genaro Lozoya M.D. , 11/25/19 10:02, [place] Transcribe Initials: FAHAD , Transcribe Date: 11/24/19 20:06, Dictation Date: Copy for: EMERGENCY DEPT via mode Copy for: 710 MED REC Page 2 of 2 Name Value Range Interpretation Code Description Data Michelle rce(s) Supporting Document(s) ID Date Data Source [id number] 11/25/2019 06:53:00 AM EDT [facility] Name Value Range Interpretation Code Description Data Michelle rce(s) Supporting Document(s) Magnesium [Mass/volume] in Serum or Plasma 2.5 MG/DL 1.7 - 2.2 H [facility] ID Date Data Source [id number] 11/25/2019 06:53:00 AM EDT [facility] Name Value Range Interpretation Code Description Data Michelle rce(s) Supporting Document(s) COMPREHENSIVE METABOLIC PANEL [facility] COMPREHENSIVE METABOLIC PANEL Sodium [Moles/volume] in Serum or Plasma 131 mEq/L 134 - 153 L [facility] Potassium [Moles/volume] in Serum or Plasma 3.5 mEq/L 3.6 - 5.0 L [facility] Chloride [Moles/volume] in Serum or Plasma 86 mEq/L 98 - 107 L [facility] Carbon dioxide, total [Moles/volume] in Serum or Plasma 35 MEQ/L 22 - 30 H [facility] Glucose [Mass/volume] in Serum or Plasma 85 MG/DL 65 - 110 [facility] BUN 16 MG/DL 7 - 21 [facility] Creatinine [Mass/volume] in Serum or Plasma 0.6 MG/DL 0.7 - 1.5 L [facility] BUN/CREAT 27 8 - 27 [facility] Protein [Mass/volume] in Serum or Plasma 6.4 G/DL 6.3 - 8.2 [facility] Albumin [Mass/volume] in Serum or Plasma 4.3 G/DL 3.9 - 5.0 [facility] Globulin [Mass/volume] in Serum by calculation 2.1 GM/DL 2.4 - 3.2 L [facility] A/G RATIO 2.0 0.8 - 2.0 [facility] Calcium [Mass/volume] in Serum or Plasma 9.2 MG/DL 8.4 - 10.2 [facility] Bilirubin.total [Mass/volume] in Serum or Plasma 1.1 MG/DL 0.2 - 1.3 [facility] Alkaline phosphatase [Enzymatic activity/volume] in Serum or Plasma 70 U/L 38 - 126 [facility] Aspartate aminotransferase [Enzymatic activity/volume] in Serum or Plasma 26 U/L 5 - 40 [facility] Alanine aminotransferase [Enzymatic activity/volume] in Seru m or Plasma 29 U/L 7 - 56 [facility] Anion gap 3 in Serum or Plasma 10.0 mmol/L 8.0 - 16.0 [facility] AGE 24 yrs [facility] NON-AA GFR >60 mL/min [facility] Hosp ital AFR AMER GFR >60 mL/min [facility] Ho spital Male GFR In terprentation 20-49 [...] >32 mL/min Normal ID Date Data Source [id number] 11/25/2019 06:24:00 AM EDT [facility] Name Value Range Interpretation Code Description Data Michelle rce(s) Supporting Document(s) CBC W/AUTOMATED DIFF [facility] COMPLETE BLOOD COUNT Leukocytes [#/volume] in Blood by Automated count 10.0 10^3/uL 4.2 - 11.0 [facility] Erythrocytes [#/volume] in Blood by Automated count 4.70 10^6/uL 4. 20 - 5.40 [facility] Hemoglobin [Mass/volume] in Blood 14.7 g/dL 12.0 - 16.0 [facility] Hematocrit [Volume Fraction] of Blood by Automated count 41.5 % 3 7.0 - 47.0 [facility] Erythrocyte mean corpuscular volume [Entitic volume] by Auto mated count 88.3 fL 81.0 - 101 [facility] Erythrocyte mean corpuscular hemoglobin [Entitic mass] by Automated count 31.3 pg 27.0 - 34.0 [facility] Erythrocyte mean corpuscular hemoglobin concentration [Mass/volume] by Automated count 35.4 g/dL 31.0 - 36.0 [facility] Erythrocyte distribution width [Ratio] by Automated count 12.0 % 11.5 - 14.5 [facility] Platelets [#/volume] in Blood by Automated count 241 10^3/uL 150 - 45 0 [facility] Platelet mean volume [Entitic volume] in Blood by Automated count 10.6 fL 7.4 - 10.4 H [facility] Neutrophils/100 leukocytes in Blood by Automated count 65.5 % 37. 0 - 80.0 [facility] Lymphocytes/100 leukocytes in Blood by Manual count 23.7 % 25.0 - 40.0 L [facility] Monocytes/100 leukocytes in Blood by Automated count 9.3 % 3.0 - 8.0 H [facility] Eosinophils/100 leukocytes in Blood by Automated count 0.7 % 0.0 - 7.0 [facility] Basophils/100 leukocytes in Blood by Automated count 0.2 % 0.0 - 2.5 [facility] %IG 0.6 % 0.0 - 0.[address] [facility] Hospit al %NRBC 0.0 % 0.0 - 0.0 [facility] al Neutrophils [#/volume] in Blood by Automated count 6.51 10^3/uL 2.00 - 6.90 [facility] Lymphocytes [#/volume] in Blood by Automated count 2.36 10^3/uL 0.60 - 3.40 [facility] Monocytes [#/volume] in Blood by Automated count 0.93 10^3/uL 0.00 - 0.90 H [facility] Eosinophils [#/volume] in Blood by Automated count 0.07 10^3/uL 0.00 - 0.70 [facility] Basophils [#/volume] in Blood by Automated count 0.02 10^3/uL 0.00 - 0.20 [facility] #IG 0.06 10^3/uL 0.00 - 0.10 [facility] ospital #NRBC 0.00 10^3/uL 0.00 - 0.00 [facility] ospital MANUAL DIFF NOT INDICATED [facility] RBC MORPH NOT INDICATED [facility] spital ID Date Data Source [id number] 11/25/2019 01:45:00 AM EDT [facility] Name Value Range Interpretation Code Description Data Michelle rce(s) Supporting Document(s) BASIC METABOLIC PANEL [facility] BASIC METABOLIC PANEL Sodium [Moles/volume] in Serum or Plasma 127 mEq/L 134 - 153 L [facility] Potassium [Moles/volume] in Serum or Plasma 2.4 mEq/L 3.6 - 5.0 LL [facility] CALL/ READ BACK JASON [facility] BY: LSA [facility] DATE/TIME 11/25/2019 0145 AM [facility] Chloride [Moles/volume] in Serum or Plasma 80 mEq/L 98 - 107 L [facility] Carbon dioxide, total [Moles/volume] in Serum or Plasma 36 MEQ/L 22 - 30 H [facility] Glucose [Mass/volume] in Serum or Plasma 105 MG/DL 65 - 110 [facility] BUN 18 MG/DL 7 - 21 [facility] Creatinine [Mass/volume] in Serum or Plasma 0.7 MG/DL 0.7 - 1.5 [facility] BUN/CREAT 26 8 - 27 [facility] Calcium [Mass/volume] in Serum or Plasma 9.2 MG/DL 8.4 - 10.2 [facility] Anion gap 3 in Serum or Plasma 11.0 mmol/L 8.0 - 16.0 [facility] AGE 24 yrs [facility] AFR AMER GFR >60 mL/min [facility] Ho spital NON-AA GFR >60 mL/min [facility] ital Male GFR Inter prentation 20-49 yrs [...] >32 mL/min Normal ID Date Data Source [id number] 11/24/2019 05:12:00 PM EDT [facility] 1 OrderSheet [facility] Emergency Department [address] [place] [address] Phone #: ext- [phone] 11/24/2019 16:57 Patient: NATALIYA BEASLEY [facility]#: [id number] Sex: F : 1995 Age: 24yWEIGHT:58.9 kg [...] STAT 17:15 11/24/2019 17:17 Devika, 2 OrderSheet [facility] Emergency Department [address] [place] [address] Phone #: ext- [phone] 11/24/2019 16:57 Patient: [...] rce(s) Supporting Document(s) ID Date Data Source [id number] 11/24/2019 05:12:00 PM EDT [facility] 1 Medication Reconciliation Report [facility] Emergency Department [address] [place] [address] Phone #: ext- [phone] 11/24/2019 16:57 Patient: [...] rce(s) Supporting Document(s) ID Date Data Source [id number] 11/24/2019 05:12:00 PM EDT [facility] 1 Medication Administration Record [facility] Emergency Department [address] [place] [address] Phone #: ext- [phone] 11/24/2019 16:57 Patient: NATALIYA BEASLEY Sex: F : 1995 Age: 24yWeight: 58.9 kgHeight/Length: 63 inBMI: 23ALLERGIES: None Date/Time Medication Administered Medication OrderedStart NS [IV] NS IV : Bolus 1000 mL, then 72686:29 11/24/2019 Dose: IV Fluids mL/hr (NOW x1); [...] cruz R.N.Start KCL [IVPB] KCl IVPB 10 meq/708nE14:29 11/24/2019 Dose: 10 meq IVPBSorbAureliano hyde R.N. [...] rce(s) Supporting Document(s) ID Date Data Source [id number] 11/24/2019 05:12:00 PM EDT [facility] 1 General Instructions [facility] Emergency Department [address] [place] [address] Phone #: ext- [phone] 11/24/2019 16:57 Patient: NATALIYA BEASLEY Sex: F [...] and water are not available, use alcohol-based medical staff coordinator to keep from spreading the infection to [...] disease, or after a 2 General Instructions [facility] Emergency Department [address] [place] [address] Phone #: ext- [phone] 11/24/2019 16:57 Patient: [...] coffee grounds Swollen belly 3 General Instructions [facility] Emergency Department [address] [place] [address] Phone #: ext- [phone] 11/24/2019 16:57 Patient: [...] color of the eyes or skin [employer]. [address] [place] [address], [place] [address]. All rights reserved. This information is not [...] can also cause gastritis. 4 General Instructions [facility] Emergency Department [address] [place] [address] Phone #: ext- [phone] 11/24/2019 16:57 Patient: [...] (can't keep down liquids) 5 General Instructions [facility] Emergency Department [address] [place] [address] Phone #: ext- [phone] 11/24/2019 16:57 Patient: NATALIYA BEASLEY Sex: F : 1995 Age: 24y Blood in the stool or vomit (red or black in color) Feeling weak or dizzy Shortness of breath Unexplained weight loss Fever of 100.4F (38C) or higher, or as directed by your healthcare provider [phone] [employer]. [address] [place] [address]. All rights reserved. This information is not [...] fatigue, or muscle cramps 6 General Instructions [facility] Emergency Department [address] [place] [address] Phone #: ext- [phone] 11/24/2019 16:57 Patient: NATALIYA BEASLEY Sex: F : 1995 Age: 24y DizzinessCall 911Call 911 if any of the following occur: Irregular heartbeat, extra beats, or very fast heart rate Loss of consciousness [phone] [employer] [place] [address]. All rights reserved. This information is not [...] of the following occur: 7 General Instructions [facility] Emergency Department [address] [place] [address] Phone #: ext- [phone] 11/24/2019 16:57 Patient: NATALIYA BEASLEY Sex: F : 1995 Age: 24y Increasing weakness Dizziness Irregular heartbeat, extra beats or very fast heart rate Increasing confusion Fainting or loss of consciousness Seizure [phone] [employer]. [address] [place] [address]. All rights reserved. This information is not intended as asubstitute for professional medical care. Always follow your healthcare professional's instructions. You have been given the following additional information: Vomiting (Adult) Gastritis (Adult) Hypokalemia Hyponatremia(Electronically signed by Ariel Miller M.D. 11/25/2019 00:42) Name Value Range Interpretation Code Description Data Michelle rce(s) Supporting Document(s) ID Date Data Source [id number] 11/24/2019 05:12:00 PM EDT [facility] 1 Clinical Report - Nurses [facility] Emergency Department [address] [place] [address] Phone #: ext- [phone] 11/24/2019 16:57 Patient: NATALIYA BEASLEY Sex: F : 1995 Age: 24yTRIAGEArrived by private vehicle. Historian: family. Accompanied by family. ( went to [employer] thursdaywas drinking alcohol and started vomit with lower abd pain).Acuity: LEVEL 3.Chief Complaint: ABDOMINAL PAIN, NAUSEA and VOMITING.Alert. No acute distress.Onset. (last ). The patient has had constipation and abdominal pain. ( muscle spasms in legsand arms, last bm last ).Treatment [facility]:None.SEPSIS SCREEN: SIRS Screen positive. --17:05 11/24/19 Alexia Kemp R.N.16:59 11/24/19. BP: 123/85. MAP: 97. HR: 95. RR: 18. O2 saturation: 100%. Temp: 98.4 F. Pain levelnow: 8/10. --17:05 11/24/19 Alexia Kemp R.N.Weight: 58.9 kg stated. Height/Length: 63 inches Per Patient. BMI: 23. --16:59 11/24/19 Alexia Kemp R.N.MedicationsNone. --17:01 11/24/19 Alexia Kemp R.N.AllergiesNone. [...] of CRE. 2 Clinical Report - Nurses [facility] Emergency Department [address] [place] [address] Phone #: ext- [phone] 11/24/2019 16:57 Patient: [...] treatment room. --17:05 11/24/19 Alexia Kemp R.N.PHYSICAL CHCSSGFFVR19:18 11/24/19. Ambulatory to room.GENERAL / NEURO / [...] and post-medication 3 Clinical Report - Nurses [facility] Emergency Department [address] [place] [address] Phone #: ext- [phone] 11/24/2019 16:57 Patient: [...] Patient transported to CT by wheelchair with assistant professor of radiology. --17:58 11/24/19 Aureliano Fortune, R.NSveta18:07 11/24/19. Patient returned from CT by wheelchair with assistant professor of radiology. --18:12 11/24/19 Aureliano Fortune R.N.18:14 11/24/19. Critical [...] Verified lab 4 Clinical Report - Nurses [facility] Emergency Department [address] [place] [address] Phone #: ext- [phone] 11/24/2019 16:57 Patient: [...] 10 mL saline; flushes easily. --20:13 11/24/19 Aurelinao Fortune R.N. 20:47 11/24/2019 IV Fluids IV [...] Fortune R.N. 5 Clinical Report - Nurses [facility] Emergency Department [address] [place] [address] Phone #: ext- [phone] 11/24/2019 16:57 [id number] Sex: F : 1995 Age: 24y 20:41 11/24/19. BP: 114/85. MAP: 94. HR: 85. RR: 16. O2 saturation: 95% on room air. Temp: 95.2 F. Pain level now: 0/10. --21:03 11/24/19 Aureliano Fortune R.N.Locked/Released at 11/24/2019 21:06 by Aureliano Fortune R.N. Name Value Range Interpretation Code Description Data Michelle rce(s) Supporting Document(s) ID Date Data Source [id number] 11/24/2019 05:12:00 PM EDT [facility] 1 Clinical Report - Physicians/Mid Levels [facility] Emergency Department [address] [place] [address] Phone #: ext- [phone] 11/24/2019 16:57 Patient: [...] described as moderate. ([place] [employer] and [place] quite a bit.been vomiting since [...] weekly. 2 Clinical Report - Physicians/Mid Levels [facility] Emergency Department [address] [place] [address] Phone #: ext- [phone] 11/24/2019 16:57 Patient: NATALIYA BEASLEY Sex: F [...] 1.5) 3 Clinical Report - Physicians/Mid Levels [facility] Emergency Department [address] [place] [address] Phone #: ext- [phone] 11/24/2019 16:57 Patient: NATALIYA BEASLEY Sex: F : 1995 Age: 24y BUN/CREAT 29 H (8 - 27) CALCIUM 10.0 MG/DL (8.4 - 10.2) ANION GAP 16.0 mmol/L (8.0 - 16.0) AGE 24 yrs AFR AMER GFR >60 mL/min NON-AA GFR >60 mL/min Male GFR Interprentation 20-49 yrs >60 mL/min Jeagfg74-09 yrs >56 mL/min Normal 60-69 yrs >49 mL/min Normal 70-79yrs>42 mL/min Normal 80 and above >35 mL/min Normal Female GFRInterpretation 20-39 yrs >60 mL/min Normal 40-49 yrs >58 mL/minNormal 50-59 yrs >51 mL/min Normal 60-69 yrs >45 mL/min Prxynl68-63 yrs >39 mL/min Normal 80 and above >32 mL/min NormalMagnesium: (ANGELY: 11/24/2019 17:15) ( MsgRcvd 11/24/2019 18:59) Final results Test Result Flag Units (Reference) MAGNESIUM 2.5 H MG/DL (1.7 - 2.2)Magnesium: (ANGELY: 11/24/2019 18:16) ( MsgRcvd 11/24/2019 18:32) CanceledCPK: (ANGELY: 11/24/2019 17:15) ( CagRcvd 11/24/2019 18:04) Final results Test Result Flag Units (Reference) CPK 321 H U/L (30 - 170)CT Abd PEL W/ IV Contrast Only: (ANGELY: 0 11/24/2019 17:15) ( gRcvd 11/24/2019 18:06) In ProgressCT ABDReason(s): Abdominal PainTRANSPORTATION: WC IV? IV?(Yes) O2? Oxygen?(No) RoBeta-HCG, Qual Serum: (ANGELY: 11/24/2019 17:15) ( [facility] 11/24/2019 17:49) Final results Test Result Flag Units (Reference) HCG SERUM QUAL NEGATIVE (NORMAL: NEGAT HCG SERUM QL REENTER NEGATIVE (NORMAL: NEGAT { KIT LOT # [id number] ){ KIT EXP DATE02.27.21 ){ PROCEDURAL CONTROL VALID)CBC w Diff: (ANGELY: 11/24/2019 17:15) ( CagRcvd 11/24/2019 18:06) Final results Test Result Flag [...] 40.0) 4 Clinical Report - Physicians/Mid Levels [facility] Emergency Department [address] [place] [address] Phone #: ext- [phone] 11/24/2019 16:57 Patient: NATALIYA BEASLEY Sex: F [...] Male GFR Interprentation 20-49 yrs >60 mL/min Fdlbfp97-41 yrs >56 mL/min Normal 60-69 yrs >49 mL/min Normal 70-79yrs>42 mL/min Normal 80 and above >35 mL/min Normal Female GFRInterpretation 20-39 yrs >60 mL/min Normal 40-49 yrs >58 mL/minNormal 50-59 yrs >51 mL/min Normal 60-69 yrs >45 mL/min Bjmoyi54-52 yrs >39 mL/min Normal 80 and above >32 mL/min NormalLipase: (ANGELY: 11/24/2019 17:15) ( MsgRcvd 11/24/2019 18:04) Final results Test Result Flag Units (Reference) LIPASE 15 U/L (13 - 60) 5 Clinical Report - Physicians/Mid Levels [facility] Emergency Department [address] [place] [address] Phone #: ext- [phone] 11/24/2019 16:57 Patient: [...] rce(s) Supporting Document(s) ID Date Data Source [id number] 11/24/2019 08:16:00 PM EDT [facility] Name Value Range Interpretation Code Description Data Michelle rce(s) Supporting Document(s) URINALYSIS [facility] Hospi tracy URINALYSIS SOURCE R [facility] Hospit al COLOR yellow NORMAL: Yellow [facility] H ospital CLARITY hazy NORMAL: Clear [facility] Ho spital Specific gravity of Urine by Test strip 1.010 1.001 - 1.030 [facility] pH 8 5 - 9 [facility] Glucose [Mass/volume] in Urine by Test strip NORM NORMAL: Negat [facility] Bilirubin.total [Presence] in Urine by Test strip NEG NORMAL: Negative [facility] Ketones [Presence] in Urine by Test strip 5 NORMAL: Negative [facility] Protein [Mass/volume] in Urine by Test strip 15 NORMAL: Negat [facility] Nitrite [Presence] in Urine by Test strip NEG NORMAL: Negative [facility] BLOOD NEG NORMAL: Negative [facility] Leukocyte esterase [Presence] in Urine by Test strip NEG DAYLIN L: Negative [facility] Urobilinogen [Mass/volume] in Urine by Test strip 1 less tito n 1.0 mg/dL [facility] MICROSCOPIC See Below [facility] ital WBC 3 - 5 NORMAL: NONE SEEN [facility] Erythrocytes [#/volume] in Urine by Test strip 3 - 5 NORMAL: NON E SEEN [facility] EPITHELIAL MODERATE NORMAL: NONE SEEN [facility] Bacteria [Presence] in Urine sediment by Light microscopy 2+ MOD NORMAL: NONE SEEN [facility] Mucus [Presence] in Urine sediment by Light microscopy Trace NORMAL: NONE SEEN [facility] ID Date Data Source [id number] 11/24/2019 07:13:00 PM EDT [facility] Name Value Range Interpretation Code Description Data Michelle rce(s) Supporting Document(s) BASIC METABOLIC PANEL [facility] BASIC METABOLIC PANEL Sodium [Moles/volume] in Serum or Plasma 120 mEq/L 134 - 153 L [facility] Potassium [Moles/volume] in Serum or Plasma 2.4 mEq/L 3.6 - 5.0 LL [facility] CALL/ READ BACK EDILMA IN ED [facility] BY: ROCK [facility] ital Chloride [Moles/volume] in Serum or Plasma 69 mEq/L 98 - 107 L [facility] CALLED CHLORIDE Carbon dioxide, total [Moles/volume] in Serum or Plasma 35 MEQ/L 22 - 30 H [facility] Glucose [Mass/volume] in Serum or Plasma 113 MG/DL 65 - 110 H [facility] BUN 23 MG/DL 7 - 21 H [facility] al Creatinine [Mass/volume] in Serum or Plasma 0.8 MG/DL 0.7 - 1.5 [facility] BUN/CREAT 29 8 - 27 H [facility] al Calcium [Mass/volume] in Serum or Plasma 10.0 MG/DL 8.4 - 10.2 [facility] Anion gap 3 in Serum or Plasma 16.0 mmol/L 8.0 - 16.0 [facility] AGE 24 yrs [facility] al AFR AMER GFR >60 mL/min [facility] Ho spital NON-AA GFR >60 mL/min [facility] ital Male GFR Inter prentation 20-49 yrs [...] >32 mL/min Normal ID Date Data Source [id number] 11/24/2019 06:59:00 PM EDT [facility] Name Value Range Interpretation Code Description Data Michelle rce(s) Supporting Document(s) Magnesium [Mass/volume] in Serum or Plasma 2.5 MG/DL 1.7 - 2.2 H [facility] ID Date Data Source [id number] 11/24/2019 06:14:00 PM T [facility] Name Value Range Interpretation Code Description Data Michelle rce(s) Supporting Document(s) COMPREHENSIVE METABOLIC PANEL [facility] COMPREHENSIVE METABOLIC PANEL Sodium [Moles/volume] in Serum or Plasma 122 mEq/L 134 - 153 L [facility] Potassium [Moles/volume] in Serum or Plasma 2.2 mEq/L 3.6 - 5.0 LL [facility] CALL/ READ BACK EDILMA IN ED [facility] BY: ROCK [facility] DATE/[facility] ital Chloride [Moles/volume] in Serum or Plasma <68 mEq/L 98 - 107 L [facility] CHLORIDE RESULT CALLED [facility] Carbon dioxide, total [Moles/volume] in Serum or Plasma 35 MEQ/L 22 - 30 H [facility] Glucose [Mass/volume] in Serum or Plasma 132 MG/DL 65 - 110 H [facility] BUN 26 MG/DL 7 - 21 H [facility] al Creatinine [Mass/volume] in Serum or Plasma 0.8 MG/DL 0.7 - 1.5 [facility] BUN/CREAT 33 8 - 27 H [facility] Protein [Mass/volume] in Serum or Plasma 8.7 G/DL 6.3 - 8.2 H [facility] Albumin [Mass/volume] in Serum or Plasma 5.4 G/DL 3.9 - 5.0 H [facility] Globulin [Mass/volume] in Serum by calculation 3.3 GM/DL 2.4 - 3.2 H [facility] A/G RATIO 1.6 0.8 - 2.0 [facility] Calcium [Mass/volume] in Serum or Plasma 10.5 MG/DL 8.4 - 10.2 H [facility] Bilirubin.total [Mass/volume] in Serum or Plasma 2.1 MG/DL 0.2 - 1.3 H [facility] Alkaline phosphatase [Enzymatic activity/volume] in Serum or Plasma 93 U/L 38 - 126 [facility] Aspartate aminotransferase [Enzymatic activity/volume] in Serum or Plasma 37 U/L 5 - 40 [facility] Alanine aminotransferase [Enzymatic activity/volume] in Seru m or Plasma 36 U/L 7 - 56 [facility] Anion gap 3 in Serum or Plasma 19.0 mmol/L 8.0 - 16.0 H [facility] 24 [facility] [facility] >60 mL/min [facility] ital AFR AMER GFR >60 mL/min [facility] Ho spital Male GFR In terprentation 20-49 [...] >32 mL/min Normal ID Date Data Source [id number] 11/24/2019 06:06:00 PM EDT [facility] Name Value Range Interpretation Code Description Data Michelle rce(s) Supporting Document(s) CBC W/AUTOMATED DIFF [facility] COMPLETE BLOOD COUNT Leukocytes [#/volume] in Blood by Automated count 17.0 10^3/uL 4.2 - 11.0 H [facility] Erythrocytes [#/volume] in Blood by Automated count 5.64 10^6/uL 4. 20 - 5.40 H [facility] Hemoglobin [Mass/volume] in Blood 17.8 g/dL 12.0 - 16.0 H [facility] Hematocrit [Volume Fraction] of Blood by Automated count 47.8 % 3 7.0 - 47.0 H [facility] Erythrocyte mean corpuscular volume [Entitic volume] by Auto mated count 84.8 fL 81.0 - 101 [facility] Erythrocyte mean corpuscular hemoglobin [Entitic mass] by Automated count 31.6 pg 27.0 - 34.0 [facility] Erythrocyte mean corpuscular hemoglobin concentration [Mass/volume] by Automated count 37.2 g/dL 31.0 - 36.0 H [facility] Erythrocyte distribution width [Ratio] by Automated count 11.8 % 11.5 - 14.5 [facility] Platelets [#/volume] in Blood by Automated count 324 10^3/uL 150 - 45 0 [facility] Platelet mean volume [Entitic volume] in Blood by Automated count 10.2 fL 7.4 - 10.4 [facility] Neutrophils/100 leukocytes in Blood by Automated count 79.6 % 37. 0 - 80.0 [facility] Lymphocytes/100 leukocytes in Blood by Manual count 11.8 % 25.0 - 40.0 L [facility] Monocytes/100 leukocytes in Blood by Automated count 7.4 % 3.0 - 8.0 [facility] Eosinophils/100 leukocytes in Blood by Automated count 0.1 % 0.0 - 7.0 [facility] Basophils/100 leukocytes in Blood by Automated count 0.2 % 0.0 - 2.5 [facility] %IG 0.9 % 0.0 - 0.[address] [facility] Hospit al %NRBC 0.0 % 0.0 - 0.0 [facility] al Neutrophils [#/volume] in Blood by Automated count 13.56 10^3/uL 2. 00 - 6.90 H [facility] Lymphocytes [#/volume] in Blood by Automated count 2.01 10^3/uL 0.60 - 3.40 [facility] Monocytes [#/volume] in Blood by Automated count 1.26 10^3/uL 0.00 - 0.90 H [facility] Eosinophils [#/volume] in Blood by Automated count 0.01 10^3/uL 0.00 - 0.70 [facility] Basophils [#/volume] in Blood by Automated count 0.04 10^3/uL 0.00 - 0.20 [facility] #IG 0.15 10^3/uL 0.00 - 0.[address] [facility] H ospital #NRBC 0.00 10^3/uL 0.00 - 0.00 [facility] H [facility]spital MANUAL DIFF SEE BELOW [facility] ital Segmented neutrophils/100 leukocytes in Blood by Manual count 77 % 37 - 80 [facility] %LYMPH 12 % 25 - 40 L [facility] al %MONO 11 % 3 - 8 H [facility] al RBC MORPH MORPH IS NORMAL [facility] ID Date Data Source [id number] 11/24/2019 06:04:00 PM EDT [facility] Name Value Range Interpretation Code Description Data Michelle rce(s) Supporting Document(s) Creatine kinase [Enzymatic activity/volume] in Serum or Plasma 3 21 U/L 30 - 170 H [facility] ID Date Data Source [id number] 11/24/2019 06:04:00 PM EDT [facility] Name Value Range Interpretation Code Description Data Michelle rce(s) Supporting Document(s) Lipase [Enzymatic activity/volume] in Serum or Plasma 15 U/L 13 - 60 [facility] ID Date Data Source [id number] 11/24/2019 05:49:00 PM EDT [facility] Value Range Interpretation Code Description Data Michelle rce(s) Supporting Document(s) HCG SERUM QUAL NEGATIVE NORMAL: NEGATIVE [facility] HCG SERUM QL REENTER NEGATIVE NORMAL: NEGATIVE [facility] { KIT LOT # [id number] ){ KIT EXP DATE 02.27.21 ){ PROCEDURAL CONTROL VALID ) Procedure Vital Signs ID Date Data Source [id number] 12/30/2019 12:40:05 PM EDT [facility] Value Range Interpretation Code Description Data Source(s) WEIGHT RECORDED 138.00 pounds 138.00 pounds [facility] Height 63 Inches 063 Inches [facility] ID Date Data Source [id number] 12/26/2019 05:03:00 PM EDT [facility] Value Range Interpretation Code Description Data Source(s) WEIGHT RECORDED 136.90 pounds 136.90 pounds [facility] Height 62 Inches 062 Inches [facility] ID Date Data Source [id number] 12/26/2019 05:02:58 PM EDT [facility] Value Range Interpretation Code Description Data Source(s) WEIGHT RECORDED 133.90 pounds 133.90 pounds [facility] Height 62 Inches 062 Inches [facility]
[2020-06-15 19:51] LABS: ACETAMINOPHEN LEVEL < 2.0 UG/ML (10.0-30.0); ALBUMIN 4.8 GM/DL (3.2-5.2); ALT/SGPT 47 U/L (12-78); BILIRUBIN,DIRECT 0.5 MG/DL (0.0-0.2); BILIRUBIN,TOTAL 1.4 MG/DL (0.2-1.0); BLOOD UREA NITROGEN 35 MG/DL (7-18); CALCIUM LEVEL 10.5 MG/DL (8.5-10.1); CARBON DIOXIDE LEVEL 36 MEQ/L (21-32); CHLORIDE LEVEL 76 MEQ/L (98-107); CK-MB VALUE MASS 2.1 NG/ML (<3.6); CPK CREATINE PHOSPHOKINASE 337 U/L (26-192); CREATININE FOR GFR 1.35 MG/DL (0.55-1.30); ETHYL ALCOHOL (ETHANOL) < 0.003 % (0.000-0.010); GLOMERULAR FILTRATION RATE 51.3 (>60); GLUCOSE, FASTING 120 MG/DL (70-100); LIPASE 218 U/L (73-393); MAGNESIUM LEVEL 2.4 MG/DL (1.8-2.4); MB/CK RELATIVE INDEX 0.62 (< OR =4); POTASSIUM SERUM 2.2 MEQ/L (3.5-5.1); SALICYLATE LEVEL < 1.7 MG/DL (5.0-30.0); SODIUM LEVEL 128 MEQ/L (136-145); TOTAL PROTEIN 8.8 GM/DL (6.4-8.2); TROPONIN I < 0.02 NG/ML (< 0.10)
[2020-06-15] MEDS ORDERED: KCL 10MEQ/100ML SWI (KRUN) 10 MEQ in IV 1 EA IV ONE ×4 (20:15)
[2020-06-15] MEDS ORDERED: ISOVUE-370 76% 100ML VIAL As Ordered ONE (20:45)
[2020-06-15] MEDS ORDERED: POTASSIUM CHLORIDE 10 MEQ SR TABLET PO ONE ×2 (21:45→22:50)
[2020-06-15] MEDS ORDERED: MAGNESIUM SULFATE 1GM/100ML D5W BAG (10MG/ML) As Ordered ONE (21:48)
--- NOTE | 2020-06-15 21:51 | REPVR ---
PROCEDURE INFORMATION: Exam: CT Abdomen And Pelvis With Contrast Exam date and time: 06/15/2020 9:26 PM Age: 24 years old Clinical indication: Abnormal findings; Abnormal lab test; Elevated wbc; Nausea and vomiting; Additional info: Nv, hypokalemia, elev wbc TECHNIQUE: Imaging protocol: Computed tomography of the abdomen and pelvis with contrast. Radiation optimization: All CT scans at this facility use at least one of these dose optimization techniques: automated exposure control; mA and/or kV adjustment per patient size (includes targeted exams where dose is matched to clinical indication); or iterative reconstruction. Contrast material: ISOVUE 370; Contrast volume: 100 ml; Contrast route: INTRAVENOUS (IV); COMPARISON: CT ABD/PEL W/IV CONTRAST ONLY 04/03/2020 1:33 AM FINDINGS: Mediastinal space: Small sliding hiatal hernia. Liver: Liver measures 16.3 cm in craniocaudal span. Gallbladder and bile ducts: Normal. No calcified stones. No ductal dilation. Pancreas: Normal. No ductal dilation. Spleen: Spleen measures 9 cm in craniocaudal span. Adrenal glands: Normal. No mass. Kidneys and ureters: 6 mm low-density lesion mid left kidney without change from previous. No hydronephrosis in either kidney. Stomach and bowel: Unremarkable. No obstruction. No mucosal thickening. Appendix: No evidence of appendicitis. Intraperitoneal space: Unremarkable. No free air. No significant fluid collection. Vasculature: Unremarkable. No abdominal aortic aneurysm. Lymph nodes: Unremarkable. No enlarged lymph nodes. Urinary bladder: Unremarkable as visualized. Reproductive: Unremarkable as visualized. Bones/joints: Fredo sacralization of L5 on the right. Soft tissues: There is asymmetric soft tissue thickening noted extending from the inferior aspect of the right hip joint posteriorly and extending along the proximal femoral diaphysis. The soft tissue mass measures approximately 3.5 x 5 by 3.6 cm. It has a density of 34 H.. Mild inflammatory change noted within the surrounding fat. The mass abuts the obturator externus muscle. It was not definitely seen on the previous examination. IMPRESSION: 1. Soft tissue masslike density extending from the inferior aspect of the right hip joint could represent a large joint effusion. Stranding of the surrounding fat suggests possibility of infection. This was not present previously and as such neoplasm considered less likely.. 2. Small sliding hiatal hernia. 3. 6 mm low-density lesion mid left kidney without change from previous. In low risk individual, this is likely benign and no follow-up recommended based on this finding. Electronically signed by: Cherry Forrest On 06/15/2020 21:51:27 PM
[2020-06-15 21:52] LABS: AMPHETAMINES LEVEL URINE NEGATIVE (NEGATIVE); BARBITURATES URINE NEGATIVE (NEGATIVE); BENZODIAZEPINES URINE NEGATIVE (NEGATIVE); CANNABINOIDS URINE POSITIVE (NEGATIVE); COCAINE METABOLITE URINE NEGATIVE (NEGATIVE); METHADONE URINE NEGATIVE (NEGATIVE); OPIATES URINE NEGATIVE (NEGATIVE); PHENCYCLIDINE URINE NEGATIVE (NEGATIVE)
[2020-06-15] MEDS ORDERED: MAG SULF 1GM/100ML (MAG RUN) 1 GM in IV 1 EA IV ONE (22:00)
[2020-06-15 23:08] LABS: RSV AMPLIFICATION NEGATIVE (NEGATIVE)
--- NOTE | 2020-06-15 23:55 | REPVR ---
PROCEDURE INFORMATION: Exam: XR Chest, 1 View Exam date and time: 06/15/2020 11:40 PM Age: 24 years old Clinical indication: Shortness of breath; Additional info: Low pulse ox TECHNIQUE: Imaging protocol: XR of the chest Views: 1 view. COMPARISON: 1. CR Chest, 2 view PA, Lat 01/17/2020 9:[address] ANGIO CHEST 01/17/2020 9:50:12 AM FINDINGS: Lungs: Unremarkable. No consolidation. No pulmonary edema. Pleural spaces: Unremarkable. No pleural effusion. No pneumothorax. Heart/Mediastinum: Unremarkable. No cardiomegaly. Bones/joints: Unremarkable. IMPRESSION: No acute findings. Electronically signed by: Aguilar Friedman On 06/15/2020 23:55:05 PM
[2020-06-15] MEDS ORDERED: NS 1,000 ML IV SCH (23:58)
[2020-06-16] VITALS (8 sets, daily range): BP systolic 108–133; BP diastolic 65–81
[2020-06-16] MEDS ORDERED: MAALOX 30 ML SUSP *UDC PO PRN
[2020-06-16] MEDS ORDERED: MOM 30ML SUSPENSION UDC PO PRN
[2020-06-16] MEDS ORDERED: LORazepam 2 MG TAB PO PRN
[2020-06-16] MEDS ORDERED: ACETAMINOPHEN TAB 650MG DOSE (2X325MG) PO PRN
--- NOTE | 2020-06-16 00:07 | HPEPDOC ---
[facility] Medical History & Physical Date of Admission Jun 16, 2020 Date of Service: Jun 16, 2020 Attending Physician: HUMBERTO ESPITIA MD History and Physical TIME OF SERVICE: 105am CHIEF COMPLAINT: vomiting HISTORY OF PRESENT ILLNESS: This 24 yr old F presented w c/o 6 day in duration nausea w non-bloody emesis, and diffuse 8/10 in severity abdominal pain for 6 days. She also noticed that she was having tingling in her finger tips and weakness; because she thought her potassium might be she decided to come to the hospital for evaluation. Despite receiving KCl in the ER she had several episode of torsades with presyncope and was also given Mag sulfate. She also had episodes of desaturation w O2 sats dropping to the 70s that did not occur at the same time that she had arrhythmias. At the time of my evaluation her nausea, vomiting, abdominal pain & paresthesias had resolved. She denied having f/c or diarrhea. 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 HOME MEDICATIONS: Please see below. PHYSICAL EXAMINATION: Vital Signs Date Time Temp Pulse Resp B/P (MAP) Pulse Ox O2 Delivery O2 Flow Rate FiO2 06/15/20 18:04 97.1 79 18 134/70 (91) 100 Room Air 06/15/20 19:16 2.0 GENERAL APPEARANCE: well nourished/ well developed/ NAD HEENT: NC in place CARDIOVASCULAR: RRR/NMRG/ no BLE edema LUNGS: CTAB on RA ABDOMEN: obese / soft / no guarding w palpation MUSCULOSKELETAL:NCAT / CORA x 4 INTEGUMENT: not diaphoretic / no facial plethora NEUROLOGICAL:CN 2-12 /speech not dysarthric PSYCHIATRIC: A&Ox 3/ able to understand and follow all commands LABORATORY DATA: 06/15/20 18:27 06/15/20 18:27: Immature Granulocyte % (Auto) 0.7, Neutrophils (%) (Auto) 84.1H, Lymphocytes (%) (Auto) 9.1L, Monocytes (%) (Auto) 6.0H, Eosinophils (%) (Auto) 0.0, Basophils (%) (Auto) 0.1, Neutrophils # (Auto) 18.3H, Lymphocytes # (Auto) 2.0, Monocytes # (Auto) 1.3H, Eosinophils # (Auto) 0.0, Basophils # (Auto) 0.0, Nucleated Red Blood Cells % (auto) 0.0, Anion Gap 16, Glomerular Filtration Rate 51.3L, Calcium Level 10.5H, Magnesium Level 2.4, Total Bilirubin 1.4H, Direct Bilirubin 0.5H, Aspartate Amino Transf (AST/SGOT) 25, Alanine Aminotransferase (ALT/SGPT) 47, Alkaline Phosphatase 99, Total Creatine Kinase 337H, Creatine Kinase MB 2.1, Creatine Kinase MB Relative Index 0.62, Troponin I < 0.02, Total Protein 8.8H, Albumin 4.8, Albumin/Globulin Ratio 1.2, Lipase 218, Salicylates Level < 1.7L, Acetaminophen Level < 2.0L, Ethyl Alcohol Level < 0.003 06/15/20 21:12: Urine Color YELLOW, Urine Appearance HAZY, Urine pH 7.0, Urine Specific [place] 1.017, Urine Protein 1+H, Urine Glucose (UA) NEGATIVE, Urine Ketones 1+H, Urine Blood 2+H, Urine Nitrite NEGATIVE, Urine Bilirubin NEGATIVE, Urine Urobilinogen 2.0H, Urine Leukocyte Esterase NEGATIVE, Urine WBC (Auto) 1, Urine RBC (Auto) 1, Urine Hyaline Casts (Auto) 7, Urine Bacteria (Auto) NEGATIVE, Urine Squamous Epithelial Cells 1, Urine Mucus (Auto) SMALL, Urine Sperm (Auto) , Urine Opiates Screen NEGATIVE, Urine Methadone Screen NEGATIVE, Urine Barbiturates Screen NEGATIVE, Urine Phencyclidine Screen NEGATIVE, Urine Amphetamines Screen NEGATIVE, Urine Benzodiazepines Screen NEGATIVE, Urine Cocaine Metabolite Screen NEGATIVE, Urine Cannabinoids Screen POSITIVEH 06/15/20 21:18: POC Beta HCG, Quantitative < 5.0 06/15/20 22:22: Coronavirus (COVID-19)(PCR) NEGATIVE, Influenza Type A (RT-PCR) NEGATIVE, Influenza Type B (RT-PCR) NEGATIVE, Respiratory Syncytial Virus (PCR) NEGATIVE IMAGING: Chest xray IMPRESSION: No acute findings. CT abd/pelvis IMPRESSION: 1. Soft tissue masslike density extending from the inferior aspect of the right hip joint could represent a large joint effusion. Stranding of the surrounding fat suggests possibility of infection. This was not present previously and as such neoplasm considered less likely. 2. Small sliding hiatal hernia. 3. 6 mm low-density lesion mid left kidney without change from previous. In low risk individual, this is likely benign and no follow-up recommended based on this finding. MICROBIOLOGY: Respiratory panel neg ASSESSMENT: is a 24 yr old w a hx of Cannabinoid Hyperemesis Syndrome & surgically repaired Hellen-Pagan tear who presented w c/o n/v & abdominal pain and will be admitted for management of hypokalemia and DIANN. PLAN: 1. n/v/ abdominal pain 2/2 Cannabinoid Hyperemesis Syndrome Resolved Plan: IVF/ will hold of Zofran bc it can prolong the QTc & she had episodes of torsades/ will not give Reglan bc her symptoms have resolved and dopamine agonists can cause irreversible EPS / advance to CLD as tolerated 2. Torsades 2/2 a combination of Metabolic Alkalosis & Hypokalemia Plan: telemetry / f/u repeat BMP / f/u Echo to r/o co-existing structural heart disease 3. Hypokalemia Mg wnl Plan: f/u repeat BMP 5. Hypochloremic metabolic alkalosis 2/2 vomiting IF no respiratory failure then the causes of chloride responsive vs chloride unresponsive should be explored because metabolic alkalosis can induce seizures and arrhythmias Plan: f/u VBG add on and add on urine chloride (if urine Cl <20 she has chloride responsive metabolic alkalosis due to vomiting that is best managed with IVF, but if urine Cl >20 she has chloride unresponsive metabolic alkalosis due to severe hypokalemia that should resolve with KCl) 6. DIANN Prerenal Plan: f/u ulytes for FENa/ IVF 7.SIRS Tachycardia and leukocytosis are likely reactive. UA and chest xray unrevealing Plan: f/u blood cx 8.HyperCPKemia THC may have been laced with other drugs Plan: IVF / trend CK 9. Transient hypoxia Cause unclear Plan; pulse ox/ wean off O2 10.Erythrocytosis 2/2 hemoconcentration from vomiting Plan: f/u repeat CBC 11. Right hip abnormality on CT She denied having right hip pain or difficulties walking. Plan: f/u w PCP on an out pt basis DVT px w SCDs Dispo: home after more than 2 midnights stay Home Medications No Active Prescriptions or Reported Meds Allergies Coded Allergies: lactose (Verified Allergy, Unknown, 05/08/19) A-FIB/CHADSVASC A-FIB History Current/History of A-Fib/PAF?: No Current PO Anticoag Therapy: No HUMBERTO ESPITIA MD Jun 16, 2020 00:06
--- OUTSIDE RECORDS SUMMARY | 2020-06-16 00:20 | CCD ---
Author Author [facility] Organization [facility] Address Unknown Phone Unavailable Care Team Providers Care Academic Registrar Name Role Phone TURRIN, LEENA Unavailable Unavailable [...] Unavailable ParvinJuan A Yang PA-C Unavailable Unavailable Srinath Falanga, A Sarah CORRECTIONS NURSE Unavailable Unavailable Srinath Falanga, A Sarah CORRECTIONS NURSE Unavailable Unavailable [place] Falanga, A Sarah CORRECTIONS NURSE Unavailable Unavailable Srinath Falanga, A Sarah CORRECTIONS NURSE Unavailable Unavailable [place] Falanga, A Sarah CORRECTIONS NURSE Unavailable Unavailable Srinath Falanga, A Sarah CORRECTIONS NURSE Unavailable Unavailable Srinath Falanga, A Sarah CORRECTIONS NURSE Unavailable Unavailable Srinath Falanga, A Sarah CORRECTIONS NURSE Unavailable Unavailable Srinath Falanga, A Sarah CORRECTIONS NURSE Unavailable Unavailable Srinath Falanga, A Sarah CORRECTIONS NURSE Unavailable Unavailable Srinath Falanga, A Sarah CORRECTIONS NURSE Unavailable Unavailable [place] Falanga, A Sarah CORRECTIONS NURSE Unavailable Unavailable [place] Falanga, A Sarah CORRECTIONS NURSE Unavailable Unavailable [place] Falanga, A Sarah CORRECTIONS NURSE Unavailable Unavailable [place] Falanga, A Sarah CORRECTIONS NURSE Unavailable Unavailable Srinath Falanga, A Sarah CORRECTIONS NURSE Unavailable Unavailable [place] Falanga, A Sarah CORRECTIONS NURSE Unavailable Unavailable Srinath Falanga, A Sarah CORRECTIONS NURSE Unavailable Unavailable Srinath Falanga, A Sarah CORRECTIONS NURSE Unavailable Unavailable Srinath Falanga, A Sarah CORRECTIONS NURSE Unavailable Unavailable [place] Falanga, A Sarah CORRECTIONS NURSE Unavailable Unavailable Srinath Falanga, A Sarah CORRECTIONS NURSE Unavailable Unavailable [place] Falanga, A Sarah CORRECTIONS NURSE Unavailable Unavailable Srinath Falanga, A Sarah CORRECTIONS NURSE Unavailable Unavailable Srinath Falanga, A Sarah CORRECTIONS NURSE Unavailable Unavailable [place] Falanga, A Sarah CORRECTIONS NURSE Unavailable Unavailable Srinath Falanga, A Sarah CORRECTIONS NURSE Unavailable Unavailable [place] Falanga, A Sarah CORRECTIONS NURSE Unavailable Unavailable [place] Falanga, A Sarah CORRECTIONS NURSE Unavailable Unavailable Srinath Falanga, A Sarah CORRECTIONS NURSE Unavailable Unavailable ARIEL MILLER MD Unavailable Unavailable [...] Unavailable YAQUELINGeorge HUTCHISON MD Unavailable Unavailable YAQUELINGeorge HUCTHISON MD Unavailable Unavailable YAQUELINGeorge HUTCHISON MD Unavailable Unavailable YAQUELINGeorge HUTCHISON MD Unavailable Unavailable YAQUELINGeorge HUTCHISON MD Unavailable Unavailable YAQUELINGeorge HUTCHISON MD Unavailable Unavailable YAQUELINGeorge HUTCHISON MD Unavailable Unavailable Flori Dumontandra CORRECTIONS NURSE CORRECTIONS NURSE Unavailable Unavailable Juan A MCKEON MD Unavailable Unavailable Juan A MCKEON MD Unavailable Unavailable Juan A MCKEON MD Unavailable Unavailable Juan A MCKEON MD Unavailable Unavailable Juan A MCKEON MD Unavailable Unavailable Juan A MCKEON MD Unavailable Unavailable Juan A MCKEON MD Unavailable Unavailable Juan A MCKEON MD Unavailable Unavailable Juan A MCKEON MD Unavailable Unavailable Tim, A Ranjana CORRECTIONS NURSE Unavailable Unavailable Tim, A Ranjana CORRECTIONS NURSE Unavailable Unavailable Tim, A Ranjana CORRECTIONS NURSE Unavailable Unavailable Tim, A Ranjana CORRECTIONS NURSE Unavailable Unavailable Tim, A Ranjana CORRECTIONS NURSE Unavailable Unavailable Tim, A Ranjana CORRECTIONS NURSE Unavailable Unavailable Tim, A Ranjana CORRECTIONS NURSE Unavailable Unavailable Tim, A Ranjana CORRECTIONS NURSE Unavailable Unavailable Tim, A Ranjana CORRECTIONS NURSE Unavailable Unavailable Tim, A Ranjana CORRECTIONS NURSE Unavailable Unavailable Tim, A Ranjana CORRECTIONS NURSE Unavailable Unavailable Tim, A Ranjana CORRECTIONS NURSE Unavailable Unavailable Tim, A Ranjana CORRECTIONS NURSE Unavailable Unavailable Tim, A Ranjana CORRECTIONS NURSE Unavailable Unavailable Tim, A Ranjana CORRECTIONS NURSE Unavailable Unavailable Tim, A Ranjana CORRECTIONS NURSE Unavailable Unavailable Tim, A Ranjana CORRECTIONS NURSE Unavailable Unavailable Tim, A Ranjana CORRECTIONS NURSE Unavailable Unavailable Tim, A Ranjana CORRECTIONS NURSE Unavailable Unavailable Tim, A Ranjana CORRECTIONS NURSE Unavailable Unavailable Tim, A Ranjana CORRECTIONS NURSE Unavailable Unavailable Tim, A Ranjana CORRECTIONS NURSE Unavailable Unavailable Tim, A Ranjana CORRECTIONS NURSE Unavailable Unavailable Tim, A Ranjana CORRECTIONS NURSE Unavailable Unavailable Tim, A Ranjana CORRECTIONS NURSE Unavailable Unavailable Tim, A Ranjana CORRECTIONS NURSE Unavailable Unavailable Tim, A Ranjana CORRECTIONS NURSE Unavailable Unavailable Tim, A Ranjana CORRECTIONS NURSE Unavailable Unavailable Re-disclosure Warning The records that [...] is protected by Article 27-F of the [facility] Public Health law. If you continue you may have access to information: Regarding HIV / AIDS; Provided by facilities licensed or operated by the [facility] Office of Mental Health; or Provided by the [facility] Office for People With Developmental Disabilities. If such information is present, then the following [facility] mandated warning applies: This information has been [...] law may result in a fine or assisted sentence or both. A general authorization for the release of medical or other information is NOT sufficient authorization for further disc losure. Allergies and Adverse Reactions Type Description Substance Reaction Status Data Source(s ) Food allergy LACTOSE LACTOSE [facility] CLASS SULFA (sulfonamide) SULFA (sulfonamide) HIVES [facility] No Known Drug Allergies No Known Drug Allergies [facility] Encounters Encounter Providers Location Date Indications Data Source(s ) Emergency Attender: Yang Melendrez PA-CConsultant: Miles Walls MD 04/03/2020 04:26:00 PM EST - 04/03/2020 09:15:00 PM [facility] Patient discharged. Outpatient Attender: JADEN Dumont [facility] 02/27/2020 12:19:00 P M EDT [facility] Outpatient Attender: Sarah moran FNPAttender: DAYLIN JAMISON MDConsultant: Miles Collazo MD 02/16/2020 04:43:00 PM ED T - 02/17/2020 12:40:[address] [facility] Patient discharged. Outpatient Attender: Ranjana Dumont [facility] 01/26/2020 02:5 0:00 PM EDT [facility] Outpatient Attender: JADEN Dumont [facility] 01/26/2020 02:46:01 P M EDT [facility] 05:19:01 P M EDT [facility] Outpatient Attender: Ranjana [facility] 01/22/2020 03:1 0:01 PM EDT [facility]2020 03:10:00 P M EDT [facility] Outpatient Attender: Ranjana [facility] 01/22/2020 03:0 9:02 PM EDT [facility]: [facility]2020 03:09:01 P M EDT [facility] Outpatient Attender: JADEN PRITCHETT 01/19/2020 09:13:00 A M EDT [facility] Outpatient Attender: JADEN PRITCHETT 01/19/2020 09:07:00 A M EDT [facility] Outpatient Attender: Sarah moran FNPAttender: LEENA MARTÍNEZConsultant: Miles Collazo MD 12/26/2019 10:59:00 A M EDT - 12/27/2019 04:25:[address] [facility] Patient discharged. Outpatient Attender: SIMIN MULLER MDAtt akosua: FER MCKEON MDConsultant: Miles Collazo MD 12/09/2019 12:55:00 PM EDT - 12/11/2019 03:40:[address] [facility] Patient discharged. Emergency Attender: LEENA Poncesultant: Miles Collazo MD 12/07/2019 06:58:00 PM EDT - 12/07/2019 09:23:[address] [facility] Patient discharged. Outpatient Attender: Sarah moran FNPAttender: ARIEL MILLER MDConsultant: Miles Collazo MD 11/24/2019 05:12:00 PM ED T - 11/26/2019 01:05:[address] [facility] Patient discharged. Outpatient 11/04/2019 05:40:00 AM EDT [facility] Outpatient Attender: JADEN STANLEY FP 10/15/2019 12:14:17 A M EDT [facility] Outpatient 10/12/2019 05:16:00 AM EDT [facility] Outpatient 09/14/2019 05:58:00 AM EDT [facility] Outpatient Attender: JADEN STANLEY FP 09/09/2019 11:10:00 A M EDT [facility] Outpatient Attender: JADEN STANLEY FP 09/07/2019 09:02:00 A M EDT [facility] Outpatient 05/27/2019 06:22:00 AM EST [facility] Outpatient Attender: JADEN PRITCHETT 05/23/2019 09:01:06 P M EST [facility] Outpatient Attender: JADEN PRITCHETT 05/23/2019 12:54:00 P M EST [facility] Medications Medication Brand Name Start Date [...] AM EDT tablet,delayed release (DR/EC) 30 T EKLI ONE TABLET BY MOUTH EVERY DAY TAKE [...] type / Coverage type Policy ID Covered green party ID Covered green party's relationship to simons Policy Simons Plan Information [facility] COMMUNITY PLAN [facility] [id number] SP [id number] [facility] [id number] SP [id number] [facility] COMMUNITY PLAN [facility] [id number] SP [id number] [facility] O [id number] S [id number] [facility] COMMUNITY PLAN XIX [id number] 18 [id number] Medicaid S [id number] S [id number] Managed Care [facility] Community Plan P [id number] S [id number] Medicaid S [id number] S [id number] [facility] COMMUNITY PLAN XIX [id number] 18 [id number] [facility] AMERICHOICE XIX HMO [id number] Managed Care - [facility] Community Plan P [id number] S [id number] Self Pay P UNAVAILABLE S UNAVAILA BLE [facility] COMMUNITY PLAN [facility] [id number] SP [id number] [facility] O [id number] S [id number] Managed Care - Community Plan [facility] P [id number] S [id number] Medicaid S [id number] S [id number] [facility] PLAN [facility] [id number] SP [id number] [facility] [id number] 18 [id number] MEDICAID - CLINIC [id number] Problems, Conditions, and Diagnoses Code Display Name Description Problem Type Effective Dates Data Source(s) N3001 Acute cystitis with hematuria Acute cystitis with armani turia Diagnosis 04/03/2020 04:26:00 PM [facility] R1084 Generalized abdominal pain Generalized abdominal pain Diagnosis 04/03/2020 04:26:00 PM [facility] F1010 Alcohol abuse, uncomplicated Alcohol abuse, uncomplica parminder Diagnosis 02/16/2020 04:43:[address] [facility] S76886 Nicotine dependence, cigarettes, uncompl icated Nicotine dependence, cigarettes, uncomplicated Diagnosis 02/16/2020 04:43:00 PM EDT [facility] F1220 Cannabis dependence, uncomplicated Cannabis depe ndence, uncomplicated Diagnosis 02/16/2020 04:43:[address] [facility] E860 Dehydration Dehydration Diagnosis 02/16/2020 04:43:[address] [facility] R1110 Vomiting, unspecified Vomiting, unspecified Diagnosis 02/16/2020 04:43:[address] [facility] E876 Hypokalemia Hypokalemia Diagnosis 02/16/2020 04:43:[address] [facility] E8342 Hypomagnesemia Hypomagnesemia Diagnosis 02/16/2020 04:43: [address] [facility] E871 Hypo-osmolality and hyponatremia Hypo-osmolality and hyponatremia Diagnosis 12/26/2019 10:59:[address] 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 R1115 Cyclical vomiting syndrome unrelated to migraine Cyclical vomiting syndrome unrelated to migraine Diagnosis 11/24/2019 05:12:00 PM EDT [facility] Results ID Date Data Source [id number] 04/04/2020 01:12:00 PM EST [facility] [address] [place] [address] PHONE: [phone] FAX: [phone] Name .................. : RITTER NATALIYA Martinez Acct Number.................. : [id number] ROOM. ................. : TR-03 Number ................... : [id number] Stay type ............. : E/R Discharge Date......... ... : Admit Date ......... : 1 06/03/19 Admit Phys .................... : PARVIN CHANTEL Date of ....... : 1995 Family Phys ................... : COLLAZO SCOT Phone .................. : [phone] Age ................................ : 24 Film# .................. .:[id number] Sex ................................. : F Unsigned transcriptions are preliminary reports and do not represent a medical or legal document CT ABD & PELVIS W/ IV ONLY [id number] COMPLETE:04/03/20 17:49 [id number] Reason(s): Abdominal Pain CT OF THE ABDOMEN [...] imperative reconstructive techniques. Page 1 of [address] [place] [address] PHONE: [phone] FAX: [phone] Name .................. : RITTER NATALIYA Martinez Acct Number.................. : [id number] ROOM. ................. : TR-03 MR Number ................... : [id number] Stay type ............. : E/R Discharge Date......... ... : Admit Date ......... : 04/03/20 Admit Phys ... ................. : PARVIN CHANTEL Date of ....... : 1995 Family Phys ................... : [employer] Phone .................. : [phone] Age ................................ : 24 Film# .................. .:[id number] Sex ................................. : F Unsigned transcriptions are preliminary reports and do not represent a medical or legal document CT ABD & PELVIS W/ IV ONLY [id number] COMPLETE:04/03/20 17:49 [id number] Reason(s): Abdominal Pain CT dose: 533 mGycm Contrast agent in mL: 75 Isovue 370 Method of administration: Intravenous Electronically Reviewed and Signed By Geraldo Rodriguez MD , 04/04/20 13:12, BUCK Transcribe Initials: FAHAD , Transcribe Date: 04/03/20 21:12, Dictation Date: Copy for: LADI PARDO via fax Copy for: PARVIN Velazco via fax Copy for: EMERGENCY DEPT via modem Copy for: Marisol MED REC DISCHARGED Page 2 of 2 Name Value Range Interpretation Code Description Data Michelle rce(s) Supporting Document(s) ID Date Data Source [id number] 04/03/2020 04:26:[address] [facility] [address] [facility] Emergency Department [address] [place] [address] Phone #: ext- [phone] 04/03/2020 16:19 Patient: NATALIYA BEASLEY Sex: F : 1995 Age: 24yWEIGHT:58.9 kg (S) HEIGHT:62 inches (S) BMI:23.8ALLERGIES: Lactose Intolerance (GI), No Known Drug AllergyCHIEF COMPLAINT: abdominal pain, vomiting, nausea, crampsDIAGNOSIS: Abdominal pain, CystitisLAB ORDERSOrder Description Priority Entered Acknowledged InitialedCBC w Diff STAT 16:59 04/03/2020 17:05 Imtiaz Sheets R.N. P.A.-C;CMP STAT 16:59 04/03/2020 17:05 Imtiaz SheetsN. P.A.-C;Lipase STAT 16:59 04/03/2020 17:05 Imtiaz SheetsN. P.A.-C;Urinalysis (Clean STAT 16:59 04/03/2020 17:08 Nakia Sheets) Imtiaz Wiseman R.N. P.A.-C;Lactic Acid STAT 16:59 04/03/2020 17:05 Imtiaz Sheets R.N. P.A.-C;Beta-HCG, Qual STAT 16:59 04/03/2020 17:05 Sudeep,Serum Imtiaz Wiseman R.N. P.A.-C;Magnesium STAT 16:59 04/03/2020 17:05 Imtiaz Sheets R.N. P.A.-C;Culture, Urine STAT 17:48 04/03/2020 17:59 Sudeep,(Urine, Clean Imtiaz Wiseman R.N.Catch) P.A.-C;DIAGNOSTIC STUDY ORDERSOrder Description Priority Entered Acknowledged InitialedCT Abd PEL W/ IV STAT 17:49 04/03/2020 19:48 Sudeep,Contrast Only Imtiaz Wiseman R.N.(Oxygen?(No)) P.A.-C;(IV?(Yes)) [address] [facility] Emergency Department [address] [place] [address] Phone #: ext- [phone] 04/03/2020 16:19 Patient: NATALIYA BEASLEY Sex: F : 1995 Age: 24y Reason for Study: Abdominal Pain, Nausea, VomitingMEDICATION/IV/DRIP/FLUID ORDERSOrder Description Priority Entered Acknowledged InitialedNS IV : Bolus 1000 16:59 04/03/2020 17:15 Sudeep,mL, then 75 mL/hr Imtiaz GallegosN. P.A.-C;Zofran IVP 8 mg 16:59 04/03/2020 17:15 Imtiaz SheetsN. P.A.-C;Protonix IVPB 40 16:59 04/03/2020 17:15 Sudeepmg with Dextrose Imtiaz GallegosN.100 ml spike bag P.A.-C;(D5W)Benadryl IVP 25 mg 16:59 04/03/2020 17:16 Imtiaz SheetsN. P.A.-C;Pepcid IVPB 20 16:59 04/03/2020 17:16 Sheets,mg/50mL (NOW x1, Imtiaz Wiseman R.N.Infuse over 30 P.A.-C;minutes.)Rocephin 20:23 04/03/2020 20:37 Melaragno,(1gm/50mL) IVPB Imtiaz Sigala R.N.1000 mg with P.A.-C;Dextrose 50 mlspike bag (D5W)GENERAL ORDERSOrder Description Priority Entered Acknowledged InitialedNPO 16:59 04/03/2020 17:05 Imtiaz Sheets R.N. P.A.-C;Saline Lock 16:59 04/03/2020 17:05 Imtiaz Sheets R.N. P.A.-C;[Electronically signed by Ivone Sheets R.N. (21:04 04/03/2020)][Electronically signed by Imtiaz España P.A.-C (21:42 04/03/2020)][Electronically locked by Ivone Sheets R.N. (21:04 04/03/2020)] Name Value Range Interpretation Code Description Data Michelle rce(s) Supporting Document(s) ID Date Data Source [id number] 04/03/2020 04:26:[address] [facility] [address] [facility] Emergency Department [address] [place] [address] Phone #: ext- [phone] 04/03/2020 16:19 Patient: [...] Dispense 14 capsule. Refills: 0.Substitution permitted.Pharmacy - [facility] - [address] [place] [address]. .Zofran 4 mg tablet Take 1 tablet three times a day for 4 days -- Dispense 12 tablet. Refills: 0.Substitution permitted. [address] [facility] Emergency Department [address] [place] [address] Phone #: ext- [phone] 04/03/2020 16:19 Patient: NATALIYA BEASLEY Sex: F : 1995 Age: 24yPharmacy - [facility] - [address] [place] [address]. . -- Imtiaz España P.A.-C Name Value Range Interpretation Code Description Data Michelle rce(s) Supporting Document(s) ID Date Data Source [id number] 04/03/2020 04:26:[address] [facility] [address] [facility] Emergency Department [address] [place] [address] Phone #: ext- [phone] 04/03/2020 16:19 Patient: NATALIYA BEASLEY Sex: F : 1995 Age: 24yWeight: 58.9 kgHeight/Length: 62 inBMI: 23.8ALLERGIES: Lactose Intolerance (GI), No Known Drug Allergy Date/Time Medication Administered Medication OrderedStart NS [IV] NS IV : Bolus 1000 mL, then 7517:15 04/03/2020 Dose: IV Fluids mL/hrIvone Sheets R.NSveta Bolus: 1000 mL over 1 hour(s)---- Dispensed: 1000 mL bagStop Site: #1 left AC19:38 04/03/2020Ivone Sheets RSvetaNSvetaStart NS [IV] NS IV : Bolus 1000 mL, then 7519:56 04/03/2020 Dose: IV Fluids mL/hrZakiya Quiles R.NSveta Rate: 75 mL/hr---- Dispensed: 1000 mL bagStop Site: #1 left AC20:54 04/03/2020Zakiya Quiles R.NSvetaGiven ZOFRAN [IVP] (ONDANSETRON HCL) Zofran IVP 8 mg17:15 04/03/2020 Dose: 8 mg IVPIvone Sheets R.NSveta Site: #1 left ACStart PROTONIX [IVPB] (PANTOPRAZOLE Protonix IVPB 40 mg with17:15 04/03/2020 SODIUM) Dextrose 100 ml spike bag (D5W)SheetsIvone leon R.N. Dose: 40 mg IVPB---- Rate: 200 mL/hr [...] ACStart ROCEPHIN (1GM/50ML) [IVPB] Rocephin (1gm/50mL) IVPB 584697:36 04/03/2020 (CEFTRIAXONE SODIUM) mg with Dextrose 50 ml spike Zakiya Dougherty R.N. Dose: 1 gm IVPB (D5W)---- Rate: 100 mL/hr over 30 minute(s)Stop Bolus: 1 gm wide open20:54 04/03/2020 Dispensed: 50 mL Zakiya Dougherty R.N. Site: #1 left AC Name Value Range Interpretation Code Description Data Michelle rce(s) Supporting Document(s) ID Date Data Source [id number] 04/03/2020 04:26:[address] [facility] [address] [facility] Emergency Department [address] [place] [address] Phone #: ext- [phone] 04/03/2020 16:19 Patient: [...] would like. [facility] conditions.).Warnings: Further evaluation is necessary.GENERAL WARNINGS: Return or contact your physician immediately if your condition worsens orchanges unexpectedly, if not improving as expected, or if other problems arise.Your Current Medications: .No home medication.Prescription Medications:Macrobid 100 mg capsule Take 1 capsule twice a day for 7 days -- Dispense 14 capsule. Refills: 0.Substitution permitted.[facility] [address] [place] [address]. .Zofran 4 mg tablet Take 1 tablet three times a day for 4 days -- Dispense 12 tablet. Refills: 0.Substitution permitted.[facility] [place] [address]. .Follow-up:Return to the emergency department as needed. Follow up with your healthcare provider in about twodays if not better. Call for an appointment.Understanding of the discharge instructions verbalized by patient. [address] [facility] Emergency Department [address] [place] [address] Phone #: ext- [phone] 04/03/2020 16:19 - Patient: NATALIYA BEASLEY Sex: F : 1995 Age: 24yFollow-up with: Shabbir Addison MD, Gastroenterology, [id number], [facility],[address] [facility], [address], [place], [address] Follow up. Call for the next available appointment. Reason for referral: evaluation and treatment.Follow-up with: [facility], , , [address] [place] [address], [address] Follow up. Call for the next available [...] be constant. Other common [address] [facility] Emergency Department [address] [place] [address] Phone #: ext- [phone] 04/03/2020 16:19 Patient: NATALIYA BEASLEY Sex: F : 1995 Age: 24ysymptoms can [...] to improve in the [address] [facility] Emergency Department [address] [place] [address] Phone #: ext- [phone] 04/03/2020 16:19 Patient: NATALIYA BEASLEY Sex: F : 1995 Age: 24ynext 24 hours.Call [phone] if any of these occur: Trouble breathing [...] or water and you are getting dehydrated [id number] [employer]. [address] [place] [address]. All rights reserved. This information is not intended as asubstitute for professional medical care. Always follow your healthcare professional's instructions.Bladder Infection, Female (Adult) [address] [facility] Emergency Department [address] [place] [address] Phone #: ext- [phone] 04/03/2020 16:19 Patient: [...] above the pubic bone. [address] [facility] Emergency Department [address] [place] [address] Phone #: ext- [phone] 04/03/2020 16:19 Patient: [...] more serious kidney infection.Medicines [address] [facility] Emergency Department [address] [place] [address] Phone #: ext- [phone] 04/03/2020 16:19 Patient: NATALIYA BEASLEY [employer] Llct#: [id number] Sex: F : 1995 Age: 24yMedicines can [...] will affect your treatment. [address] [facility] Emergency Department [address] [place] [address] Phone #: ext- [phone] 04/03/2020 16:19 Patient: [...] swelling in the outer vaginal area (labia) [id number] [employer]. [address] [place] [address]. All rights reserved. This information is not intended as asubstitute for professional medical care. Always follow your healthcare professional's instructions.Blood in the Urine [address] [facility] Emergency Department [address] [place] [address] Phone #: ext- [phone] 04/03/2020 16:19 Patient: [...] had blood in your [address] [facility] Emergency Department [address] [place] [address] Phone #: [phone]- [phone] 04/03/2020 16:19 Patient: NATALIYA BEASLEY [employer] Llct#: [id number] Sex: F : 1995 Age: 24yurine, you [...] the nose or gums or easy bruising [id number] [employer]. [address] [place] [address], [place] [address]. All rights reserved. This information is not [...] rce(s) Supporting Document(s) ID Date Data Source [id number] 04/03/2020 04:26:[address] [facility] 1 Clinical Report - Nurses [facility] Emergency Department [address] [place] [address] Phone #: [phone]- [phone] 04/03/2020 16:19 Patient: NATALIYA BEASLEY Sex: F : 1995 Age: 24yTRIAGEHistorian: patient. Unaccompanied.Triage time: 16:21 04/03/2020. Acuity: LEVEL 3.Chief Complaint: ABDOMINAL PAIN, NAUSEA and VOMITING.Alert. No acute distress.( Pt states non-stop vomiting x2 days. Reports diffuse abd pain and heartburn. Last BM yesterday.).--16:27 04/03/20 Germán Marieein16:21 04/03/20. BP: 124/74. MAP: 90. HR: 60. RR: 16. O2 saturation: 99% on room air. Temp: 99 F(oral). Pain level now: 01/25. --16:27 04/03/20 Chencho Mariee.Weight: 58.9 kg stated. Height/Length: 62 inches Per Patient. BMI: 23.8. --16:21 04/03/20 Chencho Mariee.MedicationsNone. --16:20 Chencho Mariee.AllergiesNo Known Drug Allergy. --16:27 04/03/20 Chencho MarieeLactose Intolerance (GI). --16:04/03/20 Chencho Mariee.Medication/allergy information source: the patient. --16:27 04/03/20 Chencho Mariee.HistoryPAST MEDICAL HX: Last normal menstrual [...] no deficiencies. 2 Clinical Report - Nurses [facility] Emergency Department [address] [place] [address] Phone #: ext- [phone] 04/03/2020 16:19 ----- [...] Advanced care plan (full code). --16:27 04/03/20 WilmaChencho oscar.PHYSICAL ASSESSMENTAmbulatory to room.GENERAL / NEURO / PSYCH: [...] mLsaline (Given to primary RN.). --16:50 04/03/20 WilmaChencho oscar 17:15 04/03/2020 Started bag #1 1000 mL [...] Sheets R.N. 3 Clinical Report - Nurses [facility] Emergency Department [address] [place] [address] Phone #: ext- [phone] 04/03/2020 16:19 Patient: [...] Verbalizes understanding. --17:16 04/03/20 Ivone Sheets R.N.17:23 04/03/20. BP: 150/88. MAP: 108. HR: 58. RR: [...] Ivone Sheets R.N.19:43 04/03/20. Patient transported to [place] by wheelchair with mask and tech. --19:48 04/03/20 Ivone Sheets R.N.19:56 04/03/2020 Started bag #1 1000 mL IV Fluids NS; at 75 mL/hr via site #1 via IV pump. Allergiesverified and confirmed 5 rights. IV patency established. IV site checked: no pain, redness, or swelling. IVflushed thoroughly pre- and post- medication administration. Information reviewed with patient. Verbalizes 4 Clinical Report - Nurses [facility] Emergency Department [address] [place] [address] Phone #: ext- [phone] 04/03/2020 16:19 Patient: NATALIYA BEASLEY Sex: F : 1995 Age: 24y understanding. --19:56 04/03/20 Zakiya Quiles R.N. 19:56 04/03/20. BP: 137/72. MAP: 93. HR: 70. RR: 18. O2 saturation: 99% on room air. --19:57 04/03/20 Zakiya Quiles R.N. The patient is calm and resting quietly. Patient returned from CT by wheelchair with mask and professor of radiology. --19:57 04/03/20 Zakiya Quiles [...] pharmacy. Reviewed referral to a surgeon and cylinder machine operator pulp drier. Work note given. Patient verbalized understanding. Written instructions provided in Bruneian. The patient was discharged by the physician assistant professor of spanish. She was discharged home and accompanied by [...] rce(s) Supporting Document(s) ID Date Data Source [id number] 04/03/2020 04:26:00 PM [facility] 1 Clinical Report - Physicians/Mid Levels [facility] Emergency Department [address] [place] [address] Phone #: ext- [phone] 04/03/2020 16:19 Patient: [...] ears. 2 Clinical Report - Physicians/Martha Messina [facility] Emergency Department [address] [place] [address] Phone #: ext- [phone] 04/03/2020 16:19 Patient: NATALIYA BEASLEY Sex: F [...] room air.Temp: 99 F. Pain level now: 10. Have been reviewed. Oxygen sat uration normal.Appearance: [...] 3 Clinical Report - Physicia ns/Mid Levels [facility] Emergency Department [address] [place] [address] Phone #: ext- [phone] 04/03/2020 16:19 Patient: [...] Male GFR Interprentation 20-49 yrs >60 mL/min Svquqd53-05 yrs >56 mL/min Normal 60-69 yrs >49 mL/min Normal 70-79yrs 4 Clinical Report - Physicians/Mid Levels [facility] Emergency Department [address] [place] [address] Phone #: ext- [phone] 04/03/2020 16:19 Patient: [...] AMORPH SED 2+ (NORMAL: NONE Lactic Acid: (ANGLEY: 04/03/2020 16:45) ( MsgRcvd 04/03/2020 17:23) Final results Test Result Flag Units (Reference) LACTIC ACID 1.6 MMOL/L (0.2 - 2.2) Beta-HCG, Qual Serum: (ANGELY: 04/03/2020 16:45) ( MsgRcvd 04/03/2020 17:27) Final results Test Result Flag Units (Reference) HCG SERUM QUAL NEGATIVE (NORMAL: NEGAT HCG SERUM QL REENTER NEGATIVE (NORMAL: NEGAT { KIT LOT # [id number] ){ KIT EXP DATE 02.20.21 ){ PROCEDURAL CONTROL VALID ) Magnesium: (ANGELY: 04/03/2020 16:45) ( MsgRcvd 04/03/2020 17:33) Final results Test Result Flag Units (Reference) MAGNESIUM 1.8 MG/DL (1.7 - 2.2). 5 Clinical Report - Physicians/Mid Levels [facility] Emergency Department [address] [place] [address] Phone #: ext- [phone] 04/03/2020 16:19 Patient: [...] appropriatle f/u as outpt. Will image for furhter eval. pending results. Enter room and pt lying [...] weight. 6 Clinical Report - Physicians/Mid Levels [facility] Emergency Department [address] [place] [address] Phone #: ext- [phone] 04/03/2020 16:19 Patient: NATALIYA BEASLEY Sex: F [...] weight. I have provided infomration on 2 janerate surgeons for you to choose whom you would like. I did consult the surgeon at [facility] though and is aware of your conditions.). [...] Dispense 14 capsule. Refills: 0. Substitution permitted. [facility] - [address] [place] [address]. . Zofran 4 mg tablet Take 1 tablet three times a day for 4 days -- Dispense 12 tablet. Refills: 0. Substitution permitted. [facility]26 - [address] [place] [address]. . Follow-up: Return to the emergency department as needed. Follow up with your healthcare provider in about two days if not better. Call for an appointment. Understanding of the discharge instructions verbalized by patient. 7 Clinical Report - Physicians/Mid Levels [facility] Emergency Department [address] [place] [address] Phone #: ext- [phone] 04/03/2020 16:19 Patient: NATALIYA BEASLEY [facility]#: [id number] Sex: F : 1995 Age: 24y Follow-up with: Shabbir Addison MD, Gastroenterology, [id number], [address] [place] [address], [address], [address] Follow up. Call for the next available appointment. Reason for referral: evaluation and treatment. Follow-up with: [facility], , , [address] [place] [address], [address] Follow up. Call for the next available appointment. Reason for referral: evaluation and treatment.(Electronically signed by Imtiaz España P.A.-C 04/03/2020 21:42) Name Value Range Interpretation Code Description Data Michelle rce(s) Supporting Document(s) ID Date Data Source [id number] 04/03/2020 05:43:[address] [facility] Name Value Range Interpretation Code Description Data [facility] rce(s) Supporting Document(s) URINALYSIS [facility] tracy [facility] yellow NORMAL: Yellow [facility] CLARITY hazy NORMAL: Clear [facility] Specific gravity of Urine by Test strip 1.020 1.001 - 1.030 [facility] pH 6 5 - 9 [facility] Glucose [Mass/volume] in Urine by Test strip NORM NORMAL: Negat [facility] Bilirubin.total [Presence] in Urine by Test strip NEG NORMAL: Negative [facility] Ketones [Presence] in Urine by Test strip 50 NORMAL: Negative [facility] Protein [Mass/volume] in Urine by Test strip 30 NORMAL: Negat [facility] Nitrite [Presence] in Urine by Test strip NEG NORMAL: Negative [facility] BLOOD 10 NORMAL: Negative [facility] Leukocyte esterase [Presence] in Urine by Test strip NEG DAYLIN L: Negative [facility] Urobilinogen [Mass/volume] in Urine by Test strip 1 less tito n 1.0 mg/dL [facility] MICROSCOPIC See Below [facility]osp ital WBC 3 - 5 NORMAL: NONE SEEN [facility] Erythrocytes [#/volume] in Urine by Test strip 1 - 3 NORMAL: NON E SEEN [facility] EPITHELIAL MODERATE NORMAL: NONE SEEN A [facility] Bacteria [Presence] in Urine sediment by Light microscopy Tr laura NORMAL: NONE SEEN [facility] Mucus [Presence] in Urine sediment by Light microscopy 2+ NOR MAL: NONE SEEN A [facility] Amorphous sediment [Presence] in Urine sediment by Light chelsey roscopy 2+ NORMAL: NONE SEEN [facility] ID Date Data Source [id number] 04/07/2020 09:15:[address] [facility] Name Value Range Interpretation Code Description Data Michelle rce(s) Supporting Document(s) CULTURE URINE [facility] _CULTURE URINE_$$[id number]$$[id number]$$[id number]$$[id number]$$[id number]$$[id number]$$422355$$297650$$364571$$ 002314$$263666$$274758$$037095$$366508$$819418$$182258$$469276$$697462$$474196$$ 985935$$329761$$901787$$541588$$127236$$925949$$076890$$[id number] -- Continued on next page --Patient: RITTER NATALIYA Martinez Order: 2Culture: CULTURE URINE Status: Final ==== -- Continued on next page --Patient: RITTER NATALIYA Martinez Order: Page 2Culture: CULTURE URINE Status: Prelim =====$$[id number]$$[id number] DATE/TIME: 04/07/2020 13:06Culture: CULTURE URINE Status: FinalUrine Culture,Comprehensive: P1No growth in 36 - 48 hours. Previous result entered on 04/06/2020 03:16 ET No growth after 18-24 hours.P1 Test performed by: [facility] #: [id number] [address] [place] [address] [id number] [facility] [address]Medical Director : Abhilash Hilairo MD NPI #:Lab Di louis : 04/06/[email or web address].SENT REF 04/07/20.2115.XMT.SENT REF ID Date Data Source [id number] 04/03/2020 05:36:[address] [facility] Name Value Range Interpretation Code Description Data Michelle rce(s) Supporting Document(s) COMPREHENSIVE METABOLIC PANEL [facility] COMPREHENSIVE METABOLIC PANEL Sodium [Moles/volume] in Serum or Plasma 139 mEq/L 134 - 153 [facility] Potassium [Moles/volume] in Serum or Plasma 3.5 mEq/L 3.6 - 5.[address] [facility] Chloride [Moles/volume] in Serum or Plasma 100 mEq/L 98 - 107 [facility] Carbon dioxide, total [Moles/volume] in Serum or Plasma 29 MEQ/L 22 - 30 [facility] Glucose [Mass/volume] in Serum or Plasma 139 MG/DL 65 - [address] [facility] BUN 11 MG/DL 7 - 21 [facility] Creatinine [Mass/volume] in Serum or Plasma 0.5 MG/DL 0.7 - 1.[address] [facility] BUN/CREAT 22 8 - 27 [facility] Protein [Mass/volume] in Serum or Plasma 7.7 G/DL 6.3 - 8.2 [facility] Albumin [Mass/volume] in Serum or Plasma 4.9 G/DL 3.9 - 5.0 [facility] Globulin [Mass/volume] in Serum by calculation 2.8 GM/DL 2.4 - 3.2 [facility] A/G RATIO 1.8 0.8 - 2.0 [facility] Calcium [Mass/volume] in Serum or Plasma 10.1 MG/DL 8.4 - 10.2 [facility] Bilirubin.total [Mass/volume] in Serum or Plasma <0.7 MG/DL 0.2 - 1.3 [facility] Alkaline phosphatase [Enzymatic activity/volume] in Serum or Plasma 74 U/L 38 - 126 [facility] Aspartate aminotransferase [Enzymatic activity/volume] in Serum or Plasma 15 U/L 5 - 40 [facility] Alanine aminotransferase [Enzymatic activity/volume] in Seru m or Plasma 15 U/L 7 - 56 [facility] Anion gap 3 in Serum or Plasma 10.0 mmol/L 8.0 - 16.0 [facility] AGE 24 yrs [facility] al NON-AA GFR >60 mL/min [facility] ital AFR AMER GFR >60 mL/min [facility] Male GFR In terprentation [...] >32 mL/min Normal ID Date Data Source [id number] 04/03/2020 05:33:00 PM [facility] Name Value Range Interpretation Code Description Data Michelle rce(s) Supporting Document(s) Magnesium [Mass/volume] in Serum or Plasma 1.8 MG/DL 1.7 - 2.2 [facility] ID Date Data Source [id number] 04/03/2020 05:33:00 PM [facility] Name Value Range Interpretation Code Description Data Michelle rce(s) Supporting Document(s) Lipase [Enzymatic activity/volume] in Serum or Plasma 15 U/L 13 - 60 [facility] ID Date Data Source [id number] 04/03/2020 05:27:[address] [facility] Name Value Range Interpretation Code Description Data Michelle rce(s) Supporting Document(s) HCG SERUM QUAL NEGATIVE NORMAL: NEGATIVE [facility] HCG SERUM QL REENTER NEGATIVE NORMAL: NEGATIVE [facility] { KIT LOT # [id number] ){ KIT EXP DATE 02.20.21 ){ PROCEDURAL CONTROL VALID ) ID Date Data Source [id number] 04/03/2020 05:23:[address] [facility] Name Value Range Interpretation Code Description Data Michelle rce(s) Supporting Document(s) CBC W/AUTOMATED DIFF [facility] COMPLETE BLOOD COUNT Leukocytes [#/volume] in Blood by Automated count 10.2 10^3/uL 4.2 - 11.0 [facility] Erythrocytes [#/volume] in Blood by Automated count 4.79 10^6/uL 4. 20 - 5.40 [facility] Hemoglobin [Mass/volume] in Blood 11.7 g/dL 12.0 - 16.[address] [facility] Hematocrit [Volume Fraction] of Blood by Automated count 36.9 % 3 7.0 - 47.[address] [facility] Erythrocyte mean corpuscular volume [Entitic volume] by Auto mated count 77.0 fL 81.0 - [address] [facility] Erythrocyte mean corpuscular hemoglobin [Entitic mass] by Automated count 24.4 pg 27.0 - 34.[address] [facility] Erythrocyte mean corpuscular hemoglobin concentration [Mass/volume] by Automated count 31.7 g/dL 31.0 - 36.0 [facility] Erythrocyte distribution width [Ratio] by Automated count 16.5 % 11.5 - 14.[address] [facility] Platelets [#/volume] in Blood by Automated count 365 10^3/uL 150 - [address] [facility] Platelet mean volume [Entitic volume] in Blood by Automated count 11.2 fL 7.4 - 10.[address] [facility] Neutrophils/100 leukocytes in Blood by Automated count 83.4 % 37. 0 - 80.[address] [facility] Lymphocytes/100 leukocytes in Blood by Manual count 10.4 % 25.0 - 40.[address] [facility] Monocytes/100 leukocytes in Blood by Automated count 5.6 % 3.0 - 8.0 [facility] Eosinophils/100 leukocytes in Blood by Automated count 0.0 % 0.0 - 7.0 [facility] Basophils/100 leukocytes in Blood by Automated count 0.2 % 0.0 - 2.5 [facility] %IG 0.4 % 0.0 - 0.0 H [facility] al %NRBC 0.0 % 0.0 - 0.0 [facility] al Neutrophils [#/volume] in Blood by Automated count 8.50 10^3/uL 2.00 - 6.[address] [facility] Lymphocytes [#/volume] in Blood by Automated count 1.06 10^3/uL 0.60 - 3.40 [facility] Monocytes [#/volume] in Blood by Automated count 0.57 10^3/uL 0.00 - 0.90 [facility] Eosinophils [#/volume] in Blood by Automated count 0.00 10^3/uL 0.00 - 0.70 [facility] Basophils [#/volume] in Blood by Automated count 0.02 10^3/uL 0.00 - 0.20 [facility] #IG 0.04 10^3/uL 0.00 - 0.10 [facility] ospital #NRBC 0.00 10^3/uL 0.00 - 0.00 [facility] ospital MANUAL DIFF NOT INDICATED [facility] RBC MORPH NOT INDICATED [facility] spital ID Date Data Source [id number] 04/03/2020 05:23:[address] [facility] Name Value Range Interpretation Code Description Data Michelle rce(s) Supporting Document(s) Lactate [Moles/volume] in Serum or Plasma 1.6 MMOL/L 0.2 - 2.2 [facility] ID Date Data Source [id number] 02/17/2020 01:07:00 PM EDT [facility] [address] [place] [address] PHONE: [phone] FAX: [phone] Name .................. : RITTER NATALIYA Martinez Acct Number.................. : [id number] ROOM. ................. : 117 MR Number ................... : [id number] Stay type ............. : O/P Discharge Date......... ... : Admit Date ......... : 02/16/20 Admit Phys .................... : CLAUDIO Date of ....... : 1995 Family Phys ................... : COLLAZO [employer] Phone .................. : [phone] Age ................................ : 24 Film# .................. .:[id number] Sex ................................. : F Unsigned transcriptions are preliminary reports and do not represent a medical or legal document CT ABD & PELVIS W/ IV ONLY [id number] COMPLETE:02/16/20 21:34 KJE 05008 (REASON FOR ABDOMEN: ABDOMINAL PAIN CT OF [...] dose: 507.[address]Gy[address] [facility] [address] [place] [address] [place] [address] PHONE: [phone] FAX: [phone] Name .................. : RITTER NATALIYA Martinez Acct Number.................. : [id number] ROOM. ................. : 117 MR Number ................... : [id number] Stay type ............. : O/P Discharge Date......... ... : Admit Date ......... : 02/16/20 Admit Phys .................... : CLAUDIO Date of ....... : 1995 Family Phys ................... : COLLAZO [employer] Phone .................. : [phone] Age ................................ : 24 Film# .................. .:[id number] Sex ................................. : F Unsigned transcriptions are preliminary reports and do not represent a medical or legal document CT ABD & PELVIS W/ IV ONLY [id number] COMPLETE:02/16/20 21:34 KJE 90730 (REASON FOR ABDOMEN: ABDOMINAL PAIN Contrast agent in mL: 75 Isovue 370 Method of administration: Intravenous Electronically Reviewed and Signed By Genaro Lozoya M.D. , 02/17/20 13:07, [place] Transcribe Initials: DZ , Transcribe Date: 02/17/20 02:00, Dictation Date: Copy for: DAVID Prince via fax Copy for: EMERGENCY DEPT via modem Copy for: 710 MED REC Page 2 of 2 Name Value Range Interpretation Code Description Data Michelle rce(s) Supporting Document(s) ID Date Data Source [id number] 02/17/2020 07:03:[address] [facility] Name Value Range Interpretation Code Description Data Michelle rce(s) Supporting Document(s) Magnesium [Mass/volume] in Serum or Plasma 2.5 MG/DL 1.7 - 2.[address] [facility] ID Date Data Source [id number] 02/17/2020 07:03:[address] [facility] Name Value Range Interpretation Code Description Data Michelle rce(s) Supporting Document(s) COMPREHENSIVE METABOLIC PANEL [facility] COMPREHENSIVE METABOLIC PANEL Sodium [Moles/volume] in Serum or Plasma 146 mEq/L 134 - 153 [facility] Potassium [Moles/volume] in Serum or Plasma 3.4 mEq/L 3.6 - 5.[address] [facility] Chloride [Moles/volume] in Serum or Plasma 107 mEq/L 98 - 107 [facility] Carbon dioxide, total [Moles/volume] in Serum or Plasma 29 MEQ/L 22 - 30 [facility] Glucose [Mass/volume] in Serum or Plasma 89 MG/DL 65 - 110 [facility] BUN 12 MG/DL 7 - 21 [facility] al Creatinine [Mass/volume] in Serum or Plasma 0.6 MG/DL 0.7 - 1.[address] [facility] BUN/CREAT 20 8 - 27 [facility] Protein [Mass/volume] in Serum or Plasma 6.1 G/DL 6.3 - 8.[address] [facility] Albumin [Mass/volume] in Serum or Plasma 4.1 G/DL 3.9 - 5.0 [facility] Globulin [Mass/volume] in Serum by calculation 2.0 GM/DL 2.4 - 3.[address] [facility] A/G RATIO 2.1 0.8 - 2.0 H [facility] al Calcium [Mass/volume] in Serum or Plasma 9.0 MG/DL 8.4 - 10.2 [facility] Bilirubin.total [Mass/volume] in Serum or Plasma <0.7 MG/DL 0.2 - 1.3 [facility] Alkaline phosphatase [Enzymatic activity/volume] in Serum or Plasma 52 U/L 38 - 126 [facility] Aspartate aminotransferase [Enzymatic activity/volume] in Serum or Plasma 21 U/L 5 - 40 [facility] Alanine aminotransferase [Enzymatic activity/volume] in Seru m or Plasma 44 U/L 7 - 56 [facility] Anion gap 3 in Serum or Plasma 10.0 mmol/L 8.0 - 16.0 [facility] AGE 24 yrs [facility] al NON-AA GFR >60 mL/min [facility] ital AFR AMER GFR >60 mL/min [facility] Ho spital Male GFR In terprentation [...] >32 mL/min Normal ID Date Data Source [id number] 02/17/2020 07:02:[address] [facility] Name Value Range Interpretation Code Description Data Michelle rce(s) Supporting Document(s) CBC W/AUTOMATED DIFF [facility] COMPLETE BLOOD COUNT Leukocytes [#/volume] in Blood by Automated count 8.4 10^3/uL 4.2 - [address] [facility] Erythrocytes [#/volume] in Blood by Automated count 3.93 10^6/uL 4. 20 - 5.[address] [facility] Hemoglobin [Mass/volume] in Blood 10.7 g/dL 12.0 - 16.[address] [facility] Hematocrit [Volume Fraction] of Blood by Automated count 33.8 % 3 7.0 - 47.[address] [facility] Erythrocyte mean corpuscular volume [Entitic volume] by Auto mated count 86.0 fL 81.0 - 101 [facility] Erythrocyte mean corpuscular hemoglobin [Entitic mass] by Automated count 27.2 pg 27.0 - 34.0 [facility] Erythrocyte mean corpuscular hemoglobin concentration [Mass/volume] by Automated count 31.7 g/dL 31.0 - 36.0 [facility] Erythrocyte distribution width [Ratio] by Automated count 14.2 % 11.5 - 14.5 [facility] Platelets [#/volume] in Blood by Automated count 267 10^3/uL 150 - [address] [facility] Platelet mean volume [Entitic volume] in Blood by Automated count 10.9 fL 7.4 - 10.[address] [facility] Neutrophils/100 leukocytes in Blood by Automated count 64.9 % 37. 0 - 80.0 [facility] Lymphocytes/100 leukocytes in Blood by Manual count 26.3 % 25.0 - 40.0 [facility] Monocytes/100 leukocytes in Blood by Automated count 7.8 % 3.0 - 8.0 [facility] Eosinophils/100 leukocytes in Blood by Automated count 0.2 % 0.0 - 7.0 [facility] Basophils/100 leukocytes in Blood by Automated count 0.4 % 0.0 - 2.5 [facility] %IG 0.4 % 0.0 - 0.0 H [facility] 0.0 % 0.0 - 0.0 [facility] al Neutrophils [#/volume] in Blood by Automated count 5.42 10^3/uL 2.00 - 6.90 [facility] Lymphocytes [#/volume] in Blood by Automated count 2.20 10^3/uL 0.60 - 3.40 [facility] Monocytes [#/volume] in Blood by Automated count 0.65 10^3/uL 0.00 - 0.90 [facility] Eosinophils [#/volume] in Blood by Automated count 0.02 10^3/uL 0.00 - 0.70 [facility] Basophils [#/volume] in Blood by Automated count 0.03 10^3/uL 0.00 - 0.20 [facility] #IG 0.03 10^3/uL 0.00 - 0.10 [facility] #NRBC 0.00 10^3/uL 0.00 - 0.00 [facility] MANUAL DIFF NOT INDICATED [facility] RBC MORPH NOT INDICATED [facility] spital ID Date Data Source [id number] 02/16/2020 04:43:[address] [facility] [address] [facility] Emergency Department [address] [place] [address] Phone #: ext- [phone] 02/16/2020 16:35 Patient: NATALIYA BEASLEY Sex: F : 1995 Age: 24yWEIGHT:61.2 kg HEIGHT:62 inches BMI:24.7ALLERGIES: No Known Drug AllergyCHIEF COMPLAINT: abdominal pain, vomiting, nausea, constipationDIAGNOSIS: ProblemLAB ORDERSOrder Description Priority Entered Acknowledged InitialedCBC w Diff STAT 17:02/16/2020 17:17 [facility] Jc Olivera; Axcr4LZI STAT 17:02/16/2020 17:17 [facility] TechJc; Jpmb2Ewsbrw STAT 17:02/16/2020 17:17 [facility] TechJc; Guro8Xysiputomw (Clean STAT 17:05 02/16/2020 Ack'd: 17:26Catch) [facility]O Walter; Jc ER Uubu7Xjlzebnts STAT 17:05 02/16/2020 17:17 [facility] solar installation foreman, Jc CLARK; Pofo4NUSV STAT 17:05 02/16/2020 17:17 [facility] solar installation foreman, Jc CLARK; Tleq3Sfzzkwkoxd (Clean STAT 20:52 02/16/2020 Ack'd: 21:11Catch) Mariano Starks R.N.;Beta- HCG, Qual STAT 20:52 02/16/2020 Ack'd: 21:12Urine Mariano Starks R.N.;DIAGNOSTIC STUDY ORDERSOrder Description Priority Entered Acknowledged InitialedMEDICATION/IV/DRIP/FLUID ORDERSOrder Description Priority Entered Acknowledged Initialed [address] [facility] Emergency Department [address] [place] [address] Phone #: ext- [phone] 02/16/2020 16:35 Patient: NATALIYA BEASLEY Sex: F : 1995 Age: 24yNS IV 1000 mL 17:05 02/16/2020 17:41 Shakila TheaBolus: : Bolus 1000 Nik Swmaryannworth R.N.mL (X1) PA;Zofran IVP 8 mg 17:05 02/16/2020 17:42 Shakila Maria De Jesus Nik Mcleodworth R.N. PA;KCl IVPB 10 18:19 02/16/2020 20:01 Shakila, Theameq/100mL (NOW NikLiveworth R.N.x1) PA;KCl Liquid PO 40 18:19 02/16/2020 18:50 Shakila, Theameq Nik Mcleodworth R.N. PA;Magnesium Sulfate 18:19 02/16/2020 18:49 Shakila, Thea2 g IVPB X1 dose: 2 Nik Swatsworth R.N.gm (HIGH ALERT PA;MEDICATION, X1)Protonix IVPB 40 20:55 02/16/2020 21:17 Darrell Jhaveri with Dextrose Nik Paul R.N.100 ml spike bag PA;(D5W)Zofran IVP 8 mg 20:55 02/16/2020 21:17 Maria De Jesus Jhaveri R.N.;GENERAL ORDERSOrder Description Priority Entered Acknowledged InitialedNPO 17:05 02/16/2020 17:06 Maria De Jesus Jhaveri R.N.;Saline Lock 17:05 02/16/2020 17:41 Maria De Jesus Jhaveri R.N.;[Electronically signed by Nik Paul (21:08 02/16/2020)][Electronically signed by Maria De Jesus Jhaveri R.N. (02/16/2020)][E lectronically locked by Maria De Jesus Jhaveri R.N. (:02/16/2020)] Name Value Range Interpretation Code Description Data Michelle rce(s) Supporting Document(s) ID Date Data Source [id number] 02/16/2020 04:43:[address] [facility] [address] [facility] Emergency Department [address] [place] [address] Phone #: ext- [phone] 02/16/2020 16:35 Patient: [...] rce(s) Supporting Document(s) ID Date Data Source [id number] 02/16/2020 04:43:[address] [facility] [address] [facility] Emergency Department [address] [place] [address] Phone #: ext- [phone] 02/16/2020 16:35 Patient: NATALIYA BEASLEY Sex: F : 1995 Age: 24yWeight: 61.2 kgHeight/Length: 62 inBMI: 24.7ALLERGIES: No Known Drug Allergy Date/Time Medication Administered Medication OrderedStart IV NS W/ BOLUS NS IV 1000 mL Bolus: : Bolus 283805:41 02/16/2020 Dose: IV Fluids mL (X1)Maria De Jesus Jhaveri R.NSveta Rate: 1000 mL/hr over 1 hour(s)---- Dispensed: 1000 mL bagStop Site: #1 right czikwzr45:49 02/16/2020Maria De Jesus Jhaveri R.N.Given ZOFRAN [IVP] (ONDANSETRON HCL) Zofran IVP 8 mg17:42 02/16/2020 Dose: 8 mg IVMaria De Jesus Rodriguez, R.N. Site: #1 right forearmStart KCL [IVPB] KCl IVPB 10 meq/100mL (NOW x1)19:56 02/16/2020 Dose: 10 meq IVPBShakila Maria De Jesus, R.N. Rate: 100 mL/hr over 1 hour(s)---- Dispensed: 100 mL bagStop Site: #1 right floxzxa57:56 02/16/2020Maria De Jesus Jhaveri R.N.Given KCL LIQUID PO KCl Liquid PO 40 meq18:50 02/16/2020 Dose: 40 meq Syrup/Liquid POGlene Maria De Jesus, R.N.Start MAGNESIUM SULFATE [IVPB] Magnesium Sulfate 2 g IVPB X118:49 02/16/2020 Dose: 2 gm IVPB dose: 2 gm (HIGH ALERTMaria De Jesus Jhaveri, R.N. Rate: 2 gm/hr over 1 hour(s) MEDICATION, X1)---- Dispensed: 50 mL bagStop Site: #1 right qurmzns66:51 02/16/2020Maria De Jesus Jhaveri R.N.Start PROTONIX [IVPB] (PANTOPRAZOLE Protonix IVPB 40 mg with21:12 02/16/2020 SODIUM) Dextrose 100 ml spike bag (D5W)Maria De Jesus Jhaveri R.Tana. Dose: 40 mg IVPB---- Rate: 8 mg/hr over 1 hour(s)Stop Dispensed: 100 mL bag21:45 02/16/2020 Site: #1 right forearmMaria De Jesus Jhaveri R.N.Given ZOFRAN [IVP] (ONDANSETRON HCL) Zofran IVP 8 mg21:12 02/16/2020 Dose: 8 mg IVMaria De Jesus Rodriguez, R.N. Site: #1 right forearm Name Value Range Interpretation Code Description Data Michelle rce(s) Supporting Document(s) ID Date Data Source [id number] 02/16/2020 04:43:[address] [facility] [address] [facility] Emergency Department [address] [place] [address] Phone #: ext- [phone] 02/16/2020 16:35 Patient: NATALIYA BEASLEY Sex: F : 1995 Age: 24yHypokalemia; hypomagnesemia.(Electronically signed by EDUARDO Moses 02/16/2020 21:08) Name Value Range Interpretation Code Description Data Michelle rce(s) Supporting Document(s) ID Date Data Source [id number] 02/16/2020 04:43:[address] [facility] 1 Clinical Report - Nurses [facility] Emergency Department [address] [place] [address] Phone #: ext- [phone] 02/16/2020 16:35 Patient: [...] to shake after making this statement to writer editor. ptmucous membranes do appear dry.).Triage time: 16:41 02/16/2020. Acuity: LEVEL 3.Chief Complaint: ABDOMINAL PAIN.Alert.Onset. (four days ago). ( pt states "i am a ten, i don't feel well" for her pain scale.). The patient has hadnausea and vomiting. Last oral intake by patient was (this am-yogurt but reports emesis).Treatment DIGITAL SOLUTION ARCHITECT:None. --16:46 02/16/20 Natividad Felix R.N.16:41 02/16/20. BP: 138/101. HR: 73. RR: 17. O2 saturation: 100%. Temp: 97.2 F. Pain level now 02/24.--16:46 02/16/20 Natividad Felix R.N.Weight: 61.2 kg. Height/Length: 62 inches. BMI: [...] harming or 2 Clinical Report - Nurses [facility] Emergency Department [address] [place] [address] Phone #: ext- [phone] 02/16/2020 16:35 Patient: [...] ( Pt 3 Clinical Report - Nurses [facility] Emergency Department [address] [place] [address] Phone #: ext- [phone] 02/16/2020 16:35 Patient: [...] precautions. Verbalizes 4 Clinical Report - Nurses [facility] Emergency Department [address] [place] [address] Phone #: ext- [phone] 02/16/2020 16:35 Patient: NATALIYA BEASLEY Sex: F : 1995 Age: 24y understanding. --21:17 02/16/20 Maria De Jesus Jhaveri R.N. 21:21 02/16/20. Patient transported to CT by wheelchair with mask and professor of radiology. --21:26 02/16/20 Maria De Jesus Jhaveri R.N. Patient returned from CT by wheelchair with mask and professor of radiology. --21:34 02/16/20 Maria De [...] redness, or swelling. IV flushed thoroughly. --22:19 10/1/20 Maria De Jesus Jhaveri R.N.DISPOSITION / DISCHARGE [...] rce(s) Supporting Document(s) ID Date Data Source [id number] 02/16/2020 04:43:[address] [facility] 1 Clinical Report - Physicians/Mid Levels [facility] Emergency Department [address] [place] [address] Phone #: ext- [phone] 02/16/2020 16:35 Patient: [...] to shake after making this statement to writer editor. pt mucous membranes do appear dry and [...] normal. 2 Clinical Report - Physicians/Mid Levels [facility] Emergency Department [address] [place] [address] Phone #: ext- [phone] 02/16/2020 16:35 Patient: [...] 107) 3 Clinical Report - Physicians/Mid Levels [facility] Emergency Department [address] [place] [address] Phone #: ext- [phone] 02/16/2020 16:35 Patient: [...] mL/min Normal Lipase: (ANGELY: 02/16/2020 17:22) ( [facility] 02/16/2020 18:04) Final results Test Result Flag Units (Reference) LIPASE 15 U/L (13 - 60) Magnesium: (ANGELY: 02/16/2020 17:22) ( [facility] 02/16/2020 18:04) Final results Test Result Flag Units (Reference) MAGNESIUM 1.6 L MG/DL (1.7 - 2.2) ETOH: (ANGELY: 02/16/2020 17:22) ( [facility] 02/16/2020 18:04) Final results Test Result Flag Units (Reference) ALCOHOL <10.0 MG/DL ALCOHOL % 0.00 % (0.00 - 0.01) *FOR MEDICAL PURPOSES ONLY*.PROGRESS AND PROCEDURESCourse of Care: 18:37 Feb 0 2019. Evaluation after observation. (Discussed mag and potassium levelswith Sarah CASIANO DENTAL OFFICE COORDINATOR and she will obs pt. Pt is [...] and 4 Clinical Report - Physicians/Mid Levels [facility] Emergency Department [address] [place] [address] Phone #: ext- [phone] 02/16/2020 16:35 Patient: NATALIYA BEASLEY Sex: F : 1995 Age: 24y need for admission. Patient and mother agrees with plan of care. 18:38 Feb 16 2020. Disposition: Observation in the Acute Inpatient Unit, Monitored. 18:38 Feb 16 2020 Sarah CASIANO DENTAL OFFICE COORDINATOR. UTI (catheter associated) was not present prior [...] rce(s) Supporting Document(s) ID Date Data Source [id number] 02/20/2020 03:47:[address] [facility] Name Value Range Interpretation Code Description Data Michelle rce(s) Supporting Document(s) CULTURE URINE [facility] _CULTURE URINE_$$[id number]$$[id number]$$497843$$679914$$666893$$801703$$961556$$505835$$509094$$ 896361$$070146$$648379$$559398$$423185$$400231$$268738$$702536$$912505$$022114$$ 122806$$435502$$187046$$370446$$870681$$704073$$198301$$[id number] -- Continued on next page --Patient: RITTER NATALIYA Martinez Order: [id number] Page 2Culture: CULTURE URINE Status: Final ==== -- Continued on next page --Patient: RITTER NATALIYA Martinez Order: [id number] Page 2Culture: CULTURE URINE Status: Prelim =====$$[id number]$$[id number] DATE/TIME: 02/20/2020 15:06Culture: CULTURE URINE Status: FinalUrine Culture,Comprehensive: C8Hravv urogenital flora10,000-25,000 colony forming units per mL Previous result entered on 02/19/2020 03:15 ET Specimen has been received and testing has been initiated.P1 Test performed [facility]: [facility]Y #: [id number] [address] [place] [address] [id number] [facility] [id number] Director : Abhilash Hilario MD NPI #:Settlement Clerk : 02/20/20.0635.XMT.SENT REF 02/20/20.1548.XMT.SENT REF 02/20/20.1548.CM .to [facility] via fax ID Date Data Source [id number] 02/16/2020 09:26:[address] [facility] Name Value Range Interpretation Code Description Data Michelle rce(s) Supporting Document(s) [facility]IS [facility] SOURCE R [facility] COL[facility] yellow NORMAL: Yellow [facility] CLARITY clear NORMAL: Clear [facility] Specific gravity of Urine by Test strip 1.010 1.001 - 1.030 [facility] pH 7 5 - 9 [facility] Glucose [Mass/volume] in Urine by Test strip NORM NORMAL: Negat [facility] Bilirubin.total [Presence] in Urine by Test strip NEG NORMAL: Negative [facility] Ketones [Presence] in Urine by Test strip 150 NORMAL: Negative A [facility] Protein [Mass/volume] in Urine by Test strip 30 NORMAL: Negat [facility] Nitrite [Presence] in Urine by Test strip NEG NORMAL: Negative [facility] BLOOD NEG NORMAL: Negative [facility] Leukocyte esterase [Presence] in Urine by Test strip 25 DAYLIN L: Negative [facility] Urobilinogen [Mass/volume] in Urine by Test strip 4 less tito n 1.0 mg/dL [facility] MICROSCOPIC See Below [facility] WBC 0 - 1 NORMAL: NONE SEEN [facility] Erythrocytes [#/volume] in Urine by Test strip 0 - 1 NORMAL: NON E SEEN [facility] EPITHELIAL MANY NORMAL: NONE SEEN A [facility] Bacteria [Presence] in Urine sediment by Light microscopy 2+ MOD NORMAL: NONE SEEN A [facility] ID Date Data Source [id number] 02/16/2020 09:24:[address] [facility] Name Value Range Interpretation Code Description Data Michelle rce(s) Supporting Document(s) HCG URINE QUAL NEGATIVE NORMAL: NEGATIVE [facility] HCG URINE QL REENTER NEGATIVE NORMAL: NEGATIVE [facility] { KIT LOT # [id number] ){ KIT EXP DATE 02/20/21 ){ PROCEDURAL CONTROL VALID ) ID Date Data Source [id number] 02/16/2020 09:22:[address] [facility] Name Value Range Interpretation Code Description Data Michelle rce(s) Supporting Document(s) HCG SERUM QUAL NEGATIVE NORMAL: NEGATIVE [facility] HCG SERUM QL REENTER NEGATIVE NORMAL: NEGATIVE [facility] { KIT LOT # [id number] ){ KIT EXP DATE 02.20.21 ){ PROCEDURAL CONTROL VALID ) ID Date Data Source [id number] 02/16/2020 06:04:[address] [facility] Name Value Range Interpretation Code Description Data Michelle rce(s) Supporting Document(s) Ethanol [Moles/volume] in Blood <10.0 MG/DL [facility] ALCOHOL % 0.00 % 0.00 - 0.01 [facility] *FOR MEDICAL PURPOSES ONLY * ID Date Data Source [id number] 02/16/2020 06:04:[address] [facility] Name Value Range Interpretation Code Description Data Michelle rce(s) Supporting Document(s) Magnesium [Mass/volume] in Serum or Plasma 1.6 MG/DL 1.7 - 2.[address] [facility] ID Date Data Source [id number] 02/16/2020 06:04:[address] [facility] Name Value Range Interpretation Code Description Data Michelle rce(s) Supporting Document(s) Lipase [Enzymatic activity/volume] in Serum or Plasma 15 U/L 13 - 60 [facility] ID Date Data Source [id number] 02/16/2020 06:00:[address] [facility] Name Value Range Interpretation Code Description Data Michelle rce(s) Supporting Document(s) COMPREHENSIVE METABOLIC PANEL [facility] COMPREHENSIVE METABOLIC PANEL Sodium [Moles/volume] in Serum or Plasma 141 mEq/L 134 - 153 [facility] Potassium [Moles/volume] in Serum or Plasma 2.6 mEq/L 3.6 - 5.[address] [facility] CALL/ READ BACK BEN IN ER [facility] BY: CD [facility] DATE/TIME 02.16.201801 [facility] spital Chloride [Moles/volume] in Serum or Plasma 95 mEq/L 98 - [address] [facility] Carbon dioxide, total [Moles/volume] in Serum or Plasma 28 MEQ/L 22 - 30 [facility] Glucose [Mass/volume] in Serum or Plasma 108 MG/DL 65 - 110 [facility] BUN 17 MG/DL 7 - 21 [facility] al Creatinine [Mass/volume] in Serum or Plasma 0.6 MG/DL 0.7 - 1.[address] [facility] BUN/CREAT 28 8 - 27 H [facility] al Protein [Mass/volume] in Serum or Plasma 8.3 G/DL 6.3 - 8.[address] [facility] Albumin [Mass/volume] in Serum or Plasma 5.3 G/DL 3.9 - 5.[address] [facility] Globulin [Mass/volume] in Serum by calculation 3.0 GM/DL 2.4 - 3.2 [facility] A/G RATIO 1.8 0.8 - 2.0 [facility] Calcium [Mass/volume] in Serum or Plasma 10.3 MG/DL 8.4 - 10.[address] [facility] Bilirubin.total [Mass/volume] in Serum or Plasma 0.9 MG/DL 0.2 - 1.3 [facility] Alkaline phosphatase [Enzymatic activity/volume] in Serum or Plasma 71 U/L 38 - 126 [facility] Aspartate aminotransferase [Enzymatic activity/volume] in Serum or Plasma 36 U/L 5 - 40 [facility] Alanine aminotransferase [Enzymatic activity/volume] in Seru m or Plasma 63 U/L 7 - [address] [facility] Anion gap 3 in Serum or Plasma 18.0 mmol/L 8.0 - 16.[address] [facility] AGE 24 yrs [facility] NON-AA GFR >60 mL/min [facility] ital AFR AMER GFR >60 mL/min [facility] Male GFR In terprentation [...] >32 mL/min Normal ID Date Data Source [id number] 02/16/2020 05:38:[address] [facility] Name Value Range Interpretation Code Description Data Michelle rce(s) Supporting Document(s) CBC W/AUTOMATED DIFF [facility] COMPLETE BLOOD COUNT Leukocytes [#/volume] in Blood by Automated count 10.4 10^3/uL 4.2 - 11.0 [facility] Erythrocytes [#/volume] in Blood by Automated count 4.60 10^6/uL 4. 20 - 5.40 [facility] Hemoglobin [Mass/volume] in Blood 12.6 g/dL 12.0 - 16.0 [facility] Hematocrit [Volume Fraction] of Blood by Automated count 37.9 % 3 7.0 - 47.0 [facility] Erythrocyte mean corpuscular volume [Entitic volume] by Auto mated count 82.4 fL 81.0 - 101 [facility] Erythrocyte mean corpuscular hemoglobin [Entitic mass] by Automated count 27.4 pg 27.0 - 34.0 [facility] Erythrocyte mean corpuscular hemoglobin concentration [Mass/volume] by Automated count 33.2 g/dL 31.0 - 36.0 [facility] Erythrocyte distribution width [Ratio] by Automated count 13.8 % 11.5 - 14.5 [facility] Platelets [#/volume] in Blood by Automated count 360 10^3/uL 150 - [address] [facility] Platelet mean volume [Entitic volume] in Blood by Automated count 10.7 fL 7.4 - 10.[address] [facility] Neutrophils/100 leukocytes in Blood by Automated count 77.0 % 37. 0 - 80.0 [facility] Lymphocytes/100 leukocytes in Blood by Manual count 14.3 % 25.0 - 40.[address] [facility] Monocytes/100 leukocytes in Blood by Automated count 8.0 % 3.0 - 8.0 [facility] Eosinophils/100 leukocytes in Blood by Automated count 0.0 % 0.0 - 7.0 [facility] Basophils/100 leukocytes in Blood by Automated count 0.2 % 0.0 - 2.5 [facility] %IG 0.5 % 0.0 - 0.0 [facility] %NRBC 0.0 % 0.0 - 0.0 [facility] Neutrophils [#/volume] in Blood by Automated count 7.98 10^3/uL 2.00 - 6.[address] [facility] Lymphocytes [#/volume] in Blood by Automated count 1.48 10^3/uL 0.60 - 3.40 [facility] Monocytes [#/volume] in Blood by Automated count 0.83 10^3/uL 0.00 - 0.90 [facility] Eosinophils [#/volume] in Blood by Automated count 0.00 10^3/uL 0.00 - 0.70 [facility] Basophils [#/volume] in Blood by Automated count 0.02 10^3/uL 0.00 - 0.20 [facility] #IG 0.05 10^3/uL 0.00 - 0.10 [facility] ospital #NRBC 0.00 10^3/uL 0.00 - 0.00 [facility] MANUAL DIFF NOT INDICATED [facility] RBC MORPH NOT INDICATED [facility] ID Date Data Source [id number] 01/19/2020 08:44:00 AM EDT [facility] Name Value Range Interpretation Code Description Data Michelle rce(s) Supporting Document(s) HCT 28.4 % 36.0-47.0 L [facility] HGB 9.3 g/dL 12.0-15.5 L [facility] MCH 32.7 G/DL pg 32.0-36.5 N [facility] MCHC 31.1 PG % 27.0-33.0 [facility] PLATELETS 164 10 10*3/mm3 150-450 N [facility] RBC 2.99 10 10*6/mm3 4.00-5.40 L [facility] RDW 13.2 % 11.5-14.5 [facility] WBC TOTAL 7.3 4.0-10.0 N [facility] ID Date Data Source [id number] 01/19/2020 08:44:00 AM EDT [facility] Name Value Range Interpretation Code Description Data Michelle rce(s) Supporting Document(s) BG FASTING 108 mg/dL 70-[address] [facility] ID Date Data Source [id number] 01/18/2020 04:42:00 AM EDT [facility] 27.49.233.6 G/DL31.4 PG183 102.93 1013.9 9.8 98 30.810.433.8 G/DL31.6 PG176 103.29 1013. 410.7 109 Name Value Range Interpretation Code Description Data Michelle rce(s) Supporting Document(s) ID Date Data Source [id number] 01/18/2020 04:42:00 AM EDT [facility] 27.49.233.6 G/DL31.4 PG183 102.93 1013.9 9.8 98 30.810.433.8 G/DL31.6 PG176 103.29 1013. 410.7 109 Name Value Range Interpretation Code Description Data Michelle rce(s) Supporting Document(s) ID Date Data Source [id number] 01/17/2020 07:33:00 PM EDT [facility] 27.49.233.6 G/DL31.4 PG183 102.93 1013.9 9.8 98 30.810.433.8 G/DL31.6 PG176 103.29 1013. 410.7 109 Name Value Range Interpretation Code Description Data Michelle rce(s) Supporting Document(s) ID Date Data Source [id number] 01/17/2020 07:33:00 PM EDT [facility] 27.49.233.6 G/DL31.4 PG183 102.93 1013.9 9.8 98 30.810.433.8 G/DL31.6 PG176 103.29 1013. 410.7 109 Name Value Range Interpretation Code Description Data Michelle rce(s) Supporting Document(s) ID Date Data Source [id number] 12/27/2019 03:38:[address] [facility] Name Value Range Interpretation Code Description Data Michelle rce(s) Supporting Document(s) Potassium [Moles/volume] in Serum or Plasma 3.6 mEq/L 3.6 - 5.0 [facility] ID Date Data Source [id number] 12/27/2019 07:03:[address] [facility] Name Value Range Interpretation Code Description Data [facility] rce(s) Supporting Document(s) COMPREHENSIVE METABOLIC PANEL [facility] COMPREHENSIVE METABOLIC PANEL Sodium [Moles/volume] in Serum or Plasma 137 mEq/L 134 - 153 [facility] Potassium [Moles/volume] in Serum or Plasma 3.2 mEq/L 3.6 - 5.[address] [facility] Chloride [Moles/volume] in Serum or Plasma 101 mEq/L 98 - 107 [facility] Carbon dioxide, total [Moles/volume] in Serum or Plasma 27 MEQ/L 22 - 30 [facility] Glucose [Mass/volume] in Serum or Plasma 91 MG/DL 65 - 110 [facility] BUN 9 MG/DL 7 - 21 [facility] Creatinine [Mass/volume] in Serum or Plasma 0.5 MG/DL 0.7 - 1.[address] [facility] BUN/CREAT 18 8 - 27 [facility] Protein [Mass/volume] in Serum or Plasma 6.0 G/DL 6.3 - 8.[address] [facility] Albumin [Mass/volume] in Serum or Plasma 3.9 G/DL 3.9 - 5.0 [facility] Globulin [Mass/volume] in Serum by calculation 2.1 GM/DL 2.4 - 3.[address] [facility] A/G RATIO 1.9 0.8 - 2.0 [facility] Calcium [Mass/volume] in Serum or Plasma 8.8 MG/DL 8.4 - 10.2 [facility] Bilirubin.total [Mass/volume] in Serum or Plasma 1.4 MG/DL 0.2 - 1.[address] [facility] Alkaline phosphatase [Enzymatic activity/volume] in Serum or Plasma 49 U/L 38 - 126 [facility] Aspartate aminotransferase [Enzymatic activity/volume] in Serum or Plasma 32 U/L 5 - 40 [facility] Alanine aminotransferase [Enzymatic activity/volume] in Seru m or Plasma 33 U/L 7 - 56 [facility] Anion gap 3 in Serum or Plasma 9.0 mmol/L 8.0 - 16.0 [facility] AGE 24 yrs [facility] Hospit al NON-AA GFR >60 mL/min [facility] Hosp ital AFR AMER GFR >60 mL/min [facility] Ho spital Male GFR In terprentation [...] >32 mL/min Normal ID Date Data Source [id number] 12/27/2019 06:51:[address] [facility] Name Value Range Interpretation Code Description Data Michelle rce(s) Supporting Document(s) Magnesium [Mass/volume] in Serum or Plasma 2.1 MG/DL 1.7 - 2.2 [facility] ID Date Data Source [id number] 12/27/2019 06:43:[address] [facility] Name Value Range Interpretation Code Description Data Michelle rce(s) Supporting Document(s) CBC W/AUTOMATED DIFF [facility] COMPLETE BLOOD COUNT Leukocytes [#/volume] in Blood by Automated count 8.3 10^3/uL 4.2 - [address] [facility] Erythrocytes [#/volume] in Blood by Automated count 4.06 10^6/uL 4. 20 - 5.[address] [facility] Hemoglobin [Mass/volume] in Blood 12.7 g/dL 12.0 - 16.0 [facility] Hematocrit [Volume Fraction] of Blood by Automated count 37.3 % 3 7.0 - 47.0 [facility] Erythrocyte mean corpuscular volume [Entitic volume] by Auto mated count 91.9 fL 81.0 - 101 [facility] Erythrocyte mean corpuscular hemoglobin [Entitic mass] by Automated count 31.3 pg 27.0 - 34.0 [facility] Erythrocyte mean corpuscular hemoglobin concentration [Mass/volume] by Automated count 34.0 g/dL 31.0 - 36.0 [facility] Erythrocyte distribution width [Ratio] by Automated count 12.5 % 11.5 - 14.5 [facility] Platelets [#/volume] in Blood by Automated count 231 10^3/uL 150 - [address] [facility] Platelet mean volume [Entitic volume] in Blood by Automated count 10.2 fL 7.4 - 10.4 [facility] Neutrophils/100 leukocytes in Blood by Automated count 65.2 % 37. 0 - 80.0 [facility] Lymphocytes/100 leukocytes in Blood by Manual count 25.2 % 25.0 - 40.0 [facility] Monocytes/100 leukocytes in Blood by Automated count 8.8 % 3.0 - 8.[address] [facility] Eosinophils/100 leukocytes in Blood by Automated count 0.2 % 0.0 - 7.0 [facility] Basophils/100 leukocytes in Blood by Automated count 0.2 % 0.0 - 2.5 [facility] %IG 0.4 % 0.0 - 0.0 [facility] 0.0 % 0.0 - 0.0 [facility] al Neutrophils [#/volume] in Blood by Automated count 5.41 10^3/uL 2.00 - 6.90 [facility] Lymphocytes [#/volume] in Blood by Automated count 2.09 10^3/uL 0.60 - 3.40 [facility] Monocytes [#/volume] in Blood by Automated count 0.73 10^3/uL 0.00 - 0.90 [facility] Eosinophils [#/volume] in Blood by Automated count 0.02 10^3/uL 0.00 - 0.70 [facility] Basophils [#/volume] in Blood by Automated count 0.02 10^3/uL 0.00 - 0.20 [facility] #IG 0.03 10^3/uL 0.00 - 0.10 [facility] H ospital #NRBC 0.00 10^3/uL 0.00 - 0.00 [facility] MANUAL DIFF NOT INDICATED [facility] RBC MORPH NOT INDICATED [facility] spital ID Date Data Source [id number] 12/26/2019 10:41:00 [place] [address] RESPIRATORY CARE REPORT ==== ---------NAME------- NUMBER SEX AGE ADMIT DISC. XRAY# F/C JOSS Martinez [id number] F 24 12/26/19 [id number] X6B O/P DATE OF : 1995 M/R# [id number] #: [id number] LOCATION: EMERGENCY DEPT EKG [id number] COMP LETE:12/26/19 14:18 EWW [id number] PHYSICIAN: CLAUDIO PAUL Name Value Range Interpretation Code Description Data Michelle rce(s) Supporting Document(s) ID Date Data Source [id number] 12/26/2019 10:59:[address] [facility] [address] [facility] Emergency Department [address] [place] [address] Phone #: ext- [phone] 12/26/2019 10:40 Patient: NATALIYA BEASLEY Sex: F : 1995 Age: 24yWEIGHT:58.9 kg (S) HEIGHT:64 inches (S) BMI:22.3ALLERGIES: Sulfa AntibioticsCHIEF COMPLAINT: abdominal painDIAGNOSIS: ProblemLAB ORDERSOrder Description Priority Entered Acknowledged InitialedCBC w Diff STAT 11:03 12/26/2019 11:22 Nik Quiles R.N.;CMP STAT 11:12/26/2019 11:22 Nik Quiles R.N.;Urinalysis (Clean STAT 11:03 12/26/2019 Ack'd: 11:22 13:38 Etta,Catch) Zakiya Campa R.N.; R.N.Beta-HCG, Qual STAT 11:12/26/2019 11:22 Etta,Urine Nik CLARK;Troponin-T STAT 11:03 12/26/2019 11:22 Nik Quiles R.N.;Magnesium STAT 11:03 12/26/2019 11:22 Nik Quiles R.N.;CMP STAT 13:29 12/26/2019 Ack'd: 13:30 13:35 Nik Quiles Laura Laura R.N. PA; R.N. NOTES: re-draw and repeat pleaseDIAGNOSTIC STUDY ORDERSOrder Description Priority Entered Acknowledged InitialedMEDICATION/IV/DRIP/FLUID ORDERSOrder Description Priority Entered Acknowledged InitialedLR IV : Bolus 1000 11:03 12/26/2019 11:22 Etta, [address] [facility] Emergency Department [address] [place] [address] Phone #: ext- [phone] 12/26/2019 10:40 Patient: NATALIYA BEASLEY Sex: F : 1995 Age: 24ymL, then 150 mL/hr Nik CLARK;KCl Liquid PO 40 12:06 12/26/2019 12:18 Jenifferaragno,meq Nik CLARK;KCl IVPB 10 12:06 12/26/2019 12:18 Melaragno,meq/100mL Nik CLARK;Zofran ODT PO 8 12:09 12/26/2019 12:15 Etta,mg Nik CLARK;Magnesium Sulfate 12:18 12/26/2019 12:29 Jenifferaragno,2 g IVPB X1 dose: 2 Nik Sigala R.N.gm (HIGH ALERT PA;MEDICATION, X1)KCl Liquid PO 40 14:54 12/26/2019 15:05 Melaragno,meq iNk CLARK;KCl IVPB 10 14:54 12/26/2019 15:06 Melaragno,meq/100mL [...] rce(s) Supporting Document(s) ID Date Data Source [id number] 12/26/2019 10:59:[address] [facility] [address] [facility] Emergency Department [address] [place] [address] Phone #: ext- [phone] 12/26/2019 10:40 Patient: [...] rce(s) Supporting Document(s) ID Date Data Source [id number] 12/26/2019 10:59:[address] [facility] [address] [facility] Emergency Department [address] [place] [address] Phone #: ext- [phone] 12/26/2019 10:40 Patient: NATALIYA BEASLEY Sex: F : 1995 Age: 24yWeight: 58.9 kgHeight/Length: 64 inBMI: 22.3ALLERGIES: Sulfa Antibiotics Date/Time Medication Administered Medication OrderedStart LR [IV] LR IV : Bolus 1000 mL, then 26281:22 12/26/2019 Dose: IV Fluids mL/hrZakiya Quiles, R.N. Bolus: 1000 mL wide open---- Dispensed: 1000 mL bagStop Site: #1 left AC16:30 12/26/2019Zakiya Quiles R.NSvetaGiven KCL LIQUID PO KCl Liquid PO 40 meq12:18 12/26/2019 Dose: 40 meq Zakiya Mary R.NSvetaStart KCL [IVPB] KCl IVPB 10 meq/658vJ63:15 12/26/2019 Dose: 10 meq IVPBZakiya Quiles, R.N. Rate: 100 mL/hr over 60 minute(s)---- Dispensed: 100 mL bagStop Site: #1 left AC13:54 12/26/2019Alexia Kemp R.N.Given ZOFRAN ODT [PO] (ONDANSETRON Zofran ODT PO 8 mg12:15 12/26/2019 HCL)Zakiya Quiles R.N. Dose: 8 mg POStart MAGNESIUM SULFATE [IVPB] Magnesium Sulfate 2 g IVPB X112:29 12/26/2019 Dose: 2 gm IVPB dose: 2 gm (HIGH ALERTZakiya Quiles, R.N. Rate: 50 mL/hr over 1 hour(s) MEDICATION, X1)---- Dispensed: 50 mL bagStop Site: #1 left AC13:54 12/26/2019Alexia Kemp RPuraGiven KCL LIQUID PO KCl Liquid PO 40 meq15:05 12/26/2019 Dose: 40 meq Zakiya Mary RPuraStart KCL [IVPB] KCl IVPB 10 meq/915zI91:06 12/26/2019 Dose: 10 meq IVPBZakiya Quiles RPura Rate: 100 mL/hr over 1 hour(s)---- Dispensed: 100 mL bagStop Site: #1 left AC16:11 12/26/2019Zakiya Quiles R.NSvetaGiven ZOFRAN [IVP] (ONDANSETRON HCL) Zofran IVP 8 mg15:36 12/26/2019 Dose: 8 mg IVPRoAlexia ivey RSvetaNSveta Site: #1 left AC Name Value Range Interpretation Code Description Data Michelle e(s) Supporting Document(s) ID Date Data Source [id number] 12/26/2019 10:59:[address] [facility] [address] [facility] Emergency Department [address] [place] [address] Phone #: ext- [phone] 12/26/2019 10:40 Patient: NATALIYA BEASLEY Sex: F : 1995 Age: 24yHypokalemia.(Electronically signed by EDUARDO Moses 12/26/2019 21:44) Name Value Range Interpretation Code Description Data Michelle rce(s) Supporting Document(s) ID Date Data Source [id number] 12/26/2019 10:59:[address] [facility] 1 Clinical Report - Nurses [facility] Emergency Department [address] [place] [address] Phone #: ext- [phone] 12/26/2019 10:40 Patient: [...] pain, pt also voicescramps in her hands).Treatment DIGITAL SOLUTION ARCHITECT:None.SEPSIS SCREEN: SIRS Screen negative. Sepsis Screen negative. [...] to Coronavirus. 2 Clinical Report - Nurses [facility] Emergency Department [address] [place] [address] Phone #: ext- [phone] 12/26/2019 10:40 Patient: [...] Quiles R.N. 3 Clinical Report - Nurses [facility] Emergency Department [address] [place] [address] Phone #: ext- [phone] 12/26/2019 10:40 Patient: NATALIYA BEASLEY Sex: F [...] relayed by Davida Velez (late entry - 12:12/26/2019). Critical value received by Farzad Branham (late entry - 12:12/26/2019). K: 2.9. Critical value read back. Verified lab result and patient ID.PA notifed of critical value (Amy CLARK). --12:05 12/26/19 Mandy Alvarez R.N.12:15 12/26/2019 Zofran ODT (Ondansetron HCl) PO 8 mg [...] post-medication administration. Information reviewedwith patient. Verbalizes understanding. --12:18 12/26/19 Zakiya Quiles R.N.12:18 12/26/2019 KCL LIQUID PO PO 40 meq given. Allergies verified and confirmed 5 rights. Informationreviewed with patient. Verbalizes understanding. --12:12/26/19 Zakiya Quiels R.N.The patient is calm and resting quietly. Overall patient status is the same- she states feels the same.--12:12/26/19 Zakiya Quiles R.N.12:19 12/26/19. BP: 116/80. MAP: 92. HR: 79. RR: 18. O2 saturation: 99% on room air. Temp: 97.9 F.--12:12/26/19 Zakiya Quiles R.N.12:29 12/26/2019 Started 2 gm of Magnesium Sulfate IVPB [...] infused: 1000. 4 Clinical Report - Nurses [facility] Emergency Department [address] [place] [address] Phone #: ext- [phone] 12/26/2019 10:40 Patient: [...] 18. O2 saturation: 99%. Temp: 98.3 F. --15:12/26/19 Zakiya Quiles R.N. 15:36 12/26/2019 Zofran (Ondansetron [...] Quiles R.N. 5 Clinical Report - Nurses [facility] Emergency Department [address] [place] [address] Phone #: ext- [phone] 12/26/2019 10:40 Patient: NATALIYA BEASLEY [place] Llct#: [id number] Sex: F : 1995 Age: 24yLocked/Released at 12/26/2019 16:39 by Zakiya Quiles R.N. Name Value Range Interpretation Code Description Data Michelle rce(s) Supporting Document(s) ID Date Data Source [id number] 12/26/2019 10:59:[address] [facility] 1 Clinical Report - Physicians/Mid Levels [facility] Emergency Department [address] [place] [address] Phone #: ext- [phone] 12/26/2019 10:40 Patient: [...] Antibiotics. 2 Clinical Report - Physicians/Mid Levels [facility] Emergency Department [address] [place] [address] Phone #: ext- [phone] 12/26/2019 10:40 Patient: NATALIYA BEASLEY Sex: F : 1995 Age: 24ySOCIAL HISTORYNever smoker. Occasional alcohol use. History of drug use: marijuana. Recently used drugs yesterday.ADDITIONAL NOTESThe nursing notes have been reviewed.PHYSICAL EXAMVital Signs: 12/26/2019 10:42 BP: 128/92. MAP: 104. HR: 73. RR: 16. O2 saturation: 99% on room air.Temp: 97 F. Pain level now: 9/10. Have been reviewed and appear to be [...] (3.6 - 5.0) CALL/ READ BACK [employer] BY: LINDA DATE/TIME [id number] CHLORIDE 86 L mEq/L (98 - 107) [...] 1.3) 3 Clinical Report - Physicians/Mid Levels [facility] Emergency Department [address] [place] [address] Phone #: ext- [phone] 12/26/2019 10:40 Patient: NATALIYA BEASLEY Sex: F : 1995 Age: 24y ALKALINE PHOS 63 U/L (38 - 126) SGOT/AST 16 U/L (5 - 40) SGPT/ALT 16 U/L (7 - 56) ANION GAP 19.0 H mmol/L (8.0 - 16.0) AGE 24 yrs NON- AA GFR >60 mL/min AFR AMER GFR >60 mL/min Male GFR Interprentation 20-49 yrs >60 mL/min Vxhwhf84-40 yrs >56 mL/min Normal 60-69 yrs >49 mL/min Normal 70-79yrs>42 mL/min Normal 80 and above >35 mL/min Normal Female GFRInterpretation 20-39 yrs >60 mL/min Normal 40-49 yrs >58 mL/minNormal 50-59 yrs >51 mL/min Normal 60-69 yrs >45 mL/min Jfutii03-44 yrs >39 mL/min Normal 80 and above [...] TO RUSTY BY: OSMANI DATE/TIME 12/26/19 @ [id number] 4 Clinic al Report - Physicians/Mid Levels [facility] Emergency Department [address] [place] [address] Phone #: ext- [phone] 12/26/2019 10:40 Patient: [...] Male GFR Interprentation 20-49 yrs >60 mL/min Kbegyd10-43 yrs >56 mL/min Normal 60-69 yrs >49 mL/min Normal 70-79yrs>42 mL/min Normal 80 and above >35 mL/min Normal Female GFRInterpretation 20-39 yrs >60 mL/min Normal 40-49 yrs >58 mL/minNormal 50-59 yrs >51 mL/min Normal 60-69 yrs >45 mL/min Putafr83- 79 yrs >39 mL/min Normal 80 and above >32 mL/min NormalUrinalysis: (ANGELY: 12/26/2019 13:00) ( [facility] 12/26/2019 14:21) Final results Test Result Flag [...] NoneBeta-HCG, Qual Urine: (ANGELY: 12/26/2019 13:00) ( [facility] 12/26/2019 14:22) Final results Test Result Flag Units (Reference) HCG URINE QUAL NEGATIVE (NORMAL: NEGAT HCG URINE QL REENTER NEGATIVE (NORMAL: NEGAT { KIT LOT # [id number] ){ KIT EXP DATE02.27.21 ){ PROCEDURAL CONTROL VALID) 5 Clinical Report - Physicians/Mid Levels [facility] Emergency Department [address] [place] [address] Phone #: ext- [phone] 12/26/2019 10:40 Patient: NATALIYA BEASLEY Sex: F : 1995 Age: 24y Troponin-T: (ANGELY: 12/26/2019 11:10) ( [facility] 12/26/2019 11:48) Final results Test Result Flag Units (Reference) TROPONIN T <0.01 NG/ML (0.00 - 0.10) TROPONIN T0.1 ng/ml Recommended as the clinical threshold value forTroponin T. Magnesium: (ANGELY: 12/26/2019 11:10) ( [facility] 12/26/2019 12:04) Final results Test Result Flag Units (Reference) MAGNESIUM 1.5 L MG/DL (1.7 - 2.2) EKG: (ANGELY: 12/26/2019 11:03) ( [facility] 12/26/2019 14:34) In Progress.PROGRESS AND PROCEDURESCourse of Care: 15:Dec 26 2019. Evaluation after observation and results of tests back. (Donna/Karlie CASIANO DENTAL OFFICE COORDINATOR and she will admit pt to obs to correct K. Pt is agreeable with dx and tx plan.). Patient counseled in person regarding the patient's stable but serious condition, test results, diagnosis and need for admission. Patient agrees with plan of care. 15:18 Dec 26 2019. Disposition: Observation in the Acute Inpatient Unit, Monitored. 15:Dec 26 2019 Sarah CASIANO DENTAL OFFICE COORDINATOR. UTI (catheter associated) was not present prior [...] rce(s) Supporting Document(s) ID Date Data Source [id number] 12/26/2019 04:05:[address] [facility] Name Value Range Interpretation Code Description Data Michelle rce(s) Supporting Document(s) BASIC METABOLIC PANEL [facility] BASIC METABOLIC PANEL Sodium [Moles/volume] in Serum or Plasma 134 mEq/L 134 - 153 [facility] Potassium [Moles/volume] in Serum or Plasma 3.0 mEq/L 3.6 - 5.[address] [facility] Chloride [Moles/volume] in Serum or Plasma 88 mEq/L 98 - [address] [facility] Carbon dioxide, total [Moles/volume] in Serum or Plasma 29 MEQ/L 22 - 30 [facility] Glucose [Mass/volume] in Serum or Plasma 106 MG/DL 65 - 110 [facility] BUN 14 MG/DL 7 - 21 [facility] al Creatinine [Mass/volume] in Serum or Plasma 0.8 MG/DL 0.7 - 1.5 [facility] BUN/CREAT 18 8 - 27 [facility] Calcium [Mass/volume] in Serum or Plasma 9.7 MG/DL 8.4 - 10.2 [facility] Anion gap 3 in Serum or Plasma 17.0 mmol/L 8.0 - 16.[address] [facility] AGE 24 yrs [facility] al AFR AMER GFR >60 mL/min [facility] Ho spital NON-AA GFR >60 mL/min [facility] ital Male GFR Inter prentation 20-49 [...] >32 mL/min Normal ID Date Data Source [id number] 12/26/2019 02:24:[address] [facility] Name Value Range Interpretation Code Description Data Michelle rce(s) Supporting Document(s) COMPREHENSIVE METABOLIC PANEL [facility] COMPREHENSIVE METABOLIC PANEL Sodium [Moles/volume] in Serum or Plasma 132 mEq/L 134 - [address] [facility] Potassium [Moles/volume] in Serum or Plasma 2.9 mEq/L 3.6 - 5.[address] [facility] CALL/ READ BACK [employer] [facility] BY: LINDA [facility] al DATE/TIME [id number] [facility] ital Chloride [Moles/volume] in Serum or Plasma 86 mEq/L 98 - [address] [facility] Carbon dioxide, total [Moles/volume] in Serum or Plasma 27 MEQ/L 22 - 30 [facility] Glucose [Mass/volume] in Serum or Plasma 118 MG/DL 65 - [address] [facility] BUN 15 MG/DL 7 - 21 [facility] al Creatinine [Mass/volume] in Serum or Plasma 0.7 MG/DL 0.7 - 1.5 [facility] BUN/CREAT 21 8 - 27 [facility] Protein [Mass/volume] in Serum or Plasma 7.7 G/DL 6.3 - 8.2 [facility] Albumin [Mass/volume] in Serum or Plasma 5.0 G/DL 3.9 - 5.0 [facility] Globulin [Mass/volume] in Serum by calculation 2.7 GM/DL 2.4 - 3.2 [facility] A/G RATIO 1.9 0.8 - 2.0 [facility] Calcium [Mass/volume] in Serum or Plasma 10.2 MG/DL 8.4 - 10.2 [facility] Bilirubin.total [Mass/volume] in Serum or Plasma 1.4 MG/DL 0.2 - 1.[address] [facility] Alkaline phosphatase [Enzymatic activity/volume] in Serum or Plasma 63 U/L 38 - 126 [facility] Aspartate aminotransferase [Enzymatic activity/volume] in Serum or Plasma 16 U/L 5 - 40 [facility] Alanine aminotransferase [Enzymatic activity/volume] in Seru m or Plasma 16 U/L 7 - 56 [facility] Anion gap 3 in Serum or Plasma 19.0 mmol/L 8.0 - 16.[address] [facility] AGE 24 yrs [facility] al NON-AA GFR >60 mL/min [facility] ital AFR AMER GFR >60 mL/min [facility] Ho spital Male GFR In terprentation [...] >32 mL/min Normal ID Date Data Source [id number] 12/26/2019 03:36:[address] [facility] Name Value Range Interpretation Code Description Data Michelle rce(s) Supporting Document(s) [facility]IS [facility] S[facility] R [facility] COL[facility] yellow NORMAL: Yellow [facility]sp[facility] CLARITY Clear NORMAL: Clear [facility] Ho spital Specific gravity of Urine by Test strip 1.010 1.001 - 1.030 [facility] pH 8 5 - 9 [facility] Glucose [Mass/volume] in Urine by Test strip NORM NORMAL: Negat [facility] Bilirubin.total [Presence] in Urine by Test strip NEG NORMAL: Negative [facility] Ketones [Presence] in Urine by Test strip 15 NORMAL: Negative [facility] Protein [Mass/volume] in Urine by Test strip 15 NORMAL: Negat [facility] Nitrite [Presence] in Urine by Test strip NEG NORMAL: Negative [facility] BLOOD NEG NORMAL: Negative [facility] Leukocyte esterase [Presence] in Urine by Test strip 25 DAYLIN L: Negative [facility] Urobilinogen [Mass/volume] in Urine by Test strip 1 less tito n 1.0 mg/dL [facility] MICROSCOPIC See Below [facility] ital WBC 3 - 5 NORMAL: NONE SEEN [facility] Erythrocytes [#/volume] in Urine by Test strip 0 - 1 NORMAL: NON E SEEN [facility] EPITHELIAL MANY NORMAL: NONE SEEN A [facility] Bacteria [Presence] in Urine sediment by Light microscopy Tr laura NORMAL: NONE SEEN [facility] Mucus [Presence] in Urine sediment by Light microscopy 2+ NOR MAL: NONE SEEN A [facility] Casts [#/area] in Urine sediment by Microscopy low power field See Be low [facility] Hyaline casts [#/area] in Urine sediment by Microscopy low p ower field 1-3 NORMAL: None Seen A [facility] ID Date Data Source [id number] 12/26/2019 02:21:[address] [facility] Name Value Range Interpretation Code Description Data Michelle rce(s) Supporting Document(s) HCG URINE QUAL NEGATIVE NORMAL: NEGATIVE [facility] HCG URINE QL REENTER NEGATIVE NORMAL: NEGATIVE [facility] { KIT LOT # [id number] ){ KIT EXP DATE 02.27.21 ){ PROCEDURAL CONTROL VALID ) ID Date Data Source [id number] 12/26/2019 05:19:[address] [facility] Name Value Range Interpretation Code Description Data Michelle rce(s) Supporting Document(s) Folate [Mass/volume] in Serum or Plasma 14.6 NG/ML 5.0 - 27.2 [facility] ID Date Data Source [id number] 12/26/2019 12:03:[address] [facility] Name Value Range Interpretation Code Description Data Michelle rce(s) Supporting Document(s) Magnesium [Mass/volume] in Serum or Plasma 1.5 MG/DL 1.7 - 2.[address] [facility] ID Date Data Source [id number] 12/26/2019 12:01:[address] [facility] Name Value Range Interpretation Code Description Data Michelle rce(s) Supporting Document(s) COMPREHENSIVE METABOLIC PANEL [facility] COMPREHENSIVE METABOLIC PANEL Sodium [Moles/volume] in Serum or Plasma 134 mEq/L 134 - 153 [facility] Potassium [Moles/volume] in Serum or Plasma 2.9 mEq/L 3.6 - 5.0 [facility] CALL/ READ BACK CALLED TO [facility] BY: OSMANI [facility] Hospit al DATE/TIME 12/26/[address] [facility] Chloride [Moles/volume] in Serum or Plasma 82 mEq/L 98 - [address] [facility] Carbon dioxide, total [Moles/volume] in Serum or Plasma 28 MEQ/L 22 - 30 [facility] Glucose [Mass/volume] in Serum or Plasma 120 MG/DL 65 - [address] [facility] BUN 19 MG/DL 7 - 21 [facility] al Creatinine [Mass/volume] in Serum or Plasma 0.9 MG/DL 0.7 - 1.5 [facility] BUN/CREAT 21 8 - 27 [facility] al Protein [Mass/volume] in Serum or Plasma 8.1 G/DL 6.3 - 8.2 [facility] Albumin [Mass/volume] in Serum or Plasma 5.5 G/DL 3.9 - 5.[address] [facility] Globulin [Mass/volume] in Serum by calculation 2.6 GM/DL 2.4 - 3.2 [facility] A/G RATIO 2.1 0.8 - 2.0 H [facility] Calcium [Mass/volume] in Serum or Plasma 10.6 MG/DL 8.4 - 10.[address] [facility] Bilirubin.total [Mass/volume] in Serum or Plasma 1.6 MG/DL 0.2 - 1.[address] [facility] Alkaline phosphatase [Enzymatic activity/volume] in Serum or Plasma 68 U/L 38 - 126 [facility] Aspartate aminotransferase [Enzymatic activity/volume] in Serum or Plasma 19 U/L 5 - 40 [facility] Alanine aminotransferase [Enzymatic activity/volume] in Seru m or Plasma 19 U/L 7 - 56 [facility] Anion gap 3 in Serum or Plasma 24.0 mmol/L 8.0 - 16.[address] [facility] AGE 24 yrs [facility] al NON-AA GFR >60 mL/min [facility] ital AFR AMER GFR >60 mL/min [facility] Ho spital Male GFR In terprentation [...] >32 mL/min Normal ID Date Data Source [id number] 12/26/2019 11:49:[address] [facility] Name Value Range Interpretation Code Description Data Michelle rce(s) Supporting Document(s) CBC W/AUTOMATED DIFF [facility] COMPLETE BLOOD COUNT Leukocytes [#/volume] in Blood by Automated count 14.9 10^3/uL 4.2 - 11.[address] [facility] Erythrocytes [#/volume] in Blood by Automated count 5.08 10^6/uL 4. 20 - 5.40 [facility] Hemoglobin [Mass/volume] in Blood 15.8 g/dL 12.0 - 16.0 [facility] Hematocrit [Volume Fraction] of Blood by Automated count 45.4 % 3 7.0 - 47.0 [facility] Erythrocyte mean corpuscular volume [Entitic volume] by Auto mated count 89.4 fL 81.0 - 101 [facility] Erythrocyte mean corpuscular hemoglobin [Entitic mass] by Automated count 31.1 pg 27.0 - 34.0 [facility] Erythrocyte mean corpuscular hemoglobin concentration [Mass/volume] by Automated count 34.8 g/dL 31.0 - 36.0 [facility] Erythrocyte distribution width [Ratio] by Automated count 12.2 % 11.5 - 14.5 [facility] Platelets [#/volume] in Blood by Automated count 392 10^3/uL 150 - [address] [facility] Platelet mean volume [Entitic volume] in Blood by Automated count 9.8 fL 7.4 - 10.4 [facility] Neutrophils/100 leukocytes in Blood by Automated count 81.1 % 37. 0 - 80.[address] [facility] Lymphocytes/100 leukocytes in Blood by Manual count 10.7 % 25.0 - 40.[address] [facility] Monocytes/100 leukocytes in Blood by Automated count 7.6 % 3.0 - 8.0 [facility] Eosinophils/100 leukocytes in Blood by Automated count 0.1 % 0.0 - 7.0 [facility] Basophils/100 leukocytes in Blood by Automated count 0.1 % 0.0 - 2.5 [facility] %IG 0.4 % 0.0 - 0.0 [facility] 0.0 % 0.0 - 0.0 [facility] al Neutrophils [#/volume] in Blood by Automated count 12.10 10^3/uL 2. 00 - 6.[address] [facility] Lymphocytes [#/volume] in Blood by Automated count 1.59 10^3/uL 0.60 - 3.40 [facility] Monocytes [#/volume] in Blood by Automated count 1.13 10^3/uL 0.00 - 0.[address] [facility] Eosinophils [#/volume] in Blood by Automated count 0.01 10^3/uL 0.00 - 0.70 [facility] Basophils [#/volume] in Blood by Automated count 0.02 10^3/uL 0.00 - 0.20 [facility] #IG 0.06 10^3/uL 0.00 - 0.10 [facility] ospital #NRBC 0.00 10^3/uL 0.00 - 0.00 [facility] ospital MANUAL DIFF SEE BELOW [facility] ital Segmented neutrophils/100 leukocytes in Blood by Manual count 76 % 37 - 80 [facility] %LYMPH 16 % 25 - 40 L [facility] al %MONO 8 % 3 - 8 [facility] al RBC MORPH MORPH IS NORMAL [facility] ID Date Data Source [id number] 12/26/2019 11:48:[address] [facility] Name Value Range Interpretation Code Description Data Michelle rce(s) Supporting Document(s) TROPONIN T <0.01 NG/ML 0.00 - 0.10 [facility] ospital TROPONIN T0.1 ng/ml Recommended as the c linical threshold value forTroponin T. ID Date Data Source [id number] 12/12/2019 12:03:00 PM EDT [facility] [address] [place] [address] PHONE: [phone] FAX: [phone] Name .................. : RITTER NATALIYA Martinez Acct Number.................. : [id number] ROOM. ................. : 100-1 MR Number ................... : [id number] Stay type ............. : O/P Discharge Date......... ... : Admit Date ......... : 12/09/19 Admit Phys .................... : MULLER HARD Date of ....... : 1995 Family Phys ................... : COLLAZO SCOT Phone .......... ........ : [phone] Age ................................ : 24 Film# .................. .:[id number] Sex ................................. : F Unsigned transcriptions are preliminary reports and do not represent a medical or legal document HEPATIC [id number] COMPLETE:12/09/19 14:38 KNB [id number] Reason(s): Nausea w Vomiting HEPATIC ULTRASOUND: COMPARISON: [...] MD , 12/12/19 12:03, TDS Transcribe Initials: DZ , Transcribe Date: 12/09/19 23:21, Dictation Date: Copy for: LDAI PARDO via fax Copy for: EMERGENCY DEPT via modem Copy for: 710 MED REC DISCHARGED Page 1 of 1 Name Value Range Interpretation Code Description Data Michelle rce(s) Supporting Document(s) ID Date Data Source [id number] 12/12/2019 10:57:00 [place] [address] PHONE: [phone] FAX: [phone] Name .................. : RITTER NATALIYA Martinez Acct Number.................. : [id number] ROOM. ................. : 100-1 MR Number ................... : [id number] Stay type ............. : O/P Discharge Date......... ... : Admit Date ......... : 12/09/19 Admit Phys .................... : MULLER HARD Date of ....... : 1995 Family Phys ................... : COLLAZO [employer] Phone .................. : [phone] Age ................................ : 24 Film# .................. .:[id number] Sex ................................. : F Unsigned transcriptions are preliminary reports and do not represent a medical or legal document CT ABD & PELVIS W/ IV ONLY [id number] COMPLETE:12/09/19 16:05 RLB [id number] Reason(s): Abdominal Pain CT OF THE ABDOMEN [...] lacey: No adenopathy. Page [address] [facility] [address] [place] [address] PHONE: [phone] FAX: [phone] Name .................. : RITTER NATALIYA Martinez Acct Number.................. : [id number] ROOM. ................. : 1001 MR Number ................... : [id number] Stay type ............. : O/P Discharge Date......... ... : Admit Date ......... : 12/09/19 Admit Phys .................... : MULLER HARD Date of ....... : 1995 Family Phys ................... : [employer] Phone .................. : [phone] Age ................................ : 24 Film# .................. .:[id number] Sex ................................. : F Unsigned transcriptions are preliminary reports and do not represent a medical or legal document CT ABD & PELVIS W/ IV ONLY [id number] COMPLETE:12/09/19 16:05 RLB [id number] Reason(s): Abdominal Pain Vessels: Normal abdominal aorta [...] MD , 12/12/19 10:57, APM Transcribe Initials: DZ , Transcribe Date: 12/10/19 02:48, Dictation Date: Copy for: LADI PARDO via fax Copy for: EMERGENCY DEPT via modem Copy for: 710 MED REC DISCHARGED Page 2 of 2 Name Value Range Interpretation Code Description Data Michelle rce(s) Supporting Document(s) ID Date Data Source [id number] 12/12/2019 10:55:00 [place] [address] PHONE: [phone] FAX: [phone] Name .................. : RITTER NATALIYA Martinez Acct Number.................. : [id number] ROOM. ................. : 100-1 Number ................... : [id number] Stay type ............. : O/P Discharge Date......... ... : Admit Date ......... : 12/09/19 Admit Phys .................... : RENZO HARD Date of ....... : 1995 Family Phys ................... : COLLAZO SCOT Phone .......... ........ : [phone] Age ................................ : 24 Film# .................. .:[id number] Sex ................................. : F Unsigned transcriptions are preliminary reports and do not represent a medical or legal document CHEST 2 VIEWS [id number] COMPLETE:12/09/19 16:01 ARS [id number] Reason(s): upper abd pain CHEST X-RAY: PA [...] rce(s) Supporting Document(s) ID Date Data Source [id number] 12/11/2019 03:11:[address] [facility] Name Value Range Interpretation Code Description Data Michelle rce(s) Supporting Document(s) Potassium [Moles/volume] in Serum or Plasma 3.5 mEq/L 3.6 - 5.[address] [facility] ID Date Data Source [id number] 12/11/2019 11:52:[address] [facility] Name Value Range Interpretation Code Description Data Michelle rce(s) Supporting Document(s) Potassium [Moles/volume] in Serum or Plasma 3.3 mEq/L 3.6 - 5.[address] [facility] ID Date Data Source [id number] 12/11/2019 10:11:[address] [facility] Name Value Range Interpretation Code Description Data Michelle rce(s) Supporting Document(s) Folate [Mass/volume] in Serum or Plasma 11.2 NG/ML 5.0 - 27.2 [facility] ID Date Data Source [id number] 12/11/2019 08:22:[address] [facility] Name Value Range Interpretation Code Description Data Michelle rce(s) Supporting Document(s) Magnesium [Mass/volume] in Serum or Plasma 1.7 MG/DL 1.7 - 2.2 [facility] ID Date Data Source [id number] 12/11/2019 07:46:[address] [facility] Name Value Range Interpretation Code Description Data Michelle rce(s) Supporting Document(s) CBC W/AUTOMATED DIFF [facility] COMPLETE BLOOD COUNT Leukocytes [#/volume] in Blood by Automated count 6.2 10^3/uL 4.2 - [address] [facility] Erythrocytes [#/volume] in Blood by Automated count 3.94 10^6/uL 4. 20 - 5.[address] [facility] Hemoglobin [Mass/volume] in Blood 12.3 g/dL 12.0 - 16.0 [facility] Hematocrit [Volume Fraction] of Blood by Automated count 36.9 % 3 7.0 - 47.[address] [facility] Erythrocyte mean corpuscular volume [Entitic volume] by Auto mated count 93.7 fL 81.0 - 101 [facility] Erythrocyte mean corpuscular hemoglobin [Entitic mass] by Automated count 31.2 pg 27.0 - 34.0 [facility] Erythrocyte mean corpuscular hemoglobin concentration [Mass/volume] by Automated count 33.3 g/dL 31.0 - 36.0 [facility] Erythrocyte distribution width [Ratio] by Automated count 12.4 % 11.5 - 14.5 [facility] Platelets [#/volume] in Blood by Automated count 178 10^3/uL 150 - [address] [facility] Platelet mean volume [Entitic volume] in Blood by Automated count 10.0 fL 7.4 - 10.4 [facility] Neutrophils/100 leukocytes in Blood by Automated count 54.4 % 37. 0 - 80.0 [facility] Lymphocytes/100 leukocytes in Blood by Manual count 38.0 % 25.0 - 40.0 [facility] Monocytes/100 leukocytes in Blood by Automated count 6.0 % 3.0 - 8.0 [facility] Eosinophils/100 leukocytes in Blood by Automated count 1.0 % 0.0 - 7.0 [facility] Basophils/100 leukocytes in Blood by Automated count 0.3 % 0.0 - 2.5 [facility] %IG 0.3 % 0.0 - 0.0 [facility] 0.0 % 0.0 - 0.0 [facility] al Neutrophils [#/volume] in Blood by Automated count 3.36 10^3/uL 2.00 - 6.90 [facility] Lymphocytes [#/volume] in Blood by Automated count 2.35 10^3/uL 0.60 - 3.40 [facility] Monocytes [#/volume] in Blood by Automated count 0.37 10^3/uL 0.00 - 0.90 [facility] Eosinophils [#/volume] in Blood by Automated count 0.06 10^3/uL 0.00 - 0.70 [facility] Basophils [#/volume] in Blood by Automated count 0.02 10^3/uL 0.00 - 0.20 [facility] #IG 0.02 10^3/uL 0.00 - 0.10 [facility] ospital #NRBC 0.00 10^3/uL 0.00 - 0.00 [facility] MANUAL DIFF NOT INDICATED [facility] RBC MORPH NOT INDICATED [facility] spital ID Date Data Source [id number] 12/11/2019 07:44:[address] [facility] Name Value Range Interpretation Code Description Data Michelle rce(s) Supporting Document(s) COMPREHENSIVE METABOLIC PANEL [facility] COMPREHENSIVE METABOLIC PANEL Sodium [Moles/volume] in Serum or Plasma 140 mEq/L 134 - 153 [facility] Potassium [Moles/volume] in Serum or Plasma 3.0 mEq/L 3.6 - 5.[address] [facility] Chloride [Moles/volume] in Serum or Plasma 105 mEq/L 98 - 107 [facility] Carbon dioxide, total [Moles/volume] in Serum or Plasma 26 MEQ/L 22 - 30 [facility] Glucose [Mass/volume] in Serum or Plasma 89 MG/DL 65 - 110 [facility] BUN 6 MG/DL 7 - 21 L [facility] al Creatinine [Mass/volume] in Serum or Plasma 0.4 MG/DL 0.7 - 1.[address] [facility] BUN/CREAT 15 8 - 27 [facility] Protein [Mass/volume] in Serum or Plasma 5.9 G/DL 6.3 - 8.[address] [facility] Albumin [Mass/volume] in Serum or Plasma 4.0 G/DL 3.9 - 5.0 [facility] Globulin [Mass/volume] in Serum by calculation 1.9 GM/DL 2.4 - 3.[address] [facility] A/G RATIO 2.1 0.8 - 2.0 H [facility] Calcium [Mass/volume] in Serum or Plasma 8.8 MG/DL 8.4 - 10.2 [facility] Bilirubin.total [Mass/volume] in Serum or Plasma 1.1 MG/DL 0.2 - 1.3 [facility] Alkaline phosphatase [Enzymatic activity/volume] in Serum or Plasma 52 U/L 38 - 126 [facility] Aspartate aminotransferase [Enzymatic activity/volume] in Serum or Plasma 31 U/L 5 - 40 [facility] Alanine aminotransferase [Enzymatic activity/volume] in Seru m or Plasma 48 U/L 7 - 56 [facility] Anion gap 3 in Serum or Plasma 9.0 mmol/L 8.0 - 16.0 [facility] AGE 24 yrs [facility] Hospit al NON-AA GFR >60 mL/min [facility]osp ital AFR AMER GFR >60 mL/min [facility] spital Male GFR In terprentation [...] >32 mL/min Normal ID Date Data Source [id number] 12/09/2019 12:55:[address] [facility] [address] [facility] Emergency Department [address] [place] [address] Phone #: ext- [phone] 12/09/2019 12:30 Patient: [...] 13:12/09/2019 14:04 Bernard Patel RN [address] [facility] Emergency Department [address] [place] [address] Phone #: ext- [phone] 12/09/2019 12:30 -------- [...] Petermeq/100mL Imtiaz Patel RN P.A.-C; [address] [facility] Emergency Department [address] [place] [address] Phone #: ext- [phone] 12/09/2019 12:30 Patient: NATALIYA BEASLEY Sex: F : 1995 Age: 24yBenadryl 25 mg IVP 15:33 12/09/2019 15:39 Kensal,X1 dose: 25 mg Imtiaz Galvan R.N.(NOW x1) P.A.-C;GENERAL ORDERSOrder Description Priority Entered Acknowledged InitialedAccucheck 13:26 12/09/2019 14:22 Bernard Patel RN P.A.-C;NPO 13:26 12/09/2019 14:04 Bernard Patel RN P.A.-C;Saline Lock 13:12/09/2019 14:04 Bernard Patel RN P.A.-C;EKG 13:12/09/2019 14:04 Bernard Patel RN P.A.-C;Milieu Coordinator 13:12/09/2019 14:04 Bernard(continuous) Imtiaz Patel RN P.A.-C;Pulse oximeter 13:12/09/2019 14:04 Bernard(Continuous) Imtiaz Patel RN P.A.-C;[Electronically signed by Bernard Patel RN (17:12/09/2019)][Electronically signed by Imtiaz España P.A.-C (11:12/10/2019)][Electronically locked by Bernard Patel RN (:12/09/2019)] Name Value Range Interpretation Code Description Data Michelle rce(s) Supporting Document(s) ID Date Data Source [id number] 12/09/2019 12:55:[address] [facility] [address] [facility] Emergency Department [address] [place] [address] Phone #: ext- [phone] 12/09/2019 12:30 Patient: [...] rce(s) Supporting Document(s) ID Date Data Source [id number] 12/09/2019 12:55:[address] [facility] [address] [facility] Emergency Department [address] [place] [address] Phone #: ext- [phone] 12/09/2019 12:30 Patient: NATALIYA BEASLEY Sex: F : 1995 Age: 24yWeight: 58.9 kgHeight/Length: 62 inBMI: 23.8ALLERGIES: None, Sulfa Antibiotics Date/Time Medication Administered Medication OrderedStart IV NS IV NS : Bolus 500 mL, then 48324:12/09/2019 Dose: IV Fluids mL/hrPeter EASTON Patel Rate: [...] mL bag14:56 12/09/2019 Site: #1 right upper armDylon Martinez PEPCID [IVPB] Pepcid IVPB 20 mg/50mL (NOW14:58 12/09/2019 Dose: 20 mg IVPB x1, Infuse over 30 minutes.)Bernard Patel RN Rate: 100 mL/hr over 30 minute(s)---- Dispensed: 50 mL bagStop Site: #1 right upper arm15:41 12/09/2019Jorgito Martinez KCL LIQUID PO KCl Liquid PO 40 meq15:01 12/09/2019 Dose: 40 meq Syrup/Liquid Dylon Kaplan KCL [IVPB] KCl IVPB 10 meq/197wA55:02 12/09/2019 Dose: 10 meq FLORECITAPBBernard Patel RN Rate: 100 mL/hr over 1 hour(s)---- Dispensed: 100 mL bagStop Site: #1 right upper arm17:02 12/09/2019Jorgito Martinez BENADRYL [IVP] (DIPHENHYDRAMINE Benadryl 25 mg IVP X1 dose: 2515:25 12/09/2019 HCL) mg (NOW x1)Mandy Alvarez R.N. Dose: 25 mg IVP In: NS 10 mL Site: #1 right upper arm [address] [facility] Emergency Department [address] [place] [address] Phone #: ext- [phone] 12/09/2019 12:30 Patient: NATALIYA BEASLEY Sex: F : 1995 Age: 24y Name Value Range Interpretation Code Description Data Michelle rce(s) Supporting Document(s) ID Date Data Source [id number] 12/09/2019 12:55:[address] [facility] [address] [facility] Emergency Department [address] [place] [address] Phone #: ext- [phone] 12/09/2019 12:30 Patient: [...] or muscle cramps Dizziness [address] [facility] Emergency Department [address] [place] [address] Phone #: ext- [phone] 12/09/2019 12:30 Patient: NATALIYA BEASLEY Sex: F : 1995 Age: 24yCall 911Call 911 if any of the following occur: Irregular heartbeat, extra beats, or very fast heart rate Loss of con sciousness [phone] [employer]. [address] [place] [address]. All rights reserved. This information is not intended as asubstitute for professional medical care. Always follow your healthcare professional's instructions. You have been given the following additional information: Hypokalemia(Electronically signed by Imtiaz España P.A.-C 12/10/2019 11:00) Name Value Range Interpretation Code Description Data Michelle rce(s) Supporting Document(s) ID Date Data Source [id number] 12/09/2019 12:55:[address] [facility] 1 Clinical Report - Nurses [facility] Emergency Department [address] [place] [address] Phone #: ext- [phone] 12/09/2019 12:30 Patient: NATALIYA BEASLEY Sex: F : 1995 Age: 24yTRIAGEArrived by private vehicle. Historian: patient. Accompanied by family. ( here on Thursday for vomitand it continues today).Acuity: LEVEL 3.Chief Complaint: ABDOMINAL PAIN, NAUSEA and VOMITING.Alert.Onset. (thursday). The patient has had nausea, vomiting and abdominal pain. The pain is described aslocated in the upper abdomen.Treatment DIGITAL SOLUTION ARCHITECT:None.SEPSIS SCREEN: SIRS Screen negative. Sepsis Screen negative. [...] Kemp R.N..ADDITIONAL SURGERIES:Tube in ears. --12:41 12/09/19 Alexia Kemp R.N. 2 Clinical Report - Nurses [facility] Emergency Department [address] [place] [address] Phone #: ext- [phone] 12/09/2019 12:30 Patient: [...] ready for evaluation- ED physicianhumberto CLARK notified. --13:06 12/09/19 Alexia Kemp R.N. 3 Clinical Report - Nurses [facility] Emergency Department [address] [place] [address] Phone #: ext- [phone] 12/09/2019 12:30 Patient: NATALIYA BEASLEY Sex: F : 1995 Age: 24y13:13 12/09/2019 Site #1 started via IV in the right upper arm with an 20g angiocath, with aseptictechnique and good blood return; one attempt. Saline lock flushed with 10 mL saline. --13:13 12/09/19Wai Martinez transported to sonogram by wheelchair with professor of radiology. --13:38 12/09/19 Wai Martinez returned from sonogram by wheelchair with professor of radiology. --13:58 12/09/19 Bernard Patel [...] for taking this medication. Verbalizesunderstanding. --14:12/09/19 TRACY Martinez:12/09/2019 Started 25 mg of Phenergan IVPB in bag #1 50 mL; at 400 mL/hr over 15 minute(s) viasite #1. via IV pump. Allergies verified and confirmed 5 rights. IV patency established. IV site checked: nopain, redness, or swelling. IV flushed thoroughly pre- and post-medication administration. Informationreviewed with patient including reason for taking this medication. Verbalizes understanding. --14: TRACY Martinez:12/09/19. BP: 130/89. MAP: 102. HR: 67. RR: 16. O2 saturation: 100%. Pain level now: 8/10.--14:10 12/09/19 Bernard Patel RNEKG time: (14:11 12/09/2019). EKG was performed by a tech and shown to the PA. --14:13 12/09/19Mando ibrahim ER Simulation Tech( FSBS 107). --14:12/09/19 TRACY Martinez:12/09/2019 Started 40 mg of Protonix (Pantoprazole Sodium) IVPB in bag #1 100 mL; at 200 mL/hrover 30 minute(s) via site #1. via IV pump. Allergies verified and confirmed 5 rights. IV patency established.IV site checked: no pain, redness, or swelling. IV flushed thoroughly pre- and post-medicationadministration. Information reviewed with patient including reason for taking this medication. Verbalizesunderstanding. --14:24 12/09/19 TRACY Martinez:43 12/09/19. BP: 111/74. MAP: 86. HR: 65. RR: 16. O2 saturation: 100%. Pain level now: 5/10.--14:43 12/09/19 Bernard Patel RNCritical value relayed by Gutierrez VELEZ (late entry - 14:50 12/09/2019). Critical value [...] --14:56 12/09/19 4 Clinical Report - Nurses [facility] Emergency Department [address] [place] [address] Phone #: ext- [phone] 12/09/2019 12:30 Patient: NATALIYA BEASLEY Sex: F : 1995 Age: 24yPeter EASTON Patel14:58 12/09/2019 Started 20 mg of Pepcid IVPB [...] including reason for taking this medication. Verbalizesunderstanding. --15:12/09/19 Bernard Patel RN15:12/09/2019 Phenergan IVPB via IV site #1 Discontinued: infused. Total amount infused: 50 mL. IVpatency established. IV site checked: no pain, redness, or swelling. IV flushed thoroughly. --14:56 12/09/19Bernard Patel RN( pt resting comfortable at this time, states her pain level has decreased). --15:15 12/09/19 Bernard Patel RN15:15 12/09/19. BP: 110/83. MAP: 92. HR: 72. RR: 16. O2 saturation: 100%. Pain level now: 09/24.--15:15 12/09/19 Bernard Patel RN15:25 12/09/2019 Benadryl (diphenhydrAMINE [...] Verbalizes understanding. -- 15:39 12/09/19 Mandy Alvarez RSvetaNSveta( Pt vomited at bedside, was previously medicated for nausea/vomiting; PA made aware and ptmedicated. Pt left hand cramping, mother rubbing her hand in room). --15:40 12/09/19 Mandy Alvarez R.N.15:41 12/09/2019 Pepcid IVPB via IV site #1 Discontinued: infused. Total amount infused: 50 mL. IVpatency established. IV site checked: no pain, redness, or swelling. IV flushed thoroughly. --15:46 12/09/19DAISY Martinezatient transported to radiology and CT by wheelchair with professor of radiology. --15:47 12/09/19 Bernard Patel [...] EASTON Thomas 5 Clinical Report - Nurses [facility] Emergency Department [address] [place] [address] Phone #: ext- [phone] 12/09/2019 12:30 Patient: NATALIYA BEASLEY Sex: F : 1995 Age: 24y Patient returned from radiology and CT by wheelchair with professor of radiology. --16:02 12/09/19 Bernard Patel [...] rce(s) Supporting Document(s) ID Date Data Source [id number] 12/09/2019 12:55:[address] [facility] 1 Clinical Report - Physicians/Mid Levels [facility] Emergency Department [address] [place] [address] Phone #: ext- [phone] 12/09/2019 12:30 Patient: [...] no improvement of N/V. Seen here in [facility] 2 days ago w ith same [...] Oral. 2 Clinical Report - Physicians/Mid Levels [facility] Emergency Department [address] [place] [address] Phone #: ext- [phone] 12/09/2019 12:30 Patient: [...] X-RAYS, AND EKGEKG: Sinus rhythem w/ short DE; nonspecific ST abnormality; prolonged QT; abnormal ECG. Discussed and reviewed with/by attending. Compared previous on . Chest X-ray: (Mikaela hampton Alan - 12/09/2019 3:51:33 PM nad). The X- rays were interpreted by the radiologist. CT Abdomen - Pelvis: Mikaela hampton Alan - 12/09/2019 4:05:21 PM No acute disease. The study was interpreted by the radiologist. 3 Clinical Report - Physicians/Mid Levels [facility] Emergency Department [address] [place] [address] Phone #: ext- [phone] 12/09/2019 12:30 Patient: [...] abd painTRANSPORTATION: WC IV? O2? Oxygen?(No) Room: [facility] w Diff: (ANGELY: 12/09/2019 14:15) ( MsgRcvd [...] (3.6 - 5.0) CALL/ READ BACK [employer] BY: LINDA DATE/TIME [id number] Clinical Report - Physicians/Mid Levels [facility] Emergency Department [address] [place] [address] Phone #: ext- [phone] 12/09/2019 12:30 Patient: [...] Male GFR Interprentation 20-49 yrs >60 mL/min Diqxbj18-17 yrs >56 mL/min Normal 60-69 yrs >49 mL/min Normal 70-79yrs>42 mL/min Normal 80 and above >35 mL/min Normal Female GFRInterpretation 20-39 yrs >60 mL/min Normal 40-49 yrs >58 mL/minNormal 50-59 yrs >51 mL/min Normal 60-69 yrs >45 mL/min Lppygq65- 79 yrs >39 mL/min Normal 80 and above >32 mL/min NormalLipase: (ANGELY: 12/09/2019 14:15) ( [facility] 12/09/2019 14:51) Final results Test Result Flag Units (Reference) LIPASE 12 L U/L (13 - 60)PT/INR: (ANGELY: 12/09/2019 14:15) ( [facility] 12/09/2019 14:38) Final results Test Result Flag Units (Reference) PROTIME 12.4 SECONDS (11.0 - 15.5) INR 0.91 L (0.93 - 1.23) \\BLDo\\INR INTERPRETATION\\BLDx\\ Therapeutic range for Coumadin andrelated oral anticoagulants. -International Normalized Ratio (INR): 2.0 - 3.0 for VenousThrombosis, Pulmonary Embolus, Tissue heart valves, Acute IL, Atrial Fibrillation, Valvular heartdisease and recurrent Systemic Embolism. - International Normalized Ratio (INR): 2.5 - 3.5for Mechanical Prosthetic valve.Magnesium: (ANGELY: 12/09/2019 14:15) ( [facility] 12/09/2019 14:51) Final results Test Result Flag Units (Reference) MAGNESIUM 1.6 L MG/DL (1.7 - 2.2)Beta-HCG, Qual Serum: (ANGELY: 12/09/2019 14:15) ( [facility] 12/09/2019 14:43) Final results Test Result Flag Units (Reference) HCG SERUM QUAL NEGATIVE (NORMAL: NEGAT HCG SERUM QL REENTER NEGATIVE (NORMAL: NEGAT { KIT LOT # [id number] ){ KIT EXP DATE02.27.21 ){ PROCEDURAL CONTROL VALID)Troponin-T: (ANGELY: 12/09/2019 14:15) ( [facility] 12/09/2019 14:51) Final results Test Result Flag Units (Reference) 5 Clinical Report - Physicians/Mid Levels [facility] Emergency Department [address] [place] [address] Phone #: ext- [phone] 12/09/2019 12:30 Patient: NATALIYA BEASLEY Sex: F : 1995 Age: 24y TROPONIN T <0.01 NG/ML (0.00 - 0.10) TROPONIN T0.1 ng/ml Recommended as the clinical threshold value forTroponin T. US Liver: (ANGELY: 12/09/2019 13:26) ( [facility] 12/09/2019 14:38) In Progress US HEPATIC Reason(s): Nausea w Vomiting TRANSPORTATION: WC IV? O2? Oxygen?(No) Room: ED Urinalysis: (ANGELY: 12/09/2019 13:05) ( [facility] 12/09/2019 13:35) Final results Test Result Flag [...] better. 6 Clinical Report - Physicians/Mid Levels [facility] Emergency Department [address] [place] [address] Phone #: ext- [phone] 12/09/2019 12:30 Patient: [...] rce(s) Supporting Document(s) ID Date Data Source [id number] 12/10/2019 08:37:[address] [facility] Name Value Range Interpretation Code Description Data Michelle rce(s) Supporting Document(s) CBC W/AUTOMATED DIFF [facility] COMPLETE BLOOD COUNT Leukocytes [#/volume] in Blood by Automated count 6.9 10^3/uL 4.2 - [address] [facility] Erythrocytes [#/volume] in Blood by Automated count 4.03 10^6/uL 4. 20 - 5.[address] [facility] Hemoglobin [Mass/volume] in Blood 12.5 g/dL 12.0 - 16.0 [facility] Hematocrit [Volume Fraction] of Blood by Automated count 37.7 % 3 7.0 - 47.0 [facility] Erythrocyte mean corpuscular volume [Entitic volume] by Auto mated count 93.5 fL 81.0 - 101 [facility] Erythrocyte mean corpuscular hemoglobin [Entitic mass] by Automated count 31.0 pg 27.0 - 34.0 [facility] Erythrocyte mean corpuscular hemoglobin concentration [Mass/volume] by Automated count 33.2 g/dL 31.0 - 36.0 [facility] Erythrocyte distribution width [Ratio] by Automated count 12.9 % 11.5 - 14.5 [facility] Platelets [#/volume] in Blood by Automated count 185 10^3/uL 150 - [address] [facility] Platelet mean volume [Entitic volume] in Blood by Automated count 10.1 fL 7.4 - 10.4 [facility] Neutrophils/100 leukocytes in Blood by Automated count 66.1 % 37. 0 - 80.0 [facility] Lymphocytes/100 leukocytes in Blood by Manual count 25.3 % 25.0 - 40.0 [facility] Monocytes/100 leukocytes in Blood by Automated count 7.4 % 3.0 - 8.0 [facility] Eosinophils/100 leukocytes in Blood by Automated count 0.3 % 0.0 - 7.0 [facility] Basophils/100 leukocytes in Blood by Automated count 0.6 % 0.0 - 2.5 [facility] %IG 0.3 % 0.0 - 0.0 H [facility] Hospit al %NRBC 0.0 % 0.0 - 0.0 [facility] al Neutrophils [#/volume] in Blood by Automated count 4.55 10^3/uL 2.00 - 6.90 [facility] Lymphocytes [#/volume] in Blood by Automated count 1.74 10^3/uL 0.60 - 3.40 [facility] Monocytes [#/volume] in Blood by Automated count 0.51 10^3/uL 0.00 - 0.90 [facility] Eosinophils [#/volume] in Blood by Automated count 0.02 10^3/uL 0.00 - 0.70 [facility] Basophils [#/volume] in Blood by Automated count 0.04 10^3/uL 0.00 - 0.20 [facility] #IG 0.02 10^3/uL 0.00 - 0.10 [facility]spital #NRBC 0.00 10^3/uL 0.00 - 0.00 [facility] MANUAL DIFF NOT INDICATED [facility] RBC MORPH NOT INDICATED [facility] spital ID Date Data Source [id number] 12/10/2019 08:35:[address] [facility] Name Value Range Interpretation Code Description Data Michelle rce(s) Supporting Document(s) COMPREHENSIVE METABOLIC PANEL [facility] COMPREHENSIVE METABOLIC PANEL Sodium [Moles/volume] in Serum or Plasma 141 mEq/L 134 - 153 [facility] Potassium [Moles/volume] in Serum or Plasma 3.6 mEq/L 3.6 - 5.0 [facility] Chloride [Moles/volume] in Serum or Plasma 107 mEq/L 98 - 107 [facility] Carbon dioxide, total [Moles/volume] in Serum or Plasma 27 MEQ/L 22 - 30 [facility] Glucose [Mass/volume] in Serum or Plasma 89 MG/DL 65 - 110 [facility] BUN 10 MG/DL 7 - 21 [facility] al Creatinine [Mass/volume] in Serum or Plasma 0.4 MG/DL 0.7 - 1.[address] [facility] BUN/CREAT 25 8 - 27 [facility] Protein [Mass/volume] in Serum or Plasma 6.2 G/DL 6.3 - 8.[address] [facility] Albumin [Mass/volume] in Serum or Plasma 4.3 G/DL 3.9 - 5.0 [facility] Globulin [Mass/volume] in Serum by calculation 1.9 GM/DL 2.4 - 3.[address] [facility] A/G RATIO 2.3 0.8 - 2.0 H [facility] Calcium [Mass/volume] in Serum or Plasma 9.0 MG/DL 8.4 - 10.2 [facility] Bilirubin.total [Mass/volume] in Serum or Plasma 0.9 MG/DL 0.2 - 1.3 [facility] Alkaline phosphatase [Enzymatic activity/volume] in Serum or Plasma 52 U/L 38 - 126 [facility] Aspartate aminotransferase [Enzymatic activity/volume] in Serum or Plasma 27 U/L 5 - 40 [facility] Alanine aminotransferase [Enzymatic activity/volume] in Seru m or Plasma 38 U/L 7 - 56 [facility] Anion gap 3 in Serum or Plasma 7.0 mmol/L 8.0 - 16.[address] [facility] AGE 24 yrs [facility] NON-AA GFR >60 mL/min [facility] ital AFR AMER GFR >60 mL/min [facility] Ho spital Male GFR In terprentation [...] >32 mL/min Normal ID Date Data Source [id number] 12/10/2019 11:51:[address] [facility] Name Value Range Interpretation Code Description Data Michelle rce(s) Supporting Document(s) Magnesium [Mass/volume] in Serum or Plasma 1.9 MG/DL 1.7 - 2.2 [facility] ID Date Data Source [id number] 12/09/2019 10:55:00 PM EDT [facility] [address] [place] [address] PHONE: [phone] FAX: [phone] Name ..............: RITTER NATALIYA Martinez Acct Number ...........................: [id number] ROOM. ............: [facility] Number ............................: [id number] Stay type.........: O/P Discharge Date...............: Admit Date .....: 12/09/19 Admit Phys .............................: MULLER HARD Date of ..: 1995 Family Phys ...........................: COLLAZO SCOT Phone..............: [phone] Age .................................:24 Film# ...............:[id number] Sex.................................:F Unsigned transcriptions are preliminary reports and do not represent a medical or legal document EKG [id number] COMPLETE:12/09/19 16:25 CJM [id number] Please See Scanned Results. Name Value Range Interpretation Code Description Data Michelle rce(s) Supporting Document(s) ID Date Data Source [id number] 12/09/2019 06:23:[address] [facility] Name Value Range Interpretation Code Description Data [facility] rce(s) Supporting Document(s) BASIC METABOLIC PANEL [facility] BASIC METABOLIC PANEL Sodium [Moles/volume] in Serum or Plasma 137 mEq/L 134 - 153 [facility] Potassium [Moles/volume] in Serum or Plasma 2.7 mEq/L 3.6 - 5.[address] [facility] CALL/ READ BACK VENEROUS ER [facility] BY: LINDA [facility] DATE/TIME [id number] [facility] Chloride [Moles/volume] in Serum or Plasma 99 mEq/L 98 - 107 [facility] Carbon dioxide, total [Moles/volume] in Serum or Plasma 24 MEQ/L 22 - 30 [facility] Glucose [Mass/volume] in Serum or Plasma 96 MG/DL 65 - 110 [facility] BUN 9 MG/DL 7 - 21 [facility] Creatinine [Mass/volume] in Serum or Plasma 0.5 MG/DL 0.7 - 1.[address] [facility] BUN/CREAT 18 8 - 27 [facility] Calcium [Mass/volume] in Serum or Plasma 9.0 MG/DL 8.4 - 10.2 [facility] Anion gap 3 in Serum or Plasma 14.0 mmol/L 8.0 - 16.0 [facility] AGE 24 yrs [facility] al AFR AMER GFR >60 mL/min [facility] spital NON-AA GFR >60 mL/min [facility] ital Male GFR Inter prentation 20-49 [...] >32 mL/min Normal ID Date Data Source [id number] 12/09/2019 06:23:[address] [facility] Name Value Range Interpretation Code Description Data Michelle rce(s) Supporting Document(s) BNP 147 PG/ML 0 - 125 H [facility] al ID Date Data Source [id number] 12/09/2019 05:22:[address] [facility] Name Value Range Interpretation Code Description Data Michelle rce(s) Supporting Document(s) MONO TEST NEGATIVE NORMAL: NEGATIVE [facility] MONO REENTER NEGATIVE NORMAL: NEGATIVE [facility] { KIT LOT # [id number] ){ KIT EXP DATE 04.16.21 ){ PROCEDURAL CONTROL VALID ) ID Date Data Source [id number] 12/09/2019 02:56:[address] [facility] Name Value Range Interpretation Code Description Data Michelle rce(s) Supporting Document(s) COMPREHENSIVE METABOLIC PANEL [facility] COMPREHENSIVE METABOLIC PANEL Sodium [Moles/volume] in Serum or Plasma 139 mEq/L 134 - 153 [facility] Potassium [Moles/volume] in Serum or Plasma 2.7 mEq/L 3.6 - 5.[address] [facility] CALL/ READ BACK CHAYA MCCORMACK ER [facility] BY: LINDA [facility]TIME [id number] [facility] Chloride [Moles/volume] in Serum or Plasma 100 mEq/L 98 - 107 [facility] Carbon dioxide, total [Moles/volume] in Serum or Plasma 24 MEQ/L 22 - 30 [facility] Glucose [Mass/volume] in Serum or Plasma 102 MG/DL 65 - 110 [facility] BUN 11 MG/DL 7 - 21 [facility] al Creatinine [Mass/volume] in Serum or Plasma 0.6 MG/DL 0.7 - 1.[address] [facility] BUN/CREAT 18 8 - 27 [facility] Protein [Mass/volume] in Serum or Plasma 7.1 G/DL 6.3 - 8.2 [facility] Albumin [Mass/volume] in Serum or Plasma 4.7 G/DL 3.9 - 5.0 [facility] Globulin [Mass/volume] in Serum by calculation 2.4 GM/DL 2.4 - 3.2 [facility] A/G RATIO 2.0 0.8 - 2.0 [facility] al Calcium [Mass/volume] in Serum or Plasma 9.5 MG/DL 8.4 - 10.2 [facility] Bilirubin.total [Mass/volume] in Serum or Plasma 1.0 MG/DL 0.2 - 1.3 [facility] Alkaline phosphatase [Enzymatic activity/volume] in Serum or Plasma 64 U/L 38 - 126 [facility] Aspartate aminotransferase [Enzymatic activity/volume] in Serum or Plasma 23 U/L 5 - 40 [facility] Alanine aminotransferase [Enzymatic activity/volume] in Seru m or Plasma 37 U/L 7 - 56 [facility] Anion gap 3 in Serum or Plasma 15.0 mmol/L 8.0 - 16.0 [facility]GE 24 [facility] GFR >60 mL/min [facility] ital AFR AMER GFR >60 mL/min [facility] Ho spital Male GFR In terprentation [...] >32 mL/min Normal ID Date Data Source [id number] 12/09/2019 02:51:[address] [facility] Name Value Range Interpretation Code Description Data Michelle rce(s) Supporting Document(s) TROPONIN T <0.01 NG/ML 0.00 - 0.10 [facility] ospital TROPONIN T0.1 ng/ml Recommended as the c linical threshold value forTroponin T. ID Date Data Source [id number] 12/09/2019 02:51:[address] [facility] Name Value Range Interpretation Code Description Data Michelle rce(s) Supporting Document(s) Magnesium [Mass/volume] in Serum or Plasma 1.6 MG/DL 1.7 - 2.[address] [facility] ID Date Data Source [id number] 12/09/2019 02:51:[address] [facility] Name Value Range Interpretation Code Description Data Michelle rce(s) Supporting Document(s) Lipase [Enzymatic activity/volume] in Serum or Plasma 12 U/L 13 - [address] [facility] ID Date Data Source [id number] 12/09/2019 02:42:[address] [facility] Name Value Range Interpretation Code Description Data Michelle rce(s) Supporting Document(s) HCG SERUM QUAL NEGATIVE NORMAL: NEGATIVE [facility] HCG SERUM QL REENTER NEGATIVE NORMAL: NEGATIVE [facility] { KIT LOT # [id number] ){ KIT EXP DATE 02.27.21 ){ PROCEDURAL CONTROL VALID ) ID Date Data Source [id number] 12/09/2019 02:38:[address] [facility] Name Value Range Interpretation Code Description Data Michelle rce(s) Supporting Document(s) Prothrombin time (PT) 12.4 SECONDS 11.0 - 15.5 [facility] INR in Platelet poor plasma by Coagulation assay 0.91 0.93 - 1. 23 [facility] \\BLDo\\INR INTERPRETATION\\BLDx\\ Therapeutic range for Coumadin and related oral anticoagulants. - International Normalized Ratio (INR): 2.0 - 3.0 for Venous Thrombosis, Pulmonary Embolus, Tissue heart valves, Acute IL, Atrial Fibrillation, Valvular heart disease and recurrent Systemic Embolism. -International Normalized Ratio (INR): 2.5 - 3.5 for Mechanical Prosthetic valve. ID Date Data Source [id number] 12/09/2019 02:25:[address] [facility] Name Value Range Interpretation Code Description Data Michelle rce(s) Supporting Document(s) CBC W/AUTOMATED DIFF [facility] COMPLETE BLOOD COUNT Leukocytes [#/volume] in Blood by Automated count 9.9 10^3/uL 4.2 - [address] [facility] Erythrocytes [#/volume] in Blood by Automated count 4.28 10^6/uL 4. 20 - 5.40 [facility] Hemoglobin [Mass/volume] in Blood 13.3 g/dL 12.0 - 16.0 [facility] Hematocrit [Volume Fraction] of Blood by Automated count 38.8 % 3 7.0 - 47.0 [facility] Erythrocyte mean corpuscular volume [Entitic volume] by Auto mated count 90.7 fL 81.0 - 101 [facility] Erythrocyte mean corpuscular hemoglobin [Entitic mass] by Automated count 31.1 pg 27.0 - 34.0 [facility] Erythrocyte mean corpuscular hemoglobin concentration [Mass/volume] by Automated count 34.3 g/dL 31.0 - 36.0 [facility] Erythrocyte distribution width [Ratio] by Automated count 12.7 % 11.5 - 14.5 [facility] Platelets [#/volume] in Blood by Automated count 282 10^3/uL 150 - [address] [facility] Platelet mean volume [Entitic volume] in Blood by Automated count 9.3 fL 7.4 - 10.4 [facility] Neutrophils/100 leukocytes in Blood by Automated count 77.7 % 37. 0 - 80.0 [facility] Lymphocytes/100 leukocytes in Blood by Manual count 15.6 % 25.0 - 40.[address] [facility] Monocytes/100 leukocytes in Blood by Automated count 6.2 % 3.0 - 8.0 [facility] Eosinophils/100 leukocytes in Blood by Automated count 0.0 % 0.0 - 7.0 [facility] Basophils/100 leukocytes in Blood by Automated count 0.2 % 0.0 - 2.5 [facility] %IG 0.3 % 0.0 - 0.0 [facility] %NRBC 0.0 % 0.0 - 0.0 [facility] al Neutrophils [#/volume] in Blood by Automated count 7.68 10^3/uL 2.00 - 6.[address] [facility] Lymphocytes [#/volume] in Blood by Automated count 1.54 10^3/uL 0.60 - 3.40 [facility] Monocytes [#/volume] in Blood by Automated count 0.61 10^3/uL 0.00 - 0.90 [facility] Eosinophils [#/volume] in Blood by Automated count 0.00 10^3/uL 0.00 - 0.70 [facility] Basophils [#/volume] in Blood by Automated count 0.02 10^3/uL 0.00 - 0.20 [facility] #IG 0.03 10^3/uL 0.00 - 0.10 [facility] H ospital #NRBC 0.00 10^3/uL 0.00 - 0.00 [facility] ospital MANUAL DIFF NOT INDICATED [facility] RBC MORPH NOT INDICATED [facility] spital ID Date Data Source [id number] 12/09/2019 04:25:[address] [facility] Name Value Range Interpretation Code Description Data Michelle rce(s) Supporting Document(s) DRUG SCREEN URINE [facility] URINE DRUG SCREEN Amphetamine [Presence] in Urine by Screen method NEGATIVE NORMAL: N EGATIVE [facility] BARBITURATES NEGATIVE NORMAL: NEGATIVE [facility] BENZO NEGATIVE NORMAL: NEGATIVE [facility] COCAINE NEGATIVE NORMAL: NEGATIVE [facility] Tetrahydrocannabinol [Presence] in Urine PRESUMP POS NORMAL: NEGATIVE [facility] OPIATES NEGATIVE NORMAL: NEGATIVE [facility] Phencyclidine [Presence] in Urine by Screen method NEGATIVE NOR MAL: NEGATIVE [facility] \\BLDo\\URINE DRUG SCR EEN INTERPRETATION\\BLDx\\ THE CUTOFFF LEVELS FOR DETECTION ARE FOLLOWS: AMPHETAMINES 1000 ng/ml BARBITUARATES 200 ng/ml BENZODIAZEPINES 100 ng/ml THC 50 ng/ml PHENCYCLIDINE 25 ng/ml OPIATES 300 ng/ml COCAINE 300 ng/ml ALL POSITIVES ARE CONSIDERED PRESUMPTIVE POSITIVE CONFIRMATION WILL BE PERFORMED AT PHYSICIAN REQUEST. ID Date Data Source [id number] 12/09/2019 01:34:[address] [facility] Name Value Range Interpretation Code Description Data Michelle rce(s) Supporting Document(s) URINALYSIS [facility] URINALYSIS SOURCE R [facility] COLOR yellow NORMAL: Yellow [facility] CLARITY hazy NORMAL: Clear [facility] Specific gravity of Urine by Test strip 1.020 1.001 - 1.030 [facility] pH 6 5 - 9 [facility] Glucose [Mass/volume] in Urine by Test strip NORM NORMAL: Negat [facility] Bilirubin.total [Presence] in Urine by Test strip NEG NORMAL: Negative [facility] Ketones [Presence] in Urine by Test strip 15 NORMAL: Negative [facility] Protein [Mass/volume] in Urine by Test strip 30 NORMAL: Negat [facility] Nitrite [Presence] in Urine by Test strip NEG NORMAL: Negative [facility] BLOOD 150 NORMAL: Negative [facility] Leukocyte esterase [Presence] in Urine by Test strip 25 [place] L: Negative [facility] [facility] Urobilinogen [Mass/volume] in Urine by Test strip 4 less tito n 1.0 mg/dL [facility] MICROSCOPIC See Below [facility] ital WBC 0 - 1 NORMAL: NONE SEEN [facility] Erythrocytes [#/volume] in Urine by Test strip 0 - 1 NORMAL: NON E SEEN [facility] EPITHELIAL MANY NORMAL: NONE SEEN [facility] Bacteria [Presence] in Urine sediment by Light microscopy 1+ SMALL NORMAL: NONE SEEN [facility] Amorphous sediment [Presence] in Urine sediment by Light chelsey roscopy 3+ NORMAL: NONE SEEN [facility] ID Date Data Source [id number] 12/09/2019 03:59:00 AM EDT [facility] [address] [place] [address] RESPIRATORY CARE REPORT ==== ---------NAME------- NUMBER SEX AGE ADMIT DISC. XRAY# F/C JOSS Martinez [id number] F 24 12/07/19 12/07/19 [id number] [id number] E/R DATE OF : 1995 M/R# [id number] #: [id number] [id number] LOCATION: [place] [id number] COMP LETE:12/08/19 07:50 EWW [id number] PHYSICIAN: TANYA JACOBS Name Value Range Interpretation Code Description Data Michelle rce(s) Supporting Document(s) ID Date Data Source [id number] 12/07/2019 06:58:[address] [facility] [address] [facility] Emergency Department [address] [place] [address] Phone #: ext- [phone] 12/07/2019 18:51 Patient: NATALIYA BEASLEY Sex: F : 1995 Age: 24yWEIGHT:58.9 kg (S) HEIGHT:63 inches (S) BMI:23.0ALLERGIES: No Known Drug AllergyCHIEF COMPLAINT: vomitingDIAGNOSIS: VomitingLAB ORDERSOrder Description Priority Entered Acknowledged InitialedCBC w Diff STAT 19:12/07/2019 19:13 Alexia Kemp Riccardo R.N. M.D.;CMP STAT 19:12/07/2019 19:13 Alexia Kemp Riccardo R.N. M.D.;Lipase STAT 19:12/07/2019 19:13 Alexia Kemp Riccardo R.N. M.D.;Urinalysis (Clean STAT 19:12/07/2019Leena Huizar M.D.;Beta-HCG, Qual STAT 19:12/07/2019 19:13 Morgan Kemp Riccardo R.N. M.D.;Magnesium STAT 19:12/07/2019 19:13 Alexia Kemp Riccardo R.N. M.D.;Troponin-T STAT 19:10 12/07/2019 19:13 Alexia Kemp Riccardo R.N. M.D.;Urine Drug Screen STAT 19:11 12/07/2019 19:13 Alexia Kemp Riccardo R.N. M.D.;ETOH STAT 19:14 12/07/2019 19:21 Tanya Melton Riccardo Robert R.N. M.D.;DIAGNOSTIC STUDY ORDERSOrder Description Priority Entered Acknowledged Initialed [address] [facility] Emergency Department [address] [place] [address] Phone #: ext- [phone] 12/07/2019 18:51 Patient: NATALIYA BEASLEY Sex: F : 1995 Age: 24 yMEDICATION/IV/DRIP/FLUID ORDERSOrder Description Priority Entered Acknowledged InitialedPhenergan 25 mg 19:10 12/07/2019 19:14 Abigail Kemp 50 mL NS, give Leena Martínez R.NSvetawide open: 25 mg M.D.;(NOW x1, HIGHALERTMEDICATION)NS IV 1000 mL 19:10 12/07/2019 19:15 Alexia KempBolus: : Bolus 1000 Leena Martínez R.N.mL (X1) M.D.;Magnesium Sulfate 19:55 12/07/2019 20:18 Geronimo,2 g IVPB X1 dose: 2 Turrin, Leena Mariano R.N.gm (HIGH ALERT M.D.;MEDICATION, X1)Pepcid IVPB 20 19:55 12/07/2019 20:17 Melton,mg/50mL (NOW x1, Turrin, Leena Mariano R.N.Infuse over 30 M.D.;minutes.)Protonix IVPB 40 19:55 12/07/2019 20:13 Geronimo,mg with Dextrose Leena Martínez R.NSveta100 ml spike bag M.D.;(D5W)GENERAL ORDERSOrder Description Priority Entered Acknowledged InitialedNPO 19:12/07/2019 19:13 Alexia Kemp Riccardo R.N. M.D.;Saline Lock 19:12/07/2019 19:13 Alexia Kemp Riccardo R.N. M.D.;EKG 19:12/07/2019 19:13 Alexia Kemp Riccardo R.N. M.D.;Milieu Coordinator 19:12/07/2019 19:13 Alexia Kemp(continuous) Leena Martínez R.N., M.D.;[Electronically signed by Mariano Melton R.N. (:18 12/07/2019)][Electronically signed by Leena Martínez M.D. (22:34 12/07/2019)][Electronically locked by Mariano Melton R.N. (:12/07/2019)] Name Value Range Interpretation Code Description Data Michelle rce(s) Supporting Document(s) ID Date Data Source [id number] 12/07/2019 06:58:[address] [address] [facility] Emergency Department [address] [place] [address] Phone #: nlm- [phone] 12/07/2019 18:51 Patient: NATALIYA BEASLEY Sex: F [...] days -- Dispense 20 tablet.Refills: 0. Substitution permitted.[facility] #49 - [address] [place] [address]. .Pepcid 20 mg tablet Take 1 tablet twice a day for 7 days -- Dispense 14 tablet. Refills: 0. Substitutionpermitted.[facility] #64 - [address] [place] [address]. . -- Leena Martínez M.D. Name Value Range Interpretation Code Description Data Michelle rce(s) Supporting Document(s) ID Date Data Source [id number] 12/07/2019 06:58:[address] [facility] [address] [facility] Emergency Department [address] [place] [address] Phone #: ext- [phone] 12/07/2019 18:51 Patient: [...] NS IV 1000 mL Bolus: : Bolus [id number] 12/07/2019 Dose: IV Fluids mL (X1)Alexia Kemp [...] 50 mL bagStop Site: #2 left AC21:00 12/07/2019aMriano Melton R.N.Start PEPCID [IVPB] Pepcid IVPB 20 [...] 100 mL bag21:01 12/07/2019 Site: #1 right [facility] InstituteMarian[facility] burrell R.N. Name Value Range Interpretation Code Description Data Michelle rce(s) Supporting Document(s) ID Date Data Source [id number] 12/07/2019 06:58:[address] [facility] [address] [facility] Emergency Department [address] [place] [address] Phone #: ext- [phone] 12/07/2019 18:51 Patient: [...] days -- Dispense 20 tablet.Refills: 0. Substitution permitted.[facility] #13 - [address] [place] [address]. .Pepcid 20 mg tablet Take 1 tablet twice a day for 7 days -- Dispense 14 tablet. Refills: 0. Substitutionpermitted.[facility] #61 - [address] [place] [address]. .Follow-up:Return to the emergency department as needed. [...] to plan of care. [address] [facility] [facility] Emergency Department [address] [place] [address] Phone #: ext- [phone] 12/07/2019 18:51 Patient: NATALIYA BEASLEY Sex: F [...] and water are not available, use alcohol-based military technology manager to keep from spreading the infection to [...] follow the diet below: [address] [facility] [facility] Emergency Department [address] [place] [address] Phone #: ext- [phone] 12/07/2019 18:51 Patient: [...] higher, or as directed [address] [facility] [facility] Emergency Department [address] [place] [address] Phone #: ext- [phone] 12/07/2019 18:51 Patient: NATALIYA BEASLEY Sex: F : 1995 Age: 24y Yellow color of the eyes or skin [id number] [employer]. [address] [place] [address]. All rights reserved. This information is not intended as asubstitute for professional medical care. Always follow your healthcare professional's instructions. You have been given the following additional information: Vomiting (Adult)(Electronically signed by Leena Martínez M.D. 12/07/2019 22:34) Name Value Range Interpretation Code Description Data Michelle rce(s) Supporting Document(s) ID Date Data Source [id number] 12/07/2019 06:58:[address] [facility] 1 Clinical Report - Nurses [facility] Emergency Department [address] [place] [address] Phone #: ext- [phone] 12/07/2019 18:51 Patient: [...] Last oral intake by patient was (9pm).Treatment DIGITAL SOLUTION ARCHITECT:None.SEPSIS SCREEN: SIRS Screen negative. Sepsis Screen negative. No suspected or confirmed signs ofinfection present. --18:57 12/07/19 Carmela Ocampo RN18:52 12/07/19. BP: 137/89. MAP: 105. HR: 100. RR: 14. O2 saturation: 100%. Temp: 98 F. Pain levelnow: 01/25. --18:57 12/07/19 Carmela Ocampo RN.Weight: 58.9 kg [...] no deficiencies. 2 Clinical Report - Nurses [facility] Emergency Department [address] [place] [address] Phone #: ext- [phone] 12/07/2019 18:51 Patient: NATALIYA BEASLEY [place] Llct#: [id number] Sex: F : 1995 Age: 24y FUNCTIONAL [...] on. Patientready for evaluation. --18:57 12/07/19 Carmela Ocampo, EASTON 18:57 12/07/2019 Site #1 started via IV in the right hand with an 20g angiocath; one attempt. Blood drawn. --18:57 12/07/19 Carmela Ocampo RN 19:12/07/2019 Site #2 started via IV in the left antecubital space with an 20g angiocath, with aseptic technique and good blood return; one attempt. Saline lock flushed. --19:12/07/19 Alexia Kemp R.N. 3 Clinical Report - Nurses [facility] Emergency Department [address] [place] [address] Phone #: ext- [phone] 12/07/2019 18:51 --------- Patient: NATALIYA BEASLEY Sex: [...] reaction and precautions.Verbalizes understanding. --19:12/07/19 Alexia Kemp R.N.19:12/07/2019 Started bag #1 1000 mL IV Fluids [...] 18. O2 saturation: 97%. Pain level now: 12/25.--19:12/07/19 Mariano Melton R.N.19:12/07/2019 Phenergan IVPB via IV site #1 Response: no adverse reaction pain is improving.Symptoms have improved the patient feels better. --19:22 12/07/19 Mariano Melton R.N.19:16 12/07/19. BP: 128/82. MAP: 97. HR: 77. RR: 25. O2 saturation: 96%. --19:26 12/07/19 Graciela Shields ER Xhgw322:00 12/07/2019 IV Fluids IV NS via IV site #1 Discontinued: bag #1 completed. Total amount infused:1000 mL. IV patency established. IV site checked: no pain, redness, or swelling. IV flushed thoroughly.--20:19 12/07/19 Mariano Melton R.N. 4 Clinical Report - Nurses [facility] Emergency Department [address] [place] [address] Phone #: ext- [phone] 12/07/2019 18:51 Patient: [...] and precautions.Verbalizes understanding. --20:18 12/07/19 Mariano Melton R.N.21:12/07/2019 Magnesium Sulfate Drip IV via IV site #2 Discontinued: bag #1 completed. Total amountinfused: 50 mL. IV patency established. IV site checked: no pain, redness, or swelling. IV flushedthmary ortiz. --21:00 12/07/19 Mariano Melton R.N.21:12/07/2019 Magnesium Sulfate Drip IV via IV site #2 Response: no adverse reaction pain isimproving. Symptoms have improved the patient feels better. --21:00 12/07/19 Mariano Melton R.N.21:12/07/2019 Pepcid IVPB via IV site #1 Discontinued: [...] Melton R.N. 5 Clinical Report - Nurses [facility] Emergency Department [address] [place] [address] Phone #: ext- [phone] 12/07/2019 18:51 Patient: NATALIYA BEASLEY Sex: F : 1995 Age: 24yDISPOSITION / DISCHARGE 21:12/07/2019 Site #2 removed upon discharge. Pressure dressing and bandaid applied. --21:12/07/19 Mariano Melton R.N. 21:12/07/2019 Site #1 removed upon discharge. Pressure dressing and bandaid applied. --21:12/07/19 Mariano Melton R.N. No learning barriers present. Discharge instructions provided and reviewed with the patient and parent. Reviewed warnings. Reviewed medication(s). Treatments reviewed. Reviewed referrals. Patient and parent verbalized understanding. Written instructions provided in Bruneian. The patient was discharged by the physician. She was discharged home and accompanied by parent. She left ambulatory and via private vehicle. Parent driving. Patient has no belongings. --21:13 12/07/19 Mariano Melton R.N. 21:11 12/07/19. BP: 108/71. MAP: 83. HR: 58. RR: 16. O2 saturation: 97%. Temp: 98.1 F. Pain level now: 07/25. --21:13 12/07/19 Mariano Melton R.N. Departure time: 21:13 12/07/2019. --21:13 12/07/19 Mariano Melton R.N .Locked/Released at 12/07/2019 21:18 by Mariano Melton R.N. Name Value Range Interpretation Code Description Data Michelle rce(s) Supporting Document(s) ID Date Data Source [id number] 12/07/2019 06:58:[address] [facility] [facility] 1 Clinical Report - Physicians/Mid Levels [facility] Emergency Department [address] [place] [address] Phone #: ext- [phone] 12/07/2019 18:51 Patient: [...] allergies. 2 Clinical Report - Physicians/Mid Levels [facility] Emergency Depa rtment [address] [place] [address] Phone #: ext- [phone] 12/07/2019 18:51 Patient: NATALIYA BEASLEY Sex: F : 1995 Age: 24yPHYSICAL EXAMVital Signs: 12/07/2019 19:19 BP: 129/82. MAP: 97. HR: 74. RR: 18. O2 saturation: 97%. Pain level now:8/10.12/07/2019 18:52 BP: 137/89. MAP: 105. HR: 100. [...] making process. ETOH: (ANGELY: 12/07/2019 19:00) ( [facility] 12/07/2019 19:44) Final results Test Result Flag Units (Reference) ALCOHOL ETHYL BLOOD CORRECTED REPORT ALCOHOL <10.0 MG/DL ALCOHOL % 0.00 % (0.00 - 0.01) *FOR MEDICAL PURPOSES ONLY* FOLLOWING RESULTS REPORTED IN ERROR ALCOHOL % { CORRECT CBC w Diff: (ANGELY: 12/07/2019 19:00) ( [facility] 12/07/2019 19:23) Final results Test Result Flag [...] 450) 3 Clinical Report - Physicians/Mid Levels [facility] Emergency Department [address] [place] [address] Phone #: ext- [phone] 12/07/2019 18:51 Patient: NATALIYA BEASLEY Sex: F [...] Male GFR Interprentation 20-49 yrs >60 mL/min Ueeays68-27 yrs >56 mL/min Normal 60-69 yrs >49 mL/min Normal 70-79yrs>42 mL/min Normal 80 and above >35 mL/min Normal Female GFRInterpretation 20-39 yrs >60 mL/min Normal 40-49 yrs >58 mL/minNormal 50-59 yrs >51 mL/min Normal 60-69 yrs >45 mL/min Sxzasi34-22 yrs >39 mL/min Normal 80 and above >32 mL/min NormalLipase: (ANGELY: 12/07/2019 19:00) ( MsgRcvd 12/07/2019 19:44) Final results Test Result Flag Units (Reference) LIPASE 12 L U/L (13 - 60)Beta-HCG, Qual Serum: (ANGELY: 12/07/2019 19:00) ( MsgRcvd 12/07/2019 19:39) Final results Test Result Flag Units (Reference) HCG SERUM QUAL NEGATIVE (NORMAL: NEGAT 4 Clinical Report - Physicians/Mid Levels [facility] Emergency Department [address] [place] [address] Phone #: ext- [phone] 12/07/2019 18:51 Patient: NATALIYA BEASLEY [employer] Llct#: [id number] Sex: F : 1995 Age: 24y HCG SERUM QL REENTER NEGATIVE (NORMAL: NEGAT { KIT LOT # [id number] ){ KIT EXP DATE 02.27.21 ){ PROCEDURAL CONTROL VALID ) Magnesium: (ANGELY: 12/07/2019 19:00) ( [facility] 12/07/2019 19:44) Final results Test Result Flag Units (Reference) MAGNESIUM 1.3 L MG/DL (1.7 - 2.2) Troponin-T: (ANGELY: 12/07/2019 19:00) ( Wig[facility] 12/07/2019 19:42) Final results Test Result Flag [...] CANNABIS USE). 5 Clinical Report - Physicians/Mid [facility] Emergency Department [address] [place] [address] Phone #: ext- [phone] 12/07/2019 18:51 Patient: NATALIYA BEASLEY Sex: F [...] Dispense 20 tablet. Refills: 0. Substitution permitted. [facility] #48 - [address] [place] [address]. . Pepcid 20 mg tablet Take 1 tablet twice a day for 7 days -- Dispense 14 tablet. Refills: 0. Substitution permitted. [facility] #87 - [address] [place] [address]. . Follow- up: Return to the emergency [...] rce(s) Supporting Document(s) ID Date Data Source [id number] 12/07/2019 07:44:00 PM [facility] Value Range Interpretation Code Description Data Michelle rce(s) Supporting Document(s) Magnesium [Mass/volume] in Serum or Plasma 1.3 MG/DL 1.7 - 2.[address] [facility] ID Date Data Source [id number] 12/07/2019 07:44:00 PM [facility] Name Value Range Interpretation Code Description Data Michelle rce(s) Supporting Document(s) Lipase [Enzymatic activity/volume] in Serum or Plasma 12 U/L 13 - [address] [facility] ID Date Data Source [id number] 12/07/2019 07:43:00 PM [facility] Value Range Interpretation Code Description Data Michelle rce(s) Supporting Document(s) ALCOHOL ETHYL BLOOD [facility] CORRECTE D REPORT Ethanol [Moles/volume] in Blood <10.0 MG/DL [facility] ALCOHOL % 0.00 % 0.00 - 0.01 [facility] Hosp ital *FOR MEDICAL PURPOSES ONLY * FOLLOWING RESULTS REPORTED IN ERROR ALCOHOL % { CORRECT ID Date Data Source [id number] 12/07/2019 07:43:[address] [facility] Name Value Range Interpretation Code Description Data Michelle rce(s) Supporting Document(s) COMPREHENSIVE METABOLIC PANEL [facility] COMPREHENSIVE METABOLIC PANEL Sodium [Moles/volume] in Serum or Plasma 140 mEq/L 134 - 153 [facility] Potassium [Moles/volume] in Serum or Plasma 4.4 mEq/L 3.6 - 5.0 [facility] Chloride [Moles/volume] in Serum or Plasma 94 mEq/L 98 - [address] [facility] Carbon dioxide, total [Moles/volume] in Serum or Plasma 23 MEQ/L 22 - 30 [facility] Glucose [Mass/volume] in Serum or Plasma 127 MG/DL 65 - [address] [facility] BUN 12 MG/DL 7 - 21 [facility] al Creatinine [Mass/volume] in Serum or Plasma 0.6 MG/DL 0.7 - 1.[address] [facility] BUN/CREAT 20 8 - 27 [facility] al Protein [Mass/volume] in Serum or Plasma 8.1 G/DL 6.3 - 8.2 [facility] Albumin [Mass/volume] in Serum or Plasma 5.1 G/DL 3.9 - 5.[address] [facility] Globulin [Mass/volume] in Serum by calculation 3.0 GM/DL 2.4 - 3.2 [facility] A/G RATIO 1.7 0.8 - 2.0 [facility] al Calcium [Mass/volume] in Serum or Plasma 10.8 MG/DL 8.4 - 10.[address] [facility] Bilirubin.total [Mass/volume] in Serum or Plasma 0.8 MG/DL 0.2 - 1.3 [facility] Alkaline phosphatase [Enzymatic activity/volume] in Serum or Plasma 82 U/L 38 - 126 [facility] Aspartate aminotransferase [Enzymatic activity/volume] in Serum or Plasma 22 U/L 5 - 40 [facility] Alanine aminotransferase [Enzymatic activity/volume] in Seru m or Plasma 26 U/L 7 - 56 [facility] Anion gap 3 in Serum or Plasma 23.0 mmol/L 8.0 - 16.[address] [facility] AGE 24 yrs [facility] al NON-AA GFR >60 mL/min [facility] ital AFR AMER GFR >60 mL/min [facility] Ho spital Male GFR In terprentation [...] >32 mL/min Normal ID Date Data Source [id number] 12/07/2019 07:42:[address] [facility] Name Value Range Interpretation Code Description Data Michelle rce(s) Supporting Document(s) TROPONIN T <0.01 NG/ML 0.00 - 0.10 [facility] ospital TROPONIN T0.1 ng/ml Recommended as the c linical threshold value forTroponin T. ID Date Data Source [id number] 12/07/2019 07:38:[address] [facility] Name Value Range Interpretation Code Description Data Michelle rce(s) Supporting Document(s) HCG SERUM QUAL NEGATIVE NORMAL: NEGATIVE [facility] HCG SERUM QL REENTER NEGATIVE NORMAL: NEGATIVE [facility] { KIT LOT # [id number] ){ KIT EXP DATE 02.27.21 ){ PROCEDURAL CONTROL VALID ) ID Date Data Source [id number] 12/07/2019 07:23:[address] [facility] Name Value Range Interpretation Code Description Data Michelle rce(s) Supporting Document(s) CBC W/AUTOMATED DIFF [facility] COMPLETE BLOOD COUNT Leukocytes [#/volume] in Blood by Automated count 14.8 10^3/uL 4.2 - 11.[address] [facility] Erythrocytes [#/volume] in Blood by Automated count 4.77 10^6/uL 4. 20 - 5.40 [facility] Hemoglobin [Mass/volume] in Blood 15.0 g/dL 12.0 - 16.0 [facility] Hematocrit [Volume Fraction] of Blood by Automated count 43.9 % 3 7.0 - 47.0 [facility] Erythrocyte mean corpuscular volume [Entitic volume] by Auto mated count 92.0 fL 81.0 - 101 [facility] Erythrocyte mean corpuscular hemoglobin [Entitic mass] by Automated count 31.4 pg 27.0 - 34.0 [facility] Erythrocyte mean corpuscular hemoglobin concentration [Mass/volume] by Automated count 34.2 g/dL 31.0 - 36.0 [facility] Erythrocyte distribution width [Ratio] by Automated count 13.1 % 11.5 - 14.5 [facility] Platelets [#/volume] in Blood by Automated count 387 10^3/uL 150 - [address] [facility] Platelet mean volume [Entitic volume] in Blood by Automated count 10.0 fL 7.4 - 10.4 [facility] Neutrophils/100 leukocytes in Blood by Automated count 88.4 % 37. 0 - 80.[address] [facility] Lymphocytes/100 leukocytes in Blood by Manual count 8.9 % 25.0 - 40.[address] [facility] Monocytes/100 leukocytes in Blood by Automated count 2.3 % 3.0 - 8.[address] [facility] Eosinophils/100 leukocytes in Blood by Automated count 0.0 % 0.0 - 7.0 [facility] Basophils/100 leukocytes in Blood by Automated count 0.1 % 0.0 - 2.5 [facility] %IG 0.3 % 0.0 - 0.0 [facility] %NRBC 0.0 % 0.0 - 0.0 [facility] al Neutrophils [#/volume] in Blood by Automated count 13.06 10^3/uL 2. 00 - 6.[address] [facility] Lymphocytes [#/volume] in Blood by Automated count 1.32 10^3/uL 0.60 - 3.40 [facility] Monocytes [#/volume] in Blood by Automated count 0.34 10^3/uL 0.00 - 0.90 [facility] Eosinophils [#/volume] in Blood by Automated count 0.00 10^3/uL 0.00 - 0.70 [facility] Basophils [#/volume] in Blood by Automated count 0.02 10^3/uL 0.00 - 0.20 [facility] #IG 0.04 10^3/uL 0.00 - 0.10 [facility] ospital #NRBC 0.00 10^3/uL 0.00 - 0.00 [facility] ospital MANUAL DIFF NOT INDICATED [facility] RBC MORPH NOT INDICATED [facility] spital ID Date Data Source [id number] 11/26/2019 12:29:00 PM EDT [facility] [address] [place] [address] RESPIRATORY CARE REPORT ==== ---------NAME------- NUMBER SEX AGE ADMIT DISC. XRAY# F/C ANDREIAKIANADE NATALIYA Martinez [id number] F 24 11/24/19 [id number] O/P DATE OF : 1995 M/R# [id number] #: [id number] LOCATION: EMERGENCY DEPT EKG [id number] COMP LETE:11/26/19 07:34 [place] [id number] PHYSICIAN: CLAUDIO Name Value Range Interpretation Code Description Data Michelle rce(s) Supporting Document(s) ID Date Data Source [id number] 11/26/2019 07:54:[address] [facility] Name Value Range Interpretation Code Description Data Michelle rce(s) Supporting Document(s) BASIC METABOLIC PANEL [facility] BASIC METABOLIC PANEL Sodium [Moles/volume] in Serum or Plasma 135 mEq/L 134 - 153 [facility] Potassium [Moles/volume] in Serum or Plasma 4.0 mEq/L 3.6 - 5.0 [facility] Chloride [Moles/volume] in Serum or Plasma 102 mEq/L 98 - 107 [facility] Carbon dioxide, total [Moles/volume] in Serum or Plasma 26 MEQ/L 22 - 30 [facility] Glucose [Mass/volume] in Serum or Plasma 89 MG/DL 65 - 110 [facility] BUN 5 MG/DL 7 - 21 L [facility] al Creatinine [Mass/volume] in Serum or Plasma 0.5 MG/DL 0.7 - 1.[address] [facility] BUN/CREAT 10 8 - 27 [facility] Calcium [Mass/volume] in Serum or Plasma 8.7 MG/DL 8.4 - 10.2 [facility] Anion gap 3 in Serum or Plasma 7.0 mmol/L 8.0 - 16.[address] [facility] AGE 24 yrs [facility] al AFR AMER GFR >60 mL/min [facility] Ho spital NON-AA GFR >60 mL/min [facility] ital Male GFR Inter prentation 20-49 [...] >32 mL/min Normal ID Date Data Source [id number] 11/26/2019 07:28:[address] [facility] Name Value Range Interpretation Code Description Data Michelle rce(s) Supporting Document(s) CBC NO DIFF [facility] ital COMPLETE BLOOD COUNT Leukocytes [#/volume] in Blood by Automated count 9.9 10^3/uL 4.2 - [address] [facility] Erythrocytes [#/volume] in Blood by Automated count 4.08 10^6/uL 4. 20 - 5.[address] [facility] Hemoglobin [Mass/volume] in Blood 12.7 g/dL 12.0 - 16.0 [facility] Hematocrit [Volume Fraction] of Blood by Automated count 38.0 % 3 7.0 - 47.0 [facility] Erythrocyte mean corpuscular volume [Entitic volume] by Auto mated count 93.1 fL 81.0 - 101 [facility] Erythrocyte mean corpuscular hemoglobin [Entitic mass] by Automated count 31.1 pg 27.0 - 34.0 [facility] Erythrocyte mean corpuscular hemoglobin concentration [Mass/volume] by Automated count 33.4 g/dL 31.0 - 36.0 [facility] Erythrocyte distribution width [Ratio] by Automated count 12.2 % 11.5 - 14.5 [facility] Platelets [#/volume] in Blood by Automated count 196 10^3/uL 150 - [address] [facility] Platelet mean volume [Entitic volume] in Blood by Automated count 10.3 fL 7.4 - 10.4 [facility] ID Date Data Source [id number] 11/26/2019 02:54:[address] [facility] Name Value Range Interpretation Code Description Data Michelle rce(s) Supporting Document(s) BASIC METABOLIC PANEL [facility] BASIC METABOLIC PANEL Sodium [Moles/volume] in Serum or Plasma 134 mEq/L 134 - 153 [facility] Potassium [Moles/volume] in Serum or Plasma 3.8 mEq/L 3.6 - 5.0 [facility] Chloride [Moles/volume] in Serum or Plasma 100 mEq/L 98 - 107 [facility] Carbon dioxide, total [Moles/volume] in Serum or Plasma 27 MEQ/L 22 - 30 [facility] Glucose [Mass/volume] in Serum or Plasma 82 MG/DL 65 - 110 [facility] BUN 7 MG/DL 7 - [facility] Creat[facility] [Mass/volume] in Serum or Plasma 0.5 MG/DL 0.7 - 1.[address] [facility] BUN/CREAT 14 8 - 27 [facility] Calcium [Mass/volume] in Serum or Plasma 8.6 MG/DL 8.4 - 10.2 [facility] Anion gap 3 in Serum or Plasma 7.0 mmol/L 8.0 - 16.[address] [facility] AGE 24 yrs [facility] al AFR AMER GFR >60 mL/min [facility] Ho spital NON-AA GFR >60 mL/min [facility] Hosp ital Male GFR Inter prentation [...] >32 mL/min Normal ID Date Data Source [id number] 11/25/2019 10:11:[address] [facility] Name Value Range Interpretation Code Description Data Michelle rce(s) Supporting Document(s) BASIC METABOLIC PANEL [facility] BASIC METABOLIC PANEL Sodium [Moles/volume] in Serum or Plasma 136 mEq/L 134 - 153 [facility] Potassium [Moles/volume] in Serum or Plasma 3.5 mEq/L 3.6 - 5.[address] [facility] Chloride [Moles/volume] in Serum or Plasma 99 mEq/L 98 - 107 [facility] Carbon dioxide, total [Moles/volume] in Serum or Plasma 27 MEQ/L 22 - 30 [facility] Glucose [Mass/volume] in Serum or Plasma 75 MG/DL 65 - 110 [facility] BUN 9 MG/DL 7 - 21 [facility] al Creatinine [Mass/volume] in Serum or Plasma 0.5 MG/DL 0.7 - 1.[address] [facility] BUN/CREAT 18 8 - 27 [facility] al Calcium [Mass/volume] in Serum or Plasma 8.8 MG/DL 8.4 - 10.2 [facility] Anion gap 3 in Serum or Plasma 10.0 mmol/L 8.0 - 16.0 [facility] 24 [facility] AMER GFR >60 mL/min [facility] Ho spital NON-AA GFR >60 mL/min [facility] ital Male GFR Inter prentation 20-49 [...] >32 mL/min Normal ID Date Data Source [id number] 11/25/2019 06:07:[address] [facility] Name Value Range Interpretation Code Description Data Michelle rce(s) Supporting Document(s) BASIC METABOLIC PANEL [facility] BASIC METABOLIC PANEL Sodium [Moles/volume] in Serum or Plasma 132 mEq/L 134 - [address] [facility] Potassium [Moles/volume] in Serum or Plasma 3.2 mEq/L 3.6 - 5.[address] [facility] Chloride [Moles/volume] in Serum or Plasma 94 mEq/L 98 - [address] [facility] Carbon dioxide, total [Moles/volume] in Serum or Plasma 28 MEQ/L 22 - 30 [facility] Glucose [Mass/volume] in Serum or Plasma 86 MG/DL 65 - 110 [facility] BUN 11 MG/DL 7 - 21 [facility] al Creatinine [Mass/volume] in Serum or Plasma 0.6 MG/DL 0.7 - 1.[address] [facility] BUN/CREAT 18 8 - 27 [facility] Calcium [Mass/volume] in Serum or Plasma 8.7 MG/DL 8.4 - 10.2 [facility] Anion gap 3 in Serum or Plasma 10.0 mmol/L 8.0 - 16.0 [facility] AGE 24 yrs [facility] al AFR AMER GFR >60 mL/min [facility] Ho spital NON-AA GFR >60 mL/min [facility] ital Male GFR Inter prentation 20-49 [...] >32 mL/min Normal ID Date Data Source [id number] 11/25/2019 01:04:00 PM EDT [facility] [address] [place] [address] RESPIRATORY CARE REPORT ==== ---------NAME------- NUMBER SEX AGE ADMIT DISC. XRAY# F/C TYPERITTER CHINYERESIENNA E [id number] F 24 11/24/19 [id number] X6B O/P DATE OF : 1995 M/R# [id number] PH#: [phone] LOCATION: EMERGENCY DEPT EKG [id number] COMP LETE:11/25/19 06:00 PAD [id number] PHYSICIAN: CLAUDIO Name Value Range Interpretation Code Description Data Michelle rce(s) Supporting Document(s) ID Date Data Source [id number] 11/25/2019 01:35:[address] [facility] Name Value Range Interpretation Code Description Data Michelle rce(s) Supporting Document(s) BASIC METABOLIC PANEL [facility] BASIC METABOLIC PANEL Sodium [Moles/volume] in Serum or Plasma 133 mEq/L 134 - [address] [facility] Potassium [Moles/volume] in Serum or Plasma 3.3 mEq/L 3.6 - 5.[address] [facility] Chloride [Moles/volume] in Serum or Plasma 93 mEq/L 98 - [address] [facility] Carbon dioxide, total [Moles/volume] in Serum or Plasma 32 MEQ/L 22 - [address] [facility] Glucose [Mass/volume] in Serum or Plasma 84 MG/DL 65 - 110 [facility] BUN 12 MG/DL 7 - 21 [facility] Creatinine [Mass/volume] in Serum or Plasma 0.6 MG/DL 0.7 - 1.[address] [facility] BUN/CREAT 20 8 - 27 [facility] Calcium [Mass/volume] in Serum or Plasma 8.9 MG/DL 8.4 - 10.2 [facility] Anion gap 3 in Serum or Plasma 8.0 mmol/L 8.0 - 16.0 [facility]GE 24 [facility] AMER GFR >60 mL/min [facility] Ho spital NON-AA GFR >60 mL/min [facility] ital Male GFR Inter prentation 20-49 [...] >32 mL/min Normal ID Date Data Source [id number] 11/25/2019 10:02:00 AM EDT [facility] [address] [place] [address] PHONE: [phone] FAX: [phone] Name .................. : RITTER NATALIYA Martinez Acct Number.................. : [id number] ROOM. ................. : TR-04 MR Number ................... : [id number] Stay type ............. : E/R Discharge Date......... ... : Admit Date ......... : 11/24/19 Admit Phys .................... : PAUL Vazquez Date of ....... : 1995 Family Phys ................... : ZAY LÓPEZ Phone .................. : [phone] Age ................................ : 24 Film# .................. .:[id number] Sex ................................. : F Unsigned transcriptions are preliminary reports and do not represent a medical or legal document CT ABD & PELVIS W/ IV ONLY [id number] COMPLETE:11/24/19 18:06 RLB [id number] Reason(s): Abdominal Pain CT OF THE ABDOMEN [...] and Signed By Page [address] [facility] [address] [place] [address] PHONE: [phone] FAX: [phone] Name .................. : RITTER NATALIYA Martinez Acct Number.................. : [id number] ROOM. ................. : TR-04 MR Number ................... : [id number] Stay type ............. : E/R Discharge Date......... ... : Admit Date ......... : 11/24/19 Admit Phys .................... : AMERNATH L Date of ....... : 1995 Family Phys ................... : [employer] Phone .................. : [phone] Age ................................ : 24 Film# .................. .:[id number] Sex ................................. : F Unsigned transcriptions are preliminary reports and do not represent a medical or legal document CT ABD & PELVIS W/ IV ONLY [id number] COMPLETE:11/24/19 18:06 RLB [id number] Reason(s): Abdominal Pain Genaro Lozoya M.D. , 11/25/19 10:02, [place] Transcribe Initials: FAHAD , Transcribe Date: 11/24/19 20:06, Dictation Date: Copy for: EMERGENCY DEPT via [facility] Copy for: 710 MED REC Page 2 of 2 Name Value Range Interpretation Code Description Data Michelle rce(s) Supporting Document(s) ID Date Data Source [id number] 11/25/2019 06:53:[address] [facility] Name Value Range Interpretation Code Description Data Michelle rce(s) Supporting Document(s) Magnesium [Mass/volume] in Serum or Plasma 2.5 MG/DL 1.7 - 2.[address] [facility] ID Date Data Source [id number] 11/25/2019 06:53:[address] [facility] Name Value Range Interpretation Code Description Data Michelle rce(s) Supporting Document(s) COMPREHENSIVE METABOLIC PANEL [facility] COMPREHENSIVE METABOLIC PANEL Sodium [Moles/volume] in Serum or Plasma 131 mEq/L 134 - [address] [facility] Potassium [Moles/volume] in Serum or Plasma 3.5 mEq/L 3.6 - 5.[address] [facility] Chloride [Moles/volume] in Serum or Plasma 86 mEq/L 98 - [address] [facility] Carbon dioxide, total [Moles/volume] in Serum or Plasma 35 MEQ/L 22 - [address] [facility] Glucose [Mass/volume] in Serum or Plasma 85 MG/DL 65 - 110 [facility] BUN 16 MG/DL 7 - 21 [facility] al Creatinine [Mass/volume] in Serum or Plasma 0.6 MG/DL 0.7 - 1.[address] [facility] BUN/CREAT 27 8 - 27 [facility] al Protein [Mass/volume] in Serum or Plasma 6.4 G/DL 6.3 - 8.2 [facility] Albumin [Mass/volume] in Serum or Plasma 4.3 G/DL 3.9 - 5.0 [facility] Globulin [Mass/volume] in Serum by calculation 2.1 GM/DL 2.4 - 3.[address] [facility] A/G RATIO 2.0 0.8 - 2.0 [facility] Calcium [Mass/volume] in Serum or Plasma 9.2 MG/DL 8.4 - 10.2 [facility] Bilirubin.total [Mass/volume] in Serum or Plasma 1.1 MG/DL 0.2 - 1.3 [facility] Alkaline phosphatase [Enzymatic activity/volume] in Serum or Plasma 70 U/L 38 - 126 [facility] Aspartate aminotransferase [Enzymatic activity/volume] in Serum or Plasma 26 U/L 5 - 40 [facility] Alanine aminotransferase [Enzymatic activity/volume] in Seru m or Plasma 29 U/L 7 - 56 [facility] Anion gap 3 in Serum or Plasma 10.0 mmol/L 8.0 - 16.0 [facility] AGE 24 yrs [facility] NON-AA GFR >60 mL/min [facility]osp ital AFR AMER GFR >60 mL/min [facility] Ho spital Male GFR In terprentation [...] >32 mL/min Normal ID Date Data Source [id number] 11/25/2019 06:24:[address] [facility] Name Value Range Interpretation Code Description Data Michelle rce(s) Supporting Document(s) CBC W/AUTOMATED DIFF [facility] COMPLETE BLOOD COUNT Leukocytes [#/volume] in Blood by Automated count 10.0 10^3/uL 4.2 - 11.0 [facility] Erythrocytes [#/volume] in Blood by Automated count 4.70 10^6/uL 4. 20 - 5.40 [facility] Hemoglobin [Mass/volume] in Blood 14.7 g/dL 12.0 - 16.0 [facility] Hematocrit [Volume Fraction] of Blood by Automated count 41.5 % 3 7.0 - 47.0 [facility] Erythrocyte mean corpuscular volume [Entitic volume] by Auto mated count 88.3 fL 81.0 - 101 [facility] Erythrocyte mean corpuscular hemoglobin [Entitic mass] by Automated count 31.3 pg 27.0 - 34.0 [facility] Erythrocyte mean corpuscular hemoglobin concentration [Mass/volume] by Automated count 35.4 g/dL 31.0 - 36.0 [facility] Erythrocyte distribution width [Ratio] by Automated count 12.0 % 11.5 - 14.5 [facility] Platelets [#/volume] in Blood by Automated count 241 10^3/uL 150 - [address] [facility] Platelet mean volume [Entitic volume] in Blood by Automated count 10.6 fL 7.4 - 10.[address] [facility] Neutrophils/100 leukocytes in Blood by Automated count 65.5 % 37. 0 - 80.0 [facility] Lymphocytes/100 leukocytes in Blood by Manual count 23.7 % 25.0 - 40.[address] [facility] Monocytes/100 leukocytes in Blood by Automated count 9.3 % 3.0 - 8.[address] [facility] Eosinophils/100 leukocytes in Blood by Automated count 0.7 % 0.0 - 7.0 [facility] Basophils/100 leukocytes in Blood by Automated count 0.2 % 0.0 - 2.5 [facility] %IG 0.6 % 0.0 - 0.0 [facility] %NRBC 0.0 % 0.0 - 0.0 [facility] al Neutrophils [#/volume] in Blood by Automated count 6.51 10^3/uL 2.00 - 6.90 [facility] Lymphocytes [#/volume] in Blood by Automated count 2.36 10^3/uL 0.60 - 3.40 [facility] Monocytes [#/volume] in Blood by Automated count 0.93 10^3/uL 0.00 - 0.[address] [facility] Eosinophils [#/volume] in Blood by Automated count 0.07 10^3/uL 0.00 - 0.70 [facility] Basophils [#/volume] in Blood by Automated count 0.02 10^3/uL 0.00 - 0.20 [facility] #IG 0.06 10^3/uL 0.00 - 0.10 [facility] ospital #NRBC 0.00 10^3/uL 0.00 - 0.00 [facility] ospital MANUAL DIFF NOT INDICATED [facility] RBC MORPH NOT INDICATED [facility] spital ID Date Data Source [id number] 11/25/2019 01:45:[address] [facility] Name Value Range Interpretation Code Description Data Michelle rce(s) Supporting Document(s) BASIC METABOLIC PANEL [facility] BASIC METABOLIC PANEL Sodium [Moles/volume] in Serum or Plasma 127 mEq/L 134 - [address] [facility] Potassium [Moles/volume] in Serum or Plasma 2.4 mEq/L 3.6 - 5.[address] [facility] CALL/ READ BACK JASON [facility] BY: DAMON [facility] DATE/TIME 11/25/[address] [facility] Chloride [Moles/volume] in Serum or Plasma 80 mEq/L 98 - [address] [facility] Carbon dioxide, total [Moles/volume] in Serum or Plasma 36 MEQ/L 22 - [address] [facility] Glucose [Mass/volume] in Serum or Plasma 105 MG/DL 65 - 110 [facility] BUN 18 MG/DL 7 - 21 [facility] Creatinine [Mass/volume] in Serum or Plasma 0.7 MG/DL 0.7 - 1.5 [facility] BUN/CREAT 26 8 - 27 [facility] Calcium [Mass/volume] in Serum or Plasma 9.2 MG/DL 8.4 - 10.2 [facility] Anion gap 3 in Serum or Plasma 11.0 mmol/L 8.0 - 16.0 [facility] AGE 24 yrs [facility] AFR AMER GFR >60 mL/min [facility] Ho spital NON-AA GFR >60 mL/min [facility] ital Male GFR Inter prentation 20-49 [...] >32 mL/min Normal ID Date Data Source [id number] 11/24/2019 05:12:[address] [facility] [address] [facility] Emergency Department [address] [place] [address] Phone #: ext- [phone] 11/24/2019 16:57 Patient: NATALIYA BEASLEY [place] Llct#: [id number] Sex: F : 1995 Age: 24yWEIGHT:58.9 kg (S) HEIGHT:63 inches (S) BMI:23.0ALLERGIES: NoneCHIEF COMPLAINT: vomitingDIAGNOSIS: Vomiting, Gastritis, Hyponatremia, HypokalemiaLAB ORDERSOrder Description Priority Entered Acknowledged InitialedBeta-HCG, Qual STAT 17:14 11/24/2019 17:17 Sorbero,Serum Ariel MillerNSveta Jha;CBC w Diff STAT 17:14 11/24/2019 17:17 Paul Fortune Lingappa Frank R.N. MNakul;CMP STAT 17:14 11/24/2019 17:17 Paul Fortune Lingappa Frank R.NSveta MNakul;Lipase STAT 17:14 11/24/2019 17:17 Paul Fortune Lingappa Frank R.NSveta MNakul;Urinalysis (Clean STAT 17:14 11/24/2019 19:09 Devika,Catch) Ariel [...] STAT 17:15 11/24/2019 17:17 Devika, [address] [facility] Emergency Department [address] [place] [address] Phone #: ext- [phone] 11/24/2019 16:57 Patient: NATALIYA BEASLEY Sex: F : 1995 Age: 24yContrast Only Ariel Miller R.N.(Oxygen?(No)) M.D.;(IV?(Yes)) Reason for Study: Abdominal PainMEDICATION/IV/DRIP/FLUID ORDERSOrder D [...] 18:17 11/24/2019 18:29 Sorbero,meq (NOW x1) Ariel MillerNSveta MSvetaDSveta;KCl IVPB 10 18:17 11/24/2019 18:29 Sorbero,meq/100mL Ariel MillerNSveta MSvetaDSveta;IV NS with with 40 STAT 18:20 11/24/2019 19:41 Sorbero,meq kcl in 1 liter Ariel Miller R.NSvetaat 200/hour: Bolus M.D.;200 mL, then 200mL/hr (NOW x1)GENERAL ORDERSOrder Description Priority Entered Acknowledged Initialed[Electronically signed by Aureliano Fortune R.N. (21:06 11/24/2019)][Electronically signed by Ariel Miller M.D. (00:42 11/25/2019)][Electronically locked by Aureliano Fortune R.N. (21:06 11/24/2019)] Name Value Range Interpretation Code Description Data Michelle rce(s) Supporting Document(s) ID Date Data Source [id number] 11/24/2019 05:12:[address] [facility] [address] [facility] Emergency Department [address] [place] [address] Phone #: ext- [phone] 11/24/2019 16:57 Patient: [...] rce(s) Supporting Document(s) ID Date Data Source [id number] 11/24/2019 05:12:[address] [facility] [address] [facility] Emergency Department [address] [place] [address] Phone #: ext- [phone] 11/24/2019 16:57 Patient: NATALIYA BEASLEY Sex: F : 1995 Age: 24yWeight: 58.9 kgHeight/Length: 63 inBMI: 23ALLERGIES: None Date/Time Medication Administered Medication OrderedStart NS [IV] NS IV : Bolus 1000 mL, then 42635:11/24/2019 Dose: IV Fluids mL/hr (NOW x1); Destin La RN Rate: 1000 mL/hr over 1 [...] 40 meq Syrup/Liquid POSAureliano de la cruz RPuraStart KCL [IVPB] KCl IVPB 10 meq/351oW65:29 11/24/2019 Dose: 10 meq IVPBSoAureliano lara RPura Rate: 100 mL/hr---- Dispensed: 100 mL bagStop [...] rce(s) Supporting Document(s) ID Date Data Source [id number] 11/24/2019 05:12:[address] [facility] [address] [facility] Emergency Department [address] [place] [address] Phone #: ext- [phone] 11/24/2019 16:57 Patient: [...] and water are not available, use alcohol-based military technology manager to keep from spreading the infection to [...] disease, or after a [address] [facility] Emergency Department [address] [place] [address] Phone #: ext- [phone] 11/24/2019 16:57 Patient: NATALIYA BAESLEY Sex: F : 1995 Age: 24y stroke) [...] coffee grounds Swollen belly [address] [facility] Emergency Department [address] [place] [address] Phone #: ext- [phone] 11/24/2019 16:57 Patient: NATALIYA BEASLEY Sex: F : 1995 Age: 24y Frequent diarrhea (more than 5 times a day); blood (red or black color) or mucus in diarrhea Reduced urine output or extreme thirst Weakness, dizziness or fainting Unusually drowsy or confused Fever of 100.4F (38C) oral or higher, or as directed Yellow color of the eyes or skin [phone] [employer]. [address] [place] [address]. All rights reserved. This information is not intended as asubstitute for professional medical care. Always follow your healthcare professional's instructions.Gastritis (Adult)Gastritis is inflammation and irritation of the stomach lining. You can have it for a short time (acute) julieta long lasting (chronic). Infection with bacteria called H pylori most often causes gastritis. More thana third of people in the have these bacteria in their bodies. In [...] can also cause gastritis. [address] [facility] Emergency Department [address] [place] [address] Phone #: ext- [phone] 11/24/2019 16:57 Patient: [...] (can't keep down liquids) [address] [facility] Emergency Department [address] [place] [address] Phone #: ext- [phone] 11/24/2019 16:57 Patient: NATALIYA BEASLEY Sex: F : 1995 Age: 24y Blood in the stool or vomit (red or black in color) Feeling weak or dizzy Shortness of breath Unexplained weight loss Fever of 100.4F (38C) or higher, or as directed by your healthcare provider [phone] [employer]. [address] [place] [address]. All rights reserved. This information is not [...] fatigue, or muscle cramps [address] [facility] Emergency Department [address] [place] [address] Phone #: ext- [phone] 11/24/2019 16:57 Patient: NATALIYA BEASLEY Sex: F : 1995 Age: 24y DizzinessCall 911Call 911 if any of the following occur: Irregular heartbeat, extra beats, or very fast heart rate Loss of consciousness [phone] [employer]. [address] [place] [address]. All rights reserved. This information is not [...] of the following occur: [address] [facility] Emergency Department [address] [place] [address] Phone #: ext- [phone] 11/24/2019 16:57 Patient: NATALIYA BEASLEY Sex: F : 1995 Age: 24y Increasing weakness Dizziness Irregular heartbeat, extra beats or very fast heart rate Increasing confusion Fainting or loss of consciousness Seizure [phone] [employer]. [address] [place] [address]. All rights reserved. This information is not intended as asubstitute for professional medical care. Always follow your healthcare professional's instructions. You have been given the following additional information: Vomiting (Adult) Gastritis (Adult) Hypokalemia Hyponatremia(Electronically signed by Ariel Miller M.D. 11/25/2019 00:42) Name Value Range Interpretation Code Description Data Michelle rce(s) Supporting Document(s) ID Date Data Source [id number] 11/24/2019 05:12:[address] [facility] 1 Clinical Report - Nurses [facility] Emergency Department [address] [place] [address] Phone #: ext- [phone] 11/24/2019 16:57 Patient: NATALIYA BEASLEY Sex: F : 1995 Age: 24yTRIAGEArrived by private vehicle. Historian: family. Accompanied by family. ( went to [employer] thursdaywas drinking alcohol and started vomit with lower abd pain).Acuity: LEVEL 3.Chief Complaint: ABDOMINAL PAIN, NAUSEA and VOMITING.Alert. No acute distress.Onset. (last ). The patient has had constipation and abdominal pain. ( muscle spasms in legsand arms, last bm last ).Treatment DIGITAL SOLUTION ARCHITECT:None.SEPSIS SCREEN: SIRS Screen positive. --17:05 11/24/19 Alexia Kemp R.N.16:59 11/24/19. BP: 123/85. MAP: 97. HR: 95. RR: 18. O2 saturation: 100%. Temp: 98.4 F. Pain levelnow: /. --17:05 11/24/19 Alexia Kemp R.N.Weight: 58.9 kg [...] of CRE. 2 Clinical Report - Nurses [facility]. [facility] Emergency Department [address] [place] [address] Phone #: ext- [phone] 11/24/2019 16:57 Patient: [...] treatment room. --17:05 11/24/19 Alexia Kemp R.N.PHYSICAL [id number] 11/24/19. Ambulatory to room.GENERAL / NEURO / [...] ready for evaluation- ED physicianhumberto CLARK notified. --17:05 11/24/19 Alexia Kemp R.N. [...] and post-medication 3 Clinical Report - Nurses [facility] Emergency Department [address] [place] [address] Phone #: ext- [phone] 11/24/2019 16:57 Patient: NATALIYA BEASLEY Sex: F [...] Patient transported to CT by wheelchair with professor of radiology. --17:58 11/24/19 Aureliano Fortune RSvetaNSveta18:07 11/24/19. Patient returned from CT by wheelchair with professor of radiology. --18:12 11/24/19 Aureliano Fortune R.NSveta18:14 11/24/19. Critical value relayed by Prema Cevallos [...] precautions. Verbalizes understanding. --18:29 11/24/19 Aureliano Fortune R.N.18:29 11/24/2019 Started 10 meq of KCL IVPB [...] 11/24/2019). Critical value receivedby Edilma La RN (19:11/24/2019). Chloride 69. K: 2.4. Critical value read back. Verified lab 4 Clinical Report - Nurses [facility] Emergency Department [address] [place] [address] Phone #: ext- [phone] 11/24/2019 16:57 Patient: NATALIYA BEASLEY Sex: F : 1995 Age: 24y result and patient ID. ED physician notifed of critical value (Dr Miller). Orders were received. --19:17 11/24/19 Edilma La RN 19:11/24/2019 IV Fluids NS via IV site #1 Discontinued: bag #1 infused. Total amount infused: 100 mL. IV patency established. IV site checked: no pain, redness, or swelling. IV flushed thoroughly. --19:11/24/19 Aureliano Fortune R.N. 19:38 11/24/2019 KCL IVPB [...] Fortune R.N. 5 Clinical Report - Nurses [facility] Emergency Department [address] [place] [address] Phone #: ext- [phone] 11/24/2019 16:57 Patient: NATALIYA BEASLEY Sex: F : 1995 Age: 24y 20:41 11/24/19. BP: 114/85. MAP: 94. HR: 85. RR: 16. O2 saturation: 95% on room air. Temp: 95.2 F. Pain level now: 0/10. --21:03 11/24/19 Aureliano Fortune R.N.Locked/Released at 11/24/2019 21:06 by Aureliano Fortune R.N. Name Value Range Interpretation Code Description Data Michelle rce(s) Supporting Document(s) ID Date Data Source [id number] 11/24/2019 05:12:[address] [facility] 1 Clinical Report - Physicians/Mid Levels [facility] Emergency Department [address] [place] [address] Phone #: ext- [phone] 11/24/2019 16:57 Patient: [...] described as moderate. (was [place] and drank quite a bit.been vomiting [...] weekly. 2 Clinical Report - Physicians/Mid Levels [facility] Emergency Department [address] [place] [address] Phone #: ext- [phone] 11/24/2019 16:57 Patient: NATALIYA BEASLEY [place] Llct#: [id number] Sex: F : 1995 Age: 24y Last [...] 1.5) 3 Clinical Report - Physicians/Mid Levels [facility] Emergency Department [address] [place] [address] Phone #: ext- [phone] 11/24/2019 16:57 Patient: NATALIYA BEASLEY Sex: F : 1995 Age: 24y BUN/CREAT 29 H (8 - 27) CALCIUM 10.0 MG/DL (8.4 - 10.2) ANION GAP 16.0 mmol/L (8.0 - 16.0) AGE 24 yrs AFR AMER GFR >60 mL/min NON-AA GFR >60 mL/min Male GFR Interprentation 20-49 yrs >60 mL/min Jhujwc45-51 yrs >56 mL/min Normal 60-69 yrs >49 mL/min Normal 70-79yrs>42 mL/min Normal 80 and above >35 mL/min Normal Female GFRInterpretation 20-39 yrs >60 mL/min Normal 40-49 yrs >58 mL/minNormal 50-59 yrs >51 mL/min Normal 60-69 yrs >45 mL/min Siycdh21-21 yrs >39 mL/min Normal 80 and above >32 mL/min NormalMagnesium: (ANGELY: 11/24/2019 17:15) ( MsgRcvd 11/24/2019 18:59) Final results Test Result Flag Units (Reference) MAGNESIUM 2.5 H MG/DL (1.7 - 2.2)Magnesium: (ANGELY: 11/24/2019 18:16) ( MsgRcvd 11/24/2019 18:32) CanceledCPK: (ANGELY: 11/24/2019 17:15) ( MsgRcvd 11/24/2019 18:04) Final results Test Result Flag Units (Reference) CPK 321 H U/L (30 - 170)CT Abd PEL W/ IV Contrast Only: (ANGELY: 0 11/24/2019 17:15) ( WigRcvd 11/24/2019 18:06) In ProgressCT ABDReason(s): Abdominal PainTRANSPORTATION: WC IV? IV?(Yes) O2? Oxygen?(No) RoBeta-HCG, Qual Serum: (ANGELY: 11/24/2019 17:15) ( MsgRcvd 11/24/2019 17:49) Final results Test Result Flag Units (Reference) HCG SERUM QUAL NEGATIVE (NORMAL: NEGAT HCG SERUM QL REENTER NEGATIVE (NORMAL: NEGAT { KIT LOT # [id number] ){ KIT EXP DATE02.27.21 ){ PROCEDURAL CONTROL VALID)CBC w Diff: (ANGELY: 11/24/2019 17:15) ( MsgRcvd 11/24/2019 18:06) Final results Test Result Flag [...] 40.0) 4 Clinical Report - Physicians/Mid Levels [facility] Emergency Department [address] [place] [address] Phone #: ext- [phone] 11/24/2019 16:57 Patient: NATALIYA BEASLEY Sex: F [...] Male GFR Interprentation 20-49 yrs >60 mL/min Gnzwdx40-79 yrs >56 mL/min Normal 60-69 yrs >49 mL/min Normal 70-79yrs>42 mL/min Normal 80 and above >35 mL/min Normal Female GFRInterpretation 20-39 yrs >60 mL/min Normal 40-49 yrs >58 mL/minNormal 50-59 yrs >51 mL/min Normal 60-69 yrs >45 mL/min Owcdcc14-53 yrs >39 mL/min Normal 80 and above >32 mL/min NormalLipase: (ANGELY: 11/24/2019 17:15) ( MsgRcvd 11/24/2019 18:04) Final results Test Result Flag Units (Reference) LIPASE 15 U/L (13 - 60) 5 Clinical Report - Physicians/Mid Levels [facility] Emergency Department [address] [place] [address] Phone #: ext- [phone] 11/24/2019 16:57 Patient: NATALIYA BEASLEY Sex: F [...] Discussed case with on-call health care provider, (19:17 Nov 24 2019 Sarah). Reviewed test results and need for additional work-up. Agreed upon treatment plan, need for patient follow-up and decision to admit. Health care provider will see patient in ED. Patient/family counseled. Disposition: Admitted. 19:18 Nov 24 2019.CLINICAL IMPRESSION Intractable vomiting with nausea, dehydration and volume depletion. Acute gastritis Hypokalemia Severe hyponatremia(Electronically signed by Ariel Miller M.D. 11/25/2019 00:42) Name Value Range Interpretation Code Description Data Michelle rce(s) Supporting Document(s) ID Date Data Source [id number] 11/24/2019 08:16:[address] [facility] Name Value Range Interpretation Code Description Data Michelle rce(s) Supporting Document(s) [facility] COL[facility] yellow NORMAL: Yellow [facility] CLARITY hazy NORMAL: Clear [facility] spital Specific gravity of Urine by Test strip 1.010 1.001 - 1.030 [facility] pH 8 5 - 9 [facility] Glucose [Mass/volume] in Urine by Test strip NORM NORMAL: Negat [facility] Bilirubin.total [Presence] in Urine by Test strip NEG NORMAL: Negative [facility] Ketones [Presence] in Urine by Test strip 5 NORMAL: Negative [facility] Protein [Mass/volume] in Urine by Test strip 15 NORMAL: Negat [facility] Nitrite [Presence] in Urine by Test strip NEG NORMAL: Negative [facility] BLOOD NEG NORMAL: Negative [facility] Leukocyte esterase [Presence] in Urine by Test strip NEG DAYLIN L: Negative [facility] Urobilinogen [Mass/volume] in Urine by Test strip 1 less tito n 1.0 mg/dL [facility] MICROSCOPIC See Below [facility] ital WBC 3 - 5 NORMAL: NONE SEEN [facility] Erythrocytes [#/volume] in Urine by Test strip 3 - 5 NORMAL: NON E SEEN [facility] EPITHELIAL MODERATE NORMAL: NONE SEEN [facility] Bacteria [Presence] in Urine sediment by Light microscopy 2+ MOD NORMAL: NONE SEEN [facility] Mucus [Presence] in Urine sediment by Light microscopy Trace NORMAL: NONE SEEN [facility] ID Date Data Source [id number] 11/24/2019 07:13:[address] [facility] Name Value Range Interpretation Code Description Data Michelle rce(s) Supporting Document(s) BASIC METABOLIC PANEL [facility] BASIC METABOLIC PANEL Sodium [Moles/volume] in Serum or Plasma 120 mEq/L 134 - [address] [facility] Potassium [Moles/volume] in Serum or Plasma 2.4 mEq/L 3.6 - 5.[address] [facility] CALL/ READ BACK EDILMA IN ED [facility] BY: ROCK [facility] al DATE/TIME [facility] ital Chloride [Moles/volume] in Serum or Plasma 69 mEq/L 98 - [address] [facility] CALLED CHLORIDE Carbon dioxide, total [Moles/volume] in Serum or Plasma 35 MEQ/L 22 - [address] [facility] Glucose [Mass/volume] in Serum or Plasma 113 MG/DL 65 - [address] [facility] BUN 23 MG/DL 7 - 21 H [facility] Creatinine [Mass/volume] in Serum or Plasma 0.8 MG/DL 0.7 - 1.5 [facility] BUN/CREAT 29 8 - 27 H [facility] al Calcium [Mass/volume] in Serum or Plasma 10.0 MG/DL 8.4 - 10.2 [facility] Anion gap 3 in Serum or Plasma 16.0 mmol/L 8.0 - 16.0 [facility] AGE 24 y[facility] A[facility] AMER GFR >60 mL/min [facility] sp[facility] NON-AA GFR >60 mL/min [facility] ital Male GFR Inter prentation 20-49 [...] >32 mL/min Normal ID Date Data Source [id number] 11/24/2019 06:59:[address] [facility] Name Value Range Interpretation Code Description Data Michelle rce(s) Supporting Document(s) Magnesium [Mass/volume] in Serum or Plasma 2.5 MG/DL 1.7 - 2.[address] [facility] ID Date Data Source [id number] 11/24/2019 06:14:[address] [facility] Name Value Range Interpretation Code Description Data Michelle rce(s) Supporting Document(s) COMPREHENSIVE METABOLIC PANEL [facility] COMPREHENSIVE METABOLIC PANEL Sodium [Moles/volume] in Serum or Plasma 122 mEq/L 134 - [address] [facility] Potassium [Moles/volume] in Serum or Plasma 2.2 mEq/L 3.6 - 5.[address] [facility] CALL/ READ BACK EDILMA IN ED [facility] BY: ROCK [facility] al DATE/TIME [facility] Chloride [Moles/volume] in Serum or Plasma <68 mEq/L 98 - [address] [facility] CHLORIDE RESULT CALLED [facility] Carbon dioxide, total [Moles/volume] in Serum or Plasma 35 MEQ/L 22 - [address] [facility] Glucose [Mass/volume] in Serum or Plasma 132 MG/DL 65 - [address] [facility] BUN 26 MG/DL 7 - 21 H [facility] Creatinine [Mass/volume] in Serum or Plasma 0.8 MG/DL 0.7 - 1.5 [facility] BUN/CREAT 33 8 - 27 H [facility] Protein [Mass/volume] in Serum or Plasma 8.7 G/DL 6.3 - 8.[address] [facility] Albumin [Mass/volume] in Serum or Plasma 5.4 G/DL 3.9 - 5.[address] [facility] Globulin [Mass/volume] in Serum by calculation 3.3 GM/DL 2.4 - 3.[address] [facility] A/G RATIO 1.6 0.8 - 2.0 [facility] Calcium [Mass/volume] in Serum or Plasma 10.5 MG/DL 8.4 - 10.[address] [facility] Bilirubin.total [Mass/volume] in Serum or Plasma 2.1 MG/DL 0.2 - 1.[address] [facility] Alkaline phosphatase [Enzymatic activity/volume] in Serum or Plasma 93 U/L 38 - 126 [facility] Aspartate aminotransferase [Enzymatic activity/volume] in Serum or Plasma 37 U/L 5 - 40 [facility] Alanine aminotransferase [Enzymatic activity/volume] in Seru m or Plasma 36 U/L 7 - 56 [facility] Anion gap 3 in Serum or Plasma 19.0 mmol/L 8.0 - 16.[address] [facility] AGE 24 yrs [facility] NON-AA GFR >60 mL/min [facility] ital AFR AMER GFR >60 mL/min [facility] sp[facility] Male GFR In terprentation [...] >32 mL/min Normal ID Date Data Source [id number] 11/24/2019 06:06:[address] [facility] Name Value Range Interpretation Code Description Data Michelle rce(s) Supporting Document(s) CBC W/AUTOMATED DIFF [facility] COMPLETE BLOOD COUNT Leukocytes [#/volume] in Blood by Automated count 17.0 10^3/uL 4.2 - 11.[address] [facility] Erythrocytes [#/volume] in Blood by Automated count 5.64 10^6/uL 4. 20 - 5.[address] [facility] Hemoglobin [Mass/volume] in Blood 17.8 g/dL 12.0 - 16.[address] [facility] Hematocrit [Volume Fraction] of Blood by Automated count 47.8 % 3 7.0 - 47.[address] [facility] Erythrocyte mean corpuscular volume [Entitic volume] by Auto mated count 84.8 fL 81.0 - 101 [facility] Erythrocyte mean corpuscular hemoglobin [Entitic mass] by Automated count 31.6 pg 27.0 - 34.0 [facility] Erythrocyte mean corpuscular hemoglobin concentration [Mass/volume] by Automated count 37.2 g/dL 31.0 - 36.[address] [facility] Erythrocyte distribution width [Ratio] by Automated count 11.8 % 11.5 - 14.5 [facility] Platelets [#/volume] in Blood by Automated count 324 10^3/uL 150 - [address] [facility] Platelet mean volume [Entitic volume] in Blood by Automated count 10.2 fL 7.4 - 10.4 [facility] Neutrophils/100 leukocytes in Blood by Automated count 79.6 % 37. 0 - 80.0 [facility] Lymphocytes/100 leukocytes in Blood by Manual count 11.8 % 25.0 - 40.[address] [facility] Monocytes/100 leukocytes in Blood by Automated count 7.4 % 3.0 - 8.0 [facility] Eosinophils/100 leukocytes in Blood by Automated count 0.1 % 0.0 - 7.0 [facility] Basophils/100 leukocytes in Blood by Automated count 0.2 % 0.0 - 2.5 [facility] %IG 0.9 % 0.0 - 0.0 H [facility] al %NRBC 0.0 % 0.0 - 0.0 [facility] al Neutrophils [#/volume] in Blood by Automated count 13.56 10^3/uL 2. 00 - 6.[address] [facility] Lymphocytes [#/volume] in Blood by Automated count 2.01 10^3/uL 0.60 - 3.40 [facility] Monocytes [#/volume] in Blood by Automated count 1.26 10^3/uL 0.00 - 0.[address] [facility] Eosinophils [#/volume] in Blood by Automated count 0.01 10^3/uL 0.00 - 0.70 [facility] Basophils [#/volume] in Blood by Automated count 0.04 10^3/uL 0.00 - 0.20 [facility] #IG 0.15 10^3/uL 0.00 - 0.10 H [facility]spital #NRBC 0.00 10^3/uL 0.00 - 0.00 [facility] ospital MANUAL DIFF SEE BELOW [facility] ital Segmented neutrophils/100 leukocytes in Blood by Manual count 77 % 37 - 80 [facility] %LYMPH 12 % 25 - 40 L [facility] al %MONO 11 % 3 - 8 H [facility] al RBC MORPH MORPH IS NORMAL [facility] ID Date Data Source [id number] 11/24/2019 06:04:[address] [facility] Name Value Range Interpretation Code Description Data Michelle rce(s) Supporting Document(s) Creatine kinase [Enzymatic activity/volume] in Serum or Plasma 3 21 U/L 30 - [address] [facility] ID Date Data Source [id number] 11/24/2019 06:04:[address] [facility] Name Value Range Interpretation Code Description Data Michelle rce(s) Supporting Document(s) Lipase [Enzymatic activity/volume] in Serum or Plasma 15 U/L 13 - 60 [facility] ID Date Data Source [id number] 11/24/2019 05:49:[address] [facility] Name Value Range Interpretation Code Description Data Michelle rce(s) Supporting Document(s) HCG SERUM QUAL NEGATIVE NORMAL: NEGATIVE [facility] HCG SERUM QL REENTER NEGATIVE NORMAL: NEGATIVE [facility] { KIT LOT # [id number] ){ KIT EXP DATE 02.27.21 ){ PROCEDURAL CONTROL VALID ) Procedure Vital Signs ID Date Data Source [id number] 12/30/2019 12:40:05 PM EDT [facility] Value Range Interpretation Code Description Data Source(s) WEIGHT RECORDED 138.00 pounds 138.00 pounds [facility] Height [address] [facility] ID Date Data Source [id number] 12/26/2019 05:03:[address] [facility] Name Value Range Interpretation Code Description Data Source(s) WEIGHT RECORDED 136.90 pounds 136.90 pounds [facility] Height [address] [facility] ID Date Data Source [id number] 12/26/2019 05:02:[address] [facility] Name Value Range Interpretation Code Description Data Source(s) WEIGHT RECORDED 133.90 pounds 133.90 pounds [facility] Height [address] [facility]
[2020-06-16 01:59] LABS: HEMATOCRIT 38.3 % (36.0-47.0); MEAN CORPUSCULAR HEMOGLOBIN 25.1 pg (27.0-33.0); MEAN CORPUSCULAR HGB CONC 32.6 g/dl (32.0-36.5); MEAN CORPUSCULAR VOLUME 76.8 fl (80.0-96.0); PLATELET COUNT, AUTOMATED 270 10^3/uL (150-450); RED BLOOD COUNT 4.99 10^6/uL (4.00-5.40); WHITE BLOOD COUNT 16.5 10^3/uL (4.0-10.0)
[2020-06-16 02:10] LABS: HEMOGLOBIN 12.5 g/dl (12.0-15.5)
[2020-06-16 02:52] LABS: ALBUMIN 3.4 GM/DL (3.2-5.2); ALT/SGPT 34 U/L (12-78); BILIRUBIN,TOTAL 0.7 MG/DL (0.2-1.0); BLOOD UREA NITROGEN 21 MG/DL (7-18); CALCIUM LEVEL 8.4 MG/DL (8.5-10.1); CARBON DIOXIDE LEVEL 32 MEQ/L (21-32); CHLORIDE LEVEL 91 MEQ/L (98-107); CPK CREATINE PHOSPHOKINASE 253 U/L (26-192); CREATININE FOR GFR 0.87 MG/DL (0.55-1.30); GLOMERULAR FILTRATION RATE > 60.0 (>60); GLUCOSE, FASTING 100 MG/DL (70-100); POTASSIUM SERUM 2.5 MEQ/L (3.5-5.1); SODIUM LEVEL 134 MEQ/L (136-145); TOTAL PROTEIN 6.3 GM/DL (6.4-8.2)
[2020-06-16] MEDS: KCL 10MEQ/100ML SWI (KRUN) 10 MEQ in IV 1 EA IV SCH ×3 (03:08→05:26)
[2020-06-16] MEDS: THIAMINE 100 MG TAB PO SCH ×3 (03:13→20:19)
[2020-06-16] MEDS ORDERED: POTASSIUM CHLORIDE 10 MEQ SR TABLET PO ONE ×2 (03:30→11:00)
[2020-06-16] MEDS ORDERED: SCOPOLAMINE 1MG TRANSDERMAL PATCH TOP ONE (04:30)
[2020-06-16] MEDS ORDERED: KCL 10MEQ/100ML SWI (KRUN) 10 MEQ in IV 1 EA IV SCH (06:00)
[2020-06-16 06:05] LABS: VENOUS BASE EXCESS 8.4 (-2.0-2.0); VENOUS HCO3 32.6 MEQ/L (23.0-27.0); VENOUS O2 SATURATION 91.7 % (60.0-80.0); VENOUS PARTIAL PRESSURE CO2 42.9 mmHg (38.0-50.0); VENOUS PARTIAL PRESSURE O2 62.7 mmHg (30.0-50.0); VENOUS PH 7.498 UNITS (7.330-7.430); VENOUS STANDARD HCO3 32.1 MEQ/L; VENOUS TOTAL CO2 33.9 MEQ/L (24.0-28.0)
[2020-06-16] MEDS: KCL 40MEQ in NS 1000ML 1,000 ML IV SCH ×4 (07:36→23:59)
[2020-06-16] MEDS: MULTIVITAMINS/MINERALS THERAP 1 TAB PO SCH (09:13)
[2020-06-16] MEDS: FOLIC ACID 1 MG TAB PO SCH (09:13)
--- NOTE | 2020-06-16 09:31 | ECGEPIP ---
[facility] - ED Test Date: 2020-06-15 Pat Name: NATALIYA BEASLEY Department: Room: [place] [address] Gender: Female [place]: MADDI : 1995 Requested By: ALEJANDRO Paz PA-C Order Number: [id number] Reading MD: Patricia Davies Measurements Intervals [place] Rate: 108 P: 102 MD: 138 QRS: 96 QRSD: 100 T: 81 QT: 404 QTc: 542 Interpretive Statements SINUS TACHYCARDIA RIGHT ATRIAL ENLARGEMENT BORDERLINE RIGHT AXIS DEVIATION PROLONGED QTC, CLINICAL CORRELATION NEEEDED ST DEPRESSION, CONSIDER SUBENDOCARDIAL INJURY, CLINICAL CORRELATION NEEDED Electronically Signed on 06-16-2020 9:31:07 EST by Patricia Davies
[2020-06-16 10:11] LABS: BLOOD UREA NITROGEN 15 MG/DL (7-18); CALCIUM LEVEL 8.4 MG/DL (8.5-10.1); CARBON DIOXIDE LEVEL 31 MEQ/L (21-32); CHLORIDE LEVEL 95 MEQ/L (98-107); CREATININE FOR GFR 0.61 MG/DL (0.55-1.30); GLOMERULAR FILTRATION RATE > 60.0 (>60); GLUCOSE, FASTING 90 MG/DL (70-100); POTASSIUM SERUM 2.9 MEQ/L (3.5-5.1); SODIUM LEVEL 134 MEQ/L (136-145)
[2020-06-16 12:56] LABS: BLOOD UREA NITROGEN 15 MG/DL (7-18); CALCIUM LEVEL 8.4 MG/DL (8.5-10.1); CARBON DIOXIDE LEVEL 32 MEQ/L (21-32); CHLORIDE LEVEL 98 MEQ/L (98-107); GLOMERULAR FILTRATION RATE > 60.0 (>60); GLUCOSE, FASTING 87 MG/DL (70-100); POTASSIUM SERUM 3.1 MEQ/L (3.5-5.1); SODIUM LEVEL 134 MEQ/L (136-145)
[2020-06-16 16:56] LABS: BLOOD UREA NITROGEN 10 MG/DL (7-18); CALCIUM LEVEL 8.1 MG/DL (8.5-10.1); CARBON DIOXIDE LEVEL 28 MEQ/L (21-32); CHLORIDE LEVEL 98 MEQ/L (98-107); CREATININE FOR GFR 0.62 MG/DL (0.55-1.30); GLOMERULAR FILTRATION RATE > 60.0 (>60); GLUCOSE, FASTING 76 MG/DL (70-100); POTASSIUM SERUM 3.4 MEQ/L (3.5-5.1); SODIUM LEVEL 134 MEQ/L (136-145)
--- NOTE | 2020-06-16 19:47 | IPNPDOC ---
Subjective Date Seen The patient was seen on 06/16/20. Subjective Chief Complaint/HPI Ms. Winston is a 24 year old female with history of Cannabinoid Hyperemesis Syndrome and surgically repaired Hellen-Pagan tear who presented initially for N/V, but was found to have hypokalemia and have episodes of Torsades. This morning, she denied nausea or abdominal pain. She felt ready for a diet and did well. Otherwise, this morning her potassium was still low. If improves tomorrow, possible discharge tomorrow. Objective Physical Examination General Exam: Positive: Alert, Cooperative Eye Exam: Positive: EOMI; Negative: Sclera icteric ENT Exam: Negative: Atraumatic Neck Exam: Positive: Supple Chest Exam: Positive: Clear to auscultation; Negative: Rales, Rhonchi, Wheezing Heart Exam: Positive: Rate Normal, Regular Rhythm Abdomen Exam: Positive: Normal bowel sounds, Soft; Negative: Tenderness Extremity Exam: Negative: Edema Neuro Exam: Positive: Normal Speech Psych Exam: Positive: Mental status NL, Mood NL Assessment /Plan Assessment Ms. Winston is a 24 year old female with history of Cannabinoid Hyperemesis Syndrome and surgically repaired Hellen-Pagan tear who presented initially for N/V, but was found to have hypokalemia and have episodes of Torsades. The night prior to the N/V, she was out drinking. Denied recent NSAID use, but she o ccasionally uses NSAIDs. She may have gastritis from alcohol use and NSAID use vs cannabinoid hyperemesis syndrome. Once her potassium normalizes, she can be discharged Plan/VTE VTE Prophylaxis Ordered?: Yes Plan 1. N/V 2/2 cannabinoid hyperemesis syndrome -Resolved -Tolerating diet 2. Torsades -2/2 to a combination of metabolic alkalosis and hypokalemia -On telemetry 3. Hypokalemia -Improving -Continue with supplementation 4. DIANN -Improved with IVF -Resolved 5. DVT ppx -SCD and TEDs VS, I&O, 24H, Fishbone Vital Signs/I&O Vital Signs Date Time Temp Pulse Resp B/P (MAP) Pulse Ox O2 Delivery O2 Flow Rate FiO2 06/16/20 17:00 85 126/73 06/16/20 16:00 98.5 18 100 Nasal Cannula 2.0 I&O- Last 24 Hours up to 6 AM 06/16/20 06:00 Intake Total 2300 ml Output Total 350 ml Balance 1950 ml Laboratory Data 24H LABS Laboratory Tests 2 06/15/20 21:12: Urine Color YELLOW, Urine Appearance HAZY, Urine pH 7.0, Urine Specific [place] 1.017, Urine Protein 1+H, Urine Glucose (UA) NEGATIVE, Urine Ketones 1+H, Urine Blood 2+H, Urine Nitrite NEGATIVE, Urine Bilirubin NEGATIVE, Urine Urobilinogen 2.0H, Urine Leukocyte Esterase NEGATIVE, Urine WBC (Auto) 1, Urine RBC (Auto) 1, Urine Hyaline Casts (Auto) 7, Urine Bacteria (Auto) NEGATIVE, Urine Squamous Epithelial Cells 1, Urine Mucus (Auto) SMALL, Urine Sperm (Auto) , Urine Opiates Screen NEGATIVE, Urine Methadone Screen NEGATIVE, Urine Barbiturates Screen NEGATIVE, Urine Phencyclidine Screen NEGATIVE, Urine Amphetamines Screen NEGATIVE, Urine Benzodiazepines Screen NEGATIVE, Urine Cocaine Metabolite Screen NEGATIVE, Urine Cannabinoids Screen POSITIVEH 06/15/20 21:18: POC Beta HCG, Quantitative < 5.0 06/15/20 22:22: Coronavirus (COVID-19)(PCR) NEGATIVE, Influenza Type A (RT-PCR) NEGATIVE, Influenza Type B (RT-PCR) NEGATIVE, Respiratory Syncytial Virus (PCR) NEGATIVE 06/16/20 01:47: Nucleated Red Blood Cells % (auto) 0.0, Anion Gap 11, Glomerular Filtration Rate > 60.0, Calcium Level 8.4#L, Total Bilirubin 0.7, Aspartate Amino Transf (AST/SGOT) 17, Alanine Aminotransferase (ALT/SGPT) 34, Alkaline Phosphatase 67, Total Creatine Kinase 253H, Total Protein 6.3#L, Albumin 3.4#, Albumin/Globulin Ratio 1.2 06/16/20 04:49: Urine Random Creatinine 105.0, Urine Random Sodium 76, Urine Random Chloride 18, Urine Random Urea Nitrogen 983 06/16/20 05:57: Blood Gas Puncture Site UNKNOWN, Blood Gas Bicarbonate Standard 32.1, Venous Blood pH 7.498H, Venous Blood Partial Pressure CO2 42.9, Venous Blood Partial Pressure O2 62.7H, Venous Blood Total Carbon Dioxide 33.9H, Venous Blood HCO3 32.6H, Venous Blood Oxygen Saturation 91.7H, Venous Blood Base Excess 8.4H 06/16/20 09:17: Anion Gap 8, Glomerular Filtration Rate > 60.0, Calcium Level 8.4L 06/16/20 12:24: Anion Gap 4L, Glomerular Filtration Rate > 60.0, Calcium Level 8.4L 06/16/20 16:23: Anion Gap 8, Glomerular Filtration Rate > 60.0, Calcium Level 8.1L CBC/BMP Laboratory Tests 06/16/20 01:47 06/16/20 09:17 06/16/20 12:24 06/16/20 16:23 Microbiology Microbiology 06/16/20 Blood Culture, Received Pending ARMANI LOVE DO Jun 16, 2020 19:47
[2020-06-16 21:29] LABS: BLOOD UREA NITROGEN 10 MG/DL (7-18); CALCIUM LEVEL 8.2 MG/DL (8.5-10.1); CARBON DIOXIDE LEVEL 28 MEQ/L (21-32); CHLORIDE LEVEL 102 MEQ/L (98-107); CREATININE FOR GFR 0.51 MG/DL (0.55-1.30); GLOMERULAR FILTRATION RATE > 60.0 (>60); GLUCOSE, FASTING 85 MG/DL (70-100); POTASSIUM SERUM 3.7 MEQ/L (3.5-5.1); SODIUM LEVEL 135 MEQ/L (136-145)
[2020-06-17] VITALS: BP_SYST 113; BP_SYST 130; BP_DIAS 74; BP_DIAS 81
[2020-06-17 00:37] LABS: BLOOD UREA NITROGEN 9 MG/DL (7-18); CALCIUM LEVEL 8.2 MG/DL (8.5-10.1); CARBON DIOXIDE LEVEL 26 MEQ/L (21-32); CHLORIDE LEVEL 105 MEQ/L (98-107); CREATININE FOR GFR 0.55 MG/DL (0.55-1.30); GLOMERULAR FILTRATION RATE > 60.0 (>60); GLUCOSE, FASTING 74 MG/DL (70-100); POTASSIUM SERUM 3.7 MEQ/L (3.5-5.1); SODIUM LEVEL 137 MEQ/L (136-145)
[2020-06-17 04:00] VITALS: BP_SYST 115; BP_SYST 122; BP_DIAS 60; BP_DIAS 77
[2020-06-17 05:53] LABS: HEMATOCRIT 35.9 % (36.0-47.0); HEMOGLOBIN 10.9 g/dl (12.0-15.5); MEAN CORPUSCULAR HEMOGLOBIN 25.2 pg (27.0-33.0); MEAN CORPUSCULAR HGB CONC 30.4 g/dl (32.0-36.5); MEAN CORPUSCULAR VOLUME 82.9 fl (80.0-96.0); PLATELET COUNT, AUTOMATED 213 10^3/uL (150-450); RED BLOOD COUNT 4.33 10^6/uL (4.00-5.40); WHITE BLOOD COUNT 11.5 10^3/uL (4.0-10.0)
[2020-06-17 06:12] LABS: BLOOD UREA NITROGEN 8 MG/DL (7-18); CALCIUM LEVEL 8.1 MG/DL (8.5-10.1); CARBON DIOXIDE LEVEL 24 MEQ/L (21-32); CHLORIDE LEVEL 109 MEQ/L (98-107); GLOMERULAR FILTRATION RATE > 60.0 (>60); GLUCOSE, FASTING 82 MG/DL (70-100); SODIUM LEVEL 139 MEQ/L (136-145)
[2020-06-17] MEDS: KCL 40MEQ in NS 1000ML 1,000 ML IV SCH (06:48)
[2020-06-17 08:00] VITALS: BP 128/72
[2020-06-17] MEDS: MULTIVITAMINS/MINERALS THERAP 1 TAB PO SCH (09:29)
[2020-06-17] MEDS: THIAMINE 100 MG TAB PO SCH (09:29)
[2020-06-17] MEDS: FOLIC ACID 1 MG TAB PO SCH (09:29)
--- NOTE | 2020-06-17 12:15 | REP ---
INDICATION: Possible large joint effusion with infection suggested by CT. COMPARISON: Comparison CT imaging June 15, 2020.. TECHNIQUE: Larger field of view T1 and fat-sat T2 imaging of both hips is acquired. Following this, T2 weighted fat sat smaller [id number] imaging is acquired of the right hip in all 3 planes. Patient declined intravenous contrast. FINDINGS: Cortical and medullary bone signal intensity are normal in the proximal femurs bilaterally. There is no evidence to suggest avascular necrosis. There is no evidence of significant hip joint effusion on either side. Bony pelvic bone signal intensity is normal on T1 and T2 weighted scans. No uterine or ovarian abnormality is seen. Urinary bladder is intact. No abdominal wall defect is seen. No intrapelvic mass or adenopathy is observed. There is a dramatic abnormality in the right quadratus femoris muscle consistent with a incomplete muscle tear. There is heterogeneous T2 hyperintense signal intensity and swelling throughout the right quadratus femoris muscle on T2 weighted imaging. This accounts for the edematous changes seen on CT study. No joint effusion is seen. Hamstring tendon insertions are intact. The psoas and iliacus muscle tendon insertions appear intact on the lesser trochanter. The quadratus muscle inserts just caudal to this area along the posteromedial aspect of the proximal femur. No bony changes are seen. There is minimal muscle edema in the lateral at and inferior aspect of the gluteus jason muscle. There is also some mild edema in the gemelis superior and inferior muscles adjacent to the quadratus. The ischio-femoral interval does not appear to be widened. No bursal fluid collection is seen. IMPRESSION: A marked pattern of muscle edema and heterogeneous signal intensity with suggestion of fiber discontinuity in the quadratus femoris muscle on the right side consistent with recent tear injury. There is no evidence of joint effusion or osteomyelitis. Recent quadratus femoris muscle tear. <Electronically signed by Kenneth Morel > 06/17/20 1211
[2020-06-17 12:18] VITALS: BP 118/85
[2020-06-17] MEDS ORDERED: MULTTAB61 PO (12:27)
[2020-06-17] MEDS ORDERED: FOLI1TAB11 PO (12:27)
--- NOTE | 2020-06-17 23:36 | DS.PDOC ---
Discharge Summary General Date of Admission Jun 15, 2020 at 23:58 Date of Discharge Jun 17, 2020 Attending Physician: ARMANI LOVE DO Discharge Summary PROCEDURES PERFORMED DURING STAY: None ADMITTING DIAGNOSES: 1. N/V and abdominal pain 2/2 Cannabinoid Hyperemesis Syndrome 2. Torsades 3. Hypokalemia 4. Hypochloremic metabolic alkalosis 5. DIANN 6. Right hip abnormality DISCHARGE DIAGNOSES: 1. N/V and abdominal pain 2/2 Cannabinoid Hyperemesis Syndrome 2. Torsades 3. Hypokalemia 4. Hypochloremic metabolic alkalosis 5. DIANN 6. Right quadratus femoris muscle tear COMPLICATIONS/CHIEF COMPLAINT: Cannabinoid Hyperemesis Syndrome,Hypokalemia. HISTORY OF PRESENT ILLNESS: Ms. Winston is a 24 year old female with history of Cannabinoid Hyperemesis Syndrome and surgically repaired Hellen-Pagan tear who presented for N/V and abdominal pain. About 7 days ago, she had a few alcoholic drinks in the evening. Then 6 days ago, she started to have nausea with non- bloody emesis and diffuse 8/10 abdominal pain. She felt weak and she had tingling in her finger tips. She thought her potassium may have been low and present to the ED. While in the ED, she had several episodes of Torsade's with presyncope. She was given magnesium sulfate. She was also given potassium for a potassium level of 2.2. Otherwise, when the admitting physician evaluated the patient, her nausea, vomiting, and abdominal pain had resolved. She denied fever, chills, or diarrhea. Patient was admitted for severely low hypokalemia complicated with Torsades. HOSPITAL COURSE: During her hospitalization, she responded to fluids and potassium supplementation. She tolerated a diet. An echocardiogram was ordered for evaluation of Torsades. Sales Promotion Officer notified me later that the echocardiogram was normal. MRI was ordered for the hip abnormality seen on CT. Demonstrated a muscle tear, but she has been asymptomatic. Today, she feels well. Denies nausea or abdominal pain and is able to tolerate a diet. She felt ready for home and was subsequently discharged home. DISCHARGE MEDICATIONS: Please see below. ALLERGIES: Please see below. PHYSICAL EXAMINATION ON DISCHARGE: VITAL SIGNS: Please see below. GENERAL: Comfortable, in no apparent distress HEENT: Head normocephalic, atraumatic NECK: Supple CARDIOVASCULAR EXAMINATION: Regular rate and rhythm RESPIRATORY EXAMINATION: Lungs clear to auscultation bilaterally ABDOMINAL EXAMINATION: Soft, non-tender, normal bowel sounds EXTREMITIES: No pitting edema bilaterally SKIN: Warm and dry NEUROLOGICAL EXAMINATION: CN 3-12 grossly intact PSYCHIATRIC EXAMINATION: Normal mood and affect LABORATORY DATA: Please see below. IMAGING: MRI hip A marked pattern of muscle edema and heterogeneous signal intensity with suggestion of fiber discontinuity in the quadratus femoris muscle on the right side consistent with recent tear injury. There is no evidence of joint effusion or osteomyelitis. Recent quadratus femoris muscle tear. PROGNOSIS: Good ACTIVITY: As tolerated. DIET: As tolerated DISCHARGE PLAN: Home DISPOSITION: Home, Self-Care. DISCHARGE INSTRUCTIONS: 1. Follow up with PCP within a week ITEMS TO FOLLOWUP ON ON OUTPATIENT: 1. Echocardiogram results DISCHARGE CONDITION: Stable. Total time spent on discharge planning, discharge summary, and medication reconciliation: 65 minutes Vital Signs/I&Os Vital Signs Date Time Temp Pulse Resp B/P (MAP) Pulse Ox O2 Delivery O2 Flow Rate FiO2 06/17/20 12:18 97.8 58 17 118/85 (96) 100 Room Air 06/17/20 08:00 I&O- Last 24 Hours up to 6 AM 06/17/20 06:00 Intake Total 1520 ml Output Total 3125 ml Balance -1605 ml Laboratory Data Labs 24H Laboratory Tests 2 06/17/20 00:03: Anion Gap 6L, Glomerular Filtration Rate > 60.0, Calcium Level 8.2L 06/17/20 04:37: Anion Gap 6L, Glomerular Filtration Rate > 60.0, Calcium Level 8.1L, Nucleated Red Blood Cells % (auto) 0.0 CBC/BMP Laboratory Tests 06/17/20 00:03 06/17/20 04:37 Microbiology Microbiology 06/16/20 Blood Culture - Preliminary, Resulted No growth after 24 hours . All specim... Discharge Medications Scheduled Folic Acid (Folic Acid) 1 Mg Tablet, 1 MG PO DAILY Multivitamin (Multivitamins) 1 Each Tablet, 1 TAB PO DAILY Allergies Coded Allergies: lactose (Verified Allergy, Unknown, 05/08/19) ARMANI LOVE DO Jun 17, 2020 23:36
--- NOTE | 2020-06-19 09:48 | ECHO ---
DATE OF PROCEDURE: 06/17/2020 Age: 24 Gender: Female Height: 158 cm Weight: 66 kg REFERRING PHYSICIAN: Elie Hawkins DO. INDICATION: Polymorphic ventricular tachycardia (Torsades de pointes). MEASUREMENTS: 2D Measurements: Left atrium 3.1 cm Aortic root 2.8 cm Intraventricular septum 0.92 cm Posterior wall 1.02 cm Left ventricle diastole 4.5 cm Inferior vena cava 1.9 cm (more than 50% respiratory variation). Doppler Measurements: No aortic stenosis No aortic regurgitation Aortic valve velocity 139 cm/s LVOT velocity 80.9 cm/s No mitral regurgitation Mitral E velocity 108 cm/s Mitral A velocity 38.1 cm/s Mitral deceleration time 203 msec Trace tricuspid regurgitation Pulmonary artery acceleration time 151 msec No pulmonic regurgitation MITRAL ANNULAR TISSUE DOPPLER E prime lateral 16.3 cm/s, E prime septal 14.1 cm/s DESCRIPTION: Rhythm was sinus. Image quality was good. No pericardial effusion. This was a 2D, M-mode, color flow Doppler, and pulsed wave Doppler examination including mitral annular tissue Doppler. CONCLUSIONS: 1. Normal echocardiogram Doppler. 2. Normal left ventricle internal dimensions and wall thickness. Normal regional LV wall motion and wall thickening. Normal LV systolic function. LVEF 65% by visual estimate. Supernormal LV diastolic function. MTDD
== END 2020-06-17 14:18 | disposition home or self-care (01) | DRG 776 ==
LOC: M ED 18:03 → M ED INP 23:58 → M PCU 06-16 02:24
PROVIDERS: ADMIT Internal Medicine; ATTEND Internal Medicine
DX: F12.188 Cannabis abuse with other cannabis-induced disorder (principal); E87.3 Alkalosis; N17.9 Acute kidney failure, unspecified; R11.2 Nausea with vomiting, unspecified; R10.9 Unspecified abdominal pain; E87.6 Hypokalemia; K44.9 Diaphragmatic hernia without obstruction or gangrene; E73.9 Lactose intolerance, unspecified

== ENCOUNTER 2020-07-03 16:09 | Observation (INO) | payer OTHER ==
[~2020-07-03] VITALS: Ht 160 cm; Wt 61.4 kg
[~2020-07-03 16:09] MED LIST changes: +FOLI1TAB11 PO; +MULTTAB61 PO
--- OUTSIDE RECORDS SUMMARY | 2020-07-03 16:18 | CCD ---
Author Author [facility] Organization [facility] Address Unknown Phone Unavailable Care Team Providers Care Warp Drawer Name Role Phone TURRIN, LEENA Unavailable Unavailable [...] PA-C Unavailable Unavailable Srinath Falanga, A Sarah FAN MAIL EDITOR Unavailable Unavailable Srinath Falanga, A Sarah FAN MAIL EDITOR Unavailable Unavailable [place] Falanga, A Sarah FAN MAIL EDITOR Unavailable Unavailable Srinath Falanga, A Sarah FAN MAIL EDITOR Unavailable Unavailable [place] Falanga, A Sarah FAN MAIL EDITOR Unavailable Unavailable Srinath Falanga, A Sarah FAN MAIL EDITOR Unavailable Unavailable Srinath Falanga, A Sarah FAN MAIL EDITOR Unavailable Unavailable Srinath Falanga, A Sarah FAN MAIL EDITOR Unavailable Unavailable Srinath Falanga, A Sarah FAN MAIL EDITOR Unavailable Unavailable Srinath Falanga, A Sarah FAN MAIL EDITOR Unavailable Unavailable Srinath Falanga, A Sarah FAN MAIL EDITOR Unavailable Unavailable [place] Falanga, A Sarah FAN MAIL EDITOR Unavailable Unavailable [place] Falanga, A Sarah FAN MAIL EDITOR Unavailable Unavailable [place] Falanga, A Sarah FAN MAIL EDITOR Unavailable Unavailable [place] Falanga, A Sarah FAN MAIL EDITOR Unavailable Unavailable Srinath Falanga, A Sarah FAN MAIL EDITOR Unavailable Unavailable [place] Falanga, A Sarah FAN MAIL EDITOR Unavailable Unavailable Srinath Falanga, A Sarah FAN MAIL EDITOR Unavailable Unavailable Srinath Falanga, A Sarah FAN MAIL EDITOR Unavailable Unavailable Srinath Falanga, A Sarah FAN MAIL EDITOR Unavailable Unavailable [place] Falanga, A Sarah FAN MAIL EDITOR Unavailable Unavailable Srinath Falanga, A Sarah FAN MAIL EDITOR Unavailable Unavailable [place] Falanga, A Sarah FAN MAIL EDITOR Unavailable Unavailable Srinath Falanga, A Sarah FAN MAIL EDITOR Unavailable Unavailable Srinath Falanga, A Sarah FAN MAIL EDITOR Unavailable Unavailable [place] Falanga, A Sarah FAN MAIL EDITOR Unavailable Unavailable Srinath Falanga, A Sarah FAN MAIL EDITOR Unavailable Unavailable [place] Falanga, A Sarah FAN MAIL EDITOR Unavailable Unavailable [place] Falanga, A Sarah FAN MAIL EDITOR Unavailable Unavailable Srinath Falanga, A Sarah FAN MAIL EDITOR Unavailable Unavailable ARIEL MILLER MD Unavailable Unavailable [...] Unavailable Unavailable Donna Collazo MD Unavailable Unavailable oDnna Collazo MD Unavailable Unavailable Donna Collazo MD [...] Unavailable Unavailable Donna Collazo MD Unavailable Unavailable Donan Collazo MD Unavailable Unavailable Donna Collazo MD [...] YAQUELINGeorge HUTCHISON MD Unavailable Unavailable Flori Dumontandra FAN MAIL EDITOR FAN MAIL EDITOR Unavailable Unavailable Juan A MCKEON MD Unavailable Unavailable Juan A MCKEON MD Unavailable Unavailable Juan A MCKEON MD Unavailable Unavailable Juan A MCKEON MD Unavailable Unavailable Juan A MCKEON MD Unavailable Unavailable Juan A MCKEON MD Unavailable Unavailable Juan A MCKEON MD Unavailable Unavailable Juan A MCKEON MD Unavailable Unavailable Juna A MCKEON MD Unavailable Unavailable Tim, A Ranjana FAN MAIL EDITOR Unavailable Unavailable Tim, A Ranjana FAN MAIL EDITOR Unavailable Unavailable Tim, A Ranjana FAN MAIL EDITOR Unavailable Unavailable Tim, A Ranjana FAN MAIL EDITOR Unavailable Unavailable Tim, A Ranjana FAN MAIL EDITOR Unavailable Unavailable Tim, A Ranjana FAN MAIL EDITOR Unavailable Unavailable Tim, A Ranjana FAN MAIL EDITOR Unavailable Unavailable Tim, A Ranjana FAN MAIL EDITOR Unavailable Unavailable Tim, A Ranjana FAN MAIL EDITOR Unavailable Unavailable Tim, A Ranjana FAN MAIL EDITOR Unavailable Unavailable Tim, A Ranjana FAN MAIL EDITOR Unavailable Unavailable Tim, A Ranjana FAN MAIL EDITOR Unavailable Unavailable Tim, A Ranjana FAN MAIL EDITOR Unavailable Unavailable Tim, A Ranjana FAN MAIL EDITOR Unavailable Unavailable Tim, A Ranjana FAN MAIL EDITOR Unavailable Unavailable Tim, A Ranjana FAN MAIL EDITOR Unavailable Unavailable Tim, A Ranjana FAN MAIL EDITOR Unavailable Unavailable Tim, A Ranjana FAN MAIL EDITOR Unavailable Unavailable Tim, A Ranjana FAN MAIL EDITOR Unavailable Unavailable Tim, A Ranjana FAN MAIL EDITOR Unavailable Unavailable Tim, A Ranjana FAN MAIL EDITOR Unavailable Unavailable Tim, A Ranjana FAN MAIL EDITOR Unavailable Unavailable Tim, A Ranjana FAN MAIL EDITOR Unavailable Unavailable Tim, A Ranjana FAN MAIL EDITOR Unavailable Unavailable Tim, A Ranjana FAN MAIL EDITOR Unavailable Unavailable Tim, A Ranjana FAN MAIL EDITOR Unavailable Unavailable Tim, A Ranjana FAN MAIL EDITOR Unavailable Unavailable Tim, A Ranjana FAN MAIL EDITOR Unavailable Unavailable Re-disclosure Warning The records that [...] is protected by Article 27-F of the [facility] Public Health law. If you continue you may have access to information: Regarding HIV / AIDS; Provided by facilities licensed or operated by the [facility] Office of Mental Health; or Provided by the [facility] Office for People With Developmental Disabilities. If such information is present, then the following [facility] mandated warning applies: This information has [...] law may result in a fine or mcc sentence or both. A general authorization for the release of medical or other information is NOT sufficient authorization for further disc losure. Allergies and Adverse Reactions Type Description Substance Reaction Status Data Source(s ) Food allergy LACTOSE LACTOSE [facility] CLASS SULFA (sulfonamide) SULFA (sulfonamide) HIVES [facility] No Known Drug Allergies No Known Drug Allergies [facility] Encounters Encounter Providers Location Date Indications Data Source(s ) Emergency Attender: Yang Melendrez PA-CConsultant: Miles Walls MD 04/03/2020 04:26:00 PM EST - 04/03/2020 09:15:00 PM [facility] Patient discharged. Outpatient Attender: JADEN Dumont [facility] 02/27/2020 12:19:00 P M EDT [facility] Outpatient Attender: Sarah moran FNPAttender: DAYLIN JAMISON MDConsultant: Miles Collazo MD 02/16/2020 04:43:00 PM ED T - 02/17/2020 12:40:00 PM T [facility] Patient discharged. Outpatient Attender: Ranjana Dumont [facility] 01/26/2020 02:5 0:00 PM EDT [facility] Outpatient Attender: JADEN uDmont [facility] 01/26/2020 02:46:01 P M EDT [facility]: [facility]/24/2020 05:19:01 P M EDT [facility] Outpatient Attender: Ranjana Dumont [facility] 01/22/2020 03:1 0:01 PM EDT [facility]: [facility] 01/22/2020 03:10:00 P M EDT [facility] Outpatient Attender: Ranjana Dumont [facility] 01/22/2020 03:0 9:02 PM EDT [facility]: [facility] 01/22/2020 03:09:01 P M EDT [facility] Outpatient Attender: JADEN PRITCHETT 01/19/2020 09:13:00 A M EDT [facility] Outpatient Attender: JADEN PRITCHETT 01/19/2020 09:07:00 A M EDT [facility] Outpatient Attender: Sarah moran FNPAttender: LEENA MARTÍNEZConsultant: Miles Collazo MD 12/26/2019 10:59:00 A M EDT - 12/27/2019 04:25:00 PM EDT [facility] Patient discharged. Outpatient Attender: SIMIN MULLER MDAtt akosua: FER MCKEON MDConsultant: Miles Collazo MD 12/09/2019 12:55:00 PM EDT - 12/11/2019 03:40:00 PM EDT [facility] Patient discharged. Emergency Attender: LEENA Poncesultant: Miles Collazo MD 12/07/2019 06:58:00 PM EDT - 12/07/2019 09:23:00 PM EDT [facility] Patient discharged. Outpatient Attender: Sarah moran FNPAttender: ARIEL MILLER MDConsultant: Miles Collazo MD 11/24/2019 05:12:00 PM ED T - 11/26/2019 01:05:00 PM EDT [facility] Patient discharged. Outpatient 11/04/2019 05:40:00 AM EDT [facility] Outpatient Attender: JADEN STANLEY FP 10/15/2019 12:14:17 A M EDT [facility] Outpatient 10/12/2019 05:16:00 AM EDT [facility] Outpatient 09/14/2019 05:58:00 AM EDT [facility] Outpatient Attender: JADEN STANLEY FP 09/09/2019 11:10:00 A M EDT [facility] Outpatient Attender: JADEN STANLEY FP 09/07/2019 09:02:00 A M EDT [facility] Outpatient 05/27/2019 06:22:00 AM EST [facility] Outpatient Attender: JADEN [...] relationship to simons Policy Simons Plan Information [facility] [id number] SP [id number] [facility] O [id number] S [id number] [facility] [id number] SP [id number] [facility] [id number] SP [id number] [facility] O [id number] S [id number] [facility] XIX [id number] 18 [id number] Medicaid S [id number] S [id number] Managed Care - [facility] Community Plan P [id number] S [id number] Medicaid S [id number] S [id number] [facility] XIX [id number] 18 [id number] [employer] AMERIC[employer]ICE XIX HMO [id number] Managed Care - [facility] Community Plan P [id number] S [id number] Self Pay P UNAVAILABLE S UNAVAILA BLE [id number] SP [id number] [facility] O [id number] S [id number] Managed Care - Community Plan [facility] P [id number] S [id number] Medicaid S [id number] S [id number] [facility] [id number] SP [id number] [facility] [id number] 18 [id number] MEDICAID - CLINIC [id number] Problems, Conditions, and Diagnoses Code Display Name Description Problem Type Effective Dates Data Source(s) N3001 Acute cystitis with hematuria Acute cystitis with armani turia Diagnosis 04/03/2020 04:26:00 PM [facility] R1084 Generalized abdominal pain Generalized abdominal pain Diagnosis 04/03/2020 04:26:00 PM [facility] F1010 Alcohol abuse, uncomplicated Alcohol abuse, uncomplica parminder Diagnosis 02/16/2020 04:43:00 PM EDT [facility] [id number] Nicotine dependence, cigarettes, uncompl icated Nicotine dependence, cigarettes, uncomplicated Diagnosis 02/16/2020 04:43:00 PM EDT [facility] F1220 Cannabis dependence, uncomplicated Cannabis depe ndence, uncomplicated Diagnosis 02/16/2020 04:43:00 PM EDT [facility] E860 Dehydration Dehydration Diagnosis 02/16/2020 04:43:00 PM EDT [facility] R1110 Vomiting, unspecified Vomiting, unspecified Diagnosis 02/16/2020 04:43:00 PM EDT [facility] E876 Hypokalemia Hypokalemia Diagnosis 02/16/2020 04:43:00 PM EDT [facility] E8342 Hypomagnesemia Hypomagnesemia Diagnosis 02/16/2020 04:43: 00 PM EDT [facility] E871 Hypo-osmolality and hyponatremia Hypo-osmolality and hyponatremia Diagnosis 12/26/2019 10:59:00 AM EDT [facility] 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 R112 Nausea with vomiting, unspecified Nausea with vo miting, unspecified Diagnosis 12/07/2019 06:58:00 PM EDT [facility] R1115 Cyclical vomiting syndrome unrelated to migraine Cyclical vomiting syndrome unrelated to migraine Diagnosis 11/24/2019 05:12:00 PM EDT [facility] Results ID Date Data Source [id number] 06/15/2020 10:22:00 PM [facility] Name Value Range Interpretation Code Description Data Michelle rce(s) Supporting Document(s) SARS coronavirus 2 RNA [Presence] in Res piratory specimen by ANTONIO with probe detection NEGATIVE [facility] This lab was ordered by [facility] a nd reported by [facility]. ID Date Data Source [id number] 04/04/2020 01:12:00 PM [facility] [address] [place] [address] PHONE: [phone] FAX: [phone] Name .................. : RITTER NATALIYA Martinez Acct Number.................. : [id number] ROOM. ................. : TR-03 MR Number ................... : [id number] Stay type ............. : E/R Discharge Date......... ... : Admit Date ......... : 04/03/20 Admit Phys .................... : PARVIN CHANTEL Date of ....... : 1995 Family Phys ................... : [employer] Phone .................. : [phone] Age ................................ : 24 Film# .................. .:[id number] Sex ................................. : F Unsigned transcriptions are preliminary reports and do not represent a medical or legal document CT ABD & PELVIS W/ IV ONLY [id number] COMPLETE:04/03/20 17:49 [id number] Reason(s): Abdominal Pain CT OF THE ABDOMEN [...] imperative reconstructive techniques. Page 1 of [address] [place] [address] PHONE: [phone] FAX: [phone] Name .................. : RITTER AN Juan Acct Number.................. : [id number] ROOM. ................. : TR-03 MR Number ................... : [id number] Stay type ............. : E/R Discharge Date......... ... : Admit Date ......... : 04/03/20 Admit Phys ... ................. : PARVIN [facility] Date of ....... : 1995 Family Phys ................... : COLLAZO Hundo Phone .................. : [phone] Age ................................ : 24 Film# .................. .:[id number] Sex ................................. : F Unsigned transcriptions are preliminary reports and do not represent a medical or legal document CT ABD & PELVIS W/ IV ONLY [id number] COMPLETE:04/03/20 17:49 92427 Reason(s): Abdominal Pain CT dose: 533 mGycm [...] rce(s) Supporting Document(s) ID Date Data Source [id number] 04/03/2020 04:26:00 PM EST [facility] 1 OrderSheet [facility] Emergency Department [address] [place] [address] Phone #: ext- [phone] 04/03/2020 16:19 Patient: NATALIYA BEASLEY Sex: F : 1995 Age: 24yWEIGHT:58.9 kg (S) HEIGHT:62 inches (S) BMI:23.8ALLERGIES: Lactose Intolerance (GI), No Known Drug AllergyCHIEF COMPLAINT: abdominal pain, vomiting, nausea, crampsDIAGNOSIS: Abdominal pain, CystitisLAB ORDERSOrder Description Priority Entered Acknowledged InitialedCBC w Diff STAT 16:59 04/03/2020 17:05 Imtiaz Sheets R.N. P.A.-C;CMP STAT 16:59 04/03/2020 17:05 Imtiaz Sheets R.N. P.A.-C;Lipase STAT 16:59 04/03/2020 17:05 Imtiaz Sheets R.N. P.A.-C;Urinalysis (Clean STAT 16:59 04/03/2020 17:08 Sudeep,Catch) Imtiaz Wiseman R.N. P.A.-C;Lactic Acid STAT 16:59 04/03/2020 17:05 Sudeep, Imtiaz GallegosN. P.A.-C;Beta-HCG, Qual STAT 16:59 04/03/2020 17:05 Sudeep,Serum Imtiaz Wiseman R.N. P.A.-C;Magnesium STAT 16:59 04/03/2020 17:05 Sudeep, Imtiaz Lundberg.N. P.A.-C;Culture, Urine STAT 17:48 04/03/2020 17:59 Sudeep,(Urine, Clean Imtiaz Lundberg.MeghaCatch) P.A.-C;DIAGNOSTIC STUDY ORDERSOrder Description Priority Entered Acknowledged InitialedCT Abd PEL W/ IV STAT 17:49 04/03/2020 19:48 Sudeep,Contrast Only Imtiaz Wiseman R.N.(Oxygen?(No)) P.A.- C;(IV?(Yes)) 2 OrderSheet [facility] Emergency Department [address] [place] [address] Phone #: ext- [phone] 04/03/2020 16:19 Patient: NATALIYA BEASLEY Sex: F : 1995 Age: 24y Reason for Study: Abdominal Pain, Nausea, VomitingMEDICATION/IV/DRIP/FLUID ORDERSOrder Description Priority Entered Acknowledged InitialedNS IV : Bolus 1000 16:59 04/03/2020 17:15 Sudeep,Lynsey, then 75 mL/hr Imtiaz Wiseman R.N. P.A.-C;Zofran IVP 8 mg 16:59 04/03/2020 17:15 Imtiaz SheetsN. P.A.-C;Protonix IVPB 40 16:59 04/03/2020 17:15 Sudeep,mg with Dextrose Imtiaz Wiseman R.N.100 ml spike bag P.A.-C;(D5W)Benadryl IVP 25 mg 16:59 04/03/2020 17:16 Imtiaz Sheets R.N. P.A.-C;Pepcid IVPB 20 16:59 04/03/2020 17:16 Sudeep,mg/50mL (NOW Imtiaz roland R.N.Infuse over 30 P.A.-C;minutes.)Rocephin 20:23 04/03/2020 20:37 [...] rce(s) Supporting Document(s) ID Date Data Source [id number] 04/03/2020 04:26:00 PM EST [facility] 1 Medication Reconciliation Report [facility] Emergency Department [address] [place] [address] Phone #: ext- [phone] 04/03/2020 16:19 Patient: [...] Dispense 14 capsule. Refills: 0.Substitution permitted.Pharmacy - [facility] [address] [place] [address]. .Zofran 4 mg tablet Take 1 tablet three times a day for 4 days -- Dispense 12 tablet. Refills: 0.Substitution permitted. 2 Medication Reconciliation Report [facility] Emergency Department [address] [place] [address] Phone #: ext- [phone] 04/03/2020 16:19 Patient: NATALIYA BEASLEY Sex: F : 1995 Age: 24yPharmacy - [facility] - [address] [facility] ; [place] [address]. . -- Imtiaz España P.A.-C Name Value Range Interpretation Code Description Data Michelle rce(s) Supporting Document(s) ID Date Data Source [id number] 04/03/2020 04:26:00 PM EST [facility] 1 Medication Administration Record [facility] Emergency Department [address] [place] [address] Phone #: ext- [phone] 04/03/2020 16:19 Patient: NATALIYA BEASLEY Sex: F : 1995 Age: 24yWeight: 58.9 kgHeight/Length: 62 inBMI: 23.8ALLERGIES: Lactose Intolerance (GI), No Known Drug Allergy Date/Time Medication Administered Medication OrderedStart NS [IV] NS IV : Bolus 1000 mL, then 7517:15 04/03/2020 Dose: IV Fluids mL/Ivone Billy, R.N. Bolus: 1000 mL over 1 hour(s)---- Dispensed: 1000 mL bagStop Site: #1 left AC19:38 04/03/2020Ivone Sheets, R.NSvetaStart NS [IV] NS IV : Bolus 1000 mL, then 7519:56 04/03/2020 Dose: IV Fluids mL/Zakiya Agrawal, R.NSveta Rate: 75 mL/hr---- Dispensed: 1000 mL bagStop Site: #1 left AC20:54 04/03/2020Zakiya Quiles, R.NSvetaGiven ZOFRAN [IVP] (ONDANSETRON HCL) Zofran IVP 8 mg17:15 04/03/2020 Dose: 8 mg IVPIvone Sheets R.N. Site: #1 left ACStart PROTONIX [IVPB] (PANTOPRAZOLE Protonix IVPB 40 mg with17:15 04/03/2020 SODIUM) Dextrose 100 ml spike bag (D5W)Ivone Sheets R.N. Dose: 40 mg IVPB---- Rate: 200 [...] ACStart ROCEPHIN (1GM/50ML) [IVPB] Rocephin (1gm/50mL) IVPB 878755:36 04/03/2020 (CEFTRIAXONE SODIUM) mg with Dextrose 50 ml spike Zakiya Dougherty, R.N. Dose: 1 gm IVPB (D5W)---- Rate: 100 mL/hr over 30 minute(s)Stop Bolus: 1 gm wide open20:54 04/03/2020 Dispensed: 50 mL Zakiya Dougherty, R.N. Site: #1 left AC Name Value Range Interpretation Code Description Data Michelle rce(s) Supporting Document(s) ID Date Data Source [id number] 04/03/2020 04:26:00 PM EST [facility] 1 General Instructions [facility] Emergency Department [address] [place] [address] Phone #: ext- [phone] 04/03/2020 16:19 Patient: [...] and/or weight.I have provided infomration on 2 janerate surgeons for you to choose whom you would like. [facility] and is aware of your conditions.).Warnings: Further evaluation is necessary.GENERAL WARNINGS: Return or contact your physician immediately if your condition worsens orchanges unexpectedly, if not improving as expected, or if other problems arise.Your Current Medications: .No home medication.Prescription Medications:Macrobid 100 mg capsule Take 1 capsule twice a day for 7 days -- Dispense 14 capsule. Refills: 0.Substitution permitted.[facility] [place] [address]. .Zofran 4 mg tablet Take 1 tablet three times a day for 4 days -- Dispense 12 tablet. Refills: 0.Substitution permitted.[facility] [address] [place] [address]. .Follow-up:Return to the emergency department as needed. Follow up with your healthcare provider in about twodays if not better. Call for an appointment.Understanding of the discharge instructions verbalized by patient. 2 General Instructions [facility] Emergency Department [address] [place] [address] Phone #: ext- [phone] 04/03/2020 16:19 - Patient: NATALIYA BEASLEY Sex: F : 1995 Age: 24yFollow-up with: Shabbir Addison MD, Gastroenterology, [id number], [facility],[address] [place] [address], [address], [address] Follow up. Call for the next available appointment. Reason for referral: evaluation and treatment.Follow-up with: [facility], , , [address] [place] [address], [address] Follow up. Call for the next available [...] be constant. Other common 3 General Instructions [facility] Emergency Department [address] [place] [address] Phone #: ext- [phone] 04/03/2020 16:19 Patient: [...] to improve in the 4 General Instructions [facility] Emergency Department [address] [place] [address] Phone #: ext- [phone] 04/03/2020 16:19 Patient: NATALIYA BEASLEY Sex: Darryn : 1995 Age: 24ynext 24 hours.Call 911Call 911 if any of these occur: Trouble breathing [...] or water and you are getting dehydrated [phone] The [employer]. [address] [place] [address]. All rights reserved. This information is not intended as asubstitute for professional medical care. Always follow your healthcare professional's instructions.Bladder Infection, Female (Adult) 5 General Instructions [facility] Emergency Department [address] [place] [address] Phone #: ext- [phone] 04/03/2020 16:19 Patient: [...] above the pubic bone. 6 General Instructions [facility] Emergency Department [address] [place] [address] Phone #: ext- [phone] 04/03/2020 16:19 Patient: [...] more serious kidney infection.Medicines 7 General Instructions [facility] Emergency Department [address] [place] [address] Phone #: ext- [phone] 04/03/2020 16:19 Patient: [...] will affect your treatment. 8 General Instructions [facility] Emergency Department [address] [place] [address] Phone #: ext- [phone] 04/03/2020 16:19 Patient: [...] swelling in the outer vaginal area (labia) [phone] [employer]. [address] [place] [address]. All rights reserved. This information is not intended as asubstitute for professional medical care. Always follow your healthcare professional's instructions.Blood in the Urine 9 General Instructions [facility] Emergency Department [address] [place] [address] Phone #: ext- [phone] 04/03/2020 16:19 Patient: [...] had blood in your 10 General Instructions [facility] Emergency Department [address] [place] [address] Phone #: [phone] eee- [phone] 04/03/2020 16:19 Patient: NATALIYA BEASLEY Sex: F [...] the nose or gums or easy bruising [phone] [employer]. [address] [place] [address]. All rights reserved. This information is not [...] rce(s) Supporting Document(s) ID Date Data Source [id number] 04/03/2020 04:26:00 PM EST [facility] 1 Clinical Report - Nurses [facility] Emergency Department [address] [place] [address] Phone #: [phone]- [phone] 04/03/2020 16:19 Patient: NATALIYA BEASLEY Sex: F [...] no deficiencies. 2 Clinical Report - Nurses [facility] Emergency Department [address] [place] [address] Phone #: ext- [phone] 04/03/2020 16:19 ----- [id number] Sex: F : 1995 Age: 24y FUNCTIONAL [...] occasionally. (states just drinks on the weekends.). --16:04/03/20 Chencho Mariee. Interventions Identification band on patient. [...] mLsaline (Given to primary RN.). --16:50 04/03/20 Chencho Mariee 17:15 04/03/2020 Started bag #1 1000 mL [...] Sheets R.N. 3 Clinical Report - Nurses [facility] Emergency Department [address] [place] [address] Phone #: ext- [phone] 04/03/2020 16:19 Patient: [...] this medication. Verbalizesunderstanding. --17:16 04/03/20 Ivone Sheets RSvetaN.17:16 04/03/2020 Benadryl (diphenhydrAMINE HCl) IVP 25 mg [...] patient. Verbalizes 4 Clinical Report - Nurses [facility] Emergency Department [address] [place] [address] Phone #: ext- [phone] 04/03/2020 16:19 Patient: NATALIYA BEASLEY Sex: F : 1995 Age: 24y understanding. --19:56 04/03/20 Zakiya Quiles R.N. 19:56 04/03/20. BP: 137/72. MAP: 93. HR: 70. RR: 18. O2 saturation: 99% on room air. --19:57 04/03/20 Zakiya Quiles R.N. The patient is calm and resting quietly. Patient returned from CT by wheelchair with mask and histopath tech. --19:57 04/03/20 Zakiya Quiles R.N. 20:36 04/03/2020 [...] pharmacy. Reviewed referral to a surgeon and academic guidance specialist. Work note given. Patient verbalized understanding. Written instructions provided in Wallisian. The patient was discharged by the physician community program assistant. She was discharged home and accompanied [...] rce(s) Supporting Document(s) ID Date Data Source [id number] 04/03/2020 04:26:00 PM EST [facility] 1 Clinical Report - Physicians/Mid Levels [facility] Emergency Department [address] [place] [address] Phone #: ext- [phone] 04/03/2020 16:19 Patient: [...] ears. 2 Clinical Report - Physicians/Martha Messina [facility] Emergency Department [address] [place] [address] Phone #: ext- [phone] 04/03/2020 16:19 Patient: NATALIYA BEASLEY [facility]#: [id number] Sex: F : 1995 Age: 24y Tympanostomy [...] 3 Clinical Report - Physicia ns/Mid Levels [facility] Emergency Department [address] [place] [address] Phone #: ext- [phone] 04/03/2020 16:19 Patient: [...] Male GFR Interprentation 20-49 yrs >60 mL/min Boonjj72-55 yrs >56 mL/min Normal 60-69 yrs >49 mL/min Normal 70-79yrs 4 Clinical Report - Physicians/Mid Levels [facility] Emergency Department [address] [place] [address] Phone #: ext- [phone] 04/03/2020 16:19 Patient: [...] LIPASE 15 U/L (13 - 60) Urinalysis: (ANGLEY: 04/03/2020 17:20) ( MsgRcvd 04/03/2020 17:43) Final [...] NONE Lactic Acid: (ANGELY: 04/03/2020 16:45) ( WvgRcvd 04/03/2020 17:23) Final results Test Result Flag Units (Reference) LACTIC ACID 1.6 MMOL/L (0.2 - 2.2) Beta-HCG, Qual Serum: (ANGELY: 04/03/2020 16:45) ( WvgRcvd 04/03/2020 17:27) Final results Test Result Flag Units (Reference) HCG SERUM QUAL NEGATIVE (NORMAL: NEGAT HCG SERUM QL REENTER NEGATIVE (NORMAL: NEGAT { KIT LOT # [id number] ){ KIT EXP DATE 02.20.21 ){ PROCEDURAL CONTROL VALID ) Magnesium: (ANGELY: 04/03/2020 16:45) ( [facility] 04/03/2020 17:33) Final results Test Result Flag Units (Reference) MAGNESIUM 1.8 MG/DL (1.7 - 2.2). 5 Clinical Report - Physicians/Mid Levels [facility] Emergency Department [address] [place] [address] Phone #: ext- [phone] 04/03/2020 16:19 Patient: NATALIYA BEASLEY Sex: F [...] weight. 6 Clinical Report - Physicians/Mid Levels [facility] Emergency Department [address] [place] [address] Phone #: ext- [phone] 04/03/2020 16:19 Patient: [...] weight. I have provided infomration on 2 formerly named [facility] surgeons for you to choose whom you would like. I did consult the surgeon at [facility] though and is aware of your [...] Dispense 14 capsule. Refills: 0. Substitution permitted. [address] [place] [address]. . Zofran 4 mg tablet Take 1 tablet three times a day for 4 days -- Dispense 12 tablet. Refills: 0. Substitution permitted. [address] [place] [address]. . Follow-up: Return to the emergency department as needed. Follow up with your healthcare provider in about two days if not better. Call for an appointment. Understanding of the discharge instructions verbalized by patient. 7 Clinical Report - Physicians/Mid Levels [facility] Emergency Department [address] [place] [address] Phone #: ext- [phone] 04/03/2020 16:19 Patient: NATALIYA BEASLEY Sex: F : 1995 Age: 24y Follow-up with: Shabbir Addison MD, Gastroenterology, [id number], [facility], [address] [place] [address], [address], [address] Follow up. Call for the next available appointment. Reason for referral: evaluation and treatment. Follow-up with: [facility], , , [address] [place] [address], [facility] Follow up. Call for the next available appointment. Reason for referral: evaluation and treatment.(Electronically signed by Imtiaz España P.A.-C 04/03/2020 21:42) Name Value Range Interpretation Code Description Data Michelle e(s) Supporting Document(s) ID Date Data Source [id number] 04/03/2020 05:43:00 PM EST [facility] Name Value Range Interpretation Code Description Data [facility](s) Supporting Document(s) URINALYSIS [facility] URINALYSIS SOURCE R [facility] COLOR yellow NORMAL: Yellow [facility] CLARITY hazy NORMAL: Clear [facility] sp[facility] Specific gravity of Urine by Test strip 1.020 1.001 - 1.030 [facility] pH 6 5 - [facility] Glucose [Mass/volume] in Urine by Test strip NORM NORMAL: Negat judy [facility] Bilirubin.total [Presence] in Urine by Test strip NEG NORMAL: Negative [facility] Ketones [Presence] in Urine by Test strip 50 NORMAL: Negative [facility] Protein [Mass/volume] in Urine by Test strip 30 NORMAL: Negat judy [facility] Nitrite [Presence] in Urine by Test strip NEG NORMAL: Negative [facility] BLOOD 10 NORMAL: Negative [facility] Leukocyte esterase [Presence] in Urine by Test strip NEG DAYLIN L: Negative [facility] Urobilinogen [Mass/volume] in Urine by Test strip 1 less tito n 1.0 mg/dL [facility] MICROSCOPIC See Below [facility] ital WBC 3 - 5 NORMAL: NONE SEEN [facility] Erythrocytes [#/volume] in Urine by Test strip 1 - 3 NORMAL: NON E SEEN [facility] EPITHELIAL MODERATE NORMAL: NONE SEEN A [facility] Bacteria [Presence] in Urine sediment by Light microscopy Tr laura NORMAL: NONE SEEN [facility] Mucus [Presence] in Urine sediment by Light microscopy 2+ NOR MAL: NONE SEEN A [facility] Amorphous sediment [Presence] in Urine sediment by Light chelsey roscopy 2+ NORMAL: NONE SEEN [facility] ID Date Data Source [id number] 04/07/2020 09:15:00 PM EST [facility] Name Value Range Interpretation Code Description Data Michelle rce(s) Supporting Document(s) CULTURE URINE [facility] _CULTURE URINE_$$[id number]$$[id number]$$274408$$772387$$017010$$666705$$784254$$511299$$036280$$ 026014$$821907$$206296$$682748$$928994$$984526$$105448$$106274$$268035$$054823$$ 661770$$446950$$718122$$973795$$393016$$372767$$054749$$975084 -- Continued on next page --Patient: RITTER NATALIYA Martinez Order: Page 2Culture: CULTURE URINE Status: Final ==== -- Continued on next page --Patient: RITTER NATALIYA Martinez Order: 2Culture: CULTURE URINE Status: Prelim =====$$[id number]$$[id number] DATE/TIME: 04/07/2020 13:06Culture: CULTURE URINE Status: FinalUrine Culture,Comprehensive: P1No growth in 36 - 48 hours. Previous result entered on 04/06/2020 03:16 ET No growth after 18-24 hours.P1 Test performed by: [facility] #: [id number] [address] [place] [address] Avenue [id number] [facility] [address]Medical Director : Abhilash Hilario MD NPI #:Lab Di louis : 04/06/20.0654.XMT.SENT REF 04/07/20.2115.XMT.SENT REF ID Date Data Source [id number] 04/03/2020 05:36:00 PM EST [facility] Name Value Range Interpretation Code Description Data Michelle rce(s) Supporting Document(s) COMPREHENSIVE METABOLIC PANEL [facility] COMPREHENSIVE METABOLIC PANEL Sodium [Moles/volume] in Serum or Plasma 139 mEq/L 134 - 153 [facility] Potassium [Moles/volume] in Serum or Plasma 3.5 mEq/L 3.6 - 5.0 L [facility] Chloride [Moles/volume] in Serum or Plasma 100 mEq/L 98 - 107 [facility] Carbon dioxide, total [Moles/volume] in Serum or Plasma 29 MEQ/L 22 - 30 [facility] Glucose [Mass/volume] in Serum or Plasma 139 MG/DL 65 - 110 H [facility] BUN 11 MG/DL 7 - 21 [facility] al Creatinine [Mass/volume] in Serum or Plasma 0.5 MG/DL 0.7 - 1.5 L [facility] BUN/CREAT 22 8 - 27 [facility] Protein [Mass/volume] in Serum or Plasma 7.7 G/DL 6.3 - 8.2 [facility] Albumin [Mass/volume] in Serum or Plasma 4.9 G/DL 3.9 - 5.0 [facility] Globulin [Mass/volume] in Serum by calculation 2.8 GM/DL 2.4 - 3.2 [facility] A/G RATIO 1.8 0.8 - 2.0 [facility] Calcium [Mass/volume] in Serum or Plasma 10.1 MG/DL 8.4 - 10.2 [facility] Bilirubin.total [Mass/volume] in Serum or Plasma <0.7 MG/DL 0.2 - 1.3 [facility] Alkaline phosphatase [Enzymatic activity/volume] in Serum or Plasma 74 U/L 38 - 126 [facility] Aspartate aminotransferase [Enzymatic activity/volume] in Serum or Plasma 15 U/L 5 - 40 [facility] Alanine aminotransferase [Enzymatic activity/volume] in Seru m or Plasma 15 U/L 7 - 56 [facility] Anion gap 3 in Serum or Plasma 10.0 mmol/L 8.0 - 16.0 [facility] AGE 24 yrs [facility] al NON-AA GFR >60 mL/min [facility] ital AFR AMER GFR >60 mL/min [facility] Ho spital Male GFR In [...] >32 mL/min Normal ID Date Data Source [id number] 04/03/2020 05:33:00 PM EST [facility] Name Value Range Interpretation Code Description Data Michelle rce(s) Supporting Document(s) Magnesium [Mass/volume] in Serum or Plasma 1.8 MG/DL 1.7 - 2.2 [facility] ID Date Data Source [id number] 04/03/2020 05:33:00 PM [facility] Name Value Range Interpretation Code Description Data Michelle rce(s) Supporting Document(s) Lipase [Enzymatic activity/volume] in Serum or Plasma 15 U/L 13 - 60 [facility] ID Date Data Source [id number] 04/03/2020 05:27:00 PM [facility] Name Value Range Interpretation Code Description Data Michelle rce(s) Supporting Document(s) HCG SERUM QUAL NEGATIVE NORMAL: NEGATIVE [facility] HCG SERUM QL REENTER NEGATIVE NORMAL: NEGATIVE [facility] { KIT LOT # [id number] ){ KIT EXP DATE 02.20.21 ){ PROCEDURAL CONTROL VALID ) ID Date Data Source [id number] 04/03/2020 05:23:00 PM [facility] Name Value Range Interpretation Code Description Data Michelle rce(s) Supporting Document(s) CBC W/AUTOMATED DIFF [facility] COMPLETE BLOOD COUNT Leukocytes [#/volume] in Blood by Automated count 10.2 10^3/uL 4.2 - 11.0 [facility] Erythrocytes [#/volume] in Blood by Automated count 4.79 10^6/uL 4. 20 - 5.40 [facility] Hemoglobin [Mass/volume] in Blood 11.7 g/dL 12.0 - 16.0 L [facility] Hematocrit [Volume Fraction] of Blood by Automated count 36.9 % 3 7.0 - 47.0 L [facility] Erythrocyte mean corpuscular volume [Entitic volume] by Auto mated count 77.0 fL 81.0 - 101 L [facility] Erythrocyte mean corpuscular hemoglobin [Entitic mass] by Automated count 24.4 pg 27.0 - 34.0 L [facility] Erythrocyte mean corpuscular hemoglobin concentration [Mass/volume] by Automated count 31.7 g/dL 31.0 - 36.0 [facility] Erythrocyte distribution width [Ratio] by Automated count 16.5 % 11.5 - 14.5 H [facility] Platelets [#/volume] in Blood by Automated count 365 10^3/uL 150 - 45 0 [facility] Platelet mean volume [Entitic volume] in Blood by Automated count 11.2 fL 7.4 - 10.4 H [facility] Neutrophils/100 leukocytes in Blood by Automated count 83.4 % 37. 0 - 80.0 H [facility] Lymphocytes/100 leukocytes in Blood by Manual count 10.4 % 25.0 - 40.0 L [facility] Monocytes/100 leukocytes in Blood by Automated count 5.6 % 3.0 - 8.0 [facility] Eosinophils/100 leukocytes in Blood by Automated count 0.0 % 0.0 - 7.0 [facility] Basophils/100 leukocytes in Blood by Automated count 0.2 % 0.0 - 2.5 [facility] %IG 0.4 % 0.0 - 0.0 H [facility] Hospit al %NRBC 0.0 % 0.0 - 0.0 [facility] al Neutrophils [#/volume] in Blood by Automated count 8.50 10^3/uL 2.00 - 6.90 H [facility] Lymphocytes [#/volume] in Blood by Automated count 1.06 10^3/uL 0.60 - 3.40 [facility] Monocytes [#/volume] in Blood by Automated count 0.57 10^3/uL 0.00 - 0.90 [facility] Eosinophils [#/volume] in Blood by Automated count 0.00 10^3/uL 0.00 - 0.70 [facility] Basophils [#/volume] in Blood by Automated count 0.02 10^3/uL 0.00 - 0.20 [facility] #IG 0.04 10^3/uL 0.00 - 0.10 [facility] ospital #NRBC 0.00 10^3/uL 0.00 - 0.00 [facility] ospital MANUAL DIFF NOT INDICATED [facility] RBC MORPH NOT INDICATED [facility] spital ID Date Data Source [id number] 04/03/2020 05:23:00 PM EST [facility] Name Value Range Interpretation Code Description Data Michelle rce(s) Supporting Document(s) Lactate [Moles/volume] in Serum or Plasma 1.6 MMOL/L 0.2 - 2.2 [facility] ID Date Data Source [id number] 02/17/2020 01:07:[address] [facility] [address] [place] [address] PHONE: [phone] FAX: [phone] Name .................. : RITTER NATALIYA Martinez Acct Number.................. : [id number] ROOM. ................. : 117-1 Number ................... : [id number] Stay type ............. : O/P Discharge Date......... ... : Admit Date ......... : 02/16/20 Admit Phys .................... : CLAUDIO Date of ....... : 1995 Family Phys ................... : [employer] Phone .................. : [phone] Age ................................ : 24 Film# .................. .:[id number] Sex ................................. : F Unsigned transcriptions are preliminary reports and do not represent a medical or legal document CT ABD & PELVIS W/ IV ONLY [id number] COMPLETE:02/16/20 21:34 KJE [id number] (REASON FOR ABDOMEN: ABDOMINAL PAIN CT OF [...] dose: 507.0 mGycm Page 1 of 2 [facility] [address] [place] [address] PHONE: [phone] FAX: [phone] Name .................. : RITTER NATALIYA Martinez Acct Number.................. : [id number] ROOM. ................. : 117-1 MR Number ................... : [id number] Stay type ............. : O/P Discharge Date......... ... : Admit Date ......... : 02/16/20 Admit Phys .................... : CLAUDIO Date of ....... : 1995 Family Phys ................... : COLLAZO Hundo Phone .................. : [phone] Age ................................ : 24 Film# .................. .:[id number] Sex ................................. : F Unsigned transcriptions are preliminary reports and do not represent a medical or legal document CT ABD & PELVIS W/ IV ONLY [id number] COMPLETE:02/16/20 21:34 KJE [id number] (REASON FOR ABDOMEN: ABDOMINAL PAIN Contrast agent in mL: 75 Isovue 370 Method of administration: Intravenous Electronically Reviewed and Signed By Genaro Lozoya M.D. , 02/17/20 13:07, ALREY Transcribe Initials: DZ , Transcribe Date: 02/17/20 02:00, Dictation Date: Copy for: DAVDI Prince via fax Copy for: EMERGENCY DEPT via modem Copy for: 710 MED REC Page 2 of 2 Name Value Range Interpretation Code Description Data Michelle rce(s) Supporting Document(s) ID Date Data Source [id number] 02/17/2020 07:03:00 AM EDT [facility] Name Value Range Interpretation Code Description Data Michelle rce(s) Supporting Document(s) Magnesium [Mass/volume] in Serum or Plasma 2.5 MG/DL 1.7 - 2.2 H [facility] ID Date Data Source [id number] 02/17/2020 07:03:00 AM EDT [facility] Name Value Range Interpretation Code Description Data Michelle rce(s) Supporting Document(s) COMPREHENSIVE METABOLIC PANEL [facility] COMPREHENSIVE METABOLIC PANEL Sodium [Moles/volume] in Serum or Plasma 146 mEq/L 134 - 153 [facility] Potassium [Moles/volume] in Serum or Plasma 3.4 mEq/L 3.6 - 5.0 L [facility] Chloride [Moles/volume] in Serum or Plasma 107 mEq/L 98 - 107 [facility] Carbon dioxide, total [Moles/volume] in Serum or Plasma 29 MEQ/L 22 - 30 [facility] Glucose [Mass/volume] in Serum or Plasma 89 MG/DL 65 - 110 [facility] BUN 12 MG/DL 7 - 21 [facility] al Creatinine [Mass/volume] in Serum or Plasma 0.6 MG/DL 0.7 - 1.5 L [facility] BUN/CREAT 20 8 - 27 [facility] Protein [Mass/volume] in Serum or Plasma 6.1 G/DL 6.3 - 8.2 L [facility] Albumin [Mass/volume] in Serum or Plasma 4.1 G/DL 3.9 - 5.0 [facility] Globulin [Mass/volume] in Serum by calculation 2.0 GM/DL 2.4 - 3.2 L [facility] A/G RATIO 2.1 0.8 - 2.0 H [facility] Calcium [Mass/volume] in Serum or Plasma 9.0 MG/DL 8.4 - 10.2 [facility] Bilirubin.total [Mass/volume] in Serum or Plasma <0.7 MG/DL 0.2 - 1.3 [facility] Alkaline phosphatase [Enzymatic activity/volume] in Serum or Plasma 52 U/L 38 - 126 [facility] Aspartate aminotransferase [Enzymatic activity/volume] in Serum or Plasma 21 U/L 5 - 40 [facility] Alanine aminotransferase [Enzymatic activity/volume] in Seru m or Plasma 44 U/L 7 - 56 [facility] Anion gap 3 in Serum or Plasma 10.0 mmol/L 8.0 - 16.0 [facility] AGE 24 yrs [facility] al NON-AA GFR >60 mL/min [facility] ital AFR AMER GFR >60 mL/min [facility] Ho spital Male GFR In [...] >32 mL/min Normal ID Date Data Source [id number] 02/17/2020 07:02:00 AM EDT [facility] Name Value Range Interpretation Code Description Data Michelle rce(s) Supporting Document(s) CBC W/AUTOMATED DIFF [facility] COMPLETE BLOOD COUNT Leukocytes [#/volume] in Blood by Automated count 8.4 10^3/uL 4.2 - 1 1.0 [facility] Erythrocytes [#/volume] in Blood by Automated count 3.93 10^6/uL 4. 20 - 5.40 L [facility] Hemoglobin [Mass/volume] in Blood 10.7 g/dL 12.0 - 16.0 L [facility] Hematocrit [Volume Fraction] of Blood by Automated count 33.8 % 3 7.0 - 47.0 L [facility] Erythrocyte mean corpuscular volume [Entitic volume] by Auto mated count 86.0 fL 81.0 - 101 [facility] Erythrocyte mean corpuscular hemoglobin [Entitic mass] by Automated count 27.2 pg 27.0 - 34.0 [facility] Erythrocyte mean corpuscular hemoglobin concentration [Mass/volume] by Automated count 31.7 g/dL 31.0 - 36.0 [facility] Erythrocyte distribution width [Ratio] by Automated count 14.2 % 11.5 - 14.5 [facility] Platelets [#/volume] in Blood by Automated count 267 10^3/uL 150 - 45 0 [facility] Platelet mean volume [Entitic volume] in Blood by Automated count 10.9 fL 7.4 - 10.4 H [facility] Neutrophils/100 leukocytes in Blood by Automated count 64.9 % 37. 0 - 80.0 [facility] Lymphocytes/100 leukocytes in Blood by Manual count 26.3 % 25.0 - 40.0 [facility] Monocytes/100 leukocytes in Blood by Automated count 7.8 % 3.0 - 8.0 [facility] Eosinophils/100 leukocytes in Blood by Automated count 0.2 % 0.0 - 7.0 [facility] Basophils/100 leukocytes in Blood by Automated count 0.4 % 0.0 - 2.5 [facility] %IG 0.4 % 0.0 - 0.0 H [facility] %NRBC 0.0 % 0.0 - 0.0 [facility] al Neutrophils [#/volume] in Blood by Automated count 5.42 10^3/uL 2.00 - 6.90 [facility] Lymphocytes [#/volume] in Blood by Automated count 2.20 10^3/uL 0.60 - 3.40 [facility] Monocytes [#/volume] in Blood by Automated count 0.65 10^3/uL 0.00 - 0.90 [facility] Eosinophils [#/volume] in Blood by Automated count 0.02 10^3/uL 0.00 - 0.70 [facility] Basophils [#/volume] in Blood by Automated count 0.03 10^3/uL 0.00 - 0.20 [facility] #IG 0.03 10^3/uL 0.00 - 0.10 [facility] H ospital #NRBC 0.00 10^3/uL 0.00 - 0.00 [facility] H ospital MANUAL DIFF NOT INDICATED [facility] RBC MORPH NOT INDICATED [facility] spital ID Date Data Source [id number] 02/16/2020 04:43:00 PM EDT [facility] 1 OrderSheet [facility] Emergency Department [address] [place] [address] Phone #: ext- [phone] 02/16/2020 16:35 Patient: NATALIYA BEASLEY Sex: F : 1995 Age: 24yWEIGHT:61.2 kg HEIGHT:62 inches BMI:24.7ALLERGIES: No Known Drug AllergyCHIEF COMPLAINT: abdominal pain, vomiting, nausea, constipationDIAGNOSIS: ProblemLAB ORDERSOrder Description Priority Entered Acknowledged InitialedCBC w Diff STAT 17:05 02/16/2020 17:17 Jc Haines ED; [id number] STAT 17:05 02/16/2020 17:17 [facility] assistant plant controller, Jc ER PA; [id number] STAT 17:05 02/16/2020 17:17 [facility] Tech, Jc ER PA; [id number] (Clean STAT 17:05 02/16/2020 Ack'd: 17:26Catch) [facility] plant controller, PA; Jc ER [id number] STAT 17:05 02/16/2020 17:17 [facility] Tech, Jc ER PA; [id number] STAT 17:05 02/16/2020 17:17 [facility] Tech, Jc ER PA; [id number] (Clean STAT 20:52 02/16/2020 Ack'd: 21:11Catch) Mariano Starks R.N.;Beta- HCG, Qual STAT 20:52 02/16/2020 Ack'd: 21:12Urine Mariano Starks R.N. PA;DIAGNOSTIC STUDY ORDERSOrder Description Priority Entered Acknowledged InitialedMEDICATION/IV/DRIP/FLUID ORDERSOrder Description Priority Entered Acknowledged Initialed 2 OrderSheet [facility] Emergency Department [address] [place] [address] Phone #: ext- [phone] 02/16/2020 16:35 Patient: NATALIYA BEASLEY Sex: F : 1995 Age: 24yNS IV 1000 mL 17:05 02/16/2020 17:41 Sonia Jhaverius: : Bolus 1000 Nik Paul R.N.mL (X1) PA;Zofran IVP 8 mg 17:05 02/16/2020 17:42 Maria De Jesus JhaveriNSveta PA;KCl IVPB 10 18:19 02/16/2020 20:01 Ronda Jhaveriameq/100mL (NOW NikMarinelli R.N.x1) PA;KCl Liquid PO 40 18:19 02/16/2020 18:50 Ronda Jhaveriameq Nik CLARK;Magnesium Sulfate 18:19 02/16/2020 18:49 Hernando Jhaveri g IVPB X1 dose: 2 Nik Paul R.Tana.gm (HIGH ALERT PA;MEDICATION, X1)Protonix IVPB 40 20:55 02/16/2020 21:17 Shakila Theamg with Dextrose Nik Paul R.N.100 ml spike bag PA;(D5W)Zofran IVP 8 mg 20:55 02/16/2020 21:17 Maria De Jesus Jhaveri R.N.;GENERAL ORDERSOrder Description Priority Entered Acknowledged InitialedNPO 17:02/16/2020 17:06 Maria De Jesus Jhaveri R.N.;Saline Lock 17:02/16/2020 17:41 Maria De Jesus Jhaveri R.N.;[Electronically signed by Nik Paul (21:08 02/16/2020)][Electronically signed by Maria De Jesus Jhaveri R.N. (22:22 02/16/2020)][E lectronically locked by Maria De Jesus Jhaveri R.N. (22:22 02/16/2020)] Name Value Range Interpretation Code Description Data Michelle rce(s) Supporting Document(s) ID Date Data Source [id number] 02/16/2020 04:43:00 PM EDT [facility] 1 Medication Reconciliation Report [facility] Emergency Department [address] [place] [address] Phone #: ext- [phone] 02/16/2020 16:35 Patient: [...] rce(s) Supporting Document(s) ID Date Data Source [id number] 02/16/2020 04:43:00 PM EDT [facility] 1 Medication Administration Record [facility] Emergency Department [address] [place] [address] Phone #: ext- [phone] 02/16/2020 16:35 Patient: NATALIYA BEASLEY Sex: F : 1995 Age: 24yWeight: 61.2 kgHeight/Length: 62 inBMI: 24.7ALLERGIES: No Known Drug Allergy Date/Time Medication Administered Medication OrderedStart IV NS W/ BOLUS NS IV 1000 mL Bolus: : Bolus 813223:[id number] 02/16/2020 Dose: IV Fluids mL (X1)Maria De Jesus Jhaveri, R.N. Rate: 1000 mL/hr over 1 hour(s)---- Dispensed: 1000 mL bagStop Site: #1 right :49 02/16/2020Shakila Maria De Jesus, R.N.Given ZOFRAN [IVP] (ONDANSETRON HCL) Zofran IVP 8 mg17:42 02/16/2020 Dose: 8 mg IVPHale Maria De Jesus, R.N. Site: #1 right forearmStart KCL [IVPB] KCl IVPB 10 meq/100mL (NOW x1)19:56 02/16/2020 Dose: 10 meq IVPBShakila Maria De Jesus, R.N. Rate: 100 mL/hr over 1 hour(s)---- Dispensed: 100 mL bagStop Site: #1 right :56 02/16/2020Shakila Maria De Jesus, R.N.Given KCL LIQUID PO KCl Liquid PO 40 meq18:50 02/16/2020 Dose: 40 meq Syrup/Liquid POShakila Maria De Jesus, R.N.Start MAGNESIUM SULFATE [IVPB] Magnesium Sulfate 2 g IVPB X118:49 02/16/2020 Dose: 2 gm IVPB dose: 2 gm (HIGH ALERTShakila Maria De Jesus, R.N. Rate: 2 gm/hr over 1 hour(s) MEDICATION, X1)---- Dispensed: 50 mL bagStop Site: #1 right wapapys05:51 02/16/2020Shakila Maria De Jesus, R.N.Start PROTONIX [IVPB] (PANTOPRAZOLE Protonix IVPB 40 mg with21:12 02/16/2020 SODIUM) Dextrose 100 ml spike bag (D5W)Maria De Jesus Jhaveri, R.N. Dose: 40 mg IVPB---- Rate: 8 mg/hr over 1 hour(s)Stop Dispensed: 100 mL bag21:45 02/16/2020 Site: #1 right forearmMaria De Jesus Jhaveri R.N.Given ZOFRAN [IVP] (ONDANSETRON HCL) Zofran IVP 8 mg21:12 02/16/2020 Dose: 8 mg IVPHale, Maria De Jesus, R.N. Site: #1 right forearm Name Value Range Interpretation Code Description Data Mcihelle rce(s) Supporting Document(s) ID Date Data Source [id number] 02/16/2020 04:43:00 PM EDT [facility] 1 General Instructions [facility] Emergency Department [address] [place] [address] Phone #: ext- [phone] 02/16/2020 16:35 Patient: NATALIYA BEASLEY Sex: F : 1995 Age: 24yHypokalemia; hypomagnesemia.(Electronically signed by EDUARDO Moses 02/16/2020 21:08) Name Value Range Interpretation Code Description Data Michelle rce(s) Supporting Document(s) ID Date Data Source [id number] 02/16/2020 04:43:00 PM EDT [facility] 1 Clinical Report - Nurses [facility] Emergency Department [address] [place] [address] Phone #: ext- [phone] 02/16/2020 16:35 Patient: [...] to shake after making this statement to technical writer and editor. ptmucous membranes do appear dry.).Triage time: 16:41 02/16/2020. Acuity: LEVEL 3.Chief Complaint: ABDOMINAL PAIN.Alert.Onset. (four days ago). ( pt states "i am a ten, i don't feel well" for her pain scale.). The patient has hadnausea and vomiting. Last oral intake by patient was (this am-yogurt but reports emesis).Treatment ON SITE SERVICES SPECIALIST:None. --16:46 02/16/20 Natividad Felix R.N.16:41 02/16/20. BP: [...] harming or 2 Clinical Report - Nurses [facility] Emergency Department [address] [place] [address] Phone #: ext- [phone] 02/16/2020 16:35 Patient: [...] ( Pt 3 Clinical Report - Nurses [facility] Emergency Department [address] [place] [address] Phone #: ext- [phone] 02/16/2020 16:35 Patient: [...] no pain, redness, or swelling. IV flushedthoroughly. --20:02/16/20 Maria De Jesus Jhaveri R.N.19:56 02/16/2020 Started [...] precautions. Verbalizes 4 Clinical Report - Nurses [facility] Emergency Department [address] [place] [address] Phone #: ext- [phone] 02/16/2020 16:35 Patient: NATALIYA BEASLEY Sex: F : 1995 Age: 24y understanding. --21:17 02/16/20 Maria De Jesus Jhaveri R.N. 21:21 02/16/20. Patient transported to [place] by wheelchair with mask and histopath tech. --21:26 02/16/20 Maria De Jesus Jhaveri R.N. Patient returned from CT by wheelchair with mask and histopath tech. --21:34 02/16/20 Maria De Jesus Jhaveri R.N. 21:00 02/16/20. BP: 121/80. MAP: 93. HR: 74. RR: 16. O2 saturation: 99%. --21:50 02/16/20 Maria De Jesus Jhaveri R.N. The patient reports no complaints and she is calm and resting quietly. Care transferred and report given (Bambi RN 2200). --22:00 02/16/20 Maria De Jesus Jhaveri [...] rce(s) Supporting Document(s) ID Date Data Source [id number] 02/16/2020 04:43:00 PM EDT [facility] 1 Clinical Report - Physicians/Mid Levels [facility] Emergency Department [address] [place] [address] Phone #: ext- [phone] 02/16/2020 16:35 Patient: NATALIYA BEASLEY Sex: F [...] to shake after making this statement to technical writer and editor. pt mucous membranes do appear dry [...] normal. 2 Clinical Report - Physicians/Mid Levels [facility] Emergency Department [address] [place] [address] Phone #: ext- [phone] 02/16/2020 16:35 [id number] Sex: F : 1995 Age: 24y Neck: [...] BACK BEN IN ER BY: CD DATE/TIME 02.16.20 1802 CHLORIDE 95 L mEq/L (98 - 107) 3 Clinical Report - Physicians/Mid Levels [facility] Emergency Department [address] [place] [address] Phone #: ext- [phone] 02/16/2020 16:35 Patient: [...] mL/min Normal Lipase: (ANGELY: 02/16/2020 17:22) ( MsgRcvd 02/16/2020 18:04) Final results Test Result Flag Units (Reference) LIPASE 15 U/L (13 - 60) Magnesium: (ANGELY: 02/16/2020 17:22) ( MsgRcvd 02/16/2020 18:04) Final results Test Result Flag Units (Reference) MAGNESIUM 1.6 L MG/DL (1.7 - 2.2) ETOH: (ANGELY: 02/16/2020 17:22) ( MsgRcvd 02/16/2020 18:04) Final results Test Result Flag Units (Reference) ALCOHOL <10.0 MG/DL ALCOHOL % 0.00 % (0.00 - 0.01) *FOR MEDICAL PURPOSES ONLY*.PROGRESS AND PROCEDURESCourse of Care: 18:37 Oct 0 1 2020. Evaluation after observation. (Discussed mag and potassium levelswith Sarah CASIANO MACHINE SHOP REPAIR TECHNICIAN and she will obs pt. Pt is [...] and 4 Clinical Report - Physicians/Mid Levels [facility] Emergency Department [address] [place] [address] Phone #: ext- [phone] 02/16/2020 16:35 Patient: NATALIYA BEASLEY Sex: F : 1995 Age: 24y need for admission. Patient and mother agrees with plan of care. 18:38 Feb 16 2020. Disposition: Observation in the Acute Inpatient Unit, Monitored. 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 UTI (catheter associated) was not present prior [...] rce(s) Supporting Document(s) ID Date Data Source [id number] 02/20/2020 03:47:00 PM EDT [facility] Name Value Range Interpretation Code Description Data Michelle rce(s) Supporting Document(s) CULTURE URINE [facility] _CULTURE URINE_$$[id number]$$465800$$202086$$601304$$441417$$676439$$735003$$596315$$473030$$ 514005$$652964$$350160$$685105$$458893$$079996$$167509$$361308$$391350$$275883$$ 769219$$116169$$068289$$131210$$307866$$659849$$883130$$149164 -- Continued on next page --Patient: RITTER NATALIYA Martinez Order: [id number] Page 2Culture: CULTURE URINE Status: Final ==== -- Continued on next page --Patient: RITTER NATALIYA Martinez Order: [id number] Page 2Culture: CULTURE URINE Status: Prelim =====$$[id number]$$[id number] DATE/TIME: 02/20/2020 15:06Culture: CULTURE URINE Status: FinalUrine Culture,Comprehensive: J0Zauhs urogenital flora10,000-25,000 colony forming units per mL Previous result entered on 02/19/2020 03:15 ET Specimen has been received and testing has been initiated.P1 Test performed by: [facility] Roly CLANCY #: [id number] [address] [place] [address] [id number] [facility] [id number] Director : Abhilash Hilario MD NPI #:Nurse Reviewer : 02/20/20.0635.XMT.SENT REF 02/20/20.1548.XMT.SENT REF 02/20/20.1548.CM .to GENNARO via fax ID Date Data Source [id number] 02/16/2020 09:26:00 PM EDT [facility] Name Value Range Interpretation Code Description Data Michelle rce(s) Supporting Document(s) [facility] R [facility] COL[facility] yellow NORMAL: Yellow [facility] CLARITY clear NORMAL: Clear [facility] Specific gravity of Urine by Test strip 1.010 1.001 - 1.030 [facility] pH 7 5 - 9 [facility] al Glucose [Mass/volume] in Urine by Test strip NORM NORMAL: Negat [facility] Bilirubin.total [Presence] in Urine by Test strip NEG NORMAL: Negative [facility] Ketones [Presence] in Urine by Test strip 150 NORMAL: Negative A [facility] Protein [Mass/volume] in Urine by Test strip 30 NORMAL: Negat [facility] Nitrite [Presence] in Urine by Test strip NEG NORMAL: Negative [facility] BLOOD NEG NORMAL: Negative [facility] Leukocyte esterase [Presence] in Urine by Test strip 25 DAYLIN L: Negative [facility] Urobilinogen [Mass/volume] in Urine by Test strip 4 less tito n 1.0 mg/dL [facility] MICROSCOPIC See Below [facility] ital WBC 0 - 1 NORMAL: NONE SEEN [facility] Erythrocytes [#/volume] in Urine by Test strip 0 - 1 NORMAL: NON E SEEN [facility] EPITHELIAL MANY NORMAL: NONE SEEN A [facility] Bacteria [Presence] in Urine sediment by Light microscopy 2+ MOD NORMAL: NONE SEEN A [facility] ID Date Data Source [id number] 02/16/2020 09:24:00 PM EDT [facility] Name Value Range Interpretation Code Description Data Michelle rce(s) Supporting Document(s) HCG URINE QUAL NEGATIVE NORMAL: NEGATIVE [facility] HCG URINE QL REENTER NEGATIVE NORMAL: NEGATIVE [facility] { KIT LOT # [id number] ){ KIT EXP DATE 02/20/21 ){ PROCEDURAL CONTROL VALID ) ID Date Data Source [id number] 02/16/2020 09:22:00 PM EDT [facility] Name Value Range Interpretation Code Description Data Michelle rce(s) Supporting Document(s) HCG SERUM QUAL NEGATIVE NORMAL: NEGATIVE [facility] HCG SERUM QL REENTER NEGATIVE NORMAL: NEGATIVE [facility] { KIT LOT # [id number] ){ KIT EXP DATE 02.20.21 ){ PROCEDURAL CONTROL VALID ) ID Date Data Source [id number] 02/16/2020 06:04:00 PM EDT [facility] Name Value Range Interpretation Code Description Data Michelle rce(s) Supporting Document(s) Ethanol [Moles/volume] in Blood <10.0 MG/DL [facility] ALCOHOL % 0.00 % 0.00 - 0.01 [facility] ital *FOR MEDICAL PURPOSES ONLY * ID Date Data Source [id number] 02/16/2020 06:04:00 PM EDT [facility] Name Value Range Interpretation Code Description Data Michelle rce(s) Supporting Document(s) Magnesium [Mass/volume] in Serum or Plasma 1.6 MG/DL 1.7 - 2.2 L [facility] ID Date Data Source [id number] 02/16/2020 06:04:00 PM EDT [facility] Name Value Range Interpretation Code Description Data Michelle rce(s) Supporting Document(s) Lipase [Enzymatic activity/volume] in Serum or Plasma 15 U/L 13 - 60 [facility] ID Date Data Source [id number] 02/16/2020 06:00:00 PM EDT [facility] Name Value Range Interpretation Code Description Data Michelle rce(s) Supporting Document(s) COMPREHENSIVE METABOLIC PANEL [facility] COMPREHENSIVE METABOLIC PANEL Sodium [Moles/volume] in Serum or Plasma 141 mEq/L 134 - 153 [facility] Potassium [Moles/volume] in Serum or Plasma 2.6 mEq/L 3.6 - 5.0 LL [facility] CALL/ READ BACK BEN IN ER [facility] BY: CD [facility] DATE/TIME 02.16.201801 [facility] Chloride [Moles/volume] in Serum or Plasma 95 mEq/L 98 - 107 L [facility] Carbon dioxide, total [Moles/volume] in Serum or Plasma 28 MEQ/L 22 - 30 [facility] Glucose [Mass/volume] in Serum or Plasma 108 MG/DL 65 - 110 [facility] BUN 17 MG/DL 7 - 21 [facility] al Creatinine [Mass/volume] in Serum or Plasma 0.6 MG/DL 0.7 - 1.5 L [facility] BUN/CREAT 28 8 - 27 H [facility] al Protein [Mass/volume] in Serum or Plasma 8.3 G/DL 6.3 - 8.2 H [facility] Albumin [Mass/volume] in Serum or Plasma 5.3 G/DL 3.9 - 5.0 H [facility] Globulin [Mass/volume] in Serum by calculation 3.0 GM/DL 2.4 - 3.2 [facility] A/G RATIO 1.8 0.8 - 2.0 [facility] Calcium [Mass/volume] in Serum or Plasma 10.3 MG/DL 8.4 - 10.2 H [facility] Bilirubin.total [Mass/volume] in Serum or Plasma 0.9 MG/DL 0.2 - 1.3 [facility] Alkaline phosphatase [Enzymatic activity/volume] in Serum or Plasma 71 U/L 38 - 126 [facility] Aspartate aminotransferase [Enzymatic activity/volume] in Serum or Plasma 36 U/L 5 - 40 [facility] Alanine aminotransferase [Enzymatic activity/volume] in Seru m or Plasma 63 U/L 7 - 56 H [facility] Anion gap 3 in Serum or Plasma 18.0 mmol/L 8.0 - 16.0 H [facility] AGE 24 yrs [facility] al NON-AA GFR >60 mL/min [facility] ital AFR AMER GFR >60 mL/min [facility] Male GFR In [...] >32 mL/min Normal ID Date Data Source [id number] 02/16/2020 05:38:00 PM EDT [facility] Name Value Range Interpretation Code Description Data Michelle rce(s) Supporting Document(s) CBC W/AUTOMATED DIFF [facility] COMPLETE BLOOD COUNT Leukocytes [#/volume] in Blood by Automated count 10.4 10^3/uL 4.2 - 11.0 [facility] Erythrocytes [#/volume] in Blood by Automated count 4.60 10^6/uL 4. 20 - 5.40 [facility] Hemoglobin [Mass/volume] in Blood 12.6 g/dL 12.0 - 16.0 [facility] Hematocrit [Volume Fraction] of Blood by Automated count 37.9 % 3 7.0 - 47.0 [facility] Erythrocyte mean corpuscular volume [Entitic volume] by Auto mated count 82.4 fL 81.0 - 101 [facility] Erythrocyte mean corpuscular hemoglobin [Entitic mass] by Automated count 27.4 pg 27.0 - 34.0 [facility] Erythrocyte mean corpuscular hemoglobin concentration [Mass/volume] by Automated count 33.2 g/dL 31.0 - 36.0 [facility] Erythrocyte distribution width [Ratio] by Automated count 13.8 % 11.5 - 14.5 [facility] Platelets [#/volume] in Blood by Automated count 360 10^3/uL 150 - 45 0 [facility] Platelet mean volume [Entitic volume] in Blood by Automated count 10.7 fL 7.4 - 10.4 H [facility] Neutrophils/100 leukocytes in Blood by Automated count 77.0 % 37. 0 - 80.0 [facility] Lymphocytes/100 leukocytes in Blood by Manual count 14.3 % 25.0 - 40.0 L [facility] Monocytes/100 leukocytes in Blood by Automated count 8.0 % 3.0 - 8.0 [facility] Eosinophils/100 leukocytes in Blood by Automated count 0.0 % 0.0 - 7.0 [facility] Basophils/100 leukocytes in Blood by Automated count 0.2 % 0.0 - 2.5 [facility] %IG 0.5 % 0.0 - 0.0 H [facility] %NRBC 0.0 % 0.0 - 0.0 [facility] al Neutrophils [#/volume] in Blood by Automated count 7.98 10^3/uL 2.00 - 6.90 H [facility] Lymphocytes [#/volume] in Blood by Automated count 1.48 10^3/uL 0.60 - 3.40 [facility] Monocytes [#/volume] in Blood by Automated count 0.83 10^3/uL 0.00 - 0.90 [facility] Eosinophils [#/volume] in Blood by Automated count 0.00 10^3/uL 0.00 - 0.70 [facility] Basophils [#/volume] in Blood by Automated count 0.02 10^3/uL 0.00 - 0.20 [facility] #IG 0.05 10^3/uL 0.00 - 0.10 [facility] #NRBC 0.00 10^3/uL 0.00 - 0.00 [facility] MANUAL DIFF NOT INDICATED [facility] RBC MORPH NOT INDICATED [facility] spital ID Date Data Source [id number] 01/19/2020 08:44:00 AM EDT [facility] Name Value Range Interpretation Code Description Data Michelle rce(s) Supporting Document(s) HCT 28.4 % 36.0-47.0 L [facility] HGB 9.3 g/dL 12.0-15.5 L [facility] MCH 32.7 G/DL pg 32.0-36.5 N [facility] MCHC 31.1 PG % 27.0-33.0 N [facility] PLATELETS 164 10 10*3/mm3 150-450 N [facility] RBC 2.99 10 10*6/mm3 4.00-5.40 L [facility] RDW 13.2 % 11.5-14.5 N [facility] WBC TOTAL 7.3 4.0-10.0 N [facility] ID Date Data Source [id number] 01/19/2020 08:44:00 AM EDT [facility] Name Value Range Interpretation Code Description Data Michelle rce(s) Supporting Document(s) BG FASTING 108 mg/dL 70-100 H [facility] ID Date Data Source [id number] 01/18/2020 04:42:00 AM EDT [facility] 27.49.233.6 G/DL31.4 PG183 102.93 1013.9 9.8 98 30.810.433.8 G/DL31.6 PG176 103.29 1013. 410.7 109 Name Value Range Interpretation Code Description Data Michelle rce(s) Supporting Document(s) ID Date Data Source [id number] 01/18/2020 04:42:00 AM EDT [facility] 27.49.233.6 G/DL31.4 PG183 102.93 1013.9 9.8 98 30.810.433.8 G/DL31.6 PG176 103.29 1013. 410.7 109 Name Value Range Interpretation Code Description Data Michelle rce(s) Supporting Document(s) ID Date Data Source [id number] 01/17/2020 07:33:00 PM EDT [facility] 27.49.233.6 G/DL31.4 PG183 102.93 1013.9 9.8 98 30.810.433.8 G/DL31.6 PG176 103.29 1013. 410.7 109 Name Value Range Interpretation Code Description Data Michelle rce(s) Supporting Document(s) ID Date Data Source [id number] 01/17/2020 07:33:00 PM EDT [facility] 27.49.233.6 G/DL31.4 PG183 102.93 1013.9 9.8 98 30.810.433.8 G/DL31.6 PG176 103.29 1013. 410.7 109 Name Value Range Interpretation Code Description Data Michelle rce(s) Supporting Document(s) ID Date Data Source [id number] 12/27/2019 03:38:00 PM EDT [facility] Name Value Range Interpretation Code Description Data Michelle rce(s) Supporting Document(s) Potassium [Moles/volume] in Serum or Plasma 3.6 mEq/L 3.6 - 5.0 [facility] ID Date Data Source [id number] 12/27/2019 07:03:00 AM EDT [facility] Name Value Range Interpretation Code Description Data Michelle rce(s) Supporting Document(s) COMPREHENSIVE METABOLIC PANEL [facility] COMPREHENSIVE METABOLIC PANEL Sodium [Moles/volume] in Serum or Plasma 137 mEq/L 134 - 153 [facility] Potassium [Moles/volume] in Serum or Plasma 3.2 mEq/L 3.6 - 5.0 L [facility] Chloride [Moles/volume] in Serum or Plasma 101 mEq/L 98 - 107 [facility] Carbon dioxide, total [Moles/volume] in Serum or Plasma 27 MEQ/L 22 - 30 [facility] Glucose [Mass/volume] in Serum or Plasma 91 MG/DL 65 - 110 [facility] BUN 9 MG/DL 7 - 21 [facility] Creatinine [Mass/volume] in Serum or Plasma 0.5 MG/DL 0.7 - 1.5 L [facility] BUN/CREAT 18 8 - [facility] Protein [Mass/volume] in Serum or Plasma 6.0 G/DL 6.3 - 8.2 L [facility] Albumin [Mass/volume] in Serum or Plasma 3.9 G/DL 3.9 - 5.0 [facility] Globulin [Mass/volume] in Serum by calculation 2.1 GM/DL 2.4 - 3.2 L [facility] A/G RATIO 1.9 0.8 - 2.0 [facility] Calcium [Mass/volume] in Serum or Plasma 8.8 MG/DL 8.4 - 10.2 [facility] Bilirubin.total [Mass/volume] in Serum or Plasma 1.4 MG/DL 0.2 - 1.3 H [facility] Alkaline phosphatase [Enzymatic activity/volume] in Serum or Plasma 49 U/L 38 - 126 [facility] Aspartate aminotransferase [Enzymatic activity/volume] in Serum or Plasma 32 U/L 5 - 40 [facility] Alanine aminotransferase [Enzymatic activity/volume] in Seru m or Plasma 33 U/L 7 - 56 [facility] Anion gap 3 in Serum or Plasma 9.0 mmol/L 8.0 - 16.0 [facility] AGE 24 yrs [facility] al NON-AA GFR >60 mL/min [facility] ital AFR AMER GFR >60 mL/min [facility] Male GFR In [...] >32 mL/min Normal ID Date Data Source [id number] 12/27/2019 06:51:00 AM EDT [facility] Name Value Range Interpretation Code Description Data Michelle rce(s) Supporting Document(s) Magnesium [Mass/volume] in Serum or Plasma 2.1 MG/DL 1.7 - 2.2 [facility] ID Date Data Source [id number] 12/27/2019 06:43:00 AM EDT [facility] Name Value Range Interpretation Code Description Data Michelle e(s) Supporting Document(s) CBC W/AUTOMATED DIFF [facility] COMPLETE BLOOD COUNT Leukocytes [#/volume] in Blood by Automated count 8.3 10^3/uL 4.2 - 1 1.0 [facility] Erythrocytes [#/volume] in Blood by Automated count 4.06 10^6/uL 4. 20 - 5.40 L [facility] Hemoglobin [Mass/volume] in Blood 12.7 g/dL 12.0 - 16.0 [facility] Hematocrit [Volume Fraction] of Blood by Automated count 37.3 % 3 7.0 - 47.0 [facility] Erythrocyte mean corpuscular volume [Entitic volume] by Auto mated count 91.9 fL 81.0 - 101 [facility] Erythrocyte mean corpuscular hemoglobin [Entitic mass] by Automated count 31.3 pg 27.0 - 34.0 [facility] Erythrocyte mean corpuscular hemoglobin concentration [Mass/volume] by Automated count 34.0 g/dL 31.0 - 36.0 [facility] Erythrocyte distribution width [Ratio] by Automated count 12.5 % 11.5 - 14.5 [facility] Platelets [#/volume] in Blood by Automated count 231 10^3/uL 150 - 45 0 [facility] Platelet mean volume [Entitic volume] in Blood by Automated count 10.2 fL 7.4 - 10.4 [facility] Neutrophils/100 leukocytes in Blood by Automated count 65.2 % 37. 0 - 80.0 [facility] Lymphocytes/100 leukocytes in Blood by Manual count 25.2 % 25.0 - 40.0 [facility] Monocytes/100 leukocytes in Blood by Automated count 8.8 % 3.0 - 8.0 H [facility] Eosinophils/100 leukocytes in Blood by Automated count 0.2 % 0.0 - 7.0 [facility] Basophils/100 leukocytes in Blood by Automated count 0.2 % 0.0 - 2.5 [facility] %IG 0.4 % 0.0 - 0.[address] [facility] %NRBC 0.0 % 0.0 - 0.0 [facility] Neutrophils [#/volume] in Blood by Automated count 5.41 10^3/uL 2.00 - 6.90 [facility] Lymphocytes [#/volume] in Blood by Automated count 2.09 10^3/uL 0.60 - 3.40 [facility] Monocytes [#/volume] in Blood by Automated count 0.73 10^3/uL 0.00 - 0.90 [facility] Eosinophils [#/volume] in Blood by Automated count 0.02 10^3/uL 0.00 - 0.70 [facility] Basophils [#/volume] in Blood by Automated count 0.02 10^3/uL 0.00 - 0.20 [facility] #IG 0.03 10^3/uL 0.00 - 0.10 [facility] #NRBC 0.00 10^3/uL 0.00 - 0.00 [facility] MANUAL DIFF NOT INDICATED [facility] RBC MORPH NOT INDICATED [facility] spital ID Date Data Source [id number] 12/26/2019 10:41:[place] [address] RESPIRATORY CARE REPORT ==== ---------NAME------- NUMBER SEX AGE ADMIT DISC. XRAY# F/C TYPERIARIN Martinez [id number] F 24 12/26/19 [id number] X6B O/P DATE OF : 1995 M/R# [id number] #: [id number] LOCATION: EMERGENCY DEPT EKG [id number] COMP LETE:12/26/19 14:18 EWW [id number] PHYSICIAN: CLAUDIO PAUL Name Value Range Interpretation Code Description Data Michelle rce(s) Supporting Document(s) ID Date Data Source [id number] 12/26/2019 10:59:00 AM EDT [facility] 1 OrderSheet [facility] Emergency Department [address] [place] [address] Phone #: ext- [phone] 12/26/2019 10:40 Patient: NATALIYA BEASLEY Sex: F : 1995 Age: 24yWEIGHT:58.9 kg (S) HEIGHT:64 inches (S) BMI:22.3ALLERGIES: Sulfa AntibioticsCHIEF COMPLAINT: abdominal painDIAGNOSIS: ProblemLAB ORDERSOrder Description Priority Entered Acknowledged InitialedCBC w Diff STAT 11:03 12/26/2019 11:22 Nik Quiles R.N.;CMP STAT 11:03 12/26/2019 11:22 Nik Quiles R.N.;Urinalysis (Clean STAT 11:03 12/26/2019 Ack'd: 11:22 13:38 EttaCatch) Zakiya Campa R.N.; R.N.Beta-HCG, Qual STAT 11:03 [...] IV : Bolus 1000 11:03 12/26/2019 11:22 Sallykumaro, 2 OrderSheet [facility] Emergency Department [address] [place] [address] Phone #: ext- [phone] 12/26/2019 10:40 Patient: NATALIYA BEASLEY Sex: F : 1995 Age: 24ymL, then 150 mL/hr Nik CLARK;KCl Liquid PO 40 12:06 12/26/2019 12:18 Sallygno,meq Nik Sigala R.N. PA;KCl IVPB 10 12:06 12/26/2019 12:18 Sallygno,meq/100mL Nik Lundberg.N. EDUARDO;Zofran ODT PO 8 12:09 12/26/2019 12:15 Etta,mg Nik Sigala R.N. PA;Magnesium Sulfate 12:18 12/26/2019 12:29 Etta,2 g IVPB X1 dose: 2 Nik Sigala R.N.gm (HIGH ALERT PA;MEDICATION, X1)KCl Liquid PO 40 14:54 12/26/2019 15:05 Melaragno,meq Nik Lundberg.N. PA;KCl IVPB 10 14:54 12/26/2019 15:06 Melaragno,meq/100mL Nik Sigala R.N. PA;Zofran IVP 8 mg 15:27 12/26/2019 15:36 Alexia Kemp R.N.;GENERAL ORDERSOrder Description Priority Entered Acknowledged InitialedEKG 11:03 12/26/2019 11:22 Nik Quiles R.N.;Saline Lock 11:03 12/26/2019 11:22 Nik QuilesNSveta CLARK;[Electronically signed by Zakiya Quiles R.N. (16:39 12/26/2019)][Electronically signed by Nik Paul (21:44 12/26/2019)][Electronically locked by Zakiya Quiles R.N. (16:39 12/26/2019)] Name Value Range Interpretation Code Description Data Michelle rce(s) Supporting Document(s) ID Date Data Source [id number] 12/26/2019 10:59:00 AM EDT [facility] 1 Medication Reconciliation Report [facility] Emergency Department [address] [place] [address] Phone #: ext- [phone] 12/26/2019 10:40 Patient: [...] rce(s) Supporting Document(s) ID Date Data Source [id number] 12/26/2019 10:59:00 AM EDT [facility] 1 Medication Administration Record [facility] Emergency Department [address] [place] [address] Phone #: ext- [phone] 12/26/2019 10:40 Patient: NATALIYA BEASLEY Sex: F : 1995 Age: 24yWeight: 58.9 kgHeight/Length: 64 inBMI: 22.3ALLERGIES: Sulfa Antibiotics Date/Time Medication Administered Medication OrderedStart LR [IV] LR IV : Bolus 1000 mL, then 22736:22 12/26/2019 Dose: IV Fluids mL/hrZakiya Quiles, R.N. Bolus: 1000 mL wide open---- Dispensed: 1000 mL bagStop Site: #1 left AC16:30 12/26/2019Zakiya Quiles, R.N.Given KCL LIQUID PO KCl Liquid PO 40 meq12:18 12/26/2019 Dose: 40 meq Zakiya Mary, R.N.Start KCL [IVPB] KCl IVPB 10 meq/056wF14:15 12/26/2019 Dose: 10 meq IVPBZakiya Quiles, R.N. Rate: 100 mL/hr over 60 minute(s)---- Dispensed: 100 mL bagStop Site: #1 left AC13:54 12/26/2019Alexia Kemp RPuraGiven ZOFRAN ODT [PO] (ONDANSETRON Zofran ODT PO 8 mg12:15 12/26/2019 HCL)Zakiya Quiles R.N. Dose: 8 mg POStart MAGNESIUM SULFATE [IVPB] Magnesium Sulfate 2 g IVPB X112:29 12/26/2019 Dose: 2 gm IVPB dose: 2 gm (HIGH ALERTZakiya Quiles RPura Rate: 50 mL/hr over 1 hour(s) MEDICATION, X1)---- Dispensed: 50 mL bagStop Site: #1 left AC13:54 12/26/2019Alexia Kemp RPuraGiven KCL LIQUID PO KCl Liquid PO 40 meq15:05 12/26/2019 Dose: 40 meq Zakiya Mary R.N.Start KCL [IVPB] KCl IVPB 10 meq/784dN67:06 12/26/2019 Dose: 10 meq IVPBZakiya Quiles R.N. Rate: 100 mL/hr over 1 hour(s)---- Dispensed: 100 mL bagStop Site: #1 left AC16:11 12/26/2019Zakiya Quiles RPuraGiven ZOFRAN [IVP] (ONDANSETRON HCL) Zofran IVP 8 mg15:36 12/26/2019 Dose: 8 mg Alexia Kelly RSvetaNSveta Site: #1 left AC Name Value Range Interpretation Code Description Data Michelle rce(s) Supporting Document(s) ID Date Data Source [id number] 12/26/2019 10:59:00 AM EDT [facility] 1 General Instructions [facility] Emergency Department [address] [place] [address] Phone #: ext- [phone] 12/26/2019 10:40 Patient: NATALIYA BEASLEY Sex: F : 1995 Age: 24yHypokalemia.(Electronically signed by EDUARDO Moses 12/26/2019 21:44) Name Value Range Interpretation Code Description Data Michelle rce(s) Supporting Document(s) ID Date Data Source [id number] 12/26/2019 10:59:00 AM EDT [facility] 1 Clinical Report - Nurses [facility] Emergency Department [address] [place] [address] Phone #: ext- [phone] 12/26/2019 10:40 Patient: [...] pain, pt also voicescramps in her hands).Treatment ON SITE SERVICES SPECIALIST:None.SEPSIS SCREEN: SIRS Screen negative. Sepsis Screen negative. [...] inches Per Patient. BMI: 22.3. --10:41 12/26/19 Benrard Patel RN.MedicationsPepcid Oral. Promethazine HCl Oral (Tablet [...] to Coronavirus. 2 Clinical Report - Nurses [facility] Emergency Department [address] [place] [address] Phone #: ext- [phone] 12/26/2019 10:40 Patient: [...] Quiles R.N. 3 Clinical Report - Nurses [facility] Emergency Department [address] [place] [address] Phone #: ext- [phone] 12/26/2019 10:40 Patient: NATALIYA BEASLEY Sex: F [...] 5 rights.Information reviewed with patient. Verbalizes understanding. --12:15 12/26/19 Zakiya Quiles R.N.12:15 12/26/2019 Started 10 meq of KCL IVPB [...] 5 rights. Informationreviewed with patient. Verbalizes understanding. --12:18 12/26/19 Zakiya Quiles R.N.The patient is calm and resting quietly. Overall patient status is the same- she states feels the same.--12:20 12/26/19 Zakiya Quiles R.N.12:19 12/26/19. BP: 116/80. MAP: 92. HR: 79. RR: 18. O2 saturation: 99% on room air. Temp: 97.9 F.--12:20 12/26/19 Zakiya Quiles R.N.12:29 12/26/2019 Started 2 gm [...] infused: 1000. 4 Clinical Report - Nurses [facility] Emergency Department [address] [place] [address] Phone #: ext- [phone] 12/26/2019 10:40 Patient: [...] Quiles R.N. 5 Clinical Report - Nurses [facility] Emergency Department [address] [place] [address] Phone #: ext- [phone] 12/26/2019 10:40 [id number] Sex: F : 1995 Age: 24yLocked/Released at 12/26/2019 16:39 by aZkiya Quiles R.N. Name Value Range Interpretation Code Description Data Michelle rce(s) Supporting Document(s) ID Date Data Source [id number] 12/26/2019 10:59:00 AM EDT [facility] 1 Clinical Report - Physicians/Mid Levels [facility] Emergency Department [address] [place] [address] Phone #: ext- [phone] 12/26/2019 10:40 Patient: NATALIYA BEASLEY Sex: F [...] Antibiotics. 2 Clinical Report - Physicians/Mid Levels [facility] Emergency Department [address] [place] [address] Phone #: ext- [phone] 12/26/2019 10:40 Patient: NATALIYA BEASLEY Sex: F [...] (3.6 - 5.0) CALL/ READ BACK NIK JEWEL CORNER BRUSHING MACHINE OPERATOR BY: LINDA DATE/TIME [id number] CHLORIDE 86 L mEq/L (98 - 107) [...] 1.3) 3 Clinical Report - Physicians/Mid Levels [facility] Emergency Department [address] [place] [address] Phone #: ext- [phone] 12/26/2019 10:40 Patient: NATALIYA BEASLEY Sex: F : 1995 Age: 24y ALKALINE PHOS 63 U/L (38 - 126) SGOT/AST 16 U/L (5 - 40) SGPT/ALT 16 U/L (7 - 56) ANION GAP 19.0 H mmol/L (8.0 - 16.0) AGE 24 yrs NON- AA GFR >60 mL/min AFR AMER GFR >60 mL/min Male GFR Interprentation 20-49 yrs >60 mL/min Yewiuw79-55 yrs >56 mL/min Normal 60-69 yrs >49 mL/min Normal 70-79yrs>42 mL/min Normal 80 and above >35 mL/min Normal Female GFRInterpretation 20-39 yrs >60 mL/min Normal 40-49 yrs >58 mL/minNormal 50-59 yrs >51 mL/min Normal 60-69 yrs >45 mL/min Jtoexq55-16 yrs >39 mL/min Normal 80 and above [...] CALL/ READ BACK CALLED TO RUSTY BY: [facility] DATE/TIME 12/26/19 @ 66973 4 Clinic al Report - Physicians/Mid Levels [facility] Emergency Department [address] [place] [address] Phone #: ext- [phone] 12/26/2019 10:40 Patient: [...] Male GFR Interprentation 20-49 yrs >60 mL/min Rlauac65-23 yrs >56 mL/min Normal 60-69 yrs >49 mL/min Normal 70-79yrs>42 mL/min Normal 80 and above >35 mL/min Normal Female GFRInterpretation 20-39 yrs >60 mL/min Normal 40-49 yrs >58 mL/minNormal 50-59 yrs >51 mL/min Normal 60-69 yrs >45 mL/min Qjzbbg08- 79 yrs >39 mL/min Normal 80 and above >32 mL/min NormalUrinalysis: (ANGELY: 12/26/2019 13:00) ( [facility] 12/26/2019 14:21) Final results Test [...] NoneBeta-HCG, Qual Urine: (ANGELY: 12/26/2019 13:00) ( [facility] 12/26/2019 14:22) Final results Test Result Flag Units (Reference) HCG URINE QUAL NEGATIVE (NORMAL: NEGAT HCG URINE QL REENTER NEGATIVE (NORMAL: NEGAT { KIT LOT # [id number] ){ KIT EXP DATE02.27.21 ){ PROCEDURAL CONTROL VALID) 5 Clinical Report - Physicians/Mid Levels [facility] Emergency Department [address] [place] [address] Phone #: ext- [phone] 12/26/2019 10:40 Patient: NATALIYA BEASLEY Sex: F : 1995 Age: 24y Troponin-T: (ANGELY: 12/26/2019 11:10) ( [facility] 12/26/2019 11:48) Final results Test Result Flag Units (Reference) TROPONIN T <0.01 NG/ML (0.00 - 0.10) TROPONIN T0.1 ng/ml Recommended as the clinical threshold value forTroponin T. Magnesium: (ANGELY: 12/26/2019 11:10) ( [facility] 12/26/2019 12:04) Final results Test Result Flag Units (Reference) MAGNESIUM 1.5 L MG/DL (1.7 - 2.2) EKG: (ANGELY: 12/26/2019 11:03) ( [facility] 12/26/2019 14:34) In Progress.PROGRESS AND PROCEDURESCourse of Care: 15:Dec 26 2019. Evaluation after observation and results of tests back. (Sherrie CASIANO MACHINE SHOP REPAIR TECHNICIAN and she will admit pt to obs to correct K. Pt is agreeable with dx and tx plan.). Patient counseled in person regarding the patient's stable but serious condition, test results, diagnosis and need for admission. Patient agrees with plan of care. 15:Dec 26 2019. Disposition: Observation in the Acute Inpatient Unit, Monitored. 15:Dec 26 2019 Sarah CASIANO MACHINE SHOP REPAIR TECHNICIAN. UTI (catheter associated) was not present prior [...] rce(s) Supporting Document(s) ID Date Data Source [id number] 12/26/2019 04:05:00 PM EDT [facility] Name Value Range Interpretation Code Description Data Michelle rce(s) Supporting Document(s) BASIC METABOLIC PANEL [facility] BASIC METABOLIC PANEL Sodium [Moles/volume] in Serum or Plasma 134 mEq/L 134 - 153 [facility] Potassium [Moles/volume] in Serum or Plasma 3.0 mEq/L 3.6 - 5.0 L [facility] Chloride [Moles/volume] in Serum or Plasma 88 mEq/L 98 - 107 L [facility] Carbon dioxide, total [Moles/volume] in Serum or Plasma 29 MEQ/L 22 - 30 [facility] Glucose [Mass/volume] in Serum or Plasma 106 MG/DL 65 - 110 [facility] BUN 14 MG/DL 7 - 21 [facility] al Creatinine [Mass/volume] in Serum or Plasma 0.8 MG/DL 0.7 - 1.5 [facility] BUN/CREAT 18 8 - 27 [facility] al Calcium [Mass/volume] in Serum or Plasma 9.7 MG/DL 8.4 - 10.2 [facility] Anion gap 3 in Serum or Plasma 17.0 mmol/L 8.0 - 16.0 H [facility] AGE 24 yrs [facility] al AFR AMER GFR >60 mL/min [facility] Ho spital NON-AA GFR >60 mL/min [facility] ital Male GFR Inter prentation 20-49 [...] >32 mL/min Normal ID Date Data Source [id number] 12/26/2019 02:24:00 PM EDT [facility] Name Value Range Interpretation Code Description Data Michelle rce(s) Supporting Document(s) COMPREHENSIVE METABOLIC PANEL [facility] COMPREHENSIVE METABOLIC PANEL Sodium [Moles/volume] in Serum or Plasma 132 mEq/L 134 - 153 L [facility] Potassium [Moles/volume] in Serum or Plasma 2.9 mEq/L 3.6 - 5.0 LL [facility] CALL/ READ BACK NIK JEWEL CORNER BRUSHING MACHINE OPERATOR [facility] BY: LINDA [facility]/TIME [id number] [facility] Chloride [Moles/volume] in Serum or Plasma 86 mEq/L 98 - 107 L [facility] Carbon dioxide, total [Moles/volume] in Serum or Plasma 27 MEQ/L 22 - 30 [facility] Glucose [Mass/volume] in Serum or Plasma 118 MG/DL 65 - 110 H [facility] BUN 15 MG/DL 7 - 21 [facility] al Creatinine [Mass/volume] in Serum or Plasma 0.7 MG/DL 0.7 - 1.5 [facility] BUN/CREAT 21 8 - 27 [facility] al Protein [Mass/volume] in Serum or Plasma 7.7 G/DL 6.3 - 8.2 [facility] Albumin [Mass/volume] in Serum or Plasma 5.0 G/DL 3.9 - 5.0 [facility] Globulin [Mass/volume] in Serum by calculation 2.7 GM/DL 2.4 - 3.2 [facility] A/G RATIO 1.9 0.8 - 2.0 [facility] al Calcium [Mass/volume] in Serum or Plasma 10.2 MG/DL 8.4 - 10.2 [facility] Bilirubin.total [Mass/volume] in Serum or Plasma 1.4 MG/DL 0.2 - 1.3 H [facility] Alkaline phosphatase [Enzymatic activity/volume] in Serum or Plasma 63 U/L 38 - 126 [facility] Aspartate aminotransferase [Enzymatic activity/volume] in Serum or Plasma 16 U/L 5 - 40 [facility] Alanine aminotransferase [Enzymatic activity/volume] in Seru m or Plasma 16 U/L 7 - 56 [facility] Anion gap 3 in Serum or Plasma 19.0 mmol/L 8.0 - 16.0 H [facility] [address] [facility] GFR >60 mL/min [facility] ital AFR AMER GFR >60 mL/min [facility] Male GFR In [...] >32 mL/min Normal ID Date Data Source [id number] 12/26/2019 03:36:00 PM EDT [facility] Name Value Range Interpretation Code Description Data Michelle rce(s) Supporting Document(s) URINALYSIS [facility] URINALYSIS SOURCE R [facility] COLOR yellow NORMAL: Yellow [facility] CLARITY Clear NORMAL: Clear [facility] Specific gravity of Urine by Test strip 1.010 1.001 - 1.030 [facility] pH 8 5 - 9 [facility] al Glucose [Mass/volume] in Urine by Test strip NORM NORMAL: Negat [facility] Bilirubin.total [Presence] in Urine by Test strip NEG NORMAL: Negative [facility] Ketones [Presence] in Urine by Test strip 15 NORMAL: Negative A [facility] Protein [Mass/volume] in Urine by Test strip 15 NORMAL: Negat [facility] Nitrite [Presence] in Urine by Test strip NEG NORMAL: Negative [facility] BLOOD NEG NORMAL: Negative [facility] Leukocyte esterase [Presence] in Urine by Test strip 25 DAYLIN L: Negative [facility] Urobilinogen [Mass/volume] in Urine by Test strip 1 less tito n 1.0 mg/dL [facility] MICROSCOPIC See Below [facility] ital WBC 3 - 5 NORMAL: NONE SEEN [facility] Erythrocytes [#/volume] in Urine by Test strip 0 - 1 NORMAL: NON E SEEN [facility] EPITHELIAL MANY NORMAL: NONE SEEN A [facility] Bacteria [Presence] in Urine sediment by Light microscopy Tr laura NORMAL: NONE SEEN [facility] Mucus [Presence] in Urine sediment by Light microscopy 2+ NOR MAL: NONE SEEN A [facility] Casts [#/area] in Urine sediment by Microscopy low power field See Be low [facility] Hyaline casts [#/area] in Urine sediment by Microscopy low p ower field 1-3 NORMAL: None Seen A [facility] ID Date Data Source [id number] 12/26/2019 02:21:00 PM EDT [facility] Name Value Range Interpretation Code Description Data Michelle rce(s) Supporting Document(s) HCG URINE QUAL NEGATIVE NORMAL: NEGATIVE [facility] HCG URINE QL REENTER NEGATIVE NORMAL: NEGATIVE [facility] { KIT LOT # [id number] ){ KIT EXP DATE 02.27.21 ){ PROCEDURAL CONTROL VALID ) ID Date Data Source [id number] 12/26/2019 05:19:00 PM EDT [facility] Name Value Range Interpretation Code Description Data Michelle rce(s) Supporting Document(s) Folate [Mass/volume] in Serum or Plasma 14.6 NG/ML 5.0 - 27.2 [facility] ID Date Data Source [id number] 12/26/2019 12:03:00 PM T [facility] Name Value Range Interpretation Code Description Data Michelle rce(s) Supporting Document(s) Magnesium [Mass/volume] in Serum or Plasma 1.5 MG/DL 1.7 - 2.2 L [facility] ID Date Data Source [id number] 12/26/2019 12:01:00 PM EDT [facility] Name Value Range Interpretation Code Description Data Michelle rce(s) Supporting Document(s) COMPREHENSIVE METABOLIC PANEL [facility] COMPREHENSIVE METABOLIC PANEL Sodium [Moles/volume] in Serum or Plasma 134 mEq/L 134 - 153 [facility] Potassium [Moles/volume] in Serum or Plasma 2.9 mEq/L 3.6 - 5.0 LL [facility] CALL/ READ BACK CALLED TO [facility] BY: OSMANI [facility] DATE/TIME 12/26/19 @ 92249 [facility] Chloride [Moles/volume] in Serum or Plasma 82 mEq/L 98 - 107 L [facility] Carbon dioxide, total [Moles/volume] in Serum or Plasma 28 MEQ/L 22 - 30 [facility] Glucose [Mass/volume] in Serum or Plasma 120 MG/DL 65 - 110 H [facility] BUN 19 MG/DL 7 - 21 [facility] al Creatinine [Mass/volume] in Serum or Plasma 0.9 MG/DL 0.7 - 1.5 [facility] BUN/CREAT 21 8 - 27 [facility] al Protein [Mass/volume] in Serum or Plasma 8.1 G/DL 6.3 - 8.2 [facility] Albumin [Mass/volume] in Serum or Plasma 5.5 G/DL 3.9 - 5.0 H [facility] Globulin [Mass/volume] in Serum by calculation 2.6 GM/DL 2.4 - 3.2 [facility] A/G RATIO 2.1 0.8 - 2.0 H [facility] Calcium [Mass/volume] in Serum or Plasma 10.6 MG/DL 8.4 - 10.2 H [facility] Bilirubin.total [Mass/volume] in Serum or Plasma 1.6 MG/DL 0.2 - 1.3 H [facility] Alkaline phosphatase [Enzymatic activity/volume] in Serum or Plasma 68 U/L 38 - 126 [facility] Aspartate aminotransferase [Enzymatic activity/volume] in Serum or Plasma 19 U/L 5 - 40 [facility] Alanine aminotransferase [Enzymatic activity/volume] in Seru m or Plasma 19 U/L 7 - 56 [facility] Anion gap 3 in Serum or Plasma 24.0 mmol/L 8.0 - 16.0 H [facility] AGE 24 yrs [facility] al NON-AA GFR >60 mL/min [facility] ital AFR AMER GFR >60 mL/min [facility] Male GFR In [...] >32 mL/min Normal ID Date Data Source [id number] 12/26/2019 11:49:00 AM EDT [facility] Name Value Range Interpretation Code Description Data Michelle rce(s) Supporting Document(s) CBC W/AUTOMATED DIFF [facility] COMPLETE BLOOD COUNT Leukocytes [#/volume] in Blood by Automated count 14.9 10^3/uL 4.2 - 11.0 H [facility] Erythrocytes [#/volume] in Blood by Automated count 5.08 10^6/uL 4. 20 - 5.40 [facility] Hemoglobin [Mass/volume] in Blood 15.8 g/dL 12.0 - 16.0 [facility] Hematocrit [Volume Fraction] of Blood by Automated count 45.4 % 3 7.0 - 47.0 [facility] Erythrocyte mean corpuscular volume [Entitic volume] by Auto mated count 89.4 fL 81.0 - 101 [facility] Erythrocyte mean corpuscular hemoglobin [Entitic mass] by Automated count 31.1 pg 27.0 - 34.0 [facility] Erythrocyte mean corpuscular hemoglobin concentration [Mass/volume] by Automated count 34.8 g/dL 31.0 - 36.0 [facility] Erythrocyte distribution width [Ratio] by Automated count 12.2 % 11.5 - 14.5 [facility] Platelets [#/volume] in Blood by Automated count 392 10^3/uL 150 - 45 0 [facility] Platelet mean volume [Entitic volume] in Blood by Automated count 9.8 fL 7.4 - 10.4 [facility] Neutrophils/100 leukocytes in Blood by Automated count 81.1 % 37. 0 - 80.0 H [facility] Lymphocytes/100 leukocytes in Blood by Manual count 10.7 % 25.0 - 40.0 L [facility] Monocytes/100 leukocytes in Blood by Automated count 7.6 % 3.0 - 8.0 [facility] Eosinophils/100 leukocytes in Blood by Automated count 0.1 % 0.0 - 7.0 [facility] Basophils/100 leukocytes in Blood by Automated count 0.1 % 0.0 - 2.5 [facility] %IG 0.4 % 0.0 - 0.0 H [facility] al %NRBC 0.0 % 0.0 - 0.0 [facility] al Neutrophils [#/volume] in Blood by Automated count 12.10 10^3/uL 2. 00 - 6.90 H [facility] Lymphocytes [#/volume] in Blood by Automated count 1.59 10^3/uL 0.60 - 3.40 [facility] Monocytes [#/volume] in Blood by Automated count 1.13 10^3/uL 0.00 - 0.90 H [facility] Eosinophils [#/volume] in Blood by Automated count 0.01 10^3/uL 0.00 - 0.70 [facility] Basophils [#/volume] in Blood by Automated count 0.02 10^3/uL 0.00 - 0.20 [facility] #IG 0.06 10^3/uL 0.00 - 0.10 [facility]sp[facility] #NRBC 0.00 10^3/uL 0.00 - 0.00 [facility] ospital MANUAL DIFF SEE BELOW [facility] Segmented neutrophils/100 leukocytes in Blood by Manual count 76 % 37 - 80 [facility] %LYMPH 16 % 25 - 40 L [facility] al %MONO 8 % 3 - 8 [facility] al RBC MORPH MORPH IS NORMAL [facility] ID Date Data Source [id number] 12/26/2019 11:48:00 AM EDT [facility] Name Value Range Interpretation Code Description Data Michelle rce(s) Supporting Document(s) TROPONIN T <0.01 NG/ML 0.00 - 0.10 [facility] ospital TROPONIN T0.1 ng/ml Recommended as the c linical threshold value forTroponin T. ID Date Data Source [id number] 12/12/2019 12:03:[address] [facility] [address] [place] [address] PHONE: [phone] FAX: [phone] Name .................. : RITTER NATALIYA Martinez Acct Number.................. : [id number] ROOM. ................. : 100 MR Number ................... : [id number] Stay type ............. : O/P Discharge Date......... ... : Admit Date ......... : 12/09/19 Admit Phys .................... : MULLER HARD Date of ....... : 1995 Family Phys ................... : COLLAZO Hundo Phone .......... ........ : [phone] Age ................................ : 24 Film# .................. .:[id number] Sex ................................. : F Unsigned transcriptions are preliminary reports and do not represent a medical or legal document HEPATIC [id number] COMPLETE:12/09/19 14:38 [facility] [address]89 Reason(s): Nausea w Vomiting HEPATIC ULTRASOUND: COMPARISON: [...] 12/09/19 23:21, Dictation Date: Copy for: LADI PARDO via fax Copy for: EMERGENCY DEPT via modem Copy for: 710 MED REC DISCHARGED Page 1 of 1 Name Value Range Interpretation Code Description Data Michelle rce(s) Supporting Document(s) ID Date Data Source [id number] 12/12/2019 10:57:[place] [address] PHONE: [phone] FAX: [phone] Name .................. : RITTER WHITLOCKELNiki Juan Acct Number.................. : [id number] ROOM. ................. : 100-1 MR Number ................... : [id number] Stay type ............. : O/P Discharge Date......... ... : Admit Date ......... : 12/09/19 Admit Phys .................... : RENZO HAM Date of ....... : 1995 Family Phys ................... : COLLAZO SCOT Phone .................. : [phone] Age ................................ : 24 Film# .................. .:[id number] Sex ................................. : F Unsigned transcriptions are preliminary reports and do not represent a medical or legal document CT ABD & PELVIS W/ IV ONLY [id number] COMPLETE:12/09/19 16:05 RLB [id number] Reason(s): Abdominal Pain CT OF THE ABDOMEN [...] lacey: No adenopathy. Page 1 of 2 [facility] [address] [place] [address] PHONE: [phone] FAX: [phone] Name .................. : RITTER NATALIYA Martinez Acct Number.................. : [id number] ROOM. ................. : [address] [place] [address] Number ................... : [id number] Stay type ............. : O/P Discharge Date......... ... : Admit Date ......... : 12/09/19 Admit Phys .................... : MULLER HARD Date of ....... : 1995 Family Phys ................... : COLLAZO MARIBEL Phone .................. : [phone] Age ................................ : 24 Film# .................. .:[id number] Sex ................................. : F Unsigned transcriptions are preliminary reports and do not represent a medical or legal document CT ABD & PELVIS W/ IV ONLY [id number] COMPLETE:12/09/19 16:05 RLB [id number] Reason(s): Abdominal Pain Vessels: Normal abdominal aorta [...] rce(s) Supporting Document(s) ID Date Data Source [id number] 12/12/2019 10:55:[address] [facility] [address] [place] [address] PHONE: [phone] FAX: [phone] Name .................. : RITTER NATALIYA Martinez Acct Number.................. : [id number] ROOM. ................. : 100-1 MR Number ................... : [id number] Stay type ............. : O/P Discharge Date......... ... : Admit Date ......... : 12/09/19 Admit Phys .................... : MULLER HARD Date of ....... : 1995 Family Phys ................... : COLLAZO SCOT Phone .......... ........ : [phone] Age ................................ : 24 Film# .................. .:[id number] Sex ................................. : F Unsigned transcriptions are preliminary reports and do not represent a medical or legal document CHEST 2 VIEWS [id number] COMPLETE:12/09/19 16:01 ARS [id number] Reason(s): upper abd pain CHEST X-RAY: PA AND LATERAL VIEWS HISTORY: Upper abdominal pain. COMPARISON: None. FINDINGS: Normal cardiomediastinal silhouette and pulmonary vessels. Clear lungs without pleural effusion. No acute osseous abnormality. S-shaped thoracolumbar scoliosis. IMPRESSION: No active disease is seen in the chest. Electronically Reviewed and Signed By Norbert Al MD , 12/12/19 10:55, APM Transcribe Initials: DZ , Transcribe Date: 12/09/19 21:25, Dictation Date: Copy for: LADI PARDO via fax Copy for: EMERGENCY DEPT via modem Copy for: 710 MED REC DISCHARGED Page 1 of 1 Name Value Range Interpretation Code Description Data Michelle rce(s) Supporting Document(s) ID Date Data Source [id number] 12/11/2019 03:11:00 PM EDT [facility] Name Value Range Interpretation Code Description Data Michelle rce(s) Supporting Document(s) Potassium [Moles/volume] in Serum or Plasma 3.5 mEq/L 3.6 - 5.0 L [facility] ID Date Data Source [id number] 12/11/2019 11:52:00 AM EDT [facility] Value Range Interpretation Code Description Data Michelle rce(s) Supporting Document(s) Potassium [Moles/volume] in Serum or Plasma 3.3 mEq/L 3.6 - 5.0 L [facility] ID Date Data Source [id number] 12/11/2019 10:11:00 AM EDT [facility] Name Value Range Interpretation Code Description Data Michelle rce(s) Supporting Document(s) Folate [Mass/volume] in Serum or Plasma 11.2 NG/ML 5.0 - 27.2 [facility] ID Date Data Source [id number] 12/11/2019 08:22:00 AM EDT [facility] Value Range Interpretation Code Description Data Michelle rce(s) Supporting Document(s) Magnesium [Mass/volume] in Serum or Plasma 1.7 MG/DL 1.7 - 2.2 [facility] ID Date Data Source [id number] 12/11/2019 07:46:00 AM EDT [facility] Name Value Range Interpretation Code Description Data Michelle rce(s) Supporting Document(s) CBC W/AUTOMATED DIFF [facility] COMPLETE BLOOD COUNT Leukocytes [#/volume] in Blood by Automated count 6.2 10^3/uL 4.2 - 1 1.0 [facility] Erythrocytes [#/volume] in Blood by Automated count 3.94 10^6/uL 4. 20 - 5.40 L [facility] Hemoglobin [Mass/volume] in Blood 12.3 g/dL 12.0 - 16.0 [facility] Hematocrit [Volume Fraction] of Blood by Automated count 36.9 % 3 7.0 - 47.0 L [facility] Erythrocyte mean corpuscular volume [Entitic volume] by Auto mated count 93.7 fL 81.0 - 101 [facility] Erythrocyte mean corpuscular hemoglobin [Entitic mass] by Automated count 31.2 pg 27.0 - 34.0 [facility] Erythrocyte mean corpuscular hemoglobin concentration [Mass/volume] by Automated count 33.3 g/dL 31.0 - 36.0 [facility] Erythrocyte distribution width [Ratio] by Automated count 12.4 % 11.5 - 14.5 [facility] Platelets [#/volume] in Blood by Automated count 178 10^3/uL 150 - 45 0 [facility] Platelet mean volume [Entitic volume] in Blood by Automated count 10.0 fL 7.4 - 10.4 [facility] Neutrophils/100 leukocytes in Blood by Automated count 54.4 % 37. 0 - 80.0 [facility] Lymphocytes/100 leukocytes in Blood by Manual count 38.0 % 25.0 - 40.0 [facility] Monocytes/100 leukocytes in Blood by Automated count 6.0 % 3.0 - 8.0 [facility] Eosinophils/100 leukocytes in Blood by Automated count 1.0 % 0.0 - 7.0 [facility] Basophils/100 leukocytes in Blood by Automated count 0.3 % 0.0 - 2.5 [facility] %IG 0.3 % 0.0 - 0.0 [facility] al %NRBC 0.0 % 0.0 - 0.0 [facility] al Neutrophils [#/volume] in Blood by Automated count 3.36 10^3/uL 2.00 - 6.90 [facility] Lymphocytes [#/volume] in Blood by Automated count 2.35 10^3/uL 0.60 - 3.40 [facility] Monocytes [#/volume] in Blood by Automated count 0.37 10^3/uL 0.00 - 0.90 [facility] Eosinophils [#/volume] in Blood by Automated count 0.06 10^3/uL 0.00 - 0.70 [facility] Basophils [#/volume] in Blood by Automated count 0.02 10^3/uL 0.00 - 0.20 [facility] #IG 0.02 10^3/uL 0.00 - 0.10 [facility] #NRBC 0.00 10^3/uL 0.00 - 0.00 [facility] MANUAL DIFF NOT INDICATED [facility] RBC MORPH NOT INDICATED [facility] spital ID Date Data Source [id number] 12/11/2019 07:44:00 AM EDT [facility] Name Value Range Interpretation Code Description Data Michelle rce(s) Supporting Document(s) COMPREHENSIVE METABOLIC PANEL [facility] COMPREHENSIVE METABOLIC PANEL Sodium [Moles/volume] in Serum or Plasma 140 mEq/L 134 - 153 [facility] Potassium [Moles/volume] in Serum or Plasma 3.0 mEq/L 3.6 - 5.0 L [facility] Chloride [Moles/volume] in Serum or Plasma 105 mEq/L 98 - 107 [facility] Carbon dioxide, total [Moles/volume] in Serum or Plasma 26 MEQ/L 22 - 30 [facility] Glucose [Mass/volume] in Serum or Plasma 89 MG/DL 65 - 110 [facility] BUN 6 MG/DL 7 - 21 L [facility] Creatinine [Mass/volume] in Serum or Plasma 0.4 MG/DL 0.7 - 1.5 L [facility] BUN/CREAT 15 8 - 27 [facility] al Protein [Mass/volume] in Serum or Plasma 5.9 G/DL 6.3 - 8.2 L [facility] Albumin [Mass/volume] in Serum or Plasma 4.0 G/DL 3.9 - 5.0 [facility] Globulin [Mass/volume] in Serum by calculation 1.9 GM/DL 2.4 - 3.2 L [facility] A/G RATIO 2.1 0.8 - 2.0 H [facility] Calcium [Mass/volume] in Serum or Plasma 8.8 MG/DL 8.4 - 10.2 [facility] Bilirubin.total [Mass/volume] in Serum or Plasma 1.1 MG/DL 0.2 - 1.3 [facility] Alkaline phosphatase [Enzymatic activity/volume] in Serum or Plasma 52 U/L 38 - 126 [facility] Aspartate aminotransferase [Enzymatic activity/volume] in Serum or Plasma 31 U/L 5 - 40 [facility] Alanine aminotransferase [Enzymatic activity/volume] in Seru m or Plasma 48 U/L 7 - 56 [facility] Anion gap 3 in Serum or Plasma 9.0 mmol/L 8.0 - 16.0 [facility] AGE 24 yrs [facility] Hospit al NON-AA GFR >60 mL/min [facility] Hosp ital AFR AMER GFR >60 mL/min [facility] Ho spital Male GFR In [...] >32 mL/min Normal ID Date Data Source [id number] 12/09/2019 12:55:00 PM EDT [facility] 1 OrderSheet [facility] Emergency Department [address] [place] [address] Phone #: ext- [phone] 12/09/2019 12:30 Patient: NATALIYA BEASLEY Sex: F : 1995 Age: 24yWEIGHT:58.9 kg (S) HEIGHT:62 inches (S) BMI:23.8ALLERGIES: None, Sulfa AntibioticsCHIEF COMPLAINT: vomitingDIAGNOSIS: HypokalemiaLAB ORDERSOrder Description Priority Entered Acknowledged InitialedUrinalysis (Clean STAT 13:12/09/2019 13:06 Sia Kemp) Alexia Kemp R.N.; R.N. Verbal order per; Imtiaz CRAIGBC w Diff STAT 13:12/09/2019 14:04 Bernard Patel RN P.A.-C;CMP STAT 13:12/09/2019 14:04 Bernard Patel RN P.A.-C;Lipase STAT 13:12/09/2019 14:04 eBrnard Patel RN P.A.-C;PT/INR STAT 13:12/09/2019 14:04 Bernard Patel RN P.A.- C;Magnesium STAT 13:12/09/2019 14:04 Bernard Patel RN P.A.-C;HCG Serum Qual STAT 13:12/09/2019 14:04 Bernard Patel RN P.A.-C;Troponin-T STAT 13:12/09/2019 14:04 Bernard Patel RN P.A.-C;Urine Drug Screen STAT 13:12/09/2019 13:42 Imtiaz Alvarez R.N. P.A.- C;Monospot STAT 13:55 12/09/2019 14:04 Bernard Patel RN 2 OrderSheet [facility] Emergency Department [address] [place] [address] Phone #: ext- [phone] 12/09/2019 12:30 -------- Patient: NATALIYA BEASLEY Sex: F : 1995 Age: 24y P.A.-C;DIAGNOSTIC STUDY ORDERSOrder Description Priority Entered Acknowledged InitialedUS Liver STAT 13:12/09/2019 14:04 Bernard(Oxygen?(No)) Imtiaz Patel RN P.A.-C; Reason for Study: Nausea w Vomiting, RUQ PainCT Abd PEL W/ IV STAT 15:02 12/09/2019 15:46 PeterContrast Only Imtiaz Patel RN(Oxygen?(No)) P.A.-C;(IV?(Yes)) Reason for Study: Abdominal Pain, Nausea, VomitingChest 2 View STAT 15:02 12/09/2019 15:46 Peter(Oxygen?(No)) Imtiaz Patel RN P.A.-C; Reason for Study: [...] Petermeq/100mL Imtiaz Patel RN P.A.-C; 3 OrderSheet [facility] Emergency Department [address] [place] [address] Phone #: ext- [phone] 12/09/2019 12:30 Patient: NATALIYA BEASLEY Sex: F : 1995 Age: 24yBenadryl 25 mg IVP 15:33 12/09/2019 15:39 Ponce,X1 dose: 25 mg Imtiaz Galvan R.N.(NOW x1) P.A.-C;GENERAL ORDERSOrder Description Priority Entered Acknowledged InitialedAccucheck 13:12/09/2019 14:22 Bernard Patel RN P.A.-C;NPO 13:12/09/2019 14:04 Bernard Patel RN P.A.-C;Saline Lock 13:12/09/2019 14:04 Bernard Patel RN P.A.-C;EKG 13:12/09/2019 14:04 Bernard Patel RN P.A.-C;Personal Coach 13:12/09/2019 14:04 Bernard(continuous) Imtiaz Patel RN P.A.-C;Pulse oximeter 13:12/09/2019 14:04 Bernard(Continuous) Imtiaz Patel RN P.A.-C;[Electronically signed by Bernard Patel RN (17:12/09/2019)][Electronically signed by Imtiaz EspañaASveta-Lester (11:12/10/2019)][Electronically locked by Bernard Patel RN (17:12/09/2019)] Name Value Range Interpretation Code Description Data Michelle rce(s) Supporting Document(s) ID Date Data Source [id number] 12/09/2019 12:55:00 PM EDT [facility] 1 Medication Reconciliation Report [facility] Emergency Department [address] [place] [address] Phone #: ext- [phone] 12/09/2019 12:30 Patient: [...] rce(s) Supporting Document(s) ID Date Data Source [id number] 12/09/2019 12:55:00 PM EDT [facility] 1 Medication Administration Record [facility] Emergency Department [address] [place] [address] Phone #: ext- [phone] 12/09/2019 12:30 Patient: NATALIYA BEASLEY Sex: F : 1995 Age: 24yWeight: 58.9 kgHeight/Length: 62 inBMI: 23.8ALLERGIES: None, Sulfa Antibiotics Date/Time Medication Administered Medication OrderedStart IV NS IV NS : Bolus 500 mL, then 14841:06 12/09/2019 Dose: IV Fluids mL/Lissette Patel RN Rate: 100 mL/hr over 5 hour(s)---- Bolus: 500 mL over 20 minute(s)Stop Dispensed: 1000 mL bag17:02 12/09/2019 Site: #1 right upper armDylon Martinez PHENERGAN [IVPB] Phenergan 25 mg in 50 [...] 100 mL bag14:56 12/09/2019 Site: #1 right [facility] Dylon Macias PEPCID [IVPB] Pepcid IVPB 20 mg/50mL (NOW14:58 12/09/2019 Dose: 20 mg IVPB x1, Infuse over 30 minutes.)Bernard Patel RN Rate: 100 mL/hr over 30 minute(s)---- Dispensed: 50 mL bagStop Site: #1 right upper arm15:41 12/09/2019Jorgito Martinez KCL LIQUID PO KCl Liquid PO 40 meq15:01 12/09/2019 Dose: 40 meq Syrup/Liquid Dylon Kaplan KCL [IVPB] KCl IVPB 10 meq/687zC17:02 12/09/2019 Dose: 10 meq IVCarlyle Patel RN Rate: 100 mL/hr over 1 hour(s)---- Dispensed: 100 mL bagStop Site: #1 right upper arm17:02 12/09/2019Jorgito Martinez BENADRYL [IVP] (DIPHENHYDRAMINE Benadryl 25 mg IVP X1 dose: 2515:25 12/09/2019 HCL) mg (NOW x1)Mandy Alvarez R.N. Dose: 25 mg IVP In: NS 10 mL Site: #1 right upper arm 2 Medication Administration Record [facility] Emergency Department [address] [place] [address] Phone #: ext- [phone] 12/09/2019 12:30 Patient: NATALIYA BEASLEY Sex: F : 1995 Age: 24y Name Value Range Interpretation Code Description Data Michelle rce(s) Supporting Document(s) ID Date Data Source [id number] 12/09/2019 12:55:00 PM EDT [facility] 1 General Instructions [facility] Emergency Department [address] [place] [address] Phone #: ext- [phone] 12/09/2019 12:30 Patient: [...] or muscle cramps Dizziness 2 General Instructions [facility] Emergency Department [address] [place] [address] Phone #: ext- [phone] 12/09/2019 12:30 Patient: NATALIYA BEASLEY Sex: F : 1995 Age: 24yCall 911Call 911 if any of the following occur: Irregular heartbeat, extra beats, or very fast heart rate Loss of [facility] sciousness [phone] [employer] [address] [place] [address]. All rights reserved. This information is not intended as asubstitute for professional medical care. Always follow your healthcare professional's instructions. You have been given the following additional information: Hypokalemia(Electronically signed by Imtiaz España P.A.-C 12/10/2019 11:00) Name Value Range Interpretation Code Description Data Michelle rce(s) Supporting Document(s) ID Date Data Source [id number] 12/09/2019 12:55:00 PM EDT [facility] 1 Clinical Report - Nurses [facility] Emergency Department [address] [place] [address] Phone #: ext- [phone] 12/09/2019 12:30 Patient: NATALIYA BEASLEY Sex: F : 1995 Age: 24yTRIAGEArrived by private vehicle. Historian: patient. Accompanied by family. ( here on Thursday for vomitand it continues today).Acuity: LEVEL 3.Chief Complaint: ABDOMINAL PAIN, NAUSEA and VOMITING.Alert.Onset. (thursday). The patient has had nausea, vomiting and abdominal pain. The pain is described aslocated in the upper abdomen.Treatment ON SITE SERVICES SPECIALIST:None.SEPSIS SCREEN: SIRS Screen negative. Sepsis Screen negative. [...] --12:43 12/09/19 Alexia Kemp R.N.Hypokalemia. --13:54 12/09/19 Keturah Reed-CThe following entry was modified by Keturah Reed-C, 13:54 12/09/19Hypokalemia. --12:43 12/09/19 Alexia Kemp R.N..ADDITIONAL SURGERIES:Tube in ears. --12:41 12/09/19 Alexia Kemp R.N. 2 Clinical Report - Nurses [facility] Emergency Department [address] [place] [address] Phone #: ext- [phone] 12/09/2019 12:30 Patient: [...] Kemp R.N. 3 Clinical Report - Nurses [facility] Emergency Department [address] [place] [address] Phone #: ext- [phone] 12/09/2019 12:30 Patient: NATALIYA BEASLEY Sex: F : 1995 Age: 24y13:13 12/09/2019 Site #1 started via IV in the right upper arm with an 20g angiocath, with aseptictechnique and good blood return; one attempt. Saline lock flushed with 10 mL saline. --13:13 12/09/19DAISY Martinezatiscott transported to sonogram by wheelchair with histopath tech. --13:38 12/09/19 DAISY Martinezatiscott returned from sonogram by wheelchair with histopath tech. --13:58 12/09/19 Bernard Patel RN14:12/09/2019 Started bag #1 1000 mL IV Fluids [...] to the PA. --14:13 12/09/19Mando ibrahim ER Electrical Repairer( FSBS 107). --14:20 12/09/19 Bernard Patel RN14:12/09/2019 Started 40 mg of Protonix (Pantoprazole Sodium) IVPB in bag #1 100 mL; at 200 mL/hrover 30 minute(s) via site #1. via IV pump. Allergies verified and confirmed 5 rights. IV patency established.IV site checked: no pain, redness, or swelling. IV flushed thoroughly pre- and post-medicationadministration. Information reviewed with patient including reason for taking this medication. Verbalizesunderstanding. --14:24 12/09/19 Bernard Patel RN14:43 12/09/19. BP: 111/74. MAP: 86. HR: 65. RR: 16. O2 saturation: 100%. Pain level now: 09/24.--14:43 12/09/19 Bernard Patel RNCritical value relayed by [...] --14:56 12/09/19 4 Clinical Report - Nurses [facility] Emergency Department [address] [place] [address] Phone #: ext- [phone] 12/09/2019 12:30 Patient: [...] redness, or swelling. IV flushed thoroughly. --15:46 12/09/19Peter Patel, RNPatient transported to radiology and CT by wheelchair with histopath tech. --15:47 12/09/19 Bernard Patel RN16:02 12/09/2019 Started [...] EASTON Thomas 5 Clinical Report - Nurses [facility] Emergency Department [address] [place] [address] Phone #: ext- [phone] 12/09/2019 12:30 Patient: NATALIYA BEASLEY Sex: F : 1995 Age: 24y Patient returned from radiology and CT by wheelchair with histopath tech. --16:02 12/09/19 Bernard Patel RN 16:05 12/09/19. BP: 119/65. MAP: 83. HR: 64. RR: 16. O2 saturation: 99%. Pain level now: 5/10. --16:06 12/09/19 Bernard Patel RN 17:02 12/09/2019 [...] rce(s) Supporting Document(s) ID Date Data Source [id number] 12/09/2019 12:55:00 PM EDT [facility] 1 Clinical Report - Physicians/Mid Levels [facility] Emergency Department [address] [place] [address] Phone #: ext- [phone] 12/09/2019 12:30 Patient: [...] no improvement of N/V. Seen here in [facility] ER 2 days ago w ith [...] Oral. 2 Clinical Report - Physicians/Mid Levels [facility] Emergency Department [address] [place] [address] Phone #: ext- [phone] 12/09/2019 12:30 Patient: NATALIYA BEASLEY Sex: F : 1995 Age: 24y Allergies: None.SOCIAL HISTORYNever smoker. Occasional alcohol use. History of drug use: marijuana.ADDITIONAL NOTESThe nursing notes have been reviewed.PHYSICAL EXAMVital Signs: 12/09/2019 12:38 BP: 122/80. MAP: 94. HR: 93. RR: 18. O2 saturation: 100%. Temp: 98.1 F.Pain level now: 10. Have been reviewed. Oxygen saturation normal.Appearance: Alert. [...] X-RAYS, AND EKGEKG: Sinus rhythem w/ short KS; nonspecific ST abnormality; prolonged QT; abnormal ECG. Discussed and reviewed with/by attending. Compared previous on . Chest X-ray: (Mikaela hampton Alan - 12/09/2019 3:51:33 PM nad). The X- rays were interpreted by the radiologist. CT Abdomen - Pelvis: Mikaela hampton Alan - 12/09/2019 4:05:21 PM No acute disease. The study was interpreted by the radiologist. 3 Clinical Report - Physicians/Mid Levels [facility] Emergency Department [address] [place] [address] Phone #: ext- [phone] 12/09/2019 12:30 Patient: [...] IV? O2? Oxygen?(No) Room: [facility] w Diff: (ANGELY: 12/09/2019 14:15) ( [...] (3.6 - 5.0) CALL/ READ BACK CHAYA MCCORMACK ER BY: LINDA DATE/TIME [id number] Clinical Report - Physicians/Mid Levels [facility] Emergency Department [address] [place] [address] Phone #: ext- [phone] 12/09/2019 12:30 Patient: [...] Male GFR Interprentation 20-49 yrs >60 mL/min Slwjvl47-08 yrs >56 mL/min Normal 60-69 yrs >49 mL/min Normal 70-79yrs>42 mL/min Normal 80 and above >35 mL/min Normal Female GFRInterpretation 20-39 yrs >60 mL/min Normal 40-49 yrs >58 mL/minNormal 50-59 yrs >51 mL/min Normal 60-69 yrs >45 mL/min Zrxzug11- 79 yrs >39 mL/min Normal 80 and above >32 mL/min NormalLipase: (ANGELY: 12/09/2019 14:15) ( [facility] 12/09/2019 14:51) Final results Test Result Flag Units (Reference) LIPASE 12 L U/L (13 - 60)PT/INR: (ANGELY: 12/09/2019 14:15) ( [facility] [place] 12/09/2019 14:38) Final results Test Result Flag Units (Reference) PROTIME 12.4 SECONDS (11.0 - 15.5) INR 0.91 L (0.93 - 1.23) \\BLDo\\INR INTERPRETATION\\BLDx\\ Therapeutic range for Coumadin andrelated oral anticoagulants. -International Normalized Ratio (INR): 2.0 - 3.0 for VenousThrombosis, Pulmonary Embolus, Tissue heart valves, Acute NC, Atrial Fibrillation, Valvular heartdisease and recurrent Systemic Embolism. - International Normalized Ratio (INR): 2.5 - 3.5for Mechanical Prosthetic valve.Magnesium: (ANGELY: 12/09/2019 14:15) ( MsgRcvd 12/09/2019 14:51) Final results Test Result Flag Units (Reference) MAGNESIUM 1.6 L MG/DL (1.7 - 2.2)Beta-HCG, Qual Serum: (ANGELY: 12/09/2019 14:15) ( MsgRcvd 12/09/2019 14:43) Final results Test Result Flag Units (Reference) HCG SERUM QUAL NEGATIVE (NORMAL: NEGAT HCG SERUM QL REENTER NEGATIVE (NORMAL: NEGAT { KIT LOT # [id number] ){ KIT EXP DATE02.27.21 ){ PROCEDURAL CONTROL VALID)Troponin-T: (ANGELY: 12/09/2019 14:15) ( MsgRcvd 12/09/2019 14:51) Final results Test Result Flag Units (Reference) 5 Clinical Report - Physicians/Mid Levels [facility] Emergency Department [address] [place] [address] Phone #: ext- [phone] 12/09/2019 12:30 Patient: NATALIYA BEASLEY Sex: F : 1995 Age: 24y TROPONIN T <0.01 NG/ML (0.00 - 0.10) TROPONIN T0.1 ng/ml Recommended as the clinical threshold value forTroponin T. US Liver: (ANGELY: 12/09/2019 13:26) ( MsgRcvd 12/09/2019 14:38) In Progress US HEPATIC Reason(s): Nausea w Vomiting TRANSPORTATION: IV? O2? Oxygen?(No) Room: ED Urinalysis: (ANGELY: 12/09/2019 13:05) ( MsgRcvd 12/09/2019 13:35) Final results Test Result Flag [...] abd. Will obtain labs and imaigng for yuki lacey. Pendng results. 15:21 12/09/19. Reviewed and noted labs. Enter room and patient lying peacefully in bed in NAD. Patient stable. Denies any new issues, concerns, or complaints. Sts she feels better. 6 Clinical Report - Physicians/Mid Levels [facility] Emergency Department [address] [place] [address] Phone #: ext- [phone] 12/09/2019 12:30 Patient: NATALIYA BEASLEY Sex: F : 1995 Age: 24y Will call hosptialist to discuss admission. ? imaigng. Last image 3 wks ago. Pain. Low pottassium. Will image for furgabrielaer eval. Discuss with hosptialist. Agrees. Indicates to [...] rce(s) Supporting Document(s) ID Date Data Source [id number] 12/10/2019 08:37:00 AM EDT [facility] Name Value Range Interpretation Code Description Data Michelle rce(s) Supporting Document(s) CBC W/AUTOMATED DIFF [facility] COMPLETE BLOOD COUNT Leukocytes [#/volume] in Blood by Automated count 6.9 10^3/uL 4.2 - 1 1.0 [facility] Erythrocytes [#/volume] in Blood by Automated count 4.03 10^6/uL 4. 20 - 5.40 L [facility] Hemoglobin [Mass/volume] in Blood 12.5 g/dL 12.0 - 16.0 [facility] Hematocrit [Volume Fraction] of Blood by Automated count 37.7 % 3 7.0 - 47.0 [facility] Erythrocyte mean corpuscular volume [Entitic volume] by Auto mated count 93.5 fL 81.0 - 101 [facility] Erythrocyte mean corpuscular hemoglobin [Entitic mass] by Automated count 31.0 pg 27.0 - 34.0 [facility] Erythrocyte mean corpuscular hemoglobin concentration [Mass/volume] by Automated count 33.2 g/dL 31.0 - 36.0 [facility] Erythrocyte distribution width [Ratio] by Automated count 12.9 % 11.5 - 14.5 [facility] Platelets [#/volume] in Blood by Automated count 185 10^3/uL 150 - 45 0 [facility] Platelet mean volume [Entitic volume] in Blood by Automated count 10.1 fL 7.4 - 10.4 [facility] Neutrophils/100 leukocytes in Blood by Automated count 66.1 % 37. 0 - 80.0 [facility] Lymphocytes/100 leukocytes in Blood by Manual count 25.3 % 25.0 - 40.0 [facility] Monocytes/100 leukocytes in Blood by Automated count 7.4 % 3.0 - 8.0 [facility] Eosinophils/100 leukocytes in Blood by Automated count 0.3 % 0.0 - 7.0 [facility] Basophils/100 leukocytes in Blood by Automated count 0.6 % 0.0 - 2.5 [facility] %IG 0.3 % 0.0 - 0.[address] [facility] %NRBC 0.0 % 0.0 - 0.0 [facility] al Neutrophils [#/volume] in Blood by Automated count 4.55 10^3/uL 2.00 - 6.90 [facility] Lymphocytes [#/volume] in Blood by Automated count 1.74 10^3/uL 0.60 - 3.40 [facility] Monocytes [#/volume] in Blood by Automated count 0.51 10^3/uL 0.00 - 0.90 [facility] Eosinophils [#/volume] in Blood by Automated count 0.02 10^3/uL 0.00 - 0.70 [facility] Basophils [#/volume] in Blood by Automated count 0.04 10^3/uL 0.00 - 0.20 [facility] #IG 0.02 10^3/uL 0.00 - 0.10 [facility] H ospital #NRBC 0.00 10^3/uL 0.00 - 0.00 [facility] ospital MANUAL DIFF NOT INDICATED [facility] RBC MORPH NOT INDICATED [facility] Ho spital ID Date Data Source [id number] 12/10/2019 08:35:00 AM EDT [facility] Name Value Range Interpretation Code Description Data Michelle rce(s) Supporting Document(s) COMPREHENSIVE METABOLIC PANEL [facility] COMPREHENSIVE METABOLIC PANEL Sodium [Moles/volume] in Serum or Plasma 141 mEq/L 134 - 153 [facility] Potassium [Moles/volume] in Serum or Plasma 3.6 mEq/L 3.6 - 5.0 [facility] Chloride [Moles/volume] in Serum or Plasma 107 mEq/L 98 - 107 [facility] Carbon dioxide, total [Moles/volume] in Serum or Plasma 27 MEQ/L 22 - 30 [facility] Glucose [Mass/volume] in Serum or Plasma 89 MG/DL 65 - 110 [facility] BUN 10 MG/DL 7 - 21 [facility] al Creatinine [Mass/volume] in Serum or Plasma 0.4 MG/DL 0.7 - 1.5 L [facility] BUN/CREAT 25 8 - 27 [facility] al Protein [Mass/volume] in Serum or Plasma 6.2 G/DL 6.3 - 8.2 L [facility] Albumin [Mass/volume] in Serum or Plasma 4.3 G/DL 3.9 - 5.0 [facility] Globulin [Mass/volume] in Serum by calculation 1.9 GM/DL 2.4 - 3.2 L [facility] A/G RATIO 2.3 0.8 - 2.0 [facility] Calcium [Mass/volume] in Serum or Plasma 9.0 MG/DL 8.4 - 10.2 [facility] Bilirubin.total [Mass/volume] in Serum or Plasma 0.9 MG/DL 0.2 - 1.3 [facility] Alkaline phosphatase [Enzymatic activity/volume] in Serum or Plasma 52 U/L 38 - 126 [facility] Aspartate aminotransferase [Enzymatic activity/volume] in Serum or Plasma 27 U/L 5 - 40 [facility] Alanine aminotransferase [Enzymatic activity/volume] in Seru m or Plasma 38 U/L 7 - 56 [facility] Anion gap 3 in Serum or Plasma 7.0 mmol/L 8.0 - 16.0 L [facility] AGE 24 yrs [facility] Hospit al NON-AA GFR >60 mL/min [facility] ital AFR AMER GFR >60 mL/min [facility] Ho spital Male GFR In [...] >32 mL/min Normal ID Date Data Source [id number] 12/10/2019 11:51:00 AM EDT [facility] Name Value Range Interpretation Code Description Data Michelle rce(s) Supporting Document(s) Magnesium [Mass/volume] in Serum or Plasma 1.9 MG/DL 1.7 - 2.2 [facility] ID Date Data Source [id number] 12/09/2019 10:55:00 [place] [address] PHONE: [phone] FAX: [phone] Name ..............: RITTER NATALIYA Martinez Acct Number ...........................: [id number] ROOM. ............: [facility] Number ............................: [id number] Stay type.........: O/P Discharge Date...............: Admit Date .....: 12/09/19 Admit Phys .............................: MULLER HARD Date of ..: 1995 Family Phys ...........................: COLLAZO SCOT Phone..............: [phone] Age .................................:24 Film# ...............:[id number] Sex.................................:F Unsigned transcriptions are preliminary reports and do not represent a medical or legal document EKG [id number] COMPLETE:12/09/19 16:25 CJM [id number] Please See Scanned Results. Name Value Range Interpretation Code Description Data Michelle rce(s) Supporting Document(s) ID Date Data Source [id number] 12/09/2019 06:23:00 PM EDT [facility] Name Value Range Interpretation Code Description Data Michelle rce(s) Supporting Document(s) BASIC METABOLIC PANEL [facility] BASIC METABOLIC PANEL Sodium [Moles/volume] in Serum or Plasma 137 mEq/L 134 - 153 [facility] Potassium [Moles/volume] in Serum or Plasma 2.7 mEq/L 3.6 - 5.0 LL [facility] CALL/ READ BACK PR[facility]PER [facility] BY: [facility]/TIME [id number] [facility] Chloride [Moles/volume] in Serum or Plasma 99 mEq/L 98 - 107 [facility] Carbon dioxide, total [Moles/volume] in Serum or Plasma 24 MEQ/L 22 - 30 [facility] Glucose [Mass/volume] in Serum or Plasma 96 MG/DL 65 - 110 [facility] BUN 9 MG/DL 7 - [facility] Creatinine [Mass/volume] in Serum or Plasma 0.5 MG/DL 0.7 - 1.5 L [facility] BUN/CREAT 18 8 - 27 [facility] Calcium [Mass/volume] in Serum or Plasma 9.0 MG/DL 8.4 - 10.2 [facility] Anion gap 3 in Serum or Plasma 14.0 mmol/L 8.0 - 16.0 [facility] [address] [facility] AMER GFR >60 mL/min [facility] Ho spital NON-AA GFR >60 mL/min [facility] Hosp ital Male GFR Inter [...] >32 mL/min Normal ID Date Data Source [id number] 12/09/2019 06:23:00 PM EDT [facility] Name Value Range Interpretation Code Description Data Michelle rce(s) Supporting Document(s) BNP 147 PG/ML 0 - 125 H [facility] ID Date Data Source [id number] 12/09/2019 05:22:00 PM EDT [facility] Name Value Range Interpretation Code Description Data Michelle rce(s) Supporting Document(s) MONO TEST NEGATIVE NORMAL: NEGATIVE [facility] MONO REENTER NEGATIVE NORMAL: NEGATIVE [facility] { KIT LOT # [id number] ){ KIT EXP DATE 04.16.21 ){ PROCEDURAL CONTROL VALID ) ID Date Data Source [id number] 12/09/2019 02:56:00 PM EDT [facility] Name Value Range Interpretation Code Description Data Michelle rce(s) Supporting Document(s) COMPREHENSIVE METABOLIC PANEL [facility] COMPREHENSIVE METABOLIC PANEL Sodium [Moles/volume] in Serum or Plasma 139 mEq/L 134 - 153 [facility] Potassium [Moles/volume] in Serum or Plasma 2.7 mEq/L 3.6 - 5.0 LL [facility] CALL/ READ BACK CHAYA [employer] MACHINE OPERATOR [facility] BY: [facility]/TIME [id number] [facility] Chloride [Moles/volume] in Serum or Plasma 100 mEq/L 98 - 107 [facility] Carbon dioxide, total [Moles/volume] in Serum or Plasma 24 MEQ/L 22 - 30 [facility] Glucose [Mass/volume] in Serum or Plasma 102 MG/DL 65 - 110 [facility] BUN 11 MG/DL 7 - 21 [facility] Creatinine [Mass/volume] in Serum or Plasma 0.6 MG/DL 0.7 - 1.5 L [facility] BUN/CREAT 18 8 - 27 [facility] Protein [Mass/volume] in Serum or Plasma 7.1 G/DL 6.3 - 8.2 [facility] Albumin [Mass/volume] in Serum or Plasma 4.7 G/DL 3.9 - 5.0 [facility] Globulin [Mass/volume] in Serum by calculation 2.4 GM/DL 2.4 - 3.2 [facility] A/G RATIO 2.0 0.8 - 2.0 [facility] Calcium [Mass/volume] in Serum or Plasma 9.5 MG/DL 8.4 - 10.2 [facility] Bilirubin.total [Mass/volume] in Serum or Plasma 1.0 MG/DL 0.2 - 1.3 [facility] Alkaline phosphatase [Enzymatic activity/volume] in Serum or Plasma 64 U/L 38 - 126 [facility] Aspartate aminotransferase [Enzymatic activity/volume] in Serum or Plasma 23 U/L 5 - 40 [facility] Alanine aminotransferase [Enzymatic activity/volume] in Seru m or Plasma 37 U/L 7 - 56 [facility] Anion gap 3 in Serum or Plasma 15.0 mmol/L 8.0 - 16.0 [facility] AGE 24 yrs [facility] NON-AA GFR >60 mL/min [facility] ital AFR AMER GFR >60 mL/min [facility] Ho spital Male GFR In [...] >32 mL/min Normal ID Date Data Source [id number] 12/09/2019 02:51:00 PM EDT [facility] Name Value Range Interpretation Code Description Data Michelle rce(s) Supporting Document(s) TROPONIN T <0.01 NG/ML 0.00 - 0.10 [facility] ospital TROPONIN T0.1 ng/ml Recommended as the c linical threshold value forTroponin T. ID Date Data Source [id number] 12/09/2019 02:51:00 PM EDT [facility] Name Value Range Interpretation Code Description Data Michelle rce(s) Supporting Document(s) Magnesium [Mass/volume] in Serum or Plasma 1.6 MG/DL 1.7 - 2.2 L [facility] ID Date Data Source [id number] 12/09/2019 02:51:00 PM T [facility] Name Value Range Interpretation Code Description Data Michelle rce(s) Supporting Document(s) Lipase [Enzymatic activity/volume] in Serum or Plasma 12 U/L 13 - 60 L [facility] ID Date Data Source [id number] 12/09/2019 02:42:00 PM EDT [facility] Name Value Range Interpretation Code Description Data Michelle rce(s) Supporting Document(s) HCG SERUM QUAL NEGATIVE NORMAL: NEGATIVE [facility] HCG SERUM QL REENTER NEGATIVE NORMAL: NEGATIVE [facility] { KIT LOT # [id number] ){ KIT EXP DATE 02.27.21 ){ PROCEDURAL CONTROL VALID ) ID Date Data Source [id number] 12/09/2019 02:38:00 PM EDT [facility] Name Value Range Interpretation Code Description Data Michelle rce(s) Supporting Document(s) Prothrombin time (PT) 12.4 SECONDS 11.0 - 15.5 [facility] INR in Platelet poor plasma by Coagulation assay 0.91 0.93 - 1. 23 L [facility] \\BLDo\\INR INTERPRETATION\\BLDx\\ Therapeutic range for Coumadin and related oral anticoagulants. - International Normalized Ratio (INR): 2.0 - 3.0 for Venous Thrombosis, Pulmonary Embolus, Tissue heart valves, Acute NC, Atrial Fibrillation, Valvular heart disease and recurrent Systemic Embolism. -International Normalized Ratio (INR): 2.5 - 3.5 for Mechanical Prosthetic valve. ID Date Data Source [id number] 12/09/2019 02:25:00 PM EDT [facility] Name Value Range Interpretation Code Description Data Michelle rce(s) Supporting Document(s) CBC W/AUTOMATED DIFF [facility] COMPLETE BLOOD COUNT Leukocytes [#/volume] in Blood by Automated count 9.9 10^3/uL 4.2 - 1 1.0 [facility] Erythrocytes [#/volume] in Blood by Automated count 4.28 10^6/uL 4. 20 - 5.40 [facility] Hemoglobin [Mass/volume] in Blood 13.3 g/dL 12.0 - 16.0 [facility] Hematocrit [Volume Fraction] of Blood by Automated count 38.8 % 3 7.0 - 47.0 [facility] Erythrocyte mean corpuscular volume [Entitic volume] by Auto mated count 90.7 fL 81.0 - 101 [facility] Erythrocyte mean corpuscular hemoglobin [Entitic mass] by Automated count 31.1 pg 27.0 - 34.0 [facility] Erythrocyte mean corpuscular hemoglobin concentration [Mass/volume] by Automated count 34.3 g/dL 31.0 - 36.0 [facility] Erythrocyte distribution width [Ratio] by Automated count 12.7 % 11.5 - 14.5 [facility] Platelets [#/volume] in Blood by Automated count 282 10^3/uL 150 - 45 0 [facility] Platelet mean volume [Entitic volume] in Blood by Automated count 9.3 fL 7.4 - 10.4 [facility] Neutrophils/100 leukocytes in Blood by Automated count 77.7 % 37. 0 - 80.0 [facility] Lymphocytes/100 leukocytes in Blood by Manual count 15.6 % 25.0 - 40.0 L [facility] Monocytes/100 leukocytes in Blood by Automated count 6.2 % 3.0 - 8.0 [facility] Eosinophils/100 leukocytes in Blood by Automated count 0.0 % 0.0 - 7.0 [facility] Basophils/100 leukocytes in Blood by Automated count 0.2 % 0.0 - 2.5 [facility] %IG 0.3 % 0.0 - 0.[address] [facility] %NRBC 0.0 % 0.0 - 0.0 [facility] Neutrophils [#/volume] in Blood by Automated count 7.68 10^3/uL 2.00 - 6.90 H [facility] Lymphocytes [#/volume] in Blood by Automated count 1.54 10^3/uL 0.60 - 3.40 [facility] Monocytes [#/volume] in Blood by Automated count 0.61 10^3/uL 0.00 - 0.90 [facility] Eosinophils [#/volume] in Blood by Automated count 0.00 10^3/uL 0.00 - 0.70 [facility] Basophils [#/volume] in Blood by Automated count 0.02 10^3/uL 0.00 - 0.20 [facility] #IG 0.03 10^3/uL 0.00 - 0.10 [facility] ospital #NRBC 0.00 10^3/uL 0.00 - 0.00 [facility] ospital MANUAL DIFF NOT INDICATED [facility] RBC MORPH NOT INDICATED [facility] spital ID Date Data Source [id number] 12/09/2019 04:25:00 PM EDT [facility] Name Value Range Interpretation Code Description Data Michelle rce(s) Supporting Document(s) DRUG SCREEN URINE [facility] URINE DRUG SCREEN Amphetamine [Presence] in Urine by Screen method NEGATIVE NORMAL: N EGATIVE [facility] BARBITURATES NEGATIVE NORMAL: NEGATIVE [facility] BENZO NEGATIVE NORMAL: NEGATIVE [facility] COCAINE NEGATIVE NORMAL: NEGATIVE [facility] Tetrahydrocannabinol [Presence] in Urine PRESUMP POS NORMAL: NEGATIVE [facility] OPIATES NEGATIVE NORMAL: NEGATIVE [facility] Phencyclidine [Presence] in Urine by Screen method NEGATIVE NOR MAL: NEGATIVE [facility] \\BLDo\\URINE DRUG SCR EEN INTERPRETATION\\BLDx\\ THE CUTOFFF LEVELS FOR DETECTION ARE FOLLOWS: AMPHETAMINES 1000 ng/ml BARBITUARATES 200 ng/ml BENZODIAZEPINES 100 ng/ml THC 50 ng/ml PHENCYCLIDINE 25 ng/ml OPIATES 300 ng/ml COCAINE 300 ng/ml ALL POSITIVES ARE CONSIDERED PRESUMPTIVE POSITIVE CONFIRMATION WILL BE PERFORMED AT PHYSICIAN REQUEST. ID Date Data Source [id number] 12/09/2019 01:34:00 PM EDT [facility] Name Value Range Interpretation Code Description Data Michelle rce(s) Supporting Document(s) [facility] URINALYSIS SOURCE R [facility] Hospit al COLOR yellow NORMAL: Yellow [facility] H ospital CLARITY hazy NORMAL: Clear [facility] Ho spital Specific gravity of Urine by Test strip 1.020 1.001 - 1.030 [facility] pH 6 5 - 9 [facility] Glucose [Mass/volume] in Urine by Test strip NORM NORMAL: Negat [facility] Bilirubin.total [Presence] in Urine by Test strip NEG NORMAL: Negative [facility] Ketones [Presence] in Urine by Test strip 15 NORMAL: Negative [facility] Protein [Mass/volume] in Urine by Test strip 30 NORMAL: Negat [facility] Nitrite [Presence] in Urine by Test strip NEG NORMAL: Negative [facility] BLOOD 150 NORMAL: Negative [facility] Leukocyte esterase [Presence] in Urine by Test strip 25 [place] L: Negative [facility] Urobilinogen [Mass/volume] in Urine by Test strip 4 less tito n 1.0 mg/dL [facility] MICROSCOPIC See Below [facility] ital WBC 0 - 1 NORMAL: NONE SEEN [facility] Erythrocytes [#/volume] in Urine by Test strip 0 - 1 NORMAL: NON E SEEN [facility] EPITHELIAL MANY NORMAL: NONE SEEN [facility] Bacteria [Presence] in Urine sediment by Light microscopy 1+ SMALL NORMAL: NONE SEEN [facility] Amorphous sediment [Presence] in Urine sediment by Light chelsey roscopy 3+ NORMAL: NONE SEEN [facility] ID Date Data Source [id number] 12/09/2019 03:59:00 AM EDT [facility] [address] [place] [address] RESPIRATORY CARE REPORT ==== ---------NAME------- NUMBER SEX AGE ADMIT DISC. XRAY# F/C TYPERITTER NATALIYA Martinez [id number] F 24 12/07/19 12/07/19 [id number] E/R DATE OF : 1995 M/R# [id number] #: [id number] TR-02 LOCATION: EMERGENCY DEPT EKG [id number] COMP LETE:12/08/19 07:50 EWW [id number] PHYSICIAN: TANYA JACOBS Name Value Range Interpretation Code Description Data Michelle rce(s) Supporting Document(s) ID Date Data Source [id number] 12/07/2019 06:58:00 PM EDT [facility] 1 OrderSheet [facility] Emergency Department [address] [place] [address] Phone #: ext- [phone] 12/07/2019 18:51 Patient: NATALIYA BEASLEY Sex: F : 1995 Age: 24yWEIGHT:58.9 kg (S) HEIGHT:63 inches (S) BMI:23.0ALLERGIES: No Known Drug AllergyCHIEF COMPLAINT: vomitingDIAGNOSIS: VomitingLAB ORDERSOrder Description Priority Entered Acknowledged InitialedCBC w Diff STAT 19:12/07/2019 19:13 Alexia Kemp Riccardo R.N. M.D.;CMP STAT 19:12/07/2019 19:13 Alexia Kemp Riccardo R.N. M.D.;Lipase STAT 19:12/07/2019 19:13 Alexia Kemp Riccardo R.N. M.D.;Urinalysis (Clean STAT 19:12/07/2019Catch) Leena Martínez M.D.;Beta-HCG, Qual STAT 19:12/07/2019 19:13 Morgan Kemp Riccardo R.N. M.D.;Magnesium STAT 19:12/07/2019 19:13 Alexia Kemp Riccardo R.N. M.D.;Troponin-T STAT 19:12/07/2019 19:13 Alexia Kemp Riccardo R.N. M.D.;Urine Drug Screen STAT 19:11 12/07/2019 19:13 Alexia Kemp Riccardo R.N. M.D.;ETOH STAT 19:12/07/2019 19:21 Tanya Melton Riccardo Robert R.N. M.D.;DIAGNOSTIC STUDY ORDERSOrder Description Priority Entered Acknowledged Initialed 2 OrderSheet [facility] Emergency Department [address] [place] [address] Phone #: ext- [phone] 12/07/2019 18:51 Patient: NATALIYA BEASLEY Sex: F : 1995 Age: 24 yMEDICATION/IV/DRIP/FLUID ORDERSOrder Description Priority Entered Acknowledged InitialedPhenergan 25 mg 19:10 12/07/2019 19:14 Abigail Kemp 50 mL NS, give Leahrin, Leena R.NSvetawide open: 25 mg M.D.;(NOW x1, HIGHALERTMEDICATION)NS IV 1000 mL 19:10 12/07/2019 19:15 Steve Kemp: : Bolus 1000 Turrin, Leena R.N.mL (X1) M.D.;Magnesium Sulfate 19:55 12/07/2019 20:18 Geronimo,2 g IVPB X1 dose: 2 Tanya, Leena Quintana R.N.gm (HIGH ALERT M.D.;MEDICATION, X1)Pepcid IVPB 20 19:55 12/07/2019 20:17 Geronimo,mg/50mL (NOW x1, Leena Martínez R.N.Infuse over 30 M.D.;minutes.)Protonix IVPB 40 19:55 12/07/2019 20:13 Melton,mg with Dextrose Leena Martínez R.N.100 ml spike bag M.D.;(D5W)GENERAL ORDERSOrder Description Priority Entered Acknowledged InitialedNPO 19:12/07/2019 19:13 Alexia Kemp Riccardo R.N. M.D.;Saline Lock 19:10 12/07/2019 19:13 Alexia Kemp Riccardo R.N. M.D.;EKG 19:12/07/2019 19:13 Alexia Kemp Riccardo R.N. M.D.;Personal Coach 19:12/07/2019 19:13 Alexia Kemp(continuous) Leena Martínez R.N., M.D.;[Electronically signed by Mariano Melton R.N. (21:18 12/07/2019)][Electronically signed by Leena Martínez M.D. (22:34 12/07/2019)][Electronically locked by Mariano Melton R.N. (21:18 12/07/2019)] Name Value Range Interpretation Code Description Data Michelle rce(s) Supporting Document(s) ID Date Data Source [id number] 12/07/2019 06:58:00 PM EDT [facility] 1 Medication Reconciliation Report [facility] Emergency Department [address] [place] [address] Phone #: [phone] [phone] 12/07/2019 18:51 Patient: NATALIYA BEASLEY Sex: F [...] days -- Dispense 20 tablet.Refills: 0. Substitution permitted.[facility] - [address] [place] [address]. .Pepcid 20 mg tablet Take 1 tablet twice a day for 7 days -- Dispense 14 tablet. Refills: 0. Substitutionpermitted.[facility] - [address] [place] [address]. . -- Leena Martínez M.D. Name Value Range Interpretation Code Description Data Michelle rce(s) Supporting Document(s) ID Date Data Source [id number] 12/07/2019 06:58:00 PM EDT [facility] 1 Medication Administration Record [facility] Emergency Department [address] [place] [address] Phone #: ext- [phone] 12/07/2019 18:51 Patient: NATALIYA BEASLEY Sex: F [...] NS IV 1000 mL Bolus: : Bolus [id number] 12/07/2019 Dose: IV Fluids mL (X1)Alexia Kemp [...] 100 mL bag21:01 12/07/2019 Site: #1 right NohemyMariano tang R.N. Name Value Range Interpretation Code Description Data Michelle rce(s) Supporting Document(s) ID Date Data Source [id number] 12/07/2019 06:58:00 PM EDT [facility] 1 General Instructions [facility] Emergency Department [address] [place] [address] Phone #: ext- [phone] 12/07/2019 18:51 Patient: [...] days -- Dispense 20 tablet.Refills: 0. Substitution permitted.Pharmacy - [facility] - [address] [facility] ; [place] [address]. .Pepcid 20 mg tablet Take 1 tablet twice a day for 7 days -- Dispense 14 tablet. Refills: 0. Substitutionpermitted.[facility] - [address] [facility] ; [place] [address]. .Follow-up:Return to the emergency department as needed. [...] to plan of care. 2 General Instructions [facility] Emergency Department [address] [place] [address] Phone #: ext- [phone] 12/07/2019 18:51 Patient: [...] and water are not available, use alcohol-based vp analysis to keep from spreading the infection to [...] follow the diet below: 3 General Instructions [facility] Emergency Department [address] [place] [address] Phone #: ext- [phone] 12/07/2019 18:51 Patient: [...] higher, or as directed 4 General Instructions [facility] Emergency Department [address] [place] [address] Phone #: ext- [phone] 12/07/2019 18:51 Patient: NATALIYA BEASLEY Sex: F : 1995 Age: 24y Yellow color of the eyes or skin [phone] [employer] [address] [place] [address], [place] [address]. All rights reserved. This information is not intended as asubstitute for professional medical care. Always follow your healthcare professional's instructions. You have been given the following additional information: Vomiting (Adult)(Electronically signed by Leena Martínez M.D. 12/07/2019 22:34) Name Value Range Interpretation Code Description Data Michelle rce(s) Supporting Document(s) ID Date Data Source [id number] 12/07/2019 06:58:00 PM EDT [facility] 1 Clinical Report - Nurses [facility] Emergency Department [address] [place] [address] Phone #: ext- [phone] 12/07/2019 18:51 Patient: [...] Last oral intake by patient was (9pm).Treatment ON SITE SERVICES SPECIALIST:None.SEPSIS SCREEN: SIRS Screen negative. Sepsis Screen negative. [...] no deficiencies. 2 Clinical Report - Nurses [facility] Emergency Department [address] [place] [address] Phone #: ext- [phone] 12/07/2019 18:51 Patient: NATALIYA BEASLEY Sex: F : 1995 Age: 24y FUNCTIONAL ASSESSMENT: Functional assessment: no impairments noted. LEARNING NEEDS ASSESSMENT: The learning needs assessment revealed no barriers. FALL RISK ASSESSMENT: Fall risk assessment completed. No risk factors identified. SKIN INTEGRITY ASSESSMENT: Skin integrity risk assessment completed. No skin integrity risk identified. --18:57 12/07/19 Carmela Ocampo, [place] SOCIAL HX: History of heavy drug use: [...] limits. SKIN: Skin is warm and dry. --19:06 12/07/19 Alexia Kemp R.N.NURSING PROGRESS NOTESMonitoring of patient [...] Kemp R.N. 3 Clinical Report - Nurses [facility] Emergency Department [address] [place] [address] Phone #: ext- [phone] 12/07/2019 18:51 --------- Patient: NATALIYA BEASLEY Sex: [...] signs of allergic reaction and precautions.Verbalizes understanding. --19:14 12/07/19 Alexia Kemp R.N.19:15 12/07/2019 Started bag #1 [...] signs of allergic reaction and precautions.Verbalizes understanding. --19:15 12/07/19 Alexia Kemp R.N.( pt aware of need for urine sample pt cannot void at present mother at bedside). --19:15 12/07/19 Alexia Kemp R.N.Care transferred and report given (Dino). --19:15 12/07/19 Alexia Kemp R.N.Reassessment acuity: LEVEL 3.Rounding: Pain: [...] position. Brakes of bed on. --19:12/07/19Mariano tang R.N.19:19 12/07/19. BP: 129/82. MAP: 97. HR: 74. RR: 18. O2 saturation: 97%. Pain level now: 12/25.--19:21 12/07/19 Mariano Melton R.N.19:22 12/07/2019 Phenergan IVPB via IV site #1 Response: no adverse reaction pain is improving.Symptoms have improved the patient feels better. --19:22 12/07/19 Mariano Melton R.N.19:16 12/07/19. BP: 128/82. MAP: 97. HR: 77. RR: 25. O2 saturation: 96%. --19:26 12/07/19 Graciela Shields ER Tech120:00 12/07/2019 IV Fluids IV NS via IV site #1 Discontinued: bag #1 completed. Total amount infused:1000 mL. IV patency established. IV site checked: no pain, redness, or swelling. IV flushed thoroughly.--20:19 12/07/19 Mariano Melton R.N. 4 Clinical Report - Nurses [facility] Emergency Department [address] [place] [address] Phone #: ext- [phone] 12/07/2019 18:51 Patient: [...] reaction and precautions. Verbalizes understanding. --20:14 12/07/19 Marinao Melton R.N.Correction. --20:15 12/07/19 Mariano Melton R.N.20:17 [...] IV flushedthmary ortiz. --21:00 12/07/19 Mariano Melton R.N.21:00 12/07/2019 Magnesium [...] Melton R.N. 5 Clinical Report - Nurses [facility] Emergency Department [address] [place] [address] Phone #: ext- [phone] 12/07/2019 18:51 Patient: [...] parent verbalized understanding. Written instructions provided in Wallisian. The patient was discharged by the physician. She was discharged home and accompanied by parent. She left ambulatory and via private vehicle. Parent driving. Patient has no belongings. --21:13 12/07/19 Mariano Melton R.N. 21:11 12/07/19. BP: 108/71. MAP: 83. HR: 58. RR: 16. O2 saturation: 97%. Temp: 98.1 F. Pain level now: 07/25. --21:13 12/07/19 Mariano Melton R.N. Departure time: 21:13 12/07/2019. --21:12/07/19 Mariano Melton R.N .Locked/Released at 12/07/2019 21:18 by Mariano Melton R.N. Name Value Range Interpretation Code Description Data Michelle rce(s) Supporting Document(s) ID Date Data Source [id number] 12/07/2019 06:58:00 PM EDT [facility] 1 Clinical Report - Physicians/Mid Levels [facility] Emergency Department [address] [place] [address] Phone #: ext- [phone] 12/07/2019 18:51 Patient: [...] allergies. 2 Clinical Report - Physicians/Mid Levels [facility] Emergency Depa rtment [address] [place] [address] Phone #: ext- [phone] 12/07/2019 18:51 Patient: NATALIYA BEASLEY Sex: F : 1995 Age: 24yPHYSICAL EXAMVital Signs: 12/07/2019 19:19 BP: 129/82. MAP: 97. HR: 74. RR: 18. O2 saturation: 97%. Pain level now:12/25.12/07/2019 18:52 BP: 137/89. MAP: 105. HR: 100. RR: 14. O2 saturation: 100%. Temp: 98 F. Pain levelnow: 01/25. Have been reviewed. Oxygen saturation normal.Appearance: Alert. [...] making process. ETOH: (ANGELY: 12/07/2019 19:00) ( [facility] 12/07/2019 19:44) Final results Test Result Flag Units (Reference) ALCOHOL ETHYL BLOOD CORRECTED REPORT ALCOHOL <10.0 MG/DL ALCOHOL % 0.00 % (0.00 - 0.01) *FOR MEDICAL PURPOSES ONLY* FOLLOWING RESULTS REPORTED IN ERROR ALCOHOL % { CORRECT CBC w Diff: (ANGELY: 12/07/2019 19:00) ( [facility] 12/07/2019 19:23) Final results Test Result Flag [...] 450) 3 Clinical Report - Physicians/Mid Levels [facility] Emergency Department [address] [place] [address] Phone #: ext- [phone] 12/07/2019 18:51 Patient: NATALIYA BEASLEY Sex: F [...] Male GFR Interprentation 20-49 yrs >60 mL/min Bqoxni52-27 yrs >56 mL/min Normal 60-69 yrs >49 mL/min Normal 70-79yrs>42 mL/min Normal 80 and above >35 mL/min Normal Female GFRInterpretation 20-39 yrs >60 mL/min Normal 40-49 yrs >58 mL/minNormal 50-59 yrs >51 mL/min Normal 60-69 yrs >45 mL/min Eyetgu67-92 yrs >39 mL/min Normal 80 and above >32 mL/min NormalLipase: (ANGELY: 12/07/2019 19:00) ( MsgRcvd 12/07/2019 19:44) Final results Test Result Flag Units (Reference) LIPASE 12 L U/L (13 - 60)Beta-HCG, Qual Serum: (ANGELY: 12/07/2019 19:00) ( [facility] 12/07/2019 19:39) Final results Test Result Flag Units (Reference) HCG SERUM QUAL NEGATIVE (NORMAL: NEGAT 4 Clinical Report - Physicians/Mid Levels [facility] Emergency Department [address] [place] [address] Phone #: ext- [phone] 12/07/2019 18:51 Patient: NATALIYA BEASLEY Sex: F : 1995 Age: 24y HCG SERUM QL REENTER NEGATIVE (NORMAL: NEGAT { KIT LOT # [id number] ){ KIT EXP DATE 02.27.21 ){ PROCEDURAL CONTROL VALID ) Magnesium: (ANGELY: 12/07/2019 19:00) ( [facility] [place] 12/07/2019 19:44) Final results Test Result Flag Units (Reference) MAGNESIUM 1.3 L MG/DL (1.7 - 2.2) Troponin-T: (ANGELY: 12/07/2019 19:00) ( [facility] [place] 12/07/2019 19:42) Final results Test Result Flag [...] USE). 5 Clinical Report - Physicians/Mid Levels [facility] Emergency Department [address] [place] [address] Phone #: ext- [phone] 12/07/2019 18:51 Patient: [...] Dispense 20 tablet. Refills: 0. Substitution permitted. Pharmacy - [facility] - [address] ; [place] [address]. . Pepcid 20 mg tablet Take 1 tablet twice a day for 7 days -- Dispense 14 tablet. Refills: 0. Substitution permitted. Pharmacy - [facility] - [address] ; [place] [address]. . Follow- up: Return to the emergency [...] Name Value Range Interpretation Code Description Data Michlele rce(s) Supporting Document(s) ID Date Data Source [id number] 12/07/2019 07:44:00 PM [facility] Name Value Range Interpretation Code Description Data Michelle rce(s) Supporting Document(s) Magnesium [Mass/volume] in Serum or Plasma 1.3 MG/DL 1.7 - 2.2 L [facility] ID Date Data Source [id number] 12/07/2019 07:44:00 PM [facility] Name Value Range Interpretation Code Description Data Michelle rce(s) Supporting Document(s) Lipase [Enzymatic activity/volume] in Serum or Plasma 12 U/L 13 - 60 L [facility] ID Date Data Source [id number] 12/07/2019 07:43:00 PM [facility] Name Value Range Interpretation Code Description Data Michelle rce(s) Supporting Document(s) ALCOHOL ETHYL BLOOD [facility] CORRECTE D REPORT Ethanol [Moles/volume] in Blood <10.0 MG/DL [facility] ALCOHOL % 0.00 % 0.00 - 0.01 [facility] ital *FOR MEDICAL PURPOSES ONLY * FOLLOWING RESULTS REPORTED IN ERROR ALCOHOL % { CORRECT ID Date Data Source [id number] 12/07/2019 07:43:00 PM EDT [facility] Name Value Range Interpretation Code Description Data Michelle rce(s) Supporting Document(s) COMPREHENSIVE METABOLIC PANEL [facility] COMPREHENSIVE METABOLIC PANEL Sodium [Moles/volume] in Serum or Plasma 140 mEq/L 134 - 153 [facility] Potassium [Moles/volume] in Serum or Plasma 4.4 mEq/L 3.6 - 5.0 [facility] Chloride [Moles/volume] in Serum or Plasma 94 mEq/L 98 - 107 L [facility] Carbon dioxide, total [Moles/volume] in Serum or Plasma 23 MEQ/L 22 - 30 [facility] Glucose [Mass/volume] in Serum or Plasma 127 MG/DL 65 - 110 H [facility] BUN 12 MG/DL 7 - 21 [facility] al Creatinine [Mass/volume] in Serum or Plasma 0.6 MG/DL 0.7 - 1.5 L [facility] BUN/CREAT 20 8 - 27 [facility] al Protein [Mass/volume] in Serum or Plasma 8.1 G/DL 6.3 - 8.2 [facility] Albumin [Mass/volume] in Serum or Plasma 5.1 G/DL 3.9 - 5.0 H [facility] Globulin [Mass/volume] in Serum by calculation 3.0 GM/DL 2.4 - 3.2 [facility] A/G RATIO 1.7 0.8 - 2.0 [facility] Calcium [Mass/volume] in Serum or Plasma 10.8 MG/DL 8.4 - 10.2 H [facility] Bilirubin.total [Mass/volume] in Serum or Plasma 0.8 MG/DL 0.2 - 1.3 [facility] Alkaline phosphatase [Enzymatic activity/volume] in Serum or Plasma 82 U/L 38 - 126 [facility] Aspartate aminotransferase [Enzymatic activity/volume] in Serum or Plasma 22 U/L 5 - 40 [facility] Alanine aminotransferase [Enzymatic activity/volume] in Seru m or Plasma 26 U/L 7 - 56 [facility] Anion gap 3 in Serum or Plasma 23.0 mmol/L 8.0 - 16.0 H [facility] AGE 24 yrs [facility] Hospit al NON-AA GFR >60 mL/min [facility] Hosp ital AFR AMER GFR >60 mL/min [facility] Ho spital Male GFR In [...] >32 mL/min Normal ID Date Data Source [id number] 12/07/2019 07:42:00 PM EDT [facility] Name Value Range Interpretation Code Description Data Michelle rce(s) Supporting Document(s) TROPONIN T <0.01 NG/ML 0.00 - 0.10 [facility] ospital TROPONIN T0.1 ng/ml Recommended as the c linical threshold value forTroponin T. ID Date Data Source [id number] 12/07/2019 07:38:00 PM EDT [facility] Name Value Range Interpretation Code Description Data Michelle rce(s) Supporting Document(s) HCG SERUM QUAL NEGATIVE NORMAL: NEGATIVE [facility] HCG SERUM QL REENTER NEGATIVE NORMAL: NEGATIVE [facility] { KIT LOT # [id number] ){ KIT EXP DATE 02.27.21 ){ PROCEDURAL CONTROL VALID ) ID Date Data Source [id number] 12/07/2019 07:23:00 PM EDT [facility] Name Value Range Interpretation Code Description Data Michelle rce(s) Supporting Document(s) CBC W/AUTOMATED DIFF [facility] COMPLETE BLOOD COUNT Leukocytes [#/volume] in Blood by Automated count 14.8 10^3/uL 4.2 - 11.0 H [facility] Erythrocytes [#/volume] in Blood by Automated count 4.77 10^6/uL 4. 20 - 5.40 [facility] Hemoglobin [Mass/volume] in Blood 15.0 g/dL 12.0 - 16.0 [facility] Hematocrit [Volume Fraction] of Blood by Automated count 43.9 % 3 7.0 - 47.0 [facility] Erythrocyte mean corpuscular volume [Entitic volume] by Auto mated count 92.0 fL 81.0 - 101 [facility] Erythrocyte mean corpuscular hemoglobin [Entitic mass] by Automated count 31.4 pg 27.0 - 34.0 [facility] Erythrocyte mean corpuscular hemoglobin concentration [Mass/volume] by Automated count 34.2 g/dL 31.0 - 36.0 [facility] Erythrocyte distribution width [Ratio] by Automated count 13.1 % 11.5 - 14.5 [facility] Platelets [#/volume] in Blood by Automated count 387 10^3/uL 150 - 45 0 [facility] Platelet mean volume [Entitic volume] in Blood by Automated count 10.0 fL 7.4 - 10.4 [facility] Neutrophils/100 leukocytes in Blood by Automated count 88.4 % 37. 0 - 80.0 H [facility] Lymphocytes/100 leukocytes in Blood by Manual count 8.9 % 25.0 - 40.0 L [facility] Monocytes/100 leukocytes in Blood by Automated count 2.3 % 3.0 - 8.0 L [facility] Eosinophils/100 leukocytes in Blood by Automated count 0.0 % 0.0 - 7.0 [facility] Basophils/100 leukocytes in Blood by Automated count 0.1 % 0.0 - 2.5 [facility] %IG 0.3 % 0.0 - 0.[address] [facility] %NRBC 0.0 % 0.0 - 0.0 [facility] al Neutrophils [#/volume] in Blood by Automated count 13.06 10^3/uL 2. 00 - 6.90 H [facility] Lymphocytes [#/volume] in Blood by Automated count 1.32 10^3/uL 0.60 - 3.40 [facility] Monocytes [#/volume] in Blood by Automated count 0.34 10^3/uL 0.00 - 0.90 [facility] Eosinophils [#/volume] in Blood by Automated count 0.00 10^3/uL 0.00 - 0.70 [facility] Basophils [#/volume] in Blood by Automated count 0.02 10^3/uL 0.00 - 0.20 [facility] #IG 0.04 10^3/uL 0.00 - 0.10 [facility] H ospital #NRBC 0.00 10^3/uL 0.00 - 0.00 [facility] H ospital MANUAL DIFF NOT INDICATED [facility] RBC MORPH NOT INDICATED [facility] spital ID Date Data Source [id number] 11/26/2019 12:29:00 [place] [address] RESPIRATORY CARE REPORT ==== ---------NAME------- NUMBER SEX AGE ADMIT DISC. XRAY# F/C TYPERIARIN CHINYEREELNiki Martinez [id number] F 24 11/24/19 [id number] X6B O/P DATE OF : 1995 M/R# [id number] #: [id number] LOCATION: [place] [id number] COMP LETE:11/26/19 07:34 [place] [id number] PHYSICIAN: CLAUDIO Name Value Range Interpretation Code Description Data Michelle rce(s) Supporting Document(s) ID Date Data Source [id number] 11/26/2019 07:54:00 AM EDT [facility] Name Value Range Interpretation Code Description Data Michelle rce(s) Supporting Document(s) BASIC METABOLIC PANEL [facility] BASIC METABOLIC PANEL Sodium [Moles/volume] in Serum or Plasma 135 mEq/L 134 - 153 [facility] Potassium [Moles/volume] in Serum or Plasma 4.0 mEq/L 3.6 - 5.0 [facility] Chloride [Moles/volume] in Serum or Plasma 102 mEq/L 98 - 107 [facility] Carbon dioxide, total [Moles/volume] in Serum or Plasma 26 MEQ/L 22 - 30 [facility] Glucose [Mass/volume] in Serum or Plasma 89 MG/DL 65 - 110 [facility] BUN 5 MG/DL 7 - [address] [facility] Creatinine [Mass/volume] in Serum or Plasma 0.5 MG/DL 0.7 - 1.5 L [facility] BUN/CREAT 10 8 - 27 [facility] al Calcium [Mass/volume] in Serum or Plasma 8.7 MG/DL 8.4 - 10.2 [facility] Anion gap 3 in Serum or Plasma 7.0 mmol/L 8.0 - 16.0 L [facility] AGE 24 yrs [facility] Hospit al AFR AMER GFR >60 mL/min [facility] Ho spital NON-AA GFR >60 mL/min [facility] ital Male GFR Inter prentation 20-49 [...] >32 mL/min Normal ID Date Data Source [id number] 11/26/2019 07:28:00 AM EDT [facility] Name Value Range Interpretation Code Description Data Michelle rce(s) Supporting Document(s) CBC NO DIFF [facility] Hosp ital COMPLETE BLOOD COUNT Leukocytes [#/volume] in Blood by Automated count 9.9 10^3/uL 4.2 - 1 1.0 [facility] Erythrocytes [#/volume] in Blood by Automated count 4.08 10^6/uL 4. 20 - 5.40 L [facility] Hemoglobin [Mass/volume] in Blood 12.7 g/dL 12.0 - 16.0 [facility] Hematocrit [Volume Fraction] of Blood by Automated count 38.0 % 3 7.0 - 47.0 [facility] Erythrocyte mean corpuscular volume [Entitic volume] by Auto mated count 93.1 fL 81.0 - 101 [facility] Erythrocyte mean corpuscular hemoglobin [Entitic mass] by Automated count 31.1 pg 27.0 - 34.0 [facility] Erythrocyte mean corpuscular hemoglobin concentration [Mass/volume] by Automated count 33.4 g/dL 31.0 - 36.0 [facility] Erythrocyte distribution width [Ratio] by Automated count 12.2 % 11.5 - 14.5 [facility] Platelets [#/volume] in Blood by Automated count 196 10^3/uL 150 - 45 0 [facility] Platelet mean volume [Entitic volume] in Blood by Automated count 10.3 fL 7.4 - 10.4 [facility] ID Date Data Source [id number] 11/26/2019 02:54:00 AM EDT [facility] Name Value Range Interpretation Code Description Data Michelle rce(s) Supporting Document(s) BASIC METABOLIC PANEL [facility] BASIC METABOLIC PANEL Sodium [Moles/volume] in Serum or Plasma 134 mEq/L 134 - 153 [facility] Potassium [Moles/volume] in Serum or Plasma 3.8 mEq/L 3.6 - 5.0 [facility] Chloride [Moles/volume] in Serum or Plasma 100 mEq/L 98 - 107 [facility] Carbon dioxide, total [Moles/volume] in Serum or Plasma 27 MEQ/L 22 - 30 [facility] Glucose [Mass/volume] in Serum or Plasma 82 MG/DL 65 - 110 [facility] BUN 7 MG/DL 7 [facility] Creatinine [Mass/volume] in Serum or Plasma 0.5 MG/DL 0.7 - 1.5 L [facility] BUN/CREAT 14 8 - 27 [facility] al Calcium [Mass/volume] in Serum or Plasma 8.6 MG/DL 8.4 - 10.2 [facility] Anion gap 3 in Serum or Plasma 7.0 mmol/L 8.0 - 16.0 L [facility] AGE 24 yrs [facility] al AFR AMER GFR >60 mL/min [facility] Ho spital NON-AA GFR >60 mL/min [facility] ital Male GFR Inter prentation 20-49 [...] >32 mL/min Normal ID Date Data Source [id number] 11/25/2019 10:11:00 PM EDT [facility] Name Value Range Interpretation Code Description Data Michelle rce(s) Supporting Document(s) BASIC METABOLIC PANEL [facility] BASIC METABOLIC PANEL Sodium [Moles/volume] in Serum or Plasma 136 mEq/L 134 - 153 [facility] Potassium [Moles/volume] in Serum or Plasma 3.5 mEq/L 3.6 - 5.0 L [facility] Chloride [Moles/volume] in Serum or Plasma 99 mEq/L 98 - 107 [facility] Carbon dioxide, total [Moles/volume] in Serum or Plasma 27 MEQ/L 22 - 30 [facility] Glucose [Mass/volume] in Serum or Plasma 75 MG/DL 65 - 110 [facility] BUN 9 MG/DL 7 - 21 [facility] Creatinine [Mass/volume] in Serum or Plasma 0.5 MG/DL 0.7 - 1.5 L [facility] BUN/CREAT 18 8 - 27 [facility] al Calcium [Mass/volume] in Serum or Plasma 8.8 MG/DL 8.4 - 10.2 [facility] Anion gap 3 in Serum or Plasma 10.0 mmol/L 8.0 - 16.0 [facility] AGE 24 yrs [facility] al AFR AMER GFR >60 mL/min [facility] Ho spital NON-AA GFR >60 mL/min [facility] ital Male GFR Inter prentation 20-49 [...] >32 mL/min Normal ID Date Data Source [id number] 11/25/2019 06:07:00 PM EDT [facility] Name Value Range Interpretation Code Description Data Michelle rce(s) Supporting Document(s) BASIC METABOLIC PANEL [facility] BASIC METABOLIC PANEL Sodium [Moles/volume] in Serum or Plasma 132 mEq/L 134 - 153 L [facility] Potassium [Moles/volume] in Serum or Plasma 3.2 mEq/L 3.6 - 5.0 L [facility] Chloride [Moles/volume] in Serum or Plasma 94 mEq/L 98 - 107 L [facility] Carbon dioxide, total [Moles/volume] in Serum or Plasma 28 MEQ/L 22 - 30 [facility] Glucose [Mass/volume] in Serum or Plasma 86 MG/DL 65 - 110 [facility] BUN 11 MG/DL 7 - 21 [facility] al Creatinine [Mass/volume] in Serum or Plasma 0.6 MG/DL 0.7 - 1.5 L [facility] BUN/CREAT 18 8 - 27 [facility] Calcium [Mass/volume] in Serum or Plasma 8.7 MG/DL 8.4 - 10.2 [facility] Anion gap 3 in Serum or Plasma 10.0 mmol/L 8.0 - 16.0 [facility] AGE 24 yrs [facility] al AFR AMER GFR >60 mL/min [facility] Ho spital NON-AA GFR >60 mL/min [facility] Hosp ital Male GFR Inter [...] >32 mL/min Normal ID Date Data Source [id number] 11/25/2019 01:04:00 PM EDT [facility] [address] [place] [address] RESPIRATORY CARE REPORT ==== ---------NAME------- NUMBER SEX AGE ADMIT DISC. XRAY# F/C JOSS Martinez [id number] F 24 11/24/19 [id number] X6B O/P DATE OF : 1995 M/R# [id number] #: [id number] [id number] LOCATION: EMERGENCY DEPT EKG [id number] COMP LETE:11/25/19 06:00 PAD [id number] PHYSICIAN: CLAUDIO Name Value Range Interpretation Code Description Data Michelle rce(s) Supporting Document(s) ID Date Data Source [id number] 11/25/2019 01:35:00 PM EDT [facility] Name Value Range Interpretation Code Description Data Michelle rce(s) Supporting Document(s) BASIC METABOLIC PANEL [facility] BASIC METABOLIC PANEL Sodium [Moles/volume] in Serum or Plasma 133 mEq/L 134 - 153 L [facility] Potassium [Moles/volume] in Serum or Plasma 3.3 mEq/L 3.6 - 5.0 L [facility] Chloride [Moles/volume] in Serum or Plasma 93 mEq/L 98 - 107 L [facility] Carbon dioxide, total [Moles/volume] in Serum or Plasma 32 MEQ/L 22 - 30 H [facility] Glucose [Mass/volume] in Serum or Plasma 84 MG/DL 65 - 110 [facility] BUN 12 MG/DL 7 [facility] Creatinine [Mass/volume] in Serum or Plasma 0.6 MG/DL 0.7 - 1.5 L [facility] BUN/CREAT 20 8 - 27 [facility] Calcium [Mass/volume] in Serum or Plasma 8.9 MG/DL 8.4 - 10.2 [facility] Anion gap 3 in Serum or Plasma 8.0 mmol/L 8.0 - 16.0 [facility] AGE 24 yrs [facility] al AFR AMER GFR >60 mL/min [facility] Ho spital NON-AA GFR >60 mL/min [facility] ital Male GFR Inter prentation 20-49 [...] >32 mL/min Normal ID Date Data Source [id number] 11/25/2019 10:02:[address] [facility] [address] [place] [address] PHONE: [phone] FAX: [phone] Name .................. : RITTER NATALIYA Martinez Acct Number.................. : [id number] ROOM. ................. : TR-04 MR Number ................... : [id number] Stay type ............. : E/R Discharge Date......... ... : Admit Date ......... : 11/24/19 Admit Phys .................... : MICKEYMINNIE L Date of ....... : 1995 Family Phys ................... : COLLAZO SCOT Phone .................. : [phone] Age ................................ : 24 Film# .................. .:[id number] Sex ................................. : F Unsigned transcriptions are preliminary reports and do not represent a medical or legal document CT ABD & PELVIS W/ IV ONLY [id number] COMPLETE:11/24/19 18:06 RLB [id number] Reason(s): Abdominal Pain CT OF THE ABDOMEN [...] and Signed By Page 1 of 2 [facility] [address] [place] [address] PHONE: [phone] FAX: [phone] Name .................. : RITTER NATALIYA Martinez Acct Number.................. : [id number] ROOM. ................. : TR-04 MR Number ................... : [id number] Stay type ............. : E/R Discharge Date......... ... : Admit Date ......... : 11/24/19 Admit Phys .................... : AMERNATH L Date of ....... : 1995 Family Phys ................... : COLLAZO SCOT Phone .................. : [phone] Age ................................ : 24 Film# .................. .:[id number] Sex ................................. : F Unsigned transcriptions are preliminary reports and do not represent a medical or legal document CT ABD & PELVIS W/ IV ONLY [id number] COMPLETE:11/24/19 18:06 RLB [id number] Reason(s): Abdominal Pain Genaro Lozoya M.D. , 11/25/19 10:02, [place] Transcribe Initials: FAHAD , Transcribe Date: 11/24/19 20:06, Dictation Date: Copy for: EMERGENCY DEPT via modem Copy for: [address] [facility] Page 2 of 2 Name Value Range Interpretation Code Description Data Michelle rce(s) Supporting Document(s) ID Date Data Source [id number] 11/25/2019 06:53:00 AM EDT [facility] Name Value Range Interpretation Code Description Data Michelle rce(s) Supporting Document(s) Magnesium [Mass/volume] in Serum or Plasma 2.5 MG/DL 1.7 - 2.2 H [facility] ID Date Data Source [id number] 11/25/2019 06:53:00 AM EDT [facility] Name Value Range Interpretation Code Description Data Michelle rce(s) Supporting Document(s) COMPREHENSIVE METABOLIC PANEL [facility] COMPREHENSIVE METABOLIC PANEL Sodium [Moles/volume] in Serum or Plasma 131 mEq/L 134 - 153 L [facility] Potassium [Moles/volume] in Serum or Plasma 3.5 mEq/L 3.6 - 5.0 L [facility] Chloride [Moles/volume] in Serum or Plasma 86 mEq/L 98 - 107 L [facility] Carbon dioxide, total [Moles/volume] in Serum or Plasma 35 MEQ/L 22 - 30 H [facility] Glucose [Mass/volume] in Serum or Plasma 85 MG/DL 65 - 110 [facility] BUN 16 MG/DL 7 - 21 [facility] al Creatinine [Mass/volume] in Serum or Plasma 0.6 MG/DL 0.7 - 1.5 L [facility] BUN/CREAT 27 8 - 27 [facility] al Protein [Mass/volume] in Serum or Plasma 6.4 G/DL 6.3 - 8.2 [facility] Albumin [Mass/volume] in Serum or Plasma 4.3 G/DL 3.9 - 5.0 [facility] Globulin [Mass/volume] in Serum by calculation 2.1 GM/DL 2.4 - 3.2 L [facility] A/G RATIO 2.0 0.8 - 2.0 [facility] Calcium [Mass/volume] in Serum or Plasma 9.2 MG/DL 8.4 - 10.2 [facility] Bilirubin.total [Mass/volume] in Serum or Plasma 1.1 MG/DL 0.2 - 1.3 [facility] Alkaline phosphatase [Enzymatic activity/volume] in Serum or Plasma 70 U/L 38 - 126 [facility] Aspartate aminotransferase [Enzymatic activity/volume] in Serum or Plasma 26 U/L 5 - 40 [facility] Alanine aminotransferase [Enzymatic activity/volume] in Seru m or Plasma 29 U/L 7 - 56 [facility] Anion gap 3 in Serum or Plasma 10.0 mmol/L 8.0 - 16.0 [facility] AGE 24 yrs [facility] Hospit al NON-AA GFR >60 mL/min [facility] Hosp ital AFR AMER GFR >60 mL/min [facility] Ho spital Male GFR In [...] >32 mL/min Normal ID Date Data Source [id number] 11/25/2019 06:24:00 AM EDT [facility] Name Value Range Interpretation Code Description Data Michelle rce(s) Supporting Document(s) CBC W/AUTOMATED DIFF [facility] COMPLETE BLOOD COUNT Leukocytes [#/volume] in Blood by Automated count 10.0 10^3/uL 4.2 - 11.0 [facility] Erythrocytes [#/volume] in Blood by Automated count 4.70 10^6/uL 4. 20 - 5.40 [facility] Hemoglobin [Mass/volume] in Blood 14.7 g/dL 12.0 - 16.0 [facility] Hematocrit [Volume Fraction] of Blood by Automated count 41.5 % 3 7.0 - 47.0 [facility] Erythrocyte mean corpuscular volume [Entitic volume] by Auto mated count 88.3 fL 81.0 - 101 [facility] Erythrocyte mean corpuscular hemoglobin [Entitic mass] by Automated count 31.3 pg 27.0 - 34.0 [facility] Erythrocyte mean corpuscular hemoglobin concentration [Mass/volume] by Automated count 35.4 g/dL 31.0 - 36.0 [facility] Erythrocyte distribution width [Ratio] by Automated count 12.0 % 11.5 - 14.5 [facility] Platelets [#/volume] in Blood by Automated count 241 10^3/uL 150 - 45 0 [facility] Platelet mean volume [Entitic volume] in Blood by Automated count 10.6 fL 7.4 - 10.4 H [facility] Neutrophils/100 leukocytes in Blood by Automated count 65.5 % 37. 0 - 80.0 [facility] Lymphocytes/100 leukocytes in Blood by Manual count 23.7 % 25.0 - 40.0 L [facility] Monocytes/100 leukocytes in Blood by Automated count 9.3 % 3.0 - 8.0 H [facility] Eosinophils/100 leukocytes in Blood by Automated count 0.7 % 0.0 - 7.0 [facility] Basophils/100 leukocytes in Blood by Automated count 0.2 % 0.0 - 2.5 [facility] %IG 0.6 % 0.0 - 0.[address] [facility] %[facility]BC 0.0 % 0.0 - 0.0 [facility] al Neutrophils [#/volume] in Blood by Automated count 6.51 10^3/uL 2.00 - 6.90 [facility] Lymphocytes [#/volume] in Blood by Automated count 2.36 10^3/uL 0.60 - 3.40 [facility] Monocytes [#/volume] in Blood by Automated count 0.93 10^3/uL 0.00 - 0.90 H [facility] Eosinophils [#/volume] in Blood by Automated count 0.07 10^3/uL 0.00 - 0.70 [facility] Basophils [#/volume] in Blood by Automated count 0.02 10^3/uL 0.00 - 0.20 [facility] #IG 0.06 10^3/uL 0.00 - 0.10 [facility] ospital #NRBC 0.00 10^3/uL 0.00 - 0.00 [facility] ospital MANUAL DIFF NOT INDICATED [facility] RBC MORPH NOT INDICATED [facility] spital ID Date Data Source [id number] 11/25/2019 01:45:00 AM EDT [facility] Name Value Range Interpretation Code Description Data Michelle rce(s) Supporting Document(s) BASIC METABOLIC PANEL [facility] BASIC METABOLIC PANEL Sodium [Moles/volume] in Serum or Plasma 127 mEq/L 134 - 153 L [facility] Potassium [Moles/volume] in Serum or Plasma 2.4 mEq/L 3.6 - 5.0 LL [facility] CALL/ READ BACK [facility] BY: LSA [facility] DATE/TIME 11/25/2019 0145 AM [facility] Chloride [Moles/volume] in Serum or Plasma 80 mEq/L 98 - 107 L [facility] Carbon dioxide, total [Moles/volume] in Serum or Plasma 36 MEQ/L 22 - 30 H [facility] Glucose [Mass/volume] in Serum or Plasma 105 MG/DL 65 - 110 [facility] BUN 18 MG/DL 7 - 21 [facility] Creatinine [Mass/volume] in Serum or Plasma 0.7 MG/DL 0.7 - 1.5 [facility] BUN/CREAT 26 8 - 27 [facility] Calcium [Mass/volume] in Serum or Plasma 9.2 MG/DL 8.4 - 10.2 [facility] Anion gap 3 in Serum or Plasma 11.0 mmol/L 8.0 - 16.0 [facility] AGE 24 yrs [facility] al AFR AMER GFR >60 mL/min [facility] Ho spital NON-AA GFR >60 mL/min [facility] ital Male GFR Inter prentation 20-49 [...] >32 mL/min Normal ID Date Data Source [id number] 11/24/2019 05:12:00 PM EDT [facility] 1 OrderSheet [facility] Emergency Department [address] [place] [address] Phone #: ext- [phone] 11/24/2019 16:57 Patient: NATALIYA BEASLEY Sex: F : 1995 Age: 24yWEIGHT:58.9 kg (S) HEIGHT:63 inches (S) BMI:23.0ALLERGIES: NoneCHIEF COMPLAINT: vomitingDIAGNOSIS: Vomiting, Gastritis, Hyponatremia, HypokalemiaLAB ORDERSOrder Description Priority Entered Acknowledged InitialedBeta-HCG, Qual STAT 17:14 11/24/2019 17:17 Devika,Serum Ariel Miller R.N., M.D.;CBC w Diff STAT 17:14 11/24/2019 17:17 Fawad Fortune Lingappa Frank R.N. M.D.;CMP STAT 17:14 11/24/2019 17:17 Fawad Fortune Lingappa Frank R.N. M.D.;Lipase STAT 17:14 11/24/2019 17:17 Fawad Fortune Lingappa Frank R.N. M.D.;Urinalysis (Clean STAT 17:14 11/24/2019 19:09 Devika,Catch) Ariel Miller R.N., M.D.;CPK STAT 17:24 11/24/2019 17:35 Ariel Mahmood RN, M.D.;BMP STAT 18:16 11/24/2019 18:28 Fawad Fortune Lingappa Frank R.N. M.D.;Magnesium STAT 18:16 11/24/2019 18:28 Fawad Fortune Lingappa Frank R.N. M.D.;Magnesium STAT 18:16 11/24/2019 Initialed: 18:16 Ariel Miller M.D., Lingappa Cancelled: Duplicate Order 18:17 Yudelka; Ariel Miller M.D.DIAGNOSTIC STUDY ORDERSOrder Description Priority Entered Acknowledged InitialedCT Abd PEL W/ IV STAT 17:15 11/24/2019 17:17 Devika, 2 OrderSheet [facility] Emergency Department [address] [place] [address] Phone #: ext- [phone] 11/24/2019 16:57 Patient: NATALIYA BEASLEY Sex: F : 1995 Age: 24yContrast Only Ariel Miller R.N.(Oxygen?(No)) M.DSveta;(IV?(Yes)) Reason for Study: Abdominal PainMEDICATION/IV/DRIP/FLUID ORDERSOrder D escription Priority Entered Acknowledged InitialedNS IV : Bolus 1000 STAT 17:14 11/24/2019 17:34 DorismL, then 250 mL/hr Ariel Miller RN(NOW x1) Yudelka;Zofran IVP 4 mg 17:14 11/24/2019 17:34 Edilma Ariel Miller RN, M.D.;Protonix IVPB 40 17:14 11/24/2019 17:35 Dorismg with Dextrose Ariel Miller RN100 ml spike bag MNakul;(D5W)KCl Liquid PO 40 18:17 11/24/2019 18:29 Sorbero,meq (NOW x1) Ariel Miller R.N., M.D.;KCl IVPB 10 18:17 11/24/2019 18:29 Sorbero,meq/100mL Ariel Miller R.N. M.DSveta;IV NS with with 40 STAT 18:20 11/24/2019 19:41 Devika,meq kcl in 1 liter Ariel Miller R.N.at 200/hour: Bolus M.D.;200 mL, then 200mL/hr (NOW x1)GENERAL ORDERSOrder Description Priority Entered Acknowledged Initialed[Electronically signed by Aureliano Fortune R.N. (21:06 11/24/2019)][Electronically signed by Ariel Miller M.D. (00:42 11/25/2019)][Electronically locked by Aureliano Fortune R.N. (:11/24/2019)] Name Value Range Interpretation Code Description Data Michelle rce(s) Supporting Document(s) ID Date Data Source [id number] 11/24/2019 05:12:00 PM EDT [facility] 1 Medication Reconciliation Report [facility] Emergency Department [address] [place] [address] Phone #: ext- [phone] 11/24/2019 16:57 Patient: [...] rce(s) Supporting Document(s) ID Date Data Source [id number] 11/24/2019 05:12:00 PM EDT [facility] 1 Medication Administration Record [facility] Emergency Department [address] [place] [address] Phone #: ext- [phone] 11/24/2019 16:57 Patient: NATALIYA BEASLEY Sex: F : 1995 Age: 24yWeight: 58.9 kgHeight/Length: 63 inBMI: 23ALLERGIES: None Date/Time Medication Administered Medication OrderedStart NS [IV] NS IV : Bolus 1000 mL, then 72751:29 11/24/2019 Dose: IV Fluids mL/hr (NOW x1); [...] 100 mL bag18:57 11/24/2019 Site: #1 right ACSAureliano de la cruz RSvetaN.Given KCL LIQUID PO KCl Liquid PO 40 meq (NOW x1)18:29 11/24/2019 Dose: 40 meq Syrup/Liquid POSAureliano de la cruz R.N.Start KCL [IVPB] KCl IVPB 10 meq/879pV63:29 11/24/2019 Dose: 10 meq IVPBSoAureliano lara R.N. Rate: 100 mL/hr---- Dispensed: 100 mL [...] rce(s) Supporting Document(s) ID Date Data Source [id number] 11/24/2019 05:12:00 PM EDT [facility] 1 General Instructions [facility] Emergency Department [address] [place] [address] Phone #: ext- [phone] 11/24/2019 16:57 Patient: NATALIYA BEASLEY Sex: F [...] and water are not available, use alcohol-based vp analysis to keep from spreading the infection to [...] disease, or after a 2 General Instructions [facility] Emergency Department [address] [place] [address] Phone #: ext- [phone] 11/24/2019 16:57 [id number] Sex: F : 1995 Age: 24y stroke) [...] coffee grounds Swollen belly 3 General Instructions [facility] Emergency Department [address] [place] [address] Phone #: ext- [phone] 11/24/2019 16:57 Patient: NATALIYA BEASLEY Sex: F : 1995 Age: 24y Frequent diarrhea (more than 5 times a day); blood (red or black color) or mucus in diarrhea Reduced urine output or extreme thirst Weakness, dizziness or fainting Unusually drowsy or confused Fever of 100.4F (38C) oral or higher, or as directed Yellow color of the eyes or skin [phone] [employer]. [address] [place] [address], [place] [address]. All rights reserved. This information is not [...] can also cause gastritis. 4 General Instructions [facility] Emergency Department [address] [place] [address] Phone #: ext- [phone] 11/24/2019 16:57 Patient: [...] (can't keep down liquids) 5 General Instructions [facility] Emergency Department [address] [place] [address] Phone #: ext- [phone] 11/24/2019 16:57 Patient: NATALIYA BEASLEY Sex: F : 1995 Age: 24y Blood in the stool or vomit (red or black in color) Feeling weak or dizzy Shortness of breath Unexplained weight loss Fever of 100.4F (38C) or higher, or as directed by your healthcare provider [phone] [employer]. [address] [place] [address], [place] [address]. All rights reserved. This information is not [...] fatigue, or muscle cramps 6 General Instructions [facility] Emergency Department [address] [place] [address] Phone #: ext- [phone] 11/24/2019 16:57 Patient: NATALIYA BEASLEY Sex: F : 1995 Age: 24y DizzinessCall 911Call 911 if any of the following occur: Irregular heartbeat, extra beats, or very fast heart rate Loss of consciousness [phone] [employer]. [address] [place] [address], [place] [address]. All rights reserved. This information is not [...] of the following occur: 7 General Instructions [facility] Emergency Department [address] [place] [address] Phone #: ext- [phone] 11/24/2019 16:57 Patient: NATALIYA BEASLEY Sex: F : 1995 Age: 24y Increasing weakness Dizziness Irregular heartbeat, extra beats or very fast heart rate Increasing confusion Fainting or loss of consciousness Seizure [phone] [employer]. [address] [place] [address], [place] [address]. All rights reserved. This information is not intended as asubstitute for professional medical care. Always follow your healthcare professional's instructions. You have been given the following additional information: Vomiting (Adult) Gastritis (Adult) Hypokalemia Hyponatremia(Electronically signed by Ariel Miller M.D. 11/25/2019 00:42) Name Value Range Interpretation Code Description Data Michelle rce(s) Supporting Document(s) ID Date Data Source [id number] 11/24/2019 05:12:00 PM EDT [facility] 1 Clinical Report - Nurses [facility] Emergency Department [address] [place] [address] Phone #: ext- [phone] 11/24/2019 16:57 Patient: NATALIYA BEASLEY Sex: F : 1995 Age: 24yTRIAGEArrived by private vehicle. Historian: family. Accompanied by family. ( went to [place] thursdaywas drinking alcohol and started vomit with lower abd pain).Acuity: LEVEL 3.Chief Complaint: ABDOMINAL PAIN, NAUSEA and VOMITING.Alert. No acute distress.Onset. (last ). The patient has had constipation and abdominal pain. ( muscle spasms in legsand arms, last bm last ).Treatment ON SITE SERVICES SPECIALIST:None.SEPSIS SCREEN: SIRS Screen positive. --17:05 11/24/19 Alexia [...] of CRE. 2 Clinical Report - Nurses [facility] Emergency Department [address] [place] [address] Phone #: ext- [phone] 11/24/2019 16:57 Patient: [...] assessment completed. No skin integrity risk identified. --17:11/24/19 Alexia Kemp R.N. Interventions Identification band on patient. To treatment room. --17:11/24/19 Alexia Kemp R.N.PHYSICAL [id number] 11/24/19. Ambulatory to room.GENERAL / NEURO / [...] ready for evaluation- ED physicianhumberto CLARK notified. --17:11/24/19 Alexia Kemp R.N. 17:11/24/2019 Site #1 started via IV in the right antecubital space with an 20g angiocath, with aseptic technique and good blood return; one attempt. Blood drawn: rainbow set. Labeled in the presence of the patient and sent to the lab. Saline lock flushed with 10 mL saline. --17:11/24/19 Aureliano Fortune R.N. 17:29 11/24/2019 Started bag #1 1000 mL IV Fluids NS; bolus of 1000 mL over 1000 hour(s) then at 1000 mL/hr over 1 hour(s) via site #1 via IV pump. Allergies verified and confirmed 5 rights. IV patency established. IV site checked: no pain, redness, or swelling. IV flushed thoroughly pre- and post-medication 3 Clinical Report - Nurses [facility] Emergency Department [address] [place] [address], [place] [address] Phone #: ext- [phone] 11/24/2019 16:57 Patient: [...] Patient transported to CT by wheelchair with histopath tech. --17:58 11/24/19 Aureliano Fortune, R.N.18:07 11/24/19. Patient returned from CT by wheelchair with histopath tech. --18:12 11/24/19 Aureliano Fortune, R.N.18:14 11/24/19. Critical value relayed by Prema [...] and precautions. Verbalizes understanding. --18:29 11/24/19 Aureliano Fortune, RSvetaN.18:29 11/24/2019 Started 10 meq of KCL IVPB in bag #1 100 mL; at 100 mL/hr via site #1. via IV pump.Allergies verified and confirmed 5 rights. IV patency established. IV site checked: no pain, redness, orswelling. IV flushed thoroughly pre- and post-medication administration. Information reviewed with patientincluding reason for taking this medication, signs of allergic reaction and precautions. Verbalizesunderstanding. --18:29 11/24/19 Aureliano Fortune RSvetaN.18:57 11/24/2019 Protonix IVPB via IV site #1 Discontinued: bag #1 completed. Total amount infused: 100mL. IV patency established. IV site checked: no pain, redness, or swelling. IV flushed thoroughly. --19: Aureliano Fortune, R.N.19:15 11/24/19. Critical value relayed by Pre[facility] (19:15 11/24/2019). Critical value receivedby Edilma La RN (19:15 11/24/2019). Chloride 69. K: 2.4. Critical value read back. Verified lab 4 Clinical Report - Nurses [facility] Emergency Department [address] [place] [address] Phone #: ext- [phone] 11/24/2019 16:57 Patient: NATALIYA BEASLEY Sex: F [...] pain, redness, or swelling. IV flushed thoroughly. --21:11/24/19 Aureliano Fortune R.N.DISPOSITION / DISCHARGE 20:17 11/24/19. [...] Report was acknowledged and care was transferred. --21:11/24/19 Aureliano Fortune R.N. 5 Clinical Report - Nurses [facility] Emergency Department [address] [place] [address] Phone #: ext- [phone] 11/24/2019 16:57 Patient: [...] rce(s) Supporting Document(s) ID Date Data Source [id number] 11/24/2019 05:12:00 PM EDT [facility] 1 Clinical Report - Physicians/Mid Levels [facility] Emergency Department [address] [place] [address] Phone #: ext- [phone] 11/24/2019 16:57 Patient: [...] weekly. 2 Clinical Report - Physicians/Mid Levels [facility] Emergency Department [address] [place] [address] Phone #: ext- [phone] 11/24/2019 16:57 Patient: [...] 1.5) 3 Clinical Report - Physicians/Mid Levels [facility] Emergency Department [address] [place] [address] Phone #: ext- [phone] 11/24/2019 16:57 Patient: NATALIYA BEASLEY Sex: F : 1995 Age: 24y BUN/CREAT 29 H (8 - 27) CALCIUM 10.0 MG/DL (8.4 - 10.2) ANION GAP 16.0 mmol/L (8.0 - 16.0) AGE 24 yrs AFR AMER GFR >60 mL/min NON-AA GFR >60 mL/min Male GFR Interprentation 20-49 yrs >60 mL/min Gwumky22-21 yrs >56 mL/min Normal 60-69 yrs >49 mL/min Normal 70-79yrs>42 mL/min Normal 80 and above >35 mL/min Normal Female GFRInterpretation 20-39 yrs >60 mL/min Normal 40-49 yrs >58 mL/minNormal 50-59 yrs >51 mL/min Normal 60-69 yrs >45 mL/min Rfhwpd60-43 yrs >39 mL/min Normal 80 and above >32 mL/min NormalMagnesium: (ANGELY: 11/24/2019 17:15) ( MsgRcvd 11/24/2019 18:59) Final results Test Result Flag Units (Reference) MAGNESIUM 2.5 H MG/DL (1.7 - 2.2)Magnesium: (ANGELY: 11/24/2019 18:16) ( MsgRcvd 11/24/2019 18:32) CanceledCPK: (ANGELY: 11/24/2019 17:15) ( WvgRcvd 11/24/2019 18:04) Final results Test Result Flag [...] NEGATIVE (NORMAL: NEGAT { KIT LOT # [id number] ){ KIT EXP DATE02.27.21 ){ PROCEDURAL CONTROL [...] 40.0) 4 Clinical Report - Physicians/Mid Levels [facility] Emergency Department [address] [place] [address] Phone #: ext- [phone] 11/24/2019 16:57 Patient: [...] Male GFR Interprentation 20-49 yrs >60 mL/min [id number] yrs >56 mL/min Normal 60-69 yrs >49 mL/min Normal 70-79yrs>42 mL/min Normal 80 and above >35 mL/min Normal Female GFRInterpretation 20-39 yrs >60 mL/min Normal 40-49 yrs >58 mL/minNormal 50-59 yrs >51 mL/min Normal 60-69 yrs >45 mL/min Mvgftw93-52 yrs >39 mL/min Normal 80 and above >32 mL/min NormalLipase: (ANGELY: 11/24/2019 17:15) ( MsgRcvd 11/24/2019 18:04) Final results Test Result Flag Units (Reference) LIPASE 15 U/L (13 - 60) 5 Clinical Report - Physicians/Mid Levels [facility] Emergency Department [address] [place] [address] Phone #: ext- [phone] 11/24/2019 16:57 Patient: NATALIYA BEASLEY Sex: F [...] rce(s) Supporting Document(s) ID Date Data Source [id number] 11/24/2019 08:16:00 PM EDT [facility] Name Value Range Interpretation Code Description Data Michelle rce(s) Supporting Document(s) URINALYSIS [facility]OURCE [facility] yellow NORMAL: Yellow [facility] CLARITY hazy NORMAL: Clear [facility] Ho spital Specific gravity of Urine by Test strip 1.010 1.001 - 1.030 [facility] pH 8 5 - 9 [facility] al Glucose [Mass/volume] in Urine by Test strip NORM NORMAL: Negat [facility] Bilirubin.total [Presence] in Urine by Test strip NEG NORMAL: Negative [facility] Ketones [Presence] in Urine by Test strip 5 NORMAL: Negative [facility] Protein [Mass/volume] in Urine by Test strip 15 NORMAL: Negat [facility] Nitrite [Presence] in Urine by Test strip NEG NORMAL: Negative [facility] BLOOD NEG NORMAL: Negative [facility] Leukocyte esterase [Presence] in Urine by Test strip NEG DAYLIN L: Negative [facility] Urobilinogen [Mass/volume] in Urine by Test strip 1 less tito n 1.0 mg/dL [facility] MICROSCOPIC See Below [facility] ital WBC 3 - 5 NORMAL: NONE SEEN [facility] Erythrocytes [#/volume] in Urine by Test strip 3 - 5 NORMAL: NON E SEEN [facility] EPITHELIAL MODERATE NORMAL: NONE SEEN [facility] Bacteria [Presence] in Urine sediment by Light microscopy 2+ MOD NORMAL: NONE SEEN [facility] Mucus [Presence] in Urine sediment by Light microscopy Trace NORMAL: NONE SEEN [facility] ID Date Data Source [id number] 11/24/2019 07:13:00 PM EDT [facility] Name Value Range Interpretation Code Description Data Michelle rce(s) Supporting Document(s) BASIC METABOLIC PANEL [facility] BASIC METABOLIC PANEL Sodium [Moles/volume] in Serum or Plasma 120 mEq/L 134 - 153 L [facility] Potassium [Moles/volume] in Serum or Plasma 2.4 mEq/L 3.6 - 5.0 LL [facility] CALL/ READ BACK EDILMA IN ED [facility] BY: ROCK [facility] al DATE/TIME [facility] Chloride [Moles/volume] in Serum or Plasma 69 mEq/L 98 - 107 L [facility] CALLED CHLORIDE Carbon dioxide, total [Moles/volume] in Serum or Plasma 35 MEQ/L 22 - 30 H [facility] Glucose [Mass/volume] in Serum or Plasma 113 MG/DL 65 - 110 H [facility] BUN 23 MG/DL 7 - 21 H [facility] al Creatinine [Mass/volume] in Serum or Plasma 0.8 MG/DL 0.7 - 1.5 [facility] BUN/CREAT 29 8 - 27 H [facility] Calcium [Mass/volume] in Serum or Plasma 10.0 MG/DL 8.4 - 10.2 [facility] Anion gap 3 in Serum or Plasma 16.0 mmol/L 8.0 - 16.0 [facility] AGE 24 yrs [facility] AFR AMER GFR >60 mL/min [facility] Ho spital NON-AA GFR >60 mL/min [facility] Male GFR Inter prentation 20-49 yrs >60 [...] >32 mL/min Normal ID Date Data Source [id number] 11/24/2019 06:59:00 PM EDT [facility] Name Value Range Interpretation Code Description Data Michelle rce(s) Supporting Document(s) Magnesium [Mass/volume] in Serum or Plasma 2.5 MG/DL 1.7 - 2.2 H [facility] ID Date Data Source [id number] 11/24/2019 06:14:00 PM EDT [facility] Name Value Range Interpretation Code Description Data Michelle rce(s) Supporting Document(s) COMPREHENSIVE METABOLIC PANEL [facility] COMPREHENSIVE METABOLIC PANEL Sodium [Moles/volume] in Serum or Plasma 122 mEq/L 134 - 153 L [facility] Potassium [Moles/volume] in Serum or Plasma 2.2 mEq/L 3.6 - 5.0 LL [facility] CALL/ READ BACK EDILMA IN ED [facility] BY: [facility] ital Chloride [Moles/volume] in Serum or Plasma <68 mEq/L 98 - 107 L [facility] CHLORIDE RESULT CALLED [facility] Carbon dioxide, total [Moles/volume] in Serum or Plasma 35 MEQ/L 22 - 30 H [facility] Glucose [Mass/volume] in Serum or Plasma 132 MG/DL 65 - 110 H [facility] BUN 26 MG/DL 7 - 21 H [facility] al Creatinine [Mass/volume] in Serum or Plasma 0.8 MG/DL 0.7 - 1.5 [facility] BUN/CREAT 33 8 - 27 H [facility] Protein [Mass/volume] in Serum or Plasma 8.7 G/DL 6.3 - 8.2 H [facility] Albumin [Mass/volume] in Serum or Plasma 5.4 G/DL 3.9 - 5.0 H [facility] Globulin [Mass/volume] in Serum by calculation 3.3 GM/DL 2.4 - 3.2 H [facility] A/G RATIO 1.6 0.8 - 2.0 [facility] Calcium [Mass/volume] in Serum or Plasma 10.5 MG/DL 8.4 - 10.2 H [facility] Bilirubin.total [Mass/volume] in Serum or Plasma 2.1 MG/DL 0.2 - 1.3 H [facility] Alkaline phosphatase [Enzymatic activity/volume] in Serum or Plasma 93 U/L 38 - 126 [facility] Aspartate aminotransferase [Enzymatic activity/volume] in Serum or Plasma 37 U/L 5 - 40 [facility] [facility] aminotransferase [Enzymatic activity/volume] in Seru m or Plasma 36 U/L 7 - 56 [facility] Anion gap 3 in Serum or Plasma 19.0 mmol/L 8.0 - 16.0 H [facility] AGE 24 yrs [facility] Hospit al NON-AA GFR >60 mL/min [facility] Hosp ital AFR AMER GFR >60 mL/min [facility] Ho spital Male GFR In [...] >32 mL/min Normal ID Date Data Source [id number] 11/24/2019 06:06:00 PM EDT [facility] Name Value Range Interpretation Code Description Data Michelle rce(s) Supporting Document(s) CBC W/AUTOMATED DIFF [facility] COMPLETE BLOOD COUNT Leukocytes [#/volume] in Blood by Automated count 17.0 10^3/uL 4.2 - 11.0 [facility] Erythrocytes [#/volume] in Blood by Automated count 5.64 10^6/uL 4. 20 - 5.40 H [facility] Hemoglobin [Mass/volume] in Blood 17.8 g/dL 12.0 - 16.0 H [facility] Hematocrit [Volume Fraction] of Blood by Automated count 47.8 % 3 7.0 - 47.0 H [facility] Erythrocyte mean corpuscular volume [Entitic volume] by Auto mated count 84.8 fL 81.0 - 101 [facility] Erythrocyte mean corpuscular hemoglobin [Entitic mass] by Automated count 31.6 pg 27.0 - 34.0 [facility] Erythrocyte mean corpuscular hemoglobin concentration [Mass/volume] by Automated count 37.2 g/dL 31.0 - 36.0 H [facility] Erythrocyte distribution width [Ratio] by Automated count 11.8 % 11.5 - 14.5 [facility] Platelets [#/volume] in Blood by Automated count 324 10^3/uL 150 - 45 0 [facility] Platelet mean volume [Entitic volume] in Blood by Automated count 10.2 fL 7.4 - 10.4 [facility] Neutrophils/100 leukocytes in Blood by Automated count 79.6 % 37. 0 - 80.0 [facility] Lymphocytes/100 leukocytes in Blood by Manual count 11.8 % 25.0 - 40.0 L [facility] Monocytes/100 leukocytes in Blood by Automated count 7.4 % 3.0 - 8.0 [facility] Eosinophils/100 leukocytes in Blood by Automated count 0.1 % 0.0 - 7.0 [facility] Basophils/100 leukocytes in Blood by Automated count 0.2 % 0.0 - 2.5 [facility] %IG 0.9 % 0.0 - 0.0 H [facility] al %NRBC 0.0 % 0.0 - 0.0 [facility] al Neutrophils [#/volume] in Blood by Automated count 13.56 10^3/uL 2. 00 - 6.90 H [facility] Lymphocytes [#/volume] in Blood by Automated count 2.01 10^3/uL 0.60 - 3.40 [facility] Monocytes [#/volume] in Blood by Automated count 1.26 10^3/uL 0.00 - 0.90 H [facility] Eosinophils [#/volume] in Blood by Automated count 0.01 10^3/uL 0.00 - 0.70 [facility] Basophils [#/volume] in Blood by Automated count 0.04 10^3/uL 0.00 - 0.20 [facility] #IG 0.15 10^3/uL 0.00 - 0.10 H [facility] H ospital #NRBC 0.00 10^3/uL 0.00 - 0.00 [facility] ospital MANUAL DIFF SEE BELOW [facility] ital Segmented neutrophils/100 leukocytes in Blood by Manual count 77 % 37 - 80 [facility] %LYMPH 12 % 25 - 40 L [facility] Hospit al %MONO 11 % 3 [facility] [address] [facility] MORPH MORPH IS NORMAL [facility] ID Date Data Source [id number] 11/24/2019 06:04:00 PM EDT [facility] Name Value Range Interpretation Code Description Data Michelle rce(s) Supporting Document(s) Creatine kinase [Enzymatic activity/volume] in Serum or Plasma 3 21 U/L 30 - 170 H [facility] ID Date Data Source [id number] 11/24/2019 06:04:00 PM EDT [facility] Name Value Range Interpretation Code Description Data Michelle rce(s) Supporting Document(s) Lipase [Enzymatic activity/volume] in Serum or Plasma 15 U/L 13 - 60 [facility] ID Date Data Source [id number] 11/24/2019 05:49:00 PM EDT [facility] Value Range Interpretation Code Description Data Michelle rce(s) Supporting Document(s) HCG SERUM QUAL NEGATIVE NORMAL: NEGATIVE [facility] HCG SERUM QL REENTER NEGATIVE NORMAL: NEGATIVE [facility] { KIT LOT # [id number] ){ KIT EXP DATE 02.27.21 ){ PROCEDURAL CONTROL VALID ) Procedure Vital Signs ID Date Data Source [id number] 12/30/2019 12:40:05 PM EDT [facility] Value Range Interpretation Code Description Data Source(s) WEIGHT RECORDED 138.00 pounds 138.00 pounds [facility] Height 63 Inches 063 Inches [facility] ID Date Data Source [id number] 12/26/2019 05:03:00 PM EDT [facility] Value Range Interpretation Code Description Data Source(s) WEIGHT RECORDED 136.90 pounds 136.90 pounds [facility] Height 62 Inches 062 Inches [facility] ID Date Data Source [id number] 12/26/2019 05:02:58 PM EDT [facility] Value Range Interpretation Code Description Data Source(s) WEIGHT RECORDED 133.90 pounds 133.90 pounds [facility] Height 62 Inches 062 Inches [facility]
--- OUTSIDE RECORDS SUMMARY | 2020-07-03 16:56 | CCD ---
Author Author [facility] Organization [facility] Address Unknown Phone Unavailable Care Team Providers Care Chief Cruiser Name Role Phone TURRIN, LEENA Unavailable Unavailable [...] PA-C Unavailable Unavailable Srinath Falanga, A Sarah LATHE WINDER Unavailable Unavailable Srinath Falanga, A Sarah LATHE WINDER Unavailable Unavailable [place] Falanga, A Sarah LATHE WINDER Unavailable Unavailable Srinath Falanga, A Sarah LATHE WINDER Unavailable Unavailable [place] Falanga, A Sarah LATHE WINDER Unavailable Unavailable Srinath Falanga, A Sarah LATHE WINDER Unavailable Unavailable Srinath Falanga, A Sarah LATHE WINDER Unavailable Unavailable Srinath Falanga, A Sarah LATHE WINDER Unavailable Unavailable Srinath Falanga, A Sarah LATHE WINDER Unavailable Unavailable Srinath Falanga, A Sarah LATHE WINDER Unavailable Unavailable Srinath Falanga, A Sarah LATHE WINDER Unavailable Unavailable [place] Falanga, A Sarah LATHE WINDER Unavailable Unavailable [place] Falanga, A Sarah LATHE WINDER Unavailable Unavailable [place] Falanga, A Sarah LATHE WINDER Unavailable Unavailable [place] Falanga, A Sarah LATHE WINDER Unavailable Unavailable Srinath Falanga, A Sarah LATHE WINDER Unavailable Unavailable [place] Falanga, A Sarah LATHE WINDER Unavailable Unavailable Srinath Falanga, A Sarah LATHE WINDER Unavailable Unavailable Srinath Falanga, A Sarah LATHE WINDER Unavailable Unavailable Srinath Falanga, A Sarah LATHE WINDER Unavailable Unavailable [place] Falanga, A Sarah LATHE WINDER Unavailable Unavailable Srinath Falanga, A Sarah LATHE WINDER Unavailable Unavailable [place] Falanga, A Sarah LATHE WINDER Unavailable Unavailable Srinath Falanga, A Sarah LATHE WINDER Unavailable Unavailable Srinath Falanga, A Sarah LATHE WINDER Unavailable Unavailable [place] Falanga, A Sarah LATHE WINDER Unavailable Unavailable Srinath Falanga, A Sarah LATHE WINDER Unavailable Unavailable [place] Falanga, A Sarah LATHE WINDER Unavailable Unavailable [place] Falanga, A Sarah LATHE WINDER Unavailable Unavailable Srinath Falanga, A Sarah LATHE WINDER Unavailable Unavailable ARIEL MILLER MD Unavailable Unavailable [...] YAQUELINGeorge HUTCHISON MD Unavailable Unavailable Flori Dumontandra LATHE WINDER LATHE WINDER Unavailable Unavailable Juan A MCKEON MD Unavailable Unavailable Juan A MCKEON MD Unavailable Unavailable Juan A MCKEON MD Unavailable Unavailable Juan A MCKEON MD Unavailable Unavailable Juan A MCKEON MD Unavailable Unavailable Juan A MCKEON MD Unavailable Unavailable Juan A MCKEON MD Unavailable Unavailable Juan A MCKEON MD Unavailable Unavailable Juan A MCKEON MD Unavailable Unavailable Tim, A Ranjana LATHE WINDER Unavailable Unavailable Tim, A Ranjana LATHE WINDER Unavailable Unavailable Tim, A Ranjana LATHE WINDER Unavailable Unavailable Tim, A Ranjana LATHE WINDER Unavailable Unavailable Tim, A Ranjana LATHE WINDER Unavailable Unavailable Tim, A Ranjana LATHE WINDER Unavailable Unavailable Tim, A Ranjana LATHE WINDER Unavailable Unavailable Tim, A Ranjana LATHE WINDER Unavailable Unavailable Tim, A Ranjana LATHE WINDER Unavailable Unavailable Tim, A Ranjana LATHE WINDER Unavailable Unavailable Tim, A Ranjana LATHE WINDER Unavailable Unavailable Tim, A Ranjana LATHE WINDER Unavailable Unavailable Tim, A Ranjana LATHE WINDER Unavailable Unavailable Tim, A Ranjana LATHE WINDER Unavailable Unavailable Tim, A Ranjana LATHE WINDER Unavailable Unavailable Tim, A Ranjana LATHE WINDER Unavailable Unavailable Tim, A Ranjana LATHE WINDER Unavailable Unavailable Tim, A Ranjana LATHE WINDER Unavailable Unavailable Tim, A Ranjana LATHE WINDER Unavailable Unavailable Tim, A Ranjana LATHE WINDER Unavailable Unavailable Tim, A Ranjana LATHE WINDER Unavailable Unavailable Tim, A Ranjana LATHE WINDER Unavailable Unavailable Tim, A Ranjana LATHE WINDER Unavailable Unavailable Tim, A Ranjana LATHE WINDER Unavailable Unavailable Tmi, A Ranjana LATHE WINDER Unavailable Unavailable Tim, A Ranjana LATHE WINDER Unavailable Unavailable Tim, A Ranjana LATHE WINDER Unavailable Unavailable Tim, A Ranjana LATHE WINDER Unavailable Unavailable Re-disclosure Warning The records that [...] is protected by Article 27-F of the [facility] Public Health law. If you continue you may have access to information: Regarding HIV / AIDS; Provided by facilities licensed or operated by the [facility] Office of Mental Health; or Provided by the [facility] Office for People With Developmental Disabilities. If such information is present, then the following [facility] mandated warning applies: This information has [...] law may result in a fine or retirement sentence or both. A general authorization for the release of medical or other information is NOT sufficient authorization for further disc losure. Allergies and Adverse Reactions Type Description Substance Reaction Status Data Source(s ) Food allergy LACTOSE LACTOSE [facility] CLASS SULFA (sulfonamide) SULFA (sulfonamide) HIVES [facility] No Known Drug Allergies No Known Drug Allergies [facility] Encounters Encounter Providers Location Date Indications Data Source(s ) Emergency Attender: Yang Melendrez PA-CConsultant: Miles Walls MD 04/03/2020 04:26:00 PM EST - 04/03/2020 09:15:[address] [facility] Patient discharged. Outpatient Attender: JADEN Dumont [facility] 02/27/2020 12:19:[address] [facility] Outpatient Attender: Sarah moran FNPAttender: DAYLIN JAMISON MDConsultant: Miles Collazo MD 02/16/2020 04:43:00 PM ED T - 02/17/2020 12:40:00 PM T [facility] Patient discharged. Outpatient Attender: Ranjana Dumont [facility] 01/26/2020 02:5 0:[address] [facility] Outpatient Attender: JADEN Dumont [facility] 01/26/2020 02:46:[address] [facility] 05:19:[address] [facility] Outpatient Attender: Ranjana Dumont [facility] 01/22/2020 03:1 0:[address] [facility]: [facility] 01/22/2020 03:10:[address] [facility] Outpatient Attender: Ranjana Dumont [facility] 01/22/2020 03:0 9:[address] [facility]: [facility] 01/22/2020 03:09:[address] [facility] Outpatient Attender: JADEN PRITCHETT 01/19/2020 09:13:[address] [facility] Outpatient Attender: JADEN PRITCHETT 01/19/2020 09:07:[address] [facility] Outpatient Attender: Sarah moran FNPAttender: LEENA MARTÍNEZConsultant: Miles Collazo MD 12/26/2019 10:59:00 A M EDT - 12/27/2019 04:25:00 PM EDT [facility] Patient discharged. Outpatient Attender: SIMIN MULLER MDAtt akosua: FER MCKEON MDConsultant: Miles Collazo MD 12/09/2019 12:55:00 PM EDT - 12/11/2019 03:40:00 PM EDT [facility] Patient discharged. Emergency Attender: LEENA Poncesultant: Miles Collazo MD 12/07/2019 06:58:00 PM EDT - 12/07/2019 09:23:00 PM EDT [facility] Patient discharged. Outpatient Attender: Sarah moran FNPAttender: ARIEL MILLER MDConsultant: Miles Collazo MD 11/24/2019 05:12:00 PM ED T - 11/26/2019 01:05:00 PM EDT [facility] Patient discharged. Outpatient 11/04/2019 05:40:00 AM EDT [facility] Outpatient Attender: JADEN STANLEY FP 10/15/2019 12:14:[address] [facility] Outpatient 10/12/2019 05:16:00 AM EDT [facility] Outpatient 09/14/2019 05:58:00 AM EDT [facility] Outpatient Attender: JADEN STANLEY FP 09/09/2019 11:10:[address] [facility] Outpatient Attender: JADEN STANLEY FP 09/07/2019 09:02:[address] [facility] Outpatient 05/27/2019 06:22:00 AM EST [facility] Outpatient Attender: JADEN PRITCHETT [...] relationship to simons Policy Simons Plan Information [facility] PLAN [facility] [id number] SP [id number] [facility] O [id number] S [id number] [facility] PLAN [facility] [id number] SP [id number] [facility] [id number] SP [id number] [facility] O [id number] S [id number] [facility] COMM[facility] PLAN XIX [id number] 18 [id number] Medicaid S [id number] S [id number] Managed Care - [facility] Community Plan P [id number] S [id number] Medicaid S [id number] S [id number] [facility] PL[facility] XIX [id number] 18 [id number] UN AMERICHOICE XIX HMO [id number] Managed Care - [facility] Community Plan P [id number] S [id number] Self Pay P UNAVAILABLE S UNAVAILA BLE [facility] [id number] SP [id number] [facility] O [id number] S [id number] Managed Care - Community Plan [facility] P [id number] S [id number] Medicaid S [id number] S [id number] [facility] PLAN [facility] [id number] SP [id number] [facility] [id number] 18 [id number] MEDICAID - CLINIC [id number] Problems, Conditions, and Diagnoses Code Display Name Description Problem Type Effective Dates Data Source(s) N3001 Acute cystitis with hematuria Acute cystitis with armani turia Diagnosis 04/03/2020 04:26:[address] [facility] R1084 Generalized abdominal pain Generalized abdominal pain Diagnosis 04/03/2020 04:26:[address] [facility] F1010 Alcohol abuse, uncomplicated Alcohol abuse, uncomplica parminder Diagnosis 02/16/2020 04:43:00 PM EDT [facility] R04496 Nicotine dependence, cigarettes, uncompl icated Nicotine dependence, cigarettes, uncomplicated Diagnosis 02/16/2020 04:43:00 PM EDT [facility] F1220 Cannabis dependence, uncomplicated Cannabis depe ndence, uncomplicated Diagnosis 02/16/2020 04:43:00 PM EDT [facility] E860 Dehydration Dehydration Diagnosis 02/16/2020 04:43:00 PM EDT [facility] R1110 Vomiting, unspecified Vomiting, unspecified Diagnosis 02/16/2020 04:43:00 PM EDT [facility] E876 Hypokalemia Hypokalemia Diagnosis 02/16/2020 04:43:00 PM EDT [facility] E8342 Hypomagnesemia Hypomagnesemia Diagnosis 02/16/2020 04:43: 00 PM EDT [facility] E871 Hypo-osmolality and hyponatremia Hypo-osmolality and hyponatremia Diagnosis 12/26/2019 10:59:00 AM EDT [facility] 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 Diagnosis 12/07/2019 06:58:00 PM EDT [facility] R112 Nausea with vomiting, unspecified Nausea with vo miting, unspecified Diagnosis 12/07/2019 06:58:00 PM EDT [facility] R1115 Cyclical vomiting syndrome unrelated to migraine Cyclical vomiting syndrome unrelated to migraine Diagnosis 11/24/2019 05:12:00 PM EDT [facility] Results ID Date Data Source [id number] 06/15/2020 10:22:00 PM [facility] Name Value Range Interpretation Code Description Data Michelle rce(s) Supporting Document(s) SARS coronavirus 2 RNA [Presence] in Res piratory specimen by ANTONIO with probe detection NEGATIVE NYSDSC This lab was ordered by [facility] a nd reported by [facility]. ID Date Data Source [id number] 04/04/2020 01:12:00 PM [facility] [address] [place] [address] PHONE: [phone] FAX: [phone] Name .................. : RITTER NATALIYA Martinez Acct Number.................. : [id number] ROOM. ................. : TR-03 MR Number ................... : [id number] Stay type ............. : E/R Discharge Date......... ... : Admit Date ......... : 04/03/20 Admit Phys .................... : PARVIN CHANTEL Date of ....... : 1995 Family Phys ................... : [employer] Phone .................. : [phone] Age ................................ : 24 Film# .................. .:[id number] Sex ................................. : F Unsigned transcriptions are preliminary reports and do not represent a medical or legal document CT ABD & PELVIS W/ IV ONLY [id number] COMPLETE:04/03/20 17:49 [id number] Reason(s): Abdominal Pain CT OF THE ABDOMEN [...] imperative reconstructive techniques. Page 1 of [address] [place] [address] PHONE: [phone] FAX: [phone] Name .................. : RITTER AN Juan Acct Number.................. : [id number] ROOM. ................. : TR-03 MR Number ................... : [id number] Stay type ............. : E/R Discharge Date......... ... : Admit Date ......... : 04/03/20 Admit Phys ... ................. : PARVIN [facility] Date of ....... : 1995 Family Phys ................... : [employer] Phone .................. : [phone] Age ................................ : 24 Film# .................. .:[id number] Sex ................................. : F Unsigned transcriptions are preliminary reports and do not represent a medical or legal document CT ABD & PELVIS W/ IV ONLY [id number] COMPLETE:04/03/20 17:49 67501 Reason(s): Abdominal Pain CT dose: 533 mGycm [...] rce(s) Supporting Document(s) ID Date Data Source [id number] 04/03/2020 04:26:00 PM EST [facility] 1 OrderSheet [facility] Emergency Department [address] [place] [address] Phone #: ext- [phone] 04/03/2020 16:19 Patient: [...] Imtiaz Wiseman R.N.(Oxygen?(No)) P.A.- C;(IV?(Yes)) 2 OrderSheet [facility] Emergency Department [address] [place] [address] Phone #: ext- [phone] 04/03/2020 16:19 Patient: [...] rce(s) Supporting Document(s) ID Date Data Source [id number] 04/03/2020 04:26:00 PM EST [facility] 1 Medication Reconciliation Report [facility] Emergency Department [address] [place] [address] Phone #: ext- [phone] 04/03/2020 16:19 Patient: [...] Dispense 14 capsule. Refills: 0.Substitution permitted.Pharmacy - [email or web address] [place] [address]. .Zofran 4 mg tablet Take 1 tablet three times a day for 4 days -- Dispense 12 tablet. Refills: 0.Substitution permitted. 2 Medication Reconciliation Report [facility] Emergency Department [address] [place] [address] Phone #: ext- [phone] 04/03/2020 16:19 Patient: NATALIYA BEASLEY Sex: F : 1995 Age: 24yPharmacy - [email or web address] - [address] [facility] ; [place] [address]. . -- Imtiaz España P.A.-C Name Value Range Interpretation Code Description Data Michelle rce(s) Supporting Document(s) ID Date Data Source [id number] 04/03/2020 04:26:00 PM EST [facility] 1 Medication Administration Record [facility] Emergency Department [address] [place] [address] Phone #: ext- [phone] 04/03/2020 16:19 Patient: [...] ACStart ROCEPHIN (1GM/50ML) [IVPB] Rocephin (1gm/50mL) IVPB [id number] 04/03/2020 (CEFTRIAXONE SODIUM) mg with Dextrose 50 ml spike Zakiya Dougherty, R.N. Dose: 1 gm IVPB (D5W)---- Rate: 100 mL/hr over 30 minute(s)Stop Bolus: 1 gm wide open20:54 04/03/2020 Dispensed: 50 mL Zakiya Dougherty, R.N. Site: #1 left AC Name Value Range Interpretation Code Description Data Michelle rce(s) Supporting Document(s) ID Date Data Source [id number] 04/03/2020 04:26:00 PM EST [facility] 1 General Instructions [facility] Emergency Department [address] [place] [address] Phone #: ext- [phone] 04/03/2020 16:19 Patient: [...] would like. [facility] and is aware of your conditions.).Warnings: Further evaluation is necessary.GENERAL WARNINGS: Return or contact your physician immediately if your condition worsens orchanges unexpectedly, if not improving as expected, or if other problems arise.Your Current Medications: .No home medication.Prescription Medications:Macrobid 100 mg capsule Take 1 capsule twice a day for 7 days -- Dispense 14 capsule. Refills: 0.Substitution permitted.[facility] [address] [place] [address]. .Zofran 4 mg tablet Take 1 tablet three times a day for 4 days -- Dispense 12 tablet. Refills: 0.Substitution permitted.[facility] [address] [place] [address]. .Follow-up:Return to the emergency department as needed. Follow up with your healthcare provider in about twodays if not better. Call for an appointment.Understanding of the discharge instructions verbalized by patient. 2 General Instructions [facility] Emergency Department [address] [place] [address] Phone #: ext- [phone] 04/03/2020 16:19 - Patient: NATALIYA BEASLEY Sex: F : 1995 Age: 24yFollow-up with: Shabbir Addison MD, Gastroenterology, [id number], [facility],[address] [place] [address], [address], [place], [address] Follow up. Call for the next available appointment. Reason for referral: evaluation and treatment.Follow-up with: [facility], , , [address] [place] [address], [address] Follow up. Call for the next available [...] be constant. Other common 3 General Instructions [facility] Emergency Department [address] [place] [address] Phone #: ext- [phone] 04/03/2020 16:19 Patient: [...] to improve in the 4 General Instructions [facility] Emergency Department [address] [place] [address] Phone #: ext- [phone] 04/03/2020 16:19 Patient: [...] or water and you are getting dehydrated [phone] [employer]. [address] [place] [address]. All rights reserved. This information is not intended as asubstitute for professional medical care. Always follow your healthcare professional's instructions.Bladder Infection, Female (Adult) 5 General Instructions [facility] Emergency Department [address] [place] [address] Phone #: ext- [phone] 04/03/2020 16:19 Patient: [...] above the pubic bone. 6 General Instructions [facility] Emergency Department [address] [place] [address] Phone #: ext- [phone] 04/03/2020 16:19 Patient: [...] more serious kidney infection.Medicines 7 General Instructions [facility] Emergency Department [address] [place] [address] Phone #: ext- [phone] 04/03/2020 16:19 Patient: [...] will affect your treatment. 8 General Instructions [facility] Emergency Department [address] [place] [address] Phone #: ext- [phone] 04/03/2020 16:19 Patient: [...] swelling in the outer vaginal area (labia) [phone] [employer]. [address] [place] [address]. All rights reserved. This information is not intended as asubstitute for professional medical care. Always follow your healthcare professional's instructions.Blood in the Urine 9 General Instructions [facility] Emergency Department [address] [place] [address] Phone #: ext- [phone] 04/03/2020 16:19 Patient: [...] had blood in your 10 General Instructions [facility] Emergency Department [address] [place] [address] Phone #: [phone] rrx- [phone] 04/03/2020 16:19 Patient: NATALIYA BEASLEY Sex: F [...] the nose or gums or easy bruising [id number] [employer]. [address] [place] [address]. All rights reserved. This information is not [...] rce(s) Supporting Document(s) ID Date Data Source [id number] 04/03/2020 04:26:00 PM EST [facility] 1 Clinical Report - Nurses [facility] Emergency Department [address] [place] [address] Phone #: [phone]- [phone] 04/03/2020 16:19 Patient: NATALIYA BEASLEY Sex: F [...] no deficiencies. 2 Clinical Report - Nurses [facility] Emergency Department [address] [place] [address] Phone #: ext- [phone] 04/03/2020 16:19 ----- [id number] Sex: F : 1995 Age: 24y FUNCTIONAL [...] Sheets R.N. 3 Clinical Report - Nurses [facility] Emergency Department [address] [place] [address] Phone #: ext- [phone] 04/03/2020 16:19 Patient: [...] RR: 18. O2 saturation: 100%. --17:24 04/03/20 Ivoen Sheets R.N.Patient gowned. Reassurance given. Reassessment after [...] patient. Verbalizes 4 Clinical Report - Nurses [facility] Emergency Department [address] [place] [address] Phone #: ext- [phone] 04/03/2020 16:19 Patient: NATALIYA BEASLEY Sex: F : 1995 Age: 24y understanding. --19:56 04/03/20 Zakiya Quiles R.N. 19:56 04/03/20. BP: 137/72. MAP: 93. HR: 70. RR: 18. O2 saturation: 99% on room air. --19:57 04/03/20 Zakiya Quiles R.N. The patient is calm and resting quietly. Patient returned from CT by wheelchair with mask and dental equipment technician. --19:57 04/03/20 Zakiya Quiles R.N. 20:36 [...] pharmacy. Reviewed referral to a surgeon and scaler. Work note given. Patient verbalized understanding. Written instructions provided in [place]. The patient was discharged by the physician veterinarian assistant. She was discharged home and accompanied [...] rce(s) Supporting Document(s) ID Date Data Source [id number] 04/03/2020 04:26:00 PM EST [facility] 1 Clinical Report - Physicians/Mid Levels [facility] Emergency Department [address] [place] [address] Phone #: ext- [phone] 04/03/2020 16:19 Patient: [...] ears. 2 Clinical Report - Physicians/Martha Messina [facility] Emergency Department [address] [place] [address] Phone #: ext- [phone] 04/03/2020 16:19 Patient: NATALIYA BEASLEY [facility]#: [id number] Sex: F : 1995 Age: 24y Tympanostomy [...] 3 Clinical Report - Physicia ns/Mid Levels [facility] Emergency Department [address] [place] [address] Phone #: ext- [phone] 04/03/2020 16:19 Patient: [...] Male GFR Interprentation 20-49 yrs >60 mL/min [place]87-46 yrs >56 mL/min Normal 60-69 yrs >49 mL/min Normal 70-79yrs 4 Clinical Report - Physicians/Mid Levels [facility] Emergency Department [address] [place] [address] Phone #: ext- [phone] 04/03/2020 16:19 Patient: [...] NONE Lactic Acid: (ANGELY: 04/03/2020 16:45) ( MdgRcvd 04/03/2020 17:23) Final results Test Result Flag Units (Reference) LACTIC ACID 1.6 MMOL/L (0.2 - 2.2) Beta-HCG, Qual Serum: (ANGELY: 04/03/2020 16:45) ( MdgRcvd 04/03/2020 17:27) Final results Test Result Flag Units (Reference) HCG SERUM QUAL NEGATIVE (NORMAL: NEGAT HCG SERUM QL REENTER NEGATIVE (NORMAL: NEGAT { KIT LOT # [id number] ){ KIT EXP DATE 02.20.21 ){ PROCEDURAL CONTROL VALID ) Magnesium: (ANGELY: 04/03/2020 16:45) ( [facility] 04/03/2020 17:33) Final results Test Result Flag Units (Reference) MAGNESIUM 1.8 MG/DL (1.7 - 2.2). 5 Clinical Report - Physicians/Mid Levels [facility] Emergency Department [address] [place] [address] Phone #: ext- [phone] 04/03/2020 16:19 Patient: NATALIYA BEASLEY Sex: F [...] weight. 6 Clinical Report - Physicians/Mid Levels [facility] Emergency Department [address] [place] [address] Phone #: ext- [phone] 04/03/2020 16:19 Patient: [...] weight. I have provided infomration on [address] [facility] surgeons for you to choose whom you would like. I did consult the surgeon at [facility] though and is aware of your conditions.). [...] Dispense 14 capsule. Refills: 0. Substitution permitted. [facility] [address] [place] [address]. . Zofran 4 mg tablet Take 1 tablet three times a day for 4 days -- Dispense 12 tablet. Refills: 0. Substitution permitted. [facility] [address] [place] [address]. . Follow-up: Return to the emergency department as needed. Follow up with your healthcare provider in about two days if not better. Call for an appointment. Understanding of the discharge instructions verbalized by patient. 7 Clinical Report - Physicians/Mid Levels [facility] Emergency Department [address] [place] [address] Phone #: ext- [phone] 04/03/2020 16:19 Patient: NATALIYA BEASLEY Sex: F : 1995 Age: 24y Follow-up with: Shabbir Addison MD, Gastroenterology, [id number], [facility], [address] [place] [address], [address], [place], [address] Follow up. Call for the next available appointment. Reason for referral: evaluation and treatment. Follow-up with: [facility], , , [address] [place] [address], Formerly [facility] Follow up. Call for the next available appointment. Reason for referral: evaluation and treatment.(Electronically signed by Imtiaz España P.A.-C 04/03/2020 21:42) Name Value Range Interpretation Code Description Data Michelle e(s) Supporting Document(s) ID Date Data Source [id number] 04/03/2020 05:43:00 PM EST [facility] Name Value Range Interpretation Code Description Data [facility](s) Supporting Document(s) URINALYSIS [facility] URINALYSIS SOURCE R [facility] COLOR yellow NORMAL: Yellow [facility] CLARITY hazy NORMAL: Clear [facility] Specific gravity of Urine by Test strip 1.020 1.001 - 1.030 [facility] pH 6 5 - 9 [facility] Gl[facility] [Mass/volume] in Urine by Test strip NORM NORMAL: Negat judy [facility] Bilirubin.total [Presence] in Urine by Test strip NEG NORMAL: Negative [facility] Ketones [Presence] in Urine by Test strip 50 NORMAL: Negative [facility] Protein [Mass/volume] in Urine by Test strip 30 NORMAL: Negat judy [facility] Nitrite [Presence] in Urine by Test strip NEG NORMAL: Negative [facility] BLOOD 10 NORMAL: Negative [facility] Leukocyte esterase [Presence] in Urine by Test strip NEG DAYLIN L: Negative [facility] Urobilinogen [Mass/volume] in Urine by Test strip 1 less tito n 1.0 mg/dL [facility] MICROSCOPIC See Below [facility] ital WBC 3 - 5 NORMAL: NONE SEEN [facility] Erythrocytes [#/volume] in Urine by Test strip 1 - 3 NORMAL: NON E SEEN [facility] EPITHELIAL MODERATE NORMAL: NONE SEEN A [facility] Bacteria [Presence] in Urine sediment by Light microscopy Tr laura NORMAL: NONE SEEN [facility] Mucus [Presence] in Urine sediment by Light microscopy 2+ NOR MAL: NONE SEEN A [facility] Amorphous sediment [Presence] in Urine sediment by Light chelsey roscopy 2+ NORMAL: NONE SEEN [facility] ID Date Data Source [id number] 04/07/2020 09:15:00 PM EST [facility] Name Value Range Interpretation Code Description Data Michelle rce(s) Supporting Document(s) CULTURE URINE [facility] spital _CULTURE URINE_$$[id number]$$[id number]$$010825$$788927$$190982$$175554$$936731$$644543$$922823$$ 016850$$028668$$446296$$624112$$459155$$759909$$843669$$679379$$128280$$930798$$ 221146$$308961$$773072$$411309$$871574$$373813$$840776$$604025 -- Continued on next page --Patient: RITTER NATALIYA Martinez Order: Page 2Culture: CULTURE URINE Status: Final ==== -- Continued on next page --Patient: RITTER NATALIYA Martinez Order: 2Culture: CULTURE URINE Status: Prelim =====$$[id number]$$[id number] DATE/TIME: 04/07/2020 13:06Culture: CULTURE URINE Status: FinalUrine Culture,Comprehensive: P1No growth in 36 - 48 hours. Previous result entered on 04/06/2020 03:16 ET No growth after 18-24 hours.P1 Test performed by: [facility] #: [id number] [address] [place] [address] Avenue [id number] [facility] [address]Medical Director : Abhilash Hilario MD NPI #:Lab Di louis : 04/06/20.0654.XMT.SENT REF 04/07/20.2115.XMT.SENT REF ID Date Data Source [id number] 04/03/2020 05:36:00 PM EST [facility] Name Value Range Interpretation Code Description Data Michelle rce(s) Supporting Document(s) COMPREHENSIVE METABOLIC PANEL [facility] COMPREHENSIVE METABOLIC PANEL Sodium [Moles/volume] in Serum or Plasma 139 mEq/L 134 - 153 [facility] Potassium [Moles/volume] in Serum or Plasma 3.5 mEq/L 3.6 - 5.0 L [facility] Chloride [Moles/volume] in Serum or Plasma 100 mEq/L 98 - 107 [facility] Carbon dioxide, total [Moles/volume] in Serum or Plasma 29 MEQ/L 22 - 30 [facility] Glucose [Mass/volume] in Serum or Plasma 139 MG/DL 65 - 110 H [facility] BUN 11 MG/DL 7 - 21 [facility] al Creatinine [Mass/volume] in Serum or Plasma 0.5 MG/DL 0.7 - 1.5 L [facility] BUN/CREAT 22 8 - 27 [facility] Protein [Mass/volume] in Serum or Plasma 7.7 G/DL 6.3 - 8.2 [facility] Albumin [Mass/volume] in Serum or Plasma 4.9 G/DL 3.9 - 5.0 [facility] Globulin [Mass/volume] in Serum by calculation 2.8 GM/DL 2.4 - 3.2 [facility] A/G RATIO 1.8 0.8 - 2.0 [facility] Calcium [Mass/volume] in Serum or Plasma 10.1 MG/DL 8.4 - 10.2 [facility] Bilirubin.total [Mass/volume] in Serum or Plasma <0.7 MG/DL 0.2 - 1.3 [facility] Alkaline phosphatase [Enzymatic activity/volume] in Serum or Plasma 74 U/L 38 - 126 [facility] Aspartate aminotransferase [Enzymatic activity/volume] in Serum or Plasma 15 U/L 5 - 40 [facility] Alanine aminotransferase [Enzymatic activity/volume] in Seru m or Plasma 15 U/L 7 - 56 [facility] Anion gap 3 in Serum or Plasma 10.0 mmol/L 8.0 - 16.0 [facility] AGE 24 yrs [facility] al NON-AA GFR >60 mL/min [facility] ital AFR AMER GFR >60 mL/min [facility] Male GFR In terprentation [...] >32 mL/min Normal ID Date Data Source [id number] 04/03/2020 05:33:00 PM EST [facility] Name Value Range Interpretation Code Description Data Michelle rce(s) Supporting Document(s) Magnesium [Mass/volume] in Serum or Plasma 1.8 MG/DL 1.7 - 2.2 [facility] ID Date Data Source [id number] 04/03/2020 05:33:[address] [facility] Name Value Range Interpretation Code Description Data Michelle rce(s) Supporting Document(s) Lipase [Enzymatic activity/volume] in Serum or Plasma 15 U/L 13 - 60 [facility] ID Date Data Source [id number] 04/03/2020 05:27:[address] [facility] Name Value Range Interpretation Code Description Data Michelle rce(s) Supporting Document(s) HCG SERUM QUAL NEGATIVE NORMAL: NEGATIVE [facility] HCG SERUM QL REENTER NEGATIVE NORMAL: NEGATIVE [facility] { KIT LOT # [id number] ){ KIT EXP DATE 02.20.21 ){ PROCEDURAL CONTROL VALID ) ID Date Data Source [id number] 04/03/2020 05:23:[address] [facility] Name Value Range Interpretation Code Description Data Michelle rce(s) Supporting Document(s) CBC W/AUTOMATED DIFF [facility] COMPLETE BLOOD COUNT Leukocytes [#/volume] in Blood by Automated count 10.2 10^3/uL 4.2 - 11.0 [facility] Erythrocytes [#/volume] in Blood by Automated count 4.79 10^6/uL 4. 20 - 5.40 [facility] Hemoglobin [Mass/volume] in Blood 11.7 g/dL 12.0 - 16.0 L [facility] Hematocrit [Volume Fraction] of Blood by Automated count 36.9 % 3 7.0 - 47.0 L [facility] Erythrocyte mean corpuscular volume [Entitic volume] by Auto mated count 77.0 fL 81.0 - 101 L [facility] Erythrocyte mean corpuscular hemoglobin [Entitic mass] by Automated count 24.4 pg 27.0 - 34.0 L [facility] Erythrocyte mean corpuscular hemoglobin concentration [Mass/volume] by Automated count 31.7 g/dL 31.0 - 36.0 [facility] Erythrocyte distribution width [Ratio] by Automated count 16.5 % 11.5 - 14.5 H [facility] Platelets [#/volume] in Blood by Automated count 365 10^3/uL 150 - 45 0 [facility] Platelet mean volume [Entitic volume] in Blood by Automated count 11.2 fL 7.4 - 10.4 H [facility] Neutrophils/100 leukocytes in Blood by Automated count 83.4 % 37. 0 - 80.0 H [facility] Lymphocytes/100 leukocytes in Blood by Manual count 10.4 % 25.0 - 40.0 L [facility] Monocytes/100 leukocytes in Blood by Automated count 5.6 % 3.0 - 8.0 [facility] Eosinophils/100 leukocytes in Blood by Automated count 0.0 % 0.0 - 7.0 [facility] Basophils/100 leukocytes in Blood by Automated count 0.2 % 0.0 - 2.5 [facility] %IG 0.4 % 0.0 - 0.0 H [facility] %NRBC 0.0 % 0.0 - 0.0 [facility] al Neutrophils [#/volume] in Blood by Automated count 8.50 10^3/uL 2.00 - 6.90 H [facility] Lymphocytes [#/volume] in Blood by Automated count 1.06 10^3/uL 0.60 - 3.40 [facility] Monocytes [#/volume] in Blood by Automated count 0.57 10^3/uL 0.00 - 0.90 [facility] Eosinophils [#/volume] in Blood by Automated count 0.00 10^3/uL 0.00 - 0.70 [facility] Basophils [#/volume] in Blood by Automated count 0.02 10^3/uL 0.00 - 0.20 [facility] #IG 0.04 10^3/uL 0.00 - 0.10 [facility] ospital #NRBC 0.00 10^3/uL 0.00 - 0.00 [facility] ospital MANUAL DIFF NOT INDICATED [facility] RBC MORPH NOT INDICATED [facility] spital ID Date Data Source [id number] 04/03/2020 05:23:00 PM EST [facility] Name Value Range Interpretation Code Description Data Michelle rce(s) Supporting Document(s) Lactate [Moles/volume] in Serum or Plasma 1.6 MMOL/L 0.2 - 2.2 [facility] ID Date Data Source [id number] 02/17/2020 01:07:00 PM EDT [facility] [address] [place] [address] PHONE: [phone] FAX: [phone] Name .................. : RITTER NATALIYA Martinez Acct Number.................. : [id number] ROOM. ................. : 117-1 Number ................... : [id number] Stay type ............. : O/P Discharge Date......... ... : Admit Date ......... : 02/16/20 Admit Phys .................... : CLAUDIO Date of ....... : 1995 Family Phys ................... : [employer] Phone .................. : [phone] Age ................................ : 24 Film# .................. .:[id number] Sex ................................. : F Unsigned transcriptions are preliminary reports and do not represent a medical or legal document CT ABD & PELVIS W/ IV ONLY [id number] COMPLETE:02/16/20 21:34 KJE [id number] (REASON FOR ABDOMEN: ABDOMINAL PAIN CT OF [...] dose: 507.0 mGycm Page 1 of 2 [facility] [address] [place] [address] PHONE: [phone] FAX: [phone] Name .................. : RITTER NATALIYA Martinez Acct Number.................. : [id number] ROOM. ................. : 117-1 MR Number ................... : [id number] Stay type ............. : O/P Discharge Date......... ... : Admit Date ......... : 02/16/20 Admit Phys .................... : CLAUDIO Date of ....... : 1995 Family Phys ................... : [employer] Phone .................. : [phone] Age ................................ : 24 Film# .................. .:[id number] Sex ................................. : F Unsigned transcriptions are preliminary reports and do not represent a medical or legal document CT ABD & PELVIS W/ IV ONLY [id number] COMPLETE:02/16/20 21:34 KJE [id number] (REASON FOR ABDOMEN: ABDOMINAL PAIN Contrast agent in mL: 75 Isovue 370 Method of administration: Intravenous Electronically Reviewed and Signed By Genaro Lozoya M.D. , 02/17/20 13:07, ARLEY Transcribe Initials: DZ , Transcribe Date: 02/17/20 02:00, Dictation Date: Copy for: DAVID Prince via fax Copy for: EMERGENCY DEPT via modem Copy for: 710 MED REC Page 2 of 2 Name Value Range Interpretation Code Description Data Michelle rce(s) Supporting Document(s) ID Date Data Source [id number] 02/17/2020 07:03:00 AM EDT [facility] Name Value Range Interpretation Code Description Data Michelle rce(s) Supporting Document(s) Magnesium [Mass/volume] in Serum or Plasma 2.5 MG/DL 1.7 - 2.2 H [facility] ID Date Data Source [id number] 02/17/2020 07:03:00 AM EDT [facility] Name Value Range Interpretation Code Description Data Michelle rce(s) Supporting Document(s) COMPREHENSIVE METABOLIC PANEL [facility] COMPREHENSIVE METABOLIC PANEL Sodium [Moles/volume] in Serum or Plasma 146 mEq/L 134 - 153 [facility] Potassium [Moles/volume] in Serum or Plasma 3.4 mEq/L 3.6 - 5.0 L [facility] Chloride [Moles/volume] in Serum or Plasma 107 mEq/L 98 - 107 [facility] Carbon dioxide, total [Moles/volume] in Serum or Plasma 29 MEQ/L 22 - 30 [facility] Glucose [Mass/volume] in Serum or Plasma 89 MG/DL 65 - 110 [facility] BUN 12 MG/DL 7 - 21 [facility] al Creatinine [Mass/volume] in Serum or Plasma 0.6 MG/DL 0.7 - 1.5 L [facility] BUN/CREAT 20 8 - 27 [facility] Protein [Mass/volume] in Serum or Plasma 6.1 G/DL 6.3 - 8.2 L [facility] Albumin [Mass/volume] in Serum or Plasma 4.1 G/DL 3.9 - 5.0 [facility] Globulin [Mass/volume] in Serum by calculation 2.0 GM/DL 2.4 - 3.2 L [facility] A/G RATIO 2.1 0.8 - 2.0 H [facility] Calcium [Mass/volume] in Serum or Plasma 9.0 MG/DL 8.4 - 10.2 [facility] Bilirubin.total [Mass/volume] in Serum or Plasma <0.7 MG/DL 0.2 - 1.3 [facility] Alkaline phosphatase [Enzymatic activity/volume] in Serum or Plasma 52 U/L 38 - 126 [facility] Aspartate aminotransferase [Enzymatic activity/volume] in Serum or Plasma 21 U/L 5 - 40 [facility] Alanine aminotransferase [Enzymatic activity/volume] in Seru m or Plasma 44 U/L 7 - 56 [facility] Anion gap 3 in Serum or Plasma 10.0 mmol/L 8.0 - 16.0 [facility] AGE 24 yrs [facility] al NON-AA GFR >60 mL/min [facility] ital AFR AMER GFR >60 mL/min [facility] Male GFR In terprentation [...] >32 mL/min Normal ID Date Data Source [id number] 02/17/2020 07:02:00 AM EDT [facility] Name Value Range Interpretation Code Description Data Michelle rce(s) Supporting Document(s) CBC W/AUTOMATED DIFF [facility] COMPLETE BLOOD COUNT Leukocytes [#/volume] in Blood by Automated count 8.4 10^3/uL 4.2 - 1 1.0 [facility] Erythrocytes [#/volume] in Blood by Automated count 3.93 10^6/uL 4. 20 - 5.40 L [facility] Hemoglobin [Mass/volume] in Blood 10.7 g/dL 12.0 - 16.0 L [facility] Hematocrit [Volume Fraction] of Blood by Automated count 33.8 % 3 7.0 - 47.0 L [facility] Erythrocyte mean corpuscular volume [Entitic volume] by Auto mated count 86.0 fL 81.0 - 101 [facility] Erythrocyte mean corpuscular hemoglobin [Entitic mass] by Automated count 27.2 pg 27.0 - 34.0 [facility] Erythrocyte mean corpuscular hemoglobin concentration [Mass/volume] by Automated count 31.7 g/dL 31.0 - 36.0 [facility] Erythrocyte distribution width [Ratio] by Automated count 14.2 % 11.5 - 14.5 [facility] Platelets [#/volume] in Blood by Automated count 267 10^3/uL 150 - 45 0 [facility] Platelet mean volume [Entitic volume] in Blood by Automated count 10.9 fL 7.4 - 10.4 H [facility] Neutrophils/100 leukocytes in Blood by Automated count 64.9 % 37. 0 - 80.0 [facility] Lymphocytes/100 leukocytes in Blood by Manual count 26.3 % 25.0 - 40.0 [facility] Monocytes/100 leukocytes in Blood by Automated count 7.8 % 3.0 - 8.0 [facility] Eosinophils/100 leukocytes in Blood by Automated count 0.2 % 0.0 - 7.0 [facility] Basophils/100 leukocytes in Blood by Automated count 0.4 % 0.0 - 2.5 [facility] %IG 0.4 % 0.0 - 0.0 H [facility] al %NRBC 0.0 % 0.0 - 0.0 [facility] al Neutrophils [#/volume] in Blood by Automated count 5.42 10^3/uL 2.00 - 6.90 [facility] Lymphocytes [#/volume] in Blood by Automated count 2.20 10^3/uL 0.60 - 3.40 [facility] Monocytes [#/volume] in Blood by Automated count 0.65 10^3/uL 0.00 - 0.90 [facility] Eosinophils [#/volume] in Blood by Automated count 0.02 10^3/uL 0.00 - 0.70 [facility] Basophils [#/volume] in Blood by Automated count 0.03 10^3/uL 0.00 - 0.20 [facility] #IG 0.03 10^3/uL 0.00 - 0.10 [facility] ospital #NRBC 0.00 10^3/uL 0.00 - 0.00 [facility] MANUAL DIFF NOT INDICATED [facility] RBC MORPH NOT INDICATED [facility] spital ID Date Data Source [id number] 02/16/2020 04:43:00 PM EDT [facility] 1 OrderSheet [facility] Emergency Department [address] [place] [address] Phone #: ext- [phone] 02/16/2020 16:35 Patient: NATALIYA BEASLEY Sex: F : 1995 Age: 24yWEIGHT:61.2 kg HEIGHT:62 inches BMI:24.7ALLERGIES: No Known Drug AllergyCHIEF COMPLAINT: abdominal pain, vomiting, nausea, constipationDIAGNOSIS: ProblemLAB ORDERSOrder Description Priority Entered Acknowledged InitialedCBC w Diff STAT 17:05 02/16/2020 17:17 Jc Haines ED; [id number] STAT 17:05 02/16/2020 17:17 [facility] human resources professional, Jc ER PA; [id number] STAT 17:05 02/16/2020 17:17 [facility] Tech, Jc ER PA; [id number] (Clean STAT 17:05 02/16/2020 Ack'd: 17:26Catch) [facility], PA; Jc ER [id number] STAT 17:05 02/16/2020 17:17 [facility] Tech, Jc ER PA; [id number] STAT 17:05 02/16/2020 17:17 [facility] Tech, Jc ER PA; [id number] (Clean STAT 20:52 02/16/2020 Ack'd: 21:11Catch) Mariano Starks R.N.;Beta- HCG, Qual STAT 20:52 02/16/2020 Ack'd: 21:12Urine Mariano Starks R.N. PA;DIAGNOSTIC STUDY ORDERSOrder Description Priority Entered Acknowledged InitialedMEDICATION/IV/DRIP/FLUID ORDERSOrder Description Priority Entered Acknowledged Initialed 2 OrderSheet [facility] Emergency Department [address] [place] [address] Phone #: ext- [phone] 02/16/2020 16:35 Patient: ANTALIYA BEASLEY Sex: F : 1995 Age: 24yNS [...] rce(s) Supporting Document(s) ID Date Data Source [id number] 02/16/2020 04:43:00 PM EDT [facility] 1 Medication Reconciliation Report [facility] Emergency Department [address] [place] [address] Phone #: ext- [phone] 02/16/2020 16:35 Patient: [...] rce(s) Supporting Document(s) ID Date Data Source [id number] 02/16/2020 04:43:00 PM EDT [facility] 1 Medication Administration Record [facility] Emergency Department [address] [place] [address] Phone #: ext- [phone] 02/16/2020 16:35 Patient: NATALIYA BEASLEY Sex: F : 1995 Age: 24yWeight: 61.2 kgHeight/Length: 62 inBMI: 24.7ALLERGIES: No Known Drug Allergy Date/Time Medication Administered Medication OrderedStart IV NS W/ BOLUS NS IV 1000 mL Bolus: : Bolus [id number] 02/16/2020 Dose: IV Fluids mL (X1)Maria De [...] Dispensed: 100 mL bagStop Site: #1 right [id number]:56 02/16/2020Shakila Maria De Jesus, R.N.Given KCL LIQUID PO KCl Liquid PO 40 meq18:50 02/16/2020 Dose: 40 meq Syrup/Liquid POShakila Maria De Jesus, R.N.Start MAGNESIUM SULFATE [IVPB] Magnesium Sulfate 2 g IVPB X118:49 02/16/2020 Dose: 2 gm IVPB dose: 2 gm (HIGH ALERTShakila Maria De Jesus, R.N. Rate: 2 gm/hr over 1 hour(s) MEDICATION, X1)---- Dispensed: 50 mL bagStop Site: #1 right rdlrvha50:51 02/16/2020Shakila Maria De Jesus, R.N.Start PROTONIX [IVPB] [...] rce(s) Supporting Document(s) ID Date Data Source [id number] 02/16/2020 04:43:00 PM EDT [facility] 1 General Instructions [facility] Emergency Department [address] [place] [address] Phone #: ext- [phone] 02/16/2020 16:35 Patient: NATALIYA BEASLEY Sex: F : 1995 Age: 24yHypokalemia; hypomagnesemia.(Electronically signed by EDUARDO Moses 02/16/2020 21:08) Name Value Range Interpretation Code Description Data Michelle rce(s) Supporting Document(s) ID Date Data Source [id number] 02/16/2020 04:43:00 PM EDT [facility] 1 Clinical Report - Nurses [facility] Emergency Department [address] [place] [address] Phone #: ext- [phone] 02/16/2020 16:35 Patient: [...] to shake after making this statement to bid writer. ptmucous membranes do appear dry.).Triage time: 16:41 02/16/2020. Acuity: LEVEL 3.Chief Complaint: ABDOMINAL PAIN.Alert.Onset. (four days ago). ( pt states "i am a ten, i don't feel well" for her pain scale.). The patient has hadnausea and vomiting. Last oral intake by patient was (this am-yogurt but reports emesis).Treatment GEOSPATIAL IMAGE ANALYST:None. --16:46 02/16/20 Natividad Felix R.N.16:41 02/16/20. BP: [...] harming or 2 Clinical Report - Nurses [facility] Emergency Department [address] [place] [address] Phone #: ext- [phone] 02/16/2020 16:35 Patient: [...] ( Pt 3 Clinical Report - Nurses [facility] Emergency Department [address] [place] [address] Phone #: ext- [phone] 02/16/2020 16:35 Patient: [...] precautions. Verbalizes 4 Clinical Report - Nurses [facility] Emergency Department [address] [place] [address] Phone #: ext- [phone] 02/16/2020 16:35 Patient: NATALIYA BEASLEY Sex: F : 1995 Age: 24y understanding. --21:17 02/16/20 Maria De Jesus Jhaveri R.N. 21:21 02/16/20. Patient transported to [place] by wheelchair with mask and dental equipment technician. --21:26 02/16/20 Maria De Jesus Jhaveri R.N. Patient returned from CT by wheelchair with mask and dental equipment technician. --21:34 02/16/20 Maria De Jesus Jhaveri [...] rce(s) Supporting Document(s) ID Date Data Source [id number] 02/16/2020 04:43:00 PM EDT [facility] 1 Clinical Report - Physicians/Mid Levels [facility] Emergency Department [address] [place] [address] Phone #: ext- [phone] 02/16/2020 16:35 Patient: NATALIYA BEASLEY Sex: F [...] to shake after making this statement to bid writer. pt mucous membranes do appear dry [...] normal. 2 Clinical Report - Physicians/Mid Levels [facility] Emergency Department [address] [place] [address] Phone #: ext- [phone] 02/16/2020 16:35 [id number] Sex: F : 1995 Age: 24y Neck: [...] 107) 3 Clinical Report - Physicians/Mid Levels [facility] Emergency Department [address] [place] [address] Phone #: ext- [phone] 02/16/2020 16:35 Patient: [...] (Discussed mag and potassium levelswith Sarah CASIANO BOATBUILDER SUPERVISOR and she will obs pt. Pt is [...] and 4 Clinical Report - Physicians/Mid Levels [facility] Emergency Department [address] [place] [address] Phone #: ext- [phone] 02/16/2020 16:35 Patient: NATALIYA BEASLEY Sex: F : 1995 Age: 24y need for admission. Patient and mother agrees with plan of care. 18:38 Feb 16 2020. Disposition: Observation in the Acute Inpatient Unit, Monitored. 18:38 Feb 16 2020 Sarah CASIANO [employer]DER SUPERVISOR. UTI (catheter associated) was not present prior [...] rce(s) Supporting Document(s) ID Date Data Source [id number] 02/20/2020 03:47:00 PM EDT [facility] Name Value Range Interpretation Code Description Data Michelle rce(s) Supporting Document(s) CULTURE URINE [facility] _CULTURE URINE_$$[id number]$$675264$$355667$$825937$$918631$$129364$$688280$$154905$$150546$$ 889080$$963743$$920859$$746210$$857404$$297471$$220787$$536148$$406060$$872476$$ 328354$$966493$$756001$$691857$$022229$$185895$$943439$$[id number] -- Continued on next page --Patient: RITTER NATALIYA Martinez Order: [id number] Page 2Culture: CULTURE URINE Status: Final ==== -- Continued on next page --Patient: RITTER NATALIYA Martinez Order: [id number] Page 2Culture: CULTURE URINE Status: Prelim =====$$[id number]$$[id number] DATE/TIME: 02/20/2020 15:06Culture: CULTURE URINE Status: FinalUrine Culture,Comprehensive: Q9Drert urogenital flora10,000-25,000 colony forming units per mL Previous result entered on 02/19/2020 03:15 ET Specimen has been received and testing has been initiated.P1 Test performed by: [facility] Roly CLANCY #: [id number] [address] [place] [address] [phone] [facility] [id number] Director : Abhilash Hilario MD NPI #:Sports Team Manager : 02/20/20.0635.XMT.SENT REF 02/20/20.1548.XMT.SENT REF 02/20/20.1548.CM .to GENNARO via fax ID Date Data Source [id number] 02/16/2020 09:26:00 PM EDT [facility] Name Value Range Interpretation Code Description Data Michelle rce(s) Supporting Document(s) [facility] COLOR yellow NORMAL: Yellow [facility] CLARITY clear NORMAL: Clear [facility] Specific gravity of Urine by Test strip 1.010 1.001 - 1.030 [facility] pH 7 5 - 9 [facility] Glucose [Mass/volume] in Urine by Test strip NORM NORMAL: Negat [facility] Bilirubin.total [Presence] in Urine by Test strip NEG NORMAL: Negative [facility] Ketones [Presence] in Urine by Test strip 150 NORMAL: Negative A [facility] Protein [Mass/volume] in Urine by Test strip 30 NORMAL: Negat [facility] Nitrite [Presence] in Urine by Test strip NEG NORMAL: Negative [facility] BLOOD NEG NORMAL: Negative [facility] Leukocyte esterase [Presence] in Urine by Test strip 25 DAYLIN L: Negative [facility] Urobilinogen [Mass/volume] in Urine by Test strip 4 less tito n 1.0 mg/dL [facility] MICROSCOPIC See Below [facility] WBC 0 - 1 NORMAL: NONE SEEN [facility] Erythrocytes [#/volume] in Urine by Test strip 0 - 1 NORMAL: NON E SEEN [facility] EPITHELIAL MANY NORMAL: NONE SEEN A [facility] Bacteria [Presence] in Urine sediment by Light microscopy 2+ MOD NORMAL: NONE SEEN A [facility] ID Date Data Source [id number] 02/16/2020 09:24:00 PM EDT [facility] Name Value Range Interpretation Code Description Data Michelle rce(s) Supporting Document(s) HCG URINE QUAL NEGATIVE NORMAL: NEGATIVE [facility] HCG URINE QL REENTER NEGATIVE NORMAL: NEGATIVE Ca [facility] { KIT LOT # [id number] ){ KIT EXP DATE 02/20/21 ){ PROCEDURAL CONTROL VALID ) ID Date Data Source [id number] 02/16/2020 09:22:00 PM EDT [facility] Name Value Range Interpretation Code Description Data Michelle rce(s) Supporting Document(s) HCG SERUM QUAL NEGATIVE NORMAL: NEGATIVE [facility] HCG SERUM QL REENTER NEGATIVE NORMAL: NEGATIVE Ca [facility] { KIT LOT # [id number] ){ KIT EXP DATE 02.20.21 ){ PROCEDURAL CONTROL VALID ) ID Date Data Source [id number] 02/16/2020 06:04:00 PM EDT [facility] Name Value Range Interpretation Code Description Data Michelle rce(s) Supporting Document(s) Ethanol [Moles/volume] in Blood <10.0 MG/DL [facility] ALCOHOL % 0.00 % 0.00 - 0.01 [facility] *FOR MEDICAL PURPOSES ONLY * ID Date Data Source [id number] 02/16/2020 06:04:00 PM EDT [facility] Name Value Range Interpretation Code Description Data Michelle rce(s) Supporting Document(s) Magnesium [Mass/volume] in Serum or Plasma 1.6 MG/DL 1.7 - 2.2 L [facility] ID Date Data Source [id number] 02/16/2020 06:04:00 PM EDT [facility] Name Value Range Interpretation Code Description Data Michelle rce(s) Supporting Document(s) Lipase [Enzymatic activity/volume] in Serum or Plasma 15 U/L 13 - 60 [facility] ID Date Data Source [id number] 02/16/2020 06:00:00 PM EDT [facility] Name Value Range Interpretation Code Description Data Michelle rce(s) Supporting Document(s) COMPREHENSIVE METABOLIC PANEL [facility] COMPREHENSIVE METABOLIC PANEL Sodium [Moles/volume] in Serum or Plasma 141 mEq/L 134 - 153 [facility] Potassium [Moles/volume] in Serum or Plasma 2.6 mEq/L 3.6 - 5.0 LL [facility] CALL/ READ BACK BEN IN ER [facility] BY: CD [facility] DATE/TIME 02.16.201801 [facility] Chloride [Moles/volume] in Serum or Plasma 95 mEq/L 98 - 107 L [facility] Carbon dioxide, total [Moles/volume] in Serum or Plasma 28 MEQ/L 22 - 30 [facility] Glucose [Mass/volume] in Serum or Plasma 108 MG/DL 65 - 110 [facility] BUN 17 MG/DL 7 - 21 [facility] Creatinine [Mass/volume] in Serum or Plasma 0.6 MG/DL 0.7 - 1.5 L [facility] BUN/CREAT 28 8 - 27 H [facility] Protein [Mass/volume] in Serum or Plasma 8.3 G/DL 6.3 - 8.2 H [facility] Albumin [Mass/volume] in Serum or Plasma 5.3 G/DL 3.9 - 5.0 H [facility] Globulin [Mass/volume] in Serum by calculation 3.0 GM/DL 2.4 - 3.2 [facility] A/G RATIO 1.8 0.8 - 2.0 [facility] Calcium [Mass/volume] in Serum or Plasma 10.3 MG/DL 8.4 - 10.2 H [facility] Bilirubin.total [Mass/volume] in Serum or Plasma 0.9 MG/DL 0.2 - 1.3 [facility] Alkaline phosphatase [Enzymatic activity/volume] in Serum or Plasma 71 U/L 38 - 126 [facility] Aspartate aminotransferase [Enzymatic activity/volume] in Serum or Plasma 36 U/L 5 - 40 [facility] Alanine aminotransferase [Enzymatic activity/volume] in Seru m or Plasma 63 U/L 7 - 56 H [facility] Anion gap 3 in Serum or Plasma 18.0 mmol/L 8.0 - 16.0 H [facility] AGE 24 yrs [facility] NON-AA GFR >60 mL/min [facility] AFR AMER GFR >60 mL/min [facility] Male GFR In terprentation [...] >32 mL/min Normal ID Date Data Source [id number] 02/16/2020 05:38:00 PM EDT [facility] Name Value Range Interpretation Code Description Data Michelle rce(s) Supporting Document(s) CBC W/AUTOMATED DIFF [facility] COMPLETE BLOOD COUNT Leukocytes [#/volume] in Blood by Automated count 10.4 10^3/uL 4.2 - 11.0 [facility] Erythrocytes [#/volume] in Blood by Automated count 4.60 10^6/uL 4. 20 - 5.40 [facility] Hemoglobin [Mass/volume] in Blood 12.6 g/dL 12.0 - 16.0 [facility] Hematocrit [Volume Fraction] of Blood by Automated count 37.9 % 3 7.0 - 47.0 [facility] Erythrocyte mean corpuscular volume [Entitic volume] by Auto mated count 82.4 fL 81.0 - 101 [facility] Erythrocyte mean corpuscular hemoglobin [Entitic mass] by Automated count 27.4 pg 27.0 - 34.0 [facility] Erythrocyte mean corpuscular hemoglobin concentration [Mass/volume] by Automated count 33.2 g/dL 31.0 - 36.0 [facility] Erythrocyte distribution width [Ratio] by Automated count 13.8 % 11.5 - 14.5 [facility] Platelets [#/volume] in Blood by Automated count 360 10^3/uL 150 - 45 0 [facility] Platelet mean volume [Entitic volume] in Blood by Automated count 10.7 fL 7.4 - 10.4 H [facility] Neutrophils/100 leukocytes in Blood by Automated count 77.0 % 37. 0 - 80.0 [facility] Lymphocytes/100 leukocytes in Blood by Manual count 14.3 % 25.0 - 40.0 L [facility] Monocytes/100 leukocytes in Blood by Automated count 8.0 % 3.0 - 8.0 [facility] Eosinophils/100 leukocytes in Blood by Automated count 0.0 % 0.0 - 7.0 [facility] Basophils/100 leukocytes in Blood by Automated count 0.2 % 0.0 - 2.5 [facility] %IG 0.5 % 0.0 - 0.0 H [facility] %NRBC 0.0 % 0.0 - 0.0 [facility] Neutrophils [#/volume] in Blood by Automated count 7.98 10^3/uL 2.00 - 6.90 H [facility] Lymphocytes [#/volume] in Blood by Automated count 1.48 10^3/uL 0.60 - 3.40 [facility] Monocytes [#/volume] in Blood by Automated count 0.83 10^3/uL 0.00 - 0.90 [facility] Eosinophils [#/volume] in Blood by Automated count 0.00 10^3/uL 0.00 - 0.70 [facility] Basophils [#/volume] in Blood by Automated count 0.02 10^3/uL 0.00 - 0.20 [facility] #IG 0.05 10^3/uL 0.00 - 0.10 [facility] #NRBC 0.00 10^3/uL 0.00 - 0.00 [facility] MANUAL DIFF NOT INDICATED [facility] RBC MORPH NOT INDICATED [facility] spital ID Date Data Source [id number] 01/19/2020 08:44:[address] [facility] Name Value Range Interpretation Code Description Data Michelle rce(s) Supporting Document(s) HCT 28.4 % 36.0-47.[address] [facility] HGB 9.3 g/dL 12.0-15.[address] [facility] MCH 32.7 G/DL pg 32.0-36.5 N [facility] MCHC 31.1 PG % 27.0-33.[address] [facility] PLATELETS 164 10 10*3/mm3 150-[address] [facility] RBC 2.99 10 10*6/mm3 4.00-5.[address] [facility] RDW 13.2 % 11.5-14.[address] [facility] WBC TOTAL 7.3 4.0-10.[address] [facility] ID Date Data Source [id number] 01/19/2020 08:44:[address] [facility] Name Value Range Interpretation Code Description Data Michelle rce(s) Supporting Document(s) BG FASTING 108 mg/dL 70-100 H [facility] ID Date Data Source [id number] 01/18/2020 04:42:[address] [facility] 27.49.233.6 G/DL31.4 PG183 102.93 1013.9 9.8 98 30.810.433.8 G/DL31.6 PG176 103.29 1013. 410.7 109 Name Value Range Interpretation Code Description Data Michelle rce(s) Supporting Document(s) ID Date Data Source [id number] 01/18/2020 04:42:[address] [facility] 27.49.233.6 G/DL31.4 PG183 102.93 1013.9 9.8 98 30.810.433.8 G/DL31.6 PG176 103.29 1013. 410.7 109 Name Value Range Interpretation Code Description Data Michelle rce(s) Supporting Document(s) ID Date Data Source [id number] 01/17/2020 07:33:[address] [facility] 27.49.233.6 G/DL31.4 PG183 102.93 1013.9 9.8 98 30.810.433.8 G/DL31.6 PG176 103.29 1013. 410.7 109 Name Value Range Interpretation Code Description Data Michelle rce(s) Supporting Document(s) ID Date Data Source [id number] 01/17/2020 07:33:[address] [facility] 27.49.233.6 G/DL31.4 PG183 102.93 1013.9 9.8 98 30.810.433.8 G/DL31.6 PG176 103.29 1013. 410.7 109 Name Value Range Interpretation Code Description Data Michelle rce(s) Supporting Document(s) ID Date Data Source [id number] 12/27/2019 03:38:00 PM EDT [facility] Name Value Range Interpretation Code Description Data Michelle rce(s) Supporting Document(s) Potassium [Moles/volume] in Serum or Plasma 3.6 mEq/L 3.6 - 5.0 [facility] ID Date Data Source [id number] 12/27/2019 07:03:00 AM EDT [facility] Name Value Range Interpretation Code Description Data Michelle rce(s) Supporting Document(s) COMPREHENSIVE METABOLIC PANEL [facility] COMPREHENSIVE METABOLIC PANEL Sodium [Moles/volume] in Serum or Plasma 137 mEq/L 134 - 153 [facility] Potassium [Moles/volume] in Serum or Plasma 3.2 mEq/L 3.6 - 5.0 L [facility] Chloride [Moles/volume] in Serum or Plasma 101 mEq/L 98 - 107 [facility] Carbon dioxide, total [Moles/volume] in Serum or Plasma 27 MEQ/L 22 - 30 [facility] Glucose [Mass/volume] in Serum or Plasma 91 MG/DL 65 - 110 [facility] BUN 9 MG/DL 7 - 21 [facility] Creatinine [Mass/volume] in Serum or Plasma 0.5 MG/DL 0.7 - 1.5 L [facility] BUN/CREAT 18 8 - 27 [facility] Protein [Mass/volume] in Serum or Plasma 6.0 G/DL 6.3 - 8.2 L [facility] Albumin [Mass/volume] in Serum or Plasma 3.9 G/DL 3.9 - 5.0 [facility] Globulin [Mass/volume] in Serum by calculation 2.1 GM/DL 2.4 - 3.2 L [facility] A/G RATIO 1.9 0.8 - 2.0 [facility] Calcium [Mass/volume] in Serum or Plasma 8.8 MG/DL 8.4 - 10.2 [facility] Bilirubin.total [Mass/volume] in Serum or Plasma 1.4 MG/DL 0.2 - 1.3 H [facility] Alkaline phosphatase [Enzymatic activity/volume] in Serum or Plasma 49 U/L 38 - 126 [facility] Aspartate aminotransferase [Enzymatic activity/volume] in Serum or Plasma 32 U/L 5 - 40 [facility] Alanine aminotransferase [Enzymatic activity/volume] in Seru m or Plasma 33 U/L 7 - 56 [facility] Anion gap 3 in Serum or Plasma 9.0 mmol/L 8.0 - 16.0 [facility] AGE 24 yrs [facility] NON-AA GFR >60 mL/min [facility] AFR AMER GFR >60 mL/min [facility] Male GFR In terprentation [...] >32 mL/min Normal ID Date Data Source [id number] 12/27/2019 06:51:00 AM EDT [facility] Name Value Range Interpretation Code Description Data Michelle rce(s) Supporting Document(s) Magnesium [Mass/volume] in Serum or Plasma 2.1 MG/DL 1.7 - 2.2 [facility] ID Date Data Source [id number] 12/27/2019 06:43:00 AM EDT [facility] Name Value Range Interpretation Code Description Data Michelle e(s) Supporting Document(s) CBC W/AUTOMATED DIFF [facility] COMPLETE BLOOD COUNT Leukocytes [#/volume] in Blood by Automated count 8.3 10^3/uL 4.2 - 1 1.0 [facility] Erythrocytes [#/volume] in Blood by Automated count 4.06 10^6/uL 4. 20 - 5.40 L [facility] Hemoglobin [Mass/volume] in Blood 12.7 g/dL 12.0 - 16.0 [facility] Hematocrit [Volume Fraction] of Blood by Automated count 37.3 % 3 7.0 - 47.0 [facility] Erythrocyte mean corpuscular volume [Entitic volume] by Auto mated count 91.9 fL 81.0 - 101 [facility] Erythrocyte mean corpuscular hemoglobin [Entitic mass] by Automated count 31.3 pg 27.0 - 34.0 [facility] Erythrocyte mean corpuscular hemoglobin concentration [Mass/volume] by Automated count 34.0 g/dL 31.0 - 36.0 [facility] Erythrocyte distribution width [Ratio] by Automated count 12.5 % 11.5 - 14.5 [facility] Platelets [#/volume] in Blood by Automated count 231 10^3/uL 150 - 45 0 [facility] Platelet mean volume [Entitic volume] in Blood by Automated count 10.2 fL 7.4 - 10.4 [facility] Neutrophils/100 leukocytes in Blood by Automated count 65.2 % 37. 0 - 80.0 [facility] Lymphocytes/100 leukocytes in Blood by Manual count 25.2 % 25.0 - 40.0 [facility] Monocytes/100 leukocytes in Blood by Automated count 8.8 % 3.0 - 8.0 H [facility] Eosinophils/100 leukocytes in Blood by Automated count 0.2 % 0.0 - 7.0 [facility] Basophils/100 leukocytes in Blood by Automated count 0.2 % 0.0 - 2.5 [facility] %IG 0.4 % 0.0 - 0.0 [facility] %NRBC 0.0 % 0.0 - 0.0 [facility] Neutrophils [#/volume] in Blood by Automated count 5.41 10^3/uL 2.00 - 6.90 [facility] Lymphocytes [#/volume] in Blood by Automated count 2.09 10^3/uL 0.60 - 3.40 [facility] Monocytes [#/volume] in Blood by Automated count 0.73 10^3/uL 0.00 - 0.90 [facility] Eosinophils [#/volume] in Blood by Automated count 0.02 10^3/uL 0.00 - 0.70 [facility] Basophils [#/volume] in Blood by Automated count 0.02 10^3/uL 0.00 - 0.20 [facility] #IG 0.03 10^3/uL 0.00 - 0.10 [facility] #NRBC 0.00 10^3/uL 0.00 - 0.00 [facility] MANUAL DIFF NOT INDICATED [facility] RBC MORPH NOT INDICATED [facility] spital ID Date Data Source [id number] 12/26/2019 10:41:00 [place] [address] RESPIRATORY CARE REPORT ==== ---------NAME------- NUMBER SEX AGE ADMIT DISC. XRAY# F/C TYPERIARIN Martinez [id number] F 24 12/26/19 [id number] X6B O/P DATE OF : 1995 M/R# [id number] #: [id number] LOCATION: EMERGENCY DEPT EKG [id number] COMP LETE:12/26/19 14:18 EWW [id number] PHYSICIAN: CLAUDIO PAUL Name Value Range Interpretation Code Description Data Michelle rce(s) Supporting Document(s) ID Date Data Source [id number] 12/26/2019 10:59:00 AM EDT [facility] 1 OrderSheet [facility] Emergency Department [address] [place] [address] Phone #: ext- [phone] 12/26/2019 10:40 Patient: [...] 1000 11:03 12/26/2019 11:22 Sallykumaro, 2 OrderSheet [facility] Emergency Department [address] [place] [address] Phone #: ext- [phone] 12/26/2019 10:40 Patient: [...] rce(s) Supporting Document(s) ID Date Data Source [id number] 12/26/2019 10:59:00 AM EDT [facility] 1 Medication Reconciliation Report [facility] Emergency Department [address] [place] [address] Phone #: ext- [phone] 12/26/2019 10:40 Patient: [...] rce(s) Supporting Document(s) ID Date Data Source [id number] 12/26/2019 10:59:00 AM EDT [facility] 1 Medication Administration Record [facility] Emergency Department [address] [place] [address] Phone #: ext- [phone] 12/26/2019 10:40 Patient: NATALIYA BEASLEY Sex: F : 1995 Age: 24yWeight: 58.9 kgHeight/Length: 64 inBMI: 22.3ALLERGIES: Sulfa Antibiotics Date/Time Medication Administered Medication OrderedStart LR [IV] LR IV : Bolus 1000 mL, then 70436:22 12/26/2019 Dose: IV Fluids mL/hrZakiya Quiles, R.N. Bolus: 1000 mL wide open---- Dispensed: 1000 mL bagStop Site: #1 left AC16:30 12/26/2019Zakiya Quiles, R.N.Given KCL LIQUID PO KCl Liquid PO 40 meq12:18 12/26/2019 Dose: 40 meq Zakiya Mary, R.N.Start KCL [IVPB] KCl IVPB 10 meq/771eD15:15 12/26/2019 Dose: 10 meq IVPBZakiya Quiles, R.N. [...] mL bagStop Site: #1 left AC13:54 12/26/2019Alexia Kmep RPuraGiven KCL LIQUID PO KCl Liquid PO 40 meq15:05 12/26/2019 Dose: 40 meq Zakiya Mary R.N.Start KCL [IVPB] KCl IVPB 10 meq/546iF38:06 12/26/2019 Dose: 10 meq IVPBZakiya Quiles R.N. Rate: 100 mL/hr over 1 hour(s)---- Dispensed: 100 mL bagStop Site: #1 left AC16:11 12/26/2019Zakiya Quiles RPuraGiven ZOFRAN [IVP] (ONDANSETRON HCL) Zofran IVP 8 mg15:36 12/26/2019 Dose: 8 mg Alexia Kelly RSvetaNSveta Site: #1 left AC Name Value Range Interpretation Code Description Data Michelle rce(s) Supporting Document(s) ID Date Data Source [id number] 12/26/2019 10:59:00 AM EDT [facility] 1 General Instructions [facility] Emergency Department [address] [place] [address] Phone #: ext- [phone] 12/26/2019 10:40 Patient: NATALIYA BEASLEY Sex: F : 1995 Age: 24yHypokalemia.(Electronically signed by EDUARDO Moses 12/26/2019 21:44) Name Value Range Interpretation Code Description Data Michelle rce(s) Supporting Document(s) ID Date Data Source [id number] 12/26/2019 10:59:00 AM EDT [facility] 1 Clinical Report - Nurses [facility] Emergency Department [address] [place] [address] Phone #: ext- [phone] 12/26/2019 10:40 Patient: [...] pain, pt also voicescramps in her hands).Treatment GEOSPATIAL IMAGE ANALYST:None.SEPSIS SCREEN: SIRS Screen negative. Sepsis Screen negative. [...] to Coronavirus. 2 Clinical Report - Nurses [facility] Emergency Department [address] [place] [address] Phone #: ext- [phone] 12/26/2019 10:40 Patient: [...] Quiles R.N. 3 Clinical Report - Nurses [facility] Emergency Department [address] [place] [address] Phone #: ext- [phone] 12/26/2019 10:40 Patient: NATALIYA BEASLEY Sex: F [...] infused: 1000. 4 Clinical Report - Nurses [facility] Emergency Department [address] [place] [address] Phone #: ext- [phone] 12/26/2019 10:40 Patient: [...] Quiles R.N. 5 Clinical Report - Nurses [facility] Emergency Department [address] [place] [address] Phone #: ext- [phone] 12/26/2019 10:40 [id number] Sex: F : 1995 Age: 24yLocked/Released at 12/26/2019 16:39 by Zakiya Quiles R.N. Name Value Range Interpretation Code Description Data Michelle rce(s) Supporting Document(s) ID Date Data Source [id number] 12/26/2019 10:59:00 AM EDT [facility] 1 Clinical Report - Physicians/Mid Levels [facility] Emergency Department [address] [place] [address] Phone #: ext- [phone] 12/26/2019 10:40 Patient: NATALIYA BEASLEY Sex: F [...] Antibiotics. 2 Clinical Report - Physicians/Mid Levels [facility] Emergency Department [address] [place] [address] Phone #: ext- [phone] 12/26/2019 10:40 Patient: NATALIYA BEASLEY Sex: F [...] (3.6 - 5.0) CALL/ READ BACK NIK REEL REPAIRER BY: LINDA DATE/TIME [id number] CHLORIDE 86 L mEq/L (98 - 107) [...] 1.3) 3 Clinical Report - Physicians/Mid Levels [facility] Emergency Department [address] [place] [address] Phone #: ext- [phone] 12/26/2019 10:40 Patient: NATALIYA BEASLEY Sex: F : 1995 Age: 24y ALKALINE PHOS 63 U/L (38 - 126) SGOT/AST 16 U/L (5 - 40) SGPT/ALT 16 U/L (7 - 56) ANION GAP 19.0 H mmol/L (8.0 - 16.0) AGE 24 yrs NON- AA GFR >60 mL/min AFR AMER GFR >60 mL/min Male GFR Interprentation 20-49 yrs >60 mL/min Lspzcf84-44 yrs >56 mL/min Normal 60-69 yrs >49 mL/min Normal 70-79yrs>42 mL/min Normal 80 and above >35 mL/min Normal Female GFRInterpretation 20-39 yrs >60 mL/min Normal 40-49 yrs >58 mL/minNormal 50-59 yrs >51 mL/min Normal 60-69 yrs >45 mL/min Fmbboc73-94 yrs >39 mL/min Normal 80 and above [...] CALL/ READ BACK CALLED TO RUSTY BY: [facility] DATE/TIME 12/26/19 @ [id number] Clinic al Report - Physicians/Mid Levels [facility] Emergency Department [address] [place] [address] Phone #: ext- [phone] 12/26/2019 10:40 Patient: [...] Male GFR Interprentation 20-49 yrs >60 mL/min Bbrmmz21-59 yrs >56 mL/min Normal 60-69 yrs >49 mL/min Normal 70-79yrs>42 mL/min Normal 80 and above >35 mL/min Normal Female GFRInterpretation 20-39 yrs >60 mL/min Normal 40-49 yrs >58 mL/minNormal 50-59 yrs >51 mL/min Normal 60-69 yrs >45 mL/min Mfulei27- 79 yrs >39 mL/min Normal 80 and above >32 mL/min NormalUrinalysis: (ANGELY: 12/26/2019 13:00) ( [facility] 12/26/2019 14:21) Final results Test Result Flag [...] NoneBeta-HCG, Qual Urine: (ANGELY: 12/26/2019 13:00) ( [facility] 12/26/2019 14:22) Final results Test Result Flag Units (Reference) HCG URINE QUAL NEGATIVE (NORMAL: NEGAT HCG URINE QL REENTER NEGATIVE (NORMAL: NEGAT { KIT LOT # [id number] ){ KIT EXP DATE02.27.21 ){ PROCEDURAL CONTROL VALID) 5 Clinical Report - Physicians/Mid Levels [facility] Emergency Department [address] [place] [address] Phone #: [phone] 12/26/2019 10:40 Patient: NATALIYA BEASLEY Sex: F : 1995 Age: 24y Troponin-T: (ANGELY: 12/26/2019 11:10) ( [facility] 12/26/2019 11:48) Final results Test Result Flag Units (Reference) TROPONIN T <0.01 NG/ML (0.00 - 0.10) TROPONIN T0.1 ng/ml Recommended as the clinical threshold value forTroponin T. Magnesium: (ANGELY: 12/26/2019 11:10) ( [facility] 12/26/2019 12:04) Final results Test Result Flag Units (Reference) MAGNESIUM 1.5 L MG/DL (1.7 - 2.2) EKG: (ANGELY: 12/26/2019 11:03) ( [facility] 12/26/2019 14:34) In Progress.PROGRESS AND PROCEDURESCourse of Care: 15:Dec 26 2019. Evaluation after observation and results of tests back. (Sherrie CASIANO BOATBUILDER SUPERVISOR and she will admit pt to obs to correct K. Pt is agreeable with dx and tx plan.). Patient counseled in person regarding the patient's stable but serious condition, test results, diagnosis and need for admission. Patient agrees with plan of care. 15:Dec 26 2019. Disposition: Observation in the Acute Inpatient Unit, Monitored. 15:Dec 26 2019 Sarah CASIANO BOATBUILDER SUPERVISOR. UTI (catheter associated) was not present prior [...] rce(s) Supporting Document(s) ID Date Data Source [id number] 12/26/2019 04:05:00 PM EDT [facility] Name Value Range Interpretation Code Description Data Michelle rce(s) Supporting Document(s) BASIC METABOLIC PANEL [facility] BASIC METABOLIC PANEL Sodium [Moles/volume] in Serum or Plasma 134 mEq/L 134 - 153 [facility] Potassium [Moles/volume] in Serum or Plasma 3.0 mEq/L 3.6 - 5.0 L [facility] Chloride [Moles/volume] in Serum or Plasma 88 mEq/L 98 - 107 L [facility] Carbon dioxide, total [Moles/volume] in Serum or Plasma 29 MEQ/L 22 - 30 [facility] Glucose [Mass/volume] in Serum or Plasma 106 MG/DL 65 - 110 [facility] BUN 14 MG/DL 7 - 21 [facility] Creatinine [Mass/volume] in Serum or Plasma 0.8 MG/DL 0.7 - 1.5 [facility] BUN/CREAT 18 8 - 27 [facility] Calcium [Mass/volume] in Serum or Plasma 9.7 MG/DL 8.4 - 10.2 [facility] Anion gap 3 in Serum or Plasma 17.0 mmol/L 8.0 - 16.0 H [facility] AGE 24 yrs [facility] al AFR AMER GFR >60 mL/min [facility] NON-AA GFR >60 mL/min [facility] ital Male GFR Inter prentation 20-49 yrs [...] >32 mL/min Normal ID Date Data Source [id number] 12/26/2019 02:24:00 PM EDT [facility] Name Value Range Interpretation Code Description Data Michelle rce(s) Supporting Document(s) COMPREHENSIVE METABOLIC PANEL [facility] COMPREHENSIVE METABOLIC PANEL Sodium [Moles/volume] in Serum or Plasma 132 mEq/L 134 - 153 L [facility] Potassium [Moles/volume] in Serum or Plasma 2.9 mEq/L 3.6 - 5.0 LL [facility] CALL/ READ BACK NIK REEL REPAIRER [facility] BY: LINDA [facility] [id number] 1974 [facility] Chloride [Moles/volume] in Serum or Plasma 86 mEq/L 98 - 107 L [facility] Carbon dioxide, total [Moles/volume] in Serum or Plasma 27 MEQ/L 22 - 30 [facility] Glucose [Mass/volume] in Serum or Plasma 118 MG/DL 65 - 110 H [facility] BUN 15 MG/DL 7 - 21 [facility] Creatinine [Mass/volume] in Serum or Plasma 0.7 MG/DL 0.7 - 1.5 [facility] BUN/CREAT 21 8 - 27 [facility] Protein [Mass/volume] in Serum or Plasma 7.7 G/DL 6.3 - 8.2 [facility] Albumin [Mass/volume] in Serum or Plasma 5.0 G/DL 3.9 - 5.0 [facility] Globulin [Mass/volume] in Serum by calculation 2.7 GM/DL 2.4 - 3.2 [facility] A/G RATIO 1.9 0.8 - 2.0 [facility] Calcium [Mass/volume] in Serum or Plasma 10.2 MG/DL 8.4 - 10.2 [facility] Bilirubin.total [Mass/volume] in Serum or Plasma 1.4 MG/DL 0.2 - 1.3 H [facility] Alkaline phosphatase [Enzymatic activity/volume] in Serum or Plasma 63 U/L 38 - 126 [facility] Aspartate aminotransferase [Enzymatic activity/volume] in Serum or Plasma 16 U/L 5 - 40 [facility] Alanine aminotransferase [Enzymatic activity/volume] in Seru m or Plasma 16 U/L 7 - 56 [facility] Anion gap 3 in Serum or Plasma 19.0 mmol/L 8.0 - 16.0 H [facility]GE 24 [facility] GFR >60 mL/min [facility] ital AFR AMER GFR >60 mL/min [facility] Male GFR In terprentation [...] >32 mL/min Normal ID Date Data Source [id number] 12/26/2019 03:36:00 PM EDT [facility] Name Value Range Interpretation Code Description Data Michelle rce(s) Supporting Document(s) URINALYSIS [facility] URINALYSIS SOURCE R [facility] COLOR yellow NORMAL: Yellow [facility] CLARITY Clear NORMAL: Clear [facility] Specific gravity of Urine by Test strip 1.010 1.001 - 1.030 [facility] pH 8 5 - 9 [facility] Glucose [Mass/volume] in Urine by Test strip NORM NORMAL: Negat [facility] Bilirubin.total [Presence] in Urine by Test strip NEG NORMAL: Negative [facility] Ketones [Presence] in Urine by Test strip 15 NORMAL: Negative A [facility] Protein [Mass/volume] in Urine by Test strip 15 NORMAL: Negat [facility] Nitrite [Presence] in Urine by Test strip NEG NORMAL: Negative [facility] BLOOD NEG NORMAL: Negative [facility] Leukocyte esterase [Presence] in Urine by Test strip 25 DAYLIN L: Negative [facility] Urobilinogen [Mass/volume] in Urine by Test strip 1 less tito n 1.0 mg/dL [facility] MICROSCOPIC See Below [facility] ital WBC 3 - 5 NORMAL: NONE SEEN [facility] Erythrocytes [#/volume] in Urine by Test strip 0 - 1 NORMAL: NON E SEEN [facility] EPITHELIAL MANY NORMAL: NONE SEEN A [facility] Bacteria [Presence] in Urine sediment by Light microscopy Tr laura NORMAL: NONE SEEN [facility] Mucus [Presence] in Urine sediment by Light microscopy 2+ NOR MAL: NONE SEEN A [facility] Casts [#/area] in Urine sediment by Microscopy low power field See Be low [facility] Hyaline casts [#/area] in Urine sediment by Microscopy low p ower field 1-3 NORMAL: None Seen A [facility] ID Date Data Source [id number] 12/26/2019 02:21:00 PM EDT [facility] Name Value Range Interpretation Code Description Data Michelle rce(s) Supporting Document(s) HCG URINE QUAL NEGATIVE NORMAL: NEGATIVE [facility] HCG URINE QL REENTER NEGATIVE NORMAL: NEGATIVE Ca [facility] { KIT LOT # [id number] ){ KIT EXP DATE 02.27.21 ){ PROCEDURAL CONTROL VALID ) ID Date Data Source [id number] 12/26/2019 05:19:00 PM EDT [facility] Name Value Range Interpretation Code Description Data Michelle rce(s) Supporting Document(s) Folate [Mass/volume] in Serum or Plasma 14.6 NG/ML 5.0 - 27.2 [facility] ID Date Data Source [id number] 12/26/2019 12:03:00 PM T [facility] Name Value Range Interpretation Code Description Data Michelle rce(s) Supporting Document(s) Magnesium [Mass/volume] in Serum or Plasma 1.5 MG/DL 1.7 - 2.2 L [facility] ID Date Data Source [id number] 12/26/2019 12:01:00 PM EDT [facility] Name Value Range Interpretation Code Description Data Michelle rce(s) Supporting Document(s) COMPREHENSIVE METABOLIC PANEL [facility] COMPREHENSIVE METABOLIC PANEL Sodium [Moles/volume] in Serum or Plasma 134 mEq/L 134 - 153 [facility] Potassium [Moles/volume] in Serum or Plasma 2.9 mEq/L 3.6 - 5.0 LL [facility] CALL/ READ BACK CALLED TO [facility] BY: OSMANI [facility] DATE/TIME 12/26/19 @ [address]323 [facility] Chloride [Moles/volume] in Serum or Plasma 82 mEq/L 98 - 107 L [facility] Carbon dioxide, total [Moles/volume] in Serum or Plasma 28 MEQ/L 22 - 30 [facility] Glucose [Mass/volume] in Serum or Plasma 120 MG/DL 65 - 110 H [facility] BUN 19 MG/DL 7 - 21 [facility] Creatinine [Mass/volume] in Serum or Plasma 0.9 MG/DL 0.7 - 1.5 [facility] BUN/CREAT 21 8 - 27 [facility] Protein [Mass/volume] in Serum or Plasma 8.1 G/DL 6.3 - 8.2 [facility] Albumin [Mass/volume] in Serum or Plasma 5.5 G/DL 3.9 - 5.0 H [facility] Globulin [Mass/volume] in Serum by calculation 2.6 GM/DL 2.4 - 3.2 [facility] A/G RATIO 2.1 0.8 - 2.0 H [facility] Calcium [Mass/volume] in Serum or Plasma 10.6 MG/DL 8.4 - 10.2 H [facility] Bilirubin.total [Mass/volume] in Serum or Plasma 1.6 MG/DL 0.2 - 1.3 H [facility] Alkaline phosphatase [Enzymatic activity/volume] in Serum or Plasma 68 U/L 38 - 126 [facility] Aspartate aminotransferase [Enzymatic activity/volume] in Serum or Plasma 19 U/L 5 - 40 [facility] Alanine aminotransferase [Enzymatic activity/volume] in Seru m or Plasma 19 U/L 7 - 56 [facility] Anion gap 3 in Serum or Plasma 24.0 mmol/L 8.0 - 16.0 H [facility] AGE 24 yrs [facility] al NON-AA GFR >60 mL/min [facility] ital AFR AMER GFR >60 mL/min [facility] Male GFR In terprentation [...] >32 mL/min Normal ID Date Data Source [id number] 12/26/2019 11:49:00 AM EDT [facility] Name Value Range Interpretation Code Description Data Michelle rce(s) Supporting Document(s) CBC W/AUTOMATED DIFF [facility] COMPLETE BLOOD COUNT Leukocytes [#/volume] in Blood by Automated count 14.9 10^3/uL 4.2 - 11.0 H [facility] Erythrocytes [#/volume] in Blood by Automated count 5.08 10^6/uL 4. 20 - 5.40 [facility] Hemoglobin [Mass/volume] in Blood 15.8 g/dL 12.0 - 16.0 [facility] Hematocrit [Volume Fraction] of Blood by Automated count 45.4 % 3 7.0 - 47.0 [facility] Erythrocyte mean corpuscular volume [Entitic volume] by Auto mated count 89.4 fL 81.0 - 101 [facility] Erythrocyte mean corpuscular hemoglobin [Entitic mass] by Automated count 31.1 pg 27.0 - 34.0 [facility] Erythrocyte mean corpuscular hemoglobin concentration [Mass/volume] by Automated count 34.8 g/dL 31.0 - 36.0 [facility] Erythrocyte distribution width [Ratio] by Automated count 12.2 % 11.5 - 14.5 [facility] Platelets [#/volume] in Blood by Automated count 392 10^3/uL 150 - 45 0 [facility] Platelet mean volume [Entitic volume] in Blood by Automated count 9.8 fL 7.4 - 10.4 [facility] Neutrophils/100 leukocytes in Blood by Automated count 81.1 % 37. 0 - 80.0 H [facility] Lymphocytes/100 leukocytes in Blood by Manual count 10.7 % 25.0 - 40.0 L [facility] Monocytes/100 leukocytes in Blood by Automated count 7.6 % 3.0 - 8.0 [facility] Eosinophils/100 leukocytes in Blood by Automated count 0.1 % 0.0 - 7.0 [facility] Basophils/100 leukocytes in Blood by Automated count 0.1 % 0.0 - 2.5 [facility] %IG 0.4 % 0.0 - 0.0 H [facility] al %NRBC 0.0 % 0.0 - 0.0 [facility] Neutrophils [#/volume] in Blood by Automated count 12.10 10^3/uL 2. 00 - 6.90 H [facility] Lymphocytes [#/volume] in Blood by Automated count 1.59 10^3/uL 0.60 - 3.40 [facility] Monocytes [#/volume] in Blood by Automated count 1.13 10^3/uL 0.00 - 0.90 H [facility] Eosinophils [#/volume] in Blood by Automated count 0.01 10^3/uL 0.00 - 0.70 [facility] Basophils [#/volume] in Blood by Automated count 0.02 10^3/uL 0.00 - 0.20 [facility] #IG 0.06 10^3/uL 0.00 - 0.10 [facility] #NRBC 0.00 10^3/uL 0.00 - 0.00 [facility] ospital MANUAL DIFF SEE BELOW [facility] Segmented neutrophils/100 leukocytes in Blood by Manual count 76 % 37 - 80 [facility] %LYMPH 16 % 25 - 40 L [facility] al %MONO 8 % 3 - 8 [facility] RBC MORPH MORPH IS NORMAL [facility] ID Date Data Source [id number] 12/26/2019 11:48:00 AM EDT [facility] Name Value Range Interpretation Code Description Data Michelle rce(s) Supporting Document(s) TROPONIN T <0.01 NG/ML 0.00 - 0.10 [facility]ital TROPONIN T0.1 ng/ml Recommended as the c linical threshold value forTroponin T. ID Date Data Source [id number] 12/12/2019 12:03:00 PM EDT [facility] [address] [place] [address] PHONE: [phone] FAX: [phone] Name .................. : RITTER NATALIYA Martinez Acct Number.................. : [id number] ROOM. ................. : 100 MR Number ................... : [id number] Stay type ............. : O/P Discharge Date......... ... : Admit Date ......... : 12/09/19 Admit Phys .................... : MULLER HARD Date of ....... : 1995 Family Phys ................... : COLLAZO Telkonet Phone .......... ........ : [phone] Age ................................ : 24 Film# .................. .:[id number] Sex ................................. : F Unsigned transcriptions are preliminary reports and do not represent a medical or legal document HEPATIC [id number] COMPLETE:12/09/19 14:38 [facility] [id number] Reason(s): Nausea w Vomiting HEPATIC ULTRASOUND: COMPARISON: [...] rce(s) Supporting Document(s) ID Date Data Source [id number] 12/12/2019 10:57:00 [place] [address] PHONE: [phone] FAX: [phone] Name .................. : RITTER WHITLOCKELNiki Juan Acct Number.................. : [id number] ROOM. ................. : 100-1 MR Number ................... : [id number] Stay type ............. : O/P Discharge Date......... ... : Admit Date ......... : 12/09/19 Admit Phys .................... : RENZO HAM Date of ....... : 1995 Family Phys ................... : COLLAZO SCOT Phone .................. : [phone] Age ................................ : 24 Film# .................. .:[id number] Sex ................................. : F Unsigned transcriptions are preliminary reports and do not represent a medical or legal document CT ABD & PELVIS W/ IV ONLY [id number] COMPLETE:12/09/19 16:05 RLB [id number] Reason(s): Abdominal Pain CT OF THE ABDOMEN [...] lacey: No adenopathy. Page 1 of 2 [facility] [address] [place] [address] PHONE: [phone] FAX: [phone] Name .................. : RITTER NATALIYA Martinez Acct Number.................. : [id number] ROOM. ................. : [address] [place] [address] Number ................... : [id number] Stay type ............. : O/P Discharge Date......... ... : Admit Date ......... : 12/09/19 Admit Phys .................... : MULLER HARD Date of ....... : 1995 Family Phys ................... : COLLAZO MARIBEL Phone .................. : [phone] Age ................................ : 24 Film# .................. .:[id number] Sex ................................. : F Unsigned transcriptions are preliminary reports and do not represent a medical or legal document CT ABD & PELVIS W/ IV ONLY [id number] COMPLETE:12/09/19 16:05 RLB [id number] Reason(s): Abdominal Pain Vessels: Normal abdominal aorta [...] rce(s) Supporting Document(s) ID Date Data Source [id number] 12/12/2019 10:55:00 AM EDT [facility] [address] [place] [address] PHONE: [phone] FAX: [phone] Name .................. : RITTER NATALIYA Martinez Acct Number.................. : [id number] ROOM. ................. : 100-1 MR Number ................... : [id number] Stay type ............. : O/P Discharge Date......... ... : Admit Date ......... : 12/09/19 Admit Phys .................... : MULLER HARD Date of ....... : 1995 Family Phys ................... : COLLAZO SCOT Phone .......... ........ : [phone] Age ................................ : 24 Film# .................. .:[id number] Sex ................................. : F Unsigned transcriptions are preliminary reports and do not represent a medical or legal document CHEST 2 VIEWS [id number] COMPLETE:12/09/19 16:01 ARS [id number] Reason(s): upper abd pain CHEST X-RAY: PA [...] rce(s) Supporting Document(s) ID Date Data Source [id number] 12/11/2019 03:11:00 PM EDT [facility] Name Value Range Interpretation Code Description Data Michelle rce(s) Supporting Document(s) Potassium [Moles/volume] in Serum or Plasma 3.5 mEq/L 3.6 - 5.0 L [facility] ID Date Data Source [id number] 12/11/2019 11:52:00 AM EDT [facility] Value Range Interpretation Code Description Data Michelle rce(s) Supporting Document(s) Potassium [Moles/volume] in Serum or Plasma 3.3 mEq/L 3.6 - 5.0 L [facility] ID Date Data Source [id number] 12/11/2019 10:11:00 AM EDT [facility] Name Value Range Interpretation Code Description Data Michelle rce(s) Supporting Document(s) Folate [Mass/volume] in Serum or Plasma 11.2 NG/ML 5.0 - 27.2 [facility] ID Date Data Source [id number] 12/11/2019 08:22:00 AM EDT [facility] Value Range Interpretation Code Description Data Michelle rce(s) Supporting Document(s) Magnesium [Mass/volume] in Serum or Plasma 1.7 MG/DL 1.7 - 2.2 [facility] ID Date Data Source [id number] 12/11/2019 07:46:00 AM EDT [facility] Name Value Range Interpretation Code Description Data Michelle rce(s) Supporting Document(s) CBC W/AUTOMATED DIFF [facility] COMPLETE BLOOD COUNT Leukocytes [#/volume] in Blood by Automated count 6.2 10^3/uL 4.2 - 1 1.0 [facility] Erythrocytes [#/volume] in Blood by Automated count 3.94 10^6/uL 4. 20 - 5.40 L [facility] Hemoglobin [Mass/volume] in Blood 12.3 g/dL 12.0 - 16.0 [facility] Hematocrit [Volume Fraction] of Blood by Automated count 36.9 % 3 7.0 - 47.0 L [facility] Erythrocyte mean corpuscular volume [Entitic volume] by Auto mated count 93.7 fL 81.0 - 101 [facility] Erythrocyte mean corpuscular hemoglobin [Entitic mass] by Automated count 31.2 pg 27.0 - 34.0 [facility] Erythrocyte mean corpuscular hemoglobin concentration [Mass/volume] by Automated count 33.3 g/dL 31.0 - 36.0 [facility] Erythrocyte distribution width [Ratio] by Automated count 12.4 % 11.5 - 14.5 [facility] Platelets [#/volume] in Blood by Automated count 178 10^3/uL 150 - 45 0 [facility] Platelet mean volume [Entitic volume] in Blood by Automated count 10.0 fL 7.4 - 10.4 [facility] Neutrophils/100 leukocytes in Blood by Automated count 54.4 % 37. 0 - 80.0 [facility] Lymphocytes/100 leukocytes in Blood by Manual count 38.0 % 25.0 - 40.0 [facility] Monocytes/100 leukocytes in Blood by Automated count 6.0 % 3.0 - 8.0 [facility] Eosinophils/100 leukocytes in Blood by Automated count 1.0 % 0.0 - 7.0 [facility] Basophils/100 leukocytes in Blood by Automated count 0.3 % 0.0 - 2.5 [facility] %IG 0.3 % 0.0 - 0.0 H [facility] al %NRBC 0.0 % 0.0 - 0.0 [facility] al Neutrophils [#/volume] in Blood by Automated count 3.36 10^3/uL 2.00 - 6.90 [facility] Lymphocytes [#/volume] in Blood by Automated count 2.35 10^3/uL 0.60 - 3.40 [facility] Monocytes [#/volume] in Blood by Automated count 0.37 10^3/uL 0.00 - 0.90 [facility] Eosinophils [#/volume] in Blood by Automated count 0.06 10^3/uL 0.00 - 0.70 [facility] Basophils [#/volume] in Blood by Automated count 0.02 10^3/uL 0.00 - 0.20 [facility] #IG 0.02 10^3/uL 0.00 - 0.10 [facility] #NRBC 0.00 10^3/uL 0.00 - 0.00 [facility] MANUAL DIFF NOT INDICATED [facility] RBC MORPH NOT INDICATED [facility] spital ID Date Data Source [id number] 12/11/2019 07:44:00 AM EDT [facility] Name Value Range Interpretation Code Description Data Michelle rce(s) Supporting Document(s) COMPREHENSIVE METABOLIC PANEL [facility] COMPREHENSIVE METABOLIC PANEL Sodium [Moles/volume] in Serum or Plasma 140 mEq/L 134 - 153 [facility] Potassium [Moles/volume] in Serum or Plasma 3.0 mEq/L 3.6 - 5.0 L [facility] Chloride [Moles/volume] in Serum or Plasma 105 mEq/L 98 - 107 [facility] Carbon dioxide, total [Moles/volume] in Serum or Plasma 26 MEQ/L 22 - 30 [facility] Glucose [Mass/volume] in Serum or Plasma 89 MG/DL 65 - 110 [facility] BUN 6 MG/DL 7 - 21 L [facility] Creatinine [Mass/volume] in Serum or Plasma 0.4 MG/DL 0.7 - 1.5 L [facility] BUN/CREAT 15 8 - 27 [facility] al Protein [Mass/volume] in Serum or Plasma 5.9 G/DL 6.3 - 8.2 L [facility] Albumin [Mass/volume] in Serum or Plasma 4.0 G/DL 3.9 - 5.0 [facility] Globulin [Mass/volume] in Serum by calculation 1.9 GM/DL 2.4 - 3.2 L [facility] A/G RATIO 2.1 0.8 - 2.0 H [facility] Calcium [Mass/volume] in Serum or Plasma 8.8 MG/DL 8.4 - 10.2 [facility] Bilirubin.total [Mass/volume] in Serum or Plasma 1.1 MG/DL 0.2 - 1.3 [facility] Alkaline phosphatase [Enzymatic activity/volume] in Serum or Plasma 52 U/L 38 - 126 [facility] Aspartate aminotransferase [Enzymatic activity/volume] in Serum or Plasma 31 U/L 5 - 40 [facility] Alanine aminotransferase [Enzymatic activity/volume] in Seru m or Plasma 48 U/L 7 - 56 [facility] Anion gap 3 in Serum or Plasma 9.0 mmol/L 8.0 - 16.0 [facility] AGE 24 yrs [facility] NON-AA GFR >60 mL/min [facility] ital AFR AMER GFR >60 mL/min [facility] Male GFR In terprentation [...] >32 mL/min Normal ID Date Data Source [id number] 12/09/2019 12:55:00 PM EDT [facility] 1 OrderSheet [facility] Emergency Department [address] [place] [address] Phone #: ext- [phone] 12/09/2019 12:30 Patient: [...] 12/09/2019 14:04 Bernard Patel RN 2 OrderSheet [facility] Emergency Department [address] [place] [address] Phone #: ext- [phone] 12/09/2019 12:30 -------- Patient: NATALIYA BEASLEY Sex: [...] Petermeq/100mL Imtiaz Patel RN P.A.-C; 3 OrderSheet [facility] Emergency Department [address] [place] [address] Phone #: ext- [phone] 12/09/2019 12:30 Patient: NATALIYA BEASLEY Sex: F : 1995 Age: 24yBenadryl 25 mg IVP 15:33 12/09/2019 15:39 [place],X1 dose: 25 mg Imtiaz Galvan R.N.(NOW x1) P.A.-C;GENERAL ORDERSOrder Description Priority Entered Acknowledged InitialedAccucheck 13:12/09/2019 14:22 Bernard Patel RN P.A.-C;NPO 13:12/09/2019 14:04 Bernard Patel RN P.A.-C;Saline Lock 13:12/09/2019 14:04 Bernard Patel RN P.A.-C;EKG 13:12/09/2019 14:04 Bernard Patel RN P.A.-C;Metal Forger'S Assistant 13:12/09/2019 14:04 Bernard(continuous) Imtiaz Patel RN P.A.-C;Pulse oximeter 13:12/09/2019 14:04 Bernard(Continuous) Imtiaz Patel RN P.A.-C;[Electronically signed by Bernard Patel RN (17:12/09/2019)][Electronically signed by Imtiaz EspañaASveta-Lester (11:12/10/2019)][Electronically locked by Bernard Patel RN (17:12/09/2019)] Name Value Range Interpretation Code Description Data Michelle rce(s) Supporting Document(s) ID Date Data Source [id number] 12/09/2019 12:55:00 PM EDT [facility] 1 Medication Reconciliation Report [facility] Emergency Department [address] [place] [address] Phone #: ext- [phone] 12/09/2019 12:30 Patient: [...] rce(s) Supporting Document(s) ID Date Data Source [id number] 12/09/2019 12:55:00 PM EDT [facility] 1 Medication Administration Record [facility] Emergency Department [address] [place] [address] Phone #: ext- [phone] 12/09/2019 12:30 Patient: NATALIYA BEASLEY Sex: F : 1995 Age: 24yWeight: 58.9 kgHeight/Length: 62 inBMI: 23.8ALLERGIES: None, Sulfa Antibiotics Date/Time Medication Administered Medication OrderedStart IV NS IV NS : Bolus 500 mL, then 17329:06 12/09/2019 Dose: IV Fluids mL/Lissette Patel RN [...] 100 mL bag14:56 12/09/2019 Site: #1 right [facility] Dylon Macias PEPCID [IVPB] Pepcid IVPB 20 mg/50mL (NOW14:58 12/09/2019 Dose: 20 mg IVPB x1, Infuse over 30 minutes.)Bernard Patel RN Rate: 100 mL/hr over 30 minute(s)---- Dispensed: 50 mL bagStop Site: #1 right upper arm15:41 12/09/2019Jorgito Martinez KCL LIQUID PO KCl Liquid PO 40 meq15:01 12/09/2019 Dose: 40 meq Syrup/Liquid Dylon Kaplan KCL [IVPB] KCl IVPB 10 meq/385hG70:02 12/09/2019 Dose: 10 meq IVCarlyle Patel RN Rate: 100 mL/hr over 1 hour(s)---- Dispensed: 100 mL bagStop Site: #1 right upper arm17:02 12/09/2019Jorgito Martinez BENADRYL [IVP] (DIPHENHYDRAMINE Benadryl 25 mg IVP X1 dose: 2515:25 12/09/2019 HCL) mg (NOW x1)Mandy Alvarez R.N. Dose: 25 mg IVP In: NS 10 mL Site: #1 right upper arm 2 Medication Administration Record [facility] Emergency Department [address] [place] [address] Phone #: ext- [phone] 12/09/2019 12:30 Patient: NATALIYA BEASLEY Sex: F : 1995 Age: 24y Name Value Range Interpretation Code Description Data Michelle rce(s) Supporting Document(s) ID Date Data Source [id number] 12/09/2019 12:55:00 PM EDT [facility] 1 General Instructions [facility] Emergency Department [address] [place] [address] Phone #: ext- [phone] 12/09/2019 12:30 Patient: [...] or muscle cramps Dizziness 2 General Instructions [facility] Emergency Department [address] [place] [address] Phone #: ext- [phone] 12/09/2019 12:30 Patient: NATALIYA BEASLEY Sex: F : 1995 Age: 24yCall 911Call 911 if any of the following occur: Irregular heartbeat, extra beats, or very fast heart rate Loss of [facility] sciousness [id number] [employer]. [address] [place] [id number]. All rights reserved. This information is not intended as asubstitute for professional medical care. Always follow your healthcare professional's instructions. You have been given the following additional information: Hypokalemia(Electronically signed by Imtiaz España P.A.-C 12/10/2019 11:00) Name Value Range Interpretation Code Description Data Michelle rce(s) Supporting Document(s) ID Date Data Source [id number] 12/09/2019 12:55:00 PM EDT [facility] 1 Clinical Report - Nurses [facility] Emergency Department [address] [place] [address] Phone #: ext- [phone] 12/09/2019 12:30 Patient: NATALIYA BEASLEY Sex: F : 1995 Age: 24yTRIAGEArrived by private vehicle. Historian: patient. Accompanied by family. ( here on Thursday for vomitand it continues today).Acuity: LEVEL 3.Chief Complaint: ABDOMINAL PAIN, NAUSEA and VOMITING.Alert.Onset. (thursday). The patient has had nausea, vomiting and abdominal pain. The pain is described aslocated in the upper abdomen.Treatment GEOSPATIAL IMAGE ANALYST:None.SEPSIS SCREEN: SIRS Screen negative. Sepsis Screen negative. [...] Kemp R.N. 2 Clinical Report - Nurses [facility] Emergency Department [address] [place] [address] Phone #: ext- [phone] 12/09/2019 12:30 Patient: [...] Kemp R.N. 3 Clinical Report - Nurses [facility] Emergency Department [address] [place] [address] Phone #: ext- [phone] 12/09/2019 12:30 Patient: NATALIYA BEASLEY Sex: F : 1995 Age: 24y13:13 12/09/2019 Site #1 started via IV in the right upper arm with an 20g angiocath, with aseptictechnique and good blood return; one attempt. Saline lock flushed with 10 mL saline. --13:13 12/09/19DAISY Martinezatiscott transported to sonogram by wheelchair with dental equipment technician. --13:38 12/09/19 DAISY Martinezatiscott returned from sonogram by wheelchair with dental equipment technician. --13:58 12/09/19 Bernard Patel RN14:12/09/2019 Started bag [...] to the PA. --14:13 12/09/19Mando ibrahim ER Test Grader( FSBS 107). --14:20 12/09/19 Bernard Patel RN14:12/09/2019 [...] --14:56 12/09/19 4 Clinical Report - Nurses [facility] Emergency Department [address] [place] [address] Phone #: ext- [phone] 12/09/2019 12:30 Patient: [...] to radiology and CT by wheelchair with dental equipment technician. --15:47 12/09/19 Bernard Patel RN16:02 12/09/2019 [...] EASTON Thomas 5 Clinical Report - Nurses [facility] Emergency Department [address] [place] [address] Phone #: ext- [phone] 12/09/2019 12:30 Patient: NATALIYA BEASLEY Sex: F : 1995 Age: 24y Patient returned from radiology and CT by wheelchair with dental equipment technician. --16:02 12/09/19 Bernard Patel RN 16:05 [...] rce(s) Supporting Document(s) ID Date Data Source [id number] 12/09/2019 12:55:00 PM EDT [facility] 1 Clinical Report - Physicians/Mid Levels [facility] Emergency Department [address] [place] [address] Phone #: ext- [phone] 12/09/2019 12:30 Patient: [...] no improvement of N/V. Seen here in [facility] ER 2 days ago w ith [...] Oral. 2 Clinical Report - Physicians/Mid Levels [facility] Emergency Department [address] [place] [address] Phone #: ext- [phone] 12/09/2019 12:30 Patient: [...] X-RAYS, AND EKGEKG: Sinus rhythem w/ short NC; nonspecific ST abnormality; prolonged QT; abnormal ECG. Discussed and reviewed with/by attending. Compared previous on . Chest X-ray: (Mikaela hampton Alan - 12/09/2019 3:51:33 PM nad). The X- rays were interpreted by the radiologist. CT Abdomen - Pelvis: Mikaela hampton Alan - 12/09/2019 4:05:21 PM No acute disease. The study was interpreted by the radiologist. 3 Clinical Report - Physicians/Mid Levels [facility] Emergency Department [address] [place] [address] Phone #: ext- [phone] 12/09/2019 12:30 Patient: [...] abd painTRANSPORTATION: WC IV? O2? Oxygen?(No) Room: [facility] w Diff: (ANGELY: 12/09/2019 14:15) ( MsgRcvd [...] BACK CHAYA MCCORMACK ER BY: LINDA DATE/TIME [id number] Clinical Report - Physicians/Mid Levels [facility] Emergency Department [address] [place] [address] Phone #: ext- [phone] 12/09/2019 12:30 Patient: [...] Male GFR Interprentation 20-49 yrs >60 mL/min Gdoksp91-59 yrs >56 mL/min Normal 60-69 yrs >49 mL/min Normal 70-79yrs>42 mL/min Normal 80 and above >35 mL/min Normal Female GFRInterpretation 20-39 yrs >60 mL/min Normal 40-49 yrs >58 mL/minNormal 50-59 yrs >51 mL/min Normal 60-69 yrs >45 mL/min Vttpgh66- 79 yrs >39 mL/min Normal 80 and above >32 mL/min NormalLipase: (ANGELY: 12/09/2019 14:15) ( [facility] 12/09/2019 14:51) Final results Test Result Flag Units (Reference) LIPASE 12 L U/L (13 - 60)PT/INR: (ANGELY: 12/09/2019 14:15) ( [facility] 12/09/2019 14:38) Final results Test Result Flag [...] NEGATIVE (NORMAL: NEGAT { KIT LOT # [id number] ){ KIT EXP DATE02.27.21 ){ PROCEDURAL CONTROL VALID)Troponin-T: (ANGELY: 12/09/2019 14:15) ( MsgRcvd 12/09/2019 14:51) Final results Test Result Flag Units (Reference) 5 Clinical Report - Physicians/Mid Levels [facility] Emergency Department [address] [place] [address] Phone #: ext- [phone] 12/09/2019 12:30 Patient: [...] better. 6 Clinical Report - Physicians/Mid Levels [facility] Emergency Department [address] [place] [address] Phone #: ext- [phone] 12/09/2019 12:30 Patient: NATALIYA BEASLEY Sex: F [...] rce(s) Supporting Document(s) ID Date Data Source [id number] 12/10/2019 08:37:00 AM EDT [facility] Name Value Range Interpretation Code Description Data Michelle rce(s) Supporting Document(s) CBC W/AUTOMATED DIFF [facility] COMPLETE BLOOD COUNT Leukocytes [#/volume] in Blood by Automated count 6.9 10^3/uL 4.2 - 1 1.0 [facility] Erythrocytes [#/volume] in Blood by Automated count 4.03 10^6/uL 4. 20 - 5.40 L [facility] Hemoglobin [Mass/volume] in Blood 12.5 g/dL 12.0 - 16.0 [facility] Hematocrit [Volume Fraction] of Blood by Automated count 37.7 % 3 7.0 - 47.0 [facility] Erythrocyte mean corpuscular volume [Entitic volume] by Auto mated count 93.5 fL 81.0 - 101 [facility] Erythrocyte mean corpuscular hemoglobin [Entitic mass] by Automated count 31.0 pg 27.0 - 34.0 [facility] Erythrocyte mean corpuscular hemoglobin concentration [Mass/volume] by Automated count 33.2 g/dL 31.0 - 36.0 [facility] Erythrocyte distribution width [Ratio] by Automated count 12.9 % 11.5 - 14.5 [facility] Platelets [#/volume] in Blood by Automated count 185 10^3/uL 150 - 45 0 [facility] Platelet mean volume [Entitic volume] in Blood by Automated count 10.1 fL 7.4 - 10.4 [facility] Neutrophils/100 leukocytes in Blood by Automated count 66.1 % 37. 0 - 80.0 [facility] Lymphocytes/100 leukocytes in Blood by Manual count 25.3 % 25.0 - 40.0 [facility] Monocytes/100 leukocytes in Blood by Automated count 7.4 % 3.0 - 8.0 [facility] Eosinophils/100 leukocytes in Blood by Automated count 0.3 % 0.0 - 7.0 [facility] Basophils/100 leukocytes in Blood by Automated count 0.6 % 0.0 - 2.5 [facility] %IG 0.3 % 0.0 - 0.0 [facility] %NRBC 0.0 % 0.0 - 0.0 [facility] al Neutrophils [#/volume] in Blood by Automated count 4.55 10^3/uL 2.00 - 6.90 [facility] Lymphocytes [#/volume] in Blood by Automated count 1.74 10^3/uL 0.60 - 3.40 [facility] Monocytes [#/volume] in Blood by Automated count 0.51 10^3/uL 0.00 - 0.90 [facility] Eosinophils [#/volume] in Blood by Automated count 0.02 10^3/uL 0.00 - 0.70 [facility] Basophils [#/volume] in Blood by Automated count 0.04 10^3/uL 0.00 - 0.20 [facility] #IG 0.02 10^3/uL 0.00 - 0.10 [facility] #NRBC 0.00 10^3/uL 0.00 - 0.00 [facility] MANUAL DIFF NOT INDICATED [facility] RBC MORPH NOT INDICATED [facility] ID Date Data Source [id number] 12/10/2019 08:35:00 AM EDT [facility] Name Value Range Interpretation Code Description Data Michelle rce(s) Supporting Document(s) COMPREHENSIVE METABOLIC PANEL [facility] COMPREHENSIVE METABOLIC PANEL Sodium [Moles/volume] in Serum or Plasma 141 mEq/L 134 - 153 [facility] Potassium [Moles/volume] in Serum or Plasma 3.6 mEq/L 3.6 - 5.0 [facility] Chloride [Moles/volume] in Serum or Plasma 107 mEq/L 98 - 107 [facility] Carbon dioxide, total [Moles/volume] in Serum or Plasma 27 MEQ/L 22 - 30 [facility] Glucose [Mass/volume] in Serum or Plasma 89 MG/DL 65 - 110 [facility] BUN 10 MG/DL 7 - 21 [facility] al Creatinine [Mass/volume] in Serum or Plasma 0.4 MG/DL 0.7 - 1.5 L [facility] BUN/CREAT 25 8 - 27 [facility] al Protein [Mass/volume] in Serum or Plasma 6.2 G/DL 6.3 - 8.2 L [facility] Albumin [Mass/volume] in Serum or Plasma 4.3 G/DL 3.9 - 5.0 [facility] Globulin [Mass/volume] in Serum by calculation 1.9 GM/DL 2.4 - 3.2 L [facility] A/G RATIO 2.3 0.8 - 2.0 H [facility] Calcium [Mass/volume] in Serum or Plasma 9.0 MG/DL 8.4 - 10.2 [facility] Bilirubin.total [Mass/volume] in Serum or Plasma 0.9 MG/DL 0.2 - 1.3 [facility] Alkaline phosphatase [Enzymatic activity/volume] in Serum or Plasma 52 U/L 38 - 126 [facility] Aspartate aminotransferase [Enzymatic activity/volume] in Serum or Plasma 27 U/L 5 - 40 [facility] Alanine aminotransferase [Enzymatic activity/volume] in Seru m or Plasma 38 U/L 7 - 56 [facility] Anion gap 3 in Serum or Plasma 7.0 mmol/L 8.0 - 16.0 L [facility] AGE 24 yrs [facility] NON-AA GFR >60 mL/min [facility] ital AFR AMER GFR >60 mL/min [facility] Male GFR In terprentation [...] >32 mL/min Normal ID Date Data Source [id number] 12/10/2019 11:51:00 AM EDT [facility] Name Value Range Interpretation Code Description Data Michelle rce(s) Supporting Document(s) Magnesium [Mass/volume] in Serum or Plasma 1.9 MG/DL 1.7 - 2.2 [facility] ID Date Data Source [id number] 12/09/2019 10:55:00 [place] [address] PHONE: [phone] FAX: [phone] Name ..............: RITTER NATALIYA Martinez Acct Number ...........................: [id number] ROOM. ............: [facility] Number ............................: [id number] Stay type.........: O/P Discharge Date...............: Admit Date .....: 12/09/19 Admit Phys .............................: MULLER HARD Date of ..: 1995 Family Phys ...........................: COLLAZO SCOT Phone..............: [phone] Age .................................:24 Film# ...............:[id number] Sex.................................:F Unsigned transcriptions are preliminary reports and do not represent a medical or legal document EKG [id number] COMPLETE:12/09/19 16:25 CJM [id number] Please See Scanned Results. Name Value Range Interpretation Code Description Data Michelle rce(s) Supporting Document(s) ID Date Data Source [id number] 12/09/2019 06:23:00 PM EDT [facility] Name Value Range Interpretation Code Description Data Michelle rce(s) Supporting Document(s) BASIC METABOLIC PANEL [facility] BASIC METABOLIC PANEL Sodium [Moles/volume] in Serum or Plasma 137 mEq/L 134 - 153 [facility] Potassium [Moles/volume] in Serum or Plasma 2.7 mEq/L 3.6 - 5.0 LL [facility] CALL/ READ BACK PROSPER [facility] BY: LINDA [facility] DATE/TIME [id number] [facility] Chloride [Moles/volume] in Serum or Plasma 99 mEq/L 98 - 107 [facility] Carbon dioxide, total [Moles/volume] in Serum or Plasma 24 MEQ/L 22 - 30 [facility] Glucose [Mass/volume] in Serum or Plasma 96 MG/DL 65 - 110 [facility] BUN 9 MG/DL 7 - 21 [facility] Creatinine [Mass/volume] in Serum or Plasma 0.5 MG/DL 0.7 - 1.5 L [facility] BUN/CREAT 18 8 - 27 [facility] Calcium [Mass/volume] in Serum or Plasma 9.0 MG/DL 8.4 - 10.2 [facility] Anion gap 3 in Serum or Plasma 14.0 mmol/L 8.0 - 16.0 [facility] AGE 24 y[facility] A[facility] AMER GFR >60 mL/min [facility] NON-AA GFR >60 mL/min [facility] ital Male GFR Inter prentation [...] >32 mL/min Normal ID Date Data Source [id number] 12/09/2019 06:23:00 PM EDT [facility] Name Value Range Interpretation Code Description Data Michelle rce(s) Supporting Document(s) BNP 147 PG/ML 0 - 125 H [facility] ID Date Data Source [id number] 12/09/2019 05:22:00 PM EDT [facility] Name Value Range Interpretation Code Description Data Michelle rce(s) Supporting Document(s) MONO TEST NEGATIVE NORMAL: NEGATIVE [facility] MONO REENTER NEGATIVE NORMAL: NEGATIVE [facility] { KIT LOT # [id number] ){ KIT EXP DATE 04.16.21 ){ PROCEDURAL CONTROL VALID ) ID Date Data Source [id number] 12/09/2019 02:56:00 PM EDT [facility] Name Value Range Interpretation Code Description Data Michelle rce(s) Supporting Document(s) COMPREHENSIVE METABOLIC PANEL [facility] COMPREHENSIVE METABOLIC PANEL Sodium [Moles/volume] in Serum or Plasma 139 mEq/L 134 - 153 [facility] Potassium [Moles/volume] in Serum or Plasma 2.7 mEq/L 3.6 - 5.0 LL [facility] CALL/ READ BACK CHAYA REEL REPAIRER [facility] BY: LINDA [facility] DATE/TIME [id number] [facility] Chloride [Moles/volume] in Serum or Plasma 100 mEq/L 98 - 107 [facility] Carbon dioxide, total [Moles/volume] in Serum or Plasma 24 MEQ/L 22 - 30 [facility] Glucose [Mass/volume] in Serum or Plasma 102 MG/DL 65 - 110 [facility] BUN 11 MG/DL 7 - 21 [facility] Creatinine [Mass/volume] in Serum or Plasma 0.6 MG/DL 0.7 - 1.5 L [facility] BUN/CREAT 18 8 - 27 [facility] Protein [Mass/volume] in Serum or Plasma 7.1 G/DL 6.3 - 8.2 [facility] Albumin [Mass/volume] in Serum or Plasma 4.7 G/DL 3.9 - 5.0 [facility] Globulin [Mass/volume] in Serum by calculation 2.4 GM/DL 2.4 - 3.2 [facility] A/G RATIO 2.0 0.8 - 2.0 [facility] Calcium [Mass/volume] in Serum or Plasma 9.5 MG/DL 8.4 - 10.2 [facility] Bilirubin.total [Mass/volume] in Serum or Plasma 1.0 MG/DL 0.2 - 1.3 [facility] Alkaline phosphatase [Enzymatic activity/volume] in Serum or Plasma 64 U/L 38 - 126 [facility] Aspartate aminotransferase [Enzymatic activity/volume] in Serum or Plasma 23 U/L 5 - 40 [facility] Alanine aminotransferase [Enzymatic activity/volume] in Seru m or Plasma 37 U/L 7 - 56 [facility] Anion gap 3 in Serum or Plasma 15.0 mmol/L 8.0 - 16.0 [facility] AGE 24 yrs [facility] NON-AA GFR >60 mL/min [facility] ital AFR AMER GFR >60 mL/min [facility] Male GFR In terprentation [...] >32 mL/min Normal ID Date Data Source [id number] 12/09/2019 02:51:00 PM EDT [facility] Name Value Range Interpretation Code Description Data Michelle rce(s) Supporting Document(s) TROPONIN T <0.01 NG/ML 0.00 - 0.10 [facility] ospital TROPONIN T0.1 ng/ml Recommended as the c linical threshold value forTroponin T. ID Date Data Source [id number] 12/09/2019 02:51:00 PM EDT [facility] Name Value Range Interpretation Code Description Data Michelle rce(s) Supporting Document(s) Magnesium [Mass/volume] in Serum or Plasma 1.6 MG/DL 1.7 - 2.2 L [facility] ID Date Data Source [id number] 12/09/2019 02:51:00 PM T [facility] Name Value Range Interpretation Code Description Data Michelle rce(s) Supporting Document(s) Lipase [Enzymatic activity/volume] in Serum or Plasma 12 U/L 13 - 60 L [facility] ID Date Data Source [id number] 12/09/2019 02:42:00 PM EDT [facility] Name Value Range Interpretation Code Description Data Michelle rce(s) Supporting Document(s) HCG SERUM QUAL NEGATIVE NORMAL: NEGATIVE [facility] HCG SERUM QL REENTER NEGATIVE NORMAL: NEGATIVE [facility] { KIT LOT # [id number] ){ KIT EXP DATE 02.27.21 ){ PROCEDURAL CONTROL VALID ) ID Date Data Source [id number] 12/09/2019 02:38:00 PM EDT [facility] Name Value Range Interpretation Code Description Data Michelle rce(s) Supporting Document(s) Prothrombin time (PT) 12.4 SECONDS 11.0 - 15.5 [facility] INR in Platelet poor plasma by Coagulation assay 0.91 0.93 - 1. 23 L [facility] \\BLDo\\INR INTERPRETATION\\BLDx\\ Therapeutic range for Coumadin and related oral anticoagulants. - International Normalized Ratio (INR): 2.0 - 3.0 for Venous Thrombosis, Pulmonary Embolus, Tissue heart valves, Acute IL, Atrial Fibrillation, Valvular heart disease and recurrent Systemic Embolism. -International Normalized Ratio (INR): 2.5 - 3.5 for Mechanical Prosthetic valve. ID Date Data Source [id number] 12/09/2019 02:25:00 PM EDT [facility] Name Value Range Interpretation Code Description Data Michelle rce(s) Supporting Document(s) CBC W/AUTOMATED DIFF [facility] COMPLETE BLOOD COUNT Leukocytes [#/volume] in Blood by Automated count 9.9 10^3/uL 4.2 - 1 1.0 [facility] Erythrocytes [#/volume] in Blood by Automated count 4.28 10^6/uL 4. 20 - 5.40 [facility] Hemoglobin [Mass/volume] in Blood 13.3 g/dL 12.0 - 16.0 [facility] Hematocrit [Volume Fraction] of Blood by Automated count 38.8 % 3 7.0 - 47.0 [facility] Erythrocyte mean corpuscular volume [Entitic volume] by Auto mated count 90.7 fL 81.0 - 101 [facility] Erythrocyte mean corpuscular hemoglobin [Entitic mass] by Automated count 31.1 pg 27.0 - 34.0 [facility] Erythrocyte mean corpuscular hemoglobin concentration [Mass/volume] by Automated count 34.3 g/dL 31.0 - 36.0 [facility] Erythrocyte distribution width [Ratio] by Automated count 12.7 % 11.5 - 14.5 [facility] Platelets [#/volume] in Blood by Automated count 282 10^3/uL 150 - 45 0 [facility] Platelet mean volume [Entitic volume] in Blood by Automated count 9.3 fL 7.4 - 10.4 [facility] Neutrophils/100 leukocytes in Blood by Automated count 77.7 % 37. 0 - 80.0 [facility] Lymphocytes/100 leukocytes in Blood by Manual count 15.6 % 25.0 - 40.0 L [facility] Monocytes/100 leukocytes in Blood by Automated count 6.2 % 3.0 - 8.0 [facility] Eosinophils/100 leukocytes in Blood by Automated count 0.0 % 0.0 - 7.0 [facility] Basophils/100 leukocytes in Blood by Automated count 0.2 % 0.0 - 2.5 [facility] %IG 0.3 % 0.0 - 0.0 [facility] %NRBC 0.0 % 0.0 - 0.0 [facility] Neutrophils [#/volume] in Blood by Automated count 7.68 10^3/uL 2.00 - 6.90 H [facility] Lymphocytes [#/volume] in Blood by Automated count 1.54 10^3/uL 0.60 - 3.40 [facility] Monocytes [#/volume] in Blood by Automated count 0.61 10^3/uL 0.00 - 0.90 [facility] Eosinophils [#/volume] in Blood by Automated count 0.00 10^3/uL 0.00 - 0.70 [facility] Basophils [#/volume] in Blood by Automated count 0.02 10^3/uL 0.00 - 0.20 [facility] #IG 0.03 10^3/uL 0.00 - 0.10 [facility] [facility] #NRBC 0.00 10^3/uL 0.00 - 0.00 [facility] MANUAL DIFF NOT INDICATED [facility] RBC MORPH NOT INDICATED [facility] spital ID Date Data Source [id number] 12/09/2019 04:25:00 PM EDT [facility] Name Value Range Interpretation Code Description Data Michelle rce(s) Supporting Document(s) DRUG SCREEN URINE [facility] URINE DRUG SCREEN Amphetamine [Presence] in Urine by Screen method NEGATIVE NORMAL: N EGATIVE [facility] BARBITURATES NEGATIVE NORMAL: NEGATIVE [facility] BENZO NEGATIVE NORMAL: NEGATIVE [facility] COCAINE NEGATIVE NORMAL: NEGATIVE [facility] Tetrahydrocannabinol [Presence] in Urine PRESUMP POS NORMAL: NEGATIVE [facility] OPIATES NEGATIVE NORMAL: NEGATIVE [facility] Phencyclidine [Presence] in Urine by Screen method NEGATIVE NOR MAL: NEGATIVE [facility] \\BLDo\\URINE DRUG SCR EEN INTERPRETATION\\BLDx\\ THE CUTOFFF LEVELS FOR DETECTION ARE FOLLOWS: AMPHETAMINES 1000 ng/ml BARBITUARATES 200 ng/ml BENZODIAZEPINES 100 ng/ml THC 50 ng/ml PHENCYCLIDINE 25 ng/ml OPIATES 300 ng/ml COCAINE 300 ng/ml ALL POSITIVES ARE CONSIDERED PRESUMPTIVE POSITIVE CONFIRMATION WILL BE PERFORMED AT PHYSICIAN REQUEST. ID Date Data Source [id number] 12/09/2019 01:34:00 PM EDT [facility] Name Value Range Interpretation Code Description Data Michelle rce(s) Supporting Document(s) [facility] S[facility] R [facility] COLOR yellow NORMAL: Yellow [facility] CLARITY hazy NORMAL: Clear [facility] Specific gravity of Urine by Test strip 1.020 1.001 - 1.030 [facility] pH 6 5 - 9 [facility] Glucose [Mass/volume] in Urine by Test strip NORM NORMAL: Negat [facility] Bilirubin.total [Presence] in Urine by Test strip NEG NORMAL: Negative [facility] Ketones [Presence] in Urine by Test strip 15 NORMAL: Negative [facility] Protein [Mass/volume] in Urine by Test strip 30 NORMAL: Negat [facility] Nitrite [Presence] in Urine by Test strip NEG NORMAL: Negative [facility] BLOOD 150 NORMAL: Negative [facility] Leukocyte esterase [Presence] in Urine by Test strip 25 DAYLIN L: Negative [facility] Urobilinogen [Mass/volume] in Urine by Test strip 4 less tito n 1.0 mg/dL [facility] MICROSCOPIC See Below [facility] WBC 0 - 1 NORMAL: NONE SEEN [facility] Erythrocytes [#/volume] in Urine by Test strip 0 - 1 NORMAL: NON E SEEN [facility] EPITHELIAL MANY NORMAL: NONE SEEN [facility] Bacteria [Presence] in Urine sediment by Light microscopy 1+ SMALL NORMAL: NONE SEEN [facility] Amorphous sediment [Presence] in Urine sediment by Light chelsey roscopy 3+ NORMAL: NONE SEEN [facility] ID Date Data Source [id number] 12/09/2019 03:59:00 AM EDT [facility] [address] [place] [address] RESPIRATORY CARE REPORT ==== ---------NAME------- NUMBER SEX AGE ADMIT DISC. XRAY# F/C TYPERITTER NATALIYA Martinez [id number] F 24 12/07/19 12/07/19 [id number] X6B E/R DATE OF : 1995 M/R# [id number] #: [id number] LOCATION: EMERGENCY DEPT EKG [id number] COMP LETE:12/08/19 07:50 EWW [id number] PHYSICIAN: TANYA JACOBS Name Value Range Interpretation Code Description Data Michelle rce(s) Supporting Document(s) ID Date Data Source [id number] 12/07/2019 06:58:00 PM EDT [facility] 1 OrderSheet [facility] Emergency Department [address] [place] [address] Phone #: ext- [phone] 12/07/2019 18:51 Patient: [...] Description Priority Entered Acknowledged Initialed 2 OrderSheet [facility] Emergency Department [address] [place] [address] Phone #: ext- [phone] 12/07/2019 18:51 Patient: [...] M.D.;EKG 19:12/07/2019 19:13 Alexia Kemp Riccardo R.N. M.D.;Metal Forger'S Assistant 19:12/07/2019 19:13 Alexia Kemp(continuous) Leena Martínez R.N., M.D.;[Electronically signed by Mariano Melton R.N. (21:18 12/07/2019)][Electronically signed by Leena Martínez M.D. (22:34 12/07/2019)][Electronically locked by Mariano Melton R.N. (21:18 12/07/2019)] Name Value Range Interpretation Code Description Data Michelle rce(s) Supporting Document(s) ID Date Data Source [id number] 12/07/2019 06:58:00 PM EDT [facility] 1 Medication Reconciliation Report [facility] Emergency Department [address] [place] [address] Phone #: [phone]- [phone] 12/07/2019 18:51 Patient: NATALIYA BEASLEY Sex: F [...] days -- Dispense 20 tablet.Refills: 0. Substitution permitted.[facility] #51 - [address] [place] [address]. .Pepcid 20 mg tablet Take 1 tablet twice a day for 7 days -- Dispense 14 tablet. Refills: 0. Substitutionpermitted.[facility] #85 - [address] [place] [address]. . -- Leena Martínez M.D. Name Value Range Interpretation Code Description Data Michelle rce(s) Supporting Document(s) ID Date Data Source [id number] 12/07/2019 06:58:00 PM EDT [facility] 1 Medication Administration Record [facility] Emergency Department [address] [place] [address] Phone #: ext- [phone] 12/07/2019 18:51 Patient: NATALIYA BEASLEY Sex: F [...] NS IV 1000 mL Bolus: : Bolus [id number] 12/07/2019 Dose: IV Fluids mL (X1)Alexia Kemp [...] rce(s) Supporting Document(s) ID Date Data Source [id number] 12/07/2019 06:58:00 PM EDT [facility] 1 General Instructions [facility] Emergency Department [address] [place] [address] Phone #: ext- [phone] 12/07/2019 18:51 Patient: [...] Dispense 20 tablet.Refills: 0. Substitution permitted.Pharmacy - [email or web address] #40 - [address] ; [place] [address]. .Pepcid 20 mg tablet Take 1 tablet twice a day for 7 days -- Dispense 14 tablet. Refills: 0. Substitutionpermitted.[facility] #06 - [address] ; [place] [address]. .Follow-up:Return to the emergency department as needed. [...] to plan of care. 2 General Instructions [facility] Emergency Department [address] [place] [address] Phone #: ext- [phone] 12/07/2019 18:51 Patient: [...] and water are not available, use alcohol-based tassel snipper to keep from spreading the infection to [...] follow the diet below: 3 General Instructions [facility] Emergency Department [address] [place] [address] Phone #: ext- [phone] 12/07/2019 18:51 Patient: [...] higher, or as directed 4 General Instructions [facility] Emergency Department [address] [place] [address] Phone #: ext- [phone] 12/07/2019 18:51 Patient: NATALIYA BEASLEY Sex: F : 1995 Age: 24y Yellow color of the eyes or skin [phone] [employer]. [address] [place] [address], [place] [address]. All rights reserved. This information is not intended as asubstitute for professional medical care. Always follow your healthcare professional's instructions. You have been given the following additional information: Vomiting (Adult)(Electronically signed by Leena Martínez M.D. 12/07/2019 22:34) Name Value Range Interpretation Code Description Data Michelle rce(s) Supporting Document(s) ID Date Data Source [id number] 12/07/2019 06:58:00 PM EDT [facility] 1 Clinical Report - Nurses [facility] Emergency Department [address] [place] [address] Phone #: ext- [phone] 12/07/2019 18:51 Patient: [...] Last oral intake by patient was (9pm).Treatment GEOSPATIAL IMAGE ANALYST:None.SEPSIS SCREEN: SIRS Screen negative. Sepsis Screen negative. [...] no deficiencies. 2 Clinical Report - Nurses [facility] Emergency Department [address] [place] [address] Phone #: ext- [phone] 12/07/2019 18:51 Patient: [...] / : Abdomen soft. --19:00 12/07/19 Carmela Ocapmo RN GENERAL / NEURO / PSYCH: Alert. [...] angiocath; one attempt. Blood drawn. --18:57 12/07/19 Cramela Ocampo RN 19:06 12/07/2019 Site #2 started via IV in the left antecubital space with an 20g angiocath, with aseptic technique and good blood return; one attempt. Saline lock flushed. --19:12/07/19 Alexia Kemp R.N. 3 Clinical Report - Nurses [facility] Emergency Department [address] [place] [address] Phone #: ext- [phone] 12/07/2019 18:51 --------- Patient: NATALIYA BEASLEY Sex: [...] Melton R.N. 4 Clinical Report - Nurses [facility] Emergency Department [address] [place] [address] Phone #: ext- [phone] 12/07/2019 18:51 Patient: [...] Melton R.N. 5 Clinical Report - Nurses [facility] Emergency Department [address] [place] [address] Phone #: ext- [phone] 12/07/2019 18:51 Patient: [...] parent verbalized understanding. Written instructions provided in [place]. The patient was discharged by the physician. [...] rce(s) Supporting Document(s) ID Date Data Source [id number] 12/07/2019 06:58:00 PM EDT [facility] 1 Clinical Report - Physicians/Mid Levels [facility] Emergency Department [address] [place] [address] Phone #: ext- [phone] 12/07/2019 18:51 Patient: [...] allergies. 2 Clinical Report - Physicians/Mid Levels [facility] Emergency Depa rtment [address] [place] [address] Phone #: ext- [phone] 12/07/2019 18:51 Patient: [...] making process. ETOH: (ANGELY: 12/07/2019 19:00) ( [facility] 12/07/2019 19:44) Final results Test Result Flag Units (Reference) ALCOHOL ETHYL BLOOD CORRECTED REPORT ALCOHOL <10.0 MG/DL ALCOHOL % 0.00 % (0.00 - 0.01) *FOR MEDICAL PURPOSES ONLY* FOLLOWING RESULTS REPORTED IN ERROR ALCOHOL % { CORRECT CBC w Diff: (ANGELY: 12/07/2019 19:00) ( [facility] 12/07/2019 19:23) Final results Test Result Flag [...] 450) 3 Clinical Report - Physicians/Mid Levels [facility] Emergency Department [address] [place] [address] Phone #: ext- [phone] 12/07/2019 18:51 Patient: NATALIYA BEASLEY Sex: F [...] Male GFR Interprentation 20-49 yrs >60 mL/min Xqrcnm37-45 yrs >56 mL/min Normal 60-69 yrs >49 mL/min Normal 70-79yrs>42 mL/min Normal 80 and above >35 mL/min Normal Female GFRInterpretation 20-39 yrs >60 mL/min Normal 40-49 yrs >58 mL/minNormal 50-59 yrs >51 mL/min Normal 60-69 yrs >45 mL/min Mslxob12-43 yrs >39 mL/min Normal 80 and above >32 mL/min NormalLipase: (ANGELY: 12/07/2019 19:00) ( [facility] 12/07/2019 19:44) Final results Test Result Flag Units (Reference) LIPASE 12 L U/L (13 - 60)Beta-HCG, Qual Serum: (ANGELY: 12/07/2019 19:00) ( [facility] 12/07/2019 19:39) Final results Test Result Flag Units (Reference) HCG SERUM QUAL NEGATIVE (NORMAL: NEGAT 4 Clinical Report - Physicians/Mid Levels [facility] Emergency Department [address] [place] [address] Phone #: ext- [phone] 12/07/2019 18:51 Patient: NATALIYA BEASLEY Sex: F : 1995 Age: 24y HCG SERUM QL REENTER NEGATIVE (NORMAL: NEGAT { KIT LOT # [id number] ){ KIT EXP DATE 02.27.21 ){ PROCEDURAL CONTROL VALID ) Magnesium: (ANGELY: 12/07/2019 19:00) ( [facility] 12/07/2019 19:44) Final results Test Result Flag Units (Reference) MAGNESIUM 1.3 L MG/DL (1.7 - 2.2) Troponin-T: (ANGELY: 12/07/2019 19:00) ( [facility] 12/07/2019 19:42) Final results Test Result Flag [...] USE). 5 Clinical Report - Physicians/Mid Levels [facility] Emergency Department [address] [place] [address] Phone #: ext- [phone] 12/07/2019 18:51 Patient: [...] tablet. Refills: 0. Substitution permitted. Pharmacy - [email or web address]52 - [address] ; [place] [address]. . Pepcid 20 mg tablet Take 1 tablet twice a day for 7 days -- Dispense 14 tablet. Refills: 0. Substitution permitted. Pharmacy - [email or web address] #51 - [address] ; [place] [address]. . Follow- up: Return to the emergency [...] rce(s) Supporting Document(s) ID Date Data Source [id number] 12/07/2019 07:44:00 PM [facility] Name Value Range Interpretation Code Description Data Michelle rce(s) Supporting Document(s) Magnesium [Mass/volume] in Serum or Plasma 1.3 MG/DL 1.7 - 2.2 L [facility] ID Date Data Source [id number] 12/07/2019 07:44:00 PM [facility] Name Value Range Interpretation Code Description Data Michelle rce(s) Supporting Document(s) Lipase [Enzymatic activity/volume] in Serum or Plasma 12 U/L 13 - 60 L [facility] ID Date Data Source [id number] 12/07/2019 07:43:00 PM [facility] Name Value Range Interpretation Code Description Data Michelle rce(s) Supporting Document(s) ALCOHOL ETHYL BLOOD [facility] CORRECTE D REPORT Ethanol [Moles/volume] in Blood <10.0 MG/DL [facility] ALCOHOL % 0.00 % 0.00 - 0.01 [facility] ital *FOR MEDICAL PURPOSES ONLY * FOLLOWING RESULTS REPORTED IN ERROR ALCOHOL % { CORRECT ID Date Data Source [id number] 12/07/2019 07:43:00 PM EDT [facility] Name Value Range Interpretation Code Description Data Michelle rce(s) Supporting Document(s) COMPREHENSIVE METABOLIC PANEL [facility] COMPREHENSIVE METABOLIC PANEL Sodium [Moles/volume] in Serum or Plasma 140 mEq/L 134 - 153 [facility] Potassium [Moles/volume] in Serum or Plasma 4.4 mEq/L 3.6 - 5.0 [facility] Chloride [Moles/volume] in Serum or Plasma 94 mEq/L 98 - 107 L [facility] Carbon dioxide, total [Moles/volume] in Serum or Plasma 23 MEQ/L 22 - 30 [facility] Glucose [Mass/volume] in Serum or Plasma 127 MG/DL 65 - 110 H [facility] BUN 12 MG/DL 7 - 21 [facility] al Creatinine [Mass/volume] in Serum or Plasma 0.6 MG/DL 0.7 - 1.5 L [facility] BUN/CREAT 20 8 - 27 [facility] al Protein [Mass/volume] in Serum or Plasma 8.1 G/DL 6.3 - 8.2 [facility] Albumin [Mass/volume] in Serum or Plasma 5.1 G/DL 3.9 - 5.0 H [facility] Globulin [Mass/volume] in Serum by calculation 3.0 GM/DL 2.4 - 3.2 [facility] A/G RATIO 1.7 0.8 - 2.0 [facility] Calcium [Mass/volume] in Serum or Plasma 10.8 MG/DL 8.4 - 10.2 H [facility] Bilirubin.total [Mass/volume] in Serum or Plasma 0.8 MG/DL 0.2 - 1.3 [facility] Alkaline phosphatase [Enzymatic activity/volume] in Serum or Plasma 82 U/L 38 - 126 [facility] Aspartate aminotransferase [Enzymatic activity/volume] in Serum or Plasma 22 U/L 5 - 40 [facility] Alanine aminotransferase [Enzymatic activity/volume] in Seru m or Plasma 26 U/L 7 - 56 [facility] Anion gap 3 in Serum or Plasma 23.0 mmol/L 8.0 - 16.0 H [facility] AGE 24 yrs [facility] NON-AA GFR >60 mL/min [facility] AFR AMER GFR >60 mL/min [facility] Male GFR In terprentation [...] >32 mL/min Normal ID Date Data Source [id number] 12/07/2019 07:42:00 PM EDT [facility] Name Value Range Interpretation Code Description Data Michelle rce(s) Supporting Document(s) TROPONIN T <0.01 NG/ML 0.00 - 0.10 [facility] TROPONIN T0.1 ng/ml Recommended as the c linical threshold value forTroponin T. ID Date Data Source [id number] 12/07/2019 07:38:00 PM EDT [facility] Name Value Range Interpretation Code Description Data Michelle rce(s) Supporting Document(s) HCG SERUM QUAL NEGATIVE NORMAL: NEGATIVE [facility] HCG SERUM QL REENTER NEGATIVE NORMAL: NEGATIVE [facility] { KIT LOT # [id number] ){ KIT EXP DATE 02.27.21 ){ PROCEDURAL CONTROL VALID ) ID Date Data Source [id number] 12/07/2019 07:23:00 PM EDT [facility] Name Value Range Interpretation Code Description Data Michelle rce(s) Supporting Document(s) CBC W/AUTOMATED DIFF [facility] COMPLETE BLOOD COUNT Leukocytes [#/volume] in Blood by Automated count 14.8 10^3/uL 4.2 - 11.0 H [facility] Erythrocytes [#/volume] in Blood by Automated count 4.77 10^6/uL 4. 20 - 5.40 [facility] Hemoglobin [Mass/volume] in Blood 15.0 g/dL 12.0 - 16.0 [facility] Hematocrit [Volume Fraction] of Blood by Automated count 43.9 % 3 7.0 - 47.0 [facility] Erythrocyte mean corpuscular volume [Entitic volume] by Auto mated count 92.0 fL 81.0 - 101 [facility] Erythrocyte mean corpuscular hemoglobin [Entitic mass] by Automated count 31.4 pg 27.0 - 34.0 [facility] Erythrocyte mean corpuscular hemoglobin concentration [Mass/volume] by Automated count 34.2 g/dL 31.0 - 36.0 [facility] Erythrocyte distribution width [Ratio] by Automated count 13.1 % 11.5 - 14.5 [facility] Platelets [#/volume] in Blood by Automated count 387 10^3/uL 150 - 45 0 [facility] Platelet mean volume [Entitic volume] in Blood by Automated count 10.0 fL 7.4 - 10.4 [facility] Neutrophils/100 leukocytes in Blood by Automated count 88.4 % 37. 0 - 80.0 H [facility] Lymphocytes/100 leukocytes in Blood by Manual count 8.9 % 25.0 - 40.0 L [facility] Monocytes/100 leukocytes in Blood by Automated count 2.3 % 3.0 - 8.0 L [facility] Eosinophils/100 leukocytes in Blood by Automated count 0.0 % 0.0 - 7.0 [facility] Basophils/100 leukocytes in Blood by Automated count 0.1 % 0.0 - 2.5 [facility] %IG 0.3 % 0.0 - 0.0 [facility] %NRBC 0.0 % 0.0 - 0.0 [facility] al Neutrophils [#/volume] in Blood by Automated count 13.06 10^3/uL 2. 00 - 6.90 H [facility] Lymphocytes [#/volume] in Blood by Automated count 1.32 10^3/uL 0.60 - 3.40 [facility] Monocytes [#/volume] in Blood by Automated count 0.34 10^3/uL 0.00 - 0.90 [facility] Eosinophils [#/volume] in Blood by Automated count 0.00 10^3/uL 0.00 - 0.70 [facility] Basophils [#/volume] in Blood by Automated count 0.02 10^3/uL 0.00 - 0.20 [facility] #IG 0.04 10^3/uL 0.00 - 0.10 [facility] #NRBC 0.00 10^3/uL 0.00 - 0.00 [facility] MANUAL DIFF NOT INDICATED [facility] RBC MORPH NOT INDICATED [facility] sp[facility] ID Date Data Source [id number] 11/26/2019 12:29:00 [place] [address] RESPIRATORY CARE REPORT ==== ---------NAME------- NUMBER SEX AGE ADMIT DISC. XRAY# F/C TYPERIARIN CHINYEREELNiki Martinez [id number] F 24 11/24/19 [id number] O/P DATE OF : 1995 M/R# [id number] #: [id number] LOCATION: [place] [id number] COMP LETE:11/26/19 07:34 [place] [id number] PHYSICIAN: CLAUDIO Name Value Range Interpretation Code Description Data Michelle rce(s) Supporting Document(s) ID Date Data Source [id number] 11/26/2019 07:54:00 AM EDT [facility] Name Value Range Interpretation Code Description Data Michelle rce(s) Supporting Document(s) BASIC METABOLIC PANEL [facility] BASIC METABOLIC PANEL Sodium [Moles/volume] in Serum or Plasma 135 mEq/L 134 - 153 [facility] Potassium [Moles/volume] in Serum or Plasma 4.0 mEq/L 3.6 - 5.0 [facility] Chloride [Moles/volume] in Serum or Plasma 102 mEq/L 98 - 107 [facility] Carbon dioxide, total [Moles/volume] in Serum or Plasma 26 MEQ/L 22 - 30 [facility] Glucose [Mass/volume] in Serum or Plasma 89 MG/DL 65 - 110 [facility] BUN 5 MG/DL 7 - 21 [facility] Creatinine [Mass/volume] in Serum or Plasma 0.5 MG/DL 0.7 - 1.5 L [facility] BUN/CREAT 10 8 - 27 [facility] al Calcium [Mass/volume] in Serum or Plasma 8.7 MG/DL 8.4 - 10.2 [facility] Anion gap 3 in Serum or Plasma 7.0 mmol/L 8.0 - 16.0 L [facility] AGE 24 yrs [facility] AFR AMER GFR >60 mL/min [facility] NON-AA GFR >60 mL/min [facility] ital Male GFR Inter prentation 20-49 yrs [...] >32 mL/min Normal ID Date Data Source [id number] 11/26/2019 07:28:00 AM EDT [facility] Name Value Range Interpretation Code Description Data Michelle rce(s) Supporting Document(s) CBC NO DIFF [facility] COMPLETE BLOOD COUNT Leukocytes [#/volume] in Blood by Automated count 9.9 10^3/uL 4.2 - 1 1.0 [facility] Erythrocytes [#/volume] in Blood by Automated count 4.08 10^6/uL 4. 20 - 5.40 L [facility] Hemoglobin [Mass/volume] in Blood 12.7 g/dL 12.0 - 16.0 [facility] Hematocrit [Volume Fraction] of Blood by Automated count 38.0 % 3 7.0 - 47.0 [facility] Erythrocyte mean corpuscular volume [Entitic volume] by Auto mated count 93.1 fL 81.0 - 101 [facility] Erythrocyte mean corpuscular hemoglobin [Entitic mass] by Automated count 31.1 pg 27.0 - 34.0 [facility] Erythrocyte mean corpuscular hemoglobin concentration [Mass/volume] by Automated count 33.4 g/dL 31.0 - 36.0 [facility] Erythrocyte distribution width [Ratio] by Automated count 12.2 % 11.5 - 14.5 [facility] Platelets [#/volume] in Blood by Automated count 196 10^3/uL 150 - 45 0 [facility] Platelet mean volume [Entitic volume] in Blood by Automated count 10.3 fL 7.4 - 10.4 [facility] ID Date Data Source [id number] 11/26/2019 02:54:00 AM EDT [facility] Name Value Range Interpretation Code Description Data Michelle rce(s) Supporting Document(s) BASIC METABOLIC PANEL [facility] BASIC METABOLIC PANEL Sodium [Moles/volume] in Serum or Plasma 134 mEq/L 134 - 153 [facility] Potassium [Moles/volume] in Serum or Plasma 3.8 mEq/L 3.6 - 5.0 [facility] Chloride [Moles/volume] in Serum or Plasma 100 mEq/L 98 - 107 [facility] Carbon dioxide, total [Moles/volume] in Serum or Plasma 27 MEQ/L 22 - 30 [facility] Glucose [Mass/volume] in Serum or Plasma 82 MG/DL 65 - 110 [facility] BUN 7 MG/DL 7 - 21 [facility] Creatinine [Mass/volume] in Serum or Plasma 0.5 MG/DL 0.7 - 1.5 L [facility] BUN/CREAT 14 8 - 27 [facility] al Calcium [Mass/volume] in Serum or Plasma 8.6 MG/DL 8.4 - 10.2 [facility] Anion gap 3 in Serum or Plasma 7.0 mmol/L 8.0 - 16.0 L [facility] AGE 24 yrs [facility] al AFR AMER GFR >60 mL/min [facility] NON-AA GFR >60 mL/min [facility] ital Male GFR Inter prentation 20-49 yrs [...] >32 mL/min Normal ID Date Data Source [id number] 11/25/2019 10:11:00 PM EDT [facility] Name Value Range Interpretation Code Description Data Michelle rce(s) Supporting Document(s) BASIC METABOLIC PANEL [facility] BASIC METABOLIC PANEL Sodium [Moles/volume] in Serum or Plasma 136 mEq/L 134 - 153 [facility] Potassium [Moles/volume] in Serum or Plasma 3.5 mEq/L 3.6 - 5.0 L [facility] Chloride [Moles/volume] in Serum or Plasma 99 mEq/L 98 - 107 [facility] Carbon dioxide, total [Moles/volume] in Serum or Plasma 27 MEQ/L 22 - 30 [facility] Glucose [Mass/volume] in Serum or Plasma 75 MG/DL 65 - 110 [facility] BUN 9 MG/DL 7 - 21 [facility] [facility] Creatinine [Mass/volume] in Serum or Plasma 0.5 MG/DL 0.7 - 1.5 L [facility] BUN/CREAT 18 8 - 27 [facility] al Calcium [Mass/volume] in Serum or Plasma 8.8 MG/DL 8.4 - 10.2 [facility] Anion gap 3 in Serum or Plasma 10.0 mmol/L 8.0 - 16.0 [facility] AGE 24 yrs [facility] al AFR AMER GFR >60 mL/min [facility] spital NON-AA GFR >60 mL/min [facility] ital Male GFR Inter prentation 20-49 yrs [...] >32 mL/min Normal ID Date Data Source [id number] 11/25/2019 06:07:00 PM EDT [facility] Name Value Range Interpretation Code Description Data Michelle rce(s) Supporting Document(s) BASIC METABOLIC PANEL [facility] BASIC METABOLIC PANEL Sodium [Moles/volume] in Serum or Plasma 132 mEq/L 134 - 153 L [facility] Potassium [Moles/volume] in Serum or Plasma 3.2 mEq/L 3.6 - 5.0 L [facility] Chloride [Moles/volume] in Serum or Plasma 94 mEq/L 98 - 107 L [facility] Carbon dioxide, total [Moles/volume] in Serum or Plasma 28 MEQ/L 22 - 30 [facility] Glucose [Mass/volume] in Serum or Plasma 86 MG/DL 65 - 110 [facility] BUN 11 MG/DL 7 - 21 [facility] al Creatinine [Mass/volume] in Serum or Plasma 0.6 MG/DL 0.7 - 1.5 L [facility] BUN/CREAT 18 8 - 27 [facility] Calcium [Mass/volume] in Serum or Plasma 8.7 MG/DL 8.4 - 10.2 [facility] Anion gap 3 in Serum or Plasma 10.0 mmol/L 8.0 - 16.0 [facility] AGE 24 yrs [facility] al AFR AMER GFR >60 mL/min [facility] spital NON-AA GFR >60 mL/min [facility]osp ital Male GFR Inter prentation [...] >32 mL/min Normal ID Date Data Source [id number] 11/25/2019 01:04:00 PM EDT [facility] [address] [place] [address] RESPIRATORY CARE REPORT ==== ---------NAME------- NUMBER SEX AGE ADMIT DISC. XRAY# F/C JOSS Martinez [id number] F 24 11/24/19 [id number] X6B O/P DATE OF : 1995 M/R# [id number] #: [phone] LOCATION: EMERGENCY DEPT EKG [id number] COMP LETE:11/25/19 06:00 PAD [id number] PHYSICIAN: CLAUDIO Name Value Range Interpretation Code Description Data Michelle rce(s) Supporting Document(s) ID Date Data Source [id number] 11/25/2019 01:35:00 PM EDT [facility] Name Value Range Interpretation Code Description Data Michelle rce(s) Supporting Document(s) BASIC METABOLIC PANEL [facility] BASIC METABOLIC PANEL Sodium [Moles/volume] in Serum or Plasma 133 mEq/L 134 - 153 L [facility] Potassium [Moles/volume] in Serum or Plasma 3.3 mEq/L 3.6 - 5.0 L [facility] Chloride [Moles/volume] in Serum or Plasma 93 mEq/L 98 - 107 L [facility] Carbon dioxide, total [Moles/volume] in Serum or Plasma 32 MEQ/L 22 - 30 H [facility] Glucose [Mass/volume] in Serum or Plasma 84 MG/DL 65 - 110 [facility] BUN 12 MG/DL 7 - 21 [facility] Creatinine [Mass/volume] in Serum or Plasma 0.6 MG/DL 0.7 - 1.5 L [facility] BUN/CREAT 20 8 - 27 [facility] Calcium [Mass/volume] in Serum or Plasma 8.9 MG/DL 8.4 - 10.2 [facility] Anion gap 3 in Serum or Plasma 8.0 mmol/L 8.0 - 16.0 [facility] AGE 24 yrs [facility] al AFR AMER GFR >60 mL/min [facility] spital NON-AA GFR >60 mL/min [facility] ital Male GFR Inter prentation 20-49 yrs [...] >32 mL/min Normal ID Date Data Source [id number] 11/25/2019 10:02:00 AM EDT [facility] [address] [place] [address] PHONE: [phone] FAX: [phone] Name .................. : RITTER NATALIYA Martinez Acct Number.................. : [id number] ROOM. ................. : TR-04 MR Number ................... : [id number] Stay type ............. : E/R Discharge Date......... ... : Admit Date ......... : 11/24/19 Admit Phys .................... : MICKEYMINNIE L Date of ....... : 1995 Family Phys ................... : COLLAZO SCOT Phone .................. : [phone] Age ................................ : 24 Film# .................. .:[id number] Sex ................................. : F Unsigned transcriptions are preliminary reports and do not represent a medical or legal document CT ABD & PELVIS W/ IV ONLY [id number] COMPLETE:11/24/19 18:06 RLB [id number] Reason(s): Abdominal Pain CT OF THE ABDOMEN [...] and Signed By Page 1 of 2 [facility] [address] [place] [address] PHONE: [phone] FAX: [phone] Name .................. : RITTER NATALIYA Martinez Acct Number.................. : [id number] ROOM. ................. : TR-04 MR Number ................... : [id number] Stay type ............. : E/R Discharge Date......... ... : Admit Date ......... : 11/24/19 Admit Phys .................... : AMERNATH L Date of ....... : 1995 Family Phys ................... : COLLAZO SCOT Phone .................. : [phone] Age ................................ : 24 Film# .................. .:[id number] Sex ................................. : F Unsigned transcriptions are preliminary reports and do not represent a medical or legal document CT ABD & PELVIS W/ IV ONLY [id number] COMPLETE:11/24/19 18:06 RLB [id number] Reason(s): Abdominal Pain Genaro Lozoya M.D. , 11/25/19 10:02, [facility] Transcribe Initials: FAHAD , Transcribe Date: 11/24/19 20:06, Dictation Date: Copy for: EMERGENCY DEPT via modem Copy for: [facility] REC Page 2 of 2 Name Value Range Interpretation Code Description Data Michelle rce(s) Supporting Document(s) ID Date Data Source [id number] 11/25/2019 06:53:00 AM EDT [facility] Name Value Range Interpretation Code Description Data Michelle rce(s) Supporting Document(s) Magnesium [Mass/volume] in Serum or Plasma 2.5 MG/DL 1.7 - 2.2 H [facility] ID Date Data Source [id number] 11/25/2019 06:53:00 AM EDT [facility] Name Value Range Interpretation Code Description Data Michelle rce(s) Supporting Document(s) COMPREHENSIVE METABOLIC PANEL [facility] COMPREHENSIVE METABOLIC PANEL Sodium [Moles/volume] in Serum or Plasma 131 mEq/L 134 - 153 L [facility] Potassium [Moles/volume] in Serum or Plasma 3.5 mEq/L 3.6 - 5.0 L [facility] Chloride [Moles/volume] in Serum or Plasma 86 mEq/L 98 - 107 L [facility] Carbon dioxide, total [Moles/volume] in Serum or Plasma 35 MEQ/L 22 - 30 H [facility] Glucose [Mass/volume] in Serum or Plasma 85 MG/DL 65 - 110 [facility] BUN 16 MG/DL 7 - 21 [facility] al Creatinine [Mass/volume] in Serum or Plasma 0.6 MG/DL 0.7 - 1.5 L [facility] BUN/CREAT 27 8 - 27 [facility] al Protein [Mass/volume] in Serum or Plasma 6.4 G/DL 6.3 - 8.2 [facility] Albumin [Mass/volume] in Serum or Plasma 4.3 G/DL 3.9 - 5.0 [facility] Globulin [Mass/volume] in Serum by calculation 2.1 GM/DL 2.4 - 3.2 L [facility] A/G RATIO 2.0 0.8 - 2.0 [facility] Calcium [Mass/volume] in Serum or Plasma 9.2 MG/DL 8.4 - 10.2 [facility] Bilirubin.total [Mass/volume] in Serum or Plasma 1.1 MG/DL 0.2 - 1.3 [facility] Alkaline phosphatase [Enzymatic activity/volume] in Serum or Plasma 70 U/L 38 - 126 [facility] Aspartate aminotransferase [Enzymatic activity/volume] in Serum or Plasma 26 U/L 5 - 40 [facility] Alanine aminotransferase [Enzymatic activity/volume] in Seru m or Plasma 29 U/L 7 - 56 [facility] Anion gap 3 in Serum or Plasma 10.0 mmol/L 8.0 - 16.0 [facility] AGE 24 yrs [facility] al NON-AA GFR >60 mL/min [facility] ital AFR AMER GFR >60 mL/min [facility] spital Male GFR In terprentation [...] >32 mL/min Normal ID Date Data Source [id number] 11/25/2019 06:24:00 AM EDT [facility] Name Value Range Interpretation Code Description Data Michelle rce(s) Supporting Document(s) CBC W/AUTOMATED DIFF [facility] COMPLETE BLOOD COUNT Leukocytes [#/volume] in Blood by Automated count 10.0 10^3/uL 4.2 - 11.0 [facility] Erythrocytes [#/volume] in Blood by Automated count 4.70 10^6/uL 4. 20 - 5.40 [facility] Hemoglobin [Mass/volume] in Blood 14.7 g/dL 12.0 - 16.0 [facility] Hematocrit [Volume Fraction] of Blood by Automated count 41.5 % 3 7.0 - 47.0 [facility] Erythrocyte mean corpuscular volume [Entitic volume] by Auto mated count 88.3 fL 81.0 - 101 [facility] Erythrocyte mean corpuscular hemoglobin [Entitic mass] by Automated count 31.3 pg 27.0 - 34.0 [facility] Erythrocyte mean corpuscular hemoglobin concentration [Mass/volume] by Automated count 35.4 g/dL 31.0 - 36.0 [facility] Erythrocyte distribution width [Ratio] by Automated count 12.0 % 11.5 - 14.5 [facility] Platelets [#/volume] in Blood by Automated count 241 10^3/uL 150 - 45 0 [facility] Platelet mean volume [Entitic volume] in Blood by Automated count 10.6 fL 7.4 - 10.4 H [facility] Neutrophils/100 leukocytes in Blood by Automated count 65.5 % 37. 0 - 80.0 [facility] Lymphocytes/100 leukocytes in Blood by Manual count 23.7 % 25.0 - 40.0 L [facility] Monocytes/100 leukocytes in Blood by Automated count 9.3 % 3.0 - 8.0 H [facility] Eosinophils/100 leukocytes in Blood by Automated count 0.7 % 0.0 - 7.0 [facility] Basophils/100 leukocytes in Blood by Automated count 0.2 % 0.0 - 2.5 [facility] %IG 0.6 % 0.0 - 0.0 [facility] %NRBC 0.0 % 0.0 - 0.0 [facility] al Neutrophils [#/volume] in Blood by Automated count 6.51 10^3/uL 2.00 - 6.90 [facility] Lymphocytes [#/volume] in Blood by Automated count 2.36 10^3/uL 0.60 - 3.40 [facility] Monocytes [#/volume] in Blood by Automated count 0.93 10^3/uL 0.00 - 0.90 H [facility] Eosinophils [#/volume] in Blood by Automated count 0.07 10^3/uL 0.00 - 0.70 [facility] Basophils [#/volume] in Blood by Automated count 0.02 10^3/uL 0.00 - 0.20 [facility] #IG 0.06 10^3/uL 0.00 - 0.10 [facility] ospital #NRBC 0.00 10^3/uL 0.00 - 0.00 [facility] ospital MANUAL DIFF NOT INDICATED [facility] RBC MORPH NOT INDICATED [facility] spital ID Date Data Source [id number] 11/25/2019 01:45:00 AM EDT [facility] Name Value Range Interpretation Code Description Data Michelle rce(s) Supporting Document(s) BASIC METABOLIC PANEL [facility] BASIC METABOLIC PANEL Sodium [Moles/volume] in Serum or Plasma 127 mEq/L 134 - 153 L [facility] Potassium [Moles/volume] in Serum or Plasma 2.4 mEq/L 3.6 - 5.0 LL [facility] CALL/ READ BACK [facility] BY: LSA [facility] DATE/TIME 11/25/[address] [facility] Chloride [Moles/volume] in Serum or Plasma 80 mEq/L 98 - 107 L [facility] Carbon dioxide, total [Moles/volume] in Serum or Plasma 36 MEQ/L 22 - 30 H [facility] Glucose [Mass/volume] in Serum or Plasma 105 MG/DL 65 - 110 [facility] BUN 18 MG/DL 7 - 21 [facility] Creatinine [Mass/volume] in Serum or Plasma 0.7 MG/DL 0.7 - 1.5 [facility] BUN/CREAT 26 8 - 27 [facility] Calcium [Mass/volume] in Serum or Plasma 9.2 MG/DL 8.4 - 10.2 [facility] Anion gap 3 in Serum or Plasma 11.0 mmol/L 8.0 - 16.0 [facility] AGE 24 yrs [facility] al AFR AMER GFR >60 mL/min [facility] Ho spital NON-AA GFR >60 mL/min [facility] ital Male GFR Inter prentation 20-49 yrs [...] >32 mL/min Normal ID Date Data Source [id number] 11/24/2019 05:12:00 PM EDT [facility] 1 OrderSheet [facility] Emergency Department [address] [place] [address] Phone #: ext- [phone] 11/24/2019 16:57 Patient: [...] STAT 17:15 11/24/2019 17:17 Devika, 2 OrderSheet [facility] Emergency Department [address] [place] [address] Phone #: ext- [phone] 11/24/2019 16:57 Patient: [...] rce(s) Supporting Document(s) ID Date Data Source [id number] 11/24/2019 05:12:00 PM EDT [facility] 1 Medication Reconciliation Report [facility] Emergency Department [address] [place] [address] Phone #: ext- [phone] 11/24/2019 16:57 Patient: [...] rce(s) Supporting Document(s) ID Date Data Source [id number] 11/24/2019 05:12:00 PM EDT [facility] 1 Medication Administration Record [facility] Emergency Department [address] [place] [address] Phone #: ext- [phone] 11/24/2019 16:57 Patient: NATALIYA BEASLEY Sex: F : 1995 Age: 24yWeight: 58.9 kgHeight/Length: 63 inBMI: 23ALLERGIES: None Date/Time Medication Administered Medication OrderedStart NS [IV] NS IV : Bolus 1000 mL, then 35212:29 11/24/2019 Dose: IV Fluids mL/hr (NOW x1); [...] cruz R.N.Start KCL [IVPB] KCl IVPB 10 meq/958jN61:29 11/24/2019 Dose: 10 meq IVPBSoAureliano lara R.N. [...] rce(s) Supporting Document(s) ID Date Data Source [id number] 11/24/2019 05:12:00 PM EDT [facility] 1 General Instructions [facility] Emergency Department [address] [place] [address] Phone #: ext- [phone] 11/24/2019 16:57 Patient: NATALIYA BEASLEY Sex: F [...] and water are not available, use alcohol-based tassel snipper to keep from spreading the infection to [...] disease, or after a 2 General Instructions [facility] Emergency Department [address] [place] [address] Phone #: ext- [phone] 11/24/2019 16:57 [id number] Sex: F : 1995 Age: 24y stroke) [...] coffee grounds Swollen belly 3 General Instructions [facility] Emergency Department [address] [place] [address] Phone #: ext- [phone] 11/24/2019 16:57 Patient: NATALIYA BEASLEY Sex: F : 1995 Age: 24y Frequent diarrhea (more than 5 times a day); blood (red or black color) or mucus in diarrhea Reduced urine output or extreme thirst Weakness, dizziness or fainting Unusually drowsy or confused Fever of 100.4F (38C) oral or higher, or as directed Yellow color of the eyes or skin [phone] [employer]. [address] [place] [address], [place] [address]. All rights reserved. This information is not [...] can also cause gastritis. 4 General Instructions [facility] Emergency Department [address] [place] [address] Phone #: ext- [phone] 11/24/2019 16:57 Patient: [...] (can't keep down liquids) 5 General Instructions [facility] Emergency Department [address] [place] [address] Phone #: ext- [phone] 11/24/2019 16:57 Patient: NATALIYA BEASLEY Sex: F : 1995 Age: 24y Blood in the stool or vomit (red or black in color) Feeling weak or dizzy Shortness of breath Unexplained weight loss Fever of 100.4F (38C) or higher, or as directed by your healthcare provider [phone] [employer]. [address] [place] [address], [place] [address]. All rights reserved. This information is not [...] fatigue, or muscle cramps 6 General Instructions [facility] Emergency Department [address] [place] [address] Phone #: ext- [phone] 11/24/2019 16:57 Patient: NATALIYA BEASLEY Sex: F : 1995 Age: 24y DizzinessCall 911Call 911 if any of the following occur: Irregular heartbeat, extra beats, or very fast heart rate Loss of consciousness [phone] [employer]. [address] [place] [address], [place] [address]. All rights reserved. This information is not [...] of the following occur: 7 General Instructions [facility] Emergency Department [address] [place] [address] Phone #: ext- [phone] 11/24/2019 16:57 Patient: NATALIYA BEASLEY Sex: F : 1995 Age: 24y Increasing weakness Dizziness Irregular heartbeat, extra beats or very fast heart rate Increasing confusion Fainting or loss of consciousness Seizure [id number] [employer]. [address] [place] [address], [place] [address]. All rights reserved. This information is not intended as asubstitute for professional medical care. Always follow your healthcare professional's instructions. You have been given the following additional information: Vomiting (Adult) Gastritis (Adult) Hypokalemia Hyponatremia(Electronically signed by Ariel Miller M.D. 11/25/2019 00:42) Name Value Range Interpretation Code Description Data Michelle rce(s) Supporting Document(s) ID Date Data Source [id number] 11/24/2019 05:12:00 PM EDT [facility] 1 Clinical Report - Nurses [facility] Emergency Department [address] [place] [address] Phone #: ext- [phone] 11/24/2019 16:57 Patient: NATALIYA BEASLEY Sex: F : 1995 Age: 24yTRIAGEArrived by private vehicle. Historian: family. Accompanied by family. ( went [place] [employer] thursday[place] drinking alcohol and started vomit with lower abd pain).Acuity: LEVEL 3.Chief Complaint: ABDOMINAL PAIN, NAUSEA and VOMITING.Alert. No acute distress.Onset. (last ). The patient has had constipation and abdominal pain. ( muscle spasms in legsand arms, last bm last ).Treatment GEOSPATIAL IMAGE ANALYST:None.SEPSIS SCREEN: SIRS Screen positive. --17:05 11/24/19 Alexia [...] of CRE. 2 Clinical Report - Nurses [facility] Emergency Department [address] [place] [address] Phone #: ext- [phone] 11/24/2019 16:57 Patient: [...] To treatment room. --17:11/24/19 Alexia Kemp R.N.PHYSICAL [id number] 11/24/19. Ambulatory to room.GENERAL / NEURO / [...] and post-medication 3 Clinical Report - Nurses [facility] Emergency Department [address] [place] [address], [place] [address] Phone #: ext- [phone] 11/24/2019 16:57 Patient: [...] Patient transported to CT by wheelchair with dental equipment technician. --17:58 11/24/19 Aureliano Fortune, R.N.18:07 11/24/19. Patient returned from CT by wheelchair with dental equipment technician. --18:12 11/24/19 Aureliano Fortune, R.N.18:14 11/24/19. Critical [...] Verified lab 4 Clinical Report - Nurses [facility] Emergency Department [address] [place] [address] Phone #: ext- [phone] 11/24/2019 16:57 Patient: NATALIYA BEASLEY Sex: F [...] redness, or swelling. IV flushed thoroughly. --21:11/24/19 Aurleiano Fortune R.N.DISPOSITION / DISCHARGE 20:17 11/24/19. Condition [...] Fortune R.N. 5 Clinical Report - Nurses [facility] Emergency Department [address] [place] [address] Phone #: ext- [phone] 11/24/2019 16:57 Patient: [...] rce(s) Supporting Document(s) ID Date Data Source [id number] 11/24/2019 05:12:00 PM EDT [facility] 1 Clinical Report - Physicians/Mid Levels [facility] Emergency Department [address] [place] [address] Phone #: ext- [phone] 11/24/2019 16:57 Patient: [...] weekly. 2 Clinical Report - Physicians/Mid Levels [facility] Emergency Department [address] [place] [address] Phone #: ext- [phone] 11/24/2019 16:57 Patient: [...] 1.5) 3 Clinical Report - Physicians/Mid Levels [facility] Emergency Department [address] [place] [address] Phone #: ext- [phone] 11/24/2019 16:57 Patient: NATALIYA BEASLEY Sex: F : 1995 Age: 24y BUN/CREAT 29 H (8 - 27) CALCIUM 10.0 MG/DL (8.4 - 10.2) ANION GAP 16.0 mmol/L (8.0 - 16.0) AGE 24 yrs AFR AMER GFR >60 mL/min NON-AA GFR >60 mL/min Male GFR Interprentation 20-49 yrs >60 mL/min Bdybnb63-61 yrs >56 mL/min Normal 60-69 yrs >49 mL/min Normal 70-79yrs>42 mL/min Normal 80 and above >35 mL/min Normal Female GFRInterpretation 20-39 yrs >60 mL/min Normal 40-49 yrs >58 mL/minNormal 50-59 yrs >51 mL/min Normal 60-69 yrs >45 mL/min Rhkagz60-34 yrs >39 mL/min Normal 80 and above >32 mL/min NormalMagnesium: (ANGELY: 11/24/2019 17:15) ( MsgRcvd 11/24/2019 18:59) Final results Test Result Flag Units (Reference) MAGNESIUM 2.5 H MG/DL (1.7 - 2.2)Magnesium: (ANGELY: 11/24/2019 18:16) ( MsgRcvd 11/24/2019 18:32) CanceledCPK: (ANGELY: 11/24/2019 17:15) ( MdgRcvd 11/24/2019 18:04) Final results Test Result Flag [...] NEGATIVE (NORMAL: NEGAT { KIT LOT # [id number] ){ KIT EXP DATE02.27.21 ){ PROCEDURAL CONTROL [...] 40.0) 4 Clinical Report - Physicians/Mid Levels [facility] Emergency Department [address] [place] [address] Phone #: ext- [phone] 11/24/2019 16:57 Patient: [...] Male GFR Interprentation 20-49 yrs >60 mL/min Scdhtq27-03 yrs >56 mL/min Normal 60-69 yrs >49 mL/min Normal 70-79yrs>42 mL/min Normal 80 and above >35 mL/min Normal Female GFRInterpretation 20-39 yrs >60 mL/min Normal 40-49 yrs >58 mL/minNormal 50-59 yrs >51 mL/min Normal 60-69 yrs >45 mL/min Vsqvuq66-25 yrs >39 mL/min Normal 80 and above >32 mL/min NormalLipase: (ANGELY: 11/24/2019 17:15) ( MsgRcvd 11/24/2019 18:04) Final results Test Result Flag Units (Reference) LIPASE 15 U/L (13 - 60) 5 Clinical Report - Physicians/Mid Levels [facility] Emergency Department [address] [place] [address] Phone #: ext- [phone] 11/24/2019 16:57 Patient: NATALIYA BEASLEY Sex: F [...] rce(s) Supporting Document(s) ID Date Data Source [id number] 11/24/2019 08:16:00 PM EDT [facility] Name Value Range Interpretation Code Description Data Michelle rce(s) Supporting Document(s) URINALYSIS [facility] UR[facility]ALYS[facility]OURCE [facility] COL[facility] yellow NORMAL: Yellow [facility] CLARITY hazy NORMAL: Clear [facility] Specific gravity of Urine by Test strip 1.010 1.001 - 1.030 [facility] pH 8 5 - 9 [facility] al Glucose [Mass/volume] in Urine by Test strip NORM NORMAL: Negat [facility] Bilirubin.total [Presence] in Urine by Test strip NEG NORMAL: Negative [facility] Ketones [Presence] in Urine by Test strip 5 NORMAL: Negative [facility] Protein [Mass/volume] in Urine by Test strip 15 NORMAL: Negat [facility] Nitrite [Presence] in Urine by Test strip NEG NORMAL: Negative [facility] BLOOD NEG NORMAL: Negative [facility] Leukocyte esterase [Presence] in Urine by Test strip NEG DAYLIN L: Negative [facility] Urobilinogen [Mass/volume] in Urine by Test strip 1 less tito n 1.0 mg/dL [facility] MICROSCOPIC See Below [facility] ital WBC 3 - 5 NORMAL: NONE SEEN [facility] Erythrocytes [#/volume] in Urine by Test strip 3 - 5 NORMAL: NON E SEEN [facility] EPITHELIAL MODERATE NORMAL: NONE SEEN [facility] Bacteria [Presence] in Urine sediment by Light microscopy 2+ MOD NORMAL: NONE SEEN [facility] Mucus [Presence] in Urine sediment by Light microscopy Trace NORMAL: NONE SEEN [facility] ID Date Data Source [id number] 11/24/2019 07:13:00 PM EDT [facility] Name Value Range Interpretation Code Description Data Michelle rce(s) Supporting Document(s) BASIC METABOLIC PANEL [facility] BASIC METABOLIC PANEL Sodium [Moles/volume] in Serum or Plasma 120 mEq/L 134 - 153 L [facility] Potassium [Moles/volume] in Serum or Plasma 2.4 mEq/L 3.6 - 5.0 LL [facility] CALL/ READ BACK EDILMA IN ED [facility] BY: ROCK [facility] al DATE/TIME [place] [facility] Chloride [Moles/volume] in Serum or Plasma 69 mEq/L 98 - 107 L [facility] CALLED CHLORIDE Carbon dioxide, total [Moles/volume] in Serum or Plasma 35 MEQ/L 22 - 30 H [facility] Glucose [Mass/volume] in Serum or Plasma 113 MG/DL 65 - 110 H [facility] BUN 23 MG/DL 7 - 21 H [facility] al Creatinine [Mass/volume] in Serum or Plasma 0.8 MG/DL 0.7 - 1.5 [facility] BUN/CREAT 29 8 - 27 H [facility] Calcium [Mass/volume] in Serum or Plasma 10.0 MG/DL 8.4 - 10.2 [facility] Anion gap 3 in Serum or Plasma 16.0 mmol/L 8.0 - 16.0 [facility] AGE 24 yrs [facility] AFR AMER GFR >60 mL/min [facility] NON-AA GFR >60 mL/min [facility] Male GFR Inter prentation 20-49 yrs >60 [...] >32 mL/min Normal ID Date Data Source [id number] 11/24/2019 06:59:00 PM EDT [facility] Name Value Range Interpretation Code Description Data Michelle rce(s) Supporting Document(s) Magnesium [Mass/volume] in Serum or Plasma 2.5 MG/DL 1.7 - 2.2 H [facility] ID Date Data Source [id number] 11/24/2019 06:14:00 PM EDT [facility] Name Value Range Interpretation Code Description Data Michelle rce(s) Supporting Document(s) COMPREHENSIVE METABOLIC PANEL [facility] COMPREHENSIVE METABOLIC PANEL Sodium [Moles/volume] in Serum or Plasma 122 mEq/L 134 - 153 L [facility] Potassium [Moles/volume] in Serum or Plasma 2.2 mEq/L 3.6 - 5.0 LL [facility] CALL/ READ BACK EDILMA IN ED [facility] Chloride [Moles/volume] in Serum or Plasma <68 mEq/L 98 - 107 L [facility] CHLORIDE RESULT CALLED DW Carbon dioxide, total [Moles/volume] in Serum or Plasma 35 MEQ/L 22 - 30 H [facility] Glucose [Mass/volume] in Serum or Plasma 132 MG/DL 65 - 110 H [facility] BUN 26 MG/DL 7 - 21 H [facility] al Creatinine [Mass/volume] in Serum or Plasma 0.8 MG/DL 0.7 - 1.5 [facility] BUN/CREAT 33 8 - 27 H [facility] Protein [Mass/volume] in Serum or Plasma 8.7 G/DL 6.3 - 8.2 H [facility] Albumin [Mass/volume] in Serum or Plasma 5.4 G/DL 3.9 - 5.0 H [facility] Globulin [Mass/volume] in Serum by calculation 3.3 GM/DL 2.4 - 3.2 H [facility] A/G RATIO 1.6 0.8 - 2.0 [facility] Calcium [Mass/volume] in Serum or Plasma 10.5 MG/DL 8.4 - 10.2 H [facility] Bilirubin.total [Mass/volume] in Serum or Plasma 2.1 MG/DL 0.2 - 1.3 H [facility] Alkaline phosphatase [Enzymatic activity/volume] in Serum or Plasma 93 U/L 38 - 126 [facility] Aspartate aminotransferase [Enzymatic activity/volume] in Serum or Plasma 37 U/L 5 - 40 [facility] Alanine aminotransferase [Enzymatic activity/volume] in Seru m or Plasma 36 U/L 7 - 56 [facility] Anion gap 3 in Serum or Plasma 19.0 mmol/L 8.0 - 16.0 H [facility] AGE 24 yrs [facility] NON-AA GFR >60 mL/min [facility] ital AFR AMER GFR >60 mL/min [facility] Male GFR In terprentation [...] >32 mL/min Normal ID Date Data Source [id number] 11/24/2019 06:06:00 PM EDT [facility] Name Value Range Interpretation Code Description Data Michelle rce(s) Supporting Document(s) CBC W/AUTOMATED DIFF [facility] COMPLETE BLOOD COUNT Leukocytes [#/volume] in Blood by Automated count 17.0 10^3/uL 4.2 - 11.0 H [facility] Erythrocytes [#/volume] in Blood by Automated count 5.64 10^6/uL 4. 20 - 5.40 H [facility] Hemoglobin [Mass/volume] in Blood 17.8 g/dL 12.0 - 16.0 H [facility] Hematocrit [Volume Fraction] of Blood by Automated count 47.8 % 3 7.0 - 47.0 H [facility] Erythrocyte mean corpuscular volume [Entitic volume] by Auto mated count 84.8 fL 81.0 - 101 [facility] Erythrocyte mean corpuscular hemoglobin [Entitic mass] by Automated count 31.6 pg 27.0 - 34.0 [facility] Erythrocyte mean corpuscular hemoglobin concentration [Mass/volume] by Automated count 37.2 g/dL 31.0 - 36.0 H [facility] Erythrocyte distribution width [Ratio] by Automated count 11.8 % 11.5 - 14.5 [facility] Platelets [#/volume] in Blood by Automated count 324 10^3/uL 150 - 45 0 [facility] Platelet mean volume [Entitic volume] in Blood by Automated count 10.2 fL 7.4 - 10.4 [facility] Neutrophils/100 leukocytes in Blood by Automated count 79.6 % 37. 0 - 80.0 [facility] Lymphocytes/100 leukocytes in Blood by Manual count 11.8 % 25.0 - 40.0 L [facility] Monocytes/100 leukocytes in Blood by Automated count 7.4 % 3.0 - 8.0 [facility] Eosinophils/100 leukocytes in Blood by Automated count 0.1 % 0.0 - 7.0 [facility] Basophils/100 leukocytes in Blood by Automated count 0.2 % 0.0 - 2.5 [facility] %IG 0.9 % 0.0 - 0.0 H [facility] al %NRBC 0.0 % 0.0 - 0.0 [facility] al Neutrophils [#/volume] in Blood by Automated count 13.56 10^3/uL 2. 00 - 6.90 H [facility] Lymphocytes [#/volume] in Blood by Automated count 2.01 10^3/uL 0.60 - 3.40 [facility] Monocytes [#/volume] in Blood by Automated count 1.26 10^3/uL 0.00 - 0.90 H [facility] Eosinophils [#/volume] in Blood by Automated count 0.01 10^3/uL 0.00 - 0.70 [facility] Basophils [#/volume] in Blood by Automated count 0.04 10^3/uL 0.00 - 0.20 [facility] #IG 0.15 10^3/uL 0.00 - 0.10 H [facility] H ospital #NRBC 0.00 10^3/uL 0.00 - 0.00 [facility] ospital MANUAL DIFF SEE BELOW [facility] ital Segmented neutrophils/100 leukocytes in Blood by Manual count 77 % 37 - 80 [facility] %LYMPH 12 % 25 - 40 L [facility] al %MONO 11 % 3 - 8 [facility] RBC MORPH MORPH IS NORMAL [facility] ID Date Data Source [id number] 11/24/2019 06:04:00 PM EDT [facility] Name Value Range Interpretation Code Description Data Michelle rce(s) Supporting Document(s) Creatine kinase [Enzymatic activity/volume] in Serum or Plasma 3 21 U/L 30 - 170 H [facility] ID Date Data Source [id number] 11/24/2019 06:04:00 PM EDT [facility] Name Value Range Interpretation Code Description Data Michelle rce(s) Supporting Document(s) Lipase [Enzymatic activity/volume] in Serum or Plasma 15 U/L 13 - 60 [facility] ID Date Data Source [id number] 11/24/2019 05:49:00 PM EDT [facility] Value Range Interpretation Code Description Data Michelle rce(s) Supporting Document(s) HCG SERUM QUAL NEGATIVE NORMAL: NEGATIVE [facility] HCG SERUM QL REENTER NEGATIVE NORMAL: NEGATIVE [facility] { KIT LOT # [id number] ){ KIT EXP DATE 02.27.21 ){ PROCEDURAL CONTROL VALID ) Procedure Vital Signs ID Date Data Source [id number] 12/30/2019 12:40:05 PM EDT [facility] Value Range Interpretation Code Description Data Source(s) WEIGHT RECORDED 138.00 pounds 138.00 pounds [facility] Height 63 Inches 063 Inches [facility] ID Date Data Source [id number] 12/26/2019 05:03:00 PM EDT [facility] Value Range Interpretation Code Description Data Source(s) WEIGHT RECORDED 136.90 pounds 136.90 pounds [facility] Height 62 Inches 062 Inches [facility] ID Date Data Source [id number] 12/26/2019 05:02:58 PM EDT [facility] Value Range Interpretation Code Description Data Source(s) WEIGHT RECORDED 133.90 pounds 133.90 pounds [facility] Height 62 Inches 062 Inches [facility]
[2020-07-03] MEDS ORDERED: NS 1,000 ML IV SCH (17:08)
[2020-07-03] MEDS ORDERED: HALOPERIDOL 5MG/ML VIAL (J1630 PER 1) IV ONE (17:15)
[2020-07-03] MEDS ORDERED: NS 1,000 ML IV ONE (17:15)
[2020-07-03 17:40] LABS: BASO % 0.2 % (0.0-1.0); HEMOGLOBIN 13.7 g/dl (12.0-15.5); LYMPH # 1.3 10^3/uL (1.5-5.0); LYMPH % 12.4 % (24.0-44.0); MEAN CORPUSCULAR HEMOGLOBIN 25.5 pg (27.0-33.0); MEAN CORPUSCULAR HGB CONC 31.9 g/dl (32.0-36.5); MEAN CORPUSCULAR VOLUME 80.1 fl (80.0-96.0); MONO # 0.6 10^3/uL (0.0-0.8); MONO % 5.6 % (2.0-8.0); NEUTROPHILS # 8.3 10^3/uL (1.5-8.5); NEUTROPHILS % 81.5 % (36.0-66.0); PLATELET COUNT, AUTOMATED 349 10^3/uL (150-450); RED BLOOD COUNT 5.37 10^6/uL (4.00-5.40); WHITE BLOOD COUNT 10.2 10^3/uL (4.0-10.0)
[2020-07-03] MEDS ORDERED: KCL 10MEQ/100ML SWI (KRUN) 10 MEQ in IV 1 EA IV ONE (17:45)
[2020-07-03] MEDS ORDERED: POTASSIUM CHLORIDE 10 MEQ SR TABLET PO ONE (17:45)
[2020-07-03 17:57] LABS: HCG, SERUM QUALITATIVE NEGATIVE (NEGATIVE)
[2020-07-03 18:11] LABS: BLOOD UREA NITROGEN 15 MG/DL (7-18); CALCIUM LEVEL 10.4 MG/DL (8.5-10.1); CARBON DIOXIDE LEVEL 28 MEQ/L (21-32); CHLORIDE LEVEL 100 MEQ/L (98-107); CREATININE FOR GFR 0.73 MG/DL (0.55-1.30); GLOMERULAR FILTRATION RATE > 60.0 (>60); GLUCOSE, FASTING 94 MG/DL (70-100); POTASSIUM SERUM 2.8 MEQ/L (3.5-5.1); SODIUM LEVEL 141 MEQ/L (136-145)
[2020-07-03] MEDS ORDERED: PROMETHAZINE INJ 25 MG/ML VIAL (J2550) IV ONE (19:00)
[2020-07-03] MEDS ORDERED: TAB-TAB3 PO (21:28)
[2020-07-03] MEDS ORDERED: FOLI1TAB11 PO (21:28)
[2020-07-03 22:22] LABS: BLOOD UREA NITROGEN 14 MG/DL (7-18); CALCIUM LEVEL 9.5 MG/DL (8.5-10.1); CARBON DIOXIDE LEVEL 26 MEQ/L (21-32); CHLORIDE LEVEL 106 MEQ/L (98-107); CREATININE FOR GFR 0.86 MG/DL (0.55-1.30); GLOMERULAR FILTRATION RATE > 60.0 (>60); GLUCOSE, FASTING 110 MG/DL (70-100); MAGNESIUM LEVEL 1.5 MG/DL (1.8-2.4); POTASSIUM SERUM 3.5 MEQ/L (3.5-5.1); SODIUM LEVEL 142 MEQ/L (136-145)
[2020-07-03 22:23] LABS: RSV AMPLIFICATION NEGATIVE (NEGATIVE)
--- OUTSIDE RECORDS SUMMARY | 2020-07-03 22:56 | CCD ---
Author Author [facility] Organization [facility] Address Unknown Phone Unavailable Care Team Providers Care Cigarette Catcher Name Role Phone TURRIN, LEENA Unavailable Unavailable [...] PA-C Unavailable Unavailable Srinath Falanga, A Sarah RHEUMATOLOGIST Unavailable Unavailable Srinath Falanga, A Sarah RHEUMATOLOGIST Unavailable Unavailable Glenwood Falanga, A Sarah RHEUMATOLOGIST Unavailable Unavailable Srinath Falanga, A Sarah RHEUMATOLOGIST Unavailable Unavailable Glenwood Falanga, A Sarah RHEUMATOLOGIST Unavailable Unavailable Srinath Falanga, A Sarah RHEUMATOLOGIST Unavailable Unavailable Srinath Falanga, A Sarah RHEUMATOLOGIST Unavailable Unavailable Srinath Falanga, A Sarah RHEUMATOLOGIST Unavailable Unavailable Srinath Falanga, A Sarah RHEUMATOLOGIST Unavailable Unavailable Srinath Falanga, A Sarah RHEUMATOLOGIST Unavailable Unavailable Srinath Falanga, A Sarah RHEUMATOLOGIST Unavailable Unavailable Glenwood Falanga, A Sarah RHEUMATOLOGIST Unavailable Unavailable Glenwood Falanga, A Sarah RHEUMATOLOGIST Unavailable Unavailable Glenwood Falanga, A Sarah RHEUMATOLOGIST Unavailable Unavailable [place]wood Falanga, A Sarah RHEUMATOLOGIST Unavailable Unavailable Srinath Falanga, A Sarah RHEUMATOLOGIST Unavailable Unavailable Glenwood Falanga, A Sarah RHEUMATOLOGIST Unavailable Unavailable Srinath Falanga, A Sarah RHEUMATOLOGIST Unavailable Unavailable Srinath Falanga, A Sarah RHEUMATOLOGIST Unavailable Unavailable Srinath Falanga, A Sarah RHEUMATOLOGIST Unavailable Unavailable Glenwood Falanga, A Sarah RHEUMATOLOGIST Unavailable Unavailable Srinath Falanga, A Sarah RHEUMATOLOGIST Unavailable Unavailable Glenwood Falanga, A Sarah RHEUMATOLOGIST Unavailable Unavailable Srinath Falanga, A Sarah RHEUMATOLOGIST Unavailable Unavailable Srinath Falanga, A Sarah RHEUMATOLOGIST Unavailable Unavailable [place]wood Falanga, A Sarah RHEUMATOLOGIST Unavailable Unavailable Srinath Falanga, A Sarah RHEUMATOLOGIST Unavailable Unavailable Glenwood Falanga, A Sarah RHEUMATOLOGIST Unavailable Unavailable Glenwood Falanga, A Sarah RHEUMATOLOGIST Unavailable Unavailable Srinath Falanga, A Sarah RHEUMATOLOGIST Unavailable Unavailable ARIEL MILLER MD Unavailable Unavailable [...] Unavailable Unavailable YAQUELINGeorge HUTCHISON MD Unavailable Unavailable AYQUELINGeorge HUTCHISON MD Unavailable Unavailable YAQUELINGeorge HUTCHISON MD Unavailable Unavailable YAQUELINGeorge HUTCHISON MD Unavailable Unavailable YAQUELINGeorge HUTCHISON MD Unavailable Unavailable YAQUELINGeorge HUTCHISON MD Unavailable Unavailable YAQUELINGeorge HUTCHISON MD Unavailable Unavailable YAQUELINGeorge HUTCHISON MD Unavailable Unavailable YAQUELINGeorge HUTCHISON MD Unavailable Unavailable Flori Dumontandra RHEUMATOLOGIST RHEUMATOLOGIST Unavailable Unavailable Juan A MCKEON MD Unavailable Unavailable Juan A MCKEON MD Unavailable Unavailable Juan A MCKEON MD Unavailable Unavailable Juan A MCKEON MD Unavailable Unavailable Juan A MCKEON MD Unavailable Unavailable Juan A MCKEON MD Unavailable Unavailable Juan A MCKEON MD Unavailable Unavailable Juan A MCKEON MD Unavailable Unavailable Juan A MCKEON MD Unavailable Unavailable Tim, A Ranjana RHEUMATOLOGIST Unavailable Unavailable Tim, A Ranjana RHEUMATOLOGIST Unavailable Unavailable Tim, A Ranjana RHEUMATOLOGIST Unavailable Unavailable Tim, A Ranjana RHEUMATOLOGIST Unavailable Unavailable Tim, A Ranjana RHEUMATOLOGIST Unavailable Unavailable Tim, A Ranjana RHEUMATOLOGIST Unavailable Unavailable Tim, A Ranjana RHEUMATOLOGIST Unavailable Unavailable Tim, A Ranjana RHEUMATOLOGIST Unavailable Unavailable Tim, A Ranjana RHEUMATOLOGIST Unavailable Unavailable Tim, A Ranjana RHEUMATOLOGIST Unavailable Unavailable Tim, A Ranjana RHEUMATOLOGIST Unavailable Unavailable Tim, A Ranjana RHEUMATOLOGIST Unavailable Unavailable Tim, A Ranjana RHEUMATOLOGIST Unavailable Unavailable Tim, A Ranjana RHEUMATOLOGIST Unavailable Unavailable Tim, A Ranjana RHEUMATOLOGIST Unavailable Unavailable Tim, A Ranjana RHEUMATOLOGIST Unavailable Unavailable Tim, A Ranjana RHEUMATOLOGIST Unavailable Unavailable Tim, A Ranjana RHEUMATOLOGIST Unavailable Unavailable Tim, A Ranjana RHEUMATOLOGIST Unavailable Unavailable Tim, A Ranjana RHEUMATOLOGIST Unavailable Unavailable Tim, A Ranjana RHEUMATOLOGIST Unavailable Unavailable Tim, A Ranjana RHEUMATOLOGIST Unavailable Unavailable Tim, A Ranjana RHEUMATOLOGIST Unavailable Unavailable Tim, A Ranjana RHEUMATOLOGIST Unavailable Unavailable Tim, A Ranjana RHEUMATOLOGIST Unavailable Unavailable Tim, A Ranjana RHEUMATOLOGIST Unavailable Unavailable Tim, A Ranjana RHEUMATOLOGIST Unavailable Unavailable Tim, A Ranjana RHEUMATOLOGIST Unavailable Unavailable Re-disclosure Warning The records that [...] is protected by Article 27-F of the [facility] Public Health law. If you continue you may have access to information: Regarding HIV / AIDS; Provided by facilities licensed or operated by the [facility] Office of Mental Health; or Provided by the [facility] Office for People With Developmental Disabilities. If such information is present, then the following [facility] mandated warning applies: This information has [...] Data Source(s ) Food allergy LACTOSE LACTOSE [facility] CLASS SULFA (sulfonamide) SULFA (sulfonamide) HIVES [facility] No Known Drug Allergies No Known Drug Allergies [facility] Encounters Encounter Providers Location Date Indications Data Source(s ) Emergency Attender: Yang Melendrez PA-CConsultant: Miles Walls MD 04/03/2020 04:26:00 PM EST - 04/03/2020 09:15:00 PM [facility] Patient discharged. Outpatient Attender: JADEN Dumont [facility] 02/27/2020 12:19:00 P M EDT [facility] Outpatient Attender: Sarah moran FNPAttender: DAYLIN JAMISON MDConsultant: Miles Collazo MD 02/16/2020 04:43:00 PM ED T - 02/17/2020 12:40:00 PM T [facility] Patient discharged. Outpatient Attender: Ranjana Dumont [facility] 01/26/2020 02:5 0:00 PM EDT [facility] Outpatient Attender: JADEN Dumont [facility] 01/26/2020 02:46:01 P M EDT [facility] 05:19:01 P M EDT [facility] Outpatient Attender: Ranjana Dumont [facility] 01/22/2020 03:1 0:01 PM EDT [facility]: [facility]2020 03:10:00 P M EDT [facility] Outpatient Attender: Ranjana Dumont [facility] 01/22/2020 03:0 9:02 PM EDT [facility]: [facility]/22/2020 03:09:01 P M EDT [facility] Outpatient Attender: JADEN PRITCHETT 01/19/2020 09:13:00 A M EDT [facility] Outpatient Attender: JADEN PRITCHETT 01/19/2020 09:07:00 A M EDT [facility] Outpatient Attender: Sarah moran FNPAttender: LEENA MARTÍNEZConsultant: Miles Collazo MD 12/26/2019 10:59:00 A M EDT - 12/27/2019 04:25:00 PM EDT [facility] Patient discharged. Outpatient Attender: SIMIN MULLER MDAtt akosua: FER CMKEON MDConsultant: Miles Collazo MD 12/09/2019 12:55:00 PM EDT - 12/11/2019 03:40:00 PM EDT [facility] Patient discharged. Emergency Attender: LEENA Poncesultant: Miles Collazo MD 12/07/2019 06:58:00 PM EDT - 12/07/2019 09:23:00 PM EDT [facility] Patient discharged. Outpatient Attender: Sarah moran FNPAttender: ARIEL MILLER MDConsultant: Miles Collazo MD 11/24/2019 05:12:00 PM ED T - 11/26/2019 01:05:00 PM EDT [facility] Patient discharged. Outpatient 11/04/2019 05:40:00 AM EDT [facility] Outpatient Attender: JADEN STANLEY FP 10/15/2019 12:14:17 A M EDT [facility] Outpatient 10/12/2019 05:16:00 AM EDT [facility] 09/14/2019 05:58:00 AM EDT [facility] Outpatient Attender: JADEN STANLEY FP 09/09/2019 11:10:00 A M EDT [facility] Outpatient Attender: JADEN STANLEY FP 09/07/2019 09:02:00 A M EDT [facility] Outpatient 05/27/2019 06:22:00 AM EST [facility] Outpatient Attender: JADEN PRITCHETT 05/23/2019 09:01:06 P M EST [facility] Outpatient Attender: JADEN PRITCHETT 05/23/2019 12:54:00 P M EST [facility] Medications Medication Brand Name Start Date [...] type / Coverage type Policy ID Covered democrat ID Covered democrat's relationship to simons Policy Simons Plan Information [facility] COMMUNITY [facility]AN [facility] [id number] SP [id number] [facility] O [id number] S [id number] [facility] COMMUNITY PLAN [facility] [id number] SP [id number] [facility] COMMUNITY [facility]AN [facility] [id number] SP [id number] [facility] O [id number] S [id number] [facility] COMMUNITY PLAN XIX [id number] 18 [id number] Medicaid S [id number] S [id number] Managed Care - [facility] Community Plan P [id number] S [id number] Medicaid S [id number] S [id number] [facility] COMMUNITY PLAN XIX [id number] 18 [id number] UN AMERICHOICE XIX HMO [id number] Managed Care - [facility] Community Plan P [id number] S [id number] Self Pay P UNAVAILABLE S UNAVAILA BLE [facility] COMMUNITY PLAN [facility] [id number] SP [id number] [facility] O [id number] S [id number] Managed Care - Community Plan [facility] P [id number] S [id number] Medicaid S [id number] S [id number] [facility] COMMUNITY [facility] [id number] SP [id number] [facility] [id number] 18 [id number] MEDICAID - CLINIC [id number] Problems, Conditions, and Diagnoses Code Display Name Description Problem Type Effective Dates Data Source(s) N3001 Acute cystitis with hematuria Acute cystitis with armani turia Diagnosis 04/03/2020 04:26:00 PM [facility] R1084 Generalized abdominal pain Generalized abdominal pain Diagnosis 04/03/2020 04:26:00 PM [facility] F1010 Alcohol abuse, uncomplicated Alcohol abuse, uncomplica parminder Diagnosis 02/16/2020 04:43:00 PM EDT [facility] [id number] Nicotine dependence, cigarettes, uncompl icated Nicotine dependence, cigarettes, uncomplicated Diagnosis 02/16/2020 04:43:00 PM EDT [facility] F1220 Cannabis dependence, uncomplicated Cannabis depe ndence, uncomplicated Diagnosis 02/16/2020 04:43:00 PM EDT [facility] E860 Dehydration Dehydration Diagnosis 02/16/2020 04:43:00 PM EDT [facility] R1110 Vomiting, unspecified Vomiting, unspecified Diagnosis 02/16/2020 04:43:00 PM EDT [facility] E876 Hypokalemia Hypokalemia Diagnosis 02/16/2020 04:43:00 PM EDT [facility] E8342 Hypomagnesemia Hypomagnesemia Diagnosis 02/16/2020 04:43: 00 PM EDT [facility] E871 Hypo-osmolality and hyponatremia Hypo-osmolality and hyponatremia Diagnosis 12/26/2019 10:59:00 AM EDT [facility] 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 Diagnosis 12/07/2019 06:58:00 PM EDT [facility] R112 Nausea with vomiting, unspecified Nausea with vo miting, unspecified Diagnosis 12/07/2019 06:58:00 PM EDT [facility] R1115 Cyclical vomiting syndrome unrelated to migraine Cyclical vomiting syndrome unrelated to migraine Diagnosis 11/24/2019 05:12:00 PM EDT [facility] Results ID Date Data Source [id number] 06/15/2020 10:22:00 PM [facility] Name Value Range Interpretation Code Description Data Michelle rce(s) Supporting Document(s) SARS coronavirus 2 RNA [Presence] in Res piratory specimen by ANTONIO with probe detection NEGATIVE NYSDCT This lab was ordered by [facility] a nd reported by [facility]. ID Date Data Source [id number] 04/04/2020 01:12:[address] [facility] [address] [place] [address] PHONE: [phone] FAX: [phone] Name .................. : RITTER NATALIYA Martinez Acct Number.................. : [id number] ROOM. ................. : TR-03 MR Number ................... : [id number] Stay type ............. : E/R Discharge Date......... ... : Admit Date ......... : 04/03/20 Admit Phys .................... : PARVIN CHANTEL Date of ....... : 1995 Family Phys ................... : [employer] Phone .................. : [phone] Age ................................ : 24 Film# .................. .:[id number] Sex ................................. : F Unsigned transcriptions are preliminary reports and do not represent a medical or legal document CT ABD & PELVIS W/ IV ONLY [id number] COMPLETE:04/03/20 17:49 52546 Reason(s): Abdominal Pain CT OF THE ABDOMEN [...] imperative reconstructive techniques. Page 1 of [address] [place] [address] PHONE: [phone] FAX: [phone] Name .................. : RITTER AN Juan Acct Number.................. : [id number] ROOM. ................. : TR-03 MR Number ................... : [id number] Stay type ............. : E/R Discharge Date......... ... : Admit Date ......... : 04/03/20 Admit Phys ... ................. : PARVIN [facility] Date of ....... : 1995 Family Phys ................... : COLLAZO UNI5 Phone .................. : [phone] Age ................................ : 24 Film# .................. .:[id number] Sex ................................. : F Unsigned transcriptions are preliminary reports and do not represent a medical or legal document CT ABD & PELVIS W/ IV ONLY [id number] COMPLETE:04/03/20 17:49 [id number] Reason(s): Abdominal Pain CT dose: 533 mGycm [...] rce(s) Supporting Document(s) ID Date Data Source [id number] 04/03/2020 04:26:00 PM EST [facility] 1 OrderSheet [facility] Emergency Department [address] [place] [address] Phone #: ext- [phone] 04/03/2020 16:19 Patient: [...] Imtiaz Wiseman R.N.(Oxygen?(No)) P.A.- C;(IV?(Yes)) 2 OrderSheet [facility] Emergency Department [address] [place] [address] Phone #: ext- [phone] 04/03/2020 16:19 Patient: [...] rce(s) Supporting Document(s) ID Date Data Source [id number] 04/03/2020 04:26:00 PM EST [facility] 1 Medication Reconciliation Report [facility] Emergency Department [address] [place] [address] Phone #: ext- [phone] 04/03/2020 16:19 Patient: [...] Dispense 14 capsule. Refills: 0.Substitution permitted.Pharmacy - [facility] - [address] [place] [address]. .Zofran 4 mg tablet Take 1 tablet three times a day for 4 days -- Dispense 12 tablet. Refills: 0.Substitution permitted. 2 Medication Reconciliation Report [facility] Emergency Department [address] [place] [address] Phone #: ext- [phone] 04/03/2020 16:19 Patient: NATALIYA BEASLEY Sex: F : 1995 Age: 24yPharmacy - [facility] - [address] [facility] ; [place] [address]. . -- Imtiaz España P.A.-C Name Value Range Interpretation Code Description Data Michelle rce(s) Supporting Document(s) ID Date Data Source [id number] 04/03/2020 04:26:00 PM EST [facility] 1 Medication Administration Record [facility] Emergency Department [address] [place] [address] Phone #: ext- [phone] 04/03/2020 16:19 Patient: [...] ACStart ROCEPHIN (1GM/50ML) [IVPB] Rocephin (1gm/50mL) IVPB [id number] 04/03/2020 (CEFTRIAXONE SODIUM) mg with Dextrose 50 ml spike Zakiya Dougherty, R.N. Dose: 1 gm IVPB (D5W)---- Rate: 100 mL/hr over 30 minute(s)Stop Bolus: 1 gm wide open20:54 04/03/2020 Dispensed: 50 mL Zakiya Dougherty, R.N. Site: #1 left AC Name Value Range Interpretation Code Description Data Michelle rce(s) Supporting Document(s) ID Date Data Source [id number] 04/03/2020 04:26:00 PM EST [facility] 1 General Instructions [facility] Emergency Department [address] [place] [address] Phone #: ext- [phone] 04/03/2020 16:19 Patient: [...] would like. [facility] aware of your conditions.).Warnings: Further evaluation is necessary.GENERAL WARNINGS: Return or contact your physician immediately if your condition worsens orchanges unexpectedly, if not improving as expected, or if other problems arise.Your Current Medications: .No home medication.Prescription Medications:Macrobid 100 mg capsule Take 1 capsule twice a day for 7 days -- Dispense 14 capsule. Refills: 0.Substitution permitted.[facility] [address] - [address] [place] [address]. .Zofran 4 mg tablet Take 1 tablet three times a day for 4 days -- Dispense 12 tablet. Refills: 0.Substitution permitted.[facility] [address] [place] [address]. .Follow-up:Return to the emergency department as needed. Follow up with your healthcare provider in about twodays if not better. Call for an appointment.Understanding of the discharge instructions verbalized by patient. 2 General Instructions [facility] Emergency Department [address] [place] [address] Phone #: ext- [phone] 04/03/2020 16:19 - Patient: NATALIYA BEASLEY Sex: F : 1995 Age: 24yFollow-up with: Shabbir Addison MD, Gastroenterology, [id number], [facility],[address] [place] [address], [address], [place], [address] Follow up. Call for the next available appointment. Reason for referral: evaluation and treatment.Follow-up with: [facility], , , [address] [place] [address], [address] Follow up. Call for the next available [...] be constant. Other common 3 General Instructions [facility] Emergency Department [address] [place] [address] Phone #: ext- [phone] 04/03/2020 16:19 Patient: [...] to improve in the 4 General Instructions [facility] Emergency Department [address] [place] [address] Phone #: ext- [phone] 04/03/2020 16:19 Patient: [...] or water and you are getting dehydrated [phone] [employer]. [address] [place] [address]. All rights reserved. This information is not intended as asubstitute for professional medical care. Always follow your healthcare professional's instructions.Bladder Infection, Female (Adult) 5 General Instructions [facility] Emergency Department [address] [place] [address] Phone #: ext- [phone] 04/03/2020 16:19 Patient: [...] above the pubic bone. 6 General Instructions [facility] Emergency Department [address] [place] [address] Phone #: ext- [phone] 04/03/2020 16:19 Patient: [...] more serious kidney infection.Medicines 7 General Instructions [facility] Emergency Department [address] [place] [address] Phone #: ext- [phone] 04/03/2020 16:19 Patient: [...] will affect your treatment. 8 General Instructions [facility] Emergency Department [address] [place] [address] Phone #: ext- [phone] 04/03/2020 16:19 Patient: [...] swelling in the outer vaginal area (labia) [phone] [employer]. [address] [place] [address]. All rights reserved. This information is not intended as asubstitute for professional medical care. Always follow your healthcare professional's instructions.Blood in the Urine 9 General Instructions [facility] Emergency Department [address] [place] [address] Phone #: ext- [phone] 04/03/2020 16:19 Patient: [...] had blood in your 10 General Instructions [facility] Emergency Department [address] [place] [address] Phone #: cvc- [phone] 04/03/2020 16:19 Patient: NATALIYA BEASLEY Sex: F [...] the nose or gums or easy bruising [phone] [employer]. [address] [place] [address]. All rights reserved. This information is not [...] rce(s) Supporting Document(s) ID Date Data Source [id number] 04/03/2020 04:26:00 PM EST [facility] 1 Clinical Report - Nurses [facility] Emergency Department [address] [place] [address] Phone #: aba- [phone] 04/03/2020 16:19 Patient: NATALIYA BEASLEY Sex: F [...] no deficiencies. 2 Clinical Report - Nurses [facility] Emergency Department [address] [place] [address] Phone #: ext- [phone] 04/03/2020 16:19 ----- [id number] Sex: F : 1995 Age: 24y FUNCTIONAL [...] Sheets R.N. 3 Clinical Report - Nurses [facility] Emergency Department [address] [place] [address] Phone #: ext- [phone] 04/03/2020 16:19 Patient: [...] patient. Verbalizes 4 Clinical Report - Nurses [facility] Emergency Department [address] [place] [address] Phone #: ext- [phone] 04/03/2020 16:19 Patient: NATALIYA BEASLEY Sex: F : 1995 Age: 24y understanding. --19:56 04/03/20 Zakiya Quiles R.N. 19:56 04/03/20. BP: 137/72. MAP: 93. HR: 70. RR: 18. O2 saturation: 99% on room air. --19:57 04/03/20 Zakiya Quiles R.N. The patient is calm and resting quietly. Patient returned from CT by wheelchair with mask and research technician. --19:57 04/03/20 Zakiya Quiles R.N. 20:36 [...] pressure and bandage applied. --21:03 04/03/20 Ivone Sheest R.N. Condition at departure: improved and stable. No learning barriers present. Discharge instructions provided and reviewed with the patient. Reviewed medication(s). Prescription(s) sent electronically to pharmacy. Reviewed referral to a surgeon and orange peel operator. Work note given. Patient verbalized understanding. Written instructions provided in Maldivian. The patient was discharged by the physician loan assistant. She was discharged home and accompanied [...] rce(s) Supporting Document(s) ID Date Data Source [id number] 04/03/2020 04:26:00 PM EST [facility] 1 Clinical Report - Physicians/Mid Levels [facility] Emergency Department [address] [place] [address] Phone #: ext- [phone] 04/03/2020 16:19 Patient: [...] ears. 2 Clinical Report - Physicians/Martha Messina [facility] Emergency Department [address] [place] [address] Phone #: ext- [phone] 04/03/2020 16:19 Patient: NATALIYA BEASLEY [facility]#: [id number] Sex: F : 1995 Age: 24y Tympanostomy [...] 3 Clinical Report - Physicia ns/Mid Levels [facility] Emergency Department [address] [place] [address] Phone #: ext- [phone] 04/03/2020 16:19 Patient: [...] Male GFR Interprentation 20-49 yrs >60 mL/min [id number] yrs >56 mL/min Normal 60-69 yrs >49 mL/min Normal 70-79yrs 4 Clinical Report - Physicians/Mid Levels [facility] Emergency Department [address] [place] [address] Phone #: ext- [phone] 04/03/2020 16:19 Patient: [...] NONE Lactic Acid: (ANGELY: 04/03/2020 16:45) ( OrgRcvd 04/03/2020 17:23) Final results Test Result Flag Units (Reference) LACTIC ACID 1.6 MMOL/L (0.2 - 2.2) Beta-HCG, Qual Serum: (ANGELY: 04/03/2020 16:45) ( OrgRcvd 04/03/2020 17:27) Final results Test Result Flag Units (Reference) HCG SERUM QUAL NEGATIVE (NORMAL: NEGAT HCG SERUM QL REENTER NEGATIVE (NORMAL: NEGAT { KIT LOT # [id number] ){ KIT EXP DATE 02.20.21 ){ PROCEDURAL CONTROL VALID ) Magnesium: (ANGELY: 04/03/2020 16:45) ( [facility] 04/03/2020 17:33) Final results Test Result Flag Units (Reference) MAGNESIUM 1.8 MG/DL (1.7 - 2.2). 5 Clinical Report - Physicians/Mid Levels [facility] Emergency Department [address] [place] [address] Phone #: ext- [phone] 04/03/2020 16:19 Patient: NATALIYA BEASLEY Sex: F [...] weight. 6 Clinical Report - Physicians/Mid Levels [facility] Emergency Department [address] [place] [address] Phone #: ext- [phone] 04/03/2020 16:19 Patient: [...] weight. I have provided infomration on 2 mayo [facility] for you to choose whom you would like. I did consult the surgeon at [facility] though and is aware of your [...] Dispense 14 capsule. Refills: 0. Substitution permitted. [employer] #52 - [address] [place] [address]. . Zofran 4 mg tablet Take 1 tablet three times a day for 4 days -- Dispense 12 tablet. Refills: 0. Substitution permitted. [employer] #35 - [address] [place] [address]. . Follow-up: Return to the emergency department as needed. Follow up with your healthcare provider in about two days if not better. Call for an appointment. Understanding of the discharge instructions verbalized by patient. 7 Clinical Report - Physicians/Mid Levels [facility] Emergency Department [address] [place] [address] Phone #: ext- [phone] 04/03/2020 16:19 Patient: NATALIYA BEASLEY Sex: F : 1995 Age: 24y Follow-up with: Shabbir Addison MD, Gastroenterology, [id number], [facility], [address] [place] [address], [address], [place], [address] Follow up. Call for the next available appointment. Reason for referral: evaluation and treatment. Follow-up with: [facility], , , [address] [place] [address], [facility] Follow up. Call for the next available appointment. Reason for referral: evaluation and treatment.(Electronically signed by Imtiaz España P.A.-C 04/03/2020 21:42) Name Value Range Interpretation Code Description Data Michelle e(s) Supporting Document(s) ID Date Data Source [id number] 04/03/2020 05:43:00 PM EST [facility] Name Value Range Interpretation Code Description Data [facility](s) Supporting Document(s) URINALYSIS [facility] URINALYSIS SOURCE R [facility] COLOR yellow NORMAL: Yellow [facility] CLARITY hazy NORMAL: Clear [facility] Specific gravity of Urine by Test strip 1.020 1.001 - 1.030 [facility] pH 6 5 - 9 [facility] Glucose [Mass/volume] in Urine by Test strip NORM NORMAL: Negat judy [facility] Bilirubin.total [Presence] in Urine by Test strip NEG NORMAL: Negative [facility] Ketones [Presence] in Urine by Test strip 50 NORMAL: Negative [facility] Protein [Mass/volume] in Urine by Test strip 30 NORMAL: Negat judy [facility] Nitrite [Presence] in Urine by Test strip NEG NORMAL: Negative [facility] BLOOD 10 NORMAL: Negative [facility] Leukocyte esterase [Presence] in Urine by Test strip NEG DAYLIN L: Negative [facility] Urobilinogen [Mass/volume] in Urine by Test strip 1 less tito n 1.0 mg/dL [facility] MICROSCOPIC See Below [facility] ital WBC 3 - 5 NORMAL: NONE SEEN [facility] Erythrocytes [#/volume] in Urine by Test strip 1 - 3 NORMAL: NON E SEEN [facility] EPITHELIAL MODERATE NORMAL: NONE SEEN A [facility] Bacteria [Presence] in Urine sediment by Light microscopy Tr laura NORMAL: NONE SEEN [facility] Mucus [Presence] in Urine sediment by Light microscopy 2+ NOR MAL: NONE SEEN A [facility] Amorphous sediment [Presence] in Urine sediment by Light chelsey roscopy 2+ NORMAL: NONE SEEN [facility] ID Date Data Source [id number] 04/07/2020 09:15:00 PM EST [facility] Name Value Range Interpretation Code Description Data Michelle rce(s) Supporting Document(s) CULTURE URINE [facility] spital _CULTURE URINE_$$[id number]$$189009$$740011$$445119$$151642$$980565$$498201$$445726$$042354$$ 821960$$832325$$728990$$716821$$980198$$949236$$307623$$893991$$727125$$252392$$ 385140$$187297$$619608$$471643$$963250$$194219$$613413$$609667 -- Continued on next page --Patient: RITTER NATALIYA Martinez Order: Page 2Culture: CULTURE URINE Status: Final ==== -- Continued on next page --Patient: RITTER NATALIYA Martinez Order: 2Culture: CULTURE URINE Status: Prelim =====$$[id number] DATE/TIME: 04/07/2020 13:06Culture: CULTURE URINE Status: FinalUrine Culture,Comprehensive: P1No growth in 36 - 48 hours. Previous result entered on 04/06/2020 03:16 ET No growth after 18-24 hours.P1 Test performed by: [facility] #: [id number] [address] [place] [address] Avenue [id number] [facility] [address]Medical Director : Abhilash Hilario MD NPI #:Lab Di louis : 04/06/20.0654.XMT.SENT REF 04/07/20.2115.XMT.SENT REF ID Date Data Source [id number] 04/03/2020 05:36:00 PM EST [facility] Name Value Range Interpretation Code Description Data Michelle rce(s) Supporting Document(s) COMPREHENSIVE METABOLIC PANEL [facility] COMPREHENSIVE METABOLIC PANEL Sodium [Moles/volume] in Serum or Plasma 139 mEq/L 134 - 153 [facility] Potassium [Moles/volume] in Serum or Plasma 3.5 mEq/L 3.6 - 5.0 L [facility] Chloride [Moles/volume] in Serum or Plasma 100 mEq/L 98 - 107 [facility] Carbon dioxide, total [Moles/volume] in Serum or Plasma 29 MEQ/L 22 - 30 [facility] Glucose [Mass/volume] in Serum or Plasma 139 MG/DL 65 - 110 H [facility] BUN 11 MG/DL 7 - 21 [facility] al Creatinine [Mass/volume] in Serum or Plasma 0.5 MG/DL 0.7 - 1.5 L [facility] BUN/CREAT 22 8 - 27 [facility] Protein [Mass/volume] in Serum or Plasma 7.7 G/DL 6.3 - 8.2 [facility] Albumin [Mass/volume] in Serum or Plasma 4.9 G/DL 3.9 - 5.0 [facility] Globulin [Mass/volume] in Serum by calculation 2.8 GM/DL 2.4 - 3.2 [facility] A/G RATIO 1.8 0.8 - 2.0 [facility] Calcium [Mass/volume] in Serum or Plasma 10.1 MG/DL 8.4 - 10.2 [facility] Bilirubin.total [Mass/volume] in Serum or Plasma <0.7 MG/DL 0.2 - 1.3 [facility] Alkaline phosphatase [Enzymatic activity/volume] in Serum or Plasma 74 U/L 38 - 126 [facility] Aspartate aminotransferase [Enzymatic activity/volume] in Serum or Plasma 15 U/L 5 - 40 [facility] Alanine aminotransferase [Enzymatic activity/volume] in Seru m or Plasma 15 U/L 7 - 56 [facility] Anion gap 3 in Serum or Plasma 10.0 mmol/L 8.0 - 16.0 [facility] AGE 24 yrs [facility] al NON-AA GFR >60 mL/min [facility] ital AFR AMER GFR >60 mL/min [facility] Male GFR In terprentation 20-49 [...] >32 mL/min Normal ID Date Data Source [id number] 04/03/2020 05:33:00 PM EST [facility] Name Value Range Interpretation Code Description Data Michelle rce(s) Supporting Document(s) Magnesium [Mass/volume] in Serum or Plasma 1.8 MG/DL 1.7 - 2.2 [facility] ID Date Data Source [id number] 04/03/2020 05:33:00 PM [facility] Name Value Range Interpretation Code Description Data Michelle rce(s) Supporting Document(s) Lipase [Enzymatic activity/volume] in Serum or Plasma 15 U/L 13 - 60 [facility] ID Date Data Source [id number] 04/03/2020 05:27:00 PM [facility] Name Value Range Interpretation Code Description Data Michelle rce(s) Supporting Document(s) HCG SERUM QUAL NEGATIVE NORMAL: NEGATIVE [facility] HCG SERUM QL REENTER NEGATIVE NORMAL: NEGATIVE [facility] { KIT LOT # [id number] ){ KIT EXP DATE 02.20.21 ){ PROCEDURAL CONTROL VALID ) ID Date Data Source [id number] 04/03/2020 05:23:00 PM [facility] Name Value Range Interpretation Code Description Data Michelle rce(s) Supporting Document(s) CBC W/AUTOMATED DIFF [facility] COMPLETE BLOOD COUNT Leukocytes [#/volume] in Blood by Automated count 10.2 10^3/uL 4.2 - 11.0 [facility] Erythrocytes [#/volume] in Blood by Automated count 4.79 10^6/uL 4. 20 - 5.40 [facility] Hemoglobin [Mass/volume] in Blood 11.7 g/dL 12.0 - 16.0 L [facility] Hematocrit [Volume Fraction] of Blood by Automated count 36.9 % 3 7.0 - 47.0 L [facility] Erythrocyte mean corpuscular volume [Entitic volume] by Auto mated count 77.0 fL 81.0 - 101 L [facility] Erythrocyte mean corpuscular hemoglobin [Entitic mass] by Automated count 24.4 pg 27.0 - 34.0 L [facility] Erythrocyte mean corpuscular hemoglobin concentration [Mass/volume] by Automated count 31.7 g/dL 31.0 - 36.0 [facility] Erythrocyte distribution width [Ratio] by Automated count 16.5 % 11.5 - 14.5 H [facility] Platelets [#/volume] in Blood by Automated count 365 10^3/uL 150 - 45 0 [facility] Platelet mean volume [Entitic volume] in Blood by Automated count 11.2 fL 7.4 - 10.4 H [facility] Neutrophils/100 leukocytes in Blood by Automated count 83.4 % 37. 0 - 80.0 H [facility] Lymphocytes/100 leukocytes in Blood by Manual count 10.4 % 25.0 - 40.0 L [facility] Monocytes/100 leukocytes in Blood by Automated count 5.6 % 3.0 - 8.0 [facility] Eosinophils/100 leukocytes in Blood by Automated count 0.0 % 0.0 - 7.0 [facility] Basophils/100 leukocytes in Blood by Automated count 0.2 % 0.0 - 2.5 [facility] %IG 0.4 % 0.0 - 0.0 H [facility] al %NRBC 0.0 % 0.0 - 0.0 [facility] al Neutrophils [#/volume] in Blood by Automated count 8.50 10^3/uL 2.00 - 6.90 H [facility] Lymphocytes [#/volume] in Blood by Automated count 1.06 10^3/uL 0.60 - 3.40 [facility] Monocytes [#/volume] in Blood by Automated count 0.57 10^3/uL 0.00 - 0.90 [facility] Eosinophils [#/volume] in Blood by Automated count 0.00 10^3/uL 0.00 - 0.70 [facility] Basophils [#/volume] in Blood by Automated count 0.02 10^3/uL 0.00 - 0.20 [facility] #IG 0.04 10^3/uL 0.00 - 0.10 [facility] ospital #NRBC 0.00 10^3/uL 0.00 - 0.00 [facility] osp[facility] MANUAL DIFF NOT INDICATED [facility] RBC MORPH NOT INDICATED [facility] spital ID Date Data Source [id number] 04/03/2020 05:23:00 PM EST [facility] Name Value Range Interpretation Code Description Data Michelle rce(s) Supporting Document(s) Lactate [Moles/volume] in Serum or Plasma 1.6 MMOL/L 0.2 - 2.2 [facility] ID Date Data Source [id number] 02/17/2020 01:07:00 PM EDT [facility] [address] [place] [address] PHONE: [phone] FAX: [phone] Name .................. : RITTER NATALIYA Martinez Acct Number.................. : [id number] ROOM. ................. : 117-1 Number ................... : [id number] Stay type ............. : O/P Discharge Date......... ... : Admit Date ......... : 02/16/20 Admit Phys .................... : CLAUDIO Date of ....... : 1995 Family Phys ................... : [employer] Phone .................. : [phone] Age ................................ : 24 Film# .................. .:[id number] Sex ................................. : F Unsigned transcriptions are preliminary reports and do not represent a medical or legal document CT ABD & PELVIS W/ IV ONLY [id number] COMPLETE:02/16/20 21:34 KJE [id number] (REASON FOR ABDOMEN: ABDOMINAL PAIN CT OF [...] dose: 507.0 mGycm Page 1 of 2 [facility] [address] [place] [address] PHONE: [phone] FAX: [phone] Name .................. : RITTER NATALIYA Martinez Acct Number.................. : [id number] ROOM. ................. : 117-1 MR Number ................... : [id number] Stay type ............. : O/P Discharge Date......... ... : Admit Date ......... : 02/16/20 Admit Phys .................... : CLAUDIO Date of ....... : 1995 Family Phys ................... : [employer] Phone .................. : [phone] Age ................................ : 24 Film# .................. .:[id number] Sex ................................. : F Unsigned transcriptions are preliminary reports and do not represent a medical or legal document CT ABD & PELVIS W/ IV ONLY [id number] COMPLETE:02/16/20 21:34 KJE [id number] (REASON FOR ABDOMEN: ABDOMINAL PAIN Contrast agent [...] rce(s) Supporting Document(s) ID Date Data Source [id number] 02/17/2020 07:03:00 AM EDT [facility] Name Value Range Interpretation Code Description Data Michelle rce(s) Supporting Document(s) Magnesium [Mass/volume] in Serum or Plasma 2.5 MG/DL 1.7 - 2.2 H [facility] ID Date Data Source [id number] 02/17/2020 07:03:00 AM EDT [facility] Name Value Range Interpretation Code Description Data Michelle rce(s) Supporting Document(s) COMPREHENSIVE METABOLIC PANEL [facility] COMPREHENSIVE METABOLIC PANEL Sodium [Moles/volume] in Serum or Plasma 146 mEq/L 134 - 153 [facility] Potassium [Moles/volume] in Serum or Plasma 3.4 mEq/L 3.6 - 5.0 L [facility] Chloride [Moles/volume] in Serum or Plasma 107 mEq/L 98 - 107 [facility] Carbon dioxide, total [Moles/volume] in Serum or Plasma 29 MEQ/L 22 - 30 [facility] Glucose [Mass/volume] in Serum or Plasma 89 MG/DL 65 - 110 [facility] BUN 12 MG/DL 7 - 21 [facility] al Creatinine [Mass/volume] in Serum or Plasma 0.6 MG/DL 0.7 - 1.5 L [facility] BUN/CREAT 20 8 - 27 [facility] Protein [Mass/volume] in Serum or Plasma 6.1 G/DL 6.3 - 8.2 L [facility] Albumin [Mass/volume] in Serum or Plasma 4.1 G/DL 3.9 - 5.0 [facility] Globulin [Mass/volume] in Serum by calculation 2.0 GM/DL 2.4 - 3.2 L [facility] A/G RATIO 2.1 0.8 - 2.0 H [facility] Calcium [Mass/volume] in Serum or Plasma 9.0 MG/DL 8.4 - 10.2 [facility] Bilirubin.total [Mass/volume] in Serum or Plasma <0.7 MG/DL 0.2 - 1.3 [facility] Alkaline phosphatase [Enzymatic activity/volume] in Serum or Plasma 52 U/L 38 - 126 [facility] Aspartate aminotransferase [Enzymatic activity/volume] in Serum or Plasma 21 U/L 5 - 40 [facility] Alanine aminotransferase [Enzymatic activity/volume] in Seru m or Plasma 44 U/L 7 - 56 [facility] Anion gap 3 in Serum or Plasma 10.0 mmol/L 8.0 - 16.0 [facility] AGE 24 yrs [facility] al NON-AA GFR >60 mL/min [facility] ital AFR AMER GFR >60 mL/min [facility] Male GFR In terprentation 20-49 [...] >32 mL/min Normal ID Date Data Source [id number] 02/17/2020 07:02:00 AM EDT [facility] Name Value Range Interpretation Code Description Data Michelle rce(s) Supporting Document(s) CBC W/AUTOMATED DIFF [facility] COMPLETE BLOOD COUNT Leukocytes [#/volume] in Blood by Automated count 8.4 10^3/uL 4.2 - 1 1.0 [facility] Erythrocytes [#/volume] in Blood by Automated count 3.93 10^6/uL 4. 20 - 5.40 L [facility] Hemoglobin [Mass/volume] in Blood 10.7 g/dL 12.0 - 16.0 L [facility] Hematocrit [Volume Fraction] of Blood by Automated count 33.8 % 3 7.0 - 47.0 L [facility] Erythrocyte mean corpuscular volume [Entitic volume] by Auto mated count 86.0 fL 81.0 - 101 [facility] Erythrocyte mean corpuscular hemoglobin [Entitic mass] by Automated count 27.2 pg 27.0 - 34.0 [facility] Erythrocyte mean corpuscular hemoglobin concentration [Mass/volume] by Automated count 31.7 g/dL 31.0 - 36.0 [facility] Erythrocyte distribution width [Ratio] by Automated count 14.2 % 11.5 - 14.5 [facility] Platelets [#/volume] in Blood by Automated count 267 10^3/uL 150 - 45 0 [facility] Platelet mean volume [Entitic volume] in Blood by Automated count 10.9 fL 7.4 - 10.4 H [facility] Neutrophils/100 leukocytes in Blood by Automated count 64.9 % 37. 0 - 80.0 [facility] Lymphocytes/100 leukocytes in Blood by Manual count 26.3 % 25.0 - 40.0 [facility] Monocytes/100 leukocytes in Blood by Automated count 7.8 % 3.0 - 8.0 [facility] Eosinophils/100 leukocytes in Blood by Automated count 0.2 % 0.0 - 7.0 [facility] Basophils/100 leukocytes in Blood by Automated count 0.4 % 0.0 - 2.5 [facility] %IG 0.4 % 0.0 - 0.0 H [facility] al %NRBC 0.0 % 0.0 - 0.0 [facility] al Neutrophils [#/volume] in Blood by Automated count 5.42 10^3/uL 2.00 - 6.90 [facility] Lymphocytes [#/volume] in Blood by Automated count 2.20 10^3/uL 0.60 - 3.40 [facility] Monocytes [#/volume] in Blood by Automated count 0.65 10^3/uL 0.00 - 0.90 [facility] Eosinophils [#/volume] in Blood by Automated count 0.02 10^3/uL 0.00 - 0.70 [facility] Basophils [#/volume] in Blood by Automated count 0.03 10^3/uL 0.00 - 0.20 [facility] #IG 0.03 10^3/uL 0.00 - 0.10 [facility] #NRBC 0.00 10^3/uL 0.00 - 0.00 [facility] MANUAL DIFF NOT INDICATED [facility] RBC MORPH NOT INDICATED [facility] spital ID Date Data Source [id number] 02/16/2020 04:43:00 PM EDT [facility] 1 OrderSheet [facility] Emergency Department [address] [place] [address] Phone #: ext- [phone] 02/16/2020 16:35 Patient: NATALIYA BEASLEY Sex: F : 1995 Age: 24yWEIGHT:61.2 kg HEIGHT:62 inches BMI:24.7ALLERGIES: No Known Drug AllergyCHIEF COMPLAINT: abdominal pain, vomiting, nausea, constipationDIAGNOSIS: ProblemLAB ORDERSOrder Description Priority Entered Acknowledged InitialedCBC w Diff STAT 17:05 02/16/2020 17:17 [facility] ED; Reye2ANN STAT 17:05 02/16/2020 17:17 [facility] Er ingot stripper, Jc ER PA; [id number] STAT 17:05 02/16/2020 17:17 [facility] Tech, Jc ER PA; [id number] (Clean STAT 17:05 02/16/2020 Ack'd: 17:26Catch) [facility] ingot stripper, PA; Jc ER [id number] STAT 17:05 02/16/2020 17:17 [facility] Tech, Jc ER PA; [id number] STAT 17:05 02/16/2020 17:17 [facility] Tech, Jc ER PA; [id number] (Clean STAT 20:52 02/16/2020 Ack'd: 21:11Catch) Mariano Starks R.N.;Beta- HCG, Qual STAT 20:52 02/16/2020 Ack'd: 21:12Urine Mariano Starks R.N. PA;DIAGNOSTIC STUDY ORDERSOrder Description Priority Entered Acknowledged InitialedMEDICATION/IV/DRIP/FLUID ORDERSOrder Description Priority Entered Acknowledged Initialed 2 OrderSheet [facility] Emergency Department [address] [place] [address] Phone #: ext- [phone] 02/16/2020 16:35 Patient: [...] rce(s) Supporting Document(s) ID Date Data Source [id number] 02/16/2020 04:43:00 PM EDT [facility] 1 Medication Reconciliation Report [facility] Emergency Department [address] [place] [address] Phone #: ext- [phone] 02/16/2020 16:35 Patient: [...] rce(s) Supporting Document(s) ID Date Data Source [id number] 02/16/2020 04:43:00 PM EDT [facility] 1 Medication Administration Record [facility] Emergency Department [address] [place] [address] Phone #: ext- [phone] 02/16/2020 16:35 Patient: NATALIYA BEASLEY Sex: F : 1995 Age: 24yWeight: 61.2 kgHeight/Length: 62 inBMI: 24.7ALLERGIES: No Known Drug Allergy Date/Time Medication Administered Medication OrderedStart IV NS W/ BOLUS NS IV 1000 mL Bolus: : Bolus 788575:[id number] 02/16/2020 Dose: IV Fluids mL (X1)Maria De Jesus Jhaveri, R.N. Rate: 1000 mL/hr over 1 hour(s)---- Dispensed: 1000 mL bagStop Site: #1 right nadyidg61:49 02/16/2020Shakila Maria De Jesus, R.N.Given ZOFRAN [IVP] (ONDANSETRON HCL) Zofran IVP 8 mg17:42 02/16/2020 Dose: 8 mg IVPHale Maria De Jesus, R.N. Site: #1 right forearmStart KCL [IVPB] KCl IVPB 10 meq/100mL (NOW x1)19:56 02/16/2020 Dose: 10 meq IVPBShakila Maria De Jesus, R.N. Rate: 100 mL/hr over 1 hour(s)---- Dispensed: 100 mL bagStop Site: #1 right tvhxtyz34:56 02/16/2020Shakila Maria De Jesus, R.N.Given KCL LIQUID PO KCl Liquid PO 40 meq18:50 02/16/2020 Dose: 40 meq Syrup/Liquid POShakila Maria De Jesus, R.N.Start MAGNESIUM SULFATE [IVPB] Magnesium Sulfate 2 g IVPB X118:49 02/16/2020 Dose: 2 gm IVPB dose: 2 gm (HIGH ALERTShakila Maria De Jesus, R.N. Rate: 2 gm/hr over 1 hour(s) MEDICATION, X1)---- Dispensed: 50 mL bagStop Site: #1 right qaekjnj98:51 02/16/2020Shakila Maria De Jesus, R.N.Start PROTONIX [IVPB] [...] rce(s) Supporting Document(s) ID Date Data Source [id number] 02/16/2020 04:43:00 PM EDT [facility] 1 General Instructions [facility] Emergency Department [address] [place] [address] Phone #: ext- [phone] 02/16/2020 16:35 Patient: NATALIYA BEASLEY Sex: F : 1995 Age: 24yHypokalemia; hypomagnesemia.(Electronically signed by EDUARDO Moses 02/16/2020 21:08) Name Value Range Interpretation Code Description Data Michelle rce(s) Supporting Document(s) ID Date Data Source [id number] 02/16/2020 04:43:00 PM EDT [facility] 1 Clinical Report - Nurses [facility] Emergency Department [address] [place] [address] Phone #: ext- [phone] 02/16/2020 16:35 Patient: [...] to shake after making this statement to caption writer. ptmucous membranes do appear dry.).Triage time: 16:41 02/16/2020. Acuity: LEVEL 3.Chief Complaint: ABDOMINAL PAIN.Alert.Onset. (four days ago). ( pt states "i am a ten, i don't feel well" for her pain scale.). The patient has hadnausea and vomiting. Last oral intake by patient was (this am-yogurt but reports emesis).Treatment COMMODITIES MANAGER:None. --16:46 02/16/20 Natividad Felix R.N.16:41 02/16/20. BP: [...] harming or 2 Clinical Report - Nurses [facility] Emergency Department [address] [place] [address] Phone #: ext- [phone] 02/16/2020 16:35 Patient: [...] ( Pt 3 Clinical Report - Nurses [facility] Emergency Department [address] [place] [address] Phone #: ext- [phone] 02/16/2020 16:35 Patient: [...] precautions. Verbalizes 4 Clinical Report - Nurses [facility] Emergency Department [address] [place] [address] Phone #: ext- [phone] 02/16/2020 16:35 Patient: NATALIYA BEASLEY Sex: F : 1995 Age: 24y understanding. --21:17 02/16/20 Maria De Jesus Jhaveri R.N. 21:21 02/16/20. Patient transported to [place] by wheelchair with mask and research technician. --21:26 02/16/20 Maria De Jesus Jhaveri R.N. Patient returned from CT by wheelchair with mask and research technician. --21:34 02/16/20 Maria De Jesus Jhaveri [...] rce(s) Supporting Document(s) ID Date Data Source [id number] 02/16/2020 04:43:00 PM EDT [facility] 1 Clinical Report - Physicians/Mid Levels [facility] Emergency Department [address] [place] [address] Phone #: ext- [phone] 02/16/2020 16:35 Patient: NATALIYA BEASLEY Sex: F [...] to shake after making this statement to caption writer. pt mucous membranes do appear dry [...] normal. 2 Clinical Report - Physicians/Mid Levels [facility] Emergency Department [address] [place] [address] Phone #: ext- [phone] 02/16/2020 16:35 [id number] Sex: F : 1995 Age: 24y Neck: [...] 107) 3 Clinical Report - Physicians/Mid Levels [facility] Emergency Department [address] [place] [address] Phone #: ext- [phone] 02/16/2020 16:35 Patient: [...] (Discussed mag and potassium levelswith Sarah CASIANO NETBACKUP ADMIN and she will obs pt. Pt is [...] and 4 Clinical Report - Physicians/Mid Levels [facility] Emergency Department [address] [place] [address] Phone #: ext- [phone] 02/16/2020 16:35 Patient: NATALIYA BEASLEY Sex: F : 1995 Age: 24y need for admission. Patient and mother agrees with plan of care. 18:38 Feb 16 2020. Disposition: Observation in the Acute Inpatient Unit, Monitored. 18:38 Feb 16 2020 Sarah CASIANO NETBACKUP ADMIN. UTI (catheter associated) was not present prior [...] rce(s) Supporting Document(s) ID Date Data Source [id number] 02/20/2020 03:47:00 PM EDT [facility] Name Value Range Interpretation Code Description Data Michelle rce(s) Supporting Document(s) CULTURE URINE [facility] _CULTURE URINE_$$[id number]$$[id number]$$[id number]$$[id number]$$[id number]$$792284$$987342$$956351$$932403$$ 489104$$530656$$109889$$150796$$801662$$536127$$038607$$219255$$704943$$232563$$ 685755$$954865$$532628$$234226$$211126$$456435$$646761$$032925 -- Continued on next page --Patient: RITTER NATALIYA Martinez Order: [id number] Page 2Culture: CULTURE URINE Status: Final ==== -- Continued on next page --Patient: RITTER NATALIYA Martinez Order: [id number] Page 2Culture: CULTURE URINE Status: Prelim =====$$[id number]$$[id number] DATE/TIME: 02/20/2020 15:06Culture: CULTURE URINE Status: FinalUrine Culture,Comprehensive: [id number] urogenital flora10,000-25,000 colony forming units per mL Previous result entered on 02/19/2020 03:15 ET Specimen has been received and testing has been initiated.P1 Test performed by: [facility] Roly CLANCY #: [id number] [address] [place] [address] [phone] [facility] [id number] Director : Abhilash Hilario MD NPI #:[employer]ing Machine Operator : 02/20/20.0635.XMT.SENT REF 02/20/20.1548.XMT.SENT REF 02/20/20.1548.CM .to GENNARO via fax ID Date Data Source [id number] 02/16/2020 09:26:00 PM EDT [facility] Name Value Range Interpretation Code Description Data Michelle rce(s) Supporting Document(s) [facility] R [facility] COL[facility] yellow NORMAL: Yellow [facility] CLARITY clear NORMAL: Clear [facility] Specific gravity of Urine by Test strip 1.010 1.001 - 1.030 [facility] pH 7 5 - 9 [facility] al Glucose [Mass/volume] in Urine by Test strip NORM NORMAL: Negat [facility] Bilirubin.total [Presence] in Urine by Test strip NEG NORMAL: Negative [facility] Ketones [Presence] in Urine by Test strip 150 NORMAL: Negative A [facility] Protein [Mass/volume] in Urine by Test strip 30 NORMAL: Negat [facility] Nitrite [Presence] in Urine by Test strip NEG NORMAL: Negative [facility] BLOOD NEG NORMAL: Negative [facility] Leukocyte esterase [Presence] in Urine by Test strip 25 DAYLIN L: Negative [facility] Urobilinogen [Mass/volume] in Urine by Test strip 4 less tito n 1.0 mg/dL [facility] MICROSCOPIC See Below [facility] ital WBC 0 - 1 NORMAL: NONE SEEN [facility] Erythrocytes [#/volume] in Urine by Test strip 0 - 1 NORMAL: NON E SEEN [facility] EPITHELIAL MANY NORMAL: NONE SEEN A [facility] Bacteria [Presence] in Urine sediment by Light microscopy 2+ MOD NORMAL: NONE SEEN A [facility] ID Date Data Source [id number] 02/16/2020 09:24:00 PM EDT [facility] Name Value Range Interpretation Code Description Data Michelle rce(s) Supporting Document(s) HCG URINE QUAL NEGATIVE NORMAL: NEGATIVE [facility] HCG URINE QL REENTER NEGATIVE NORMAL: NEGATIVE [facility] { KIT LOT # [id number] ){ KIT EXP DATE 02/20/21 ){ PROCEDURAL CONTROL VALID ) ID Date Data Source [id number] 02/16/2020 09:22:00 PM EDT [facility] Name Value Range Interpretation Code Description Data Michelle rce(s) Supporting Document(s) HCG SERUM QUAL NEGATIVE NORMAL: NEGATIVE [facility] HCG SERUM QL REENTER NEGATIVE NORMAL: NEGATIVE [facility] { KIT LOT # [id number] ){ KIT EXP DATE 02.20.21 ){ PROCEDURAL CONTROL VALID ) ID Date Data Source [id number] 02/16/2020 06:04:00 PM EDT [facility] Name Value Range Interpretation Code Description Data Michelle rce(s) Supporting Document(s) Ethanol [Moles/volume] in Blood <10.0 MG/DL [facility] ALCOHOL % 0.00 % 0.00 - 0.01 [facility] *FOR MEDICAL PURPOSES ONLY * ID Date Data Source [id number] 02/16/2020 06:04:00 PM EDT [facility] Name Value Range Interpretation Code Description Data Michelle rce(s) Supporting Document(s) Magnesium [Mass/volume] in Serum or Plasma 1.6 MG/DL 1.7 - 2.2 L [facility] ID Date Data Source [id number] 02/16/2020 06:04:00 PM EDT [facility] Name Value Range Interpretation Code Description Data Michelle rce(s) Supporting Document(s) Lipase [Enzymatic activity/volume] in Serum or Plasma 15 U/L 13 - 60 [facility] ID Date Data Source [id number] 02/16/2020 06:00:00 PM EDT [facility] Name Value Range Interpretation Code Description Data Michelle rce(s) Supporting Document(s) COMPREHENSIVE METABOLIC PANEL [facility] COMPREHENSIVE METABOLIC PANEL Sodium [Moles/volume] in Serum or Plasma 141 mEq/L 134 - 153 [facility] Potassium [Moles/volume] in Serum or Plasma 2.6 mEq/L 3.6 - 5.0 LL [facility] CALL/ READ BACK BEN IN ER [facility] BY: CD [facility] DATE/TIME 02.16.201801 [facility] Chloride [Moles/volume] in Serum or Plasma 95 mEq/L 98 - 107 L [facility] Carbon dioxide, total [Moles/volume] in Serum or Plasma 28 MEQ/L 22 - 30 [facility] Glucose [Mass/volume] in Serum or Plasma 108 MG/DL 65 - 110 [facility] BUN 17 MG/DL 7 - 21 [facility] al Creatinine [Mass/volume] in Serum or Plasma 0.6 MG/DL 0.7 - 1.5 L [facility] BUN/CREAT 28 8 - 27 H [facility] al Protein [Mass/volume] in Serum or Plasma 8.3 G/DL 6.3 - 8.2 H [facility] Albumin [Mass/volume] in Serum or Plasma 5.3 G/DL 3.9 - 5.0 H [facility] Globulin [Mass/volume] in Serum by calculation 3.0 GM/DL 2.4 - 3.2 [facility] A/G RATIO 1.8 0.8 - 2.0 [facility] Calcium [Mass/volume] in Serum or Plasma 10.3 MG/DL 8.4 - 10.2 H [facility] Bilirubin.total [Mass/volume] in Serum or Plasma 0.9 MG/DL 0.2 - 1.3 [facility] Alkaline phosphatase [Enzymatic activity/volume] in Serum or Plasma 71 U/L 38 - 126 [facility] Aspartate aminotransferase [Enzymatic activity/volume] in Serum or Plasma 36 U/L 5 - 40 [facility] Alanine aminotransferase [Enzymatic activity/volume] in Seru m or Plasma 63 U/L 7 - 56 H [facility] Anion gap 3 in Serum or Plasma 18.0 mmol/L 8.0 - 16.0 H [facility] AGE 24 yrs [facility] al NON-AA GFR >60 mL/min [facility] ital AFR AMER GFR >60 mL/min [facility] Male GFR In terprentation 20-49 [...] >32 mL/min Normal ID Date Data Source [id number] 02/16/2020 05:38:00 PM EDT [facility] Name Value Range Interpretation Code Description Data Michelle rce(s) Supporting Document(s) CBC W/AUTOMATED DIFF [facility] COMPLETE BLOOD COUNT Leukocytes [#/volume] in Blood by Automated count 10.4 10^3/uL 4.2 - 11.0 [facility] Erythrocytes [#/volume] in Blood by Automated count 4.60 10^6/uL 4. 20 - 5.40 [facility] Hemoglobin [Mass/volume] in Blood 12.6 g/dL 12.0 - 16.0 [facility] Hematocrit [Volume Fraction] of Blood by Automated count 37.9 % 3 7.0 - 47.0 [facility] Erythrocyte mean corpuscular volume [Entitic volume] by Auto mated count 82.4 fL 81.0 - 101 [facility] Erythrocyte mean corpuscular hemoglobin [Entitic mass] by Automated count 27.4 pg 27.0 - 34.0 [facility] Erythrocyte mean corpuscular hemoglobin concentration [Mass/volume] by Automated count 33.2 g/dL 31.0 - 36.0 [facility] Erythrocyte distribution width [Ratio] by Automated count 13.8 % 11.5 - 14.5 [facility] Platelets [#/volume] in Blood by Automated count 360 10^3/uL 150 - 45 0 [facility] Platelet mean volume [Entitic volume] in Blood by Automated count 10.7 fL 7.4 - 10.4 H [facility] Neutrophils/100 leukocytes in Blood by Automated count 77.0 % 37. 0 - 80.0 [facility] Lymphocytes/100 leukocytes in Blood by Manual count 14.3 % 25.0 - 40.0 L [facility] Monocytes/100 leukocytes in Blood by Automated count 8.0 % 3.0 - 8.0 [facility] Eosinophils/100 leukocytes in Blood by Automated count 0.0 % 0.0 - 7.0 [facility] Basophils/100 leukocytes in Blood by Automated count 0.2 % 0.0 - 2.5 [facility] %IG 0.5 % 0.0 - 0.0 H [facility] %NRBC 0.0 % 0.0 - 0.0 [facility] al Neutrophils [#/volume] in Blood by Automated count 7.98 10^3/uL 2.00 - 6.90 H [facility] Lymphocytes [#/volume] in Blood by Automated count 1.48 10^3/uL 0.60 - 3.40 [facility] Monocytes [#/volume] in Blood by Automated count 0.83 10^3/uL 0.00 - 0.90 [facility] Eosinophils [#/volume] in Blood by Automated count 0.00 10^3/uL 0.00 - 0.70 [facility] Basophils [#/volume] in Blood by Automated count 0.02 10^3/uL 0.00 - 0.20 [facility] #IG 0.05 10^3/uL 0.00 - 0.10 [facility] #NRBC 0.00 10^3/uL 0.00 - 0.00 [facility] MANUAL DIFF NOT INDICATED [facility] RBC MORPH NOT INDICATED [facility] spital ID Date Data Source [id number] 01/19/2020 08:44:00 AM EDT [facility] Name Value Range Interpretation Code Description Data Michelle rce(s) Supporting Document(s) HCT 28.4 % 36.0-47.0 L [facility] HGB 9.3 g/dL 12.0-15.5 L [facility] MCH 32.7 G/DL pg 32.0-36.5 N [facility] MCHC 31.1 PG % 27.0-33.0 N [facility] PLATELETS 164 10 10*3/mm3 150-450 N [facility] RBC 2.99 10 10*6/mm3 4.00-5.40 L [facility] RDW 13.2 % 11.5-14.5 N [facility] WBC TOTAL 7.3 4.0-10.0 N [facility] ID Date Data Source [id number] 01/19/2020 08:44:00 AM EDT [facility] Name Value Range Interpretation Code Description Data Michelle rce(s) Supporting Document(s) BG FASTING 108 mg/dL 70-100 H [facility] ID Date Data Source [id number] 01/18/2020 04:42:00 AM EDT [facility] 27.49.233.6 G/DL31.4 PG183 102.93 1013.9 9.8 98 30.810.433.8 G/DL31.6 PG176 103.29 1013. 410.7 109 Name Value Range Interpretation Code Description Data Michelle rce(s) Supporting Document(s) ID Date Data Source [id number] 01/18/2020 04:42:00 AM EDT [facility] 27.49.233.6 G/DL31.4 PG183 102.93 1013.9 9.8 98 30.810.433.8 G/DL31.6 PG176 103.29 1013. 410.7 109 Name Value Range Interpretation Code Description Data Michelle rce(s) Supporting Document(s) ID Date Data Source [id number] 01/17/2020 07:33:00 PM EDT [facility] 27.49.233.6 G/DL31.4 PG183 102.93 1013.9 9.8 98 30.810.433.8 G/DL31.6 PG176 103.29 1013. 410.7 109 Name Value Range Interpretation Code Description Data Michelle rce(s) Supporting Document(s) ID Date Data Source [id number] 01/17/2020 07:33:00 PM EDT [facility] 27.49.233.6 G/DL31.4 PG183 102.93 1013.9 9.8 98 30.810.433.8 G/DL31.6 PG176 103.29 1013. 410.7 109 Name Value Range Interpretation Code Description Data Michelle rce(s) Supporting Document(s) ID Date Data Source [id number] 12/27/2019 03:38:00 PM EDT [facility] Name Value Range Interpretation Code Description Data Michelle rce(s) Supporting Document(s) Potassium [Moles/volume] in Serum or Plasma 3.6 mEq/L 3.6 - 5.0 [facility] ID Date Data Source [id number] 12/27/2019 07:03:00 AM EDT [facility] Name Value Range Interpretation Code Description Data Michelle rce(s) Supporting Document(s) COMPREHENSIVE METABOLIC PANEL [facility] COMPREHENSIVE METABOLIC PANEL Sodium [Moles/volume] in Serum or Plasma 137 mEq/L 134 - 153 [facility] Potassium [Moles/volume] in Serum or Plasma 3.2 mEq/L 3.6 - 5.0 L [facility] Chloride [Moles/volume] in Serum or Plasma 101 mEq/L 98 - 107 [facility] Carbon dioxide, total [Moles/volume] in Serum or Plasma 27 MEQ/L 22 - 30 [facility] Glucose [Mass/volume] in Serum or Plasma 91 MG/DL 65 - 110 [facility] BUN 9 MG/DL 7 - 21 [facility] Creatinine [Mass/volume] in Serum or Plasma 0.5 MG/DL 0.7 - 1.5 L [facility] BUN/CREAT 18 8 - 27 [facility] Protein [Mass/volume] in Serum or Plasma 6.0 G/DL 6.3 - 8.2 L [facility] Albumin [Mass/volume] in Serum or Plasma 3.9 G/DL 3.9 - 5.0 [facility] Globulin [Mass/volume] in Serum by calculation 2.1 GM/DL 2.4 - 3.2 L [facility] A/G RATIO 1.9 0.8 - 2.0 [facility] Calcium [Mass/volume] in Serum or Plasma 8.8 MG/DL 8.4 - 10.2 [facility] Bilirubin.total [Mass/volume] in Serum or Plasma 1.4 MG/DL 0.2 - 1.3 H [facility] Alkaline phosphatase [Enzymatic activity/volume] in Serum or Plasma 49 U/L 38 - 126 [facility] Aspartate aminotransferase [Enzymatic activity/volume] in Serum or Plasma 32 U/L 5 - 40 [facility] Alanine aminotransferase [Enzymatic activity/volume] in Seru m or Plasma 33 U/L 7 - 56 [facility] Anion gap 3 in Serum or Plasma 9.0 mmol/L 8.0 - 16.0 [facility] AGE 24 yrs [facility] al NON-AA GFR >60 mL/min [facility] ital AFR AMER GFR >60 mL/min [facility] Male GFR In terprentation 20-49 [...] >32 mL/min Normal ID Date Data Source [id number] 12/27/2019 06:51:00 AM EDT [facility] Name Value Range Interpretation Code Description Data Michelle rce(s) Supporting Document(s) Magnesium [Mass/volume] in Serum or Plasma 2.1 MG/DL 1.7 - 2.2 [facility] ID Date Data Source [id number] 12/27/2019 06:43:00 AM EDT [facility] Name Value Range Interpretation Code Description Data Michelle e(s) Supporting Document(s) CBC W/AUTOMATED DIFF [facility] COMPLETE BLOOD COUNT Leukocytes [#/volume] in Blood by Automated count 8.3 10^3/uL 4.2 - 1 1.0 [facility] Erythrocytes [#/volume] in Blood by Automated count 4.06 10^6/uL 4. 20 - 5.40 L [facility] Hemoglobin [Mass/volume] in Blood 12.7 g/dL 12.0 - 16.0 [facility] Hematocrit [Volume Fraction] of Blood by Automated count 37.3 % 3 7.0 - 47.0 [facility] Erythrocyte mean corpuscular volume [Entitic volume] by Auto mated count 91.9 fL 81.0 - 101 [facility] Erythrocyte mean corpuscular hemoglobin [Entitic mass] by Automated count 31.3 pg 27.0 - 34.0 [facility] Erythrocyte mean corpuscular hemoglobin concentration [Mass/volume] by Automated count 34.0 g/dL 31.0 - 36.0 [facility] Erythrocyte distribution width [Ratio] by Automated count 12.5 % 11.5 - 14.5 [facility] Platelets [#/volume] in Blood by Automated count 231 10^3/uL 150 - 45 0 [facility] Platelet mean volume [Entitic volume] in Blood by Automated count 10.2 fL 7.4 - 10.4 [facility] Neutrophils/100 leukocytes in Blood by Automated count 65.2 % 37. 0 - 80.0 [facility] Lymphocytes/100 leukocytes in Blood by Manual count 25.2 % 25.0 - 40.0 [facility] Monocytes/100 leukocytes in Blood by Automated count 8.8 % 3.0 - 8.0 H [facility] Eosinophils/100 leukocytes in Blood by Automated count 0.2 % 0.0 - 7.0 [facility] Basophils/100 leukocytes in Blood by Automated count 0.2 % 0.0 - 2.5 [facility] %IG 0.4 % 0.0 - 0.0 H [facility] %NRBC 0.0 % 0.0 - 0.0 [facility] Neutrophils [#/volume] in Blood by Automated count 5.41 10^3/uL 2.00 - 6.90 [facility] Lymphocytes [#/volume] in Blood by Automated count 2.09 10^3/uL 0.60 - 3.40 [facility] Monocytes [#/volume] in Blood by Automated count 0.73 10^3/uL 0.00 - 0.90 [facility] Eosinophils [#/volume] in Blood by Automated count 0.02 10^3/uL 0.00 - 0.70 [facility] Basophils [#/volume] in Blood by Automated count 0.02 10^3/uL 0.00 - 0.20 [facility] #IG 0.03 10^3/uL 0.00 - 0.10 [facility] #NRBC 0.00 10^3/uL 0.00 - 0.00 [facility] MANUAL DIFF NOT INDICATED [facility] RBC MORPH NOT INDICATED [facility] spital ID Date Data Source [id number] 12/26/2019 10:41:00 [place] [address] RESPIRATORY CARE REPORT ==== ---------NAME------- NUMBER SEX AGE ADMIT DISC. XRAY# F/C TYPERIARIN Martinez [id number] F 24 12/26/19 [id number] X6B O/P DATE OF : 1995 M/R# [id number] #: [id number] LOCATION: EMERGENCY DEPT EKG 13309 COMP LETE:12/26/19 14:18 EWW [id number] PHYSICIAN: CLAUDIO PAUL Name Value Range Interpretation Code Description Data Michelle rce(s) Supporting Document(s) ID Date Data Source [id number] 12/26/2019 10:59:00 AM EDT [facility] 1 OrderSheet [facility] Emergency Department [address] [place] [address] Phone #: ext- [phone] 12/26/2019 10:40 Patient: [...] 1000 11:03 12/26/2019 11:22 Sallykumaro, 2 OrderSheet [facility] Emergency Department [address] [place] [address] Phone #: ext- [phone] 12/26/2019 10:40 Patient: [...] rce(s) Supporting Document(s) ID Date Data Source [id number] 12/26/2019 10:59:00 AM EDT [facility] 1 Medication Reconciliation Report [facility] Emergency Department [address] [place] [address] Phone #: ext- [phone] 12/26/2019 10:40 Patient: [...] Name Value Range Interpretation Code Description Data Michelel rce(s) Supporting Document(s) ID Date Data Source [id number] 12/26/2019 10:59:00 AM EDT [facility] 1 Medication Administration Record [facility] Emergency Department [address] [place] [address] Phone #: ext- [phone] 12/26/2019 10:40 Patient: NATALIYA BEASLEY Sex: F : 1995 Age: 24yWeight: 58.9 kgHeight/Length: 64 inBMI: 22.3ALLERGIES: Sulfa Antibiotics Date/Time Medication Administered Medication OrderedStart LR [IV] LR IV : Bolus 1000 mL, then 59367:22 12/26/2019 Dose: IV Fluids mL/hrZakiya Quiles, R.N. Bolus: 1000 mL wide open---- Dispensed: 1000 mL bagStop Site: #1 left AC16:30 12/26/2019Zakiya Quiles, R.N.Given KCL LIQUID PO KCl Liquid PO 40 meq12:18 12/26/2019 Dose: 40 meq Zakiya Mary, R.N.Start KCL [IVPB] KCl IVPB 10 meq/935sA71:15 12/26/2019 Dose: 10 meq IVPBZakiya Quiles, R.N. [...] Mary R.N.Start KCL [IVPB] KCl IVPB 10 meq/457pO51:06 12/26/2019 Dose: 10 meq IVPBZakiya Quiles R.N. Rate: 100 mL/hr over 1 hour(s)---- Dispensed: 100 mL bagStop Site: #1 left AC16:11 12/26/2019Zakiya Quiles RPuraGiven ZOFRAN [IVP] (ONDANSETRON HCL) Zofran IVP 8 mg15:36 12/26/2019 Dose: 8 mg Alexia Kelly RSvetaNSveta Site: #1 left AC Name Value Range Interpretation Code Description Data Michelle rce(s) Supporting Document(s) ID Date Data Source [id number] 12/26/2019 10:59:00 AM EDT [facility] 1 General Instructions [facility] Emergency Department [address] [place] [address] Phone #: ext- [phone] 12/26/2019 10:40 Patient: NATALIYA BEASLEY Sex: F : 1995 Age: 24yHypokalemia.(Electronically signed by EDUARDO Moses 12/26/2019 21:44) Name Value Range Interpretation Code Description Data Michelle rce(s) Supporting Document(s) ID Date Data Source [id number] 12/26/2019 10:59:00 AM EDT [facility] 1 Clinical Report - Nurses [facility] Emergency Department [address] [place] [address] Phone #: ext- [phone] 12/26/2019 10:40 Patient: [...] pain, pt also voicescramps in her hands).Treatment COMMODITIES MANAGER:None.SEPSIS SCREEN: SIRS Screen negative. Sepsis Screen negative. [...] to Coronavirus. 2 Clinical Report - Nurses [facility] Emergency Department [address] [place] [address] Phone #: ext- [phone] 12/26/2019 10:40 Patient: [...] Quiles R.N. 3 Clinical Report - Nurses [facility] Emergency Department [address] [place] [address] Phone #: ext- [phone] 12/26/2019 10:40 Patient: NATALIYA BEASLEY Sex: F [...] infused: 1000. 4 Clinical Report - Nurses [facility] Emergency Department [address] [place] [address] Phone #: ext- [phone] 12/26/2019 10:40 Patient: [...] Quiles R.N. 5 Clinical Report - Nurses [facility] Emergency Department [address] [place] [address] Phone #: ext- [phone] 12/26/2019 10:40 [id number] Sex: [facility] : 1995 Age: 24yLocked/Released at 12/26/2019 16:39 by Zakiya Quiles R.N. Name Value Range Interpretation Code Description Data Michelle rce(s) Supporting Document(s) ID Date Data Source [id number] 12/26/2019 10:59:00 AM EDT [facility] 1 Clinical Report - Physicians/Mid Levels [facility] Emergency Department [address] [place] [address] Phone #: ext- [phone] 12/26/2019 10:40 Patient: NATALIYA BEASLEY Sex: F [...] Antibiotics. 2 Clinical Report - Physicians/Mid Levels [facility] Emergency Department [address] [place] [address] Phone #: ext- [phone] 12/26/2019 10:40 Patient: NATALIYA BEASLEY Sex: F [...] (3.6 - 5.0) CALL/ READ BACK NIK [employer]ER BY: LINDA DATE/TIME [id number] CHLORIDE 86 L mEq/L (98 - 107) [...] 1.3) 3 Clinical Report - Physicians/Mid Levels [facility] Emergency Department [address] [place] [address] Phone #: ext- [phone] 12/26/2019 10:40 Patient: NATALIYA BEASLEY Sex: F : 1995 Age: 24y ALKALINE PHOS 63 U/L (38 - 126) SGOT/AST 16 U/L (5 - 40) SGPT/ALT 16 U/L (7 - 56) ANION GAP 19.0 H mmol/L (8.0 - 16.0) AGE 24 yrs NON- AA GFR >60 mL/min AFR AMER GFR >60 mL/min Male GFR Interprentation 20-49 yrs >60 mL/min Jkboqu56-66 yrs >56 mL/min Normal 60-69 yrs >49 mL/min Normal 70-79yrs>42 mL/min Normal 80 and above >35 mL/min Normal Female GFRInterpretation 20-39 yrs >60 mL/min Normal 40-49 yrs >58 mL/minNormal 50-59 yrs >51 mL/min Normal 60-69 yrs >45 mL/min Qdrwle33-49 yrs >39 mL/min Normal 80 and above [...] CALL/ READ BACK CALLED TO RUSTY BY: [facility] DATE/TIME 12/26/19 @ [id number] 4 Clinic al Report - Physicians/Mid Levels [facility] Emergency Department [address] [place] [address] Phone #: ext- [phone] 12/26/2019 10:40 Patient: [...] Male GFR Interprentation 20-49 yrs >60 mL/min Gvjbji46-33 yrs >56 mL/min Normal 60-69 yrs >49 mL/min Normal 70-79yrs>42 mL/min Normal 80 and above >35 mL/min Normal Female GFRInterpretation 20-39 yrs >60 mL/min Normal 40-49 yrs >58 mL/minNormal 50-59 yrs >51 mL/min Normal 60-69 yrs >45 mL/min Aysnca14- 79 yrs >39 mL/min Normal 80 and above >32 mL/min NormalUrinalysis: (ANGELY: 12/26/2019 13:00) ( [facility] 12/26/2019 14:21) Final results Test Result Flag [...] NoneBeta-HCG, Qual Urine: (ANGELY: 12/26/2019 13:00) ( [facility] 12/26/2019 14:22) Final results Test Result Flag Units (Reference) HCG URINE QUAL NEGATIVE (NORMAL: NEGAT HCG URINE QL REENTER NEGATIVE (NORMAL: NEGAT { KIT LOT # [id number] ){ KIT EXP DATE02.27.21 ){ PROCEDURAL CONTROL VALID) 5 Clinical Report - Physicians/Mid Levels [facility] Emergency Department [address] [place] [address] Phone #: ext- [phone] 12/26/2019 10:40 Patient: NATALIYA BEASLEY Sex: F : 1995 Age: 24y Troponin-T: (ANGELY: 12/26/2019 11:10) ( [facility] 12/26/2019 11:48) Final results Test Result Flag Units (Reference) TROPONIN T <0.01 NG/ML (0.00 - 0.10) TROPONIN T0.1 ng/ml Recommended as the clinical threshold value forTroponin T. Magnesium: (ANGELY: 12/26/2019 11:10) ( [facility] 12/26/2019 12:04) Final results Test Result Flag Units (Reference) MAGNESIUM 1.5 L MG/DL (1.7 - 2.2) EKG: (ANGELY: 12/26/2019 11:03) ( [facility] 12/26/2019 14:34) In Progress.PROGRESS AND PROCEDURESCourse of Care: 15:Dec 26 2019. Evaluation after observation and results of tests back. (Sherrie CASIANO NETBACKUP ADMIN and she will admit pt to obs to correct K. Pt is agreeable with dx and tx plan.). Patient counseled in person regarding the patient's stable but serious condition, test results, diagnosis and need for admission. Patient agrees with plan of care. 15:Dec 26 2019. Disposition: Observation in the Acute Inpatient Unit, Monitored. 15:Dec 26 2019 Sarah CASIANO NETBACKUP ADMIN. UTI (catheter associated) was not present prior [...] rce(s) Supporting Document(s) ID Date Data Source [id number] 12/26/2019 04:05:00 PM EDT [facility] Name Value Range Interpretation Code Description Data Michelle rce(s) Supporting Document(s) BASIC METABOLIC PANEL [facility] BASIC METABOLIC PANEL Sodium [Moles/volume] in Serum or Plasma 134 mEq/L 134 - 153 [facility] Potassium [Moles/volume] in Serum or Plasma 3.0 mEq/L 3.6 - 5.0 L [facility] Chloride [Moles/volume] in Serum or Plasma 88 mEq/L 98 - 107 L [facility] Carbon dioxide, total [Moles/volume] in Serum or Plasma 29 MEQ/L 22 - 30 [facility] Glucose [Mass/volume] in Serum or Plasma 106 MG/DL 65 - 110 [facility] BUN 14 MG/DL 7 - 21 [facility] al Creatinine [Mass/volume] in Serum or Plasma 0.8 MG/DL 0.7 - 1.5 [facility] BUN/CREAT 18 8 - 27 [facility] al Calcium [Mass/volume] in Serum or Plasma 9.7 MG/DL 8.4 - 10.2 [facility] Anion gap 3 in Serum or Plasma 17.0 mmol/L 8.0 - 16.0 H [facility] AGE 24 yrs [facility] al AFR AMER GFR >60 mL/min [facility] spital NON-AA GFR >60 mL/min [facility] ital Male GFR Inter prentation 20-49 [...] >32 mL/min Normal ID Date Data Source [id number] 12/26/2019 02:24:00 PM EDT [facility] Name Value Range Interpretation Code Description Data Michelle rce(s) Supporting Document(s) COMPREHENSIVE METABOLIC PANEL [facility] COMPREHENSIVE METABOLIC PANEL Sodium [Moles/volume] in Serum or Plasma 132 mEq/L 134 - 153 L [facility] Potassium [Moles/volume] in Serum or Plasma 2.9 mEq/L 3.6 - 5.0 LL [facility] CALL/ READ BACK NIK [employer]OE POLISHER [facility] BY: LINDA [facility] [id number] [facility] Chloride [Moles/volume] in Serum or Plasma 86 mEq/L 98 - 107 L [facility] Carbon dioxide, total [Moles/volume] in Serum or Plasma 27 MEQ/L 22 - 30 [facility] Glucose [Mass/volume] in Serum or Plasma 118 MG/DL 65 - 110 H [facility] BUN 15 MG/DL 7 - 21 [facility] al Creatinine [Mass/volume] in Serum or Plasma 0.7 MG/DL 0.7 - 1.5 [facility] BUN/CREAT 21 8 - 27 [facility] al Protein [Mass/volume] in Serum or Plasma 7.7 G/DL 6.3 - 8.2 [facility] Albumin [Mass/volume] in Serum or Plasma 5.0 G/DL 3.9 - 5.0 [facility] Globulin [Mass/volume] in Serum by calculation 2.7 GM/DL 2.4 - 3.2 [facility] A/G RATIO 1.9 0.8 - 2.0 [facility] al Calcium [Mass/volume] in Serum or Plasma 10.2 MG/DL 8.4 - 10.2 [facility] Bilirubin.total [Mass/volume] in Serum or Plasma 1.4 MG/DL 0.2 - 1.3 H [facility] Alkaline phosphatase [Enzymatic activity/volume] in Serum or Plasma 63 U/L 38 - 126 [facility] Aspartate aminotransferase [Enzymatic activity/volume] in Serum or Plasma 16 U/L 5 - 40 [facility] Alanine aminotransferase [Enzymatic activity/volume] in Seru m or Plasma 16 U/L 7 - 56 [facility] Anion gap 3 in Serum or Plasma 19.0 mmol/L 8.0 - 16.0 H [facility] AGE 24 yrs [facility] NON-[facility] GFR >60 mL/min [facility] ital AFR AMER GFR >60 mL/min [facility] Male GFR In terprentation 20-49 [...] >32 mL/min Normal ID Date Data Source [id number] 12/26/2019 03:36:00 PM EDT [facility] Name Value Range Interpretation Code Description Data Michelle rce(s) Supporting Document(s) URINALYSIS [facility] URINALYSIS SOURCE R [facility] COLOR yellow NORMAL: Yellow [facility] CLARITY Clear NORMAL: Clear [facility] Specific gravity of Urine by Test strip 1.010 1.001 - 1.030 [facility] pH 8 5 - 9 [facility] al Glucose [Mass/volume] in Urine by Test strip NORM NORMAL: Negat [facility] Bilirubin.total [Presence] in Urine by Test strip NEG NORMAL: Negative [facility] Ketones [Presence] in Urine by Test strip 15 NORMAL: Negative A [facility] Protein [Mass/volume] in Urine by Test strip 15 NORMAL: Negat [facility] Nitrite [Presence] in Urine by Test strip NEG NORMAL: Negative [facility] BLOOD NEG NORMAL: Negative [facility] Leukocyte esterase [Presence] in Urine by Test strip 25 DAYLIN L: Negative [facility] Urobilinogen [Mass/volume] in Urine by Test strip 1 less tito n 1.0 mg/dL [facility] MICROSCOPIC See Below [facility] ital WBC 3 - 5 NORMAL: NONE SEEN [facility] Erythrocytes [#/volume] in Urine by Test strip 0 - 1 NORMAL: NON E SEEN [facility] EPITHELIAL MANY NORMAL: NONE SEEN A [facility] Bacteria [Presence] in Urine sediment by Light microscopy Tr laura NORMAL: NONE SEEN [facility] Mucus [Presence] in Urine sediment by Light microscopy 2+ NOR MAL: NONE SEEN A [facility] Casts [#/area] in Urine sediment by Microscopy low power field See Be low [facility] Hyaline casts [#/area] in Urine sediment by Microscopy low p ower field 1-3 NORMAL: None Seen A [facility] ID Date Data Source [id number] 12/26/2019 02:21:00 PM EDT [facility] Name Value Range Interpretation Code Description Data Michelle rce(s) Supporting Document(s) HCG URINE QUAL NEGATIVE NORMAL: NEGATIVE [facility] HCG URINE QL REENTER NEGATIVE NORMAL: NEGATIVE [facility] { KIT LOT # [id number] ){ KIT EXP DATE 02.27.21 ){ PROCEDURAL CONTROL VALID ) ID Date Data Source [id number] 12/26/2019 05:19:00 PM EDT [facility] Name Value Range Interpretation Code Description Data Michelle rce(s) Supporting Document(s) Folate [Mass/volume] in Serum or Plasma 14.6 NG/ML 5.0 - 27.2 [facility] ID Date Data Source [id number] 12/26/2019 12:03:00 PM T [facility] Name Value Range Interpretation Code Description Data Michelle rce(s) Supporting Document(s) Magnesium [Mass/volume] in Serum or Plasma 1.5 MG/DL 1.7 - 2.2 L [facility] ID Date Data Source [id number] 12/26/2019 12:01:00 PM EDT [facility] Name Value Range Interpretation Code Description Data Michelle rce(s) Supporting Document(s) COMPREHENSIVE METABOLIC PANEL [facility] COMPREHENSIVE METABOLIC PANEL Sodium [Moles/volume] in Serum or Plasma 134 mEq/L 134 - 153 [facility] Potassium [Moles/volume] in Serum or Plasma 2.9 mEq/L 3.6 - 5.0 LL [facility] CALL/ READ BACK CALLED TO [facility] BY: OSMANI [facility] DATE/TIME 12/26/19 @ 26135 [facility] Chloride [Moles/volume] in Serum or Plasma 82 mEq/L 98 - 107 L [facility] Carbon dioxide, total [Moles/volume] in Serum or Plasma 28 MEQ/L 22 - 30 [facility] Glucose [Mass/volume] in Serum or Plasma 120 MG/DL 65 - 110 H [facility] BUN 19 MG/DL 7 - 21 [facility] al Creatinine [Mass/volume] in Serum or Plasma 0.9 MG/DL 0.7 - 1.5 [facility] BUN/CREAT 21 8 - 27 [facility] al Protein [Mass/volume] in Serum or Plasma 8.1 G/DL 6.3 - 8.2 [facility] Albumin [Mass/volume] in Serum or Plasma 5.5 G/DL 3.9 - 5.0 H [facility] Globulin [Mass/volume] in Serum by calculation 2.6 GM/DL 2.4 - 3.2 [facility] A/G RATIO 2.1 0.8 - 2.0 H [facility] Calcium [Mass/volume] in Serum or Plasma 10.6 MG/DL 8.4 - 10.2 H [facility] Bilirubin.total [Mass/volume] in Serum or Plasma 1.6 MG/DL 0.2 - 1.3 H [facility] Alkaline phosphatase [Enzymatic activity/volume] in Serum or Plasma 68 U/L 38 - 126 [facility] Aspartate aminotransferase [Enzymatic activity/volume] in Serum or Plasma 19 U/L 5 - 40 [facility] Alanine aminotransferase [Enzymatic activity/volume] in Seru m or Plasma 19 U/L 7 - 56 [facility] Anion gap 3 in Serum or Plasma 24.0 mmol/L 8.0 - 16.0 H [facility] AGE 24 yrs [facility] al NON-AA GFR >60 mL/min [facility] ital AFR AMER GFR >60 mL/min [facility] Male GFR In terprentation 20-49 [...] >32 mL/min Normal ID Date Data Source [id number] 12/26/2019 11:49:00 AM EDT [facility] Name Value Range Interpretation Code Description Data Michelle rce(s) Supporting Document(s) CBC W/AUTOMATED DIFF [facility] COMPLETE BLOOD COUNT Leukocytes [#/volume] in Blood by Automated count 14.9 10^3/uL 4.2 - 11.0 H [facility] Erythrocytes [#/volume] in Blood by Automated count 5.08 10^6/uL 4. 20 - 5.40 [facility] Hemoglobin [Mass/volume] in Blood 15.8 g/dL 12.0 - 16.0 [facility] Hematocrit [Volume Fraction] of Blood by Automated count 45.4 % 3 7.0 - 47.0 [facility] Erythrocyte mean corpuscular volume [Entitic volume] by Auto mated count 89.4 fL 81.0 - 101 [facility] Erythrocyte mean corpuscular hemoglobin [Entitic mass] by Automated count 31.1 pg 27.0 - 34.0 [facility] Erythrocyte mean corpuscular hemoglobin concentration [Mass/volume] by Automated count 34.8 g/dL 31.0 - 36.0 [facility] Erythrocyte distribution width [Ratio] by Automated count 12.2 % 11.5 - 14.5 [facility] Platelets [#/volume] in Blood by Automated count 392 10^3/uL 150 - 45 0 [facility] Platelet mean volume [Entitic volume] in Blood by Automated count 9.8 fL 7.4 - 10.4 [facility] Neutrophils/100 leukocytes in Blood by Automated count 81.1 % 37. 0 - 80.0 H [facility] Lymphocytes/100 leukocytes in Blood by Manual count 10.7 % 25.0 - 40.0 L [facility] Monocytes/100 leukocytes in Blood by Automated count 7.6 % 3.0 - 8.0 [facility] Eosinophils/100 leukocytes in Blood by Automated count 0.1 % 0.0 - 7.0 [facility] Basophils/100 leukocytes in Blood by Automated count 0.1 % 0.0 - 2.5 [facility] %IG 0.4 % 0.0 - 0.0 H [facility] al %NRBC 0.0 % 0.0 - 0.0 [facility] al Neutrophils [#/volume] in Blood by Automated count 12.10 10^3/uL 2. 00 - 6.90 H [facility] Lymphocytes [#/volume] in Blood by Automated count 1.59 10^3/uL 0.60 - 3.40 [facility] Monocytes [#/volume] in Blood by Automated count 1.13 10^3/uL 0.00 - 0.90 H [facility] Eosinophils [#/volume] in Blood by Automated count 0.01 10^3/uL 0.00 - 0.70 [facility] Basophils [#/volume] in Blood by Automated count 0.02 10^3/uL 0.00 - 0.20 [facility] #IG 0.06 10^3/uL 0.00 - 0.10 [facility] #NRBC 0.00 10^3/uL 0.00 - 0.00 [facility] ospital MANUAL DIFF SEE BELOW [facility] Segmented neutrophils/100 leukocytes in Blood by Manual count 76 % 37 - 80 [facility] %LYMPH 16 % 25 - 40 L [facility] al %MONO 8 % 3 - 8 [facility] al RBC MORPH MORPH IS NORMAL [facility] ID Date Data Source [id number] 12/26/2019 11:48:00 AM EDT [facility] Name Value Range Interpretation Code Description Data Michelle rce(s) Supporting Document(s) TROPONIN T <0.01 NG/ML 0.00 - 0.10 [facility]ital TROPONIN T0.1 ng/ml Recommended as the c linical threshold value forTroponin T. ID Date Data Source [id number] 12/12/2019 12:03:00 PM EDT [facility] [address] [place] [address] PHONE: [phone] FAX: [phone] Name .................. : RITTER NATALIYA Martinez Acct Number.................. : [id number] ROOM. ................. : 100 MR Number ................... : [id number] Stay type ............. : O/P Discharge Date......... ... : Admit Date ......... : 12/09/19 Admit Phys .................... : MULLER HARD Date of ....... : 1995 Family Phys ................... : COLLAZO UNI5 Phone .......... ........ : [phone] Age ................................ : 24 Film# .................. .:[id number] Sex ................................. : F Unsigned transcriptions are preliminary reports and do not represent a medical or legal document HEPATIC [id number] COMPLETE:12/09/19 14:38 [facility] [id number] Reason(s): Nausea w Vomiting HEPATIC ULTRASOUND: COMPARISON: [...] rce(s) Supporting Document(s) ID Date Data Source [id number] 12/12/2019 10:57:00 [place] [address] PHONE: [phone] FAX: [phone] Name .................. : RITTER WHITLOCKELNiki Juan Acct Number.................. : [id number] ROOM. ................. : 100-1 MR Number ................... : [id number] Stay type ............. : O/P Discharge Date......... ... : Admit Date ......... : 12/09/19 Admit Phys .................... : RENZO HAM Date of ....... : 1995 Family Phys ................... : COLLAZO SCOT Phone .................. : [phone] Age ................................ : 24 Film# .................. .:[id number] Sex ................................. : F Unsigned transcriptions are preliminary reports and do not represent a medical or legal document CT ABD & PELVIS W/ IV ONLY [id number] COMPLETE:12/09/19 16:05 RLB [id number] Reason(s): Abdominal Pain CT OF THE ABDOMEN [...] lacey: No adenopathy. Page 1 of 2 [facility] [address] [place] [address] PHONE: [phone] FAX: [phone] Name .................. : RITTER NATALIYA Martinez Acct Number.................. : [id number] ROOM. ................. : [address] [place] [address] Number ................... : [id number] Stay type ............. : O/P Discharge Date......... ... : Admit Date ......... : 12/09/19 Admit Phys .................... : MULLER HARD Date of ....... : 1995 Family Phys ................... : COLLAZO MARIBEL Phone .................. : [phone] Age ................................ : 24 Film# .................. .:[id number] Sex ................................. : F Unsigned transcriptions are preliminary reports and do not represent a medical or legal document CT ABD & PELVIS W/ IV ONLY [id number] COMPLETE:12/09/19 16:05 RLB [id number] Reason(s): Abdominal Pain Vessels: Normal abdominal aorta [...] rce(s) Supporting Document(s) ID Date Data Source [id number] 12/12/2019 10:55:00 AM EDT [facility] [address] [place] [address] PHONE: [phone] FAX: [phone] Name .................. : RITTER NATALIYA Martinez Acct Number.................. : [id number] ROOM. ................. : 100-1 MR Number ................... : [id number] Stay type ............. : O/P Discharge Date......... ... : Admit Date ......... : 12/09/19 Admit Phys .................... : MULLER HARD Date of ....... : 1995 Family Phys ................... : COLLAZO SCOT Phone .......... ........ : [phone] Age ................................ : 24 Film# .................. .:[id number] Sex ................................. : F Unsigned transcriptions are preliminary reports and do not represent a medical or legal document CHEST 2 VIEWS [id number] COMPLETE:12/09/19 16:01 ARS [id number] Reason(s): upper abd pain CHEST X-RAY: PA [...] rce(s) Supporting Document(s) ID Date Data Source [id number] 12/11/2019 03:11:00 PM EDT [facility] Name Value Range Interpretation Code Description Data Michelle rce(s) Supporting Document(s) Potassium [Moles/volume] in Serum or Plasma 3.5 mEq/L 3.6 - 5.0 L [facility] ID Date Data Source [id number] 12/11/2019 11:52:00 AM EDT [facility] Value Range Interpretation Code Description Data Michelle rce(s) Supporting Document(s) Potassium [Moles/volume] in Serum or Plasma 3.3 mEq/L 3.6 - 5.0 L [facility] ID Date Data Source [id number] 12/11/2019 10:11:00 AM EDT [facility] Name Value Range Interpretation Code Description Data Michelle rce(s) Supporting Document(s) Folate [Mass/volume] in Serum or Plasma 11.2 NG/ML 5.0 - 27.2 [facility] ID Date Data Source [id number] 12/11/2019 08:22:00 AM EDT [facility] Value Range Interpretation Code Description Data Michelle rce(s) Supporting Document(s) Magnesium [Mass/volume] in Serum or Plasma 1.7 MG/DL 1.7 - 2.2 [facility] ID Date Data Source [id number] 12/11/2019 07:46:00 AM EDT [facility] Name Value Range Interpretation Code Description Data Michelle rce(s) Supporting Document(s) CBC W/AUTOMATED DIFF [facility] COMPLETE BLOOD COUNT Leukocytes [#/volume] in Blood by Automated count 6.2 10^3/uL 4.2 - 1 1.0 [facility] Erythrocytes [#/volume] in Blood by Automated count 3.94 10^6/uL 4. 20 - 5.40 L [facility] Hemoglobin [Mass/volume] in Blood 12.3 g/dL 12.0 - 16.0 [facility] Hematocrit [Volume Fraction] of Blood by Automated count 36.9 % 3 7.0 - 47.0 L [facility] Erythrocyte mean corpuscular volume [Entitic volume] by Auto mated count 93.7 fL 81.0 - 101 [facility] Erythrocyte mean corpuscular hemoglobin [Entitic mass] by Automated count 31.2 pg 27.0 - 34.0 [facility] Erythrocyte mean corpuscular hemoglobin concentration [Mass/volume] by Automated count 33.3 g/dL 31.0 - 36.0 [facility] Erythrocyte distribution width [Ratio] by Automated count 12.4 % 11.5 - 14.5 [facility] Platelets [#/volume] in Blood by Automated count 178 10^3/uL 150 - 45 0 [facility] Platelet mean volume [Entitic volume] in Blood by Automated count 10.0 fL 7.4 - 10.4 [facility] Neutrophils/100 leukocytes in Blood by Automated count 54.4 % 37. 0 - 80.0 [facility] Lymphocytes/100 leukocytes in Blood by Manual count 38.0 % 25.0 - 40.0 [facility] Monocytes/100 leukocytes in Blood by Automated count 6.0 % 3.0 - 8.0 [facility] Eosinophils/100 leukocytes in Blood by Automated count 1.0 % 0.0 - 7.0 [facility] Basophils/100 leukocytes in Blood by Automated count 0.3 % 0.0 - 2.5 [facility] %IG 0.3 % 0.0 - 0.0 H [facility] al %NRBC 0.0 % 0.0 - 0.0 [facility] al Neutrophils [#/volume] in Blood by Automated count 3.36 10^3/uL 2.00 - 6.90 [facility] Lymphocytes [#/volume] in Blood by Automated count 2.35 10^3/uL 0.60 - 3.40 [facility] Monocytes [#/volume] in Blood by Automated count 0.37 10^3/uL 0.00 - 0.90 [facility] Eosinophils [#/volume] in Blood by Automated count 0.06 10^3/uL 0.00 - 0.70 [facility] Basophils [#/volume] in Blood by Automated count 0.02 10^3/uL 0.00 - 0.20 [facility] #IG 0.02 10^3/uL 0.00 - 0.10 [facility] #NRBC 0.00 10^3/uL 0.00 - 0.00 [facility] MANUAL DIFF NOT INDICATED [facility] RBC MORPH NOT INDICATED [facility] spital ID Date Data Source [id number] 12/11/2019 07:44:00 AM EDT [facility] Name Value Range Interpretation Code Description Data Michelle rce(s) Supporting Document(s) COMPREHENSIVE METABOLIC PANEL [facility] COMPREHENSIVE METABOLIC PANEL Sodium [Moles/volume] in Serum or Plasma 140 mEq/L 134 - 153 [facility] Potassium [Moles/volume] in Serum or Plasma 3.0 mEq/L 3.6 - 5.0 L [facility] Chloride [Moles/volume] in Serum or Plasma 105 mEq/L 98 - 107 [facility] Carbon dioxide, total [Moles/volume] in Serum or Plasma 26 MEQ/L 22 - 30 [facility] Glucose [Mass/volume] in Serum or Plasma 89 MG/DL 65 - 110 [facility] BUN 6 MG/DL 7 - 21 L [facility] Creatinine [Mass/volume] in Serum or Plasma 0.4 MG/DL 0.7 - 1.5 L [facility] BUN/CREAT 15 8 - 27 [facility] al Protein [Mass/volume] in Serum or Plasma 5.9 G/DL 6.3 - 8.2 L [facility] Albumin [Mass/volume] in Serum or Plasma 4.0 G/DL 3.9 - 5.0 [facility] Globulin [Mass/volume] in Serum by calculation 1.9 GM/DL 2.4 - 3.2 L [facility] A/G RATIO 2.1 0.8 - 2.0 H [facility] Calcium [Mass/volume] in Serum or Plasma 8.8 MG/DL 8.4 - 10.2 [facility] Bilirubin.total [Mass/volume] in Serum or Plasma 1.1 MG/DL 0.2 - 1.3 [facility] Alkaline phosphatase [Enzymatic activity/volume] in Serum or Plasma 52 U/L 38 - 126 [facility] Aspartate aminotransferase [Enzymatic activity/volume] in Serum or Plasma 31 U/L 5 - 40 [facility] Alanine aminotransferase [Enzymatic activity/volume] in Seru m or Plasma 48 U/L 7 - 56 [facility] Anion gap 3 in Serum or Plasma 9.0 mmol/L 8.0 - 16.0 [facility] AGE 24 yrs [facility] NON-AA GFR >60 mL/min [facility] ital AFR AMER GFR >60 mL/min [facility] Male GFR In terprentation 20-49 [...] >32 mL/min Normal ID Date Data Source [id number] 12/09/2019 12:55:00 PM EDT [facility] 1 OrderSheet [facility] Emergency Department [address] [place] [address] Phone #: ext- [phone] 12/09/2019 12:30 Patient: [...] Patel RN P.A.-C;Troponin-T STAT 13:12/09/2019 14:04 Bernard aPtel RN P.A.-C;Urine Drug Screen STAT 13:12/09/2019 13:42 Imtiaz Alvarez R.N. P.A.- C;Monospot STAT 13:55 12/09/2019 14:04 Bernard Patel RN 2 OrderSheet [facility] Emergency Department [address] [place] [address] Phone #: ext- [phone] 12/09/2019 12:30 -------- Patient: NATALIYA BEASLEY Sex: [...] Petermeq/100mL Imtiaz Patel RN P.A.-C; 3 OrderSheet [facility] Emergency Department [address] [place] [address] Phone #: ext- [phone] 12/09/2019 12:30 Patient: NATALIYA BEASLEY Sex: F : 1995 Age: 24yBenadryl 25 mg IVP 15:33 12/09/2019 15:39 Piute,X1 dose: 25 mg Imtiaz Galvan R.N.(NOW x1) P.A.-C;GENERAL ORDERSOrder Description Priority Entered Acknowledged InitialedAccucheck 13:12/09/2019 14:22 Bernard Patel RN P.A.-C;NPO 13:12/09/2019 14:04 Bernard Patel RN P.A.-C;Saline Lock 13:12/09/2019 14:04 Bernard Patel RN P.A.-C;EKG 13:12/09/2019 14:04 Bernard Patel RN P.A.-C;Yard Assistant 13:12/09/2019 14:04 Bernard(continuous) Imtiaz Patel RN P.A.-C;Pulse oximeter 13:12/09/2019 14:04 Bernard(Continuous) Imtiaz Patel RN P.A.-C;[Electronically signed by Bernard Patel RN (17:12/09/2019)][Electronically signed by Imtiaz EspañaASveta-Lester (11:12/10/2019)][Electronically locked by Bernard Patel RN (17:12/09/2019)] Name Value Range Interpretation Code Description Data Michelle rce(s) Supporting Document(s) ID Date Data Source [id number] 12/09/2019 12:55:00 PM EDT [facility] 1 Medication Reconciliation Report [facility] Emergency Department [address] [place] [address] Phone #: ext- [phone] 12/09/2019 12:30 Patient: [...] rce(s) Supporting Document(s) ID Date Data Source [id number] 12/09/2019 12:55:00 PM EDT [facility] 1 Medication Administration Record [facility] Emergency Department [address] [place] [address] Phone #: ext- [phone] 12/09/2019 12:30 Patient: NATALIYA BEASLEY Sex: F : 1995 Age: 24yWeight: 58.9 kgHeight/Length: 62 inBMI: 23.8ALLERGIES: None, Sulfa Antibiotics Date/Time Medication Administered Medication OrderedStart IV NS IV NS : Bolus 500 mL, then 97539:06 12/09/2019 Dose: IV Fluids mL/Lissette Patel RN [...] 100 mL bag14:56 12/09/2019 Site: #1 [facility] Dylon Macias PEPCID [IVPB] Pepcid IVPB 20 mg/50mL (NOW14:58 12/09/2019 Dose: 20 mg IVPB x1, Infuse over 30 minutes.)Bernard Patel RN Rate: 100 mL/hr over 30 minute(s)---- Dispensed: 50 mL bagStop Site: #1 right upper arm15:41 12/09/2019Jorgito Martinez KCL LIQUID PO KCl Liquid PO 40 meq15:01 12/09/2019 Dose: 40 meq Syrup/Liquid Dylon Kaplan KCL [IVPB] KCl IVPB 10 meq/650eA86:02 12/09/2019 Dose: 10 meq IVCarlyle Patel RN Rate: 100 mL/hr over 1 hour(s)---- Dispensed: 100 mL bagStop Site: #1 right upper arm17:02 12/09/2019Jorgito Martinez BENADRYL [IVP] (DIPHENHYDRAMINE Benadryl 25 mg IVP X1 dose: 2515:25 12/09/2019 HCL) mg (NOW x1)Mandy Alvarez R.N. Dose: 25 mg IVP In: NS 10 mL Site: #1 right upper arm 2 Medication Administration Record [facility] Emergency Department [address] [place] [address] Phone #: ext- [phone] 12/09/2019 12:30 Patient: NATALIYA BEASLEY Sex: F : 1995 Age: 24y Name Value Range Interpretation Code Description Data Michelle rce(s) Supporting Document(s) ID Date Data Source [id number] 12/09/2019 12:55:00 PM EDT [facility] 1 General Instructions [facility] Emergency Department [address] [place] [address] Phone #: ext- [phone] 12/09/2019 12:30 Patient: [...] or muscle cramps Dizziness 2 General Instructions [facility] Emergency Department [address] [place] [address] Phone #: ext- [phone] 12/09/2019 12:30 Patient: NATALIYA BEASLEY Sex: F : 1995 Age: 24yCall 911Call 911 if any of the following occur: Irregular heartbeat, extra beats, or very fast heart rate Loss of [facility] sciousness [phone] [place] [address] 71082. All rights reserved. This information is not intended as asubstitute for professional medical care. Always follow your healthcare professional's instructions. You have been given the following additional information: Hypokalemia(Electronically signed by Imtiaz España P.A.-C 12/10/2019 11:00) Name Value Range Interpretation Code Description Data Michelle rce(s) Supporting Document(s) ID Date Data Source [id number] 12/09/2019 12:55:00 PM EDT [facility] 1 Clinical Report - Nurses [facility] Emergency Department [address] [place] [address] Phone #: ext- [phone] 12/09/2019 12:30 Patient: NATALIYA BEASLEY Sex: F : 1995 Age: 24yTRIAGEArrived by private vehicle. Historian: patient. Accompanied by family. ( here on Thursday for vomitand it continues today).Acuity: LEVEL 3.Chief Complaint: ABDOMINAL PAIN, NAUSEA and VOMITING.Alert.Onset. (thursday). The patient has had nausea, vomiting and abdominal pain. The pain is described aslocated in the upper abdomen.Treatment COMMODITIES MANAGER:None.SEPSIS SCREEN: SIRS Screen negative. Sepsis Screen negative. [...] Kemp R.N. 2 Clinical Report - Nurses [facility] Emergency Department [address] [place] [address] Phone #: ext- [phone] 12/09/2019 12:30 Patient: [...] Kemp R.N. 3 Clinical Report - Nurses [facility] Emergency Department [address] [place] [address] Phone #: ext- [phone] 12/09/2019 12:30 Patient: NATALIYA BEASLEY Sex: F : 1995 Age: 24y13:13 12/09/2019 Site #1 started via IV in the right upper arm with an 20g angiocath, with aseptictechnique and good blood return; one attempt. Saline lock flushed with 10 mL saline. --13:13 12/09/19DAISY Martinezatiscott transported to sonogram by wheelchair with research technician. --13:38 12/09/19 DAISY Martinezatiscott returned from sonogram by wheelchair with research technician. --13:58 12/09/19 Bernard Patel RN14:12/09/2019 Started [...] to the PA. --14:13 12/09/19Mando ibrahim ER Administrative Services Director( FSBS 107). --14:20 12/09/19 Bernard Patel RN14:12/09/2019 [...] --14:56 12/09/19 4 Clinical Report - Nurses [facility] Emergency Department [address] [place] [address] Phone #: ext- [phone] 12/09/2019 12:30 Patient: [...] to radiology and CT by wheelchair with research technician. --15:47 12/09/19 Bernard Patel RN16:02 12/09/2019 [...] EASTON Thomas 5 Clinical Report - Nurses [facility] Emergency Department [address] [place] [address] Phone #: ext- [phone] 12/09/2019 12:30 Patient: NATALIYA BEASLEY Sex: F : 1995 Age: 24y Patient returned from radiology and CT by wheelchair with research technician. --16:02 12/09/19 Bernard Patel RN 16:05 [...] rce(s) Supporting Document(s) ID Date Data Source [id number] 12/09/2019 12:55:00 PM EDT [facility] 1 Clinical Report - Physicians/Mid Levels [facility] Emergency Department [address] [place] [address] Phone #: ext- [phone] 12/09/2019 12:30 Patient: [...] no improvement of N/V. Seen here in [facility] 2 days ago w ith same [...] Oral. 2 Clinical Report - Physicians/Mid Levels [facility] Emergency Department [address] [place] [address] Phone #: ext- [phone] 12/09/2019 12:30 Patient: [...] radiologist. 3 Clinical Report - Physicians/Mid Levels [facility] Emergency Department [address] [place] [address] Phone #: ext- [phone] 12/09/2019 12:30 Patient: [...] IV? O2? Oxygen?(No) Room: [facility] w Diff: (ANGELY: 12/09/2019 14:15) [...] BACK CHAYA MCCORMACK ER BY: LINDA DATE/TIME [id number] Clinical Report - Physicians/Mid Levels [facility] Emergency Department [address] [place] [address] Phone #: ext- [phone] 12/09/2019 12:30 Patient: [...] Male GFR Interprentation 20-49 yrs >60 mL/min Cqnkln44-65 yrs >56 mL/min Normal 60-69 yrs >49 mL/min Normal 70-79yrs>42 mL/min Normal 80 and above >35 mL/min Normal Female GFRInterpretation 20-39 yrs >60 mL/min Normal 40-49 yrs >58 mL/minNormal 50-59 yrs >51 mL/min Normal 60-69 yrs >45 mL/min Lguqkb64- 79 yrs >39 mL/min Normal 80 and above >32 mL/min NormalLipase: (ANGELY: 12/09/2019 14:15) ( [facility] 12/09/2019 14:51) Final results Test Result Flag Units (Reference) LIPASE 12 L U/L (13 - 60)PT/INR: (ANGELY: 12/09/2019 14:15) ( [facility] 12/09/2019 14:38) Final results Test Result Flag Units (Reference) PROTIME 12.4 SECONDS (11.0 - 15.5) INR 0.91 L (0.93 - 1.23) \\BLDo\\INR INTERPRETATION\\BLDx\\ Therapeutic range for Coumadin andrelated oral anticoagulants. -International Normalized Ratio (INR): 2.0 - 3.0 for VenousThrombosis, Pulmonary Embolus, Tissue heart valves, Acute OK, Atrial Fibrillation, Valvular heartdisease and recurrent Systemic [...] NEGATIVE (NORMAL: NEGAT { KIT LOT # [id number] ){ KIT EXP DATE02.27.21 ){ PROCEDURAL CONTROL VALID)Troponin-T: (ANGELY: 12/09/2019 14:15) ( MsgRcvd 12/09/2019 14:51) Final results Test Result Flag Units (Reference) 5 Clinical Report - Physicians/Mid Levels [facility] Emergency Department [address] [place] [address] Phone #: ext- [phone] 12/09/2019 12:30 Patient: [...] better. 6 Clinical Report - Physicians/Mid Levels [facility] Emergency Department [address] [place] [address] Phone #: ext- [phone] 12/09/2019 12:30 Patient: NATALIYA BEASLEY Sex: F [...] rce(s) Supporting Document(s) ID Date Data Source [id number] 12/10/2019 08:37:00 AM EDT [facility] Name Value Range Interpretation Code Description Data Michelle rce(s) Supporting Document(s) CBC W/AUTOMATED DIFF [facility] COMPLETE BLOOD COUNT Leukocytes [#/volume] in Blood by Automated count 6.9 10^3/uL 4.2 - 1 1.0 [facility] Erythrocytes [#/volume] in Blood by Automated count 4.03 10^6/uL 4. 20 - 5.40 L [facility] Hemoglobin [Mass/volume] in Blood 12.5 g/dL 12.0 - 16.0 [facility] Hematocrit [Volume Fraction] of Blood by Automated count 37.7 % 3 7.0 - 47.0 [facility] Erythrocyte mean corpuscular volume [Entitic volume] by Auto mated count 93.5 fL 81.0 - 101 [facility] Erythrocyte mean corpuscular hemoglobin [Entitic mass] by Automated count 31.0 pg 27.0 - 34.0 [facility] Erythrocyte mean corpuscular hemoglobin concentration [Mass/volume] by Automated count 33.2 g/dL 31.0 - 36.0 [facility] Erythrocyte distribution width [Ratio] by Automated count 12.9 % 11.5 - 14.5 [facility] Platelets [#/volume] in Blood by Automated count 185 10^3/uL 150 - 45 0 [facility] Platelet mean volume [Entitic volume] in Blood by Automated count 10.1 fL 7.4 - 10.4 [facility] Neutrophils/100 leukocytes in Blood by Automated count 66.1 % 37. 0 - 80.0 [facility] Lymphocytes/100 leukocytes in Blood by Manual count 25.3 % 25.0 - 40.0 [facility] Monocytes/100 leukocytes in Blood by Automated count 7.4 % 3.0 - 8.0 [facility] Eosinophils/100 leukocytes in Blood by Automated count 0.3 % 0.0 - 7.0 [facility] Basophils/100 leukocytes in Blood by Automated count 0.6 % 0.0 - 2.5 [facility] %IG 0.3 % 0.0 - 0.0 [facility] %NRBC 0.0 % 0.0 - 0.0 [facility] al Neutrophils [#/volume] in Blood by Automated count 4.55 10^3/uL 2.00 - 6.90 [facility] Lymphocytes [#/volume] in Blood by Automated count 1.74 10^3/uL 0.60 - 3.40 [facility] Monocytes [#/volume] in Blood by Automated count 0.51 10^3/uL 0.00 - 0.90 [facility] Eosinophils [#/volume] in Blood by Automated count 0.02 10^3/uL 0.00 - 0.70 [facility] Basophils [#/volume] in Blood by Automated count 0.04 10^3/uL 0.00 - 0.20 [facility] #IG 0.02 10^3/uL 0.00 - 0.10 [facility] #NRBC 0.00 10^3/uL 0.00 - 0.00 [facility] MANUAL DIFF NOT INDICATED [facility] RBC MORPH NOT INDICATED [facility] ID Date Data Source [id number] 12/10/2019 08:35:00 AM EDT [facility] Name Value Range Interpretation Code Description Data Michelle rce(s) Supporting Document(s) COMPREHENSIVE METABOLIC PANEL [facility] COMPREHENSIVE METABOLIC PANEL Sodium [Moles/volume] in Serum or Plasma 141 mEq/L 134 - 153 [facility] Potassium [Moles/volume] in Serum or Plasma 3.6 mEq/L 3.6 - 5.0 [facility] Chloride [Moles/volume] in Serum or Plasma 107 mEq/L 98 - 107 [facility] Carbon dioxide, total [Moles/volume] in Serum or Plasma 27 MEQ/L 22 - 30 [facility] Glucose [Mass/volume] in Serum or Plasma 89 MG/DL 65 - 110 [facility] BUN 10 MG/DL 7 - 21 [facility] al Creatinine [Mass/volume] in Serum or Plasma 0.4 MG/DL 0.7 - 1.5 L [facility] BUN/CREAT 25 8 - 27 [facility] al Protein [Mass/volume] in Serum or Plasma 6.2 G/DL 6.3 - 8.2 L [facility] Albumin [Mass/volume] in Serum or Plasma 4.3 G/DL 3.9 - 5.0 [facility] Globulin [Mass/volume] in Serum by calculation 1.9 GM/DL 2.4 - 3.2 L [facility] A/G RATIO 2.3 0.8 - 2.0 H [facility] Calcium [Mass/volume] in Serum or Plasma 9.0 MG/DL 8.4 - 10.2 [facility] Bilirubin.total [Mass/volume] in Serum or Plasma 0.9 MG/DL 0.2 - 1.3 [facility] Alkaline phosphatase [Enzymatic activity/volume] in Serum or Plasma 52 U/L 38 - 126 [facility] Aspartate aminotransferase [Enzymatic activity/volume] in Serum or Plasma 27 U/L 5 - 40 [facility] Alanine aminotransferase [Enzymatic activity/volume] in Seru m or Plasma 38 U/L 7 - 56 [facility] Anion gap 3 in Serum or Plasma 7.0 mmol/L 8.0 - 16.0 L [facility] AGE 24 yrs [facility] NON-AA GFR >60 mL/min [facility] ital AFR AMER GFR >60 mL/min [facility] Male GFR In terprentation 20-49 [...] >32 mL/min Normal ID Date Data Source [id number] 12/10/2019 11:51:00 AM EDT [facility] Name Value Range Interpretation Code Description Data Michelle rce(s) Supporting Document(s) Magnesium [Mass/volume] in Serum or Plasma 1.9 MG/DL 1.7 - 2.2 [facility] ID Date Data Source [id number] 12/09/2019 10:55:00 [place] [address] PHONE: [phone] FAX: [phone] Name ..............: RITTER NATALIYA Martinez Acct Number ...........................: [id number] ROOM. ............: [facility] Number ............................: [id number] Stay type.........: O/P Discharge Date...............: Admit Date .....: 12/09/19 Admit Phys .............................: MULLER HARD Date of ..: 1995 Family Phys ...........................: COLLAZO SCOT Phone..............: [phone] Age .................................:24 Film# ...............:[id number] Sex.................................:F Unsigned transcriptions are preliminary reports and do not represent a medical or legal document EKG [id number] COMPLETE:12/09/19 16:25 CJM [id number] Please See Scanned Results. Name Value Range Interpretation Code Description Data Michelle rce(s) Supporting Document(s) ID Date Data Source [id number] 12/09/2019 06:23:00 PM EDT [facility] Name Value Range Interpretation Code Description Data Michelle rce(s) Supporting Document(s) BASIC METABOLIC PANEL [facility] BASIC METABOLIC PANEL Sodium [Moles/volume] in Serum or Plasma 137 mEq/L 134 - 153 [facility] Potassium [Moles/volume] in Serum or Plasma 2.7 mEq/L 3.6 - 5.0 LL [facility] CALL/ READ BACK [facility] BY: LINDA [facility]/TIME [id number] [facility] Chloride [Moles/volume] in Serum or Plasma 99 mEq/L 98 - 107 [facility] Carbon dioxide, total [Moles/volume] in Serum or Plasma 24 MEQ/L 22 - 30 [facility] Glucose [Mass/volume] in Serum or Plasma 96 MG/DL 65 - 110 [facility] BUN 9 MG/DL 7 - 21 [facility] Creatinine [Mass/volume] in Serum or Plasma 0.5 MG/DL 0.7 - 1.5 L [facility] BUN/CREAT 18 8 - 27 [facility] Calcium [Mass/volume] in Serum or Plasma 9.0 MG/DL 8.4 - 10.2 [facility] Anion gap 3 in Serum or Plasma 14.0 mmol/L 8.0 - 16.0 [facility] AGE 24 yrs [facility] A[facility] AMER GFR >60 mL/min [facility] NON-AA GFR >60 mL/min [facility] ital Male GFR Inter prentation 20-49 [...] >32 mL/min Normal ID Date Data Source [id number] 12/09/2019 06:23:00 PM EDT [facility] Name Value Range Interpretation Code Description Data Michelle rce(s) Supporting Document(s) BNP 147 PG/ML 0 - 125 H [facility] ID Date Data Source [id number] 12/09/2019 05:22:00 PM EDT [facility] Name Value Range Interpretation Code Description Data Michelle rce(s) Supporting Document(s) MONO TEST NEGATIVE NORMAL: NEGATIVE [facility] MONO REENTER NEGATIVE NORMAL: NEGATIVE [facility] { KIT LOT # [id number] ){ KIT EXP DATE 04.16.21 ){ PROCEDURAL CONTROL VALID ) ID Date Data Source [id number] 12/09/2019 02:56:00 PM EDT [facility] Name Value Range Interpretation Code Description Data Michelle rce(s) Supporting Document(s) COMPREHENSIVE METABOLIC PANEL [facility] COMPREHENSIVE METABOLIC PANEL Sodium [Moles/volume] in Serum or Plasma 139 mEq/L 134 - 153 [facility] Potassium [Moles/volume] in Serum or Plasma 2.7 mEq/L 3.6 - 5.0 LL [facility] CALL/ READ BACK CHAYA SHOE POLISHER [facility] BY: LINDA [facility] DATE/TIME [id number] [facility] Chloride [Moles/volume] in Serum or Plasma 100 mEq/L 98 - 107 [facility] Carbon dioxide, total [Moles/volume] in Serum or Plasma 24 MEQ/L 22 - 30 [facility] Glucose [Mass/volume] in Serum or Plasma 102 MG/DL 65 - 110 [facility] BUN 11 MG/DL 7 - 21 [facility] Creatinine [Mass/volume] in Serum or Plasma 0.6 MG/DL 0.7 - 1.5 L [facility] BUN/CREAT 18 8 - 27 [facility] Protein [Mass/volume] in Serum or Plasma 7.1 G/DL 6.3 - 8.2 [facility] Albumin [Mass/volume] in Serum or Plasma 4.7 G/DL 3.9 - 5.0 [facility] Globulin [Mass/volume] in Serum by calculation 2.4 GM/DL 2.4 - 3.2 [facility] A/G RATIO 2.0 0.8 - 2.0 [facility] Calcium [Mass/volume] in Serum or Plasma 9.5 MG/DL 8.4 - 10.2 [facility] Bilirubin.total [Mass/volume] in Serum or Plasma 1.0 MG/DL 0.2 - 1.3 [facility] Alkaline phosphatase [Enzymatic activity/volume] in Serum or Plasma 64 U/L 38 - 126 [facility] Aspartate aminotransferase [Enzymatic activity/volume] in Serum or Plasma 23 U/L 5 - 40 [facility] Alanine aminotransferase [Enzymatic activity/volume] in Seru m or Plasma 37 U/L 7 - 56 [facility] Anion gap 3 in Serum or Plasma 15.0 mmol/L 8.0 - 16.0 [facility] AGE 24 yrs [facility] NON-AA GFR >60 mL/min [facility] ital AFR AMER GFR >60 mL/min [facility] Male GFR In terprentation 20-49 [...] >32 mL/min Normal ID Date Data Source [id number] 12/09/2019 02:51:00 PM EDT [facility] Name Value Range Interpretation Code Description Data Michelle rce(s) Supporting Document(s) TROPONIN T <0.01 NG/ML 0.00 - 0.10 [facility] TROPONIN T0.1 ng/ml Recommended as the c linical threshold value forTroponin T. ID Date Data Source [id number] 12/09/2019 02:51:00 PM EDT [facility] Name Value Range Interpretation Code Description Data Michelle rce(s) Supporting Document(s) Magnesium [Mass/volume] in Serum or Plasma 1.6 MG/DL 1.7 - 2.2 L [facility] ID Date Data Source [id number] 12/09/2019 02:51:00 PM T [facility] Name Value Range Interpretation Code Description Data Michelle rce(s) Supporting Document(s) Lipase [Enzymatic activity/volume] in Serum or Plasma 12 U/L 13 - 60 L [facility] ID Date Data Source [id number] 12/09/2019 02:42:00 PM EDT [facility] Name Value Range Interpretation Code Description Data Michelle rce(s) Supporting Document(s) HCG SERUM QUAL NEGATIVE NORMAL: NEGATIVE [facility] HCG SERUM QL REENTER NEGATIVE NORMAL: NEGATIVE [facility] { KIT LOT # [id number] ){ KIT EXP DATE 02.27.21 ){ PROCEDURAL CONTROL VALID ) ID Date Data Source [id number] 12/09/2019 02:38:00 PM EDT [facility] Name Value Range Interpretation Code Description Data Michelle rce(s) Supporting Document(s) Prothrombin time (PT) 12.4 SECONDS 11.0 - 15.5 [facility] INR in Platelet poor plasma by Coagulation assay 0.91 0.93 - 1. 23 L [facility] \\BLDo\\INR INTERPRETATION\\BLDx\\ Therapeutic range for Coumadin and related oral anticoagulants. - International Normalized Ratio (INR): 2.0 - 3.0 for Venous Thrombosis, Pulmonary Embolus, Tissue heart valves, Acute OK, Atrial Fibrillation, Valvular heart disease and recurrent Systemic Embolism. -International Normalized Ratio (INR): 2.5 - 3.5 for Mechanical Prosthetic valve. ID Date Data Source [id number] 12/09/2019 02:25:00 PM EDT [facility] Name Value Range Interpretation Code Description Data Michelle rce(s) Supporting Document(s) CBC W/AUTOMATED DIFF [facility] COMPLETE BLOOD COUNT Leukocytes [#/volume] in Blood by Automated count 9.9 10^3/uL 4.2 - 1 1.0 [facility] Erythrocytes [#/volume] in Blood by Automated count 4.28 10^6/uL 4. 20 - 5.40 [facility] Hemoglobin [Mass/volume] in Blood 13.3 g/dL 12.0 - 16.0 [facility] Hematocrit [Volume Fraction] of Blood by Automated count 38.8 % 3 7.0 - 47.0 [facility] Erythrocyte mean corpuscular volume [Entitic volume] by Auto mated count 90.7 fL 81.0 - 101 [facility] Erythrocyte mean corpuscular hemoglobin [Entitic mass] by Automated count 31.1 pg 27.0 - 34.0 [facility] Erythrocyte mean corpuscular hemoglobin concentration [Mass/volume] by Automated count 34.3 g/dL 31.0 - 36.0 [facility] Erythrocyte distribution width [Ratio] by Automated count 12.7 % 11.5 - 14.5 [facility] Platelets [#/volume] in Blood by Automated count 282 10^3/uL 150 - 45 0 [facility] Platelet mean volume [Entitic volume] in Blood by Automated count 9.3 fL 7.4 - 10.4 [facility] Neutrophils/100 leukocytes in Blood by Automated count 77.7 % 37. 0 - 80.0 [facility] Lymphocytes/100 leukocytes in Blood by Manual count 15.6 % 25.0 - 40.0 L [facility] Monocytes/100 leukocytes in Blood by Automated count 6.2 % 3.0 - 8.0 [facility] Eosinophils/100 leukocytes in Blood by Automated count 0.0 % 0.0 - 7.0 [facility] Basophils/100 leukocytes in Blood by Automated count 0.2 % 0.0 - 2.5 [facility] %IG 0.3 % 0.0 - 0.0 H [facility] %NRBC 0.0 % 0.0 - 0.0 [facility] Neutrophils [#/volume] in Blood by Automated count 7.68 10^3/uL 2.00 - 6.90 H [facility] Lymphocytes [#/volume] in Blood by Automated count 1.54 10^3/uL 0.60 - 3.40 [facility] Monocytes [#/volume] in Blood by Automated count 0.61 10^3/uL 0.00 - 0.90 [facility] Eosinophils [#/volume] in Blood by Automated count 0.00 10^3/uL 0.00 - 0.70 [facility] Basophils [#/volume] in Blood by Automated count 0.02 10^3/uL 0.00 - 0.20 [facility] #IG 0.03 10^3/uL 0.00 - 0.10 [facility] #NRBC 0.00 10^3/uL 0.00 - 0.00 [facility] MANUAL DIFF NOT INDICATED [facility] RBC MORPH NOT INDICATED [facility] spital ID Date Data Source [id number] 12/09/2019 04:25:00 PM EDT [facility] Name Value Range Interpretation Code Description Data Michelle rce(s) Supporting Document(s) DRUG SCREEN URINE [facility] URINE DRUG SCREEN Amphetamine [Presence] in Urine by Screen method NEGATIVE NORMAL: N EGATIVE [facility] BARBITURATES NEGATIVE NORMAL: NEGATIVE [facility] BENZO NEGATIVE NORMAL: NEGATIVE [facility] COCAINE NEGATIVE NORMAL: NEGATIVE [facility] Tetrahydrocannabinol [Presence] in Urine PRESUMP POS NORMAL: NEGATIVE [facility] OPIATES NEGATIVE NORMAL: NEGATIVE [facility] Phencyclidine [Presence] in Urine by Screen method NEGATIVE NOR MAL: NEGATIVE [facility] \\BLDo\\URINE DRUG SCR EEN INTERPRETATION\\BLDx\\ THE CUTOFFF LEVELS FOR DETECTION ARE FOLLOWS: AMPHETAMINES 1000 ng/ml BARBITUARATES 200 ng/ml BENZODIAZEPINES 100 ng/ml THC 50 ng/ml PHENCYCLIDINE 25 ng/ml OPIATES 300 ng/ml COCAINE 300 ng/ml ALL POSITIVES ARE CONSIDERED PRESUMPTIVE POSITIVE CONFIRMATION WILL BE PERFORMED AT PHYSICIAN REQUEST. ID Date Data Source [id number] 12/09/2019 01:34:00 PM EDT [facility] Name Value Range Interpretation Code Description Data Michelle rce(s) Supporting Document(s) [facility] URINALYS[facility] SOURCE R [facility] COLOR yellow NORMAL: Yellow [facility] CLARITY hazy NORMAL: Clear [facility] [facility] Specific gravity of Urine by Test strip 1.020 1.001 - 1.030 [facility] pH 6 5 - 9 [facility] Glucose [Mass/volume] in Urine by Test strip NORM NORMAL: Negat [facility] Bilirubin.total [Presence] in Urine by Test strip NEG NORMAL: Negative [facility] Ketones [Presence] in Urine by Test strip 15 NORMAL: Negative [facility] Protein [Mass/volume] in Urine by Test strip 30 NORMAL: Negat [facility] Nitrite [Presence] in Urine by Test strip NEG NORMAL: Negative [facility] BLOOD 150 NORMAL: Negative [facility] Leukocyte esterase [Presence] in Urine by Test strip 25 DAYLIN L: Negative [facility] Urobilinogen [Mass/volume] in Urine by Test strip 4 less tito n 1.0 mg/dL [facility] MICROSCOPIC See Below [facility] ital WBC 0 - 1 NORMAL: NONE SEEN [facility] Erythrocytes [#/volume] in Urine by Test strip 0 - 1 NORMAL: NON E SEEN [facility] EPITHELIAL MANY NORMAL: NONE SEEN [facility] Bacteria [Presence] in Urine sediment by Light microscopy 1+ SMALL NORMAL: NONE SEEN [facility] Amorphous sediment [Presence] in Urine sediment by Light chelsey roscopy 3+ NORMAL: NONE SEEN [facility] ID Date Data Source [id number] 12/09/2019 03:59:00 AM EDT [facility] [address] [place] [address] RESPIRATORY CARE REPORT ==== ---------NAME------- NUMBER SEX AGE ADMIT DISC. XRAY# F/C TYPERITTER NATALIYA Martinez [id number] F 24 12/07/19 12/07/19 [id number] [id number] E/R DATE OF : 1995 M/R# [id number] #: [id number] [id number] LOCATION: EMERGENCY DEPT EKG [id number] COMP LETE:12/08/19 07:50 EWW [id number] PHYSICIAN: TANYA JACOBS Name Value Range Interpretation Code Description Data Michelle rce(s) Supporting Document(s) ID Date Data Source [id number] 12/07/2019 06:58:00 PM EDT [facility] 1 OrderSheet [facility] Emergency Department [address] [place] [address] Phone #: ext- [phone] 12/07/2019 18:51 Patient: [...] Description Priority Entered Acknowledged Initialed 2 OrderSheet [facility] Emergency Department [address] [place] [address] Phone #: ext- [phone] 12/07/2019 18:51 Patient: [...] 19:55 12/07/2019 20:17 Geronimo,mg/50mL (NOW x1, Leena Martínze R.N.Infuse over 30 M.D.;minutes.)Protonix IVPB 40 19:55 12/07/2019 20:13 Melton,mg with Dextrose Leena Martínez R.N.100 ml spike bag M.D.;(D5W)GENERAL ORDERSOrder Description Priority Entered Acknowledged InitialedNPO 19:12/07/2019 19:13 Alexia Kemp Riccardo R.N. M.D.;Saline Lock 19:10 12/07/2019 19:13 Alexia Kemp Riccardo R.N. M.D.;EKG 19:12/07/2019 19:13 Alexia Kemp Riccardo R.N. M.D.;Yard Assistant 19:12/07/2019 19:13 Alexia Kemp(continuous) Leena Martínez R.N., M.D.;[Electronically signed by Mariano Melton R.N. (21:18 12/07/2019)][Electronically signed by Leena Martínez M.D. (22:34 12/07/2019)][Electronically locked by Mariano Melton R.N. (21:18 12/07/2019)] Name Value Range Interpretation Code Description Data Michelle rce(s) Supporting Document(s) ID Date Data Source [id number] 12/07/2019 06:58:00 PM EDT [facility] 1 Medication Reconciliation Report [facility] Emergency Department [address] [place] [address] Phone #: [phone]- [phone] 12/07/2019 18:51 Patient: NATALIYA BEASLEY Sex: F [...] days -- Dispense 20 tablet.Refills: 0. Substitution permitted.[facility] #[facility] - [address] [place] [address]. .Pepcid 20 mg tablet Take 1 tablet twice a day for 7 days -- Dispense 14 tablet. Refills: 0. Substitutionpermitted.[facility] #50 - [address] [place] [address]. . -- Leena Martínez M.D. Name Value Range Interpretation Code Description Data Michelle rce(s) Supporting Document(s) ID Date Data Source [id number] 12/07/2019 06:58:00 PM EDT [facility] 1 Medication Administration Record [facility] Emergency Department [address] [place] [address] Phone #: ext- [phone] 12/07/2019 18:51 Patient: NATALIYA BEASLEY Sex: F [...] NS IV 1000 mL Bolus: : Bolus [id number] 12/07/2019 Dose: IV Fluids mL (X1)Alexia Kemp [...] 50 mL bagStop Site: #2 left AC21:00 12/07/2019Marinao Melton R.N.Start PEPCID [IVPB] Pepcid IVPB 20 [...] rce(s) Supporting Document(s) ID Date Data Source [id number] 12/07/2019 06:58:00 PM EDT [facility] 1 General Instructions [facility] Emergency Department [address] [place] [address] Phone #: ext- [phone] 12/07/2019 18:51 Patient: [...] Dispense 20 tablet.Refills: 0. Substitution permitted.Pharmacy - [facility] - [address] [facility] ; [place] [address]. .Pepcid 20 mg tablet Take 1 tablet twice a day for 7 days -- Dispense 14 tablet. Refills: 0. Substitutionpermitted.[facility]38 - [address] ; [place] [address]. .Follow-up:Return to the emergency department as needed. [...] to plan of care. 2 General Instructions [facility] Emergency Department [address] [place] [address] Phone #: ext- [phone] 12/07/2019 18:51 Patient: [...] and water are not available, use alcohol-based assistant librarian to keep from spreading the infection to [...] follow the diet below: 3 General Instructions [facility] Emergency Department [address] [place] [address] Phone #: ext- [phone] 12/07/2019 18:51 Patient: [...] higher, or as directed 4 General Instructions [facility] Emergency Department [address] [place] [address] Phone #: ext- [phone] 12/07/2019 18:51 Patient: NATALIYA BEASLEY Sex: F : 1995 Age: 24y Yellow color of the eyes or skin [phone] [employer] [place] [address], [place] [address]. All rights reserved. This information is not intended as asubstitute for professional medical care. Always follow your healthcare professional's instructions. You have been given the following additional information: Vomiting (Adult)(Electronically signed by Leena Martínez M.D. 12/07/2019 22:34) Name Value Range Interpretation Code Description Data Michelle rce(s) Supporting Document(s) ID Date Data Source [id number] 12/07/2019 06:58:00 PM EDT [facility] 1 Clinical Report - Nurses [facility] Emergency Department [address] [place] [address] Phone #: ext- [phone] 12/07/2019 18:51 Patient: [...] Last oral intake by patient was (9pm).Treatment COMMODITIES MANAGER:None.SEPSIS SCREEN: SIRS Screen negative. Sepsis Screen negative. [...] no deficiencies. 2 Clinical Report - Nurses [facility] Emergency Department [address] [place] [address] Phone #: ext- [phone] 12/07/2019 18:51 Patient: [...] Kemp R.N. 3 Clinical Report - Nurses [facility] Emergency Department [address] [place] [address] Phone #: ext- [phone] 12/07/2019 18:51 --------- Patient: NATALIYA BEASLEY Sex: [...] redness, or swelling. IV flushed thoroughly.--20:19 12/07/19 Mairano Melton R.N. 4 Clinical Report - Nurses [facility] Emergency Department [address] [place] [address] Phone #: ext- [phone] 12/07/2019 18:51 Patient: [...] Melton R.N. 5 Clinical Report - Nurses [facility] Emergency Department [address] [place] [address] Phone #: ext- [phone] 12/07/2019 18:51 Patient: [...] parent verbalized understanding. Written instructions provided in Maldivian. The patient was discharged by the physician. [...] rce(s) Supporting Document(s) ID Date Data Source [id number] 12/07/2019 06:58:00 PM EDT [facility] 1 Clinical Report - Physicians/Mid Levels [facility] Emergency Department [address] [place] [address] Phone #: ext- [phone] 12/07/2019 18:51 Patient: [...] allergies. 2 Clinical Report - Physicians/Mid Levels [facility] Emergency Depa rtment [address] [place] [address] Phone #: ext- [phone] 12/07/2019 18:51 Patient: [...] making process. ETOH: (ANGELY: 12/07/2019 19:00) ( [facility] 12/07/2019 19:44) Final results Test Result Flag Units (Reference) ALCOHOL ETHYL BLOOD CORRECTED REPORT ALCOHOL <10.0 MG/DL ALCOHOL % 0.00 % (0.00 - 0.01) *FOR MEDICAL PURPOSES ONLY* FOLLOWING RESULTS REPORTED IN ERROR ALCOHOL % { CORRECT CBC w Diff: (ANGELY: 12/07/2019 19:00) ( [facility] 12/07/2019 19:23) Final results Test Result Flag [...] 450) 3 Clinical Report - Physicians/Mid Levels [facility] Emergency Department [address] [place] [address] Phone #: ext- [phone] 12/07/2019 18:51 Patient: NATALIYA BEASLEY Sex: F [...] Male GFR Interprentation 20-49 yrs >60 mL/min Xtfftc02-87 yrs >56 mL/min Normal 60-69 yrs >49 mL/min Normal 70-79yrs>42 mL/min Normal 80 and above >35 mL/min Normal Female GFRInterpretation 20-39 yrs >60 mL/min Normal 40-49 yrs >58 mL/minNormal 50-59 yrs >51 mL/min Normal 60-69 yrs >45 mL/min Ixwxqy31-95 yrs >39 mL/min Normal 80 and above >32 mL/min NormalLipase: (ANGELY: 12/07/2019 19:00) ( Msg[facility]d 12/07/2019 19:44) Final results Test Result Flag Units (Reference) LIPASE 12 L U/L (13 - 60)Beta-HCG, Qual Serum: (ANGELY: 12/07/2019 19:00) ( [facility] 12/07/2019 19:39) Final results Test Result Flag Units (Reference) HCG SERUM QUAL NEGATIVE (NORMAL: NEGAT 4 Clinical Report - Physicians/Mid Levels [facility] Emergency Department [address] [place] [address] Phone #: ext- [phone] 12/07/2019 18:51 Patient: NATALIYA BEASLEY Sex: F : 1995 Age: 24y HCG SERUM QL REENTER NEGATIVE (NORMAL: NEGAT { KIT LOT # [id number] ){ KIT EXP DATE 02.27.21 ){ PROCEDURAL CONTROL VALID ) Magnesium: (ANGELY: 12/07/2019 19:00) ( [facility] 12/07/2019 19:44) Final results Test Result Flag Units (Reference) MAGNESIUM 1.3 L MG/DL (1.7 - 2.2) Troponin-T: (ANGELY: 12/07/2019 19:00) ( [facility] 12/07/2019 19:42) Final results Test Result Flag [...] USE). 5 Clinical Report - Physicians/Mid Levels [facility] Emergency Department [address] [place] [address] Phone #: ext- [phone] 12/07/2019 18:51 Patient: [...] tablet. Refills: 0. Substitution permitted. Pharmacy - [facility] #31 - [address] [facility] ; [place] [address]. . Pepcid 20 mg tablet Take 1 tablet twice a day for 7 days -- Dispense 14 tablet. Refills: 0. Substitution permitted. Pharmacy - [facility] #38 - [address] [facility] ; [place] [address]. . Follow- up: Return to the emergency [...] rce(s) Supporting Document(s) ID Date Data Source [id number] 12/07/2019 07:44:00 PM [facility] Name Value Range Interpretation Code Description Data Michelle rce(s) Supporting Document(s) Magnesium [Mass/volume] in Serum or Plasma 1.3 MG/DL 1.7 - 2.2 L [facility] ID Date Data Source [id number] 12/07/2019 07:44:00 PM [facility] Name Value Range Interpretation Code Description Data Michelle rce(s) Supporting Document(s) Lipase [Enzymatic activity/volume] in Serum or Plasma 12 U/L 13 - 60 L [facility] ID Date Data Source [id number] 12/07/2019 07:43:00 PM [facility] Name Value Range Interpretation Code Description Data Michelle rce(s) Supporting Document(s) ALCOHOL ETHYL BLOOD [facility] CORRECTE D REPORT Ethanol [Moles/volume] in Blood <10.0 MG/DL [facility] ALCOHOL % 0.00 % 0.00 - 0.01 [facility] ital *FOR MEDICAL PURPOSES ONLY * FOLLOWING RESULTS REPORTED IN ERROR ALCOHOL % { CORRECT ID Date Data Source [id number] 12/07/2019 07:43:00 PM EDT [facility] Name Value Range Interpretation Code Description Data Michelle rce(s) Supporting Document(s) COMPREHENSIVE METABOLIC PANEL [facility] COMPREHENSIVE METABOLIC PANEL Sodium [Moles/volume] in Serum or Plasma 140 mEq/L 134 - 153 [facility] Potassium [Moles/volume] in Serum or Plasma 4.4 mEq/L 3.6 - 5.0 [facility] Chloride [Moles/volume] in Serum or Plasma 94 mEq/L 98 - 107 L [facility] Carbon dioxide, total [Moles/volume] in Serum or Plasma 23 MEQ/L 22 - 30 [facility] Glucose [Mass/volume] in Serum or Plasma 127 MG/DL 65 - 110 H [facility] BUN 12 MG/DL 7 - 21 [facility] al Creatinine [Mass/volume] in Serum or Plasma 0.6 MG/DL 0.7 - 1.5 L [facility] BUN/CREAT 20 8 - 27 [facility] al Protein [Mass/volume] in Serum or Plasma 8.1 G/DL 6.3 - 8.2 [facility] Albumin [Mass/volume] in Serum or Plasma 5.1 G/DL 3.9 - 5.0 H [facility] Globulin [Mass/volume] in Serum by calculation 3.0 GM/DL 2.4 - 3.2 [facility] A/G RATIO 1.7 0.8 - 2.0 [facility] Calcium [Mass/volume] in Serum or Plasma 10.8 MG/DL 8.4 - 10.2 H [facility] Bilirubin.total [Mass/volume] in Serum or Plasma 0.8 MG/DL 0.2 - 1.3 [facility] Alkaline phosphatase [Enzymatic activity/volume] in Serum or Plasma 82 U/L 38 - 126 [facility] Aspartate aminotransferase [Enzymatic activity/volume] in Serum or Plasma 22 U/L 5 - 40 [facility] Alanine aminotransferase [Enzymatic activity/volume] in Seru m or Plasma 26 U/L 7 - 56 [facility] Anion gap 3 in Serum or Plasma 23.0 mmol/L 8.0 - 16.0 H [facility] AGE 24 yrs [facility] NON-AA GFR >60 mL/min [facility] ital AFR AMER GFR >60 mL/min [facility] Male GFR In terprentation 20-49 [...] >32 mL/min Normal ID Date Data Source [id number] 12/07/2019 07:42:00 PM EDT [facility] Name Value Range Interpretation Code Description Data Michelle rce(s) Supporting Document(s) TROPONIN T <0.01 NG/ML 0.00 - 0.10 [facility]ital TROPONIN T0.1 ng/ml Recommended as the c linical threshold value forTroponin T. ID Date Data Source [id number] 12/07/2019 07:38:00 PM EDT [facility] Name Value Range Interpretation Code Description Data Michelle rce(s) Supporting Document(s) HCG SERUM QUAL NEGATIVE NORMAL: NEGATIVE [facility] HCG SERUM QL REENTER NEGATIVE NORMAL: NEGATIVE [facility] { KIT LOT # [id number] ){ KIT EXP DATE 02.27.21 ){ PROCEDURAL CONTROL VALID ) ID Date Data Source [id number] 12/07/2019 07:23:00 PM EDT [facility] Name Value Range Interpretation Code Description Data Michelle rce(s) Supporting Document(s) CBC W/AUTOMATED DIFF [facility] COMPLETE BLOOD COUNT Leukocytes [#/volume] in Blood by Automated count 14.8 10^3/uL 4.2 - 11.0 H [facility] Erythrocytes [#/volume] in Blood by Automated count 4.77 10^6/uL 4. 20 - 5.40 [facility] Hemoglobin [Mass/volume] in Blood 15.0 g/dL 12.0 - 16.0 [facility] Hematocrit [Volume Fraction] of Blood by Automated count 43.9 % 3 7.0 - 47.0 [facility] Erythrocyte mean corpuscular volume [Entitic volume] by Auto mated count 92.0 fL 81.0 - 101 [facility] Erythrocyte mean corpuscular hemoglobin [Entitic mass] by Automated count 31.4 pg 27.0 - 34.0 [facility] Erythrocyte mean corpuscular hemoglobin concentration [Mass/volume] by Automated count 34.2 g/dL 31.0 - 36.0 [facility] Erythrocyte distribution width [Ratio] by Automated count 13.1 % 11.5 - 14.5 [facility] Platelets [#/volume] in Blood by Automated count 387 10^3/uL 150 - 45 0 [facility] Platelet mean volume [Entitic volume] in Blood by Automated count 10.0 fL 7.4 - 10.4 [facility] Neutrophils/100 leukocytes in Blood by Automated count 88.4 % 37. 0 - 80.0 H [facility] Lymphocytes/100 leukocytes in Blood by Manual count 8.9 % 25.0 - 40.0 L [facility] Monocytes/100 leukocytes in Blood by Automated count 2.3 % 3.0 - 8.0 L [facility] Eosinophils/100 leukocytes in Blood by Automated count 0.0 % 0.0 - 7.0 [facility] Basophils/100 leukocytes in Blood by Automated count 0.1 % 0.0 - 2.5 [facility] %IG 0.3 % 0.0 - 0.0 H [facility] %NRBC 0.0 % 0.0 - 0.0 [facility] al Neutrophils [#/volume] in Blood by Automated count 13.06 10^3/uL 2. 00 - 6.90 H [facility] Lymphocytes [#/volume] in Blood by Automated count 1.32 10^3/uL 0.60 - 3.40 [facility] Monocytes [#/volume] in Blood by Automated count 0.34 10^3/uL 0.00 - 0.90 [facility] Eosinophils [#/volume] in Blood by Automated count 0.00 10^3/uL 0.00 - 0.70 [facility] Basophils [#/volume] in Blood by Automated count 0.02 10^3/uL 0.00 - 0.20 [facility] #IG 0.04 10^3/uL 0.00 - 0.10 [facility] #NRBC 0.00 10^3/uL 0.00 - 0.00 [facility] MANUAL DIFF NOT INDICATED [facility] RBC MORPH NOT INDICATED [facility] spital ID Date Data Source [id number] 11/26/2019 12:29:00 [place] [address] RESPIRATORY CARE REPORT ==== ---------NAME------- NUMBER SEX AGE ADMIT DISC. XRAY# F/C TYPERIARIN CHINYEREELNiki Martinez [id number] F 24 11/24/19 [id number] [id number] O/P DATE OF : 1995 M/R# [id number] #: [id number] LOCATION: [place] [id number] COMP LETE:11/26/19 07:34 [place] [id number] PHYSICIAN: CLAUDIO Name Value Range Interpretation Code Description Data Michelle rce(s) Supporting Document(s) ID Date Data Source [id number] 11/26/2019 07:54:00 AM EDT [facility] Name Value Range Interpretation Code Description Data Michelle rce(s) Supporting Document(s) BASIC METABOLIC PANEL [facility] BASIC METABOLIC PANEL Sodium [Moles/volume] in Serum or Plasma 135 mEq/L 134 - 153 [facility] Potassium [Moles/volume] in Serum or Plasma 4.0 mEq/L 3.6 - 5.0 [facility] Chloride [Moles/volume] in Serum or Plasma 102 mEq/L 98 - 107 [facility] Carbon dioxide, total [Moles/volume] in Serum or Plasma 26 MEQ/L 22 - 30 [facility] Glucose [Mass/volume] in Serum or Plasma 89 MG/DL 65 - 110 [facility] BUN 5 MG/DL 7 - 21 L [facility] Creatinine [Mass/volume] in Serum or Plasma 0.5 MG/DL 0.7 - 1.5 L [facility] BUN/CREAT 10 8 - 27 [facility] al Calcium [Mass/volume] in Serum or Plasma 8.7 MG/DL 8.4 - 10.2 [facility] Anion gap 3 in Serum or Plasma 7.0 mmol/L 8.0 - 16.0 L [facility] AGE 24 yrs [facility] AFR AMER GFR >60 mL/min [facility] NON-AA GFR >60 mL/min [facility] ital Male GFR Inter prentation 20-49 [...] >32 mL/min Normal ID Date Data Source [id number] 11/26/2019 07:28:00 AM EDT [facility] Name Value Range Interpretation Code Description Data Michelle rce(s) Supporting Document(s) CBC NO DIFF [facility] ital COMPLETE BLOOD COUNT Leukocytes [#/volume] in Blood by Automated count 9.9 10^3/uL 4.2 - 1 1.0 [facility] Erythrocytes [#/volume] in Blood by Automated count 4.08 10^6/uL 4. 20 - 5.40 L [facility] Hemoglobin [Mass/volume] in Blood 12.7 g/dL 12.0 - 16.0 [facility] Hematocrit [Volume Fraction] of Blood by Automated count 38.0 % 3 7.0 - 47.0 [facility] Erythrocyte mean corpuscular volume [Entitic volume] by Auto mated count 93.1 fL 81.0 - 101 [facility] Erythrocyte mean corpuscular hemoglobin [Entitic mass] by Automated count 31.1 pg 27.0 - 34.0 [facility] Erythrocyte mean corpuscular hemoglobin concentration [Mass/volume] by Automated count 33.4 g/dL 31.0 - 36.0 [facility] Erythrocyte distribution width [Ratio] by Automated count 12.2 % 11.5 - 14.5 [facility] Platelets [#/volume] in Blood by Automated count 196 10^3/uL 150 - 45 0 [facility] Platelet mean volume [Entitic volume] in Blood by Automated count 10.3 fL 7.4 - 10.4 [facility] ID Date Data Source [id number] 11/26/2019 02:54:00 AM EDT [facility] Name Value Range Interpretation Code Description Data Michelle rce(s) Supporting Document(s) BASIC METABOLIC PANEL [facility] BASIC METABOLIC PANEL Sodium [Moles/volume] in Serum or Plasma 134 mEq/L 134 - 153 [facility] Potassium [Moles/volume] in Serum or Plasma 3.8 mEq/L 3.6 - 5.0 [facility] Chloride [Moles/volume] in Serum or Plasma 100 mEq/L 98 - 107 [facility] Carbon dioxide, total [Moles/volume] in Serum or Plasma 27 MEQ/L 22 - 30 [facility] Glucose [Mass/volume] in Serum or Plasma 82 MG/DL 65 - 110 [facility] BUN 7 MG/DL 7 - 21 [facility] Creatinine [Mass/volume] in Serum or Plasma 0.5 MG/DL 0.7 - 1.5 L [facility] BUN/CREAT 14 8 - 27 [facility] al Calcium [Mass/volume] in Serum or Plasma 8.6 MG/DL 8.4 - 10.2 [facility] Anion gap 3 in Serum or Plasma 7.0 mmol/L 8.0 - 16.0 L [facility] AGE 24 yrs [facility] al AFR AMER GFR >60 mL/min [facility] NON-AA GFR >60 mL/min [facility] ital Male GFR Inter prentation 20-49 [...] >32 mL/min Normal ID Date Data Source [id number] 11/25/2019 10:11:00 PM EDT [facility] Name Value Range Interpretation Code Description Data Michelle rce(s) Supporting Document(s) BASIC METABOLIC PANEL [facility] BASIC METABOLIC PANEL Sodium [Moles/volume] in Serum or Plasma 136 mEq/L 134 - 153 [facility] Potassium [Moles/volume] in Serum or Plasma 3.5 mEq/L 3.6 - 5.0 L [facility] Chloride [Moles/volume] in Serum or Plasma 99 mEq/L 98 - 107 [facility] Carbon dioxide, total [Moles/volume] in Serum or Plasma 27 MEQ/L 22 - 30 [facility] Glucose [Mass/volume] in Serum or Plasma 75 MG/DL 65 - 110 [facility] BUN 9 MG/DL 7 - 21 [facility] Creatinine [Mass/volume] in Serum or Plasma 0.5 MG/DL 0.7 - 1.5 L [facility] BUN/CREAT 18 8 - 27 [facility] al Calcium [Mass/volume] in Serum or Plasma 8.8 MG/DL 8.4 - 10.2 [facility] Anion gap 3 in Serum or Plasma 10.0 mmol/L 8.0 - 16.0 [facility] AGE 24 yrs [facility] al AFR AMER GFR >60 mL/min [facility] NON-AA GFR >60 mL/min [facility] ital Male GFR Inter prentation 20-49 [...] >32 mL/min Normal ID Date Data Source [id number] 11/25/2019 06:07:00 PM EDT [facility] Name Value Range Interpretation Code Description Data Michelle rce(s) Supporting Document(s) BASIC METABOLIC PANEL [facility] BASIC METABOLIC PANEL Sodium [Moles/volume] in Serum or Plasma 132 mEq/L 134 - 153 L [facility] Potassium [Moles/volume] in Serum or Plasma 3.2 mEq/L 3.6 - 5.0 L [facility] Chloride [Moles/volume] in Serum or Plasma 94 mEq/L 98 - 107 L [facility] Carbon dioxide, total [Moles/volume] in Serum or Plasma 28 MEQ/L 22 - 30 [facility] Glucose [Mass/volume] in Serum or Plasma 86 MG/DL 65 - 110 [facility] BUN 11 MG/DL 7 - 21 [facility] al Creatinine [Mass/volume] in Serum or Plasma 0.6 MG/DL 0.7 - 1.5 L [facility] BUN/CREAT 18 8 - 27 [facility] Calcium [Mass/volume] in Serum or Plasma 8.7 MG/DL 8.4 - 10.2 [facility] Anion gap 3 in Serum or Plasma 10.0 mmol/L 8.0 - 16.0 [facility] AGE 24 yrs [facility] al AFR AMER GFR >60 mL/min [facility] NON-AA GFR >60 mL/min [facility] ital Male GFR Inter prentation 20-49 [...] >32 mL/min Normal ID Date Data Source [id number] 11/25/2019 01:04:00 PM EDT [facility] [address] [place] [address] RESPIRATORY CARE REPORT ==== ---------NAME------- NUMBER SEX AGE ADMIT DISC. XRAY# F/C JOSS Martinez [id number] F 24 11/24/19 [id number] O/P DATE OF : 1995 M/R# [id number] #: [phone] [id number] LOCATION: EMERGENCY DEPT EKG 94507 COMP LETE:11/25/19 06:00 PAD [id number] PHYSICIAN: CLAUDIO Name Value Range Interpretation Code Description Data Michelle rce(s) Supporting Document(s) ID Date Data Source [id number] 11/25/2019 01:35:00 PM EDT [facility] Name Value Range Interpretation Code Description Data Michelle rce(s) Supporting Document(s) BASIC METABOLIC PANEL [facility] BASIC METABOLIC PANEL Sodium [Moles/volume] in Serum or Plasma 133 mEq/L 134 - 153 L [facility] Potassium [Moles/volume] in Serum or Plasma 3.3 mEq/L 3.6 - 5.0 L [facility] Chloride [Moles/volume] in Serum or Plasma 93 mEq/L 98 - 107 L [facility] Carbon dioxide, total [Moles/volume] in Serum or Plasma 32 MEQ/L 22 - 30 H [facility] Glucose [Mass/volume] in Serum or Plasma 84 MG/DL 65 - 110 [facility] BUN 12 MG/DL 7 - 21 [facility] Creatinine [Mass/volume] in Serum or Plasma 0.6 MG/DL 0.7 - 1.5 L [facility] BUN/CREAT 20 8 - 27 [facility] Calcium [Mass/volume] in Serum or Plasma 8.9 MG/DL 8.4 - 10.2 [facility] Anion gap 3 in Serum or Plasma 8.0 mmol/L 8.0 - 16.0 [facility] AGE 24 yrs [facility] al AFR AMER GFR >60 mL/min [facility] spital NON-AA GFR >60 mL/min [facility] ital Male GFR Inter prentation 20-49 [...] >32 mL/min Normal ID Date Data Source [id number] 11/25/2019 10:02:00 AM EDT [facility] [address] [place] [address] PHONE: [phone] FAX: [phone] Name .................. : RITTER NATALIYA Martinez Acct Number.................. : [id number] ROOM. ................. : TR-04 MR Number ................... : [id number] Stay type ............. : E/R Discharge Date......... ... : Admit Date ......... : 11/24/19 Admit Phys .................... : MICKEYMINNIE L Date of ....... : 1995 Family Phys ................... : COLLAZO SCOT Phone .................. : [phone] Age ................................ : 24 Film# .................. .:[id number] Sex ................................. : F Unsigned transcriptions are preliminary reports and do not represent a medical or legal document CT ABD & PELVIS W/ IV ONLY [id number] COMPLETE:11/24/19 18:06 RLB [id number] Reason(s): Abdominal Pain CT OF THE ABDOMEN [...] and Signed By Page 1 of 2 [facility] [address] [place] [address] PHONE: [phone] FAX: [phone] Name .................. : RITTER NATALIYA Martinez Acct Number.................. : [id number] ROOM. ................. : TR-04 MR Number ................... : [id number] Stay type ............. : E/R Discharge Date......... ... : Admit Date ......... : 11/24/19 Admit Phys .................... : AMERNATH L Date of ....... : 1995 Family Phys ................... : COLLAZO SCOT Phone .................. : [phone] Age ................................ : 24 Film# .................. .:[id number] Sex ................................. : F Unsigned transcriptions are preliminary reports and do not represent a medical or legal document CT ABD & PELVIS W/ IV ONLY [id number] COMPLETE:11/24/19 18:06 RLB [id number] Reason(s): Abdominal Pain Genaro Lozoya M.D. , 11/25/19 10:02, [facility] Transcribe Initials: FAHAD , Transcribe Date: 11/24/19 20:06, Dictation Date: Copy for: EMERGENCY DEPT via modem Copy for: [facility] REC Page 2 of 2 Name Value Range Interpretation Code Description Data Michelle rce(s) Supporting Document(s) ID Date Data Source [id number] 11/25/2019 06:53:00 AM EDT [facility] Name Value Range Interpretation Code Description Data Michelle rce(s) Supporting Document(s) Magnesium [Mass/volume] in Serum or Plasma 2.5 MG/DL 1.7 - 2.2 H [facility] ID Date Data Source [id number] 11/25/2019 06:53:00 AM EDT [facility] Name Value Range Interpretation Code Description Data Michelle rce(s) Supporting Document(s) COMPREHENSIVE METABOLIC PANEL [facility] COMPREHENSIVE METABOLIC PANEL Sodium [Moles/volume] in Serum or Plasma 131 mEq/L 134 - 153 L [facility] Potassium [Moles/volume] in Serum or Plasma 3.5 mEq/L 3.6 - 5.0 L [facility] Chloride [Moles/volume] in Serum or Plasma 86 mEq/L 98 - 107 L [facility] Carbon dioxide, total [Moles/volume] in Serum or Plasma 35 MEQ/L 22 - 30 H [facility] Glucose [Mass/volume] in Serum or Plasma 85 MG/DL 65 - 110 [facility] BUN 16 MG/DL 7 - 21 [facility] al Creatinine [Mass/volume] in Serum or Plasma 0.6 MG/DL 0.7 - 1.5 L [facility] BUN/CREAT 27 8 - 27 [facility] al Protein [Mass/volume] in Serum or Plasma 6.4 G/DL 6.3 - 8.2 [facility] Albumin [Mass/volume] in Serum or Plasma 4.3 G/DL 3.9 - 5.0 [facility] Globulin [Mass/volume] in Serum by calculation 2.1 GM/DL 2.4 - 3.2 L [facility] A/G RATIO 2.0 0.8 - 2.0 [facility] Calcium [Mass/volume] in Serum or Plasma 9.2 MG/DL 8.4 - 10.2 [facility] Bilirubin.total [Mass/volume] in Serum or Plasma 1.1 MG/DL 0.2 - 1.3 [facility] Alkaline phosphatase [Enzymatic activity/volume] in Serum or Plasma 70 U/L 38 - 126 [facility] Aspartate aminotransferase [Enzymatic activity/volume] in Serum or Plasma 26 U/L 5 - 40 [facility] Alanine aminotransferase [Enzymatic activity/volume] in Seru m or Plasma 29 U/L 7 - 56 [facility] Anion gap 3 in Serum or Plasma 10.0 mmol/L 8.0 - 16.0 [facility] AGE 24 yrs [facility] al NON-AA GFR >60 mL/min [facility] ital AFR AMER GFR >60 mL/min [facility] sp[facility] Male GFR In terprentation 20-49 [...] >32 mL/min Normal ID Date Data Source [id number] 11/25/2019 06:24:00 AM EDT [facility] Name Value Range Interpretation Code Description Data Michelle rce(s) Supporting Document(s) CBC W/AUTOMATED DIFF [facility] COMPLETE BLOOD COUNT Leukocytes [#/volume] in Blood by Automated count 10.0 10^3/uL 4.2 - 11.0 [facility] Erythrocytes [#/volume] in Blood by Automated count 4.70 10^6/uL 4. 20 - 5.40 [facility] Hemoglobin [Mass/volume] in Blood 14.7 g/dL 12.0 - 16.0 [facility] Hematocrit [Volume Fraction] of Blood by Automated count 41.5 % 3 7.0 - 47.0 [facility] Erythrocyte mean corpuscular volume [Entitic volume] by Auto mated count 88.3 fL 81.0 - 101 [facility] Erythrocyte mean corpuscular hemoglobin [Entitic mass] by Automated count 31.3 pg 27.0 - 34.0 [facility] Erythrocyte mean corpuscular hemoglobin concentration [Mass/volume] by Automated count 35.4 g/dL 31.0 - 36.0 [facility] Erythrocyte distribution width [Ratio] by Automated count 12.0 % 11.5 - 14.5 [facility] Platelets [#/volume] in Blood by Automated count 241 10^3/uL 150 - 45 0 [facility] Platelet mean volume [Entitic volume] in Blood by Automated count 10.6 fL 7.4 - 10.4 H [facility] Neutrophils/100 leukocytes in Blood by Automated count 65.5 % 37. 0 - 80.0 [facility] Lymphocytes/100 leukocytes in Blood by Manual count 23.7 % 25.0 - 40.0 L [facility] Monocytes/100 leukocytes in Blood by Automated count 9.3 % 3.0 - 8.0 H [facility] Eosinophils/100 leukocytes in Blood by Automated count 0.7 % 0.0 - 7.0 [facility] Basophils/100 leukocytes in Blood by Automated count 0.2 % 0.0 - 2.5 [facility] %IG 0.6 % 0.0 - 0.0 H [facility] %NRBC 0.0 % 0.0 - 0.0 [facility] al Neutrophils [#/volume] in Blood by Automated count 6.51 10^3/uL 2.00 - 6.90 [facility] Lymphocytes [#/volume] in Blood by Automated count 2.36 10^3/uL 0.60 - 3.40 [facility] Monocytes [#/volume] in Blood by Automated count 0.93 10^3/uL 0.00 - 0.90 H [facility] Eosinophils [#/volume] in Blood by Automated count 0.07 10^3/uL 0.00 - 0.70 [facility] Basophils [#/volume] in Blood by Automated count 0.02 10^3/uL 0.00 - 0.20 [facility] #IG 0.06 10^3/uL 0.00 - 0.10 [facility] ospital #NRBC 0.00 10^3/uL 0.00 - 0.00 [facility] o[facility] MANUAL DIFF NOT INDICATED [facility] RBC MORPH NOT INDICATED [facility] spital ID Date Data Source [id number] 11/25/2019 01:45:00 AM EDT [facility] Name Value Range Interpretation Code Description Data Michelle rce(s) Supporting Document(s) BASIC METABOLIC PANEL [facility] BASIC METABOLIC PANEL Sodium [Moles/volume] in Serum or Plasma 127 mEq/L 134 - 153 L [facility] Potassium [Moles/volume] in Serum or Plasma 2.4 mEq/L 3.6 - 5.0 LL [facility] CALL/ READ BACK [facility] BY: LSA [facility] DATE/TIME 11/25/2019 0145 AM [facility] Chloride [Moles/volume] in Serum or Plasma 80 mEq/L 98 - 107 L [facility] Carbon dioxide, total [Moles/volume] in Serum or Plasma 36 MEQ/L 22 - 30 H [facility] Glucose [Mass/volume] in Serum or Plasma 105 MG/DL 65 - 110 [facility] BUN 18 MG/DL 7 - 21 [facility] Creatinine [Mass/volume] in Serum or Plasma 0.7 MG/DL 0.7 - 1.5 [facility] BUN/CREAT 26 8 - 27 [facility] Calcium [Mass/volume] in Serum or Plasma 9.2 MG/DL 8.4 - 10.2 [facility] Anion gap 3 in Serum or Plasma 11.0 mmol/L 8.0 - 16.0 [facility] AGE 24 yrs [facility] al AFR AMER GFR >60 mL/min [facility] sp[facility] NON-AA GFR >60 mL/min [facility] ital Male GFR Inter prentation 20-49 [...] >32 mL/min Normal ID Date Data Source [id number] 11/24/2019 05:12:00 PM EDT [facility] 1 OrderSheet [facility] Emergency Department [address] [place] [address] Phone #: ext- [phone] 11/24/2019 16:57 Patient: [...] STAT 17:15 11/24/2019 17:17 Devika, 2 OrderSheet [facility] Emergency Department [address] [place] [address] Phone #: ext- [phone] 11/24/2019 16:57 Patient: [...] rce(s) Supporting Document(s) ID Date Data Source [id number] 11/24/2019 05:12:00 PM EDT [facility] 1 Medication Reconciliation Report [facility] Emergency Department [address] [place] [address] Phone #: ext- [phone] 11/24/2019 16:57 Patient: [...] rce(s) Supporting Document(s) ID Date Data Source [id number] 11/24/2019 05:12:00 PM EDT [facility] 1 Medication Administration Record [facility] Emergency Department [address] [place] [address] Phone #: ext- [phone] 11/24/2019 16:57 Patient: NATALIYA BEASLEY Sex: F : 1995 Age: 24yWeight: 58.9 kgHeight/Length: 63 inBMI: 23ALLERGIES: None Date/Time Medication Administered Medication OrderedStart NS [IV] NS IV : Bolus 1000 mL, then 00463:29 11/24/2019 Dose: IV Fluids mL/hr (NOW x1); [...] cruz R.N.Start KCL [IVPB] KCl IVPB 10 meq/812rG32:29 11/24/2019 Dose: 10 meq IVPBSoAureliano lara R.N. [...] rce(s) Supporting Document(s) ID Date Data Source [id number] 11/24/2019 05:12:00 PM EDT [facility] 1 General Instructions [facility] Emergency Department [address] [place] [address] Phone #: ext- [phone] 11/24/2019 16:57 Patient: NATALIYA BEASLEY Sex: F [...] and water are not available, use alcohol-based assistant librarian to keep from spreading the infection to [...] disease, or after a 2 General Instructions [facility] Emergency Department [address] [place] [address] Phone #: ext- [phone] 11/24/2019 16:57 [id number] Sex: F : 1995 Age: 24y stroke) [...] coffee grounds Swollen belly 3 General Instructions [facility] Emergency Department [address] [place] [address] Phone #: ext- [phone] 11/24/2019 16:57 Patient: NATALIYA BEASLEY Sex: F : 1995 Age: 24y Frequent diarrhea (more than 5 times a day); blood (red or black color) or mucus in diarrhea Reduced urine output or extreme thirst Weakness, dizziness or fainting Unusually drowsy or confused Fever of 100.4F (38C) oral or higher, or as directed Yellow color of the eyes or skin [phone] [employer]. [address] [place] [address], [place] [address]. All rights reserved. This information is not [...] can also cause gastritis. 4 General Instructions [facility] Emergency Department [address] [place] [address] Phone #: ext- [phone] 11/24/2019 16:57 Patient: [...] (can't keep down liquids) 5 General Instructions [facility] Emergency Department [address] [place] [address] Phone #: ext- [phone] 11/24/2019 16:57 Patient: NATALIYA BEASLEY Sex: F : 1995 Age: 24y Blood in the stool or vomit (red or black in color) Feeling weak or dizzy Shortness of breath Unexplained weight loss Fever of 100.4F (38C) or higher, or as directed by your healthcare provider [phone] [employer]. [address] [place] [address], [place] [address]. All rights reserved. This information is not [...] fatigue, or muscle cramps 6 General Instructions [facility] Emergency Department [address] [place] [address] Phone #: ext- [phone] 11/24/2019 16:57 Patient: NATALIYA BEASLEY Sex: F : 1995 Age: 24y DizzinessCall 911Call 911 if any of the following occur: Irregular heartbeat, extra beats, or very fast heart rate Loss of consciousness [phone] [employer]. [address] [place] [address], [place] [address]. All rights reserved. This information is not [...] of the following occur: 7 General Instructions [facility] Emergency Department [address] [place] [address] Phone #: ext- [phone] 11/24/2019 16:57 Patient: NATALIYA BEASLEY Sex: F : 1995 Age: 24y Increasing weakness Dizziness Irregular heartbeat, extra beats or very fast heart rate Increasing confusion Fainting or loss of consciousness Seizure [id number] [employer]. [address] [place] [address], [place] [address]. All rights reserved. This information is not intended as asubstitute for professional medical care. Always follow your healthcare professional's instructions. You have been given the following additional information: Vomiting (Adult) Gastritis (Adult) Hypokalemia Hyponatremia(Electronically signed by Ariel Miller M.D. 11/25/2019 00:42) Name Value Range Interpretation Code Description Data Michelle rce(s) Supporting Document(s) ID Date Data Source [id number] 11/24/2019 05:12:00 PM EDT [facility] 1 Clinical Report - Nurses [facility] Emergency Department [address] [place] [address] Phone #: ext- [phone] 11/24/2019 16:57 Patient: NATALIYA BEASLEY Sex: F : 1995 Age: 24yTRIAGEArrived by private vehicle. Historian: family. Accompanied by family. ( went to [employer] thursdaywas drinking alcohol and started vomit with lower abd pain).Acuity: LEVEL 3.Chief Complaint: ABDOMINAL PAIN, NAUSEA and VOMITING.Alert. No acute distress.Onset. (last ). The patient has had constipation and abdominal pain. ( muscle spasms in legsand arms, last bm last ).Treatment COMMODITIES MANAGER:None.SEPSIS SCREEN: SIRS Screen positive. --17:05 11/24/19 Alexia [...] of CRE. 2 Clinical Report - Nurses [facility] Emergency Department [address] [place] [address] Phone #: ext- [phone] 11/24/2019 16:57 Patient: [...] To treatment room. --17:11/24/19 Alexia Kemp R.N.PHYSICAL [id number] 11/24/19. Ambulatory to room.GENERAL / NEURO / [...] and post-medication 3 Clinical Report - Nurses [facility] Emergency Department [address] [place] [address], [place] [address] Phone #: ext- [phone] 11/24/2019 16:57 Patient: [...] Patient transported to CT by wheelchair with research technician. --17:58 11/24/19 Aureliano Fortune, R.N.18:07 11/24/19. Patient returned from CT by wheelchair with research technician. --18:12 11/24/19 Aureliano Fortune, R.N.18:14 11/24/19. [...] Verified lab 4 Clinical Report - Nurses [facility] Emergency Department [address] [place] [address] Phone #: ext- [phone] 11/24/2019 16:57 Patient: NATALIYA BEASLEY Sex: F [...] Fortune R.N. 5 Clinical Report - Nurses [facility] Emergency Department [address] [place] [address] Phone #: ext- [phone] 11/24/2019 16:57 Patient: [...] rce(s) Supporting Document(s) ID Date Data Source [id number] 11/24/2019 05:12:00 PM EDT [facility] 1 Clinical Report - Physicians/Mid Levels [facility] Emergency Department [address] [place] [address] Phone #: ext- [phone] 11/24/2019 16:57 Patient: [...] described as moderate. (was [place] and drank quite a bit.been vomiting since [...] weekly. 2 Clinical Report - Physicians/Mid Levels [facility] Emergency Department [address] [place] [address] Phone #: ext- [phone] 11/24/2019 16:57 Patient: [...] 1.5) 3 Clinical Report - Physicians/Mid Levels [facility] Emergency Department [address] [place] [address] Phone #: ext- [phone] 11/24/2019 16:57 Patient: NATALIYA BEASLEY Sex: F : 1995 Age: 24y BUN/CREAT 29 H (8 - 27) CALCIUM 10.0 MG/DL (8.4 - 10.2) ANION GAP 16.0 mmol/L (8.0 - 16.0) AGE 24 yrs AFR AMER GFR >60 mL/min NON-AA GFR >60 mL/min Male GFR Interprentation 20-49 yrs >60 mL/min Veeylk79-60 yrs >56 mL/min Normal 60-69 yrs >49 mL/min Normal 70-79yrs>42 mL/min Normal 80 and above >35 mL/min Normal Female GFRInterpretation 20-39 yrs >60 mL/min Normal 40-49 yrs >58 mL/minNormal 50-59 yrs >51 mL/min Normal 60-69 yrs >45 mL/min Ktldpw89-58 yrs >39 mL/min Normal 80 and above >32 mL/min NormalMagnesium: (ANGELY: 11/24/2019 17:15) ( MsgRcvd 11/24/2019 18:59) Final results Test Result Flag Units (Reference) MAGNESIUM 2.5 H MG/DL (1.7 - 2.2)Magnesium: (ANGELY: 11/24/2019 18:16) ( MsgRcvd 11/24/2019 18:32) CanceledCPK: (ANGELY: 11/24/2019 17:15) ( OrgRcvd 11/24/2019 18:04) Final results Test Result Flag [...] NEGATIVE (NORMAL: NEGAT { KIT LOT # [id number] ){ KIT EXP DATE02.27.21 ){ PROCEDURAL CONTROL [...] 40.0) 4 Clinical Report - Physicians/Mid Levels [facility] Emergency Department [address] [place] [address] Phone #: ext- [phone] 11/24/2019 16:57 Patient: [...] Male GFR Interprentation 20-49 yrs >60 mL/min Dsdwks65-99 yrs >56 mL/min Normal 60-69 yrs >49 mL/min Normal 70-79yrs>42 mL/min Normal 80 and above >35 mL/min Normal Female GFRInterpretation 20-39 yrs >60 mL/min Normal 40-49 yrs >58 mL/minNormal 50-59 yrs >51 mL/min Normal 60-69 yrs >45 mL/min Kxtueq00-04 yrs >39 mL/min Normal 80 and above >32 mL/min NormalLipase: (ANGELY: 11/24/2019 17:15) ( MsgRcvd 11/24/2019 18:04) Final results Test Result Flag Units (Reference) LIPASE 15 U/L (13 - 60) 5 Clinical Report - Physicians/Mid Levels [facility] Emergency Department [address] [place] [address] Phone #: ext- [phone] 11/24/2019 16:57 Patient: NATALIYA BEASLEY Sex: F [...] rce(s) Supporting Document(s) ID Date Data Source [id number] 11/24/2019 08:16:00 PM EDT [facility] Name Value Range Interpretation Code Description Data Michelle rce(s) Supporting Document(s) URINALYSIS [facility] tracy URINALYSIS SOURCE R [facility] COLOR yellow NORMAL: Yellow [facility] CLARITY hazy NORMAL: Clear [facility] Specific gravity of Urine by Test strip 1.010 1.001 - 1.030 [facility] pH 8 5 - 9 [facility] al Glucose [Mass/volume] in Urine by Test strip NORM NORMAL: Negat [facility] Bilirubin.total [Presence] in Urine by Test strip NEG NORMAL: Negative [facility] Ketones [Presence] in Urine by Test strip 5 NORMAL: Negative [facility] Protein [Mass/volume] in Urine by Test strip 15 NORMAL: Negat [facility] Nitrite [Presence] in Urine by Test strip NEG NORMAL: Negative [facility] BLOOD NEG NORMAL: Negative [facility] Leukocyte esterase [Presence] in Urine by Test strip NEG DAYLIN L: Negative [facility] Urobilinogen [Mass/volume] in Urine by Test strip 1 less tito n 1.0 mg/dL [facility] MICROSCOPIC See Below [facility] ital WBC 3 - 5 NORMAL: NONE SEEN [facility] Erythrocytes [#/volume] in Urine by Test strip 3 - 5 NORMAL: NON E SEEN [facility] EPITHELIAL MODERATE NORMAL: NONE SEEN [facility] Bacteria [Presence] in Urine sediment by Light microscopy 2+ MOD NORMAL: NONE SEEN [facility] Mucus [Presence] in Urine sediment by Light microscopy Trace NORMAL: NONE SEEN [facility] ID Date Data Source [id number] 11/24/2019 07:13:00 PM EDT [facility] Name Value Range Interpretation Code Description Data Michelle rce(s) Supporting Document(s) BASIC METABOLIC PANEL [facility] BASIC METABOLIC PANEL Sodium [Moles/volume] in Serum or Plasma 120 mEq/L 134 - 153 L [facility] Potassium [Moles/volume] in Serum or Plasma 2.4 mEq/L 3.6 - 5.0 LL [facility] CALL/ READ BACK EDILMA IN ED [facility] BY: ROCK [facility] al DATE/TIME [facility] Chloride [Moles/volume] in Serum or Plasma 69 mEq/L 98 - 107 L [facility] CALLED CHLORIDE Carbon dioxide, total [Moles/volume] in Serum or Plasma 35 MEQ/L 22 - 30 H [facility] Glucose [Mass/volume] in Serum or Plasma 113 MG/DL 65 - 110 H [facility] BUN 23 MG/DL 7 - 21 H [facility] al Creatinine [Mass/volume] in Serum or Plasma 0.8 MG/DL 0.7 - 1.5 [facility] BUN/CREAT 29 8 - 27 H [facility] Calcium [Mass/volume] in Serum or Plasma 10.0 MG/DL 8.4 - 10.2 [facility] Anion gap 3 in Serum or Plasma 16.0 mmol/L 8.0 - 16.0 [facility] AGE 24 yrs [facility] AFR AMER GFR >60 mL/min [facility] NON-AA GFR >60 mL/min [facility] Male GFR Inter prentation 20-49 yrs [...] >32 mL/min Normal ID Date Data Source [id number] 11/24/2019 06:59:00 PM EDT [facility] Name Value Range Interpretation Code Description Data Michelle rce(s) Supporting Document(s) Magnesium [Mass/volume] in Serum or Plasma 2.5 MG/DL 1.7 - 2.2 H [facility] ID Date Data Source [id number] 11/24/2019 06:14:00 PM EDT [facility] Name Value Range Interpretation Code Description Data Michelle rce(s) Supporting Document(s) COMPREHENSIVE METABOLIC PANEL [facility] COMPREHENSIVE METABOLIC PANEL Sodium [Moles/volume] in Serum or Plasma 122 mEq/L 134 - 153 L [facility] Potassium [Moles/volume] in Serum or Plasma 2.2 mEq/L 3.6 - 5.0 LL [facility] CALL/ READ BACK EDILMA IN ED [facility] BY: ROCK [facility] ital Chloride [Moles/volume] in Serum or Plasma <68 mEq/L 98 - 107 L [facility] CHLORIDE RESULT CALLED [facility] Carbon dioxide, total [Moles/volume] in Serum or Plasma 35 MEQ/L 22 - 30 H [facility] Glucose [Mass/volume] in Serum or Plasma 132 MG/DL 65 - 110 H [facility] BUN 26 MG/DL 7 - 21 H [facility] al Creatinine [Mass/volume] in Serum or Plasma 0.8 MG/DL 0.7 - 1.5 [facility] BUN/CREAT 33 8 - 27 H [facility] Protein [Mass/volume] in Serum or Plasma 8.7 G/DL 6.3 - 8.2 H [facility] Albumin [Mass/volume] in Serum or Plasma 5.4 G/DL 3.9 - 5.0 H [facility] Globulin [Mass/volume] in Serum by calculation 3.3 GM/DL 2.4 - 3.2 H [facility] A/G RATIO 1.6 0.8 - 2.0 [facility] Calcium [Mass/volume] in Serum or Plasma 10.5 MG/DL 8.4 - 10.2 H [facility] [facility] Bilirubin.total [Mass/volume] in Serum or Plasma 2.1 MG/DL 0.2 - 1.3 H [facility] Alkaline phosphatase [Enzymatic activity/volume] in Serum or Plasma 93 U/L 38 - 126 [facility] Aspartate aminotransferase [Enzymatic activity/volume] in Serum or Plasma 37 U/L 5 - 40 [facility] Alanine aminotransferase [Enzymatic activity/volume] in Seru m or Plasma 36 U/L 7 - 56 [facility] Anion gap 3 in Serum or Plasma 19.0 mmol/L 8.0 - 16.0 H [facility] AGE 24 yrs [facility] NON-AA GFR >60 mL/min [facility] AFR AMER GFR >60 mL/min [facility] Male GFR In terprentation 20-49 [...] >32 mL/min Normal ID Date Data Source [id number] 11/24/2019 06:06:00 PM EDT [facility] Name Value Range Interpretation Code Description Data Michelle rce(s) Supporting Document(s) CBC W/AUTOMATED DIFF [facility] COMPLETE BLOOD COUNT Leukocytes [#/volume] in Blood by Automated count 17.0 10^3/uL 4.2 - 11.0 H [facility] Erythrocytes [#/volume] in Blood by Automated count 5.64 10^6/uL 4. 20 - 5.40 H [facility] Hemoglobin [Mass/volume] in Blood 17.8 g/dL 12.0 - 16.0 H [facility] Hematocrit [Volume Fraction] of Blood by Automated count 47.8 % 3 7.0 - 47.0 H [facility] Erythrocyte mean corpuscular volume [Entitic volume] by Auto mated count 84.8 fL 81.0 - 101 [facility] Erythrocyte mean corpuscular hemoglobin [Entitic mass] by Automated count 31.6 pg 27.0 - 34.0 [facility] Erythrocyte mean corpuscular hemoglobin concentration [Mass/volume] by Automated count 37.2 g/dL 31.0 - 36.0 H [facility] Erythrocyte distribution width [Ratio] by Automated count 11.8 % 11.5 - 14.5 [facility] Platelets [#/volume] in Blood by Automated count 324 10^3/uL 150 - 45 0 [facility] Platelet mean volume [Entitic volume] in Blood by Automated count 10.2 fL 7.4 - 10.4 [facility] Neutrophils/100 leukocytes in Blood by Automated count 79.6 % 37. 0 - 80.0 [facility] Lymphocytes/100 leukocytes in Blood by Manual count 11.8 % 25.0 - 40.0 L [facility] Monocytes/100 leukocytes in Blood by Automated count 7.4 % 3.0 - 8.0 [facility] Eosinophils/100 leukocytes in Blood by Automated count 0.1 % 0.0 - 7.0 [facility] Basophils/100 leukocytes in Blood by Automated count 0.2 % 0.0 - 2.5 [facility] %IG 0.9 % 0.0 - 0.0 H [facility] al %NRBC 0.0 % 0.0 - 0.0 [facility] al Neutrophils [#/volume] in Blood by Automated count 13.56 10^3/uL 2. 00 - 6.90 H [facility] Lymphocytes [#/volume] in Blood by Automated count 2.01 10^3/uL 0.60 - 3.40 [facility] Monocytes [#/volume] in Blood by Automated count 1.26 10^3/uL 0.00 - 0.90 H [facility] Eosinophils [#/volume] in Blood by Automated count 0.01 10^3/uL 0.00 - 0.70 [facility] Basophils [#/volume] in Blood by Automated count 0.04 10^3/uL 0.00 - 0.20 [facility] #IG 0.15 10^3/uL 0.00 - 0.10 H [facility] #NRBC 0.00 10^3/uL 0.00 - 0.00 [facility] MANUAL DIFF SEE BELOW [facility] ital Segmented neutrophils/100 leukocytes in Blood by Manual count 77 % 37 - 80 [facility] %LYMPH 12 % 25 - 40 L [facility] %MONO 11 % 3 - 8 [facility] RBC MORPH MORPH IS NORMAL [facility] ID Date Data Source [id number] 11/24/2019 06:04:00 PM EDT [facility] Name Value Range Interpretation Code Description Data Michelle rce(s) Supporting Document(s) Creatine kinase [Enzymatic activity/volume] in Serum or Plasma 3 21 U/L 30 - 170 H [facility] ID Date Data Source [id number] 11/24/2019 06:04:00 PM EDT [facility] Name Value Range Interpretation Code Description Data Michelle rce(s) Supporting Document(s) Lipase [Enzymatic activity/volume] in Serum or Plasma 15 U/L 13 - 60 [facility] ID Date Data Source [id number] 11/24/2019 05:49:00 PM EDT [facility] Value Range Interpretation Code Description Data Michelle rce(s) Supporting Document(s) HCG SERUM QUAL NEGATIVE NORMAL: NEGATIVE [facility] HCG SERUM QL REENTER NEGATIVE NORMAL: NEGATIVE [facility] { KIT LOT # [id number] ){ KIT EXP DATE 02.27.21 ){ PROCEDURAL CONTROL VALID ) Procedure Vital Signs ID Date Data Source [id number] 12/30/2019 12:40:05 PM EDT [facility] Value Range Interpretation Code Description Data Source(s) WEIGHT RECORDED 138.00 pounds 138.00 pounds [facility] Height 63 Inches 063 Inches [facility] ID Date Data Source [id number] 12/26/2019 05:03:00 PM EDT [facility] Value Range Interpretation Code Description Data Source(s) WEIGHT RECORDED 136.90 pounds 136.90 pounds [facility] Height 62 Inches 062 Inches [facility] ID Date Data Source [id number] 12/26/2019 05:02:58 PM EDT [facility] Value Range Interpretation Code Description Data Source(s) WEIGHT RECORDED 133.90 pounds 133.90 pounds [facility] Height 62 Inches 062 Inches [facility]
[2020-07-03] MEDS ORDERED: ACETAMINOPHEN TAB 650MG DOSE (2X325MG) PO PRN (23:00)
[2020-07-03] MEDS ORDERED: MAG SULF 1GM/100ML (MAG RUN) 1 GM in IV 1 EA IV ONE (23:15)
[2020-07-03] MEDS ORDERED: ONDANSETRON 4MG/2ML VIAL IV SCH (23:15)
--- NOTE | 2020-07-03 23:27 | HPEPDOC ---
General Date of Admission Jul 03, 2020 at 16:10 Date of Service: Jul 03, 2020 Chief Complaint The patient is a 24-year-old female admitted with a reason for visit of Cannabis Hyperemesis Syndrome, Hypokalemia. Source: Patient Exam Limitations: Clinical conditions Timing/Duration: Week(s) (2) Severity: Mild Associated Symptoms: Nausea, Vomiting History of Present Illness Patient is a 24 yo female with PMH of cannabis use disorder presented to [facility] due to 2 weeks of Nausea and vomiting. She denies fever, chills, diarrhea. Sehe reported that her last BM was on Sat and it was normal without blood in stool. She reported she has been smoking marijuana since 15 yo but deines other drug use. She reported she had smoke marijuana on 07/03/2020. Denies tobacco use. Denies sick contact or travel hx. Home Medications No Active Prescriptions or Reported Meds Allergies Coded Allergies: lactose (Verified Allergy, Unknown, 05/08/19) Past Medical History Medical History Cannabis use Bilateral ear tube replacement Surgical History Bilateral ear tube replacement Family History Denies family history/noncontributory Social History * Smoker: other (smokes marijuana only) Alcohol: other (drinks 6 pack of beer on the weekends, but denies any other alcohol use) A-FIB/CHADSVASC A-FIB History Current/History of A-Fib/PAF?: No Review of Systems Constitutional: Denies: Chills, Fever Eyes: Denies: Vision change ENT: Denies: Dysphagia Skin: Denies: Jaundice, Bruising Pulmonary: Denies: Dyspnea Cardiovascular: Denies: Chest Pain, Palpitations Gastrointestinal: Reports: Nausea, Vomiting; Denies: Abdominal Pain, Diarrhea, Constipation, Hematochezia Genitourinary: Denies: Dysuria, Frequency Neurological: Denies: Numbness, Change in speech Psych: Reports: Mood Normal Physical Examination General Exam: Positive: Alert, Cooperative, Mild Distress Eye Exam: Negative: Sclera icteric ENT Exam: Positive: Atraumatic, Mucous membr. moist/pink Chest Exam: Positive: Clear to auscultation, Normal air movement; Negative: Rales, Rhonchi, Wheezing Heart Exam: Positive: Rate Normal, Regular Rhythm Abdomen Exam: Positive: Normal bowel sounds, Soft; Negative: Tenderness Neuro Exam: Positive: Normal Tone Psych Exam: Positive: Anxiety, Memory Intact Vital Signs Vital Signs Date Time Temp Pulse Resp B/P (MAP) Pulse Ox O2 Delivery O2 Flow Rate FiO2 07/03/20 21:40 07/03/20 16:10 98.1 96 18 100 Room Air Laboratory Data Labs 24H Laboratory Tests 2 07/03/20 17:21: Immature Granulocyte % (Auto) 0.3, Neutrophils (%) (Auto) 81.5H, Lymphocytes (%) (Auto) 12.4L, Monocytes (%) (Auto) 5.6, Eosinophils (%) (Auto) 0.0, Basophils (%) (Auto) 0.2, Neutrophils # (Auto) 8.3, Lymphocytes # (Auto) 1.3L, Monocytes # (Auto) 0.6, Eosinophils # (Auto) 0.0, Basophils # (Auto) 0.0, Nucleated Red Blood Cells % (auto) 0.0, Anion Gap 13, Glomerular Filtration Rate > 60.0, Calcium Level 10.4H, Human Chorionic Gonadotropin, Qual NEGATIVE 07/03/20 17:32: POC Glucose (Misc Panel) 101, POC Sodium (Misc Panel) 141, POC Potassium (Misc Panel) 2.6*L, POC Chloride (Misc Panel) 98, POC Total CO2 (Misc Panel) 27.0, POC Blood Urea Nitrogen (Misc Panel 15, POC Ionized Calcium (Misc Panel) 4.6, POC Creatinine (Misc Panel) 0.6, POC Hematocrit (Misc Panel) 46.0 07/03/20 21:28: Anion Gap 10, Glomerular Filtration Rate > 60.0, Calcium Level 9.5, Whole Blood Ionized Calcium 4.3L, Magnesium Level 1.5L, Coronavirus (COVID-19)(PCR) NEGATIVE, Influenza Type A (RT-PCR) NEGATIVE, Influenza Type B (RT-PCR) NEGATIVE, Respiratory Syncytial Virus (PCR) NEGATIVE CBC/BMP Laboratory Tests 07/03/20 17:21 07/03/20 21:28 Assessment/Plan 1. 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 HCG neg. UA ordered -advance diet as tolerated, NS 125/ml/hr, tylenol PRN, I&O. follow up BMP 2. Hypokalemia -likely 2/2 emesis -K run ordered by ED -recheck BMP. Mag level ordered 3. DVT prophylaxis -Lovenox Plan / VTE VTE Prophylaxis Ordered?: Yes GME ATTESTATION GME ATTESTATION My faculty preceptor for this patient encounter was physically present during the encounter and was fully available. All aspects of the patient interview, examination, medical decision making process, and medical care plan development were reviewed and approved by the faculty preceptor. The faculty preceptor is aware and concurs with the plan as stated in the body of this note and will attest to such by his/her cosignature. ATTENDING NOTE I, Elie Love DO, performed a history and physical examination of the patient and discussed her management with the resident, Lina Cardenas DO. I reviewed the resident's note and agree with the documented findings and plan of care. LINA CARDENAS DO Jul 03, 2020 23:27 ELIE LOVE DO Jul 04, 2020 08:25
[2020-07-04 00:30] VITALS: BP 135/85
[2020-07-04] MEDS ORDERED: PROMETHAZINE INJ 25 MG/ML VIAL (J2550) IV PRN (00:30)
[2020-07-04] MEDS: NS 1,000 ML IV SCH ×2 (00:34→08:25)
[2020-07-04] MEDS ORDERED: MAGNESIUM OXIDE 400MG TAB (MAG-OX) PO ONE (00:45)
[2020-07-04] MEDS: PROMETHAZINE INJ 25 MG/ML VIAL (J2550) IV PRN ×2 (01:23→07:02)
[2020-07-04] MEDS ORDERED: ONDANSETRON 4MG/2ML VIAL IV PRN (04:30)
[2020-07-04] MEDS ORDERED: diphenhydrAMINE 50MG/ML VIAL (J1200) IV ONE (04:45)
[2020-07-04 06:32] LABS: BASO % 0.4 % (0.0-1.0); EOS % 0.3 % (0.0-3.0); HEMATOCRIT 36.5 % (36.0-47.0); LYMPH # 2.3 10^3/uL (1.5-5.0); LYMPH % 29.5 % (24.0-44.0); MEAN CORPUSCULAR HGB CONC 31.5 g/dl (32.0-36.5); MEAN CORPUSCULAR VOLUME 82.4 fl (80.0-96.0); MONO # 0.6 10^3/uL (0.0-0.8); MONO % 7.7 % (2.0-8.0); NEUTROPHILS # 4.7 10^3/uL (1.5-8.5); NEUTROPHILS % 61.8 % (36.0-66.0); PLATELET COUNT, AUTOMATED 280 10^3/uL (150-450); RED BLOOD COUNT 4.43 10^6/uL (4.00-5.40); WHITE BLOOD COUNT 7.7 10^3/uL (4.0-10.0)
[2020-07-04 06:42] LABS: HEMOGLOBIN 11.5 g/dl (12.0-15.5)
[2020-07-04 06:51] LABS: BLOOD UREA NITROGEN 12 MG/DL (7-18); CALCIUM LEVEL 8.4 MG/DL (8.5-10.1); CARBON DIOXIDE LEVEL 27 MEQ/L (21-32); CHLORIDE LEVEL 110 MEQ/L (98-107); CREATININE FOR GFR 0.51 MG/DL (0.55-1.30); GLOMERULAR FILTRATION RATE > 60.0 (>60); GLUCOSE, FASTING 90 MG/DL (70-100); POTASSIUM SERUM 3.2 MEQ/L (3.5-5.1); SODIUM LEVEL 146 MEQ/L (136-145)
[2020-07-04] MEDS ORDERED: CALCIUM CARBONATE 500 MG CHEW U/D PO ONE (07:00)
[2020-07-04] MEDS ORDERED: ENOXAPARIN 40MG/0.4ML SYRINGE (J1650 PER 10MG) SC SCH (09:00)
[2020-07-04] MEDS: POTASSIUM CHLORIDE 10 MEQ SR TABLET PO SCH ×2 (09:26→12:42)
[2020-07-04 09:40] LABS: FERRITIN 14 NG/ML (8-252); IRON (FE) 57 UG/DL (50-170); MAGNESIUM LEVEL 2.3 MG/DL (1.8-2.4); PERCENT SATURATION 14.7 % (13.2-45.0); TOTAL IRON BINDING CAPACITY 389 UG/DL (250-450)
[2020-07-04] MEDS ORDERED: FERR325T3 PO (13:38)
--- NOTE | 2020-07-04 13:55 | DS.PDOC ---
Discharge Summary General Date of Admission Jul 03, 2020 at 16:10 Date of Discharge 07/04/20 Attending Physician: TRACY MURILLO MD Discharge Summary PROCEDURES PERFORMED DURING STAY: None. ADMITTING DIAGNOSES: 1. Hyperemesis, electrolyte abnormalities. DISCHARGE DIAGNOSES: 1. Hyperemesis, electrolyte abnormalities, dehydration, iron deficiency. COMPLICATIONS/CHIEF COMPLAINT: Cannabis Hyperemesis Syndrome, Hypokalemia. HISTORY OF PRESENT ILLNESS: 24-year-old female was admitted for hyperemesis causing dehydration and significant electrolyte abnormalities. Patient was unab le to take anything by mouth and required maintenance fluids as well. She received IV medication to treat nausea and has remained asymptomatic overnight. She was resuscitated with IV fluids and has been receiving maintenance fluids overnight. She is seen in the morning, comfortable, at baseline, without any complaints or symptoms at this time. Her liquid diet was advanced to a regular diet which she tolerated well and remained asymptomatic. Patient's electrolytes were supplemented appropriately. Her workup also showed iron deficiency, hemoglobin acceptable, will be discharged home on by mouth iron supplementation. Patient is hemodynamically stable for discharge and outpatient follow-up with PCP in 1-2 weeks. Patient is agreeable with this plan at this time. HOSPITAL COURSE: As above. DISCHARGE MEDICATIONS: Please see below. ALLERGIES: Please see below. PHYSICAL EXAMINATION: VITAL SIGNS: Please see below. GENERAL: No distress HEENT: Normocephalic, atraumatic, moist mucous membranes NECK: Supple CARDIOVASCULAR EXAMINATION: S1, S2, no murmurs RESPIRATORY EXAMINATION: Clear to auscultation, no wheezing ABDOMINAL EXAMINATION: Soft, nontender, nondistended, positive bowel sounds EXTREMITIES: Range of motion intact SKIN: No rash NEUROLOGICAL EXAMINATION: Alert and oriented 3, no focal deficits PSYCHIATRIC EXAMINATION: Calm and cooperative LABORATORY DATA: Please see below. PROGNOSIS: Fair ACTIVITY: As tolerated. DIET: Regular DISCHARGE PLAN: Follow-up with PCP in 1-2 weeks DISPOSITION: Home. DISCHARGE INSTRUCTIONS: 1. As above. DISCHARGE CONDITION: Stable]. TIME SPENT ON DISCHARGE: Greater than [15] minutes. Vital Signs/I&Os Vital Signs Date Time Temp Pulse Resp B/P (MAP) Pulse Ox O2 Delivery O2 Flow Rate FiO2 07/04/20 00:30 99.6 69 18 135/85 (102) 100 Room Air I&O- Last 24 Hours up to 6 AM 07/04/20 06:00 Intake Total 1750 ml Output Total 0 ml Balance 1750 ml Laboratory Data Labs 24H Laboratory Tests 2 07/03/20 17:21: Immature Granulocyte % (Auto) 0.3, Neutrophils (%) (Auto) 81.5H, Lymphocytes (%) (Auto) 12.4L, Monocytes (%) (Auto) 5.6, Eosinophils (%) (Auto) 0.0, Basophils (%) (Auto) 0.2, Neutrophils # (Auto) 8.3, Lymphocytes # (Auto) 1.3L, Monocytes # (Auto) 0.6, Eosinophils # (Auto) 0.0, Basophils # (Auto) 0.0, Nucleated Red Blood Cells % (auto) 0.0, Anion Gap 13, Glomerular Filtration Rate > 60.0, Calcium Level 10.4H, Human Chorionic Gonadotropin, Qual NEGATIVE 07/03/20 17:32: POC Glucose (Misc Panel) 101, POC Sodium (Misc Panel) 141, POC Potassium (Misc Panel) 2.6*L, POC Chloride (Misc Panel) 98, POC Total CO2 (Misc Panel) 27.0, POC Blood Urea Nitrogen (Misc Panel 15, POC Ionized Calcium (Misc Panel) 4.6, POC Creatinine (Misc Panel) 0.6, POC Hematocrit (Misc Panel) 46.0 07/03/20 21:28: Anion Gap 10, Glomerular Filtration Rate > 60.0, Calcium Level 9.5, Whole Blood Ionized Calcium 4.3L, Magnesium Level 1.5L, Coronavirus (COVID-19)(PCR) NEGATIVE , Influenza Type A (RT-PCR) NEGATIVE, Influenza Type B (RT-PCR) NEGATIVE, Respiratory Syncytial Virus (PCR) NEGATIVE 07/03/20 23:36: Urine Color YELLOW, Urine Appearance CLOUDYH, Urine pH 6.0, Urine Specific [place] 1.028, Urine Protein 1+H, Urine Glucose (UA) NEGATIVE, Urine Ketones 1+H, Urine Blood NEGATIVE, Urine Nitrite NEGATIVE, Urine Bilirubin NEGATIVE, Urine Urobilinogen 4.0H, Urine Leukocyte Esterase NEGATIVE, Urine WBC (Auto) 3, Urine RBC (Auto) 2, Urine Hyaline Casts (Auto) 0, Urine Bacteria (Auto) 1+H, Urine Squamous Epithelial Cells 11, Urine Mucus (Auto) SMALL, Urine Sperm (Auto) 07/04/20 06:09: Immature Granulocyte % (Auto) 0.3, Neutrophils (%) (Auto) 61.8, Lymphocytes (%) (Auto) 29.5, Monocytes (%) (Auto) 7.7, Eosinophils (%) (Auto) 0.3, Basophils (%) (Auto) 0.4, Neutrophils # (Auto) 4.7, Lymphocytes # (Auto) 2.3, Monocytes # (Auto) 0.6, Eosinophils # (Auto) 0.0, Basophils # (Auto) 0.0, Nucleated Red Blood Cells % (auto) 0.0, Anion Gap 9, Glomerular Filtration Rate > 60.0, Calcium Level 8.4L, Phosphorus Level 4.0, Magnesium Level 2.3, Iron Level 57, Total Iron Binding Capacity 389, Transferrin % Saturation 14.7, Ferritin 14 CBC/BMP Laboratory Tests 07/03/20 17:21 07/03/20 21:28 07/04/20 06:09 Microbiology Microbiology 07/03/20 Blood Culture, Received Pending 07/03/20 Blood Culture, Received Pending Discharge Medications Scheduled Ferrous Sulfate (Ferrous Sulfate) 325 Mg Tablet., 1 TAB PO BID Allergies Coded Allergies: lactose (Verified Allergy, Unknown, 05/08/19) TRACY MURILLO MD Jul 04, 2020 13:55
[2020-07-04 14:00] VITALS: BP 111/80
== END 2020-07-04 14:55 | disposition home or self-care (01) ==
LOC: M ED 16:09 → M ED INP 16:10 → M MS5PR 07-04 00:16
PROVIDERS: ADMIT Internal Medicine; ATTEND Internal Medicine
DX: F12.288 Cannabis dependence with other cannabis-induced disorder (principal); E87.6 Hypokalemia; E86.0 Dehydration; D50.9 Iron deficiency anemia, unspecified; E73.9 Lactose intolerance, unspecified
CPT/HCPCS: 36415; 80047; 80048; 81001; 82330; 82728; 83550; 83735; 84100; 84703; 85025; 87040; 87631; 96361; 96372; 96374; 96375; 96376; 99284; J1200; J1630; J1650; J3475

== ENCOUNTER 2020-07-18 07:50 | Emergency (ER) | payer OTHER ==
[~2020-07-18] VITALS: Ht 160 cm; Wt 63.7 kg
[~2020-07-18 07:50] MED LIST changes: +FERR325T3 PO; +TAB-TAB3 PO
[2020-07-18] MEDS ORDERED: HALOPERIDOL 5MG/ML VIAL (J1630 PER 1) IV ONE ×2 (08:10→09:00)
[2020-07-18] MEDS ORDERED: NS 1,000 ML IV ONE (08:10)
[2020-07-18] MEDS ORDERED: CAPSAICIN 0.025% CR 60 GM TOP ONE (08:10)
[2020-07-18] MEDS ORDERED: PROMETHAZINE INJ 25 MG/ML VIAL (J2550) IV ONE (09:35)
[2020-07-18] MEDS ORDERED: ONDANSETRON 4MG/2ML VIAL IV ONE (11:05)
--- NOTE | 2020-07-18 11:12 | REP ---
INDICATION: vomiting COMPARISON: None. TECHNIQUE: Upright view of the chest with supine and upright views of the abdomen and pelvis. FINDINGS: Frontal upright view of the chest demonstrates no acute cardiopulmonary process or free air below the diaphragm to suspect pneumoperitoneum. Supine and upright views of the abdomen and pelvis demonstrate nonspecific bowel gas pattern without obstruction or perforation. No organomegaly. Possible 2 mm nonobstructing left renal calculus. Skeletal structures normal for age. IMPRESSION: Nonspecific bowel gas pattern. Possible 2 mm nonobstructing left renal calculus. <Electronically signed by Bill Tyson > 07/18/20 [id number]
[2020-07-18 11:32] VITALS: BP 125/77
[2020-07-18 11:47] LABS: ALBUMIN 3.8 GM/DL (3.2-5.2); BILIRUBIN,DIRECT 0.2 MG/DL (0.0-0.2); BILIRUBIN,TOTAL 0.6 MG/DL (0.2-1.0); TOTAL PROTEIN 6.7 GM/DL (6.4-8.2)
== END 2020-07-18 11:53 | disposition home or self-care (01) ==
LOC: M ED 07:50
DX: F12.188 Cannabis abuse with other cannabis-induced disorder (principal); N20.0 Calculus of kidney
CPT/HCPCS: 36415; 74021; 80047; 80076; 83690; 84702; 96361; 96374; 96375; 96376; 99284; J1630; J2405

== ENCOUNTER 2020-08-20 11:29 | Emergency (ER) | payer OTHER ==
[~2020-08-20] VITALS: Ht 160 cm; Wt 61.4 kg
[2020-08-20] MEDS ORDERED: ONDANSETRON 4MG/2ML VIAL IV ONE (12:15)
[2020-08-20] MEDS ORDERED: NS 1,000 ML IV ONE (12:15)
[2020-08-20 12:43] LABS: AMPHETAMINES LEVEL URINE NEGATIVE (NEGATIVE); BARBITURATES URINE NEGATIVE (NEGATIVE); BENZODIAZEPINES URINE NEGATIVE (NEGATIVE); CANNABINOIDS URINE POSITIVE (NEGATIVE); COCAINE METABOLITE URINE NEGATIVE (NEGATIVE); METHADONE URINE NEGATIVE (NEGATIVE); OPIATES URINE NEGATIVE (NEGATIVE); PHENCYCLIDINE URINE NEGATIVE (NEGATIVE)
[2020-08-20 12:53] LABS: BASO % 0.3 % (0.0-1.0); HEMATOCRIT 43.8 % (36.0-47.0); HEMOGLOBIN 14.4 g/dl (12.0-15.5); LYMPH # 1.1 10^3/uL (1.5-5.0); LYMPH % 8.8 % (24.0-44.0); MEAN CORPUSCULAR HGB CONC 32.9 g/dl (32.0-36.5); MONO # 0.7 10^3/uL (0.0-0.8); MONO % 5.9 % (2.0-8.0); NEUTROPHILS # 10.2 10^3/uL (1.5-8.5); NEUTROPHILS % 84.8 % (36.0-66.0); PLATELET COUNT, AUTOMATED 386 10^3/uL (150-450); RED BLOOD COUNT 5.34 10^6/uL (4.00-5.40)
[2020-08-20 13:23] LABS: ALBUMIN 4.9 GM/DL (3.2-5.2); ALT/SGPT 22 U/L (12-78); BILIRUBIN,DIRECT 0.3 MG/DL (0.0-0.2); BILIRUBIN,TOTAL 1.1 MG/DL (0.2-1.0); BLOOD UREA NITROGEN 17 MG/DL (7-18); CALCIUM LEVEL 10.6 MG/DL (8.5-10.1); CARBON DIOXIDE LEVEL 28 MEQ/L (21-32); CHLORIDE LEVEL 99 MEQ/L (98-107); CK-MB VALUE MASS < 1.0 NG/ML (<3.6); CPK CREATINE PHOSPHOKINASE 78 U/L (26-192); CREATININE FOR GFR 0.81 MG/DL (0.55-1.30); GLOMERULAR FILTRATION RATE > 60.0 (>60); GLUCOSE, FASTING 108 MG/DL (70-100); LIPASE 75 U/L (73-393); MAGNESIUM LEVEL 1.9 MG/DL (1.8-2.4); MB/CK RELATIVE INDEX 1.28 (< OR =4); POTASSIUM SERUM 3.3 MEQ/L (3.5-5.1); SODIUM LEVEL 139 MEQ/L (136-145); TOTAL PROTEIN 8.5 GM/DL (6.4-8.2); TROPONIN I < 0.02 NG/ML (< 0.10)
[2020-08-20] MEDS ORDERED: HALOPERIDOL 5MG/ML VIAL (J1630 PER 1) IV ONE (13:40)
[2020-08-20] MEDS ORDERED: KCL 10MEQ/100ML SWI (KRUN) 10 MEQ in IV 1 EA IV ONE (13:40)
[2020-08-20 15:51] VITALS: BP 131/79
--- NOTE | 2020-08-21 17:53 | ECGEPIP ---
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
== END 2020-08-20 15:54 | disposition home or self-care (01) ==
LOC: M ED 11:29
DX: F12.188 Cannabis abuse with other cannabis-induced disorder (principal); E86.0 Dehydration; E87.6 Hypokalemia; K59.00 Constipation, unspecified
CPT/HCPCS: 80048; 80076; 80307; 81001; 82550; 82553; 83690; 83735; 85025; 93005; 93041; 94760; 96361; 96365; 96375; 99285; J1630; J2405

== ENCOUNTER 2020-09-19 04:59 | Emergency (ER) | payer OTHER ==
[~2020-09-19] VITALS: Ht 160 cm; Wt 67.0 kg
[2020-09-19 05:40] LABS: BASO % 0.2 % (0.0-1.0); HEMATOCRIT 44.1 % (36.0-47.0); HEMOGLOBIN 14.6 g/dl (12.0-15.5); LYMPH # 2.2 10^3/uL (1.5-5.0); LYMPH % 16.6 % (24.0-44.0); MEAN CORPUSCULAR HEMOGLOBIN 27.6 pg (27.0-33.0); MEAN CORPUSCULAR HGB CONC 33.1 g/dl (32.0-36.5); MEAN CORPUSCULAR VOLUME 83.4 fl (80.0-96.0); MONO # 0.9 10^3/uL (0.0-0.8); MONO % 6.7 % (2.0-8.0); NEUTROPHILS % 76.1 % (36.0-66.0); PLATELET COUNT, AUTOMATED 384 10^3/uL (150-450); RED BLOOD COUNT 5.29 10^6/uL (4.00-5.40); WHITE BLOOD COUNT 13.1 10^3/uL (4.0-10.0)
[2020-09-19] MEDS ORDERED: ONDANSETRON 4MG/2ML VIAL IV ONE (06:15)
[2020-09-19] MEDS ORDERED: NS 1,000 ML IV ONE (06:15)
[2020-09-19] MEDS ORDERED: ACETAMINOPHEN 500 MG TAB PO ONE (06:15)
[2020-09-19 06:22] LABS: ALBUMIN 4.7 GM/DL (3.2-5.2); ALT/SGPT 23 U/L (12-78); BILIRUBIN,DIRECT 0.3 MG/DL (0.0-0.2); BILIRUBIN,TOTAL 0.9 MG/DL (0.2-1.0); BLOOD UREA NITROGEN 11 MG/DL (7-18); CALCIUM LEVEL 10.1 MG/DL (8.5-10.1); CARBON DIOXIDE LEVEL 29 MEQ/L (21-32); CHLORIDE LEVEL 98 MEQ/L (98-107); CREATININE FOR GFR 1.03 MG/DL (0.55-1.30); GLOMERULAR FILTRATION RATE > 60.0 (>60); GLUCOSE, FASTING 125 MG/DL (70-100); LIPASE 34 U/L (73-393); POTASSIUM SERUM 3.3 MEQ/L (3.5-5.1); SODIUM LEVEL 140 MEQ/L (136-145); TOTAL PROTEIN 8.4 GM/DL (6.4-8.2)
[2020-09-19 06:30] LABS: HCG, SERUM QUALITATIVE NEGATIVE (NEGATIVE)
[2020-09-19] MEDS ORDERED: POTASSIUM CHLORIDE 10 MEQ SR TABLET PO ONE (06:50)
--- NOTE | 2020-09-19 07:08 | REPVR ---
PROCEDURE INFORMATION: Exam: XR Complete Acute Abdomen Series Exam date and time: 09/19/2020 6:41 AM Age: 25 years old Clinical indication: Abdominal pain; Acute TECHNIQUE: Imaging protocol: XR complete acute abdomen series, including 2 or more views of the abdomen and a single view chest. COMPARISON: CR Abdomen,Flat Upright,PA CHEST 07/18/2020 10:47 AM FINDINGS: Lungs: Normal. No consolidation. Pleural spaces: Normal. No pleural effusions. No pneumothorax. Heart/Mediastinum: Normal. No cardiomegaly. Gastrointestinal tract: Normal. No bowel dilation. Intraperitoneal space: Normal. No free air. Organs: There is a small density which could represent a stone at the left kidney but it is only seen on the supine view and not as dense as the finding on the prior x-ray series. Vasculature: There are multiple calcifications in the pelvis, presumably phleboliths, also present previously. Bones/joints: Normal. No acute fracture. Soft tissues: Normal. IMPRESSION: 1. Possible small left renal stone. 2. Clear lungs. 3. Normal bowel gas pattern. Electronically signed by: Mandy Parry On 09/19/2020 07:08:26 AM
[2020-09-19] MEDS ORDERED: HALOPERIDOL 5MG/ML VIAL (J1630 PER 1) IV STA (07:15)
[2020-09-19] MEDS ORDERED: CAPSAICIN 0.025% CR 60 GM TOP ONE (07:20)
[2020-09-19 08:51] VITALS: BP 121/69
== END 2020-09-19 08:54 | disposition home or self-care (01) ==
LOC: M ED 04:59
DX: F12.188 Cannabis abuse with other cannabis-induced disorder (principal); R10.9 Unspecified abdominal pain; E86.0 Dehydration; N20.0 Calculus of kidney; E87.6 Hypokalemia; F19.10 Other psychoactive substance abuse, uncomplicated
CPT/HCPCS: 74021; 80048; 80076; 81001; 83690; 84703; 85025; 96361; 96374; 96375; 99284; J1630; J2405

== ENCOUNTER → 2022-05-28 | Outpatient (CLI) | payer MEDICAID ==
[~2022-05-28] MED LIST changes: +OMEP40CA4 PO; -OMEP40CA97 PO
== END ==
LOC: M OUTALCOH 07:55
PROVIDERS: ATTEND Psychiatry & Neurology Psychiatry
DX: Z13.39 Encounter for screening examination for other mental health and behavioral disorders (principal)

== ENCOUNTER 2022-06-16 11:30 | Outpatient (RCR) | payer MEDICAID | END 2022-06-17 | LOC: M OUTALCOH 11:30 | PROVIDERS: ATTEND Psychiatry & Neurology Psychiatry | DX: F10.20 Alcohol dependence, uncomplicated (principal); F12.20 Cannabis dependence, uncomplicated; F17.200 Nicotine dependence, unspecified, uncomplicated ==

== ENCOUNTER 2022-07-14 11:03 | Outpatient (RCR) | payer MEDICAID | END 2022-07-15 | LOC: M OUTALCOH 11:03 | PROVIDERS: ATTEND Psychiatry & Neurology Psychiatry | DX: F10.20 Alcohol dependence, uncomplicated (principal); F12.20 Cannabis dependence, uncomplicated; F17.200 Nicotine dependence, unspecified, uncomplicated ==

== ENCOUNTER 2022-08-14 16:00 | Outpatient (RCR) | payer MEDICAID | END 2022-08-15 | LOC: M OUTALCOH 16:00 | PROVIDERS: ATTEND Psychiatry & Neurology Psychiatry | DX: F10.20 Alcohol dependence, uncomplicated (principal); F12.20 Cannabis dependence, uncomplicated; F17.200 Nicotine dependence, unspecified, uncomplicated ==

== ENCOUNTER 2022-09-11 16:00 | Outpatient (RCR) | payer MEDICAID | END 2022-09-14 | LOC: M OUTALCOH 16:00 | PROVIDERS: ATTEND Psychiatry & Neurology Psychiatry | DX: F10.20 Alcohol dependence, uncomplicated (principal); F12.20 Cannabis dependence, uncomplicated; F17.200 Nicotine dependence, unspecified, uncomplicated ==

== ENCOUNTER 2022-10-08 10:00 | Outpatient (RCR) | payer MEDICAID | END 2022-10-15 | LOC: M OUTALCOH 10:00 | PROVIDERS: ATTEND Psychiatry & Neurology Psychiatry | DX: F10.20 Alcohol dependence, uncomplicated (principal); F12.20 Cannabis dependence, uncomplicated; F17.200 Nicotine dependence, unspecified, uncomplicated ==

== ENCOUNTER → 2023-03-18 | Outpatient (REF) | payer MEDICAID ==
[2023-03-19 12:39] LABS: HEMOGLOBIN A1c 4.6 % (4.0-6.0)
[2023-03-19 12:55] LABS: ALBUMIN 3.9 G/DL (3.2-5.2); ALKALINE PHOSPHATASE 57 U/L (46-116); ALT/SGPT 23 U/L (7.0-40); AST/SGOT 17 U/L (<34); BILIRUBIN,TOTAL 0.5 MG/DL (0.3-1.2); BLOOD UREA NITROGEN 7 MG/DL (9-23); CALCIUM LEVEL 9.1 MG/DL (8.5-10.1); CARBON DIOXIDE LEVEL 28 MMOL/L (20-31); CHLORIDE LEVEL 107 MMOL/L (98-107); CHOLESTEROL LEVEL 150 MG/DL (<200); CREATININE FOR GFR 0.61 MG/DL (0.55-1.30); GLOMERULAR FILTRATION RATE > 60.0 (>60); GLUCOSE, FASTING 88 MG/DL (60-100); POTASSIUM SERUM 4.4 MMOL/L (3.5-5.1); SODIUM LEVEL 140 MMOL/L (136-145); TOTAL PROTEIN 6.3 G/DL (5.7-8.2); TRIGLYCERIDES LEVEL 50 MG/DL (<150)
[2023-03-19 13:40] LABS: CHOLESTEROL RISK RATIO 2.81 (<5); HDL CHOLESTEROL 53.3 MG/DL (>40); LDL CHOLESTEROL 86.7 MG/DL (<100); NON-HDL-C 96.7 MG/DL
== END ==
LOC: M LAB REF 11:13
PROVIDERS: ATTEND Nurse Practitioner Family
DX: Z13.1 Encounter for screening for diabetes mellitus (principal); Z13.220 Encounter for screening for lipoid disorders

== ENCOUNTER → 2023-03-25 | Outpatient (REF) | payer MEDICAID | LOC: M LAB REF 16:42 | PROVIDERS: ATTEND Nurse Practitioner Family | DX: Z12.4 Encounter for screening for malignant neoplasm of cervix (principal); R87.5 Abnormal microbiological findings in specimens from female genital organs ==